=== PATIENT | female | born 1960 | race Caucasian/White ===

== ENCOUNTER 2024-01-29 12:09 | Inpatient (IN) | payer OTHER ==
--- NOTE | 2024-01-29 12:31 | ED ---
SOB HPI - General Stated Complaint: SOB Time Seen by Provider: 01/29/24 12:10 Source: patient, EMS, RN notes reviewed, old records reviewed Mode of arrival: EMS Limitations: no limitations - History of Present Illness Initial Comments: 63-year-old female with a recent hospitalization at [facility] who has a history of diabetes COPD is a half a pack a day smoker has a chronic indwelling Horn catheter at this time who presents from home with complaints of shortness of breath that started last night she has a difficult time ambulating she states she has basically been sitting in her chair since being released from the hospital earlier this week. She had suffered frequent falls the states she has some fractures in her back she denies any overt fevers chills or sweats any dysuria any hematuria she does have decreased oral intake. No cough at this time and again no fevers chills or sweats reported no phlegm production. MD Complaint: shortness of breath - Related Data Home Medications Medication Instructions Recorded Confirmed Acetaminophen Tab [Tylenol] 650 mg PO Q6H PRN 01/29/24 01/29/24 Amoxic-Pot Clav 500-125 mg 1 tab PO Q8H 01/29/24 01/29/24 [Augmentin 500-125 mg] Budesonide/Formoterol Fumarate 2 puff INHALATION RT-BID 01/29/24 01/29/24 [Symbicort 160-4.5 Mcg Inhaler] Escitalopram [Lexapro] 10 mg PO DAILY 01/29/24 01/29/24 Fluconazole 200 mg PO DAILY 01/29/24 01/29/24 Insulin Glargine,Hum.rec.anlog 15 units SQ HS 01/29/24 01/29/24 [Lantus Solostar Pen] Insulin Lispro [Insulin Lispro 5 units SQ TID-W/MEALS 01/29/24 01/29/24 Kwikpen U-100] Lactobacillus Rhamnosus GG 1 cap PO BID 01/29/24 01/29/24 [Culturelle] Melatonin 3 mg PO HS PRN 01/29/24 01/29/24 Montelukast [Singulair] 10 mg PO HS 01/29/24 01/29/24 Nicotine 14Mg/24Hr Patch [Habitrol 1 patch TRANSDERM DAILY 01/29/24 01/29/24 14Mg/24Hr Patch] Pioglitazone HCl 15 mg PO DAILY 01/29/24 01/29/24 amLODIPine [Norvasc] 5 mg PO BID 01/29/24 01/29/24 guaiFENesin [guaiFENesin ER] 600 mg PO BID 01/29/24 01/29/24 oxyCODONE-APAP 7.5-325MG [Percocet 1 tab PO TID PRN 01/29/24 01/29/24 7.5-325 mg] Allergies Allergy/AdvReac Type Severity Reaction Status Date / Time No Known Allergies Allergy Verified 01/29/24 12:57 Review of Systems ROS Statement: Those systems with pertinent positive or pertinent negative responses have been documented in the HPI. ROS Other: All systems not noted in ROS Statement are negative. Past Medical History Past Medical History: COPD, Diabetes Mellitus, Hyperlipidemia, Hypertension History of Any Multi-Drug Resistant Organisms: None Reported Past Surgical History: Adenoidectomy, Hysterectomy, Tubal Ligation Additional Past Surgical History / Comment(s): 2 tumors removals Past Psychological History: Depression Smoking Status: Current every day smoker Past Alcohol Use History: None Reported Past Drug Use History: None Reported General Exam - General Exam Comments Initial Comments: This is a well-developed frail-appearing female who is awake alert oriented x 4 Limitations: no limitations General appearance: alert, anxious Head exam: Present: atraumatic, normocephalic, normal inspection Eye exam: Present: normal appearance, PERRL, EOMI. Absent: scleral icterus, conjunctival injection, periorbital swelling ENT exam: Present: mucous membranes dry Neck exam: Present: normal inspection, full ROM, other (No stridor JVD or bruits). Absent: tenderness, meningismus, lymphadenopathy Respiratory exam: Present: chest wall tenderness (Palpation along the right costal sternal margin with no step-off or crepitation), decreased breath sounds. Absent: respiratory distress, wheezes, rales, rhonchi, stridor Cardiovascular Exam: Present: regular rate, normal rhythm, normal heart sounds. Absent: systolic murmur, diastolic murmur, rubs, gallop, clicks GI/Abdominal exam: Present: soft, normal bowel sounds. Absent: distended, tenderness, guarding, rebound, rigid, bruit, pulsatile mass External exam: Present: other (Indwelling Horn catheter in place urine appears to be hari clear in the bag somewhat cloudy proximal) Extremities exam: Present: full ROM, normal capillary refill. Absent: tenderness, pedal edema (Trace pedal edema), joint swelling, calf tenderness Back exam: Present: other (Kyphosis with some tenderness noted along the paraspi nous musculature in the lower thoracic region no step-off or crepitation no bruising) Neurological exam: Present: alert, oriented X3, CN II-XII intact Psychiatric exam: Present: normal affect, normal mood Skin exam: Present: warm, dry, intact, normal color. Absent: rash Course Vital Signs 01/29/24 01/29/24 01/29/24 12:15 12:30 13:15 Temperature 97.6 F Pulse Rate 99 92 Respiratory 20 24 20 Rate Blood Pressure 142/82 139/94 O2 Sat by Pulse 84 L 99 Oximetry 01/29/24 01/29/24 01/29/24 14:08 15:22 16:05 Temperature 97.9 F Pulse Rate 88 93 95 Respiratory 19 17 20 Rate Blood Pressure 159/87 162/94 144/92 O2 Sat by Pulse 97 96 95 Oximetry 01/29/24 01/29/24 16:13 16:21 Temperature Pulse Rate 98 93 Respiratory Rate Blood Pressure O2 Sat by Pulse Oximetry - Reevaluation(s) Reevaluation #1: 01/29/24 16:38 Patient did feel much improved after nebulizer treatment. Medical Decision Making - Medical Decision Making I did discuss the findings with the patient and with Dr. Lloyd. The patient does demonstrate evidence of COPD exacerbation hypoxemia dehydration and failure to thrive and pleural effusions. Also some evidence of UTI the patient currently is on antibiotics. Patient will be admitted. Was pt. sent in by a medical professional or institution (, PA, HAND RIGGER, urgent care, hospital, or half-way...) When possible be specific @ -Medics upon arrival Did you speak to anyone other than the patient for history (EMS, parent, family, police, friend...)? What history was obtained from this source @ -Paramedics upon arrival Did you review nursing and triage notes (agree or disagree)? Why? @ -I reviewed and agree with nursing and triage notes Were old charts reviewed (outside hosp., previous admission, EMS record, old EKG, old radiological studies, urgent care reports/EKG's, half-way records)? Report findings @ -Old charts were reviewed Differential Diagnosis (chest pain, altered mental status, abdominal pain women, abdominal pain men, vaginal bleeding, weakness, fever, dyspnea, syncope, headache, dizziness, GI bleed, back pain, seizure, CVA, palpatations, mental health, musculoskeletal)? @ -Dyspnea, chest pain EKG interpreted by me (3pts min.). @ -As above EKG interpreted by me sinus rhythm 95 MT interval 143 QRS duration 89 QT/QTc 343/395 low voltage no acute ST-T wave changes X-rays interpreted by me (1pt min.). @ -Right pleural effusion interpreted by me CT interpreted by me (1pt min.). @ -Bilateral pleural effusions interpreted by me U/S interpreted by me (1pt. min.). @ -None done What testing was considered but not performed or refused? (CT, X-rays, U/S, labs)? Why? @ -None What meds were considered but not given or refused? Why? @ -None Did you discuss the management of the patient with other professionals (professionals i.e. , PA, HAND RIGGER, lab, RT, psych nurse, social group worker, ct manager, teacher, parole hearing officer, case management specialist)? Give summary @ -Dr. Lloyd Was smoking cessation discussed for >3mins.? @ -No Was critical care preformed (if so, how long)? @ -No Were there social determinants of health that impacted care today? How? (Homelessness, low income, unemployed, alcoholism, drug addiction, transportation, low edu. Level, literacy, decrease access to med. care, long term, rehab)? @ -Patient lives alone Was there de-escalation of care discussed even if they declined (Discuss DNR or withdrawal of care, Hospice)? DNR status @ -No What co-morbidities impacted this encounter? (DM, HTN, Smoking, COPD, CAD, Cancer, CVA, ARF, Chemo, Hep., AIDS, mental health diagnosis, sleep apnea, morbid obesity)? @ -COPD, chronic indwelling Horn catheter, smoking Was patient admitted / discharged? Hospital course, mention meds given and route, prescriptions, significant lab abnormalities, going to OR and other pertinent info. @ -Hospital course the patient was admitted for inpatient treatment of COPD exacerbation dehydration pleural effusions Undiagnosed new problem with uncertain prognosis? @ -No Drug Therapy requiring intensive monitoring for toxicity (Heparin, Nitro, Insulin, Cardizem)? @ -No Were any procedures done? @ -No Diagnosis/symptom? @ -Acute COPD exacerbation, hypoxemia, failure to thrive, dehydration, pleural effusions, UTI Acute, or Chronic, or Acute on Chronic? @ -Acute on chronic Uncomplicated (without systemic symptoms) or Complicated (systemic symptoms)? @ -Complicated Side effects of treatment? @ -No Exacerbation, Progression, or Severe Exacerbation? @ -Masturbation Poses a threat to life or bodily function? How? (Chest pain, [place], ND, pneumonia, PE, COPD, DKA, ARF, appy, cholecystitis, CVA, Diverticulitis, Homicidal, Suicidal, threat to staff... and all critical care pts) @ -Tensional - Lab Data Result diagrams: 01/29/24 12:40 01/29/24 12:40 Lab Results 01/29/24 01/29/24 01/29/24 Range/Units 12:39 12:40 12:40 WBC 15.0 H (3.8-10.6) k/uL RBC 4.59 (3.80-5.40) m/uL Hgb 14.7 (11.4-16.0) gm/dL Hct 45.0 (34.0-46.0) % MCV 98.2 (80.0-100.0) fL MCH 32.1 (25.0-35.0) pg MCHC 32.7 (31.0-37.0) g/dL RDW 13.4 (11.5-15.5) % Plt Count 582 H (150-450) k/uL MPV 7.8 Neutrophils % 87 % Lymphocytes % 9 % Monocytes % 3 % Eosinophils % 0 % Basophils % 0 % Neutrophils # 13.1 H (1.3-7.7) k/uL Lymphocytes # 1.3 (1.0-4.8) k/uL Monocytes # 0.4 (0-1.0) k/uL Eosinophils # 0.1 (0-0.7) k/uL Basophils # 0.1 (0-0.2) k/uL PT 10.9 (10.0-12.5) sec INR 1.0 (<1.2) APTT 22.0 (22.0-30.0) sec D-Dimer 5.45 H (<0.60) mg/L FEU Sodium (137-145) mmol/L Potassium (3.5-5.1) mmol/L Chloride (98-107) mmol/L Carbon Dioxide (22-30) mmol/L Anion Gap mmol/L BUN (7-17) mg/dL Creatinine (0.52-1.04) mg/dL Est GFR (CKD-EPI)AfAm (>60 ml/min/1.73 sqM) Est GFR (CKD-EPI)NonAf (>60 ml/min/1.73 sqM) Glucose (74-99) mg/dL POC Glucose (mg/dL) 326 H (70-110) mg/dL POC Glu Accelerator Operator ID Carissa George Plasma Lactic Acid Isaac (0.7-2.0) mmol/L Calcium (8.4-10.2) mg/dL Magnesium (1.6-2.3) mg/dL Total Bilirubin (0.2-1.3) mg/dL AST (14-36) U/L ALT (4-34) U/L Alkaline Phosphatase (38-126) U/L Troponin I (0.000-0.034) ng/mL NT-Pro-B Natriuret Pep pg/mL Total Protein (6.3-8.2) g/dL Albumin (3.5-5.0) g/dL Urine Color Urine Appearance (Clear) Urine pH (5.0-8.0) Ur Specific [place] (1.001-1.035) Urine Protein (Negative) Urine Glucose (UA) (Negative) Urine Ketones (Negative) Urine Blood (Negative) Urine Nitrite (Negative) Urine Bilirubin (Negative) Urine Urobilinogen (<2.0) mg/dL Ur Leukocyte Esterase (Negative) Urine RBC (0-5) /hpf Urine WBC (0-5) /hpf Urine Mucus (None) /hpf Urine Yeast (Budding) (None) /hpf Influenza Type A (PCR) (Not Detectd) Influenza Type B (PCR) (Not Detectd) RSV (PCR) (Not Detectd) SARS-CoV-2 (PCR) (Not Detectd) 01/29/24 01/29/24 01/29/24 Range/Units 12:40 12:40 12:40 WBC (3.8-10.6) k/uL RBC (3.80-5.40) m/uL Hgb (11.4-16.0) gm/dL Hct (34.0-46.0) % MCV (80.0-100.0) fL MCH (25.0-35.0) pg MCHC (31.0-37.0) g/dL RDW (11.5-15.5) % Plt Count (150-450) k/uL MPV Neutrophils % % Lymphocytes % % Monocytes % % Eosinophils % % Basophils % % Neutrophils # (1.3-7.7) k/uL Lymphocytes # (1.0-4.8) k/uL Monocytes # (0-1.0) k/uL Eosinophils # (0-0.7) k/uL Basophils # (0-0.2) k/uL PT (10.0-12.5) sec INR (<1.2) APTT (22.0-30.0) sec D-Dimer (<0.60) mg/L FEU Sodium 133 L (137-145) mmol/L Potassium 4.5 (3.5-5.1) mmol/L Chloride 102 (98-107) mmol/L Carbon Dioxide 27 (22-30) mmol/L Anion Gap 4 mmol/L BUN 15 (7-17) mg/dL Creatinine 0.24 L (0.52-1.04) mg/dL Est GFR (CKD-EPI)AfAm >90 (>60 ml/min/1.73 sqM) Est GFR (CKD-EPI)NonAf >90 (>60 ml/min/1.73 sqM) Glucose 320 H (74-99) mg/dL POC Glucose (mg/dL) (70-110) mg/dL POC Glu Accelerator Operator ID Plasma Lactic Acid Isaac 1.6 (0.7-2.0) mmol/L Calcium 8.8 (8.4-10.2) mg/dL Magnesium 1.8 (1.6-2.3) mg/dL Total Bilirubin 0.6 (0.2-1.3) mg/dL AST 32 (14-36) U/L ALT 33 (4-34) U/L Alkaline Phosphatase 421 H (38-126) U/L Troponin I <0.012 (0.000-0.034) ng/mL NT-Pro-B Natriuret Pep 161 pg/mL Total Protein 5.4 L (6.3-8.2) g/dL Albumin 2.7 L (3.5-5.0) g/dL Urine Color Urine Appearance (Clear) Urine pH (5.0-8.0) Ur Specific [place] (1.001-1.035) Urine Protein (Negative) Urine Glucose (UA) (Negative) Urine Ketones (Negative) Urine Blood (Negative) Urine Nitrite (Negative) Urine Bilirubin (Negative) Urine Urobilinogen (<2.0) mg/dL Ur Leukocyte Esterase (Negative) Urine RBC (0-5) /hpf Urine WBC (0-5) /hpf Urine Mucus (None) /hpf Urine Yeast (Budding) (None) /hpf Influenza Type A (PCR) (Not Detectd) Influenza Type B (PCR) (Not Detectd) RSV (PCR) (Not Detectd) SARS-CoV-2 (PCR) (Not Detectd) 01/29/24 01/29/24 Range/Units 12:40 13:25 WBC (3.8-10.6) k/uL RBC (3.80-5.40) m/uL Hgb (11.4-16.0) gm/dL Hct (34.0-46.0) % MCV (80.0-100.0) fL MCH (25.0-35.0) pg MCHC (31.0-37.0) g/dL RDW (11.5-15.5) % Plt Count (150-450) k/uL MPV Neutrophils % % Lymphocytes % % Monocytes % % Eosinophils % % Basophils % % Neutrophils # (1.3-7.7) k/uL Lymphocytes # (1.0-4.8) k/uL Monocytes # (0-1.0) k/uL Eosinophils # (0-0.7) k/uL Basophils # (0-0.2) k/uL PT (10.0-12.5) sec INR (<1.2) APTT (22.0-30.0) sec D-Dimer (<0.60) mg/L FEU Sodium (137-145) mmol/L Potassium (3.5-5.1) mmol/L Chloride (98-107) mmol/L Carbon Dioxide (22-30) mmol/L Anion Gap mmol/L BUN (7-17) mg/dL Creatinine (0.52-1.04) mg/dL Est GFR (CKD-EPI)AfAm (>60 ml/min/1.73 sqM) Est GFR (CKD-EPI)NonAf (>60 ml/min/1.73 sqM) Glucose (74-99) mg/dL POC Glucose (mg/dL) (70-110) mg/dL POC Glu Accelerator Operator ID Plasma Lactic Acid Isaac (0.7-2.0) mmol/L Calcium (8.4-10.2) mg/dL Magnesium (1.6-2.3) mg/dL Total Bilirubin (0.2-1.3) mg/dL AST (14-36) U/L ALT (4-34) U/L Alkaline Phosphatase (38-126) U/L Troponin I (0.000-0.034) ng/mL NT-Pro-B Natriuret Pep pg/mL Total Protein (6.3-8.2) g/dL Albumin (3.5-5.0) g/dL Urine Color Yellow Urine Appearance Turbid H (Clear) Urine pH 6.0 (5.0-8.0) Ur Specific [place] 1.030 (1.001-1.035) Urine Protein 1+ H (Negative) Urine Glucose (UA) 4+ H (Negative) Urine Ketones 1+ H (Negative) Urine Blood Moderate H (Negative) Urine Nitrite Negative (Negative) Urine Bilirubin Negative (Negative) Urine Urobilinogen <2.0 (<2.0) mg/dL Ur Leukocyte Esterase Large H (Negative) Urine RBC >182 H (0-5) /hpf Urine WBC >182 H (0-5) /hpf Urine Mucus Many H (None) /hpf Urine Yeast (Budding) Many H (None) /hpf Influenza Type A (PCR) Not Detected (Not Detectd) Influenza Type B (PCR) Not Detected (Not Detectd) RSV (PCR) Not Detected (Not Detectd) SARS-CoV-2 (PCR) Not Detected (Not Detectd) Disposition Clinical Impression: Acute exacerbation of chronic obstructive pulmonary disease, Hypoxemia, Urinary tract infection, Pleural effusion, Dehydration, Failure to thrive Disposition: ADMITTED IP TO THIS HOSP Condition: Fair Referrals: Cory Lloyd MD [Primary Care Provider] - 1-2 days Time of Disposition: 16:00 Decision Date: 01/29/24 Decision Time: 16:00
[2024-01-29 12:44] LABS: Glucose,Whole Blood 326 mg/dL (70-110)
[2024-01-29 12:46] LABS: Basophils # (A) 0.1 k/uL (0-0.2); Basophils % (A) 0 %; Eosinophils # (A) 0.1 k/uL (0-0.7); Eosinophils % (A) 0 %; HGB 14.7 gm/dL (11.4-16.0); Lymphocytes # (A) 1.3 k/uL (1.0-4.8); Lymphocytes % (A) 9 %; MCH 32.1 pg (25.0-35.0); MCHC 32.7 g/dL (31.0-37.0); MCV 98.2 fL (80.0-100.0); Mean Platelet Volume 7.8; Monocytes # (A) 0.4 k/uL (0-1.0); Monocytes % (A) 3 %; Neutrophils # (A) 13.1 k/uL (1.3-7.7); Neutrophils % (A) 87 %; Platelet Count 582 k/uL (150-450); RBC 4.59 m/uL (3.80-5.40); RDW 13.4 % (11.5-15.5)
[2024-01-29 12:57] LABS: ALT 33 U/L (4-34); AST 32 U/L (14-36); African American GFR (CKD) >90 (>60 ml/min/1.73 sqM); Albumin 2.7 g/dL (3.5-5.0); Alkaline Phosphatase 421 U/L (38-126); Anion Gap 4 mmol/L; Blood Urea Nitrogen 15 mg/dL (7-17); Calcium 8.8 mg/dL (8.4-10.2); Carbon Dioxide 27 mmol/L (22-30); Chloride 102 mmol/L (98-107); Glucose 320 mg/dL (74-99); Magnesium 1.8 mg/dL (1.6-2.3); Non-African American GFR(CKD) >90 (>60 ml/min/1.73 sqM); Potassium 4.5 mmol/L (3.5-5.1); Sodium 133 mmol/L (137-145); Total Bilirubin 0.6 mg/dL (0.2-1.3); Total Protein 5.4 g/dL (6.3-8.2)
[2024-01-29 13:05] LABS: NT-Pro-B-Type Natriuretic Pept 161 pg/mL
[2024-01-29 13:09] LABS: Prothrombin Time 10.9 sec (10.0-12.5)
--- NOTE | 2024-01-29 13:14 | XR ---
EXAMINATION TYPE: XR chest 2V DATE OF EXAM: 01/29/2024 COMPARISON: NONE HISTORY: Difficulty breathing TECHNIQUE: Frontal and lateral views of the chest are obtained. FINDINGS: There is a moderate right pleural effusion. The left lung is clear. There is no pneumothorax. The heart and pulmonary vasculature are normal. The osseous structures are intact. IMPRESSION: Moderate right pleural effusion.
[2024-01-29] MEDS: SODIUM CHLORIDE 0.9% 1,000 ML IV STA (13:27)
--- NOTE | 2024-01-29 14:19 | CT ---
CTA CHEST EXAMINATION TYPE: CT angio chest DATE OF EXAM: 01/29/2024 INDICATION: Elevated d-dimer, SOB CT DLP: 177.2 mGycm, Automated exposure control for dose reduction was used. CONTRAST: Patient injected with 100 mL of Isovue 370. COMPARISON: None TECHNIQUE: CT of the chest is performed on a spiral scan at 2 mm thick sections. Study is performed with intravenous contrast timed for evaluation for pulmonary embolism. This will limit additional po rtions of the evaluation. 3-D MIP images reconstructed by the technologist are reviewed on the compu ter in the coronal and sagittal planes. FINDINGS: No persistent filling defects are evident to suggest an acute pulmonary embolism. No mediastinal or hilar adenopathy enlarged by CT criteria is evident. The ascending aorta diameter at the level of the main pulmonary artery is 3.2 cm. The main pulmonary artery diameter at the bifurcation is 2.8 cm. Some minimal fluid is at the right apex. There is some mild fluid at the right lateral lung base. A l arge consolidations are at the right dependent lung base is smaller left pleural effusion and adjacen t consolidation. Findings are likely related to compressive atelectasis. Pneumonia could be considere d. Underlying mass is not excluded. Follow up exams can be performed Limited CT sections were through the upper abdomen. Upper abdomen appears unremarkable. IMPRESSION: 1. No acute embolism. 2. Small bilateral pleural effusions with adjacent atelectasis. Correlate for pneumonia. Consider fol low-up examination to document clearing.
[2024-01-29 14:27] LABS: Appearance,Urine Turbid (Clear); Bilirubin,Urine Negative (Negative); Blood,Urine Moderate (Negative); Budding Yeast,Urine Many /hpf; Color,Urine Yellow; Glucose,Urine (UA) 4+ (Negative); Ketones,Urine 1+ (Negative); Leukocyte Esterase,Urine Large (Negative); Mucus,Urine Many /hpf; Nitrite,Urine Negative (Negative); Protein,Urine 1+ (Negative); RBC,Urine >182 /hpf (0-5); Urobilinogen,Urine <2.0 mg/dL (<2.0); WBC,Urine >182 /hpf (0-5)
[2024-01-29] MEDS: IPRATROPIUM-ALBUTEROL 3 ML NEB INHALATION STA (16:13)
[2024-01-29] MEDS ORDERED: NALOXONE 0.4 MG/ML 1 ML VIAL IVP PRN (16:44)
[2024-01-29] MEDS: AMOXIC-POT CLAV 500-125 MG 1 EACH TAB PO SCH (17:33)
[2024-01-29] MEDS: INSULIN ASPART (NovoLOG) 100 UNIT/ML VIAL SQ SCH (17:34)
[2024-01-29] MEDS: methylPREDNISolone SOD SUCCI 125 MG/2 ML VIAL IV STA (17:52)
[2024-01-29] MEDS: oxyCODONE-APAP 7.5-325MG 1 EACH TAB PO PRN (18:27)
[2024-01-29] MEDS: IPRATROPIUM-ALBUTEROL 3 ML NEB INHALATION SCH (19:38)
[2024-01-29] MEDS: SYMBICORT 160-4.5 MCG INHALER INHALATION SCH (19:38)
[2024-01-29 20:45] LABS: Glucose,Whole Blood 384 mg/dL (70-110)
[2024-01-29] MEDS: INSULIN DETEMIR (LEVEMIR) 100 UNIT/ML SYR SQ SCH (20:55)
[2024-01-29] MEDS: MELATONIN 3 MG TABLET PO PRN (20:55)
[2024-01-29] MEDS: LACTOBACILLUS ACIDOPHILUS/PECT 1 EACH CAPSULE PO SCH (20:55)
[2024-01-29] MEDS: MONTELUKAST 10 MG TAB PO SCH (20:55)
[2024-01-29] MEDS: guaiFENesin 600 MG TABLET.ER PO SCH (20:55)
[2024-01-29] MEDS: amLODIPine 5 MG TAB PO SCH (20:55)
[2024-01-29] MEDS: PIPERACILLIN-TAZOBACTAM 3.375 GM in SODIUM CHLORIDE 0.9% 100 ML IVPB SCH (20:56)
[2024-01-30] MEDS: methylPREDNISolone SOD SUCCI 125 MG/2 ML VIAL IV SCH (00:07)
--- NOTE | 2024-01-30 02:33 | HP ---
HISTORY AND PHYSICAL HISTORY OF PRESENT ILLNESS: 63-year-old female with recent hospitalization for diabetes, COPD, nicotine addiction, chronic indwelling Horn, shortness of breath, difficulty time ambulating, in a chair since being home, some fractures in her back, decreased oral intake. No fever or chills. HOME MEDICINES: 1. Augmentin q.8 hours. 2. Symbicort. 3. Lexapro. 4. Fluconazole. 5. Lantus insulin. 6. Singulair. 7. Nicotine patch. 8. Pioglitazone. 9. Amlodipine. 10.Oxycodone. 11.Guanfacine. 12.Lactobacillus. 13.Melatonin. PAST MEDICAL HISTORY: COPD, diabetes mellitus, hypertension, dyslipidemia. REVIEW OF SYSTEMS: 14-point review of systems otherwise negative. SOCIAL HISTORY: Current everyday smoker. PHYSICAL EXAMINATION: VITAL SIGNS: Temp 97.6, pulse 90 to 92, respiratory rate 18 to 24, blood pressure 140s to 160s over 80s to 90s, O2 saturation 84 on admission, 99 currently on 2 L. GENERAL: She is thin, cachectic. CARDIOVASCULAR: S1, S2. LUNGS: Scattered rhonchi and wheeze. GI: Soft. HEMATOLOGY: Negative Homans. PSYCH: Fair mood and affect. NEUROLOGIC: Cranial nerves intact. Pupils equal, round, reactive. LABORATORY DATA: CTA is negative for PE leukocytosis. White count 15, hemoglobin 14.7. Sodium 133, potassium 4.5, sugar 300. ProBNP 161. Has large UTI, large white cells. ASSESSMENT: Acute chronic obstructive pulmonary disease exacerbation, hypoxemia, urinary tract infection, pleural effusion, dehydration, failure to thrive. PLAN: Continue current treatment. Started her on IV antibiotics, fluid replacement. Prognosis is guarded. Please see further orders. MMODL / IJN: [id number] /
[2024-01-30 06:28] LABS: Glucose,Whole Blood 239 mg/dL (70-110)
[2024-01-30] MEDS: FLUCONAZOLE 100 MG TAB PO SCH (08:55)
[2024-01-30] MEDS: NICOTINE 14MG/24HR PATCH TRANSDERM SCH (08:56)
[2024-01-30] MEDS: PIOGLITAZONE 15 MG TAB PO SCH (09:03)
[2024-01-30] MEDS: ESCITALOPRAM 10 MG TAB PO SCH (09:03)
[2024-01-30 09:24] LABS: Basophils # (A) 0.02 X 10*3/uL (0.00-0.10); Basophils % (A) 0.2 %; Eosinophils # (A) 0 X 10*3/uL (0.04-0.35); Eosinophils % (A) 0 %; HCT 39.8 % (37.2-46.3); HGB 13.2 g/dL (12.0-15.0); Lymphocytes # (A) 0.49 X 10*3/uL (0.90-5.00); Lymphocytes % (A) 4.2 %; MCH 31.8 pg (27.0-32.0); MCHC 33.2 g/dL (32.0-37.0); MCV 95.9 FL (80.0-97.0); Mean Platelet Volume 9.9 FL (9.5-12.2); Monocytes # (A) 0.05 X 10*3/uL (0.20-1.00); Monocytes % (A) 0.4 %; NRBC Per 100 WBC 0 X 10*3/uL (0.00-0.01); Neutrophils # (A) 10.99 X 10*3/uL (1.80-7.70); Neutrophils % (A) 94.8 %; Platelet Count 542 X 10*3/uL (140-440); RBC 4.15 X 10*6/uL (4.10-5.20); RDW 13.4 % (11.5-14.5)
[2024-01-30 09:41] LABS: ALT 25 U/L (8-44); AST 18 U/L (13-35); Albumin 3.1 g/dL (3.8-4.9); Albumin/Globulin Ratio 1.55 Ratio (1.60-3.17); Alkaline Phosphatase 390 U/L (41-126); BUN/Creat Ratio 35.25 Ratio (12.00-20.00); Blood Urea Nitrogen 14.1 mg/dL (9.0-27.0); Calcium 9.2 mg/dL (8.7-10.3); Carbon Dioxide 26.1 mmol/L (21.6-31.8); Chloride 102 mmol/L (96-109); Glucose 258 mg/dL (70-110); Potassium 4.6 mmol/L (3.5-5.5); Sodium 139 mmol/L (135-145); Total Bilirubin 0.3 mg/dL (0.3-1.2); Total Protein 5.1 g/dL (6.2-8.2)
[2024-01-30 11:09] LABS: Glucose,Whole Blood 270 mg/dL (70-110)
[2024-01-30] MEDS: PANTOPRAZOLE 40 MG TABLET PO SCH (12:06)
--- NOTE | 2024-01-30 13:21 | P.CNPUL ---
History of Present Illness Consult date: 01/30/24 Reason for consult: dyspnea, hypoxemia History of present illness: On 01/30/2024, the patient is being seen for shortness of breath. She is known to have COPD and diabetes mellitus and she is a chronic smoker. She has a chronic indwelling Horn catheter patient with a recent hospitalization at [facility]. She presented to us with worsening shortness of breath. The white cell count was 11 with a hemoglobin 13.2 and a platelet count of 542, normal electrolytes, normal renal function, UA was abnormal with many WBCs and budding yeast and a white cell count of 182. The patient is currently afebrile. The patient is hemodynamically stable and she is hypoxic currently 90s of oxygen by nasal cannula. Chest x-ray was done emergency department that showed moderate-sized right-sided pleural effusion. CT of the chest was also done which showed very limited effusion in the lung bases. The patient had significant atelectatic changes in the lower lobes bilaterally. No airspace disease or consolidation. No evidence of any pulmonary embolism. No evidence of any filling defects. Accordingly, the patient was hospitalized. She was started on Diflucan 20 mg p.o. daily. She was started on IV Zosyn and a pulmonary consultation was requested. Upon further questioning, it seems that the patient's health has been deteriorating over the past 1 year. The patient has lost considerable mount of weight. She has had issues with oropharyngeal thrush and she has not been able to take oral intake adequately and she has been meeting her caloric requirements. Such, the patient has not more than 50 pounds of weight. She had developed compression fractures. She has been feeling weak. Over the past 2 to 3 weeks, she has become essentially nonambulatory. As far as the Horn catheter, she claims that she has had urinary retention and the physicians at [facility] opted to keep the Horn catheter in place. The patient has been Bound/bedbound. She has developed a sacral decubitus ulcer stage II. She is weak, cachectic, malnourished, and remains debilitated at this point. The boyfriend was unable to take care of her at home. The visiting nurse made a recommendation for her to come into the [facility]. She is a chronic smoker. She has COPD. Maintained on Symbicort. No home O2. Review of Systems Constitutional: Denies chills, Denies fever Eyes: denies as per HPI, denies blurred vision, denies bulging eye, denies decreased vision, denies diplopia, denies discharge, denies dry eye, denies irritation, denies itching, denies pain, denies photophobia, denies loss of peripheral vision, denies loss of vision, denies tunnel vision/blind spots Ears: deny: decreased hearing, ear discharge, earache, tinnitus Ears, nose, mouth and throat: Reports as per HPI Breasts: absent: as per HPI, change in shape, gynecomastia, masses, nipple discharge, pain, skin changes, swelling Cardiovascular: Reports decreased exercise tolerance, Reports dyspnea on exertion Respiratory: Reports dyspnea Gastrointestinal: Reports as per HPI Genitourinary: Reports as per HPI Menstruation: Reports as per HPI Musculoskeletal: Reports as per HPI Musculoskeletal: absent: ankle pain, ankle stiffness, ankle swelling Integumentary: Reports as per HPI Neurological: Reports as per HPI Psychiatric: Reports as per HPI Endocrine: Reports as per HPI Hematologic/Lymphatic: Reports as per HPI Allergic/Immunologic: Reports as per HPI Past Medical History Past Medical History: COPD, Diabetes Mellitus, Hyperlipidemia, Hypertension History of Any Multi-Drug Resistant Organisms: None Reported Past Surgical History: Adenoidectomy, Hysterectomy, Tubal Ligation Additional Past Surgical History / Comment(s): 2 tumors removals Smoking Status: Current every day smoker Medications and Allergies Home Medications Medication Instructions Recorded Confirmed Type Acetaminophen Tab [Tylenol] 650 mg PO Q6H PRN 01/29/24 01/29/24 History Amoxic-Pot Clav 500-125 mg 1 tab PO Q8H 01/29/24 01/29/24 History [Augmentin 500-125 mg] Budesonide/Formoterol Fumarate 2 puff INHALATION RT-BID 01/29/24 01/29/24 History [Symbicort 160-4.5 Mcg Inhaler] Escitalopram [Lexapro] 10 mg PO DAILY 01/29/24 01/29/24 History Fluconazole 200 mg PO DAILY 01/29/24 01/29/24 History Insulin Glargine,Hum.rec.anlog 15 units SQ HS 01/29/24 01/29/24 History [Lantus Solostar Pen] Insulin Lispro [Insulin Lispro 5 units SQ TID-W/MEALS 01/29/24 01/29/24 History Kwikpen U-100] Lactobacillus Rhamnosus GG 1 cap PO BID 01/29/24 01/29/24 History [Culturelle] Melatonin 3 mg PO HS PRN 01/29/24 01/29/24 History Montelukast [Singulair] 10 mg PO HS 01/29/24 01/29/24 History Nicotine 14Mg/24Hr Patch [Habitrol 1 patch TRANSDERM DAILY 01/29/24 01/29/24 History 14Mg/24Hr Patch] Pioglitazone HCl 15 mg PO DAILY 01/29/24 01/29/24 History amLODIPine [Norvasc] 5 mg PO BID 01/29/24 01/29/24 History guaiFENesin [guaiFENesin ER] 600 mg PO BID 01/29/24 01/29/24 History oxyCODONE-APAP 7.5-325MG [Percocet 1 tab PO TID PRN 01/29/24 01/29/24 History 7.5-325 mg] Allergies Allergy/AdvReac Type Severity Reaction Status Date / Time No Known Allergies Allergy Verified 01/29/24 12:57 Physical Exam Vitals: Vital Signs Temp Pulse Pulse Resp BP BP Pulse Ox 01/30/24 12:26 90 01/30/24 12:14 88 95 01/30/24 09:15 90 01/30/24 09:06 94 86 L 01/30/24 07:46 97.6 F 84 16 152/78 91 L 01/30/24 01:00 97.5 F L 87 14 148/78 93 L 01/29/24 20:09 98.3 F 91 16 148/77 94 L 01/29/24 19:47 93 01/29/24 19:39 92 01/29/24 19:08 93 16 152/91 95 01/29/24 18:19 98.0 F 90 20 151/91 93 L 01/29/24 17:00 90 18 148/90 94 L 01/29/24 16:21 93 01/29/24 16:13 98 01/29/24 16:05 97.9 F 95 20 144/92 95 01/29/24 15:22 93 17 162/94 96 01/29/24 14:08 88 19 159/87 97 01/29/24 13:15 92 20 139/94 99 01/29/24 12:30 24 Intake and Output 01/29/24 01/30/24 01/30/24 22:59 06:59 14:59 Output Total 550 750 Balance -550 -750 Output: Urine 550 750 Other: Voiding Method Indwelling Catheter Indwelling Catheter Weight 47.627 kg This is a well-developed frail-appearing female who is awake alert oriented x 4, currently on 90 days of oxygen by nasal cannula General appearance: alert, anxious Head exam: Present: atraumatic, normocephalic, normal inspection Eye exam: Present: normal appearance, PERRL, EOMI. Absent: scleral icterus, conjunctival injection, periorbital swelling ENT exam: Present: mucous membranes dry Neck exam: Present: normal inspection, full ROM, other (No stridor JVD or bruits). Absent: tenderness, meningismus, lymphadenopathy Respiratory exam: Present: chest wall tenderness (Palpation along the right costal sternal margin with no step-off or crepitation), decreased breath sounds. Absent: respiratory distress, wheezes, rales, rhonchi, stridor Cardiovascular Exam: Present: regular rate, normal rhythm, normal heart sounds. Absent: systolic murmur, diastolic murmur, rubs, gallop, clicks GI/Abdominal exam: Present: soft, normal bowel sounds. Absent: distended, tenderness, guarding, rebound, rigid, bruit, pulsatile mass External exam: Present: other (Indwelling Horn catheter in place urine appears to be hari clear in the bag somewhat cloudy proximal) Extremities exam: Present: full ROM, normal capillary refill. Absent: tenderness, pedal edema (Trace pedal edema), joint swelling, calf tenderness Back exam: Present: other (Kyphosis with some tenderness noted along the paraspinous musculature in the lower thoracic region no step-off or crepitation no bruising Neurological exam: Present: alert, oriented X3, CN II-XII intact Psychiatric exam: Present: normal affect, normal mood Skin exam: Present: warm, dry, intact, normal color. Absent: rash Results - Laboratory Findings CBC and BMP: 01/30/24 05:14 01/30/24 05:14 PT/INR, D-dimer PT 10.9 sec (10.0-12.5) 01/29/24 12:40 INR 1.0 (<1.2) 01/29/24 12:40 D-Dimer 5.45 mg/L FEU (<0.60) H 01/29/24 12:40 Abnormal lab findings: Abnormal Labs 01/29/24 01/29/24 01/29/24 12:39 12:40 12:40 WBC 15.0 H Plt Count 582 H Immature Gran # Neutrophils # 13.1 H Lymphocytes # Monocytes # Eosinophils # D-Dimer 5.45 H Sodium Creatinine BUN/Creatinine Ratio Glucose POC Glucose (mg/dL) 326 H Alkaline Phosphatase Total Protein Albumin Albumin/Globulin Ratio Urine Appearance Urine Protein Urine Glucose (UA) Urine Ketones Urine Blood Ur Leukocyte Esterase Urine RBC Urine WBC Urine Mucus Urine Yeast (Budding) 01/29/24 01/29/24 01/29/24 12:40 13:25 20:43 WBC Plt Count Immature Gran # Neutrophils # Lymphocytes # Monocytes # Eosinophils # D-Dimer Sodium 133 L Creatinine 0.24 L BUN/Creatinine Ratio Glucose 320 H POC Glucose (mg/dL) 384 H Alkaline Phosphatase 421 H Total Protein 5.4 L Albumin 2.7 L Albumin/Globulin Ratio Urine Appearance Turbid H Urine Protein 1+ H Urine Glucose (UA) 4+ H Urine Ketones 1+ H Urine Blood Moderate H Ur Leukocyte Esterase Large H Urine RBC >182 H Urine WBC >182 H Urine Mucus Many H Urine Yeast (Budding) Many H 01/30/24 01/30/24 01/30/24 05:14 05:14 06:27 WBC 11.60 H Plt Count 542 H Immature Gran # 0.05 H Neutrophils # 10.99 H Lymphocytes # 0.49 L Monocytes # 0.05 L Eosinophils # 0 L D-Dimer Sodium Creatinine 0.4 L BUN/Creatinine Ratio 35.25 H Glucose 258 H POC Glucose (mg/dL) 239 H Alkaline Phosphatase 390 H Total Protein 5.1 L Albumin 3.1 L Albumin/Globulin Ratio 1.55 L Urine Appearance Urine Protein Urine Glucose (UA) Urine Ketones Urine Blood Ur Leukocyte Esterase Urine RBC Urine WBC Urine Mucus Urine Yeast (Budding) 01/30/24 11:08 WBC Plt Count Immature Gran # Neutrophils # Lymphocytes # Monocytes # Eosinophils # D-Dimer Sodium Creatinine BUN/Creatinine Ratio Glucose POC Glucose (mg/dL) 270 H Alkaline Phosphatase Total Protein Albumin Albumin/Globulin Ratio Urine Appearance Urine Protein Urine Glucose (UA) Urine Ketones Urine Blood Ur Leukocyte Esterase Urine RBC Urine WBC Urine Mucus Urine Yeast (Budding) - Diagnostic Findings Chest x-ray: image reviewed CT scan - chest: image reviewed Assessment and Plan Plan: Acute hypoxic respiratory failure currently on 9 L Of oxygen by nasal cannula. CTA of the chest shows no evidence of any pulmonary embolism. Extensive atelectatic changes in lung base bilaterally right more than left with small pleural effusions. Consider aspiration. Currently on IV Zosyn. COPD Diabetes mellitus type 2 Hypertension Hyperlipidemia Chronic urinary retention maintained on a chronic indwelling Horn catheter Weight loss, unexplained Compression fracture of the spine Stage II sacral decub ulcer Significant debility and impaired performance and functional status and the patient is currently unable to ambulate and she has been essentially chair/bedb ound for the past month or so. Frequent falls, hospitalized at [facility]. Plan Titrate oxygen flow to maintain saturation above 90%, currently on 9 L Continue IV Zosyn With the patient on DuoNeb nebulized treatments [id number] Continue Diflucan Replace the Horn catheter and obtain a urine analysis and urine cultures Dietary consultation Wound care and the patient will be given an Optifoam Resume home medications Obtain records from the [facility] as part of the workup that has been done. Obviously there is something systemic causing this patient to be quite debilitated and losing weight. May be reasonable to scan her abdomen and pelvis if this has not been done recently. Will follow
[2024-01-30 14:10] LABS: Appearance,Urine Turbid (Clear); Bilirubin,Urine Negative (Negative); Blood,Urine Small (Negative); Budding Yeast,Urine Many /hpf; Color,Urine Colorless; Glucose,Urine (UA) 4+ (Negative); Ketones,Urine Negative (Negative); Leukocyte Esterase,Urine Large (Negative); Mucus,Urine Rare /hpf; Nitrite,Urine Negative (Negative); PH, Urine 6.5 (5.0-8.0); Protein,Urine Trace (Negative); RBC,Urine >182 /hpf (0-5); Urobilinogen,Urine <2.0 mg/dL (<2.0); WBC,Urine 66 /hpf (0-5)
[2024-01-30 16:25] LABS: Glucose,Whole Blood 358 mg/dL (70-110)
[2024-01-30] MEDS: BUDESONIDE 1 MG/2 ML NEBU INHALATION SCH (20:12)
[2024-01-30 20:53] LABS: Glucose,Whole Blood 494 mg/dL (70-110)
[2024-01-30] MEDS: INSULIN ASPART (NovoLOG) 100 UNIT/ML VIAL SQ SCH (21:21)
--- NOTE | 2024-01-30 23:04 | P.CONS ---
History of Present Illness - Reason for Consult Consult date: 01/30/24 UTI/HAP Requesting physician: Cory Lloyd - Chief Complaint Increasing shortness of breath x few days - History of Present Illness Patient is a 63-year-old female with a past medical history significant for diabetes mellitus hypertension hyperlipidemia COPD current everyday smoker, recent multiple admission to the [facility] treated for UTI subsequently the patient did have a fall at that facility leading to lumbar compression fracture and the patient seem to be bedridden since then has developed a pressure ulcer on the sacral area for the patient has been evaluated by the home care nurse patient was brought into the hospital yesterday afternoon to the ER with the patient complaining of increasing shortness of breath that apparently has been getting worse for a day or 2 patient denies having any chest pain she did have a cough not bring up any sputum some nausea but no vomiting no abdominal pain or diarrhea did have a indwelling Horn catheter that has been changed for about a month but was changing the hospital yesterday patient on presentation to the hospital was afebrile and no fever have recorded subsequently patient was not tachycardic hypotensive but hypoxic currently on 4 L nasal cannula oxygen patient did have vital of 15,000 with a left shift creatinine was normal electrolytes were normal liver enzymes are normal urine has been positive with cultures pending influenza RSV COVID testing was negative patient did have a chest x-ray moderate right effusion patient did have a CT angiogram of the chest no acute embolism small bilateral effusion with adjacent atelectasis correlate for pneumonia patient has been started on Zosyn infectious was consulted for further management of antibiotic therapy Review of Systems Positive point and negatives has been mentioned in the HPI, complete review of systems was performed and all other systems are negative Past Medical History Past Medical History: COPD, Diabetes Mellitus, Hyperlipidemia, Hypertension History of Any Multi-Drug Resistant Organisms: None Reported Past Surgical History: Adenoidectomy, Hysterectomy, Tubal Ligation Additional Past Surgical History / Comment(s): 2 tumors removals Smoking Status: Current every day smoker Medications and Allergies Home Medications Medication Instructions Recorded Confirmed Type Acetaminophen Tab [Tylenol] 650 mg PO Q6H PRN 01/29/24 01/29/24 History Budesonide/Formoterol Fumarate 2 puff INHALATION RT-BID 01/29/24 01/29/24 History [Symbicort 160-4.5 Mcg Inhaler] Escitalopram [Lexapro] 10 mg PO DAILY 01/29/24 01/29/24 History Insulin Glargine,Hum.rec.anlog 15 units SQ HS 01/29/24 01/29/24 History [Lantus Solostar Pen] Insulin Lispro [Insulin Lispro 5 units SQ TID-W/MEALS 01/29/24 01/29/24 History Kwikpen U-100] Lactobacillus Rhamnosus GG 1 cap PO BID 01/29/24 01/29/24 History [Culturelle] Melatonin 3 mg PO HS PRN 01/29/24 01/29/24 History Montelukast [Singulair] 10 mg PO HS 01/29/24 01/29/24 History Nicotine 14Mg/24Hr Patch [Habitrol] 1 patch TRANSDERM DAILY 01/29/24 01/29/24 History Pioglitazone HCl 15 mg PO DAILY 01/29/24 01/29/24 History amLODIPine [Norvasc] 5 mg PO BID 01/29/24 01/29/24 History guaiFENesin [guaiFENesin ER] 600 mg PO BID 01/29/24 01/29/24 History oxyCODONE-APAP 7.5-325MG [Percocet 1 tab PO TID PRN 01/29/24 01/29/24 History 7.5-325 mg] Budesonide [Pulmicort] 1 mg INHALATION RT-BID ml 02/05/24 Rx Formoterol Fumarate [Perforomist] 20 mcg INHALATION RT-BID ml 02/05/24 Rx Ipratropium-Albuterol Nebulize 3 ml INHALATION RT-QID each 02/05/24 Rx [Duoneb 0.5 mg-3 mg/3 ml Soln] Pantoprazole [Protonix] 40 mg PO AC-BID tab 02/05/24 Rx Voriconazole [Vfend] 200 mg PO Q12HR tab 02/05/24 Rx Acetaminophen Tab [Tylenol] 650 mg PO Q4HR PRN tab 02/26/24 Rx Amoxic-Pot Clav 875-125Mg 1 each PO Q12HR 10 Days #20 tab 02/26/24 Rx [Augmentin 875-125] Lactulose [Cephulac] 20 gm PO TID 30 Days #90 ml 02/26/24 Rx methylPREDNISolone Dose Pack 24 mg PO DAILY 5 Days #1 tab 02/26/24 Rx [Medrol Dose Pack] Allergies Allergy/AdvReac Type Severity Reaction Status Date / Time No Known Allergies Allergy Verified 01/29/24 12:57 Physical Exam Vitals: Vital Signs Temp Pulse Pulse Resp BP BP Pulse Ox 01/30/24 14:00 97.7 F 90 17 149/77 93 L 01/30/24 12:26 90 01/30/24 12:14 88 95 01/30/24 09:15 90 01/30/24 09:06 94 86 L 01/30/24 07:46 97.6 F 84 16 152/78 91 L 01/30/24 01:00 97.5 F L 87 14 148/78 93 L 01/29/24 20:09 98.3 F 91 16 148/77 94 L 01/29/24 19:47 93 01/29/24 19:39 92 01/29/24 19:08 93 16 152/91 95 01/29/24 18:19 98.0 F 90 20 151/91 93 L 01/29/24 17:00 90 18 148/90 94 L 01/29/24 16:21 93 01/29/24 16:13 98 01/29/24 16:05 97.9 F 95 20 144/92 95 01/29/24 15:22 93 17 162/94 96 Intake and Output 01/30/24 01/30/24 01/30/24 06:59 14:59 22:59 Output Total 750 Balance -750 Output: Urine 750 Other: Voiding Method Indwelling Catheter Weight 47.627 kg GENERAL DESCRIPTION: Middle-aged female lying in bed, no distress. No tachypnea or accessory muscle of respiration use. HEENT: Shows Pallor , no scleral icterus. Oral mucous membrane is dry. No pharyngeal erythema or thrush NECK: Trachea central, no thyromegaly. LUNGS: Unlabored breathing. Decreased breath sound the base HEART: S1, S2, regular rate and rhythm. No loud murmur ABDOMEN: Soft, no tenderness , guarding or rigidity, no organomegaly EXTREMITIES: No edema of feet. SKIN: He did have a pressure ulcer to the lower back area with slough tissue no surrounding redness or drainage NEUROLOGICAL: The patient is awake, alert, oriented x3, mood and affect normal. Results CBC & Chem 7: 02/24/24 07:46 02/24/24 07:46 Labs: Abnormal Lab Results - Last 24 Hours (Table) 01/29/24 01/30/24 01/30/24 Range/Units 20:43 05:14 05:14 WBC 11.60 H (4.50-10.00) X 10*3/uL Plt Count 542 H (140-440) X 10*3/uL Immature Gran # 0.05 H (0.00-0.04) X 10*3/uL Neutrophils # 10.99 H (1.80-7.70) X 10*3/uL Lymphocytes # 0.49 L (0.90-5.00) X 10*3/uL Monocytes # 0.05 L (0.20-1.00) X 10*3/uL Eosinophils # 0 L (0.04-0.35) X 10*3/uL Creatinine 0.4 L (0.6-1.5) mg/dL BUN/Creatinine Ratio 35.25 H (12.00-20.00) Ratio Glucose 258 H (70-110) mg/dL POC Glucose (mg/dL) 384 H (70-110) mg/dL Alkaline Phosphatase 390 H (41-126) U/L Total Protein 5.1 L (6.2-8.2) g/dL Albumin 3.1 L (3.8-4.9) g/dL Albumin/Globulin Ratio 1.55 L (1.60-3.17) Ratio Urine Appearance (Clear) Urine Protein (Negative) Urine Glucose (UA) (Negative) Urine Blood (Negative) Ur Leukocyte Esterase (Negative) Urine RBC (0-5) /hpf Urine WBC (0-5) /hpf Urine Mucus (None) /hpf Urine Yeast (Budding) (None) /hpf 01/30/24 01/30/24 01/30/24 Range/Units 06:27 11:08 13:35 WBC (4.50-10.00) X 10*3/uL Plt Count (140-440) X 10*3/uL Immature Gran # (0.00-0.04) X 10*3/uL Neutrophils # (1.80-7.70) X 10*3/uL Lymphocytes # (0.90-5.00) X 10*3/uL Monocytes # (0.20-1.00) X 10*3/uL Eosinophils # (0.04-0.35) X 10*3/uL Creatinine (0.6-1.5) mg/dL BUN/Creatinine Ratio (12.00-20.00) Ratio Glucose (70-110) mg/dL POC Glucose (mg/dL) 239 H 270 H (70-110) mg/dL Alkaline Phosphatase (41-126) U/L Total Protein (6.2-8.2) g/dL Albumin (3.8-4.9) g/dL Albumin/Globulin Ratio (1.60-3.17) Ratio Urine Appearance Turbid H (Clear) Urine Protein Trace H (Negative) Urine Glucose (UA) 4+ H (Negative) Urine Blood Small H (Negative) Ur Leukocyte Esterase Large H (Negative) Urine RBC >182 H (0-5) /hpf Urine WBC 66 H (0-5) /hpf Urine Mucus Rare H (None) /hpf Urine Yeast (Budding) Many H (None) /hpf Assessment and Plan (1) Hypoxemia Status: Acute Code(s): R09.02 - HYPOXEMIA SNOMED Code(s): 877273863 (2) Stage III pressure ulcer of sacral region Status: Acute Code(s): L89.153 - PRESSURE ULCER OF SACRAL REGION, STAGE 3 SNOMED Code(s): 60884704617362 (3) Urinary tract infection Status: Acute Code(s): N39.0 - URINARY TRACT INFECTION, SITE NOT SPECIFIED SNOMED Code(s): 76726701 Plan: 1patient presented to hospital with increasing shortness of breath which is likely multifactorial with a possible component of pneumonia likely gram- negative as the patient has been in the hospital 2-patient also has significantly positive despite changing Horn catheter likely component of cath versus UTI likely from enteric gram-negative 3-patient did have a stage III sacral pressure ulcer with slough tissue but no cellulitis local wound care with Medihoney followed by moist dressing and frequent change of position discussed with the nursing staff 4-try to obtain sputum for Gram stain culture check inflammatory markers 5-Zosyn 3.375 g every 8 hours We will follow on clinical condition and cultures to further adjust medication if needed Thank you for this consultation we will follow the patient along with you Dictation was produced using [employer] software. please excuse any grammatical, word or spelling errors. Time with Patient: Greater than 30
[2024-01-31 01:51] LABS: Glucose,Whole Blood 333 mg/dL (70-110)
--- NOTE | 2024-01-31 03:56 | PN ---
PROGRESS NOTE She is admitted from the ER last night. She has chest CTA, which was negative for PE. EKG shows sinus rhythm. She is saturating 91% to 86% on 2 to 9 L, temp 97.6, pulse 80s to 90s, respiratory rate 16 to 18, blood pressure 156/78. We will get Pulmonology to see her as she has bad COPD. Diabetes under better control. Possibly have Cardiology re-evaluate her. They had seen her at the hospital last week. Please see further orders. MMODL / IJN: [id number] /
[2024-01-31 05:57] LABS: Glucose,Whole Blood 209 mg/dL (70-110)
--- NOTE | 2024-01-31 08:35 | P.CRDCN ---
History of Present Illness Consult date: 01/31/24 Chief complaint: Shortness of breath History of present illness: The patient is a pleasant 63-year-old female patient with a past medical history significant for chronic obstructive pulmonary disease as well as diabetes and hypertension and dyslipidemia. She was admitted to the hospital with increasing shortness of breath and she was diagnosed with COPD exacerbation as well as UTI. The patient does have chronic Horn catheter. She stated that she has been short of breath for the last few weeks. No fever and no chills and no cough and no sputum production and no wheezing as well. She is known to have COPD when she is not on oxygen at home. No history of coronary artery disease or congestive heart failure or cardiac arrhythmia and never seen by any technology assistant before. The patient does have also chronic pain and she is very inactive. We consulted to see the patient because of tachycardia. Her resting heart rate has been in the 80s. The patient reports no pain in the chest and no dizziness or lightheadedness and no feeling of heart racing or fluttering and no presyncope or syncope. She underwent further investigation including 1 set of troponin came in to be unremarkable and EKG showing sinus mechanism with Q waves anteriorly concerning for severe underlying coronary artery disease. She has no more sets of troponin at this point. No echocardiogram was done as well. The examination is remarkable for stable vital signs with regular rate and rhythm and systolic murmur at the apical area and bilateral expiratory wheezing and no edema was noted Assessment Shortness of breath COPD exacerbation Abnormal EKG with possible/questionable old anterior HI Chronic pain Multiple comorbid conditions including diabetes and hypertension and dyslipidemia Plan Rule out acute coronary event. Obtain serial cardiac enzymes Obtain an echocardiogram with Doppler to establish LV function Maximize medical treatment at this point Follow-up with the patient Past Medical History Past Medical History: COPD, Diabetes Mellitus, Hyperlipidemia, Hypertension History of Any Multi-Drug Resistant Organisms: None Reported Past Surgical History: Adenoidectomy, Hysterectomy, Tubal Ligation Additional Past Surgical History / Comment(s): 2 tumors removals Smoking Status: Current every day smoker Medications and Allergies Home Medications Medication Instructions Recorded Confirmed Type Acetaminophen Tab [Tylenol] 650 mg PO Q6H PRN 01/29/24 01/29/24 History Amoxic-Pot Clav 500-125 mg 1 tab PO Q8H 01/29/24 01/29/24 History [Augmentin 500-125 mg] Budesonide/Formoterol Fumarate 2 puff INHALATION RT-BID 01/29/24 01/29/24 History [Symbicort 160-4.5 Mcg Inhaler] Escitalopram [Lexapro] 10 mg PO DAILY 01/29/24 01/29/24 History Fluconazole 200 mg PO DAILY 01/29/24 01/29/24 History Insulin Glargine,Hum.rec.anlog 15 units SQ HS 01/29/24 01/29/24 History [Lantus Solostar Pen] Insulin Lispro [Insulin Lispro 5 units SQ TID-W/MEALS 01/29/24 01/29/24 History Kwikpen U-100] Lactobacillus Rhamnosus GG 1 cap PO BID 01/29/24 01/29/24 History [Culturelle] Melatonin 3 mg PO HS PRN 01/29/24 01/29/24 History Montelukast [Singulair] 10 mg PO HS 01/29/24 01/29/24 History Nicotine 14Mg/24Hr Patch [Habitrol 1 patch TRANSDERM DAILY 01/29/24 01/29/24 History 14Mg/24Hr Patch] Pioglitazone HCl 15 mg PO DAILY 01/29/24 01/29/24 History amLODIPine [Norvasc] 5 mg PO BID 01/29/24 01/29/24 History guaiFENesin [guaiFENesin ER] 600 mg PO BID 01/29/24 01/29/24 History oxyCODONE-APAP 7.5-325MG [Percocet 1 tab PO TID PRN 01/29/24 01/29/24 History 7.5-325 mg] Allergies Allergy/AdvReac Type Severity Reaction Status Date / Time No Known Allergies Allergy Verified 01/29/24 12:57 Physical Exam Vitals: Vital Signs Temp Pulse Pulse Resp BP Pulse Ox 01/31/24 08:22 92 01/31/24 08:05 92 01/31/24 07:05 97.8 F 84 17 145/74 90 L 01/31/24 00:14 97.8 F 91 16 117/63 94 L 01/30/24 20:45 95 01/30/24 20:12 92 01/30/24 19:16 98.8 F 99 18 135/77 92 L 01/30/24 16:19 90 01/30/24 16:06 92 01/30/24 14:00 97.7 F 90 17 149/77 93 L 01/30/24 12:26 90 01/30/24 12:14 88 95 01/30/24 09:15 90 01/30/24 09:06 94 86 L Intake and Output 01/30/24 01/31/24 01/31/24 22:59 06:59 14:59 Output Total 600 950 Balance -600 -950 Output: Urine 600 950 Other: Voiding Method Indwelling Catheter Results 01/30/24 05:14 01/30/24 05:14 Cardiac Enzymes 01/30/24 Range/Units 05:14 AST 18 (13-35) U/L CBC 01/30/24 Range/Units 05:14 WBC 11.60 H (4.50-10.00) X 10*3/uL RBC 4.15 (4.10-5.20) X 10*6/uL Hgb 13.2 (12.0-15.0) g/dL Hct 39.8 (37.2-46.3) % Plt Count 542 H (140-440) X 10*3/uL Comprehensive Metabolic Panel 01/30/24 Range/Units 05:14 Sodium 139 (135-145) mmol/L Potassium 4.6 (3.5-5.5) mmol/L Chloride 102 (96-109) mmol/L Carbon Dioxide 26.1 (21.6-31.8) mmol/L BUN 14.1 (9.0-27.0) mg/dL Creatinine 0.4 L (0.6-1.5) mg/dL Glucose 258 H (70-110) mg/dL Calcium 9.2 (8.7-10.3) mg/dL AST 18 (13-35) U/L ALT 25 (8-44) U/L Alkaline Phosphatase 390 H (41-126) U/L Total Protein 5.1 L (6.2-8.2) g/dL Albumin 3.1 L (3.8-4.9) g/dL Current Medications Generic Name Dose Route Start Last Admin Trade Name Freq PRN Reason Stop Dose Admin Acetaminophen 650 mg 01/29/24 16:44 Acetaminophen Tab 325 Mg Tab PO Q4HR PRN Mild Pain or Fever > 100.5 Albuterol/Ipratropium 3 ml 01/29/24 20:00 01/31/24 08:04 Ipratropium-Albuterol 3 Ml Neb INHALATION 3 ml RT-QID KARINA Administration Amlodipine Besylate 5 mg 01/29/24 21:00 01/31/24 08:02 Amlodipine 5 Mg Tab PO 5 mg BID KARINA Administration Budesonide 1 mg 01/30/24 20:00 01/31/24 08:04 Budesonide 1 Mg/2 Ml Nebu INHALATION 1 mg RT-BID KARINA Administration Escitalopram Oxalate 10 mg 01/30/24 09:00 01/31/24 08:03 Escitalopram 10 Mg Tab PO 10 mg DAILY KARINA Administration Fluconazole 200 mg 01/30/24 09:00 01/31/24 08:02 Fluconazole 100 Mg Tab PO 200 mg DAILY KARINA Administration Guaifenesin 600 mg 01/29/24 21:00 01/31/24 08:02 Guaifenesin 600 Mg Tablet.Er PO 600 mg BID KARINA Administration Piperacillin Sod/Tazobactam 100 mls @ 25 mls/hr 01/29/24 20:00 01/31/24 03:52 Sod 3.375 gm/ Sodium Chloride IVPB 25 mls/hr Q8H KARINA Administration Protocol Insulin Aspart 5 unit 01/29/24 17:30 01/31/24 07:18 Insulin Aspart (Novolog) 100 Unit/Ml Vial SQ 5 unit TID-W/MEALS KARINA Administration Insulin Aspart 0 unit 01/30/24 21:00 01/31/24 06:51 Insulin Aspart (Novolog) 100 Unit/Ml Vial SQ 8 unit ACHS KARINA Administration Protocol Insulin Detemir 15 unit 01/29/24 21:00 01/30/24 21:45 Insulin Detemir (Levemir) 100 Unit/Ml Syr SQ 15 unit HS KARINA Administration Lactobacillus Acidophilus 1 each 01/29/24 21:00 01/31/24 08:02 Lactobacillus Acidophilus/Pect 1 Each Capsule PO 1 each BID KARINA Administration Melatonin 3 mg 01/29/24 16:45 01/29/24 20:55 Melatonin 3 Mg Tablet PO 3 mg HS PRN Administration sleep Methylprednisolone Sodium Succinate 60 mg 01/30/24 00:00 01/31/24 06:50 Methylprednisolone Sod Succi 125 Mg/2 Ml Vial IV 60 mg Q6HR KARINA Administration Montelukast Sodium 10 mg 01/29/24 21:00 01/30/24 21:21 Montelukast 10 Mg Tab PO 10 mg HS KARINA Administration Naloxone HCl 0.2 mg 01/29/24 16:44 Naloxone 0.4 Mg/Ml 1 Ml Vial IVP Q2M PRN Opioid Reversal Nicotine 1 patch 01/30/24 09:00 01/31/24 08:02 Nicotine 14mg/24hr Patch TRANSDERM Not Given DAILY KARINA Oxycodone/Acetaminophen 1 each 01/29/24 16:45 01/31/24 06:50 Oxycodone-Apap 7.5-325mg 1 Each Tab PO 1 each TID PRN Administration Pain Pantoprazole Sodium 40 mg 01/30/24 11:45 01/31/24 06:52 Pantoprazole 40 Mg Tablet PO 40 mg AC-BID KARINA Administration Pioglitazone HCl 15 mg 01/30/24 09:00 01/31/24 08:03 Pioglitazone 15 Mg Tab PO 15 mg DAILY KARINA Administration Intake and Output 01/30/24 01/31/24 01/31/24 22:59 06:59 14:59 Output Total 600 950 Balance -600 -950 Output: Urine 600 950 Other: Voiding Method Indwelling Catheter 01/30/24 05:14 01/30/24 05:14
[2024-01-31 11:14] LABS: Glucose,Whole Blood 201 mg/dL (70-110)
--- NOTE | 2024-01-31 14:02 | P.PN ---
Subjective Progress Note Date: 01/31/24 On 01/30/2024, the patient is being seen for shortness of breath. She is known to have COPD and diabetes mellitus and she is a chronic smoker. She has a chronic indwelling Horn catheter patient with a recent hospitalization at [facility]. She presented to us with worsening shortness of breath. The white cell count was 11 with a hemoglobin 13.2 and a platelet count of 542, normal electrolytes, normal renal function, UA was abnormal with many WBCs and budding yeast and a white cell count of 182. The patient is currently afebrile. The patient is hemodynamically stable and she is hypoxic currently 90s of oxygen by nasal cannula. Chest x-ray was done emergency department that showed moderate-sized right-sided pleural effusion. CT of the chest was also done which showed very limited effusion in the lung bases. The patient had significant atelectatic changes in the lower lobes bilaterally. No airspace disease or consolidation. No evidence of any pulmonary embolism. No evidence of any filling defects. Accordingly, the patient was hospitalized. She was started on Diflucan 20 mg p.o. daily. She was started on IV Zosyn and a pulmonary consultation was requested. Upon further questioning, it seems that the patient's health has been deteriorating over the past 1 year. The patient has lost considerable mount of weight. She has had issues with oropharyngeal thrush and she has not been able to take oral intake adequately and she has been meeting her caloric requirements. Such, the patient has not more than 50 pounds of weight. She had developed compression fractures. She has been feeling weak. Over the past 2 to 3 weeks, she has become essentially nonambulatory. As far as the Horn catheter, she claims that she has had urinary retention and the physicians at [facility] opted to keep the Horn catheter in place. The patient has been Bound/bedbound. She has developed a sacral decubitus ulcer stage II. She is weak, cachectic, malnourished, and remains debilitated at this point. The boyfriend was unable to take care of her at home. The visiting nurse made a recommendation for her to come into the hospital. She is a chronic smoker. She has COPD. Maintained on Symbicort. No home O2. The patient is seen today January 31, 2024 in follow-up on the regular medical floor. She is currently resting in bed. Awake and alert in no acute distress. She appears quite weak and debilitated. She states she had been falling at home and has fractures in her spine. She had been at [facility] recently. Currently feeling a bit better today compared to yesterday. She has a loose nonproductive cough. She is maintaining O2 saturations in the 90s on 2 L/min per nasal cannula. She remains on Zosyn. Glucose 201. Troponin negative x 2. She is continued on DuoNeb inhalations, Pulmicort and Perforomist inhalations, IV Solu-Medrol. NicoDerm patch in place. Objective - Vital Signs Vital signs: Vital Signs Temp 98.1 F 01/31/24 13:38 Pulse 93 01/31/24 13:38 Resp 17 01/31/24 13:38 BP 120/66 01/31/24 13:38 Pulse Ox 91 L 01/31/24 13:38 FiO2 Intake & Output 01/30/24 01/31/24 01/31/24 18:59 06:59 18:59 Output Total 600 950 Balance -600 -950 Output: Urine 600 950 Other: Voiding Method Indwelling Catheter Indwelling Catheter Indwelling Catheter - Exam GENERAL EXAM: Alert, pleasant, frail, cachectic 63-year-old female, appears older than stated age, on 2 L nasal cannula, in no apparent distress. HEAD: Normocephalic. EYES: Normal reaction of pupils, equal size. NOSE: Clear with pink turbinates. THROAT: No erythema or exudates. NECK: No masses, no JVD. CHEST: No chest wall deformity. LUNGS: Equal air entry with no crackles, wheeze, rhonchi or dullness. CVS: S1 and S2 normal with no audible murmur, regular rhythm. ABDOMEN: No hepatosplenomegaly, normal bowel sounds, no guarding or rigidity. SPINE: No scoliosis or deformity SKIN: No rashes. Stage II sacral decubitus ulcer CENTRAL NERVOUS SYSTEM: No focal deficits, tone is normal in all 4 extremities. EXTREMITIES: There is no peripheral edema. No clubbing, no cyanosis. Peripheral pulses are intact. - Labs CBC & Chem 7: 01/30/24 05:14 01/30/24 05:14 Labs: Abnormal Lab Results - Last 24 Hours (Table) 01/30/24 01/30/24 01/30/24 Range/Units 13:35 16:24 20:51 POC Glucose (mg/dL) 358 H 494 H (70-110) mg/dL Urine Appearance Turbid H (Clear) Urine Protein Trace H (Negative) Urine Glucose (UA) 4+ H (Negative) Urine Blood Small H (Negative) Ur Leukocyte Esterase Large H (Negative) Urine RBC >182 H (0-5) /hpf Urine WBC 66 H (0-5) /hpf Urine Mucus Rare H (None) /hpf Urine Yeast (Budding) Many H (None) /hpf 01/31/24 01/31/24 01/31/24 Range/Units 01:49 05:56 11:12 POC Glucose (mg/dL) 333 H 209 H 201 H (70-110) mg/dL Urine Appearance (Clear) Urine Protein (Negative) Urine Glucose (UA) (Negative) Urine Blood (Negative) Ur Leukocyte Esterase (Negative) Urine RBC (0-5) /hpf Urine WBC (0-5) /hpf Urine Mucus (None) /hpf Urine Yeast (Budding) (None) /hpf Microbiology - Last 24 Hours (Table) 01/29/24 21:00 Urine Culture - Final Urine,Catheterized Sarah sp,not albicans/galbr Assessment and Plan Assessment: Acute hypoxic respiratory failure currently on 2 L Of oxygen by nasal cannula. CTA of the chest shows no evidence of any pulmonary embolism. Extensive atelectatic changes in lung base bilaterally right more than left with small pleural effusions. Consider aspiration. Currently on IV Zosyn. COPD Diabetes mellitus type 2 Hypertension Hyperlipidemia Chronic urinary retention maintained on a chronic indwelling Horn catheter Weight loss, unexplained Compression fracture of the spine Stage II sacral decub ulcer Significant debility and impaired performance and functional status and the patient is currently unable to ambulate and she has been essentially chair/bedbound for the past month or so Frequent falls, hospitalized at [facility] Plan: The patient was seen and evaluated Labs and medications reviewed Continue bronchodilators, steroids Continue NicoDerm patch Educated regarding smoking cessation Will need subacute rehab at discharge I have personally seen and examined the patient, performed the documentation and the assessment and plan as written. Number of minutes spent on the visit: 10.
[2024-01-31 16:10] LABS: Glucose,Whole Blood 230 mg/dL (70-110)
[2024-01-31 20:52] LABS: Glucose,Whole Blood 252 mg/dL (70-110)
--- NOTE | 2024-01-31 21:18 | P.PN ---
Subjective Progress Note Date: 01/31/24 Principal diagnosis: Reason for follow-up is UTI question of pneumonia and a sacral pressure ulcer Patient is a 63-year-old female with a past medical history significan t for diabetes mellitus hypertension hyperlipidemia COPD current everyday smoker, recent multiple admission to the [facility] [place] for [place] followed with the compression fracture of the spine and hypoglycemia has been brought in to [facility] for evaluation of increasing shortness of breath did have abnormal CT angiogram of the chest concerning for effusion atelectasis positive UA concerning for UTI and the patient also have a sacral pressure ulcer. On today's evaluation that is 01/31/2024, the patient continues to be afebrile, the patient is on 2 L nasal cannula oxygen and breathing comfortably, the Pt denies having any chest pain and cough is decreased in intensity I would recommend a sputum no nausea no pain no abdominal pain or diarrhea. No new labs has been obtained today cultures are currently pending Objective - Vital Signs Vital signs: Vital Signs Temp 98.1 F 01/31/24 13:38 Pulse 92 01/31/24 15:42 Resp 17 01/31/24 13:38 BP 120/66 01/31/24 13:38 Pulse Ox 91 L 01/31/24 13:38 FiO2 Intake & Output 01/30/24 01/31/24 01/31/24 18:59 06:59 18:59 Output Total 600 950 400 Balance -600 -950 -400 Weight 47.627 kg Output: Urine 600 950 400 Other: Voiding Method Indwelling Catheter Indwelling Catheter Indwelling Catheter - Exam GENERAL DESCRIPTION: Middle-aged female lying in bed in no distress RESPIRATORY SYSTEM: Unlabored breathing , decreased breath sounds at bases HEART: S1 S2 regular rate and rhythm , ABDOMEN: Soft , no tenderness EXTREMITIES: No edema feet - Labs CBC & Chem 7: 01/30/24 05:14 01/30/24 05:14 Labs: Abnormal Lab Results - Last 24 Hours (Table) 01/30/24 01/31/24 01/31/24 Range/Units 20:51 01:49 05:56 POC Glucose (mg/dL) 494 H 333 H 209 H (70-110) mg/dL 01/31/24 01/31/24 Range/Units 11:12 16:09 POC Glucose (mg/dL) 201 H 230 H (70-110) mg/dL Microbiology - Last 24 Hours (Table) 01/29/24 21:00 Urine Culture - Final Urine,Catheterized Sarah sp,not albicans/galbr Assessment and Plan (1) Stage III pressure ulcer of sacral region Current Visit: Yes Status: Acute Code(s): L89.153 - PRESSURE ULCER OF SACRAL REGION, STAGE 3 SNOMED Code(s): 91007728973919 (2) Urinary tract infection Current Visit: Yes Status: Acute Code(s): N39.0 - URINARY TRACT INFECTION, SITE NOT SPECIFIED SNOMED Code(s): 83484232 Plan: 1patient presented to hospital with increasing shortness of breath which is likely multifactorial with a possible component of pneumonia likely gram- negative as the patient has been in the hospital 2-patient also has significantly positive despite changing Horn catheter likely component of cath versus UTI likely from enteric gram-negative 3-patient did have a stage III sacral pressure ulcer with slough tissue but no cellulitis local wound care with Medihoney followed by moist dressing and frequent change of position 4-patient to continue with Zosyn 3.375 g every 8 hours while waiting for the culture to finalize Dictation was produced using [employer] dictation software. please excuse any grammatical, word or spelling errors. Time with Patient: Less than 30
[2024-01-31] MEDS: FORMOTEROL FUMARATE 20 MCG/2 ML NEBU INHALATION SCH (22:08)
[2024-02-01 06:02] LABS: Glucose,Whole Blood 50 mg/dL (70-110)
[2024-02-01 06:43] LABS: Glucose,Whole Blood 78 mg/dL (70-110)
--- NOTE | 2024-02-01 07:45 | PN ---
PROGRESS NOTE SUBJECTIVE: Remains on IV Solu-Medrol, Singulair, Levemir for diabetes, Pulmicort, Norvasc for hypertension, DuoNeb, Pulmicort for breathing. She appears to be doing better. She wants a CAT scan of her lumbar spine for severe pain, left leg is more numb than the right leg. OBJECTIVE: VITAL SIGNS: She is saturating on 2 L 90 to 91, temp 98.1, pulse is 90 to 93, respiratory rate is 16 to 18. CARDIOVASCULAR: S1, S2. LUNGS: Transmitted upper sounds. GI: Thin, cachectic. ASSESSMENT: COPD, atypical chest pain. She has insulin-dependent diabetes mellitus. Serial cardiac enzymes. Echo is pending. Medical treatment. Prognosis guarded. Please see further orders. MMODL / IJN: [id number] /
[2024-02-01 08:43] LABS: HCT 39.9 % (37.2-46.3); HGB 13.2 g/dL (12.0-15.0); MCH 32.4 pg (27.0-32.0); MCHC 33.1 g/dL (32.0-37.0); Mean Platelet Volume 10.2 FL (9.5-12.2); NRBC Per 100 WBC 0 X 10*3/uL (0.00-0.01); Platelet Count 645 X 10*3/uL (140-440); RBC 4.07 X 10*6/uL (4.10-5.20); RDW 13.7 % (11.5-14.5); WBC 29.12 X 10*3/uL (4.50-10.00)
[2024-02-01 09:13] LABS: Basophils # (A) 0.04 X 10*3/uL (0.00-0.10); Basophils % (A) 0.1 %; Eosinophils # (A) 0 X 10*3/uL (0.04-0.35); Eosinophils % (A) 0 %; Lymphocytes # (A) 0.32 X 10*3/uL (0.90-5.00); Lymphocytes % (A) 1.1 %; Monocytes % (A) 0.7 %; Neutrophils # (A) 28.24 X 10*3/uL (1.80-7.70); RBC Morphology Normal (Normal)
[2024-02-01 09:28] LABS: BUN/Creat Ratio 74.67 Ratio (12.00-20.00); Blood Urea Nitrogen 22.4 mg/dL (9.0-27.0); Carbon Dioxide 26.9 mmol/L (21.6-31.8); Chloride 106 mmol/L (96-109); Glucose 38 mg/dL (70-110); Sodium 142 mmol/L (135-145)
[2024-02-01 09:29] LABS: ALT 23 U/L (8-44); AST 21 U/L (13-35); Albumin 3.2 g/dL (3.8-4.9); Albumin/Globulin Ratio 1.52 Ratio (1.60-3.17); Alkaline Phosphatase 358 U/L (41-126); Calcium 9.1 mg/dL (8.7-10.3); Globulin 2.1 g/dL (1.6-3.3); Total Bilirubin 0.2 mg/dL (0.3-1.2); Total Protein 5.3 g/dL (6.2-8.2)
--- NOTE | 2024-02-01 10:30 | P.PN ---
Subjective Progress Note Date: 02/01/24 Principal diagnosis: Cardiac follow-up The patient is a pleasant 63-year-old female patient with a past medical history significant for chronic obstructive pulmonary disease as well as diabetes and hypertension and dyslipidemia. She was admitted to the hospital with increasing shortness of breath and she was diagnosed with COPD exacerbation as well as UTI. The patient does have chronic Horn catheter. She stated that she has been short of breath for the last few weeks. No fever and no chills and no cough and no sputum production and no wheezing as well. She is known to have COPD when she is not on oxygen at home. 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 The patient does have also chronic pain and she is very inactive. We consulted to see the patient because of tachycardia. Her resting heart rate has been in the 80s. The patient reports no pain in the chest and no dizziness or lightheadedness and no feeling of heart racing or fluttering and no presyncope or syncope. She underwent further investigation including 1 set of troponin came in to be unremarkable and EKG showing sinus mechanism with Q waves anteriorly concerning for severe underlying coronary artery disease. She has no more sets of troponin at this point. No echocardiogram was done as well. The examination is remarkable for stable vital signs with regular rate and rhythm and systolic murmur at the apical area and bilateral expiratory wheezing and no edema was noted February 01, 2024 The patient was seen and evaluated this morning. Acute coronary event was ruled out by serial cardiac enzymes. The patient clinically seems to be stable and currently reports no pain in the chest. The shortness of breath appears to be the same as before. No dizziness or lightheadedness and no feeling of heart racing or fluttering. The echo still pending. The examination is remarkable for regular rhythm with diminished breathing sounds bilaterally and no edema was noted. Assessment Shortness of breath COPD exacerbation Abnormal EKG with possible/questionable old anterior UT Chronic pain Multiple comorbid conditions including diabetes and hypertension and dyslipidemia Plan Acute coronary event was ruled out Obtain an echocardiogram with Doppler to establish LV function Maximize medical treatment at this point Follow-up with the patient Objective - Vital Signs Vital signs: Vital Signs Temp 97.4 F L 02/01/24 01:31 Pulse 70 02/01/24 08:34 Resp 17 02/01/24 08:34 BP 121/68 02/01/24 07:05 Pulse Ox 88 L 02/01/24 07:05 FiO2 Intake & Output 01/31/24 02/01/24 02/01/24 18:59 06:59 18:59 Output Total 400 300 Balance -400 -300 Weight 47.627 kg Output: Urine 400 300 Other: Voiding Method Indwelling Catheter Indwelling Catheter Indwelling Catheter - Labs CBC & Chem 7: 02/01/24 05:51 02/01/24 05:51 Labs: Abnormal Lab Results - Last 24 Hours (Table) 01/31/24 01/31/24 01/31/24 Range/Units 11:12 16:09 20:50 WBC (4.50-10.00) X 10*3/uL RBC (4.10-5.20) X 10*6/uL MCV (80.0-97.0) FL MCH (27.0-32.0) pg Plt Count (140-440) X 10*3/uL Immature Gran # (0.00-0.04) X 10*3/uL Neutrophils # (1.80-7.70) X 10*3/uL Lymphocytes # (0.90-5.00) X 10*3/uL Eosinophils # (0.04-0.35) X 10*3/uL Creatinine (0.6-1.5) mg/dL BUN/Creatinine Ratio (12.00-20.00) Ratio Glucose (70-110) mg/dL POC Glucose (mg/dL) 201 H 230 H 252 H (70-110) mg/dL Total Bilirubin (0.3-1.2) mg/dL Alkaline Phosphatase (41-126) U/L Total Protein (6.2-8.2) g/dL Albumin (3.8-4.9) g/dL Albumin/Globulin Ratio (1.60-3.17) Ratio 02/01/24 02/01/24 02/01/24 Range/Units 05:51 05:51 05:56 WBC 29.12 H (4.50-10.00) X 10*3/uL RBC 4.07 L (4.10-5.20) X 10*6/uL MCV 98.0 H (80.0-97.0) FL MCH 32.4 H (27.0-32.0) pg Plt Count 645 H (140-440) X 10*3/uL Immature Gran # 0.32 H (0.00-0.04) X 10*3/uL Neutrophils # 28.24 H (1.80-7.70) X 10*3/uL Lymphocytes # 0.32 L (0.90-5.00) X 10*3/uL Eosinophils # 0 L (0.04-0.35) X 10*3/uL Creatinine 0.3 L (0.6-1.5) mg/dL BUN/Creatinine Ratio 74.67 H (12.00-20.00) Ratio Glucose 38 A* (70-110) mg/dL POC Glucose (mg/dL) 50 L (70-110) mg/dL Total Bilirubin 0.2 L (0.3-1.2) mg/dL Alkaline Phosphatase 358 H (41-126) U/L Total Protein 5.3 L (6.2-8.2) g/dL Albumin 3.2 L (3.8-4.9) g/dL Albumin/Globulin Ratio 1.52 L (1.60-3.17) Ratio Microbiology - Last 24 Hours (Table) 01/29/24 21:00 Urine Culture - Final Urine,Catheterized Sarah sp,not albicans/galbr
[2024-02-01] MEDS: HYDROmorphone 1 MG/ML 1 ML SYRINGE IVP PRN (11:27)
[2024-02-01 11:45] LABS: Glucose,Whole Blood 293 mg/dL (70-110)
--- NOTE | 2024-02-01 12:54 | CA ---
Transthoracic Echo Report Name: Sha Lucio Age: 63 Gender: F : 1960 Exam Date: 01/31/2024 15:14 Exam Location: [facility] Ht (in): 68 Wt (lb): 108 Ordering Physician: Dayday Delaney MD ([id number]) Attending/Referring Phys: Night Shift Lashonda Osborn RDCS Procedure CPT: Indications: sob Cardiac Hx: Technical Quality: Good Contrast 1: Total Dose (mL): Contrast 2: Total Dose (mL): MEASUREMENTS (Male / Female) Normal Values 2D ECHO LV Diastolic Diameter PLAX 3.1 cm 4.2 - 5.9 / 3.9 - 5.3 cm LV Systolic Diameter PLAX 2.1 cm IVS Diastolic Thickness 1.3 cm 0.6 - 1.0 / 0.6 - 0.9 cm LVPW Diastolic Thickness 1.1 cm 0.6 - 1.0 / 0.6 - 0.9 cm LV Relative Wall Thickness 0.8 LVOT Diameter 1.8 cm Aortic Root Diameter 2.9 cm LV Diastolic Volume MOD BP 64.4 cm??? 67 - 155 / 56 - 104 cm??? LV Systolic Volume MOD BP 22.2 cm??? 22 - 58 / 19 - 49 cm??? LV Ejection Fraction MOD BP 65.5 % >= 55 % LV Cardiac Index MOD BP 2449.2 cm???/min???m??? LV Diastolic Volume MOD 4C 51.5 cm??? LV Systolic Volume MOD 4C 21.0 cm??? LV Ejection Fraction MOD 4C 59.2 % LV Cardiac Index MOD 4C 1769.6 cm???/min???m??? LV Diastolic Length 4C 7.2 cm LV Systolic Length 4C 5.5 cm LV Diastolic Volume MOD 2C 74.3 cm??? LV Systolic Volume MOD 2C 22.6 cm??? LV Ejection Fraction MOD 2C 69.5 % LV Cardiac Index MOD 2C 3000.0 cm???/min???m??? LV Diastolic Length 2C 7.8 cm LV Systolic Length 2C 5.9 cm DOPPLER AV Peak Velocity 139.6 cm/s AV Peak Gradient 7.8 mmHg AV Mean Velocity 97.4 cm/s AV Mean Gradient 4.1 mmHg AV Velocity Time Integral 27.2 cm LVOT Peak Velocity 108.2 cm/s LVOT Peak Gradient 4.7 mmHg LVOT Velocity Time Integral 21.2 cm LVOT Stroke Volume 55.6 cm??? LVOT Stroke Volume Index 35.4 ml/m??? LVOT Cardiac Index 3227.6 cm???/min???m??? AV Area Cont Eq vti 2.0 cm??? AV Area Cont Eq pk 2.0 cm??? Mitral E Point Velocity 77.2 cm/s Mitral A Point Velocity 97.2 cm/s Mitral E to A Ratio 0.8 MV Deceleration Time 138.6 ms MV E' Velocity 6.9 cm/s Mitral E to MV E' Ratio 11.1 TR Peak Velocity 123.0 cm/s TR Peak Gradient 6.0 mmHg Right Atrial Pressure 5.0 mmHg Pulmonary Artery Systolic Pressu 11.0 mmHg Right Ventricular Systolic Press 11.0 mmHg PV Peak Velocity 100.8 cm/s PV Peak Gradient 4.1 mmHg FINDINGS Left Ventricle Left ventricular ejection fraction is estimated at 60-65 %. Mildly increased septal wall thickness. Mildly increased posterior wall thickness. Left ventricular cavity size normal. No obvious regional wall motion abnormalities. Right Ventricle Normal right ventricular size and function. Right ventricular systolic pressure within normal limits. Right Atrium Normal right atrial size. Left Atrium Normal left atrial size. Mitral Valve Mitral valve thickened. Mild mitral annular calcification. No evidence for mitral valve prolapse. No mitral stenosis. Trace mitral regurgitation. Aortic Valve Trileaflet aortic valve. No aortic valve stenosis or regurgitation. Tricuspid Valve Structurally normal tricuspid valve. No tricuspid stenosis. Mild tricuspid regurgitation. Pulmonic Valve Structurally normal pulmonic valve. No pulmonic stenosis. No pulmonic regurgitation. Pericardium No pericardial effusion. Aorta Aortic annulus normal. Ascending aorta not well visualized. CONCLUSIONS Normal LV systolic function Previewed by: Dr. Dayday Delaney MD (Electronically Signed) Final Date: 01 Feb 2024 12:52
--- NOTE | 2024-02-01 13:09 | CDI ---
Documentation Clarification Form Date: 02/01/2024 12:39:00 PM From: Sheela Paz RN, CCDS Phone: [phone] Admit Date: 01/29/2024 04:44:00 PM Patient Name: Sha Lucio Visit Number: [id number] Discharge Date: ATTENTION: The Clinical Documentation Specialists (CDI) and [facility] Coding Staff appreciate your assistance in clarifying documentation. Please respond to the clarification below the line at the bottom and electronically sign. The CDI & [facility] Coding staff will review the response and follow-up if needed. Please note: Queries are made part of the Legal Health Record. If you have any questions, please contact the author of this message via ITS. Dr. Cory Lloyd UTI is documented in the H/P and subsequent progress notes. She has a chronic indwelling Horn. Additional clarification regarding the etiology of the UTI is requested. History/Risk Factors: COPD, Diabetes Mellitus, Hyperlipidemia, Hypertension, Current every day smoker Clinical Indicators: 63-year-old female has a chronic indwelling Horn catheter with complaints of shortness of breath. She denies any overt fevers chills or sweats any dysuria any hematuria she does have decreased oral intake. 01/28 VS: 142/82 99 20 97.6 8L4% RA, 01/28 Urinalysis: Turbid, Urine blood Moderate, Ur Leukocyte Esterase-Large, Urine WBC .182 01/28 Urine culture: Sarah (yeast) sp, not albicans or glabrata 01/28 Lab results: WBC 15.0, Neutrophils 13.1, Na+ 133 Treatment: Zosyn 3.375 MG IVPB Q 8 HRS 01/28-7 .9NS @75 MLS/HR 01/28-01/28 Please clarify the etiology of the UTI, if known: [ ] Horn catheter [ ] UTI not related Horn catheter [ ] Other condition, please specify [ ] Unable to determine (Template Last Revised: November 2020) MTDD
--- NOTE | 2024-02-01 14:16 | P.PN ---
Subjective Progress Note Date: 02/01/24 On 01/30/2024, the patient is being seen for shortness of breath. She is known to have COPD and diabetes mellitus and she is a chronic smoker. She has a chronic indwelling Horn catheter patient with a recent hospitalization at [facility]. She presented to us with worsening shortness of breath. The white cell count was 11 with a hemoglobin 13.2 and a platelet count of 542, normal electrolytes, normal renal function, UA was abnormal with many WBCs and budding yeast and a white cell count of 182. The patient is currently afebrile. The patient is hemodynamically stable and she is hypoxic currently 90s of oxygen by nasal cannula. Chest x-ray was done emergency department that showed moderate-sized right-sided pleural effusion. CT of the chest was also done which showed very limited effusion in the lung bases. The patient had significant atelectatic changes in the lower lobes bilaterally. No airspace disease or consolidation. No evidence of any pulmonary embolism. No evidence of any filling defects. Accordingly, the patient was hospitalized. She was started on Diflucan 20 mg p.o. daily. She was started on IV Zosyn and a pulmonary consultation was requested. Upon further questioning, it seems that the patient's health has been deteriorating over the past 1 year. The patient has lost considerable mount of weight. She has had issues with oropharyngeal thrush and she has not been able to take oral intake adequately and she has been meeting her caloric requirements. Such, the patient has not more than 50 pounds of weight. She had developed compression fractures. She has been feeling weak. Over the past 2 to 3 weeks, she has become essentially nonambulatory. As far as the Horn catheter, she claims that she has had urinary retention and the physicians at [facility] opted to keep the Horn catheter in place. The patient has been Bound/bedbound. She has developed a sacral decubitus ulcer stage II. She is weak, cachectic, malnourished, and remains debilitated at this point. The boyfriend was unable to take care of her at home. The visiting nurse made a recommendation for her to come into the hospital. She is a chronic smoker. She has COPD. Maintained on Symbicort. No home O2. The patient is seen today January 31, 2024 in follow-up on the regular medical floor. She is currently resting in bed. Awake and alert in no acute distress. She appears quite weak and debilitated. She states she had been falling at home and has fractures in her spine. She had been at [facility] recently. Currently feeling a bit better today compared to yesterday. She has a loose nonproductive cough. She is maintaining O2 saturations in the 90s on 2 L/min per nasal cannula. She remains on Zosyn. Glucose 201. Troponin negative x 2. She is continued on DuoNeb inhalations, Pulmicort and Perforomist inhalations, IV Solu-Medrol. NicoDerm patch in place. The patient is seen today February 01, 2024 and follow-up on the regular medical floor. She is currently sitting about a chair. She is awake and alert. She is quite uncomfortable. She states she hurts everywhere. Mainly from her previous falls. She is being maintained on Percocet alternating with Dilaudid. She is maintaining O2 saturations in the 90s on 2 L nasal cannula. Urine culture reveals Sarah. White count 29.1. Hemoglobin 13.9. Platelets 645. Sodium 142. Potassium 4.0. Bicarb 27. BUN 22. Creatinine 0.3. Glucose 78. She remains on DuoNeb inhalations, Pulmicort and Perforomist inhalations, Solu- Medrol and Singulair. NicoDerm patch is in place. She is on antibiotics in the form of Zosyn. She is on Diflucan. Objective - Vital Signs Vital signs: Vital Signs Temp 97.4 F L 02/01/24 01:31 Pulse 84 02/01/24 11:07 Resp 17 02/01/24 08:34 BP 121/68 02/01/24 07:05 Pulse Ox 88 L 02/01/24 07:05 FiO2 Intake & Output 01/31/24 02/01/24 02/01/24 18:59 06:59 18:59 Output Total 400 300 Balance -400 -300 Weight 47.627 kg Output: Urine 400 300 Other: Voiding Method Indwelling Catheter Indwelling Catheter Indwelling Catheter - Exam GENERAL EXAM: Alert, frail, cachectic 63-year-old female, appears older than stated age, on 2 L nasal cannula, currently uncomfortable. HEAD: Normocephalic. EYES: Normal reaction of pupils, equal size. NOSE: Clear with pink turbinates. THROAT: No erythema or exudates. NECK: No masses, no JVD. CHEST: No chest wall deformity. LUNGS: Equal air entry with no crackles, wheeze, rhonchi or dullness. CVS: S1 and S2 normal with no audible murmur, regular rhythm. ABDOMEN: No hepatosplenomegaly, normal bowel sounds, no guarding or rigidity. SPINE: No scoliosis or deformity SKIN: No rashes. Stage II sacral decubitus ulcer CENTRAL NERVOUS SYSTEM: No focal deficits, tone is normal in all 4 extremities. EXTREMITIES: There is no peripheral edema. No clubbing, no cyanosis. Peripheral pulses are intact. - Labs CBC & Chem 7: 02/01/24 05:51 02/01/24 05:51 Labs: Abnormal Lab Results - Last 24 Hours (Table) 01/31/24 01/31/24 02/01/24 Range/Units 16:09 20:50 05:51 WBC 29.12 H (4.50-10.00) X 10*3/uL RBC 4.07 L (4.10-5.20) X 10*6/uL MCV 98.0 H (80.0-97.0) FL MCH 32.4 H (27.0-32.0) pg Plt Count 645 H (140-440) X 10*3/uL Immature Gran # 0.32 H (0.00-0.04) X 10*3/uL Neutrophils # 28.24 H (1.80-7.70) X 10*3/uL Lymphocytes # 0.32 L (0.90-5.00) X 10*3/uL Eosinophils # 0 L (0.04-0.35) X 10*3/uL Creatinine (0.6-1.5) mg/dL BUN/Creatinine Ratio (12.00-20.00) Ratio Glucose (70-110) mg/dL POC Glucose (mg/dL) 230 H 252 H (70-110) mg/dL Total Bilirubin (0.3-1.2) mg/dL Alkaline Phosphatase (41-126) U/L Total Protein (6.2-8.2) g/dL Albumin (3.8-4.9) g/dL Albumin/Globulin Ratio (1.60-3.17) Ratio 02/01/24 02/01/24 02/01/24 Range/Units 05:51 05:56 11:44 WBC (4.50-10.00) X 10*3/uL RBC (4.10-5.20) X 10*6/uL MCV (80.0-97.0) FL MCH (27.0-32.0) pg Plt Count (140-440) X 10*3/uL Immature Gran # (0.00-0.04) X 10*3/uL Neutrophils # (1.80-7.70) X 10*3/uL Lymphocytes # (0.90-5.00) X 10*3/uL Eosinophils # (0.04-0.35) X 10*3/uL Creatinine 0.3 L (0.6-1.5) mg/dL BUN/Creatinine Ratio 74.67 H (12.00-20.00) Ratio Glucose 38 A* (70-110) mg/dL POC Glucose (mg/dL) 50 L 293 H (70-110) mg/dL Total Bilirubin 0.2 L (0.3-1.2) mg/dL Alkaline Phosphatase 358 H (41-126) U/L Total Protein 5.3 L (6.2-8.2) g/dL Albumin 3.2 L (3.8-4.9) g/dL Albumin/Globulin Ratio 1.52 L (1.60-3.17) Ratio Microbiology - Last 24 Hours (Table) 01/29/24 21:00 Urine Culture - Final Urine,Catheterized Sarah sp,not albicans/galbr Assessment and Plan Assessment: Acute hypoxic respiratory failure currently on 2 L of oxygen by nasal cannula. CTA of the chest shows no evidence of any pulmonary embolism. Extensive atelectatic changes in lung base bilaterally right more than left with small pleural effusions. Consider aspiration. Currently on IV Zosyn Acute exacerbation of COPD Chronic and ongoing tobacco dependence Diabetes mellitus type 2 Hypertension Hyperlipidemia Depression Chronic urinary retention maintained on a chronic indwelling Horn catheter, culture reveals Sarah Weight loss, unexplained Compression fracture of the spine Stage II sacral decub ulcer Significant debility and impaired performance and functional status and the patient is currently unable to ambulate and she has been essentially chair/bedbound for the past month or so Frequent falls, hospitalized at [facility] Plan: The patient was seen and evaluated Labs and medications reviewed Continued on Dilaudid and Percocet for pain control Obtain a bone scan for diffuse skeletal pain Continue bronchodilators, steroids Continue NicoDerm patch Again educated regarding smoking cessation Will need subacute rehab at discharge I have personally seen and examined the patient, performed the documentation and the assessment and plan as written. Number of minutes spent on the visit: 10.
[2024-02-01 16:40] LABS: Glucose,Whole Blood 245 mg/dL (70-110)
[2024-02-01] MEDS: VORICONAZOLE 200 MG TAB PO SCH (20:37)
[2024-02-01 20:52] LABS: Glucose,Whole Blood 250 mg/dL (70-110)
[2024-02-02 05:47] LABS: Glucose,Whole Blood 113 mg/dL (70-110)
[2024-02-02 11:16] LABS: Glucose,Whole Blood 242 mg/dL (70-110)
--- NOTE | 2024-02-02 11:25 | P.PN ---
Subjective HISTORY OF PRESENT ILLNESS: The patient is a pleasant 63-year-old female patient with a past medical history significant for chronic obstructive pulmonary disease as well as diabetes and hypertension and dyslipidemia. She was admitted to the hospital with increasing shortness of breath and she was diagnosed with COPD exacerbation as well as UTI. The patient does have chronic Horn catheter. She stated that she has been short of breath for the last few weeks. No fever and no chills and no cough and no sputum production and no wheezing as well. She is known to have COPD when she is not on oxygen at home. No history of coronary artery disease or congestive heart failure or cardiac arrhythmia and never seen by any lead mobile developer before. The patient does have also chronic pain and she is very inactive. We consulted to see the patient because of tachycardia. Her resting heart rate has been in the 80s. The patient reports no pain in the chest and no dizziness or lightheadedness and no feeling of heart racing or fluttering and no presyncope or syncope. She underwent further investigation including 1 set of troponin came in to be unremarkable and EKG showing sinus mechanism with Q waves anteriorly concerning for severe underlying coronary artery disease. She has no more sets of troponin at this point. No echocardiogram was done as well. The examination is remarkable for stable vital signs with regular rate and rhythm an d systolic murmur at the apical area and bilateral expiratory wheezing and no edema was noted February 01, 2024 The patient was seen and evaluated this morning. Acute coronary event was ruled out by serial cardiac enzymes. The patient clinically seems to be stable and currently reports no pain in the chest. The shortness of breath appears to be the same as before. No dizziness or lightheadedness and no feeling of heart racing or fluttering. The echo still pending. The examination is remarkable for regular rhythm with diminished breathing sounds bilaterally and no edema was noted. 02/02/2024 Patient examined this morning at the bedside. Patient denies chest pain or pressure. She denies shortness of breath. Echocardiogram completed revealing ejection fraction 60 to 65%, trace MR, mild TR PHYSICAL EXAM: VITAL SIGNS: Reviewed. GENERAL: Well-developed in no acute distress. NECK: Supple. No JVD or thyromegaly LUNGS: Respirations even and unlabored. Lungs essentially clear to auscultation bilaterally. HEART: Regular rate and rhythm. S1 and S2 heard. EXTREMITIES: Normal range of motion. No clubbing or cyanosis. Peripheral pulses intact. No lower extremity edema ASSESSMENT: Shortness of breath COPD exacerbation Abnormal EKG with possible/questionable old anterior IN Chronic pain Multiple comorbid conditions including diabetes and hypertension and dyslipidemia PLAN: Continue current cardiac medications No further inpatient recommendations from a cardiac standpoint Patient is stable for discharge from a cardiology perspective We will sign off. Please reconsult if needed. Nurse practitioner note has been reviewed by physician. Signing provider agrees with the documented findings, assessment, and plan of care documented by INTERNATIONAL LOGISTICS MANAGER as a scribe. Objective - Vital Signs Vital signs: Vital Signs Temp 98.5 F 02/02/24 07:11 Pulse 84 02/02/24 09:47 Resp 18 02/02/24 07:11 BP 155/78 02/02/24 07:11 Pulse Ox 89 L 02/02/24 07:11 FiO2 Intake & Output 02/01/24 02/02/24 02/02/24 18:59 06:59 18:59 Output Total 500 300 Balance -500 -300 Output: Urine 500 300 Other: Voiding Method Indwelling Catheter Indwelling Catheter - Labs CBC & Chem 7: 02/01/24 05:51 02/01/24 05:51 Labs: Abnormal Lab Results - Last 24 Hours (Table) 02/01/24 02/01/24 02/01/24 Range/Units 11:44 16:39 20:45 POC Glucose (mg/dL) 293 H 245 H 250 H (70-110) mg/dL 02/02/24 02/02/24 Range/Units 05:45 11:15 POC Glucose (mg/dL) 113 H 242 H (70-110) mg/dL
--- NOTE | 2024-02-02 13:19 | P.PN ---
Subjective Progress Note Date: 02/02/24 On 01/30/2024, the patient is being seen for shortness of breath. She is known to have COPD and diabetes mellitus and she is a chronic smoker. She has a chronic indwelling Horn catheter patient with a recent hospitalization at [facility]. She presented to us with worsening shortness of breath. The white cell count was 11 with a hemoglobin 13.2 and a platelet count of 542, normal electrolytes, normal renal function, UA was abnormal with many WBCs and budding yeast and a white cell count of 182. The patient is currently afebrile. The patient is hemodynamically stable and she is hypoxic currently 90s of oxygen by nasal cannula. Chest x-ray was done emergency department that showed moderate-sized right-sided pleural effusion. CT of the chest was also done which showed very limited effusion in the lung bases. The patient had significant atelectatic changes in the lower lobes bilaterally. No airspace disease or consolidation. No evidence of any pulmonary embolism. No evidence of any filling defects. Accordingly, the patient was hospitalized. She was started on Diflucan 20 mg p.o. daily. She was started on IV Zosyn and a pulmonary consultation was requested. Upon further questioning, it seems that the patient's health has been deteriorating over the past 1 year. The patient has lost considerable mount of weight. She has had issues with oropharyngeal thrush and she has not been able to take oral intake adequately and she has been meeting her caloric requirements. Such, the patient has not more than 50 pounds of weight. She had developed compression fractures. She has been feeling weak. Over the past 2 to 3 weeks, she has become essentially nonambulatory. As far as the Horn catheter, she claims that she has had urinary retention and the physicians at [facility] opted to keep the Horn catheter in place. The patient has been Bound/bedbound. She has developed a sacral decubitus ulcer stage II. She is weak, cachectic, malnourished, and remains debilitated at this point. The boyfriend was unable to take care of her at home. The visiting nurse made a recommendation for her to come into the hospital. She is a chronic smoker. She has COPD. Maintained on Symbicort. No home O2. The patient is seen today January 31, 2024 in follow-up on the regular medical floor. She is currently resting in bed. Awake and alert in no acute distress. She appears quite weak and debilitated. She states she had been falling at home and has fractures in her spine. She had been at [facility] recently. Currently feeling a bit better today compared to yesterday. She has a loose nonproductive cough. She is maintaining O2 saturations in the 90s on 2 L/min per nasal cannula. She remains on Zosyn. Glucose 201. Troponin negative x 2. She is continued on DuoNeb inhalations, Pulmicort and Perforomist inhalations, IV Solu-Medrol. NicoDerm patch in place. The patient is seen today February 01, 2024 and follow-up on the regular medical floor. She is currently sitting about a chair. She is awake and alert. She is quite uncomfortable. She states she hurts everywhere. Mainly from her previous falls. She is being maintained on Percocet alternating with Dilaudid. She is maintaining O2 saturations in the 90s on 2 L nasal cannula. Urine culture reveals Sarah. White count 29.1. Hemoglobin 13.9. Platelets 645. Sodium 142. Potassium 4.0. Bicarb 27. BUN 22. Creatinine 0.3. Glucose 78. She remains on DuoNeb inhalations, Pulmicort and Perforomist inhalations, Solu- Medrol and Singulair. NicoDerm patch is in place. She is on antibiotics in the form of Zosyn. She is on Diflucan. The patient is seen today February 02, 2024 in follow-up on the regular medical floor. She is awake and alert in no acute distress. Currently sitting up in a chair at the bedside. Denies any worsening shortness of breath, cough or congestion. She is maintaining O2 saturations in the 90s on 2 L/min per nasal cannula. She is feeling a bit better today compared to yesterday. Glucose 242. She remains on DuoNeb ventilations, Pulmicort and performing scintillations, Singulair, IV Solu-Medrol. NicoDerm patch in place. Continued on Zosyn. Currently on voriconazole for the Sarah in the urine. Being followed by infectious disease. Objective - Vital Signs Vital signs: Vital Signs Temp 98.5 F 02/02/24 07:11 Pulse 84 02/02/24 13:02 Resp 18 02/02/24 07:11 BP 155/78 02/02/24 07:11 Pulse Ox 89 L 02/02/24 07:11 FiO2 Intake & Output 02/01/24 02/02/24 02/02/24 18:59 06:59 18:59 Output Total 500 300 Balance -500 -300 Output: Urine 500 300 Other: Voiding Method Indwelling Catheter Indwelling Catheter - Exam GENERAL EXAM: Alert, frail, 63-year-old female, up in a chair, on 2 L nasal cannula, in no acute distress. HEAD: Normocephalic. EYES: Normal reaction of pupils, equal size. NOSE: Clear with pink turbinates. THROAT: No erythema or exudates. NECK: No masses, no JVD. CHEST: No chest wall deformity. LUNGS: Equal air entry with bilateral end expiratory wheeze, diminished. CVS: S1 and S2 normal with no audible murmur, regular rhythm. ABDOMEN: No hepatosplenomegaly, normal bowel sounds, no guarding or rigidity. SPINE: No scoliosis or deformity SKIN: No rashes. Stage II sacral decubitus ulcer CENTRAL NERVOUS SYSTEM: No focal deficits, tone is normal in all 4 extremities. EXTREMITIES: There is no peripheral edema. No clubbing, no cyanosis. Peripher al pulses are intact. - Labs CBC & Chem 7: 02/01/24 05:51 02/01/24 05:51 Labs: Abnormal Lab Results - Last 24 Hours (Table) 02/01/24 02/01/24 02/02/24 Range/Units 16:39 20:45 05:45 POC Glucose (mg/dL) 245 H 250 H 113 H (70-110) mg/dL 02/02/24 Range/Units 11:15 POC Glucose (mg/dL) 242 H (70-110) mg/dL Assessment and Plan Assessment: Acute hypoxic respiratory failure suspect secondary to aspiration pneumonia, currently on 2 L of oxygen by nasal cannula. CTA of the chest shows no evidence of any pulmonary embolism. Extensive atelectatic changes in lung base bilaterally right more than left with small pleural effusions. Consider aspiration. Currently on Zosyn Acute exacerbation of COPD Chronic and ongoing tobacco dependence Sarah in the urine currently on voriconazole Diabetes mellitus type 2 Hypertension Hyperlipidemia Depression Chronic urinary retention maintained on a chronic indwelling Horn catheter Weight loss, unexplained Compression fracture of the spine Stage II sacral decub ulcer Significant debility and impaired performance and functional status and the patient is currently unable to ambulate and she has been essentially chair/bedbound for the past month or so Frequent falls, hospitalized at [facility] Plan: The patient was seen and evaluated Labs and medications reviewed Bone scan pending for diffuse skeletal pain Continue the current treatment plan Will need subacute rehab at discharge I have personally seen and examined the patient, performed the documentation and the assessment and plan as written. Number of minutes spent on the visit: 10.
--- NOTE | 2024-02-02 15:07 | NM ---
EXAMINATION TYPE: NM bone scan whole body DATE OF EXAM: 02/02/2024 COMPARISON: NONE CLINICAL INDICATION: Female, 63 years old with history of Diffuse skeletal pain, fractures; Delayed whole-body scanning was performed following the injection of 23.8 mCi Tc 99m MDP. Images acq uired 6 hours post injection. FINDINGS: There are multiple areas of abnormal uptake involving the rib cage bilaterally. Abnormal uptake involving bilateral pubic rami likely posttraumatic. Faint uptake throughout the lower thoracic spine likely degenerative. Linear abnormal uptake involvin g the mid to lower lumbar spine and lower and mid thoracic spine could be related to prior compressio n fracture. Recommend x-ray correlation. Abnormal uptake involving the sacrum is nonspecific possibly related to remote trauma. Other etiologi es not excluded. Focal nonspecific area of uptake involving the sternum. IMPRESSION: 1. Bilateral multiple areas of abnormal uptake could be on the basis of prior trauma. Metastasis\intr aosseous lesions not excluded. 2. Abnormal uptake involving the sacrum and pubic rami possibly posttraumatic. No available x-rays co nsider x-ray correlation to exclude other etiologies. 3. Areas of linear uptake involving the lower thoracic and lumbar spine possibly related to compress ion fractures. Minor for Additional mild intensity uptake vertebral column likely degenerative.
[2024-02-02 16:34] LABS: Glucose,Whole Blood 243 mg/dL (70-110)
--- NOTE | 2024-02-02 17:13 | CDI ---
Documentation Clarification Form Date: 02/02/2024 04:59:03 PM From: Sheela Paz RN, CCDS Phone: [phone] Admit Date: 01/29/2024 04:44:00 PM Patient Name: Sha Lucio Visit Number: [id number] Discharge Date: ATTENTION: The Clinical Documentation Specialists (CDI) and [facility] Coding Staff appreciate your assistance in clarifying documentation. Please respond to the clarification below the line at the bottom and electronically sign. The CDI & [facility] Coding staff will review the response and follow-up if needed. Please note: Queries are made part of the Legal Health Record. If you have any questions, please contact the author of this message via ITS. Dr. Cory Lloyd Conflicting documentation has been found in the medical record. As attending physician, please provide clarification. Nursing wound assessment: Stage III coccyx pressure ulcer ID ongoing progress notes: -patient did have a stage III sacral pressure ulcer with slough tissue but no cellulitis Pulmonary ongoing progress notes: Stage II sacral decub ulcer History/Risk Factors: diabetes mellitus hypertension hyperlipidemia COPD, current everyday smoker, Clinical Indicators: 63-year-old female fall at that facility leading to lumbar compression fracture and the patient has been bedridden since then has developed a pressure ulcer on the sacral area. Treatment: Medihoney followed by moist dressing and frequent change of position Please clarify which diagnosis is most appropriate: [ ] Stage III sacral pressure ulcer with slough tissue but no cellulitis, POA [ ] Stage II sacral decub ulcer, POA [ ] Other (please specify) [ ] Unable to determine (Template Last Revised: November 2020) MTDD
[2024-02-02 20:33] LABS: Glucose,Whole Blood 282 mg/dL (70-110)
--- NOTE | 2024-02-03 00:52 | PN ---
PROGRESS NOTE SUBJECTIVE: A 63-year-old white female, came in with COPD, acute hypoxemic respiratory failure. Cardiology, Pulmonary have been seeing her. She is slowly improving. OBJECTIVE: VITAL SIGNS: Temp 97.7. O2 is 91% on 2 L. Blood pressure 145/75, pulse 80 to 84. GENERAL: She is thin, cachectic. LUNGS: Decreased breath sounds x4. CARDIOVASCULAR: S1, S2. EXTREMITIES: She has left leg weaker than the right leg. She has had this for a long time. ASSESSMENT: She had some kind of bone scan on all her bones. She has bilateral multiple areas of abnormal uptake on the basis of prior trauma. Metastatic bone lesion is not excluded. Abnormal uptake including the sacrum and pubic rami, possible posttraumatic. There were uptake in the lower thoracic and lumbar spine related to compression fractures, which she has had before. Continue current treatment. Prognosis guarded. PT, OT. She got up in the chair yesterday. Her breathing is slowly improving. She will need oxygen at home for sure. Continue current treatments. Prognosis is guarded. MMODL / IJN: [id number] /
--- NOTE | 2024-02-03 01:16 | PN ---
PROGRESS NOTE UTI related to Horn catheter, stage II sacral ulcer POA. MMJENNIFERL / IJN: [id number] /
[2024-02-03 05:49] LABS: Glucose,Whole Blood 157 mg/dL (70-110)
[2024-02-03 08:52] LABS: Basophils # (A) 0.02 X 10*3/uL (0.00-0.10); Basophils % (A) 0.1 %; Eosinophils # (A) 0 X 10*3/uL (0.04-0.35); Eosinophils % (A) 0 %; HCT 36.5 % (37.2-46.3); HGB 12.5 g/dL (12.0-15.0); Lymphocytes # (A) 0.22 X 10*3/uL (0.90-5.00); MCH 32.4 pg (27.0-32.0); MCHC 34.2 g/dL (32.0-37.0); MCV 94.6 FL (80.0-97.0); Mean Platelet Volume 10.2 FL (9.5-12.2); Monocytes # (A) 0.27 X 10*3/uL (0.20-1.00); Monocytes % (A) 1.2 %; NRBC Per 100 WBC 0 X 10*3/uL (0.00-0.01); Neutrophils # (A) 20.92 X 10*3/uL (1.80-7.70); Neutrophils % (A) 96.9 %; Platelet Count 474 X 10*3/uL (140-440); RBC 3.86 X 10*6/uL (4.10-5.20); RDW 13.5 % (11.5-14.5); WBC 21.61 X 10*3/uL (4.50-10.00)
[2024-02-03 09:06] LABS: ALT 20 U/L (8-44); AST 17 U/L (13-35); Albumin 3.3 g/dL (3.8-4.9); Albumin/Globulin Ratio 1.83 Ratio (1.60-3.17); Alkaline Phosphatase 325 U/L (41-126); BUN/Creat Ratio 65.25 Ratio (12.00-20.00); Blood Urea Nitrogen 26.1 mg/dL (9.0-27.0); Calcium 9.1 mg/dL (8.7-10.3); Carbon Dioxide 26.1 mmol/L (21.6-31.8); Chloride 104 mmol/L (96-109); Globulin 1.8 g/dL (1.6-3.3); Glucose 165 mg/dL (70-110); Potassium 3.7 mmol/L (3.5-5.5); Sodium 139 mmol/L (135-145); Total Bilirubin 0.2 mg/dL (0.3-1.2); Total Protein 5.1 g/dL (6.2-8.2)
[2024-02-03 11:55] LABS: Glucose,Whole Blood 311 mg/dL (70-110)
--- NOTE | 2024-02-03 13:55 | P.PN ---
Subjective Progress Note Date: 02/03/24 On 01/30/2024, the patient is being seen for shortness of breath. She is known to have COPD and diabetes mellitus and she is a chronic smoker. She has a chronic indwelling Horn catheter patient with a recent hospitalization at [facility]. She presented to us with worsening shortness of breath. The white cell count was 11 with a hemoglobin 13.2 and a platelet count of 542, normal electrolytes, normal renal function, UA was abnormal with many WBCs and budding yeast and a white cell count of 182. The patient is currently afebrile. The patient is hemodynamically stable and she is hypoxic currently 90s of oxygen by nasal cannula. Chest x-ray was done emergency department that showed moderate-sized right-sided pleural effusion. CT of the chest was also done which showed very limited effusion in the lung bases. The patient had significant atelectatic changes in the lower lobes bilaterally. No airspace disease or consolidation. No evidence of any pulmonary embolism. No evidence of any filling defects. Accordingly, the patient was hospitalized. She was started on Diflucan 20 mg p.o. daily. She was started on IV Zosyn and a pulmonary consultation was requested. Upon further questioning, it seems that the patient's health has been deteriorating over the past 1 year. The patient has lost considerable mount of weight. She has had issues with oropharyngeal thrush and she has not been able to take oral intake adequately and she has been meeting her caloric requirements. Such, the patient has not more than 50 pounds of weight. She had developed compression fractures. She has been feeling weak. Over the past 2 to 3 weeks, she has become essentially nonambulatory. As far as the Horn catheter, she claims that she has had urinary retention and the physicians at [facility] opted to keep the Horn catheter in place. The patient has been Bound/bedbound. She has developed a sacral decubitus ulcer stage II. She is weak, cachectic, malnourished, and remains debilitated at this point. The boyfriend was unable to take care of her at home. The visiting nurse made a recommendation for her to come into the hospital. She is a chronic smoker. She has COPD. Maintained on Symbicort. No home O2. The patient is seen today January 31, 2024 in follow-up on the regular medical floor. She is currently resting in bed. Awake and alert in no acute distress. She appears quite weak and debilitated. She states she had been falling at home and has fractures in her spine. She had been at [facility] recently. Currently feeling a bit better today compared to yesterday. She has a loose nonproductive cough. She is maintaining O2 saturations in the 90s on 2 L/min per nasal cannula. She remains on Zosyn. Glucose 201. Troponin negative x 2. She is continued on DuoNeb inhalations, Pulmicort and Perforomist inhalations, IV Solu-Medrol. NicoDerm patch in place. The patient is seen today February 01, 2024 and follow-up on the regular medical floor. She is currently sitting about a chair. She is awake and alert. She is quite uncomfortable. She states she hurts everywhere. Mainly from her previous falls. She is being maintained on Percocet alternating with Dilaudid. She is maintaining O2 saturations in the 90s on 2 L nasal cannula. Urine culture reveals Sarah. White count 29.1. Hemoglobin 13.9. Platelets 645. Sodium 142. Potassium 4.0. Bicarb 27. BUN 22. Creatinine 0.3. Glucose 78. She remains on DuoNeb inhalations, Pulmicort and Perforomist inhalations, Solu- Medrol and Singulair. NicoDerm patch is in place. She is on antibiotics in the form of Zosyn. She is on Diflucan. The patient is seen today February 02, 2024 in follow-up on the regular medical floor. She is awake and alert in no acute distress. Currently sitting up in a chair at the bedside. Denies any worsening shortness of breath, cough or congestion. She is maintaining O2 saturations in the 90s on 2 L/min per nasal cannula. She is feeling a bit better today compared to yesterday. Glucose 242. She remains on DuoNeb ventilations, Pulmicort and performing scintillations, Singulair, IV Solu-Medrol. NicoDerm patch in place. Continued on Zosyn. Currently on voriconazole for the Sarah in the urine. Being followed by infectious disease. The patient is seen today February 03, 2024 in follow-up on the regular medical floor. She is currently awake and alert in no acute distress. She is maintaining good O2 saturation in the 90s on 3 L/min per nasal cannula. She is afebrile. Hemodynamically stable. Her main complaints today are lower leg pain and buttocks pain from sacral decubitus ulcer and her previous falls. Bone scan rev ealed multiple areas of abnormal uptake could be on the basis of prior trauma. Abnormal uptake involving the sacrum and pubic rami possibly posttraumatic. Areas of linear uptake involving the lower thoracic and lumbar spine possibly related to compression fractures. White count 21.6. Hemoglobin 12.5. Platelets 474. Sodium 139. Potassium 3.7. Bicarb 26. BUN 26. Creatinine 0.4. Glucose 165. She remains on DuoNeb ventilations, Pulmicort and Perforomist inhalations, IV Solu-Medrol and Singulair. NicoDerm patch in place. Antibiotics in the form of Zosyn. Remains on voriconazole. Objective - Vital Signs Vital signs: Vital Signs Temp 98.3 F 02/03/24 07:11 Pulse 92 02/03/24 12:38 Resp 17 02/03/24 07:11 BP 145/73 02/03/24 07:11 Pulse Ox 91 L 02/03/24 07:11 FiO2 Intake & Output 02/02/24 02/03/24 02/03/24 18:59 06:59 18:59 Intake Total 200 Output Total 1850 600 Balance -1850 -600 200 Weight 47.627 kg Intake: Oral 200 Output: Urine 1850 600 Uretheral (Horn) 600 Other: Voiding Method Indwelling Catheter Indwelling Catheter - Exam GENERAL EXAM: Alert, frail, 63-year-old female, on 3 L nasal cannula, in no acute distress. HEAD: Normocephalic. EYES: Normal reaction of pupils, equal size. NOSE: Clear with pink turbinates. THROAT: No erythema or exudates. NECK: No masses, no JVD. CHEST: No chest wall deformity. LUNGS: Equal air entry with bilateral end expiratory wheeze, diminished. CVS: S1 and S2 normal with no audible murmur, regular rhythm. ABDOMEN: No hepatosplenomegaly, normal bowel sounds, no guarding or rigidity. SPINE: No scoliosis or deformity SKIN: No rashes. Stage II sacral decubitus ulcer CENTRAL NERVOUS SYSTEM: No focal deficits, tone is normal in all 4 extremities. EXTREMITIES: There is no peripheral edema. No clubbing, no cyanosis. Peripheral pulses are intact. - Labs CBC & Chem 7: 02/03/24 03:58 02/03/24 03:58 Labs: Abnormal Lab Results - Last 24 Hours (Table) 02/02/24 02/02/24 02/03/24 Range/Units 16:27 20:32 03:58 WBC 21.61 H (4.50-10.00) X 10*3/uL RBC 3.86 L (4.10-5.20) X 10*6/uL Hct 36.5 L (37.2-46.3) % MCH 32.4 H (27.0-32.0) pg Plt Count 474 H (140-440) X 10*3/uL Immature Gran # 0.18 H (0.00-0.04) X 10*3/uL Neutrophils # 20.92 H (1.80-7.70) X 10*3/uL Lymphocytes # 0.22 L (0.90-5.00) X 10*3/uL Eosinophils # 0 L (0.04-0.35) X 10*3/uL Creatinine (0.6-1.5) mg/dL BUN/Creatinine Ratio (12.00-20.00) Ratio Glucose (70-110) mg/dL POC Glucose (mg/dL) 243 H 282 H (70-110) mg/dL Total Bilirubin (0.3-1.2) mg/dL Alkaline Phosphatase (41-126) U/L Total Protein (6.2-8.2) g/dL Albumin (3.8-4.9) g/dL 02/03/24 02/03/24 02/03/24 Range/Units 03:58 05:46 11:54 WBC (4.50-10.00) X 10*3/uL RBC (4.10-5.20) X 10*6/uL Hct (37.2-46.3) % MCH (27.0-32.0) pg Plt Count (140-440) X 10*3/uL Immature Gran # (0.00-0.04) X 10*3/uL Neutrophils # (1.80-7.70) X 10*3/uL Lymphocytes # (0.90-5.00) X 10*3/uL Eosinophils # (0.04-0.35) X 10*3/uL Creatinine 0.4 L (0.6-1.5) mg/dL BUN/Creatinine Ratio 65.25 H (12.00-20.00) Ratio Glucose 165 H (70-110) mg/dL POC Glucose (mg/dL) 157 H 311 H (70-110) mg/dL Total Bilirubin 0.2 L (0.3-1.2) mg/dL Alkaline Phosphatase 325 H (41-126) U/L Total Protein 5.1 L (6.2-8.2) g/dL Albumin 3.3 L (3.8-4.9) g/dL Assessment and Plan Assessment: Acute hypoxic respiratory failure suspect secondary to aspiration pneumonia, currently on 2 L of oxygen by nasal cannula. CTA of the chest shows no evidence of any pulmonary embolism. Extensive atelectatic changes in lung base bi laterally right more than left with small pleural effusions. Consider aspiration. Currently on Zosyn Acute exacerbation of COPD Chronic and ongoing tobacco dependence Sarah in the urine currently on voriconazole Diabetes mellitus type 2 Hypertension Hyperlipidemia Depression Chronic urinary retention maintained on a chronic indwelling Horn catheter Weight loss, unexplained Compression fracture of the spine Stage II sacral decub ulcer Significant debility and impaired performance and functional status and the patient is currently unable to ambulate and she has been essentially c hair/bedbound for the past month or so Frequent falls, hospitalized at [facility] Plan: The patient was seen and evaluated Labs and medications reviewed Continue the current treatment plan Plan is for [facility] at discharge I have personally seen and examined the patient, performed the documentation and the assessment and plan as written. Number of minutes spent on the visit: 10.
--- NOTE | 2024-02-03 14:56 | P.PN ---
Subjective Progress Note Date: 02/01/24 Principal diagnosis: Reason for follow-up is UTI question of pneumonia and a sacral pressure ulcer Patient is a 63-year-old female with a past medical history significan t for diabetes mellitus hypertension hyperlipidemia COPD current everyday smoker, recent multiple admission to the [facility] for UTI followed with the compression fracture of the spine and hypoglycemia has been brought in to [facility] for evaluation of increasing shortness of breath did have abnormal CT angiogram of the chest concerning for effusion atelectasis positive UA concerning for UTI and the patient also have a sacral pressure ulcer. On today's evaluation that is 02/01/2024, Patient is afebrile patient is currently on 2 L nasal cannula oxygen any worsening and denies having any shortness of breath, the patient denies any chest pain or cough, the patient denies any nausea vomiting did not have any abdominal pain and no diarrhea. Patient did have a white count of 29.12, creatinine 0.3 Objective - Vital Signs Vital signs: Vital Signs Temp 97.7 F 02/01/24 13:05 Pulse 88 02/01/24 14:54 Resp 17 02/01/24 13:05 BP 109/73 02/01/24 13:05 Pulse Ox 91 L 02/01/24 13:05 FiO2 Intake & Output 01/31/24 02/01/24 02/01/24 18:59 06:59 18:59 Output Total 400 300 Balance -400 -300 Weight 47.627 kg Output: Urine 400 300 Other: Voiding Method Indwelling Catheter Indwelling Catheter Indwelling Catheter - Exam GENERAL DESCRIPTION: Middle-aged female lying in bed in no distress RESPIRATORY SYSTEM: Unlabored breathing , decreased breath sounds at bases HEART: S1 S2 regular rate and rhythm , ABDOMEN: Soft , no tenderness EXTREMITIES: No edema feet - Labs CBC & Chem 7: 02/03/24 03:58 02/03/24 03:58 Labs: Abnormal Lab Results - Last 24 Hours (Table) 01/31/24 01/31/24 02/01/24 Range/Units 16:09 20:50 05:51 WBC 29.12 H (4.50-10.00) X 10*3/uL RBC 4.07 L (4.10-5.20) X 10*6/uL MCV 98.0 H (80.0-97.0) FL MCH 32.4 H (27.0-32.0) pg Plt Count 645 H (140-440) X 10*3/uL Immature Gran # 0.32 H (0.00-0.04) X 10*3/uL Neutrophils # 28.24 H (1.80-7.70) X 10*3/uL Lymphocytes # 0.32 L (0.90-5.00) X 10*3/uL Eosinophils # 0 L (0.04-0.35) X 10*3/uL Creatinine (0.6-1.5) mg/dL BUN/Creatinine Ratio (12.00-20.00) Ratio Glucose (70-110) mg/dL POC Glucose (mg/dL) 230 H 252 H (70-110) mg/dL Total Bilirubin (0.3-1.2) mg/dL Alkaline Phosphatase (41-126) U/L Total Protein (6.2-8.2) g/dL Albumin (3.8-4.9) g/dL Albumin/Globulin Ratio (1.60-3.17) Ratio 02/01/24 02/01/24 02/01/24 Range/Units 05:51 05:56 11:44 WBC (4.50-10.00) X 10*3/uL RBC (4.10-5.20) X 10*6/uL MCV (80.0-97.0) FL MCH (27.0-32.0) pg Plt Count (140-440) X 10*3/uL Immature Gran # (0.00-0.04) X 10*3/uL Neutrophils # (1.80-7.70) X 10*3/uL Lymphocytes # (0.90-5.00) X 10*3/uL Eosinophils # (0.04-0.35) X 10*3/uL Creatinine 0.3 L (0.6-1.5) mg/dL BUN/Creatinine Ratio 74.67 H (12.00-20.00) Ratio Glucose 38 A* (70-110) mg/dL POC Glucose (mg/dL) 50 L 293 H (70-110) mg/dL Total Bilirubin 0.2 L (0.3-1.2) mg/dL Alkaline Phosphatase 358 H (41-126) U/L Total Protein 5.3 L (6.2-8.2) g/dL Albumin 3.2 L (3.8-4.9) g/dL Albumin/Globulin Ratio 1.52 L (1.60-3.17) Ratio Microbiology - Last 24 Hours (Table) 01/29/24 21:00 Urine Culture - Final Urine,Catheterized Sarah sp,not albicans/galbr Assessment and Plan (1) Stage III pressure ulcer of sacral region Current Visit: Yes Status: Acute Code(s): L89.153 - PRESSURE ULCER OF SACRAL REGION, STAGE 3 SNOMED Code(s): 74256383148960 (2) Urinary tract infection Current Visit: Yes Status: Acute Code(s): N39.0 - URINARY TRACT INFECTION, SITE NOT SPECIFIED SNOMED Code(s): 77985915 Plan: 1patient presented to hospital with increasing shortness of breath which is likely multifactorial with a possible component of pneumonia likely gram- negative as the patient has been in the hospital 2-patient also has significantly positive despite changing Horn catheter likely component of cath versus UTI likely from enteric gram-negative 3-patient did have a stage III sacral pressure ulcer with slough tissue but no cellulitis local wound care with [facility] followed by moist dressing and frequent change of position 4-patient urine cultures growing Sarah not albicans we will add voriconazole and monitor clinical response. 5leukocytosis more likely steroid related and will monitor closely Dictation was produced using [employer] dictation software. please excuse any grammatical, word or spelling errors. Time with Patient: Less than 30
--- NOTE | 2024-02-03 14:57 | P.PN ---
Subjective Progress Note Date: 02/02/24 Principal diagnosis: Reason for follow-up is UTI question of pneumonia and a sacral pressure ulcer Patient is a 63-year-old female with a past medical history significan t for diabetes mellitus hypertension hyperlipidemia COPD current everyday smoker, recent multiple admission to the [facility] for UTI followed with the compression fracture of the spine and hypoglycemia has been brought in to [facility] for evaluation of increasing shortness of breath did have abnormal CT angiogram of the chest concerning for effusion atelectasis positive UA concerning for UTI and the patient also have a sacral pressure ulcer. On today's evaluation that is 02/02/2024, patient has been afebrile, patient is breathing comfortably and is currently on 2 L nasal cannula oxygen, patient denies having any significant cough no chest pain shortness of breath, patient denies nausea vomiting or diarrhea and no abdominal pain, feeling slightly better No lab draw today, urine is growing Sarah not albicans Objective - Vital Signs Vital signs: Vital Signs Temp 97.7 F 02/02/24 14:00 Pulse 96 02/02/24 16:34 Resp 18 02/02/24 14:00 BP 145/75 02/02/24 14:00 Pulse Ox 91 L 02/02/24 14:00 FiO2 Intake & Output 02/01/24 02/02/24 02/02/24 18:59 06:59 18:59 Output Total 834 753 2842 Balance -500 -300 -1000 Output: Urine 991 797 3460 Other: Voiding Method Indwelling Catheter Indwelling Catheter - Exam GENERAL DESCRIPTION: Middle-aged female lying in bed in no distress RESPIRATORY SYSTEM: Unlabored breathing , decreased breath sounds at bases HEART: S1 S2 regular rate and rhythm , ABDOMEN: Soft , no tenderness EXTREMITIES: No edema feet - Labs CBC & Chem 7: 02/03/24 03:58 02/03/24 03:58 Labs: Abnormal Lab Results - Last 24 Hours (Table) 02/01/24 02/02/24 02/02/24 Range/Units 20:45 05:45 11:15 POC Glucose (mg/dL) 250 H 113 H 242 H (70-110) mg/dL 02/02/24 Range/Units 16:27 POC Glucose (mg/dL) 243 H (70-110) mg/dL Assessment and Plan (1) Stage III pressure ulcer of sacral region Current Visit: Yes Status: Acute Code(s): L89.153 - PRESSURE ULCER OF SACRAL REGION, STAGE 3 SNOMED Code(s): 69053327695397 (2) Urinary tract infection Current Visit: Yes Status: Acute Code(s): N39.0 - URINARY TRACT INFECTION, SITE NOT SPECIFIED SNOMED Code(s): 64118921 Plan: 1patient presented to hospital with increasing shortness of breath which is likely multifactorial with a possible component of pneumonia likely gram- negative as the patient has been in the hospital 2-patient also has significantly positive despite changing Horn catheter likely component of cath versus UTI likely from enteric gram-negative 3-patient did have a stage III sacral pressure ulcer with slough tissue but no cellulitis local wound care with [facility] followed by moist dressing and frequent change of position 4-patient urine cultures growing Sarah not albicans patient has been started on voriconazole to continue 5leukocytosis more likely steroid related we will repeat CBC with a.m. lab Dictation was produced using [employer] dictation software. please excuse any grammatical, word or spelling errors. Time with Patient: Less than 30
--- NOTE | 2024-02-03 14:59 | P.PN ---
Subjective Progress Note Date: 02/03/24 Principal diagnosis: Reason for follow-up is UTI question of pneumonia and a sacral pressure ulcer Patient is a 63-year-old female with a past medical history significan t for diabetes mellitus hypertension hyperlipidemia COPD current everyday smoker, recent multiple admission to the [facility] for UTI followed with the compression fracture of the spine and hypoglycemia has been brought in to [facility] for evaluation of increasing shortness of breath did have abnormal CT angiogram of the chest concerning for effusion atelectasis positive UA concerning for UTI and the patient also have a sacral pressure ulcer. On today's evaluation that is 02/03/2024,the patient denies any fever or any chills, patient is breathing comfortably on 3 L nasal oxygen, the patient denies chest pain shortness of breath and no significant cough, patient denies abdominal pain, no nausea vomiting or diarrhea. Feeling better no new symptoms. Patient white count is down to 21.61 creatinine 0.4 Objective - Vital Signs Vital signs: Vital Signs Temp 98.3 F 02/03/24 07:11 Pulse 92 02/03/24 12:38 Resp 17 02/03/24 07:11 BP 145/73 02/03/24 07:11 Pulse Ox 91 L 02/03/24 07:11 FiO2 Intake & Output 02/02/24 02/03/24 02/03/24 18:59 06:59 18:59 Intake Total 200 Output Total 1850 600 Balance -1850 -600 200 Weight 47.627 kg Intake: Oral 200 Output: Urine 1850 600 Uretheral (Horn) 600 Other: Voiding Method Indwelling Catheter Indwelling Catheter - Exam GENERAL DESCRIPTION: Middle-aged female lying in bed in no distress RESPIRATORY SYSTEM: Unlabored breathing , decreased breath sounds at bases HEART: S1 S2 regular rate and rhythm , ABDOMEN: Soft , no tenderness EXTREMITIES: No edema feet - Labs CBC & Chem 7: 02/03/24 03:58 02/03/24 03:58 Labs: Abnormal Lab Results - Last 24 Hours (Table) 02/02/24 02/02/24 02/03/24 Range/Units 16:27 20:32 03:58 WBC 21.61 H (4.50-10.00) X 10*3/uL RBC 3.86 L (4.10-5.20) X 10*6/uL Hct 36.5 L (37.2-46.3) % MCH 32.4 H (27.0-32.0) pg Plt Count 474 H (140-440) X 10*3/uL Immature Gran # 0.18 H (0.00-0.04) X 10*3/uL Neutrophils # 20.92 H (1.80-7.70) X 10*3/uL Lymphocytes # 0.22 L (0.90-5.00) X 10*3/uL Eosinophils # 0 L (0.04-0.35) X 10*3/uL Creatinine (0.6-1.5) mg/dL BUN/Creatinine Ratio (12.00-20.00) Ratio Glucose (70-110) mg/dL POC Glucose (mg/dL) 243 H 282 H (70-110) mg/dL Total Bilirubin (0.3-1.2) mg/dL Alkaline Phosphatase (41-126) U/L Total Protein (6.2-8.2) g/dL Albumin (3.8-4.9) g/dL 02/03/24 02/03/24 02/03/24 Range/Units 03:58 05:46 11:54 WBC (4.50-10.00) X 10*3/uL RBC (4.10-5.20) X 10*6/uL Hct (37.2-46.3) % MCH (27.0-32.0) pg Plt Count (140-440) X 10*3/uL Immature Gran # (0.00-0.04) X 10*3/uL Neutrophils # (1.80-7.70) X 10*3/uL Lymphocytes # (0.90-5.00) X 10*3/uL Eosinophils # (0.04-0.35) X 10*3/uL Creatinine 0.4 L (0.6-1.5) mg/dL BUN/Creatinine Ratio 65.25 H (12.00-20.00) Ratio Glucose 165 H (70-110) mg/dL POC Glucose (mg/dL) 157 H 311 H (70-110) mg/dL Total Bilirubin 0.2 L (0.3-1.2) mg/dL Alkaline Phosphatase 325 H (41-126) U/L Total Protein 5.1 L (6.2-8.2) g/dL Albumin 3.3 L (3.8-4.9) g/dL Assessment and Plan (1) Stage III pressure ulcer of sacral region Current Visit: Yes Status: Acute Code(s): L89.153 - PRESSURE ULCER OF SACRAL REGION, STAGE 3 SNOMED Code(s): 85730899610734 (2) Urinary tract infection Current Visit: Yes Status: Acute Code(s): N39.0 - URINARY TRACT INFECTION, SITE NOT SPECIFIED SNOMED Code(s): 19983716 (3) Aspiration pneumonia Current Visit: Yes Status: Acute Code(s): J69.0 - PNEUMONITIS DUE TO INHALATION OF FOOD AND VOMIT SNOMED Code(s): 566887723 Plan: 1patient presented to hospital with increasing shortness of breath which is likely multifactorial with a possible component of pneumonia likely gram- negative as the patient has been in the hospital versus aspiration etiology 2-patient also has significantly positive despite changing Horn catheter likely component of cath versus UTI likely from enteric gram-negative 3-patient did have a stage III sacral pressure ulcer with slough tissue but no cellulitis [facility] by moist dressing and frequent change of position 4-patient urine cultures growing Sarah not albicans patient to continue with voriconazole 5-with concern for possible aspiration pneumonia patient is covered with Zosyn will transition to oral Augmentin on discharge 6leukocytosis more likely steroid related, the patient white count is trending down Dictation was produced using [employer] dictation software. please excuse any grammatical, word or spelling errors. Time with Patient: Less than 30
[2024-02-03 18:01] LABS: Glucose,Whole Blood 324 mg/dL (70-110)
[2024-02-03 20:03] LABS: Glucose,Whole Blood 274 mg/dL (70-110)
[2024-02-04 05:55] LABS: Glucose,Whole Blood 62 mg/dL (70-110)
[2024-02-04 06:16] LABS: Glucose,Whole Blood 76 mg/dL (70-110)
[2024-02-04 11:29] LABS: Glucose,Whole Blood 252 mg/dL (70-110)
--- NOTE | 2024-02-04 14:02 | P.PN ---
Subjective Progress Note Date: 02/04/24 On 01/30/2024, the patient is being seen for shortness of breath. She is known to have COPD and diabetes mellitus and she is a chronic smoker. She has a chronic indwelling Horn catheter patient with a recent hospitalization at [facility]. She presented to us with worsening shortness of breath. The white cell count was 11 with a hemoglobin 13.2 and a platelet count of 542, normal electrolytes, normal renal function, UA was abnormal with many WBCs and budding yeast and a white cell count of 182. The patient is currently afebrile. The patient is hemodynamically stable and she is hypoxic currently 90s of oxygen by nasal cannula. Chest x-ray was done emergency department that showed moderate-sized right-sided pleural effusion. CT of the chest was also done which showed very limited effusion in the lung bases. The patient had significant atelectatic changes in the lower lobes bilaterally. No airspace disease or consolidation. No evidence of any pulmonary embolism. No evidence of any filling defects. Accordingly, the patient was hospitalized. She was started on Diflucan 20 mg p.o. daily. She was started on IV Zosyn and a pulmonary consultation was requested. Upon further questioning, it seems that the patient's health has been deteriorating over the past 1 year. The patient has lost considerable mount of weight. She has had issues with oropharyngeal thrush and she has not been able to take oral intake adequately and she has been meeting her caloric requirements. Such, the patient has not more than 50 pounds of weight. She had developed compression fractures. She has been feeling weak. Over the past 2 to 3 weeks, she has become essentially nonambulatory. As far as the Horn catheter, she claims that she has had urinary retention and the physicians at [facility] opted to keep the Horn catheter in place. The patient has been Bound/bedbound. She has developed a sacral decubitus ulcer stage II. She is weak, cachectic, malnourished, and remains debilitated at this point. The boyfriend was unable to take care of her at home. The visiting nurse made a recommendation for her to come into the hospital. She is a chronic smoker. She has COPD. Maintained on Symbicort. No home O2. The patient is seen today January 31, 2024 in follow-up on the regular medical floor. She is currently resting in bed. Awake and alert in no acute distress. She appears quite weak and debilitated. She states she had been falling at home and has fractures in her spine. She had been at [facility] recently. Currently feeling a bit better today compared to yesterday. She has a loose nonproductive cough. She is maintaining O2 saturations in the 90s on 2 L/min per nasal cannula. She remains on Zosyn. Glucose 201. Troponin negative x 2. She is continued on DuoNeb inhalations, Pulmicort and Perforomist inhalations, IV Solu-Medrol. NicoDerm patch in place. The patient is seen today February 01, 2024 and follow-up on the regular medical floor. She is currently sitting about a chair. She is awake and alert. She is quite uncomfortable. She states she hurts everywhere. Mainly from her previous falls. She is being maintained on Percocet alternating with Dilaudid. She is maintaining O2 saturations in the 90s on 2 L nasal cannula. Urine culture reveals Sarah. White count 29.1. Hemoglobin 13.9. Platelets 645. Sodium 142. Potassium 4.0. Bicarb 27. BUN 22. Creatinine 0.3. Glucose 78. She remains on DuoNeb inhalations, Pulmicort and Perforomist inhalations, Solu- Medrol and Singulair. NicoDerm patch is in place. She is on antibiotics in the form of Zosyn. She is on Diflucan. The patient is seen today February 02, 2024 in follow-up on the regular medical floor. She is awake and alert in no acute distress. Currently sitting up in a chair at the bedside. Denies any worsening shortness of breath, cough or congestion. She is maintaining O2 saturations in the 90s on 2 L/min per nasal cannula. She is feeling a bit better today compared to yesterday. Glucose 242. She remains on DuoNeb ventilations, Pulmicort and performing scintillations, Singulair, IV Solu-Medrol. NicoDerm patch in place. Continued on Zosyn. Currently on voriconazole for the Sarah in the urine. Being followed by infectious disease. The patient is seen today February 03, 2024 in follow-up on the regular medical floor. She is currently awake and alert in no acute distress. She is maintaining good O2 saturation in the 90s on 3 L/min per nasal cannula. She is afebrile. Hemodynamically stable. Her main complaints today are lower leg pain and buttocks pain from sacral decubitus ulcer and her previous falls. Bone scan rev ealed multiple areas of abnormal uptake could be on the basis of prior trauma. Abnormal uptake involving the sacrum and pubic rami possibly posttraumatic. Areas of linear uptake involving the lower thoracic and lumbar spine possibly related to compression fractures. White count 21.6. Hemoglobin 12.5. Platelets 474. Sodium 139. Potassium 3.7. Bicarb 26. BUN 26. Creatinine 0.4. Glucose 165. She remains on DuoNeb ventilations, Pulmicort and Perforomist inhalations, IV Solu-Medrol and Singulair. NicoDerm patch in place. Antibiotics in the form of Zosyn. Remains on voriconazole. The patient is seen today February 04, 2024 in follow-up on the regular medical floor. She is currently sitting up in bed. Awake and alert in no acute distress. She is feeling quite a bit better today. Less pain and discomfort. She denies any worsening shortness of breath, cough or congestion. She is maintaining O2 saturations in the 90s on 2 L/min per nasal cannula. She has been afebrile. Hemodynamically stable. Glucose 252. She remains on bronchodilators, Singulair and Solu-Medrol. NicoDerm patch in place. Antibiotics in the form of Zosyn. Remains on voriconazole. Objective - Vital Signs Vital signs: Vital Signs Temp 97.6 F 02/04/24 07:06 Pulse 88 02/04/24 12:01 Resp 17 02/04/24 07:06 BP 147/71 02/04/24 07:06 Pulse Ox 91 L 02/04/24 09:01 FiO2 Intake & Output 02/03/24 02/04/24 02/04/24 18:59 06:59 18:59 Intake Total 200 Output Total 600 Balance 200 -600 Weight 47.627 kg Intake: Oral 200 Output: Urine 600 Uretheral (Horn) 400 Other: Voiding Method Indwelling Catheter Indwelling Catheter # Voids 2 - Exam GENERAL EXAM: Alert, frail, 63-year-old female, sitting up in bed, on 2 L nasal cannula, in no acute distress. HEAD: Normocephalic. EYES: Normal reaction of pupils, equal size. NOSE: Clear with pink turbinates. THROAT: No erythema or exudates. NECK: No masses, no JVD. CHEST: No chest wall deformity. LUNGS: Equal air entry with bilateral end expiratory wheeze, diminished. CVS: S1 and S2 normal with no audible murmur, regular rhythm. ABDOMEN: No hepatosplenomegaly, normal bowel sounds, no guarding or rigidity. SPINE: No scoliosis or deformity SKIN: No rashes. Stage II sacral decubitus ulcer CENTRAL NERVOUS SYSTEM: No focal deficits, tone is normal in all 4 extremities. EXTREMITIES: There is no peripheral edema. No clubbing, no cyanosis. Peripheral pulses are intact. - Labs CBC & Chem 7: 02/03/24 03:58 02/03/24 03:58 Labs: Abnormal Lab Results - Last 24 Hours (Table) 02/03/24 02/03/24 02/04/24 Range/Units 18:00 20:02 05:54 POC Glucose (mg/dL) 324 H 274 H 62 L (70-110) mg/dL 02/04/24 Range/Units 11:27 POC Glucose (mg/dL) 252 H (70-110) mg/dL Assessment and Plan Assessment: Acute hypoxic respiratory failure suspect secondary to aspiration pneumonia, currently on 2 L of oxygen by nasal cannula. CTA of the chest shows no evidence of any pulmonary embolism. Extensive atelectatic changes in lung base bilaterally right more than left with small pleural effusions. Consider aspiration. Currently on Zosyn Acute exacerbation of COPD Chronic and ongoing tobacco dependence Sarah in the urine currently on voriconazole Diabetes mellitus type 2 Hypertension Hyperlipidemia Depression Chronic urinary retention maintained on a chronic indwelling Horn catheter Weight loss, unexplained Compression fracture of the spine Stage II sacral decub ulcer Significant debility and impaired performance and functional status and the patient is currently unable to ambulate and she has been essentially chair/bed bound for the past month or so Frequent falls, hospitalized at [facility] Plan: The patient was seen and evaluated Labs and medications reviewed Continue the current treatment plan Titrate down the FiO2 as tolerated Increase her activity as tolerated Plan is for [facility] at discharge I have personally seen and examined the patient, performed the documentation and the assessment and plan as written. Number of minutes spent on the visit: 10.
--- NOTE | 2024-02-04 16:14 | P.PN ---
Subjective Progress Note Date: 02/04/24 Principal diagnosis: Reason for follow-up is UTI question of pneumonia and a sacral pressure ulcer Patient is a 63-year-old female with a past medical history significan t for diabetes mellitus hypertension hyperlipidemia COPD current everyday smoker, recent multiple admission to the [facility] for UTI followed with the compression fracture of the spine and hypoglycemia has been brought in to [facility] for evaluation of increasing shortness of breath did have abnormal CT angiogram of the chest concerning for effusion atelectasis positive UA concerning for UTI and the patient also have a sacral pressure ulcer. On today's evaluation that is 02/04/2024,the patient remains to be afebrile, patient is on 2 L nasal cannula supplemental oxygen and denies any shortness of breath no chest pain or cough.Patient denies having any nausea or vomiting, no abdominal pain and no diarrhea has been reported, feeling better no new symptoms. No new labs has been repeated today Objective - Vital Signs Vital signs: Vital Signs Temp 97.6 F 02/04/24 07:06 Pulse 88 02/04/24 12:01 Resp 17 02/04/24 07:06 BP 147/71 02/04/24 07:06 Pulse Ox 91 L 02/04/24 09:01 FiO2 Intake & Output 02/03/24 02/04/24 02/04/24 18:59 06:59 18:59 Intake Total 200 Output Total 600 Balance 200 -600 Weight 47.627 kg Intake: Oral 200 Output: Urine 600 Uretheral (Horn) 400 Other: Voiding Method Indwelling Catheter Indwelling Catheter # Voids 2 - Exam GENERAL DESCRIPTION: Middle-aged female lying in bed in no distress RESPIRATORY SYSTEM: Unlabored breathing , decreased breath sounds at bases HEART: S1 S2 regular rate and rhythm , ABDOMEN: Soft , no tenderness EXTREMITIES: No edema feet - Labs CBC & Chem 7: 02/03/24 03:58 02/03/24 03:58 Labs: Abnormal Lab Results - Last 24 Hours (Table) 02/03/24 02/03/24 02/04/24 Range/Units 18:00 20:02 05:54 POC Glucose (mg/dL) 324 H 274 H 62 L (70-110) mg/dL 02/04/24 Range/Units 11:27 POC Glucose (mg/dL) 252 H (70-110) mg/dL Assessment and Plan (1) Stage III pressure ulcer of sacral region Current Visit: Yes Status: Acute Code(s): L89.153 - PRESSURE ULCER OF SACRAL REGION, STAGE 3 SNOMED Code(s): 74358468161495 (2) Urinary tract infection Current Visit: Yes Status: Acute Code(s): N39.0 - URINARY TRACT INFECTION, SITE NOT SPECIFIED SNOMED Code(s): 93553111 (3) Aspiration pneumonia Current Visit: Yes Status: Acute Code(s): J69.0 - PNEUMONITIS DUE TO INHALATION OF FOOD AND VOMIT SNOMED Code(s): 309125243 Plan: 1patient presented to hospital with increasing shortness of breath which is likely multifactorial with a possible component of pneumonia likely gram- negative as the patient has been in the hospital versus aspiration etiology 2-patient also has significantly positive despite changing Horn catheter likely component of cath versus UTI likely from enteric gram-negative 3-patient did have a stage III sacral pressure ulcer with slough tissue but no cellulitis local wound care with Medihoney followed by moist dressing and frequent change of position 4-patient urine cultures growing Sarah not albicans patient to continue with voriconazole 5-with concern for possible aspiration pneumonia patient is covered with Zosyn will transition to oral antibiotics on discharge 6leukocytosis more likely steroid related, the patient white count was down to 21,000 as of yesterday will repeat CBC with a.m. lab Dictation was produced using [employer] dictation software. please excuse any grammatical, word or spelling errors. Time with Patient: Less than 30
[2024-02-04 16:30] LABS: Glucose,Whole Blood 291 mg/dL (70-110)
[2024-02-04 20:11] LABS: Glucose,Whole Blood 269 mg/dL (70-110)
--- NOTE | 2024-02-04 22:20 | PN ---
PROGRESS NOTE SUBJECTIVE: She did go to rehab center, seen for [employer]. Need to continue with her oxygen. Continues to improve with her breathing. Sugars are under better control 62 to 300s. OBJECTIVE: HEENT: Head normocephalic. GENERAL: Thin, cachectic. CARDIOVASCULAR: S1, S2. LUNGS: Transmitted upper sounds. HEMATOLOGY: Negative for Homans. PSYCH: Fair mood and affect. ABDOMEN: Soft, nontender. EXTREMITIES: Minimal edema Seen by pulmonology, Cardiology. She is breathing better. She is going to go to a penitentiary maybe tomorrow. Pain control for severe neuropathy and leg weakness. Acute hypoxic respiratory failure, aspiration pneumonia, COPD, nicotine dependence. Sarah in the urine. Diabetes mellitus type 2, hypertension, dyslipidemia, depressions, chronic urinary retention, weight loss for years, compression fracture, stage II sacral ulcer. Labs reviewed. Current medication treatment, FiO2 as tolerated. Increase her activity, seen for [employer]. Prognosis guarded. MMODL / IJN: [id number] /
[2024-02-05 06:23] LABS: Glucose,Whole Blood 87 mg/dL (70-110)
[2024-02-05 11:40] LABS: Glucose,Whole Blood 268 mg/dL (70-110)
--- NOTE | 2024-02-05 12:32 | P.PN ---
Subjective Progress Note Date: 02/05/24 Principal diagnosis: Acute hypoxic respiratory failure secondary to aspiration pneumonia and acute exacerbation of COPD. On 01/30/2024, the patient is being seen for shortness of breath. She is known to have COPD and diabetes mellitus and she is a chronic smoker. She has a chronic indwelling Horn catheter patient with a recent hospitalization at [facility]. She presented to us with worsening shortness of breath. The white cell count was 11 with a hemoglobin 13.2 and a platelet count of 542, normal electrolytes, normal renal function, UA was abnormal with many WBCs and budding yeast and a white cell count of 182. The patient is currently afebrile. The patient is hemodynamically stable and she is hypoxic currently 90s of oxygen by nasal cannula. Chest x-ray was done emergency department that showed moderate-sized right-sided pleural effusion. CT of the chest was also done which showed very limited effusion in the lung bases. The patient had sig nificant atelectatic changes in the lower lobes bilaterally. No airspace disease or consolidation. No evidence of any pulmonary embolism. No evidence of any filling defects. Accordingly, the patient was hospitalized. She was started on Diflucan 20 mg p.o. daily. She was started on IV Zosyn and a pulmonary consultation was requested. Upon further questioning, it seems that the patient's health has been deteriorating over the past 1 year. The patient has lost considerable mount of weight. She has had issues with oropharyngeal thrush and she has not been able to take oral intake adequately and she has been meeting her caloric requirements. Such, the patient has not more than 50 pounds of weight. She had developed compression fractures. She has been feeling weak. Over the past 2 to 3 weeks, she has become essentially nonambulatory. As far as the Horn catheter, she claims that she has had urinary retention and the physicians at [facility] opted to keep the Horn catheter in place. The patient has been Bound/bedbound. She has developed a sacral decubitus ulcer stage II. She is weak, cachectic, malnourished, and remains debilitated at this point. The boyfriend was unable to take care of her at home. The visiting nurse made a recommendation for her to come into the hospital. She is a chronic smoker. She has COPD. Maintained on Symbicort. No home O2. The patient is seen today January 31, 2024 in follow-up on the regular medical floor. She is currently resting in bed. Awake and alert in no acute distress. She appears quite weak and debilitated. She states she had been falling at home and has fractures in her spine. She had been at [facility] recently. Currently feeling a bit better today compared to yesterday. She has a loose nonproductive cough. She is maintaining O2 saturations in the 90s on 2 L/min per nasal cannula. She remains on Zosyn. Glucose 201. Troponin negative x 2. She is continued on DuoNeb inhalations, Pulmicort and Perforomist inhalations, IV Solu-Medrol. NicoDerm patch in place. The patient is seen today February 01, 2024 and follow-up on the regular medical floor. She is currently sitting about a chair. She is awake and alert. She is quite uncomfortable. She states she hurts everywhere. Mainly from her previous falls. She is being maintained on Percocet alternating with Dilaudid. She is ma intaining O2 saturations in the 90s on 2 L nasal cannula. Urine culture reveals Sarah. White count 29.1. Hemoglobin 13.9. Platelets 645. Sodium 142. Potassium 4.0. Bicarb 27. BUN 22. Creatinine 0.3. Glucose 78. She remains on DuoNeb inhalations, Pulmicort and Perforomist inhalations, Solu-Medrol and Singulair. NicoDerm patch is in place. She is on antibiotics in the form of Zosyn. She is on Diflucan. The patient is seen today February 02, 2024 in follow-up on the regular medical floor. She is awake and alert in no acute distress. Currently sitting up in a chair at the bedside. Denies any worsening shortness of breath, cough or congestion. She is maintaining O2 saturations in the 90s on 2 L/min per nasal cannula. She is feeling a bit better today compared to yesterday. Glucose 242. She remains on DuoNeb ventilations, Pulmicort and performing scintillations, Singulair, IV Solu-Medrol. NicoDerm patch in place. Continued on Zosyn. Currently on voriconazole for the Sarah in the urine. Being followed by infectious disease. The patient is seen today February 03, 2024 in follow-up on the regular medical floor. She is currently awake and alert in no acute distress. She is maintaining good O2 saturation in the 90s on 3 L/min per nasal cannula. She is afebrile. Hemody namically stable. Her main complaints today are lower leg pain and buttocks pain from sacral decubitus ulcer and her previous falls. Bone scan revealed multiple areas of abnormal uptake could be on the basis of prior trauma. Abnormal uptake involving the sacrum and pubic rami possibly posttraumatic. Areas of linear uptake involving the lower thoracic and lumbar spine possibly related to compression fractures. White count 21.6. Hemoglobin 12.5. Platelets 474. Sodium 139. Potassium 3.7. Bicarb 26. BUN 26. Creatinine 0.4. Glucose 165. She remains on DuoNeb ventilations, Pulmicort and Perforomist inhalations, IV Solu-Medrol and Singulair. NicoDerm patch in place. Antibiotics in the form of Zosyn. Remains on voriconazole. The patient is seen today February 04, 2024 in follow-up on the regular medical floor. She is currently sitting up in bed. Awake and alert in no acute distres s. She is feeling quite a bit better today. Less pain and discomfort. She denies any worsening shortness of breath, cough or congestion. She is maintaining O2 saturations in the 90s on 2 L/min per nasal cannula. She has been afebrile. Hemodynamically stable. Glucose 252. She remains on [facility] hodilators, Singulair and Solu-Medrol. NicoDerm patch in place. Antibiotics in the form of Zosyn. Remains on voriconazole. Patient was reevaluated today on 02/05/2024, patient is doing great, asymp tomatic, she has no active pulmonary symptoms, patient is being considered for possible discharge to rehab today. And I think that is very appropriate. Objective - Vital Signs Vital signs: Vital Signs Temp 98.3 F 02/05/24 06:59 Pulse 89 02/05/24 11:55 Resp 19 02/05/24 08:14 BP 135/68 02/05/24 06:59 Pulse Ox 91 L 02/05/24 06:59 FiO2 Intake & Output 02/04/24 02/05/24 02/05/24 18:59 06:59 18:59 Output Total 675 Balance -675 Output: Urine 675 Other: Voiding Method Indwelling Catheter Indwelling Catheter Indwelling Catheter - Exam GENERAL EXAM: Alert, frail, 63-year-old female, sitting up in bed, on 2 L nasal cannula, in no acute distress. HEAD: Normocephalic. EYES: Normal reaction of pupils, equal size. NOSE: Clear with pink turbinates. THROAT: No erythema or exudates. NECK: No masses, no JVD. CHEST: No chest wall deformity. LUNGS: Equal air entry with bilateral end expiratory wheeze, diminished. CVS: S1 and S2 normal with no audible murmur, regular rhythm. ABDOMEN: No hepatosplenomegaly, normal bowel sounds, no guarding or rigidity. SKIN: No rashes. Stage II sacral decubitus ulcer CENTRAL NERVOUS SYSTEM: No focal deficits, tone is normal in all 4 extremities. EXTREMITIES: There is no peripheral edema. No clubbing, no cyanosis. Peripheral pulses are intact. - Labs CBC & Chem 7: 02/03/24 03:58 02/03/24 03:58 Labs: Abnormal Lab Results - Last 24 Hours (Table) 02/04/24 02/04/24 02/05/24 Range/Units 16:28 20:10 11:38 POC Glucose (mg/dL) 291 H 269 H 268 H (70-110) mg/dL Assessment and Plan Assessment: Impression Acute hypoxic respiratory failure suspect secondary to aspiration pneumonia, significantly improved Acute exacerbation of COPD, resolved Chronic and ongoing tobacco dependence Sarah in the urine currently on voriconazole Diabetes mellitus type 2 Hypertension Hyperlipidemia Depression Chronic urinary retention maintained on a chronic indwelling Horn catheter Weight loss, unexplained Compression fracture of the spine Stage II sacral decub ulcer Significant debility and impaired performance and functional status and the patient is currently unable to ambulate and she has been essentially chair/bedbound for the past month or so Frequent falls, hospitalized at [facility] Plan: Agree with discharge planning continue present medications for COPD patient to be going to rehab. Follow-up on outpatient basis. Titrate down the FiO2 as tolerated Time with Patient: Less than 30
--- NOTE | 2024-02-05 13:53 | P.PN ---
Subjective Progress Note Date: 02/05/24 Principal diagnosis: Reason for follow-up is UTI question of pneumonia and a sacral pressure ulcer Patient is a 63-year-old female with a past medical history significan t for diabetes mellitus hypertension hyperlipidemia COPD current everyday smoker, recent multiple admission to the [facility] for UTI followed with the compression fracture of the spine and hypoglycemia has been brought in to [facility] for evaluation of increasing shortness of breath did have abnormal CT angiogram of the chest concerning for effusion atelectasis positive UA concerning for UTI and the patient also have a sacral pressure ulcer. On today's evaluation that is 02/05/2024, the patient continues to be afebrile, the patient is on 4 L nasal cannula oxygen and breathing comfortably, the Pt denies having any chest pain or cough, the patient denies having any abdominal pain no vomiting or any diarrhea has been reported by the nursing staff, patient mention feeling better. No labs done today Objective - Vital Signs Vital signs: Vital Signs Temp 98.3 F 02/05/24 06:59 Pulse 88 02/05/24 08:39 Resp 19 02/05/24 08:14 BP 135/68 02/05/24 06:59 Pulse Ox 91 L 02/05/24 06:59 FiO2 Intake & Output 02/04/24 02/05/24 02/05/24 18:59 06:59 18:59 Output Total 675 Balance -675 Output: Urine 675 Other: Voiding Method Indwelling Catheter Indwelling Catheter Indwelling Catheter - Exam GENERAL DESCRIPTION: Middle-aged female lying in bed in no distress RESPIRATORY SYSTEM: Unlabored breathing , decreased breath sounds at bases HEART: S1 S2 regular rate and rhythm , ABDOMEN: Soft , no tenderness EXTREMITIES: No edema feet - Labs CBC & Chem 7: 02/03/24 03:58 02/03/24 03:58 Labs: Abnormal Lab Results - Last 24 Hours (Table) 02/04/24 02/04/24 02/04/24 Range/Units 11:27 16:28 20:10 POC Glucose (mg/dL) 252 H 291 H 269 H (70-110) mg/dL Assessment and Plan (1) Stage III pressure ulcer of sacral region Current Visit: Yes Status: Acute Code(s): L89.153 - PRESSURE ULCER OF SACRAL REGION, STAGE 3 SNOMED Code(s): 41644834607761 (2) Urinary tract infection Current Visit: Yes Status: Acute Code(s): N39.0 - URINARY TRACT INFECTION, SITE NOT SPECIFIED SNOMED Code(s): 42565836 (3) Aspiration pneumonia Current Visit: Yes Status: Acute Code(s): J69.0 - PNEUMONITIS DUE TO INHALATION OF FOOD AND VOMIT SNOMED Code(s): 677658322 Plan: 1patient presented to hospital with increasing shortness of breath which is likely multifactorial with a possible component of pneumonia likely gram- negative as the patient has been in the hospital versus aspiration etiology 2-patient also has significantly positive despite changing Horn catheter likely component of cath versus UTI likely from enteric gram-negative 3-patient did have a stage III sacral pressure ulcer with slough tissue but no cellulitis local wound care with Medihoney followed by moist dressing and frequent change of position 4-patient urine cultures growing Sarah not albicans patient to continue with voriconazole 5-with concern for possible aspiration pneumonia patient is covered with Zosyn will transition to oral antibiotics when stable for discharge from admitting team 6leukocytosis more likely steroid related, the patient white count was down to 21,000, CBC pending from this morning Dictation was produced using [employer] dictation software. please excuse any grammatical, word or spelling errors. Time with Patient: Less than 30
[2024-02-05 16:43] LABS: Glucose,Whole Blood 303 mg/dL (70-110)
[2024-02-05 20:48] LABS: Glucose,Whole Blood 243 mg/dL (70-110)
[2024-02-05] MEDS: PIPERACILLIN-TAZOBACTAM 3.375 GM in SODIUM CHLORIDE 0.9% 100 ML IVPB SCH ×2 (21:04→21:17)
--- NOTE | 2024-02-06 03:17 | DS ---
DISCHARGE SUMMARY HISTORY OF PRESENT ILLNESS: This is a white female, came in with acute on chronic respiratory failure from not having her oxygen at home. She was treated with breathing treatments, updraft treatments. She had aspiration, pneumonia treated with IV antibiotics. COPD exacerbation, nicotine addiction, insulin-dependent diabetes mellitus which is controlled, hypertension, dyslipidemia, depression, chronic urinary retention for which a Horn was given, compression fractures of the back, spine. She is going to rehab for generalized leg weakness. She will need to be set up with home oxygen portable at night, nocturnal oxygen when she goes home or should not leave the custodial before she gets that. She has frequent falls. She needs more PT OT to get her improvement better with her walking until she is more stable. need for oxygen at home, portable and nocturnal until her breathing treatments. She will be on a diabetic diet. Try to limit her pop and sugar intake, drink lots of water. DISCHARGE MEDICATIONS: She will be on, 1. Voriconazole 200 mg b.i.d. for a week. 2. She will be on Augmentin 500 mg t.i.d. for a week. 3. Nicotine patch 14 mg daily. 4. Perforomist nebulizer treatment 20 mcg b.i.d. 5. DuoNeb q.i.d. nebulizer solutions. 6. Symbicort 160/4.5 p.r.n. for shortness of breath. 7. Amlodipine 5 b.i.d. 8. Lexapro 10 mg daily. 9. Percocet 7.5 q.6 hours p.r.n. She has been taking medicine as tolerated. 10.Lactobacillus. 11.Culturelle probiotic twice a day. 12.Pantoprazole 40 b.i.d. 13.50 units of Lantus daily at night, 5 units with meals t.i.d. of Humalog or NovoLog. 14.Actos 15 mg daily. 15.Melatonin 3 mg at night for sleeping also. 16.Mucinex 600 b.i.d. 17.Singulair 10 mg daily. 18.Pulmicort nebulizer b.i.d. with budesonide 1 mg b.i.d. nebulized. CONDITION: Stable. PROGNOSIS: Guarded. ACTIVITY: Ambulate as tolerated. Please see further orders. Do not forget to take your set up with oxygen to go home for the day and at night. MMODL / IJN: [id number] /
[2024-02-06] MEDS: PIPERACILLIN-TAZOBACTAM 3.375 GM in SODIUM CHLORIDE 0.9% 100 ML IVPB SCH (03:33)
[2024-02-06 05:50] LABS: Glucose,Whole Blood 161 mg/dL (70-110)
--- NOTE | 2024-02-06 10:38 | PN ---
PROGRESS NOTE SUBJECTIVE: Severe COPD, oxygen dependent, 24 hours a day, is on IV Solu-Medrol for her breathing. We are going to cut that down, may be switched to oral prednisone as she is going to go to the [place] [facility]. She remains on her breathing treatments, insulin for diabetes. She is in good spirits, but she has weakness in her legs. She is unable to ambulate very far, up to the chair only. If she needs help, should need to get stronger walking before she goes home. She need to go home with oxygen 24 hours a day at this point. Prognosis is guarded. She continues with PT/OT. OBJECTIVE: GENERAL: She is thin, cachectic. VITAL SIGNS: Reviewed. LUNGS: Decreased breath sounds x4. PSYCH: Fair mood and affect. CARDIOVASCULAR: S1, S2. EXTREMITIES: No edema. ASSESSMENT: COPD exacerbation, pulmonary hypertension, coronary artery disease, insulin-dependent diabetes mellitus. Prognosis extremely guarded, uncontrolled. Continue current treatments. Switch steroids to oral. She will go to the [place] [facility] tomorrow for PT/OT. MMLANDON / KALIN: [id number] /
[2024-02-06 11:04] LABS: Basophils # (A) 0.04 X 10*3/uL (0.00-0.10); Basophils % (A) 0.2 %; Eosinophils # (A) 0 X 10*3/uL (0.04-0.35); Eosinophils % (A) 0 %; HCT 39.6 % (37.2-46.3); HGB 13.3 g/dL (12.0-15.0); Lymphocytes # (A) 0.29 X 10*3/uL (0.90-5.00); Lymphocytes % (A) 1.2 %; MCH 32.6 pg (27.0-32.0); MCHC 33.6 g/dL (32.0-37.0); MCV 97.1 FL (80.0-97.0); Mean Platelet Volume 10.3 FL (9.5-12.2); Monocytes # (A) 0.38 X 10*3/uL (0.20-1.00); Monocytes % (A) 1.6 %; NRBC Per 100 WBC 0 X 10*3/uL (0.00-0.01); Neutrophils # (A) 23.56 X 10*3/uL (1.80-7.70); Neutrophils % (A) 96.2 %; Platelet Count 417 X 10*3/uL (140-440); RBC 4.08 X 10*6/uL (4.10-5.20); RDW 13.4 % (11.5-14.5); WBC 24.47 X 10*3/uL (4.50-10.00)
[2024-02-06] MEDS: predniSONE 20 MG TAB PO SCH (11:13)
[2024-02-06 11:28] LABS: ALT 20 U/L (8-44); AST 17 U/L (13-35); Albumin 3.2 g/dL (3.8-4.9); Albumin/Globulin Ratio 1.68 Ratio (1.60-3.17); Alkaline Phosphatase 259 U/L (41-126); Blood Urea Nitrogen 23.4 mg/dL (9.0-27.0); C Reactive Protein <0.30 mg/dL (0.00-0.80); Carbon Dioxide 27.2 mmol/L (21.6-31.8); Chloride 102 mmol/L (96-109); Globulin 1.9 g/dL (1.6-3.3); Glucose 121 mg/dL (70-110); Potassium 4.2 mmol/L (3.5-5.5); Sodium 138 mmol/L (135-145); Total Bilirubin 0.2 mg/dL (0.3-1.2); Total Protein 5.1 g/dL (6.2-8.2)
[2024-02-06 11:44] LABS: Glucose,Whole Blood 219 mg/dL (70-110)
--- NOTE | 2024-02-06 14:19 | P.PN ---
Subjective Progress Note Date: 02/06/24 Principal diagnosis: Acute hypoxic respiratory failure secondary to aspiration pneumonia and acute exacerbation of COPD. On 01/30/2024, the patient is being seen for shortness of breath. She is known to have COPD and diabetes mellitus and she is a chronic smoker. She has a chronic indwelling Horn catheter patient with a recent hospitalization at [facility]. She presented to us with worsening shortness of breath. The white cell count was 11 with a hemoglobin 13.2 and a platelet count of 542, normal electrolytes, normal renal function, UA was abnormal with many WBCs and budding yeast and a white cell count of 182. The patient is currently afebrile. The patient is hemodynamically stable and she is hypoxic currently 90s of oxygen by nasal cannula. Chest x-ray was done emergency department that showed moderate-sized right-sided pleural effusion. CT of the chest was also done which showed very limited effusion in the lung bases. The patient had sig nificant atelectatic changes in the lower lobes bilaterally. No airspace disease or consolidation. No evidence of any pulmonary embolism. No evidence of any filling defects. Accordingly, the patient was hospitalized. She was started on Diflucan 20 mg p.o. daily. She was started on IV Zosyn and a pulmonary consultation was requested. Upon further questioning, it seems that the patient's health has been deteriorating over the past 1 year. The patient has lost considerable mount of weight. She has had issues with oropharyngeal thrush and she has not been able to take oral intake adequately and she has been meeting her caloric requirements. Such, the patient has not more than 50 pounds of weight. She had developed compression fractures. She has been feeling weak. Over the past 2 to 3 weeks, she has become essentially nonambulatory. As far as the Horn catheter, she claims that she has had urinary retention and the physicians at [facility] opted to keep the Horn catheter in place. The patient has been Bound/bedbound. She has developed a sacral decubitus ulcer stage II. She is weak, cachectic, malnourished, and remains debilitated at this point. The boyfriend was unable to take care of her at home. The visiting nurse made a recommendation for her to come into the hospital. She is a chronic smoker. She has COPD. Maintained on Symbicort. No home O2. The patient is seen today January 31, 2024 in follow-up on the regular medical floor. She is currently resting in bed. Awake and alert in no acute distress. She appears quite weak and debilitated. She states she had been falling at home and has fractures in her spine. She had been at [facility] recently. Currently feeling a bit better today compared to yesterday. She has a loose nonproductive cough. She is maintaining O2 saturations in the 90s on 2 L/min per nasal cannula. She remains on Zosyn. Glucose 201. Troponin negative x 2. She is continued on DuoNeb inhalations, Pulmicort and Perforomist inhalations, IV Solu-Medrol. NicoDerm patch in place. The patient is seen today February 01, 2024 and follow-up on the regular medical floor. She is currently sitting about a chair. She is awake and alert. She is quite uncomfortable. She states she hurts everywhere. Mainly from her previous falls. She is being maintained on Percocet alternating with Dilaudid. She is ma intaining O2 saturations in the 90s on 2 L nasal cannula. Urine culture reveals Sarah. White count 29.1. Hemoglobin 13.9. Platelets 645. Sodium 142. Potassium 4.0. Bicarb 27. BUN 22. Creatinine 0.3. Glucose 78. She remains on DuoNeb inhalations, Pulmicort and Perforomist inhalations, Solu-Medrol and Singulair. NicoDerm patch is in place. She is on antibiotics in the form of Zosyn. She is on Diflucan. The patient is seen today February 02, 2024 in follow-up on the regular medical floor. She is awake and alert in no acute distress. Currently sitting up in a chair at the bedside. Denies any worsening shortness of breath, cough or congestion. She is maintaining O2 saturations in the 90s on 2 L/min per nasal cannula. She is feeling a bit better today compared to yesterday. Glucose 242. She remains on DuoNeb ventilations, Pulmicort and performing scintillations, Singulair, IV Solu-Medrol. NicoDerm patch in place. Continued on Zosyn. Currently on voriconazole for the Sarah in the urine. Being followed by infectious disease. The patient is seen today February 03, 2024 in follow-up on the regular medical floor. She is currently awake and alert in no acute distress. She is maintaining good O2 saturation in the 90s on 3 L/min per nasal cannula. She is afebrile. Hemody namically stable. Her main complaints today are lower leg pain and buttocks pain from sacral decubitus ulcer and her previous falls. Bone scan revealed multiple areas of abnormal uptake could be on the basis of prior trauma. Abnormal uptake involving the sacrum and pubic rami possibly posttraumatic. Areas of linear uptake involving the lower thoracic and lumbar spine possibly related to compression fractures. White count 21.6. Hemoglobin 12.5. Platelets 474. Sodium 139. Potassium 3.7. Bicarb 26. BUN 26. Creatinine 0.4. Glucose 165. She remains on DuoNeb ventilations, Pulmicort and Perforomist inhalations, IV Solu-Medrol and Singulair. NicoDerm patch in place. Antibiotics in the form of Zosyn. Remains on voriconazole. The patient is seen today February 04, 2024 in follow-up on the regular medical floor. She is currently sitting up in bed. Awake and alert in no acute distres s. She is feeling quite a bit better today. Less pain and discomfort. She denies any worsening shortness of breath, cough or congestion. She is maintaining O2 saturations in the 90s on 2 L/min per nasal cannula. She has been afebrile. Hemodynamically stable. Glucose 252. She remains on [facility] hodilators, Singulair and Solu-Medrol. NicoDerm patch in place. Antibiotics in the form of Zosyn. Remains on voriconazole. Patient was reevaluated today on 02/05/2024, patient is doing great, asymp tomatic, she has no active pulmonary symptoms, patient is being considered for possible discharge to rehab today. And I think that is very appropriate. Patient was reevaluated today on 02/06/2024, patient is doing great, she was supposed to be discharged to [facility] yesterday, however there was no bed available, and her discharge was delayed. Patient has no active pulmonary symptoms, I will still clear the patient for discharge once a bed is available even if available today for Objective - Vital Signs Vital signs: Vital Signs Temp 98.5 F 02/06/24 06:55 Pulse 95 02/06/24 11:25 Resp 16 02/06/24 08:00 BP 125/66 02/06/24 06:55 Pulse Ox 93 L 02/06/24 06:55 FiO2 Intake & Output 02/05/24 02/06/24 02/06/24 18:59 06:59 18:59 Output Total 1200 325 Balance -1200 -325 Output: Urine 1200 325 Other: Voiding Method Indwelling Catheter Indwelling Catheter Indwelling Catheter - Exam GENERAL EXAM: Alert, frail, 63-year-old female, sitting up in bed, on room air HEAD: Normocephalic. EYES: Normal reaction of pupils, equal size. NOSE: Clear with pink turbinates. THROAT: No erythema or exudates. NECK: No masses, no JVD. CHEST: No chest wall deformity. LUNGS: Equal air entry with bilateral end expiratory wheeze, diminished. CVS: S1 and S2 normal with no audible murmur, regular rhythm. ABDOMEN: No hepatosplenomegaly, normal bowel sounds, no guarding or rigidity. SKIN: No rashes. Stage II sacral decubitus ulcer CENTRAL NERVOUS SYSTEM: No focal deficits, tone is normal in all 4 extremities. EXTREMITIES: There is no peripheral edema. No clubbing, no cyanosis. Peripheral pulses are intact. - Labs CBC & Chem 7: 02/06/24 06:08 02/06/24 06:08 Labs: Abnormal Lab Results - Last 24 Hours (Table) 02/05/24 02/05/24 02/06/24 Range/Units 16:41 20:46 05:49 WBC (4.50-10.00) X 10*3/uL RBC (4.10-5.20) X 10*6/uL MCV (80.0-97.0) FL MCH (27.0-32.0) pg Immature Gran # (0.00-0.04) X 10*3/uL Neutrophils # (1.80-7.70) X 10*3/uL Lymphocytes # (0.90-5.00) X 10*3/uL Eosinophils # (0.04-0.35) X 10*3/uL Creatinine (0.6-1.5) mg/dL BUN/Creatinine Ratio (12.00-20.00) Ratio Glucose (70-110) mg/dL POC Glucose (mg/dL) 303 H 243 H 161 H (70-110) mg/dL Total Bilirubin (0.3-1.2) mg/dL Alkaline Phosphatase (41-126) U/L Total Protein (6.2-8.2) g/dL Albumin (3.8-4.9) g/dL 02/06/24 02/06/24 02/06/24 Range/Units 06:08 06:08 11:43 WBC 24.47 H (4.50-10.00) X 10*3/uL RBC 4.08 L (4.10-5.20) X 10*6/uL MCV 97.1 H (80.0-97.0) FL MCH 32.6 H (27.0-32.0) pg Immature Gran # 0.20 H (0.00-0.04) X 10*3/uL Neutrophils # 23.56 H (1.80-7.70) X 10*3/uL Lymphocytes # 0.29 L (0.90-5.00) X 10*3/uL Eosinophils # 0 L (0.04-0.35) X 10*3/uL Creatinine 0.4 L (0.6-1.5) mg/dL BUN/Creatinine Ratio 58.50 H (12.00-20.00) Ratio Glucose 121 H (70-110) mg/dL POC Glucose (mg/dL) 219 H (70-110) mg/dL Total Bilirubin 0.2 L (0.3-1.2) mg/dL Alkaline Phosphatase 259 H (41-126) U/L Total Protein 5.1 L (6.2-8.2) g/dL Albumin 3.2 L (3.8-4.9) g/dL Assessment and Plan Assessment: Impression Acute hypoxic respiratory failure suspect secondary to aspiration pneumonia, significantly improved Acute exacerbation of COPD, resolved Chronic and ongoing tobacco dependence Sarah in the urine currently on voriconazole Diabetes mellitus type 2 Hypertension Hyperlipidemia Depression Chronic urinary retention maintained on a chronic indwelling Horn catheter Weight loss, unexplained Compression fracture of the spine Stage II sacral decub ulcer Significant debility and impaired performance and functional status and the patient is currently unable to ambulate and she has been essentially chair/bedbound for the past month or so Frequent falls, hospitalized at [facility] Plan: Agree with discharge planning Cleared for discharge again follow-up on outpatient basis Pulmonary will sign off Time with Patient: Less than 30
[2024-02-06 16:50] LABS: Glucose,Whole Blood 202 mg/dL (70-110)
[2024-02-06 20:56] LABS: Glucose,Whole Blood 187 mg/dL (70-110)
[2024-02-07 05:59] LABS: Glucose,Whole Blood 148 mg/dL (70-110)
[2024-02-07 11:41] LABS: Glucose,Whole Blood 188 mg/dL (70-110)
--- NOTE | 2024-02-07 13:45 | P.PN ---
Subjective Progress Note Date: 02/07/24 On 01/30/2024, the patient is being seen for shortness of breath. She is known to have COPD and diabetes mellitus and she is a chronic smoker. She has a chronic indwelling Horn catheter patient with a recent hospitalization at [facility]. She presented to us with worsening shortness of breath. The white cell count was 11 with a hemoglobin 13.2 and a platelet count of 542, normal electrolytes, normal renal function, UA was abnormal with many WBCs and budding yeast and a white cell count of 182. The patient is currently afebrile. The patient is hemodynamically stable and she is hypoxic currently 90s of oxygen by nasal cannula. Chest x-ray was done emergency department that showed moderate-sized right-sided pleural effusion. CT of the chest was also done which showed very limited effusion in the lung bases. The patient had significant atelectatic changes in the lower lobes bilaterally. No airspace disease or consolidation. No evidence of any pulmonary embolism. No evidence of any filling defects. Accordingly, the patient was hospitalized. She was started on Diflucan 20 mg p.o. daily. She was started on IV Zosyn and a pulmonary consultation was requested. Upon further questioning, it seems that the patient's health has been deteriorating over the past 1 year. The patient has lost considerable mount of weight. She has had issues with oropharyngeal thrush and she has not been able to take oral intake adequately and she has been meeting her caloric requirements. Such, the patient has not more than 50 pounds of weight. She had developed compression fractures. She has been feeling weak. Over the past 2 to 3 weeks, she has become essentially nonambulatory. As far as the Horn catheter, she claims that she has had urinary retention and the physicians at [facility] opted to keep the Horn catheter in place. The patient has been Bound/bedbound. She has developed a sacral decubitus ulcer stage II. She is weak, cachectic, malnourished, and remains debilitated at this point. The boyfriend was unable to take care of her at home. The visiting nurse made a recommendation for her to come into the hospital. She is a chronic smoker. She has COPD. Maintained on Symbicort. No home O2. The patient is seen today January 31, 2024 in follow-up on the regular medical floor. She is currently resting in bed. Awake and alert in no acute distress. She appears quite weak and debilitated. She states she had been falling at home and has fractures in her spine. She had been at [facility] recently. Currently feeling a bit better today compared to yesterday. She has a loose nonproductive cough. She is maintaining O2 saturations in the 90s on 2 L/min per nasal cannula. She remains on Zosyn. Glucose 201. Troponin negative x 2. She is continued on DuoNeb inhalations, Pulmicort and Perforomist inhalations, IV Solu-Medrol. NicoDerm patch in place. The patient is seen today February 01, 2024 and follow-up on the regular medical floor. She is currently sitting about a chair. She is awake and alert. She is quite uncomfortable. She states she hurts everywhere. Mainly from her previous falls. She is being maintained on Percocet alternating with Dilaudid. She is maintaining O2 saturations in the 90s on 2 L nasal cannula. Urine culture reveals Sarah. White count 29.1. Hemoglobin 13.9. Platelets 645. Sodium 142. Potassium 4.0. Bicarb 27. BUN 22. Creatinine 0.3. Glucose 78. She remains on DuoNeb inhalations, Pulmicort and Perforomist inhalations, Solu- Medrol and Singulair. NicoDerm patch is in place. She is on antibiotics in the form of Zosyn. She is on Diflucan. The patient is seen today February 02, 2024 in follow-up on the regular medical floor. She is awake and alert in no acute distress. Currently sitting up in a chair at the bedside. Denies any worsening shortness of breath, cough or congestion. She is maintaining O2 saturations in the 90s on 2 L/min per nasal cannula. She is feeling a bit better today compared to yesterday. Glucose 242. She remains on DuoNeb ventilations, Pulmicort and performing scintillations, Singulair, IV Solu-Medrol. NicoDerm patch in place. Continued on Zosyn. Currently on voriconazole for the Sarah in the urine. Being followed by infectious disease. The patient is seen today February 03, 2024 in follow-up on the regular medical floor. She is currently awake and alert in no acute distress. She is maintaining good O2 saturation in the 90s on 3 L/min per nasal cannula. She is afebrile. Hemodynamically stable. Her main complaints today are lower leg pain and buttocks pain from sacral decubitus ulcer and her previous falls. Bone scan rev ealed multiple areas of abnormal uptake could be on the basis of prior trauma. Abnormal uptake involving the sacrum and pubic rami possibly posttraumatic. Areas of linear uptake involving the lower thoracic and lumbar spine possibly related to compression fractures. White count 21.6. Hemoglobin 12.5. Platelets 474. Sodium 139. Potassium 3.7. Bicarb 26. BUN 26. Creatinine 0.4. Glucose 165. She remains on DuoNeb ventilations, Pulmicort and Perforomist inhalations, IV Solu-Medrol and Singulair. NicoDerm patch in place. Antibiotics in the form of Zosyn. Remains on voriconazole. The patient is seen today February 04, 2024 in follow-up on the regular medical floor. She is currently sitting up in bed. Awake and alert in no acute distress. She is feeling quite a bit better today. Less pain and discomfort. She denies any worsening shortness of breath, cough or congestion. She is maintaining O2 saturations in the 90s on 2 L/min per nasal cannula. She has been afebrile. Hemodynamically stable. Glucose 252. She remains on bronchodilators, Singulair and Solu-Medrol. NicoDerm patch in place. Antibiotics in the form of Zosyn. Remains on voriconazole. Patient was reevaluated today on 02/05/2024, patient is doing great, asymptomatic, she has no active pulmonary symptoms, patient is being considered for possible discharge to rehab today. And I think that is very appropriate. Patient was reevaluated today on 02/06/2024, patient is doing great, she was supposed to be [facility] yesterday, however there was no bed available, and her discharge was delayed. Patient has no active pulmonary symptoms, I will still clear the patient for discharge once a bed is available even if available today for The patient was seen today February 07, 2024 in follow-up on the regular medical floor. She is currently sitting up in bed. Awake and alert in no acute distress. Maintaining good O2 saturations in the 90s on 3 L/min per nasal cannula. Normal saline at KVO. Glucose 188. She is continued on DuoNeb ventilations, Pulmicort and Perforomist inhalations, Singulair, prednisone taper. Remains on Zosyn and voriconazole. Objective - Vital Signs Vital signs: Vital Signs Temp 98.2 F 02/07/24 07:10 Pulse 92 02/07/24 11:22 Resp 17 02/07/24 07:10 BP 145/76 02/07/24 07:10 Pulse Ox 95 02/07/24 10:30 FiO2 Intake & Output 02/06/24 02/07/24 02/07/24 18:59 06:59 18:59 Output Total 1150 Balance -1150 Output: Urine 1150 Other: Voiding Method Indwelling Catheter Indwelling Catheter Indwelling Catheter - Exam GENERAL EXAM: Alert, 63-year-old female, sitting up in bed, on 3 L nasal cannula, in no acute distress. HEAD: Normocephalic. EYES: Normal reaction of pupils, equal size. NOSE: Clear with pink turbinates. THROAT: No erythema or exudates. NECK: No masses, no JVD. CHEST: No chest wall deformity. LUNGS: Equal air entry with bilateral end expiratory wheeze, diminished. CVS: S1 and S2 normal with no audible murmur, regular rhythm. ABDOMEN: No hepatosplenomegaly, normal bowel sounds, no guarding or rigidity. SPINE: No scoliosis or deformity SKIN: No rashes. Stage II sacral decubitus ulcer CENTRAL NERVOUS SYSTEM: No focal deficits, tone is normal in all 4 extremities. EXTREMITIES: There is no peripheral edema. No clubbing, no cyanosis. Peripheral pulses are intact. - Labs CBC & Chem 7: 02/06/24 06:08 02/06/24 06:08 Labs: Abnormal Lab Results - Last 24 Hours (Table) 02/06/24 02/06/24 02/07/24 Range/Units 16:49 20:54 05:53 POC Glucose (mg/dL) 202 H 187 H 148 H (70-110) mg/dL 02/07/24 Range/Units 11:39 POC Glucose (mg/dL) 188 H (70-110) mg/dL Assessment and Plan Assessment: Acute hypoxic respiratory failure suspect secondary to aspiration pneumonia, currently on 2 L of oxygen by nasal cannula. CTA of the chest shows no evidence of any pulmonary embolism. Extensive atelectatic changes in lung base bilaterally right more than left with small pleural effusions. Consider aspiration. Currently on Zosyn Acute exacerbation of COPD Chronic and ongoing tobacco dependence Sarah in the urine currently on voriconazole Diabetes mellitus type 2 Hypertension Hyperlipidemia Depression Chronic urinary retention maintained on a chronic indwelling Horn catheter Weight loss, unexplained Compression fracture of the spine Stage II sacral decub ulcer Significant debility and impaired performance and functional status and the p atient is currently unable to ambulate and she has been essentially chair/bedbound for the past month or so Frequent falls, hospitalized at [facility] Plan: The patient was seen and evaluated Medications reviewed Continue the current treatment plan Antibiotics per ID service [facility] I have personally seen and examined the patient, performed the documentation and the assessment and plan as written. Number of minutes spent on the visit: 10.
[2024-02-07 17:00] LABS: Glucose,Whole Blood 201 mg/dL (70-110)
[2024-02-07 20:23] LABS: Glucose,Whole Blood 166 mg/dL (70-110)
--- NOTE | 2024-02-08 04:45 | PN ---
PROGRESS NOTE DATE OF SERVICE: 02/07/2024 SUBJECTIVE: O2 saturation 93 on 3 L. Temperature 98, pulse 80s to 90s, respiratory rate 18, blood pressure 120/70. Waiting for discharge to rehab center. Sugars are mid 100s to 200s. Her white count is up to 24.7. We are going to have to get Dr. Pathak to clear her before she was discharged because of her white count. Prognosis is guarded. Continue current treatment. Lungs, transmitted upper sounds. Vital signs stable, afebrile. Hematology, negative for Homans. Possibly do a stool for Hemoccult. She has diarrhea. PROGNOSIS: Guarded. Continue current treatments for COPD and aspiration pneumonia. Prognosis guarded. Wait for Dr. Pathak for workup for severe leukocytosis in the last 2 days. MMODL / IJN: [id number] /
[2024-02-08 06:06] LABS: Glucose,Whole Blood 75 mg/dL (70-110)
[2024-02-08 10:40] LABS: Basophils # (A) 0.08 X 10*3/uL (0.00-0.10); Basophils % (A) 0.3 %; Eosinophils # (A) 0.05 X 10*3/uL (0.04-0.35); Eosinophils % (A) 0.2 %; HCT 41.7 % (37.2-46.3); HGB 13.8 g/dL (12.0-15.0); Lymphocytes # (A) 1.84 X 10*3/uL (0.90-5.00); Lymphocytes % (A) 7.3 %; MCH 31.9 pg (27.0-32.0); MCHC 33.1 g/dL (32.0-37.0); MCV 96.5 FL (80.0-97.0); Mean Platelet Volume 9.9 FL (9.5-12.2); Monocytes # (A) 0.96 X 10*3/uL (0.20-1.00); Monocytes % (A) 3.8 %; NRBC Per 100 WBC 0 X 10*3/uL (0.00-0.01); Neutrophils # (A) 22.04 X 10*3/uL (1.80-7.70); Neutrophils % (A) 86.8 %; Platelet Count 394 X 10*3/uL (140-440); RBC 4.32 X 10*6/uL (4.10-5.20); RDW 13.8 % (11.5-14.5); WBC 25.37 X 10*3/uL (4.50-10.00)
[2024-02-08 10:50] LABS: ALT 22 U/L (8-44); AST 21 U/L (13-35); Albumin 3.1 g/dL (3.8-4.9); Albumin/Globulin Ratio 1.72 Ratio (1.60-3.17); Alkaline Phosphatase 248 U/L (41-126); Blood Urea Nitrogen 23.4 mg/dL (9.0-27.0); Calcium 8.9 mg/dL (8.7-10.3); Carbon Dioxide 25.7 mmol/L (21.6-31.8); Chloride 105 mmol/L (96-109); Globulin 1.8 g/dL (1.6-3.3); Glucose 52 mg/dL (70-110); Potassium 4.6 mmol/L (3.5-5.5); Sodium 139 mmol/L (135-145); Total Bilirubin 0.2 mg/dL (0.3-1.2); Total Protein 4.9 g/dL (6.2-8.2)
[2024-02-08 11:47] LABS: Glucose,Whole Blood 98 mg/dL (70-110)
--- NOTE | 2024-02-08 13:46 | P.PN ---
Subjective Progress Note Date: 02/08/24 On 01/30/2024, the patient is being seen for shortness of breath. She is known to have COPD and diabetes mellitus and she is a chronic smoker. She has a chronic indwelling Horn catheter patient with a recent hospitalization at [facility]. She presented to us with worsening shortness of breath. The white cell count was 11 with a hemoglobin 13.2 and a platelet count of 542, normal electrolytes, normal renal function, UA was abnormal with many WBCs and budding yeast and a white cell count of 182. The patient is currently afebrile. The patient is hemodynamically stable and she is hypoxic currently 90s of oxygen by nasal cannula. Chest x-ray was done emergency department that showed moderate-sized right-sided pleural effusion. CT of the chest was also done which showed very limited effusion in the lung bases. The patient had significant atelectatic changes in the lower lobes bilaterally. No airspace disease or consolidation. No evidence of any pulmonary embolism. No evidence of any filling defects. Accordingly, the patient was hospitalized. She was started on Diflucan 20 mg p.o. daily. She was started on IV Zosyn and a pulmonary consultation was requested. Upon further questioning, it seems that the patient's health has been deteriorating over the past 1 year. The patient has lost considerable mount of weight. She has had issues with oropharyngeal thrush and she has not been able to take oral intake adequately and she has been meeting her caloric requirements. Such, the patient has not more than 50 pounds of weight. She had developed compression fractures. She has been feeling weak. Over the past 2 to 3 weeks, she has become essentially nonambulatory. As far as the Horn catheter, she claims that she has had urinary retention and the physicians at [facility] opted to keep the Horn catheter in place. The patient has been Bound/bedbound. She has developed a sacral decubitus ulcer stage II. She is weak, cachectic, malnourished, and remains debilitated at this point. The boyfriend was unable to take care of her at home. The visiting nurse made a recommendation for her to come into the hospital. She is a chronic smoker. She has COPD. Maintained on Symbicort. No home O2. The patient is seen today January 31, 2024 in follow-up on the regular medical floor. She is currently resting in bed. Awake and alert in no acute distress. She appears quite weak and debilitated. She states she had been falling at home and has fractures in her spine. She had been at [facility] recently. Currently feeling a bit better today compared to yesterday. She has a loose nonproductive cough. She is maintaining O2 saturations in the 90s on 2 L/min per nasal cannula. She remains on Zosyn. Glucose 201. Troponin negative x 2. She is continued on DuoNeb inhalations, Pulmicort and Perforomist inhalations, IV Solu-Medrol. NicoDerm patch in place. The patient is seen today February 01, 2024 and follow-up on the regular medical floor. She is currently sitting about a chair. She is awake and alert. She is quite uncomfortable. She states she hurts everywhere. Mainly from her previous falls. She is being maintained on Percocet alternating with Dilaudid. She is maintaining O2 saturations in the 90s on 2 L nasal cannula. Urine culture reveals Sarah. White count 29.1. Hemoglobin 13.9. Platelets 645. Sodium 142. Potassium 4.0. Bicarb 27. BUN 22. Creatinine 0.3. Glucose 78. She remains on DuoNeb inhalations, Pulmicort and Perforomist inhalations, Solu- Medrol and Singulair. NicoDerm patch is in place. She is on antibiotics in the form of Zosyn. She is on Diflucan. The patient is seen today February 02, 2024 in follow-up on the regular medical floor. She is awake and alert in no acute distress. Currently sitting up in a chair at the bedside. Denies any worsening shortness of breath, cough or congestion. She is maintaining O2 saturations in the 90s on 2 L/min per nasal cannula. She is feeling a bit better today compared to yesterday. Glucose 242. She remains on DuoNeb ventilations, Pulmicort and performing scintillations, Singulair, IV Solu-Medrol. NicoDerm patch in place. Continued on Zosyn. Currently on voriconazole for the Sarah in the urine. Being followed by infectious disease. The patient is seen today February 03, 2024 in follow-up on the regular medical floor. She is currently awake and alert in no acute distress. She is maintaining good O2 saturation in the 90s on 3 L/min per nasal cannula. She is afebrile. Hemodynamically stable. Her main complaints today are lower leg pain and buttocks pain from sacral decubitus ulcer and her previous falls. Bone scan rev ealed multiple areas of abnormal uptake could be on the basis of prior trauma. Abnormal uptake involving the sacrum and pubic rami possibly posttraumatic. Areas of linear uptake involving the lower thoracic and lumbar spine possibly related to compression fractures. White count 21.6. Hemoglobin 12.5. Platelets 474. Sodium 139. Potassium 3.7. Bicarb 26. BUN 26. Creatinine 0.4. Glucose 165. She remains on DuoNeb ventilations, Pulmicort and Perforomist inhalations, IV Solu-Medrol and Singulair. NicoDerm patch in place. Antibiotics in the form of Zosyn. Remains on voriconazole. The patient is seen today February 04, 2024 in follow-up on the regular medical floor. She is currently sitting up in bed. Awake and alert in no acute distress. She is feeling quite a bit better today. Less pain and discomfort. She denies any worsening shortness of breath, cough or congestion. She is maintaining O2 saturations in the 90s on 2 L/min per nasal cannula. She has been afebrile. Hemodynamically stable. Glucose 252. She remains on bronchodilators, Singulair and Solu-Medrol. NicoDerm patch in place. Antibiotics in the form of Zosyn. Remains on voriconazole. Patient was reevaluated today on 02/05/2024, patient is doing great, asymptomatic, she has no active pulmonary symptoms, patient is being considered for possible discharge to rehab today. And I think that is very appropriate. Patient was reevaluated today on 02/06/2024, patient is doing great, [facility], however there was no bed available, and her discharge was delayed. Patient has no active pulmonary symptoms, I will still clear the patient for discharge once a bed is available even if available today for The patient was seen today February 07, 2024 in follow-up on the regular medical floor. She is currently sitting up in bed. Awake and alert in no acute distress. Maintaining good O2 saturations in the 90s on 3 L/min per nasal cannula. Normal saline at KVO. Glucose 188. She is continued on DuoNeb ventilations, Pulmicort and Perforomist inhalations, Singulair, prednisone taper. Remains on Zosyn and voriconazole. The patient is seen today February 08, 2024 in follow-up on the regular medical floor. She is currently sitting up in bed. Awake and alert in no acute distress. She is maintaining O2 saturations in the 90s on 3 L/min per nasal cannula. She has normal saline at KVO. Denies any chest pain. No worsening shortness of breath, cough or congestion. She is continued on Symbicort, Singulair and DuoNeb inhalations. Remains on Zosyn. NicoDerm patch in place. White count 25.3. Hemoglobin 13.8. Platelets 394. Sodium 139. Potassium 4.6. Bicarb 26. BUN 23. Creatinine 0.4. Glucose 98. Objective - Vital Signs Vital signs: Vital Signs Temp 98.0 F 02/08/24 07:35 Pulse 84 02/08/24 08:12 Resp 18 02/08/24 07:35 BP 139/78 02/08/24 07:35 Pulse Ox 92 L 02/08/24 07:46 FiO2 Intake & Output 02/07/24 02/08/24 02/08/24 18:59 06:59 18:59 Output Total 600 425 Balance -600 -425 Weight 47.627 kg Output: Urine 600 425 Other: Voiding Method Indwelling Catheter Indwelling Catheter Indwelling Catheter # Voids 3 - Exam GENERAL EXAM: Alert, pleasant 63-year-old female, resting in bed, on 3 L nasal cannula, in no acute distress. HEAD: Normocephalic. EYES: Normal reaction of pupils, equal size. NOSE: Clear with pink turbinates. THROAT: No erythema or exudates. NECK: No masses, no JVD. CHEST: No chest wall deformity. LUNGS: Equal air entry with bilateral end expiratory wheeze, diminished. CVS: S1 and S2 normal with no audible murmur, regular rhythm. ABDOMEN: No hepatosplenomegaly, normal bowel sounds, no guarding or rigidity. SPINE: No scoliosis or deformity SKIN: No rashes. Stage II sacral decubitus ulcer CENTRAL NERVOUS SYSTEM: No focal deficits, tone is normal in all 4 extremities. EXTREMITIES: There is no peripheral edema. No clubbing, no cyanosis. Peripheral pulses are intact. - Labs CBC & Chem 7: 02/08/24 06:00 02/08/24 06:00 Labs: Abnormal Lab Results - Last 24 Hours (Table) 02/07/24 02/07/24 02/08/24 Range/Units 16:59 20:22 06:00 WBC 25.37 H (4.50-10.00) X 10*3/uL Immature Gran # 0.40 H (0.00-0.04) X 10*3/uL Neutrophils # 22.04 H (1.80-7.70) X 10*3/uL Creatinine (0.6-1.5) mg/dL BUN/Creatinine Ratio (12.00-20.00) Ratio Glucose (70-110) mg/dL POC Glucose (mg/dL) 201 H 166 H (70-110) mg/dL Total Bilirubin (0.3-1.2) mg/dL Alkaline Phosphatase (41-126) U/L Total Protein (6.2-8.2) g/dL Albumin (3.8-4.9) g/dL 02/08/24 Range/Units 06:00 WBC (4.50-10.00) X 10*3/uL Immature Gran # (0.00-0.04) X 10*3/uL Neutrophils # (1.80-7.70) X 10*3/uL Creatinine 0.4 L (0.6-1.5) mg/dL BUN/Creatinine Ratio 58.50 H (12.00-20.00) Ratio Glucose 52 L (70-110) mg/dL POC Glucose (mg/dL) (70-110) mg/dL Total Bilirubin 0.2 L (0.3-1.2) mg/dL Alkaline Phosphatase 248 H (41-126) U/L Total Protein 4.9 L (6.2-8.2) g/dL Albumin 3.1 L (3.8-4.9) g/dL Assessment and Plan Assessment: Acute hypoxic respiratory failure suspect secondary to aspiration pneumonia, currently on 2 L of oxygen by nasal cannula. CTA of the chest shows no evidence of any pulmonary embolism. Extensive atelectatic changes in lung base bilaterally right more than left with small pleural effusions. Consider aspiration. Currently on Zosyn Acute exacerbation of COPD Chronic and ongoing tobacco dependence Sarah in the urine currently on voriconazole Diabetes mellitus type 2 Hypertension Hyperlipidemia Depression Chronic urinary retention maintained on a chronic indwelling Horn catheter. Culture positive for Sarah. Currently on voriconazole Weight loss, unexplained Compression fracture of the spine Stage II sacral decub ulcer Significant debility and impaired performance and functional status and the patient is currently unable to ambulate and she has been essentially chair/bedbound for the past month or so Frequent falls, hospitalized at [facility] Plan: The patient was seen and evaluated Medications and labs reviewed Antibiotics per ID service Plan is for [facility] at discharge I have personally seen and examined the patient, performed the documentation and the assessment and plan as written. Number of minutes spent on the visit: 10.
--- NOTE | 2024-02-08 14:20 | P.PN ---
Subjective Progress Note Date: 02/06/24 Principal diagnosis: Reason for follow-up is UTI question of pneumonia and a sacral pressure ulcer Patient is a 63-year-old female with a past medical history significan t for diabetes mellitus hypertension hyperlipidemia COPD current everyday smoker, recent multiple admission to the [facility] for UTI followed with the compression fracture of the spine and hypoglycemia has been brought in to [facility] for evaluation of increasing shortness of breath did have abnormal CT angiogram of the chest concerning for effusion atelectasis positive UA concerning for UTI and the patient also have a sacral pressure ulcer. On today's evaluation that is 02/06/2024, Patient is afebrile patient is currently on 3 L nasal cannula oxygen and denies having any shortness of breath, the patient denies any chest pain or any worsening cough, the patient denies any nausea vomiting did not have any abdominal pain and no diarrhea Patient did have a white count of 24.47, creatinine 0.4 Objective - Vital Signs Vital signs: Vital Signs Temp 98.5 F 02/06/24 06:55 Pulse 95 02/06/24 11:25 Resp 16 02/06/24 08:00 BP 125/66 02/06/24 06:55 Pulse Ox 93 L 02/06/24 06:55 FiO2 Intake & Output 02/05/24 02/06/24 02/06/24 18:59 06:59 18:59 Output Total 1200 325 Balance -1200 -325 Output: Urine 1200 325 Other: Voiding Method Indwelling Catheter Indwelling Catheter Indwelling Catheter - Exam GENERAL DESCRIPTION: Middle-aged female lying in bed in no distress RESPIRATORY SYSTEM: Unlabored breathing , decreased breath sounds at bases HEART: S1 S2 regular rate and rhythm , ABDOMEN: Soft , no tenderness EXTREMITIES: No edema feet - Labs CBC & Chem 7: 02/08/24 06:00 02/08/24 06:00 Labs: Abnormal Lab Results - Last 24 Hours (Table) 02/05/24 02/05/24 02/05/24 Range/Units 11:38 16:41 20:46 WBC (4.50-10.00) X 10*3/uL RBC (4.10-5.20) X 10*6/uL MCV (80.0-97.0) FL MCH (27.0-32.0) pg Immature Gran # (0.00-0.04) X 10*3/uL Neutrophils # (1.80-7.70) X 10*3/uL Lymphocytes # (0.90-5.00) X 10*3/uL Eosinophils # (0.04-0.35) X 10*3/uL Creatinine (0.6-1.5) mg/dL BUN/Creatinine Ratio (12.00-20.00) Ratio Glucose (70-110) mg/dL POC Glucose (mg/dL) 268 H 303 H 243 H (70-110) mg/dL Total Bilirubin (0.3-1.2) mg/dL Alkaline Phosphatase (41-126) U/L Total Protein (6.2-8.2) g/dL Albumin (3.8-4.9) g/dL 02/06/24 02/06/24 02/06/24 Range/Units 05:49 06:08 06:08 WBC 24.47 H (4.50-10.00) X 10*3/uL RBC 4.08 L (4.10-5.20) X 10*6/uL MCV 97.1 H (80.0-97.0) FL MCH 32.6 H (27.0-32.0) pg Immature Gran # 0.20 H (0.00-0.04) X 10*3/uL Neutrophils # 23.56 H (1.80-7.70) X 10*3/uL Lymphocytes # 0.29 L (0.90-5.00) X 10*3/uL Eosinophils # 0 L (0.04-0.35) X 10*3/uL Creatinine 0.4 L (0.6-1.5) mg/dL BUN/Creatinine Ratio 58.50 H (12.00-20.00) Ratio Glucose 121 H (70-110) mg/dL POC Glucose (mg/dL) 161 H (70-110) mg/dL Total Bilirubin 0.2 L (0.3-1.2) mg/dL Alkaline Phosphatase 259 H (41-126) U/L Total Protein 5.1 L (6.2-8.2) g/dL Albumin 3.2 L (3.8-4.9) g/dL Assessment and Plan (1) Stage III pressure ulcer of sacral region Current Visit: Yes Status: Acute Code(s): L89.153 - PRESSURE ULCER OF SACRAL REGION, STAGE 3 SNOMED Code(s): 42122191839847 (2) Urinary tract infection Current Visit: Yes Status: Acute Code(s): N39.0 - URINARY TRACT INFECTION, SITE NOT SPECIFIED SNOMED Code(s): 17677884 (3) Aspiration pneumonia Current Visit: Yes Status: Acute Code(s): J69.0 - PNEUMONITIS DUE TO INHALATION OF FOOD AND VOMIT SNOMED Code(s): 002138428 Plan: 1patient presented to hospital with increasing shortness of breath which is likely multifactorial with a possible component of pneumonia likely gram- negative as the patient has been in the hospital versus aspiration etiology 2-patient also has significantly positive despite changing Horn catheter likely component of cath versus UTI likely from enteric gram-negative 3-patient did have a stage III sacral pressure ulcer with slough tissue but no cellulitis local wound care with Medihoney followed by moist dressing and frequent change of position 4-patient urine cultures growing Sarah not albicans patient is currently covered with voriconazole 5-with concern for possible aspiration pneumonia patient is covered with Zosyn will transition to oral antibiotics when stable for discharge from admitting team 6leukocytosis more likely steroid related, the patient white count was slightly up today to 24,000 and will monitor closely Dictation was produced using [email or web address] dictation software. please excuse any grammatical, word or spelling errors. Time with Patient: Less than 30
--- NOTE | 2024-02-08 14:21 | P.PN ---
Subjective Progress Note Date: 02/07/24 Principal diagnosis: Reason for follow-up is UTI question of pneumonia and a sacral pressure ulcer Patient is a 63-year-old female with a past medical history significan t for diabetes mellitus hypertension hyperlipidemia COPD current everyday smoker, recent multiple admission to the [facility] for UTI followed with the compression fracture of the spine and hypoglycemia has been brought in to [facility] for evaluation of increasing shortness of breath did have abnormal CT angiogram of the chest concerning for effusion atelectasis positive UA concerning for UTI and the patient also have a sacral pressure ulcer. On today's evaluation that is 02/07/2024, patient has been afebrile, patient is breathing comfortably and is currently on 3 L nasal cannula oxygen, patient denies having any significant cough no chest pain shortness of breath, patient denies nausea vomiting or diarrhea and no abdominal pain. No lab draw today Objective - Vital Signs Vital signs: Vital Signs Temp 98.2 F 02/07/24 07:10 Pulse 92 02/07/24 11:22 Resp 17 02/07/24 07:10 BP 145/76 02/07/24 07:10 Pulse Ox 92 L 02/07/24 07:45 FiO2 Intake & Output 02/06/24 02/07/24 02/07/24 18:59 06:59 18:59 Output Total 1150 Balance -1150 Output: Urine 1150 Other: Voiding Method Indwelling Catheter Indwelling Catheter Indwelling Catheter - Exam GENERAL DESCRIPTION: Middle-aged female lying in bed in no distress RESPIRATORY SYSTEM: Unlabored breathing , decreased breath sounds at bases HEART: S1 S2 regular rate and rhythm , ABDOMEN: Soft , no tenderness EXTREMITIES: No edema feet - Labs CBC & Chem 7: 02/08/24 06:00 02/08/24 06:00 Labs: Abnormal Lab Results - Last 24 Hours (Table) 02/06/24 02/06/24 02/07/24 Range/Units 16:49 20:54 05:53 POC Glucose (mg/dL) 202 H 187 H 148 H (70-110) mg/dL 02/07/24 Range/Units 11:39 POC Glucose (mg/dL) 188 H (70-110) mg/dL Assessment and Plan (1) Stage III pressure ulcer of sacral region Current Visit: Yes Status: Acute Code(s): L89.153 - PRESSURE ULCER OF SACRAL REGION, STAGE 3 SNOMED Code(s): 55159879823126 (2) Urinary tract infection Current Visit: Yes Status: Acute Code(s): N39.0 - URINARY TRACT INFECTION, SITE NOT SPECIFIED SNOMED Code(s): 93880624 (3) Aspiration pneumonia Current Visit: Yes Status: Acute Code(s): J69.0 - PNEUMONITIS DUE TO INHALATION OF FOOD AND VOMIT SNOMED Code(s): 884098602 Plan: 1patient presented to hospital with increasing shortness of breath which is likely multifactorial with a possible component of pneumonia likely gram- negative as the patient has been in the hospital versus aspiration etiology 2-patient also has significantly positive despite changing Horn catheter likely component of cath versus UTI likely from enteric gram-negative 3-patient did have a stage III sacral pressure ulcer with slough tissue but no cellulitis local wound care with Medihoney followed by moist dressing and frequent change of position 4-patient urine cultures growing Sarah not albicans patient is currently covered with voriconazole 5-with concern for possible aspiration pneumonia patient is covered with Zosyn may not need any antibiotic on discharge as the patient received adequate Zosyn 6leukocytosis more likely steroid related, the patient white count was slightly up today to 24,000 as of yesterday, no CBC was done today discharge has been put on hold we will repeat a CBC with a.m. lab and monitor clinical course closely Dictation was produced using [employer] dictation software. please excuse any grammatical, word or spelling errors. Time with Patient: Less than 30
--- NOTE | 2024-02-08 14:22 | P.PN ---
Subjective Progress Note Date: 02/08/24 Principal diagnosis: Reason for follow-up is UTI question of pneumonia and a sacral pressure ulcer Patient is a 63-year-old female with a past medical history significan t for diabetes mellitus hypertension hyperlipidemia COPD current everyday smoker, recent multiple admission to the [facility] for UTI followed with the compression fracture of the spine and hypoglycemia has been brought in to [facility] for evaluation of increasing shortness of breath did have abnormal CT angiogram of the chest concerning for effusion atelectasis positive UA concerning for UTI and the patient also have a sacral pressure ulcer. On today's evaluation that is 02/08/2024,the patient denies any fever or any chills, patient is breathing comfortably on 3 L nasal cannula oxygen, the patient denies chest pain shortness of breath and no significant cough or spu gabriella production, patient denies abdominal pain, no nausea vomiting and no diarrhea reported by the nursing staff mention overall sacral wound is looking better as per dressing change yesterday Patient white count is up to 25.37 creatinine 0.4 Objective - Vital Signs Vital signs: Vital Signs Temp 98.0 F 02/08/24 07:35 Pulse 84 02/08/24 08:12 Resp 18 02/08/24 07:35 BP 139/78 02/08/24 07:35 Pulse Ox 92 L 02/08/24 07:46 FiO2 Intake & Output 02/07/24 02/08/24 02/08/24 18:59 06:59 18:59 Output Total 600 425 Balance -600 -425 Output: Urine 600 425 Other: Voiding Method Indwelling Catheter Indwelling Catheter Indwelling Catheter # Voids 3 - Exam GENERAL DESCRIPTION: Middle-aged female lying in bed in no distress RESPIRATORY SYSTEM: Unlabored breathing , decreased breath sounds at bases HEART: S1 S2 regular rate and rhythm , ABDOMEN: Soft , no tenderness EXTREMITIES: No edema feet - Labs CBC & Chem 7: 02/08/24 06:00 02/08/24 06:00 Labs: Abnormal Lab Results - Last 24 Hours (Table) 02/07/24 02/07/24 02/08/24 Range/Units 16:59 20:22 06:00 WBC 25.37 H (4.50-10.00) X 10*3/uL Immature Gran # 0.40 H (0.00-0.04) X 10*3/uL Neutrophils # 22.04 H (1.80-7.70) X 10*3/uL Creatinine (0.6-1.5) mg/dL BUN/Creatinine Ratio (12.00-20.00) Ratio Glucose (70-110) mg/dL POC Glucose (mg/dL) 201 H 166 H (70-110) mg/dL Total Bilirubin (0.3-1.2) mg/dL Alkaline Phosphatase (41-126) U/L Total Protein (6.2-8.2) g/dL Albumin (3.8-4.9) g/dL 02/08/24 Range/Units 06:00 WBC (4.50-10.00) X 10*3/uL Immature Gran # (0.00-0.04) X 10*3/uL Neutrophils # (1.80-7.70) X 10*3/uL Creatinine 0.4 L (0.6-1.5) mg/dL BUN/Creatinine Ratio 58.50 H (12.00-20.00) Ratio Glucose 52 L (70-110) mg/dL POC Glucose (mg/dL) (70-110) mg/dL Total Bilirubin 0.2 L (0.3-1.2) mg/dL Alkaline Phosphatase 248 H (41-126) U/L Total Protein 4.9 L (6.2-8.2) g/dL Albumin 3.1 L (3.8-4.9) g/dL Assessment and Plan (1) Stage III pressure ulcer of sacral region Current Visit: Yes Status: Acute Code(s): L89.153 - PRESSURE ULCER OF SACRAL REGION, STAGE 3 SNOMED Code(s): 34383460069753 (2) Urinary tract infection Current Visit: Yes Status: Acute Code(s): N39.0 - URINARY TRACT INFECTION, SITE NOT SPECIFIED SNOMED Code(s): 84455607 (3) Aspiration pneumonia Current Visit: Yes Status: Acute Code(s): J69.0 - PNEUMONITIS DUE TO INHALATION OF FOOD AND VOMIT SNOMED Code(s): 946886773 Plan: 1patient presented to hospital with increasing shortness of breath which is likely multifactorial with a possible component of pneumonia likely gram-negative as the patient has been in the hospital versus aspiration etiology 2-patient also has significantly positive despite changing Horn catheter likely component of cath versus UTI likely from enteric gram-negative 3-patient did have a stage III sacral pressure ulcer with slough tissue but no cellulitis local wound care with Medihoney followed by moist dressing and frequent change of position 4-patient urine cultures growing Sarah not albicans patient is currently covered with voriconazole 5-with concern for possible aspiration pneumonia patient has received adequate Zosyn we will go ahead and discontinue Zosyn 6leukocytosis with initial concern for more likely steroid related however noticed to have slight worsening of the white count patient notices slight rash to the upper chest questionably to Zosyn hopefully will improve with discontinuation of Zosyn we will repeat her chest x-ray to make sure resolution of her pneumonia we will also change her Horn catheter obtain a urine culture from the new Horn and repeat CBC with a.m. lab Dictation was produced using [employer] dictation software. please excuse any grammatical, word or spelling errors. Time with Patient: Less than 30
[2024-02-08 16:26] LABS: Appearance,Urine Clear (Clear); Bilirubin,Urine Negative (Negative); Blood,Urine Moderate (Negative); Budding Yeast,Urine Few /hpf; Color,Urine Light Yellow; Glucose,Urine (UA) Negative (Negative); Ketones,Urine Negative (Negative); Leukocyte Esterase,Urine Moderate (Negative); Mucus,Urine Rare /hpf; Nitrite,Urine Negative (Negative); Protein,Urine Negative (Negative); RBC,Urine >182 /hpf (0-5); Urobilinogen,Urine <2.0 mg/dL (<2.0); WBC,Urine 27 /hpf (0-5)
[2024-02-08 16:49] LABS: Glucose,Whole Blood 214 mg/dL (70-110)
--- NOTE | 2024-02-08 17:26 | XR ---
EXAMINATION TYPE: XR chest 2V DATE OF EXAM: 02/08/2024 4:56 PM CLINICAL INDICATION:Female, 63 years old with history of Pneumonia; COMPARISON: 01/29/2024 TECHNIQUE: XR chest 2V Frontal and lateral views of the chest. FINDINGS: Lungs/Pleura: There is no evidence of pleural effusion, focal consolidation, or pneumothorax. Pulmonary vascularity: Unremarkable. Heart/mediastinum: Cardiomediastinal silhouette is unremarkable. Musculoskeletal: No acute osseous pathology. IMPRESSION: Similar elevated right diaphragm pneumothorax seen on CT not well appreciated.
[2024-02-08] MEDS: SYMBICORT 160-4.5 MCG INHALER INHALATION SCH (20:50)
[2024-02-08 20:56] LABS: Glucose,Whole Blood 273 mg/dL (70-110)
[2024-02-09 06:01] LABS: Glucose,Whole Blood 264 mg/dL (70-110)
[2024-02-09 10:25] LABS: Basophils # (A) 0.09 X 10*3/uL (0.00-0.10); Basophils % (A) 0.4 %; Eosinophils # (A) 0.03 X 10*3/uL (0.04-0.35); Eosinophils % (A) 0.1 %; HCT 40.1 % (37.2-46.3); HGB 13.4 g/dL (12.0-15.0); Lymphocytes # (A) 1.32 X 10*3/uL (0.90-5.00); Lymphocytes % (A) 5.7 %; MCH 32.5 pg (27.0-32.0); MCHC 33.4 g/dL (32.0-37.0); MCV 97.3 FL (80.0-97.0); Mean Platelet Volume 10.1 FL (9.5-12.2); Monocytes # (A) 0.73 X 10*3/uL (0.20-1.00); Monocytes % (A) 3.2 %; NRBC Per 100 WBC 0 X 10*3/uL (0.00-0.01); Neutrophils % (A) 89.1 %; Platelet Count 357 X 10*3/uL (140-440); RBC 4.12 X 10*6/uL (4.10-5.20); RDW 13.7 % (11.5-14.5); WBC 23.11 X 10*3/uL (4.50-10.00)
[2024-02-09 11:14] LABS: ALT 22 U/L (8-44); AST 17 U/L (13-35); Albumin/Globulin Ratio 1.88 Ratio (1.60-3.17); Alkaline Phosphatase 255 U/L (41-126); BUN/Creat Ratio 44.25 Ratio (12.00-20.00); Blood Urea Nitrogen 17.7 mg/dL (9.0-27.0); Calcium 8.4 mg/dL (8.7-10.3); Carbon Dioxide 25.1 mmol/L (21.6-31.8); Chloride 104 mmol/L (96-109); Globulin 1.6 g/dL (1.6-3.3); Glucose 241 mg/dL (70-110); Potassium 4.2 mmol/L (3.5-5.5); Sodium 138 mmol/L (135-145); Total Bilirubin <0.2 mg/dL (0.3-1.2); Total Protein 4.6 g/dL (6.2-8.2)
[2024-02-09 12:17] LABS: Glucose,Whole Blood 51 mg/dL (70-110)
--- NOTE | 2024-02-09 12:31 | P.PN ---
Subjective Progress Note Date: 02/09/24 On 01/30/2024, the patient is being seen for shortness of breath. She is known to have COPD and diabetes mellitus and she is a chronic smoker. She has a chronic indwelling Horn catheter patient with a recent hospitalization at [facility]. She presented to us with worsening shortness of breath. The white cell count was 11 with a hemoglobin 13.2 and a platelet count of 542, normal electrolytes, normal renal function, UA was abnormal with many WBCs and budding yeast and a white cell count of 182. The patient is currently afebrile. The patient is hemodynamically stable and she is hypoxic currently 90s of oxygen by nasal cannula. Chest x-ray was done emergency department that showed moderate-sized right-sided pleural effusion. CT of the chest was also done which showed very limited effusion in the lung bases. The patient had significant atelectatic changes in the lower lobes bilaterally. No airspace disease or consolidation. No evidence of any pulmonary embolism. No evidence of any filling defects. Accordingly, the patient was hospitalized. She was started on Diflucan 20 mg p.o. daily. She was started on IV Zosyn and a pulmonary consultation was requested. Upon further questioning, it seems that the patient's health has been deteriorating over the past 1 year. The patient has lost considerable mount of weight. She has had issues with oropharyngeal thrush and she has not been able to take oral intake adequately and she has been meeting her caloric requirements. Such, the patient has not more than 50 pounds of weight. She had developed compression fractures. She has been feeling weak. Over the past 2 to 3 weeks, she has become essentially nonambulatory. As far as the Horn catheter, she claims that she has had urinary retention and the physicians at [facility] opted to keep the Horn catheter in place. The patient has been Bound/bedbound. She has developed a sacral decubitus ulcer stage II. She is weak, cachectic, malnourished, and remains debilitated at this point. The boyfriend was unable to take care of her at home. The visiting nurse made a recommendation for her to come into the hospital. She is a chronic smoker. She has COPD. Maintained on Symbicort. No home O2. The patient is seen today January 31, 2024 in follow-up on the regular medical floor. She is currently resting in bed. Awake and alert in no acute distress. She appears quite weak and debilitated. She states she had been falling at home and has fractures in her spine. She had been at [facility] recently. Currently feeling a bit better today compared to yesterday. She has a loose nonproductive cough. She is maintaining O2 saturations in the 90s on 2 L/min per nasal cannula. She remains on Zosyn. Glucose 201. Troponin negative x 2. She is continued on DuoNeb inhalations, Pulmicort and Perforomist inhalations, IV Solu-Medrol. NicoDerm patch in place. The patient is seen today February 01, 2024 and follow-up on the regular medical floor. She is currently sitting about a chair. She is awake and alert. She is quite uncomfortable. She states she hurts everywhere. Mainly from her previous falls. She is being maintained on Percocet alternating with Dilaudid. She is maintaining O2 saturations in the 90s on 2 L nasal cannula. Urine culture reveals Sarah. White count 29.1. Hemoglobin 13.9. Platelets 645. Sodium 142. Potassium 4.0. Bicarb 27. BUN 22. Creatinine 0.3. Glucose 78. She remains on DuoNeb inhalations, Pulmicort and Perforomist inhalations, Solu- Medrol and Singulair. NicoDerm patch is in place. She is on antibiotics in the form of Zosyn. She is on Diflucan. The patient is seen today February 02, 2024 in follow-up on the regular medical floor. She is awake and alert in no acute distress. Currently sitting up in a chair at the bedside. Denies any worsening shortness of breath, cough or congestion. She is maintaining O2 saturations in the 90s on 2 L/min per nasal cannula. She is feeling a bit better today compared to yesterday. Glucose 242. She remains on DuoNeb ventilations, Pulmicort and performing scintillations, Singulair, IV Solu-Medrol. NicoDerm patch in place. Continued on Zosyn. Currently on voriconazole for the Sarah in the urine. Being followed by infectious disease. The patient is seen today February 03, 2024 in follow-up on the regular medical floor. She is currently awake and alert in no acute distress. She is maintaining good O2 saturation in the 90s on 3 L/min per nasal cannula. She is afebrile. Hemodynamically stable. Her main complaints today are lower leg pain and buttocks pain from sacral decubitus ulcer and her previous falls. Bone scan rev ealed multiple areas of abnormal uptake could be on the basis of prior trauma. Abnormal uptake involving the sacrum and pubic rami possibly posttraumatic. Areas of linear uptake involving the lower thoracic and lumbar spine possibly related to compression fractures. White count 21.6. Hemoglobin 12.5. Platelets 474. Sodium 139. Potassium 3.7. Bicarb 26. BUN 26. Creatinine 0.4. Glucose 165. She remains on DuoNeb ventilations, Pulmicort and Perforomist inhalations, IV Solu-Medrol and Singulair. NicoDerm patch in place. Antibiotics in the form of Zosyn. Remains on voriconazole. The patient is seen today February 04, 2024 in follow-up on the regular medical floor. She is currently sitting up in bed. Awake and alert in no acute distress. She is feeling quite a bit better today. Less pain and discomfort. She denies any worsening shortness of breath, cough or congestion. She is maintaining O2 saturations in the 90s on 2 L/min per nasal cannula. She has been afebrile. Hemodynamically stable. Glucose 252. She remains on bronchodilators, Singulair and Solu-Medrol. NicoDerm patch in place. Antibiotics in the form of Zosyn. Remains on voriconazole. Patient was reevaluated today on 02/05/2024, patient is doing great, asymptomatic, she has no active pulmonary symptoms, patient is being considered for possible discharge to rehab today. And I think that is very appropriate. Patient was reevaluated today on 02/06/2024, patient is doing great, she [facility], however there was no bed available, and her discharge was delayed. Patient has no active pulmonary symptoms, I will still clear the patient for discharge once a bed is available even if available today for The patient was seen today February 07, 2024 in follow-up on the regular medical floor. She is currently sitting up in bed. Awake and alert in no acute distress. Maintaining good O2 saturations in the 90s on 3 L/min per nasal cannula. Normal saline at KVO. Glucose 188. She is continued on DuoNeb ventilations, Pulmicort and Perforomist inhalations, Singulair, prednisone taper. Remains on Zosyn and voriconazole. The patient is seen today February 08, 2024 in follow-up on the regular medical floor. She is currently sitting up in bed. Awake and alert in no acute distress. She is maintaining O2 saturations in the 90s on 3 L/min per nasal cannula. She has normal saline at KVO. Denies any chest pain. No worsening shortness of breath, cough or congestion. She is continued on Symbicort, Singulair and DuoNeb inhalations. Remains on Zosyn. NicoDerm patch in place. White count 25.3. Hemoglobin 13.8. Platelets 394. Sodium 139. Potassium 4.6. Bicarb 26. BUN 23. Creatinine 0.4. Glucose 98. The patient is seen today February 09, 2024 in follow-up on the regular medical floor. She is awake and alert in no acute distress. Resting comfortably in bed. Maintaining O2 saturations in the 90s on 3 L/min per nasal cannula. No IV fluids. Follow-up chest x-ray reveals similar elevated right diaphragm. No pleural effusion, consolidation or pneumothorax. White count 23.1. Hemoglobin 13.4. Platelets 357. Sodium 138. Potassium 4.2. Bicarb 25. BUN 18. Creatinine 0.4. Glucose 241. Remains on voriconazole. Continued on bronchodilators. Continued on a prednisone taper. NicoDerm patch in place. Objective - Vital Signs Vital signs: Vital Signs Temp 98.3 F 02/09/24 07:49 Pulse 93 02/09/24 09:42 Resp 18 02/09/24 07:49 BP 133/67 02/09/24 07:49 Pulse Ox 97 02/09/24 09:35 FiO2 Intake & Output 02/08/24 02/09/24 02/09/24 18:59 06:59 18:59 Output Total 850 450 325 Balance -850 -450 -325 Weight 47.627 kg Output: Urine 850 450 325 Uretheral (Horn) 225 450 Other: Voiding Method Indwelling Catheter Indwelling Catheter - Exam GENERAL EXAM: Alert, 63-year-old female, resting in bed, on 3 L nasal cannula, in no distress. HEAD: Normocephalic. EYES: Normal reaction of pupils, equal size. NOSE: Clear with pink turbinates. THROAT: No erythema or exudates. NECK: No masses, no JVD. CHEST: No chest wall deformity. LUNGS: Equal air entry with bilateral end expiratory wheeze, diminished. CVS: S1 and S2 normal with no audible murmur, regular rhythm. ABDOMEN: No hepatosplenomegaly, normal bowel sounds, no guarding or rigidity. SPINE: No scoliosis or deformity SKIN: No rashes. Stage II sacral decubitus ulcer CENTRAL NERVOUS SYSTEM: No focal deficits, tone is normal in all 4 extremities. EXTREMITIES: There is no peripheral edema. No clubbing, no cyanosis. Periph eral pulses are intact. - Labs CBC & Chem 7: 02/09/24 06:13 02/09/24 06:13 Labs: Abnormal Lab Results - Last 24 Hours (Table) 02/08/24 02/08/24 02/08/24 Range/Units 16:00 16:48 20:55 WBC (4.50-10.00) X 10*3/uL MCV (80.0-97.0) FL MCH (27.0-32.0) pg Immature Gran # (0.00-0.04) X 10*3/uL Neutrophils # (1.80-7.70) X 10*3/uL Eosinophils # (0.04-0.35) X 10*3/uL Creatinine (0.6-1.5) mg/dL BUN/Creatinine Ratio (12.00-20.00) Ratio Glucose (70-110) mg/dL POC Glucose (mg/dL) 214 H 273 H (70-110) mg/dL Calcium (8.7-10.3) mg/dL Total Bilirubin (0.3-1.2) mg/dL Alkaline Phosphatase (41-126) U/L Total Protein (6.2-8.2) g/dL Albumin (3.8-4.9) g/dL Urine Blood Moderate H (Negative) Ur Leukocyte Esterase Moderate H (Negative) Urine RBC >182 H (0-5) /hpf Urine WBC 27 H (0-5) /hpf Urine Mucus Rare H (None) /hpf Urine Yeast (Budding) Few H (None) /hpf 02/09/24 02/09/24 02/09/24 Range/Units 05:57 06:13 06:13 WBC 23.11 H (4.50-10.00) X 10*3/uL MCV 97.3 H (80.0-97.0) FL MCH 32.5 H (27.0-32.0) pg Immature Gran # 0.34 H (0.00-0.04) X 10*3/uL Neutrophils # 20.60 H (1.80-7.70) X 10*3/uL Eosinophils # 0.03 L (0.04-0.35) X 10*3/uL Creatinine 0.4 L (0.6-1.5) mg/dL BUN/Creatinine Ratio 44.25 H (12.00-20.00) Ratio Glucose 241 H (70-110) mg/dL POC Glucose (mg/dL) 264 H (70-110) mg/dL Calcium 8.4 L (8.7-10.3) mg/dL Total Bilirubin <0.2 L (0.3-1.2) mg/dL Alkaline Phosphatase 255 H (41-126) U/L Total Protein 4.6 L (6.2-8.2) g/dL Albumin 3.0 L (3.8-4.9) g/dL Urine Blood (Negative) Ur Leukocyte Esterase (Negative) Urine RBC (0-5) /hpf Urine WBC (0-5) /hpf Urine Mucus (None) /hpf Urine Yeast (Budding) (None) /hpf 02/09/24 Range/Units 12:15 WBC (4.50-10.00) X 10*3/uL MCV (80.0-97.0) FL MCH (27.0-32.0) pg Immature Gran # (0.00-0.04) X 10*3/uL Neutrophils # (1.80-7.70) X 10*3/uL Eosinophils # (0.04-0.35) X 10*3/uL Creatinine (0.6-1.5) mg/dL BUN/Creatinine Ratio (12.00-20.00) Ratio Glucose (70-110) mg/dL POC Glucose (mg/dL) 51 L (70-110) mg/dL Calcium (8.7-10.3) mg/dL Total Bilirubin (0.3-1.2) mg/dL Alkaline Phosphatase (41-126) U/L Total Protein (6.2-8.2) g/dL Albumin (3.8-4.9) g/dL Urine Blood (Negative) Ur Leukocyte Esterase (Negative) Urine RBC (0-5) /hpf Urine WBC (0-5) /hpf Urine Mucus (None) /hpf Urine Yeast (Budding) (None) /hpf Assessment and Plan Assessment: Acute hypoxic respiratory failure suspect secondary to aspiration pneumonia, currently on 3 L of oxygen by nasal cannula. CTA of the chest shows no evidence of any pulmonary embolism. Extensive atelectatic changes in lung base bilaterally right more than left with small pleural effusions. Consider aspiration. Completed Zosyn Acute exacerbation of COPD Chronic and ongoing tobacco dependence Sarah in the urine currently on voriconazole Diabetes mellitus type 2 Hypertension Hyperlipidemia Depression Chronic urinary retention maintained on a chronic indwelling Horn catheter. Culture positive for Sarah. Currently on voriconazole Weight loss, unexplained Compression fracture of the spine Stage II sacral decub ulcer Significant debility and impaired performance and functional status and the patient is currently unable to ambulate and she has been essentially c hair/bedbound for the past month or so Frequent falls, hospitalized at [facility] Plan: The patient was seen and evaluated Chest x-ray, medications and labs reviewed Stable and on 3 L nasal cannula Continue bronchodilators, prednisone taper [facility] I have personally seen and examined the patient, performed the documentation and the assessment and plan as written. Number of minutes spent on the visit: 10.
[2024-02-09 12:48] LABS: Glucose,Whole Blood 83 mg/dL (70-110)
[2024-02-09 17:09] LABS: Glucose,Whole Blood 164 mg/dL (70-110)
[2024-02-09 20:44] LABS: Glucose,Whole Blood 253 mg/dL (70-110)
--- NOTE | 2024-02-10 04:04 | PN ---
PROGRESS NOTE SUBJECTIVE: She has been kept here due to elevated white count, elevated less than 25 down to 23 with a left shift, 20,000 neutrophils. We are checking for aspiration pneumonia and recurrent UTI. Urine culture is Sarah albicans on January 28. Plan for Pulmonary and Infectious Disease to clear for discharge. OBJECTIVE: GENERAL: She is thin, cachectic. CARDIOVASCULAR: S1, S2. LUNGS: Transmitted upper sounds. Decrease wheeze. PSYCH: Poor mood and affect. NEUROLOGIC: Alert and oriented x3. She is on 3 L oxygen. She is on voriconazole. Pulmonary said she probably could go home. Awaiting for Infectious Disease recommendations, on her white count coming down possibly discharge in next 24 to 48 hours. Temp 99, blood pressure 130s over 80s, O2 92 on 3 L, respiratory rate 18, pulse 84. Prognosis guarded. Continue current treatment for COPD, UTI, aspiration pneumonia, etc,. Prognosis guarded. MMODL / IJN: [id number] /
[2024-02-10 05:06] LABS: Glucose,Whole Blood 39 mg/dL (70-110)
[2024-02-10 05:21] LABS: Glucose,Whole Blood 37 mg/dL (70-110)
[2024-02-10] MEDS: DEXTROSE 50% SYRINGE 50 ML IVP STA (05:23)
[2024-02-10 05:37] LABS: Glucose,Whole Blood 83 mg/dL (70-110)
[2024-02-10 06:25] LABS: Glucose,Whole Blood 123 mg/dL (70-110)
[2024-02-10 08:17] LABS: Glucose,Whole Blood 147 mg/dL (70-110)
--- NOTE | 2024-02-10 11:27 | P.PN ---
Subjective Progress Note Date: 02/10/24 On 01/30/2024, the patient is being seen for shortness of breath. She is known to have COPD and diabetes mellitus and she is a chronic smoker. She has a chronic indwelling Horn catheter patient with a recent hospitalization at [facility]. She presented to us with worsening shortness of breath. The white cell count was 11 with a hemoglobin 13.2 and a platelet count of 542, normal electrolytes, normal renal function, UA was abnormal with many WBCs and budding yeast and a white cell count of 182. The patient is currently afebrile. The patient is hemodynamically stable and she is hypoxic currently 90s of oxygen by nasal cannula. Chest x-ray was done emergency department that showed moderate-sized right-sided pleural effusion. CT of the chest was also done which showed very limited effusion in the lung bases. The patient had significant atelectatic changes in the lower lobes bilaterally. No airspace disease or consolidation. No evidence of any pulmonary embolism. No evidence of any filling defects. Accordingly, the patient was hospitalized. She was started on Diflucan 20 mg p.o. daily. She was started on IV Zosyn and a pulmonary consultation was requested. Upon further questioning, it seems that the patient's health has been deteriorating over the past 1 year. The patient has lost considerable mount of weight. She has had issues with oropharyngeal thrush and she has not been able to take oral intake adequately and she has been meeting her caloric requirements. Such, the patient has not more than 50 pounds of weight. She had developed compression fractures. She has been feeling weak. Over the past 2 to 3 weeks, she has become essentially nonambulatory. As far as the Horn catheter, she claims that she has had urinary retention and the physicians at [facility] opted to keep the Horn catheter in place. The patient has been Bound/bedbound. She has developed a sacral decubitus ulcer stage II. She is weak, cachectic, malnourished, and remains debilitated at this point. The boyfriend was unable to take care of her at home. The visiting nurse made a recommendation for her to come into the hospital. She is a chronic smoker. She has COPD. Maintained on Symbicort. No home O2. The patient is seen today January 31, 2024 in follow-up on the regular medical floor. She is currently resting in bed. Awake and alert in no acute distress. She appears quite weak and debilitated. She states she had been falling at home and has fractures in her spine. She had been at [facility] recently. Currently feeling a bit better today compared to yesterday. She has a loose nonproductive cough. She is maintaining O2 saturations in the 90s on 2 L/min per nasal cannula. She remains on Zosyn. Glucose 201. Troponin negative x 2. She is continued on DuoNeb inhalations, Pulmicort and Perforomist inhalations, IV Solu-Medrol. NicoDerm patch in place. The patient is seen today February 01, 2024 and follow-up on the regular medical floor. She is currently sitting about a chair. She is awake and alert. She is quite uncomfortable. She states she hurts everywhere. Mainly from her previous falls. She is being maintained on Percocet alternating with Dilaudid. She is maintaining O2 saturations in the 90s on 2 L nasal cannula. Urine culture reveals Sarah. White count 29.1. Hemoglobin 13.9. Platelets 645. Sodium 142. Potassium 4.0. Bicarb 27. BUN 22. Creatinine 0.3. Glucose 78. She remains on DuoNeb inhalations, Pulmicort and Perforomist inhalations, Solu- Medrol and Singulair. NicoDerm patch is in place. She is on antibiotics in the form of Zosyn. She is on Diflucan. The patient is seen today February 02, 2024 in follow-up on the regular medical floor. She is awake and alert in no acute distress. Currently sitting up in a chair at the bedside. Denies any worsening shortness of breath, cough or congestion. She is maintaining O2 saturations in the 90s on 2 L/min per nasal cannula. She is feeling a bit better today compared to yesterday. Glucose 242. She remains on DuoNeb ventilations, Pulmicort and performing scintillations, Singulair, IV Solu-Medrol. NicoDerm patch in place. Continued on Zosyn. Currently on voriconazole for the Sarah in the urine. Being followed by infectious disease. The patient is seen today February 03, 2024 in follow-up on the regular medical floor. She is currently awake and alert in no acute distress. She is maintaining good O2 saturation in the 90s on 3 L/min per nasal cannula. She is afebrile. Hemodynamically stable. Her main complaints today are lower leg pain and buttocks pain from sacral decubitus ulcer and her previous falls. Bone scan rev ealed multiple areas of abnormal uptake could be on the basis of prior trauma. Abnormal uptake involving the sacrum and pubic rami possibly posttraumatic. Areas of linear uptake involving the lower thoracic and lumbar spine possibly related to compression fractures. White count 21.6. Hemoglobin 12.5. Platelets 474. Sodium 139. Potassium 3.7. Bicarb 26. BUN 26. Creatinine 0.4. Glucose 165. She remains on DuoNeb ventilations, Pulmicort and Perforomist inhalations, IV Solu-Medrol and Singulair. NicoDerm patch in place. Antibiotics in the form of Zosyn. Remains on voriconazole. The patient is seen today February 04, 2024 in follow-up on the regular medical floor. She is currently sitting up in bed. Awake and alert in no acute distress. She is feeling quite a bit better today. Less pain and discomfort. She denies any worsening shortness of breath, cough or congestion. She is maintaining O2 saturations in the 90s on 2 L/min per nasal cannula. She has been afebrile. Hemodynamically stable. Glucose 252. She remains on bronchodilators, Singulair and Solu-Medrol. NicoDerm patch in place. Antibiotics in the form of Zosyn. Remains on voriconazole. Patient was reevaluated today on 02/05/2024, patient is doing great, asymptomatic, she has no active pulmonary symptoms, patient is being considered for possible discharge to rehab today. And I think that is very appropriate. Patient was reevaluated today on 02/06/2024, patient is doing great, she was supposed to be discharged to long-term yesterday, however there was no bed available, and her discharge was delayed. Patient has no active pulmonary symptoms, I will still clear the patient for discharge once a bed is available even if available today for The patient was seen today February 07, 2024 in follow-up on the regular medical floor. She is currently sitting up in bed. Awake and alert in no acute distress. Maintaining good O2 saturations in the 90s on 3 L/min per nasal cannula. Normal saline at KVO. Glucose 188. She is continued on DuoNeb ventilations, Pulmicort and Perforomist inhalations, Singulair, prednisone taper. Remains on Zosyn and voriconazole. The patient is seen today February 08, 2024 in follow-up on the regular medical floor. She is currently sitting up in bed. Awake and alert in no acute distress. She is maintaining O2 saturations in the 90s on 3 L/min per nasal cannula. She has normal saline at KVO. Denies any chest pain. No worsening shortness of breath, cough or congestion. She is continued on Symbicort, Singulair and DuoNeb inhalations. Remains on Zosyn. NicoDerm patch in place. White count 25.3. Hemoglobin 13.8. Platelets 394. Sodium 139. Potassium 4.6. Bicarb 26. BUN 23. Creatinine 0.4. Glucose 98. The patient is seen today February 09, 2024 in follow-up on the regular medical floor. She is awake and alert in no acute distress. Resting comfortably in bed. Maintaining O2 saturations in the 90s on 3 L/min per nasal cannula. No IV fluids. Follow-up chest x-ray reveals similar elevated right diaphragm. No pleural effusion, consolidation or pneumothorax. White count 23.1. Hemoglobin 13.4. Platelets 357. Sodium 138. Potassium 4.2. Bicarb 25. BUN 18. Creatinine 0.4. Glucose 241. Remains on voriconazole. Continued on bronchodilators. Continued on a prednisone taper. NicoDerm patch in place. The patient is seen today February 10, 2024 in follow-up on the regular medical floor. She is sitting up in bed. Awake and alert in no acute distress. He is maintaining good O2 saturations in the 90s on 3 L/min per nasal cannula. She has been afebrile. Hemodynamically stable. Follow-up urine culture revealed no growth glucose 147. She remains on DuoNeb ventilations, Symbicort, prednisone taper and Singulair. She remains on voriconazole. NicoDerm patch in place. Objective - Vital Signs Vital signs: Vital Signs Temp 96.7 F L 02/10/24 07:10 Pulse 88 02/10/24 09:40 Resp 18 02/10/24 11:08 BP 105/64 02/10/24 07:10 Pulse Ox 94 L 02/10/24 09:28 FiO2 Intake & Output 02/09/24 02/10/24 02/10/24 18:59 06:59 18:59 Output Total 750 550 Balance -750 -550 Output: Urine 750 550 Uretheral (Horn) 550 Other: Voiding Method Indwelling Catheter Indwelling Catheter Indwelling Catheter - Exam GENERAL EXAM: Alert, 63-year-old female, appears older than stated age, resting in bed, on 3 L nasal cannula, in no distress. HEAD: Normocephalic. EYES: Normal reaction of pupils, equal size. NOSE: Clear with pink turbinates. THROAT: No erythema or exudates. NECK: No masses, no JVD. CHEST: No chest wall deformity. LUNGS: Equal air entry with bilateral end expiratory wheeze, diminished. CVS: S1 and S2 normal with no audible murmur, regular rhythm. ABDOMEN: No hepatosplenomegaly, normal bowel sounds, no guarding or rigidity. SPINE: No scoliosis or deformity SKIN: No rashes. Stage II sacral decubitus ulcer CENTRAL NERVOUS SYSTEM: No focal deficits, tone is normal in all 4 extremities. EXTREMITIES: There is no peripheral edema. No clubbing, no cyanosis. Peripheral pulses are intact. - Labs CBC & Chem 7: 02/09/24 06:13 02/09/24 06:13 Labs: Abnormal Lab Results - Last 24 Hours (Table) 02/09/24 02/09/24 02/09/24 Range/Units 12:15 17:04 20:43 POC Glucose (mg/dL) 51 L 164 H 253 H (70-110) mg/dL 02/10/24 02/10/24 02/10/24 Range/Units 05:04 05:19 06:23 POC Glucose (mg/dL) 39 L 37 L 123 H (70-110) mg/dL 02/10/24 Range/Units 08:16 POC Glucose (mg/dL) 147 H (70-110) mg/dL Microbiology - Last 24 Hours (Table) 02/08/24 16:00 Urine Culture - Final Urine,Voided Assessment and Plan Assessment: Acute hypoxic respiratory failure suspect secondary to aspiration pneumonia, currently on 3 L of oxygen by nasal cannula. CTA of the chest shows no evidence of any pulmonary embolism. Extensive atelectatic changes in lung base bilaterally right more than left with small pleural effusions. Consider aspiration. Completed Zosyn Acute exacerbation of COPD Chronic and ongoing tobacco dependence Diabetes mellitus type 2 Hypertension Hyperlipidemia Depression Chronic urinary retention maintained on a chronic indwelling Horn catheter. Culture positive for Sarah. Currently on voriconazole Weight loss, unexplained Compression fracture of the spine Stage II sacral decub ulcer Significant debility and impaired performance and functional status and the patient is currently unable to ambulate and she has been essentially chair/bedbound for the past month or so Frequent falls, hospitalized at [facility] Plan: The patient was seen and evaluated Medications and labs reviewed Continue bronchodilators, prednisone taper Cleared for discharge from the pulmonary standpoint I have personally seen and examined the patient, performed the documentation and the assessment and plan as written. Number of minutes spent on the visit: 10.
[2024-02-10 11:37] LABS: Glucose,Whole Blood 144 mg/dL (70-110)
--- NOTE | 2024-02-10 15:09 | P.PN ---
Subjective Progress Note Date: 02/09/24 Principal diagnosis: Reason for follow-up is UTI question of pneumonia and a sacral pressure ulcer Patient is a 63-year-old female with a past medical history significan t for diabetes mellitus hypertension hyperlipidemia COPD current everyday smoker, recent multiple admission to the [facility] for UTI followed with the compression fracture of the spine and hypoglycemia has been brought in to [facility] for evaluation of increasing shortness of breath did have abnormal CT angiogram of the chest concerning for effusion atelectasis positive UA concerning for UTI and the patient also have a sacral pressure ulcer. On today's evaluation that is 02/09/2024,the patient remains to be afebrile, patient is on 3 L nasal cannula supplemental oxygen and denies any shortness of breath no chest pain or cough.Patient denies having any nausea or vomiting, no abdominal pain and no diarrhea has been reported patient mention not feeling that good today. Patient white count of 12 23,000, creatinine 0 point 4 repeat urine was positive cultures are pending Objective - Vital Signs Vital signs: Vital Signs Temp 98.3 F 02/09/24 07:49 Pulse 93 02/09/24 09:42 Resp 18 02/09/24 07:49 BP 133/67 02/09/24 07:49 Pulse Ox 97 02/09/24 09:35 FiO2 Intake & Output 02/08/24 02/09/24 02/09/24 18:59 06:59 18:59 Output Total 850 450 325 Balance -850 -450 -325 Weight 47.627 kg Output: Urine 850 450 325 Uretheral (Horn) 225 450 Other: Voiding Method Indwelling Catheter Indwelling Catheter - Exam GENERAL DESCRIPTION: Middle-aged female lying in bed in no distress RESPIRATORY SYSTEM: Unlabored breathing , decreased breath sounds at bases HEART: S1 S2 regular rate and rhythm , ABDOMEN: Soft , no tenderness EXTREMITIES: No edema feet - Labs CBC & Chem 7: 02/09/24 06:13 02/09/24 06:13 Labs: Abnormal Lab Results - Last 24 Hours (Table) 02/08/24 02/08/24 02/08/24 Range/Units 16:00 16:48 20:55 WBC (4.50-10.00) X 10*3/uL MCV (80.0-97.0) FL MCH (27.0-32.0) pg Immature Gran # (0.00-0.04) X 10*3/uL Neutrophils # (1.80-7.70) X 10*3/uL Eosinophils # (0.04-0.35) X 10*3/uL POC Glucose (mg/dL) 214 H 273 H (70-110) mg/dL Urine Blood Moderate H (Negative) Ur Leukocyte Esterase Moderate H (Negative) Urine RBC >182 H (0-5) /hpf Urine WBC 27 H (0-5) /hpf Urine Mucus Rare H (None) /hpf Urine Yeast (Budding) Few H (None) /hpf 02/09/24 02/09/24 Range/Units 05:57 06:13 WBC 23.11 H (4.50-10.00) X 10*3/uL MCV 97.3 H (80.0-97.0) FL MCH 32.5 H (27.0-32.0) pg Immature Gran # 0.34 H (0.00-0.04) X 10*3/uL Neutrophils # 20.60 H (1.80-7.70) X 10*3/uL Eosinophils # 0.03 L (0.04-0.35) X 10*3/uL POC Glucose (mg/dL) 264 H (70-110) mg/dL Urine Blood (Negative) Ur Leukocyte Esterase (Negative) Urine RBC (0-5) /hpf Urine WBC (0-5) /hpf Urine Mucus (None) /hpf Urine Yeast (Budding) (None) /hpf Assessment and Plan (1) Stage III pressure ulcer of sacral region Current Visit: Yes Status: Acute Code(s): L89.153 - PRESSURE ULCER OF SACRAL REGION, STAGE 3 SNOMED Code(s): 70346330257132 (2) Urinary tract infection Current Visit: Yes Status: Acute Code(s): N39.0 - URINARY TRACT INFECTION, SITE NOT SPECIFIED SNOMED Code(s): 26320516 (3) Aspiration pneumonia Current Visit: Yes Status: Acute Code(s): J69.0 - PNEUMONITIS DUE TO INHALATION OF FOOD AND VOMIT SNOMED Code(s): 499420852 Plan: 1patient presented to hospital with increasing shortness of breath which is likely multifactorial with a possible component of pneumonia likely gram- negative as the patient has been in the hospital versus aspiration etiology 2-patient also has significantly positive despite changing Horn catheter likely component of cath versus UTI likely from enteric gram-negative 3-patient did have a stage III sacral pressure ulcer with slough tissue but no cellulitis local wound care with Medihoney followed by moist dressing and frequent change of position 4-patient urine cultures growing Sarah not albicans patient is currently covered with voriconazole 5-patient with possible aspiration pneumonia patient has received adequate Zosyn and currently being monitored closely off antibiotic therapy 6leukocytosis with initial concern for more likely steroid related however noticed to have slight worsening of the white count patient Horn catheter has been changed repeat UA is positive patient white count is trending down continue with voriconazole while waiting for repeat culture to finalize Dictation was produced using [employer] dictation software. please excuse any grammatical, word or spelling errors. Time with Patient: Less than 30
--- NOTE | 2024-02-10 15:10 | P.PN ---
Subjective Progress Note Date: 02/10/24 Principal diagnosis: Reason for follow-up is UTI question of pneumonia and a sacral pressure ulcer Patient is a 63-year-old female with a past medical history significan t for diabetes mellitus hypertension hyperlipidemia COPD current everyday smoker, recent multiple admission to the [facility] for UTI followed with the compression fracture of the spine and hypoglycemia has been brought in to [facility] for evaluation of increasing shortness of breath did have abnormal CT angiogram of the chest concerning for effusion atelectasis positive UA concerning for UTI and the patient also have a sacral pressure ulcer. On today's evaluation that is 02/10/2024, the patient continues to be afebrile, the patient is on 1 L nasal cannula oxygen and breathing comfortably, the Pt denies having any chest pain or cough, the patient denies having any abdominal pain no vomiting or any diarrhea has been reported by the nursing staff, patient mention feeling better today. No new labs were drawn today Objective - Vital Signs Vital signs: Vital Signs Temp 97.7 F 02/10/24 13:59 Pulse 93 02/10/24 13:59 Resp 19 02/10/24 13:59 BP 116/73 02/10/24 13:59 Pulse Ox 92 L 02/10/24 13:59 FiO2 Intake & Output 02/09/24 02/10/24 02/10/24 18:59 06:59 18:59 Intake Total 200 Output Total 750 550 Balance -750 -550 200 Weight 47.627 kg Intake: Oral 200 Output: Urine 750 550 Uretheral (Horn) 550 Other: Voiding Method Indwelling Catheter Indwelling Catheter Indwelling Catheter - Exam GENERAL DESCRIPTION: Middle-aged female lying in bed in no distress RESPIRATORY SYSTEM: Unlabored breathing , decreased breath sounds at bases HEART: S1 S2 regular rate and rhythm , ABDOMEN: Soft , no tenderness EXTREMITIES: No edema feet - Labs CBC & Chem 7: 02/09/24 06:13 02/09/24 06:13 Labs: Abnormal Lab Results - Last 24 Hours (Table) 02/09/24 02/09/24 02/10/24 Range/Units 17:04 20:43 05:04 POC Glucose (mg/dL) 164 H 253 H 39 L (70-110) mg/dL 02/10/24 02/10/24 02/10/24 Range/Units 05:19 06:23 08:16 POC Glucose (mg/dL) 37 L 123 H 147 H (70-110) mg/dL 02/10/24 Range/Units 11:36 POC Glucose (mg/dL) 144 H (70-110) mg/dL Microbiology - Last 24 Hours (Table) 02/08/24 16:00 Urine Culture - Final Urine,Voided Assessment and Plan (1) Stage III pressure ulcer of sacral region Current Visit: Yes Status: Acute Code(s): L89.153 - PRESSURE ULCER OF SACRAL REGION, STAGE 3 SNOMED Code(s): 34477086704379 (2) Urinary tract infection Current Visit: Yes Status: Acute Code(s): N39.0 - URINARY TRACT INFECTION, SITE NOT SPECIFIED SNOMED Code(s): 99594740 (3) Aspiration pneumonia Current Visit: Yes Status: Acute Code(s): J69.0 - PNEUMONITIS DUE TO INHALATION OF FOOD AND VOMIT SNOMED Code(s): 140106313 Plan: 1patient presented to hospital with increasing shortness of breath which is likely multifactorial with a possible component of pneumonia likely gram- negative as the patient has been in the hospital versus aspiration etiology 2-patient also has significantly positive despite changing Horn catheter likely component of cath versus UTI likely from enteric gram-negative 3-patient did have a stage III sacral pressure ulcer with slough tissue but no cellulitis local wound care with Medihoney followed by moist dressing and frequent change of position 4-patient urine cultures growing Sarah not albicans patient is currently covered with voriconazole 5-patient with possible aspiration pneumonia patient has received adequate Zosyn and currently being monitored closely off antibiotic therapy 6patient white count did improve after change her Horn catheter repeat urine is positive we will repeat a CBC with a.m. lab continue with voriconazole Dictation was produced using [employer] software. please excuse any grammatical, word or spelling errors.
[2024-02-10 16:35] LABS: Glucose,Whole Blood 245 mg/dL (70-110)
[2024-02-10] MEDS: INSULIN ASPART (NovoLOG) 100 UNIT/ML VIAL SQ SCH (16:59)
[2024-02-10 21:32] LABS: Glucose,Whole Blood 268 mg/dL (70-110)
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
[2024-02-11 02:35] LABS: Glucose,Whole Blood 243 mg/dL (70-110)
[2024-02-11 06:29] LABS: Glucose,Whole Blood 85 mg/dL (70-110)
[2024-02-11] MEDS: INSULIN ASPART (NovoLOG) 100 UNIT/ML VIAL SQ SCH (06:43)
[2024-02-11 10:22] LABS: Basophils # (A) 0.08 X 10*3/uL (0.00-0.10); Basophils % (A) 0.2 %; Eosinophils # (A) 0.01 X 10*3/uL (0.04-0.35); Eosinophils % (A) 0 %; HCT 40.1 % (37.2-46.3); Lymphocytes # (A) 1.07 X 10*3/uL (0.90-5.00); Lymphocytes % (A) 3.3 %; MCH 32.2 pg (27.0-32.0); MCHC 32.4 g/dL (32.0-37.0); MCV 99.3 FL (80.0-97.0); Monocytes # (A) 0.76 X 10*3/uL (0.20-1.00); Monocytes % (A) 2.3 %; NRBC Per 100 WBC 0 X 10*3/uL (0.00-0.01); Neutrophils # (A) 30.32 X 10*3/uL (1.80-7.70); Neutrophils % (A) 93.2 %; Platelet Count 346 X 10*3/uL (140-440); RBC 4.04 X 10*6/uL (4.10-5.20); RDW 13.9 % (11.5-14.5); WBC 32.58 X 10*3/uL (4.50-10.00)
[2024-02-11 11:01] LABS: ALT 20 U/L (8-44); AST 18 U/L (13-35); Albumin 2.9 g/dL (3.8-4.9); Albumin/Globulin Ratio 1.71 Ratio (1.60-3.17); Alkaline Phosphatase 227 U/L (41-126); Blood Urea Nitrogen 18.6 mg/dL (9.0-27.0); Calcium 8.4 mg/dL (8.7-10.3); Carbon Dioxide 28.3 mmol/L (21.6-31.8); Chloride 102 mmol/L (96-109); Globulin 1.7 g/dL (1.6-3.3); Glucose 62 mg/dL (70-110); Potassium 4.1 mmol/L (3.5-5.5); Sodium 139 mmol/L (135-145); Total Bilirubin 0.2 mg/dL (0.3-1.2); Total Protein 4.6 g/dL (6.2-8.2)
[2024-02-11 11:25] LABS: Glucose,Whole Blood 151 mg/dL (70-110)
--- NOTE | 2024-02-11 12:02 | P.PN ---
Subjective Progress Note Date: 02/11/24 On 01/30/2024, the patient is being seen for shortness of breath. She is known to have COPD and diabetes mellitus and she is a chronic smoker. She has a chronic indwelling Horn catheter patient with a recent hospitalization at [facility]. She presented to us with worsening shortness of breath. The white cell count was 11 with a hemoglobin 13.2 and a platelet count of 542, normal electrolytes, normal renal function, UA was abnormal with many WBCs and budding yeast and a white cell count of 182. The patient is currently afebrile. The patient is hemodynamically stable and she is hypoxic currently 90s of oxygen by nasal cannula. Chest x-ray was done emergency department that showed moderate-sized right-sided pleural effusion. CT of the chest was also done which showed very limited effusion in the lung bases. The patient had significant atelectatic changes in the lower lobes bilaterally. No airspace disease or consolidation. No evidence of any pulmonary embolism. No evidence of any filling defects. Accordingly, the patient was hospitalized. She was started on Diflucan 20 mg p.o. daily. She was started on IV Zosyn and a pulmonary consultation was requested. Upon further questioning, it seems that the patient's health has been deteriorating over the past 1 year. The patient has lost considerable mount of weight. She has had issues with oropharyngeal thrush and she has not been able to take oral intake adequately and she has been meeting her caloric requirements. Such, the patient has not more than 50 pounds of weight. She had developed compression fractures. She has been feeling weak. Over the past 2 to 3 weeks, she has become essentially nonambulatory. As far as the Horn catheter, she claims that she has had urinary retention and the physicians at [facility] opted to keep the Horn catheter in place. The patient has been Bound/bedbound. She has developed a sacral decubitus ulcer stage II. She is weak, cachectic, malnourished, and remains debilitated at this point. The boyfriend was unable to take care of her at home. The visiting nurse made a recommendation for her to come into the hospital. She is a chronic smoker. She has COPD. Maintained on Symbicort. No home O2. The patient is seen today January 31, 2024 in follow-up on the regular medical floor. She is currently resting in bed. Awake and alert in no acute distress. She appears quite weak and debilitated. She states she had been falling at home and has fractures in her spine. She had been at [facility] recently. Currently feeling a bit better today compared to yesterday. She has a loose nonproductive cough. She is maintaining O2 saturations in the 90s on 2 L/min per nasal cannula. She remains on Zosyn. Glucose 201. Troponin negative x 2. She is continued on DuoNeb inhalations, Pulmicort and Perforomist inhalations, IV Solu-Medrol. NicoDerm patch in place. The patient is seen today February 01, 2024 and follow-up on the regular medical floor. She is currently sitting about a chair. She is awake and alert. She is quite uncomfortable. She states she hurts everywhere. Mainly from her previous falls. She is being maintained on Percocet alternating with Dilaudid. She is maintaining O2 saturations in the 90s on 2 L nasal cannula. Urine culture reveals Sarah. White count 29.1. Hemoglobin 13.9. Platelets 645. Sodium 142. Potassium 4.0. Bicarb 27. BUN 22. Creatinine 0.3. Glucose 78. She remains on DuoNeb inhalations, Pulmicort and Perforomist inhalations, Solu- Medrol and Singulair. NicoDerm patch is in place. She is on antibiotics in the form of Zosyn. She is on Diflucan. The patient is seen today February 02, 2024 in follow-up on the regular medical floor. She is awake and alert in no acute distress. Currently sitting up in a chair at the bedside. Denies any worsening shortness of breath, cough or congestion. She is maintaining O2 saturations in the 90s on 2 L/min per nasal cannula. She is feeling a bit better today compared to yesterday. Glucose 242. She remains on DuoNeb ventilations, Pulmicort and performing scintillations, Singulair, IV Solu-Medrol. NicoDerm patch in place. Continued on Zosyn. Currently on voriconazole for the Sarah in the urine. Being followed by infectious disease. The patient is seen today February 03, 2024 in follow-up on the regular medical floor. She is currently awake and alert in no acute distress. She is maintaining good O2 saturation in the 90s on 3 L/min per nasal cannula. She is afebrile. Hemodynamically stable. Her main complaints today are lower leg pain and buttocks pain from sacral decubitus ulcer and her previous falls. Bone scan rev ealed multiple areas of abnormal uptake could be on the basis of prior trauma. Abnormal uptake involving the sacrum and pubic rami possibly posttraumatic. Areas of linear uptake involving the lower thoracic and lumbar spine possibly related to compression fractures. White count 21.6. Hemoglobin 12.5. Platelets 474. Sodium 139. Potassium 3.7. Bicarb 26. BUN 26. Creatinine 0.4. Glucose 165. She remains on DuoNeb ventilations, Pulmicort and Perforomist inhalations, IV Solu-Medrol and Singulair. NicoDerm patch in place. Antibiotics in the form of Zosyn. Remains on voriconazole. The patient is seen today February 04, 2024 in follow-up on the regular medical floor. She is currently sitting up in bed. Awake and alert in no acute distress. She is feeling quite a bit better today. Less pain and discomfort. She denies any worsening shortness of breath, cough or congestion. She is maintaining O2 saturations in the 90s on 2 L/min per nasal cannula. She has been afebrile. Hemodynamically stable. Glucose 252. She remains on bronchodilators, Singulair and Solu-Medrol. NicoDerm patch in place. Antibiotics in the form of Zosyn. Remains on voriconazole. Patient was reevaluated today on 02/05/2024, patient is doing great, asymptomatic, she has no active pulmonary symptoms, patient is being considered for possible discharge to rehab today. And I think that is very appropriate. Patient was reevaluated today on 02/06/2024, patient is doing great, she was supposed to be discharged to [facility] yesterday, however there was no bed available, and her discharge was delayed. Patient has no active pulmonary symptoms, I will still clear the patient for discharge once a bed is available even if available today for The patient was seen today February 07, 2024 in follow-up on the regular medical floor. She is currently sitting up in bed. Awake and alert in no acute distress. Maintaining good O2 saturations in the 90s on 3 L/min per nasal cannula. Normal saline at KVO. Glucose 188. She is continued on DuoNeb ventilations, Pulmicort and Perforomist inhalations, Singulair, prednisone taper. Remains on Zosyn and voriconazole. The patient is seen today February 08, 2024 in follow-up on the regular medical floor. She is currently sitting up in bed. Awake and alert in no acute distress. She is maintaining O2 saturations in the 90s on 3 L/min per nasal cannula. She has normal saline at KVO. Denies any chest pain. No worsening shortness of breath, cough or congestion. She is continued on Symbicort, Singulair and DuoNeb inhalations. Remains on Zosyn. NicoDerm patch in place. White count 25.3. Hemoglobin 13.8. Platelets 394. Sodium 139. Potassium 4.6. Bicarb 26. BUN 23. Creatinine 0.4. Glucose 98. The patient is seen today February 09, 2024 in follow-up on the regular medical floor. She is awake and alert in no acute distress. Resting comfortably in bed. Maintaining O2 saturations in the 90s on 3 L/min per nasal cannula. No IV fluids. Follow-up chest x-ray reveals similar elevated right diaphragm. No pleural effusion, consolidation or pneumothorax. White count 23.1. Hemoglobin 13.4. Platelets 357. Sodium 138. Potassium 4.2. Bicarb 25. BUN 18. Creatinine 0.4. Glucose 241. Remains on voriconazole. Continued on bronchodilators. Continued on a prednisone taper. NicoDerm patch in place. The patient is seen today February 10, 2024 in follow-up on the regular medical floor. She is sitting up in bed. Awake and alert in no acute distress. He is maintaining good O2 saturations in the 90s on 3 L/min per nasal cannula. She has been afebrile. Hemodynamically stable. Follow-up urine culture revealed no growth glucose 147. She remains on DuoNeb inhalations, Symbicort, prednisone taper and Singulair. She remains on voriconazole. NicoDerm patch in place. The patient is seen today February 11, 2024 in follow-up on the regular medical floor. She is currently resting comfortably in bed. Awake and alert in no acute distress. She is maintaining good O2 saturations in the 90s on 2 L/min per nasal cannula. No IV fluids. 2.5. Hemoglobin 13.0. Platelets 346. Sodium 139. Potassium 4.1. Bicarb 28. BUN 19. Creatinine 0.3. Glucose 62. Remains on Symbicort, DuoNeb ventilations, prednisone taper, Singulair. NicoDerm patch in place. She remains on voriconazole. Objective - Vital Signs Vital signs: Vital Signs Temp 98.2 F 02/11/24 07:10 Pulse 90 02/11/24 08:25 Resp 18 02/11/24 07:10 BP 121/73 02/11/24 07:10 Pulse Ox 96 02/11/24 07:10 FiO2 Intake & Output 02/10/24 02/11/24 02/11/24 18:59 06:59 18:59 Intake Total 1250 Output Total 900 Balance 1250 -900 Weight 47.627 kg Intake: Oral 1250 Output: Urine 900 Other: Voiding Method Indwelling Catheter - Exam GENERAL EXAM: Alert, pleasant 63-year-old female, resting in bed, on 3 L nasal cannula, in no distress. HEAD: Normocephalic. EYES: Normal reaction of pupils, equal size. NOSE: Clear with pink turbinates. THROAT: No erythema or exudates. NECK: No masses, no JVD. CHEST: No chest wall deformity. LUNGS: Equal air entry with bilateral end expiratory wheeze, diminished. CVS: S1 and S2 normal with no audible murmur, regular rhythm. ABDOMEN: No hepatosplenomegaly, normal bowel sounds, no guarding or rigidity. SPINE: No scoliosis or deformity SKIN: No rashes. Stage II sacral decubitus ulcer CENTRAL NERVOUS SYSTEM: No focal deficits, tone is normal in all 4 extremities. EXTREMITIES: There is no peripheral edema. No clubbing, no cyanosis. Peripheral pulses are intact. - Labs CBC & Chem 7: 02/11/24 06:23 02/11/24 06:23 Labs: Abnormal Lab Results - Last 24 Hours (Table) 02/10/24 02/10/24 02/11/24 Range/Units 16:33 21:30 02:33 WBC (4.50-10.00) X 10*3/uL RBC (4.10-5.20) X 10*6/uL MCV (80.0-97.0) FL MCH (27.0-32.0) pg Immature Gran # (0.00-0.04) X 10*3/uL Neutrophils # (1.80-7.70) X 10*3/uL Eosinophils # (0.04-0.35) X 10*3/uL Creatinine (0.6-1.5) mg/dL BUN/Creatinine Ratio (12.00-20.00) Ratio Glucose (70-110) mg/dL POC Glucose (mg/dL) 245 H 268 H 243 H (70-110) mg/dL Calcium (8.7-10.3) mg/dL Total Bilirubin (0.3-1.2) mg/dL Alkaline Phosphatase (41-126) U/L Total Protein (6.2-8.2) g/dL Albumin (3.8-4.9) g/dL 02/11/24 02/11/24 02/11/24 Range/Units 06:23 06:23 11:24 WBC 32.58 H (4.50-10.00) X 10*3/uL RBC 4.04 L (4.10-5.20) X 10*6/uL MCV 99.3 H (80.0-97.0) FL MCH 32.2 H (27.0-32.0) pg Immature Gran # 0.34 H (0.00-0.04) X 10*3/uL Neutrophils # 30.32 H (1.80-7.70) X 10*3/uL Eosinophils # 0.01 L (0.04-0.35) X 10*3/uL Creatinine 0.3 L (0.6-1.5) mg/dL BUN/Creatinine Ratio 62.00 H (12.00-20.00) Ratio Glucose 62 L (70-110) mg/dL POC Glucose (mg/dL) 151 H (70-110) mg/dL Calcium 8.4 L (8.7-10.3) mg/dL Total Bilirubin 0.2 L (0.3-1.2) mg/dL Alkaline Phosphatase 227 H (41-126) U/L Total Protein 4.6 L (6.2-8.2) g/dL Albumin 2.9 L (3.8-4.9) g/dL Assessment and Plan Assessment: Acute hypoxic respiratory failure suspect secondary to aspiration pneumonia, currently on 3 L of oxygen by nasal cannula. CTA of the chest shows no evidence of any pulmonary embolism. Extensive atelectatic changes in lung base bi laterally right more than left with small pleural effusions. Consider aspiration. Completed Zosyn. Follow-up chest x-ray reveals similar elevated right hemidiaphragm. No pleural effusion, consolidation or pneumothorax. Acute exacerbation of COPD Chronic and ongoing tobacco dependence Diabetes mellitus type 2 Hypertension Hyperlipidemia Depression Chronic urinary retention maintained on a chronic indwelling Horn catheter. Culture positive for Sarah. Currently on voriconazole Weight loss, unexplained Compression fracture of the spine Stage II sacral decub ulcer Significant debility and impaired performance and functional status and the patient is currently unable to ambulate and she has been essentially chair/bedbound for the past month or so Frequent falls, hospitalized at [facility] Plan: The patient was seen and evaluated Medications and labs reviewed Remains on voriconazole per ID service Continue bronchodilators, prednisone taper Cleared for discharge from the pulmonary standpoint I have personally seen and examined the patient, performed the documentation and the assessment and plan as written. Number of minutes spent on the visit: 10.
[2024-02-11] MEDS: IOPAMIDOL CONTRAST (ORAL USE) VIAL PO PRN (14:41)
[2024-02-11] MEDS: VANCOMYCIN 125 MG CAPSULE PO SCH (14:43)
--- NOTE | 2024-02-11 15:59 | P.PN ---
Subjective Progress Note Date: 02/11/24 Principal diagnosis: Reason for follow-up is UTI question of pneumonia and a sacral pressure ulcer Patient is a 63-year-old female with a past medical history significan t for diabetes mellitus hypertension hyperlipidemia COPD current everyday smoker, recent multiple admission to the [facility] for UTI followed with the compression fracture of the spine and hypoglycemia has been brought in to [facility] for evaluation of increasing shortness of breath did have abnormal CT angiogram of the chest concerning for effusion atelectasis positive UA concerning for UTI and the patient also have a sacral pressure ulcer. On today's evaluation that is 02/11/2024, Patient is afebrile patient is currently on 2 L nasal oxygen and denies having any shortness of breath, the patient denies any chest pain or cough, the patient denies any nausea vomiting did not have any abdominal pain and no diarrhea rather patient has no bowel movement for the last 4 days per the nursing staff. Patient white count is appropriate 2.58 creatinine 0.3 Objective - Vital Signs Vital signs: Vital Signs Temp 98.2 F 02/11/24 07:10 Pulse 90 02/11/24 12:08 Resp 18 02/11/24 07:10 BP 121/73 02/11/24 07:10 Pulse Ox 96 02/11/24 07:10 FiO2 Intake & Output 02/10/24 02/11/24 02/11/24 18:59 06:59 18:59 Intake Total 1250 Output Total 900 Balance 1250 -900 Weight 47.627 kg Intake: Oral 1250 Output: Urine 900 Other: Voiding Method Indwelling Catheter Indwelling Catheter - Exam GENERAL DESCRIPTION: Middle-aged female lying in bed in no distress RESPIRATORY SYSTEM: Unlabored breathing , decreased breath sounds at bases HEART: S1 S2 regular rate and rhythm , ABDOMEN: Soft , no tenderness EXTREMITIES: No edema feet - Labs CBC & Chem 7: 02/11/24 06:23 02/11/24 06:23 Labs: Abnormal Lab Results - Last 24 Hours (Table) 02/10/24 02/10/24 02/11/24 Range/Units 16:33 21:30 02:33 WBC (4.50-10.00) X 10*3/uL RBC (4.10-5.20) X 10*6/uL MCV (80.0-97.0) FL MCH (27.0-32.0) pg Immature Gran # (0.00-0.04) X 10*3/uL Neutrophils # (1.80-7.70) X 10*3/uL Eosinophils # (0.04-0.35) X 10*3/uL Creatinine (0.6-1.5) mg/dL BUN/Creatinine Ratio (12.00-20.00) Ratio Glucose (70-110) mg/dL POC Glucose (mg/dL) 245 H 268 H 243 H (70-110) mg/dL Calcium (8.7-10.3) mg/dL Total Bilirubin (0.3-1.2) mg/dL Alkaline Phosphatase (41-126) U/L Total Protein (6.2-8.2) g/dL Albumin (3.8-4.9) g/dL 02/11/24 02/11/24 02/11/24 Range/Units 06:23 06:23 11:24 WBC 32.58 H (4.50-10.00) X 10*3/uL RBC 4.04 L (4.10-5.20) X 10*6/uL MCV 99.3 H (80.0-97.0) FL MCH 32.2 H (27.0-32.0) pg Immature Gran # 0.34 H (0.00-0.04) X 10*3/uL Neutrophils # 30.32 H (1.80-7.70) X 10*3/uL Eosinophils # 0.01 L (0.04-0.35) X 10*3/uL Creatinine 0.3 L (0.6-1.5) mg/dL BUN/Creatinine Ratio 62.00 H (12.00-20.00) Ratio Glucose 62 L (70-110) mg/dL POC Glucose (mg/dL) 151 H (70-110) mg/dL Calcium 8.4 L (8.7-10.3) mg/dL Total Bilirubin 0.2 L (0.3-1.2) mg/dL Alkaline Phosphatase 227 H (41-126) U/L Total Protein 4.6 L (6.2-8.2) g/dL Albumin 2.9 L (3.8-4.9) g/dL Assessment and Plan (1) Stage III pressure ulcer of sacral region Current Visit: Yes Status: Acute Code(s): L89.153 - PRESSURE ULCER OF SACRAL REGION, STAGE 3 SNOMED Code(s): 74763820212931 (2) Urinary tract infection Current Visit: Yes Status: Acute Code(s): N39.0 - URINARY TRACT INFECTION, SITE NOT SPECIFIED SNOMED Code(s): 39641485 (3) Aspiration pneumonia Current Visit: Yes Status: Acute Code(s): J69.0 - PNEUMONITIS DUE TO INHALATION OF FOOD AND VOMIT SNOMED Code(s): 262195460 Plan: 1patient presented to hospital with increasing shortness of breath which is likely multifactorial with a possible component of pneumonia likely gram- negative as the patient has been in the hospital versus aspiration etiology 2-patient also has significantly positive despite changing Horn catheter likely component of cath versus UTI likely from enteric gram-negative 3-patient did have a stage III sacral pressure ulcer with slough tissue but no cellulitis local wound care with Medihoney followed by moist dressing and frequent change of position 4-patient urine cultures growing Sarah not albicans patient has received adequate treatment with voriconazole, which will be discontinued 5-patient with worsening of the white count no bowel movement for the last 4 to 5 days question of abdominal source we will check a CT abdominal pelvis check a blood culture empirically add Zosyn and monitor clinical course closely Dictation was produced using [employer] dictation software. please excuse any grammatical, word or spelling errors.
--- NOTE | 2024-02-11 16:28 | CT ---
EXAMINATION TYPE: CT abdomen pelvis wo con CT DLP: 460.6 mGycm, Automated exposure control for dose reduction was used. DATE OF EXAM: 02/11/2024 4:04 PM COMPARISON: None CLINICAL INDICATION:Female, 63 years old with history of Leukocytosis/colitis; Leukocytosis/colitis TECHNIQUE: Axial CT abdomen pelvis wo con;Sagittal and coronal reformats were created on a separate workstation. Contrast used: mL of , (none if empty) Oral contrast used: with Oral Contrast (none if empty) FINDINGS: LOWER CHEST: Trace bilateral pleural effusions with atelectasis of the right lung base.. ABDOMEN LIVER: Unremarkable GALLBLADDER AND BILE DUCTS: Unremarkable. PANCREAS: Unremarkable. SPLEEN: Unremarkable. ADRENAL GLANDS: Unremarkable. KIDNEYS AND URETERS: No evidence of hydronephrosis or renal calculus. The ureters are unremarkable. PELVIS BLADDER: Horn catheter is in place. REPRODUCTIVE: Unremarkable. ABDOMEN & PELVIS STOMACH AND BOWEL: No evidence of bowel obstruction. Large amount of stool throughout the colon with 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 up to 8.5 cm in transverse dimension. Anasarca limits evaluation of the abdominal contents PERITONEUM/RETROPERITONEUM: No evidence of pneumoperitoneum or free fluid. VASCULATURE: Mild atherosclerotic calcifications are present throughout the abdominal aorta and its b ranches. No evidence of aortic aneurysm. MUSCULOSKELETAL: Indeterminate fractures of the right superior and inferior pubic rami. There is more remote appearing fracture of the left inferior pubic ramus. LYMPH NODES: No gross evidence for lymphadenopathy. SOFT TISSUE/ABDOMINAL WALL: Diffuse anasarca of the soft tissues. IMPRESSION: 1. Large stool burden throughout the colon with 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. Fecal disimpaction rec ommended for the prevention of stercoral colitis. 2. Age-indeterminate fracture of the right superior and inferior pubic rami. Remote appearing fractu re of the left inferior pubic ramus and right 3. Trace right pleural effusion with atelectasis of the lung base. 4. Atelectasis of the right inferior and middle lungs unclear etiology consider bronchoscopy.
[2024-02-11] MEDS: PIPERACILLIN-TAZOBACTAM 3.375 GM in SODIUM CHLORIDE 0.9% 100 ML IVPB SCH (16:31)
[2024-02-11 16:43] LABS: Glucose,Whole Blood 318 mg/dL (70-110)
[2024-02-11 20:08] LABS: Glucose,Whole Blood 328 mg/dL (70-110)
[2024-02-11] MEDS: INSULIN DETEMIR (LEVEMIR) 100 UNIT/ML SYR SQ SCH (21:08)
--- NOTE | 2024-02-12 02:22 | PN ---
PROGRESS NOTE SUBJECTIVE: White count is now up to 32,000, neutrophils 30,000. Repeat abdominal pelvis CT is being ordered. The home is sending her to rehab center at this time as she has severe leukocytosis, unclear etiology. OBJECTIVE: VITAL SIGNS: Blood pressure is 121/73, pulse ox 96, temp 98, pulse 90, respiratory rate 16 to 18. HEART: S1, S2. ABDOMEN: Soft. EXTREMITIES: No edema. She has stage 2 sacral ulcer, UTI, aspiration pneumonia. Unclear why her white count keeps going up. Abdominal source possible. CAT scan of abdomen and pelvis. Check a blood culture, Zosyn. Monitor closely. Prognosis guarded. MMODL / IJN: [id number] /
[2024-02-12 06:29] LABS: Glucose,Whole Blood 140 mg/dL (70-110)
[2024-02-12 06:54] LABS: Glucose,Whole Blood 122 mg/dL (70-110)
[2024-02-12 09:36] LABS: Basophils # (A) 0.06 X 10*3/uL (0.00-0.10); Basophils % (A) 0.2 %; Eosinophils # (A) 0 X 10*3/uL (0.04-0.35); Eosinophils % (A) 0 %; HCT 38.8 % (37.2-46.3); HGB 12.6 g/dL (12.0-15.0); Lymphocytes # (A) 0.61 X 10*3/uL (0.90-5.00); Lymphocytes % (A) 1.9 %; MCH 32.2 pg (27.0-32.0); MCHC 32.5 g/dL (32.0-37.0); MCV 99.2 FL (80.0-97.0); Mean Platelet Volume 10.1 FL (9.5-12.2); Monocytes # (A) 0.67 X 10*3/uL (0.20-1.00); Monocytes % (A) 2.1 %; NRBC Per 100 WBC 0 X 10*3/uL (0.00-0.01); Neutrophils # (A) 29.65 X 10*3/uL (1.80-7.70); Neutrophils % (A) 94.8 %; Platelet Count 341 X 10*3/uL (140-440); RBC 3.91 X 10*6/uL (4.10-5.20); RDW 13.8 % (11.5-14.5); WBC 31.29 X 10*3/uL (4.50-10.00)
[2024-02-12 10:17] LABS: ALT 21 U/L (8-44); AST 16 U/L (13-35); Albumin 3.1 g/dL (3.8-4.9); Albumin/Globulin Ratio 1.72 Ratio (1.60-3.17); Alkaline Phosphatase 236 U/L (41-126); Blood Urea Nitrogen 18.2 mg/dL (9.0-27.0); Calcium 8.5 mg/dL (8.7-10.3); Chloride 102 mmol/L (96-109); Globulin 1.8 g/dL (1.6-3.3); Glucose 126 mg/dL (70-110); Potassium 4.5 mmol/L (3.5-5.5); Sodium 138 mmol/L (135-145); Total Bilirubin 0.3 mg/dL (0.3-1.2); Total Protein 4.9 g/dL (6.2-8.2)
[2024-02-12 11:28] LABS: Glucose,Whole Blood 258 mg/dL (70-110)
[2024-02-12] MEDS: LACTULOSE 20 GM/30 ML CUP PO SCH (12:25)
--- NOTE | 2024-02-12 12:29 | P.PN ---
Subjective Progress Note Date: 02/12/24 On 01/30/2024, the patient is being seen for shortness of breath. She is known to have COPD and diabetes mellitus and she is a chronic smoker. She has a chronic indwelling Horn catheter patient with a recent hospitalization at [facility]. She presented to us with worsening shortness of breath. The white cell count was 11 with a hemoglobin 13.2 and a platelet count of 542, normal electrolytes, normal renal function, UA was abnormal with many WBCs and budding yeast and a white cell count of 182. The patient is currently afebrile. The patient is hemodynamically stable and she is hypoxic currently 90s of oxygen by nasal cannula. Chest x-ray was done emergency department that showed moderate-sized right-sided pleural effusion. CT of the chest was also done which showed very limited effusion in the lung bases. The patient had significant atelectatic changes in the lower lobes bilaterally. No airspace disease or consolidation. No evidence of any pulmonary embolism. No evidence of any filling defects. Accordingly, the patient was hospitalized. She was started on Diflucan 20 mg p.o. daily. She was started on IV Zosyn and a pulmonary consultation was requested. Upon further questioning, it seems that the patient's health has been deteriorating over the past 1 year. The patient has lost considerable mount of weight. She has had issues with oropharyngeal thrush and she has not been able to take oral intake adequately and she has been meeting her caloric requirements. Such, the patient has not more than 50 pounds of weight. She had developed compression fractures. She has been feeling weak. Over the past 2 to 3 weeks, she has become essentially nonambulatory. As far as the Horn catheter, she claims that she has had urinary retention and the physicians at [facility] opted to keep the Horn catheter in place. The patient has been Bound/bedbound. She has developed a sacral decubitus ulcer stage II. She is weak, cachectic, malnourished, and remains debilitated at this point. The boyfriend was unable to take care of her at home. The visiting nurse made a recommendation for her to come into the hospital. She is a chronic smoker. She has COPD. Maintained on Symbicort. No home O2. The patient is seen today January 31, 2024 in follow-up on the regular medical floor. She is currently resting in bed. Awake and alert in no acute distress. She appears quite weak and debilitated. She states she had been falling at home and has fractures in her spine. She had been at [facility] recently. Currently feeling a bit better today compared to yesterday. She has a loose nonproductive cough. She is maintaining O2 saturations in the 90s on 2 L/min per nasal cannula. She remains on Zosyn. Glucose 201. Troponin negative x 2. She is continued on DuoNeb inhalations, Pulmicort and Perforomist inhalations, IV Solu-Medrol. NicoDerm patch in place. The patient is seen today February 01, 2024 and follow-up on the regular medical floor. She is currently sitting about a chair. She is awake and alert. She is quite uncomfortable. She states she hurts everywhere. Mainly from her previous falls. She is being maintained on Percocet alternating with Dilaudid. She is maintaining O2 saturations in the 90s on 2 L nasal cannula. Urine culture reveals Sarah. White count 29.1. Hemoglobin 13.9. Platelets 645. Sodium 142. Potassium 4.0. Bicarb 27. BUN 22. Creatinine 0.3. Glucose 78. She remains on DuoNeb inhalations, Pulmicort and Perforomist inhalations, Solu- Medrol and Singulair. NicoDerm patch is in place. She is on antibiotics in the form of Zosyn. She is on Diflucan. The patient is seen today February 02, 2024 in follow-up on the regular medical floor. She is awake and alert in no acute distress. Currently sitting up in a chair at the bedside. Denies any worsening shortness of breath, cough or congestion. She is maintaining O2 saturations in the 90s on 2 L/min per nasal cannula. She is feeling a bit better today compared to yesterday. Glucose 242. She remains on DuoNeb ventilations, Pulmicort and performing scintillations, Singulair, IV Solu-Medrol. NicoDerm patch in place. Continued on Zosyn. Currently on voriconazole for the Sarah in the urine. Being followed by infectious disease. The patient is seen today February 03, 2024 in follow-up on the regular medical floor. She is currently awake and alert in no acute distress. She is maintaining good O2 saturation in the 90s on 3 L/min per nasal cannula. She is afebrile. Hemodynamically stable. Her main complaints today are lower leg pain and buttocks pain from sacral decubitus ulcer and her previous falls. Bone scan rev ealed multiple areas of abnormal uptake could be on the basis of prior trauma. Abnormal uptake involving the sacrum and pubic rami possibly posttraumatic. Areas of linear uptake involving the lower thoracic and lumbar spine possibly related to compression fractures. White count 21.6. Hemoglobin 12.5. Platelets 474. Sodium 139. Potassium 3.7. Bicarb 26. BUN 26. Creatinine 0.4. Glucose 165. She remains on DuoNeb ventilations, Pulmicort and Perforomist inhalations, IV Solu-Medrol and Singulair. NicoDerm patch in place. Antibiotics in the form of Zosyn. Remains on voriconazole. The patient is seen today February 04, 2024 in follow-up on the regular medical floor. She is currently sitting up in bed. Awake and alert in no acute distress. She is feeling quite a bit better today. Less pain and discomfort. She denies any worsening shortness of breath, cough or congestion. She is maintaining O2 saturations in the 90s on 2 L/min per nasal cannula. She has been afebrile. Hemodynamically stable. Glucose 252. She remains on bronchodilators, Singulair and Solu-Medrol. NicoDerm patch in place. Antibiotics in the form of Zosyn. Remains on voriconazole. Patient was reevaluated today on 02/05/2024, patient is doing great, asymptomatic, she has no active pulmonary symptoms, patient is being considered for possible discharge to rehab today. And I think that is very appropriate. Patient was reevaluated today on 02/06/2024, patient is doing great, she was supposed to be discharged to longterm yesterday, however there was no bed available, and her discharge was delayed. Patient has no active pulmonary symptoms, I will still clear the patient for discharge once a bed is available even if available today for The patient was seen today February 07, 2024 in follow-up on the regular medical floor. She is currently sitting up in bed. Awake and alert in no acute distress. Maintaining good O2 saturations in the 90s on 3 L/min per nasal cannula. Normal saline at KVO. Glucose 188. She is continued on DuoNeb ventilations, Pulmicort and Perforomist inhalations, Singulair, prednisone taper. Remains on Zosyn and voriconazole. The patient is seen today February 08, 2024 in follow-up on the regular medical floor. She is currently sitting up in bed. Awake and alert in no acute distress. She is maintaining O2 saturations in the 90s on 3 L/min per nasal cannula. She has normal saline at KVO. Denies any chest pain. No worsening shortness of breath, cough or congestion. She is continued on Symbicort, Singulair and DuoNeb inhalations. Remains on Zosyn. NicoDerm patch in place. White count 25.3. Hemoglobin 13.8. Platelets 394. Sodium 139. Potassium 4.6. Bicarb 26. BUN 23. Creatinine 0.4. Glucose 98. The patient is seen today February 09, 2024 in follow-up on the regular medical floor. She is awake and alert in no acute distress. Resting comfortably in bed. Maintaining O2 saturations in the 90s on 3 L/min per nasal cannula. No IV fluids. Follow-up chest x-ray reveals similar elevated right diaphragm. No pleural effusion, consolidation or pneumothorax. White count 23.1. Hemoglobin 13.4. Platelets 357. Sodium 138. Potassium 4.2. Bicarb 25. BUN 18. Creatinine 0.4. Glucose 241. Remains on voriconazole. Continued on bronchodilators. Continued on a prednisone taper. NicoDerm patch in place. The patient is seen today February 10, 2024 in follow-up on the regular medical floor. She is sitting up in bed. Awake and alert in no acute distress. He is maintaining good O2 saturations in the 90s on 3 L/min per nasal cannula. She has been afebrile. Hemodynamically stable. Follow-up urine culture revealed no growth glucose 147. She remains on DuoNeb inhalations, Symbicort, prednisone taper and Singulair. She remains on voriconazole. NicoDerm patch in place. The patient is seen today February 11, 2024 in follow-up on the regular medical floor. She is currently resting comfortably in bed. Awake and alert in no acute distress. She is maintaining good O2 saturations in the 90s on 2 L/min per nasal cannula. No IV fluids. 2.5. Hemoglobin 13.0. Platelets 346. Sodium 139. Potassium 4.1. Bicarb 28. BUN 19. Creatinine 0.3. Glucose 62. Remains on Symbicort, DuoNeb ventilations, prednisone taper, Singulair. NicoDerm patch in place. She remains on voriconazole. The patient is seen today February 12, 2024 in follow-up on the regular medical floor. She is awake and alert in no acute distress. She is currently requiring 5 L high flow nasal cannula to maintain O2 saturation in the 90s. CT scan of the abdomen and pelvis revealed large stool burden throughout the colon with 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. Age-indeterminate fracture of the right superior and inferior pubic rami. Trace right pleural effusion with atelectasis of the lung base. Follow-up urine culture revealed no growth. White count 31.2. Hemoglobin 12.6. Platelets 341. Sodium 138. Potassium 4.5. Bicarb 28. BUN 18. Creatinine 0.4. Glucose 126. She is continued on DuoNeb ventilations, Symbicort, Singulair and prednisone taper. Restarted on Zosyn per ID services. Objective - Vital Signs Vital signs: Vital Signs Temp 98.1 F 02/12/24 08:00 Pulse 96 02/12/24 12:00 Resp 19 02/12/24 08:00 BP 135/64 02/12/24 08:00 Pulse Ox 92 L 02/12/24 08:02 FiO2 Intake & Output 02/11/24 02/12/24 02/12/24 18:59 06:59 18:59 Intake Total 250 Balance 250 Intake: Oral 250 Other: Voiding Method Indwelling Catheter Indwelling Catheter Indwelling Catheter - Exam GENERAL EXAM: Alert, 63-year-old female, appears older than stated age, on 3 L nasal cannula, in no distress. HEAD: Normocephalic. EYES: Normal reaction of pupils, equal size. NOSE: Clear with pink turbinates. THROAT: No erythema or exudates. NECK: No masses, no JVD. CHEST: No chest wall deformity. LUNGS: Equal air entry with bilateral end expiratory wheeze, diminished. CVS: S1 and S2 normal with no audible murmur, regular rhythm. ABDOMEN: No hepatosplenomegaly, normal bowel sounds, no guarding or rigidity. SPINE: No scoliosis or deformity SKIN: No rashes. Stage II sacral decubitus ulcer CENTRAL NERVOUS SYSTEM: No focal deficits, tone is normal in all 4 extremities. EXTREMITIES: There is no peripheral edema. No clubbing, no cyanosis. Peripheral pulses are intact. - Labs CBC & Chem 7: 02/12/24 05:32 02/12/24 05:32 Labs: Abnormal Lab Results - Last 24 Hours (Table) 02/11/24 02/11/24 02/11/24 Range/Units 14:16 14:16 16:42 WBC (4.50-10.00) X 10*3/uL RBC (4.10-5.20) X 10*6/uL MCV (80.0-97.0) FL MCH (27.0-32.0) pg Immature Gran # (0.00-0.04) X 10*3/uL Neutrophils # (1.80-7.70) X 10*3/uL Lymphocytes # (0.90-5.00) X 10*3/uL Eosinophils # (0.04-0.35) X 10*3/uL Creatinine (0.6-1.5) mg/dL BUN/Creatinine Ratio (12.00-20.00) Ratio Glucose (70-110) mg/dL POC Glucose (mg/dL) 318 H (70-110) mg/dL Calcium (8.7-10.3) mg/dL Alkaline Phosphatase (41-126) U/L C-Reactive Protein 2.6 H (<1.0) mg/dL Total Protein (6.2-8.2) g/dL Albumin (3.8-4.9) g/dL Procalcitonin 0.10 H (0.02-0.09) ng/mL 02/11/24 02/12/24 02/12/24 Range/Units 20:06 05:32 05:32 WBC 31.29 H (4.50-10.00) X 10*3/uL RBC 3.91 L (4.10-5.20) X 10*6/uL MCV 99.2 H (80.0-97.0) FL MCH 32.2 H (27.0-32.0) pg Immature Gran # 0.30 H (0.00-0.04) X 10*3/uL Neutrophils # 29.65 H (1.80-7.70) X 10*3/uL Lymphocytes # 0.61 L (0.90-5.00) X 10*3/uL Eosinophils # 0 L (0.04-0.35) X 10*3/uL Creatinine 0.4 L (0.6-1.5) mg/dL BUN/Creatinine Ratio 45.50 H (12.00-20.00) Ratio Glucose 126 H (70-110) mg/dL POC Glucose (mg/dL) 328 H (70-110) mg/dL Calcium 8.5 L (8.7-10.3) mg/dL Alkaline Phosphatase 236 H (41-126) U/L C-Reactive Protein (<1.0) mg/dL Total Protein 4.9 L (6.2-8.2) g/dL Albumin 3.1 L (3.8-4.9) g/dL Procalcitonin (0.02-0.09) ng/mL 02/12/24 02/12/24 02/12/24 Range/Units 06:17 06:52 11:27 WBC (4.50-10.00) X 10*3/uL RBC (4.10-5.20) X 10*6/uL MCV (80.0-97.0) FL MCH (27.0-32.0) pg Immature Gran # (0.00-0.04) X 10*3/uL Neutrophils # (1.80-7.70) X 10*3/uL Lymphocytes # (0.90-5.00) X 10*3/uL Eosinophils # (0.04-0.35) X 10*3/uL Creatinine (0.6-1.5) mg/dL BUN/Creatinine Ratio (12.00-20.00) Ratio Glucose (70-110) mg/dL POC Glucose (mg/dL) 140 H 122 H 258 H (70-110) mg/dL Calcium (8.7-10.3) mg/dL Alkaline Phosphatase (41-126) U/L C-Reactive Protein (<1.0) mg/dL Total Protein (6.2-8.2) g/dL Albumin (3.8-4.9) g/dL Procalcitonin (0.02-0.09) ng/mL Assessment and Plan Assessment: Acute hypoxic respiratory failure suspect secondary to aspiration pneumonia, currently on 3 L of oxygen by nasal cannula. CTA of the chest shows no evidence of any pulmonary embolism. Extensive atelectatic changes in lung base bilaterally right more than left with small pleural effusions. Consider aspiration. Completed Zosyn. Follow-up chest x-ray reveals similar elevated right hemidiaphragm. No pleural effusion, consolidation or pneumothorax. Leukocytosis, back on Zosyn per ID service Acute exacerbation of COPD Chronic and ongoing tobacco dependence Diabetes mellitus type 2 Hypertension Hyperlipidemia Depression Chronic urinary retention maintained on a chronic indwelling Horn catheter. Culture positive for Sarah. Currently on voriconazole Weight loss, unexplained Compression fracture of the spine Stage II sacral decub ulcer Significant debility and impaired performance and functional status and the patient is currently unable to ambulate and she has been essentially chair/bedbound for the past month or so Frequent falls, hospitalized at [facility] Plan: The patient was seen and evaluated CT scan of the abdomen, medications and labs reviewed Remains on Zosyn per ID service Continue bronchodilators, prednisone taper I have personally seen and examined the patient, performed the documentation and the assessment and plan as written. Number of minutes spent on the visit: 10.
[2024-02-12 17:01] LABS: Glucose,Whole Blood 308 mg/dL (70-110)
[2024-02-12 19:45] LABS: Glucose,Whole Blood 317 mg/dL (70-110)
[2024-02-13 05:19] LABS: Glucose,Whole Blood 55 mg/dL (70-110)
[2024-02-13 05:46] LABS: Glucose,Whole Blood 57 mg/dL (70-110)
[2024-02-13] MEDS: DEXTROSE 50% SYRINGE 50 ML IVP STA (05:58)
[2024-02-13 06:28] LABS: Glucose,Whole Blood 94 mg/dL (70-110)
[2024-02-13] MEDS ORDERED: DEXTROSE 50% SYRINGE 50 ML IVP PRN (07:16)
--- NOTE | 2024-02-13 07:35 | P.PN ---
Subjective Progress Note Date: 02/13/24 Principal diagnosis: Shortness of breath. On 01/30/2024, the patient is being seen for shortness of breath. She is known to have COPD and diabetes mellitus and she is a chronic smoker. She has a chronic indwelling Horn catheter patient with a recent hospitalization at [facility]. She presented to us with worsening shortness of breath. The white cell count was 11 with a hemoglobin 13.2 and a platelet count of 542, normal electrolytes, normal renal function, UA was abnormal with many WBCs and budding yeast and a white cell count of 182. The patient is currently afebrile. The patient is hemodynamically stable and she is hypoxic currently 90s of oxygen by nasal cannula. Chest x-ray was done emergency department that showed moderate-sized right-sided pleural effusion. CT of the chest was also done which showed very limited effusion in the lung bases. The patient had significant atelectatic changes in the lower lobes bilaterally. No airspace disease or consolidation. No evidence of any pulmonary embolism. No evidence of any filling defects. Accordingly, the patient was hospitalized. She was started on Diflucan 20 mg p.o. daily. She was started on IV Zosyn and a pulmonary consultation was requested. Upon further questioning, it seems that the patient's health has been deteriorating over the past 1 year. The patient has lost considerable mount of weight. She has had issues with oropharyngeal thrush and she has not been able to take oral intake adequately and she has been meeting her caloric requirements. Such, the patient has not more than 50 pounds of weight. She had developed compression fractures. She has been feeling weak. Over the past 2 to 3 weeks, she has become essentially nonambulatory. As far as the Horn catheter, she claims that she has had urinary retention and the physicians at [facility] opted to keep the Horn catheter in place. The patient has been Bound/bedbound. She has developed a sacral decubitus ulcer stage II. She is weak, cachectic, malnourished, and remains debilitated at this point. The boyfriend was unable to take care of her at home. The visiting nurse made a recommendation for her to come into the hospital. She is a chronic smoker. She has COPD. Maintained on Symbicort. No home O2. The patient is seen today January 31, 2024 in follow-up on the regular medical floor. She is currently resting in bed. Awake and alert in no acute distress. She appears quite weak and debilitated. She states she had been falling at home and has fractures in her spine. She had been at [facility] recently. Currently feeling a bit better today compared to yesterday. She has a loose nonproductive cough. She is maintaining O2 saturations in the 90s on 2 L/min per nasal cannula. She remains on Zosyn. Glucose 201. Troponin negative x 2. She is continued on DuoNeb inhalations, Pulmicort and Perforomist inhalations, IV Solu-Medrol. NicoDerm patch in place. The patient is seen today February 01, 2024 and follow-up on the regular medical floor. She is currently sitting about a chair. She is awake and alert. She is quite uncomfortable. She states she hurts everywhere. Mainly from her previous falls. She is being maintained on Percocet alternating with Dilaudid. She is maintaining O2 saturations in the 90s on 2 L nasal cannula. Urine culture reveals Sarah. White count 29.1. Hemoglobin 13.9. Platelets 645. Sodium 142. Potassium 4.0. Bicarb 27. BUN 22. Creatinine 0.3. Glucose 78. She remains on DuoNeb inhalations, Pulmicort and Perforomist inhalations, Solu- Medrol and Singulair. NicoDerm patch is in place. She is on antibiotics in the form of Zosyn. She is on Diflucan. The patient is seen today February 02, 2024 in follow-up on the regular medical floor. She is awake and alert in no acute distress. Currently sitting up in a chair at the bedside. Denies any worsening shortness of breath, cough or congestion. She is maintaining O2 saturations in the 90s on 2 L/min per nasal cannula. She is feeling a bit better today compared to yesterday. Glucose 242. She remains on DuoNeb ventilations, Pulmicort and performing scintillations, Singulair, IV Solu-Medrol. NicoDerm patch in place. Continued on Zosyn. Currently on vori conazole for the Sarah in the urine. Being followed by infectious disease. The patient is seen today February 03, 2024 in follow-up on the regular medical floor. She is currently awake and alert in no acute distress. She is maintaining good O2 saturation in the 90s on 3 L/min per nasal cannula. She is afebrile. Hemodynamically stable. Her main complaints today are lower leg pain and buttocks pain from sacral decubitus ulcer and her previous falls. Bone scan revealed multiple areas of abnormal uptake could be on the basis of prior trauma. Abnormal uptake involving the sacrum and pubic rami possibly posttraumatic. Areas of linear uptake involving the lower thoracic and lumbar spine possibly related to compression fractures. White count 21.6. Hemoglobin 12.5. Platelets 474. Sodium 139. Potassium 3.7. Bicarb 26. BUN 26. Creatinine 0.4. Glucose 165. She remains on DuoNeb ventilations, Pulmicort and Perforomist inhalations, IV Solu-Medrol and Singulair. NicoDerm patch in place. Antibiotics in the form of Zosyn. Remains on voriconazole. The patient is seen today February 04, 2024 in follow-up on the regular medical floor. She is currently sitting up in bed. Awake and alert in no acute distress. She is feeling quite a bit better today. Less pain and discomfort. She denies any worsening shortness of breath, cough or congestion. She is maintaining O2 saturations in the 90s on 2 L/min per nasal cannula. She has been afebrile. Hemodynamically stable. Glucose 252. She remains on bronchodilators, Singulair and Solu-Medrol. NicoDerm patch in place. Antibiotics in the form of Zosyn. Remains on voriconazole. Patient was reevaluated today on 02/05/2024, patient is doing great, asymptomatic, she has no active pulmonary symptoms, patient is being considered for possible discharge to rehab today. And I think that is very appropriate. Patient was reevaluated today on 02/06/2024, patient is doing great, she was supposed to be discharged to [facility] yesterday, however there was no bed available, and her discharge was delayed. Patient has no active pulmonary symptoms, I will still clear the patient for discharge once a bed is available even if available today for The patient was seen today February 07, 2024 in follow-up on the regular medical floor. She is currently sitting up in bed. Awake and alert in no acute distress. Maintaining good O2 saturations in the 90s on 3 L/min per nasal cannula. Normal saline at KVO. Glucose 188. She is continued on DuoNeb ventilations, Pulmicort and Perforomist inhalations, Singulair, prednisone taper. Remains on Zosyn and voriconazole. The patient is seen today February 08, 2024 in follow-up on the regular medical floor. She is currently sitting up in bed. Awake and alert in no acute distress. She is maintaining O2 saturations in the 90s on 3 L/min per nasal cannula. She has normal saline at KVO. Denies any chest pain. No worsening shortness of breath, cough or congestion. She is continued on Symbicort, Singulair and DuoNeb inhalations. Remains on Zosyn. NicoDerm patch in place. White count 25.3. Hemoglobin 13.8. Platelets 394. Sodium 139. Potassium 4.6. Bicarb 26. BUN 23. Creatinine 0.4. Glucose 98. The patient is seen today February 09, 2024 in follow-up on the regular medical floor. She is awake and alert in no acute distress. Resting comfortably in bed. Maintaining O2 saturations in the 90s on 3 L/min per nasal cannula. No IV fluids. Follow-up chest x-ray reveals similar elevated right diaphragm. No pleural effusion, consolidation or pneumothorax. White count 23.1. Hemoglobin 13.4. Platelets 357. Sodium 138. Potassium 4.2. Bicarb 25. BUN 18. Creatinine 0.4. Glucose 241. Remains on voriconazole. Continued on bronchodilators. Continued on a prednisone taper. NicoDerm patch in place. The patient is seen today February 10, 2024 in follow-up on the regular medical floor. She is sitting up in bed. Awake and alert in no acute distress. He is maintaining good O2 saturations in the 90s on 3 L/min per nasal cannula. She has been afebrile. Hemodynamically stable. Follow-up urine culture revealed no growth glucose 147. She remains on DuoNeb inhalations, Symbicort, prednisone taper and Singulair. She remains on voriconazole. NicoDerm patch in place. The patient is seen today February 11, 2024 in follow-up on the regular medical floor. She is currently resting comfortably in bed. Awake and alert in no acute distress. She is maintaining good O2 saturations in the 90s on 2 L/min per nasal cannula. No IV fluids. 2.5. Hemoglobin 13.0. Platelets 346. Sodium 139. Potassium 4.1. Bicarb 28. BUN 19. Creatinine 0.3. Glucose 62. Remains on Symbicort, DuoNeb ventilations, prednisone taper, Singulair. NicoDerm patch in place. She remains on voriconazole. The patient is seen today February 12, 2024 in follow-up on the regular medical floor. She is awake and alert in no acute distress. She is currently requiring 5 L high flow nasal cannula to maintain O2 saturation in the 90s. CT scan of the abdomen and pelvis revealed large stool burden throughout the colon with 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. Age-indeterminate fracture of the right superior and inferior pubic rami. Trace right pleural effusion with atelectasis of the lung base. Follow-up urine culture revealed no growth. White count 31.2. Hemoglobin 12.6. Platelets 341. Sodium 138. Potassium 4.5. Bicarb 28. BUN 18. Creatinine 0.4. Glucose 126. She is continued on DuoNeb ventilations, Symbicort, Singulair and prednisone taper. Restarted on Zosyn per ID services. Progress note dated February 13, 2024. The patient is seen today in room 453. From the pulmonary standpoint, she is doing very well. She is on 5 L of oxygen. She denies any shortness of breath, or difficulty breathing. The patient is on saline at 20 cc an hour. Current laboratory data includes only a glucose this morning of 94. The patient continues on DuoNebs, Symbicort, Singulair, and prednisone. Infectious disease doctor, restarted the patient on Zosyn. Cultures are negative, and procalcitoni n level is fairly low, at 0.10. Objective - Vital Signs Vital signs: Vital Signs Temp 97.6 F 02/13/24 00:16 Pulse 97 02/13/24 00:16 Resp 22 02/13/24 00:16 BP 145/85 02/13/24 00:16 Pulse Ox 95 02/13/24 00:16 FiO2 Intake & Output 02/12/24 02/13/24 02/13/24 18:59 06:59 18:59 Output Total 1200 625 Balance -1200 -625 Output: Urine 1200 625 Other: Voiding Method Indwelling Catheter Indwelling Catheter # Voids 1 - Exam No acute distress, oriented 3. No respiratory distress. Currently on 5 L. HEENT examination is grossly unremarkable. Mucous membranes are moist. No oral lesions. Neck supple. Full range of motion. No adenopathy thyromegaly or neck vein distention. Cardiovascular examination reveals regular rhythm rate. S1-S2 normal. No S3 or S4. No discernible murmur noted. Heart rate 97 bpm. Heart sounds are distant. Lungs reveal mild scattered rhonchi. No wheezes or crackles. Breath sounds equal. Saturations are in the mid to high 90s on 5 L. Abdomen soft bowel sounds are heard. No masses or tenderness. Extremities are intact. No cyanosis clubbing or edema. Skin is without rash or lesion. Neurologic examination is brief but nonfocal. - Labs CBC & Chem 7: 02/12/24 05:32 02/12/24 05:32 Labs: Abnormal Lab Results - Last 24 Hours (Table) 02/12/24 02/12/2418 Range/Units 05:32 05:32 11:27 WBC 31.29 H (4.50-10.00) X 10*3/uL RBC 3.91 L (4.10-5.20) X 10*6/uL MCV 99.2 H (80.0-97.0) FL MCH 32.2 H (27.0-32.0) pg Immature Gran # 0.30 H (0.00-0.04) X 10*3/uL Neutrophils # 29.65 H (1.80-7.70) X 10*3/uL Lymphocytes # 0.61 L (0.90-5.00) X 10*3/uL Eosinophils # 0 L (0.04-0.35) X 10*3/uL Creatinine 0.4 L (0.6-1.5) mg/dL BUN/Creatinine Ratio 45.50 H (12.00-20.00) Ratio Glucose 126 H (70-110) mg/dL POC Glucose (mg/dL) 258 H (70-110) mg/dL Calcium 8.5 L (8.7-10.3) mg/dL Alkaline Phosphatase 236 H (41-126) U/L Total Protein 4.9 L (6.2-8.2) g/dL Albumin 3.1 L (3.8-4.9) g/dL 02/12/24 02/12/24 02/13/24 Range/Units 16:59 19:42 05:15 WBC (4.50-10.00) X 10*3/uL RBC (4.10-5.20) X 10*6/uL MCV (80.0-97.0) FL MCH (27.0-32.0) pg Immature Gran # (0.00-0.04) X 10*3/uL Neutrophils # (1.80-7.70) X 10*3/uL Lymphocytes # (0.90-5.00) X 10*3/uL Eosinophils # (0.04-0.35) X 10*3/uL Creatinine (0.6-1.5) mg/dL BUN/Creatinine Ratio (12.00-20.00) Ratio Glucose (70-110) mg/dL POC Glucose (mg/dL) 308 H 317 H 55 L (70-110) mg/dL Calcium (8.7-10.3) mg/dL Alkaline Phosphatase (41-126) U/L Total Protein (6.2-8.2) g/dL Albumin (3.8-4.9) g/dL 02/13/24 Range/Units 05:45 WBC (4.50-10.00) X 10*3/uL RBC (4.10-5.20) X 10*6/uL MCV (80.0-97.0) FL MCH (27.0-32.0) pg Immature Gran # (0.00-0.04) X 10*3/uL Neutrophils # (1.80-7.70) X 10*3/uL Lymphocytes # (0.90-5.00) X 10*3/uL Eosinophils # (0.04-0.35) X 10*3/uL Creatinine (0.6-1.5) mg/dL BUN/Creatinine Ratio (12.00-20.00) Ratio Glucose (70-110) mg/dL POC Glucose (mg/dL) 57 L (70-110) mg/dL Calcium (8.7-10.3) mg/dL Alkaline Phosphatase (41-126) U/L Total Protein (6.2-8.2) g/dL Albumin (3.8-4.9) g/dL Microbiology - Last 24 Hours (Table) 02/11/24 14:20 Blood Culture - Preliminary Blood Assessment and Plan Assessment: Acute hypoxic respiratory failure suspect secondary to aspiration pneumonia. Leukocytosis, back on Zosyn per ID service. Acute exacerbation of COPD, improved. Chronic and ongoing tobacco dependence. Diabetes mellitus type 2. Hypertension. Hyperlipidemia. Depression. Chronic urinary retention. Weight loss, unexplained. Compression fracture of the spine Stage II sacral decub ulcer. Significant debility and impaired performance and functional status. Frequent falls, hospitalized at [facility]. Plan: Plan dated February 13, 2024. The patient was restarted on Zosyn. The prednisone was cut in half, because maybe the prednisone was contributing to the elevated white blood count. C linically, the patient appears to be relatively stable. Her saturations are in the mid to high 90s on 5 L. That can be titrated down. Labs, x-rays, and medications are reviewed. We will continue to follow the patient, make recommendations. Again, respiratory status appears stable. She is on saline at 20 cc an hour. Time with Patient: Less than 30
[2024-02-13] MEDS: predniSONE 20 MG TAB PO SCH (08:12)
[2024-02-13 11:32] LABS: Glucose,Whole Blood 113 mg/dL (70-110)
--- NOTE | 2024-02-13 11:32 | P.GSCN ---
History of Present Illness Consult date: 02/13/24 Reason for Consult: Fecal impaction History of present illness: 63-year-old female hospitalized for pulmonary issues. Patient with decreased p hysical activity. Has been having increased abdominal bloating and some pain. CAT scan was obtained showing constipation with fecal bolus of stool. Patient states she is unable to move her bowels. Patient with decubitus ulcer in place. Review of Systems The patient denies any acute changes in vision or hearing, no dysphagia or odynophagia, no dysuria or hematuria, no headache, no runny nose, no rectal bleeding or melena Past Medical History Past Medical History: COPD, Diabetes Mellitus, Hyperlipidemia, Hypertension History of Any Multi-Drug Resistant Organisms: None Reported Past Surgical History: Adenoidectomy, Hysterectomy, Tubal Ligation Additional Past Surgical History / Comment(s): 2 tumors removals Smoking Status: Current every day smoker Medications and Allergies Home Medications Medication Instructions Recorded Confirmed Type Acetaminophen Tab [Tylenol] 650 mg PO Q6H PRN 01/29/24 01/29/24 History Amoxic-Pot Clav 500-125 mg 1 tab PO Q8H 01/29/24 01/29/24 History [Augmentin 500-125 mg] Budesonide/Formoterol Fumarate 2 puff INHALATION RT-BID 01/29/24 01/29/24 History [Symbicort 160-4.5 Mcg Inhaler] Escitalopram [Lexapro] 10 mg PO DAILY 01/29/24 01/29/24 History Insulin Glargine,Hum.rec.anlog 15 units SQ HS 01/29/24 01/29/24 History [Lantus Solostar Pen] Insulin Lispro [Insulin Lispro 5 units SQ TID-W/MEALS 01/29/24 01/29/24 History Kwikpen U-100] Lactobacillus Rhamnosus GG 1 cap PO BID 01/29/24 01/29/24 History [Culturelle] Melatonin 3 mg PO HS PRN 01/29/24 01/29/24 History Montelukast [Singulair] 10 mg PO HS 01/29/24 01/29/24 History Nicotine 14Mg/24Hr Patch [Habitrol] 1 patch TRANSDERM DAILY 01/29/24 01/29/24 History Pioglitazone HCl 15 mg PO DAILY 01/29/24 01/29/24 History amLODIPine [Norvasc] 5 mg PO BID 01/29/24 01/29/24 History guaiFENesin [guaiFENesin ER] 600 mg PO BID 01/29/24 01/29/24 History oxyCODONE-APAP 7.5-325MG [Percocet 1 tab PO TID PRN 01/29/24 01/29/24 History 7.5-325 mg] Budesonide [Pulmicort] 1 mg INHALATION RT-BID ml 02/05/24 Rx Formoterol Fumarate [Perforomist] 20 mcg INHALATION RT-BID ml 02/05/24 Rx Ipratropium-Albuterol Nebulize 3 ml INHALATION RT-QID each 02/05/24 Rx [Duoneb 0.5 mg-3 mg/3 ml Soln] Pantoprazole [Protonix] 40 mg PO AC-BID tab 02/05/24 Rx Voriconazole [Vfend] 200 mg PO Q12HR tab 02/05/24 Rx Allergies Allergy/AdvReac Type Severity Reaction Status Date / Time No Known Allergies Allergy Verified 01/29/24 12:57 Surgical - Exam Vital Signs Temp Pulse Resp BP Pulse Ox 97.6 F 99 20 142/82 84 L 01/29/24 12:15 01/29/24 12:15 01/29/24 12:15 01/29/24 12:15 01/29/24 12:15 Physical exam: General: Elderly female. Appears older than stated age, appears malnourished HEENT: Normocephalic, sclerae nonicteric Abdomen: Nontender, mild distention Extremities: Bilateral lower extremity Neuro: Alert and oriented Results - Labs 02/12/24 05:32 02/12/24 05:32 Abnormal Lab Results - Last 24 Hours (Table) 02/12/24 02/12/24 02/13/24 Range/Units 16:59 19:42 05:15 POC Glucose (mg/dL) 308 H 317 H 55 L (70-110) mg/dL 02/13/24 Range/Units 05:45 POC Glucose (mg/dL) 57 L (70-110) mg/dL Microbiology - Last 24 Hours (Table) 02/11/24 14:20 Blood Culture Gram Stain - Preliminary Blood Blood Culture - Preliminary Assessment and Plan (1) Fecal impaction in rectum Narrative/Plan: 63-year-old female with fecal impaction. Will proceed with flexible sigmoidoscopy with disimpaction under anesthesia tomorrow. Option of bedside disimpaction offered. Patient would like to have anesthesia. Make n.p.o. for now. Current Visit: Yes Status: Acute Code(s): K56.41 - FECAL IMPACTION SNOMED Code(s): 5550139831
[2024-02-13] MEDS: FLUCONAZOLE IN NACL,ISO-OSM 400 MG in SALINE 1 200ML.BAG IVPB SCH (12:27)
--- NOTE | 2024-02-13 13:15 | XR ---
EXAM: XR chest 1V portable CLINICAL INDICATION:Female, 63 years old with history of Pneumonia; [facility] COMPARISON: 02/08/2024 and earlier exams TECHNIQUE: Chest single view. FINDINGS: Lines/tubes/devices: None. Cardiomediastinum: Cardiac silhouette appears normal in size. Atherosclerotic calcifications of the aorta. Unremarkable mediastinal silhouette. Vasculature: No increased pulmonary vasculature. Lungs/pleura: Left lung and pleural space are clear. Similar-appearing opacity at the right lung base, shown to rep resent combination of elevated hemidiaphragm, pleural effusion, and basilar atelectasis on CT. No acu te consolidation is seen. Bones/soft tissues: Bony thorax appears grossly intact as seen, with mild degenerative changes. Regional soft tissues melissa ear unremarkable. Other: Large amount of colonic stool seen in the upper abdomen, correlate for constipation or impacti on. IMPRESSION: * Stable cardiopulmonary status. Right basilar opacity unchanged. * Large amount of colonic stool seen in the upper abdomen, correlate for constipation or impaction.
--- NOTE | 2024-02-13 16:07 | P.PN ---
Subjective Progress Note Date: 02/12/24 Principal diagnosis: Reason for follow-up is UTI question of pneumonia and a sacral pressure ulcer Patient is a 63-year-old female with a past medical history significan t for diabetes mellitus hypertension hyperlipidemia COPD current everyday smoker, recent multiple admission to the [facility] for UTI followed with the compression fracture of the spine and hypoglycemia has been brought in to [facility] for evaluation of increasing shortness of breath did have abnormal CT angiogram of the chest concerning for effusion atelectasis positive UA concerning for UTI and the patient also have a sacral pressure ulcer. On today's evaluation that is 02/12/2024, patient has been afebrile, patient is breathing comfortably and is currently on 4 L nasal cannula oxygen, patient denies having any significant cough no chest pain shortness of breath, patient denies nausea vomiting still did not have any bowel movement denies any worsening abdominal pain Patient white count is down to 31.29 creatinine 0.4 Objective - Vital Signs Vital signs: Vital Signs Temp 97.8 F 02/12/24 13:35 Pulse 99 02/12/24 13:35 Resp 19 02/12/24 13:35 BP 120/66 02/12/24 13:35 Pulse Ox 91 L 02/12/24 13:35 FiO2 Intake & Output 02/11/24 02/12/24 02/12/24 18:59 06:59 18:59 Intake Total 250 Output Total 1200 Balance 250 -1200 Intake: Oral 250 Output: Urine 1200 Other: Voiding Method Indwelling Catheter Indwelling Catheter Indwelling Catheter # Voids 1 - Exam GENERAL DESCRIPTION: Middle-aged female lying in bed in no distress RESPIRATORY SYSTEM: Unlabored breathing , decreased breath sounds at bases HEART: S1 S2 regular rate and rhythm , ABDOMEN: Soft , no tenderness EXTREMITIES: No edema feet - Labs CBC & Chem 7: 02/12/24 05:32 02/12/24 05:32 Labs: Abnormal Lab Results - Last 24 Hours (Table) 02/11/24 02/11/24 02/11/24 Range/Units 14:16 16:42 20:06 WBC (4.50-10.00) X 10*3/uL RBC (4.10-5.20) X 10*6/uL MCV (80.0-97.0) FL MCH (27.0-32.0) pg Immature Gran # (0.00-0.04) X 10*3/uL Neutrophils # (1.80-7.70) X 10*3/uL Lymphocytes # (0.90-5.00) X 10*3/uL Eosinophils # (0.04-0.35) X 10*3/uL Creatinine (0.6-1.5) mg/dL BUN/Creatinine Ratio (12.00-20.00) Ratio Glucose (70-110) mg/dL POC Glucose (mg/dL) 318 H 328 H (70-110) mg/dL Calcium (8.7-10.3) mg/dL Alkaline Phosphatase (41-126) U/L Total Protein (6.2-8.2) g/dL Albumin (3.8-4.9) g/dL Procalcitonin 0.10 H (0.02-0.09) ng/mL 02/12/24 02/12/24 02/12/24 Range/Units 05:32 05:32 06:17 WBC 31.29 H (4.50-10.00) X 10*3/uL RBC 3.91 L (4.10-5.20) X 10*6/uL MCV 99.2 H (80.0-97.0) FL MCH 32.2 H (27.0-32.0) pg Immature Gran # 0.30 H (0.00-0.04) X 10*3/uL Neutrophils # 29.65 H (1.80-7.70) X 10*3/uL Lymphocytes # 0.61 L (0.90-5.00) X 10*3/uL Eosinophils # 0 L (0.04-0.35) X 10*3/uL Creatinine 0.4 L (0.6-1.5) mg/dL BUN/Creatinine Ratio 45.50 H (12.00-20.00) Ratio Glucose 126 H (70-110) mg/dL POC Glucose (mg/dL) 140 H (70-110) mg/dL Calcium 8.5 L (8.7-10.3) mg/dL Alkaline Phosphatase 236 H (41-126) U/L Total Protein 4.9 L (6.2-8.2) g/dL Albumin 3.1 L (3.8-4.9) g/dL Procalcitonin (0.02-0.09) ng/mL 02/12/24 02/12/24 Range/Units 06:52 11:27 WBC (4.50-10.00) X 10*3/uL RBC (4.10-5.20) X 10*6/uL MCV (80.0-97.0) FL MCH (27.0-32.0) pg Immature Gran # (0.00-0.04) X 10*3/uL Neutrophils # (1.80-7.70) X 10*3/uL Lymphocytes # (0.90-5.00) X 10*3/uL Eosinophils # (0.04-0.35) X 10*3/uL Creatinine (0.6-1.5) mg/dL BUN/Creatinine Ratio (12.00-20.00) Ratio Glucose (70-110) mg/dL POC Glucose (mg/dL) 122 H 258 H (70-110) mg/dL Calcium (8.7-10.3) mg/dL Alkaline Phosphatase (41-126) U/L Total Protein (6.2-8.2) g/dL Albumin (3.8-4.9) g/dL Procalcitonin (0.02-0.09) ng/mL Assessment and Plan (1) Stage III pressure ulcer of sacral region Current Visit: Yes Status: Acute Code(s): L89.153 - PRESSURE ULCER OF SACRAL REGION, STAGE 3 SNOMED Code(s): 35596332983624 (2) Urinary tract infection Current Visit: Yes Status: Acute Code(s): N39.0 - URINARY TRACT INFECTION, SITE NOT SPECIFIED SNOMED Code(s): 40714746 (3) Aspiration pneumonia Current Visit: Yes Status: Acute Code(s): J69.0 - PNEUMONITIS DUE TO INHALATION OF FOOD AND VOMIT SNOMED Code(s): 452361346 Plan: 1patient presented to hospital with increasing shortness of breath which is likely multifactorial with a possible component of pneumonia likely gram- negative as the patient has been in the hospital versus aspiration etiology 2-patient also has significantly positive despite changing Horn catheter likely component of cath versus UTI likely from enteric gram-negative 3-patient did have a stage III sacral pressure ulcer with slough tissue but no cellulitis local wound care with Medihoney followed by moist dressing and f requent change of position 4-patient urine cultures growing Sarah not albicans patient has received adequate treatment with voriconazole, which has been discontinued 5-patient with worsening of the white count no bowel movement for the last 4 to 5 days, patient did have CT abdominal pelvis CT shows large stool burden throughout the colon with 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 currently getting laxat raquel patient to continue with the Zosyn while waiting for repeat culture to finalize Dictation was produced using [employer] dictation software. please excuse any grammatical, word or spelling errors. Time with Patient: Less than 30
--- NOTE | 2024-02-13 16:09 | P.PN ---
Subjective Progress Note Date: 02/13/24 Principal diagnosis: Reason for follow-up is UTI question of pneumonia and a sacral pressure ulcer Patient is a 63-year-old female with a past medical history significan t for diabetes mellitus hypertension hyperlipidemia COPD current everyday smoker, recent multiple admission to the [facility] for UTI followed with the compression fracture of the spine and hypoglycemia has been brought in to [facility] for evaluation of increasing shortness of breath did have abnormal CT angiogram of the chest concerning for effusion atelectasis positive UA concerning for UTI and the patient also have a sacral pressure ulcer. On today's evaluation that is 02/13/2024,the patient denies any fever or any chills, patient is breathing comfortably on 5 L nasal oxygen the patient denies chest pain shortness of breath and no significant cough, patient complaining of some abdominal discomfort and able to have a bowel movement no vomiting has been reported by the nursing staff No lab draw today blood cultures came back positive with Sarah albicans Objective - Vital Signs Vital signs: Vital Signs Temp 98.2 F 02/13/24 14:13 Pulse 92 02/13/24 14:13 Resp 17 02/13/24 14:13 BP 143/77 02/13/24 14:13 Pulse Ox 96 02/13/24 14:13 FiO2 Intake & Output 02/12/24 02/13/24 02/13/24 18:59 06:59 18:59 Output Total 1200 625 250 Balance -1200 -625 -250 Output: Urine 1200 625 250 Other: Voiding Method Indwelling Catheter Indwelling Catheter Indwelling Catheter # Voids 1 - Exam GENERAL DESCRIPTION: Middle-aged female lying in bed in no distress RESPIRATORY SYSTEM: Unlabored breathing , decreased breath sounds at bases HEART: S1 S2 regular rate and rhythm , ABDOMEN: Soft , no tenderness EXTREMITIES: No edema feet - Labs CBC & Chem 7: 02/12/24 05:32 02/12/24 05:32 Labs: Abnormal Lab Results - Last 24 Hours (Table) 02/12/24 02/12/24 02/13/24 Range/Units 16:59 19:42 05:15 POC Glucose (mg/dL) 308 H 317 H 55 L (70-110) mg/dL 02/13/24 02/13/24 Range/Units 05:45 11:30 POC Glucose (mg/dL) 57 L 113 H (70-110) mg/dL Microbiology - Last 24 Hours (Table) 02/11/24 14:20 Blood Culture Gram Stain - Preliminary Blood Blood Culture - Preliminary Molecular ID Assessment and Plan (1) Stage III pressure ulcer of sacral region Current Visit: Yes Status: Acute Code(s): L89.153 - PRESSURE ULCER OF SACRAL REGION, STAGE 3 SNOMED Code(s): 21996998991902 (2) Urinary tract infection Current Visit: Yes Status: Acute Code(s): N39.0 - URINARY TRACT INFECTION, SITE NOT SPECIFIED SNOMED Code(s): 65314025 (3) Aspiration pneumonia Current Visit: Yes Status: Acute Code(s): J69.0 - PNEUMONITIS DUE TO INHALATION OF FOOD AND VOMIT SNOMED Code(s): 744438276 (4) Candidemia Current Visit: Yes Status: Acute Code(s): B37.7 - CANDIDAL SEPSIS SNOMED Code(s): 426005512 Plan: 1patient with worsening of the white count no bowel movement for the last 4 to 5 days, patient did have CT abdominal pelvis CT shows large stool burden throug hout the colon with 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 General surgery is planning for manually formation in the endoscopy suite tomorrow patient is covered with Zosyn 2-patient clinical course complicated by development of candidemia positive blood culture with Sarah albicans possible GI source currently do not have any long-term indwelling catheter and recent urine culture negative Diflucan has been added blood culture will repeat with a.m. lab to document clearance Dictation was produced using [employer] dictation software. please excuse any grammatical, word or spelling errors. Time with Patient: Greater than 30
[2024-02-13] MEDS: ZINC OXIDE PASTE (Z-GUARD) 1 APPLIC TOPICAL PRN (16:25)
[2024-02-13 16:36] LABS: Glucose,Whole Blood 168 mg/dL (70-110)
[2024-02-13] MEDS: INSULIN DETEMIR (LEVEMIR) 100 UNIT/ML SYR SQ SCH (20:48)
[2024-02-13 20:56] LABS: Glucose,Whole Blood 222 mg/dL (70-110)
[2024-02-14 06:15] LABS: Glucose,Whole Blood 207 mg/dL (70-110)
[2024-02-14 11:31] LABS: Glucose,Whole Blood 226 mg/dL (70-110)
[2024-02-14] MEDS ORDERED: PROPOFOL 10 MG/ML 20 ML VIAL IV ONE (14:34)
[2024-02-14] MEDS: IV FLUID CONTINUATION 1,000 ML IV ONE (14:49)
--- NOTE | 2024-02-14 15:09 | P.PCN ---
Date of Procedure: 02/14/24 Procedure(s) Performed: PREOPERATIVE DIAGNOSIS: Fecal impaction, rectal bleeding POSTOPERATIVE DIAGNOSIS: Fecal impaction, proctitis PROCEDURE: Flexible sigmoidoscopy with disimpaction ANESTHESIA: MAC SURGEON: Raghu Washburn M.D. SPECIMENS: None ENDOSCOPIC PROCEDURE: The patient was placed on the endoscopy table in the left decubitus position. Manually the fecal bolus was removed. I would estimate at least 20 to 30 ounces of stool was evacuated. At that point we only had soft stool in the rectum. The flexible sigmoidoscope was inserted. Obviously it was difficult to visualize all surfaces well in the rectum and sigmoid however what could be visualized revealed proctitis with superficial ulcerations and some mild oozing in the rectum distally. The remainder of the visualized mucosa appeared normal. There was no signs of gangrene or full-thickness necrosis. The patient had a small fissure posteriorly as well. The patient was taken to the recovery room in stable condition per anesthesia guidelines. RECOMMENDATIONS: Resume diet. Begin bowel prep to assist with clearing the remainder of the colon.
--- NOTE | 2024-02-14 16:08 | P.PN ---
Subjective Progress Note Date: 02/14/24 On 02/14/2024, the patient is being seen for a follow-up. This patient was initially hospitalized on 01/30/2024 and the patient has been in the hospital since. The patient is known to have COPD and diabetes mellitus and she is a chronic smoker and she has a chronic indwelling Horn catheter in place that was placed in a previous hospitalization at [facility]. The patient during this current hospital stay was treated for hypoxic respiratory failure and the CAT scan of the chest that was done at time of admission showed no evidence of any pulmonary embolism and there was extensive atelectatic change the lung base bilaterally right more than left with bilateral pleural effusion and the patient was covered with IV Zosyn. In addition to COPD, she is known to have hypertension hyperlipidemia and diabetes mellitus type 2 and chronic urinary retention and the patient has a Horn catheter in place and she has sustained compression fractures of her spine and she has significant debility impaired performance and functional status and she has been essentially bedbound for the past few months. She has had previous episodes of fall and sacral decubitus ulceration. The patient currently is having issues with constipation. The patient was supposed to go and have a decompression colonoscopy by general surgery today. The patient is also having issues with persistent leukocytosis. During this current admission, the patient's white cell count gradually went up and currently is up to 31. There is a positive blood culture with Sarah albicans from 02/11/2024 and urine culture was also positive for Sarah not albicans species. Patient is currently being seen by infectious disease. The patient is currently on IV Zosyn and IV Diflucan. He is on 5 L of oxygen by nasal cannula with a pulse ox of 95%. She is currently afebrile. Infectious disease on the case and the patient is referred to a WBC tagged scan. 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 Most recent chest x- ray from 02/13/2024 shows similar-appearing atelectatic changes in an elevation of the right hemidiaphragm. Objective - Vital Signs Vital signs: Vital Signs Temp 98.3 F 02/14/24 08:00 Pulse 96 02/14/24 09:32 Resp 18 02/14/24 09:24 BP 132/75 02/14/24 08:00 Pulse Ox 95 02/14/24 09:18 FiO2 Intake & Output 02/13/24 02/14/24 02/14/24 18:59 06:59 18:59 Output Total 250 500 Balance -250 -500 Output: Urine 250 500 Other: Voiding Method Indwelling Catheter Indwelling Catheter Indwelling Catheter - Exam No acute distress, oriented 3. No respiratory distress. Currently on 5 L of oxygen by nasal cannula HEENT examination is grossly unremarkable. Mucous membranes are moist. No oral lesions. Neck supple. Full range of motion. No adenopathy thyromegaly or neck vein distention. Cardiovascular examination reveals regular rhythm rate. S1-S2 normal. No S3 or S4. No discernible murmur noted. Heart sounds are distant. Lungs reveal mild scattered rhonchi. No wheezes or crackles. Breath sounds equal. Diminished breath sound lung base bilaterally Abdomen soft bowel sounds are heard. No masses or tenderness. Extremities are intact. No cyanosis clubbing or edema. Skin is without rash or lesion. Neurologic examination is brief but nonfocal. - Labs CBC & Chem 7: 02/12/24 05:32 02/12/24 05:32 Labs: Abnormal Lab Results - Last 24 Hours (Table) 02/13/24 02/13/24 02/14/24 Range/Units 16:34 20:45 06:13 POC Glucose (mg/dL) 168 H 222 H 207 H (70-110) mg/dL 02/14/24 Range/Units 11:28 POC Glucose (mg/dL) 226 H (70-110) mg/dL Microbiology - Last 24 Hours (Table) 02/11/24 14:20 Blood Culture Gram Stain - Final Blood Blood Culture - Final Sarah albicans Molecular ID Assessment and Plan Plan: Acute hypoxic respiratory failure currently on 5 L of oxygen by nasal cannula CTA of the chest shows no evidence of any pulmonary embolism. Extensive atelectatic changes in lung base bilaterally right more than left with small pleural effusions. Consider aspiration. The patient remains on Zosyn. Patient also has recommended pragmatic elevation and atelectatic change in lung base bilaterally. Systemic fungemia with Sarah albicans in the blood, urine and the source c annot be completely ruled out Constipation and fecaloma in the rectum, awaiting colonoscopy for decompression Leukocytosis COPD Diabetes mellitus type 2 Hypertension Hyperlipidemia Chronic urinary retention maintained on a chronic indwelling Horn catheter, urine culture was also positive for Sarah Weight loss, unexplained Compression fracture of the spine Stage II sacral decub ulcer Significant debility and impaired performance and functional status and the patient is currently unable to ambulate and she has been essentially chair/bedbound for the past month or so. Frequent falls, hospitalized at [facility]. Plan Patient is going to undergo a decompression colonoscopy for constipation and rectal fecaloma Monitor the white cell count Repeat blood cultures, Of concern is the systemic candidemia Patient remains on a combination of Zosyn and Diflucan for now Source of the systemic candidemia is most likely a urinary source as the patient had a chronically indwelling Horn catheter in place with frequent hospitalizations. GI source is felt to be less likely. The patient is currently on Diflucan. CAT scan of the abdomen and pelvis was noted Continue lactulose 20 g p.o. 3 times daily Levemir insulin 5 units along with NovoLog 3 units with meals Prednisone 20 mg p.o. daily as part of the burst taper ID is on the case General surgery is on the case Will continue to follow
[2024-02-14 17:11] LABS: Basophils % (A) 0 %; Eosinophils % (A) 0 %; HCT 39.7 % (34.0-46.0); HGB 12.2 gm/dL (11.4-16.0); Lymphocytes # (A) 0.4 k/uL (1.0-4.8); Lymphocytes % (A) 2 %; MCH 31.4 pg (25.0-35.0); MCHC 30.7 g/dL (31.0-37.0); MCV 102.1 fL (80.0-100.0); Macrocytosis Slight; Mean Platelet Volume 7.5; Monocytes # (A) 0.4 k/uL (0-1.0); Monocytes % (A) 2 %; Neutrophils # (A) 22.6 k/uL (1.3-7.7); Neutrophils % (A) 97 %; Platelet Count 318 k/uL (150-450); RBC 3.89 m/uL (3.80-5.40); RDW 13.7 % (11.5-15.5); WBC 23.4 k/uL (3.8-10.6)
[2024-02-14 17:21] LABS: ALT 21 U/L (4-34); AST 23 U/L (14-36); African American GFR (CKD) >90 (>60 ml/min/1.73 sqM); Albumin 2.4 g/dL (3.5-5.0); Alkaline Phosphatase 240 U/L (38-126); Anion Gap 6 mmol/L; Blood Urea Nitrogen 23 mg/dL (7-17); Calcium 8.3 mg/dL (8.4-10.2); Carbon Dioxide 21 mmol/L (22-30); Chloride 108 mmol/L (98-107); Glucose 267 mg/dL (74-99); Non-African American GFR(CKD) >90 (>60 ml/min/1.73 sqM); Potassium 3.8 mmol/L (3.5-5.1); Sodium 135 mmol/L (137-145); Total Bilirubin 0.6 mg/dL (0.2-1.3); Total Protein 4.7 g/dL (6.3-8.2)
[2024-02-14] MEDS: PEG 3350 (236 GM/BTL) + LYTES 4,000 ML BOTTLE PO ONE (18:30)
[2024-02-14] MEDS: traMADol 50 MG TAB PO PRN (20:20)
[2024-02-14 20:30] LABS: Glucose,Whole Blood 397 mg/dL (70-110)
[2024-02-14] MEDS: INSULIN ASPART (NovoLOG) 100 UNIT/ML VIAL SQ SCH (20:57)
--- NOTE | 2024-02-14 21:34 | PN ---
PROGRESS NOTE SUBJECTIVE: This is a 63-year-old white female, hospitalized for pulmonary issues, abdominal bloating, abdominal pain and fecaloma. Unable to move her bowels. Surgery saw her. She apparently had a fecal flexible sigmoidoscope disimpaction under anesthesia, which is possibly done today. She is in ICU postop. Dr. Byrne sees the patient for status post the large fecaloma. OBJECTIVE: VITAL SIGNS: Temperature 98.3, pulse 90s, respiratory rate 16 to 18, blood pressure 132/75, and O2 95 on 5 L actually. GENERAL: Thin, cachectic. CARDIOVASCULAR: S1, S2. LUNGS: Decreased breath sounds. ABDOMEN: Soft. EXTREMITIES: No edema. White count 31.29. ASSESSMENT AND PLAN: Acute hypoxemic respiratory failure. She has COPD pulmonary aspiration, possible aspiration pneumonia, systemic fungemia with Sarah albicans in the blood, constipation, fecaloma OB in the rectum, leukocytosis, COPD, diabetes type 2, hypertension, dyslipidemia, chronic urinary retention, compression fracture, cervical spine, stage II decubitus ulcer, decompressive colonoscopy, constipation, fecaloma. Monitor white count. Systemic candidemia. Continue blood cultures. Repeat Zosyn, Diflucan. Lactulose for constipation, Levemir, with NovoLog for sugar. Prognosis guarded. MMODL / IJN: [id number] /
--- NOTE | 2024-02-14 22:17 | P.PN ---
Subjective Progress Note Date: 02/14/24 Principal diagnosis: Reason for follow-up is UTI question of pneumonia and a sacral pressure ulcer Patient is a 63-year-old female with a past medical history significan t for diabetes mellitus hypertension hyperlipidemia COPD current everyday smoker, recent multiple admission to the [facility] for UTI followed with the compression fracture of the spine and hypoglycemia has been brought in to [facility] for evaluation of increasing shortness of breath did have abnormal CT angiogram of the chest concerning for effusion atelectasis positive UA concerning for UTI and the patient also have a sacral pressure ulcer. On today's evaluation that is 02/14/2024,the patient remains to be afebrile, patient is 5 L nasal cannula supplemental oxygen and complaining of some shortness of breath no chest pain or cough.Patient denies having any nausea or vomiting, did have some abdominal discomfort and no bowel movement. Patient white count is down to 23.4 creatinine 0.33 Objective - Vital Signs Vital signs: Vital Signs Temp 98.3 F 02/14/24 08:00 Pulse 100 02/14/24 12:54 Resp 18 02/14/24 09:24 BP 132/75 02/14/24 08:00 Pulse Ox 95 02/14/24 09:18 FiO2 Intake & Output 02/13/24 02/14/24 02/14/24 18:59 06:59 18:59 Output Total 250 500 Balance -250 -500 Output: Urine 250 500 Other: Voiding Method Indwelling Catheter Indwelling Catheter Indwelling Catheter - Exam GENERAL DESCRIPTION: Middle-aged female lying in bed in no distress RESPIRATORY SYSTEM: Unlabored breathing , decreased breath sounds at bases HEART: S1 S2 regular rate and rhythm , ABDOMEN: Soft , no tenderness EXTREMITIES: No edema feet - Labs CBC & Chem 7: 02/14/24 16:48 02/14/24 16:48 Labs: Abnormal Lab Results - Last 24 Hours (Table) 02/13/24 02/13/24 02/14/24 Range/Units 16:34 20:45 06:13 POC Glucose (mg/dL) 168 H 222 H 207 H (70-110) mg/dL 02/14/24 Range/Units 11:28 POC Glucose (mg/dL) 226 H (70-110) mg/dL Microbiology - Last 24 Hours (Table) 02/11/24 14:20 Blood Culture Gram Stain - Final Blood Blood Culture - Final Sarah albicans Molecular ID Assessment and Plan (1) Stage III pressure ulcer of sacral region Current Visit: Yes Status: Acute Code(s): L89.153 - PRESSURE ULCER OF SACRAL REGION, STAGE 3 SNOMED Code(s): 61803470598662 (2) Urinary tract infection Current Visit: Yes Status: Acute Code(s): N39.0 - URINARY TRACT INFECTION, SITE NOT SPECIFIED SNOMED Code(s): 53131220 (3) Aspiration pneumonia Current Visit: Yes Status: Acute Code(s): J69.0 - PNEUMONITIS DUE TO INHALATION OF FOOD AND VOMIT SNOMED Code(s): 475608274 (4) Candidemia Current Visit: Yes Status: Acute Code(s): B37.7 - CANDIDAL SEPSIS SNOMED Code(s): 332278127 Plan: 1patient with worsening of the white count no bowel movement for the last 4 to 5 days, patient did have CT abdominal pelvis CT shows large stool burden throughout the colon with 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 General surgery is planning for manually formation in the endoscopy suite tomorrow patient is covered with Zosyn 2-patient clinical course complicated by development of candidemia positive blood culture with Sarah albicans possible GI source, patient is currently waiting for manual evaluation of her fecaloma patient is covered with Zosyn and Diflucan blood culture has been repeated white count is trending down questions were answered Dictation was produced using [employer] software. please excuse any grammatical, word or spelling errors. Time with Patient: Less than 30
[2024-02-15 06:23] LABS: Basophils % (A) 0 %; Eosinophils # (A) 0.3 k/uL (0-0.7); Eosinophils % (A) 1 %; HCT 35.2 % (34.0-46.0); HGB 11.2 gm/dL (11.4-16.0); Lymphocytes # (A) 0.9 k/uL (1.0-4.8); Lymphocytes % (A) 4 %; MCH 30.9 pg (25.0-35.0); MCHC 31.8 g/dL (31.0-37.0); Mean Platelet Volume 7.7; Monocytes # (A) 0.7 k/uL (0-1.0); Monocytes % (A) 3 %; Neutrophils # (A) 21.8 k/uL (1.3-7.7); Neutrophils % (A) 92 %; Platelet Count 291 k/uL (150-450); RBC 3.63 m/uL (3.80-5.40); RDW 14.2 % (11.5-15.5); WBC 23.7 k/uL (3.8-10.6)
[2024-02-15 06:38] LABS: Glucose,Whole Blood 238 mg/dL (70-110)
[2024-02-15 06:50] LABS: ALT 18 U/L (4-34); AST 21 U/L (14-36); African American GFR (CKD) >90 (>60 ml/min/1.73 sqM); Albumin 2.2 g/dL (3.5-5.0); Alkaline Phosphatase 206 U/L (38-126); Anion Gap -2 mmol/L; Blood Urea Nitrogen 23 mg/dL (7-17); Calcium 8.3 mg/dL (8.4-10.2); Carbon Dioxide 28 mmol/L (22-30); Chloride 110 mmol/L (98-107); Glucose 138 mg/dL (74-99); Non-African American GFR(CKD) >90 (>60 ml/min/1.73 sqM); Potassium 3.2 mmol/L (3.5-5.1); Sodium 136 mmol/L (137-145); Total Bilirubin 0.5 mg/dL (0.2-1.3); Total Protein 4.5 g/dL (6.3-8.2)
[2024-02-15] MEDS: ACETAMINOPHEN TAB 325 MG TAB PO PRN (08:20)
--- NOTE | 2024-02-15 08:30 | XR ---
EXAMINATION TYPE: XR chest 1V portable DATE OF EXAM: 02/15/2024 6:37 AM CLINICAL INDICATION:Female, 63 years old with history of acute hypoxemic respiratory failure; [facility] COMPARISON: Chest radiographs from 02/13/2024 TECHNIQUE: XR chest 1V portable Frontal view of the chest. FINDINGS: Lungs/Pleura: Similar elevated right diaphragm with associated atelectasis. Diffuse haziness of lungs likely secondary to technique. There is no evidence of pleural effusion, focal consolidation, or pne umothorax. Pulmonary vascularity: Unremarkable. Heart/mediastinum: Cardiomediastinal silhouette is unremarkable. Musculoskeletal: No acute osseous pathology. Other findings: None Lines/Tubes: IMPRESSION: Elevated right diaphragm with associated atelectasis.
[2024-02-15] MEDS ORDERED: Potassium Replacement Protocol 1 EACH MISC MISCELLANE PRN (09:59)
[2024-02-15] MEDS: POTASSIUM CHLORIDE ER 20 MEQ TAB.ER PO SCH ×2 (10:40→16:11)
[2024-02-15 11:34] LABS: Glucose,Whole Blood 207 mg/dL (70-110)
--- NOTE | 2024-02-15 13:00 | P.PN ---
Subjective Progress Note Date: 02/15/24 On 02/14/2024, the patient is being seen for a follow-up. This patient was initially hospitalized on 01/30/2024 and the patient has been in the hospital since. The patient is known to have COPD and diabetes mellitus and she is a chronic smoker and she has a chronic indwelling Horn catheter in place that was placed in a previous hospitalization at [facility]. The patient during this current hospital stay was treated for hypoxic respiratory failure and the CAT scan of the chest that was done at time of admission showed no evidence of any pulmonary embolism and there was extensive atelectatic change the lung base bilaterally right more than left with bilateral pleural effusion and the patient was covered with IV Zosyn. In addition to COPD, she is known to have hypertension hyperlipidemia and diabetes mellitus type 2 and chronic urinary retention and the patient has a Horn catheter in place and she has sustained compression fractures of her spine and she has significant debility impaired performance and functional status and she has been essentially bedbound for the past few months. She has had previous episodes of fall and sacral decubitus ulceration. The patient currently is having issues with constipation. The patient was supposed to go and have a decompression colonoscopy by general surgery today. The patient is also having issues with persistent leukocytosis. During this current admission, the patient's white cell count gradually went up and currently is up to 31. There is a positive blood culture with Sarah albicans from 02/11/2024 and urine culture was also positive for Sarah not albicans species. Patient is currently being seen by infectious disease. The patient is currently on IV Zosyn and IV Diflucan. He is on 5 L of oxygen by nasal cannula with a pulse ox of 95%. She is currently afebrile. Infectious disease on the case and the patient is referred to a WBC tagged scan. 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 Most recent chest x- ray from 02/13/2024 shows similar-appearing atelectatic changes in an elevation of the right hemidiaphragm. On 02/15/2024, the patient is being seen for a follow-up. Clinically stable and hemodynamically stable. She remains on 6 of oxygen by nasal cannula with a pulse ox of 88 to 92%. Hemodynamically stable. No fever or chills. Remains on Diflucan. Results of the follow-up blood cultures still pending for now. Noted the patient had positive systemic candidemia with positive blood cultures with Sarah albicans. Remains on IV Diflucan. No evidence of any active GI bleeding. She is stooling. She is post colonoscopy and decompression of rectal fecaloma. The white cell count 23.7 with a hemoglobin 11.2 and a platelet count of 291. BUN is 23 with a creatinine of 0.2 and a sodium level of 136 and a potassium level is at 3.2. Potassium level is being replaced. She remains on bronchodilators patient remains on prednisone currently at a dose of 20 mg p.o. daily. She is on IV Zosyn. She is on lactulose 20 g 3 times daily. She is on Levemir insulin 5 units along with NovoLog 3 units with meals. She is on Actos in addition to Levemir insulin. No other complaints. No nausea. No emesis. No abdominal pain. No chest pain. Profoundly weak. Objective - Vital Signs Vital signs: Vital Signs Temp 97.5 F L 02/15/24 08:00 Pulse 84 02/15/24 08:00 Resp 20 02/15/24 08:00 BP 113/67 02/15/24 08:00 Pulse Ox 92 L 02/15/24 08:00 FiO2 Intake & Output 02/14/24 02/15/24 02/15/24 18:59 06:59 18:59 Intake Total 600 118 Output Total 1400 Balance 600 -1400 118 Weight 50.8 kg Intake: IV 600 Oral 118 Output: Urine 1400 Other: Voiding Method Indwelling Catheter Indwelling Catheter # Bowel Movements 1 1 - Exam No acute distress, oriented 3. No respiratory distress. Currently on 5 L of oxygen by nasal cannula HEENT examination is grossly unremarkable. Mucous membranes are moist. No oral lesions. Neck supple. Full range of motion. No adenopathy thyromegaly or neck vein distention. Cardiovascular examination reveals regular rhythm rate. S1-S2 normal. No S3 or S4. No discernible murmur noted. Heart sounds are distant. Lungs reveal mild scattered rhonchi. No wheezes or crackles. Breath sounds equal. Diminished breath sound lung base bilaterally Abdomen soft bowel sounds are heard. No masses or tenderness. Extremities are intact. No cyanosis clubbing or edema. Skin is without rash or lesion. Neurologic examination is brief but nonfocal. - Labs CBC & Chem 7: 02/15/24 06:09 02/15/24 06:09 Labs: Abnormal Lab Results - Last 24 Hours (Table) 02/14/24 02/14/24 02/14/24 Range/Units 11:28 16:48 16:48 WBC 23.4 H (3.8-10.6) k/uL RBC (3.80-5.40) m/uL Hgb (11.4-16.0) gm/dL MCV 102.1 H (80.0-100.0) fL MCHC 30.7 L (31.0-37.0) g/dL Neutrophils # 22.6 H (1.3-7.7) k/uL Lymphocytes # 0.4 L (1.0-4.8) k/uL Sodium 135 L (137-145) mmol/L Potassium (3.5-5.1) mmol/L Chloride 108 H (98-107) mmol/L Carbon Dioxide 21 L (22-30) mmol/L BUN 23 H (7-17) mg/dL Creatinine 0.33 L (0.52-1.04) mg/dL Glucose 267 H (74-99) mg/dL POC Glucose (mg/dL) 226 H (70-110) mg/dL Calcium 8.3 L (8.4-10.2) mg/dL Alkaline Phosphatase 240 H (38-126) U/L Total Protein 4.7 L (6.3-8.2) g/dL Albumin 2.4 L (3.5-5.0) g/dL 02/14/24 02/15/24 02/15/24 Range/Units 20:29 06:09 06:09 WBC 23.7 H (3.8-10.6) k/uL RBC 3.63 L (3.80-5.40) m/uL Hgb 11.2 L (11.4-16.0) gm/dL MCV (80.0-100.0) fL MCHC (31.0-37.0) g/dL Neutrophils # 21.8 H (1.3-7.7) k/uL Lymphocytes # 0.9 L (1.0-4.8) k/uL Sodium 136 L (137-145) mmol/L Potassium 3.2 L (3.5-5.1) mmol/L Chloride 110 H (98-107) mmol/L Carbon Dioxide (22-30) mmol/L BUN 23 H (7-17) mg/dL Creatinine 0.28 L (0.52-1.04) mg/dL Glucose 138 H (74-99) mg/dL POC Glucose (mg/dL) 397 H (70-110) mg/dL Calcium 8.3 L (8.4-10.2) mg/dL Alkaline Phosphatase 206 H (38-126) U/L Total Protein 4.5 L (6.3-8.2) g/dL Albumin 2.2 L (3.5-5.0) g/dL 02/15/24 Range/Units 06:37 WBC (3.8-10.6) k/uL RBC (3.80-5.40) m/uL Hgb (11.4-16.0) gm/dL MCV (80.0-100.0) fL MCHC (31.0-37.0) g/dL Neutrophils # (1.3-7.7) k/uL Lymphocytes # (1.0-4.8) k/uL Sodium (137-145) mmol/L Potassium (3.5-5.1) mmol/L Chloride (98-107) mmol/L Carbon Dioxide (22-30) mmol/L BUN (7-17) mg/dL Creatinine (0.52-1.04) mg/dL Glucose (74-99) mg/dL POC Glucose (mg/dL) 238 H (70-110) mg/dL Calcium (8.4-10.2) mg/dL Alkaline Phosphatase (38-126) U/L Total Protein (6.3-8.2) g/dL Albumin (3.5-5.0) g/dL Microbiology - Last 24 Hours (Table) 02/11/24 14:20 Blood Culture Gram Stain - Final Blood Blood Culture - Final Sarah albicans Molecular ID Assessment and Plan Plan: Acute hypoxic respiratory failure currently on 5-6 L of oxygen by nasal cannula CTA of the chest shows no evidence of any pulmonary embolism. Extensive atelectatic changes in lung base bilaterally right more than left with small pleural effusions. Consider aspiration. The patient remains on Zosyn. Patient also has recommended pragmatic elevation and atelectatic change in lung base bilaterally. The patient does have elevation of the right hemidiaphragm. There is atelectatic change in lung bases. No signs of any respite distress at this point in time. Systemic fungemia with Asrah albicans in the blood, urine and the source cannot be completely ruled out, and the patient is currently on IV Diflucan. Constipation and fecaloma in the rectum, awaiting colonoscopy for decompression, patient encountered some rectal bleeding following the colonoscopy and this has subsided Leukocytosis, stable at 23 COPD Diabetes mellitus type 2 Hypertension Hyperlipidemia Chronic urinary retention maintained on a chronic indwelling Horn catheter, urine culture was also positive for Sarah Weight loss, unexplained Compression fracture of the spine Stage II sacral decub ulcer Significant debility and impaired performance and functional status and the patient is currently unable to ambulate and she has been essentially chair/bedbo und for the past month or so. Frequent falls, hospitalized at [facility]. Plan Patient completed decompression colonoscopy for constipation and rectal fecaloma No evidence of any GI bleeding Monitor the white cell count Repeat blood cultures, Of concern is the systemic candidemia, results are still pending for now Patient remains on a combination of Zosyn and Diflucan for now Source of the systemic candidemia is most likely a urinary source as the patient had a chronically indwelling Horn catheter in place with frequent hospitalizations. GI source is felt to be less likely. The patient is currently on Diflucan. CAT scan of the abdomen and pelvis was noted Continue lactulose 20 g p.o. 3 times daily Levemir insulin 5 units along with NovoLog 3 units with meals Continue Actos Prednisone 20 mg p.o. daily as part of the burst taper ID is on the case General surgery is on the case Will continue to follow The patient can be transferred to medical surgical floor. Physical therapy and encourage use of incentive spirometer.
--- NOTE | 2024-02-15 14:19 | PN ---
PROGRESS NOTE SUBJECTIVE: This is a 63-year-old white female, status post PICC line removal from the colon with GI bleeding in ICU overnight. She is on Levemir 5 units at home and NovoLog 3 units t.i.d. She is on Actos in addition to Levemir insulin. She is profoundly weak. OBJECTIVE: VITAL SIGNS: Blood pressure is 113/67, O2 92, pulse 84, respiratory rate 18 to 20, temperature 97.5. CARDIOVASCULAR: S1, S2. LUNGS: Decreased breath sounds. ABDOMEN: Soft. EXTREMITIES: No cyanosis, clubbing, or edema. SKIN: Without rash or excoriations. LABORATORY DATA: White count is 23.7, hemoglobin is 11.2, BUN is 23, creatinine 0.68. ASSESSMENT: Acute hypoxemic respiratory failure, remains on 5 to 6 L oxygen by nasal cannula. CT of the chest shows no evidence of pulmonary embolism, atelectasis, pleural effusion, aspiration, stage II decubitus ulcers and status post GI bleeding, compression fracture of spine, Sarah bacteremia. She completed decompressive colonoscopy for constipation for rectal fecaloma. Repeat blood cultures, systemic candidemia, combination of Zosyn, Diflucan. Source of systemic , as noted, lactulose 20 g t.i.d., insulin 5 units NovoLog with meals. Continue Actos. Prognosis is guarded. Continue to monitor blood cultures. White count still elevated at 23, which was 21 yesterday. Hypokalemia will have to be addressed. Sarah fungemia is being treated. Protein-calorie malnutrition. Prognosis guarded. Condition stable. Respiratory rate increased. She is on high-flow oxygen from 85 to 95. Wait for repeat blood cultures. Prognosis is guarded. Sarah albicans. Continue current treatment. Please see further orders. MMODL / IJN: [id number] /
--- NOTE | 2024-02-15 14:45 | P.PN ---
Subjective Progress Note Date: 02/15/24 Principal diagnosis: Fecal impaction Patient doing somewhat better today. Denies pain at this time. No further bleeding. No significant bowel movements overnight. Objective - Vital Signs Vital signs: Vital Signs Temp 97.8 F 02/15/24 11:37 Pulse 82 02/15/24 12:05 Resp 28 H 02/15/24 12:16 BP 128/74 02/15/24 11:37 Pulse Ox 95 02/15/24 12:16 FiO2 Intake & Output 02/14/24 02/15/24 02/15/24 18:59 06:59 18:59 Intake Total 600 388 Output Total 1400 Balance 600 -1400 388 Weight 50.8 kg 50.8 kg Intake: IV 600 30 Invasive Line 4 30 Oral 358 Output: Urine 1400 Other: Voiding Method Indwelling Catheter Indwelling Catheter Indwelling Catheter # Bowel Movements 1 1 - Exam Abdomen: Soft, nontender, nondistended - Labs CBC & Chem 7: 02/15/24 06:09 02/15/24 12:30 Labs: Abnormal Lab Results - Last 24 Hours (Table) 02/14/24 02/14/24 02/14/24 Range/Units 16:48 16:48 20:29 WBC 23.4 H (3.8-10.6) k/uL RBC (3.80-5.40) m/uL Hgb (11.4-16.0) gm/dL MCV 102.1 H (80.0-100.0) fL MCHC 30.7 L (31.0-37.0) g/dL Neutrophils # 22.6 H (1.3-7.7) k/uL Lymphocytes # 0.4 L (1.0-4.8) k/uL Sodium 135 L (137-145) mmol/L Potassium (3.5-5.1) mmol/L Chloride 108 H (98-107) mmol/L Carbon Dioxide 21 L (22-30) mmol/L BUN 23 H (7-17) mg/dL Creatinine 0.33 L (0.52-1.04) mg/dL Glucose 267 H (74-99) mg/dL POC Glucose (mg/dL) 397 H (70-110) mg/dL Calcium 8.3 L (8.4-10.2) mg/dL Alkaline Phosphatase 240 H (38-126) U/L Total Protein 4.7 L (6.3-8.2) g/dL Albumin 2.4 L (3.5-5.0) g/dL Stool Occult Blood (Negative) 02/15/24 02/15/24 02/15/24 Range/Units 05:30 06:09 06:09 WBC 23.7 H (3.8-10.6) k/uL RBC 3.63 L (3.80-5.40) m/uL Hgb 11.2 L (11.4-16.0) gm/dL MCV (80.0-100.0) fL MCHC (31.0-37.0) g/dL Neutrophils # 21.8 H (1.3-7.7) k/uL Lymphocytes # 0.9 L (1.0-4.8) k/uL Sodium 136 L (137-145) mmol/L Potassium 3.2 L (3.5-5.1) mmol/L Chloride 110 H (98-107) mmol/L Carbon Dioxide (22-30) mmol/L BUN 23 H (7-17) mg/dL Creatinine 0.28 L (0.52-1.04) mg/dL Glucose 138 H (74-99) mg/dL POC Glucose (mg/dL) (70-110) mg/dL Calcium 8.3 L (8.4-10.2) mg/dL Alkaline Phosphatase 206 H (38-126) U/L Total Protein 4.5 L (6.3-8.2) g/dL Albumin 2.2 L (3.5-5.0) g/dL Stool Occult Blood Positive H (Negative) 02/15/24 02/15/24 02/15/24 Range/Units 06:37 11:33 12:30 WBC (3.8-10.6) k/uL RBC (3.80-5.40) m/uL Hgb (11.4-16.0) gm/dL MCV (80.0-100.0) fL MCHC (31.0-37.0) g/dL Neutrophils # (1.3-7.7) k/uL Lymphocytes # (1.0-4.8) k/uL Sodium (137-145) mmol/L Potassium 3.2 L (3.5-5.1) mmol/L Chloride (98-107) mmol/L Carbon Dioxide (22-30) mmol/L BUN (7-17) mg/dL Creatinine (0.52-1.04) mg/dL Glucose (74-99) mg/dL POC Glucose (mg/dL) 238 H 207 H (70-110) mg/dL Calcium (8.4-10.2) mg/dL Alkaline Phosphatase (38-126) U/L Total Protein (6.3-8.2) g/dL Albumin (3.5-5.0) g/dL Stool Occult Blood (Negative) Microbiology - Last 24 Hours (Table) 02/14/24 06:01 Blood Culture - Preliminary Blood 02/11/24 14:20 Blood Culture Gram Stain - Final Blood Blood Culture - Final Sarah albicans Molecular ID Assessment and Plan (1) Fecal impaction in rectum Narrative/Plan: No further rectal bleeding at this time. Recommend initiation of GoLytely today to assist with full bowel cleansing. Monitor for recurrent bleeding. Current Visit: Yes Status: Acute Code(s): K56.41 - FECAL IMPACTION SNOMED Code(s): 1440514754
--- NOTE | 2024-02-15 16:05 | P.PN ---
Subjective Progress Note Date: 02/15/24 Principal diagnosis: Reason for follow-up is UTI question of pneumonia and a sacral pressure ulcer Patient is a 63-year-old female with a past medical history significan t for diabetes mellitus hypertension hyperlipidemia COPD current everyday smoker, recent multiple admission to the [facility] for UTI followed with the compression fracture of the spine and hypoglycemia has been brought in to [facility] for evaluation of increasing shortness of breath did have abnormal CT angiogram of the chest concerning for effusion atelectasis positive UA concerning for UTI and the patient also have a sacral pressure ulcer. On today's evaluation that is 02/15/2024, the patient continues to be afebrile, the patient is on 10 L high flow oxygen however breathing comfortably, the Pt denies having any chest pain or cough, the patient denies having any abdominal pain no vomiting or any further bleeding per rectum. Patient white count is 23.7, creatinine 0.28 blood culture repeat currently pending Objective - Vital Signs Vital signs: Vital Signs Temp 97.8 F 02/15/24 11:37 Pulse 82 02/15/24 12:05 Resp 28 H 02/15/24 12:16 BP 128/74 02/15/24 11:37 Pulse Ox 95 02/15/24 12:16 FiO2 Intake & Output 02/14/24 02/15/24 02/15/24 18:59 06:59 18:59 Intake Total 600 378 Output Total 1400 Balance 600 -1400 378 Weight 50.8 kg Intake: IV 600 20 Invasive Line 4 20 Oral 358 Output: Urine 1400 Other: Voiding Method Indwelling Catheter Indwelling Catheter Indwelling Catheter # Bowel Movements 1 1 - Exam GENERAL DESCRIPTION: Middle-aged female lying in bed in no distress RESPIRATORY SYSTEM: Unlabored breathing , decreased breath sounds at bases HEART: S1 S2 regular rate and rhythm , ABDOMEN: Soft , no tenderness EXTREMITIES: No edema feet - Labs CBC & Chem 7: 02/15/24 06:09 02/15/24 12:30 Labs: Abnormal Lab Results - Last 24 Hours (Table) 02/14/24 02/14/24 02/14/24 Range/Units 16:48 16:48 20:29 WBC 23.4 H (3.8-10.6) k/uL RBC (3.80-5.40) m/uL Hgb (11.4-16.0) gm/dL MCV 102.1 H (80.0-100.0) fL MCHC 30.7 L (31.0-37.0) g/dL Neutrophils # 22.6 H (1.3-7.7) k/uL Lymphocytes # 0.4 L (1.0-4.8) k/uL Sodium 135 L (137-145) mmol/L Potassium (3.5-5.1) mmol/L Chloride 108 H (98-107) mmol/L Carbon Dioxide 21 L (22-30) mmol/L BUN 23 H (7-17) mg/dL Creatinine 0.33 L (0.52-1.04) mg/dL Glucose 267 H (74-99) mg/dL POC Glucose (mg/dL) 397 H (70-110) mg/dL Calcium 8.3 L (8.4-10.2) mg/dL Alkaline Phosphatase 240 H (38-126) U/L Total Protein 4.7 L (6.3-8.2) g/dL Albumin 2.4 L (3.5-5.0) g/dL Stool Occult Blood (Negative) 02/15/24 02/15/24 02/15/24 Range/Units 05:30 06:09 06:09 WBC 23.7 H (3.8-10.6) k/uL RBC 3.63 L (3.80-5.40) m/uL Hgb 11.2 L (11.4-16.0) gm/dL MCV (80.0-100.0) fL MCHC (31.0-37.0) g/dL Neutrophils # 21.8 H (1.3-7.7) k/uL Lymphocytes # 0.9 L (1.0-4.8) k/uL Sodium 136 L (137-145) mmol/L Potassium 3.2 L (3.5-5.1) mmol/L Chloride 110 H (98-107) mmol/L Carbon Dioxide (22-30) mmol/L BUN 23 H (7-17) mg/dL Creatinine 0.28 L (0.52-1.04) mg/dL Glucose 138 H (74-99) mg/dL POC Glucose (mg/dL) (70-110) mg/dL Calcium 8.3 L (8.4-10.2) mg/dL Alkaline Phosphatase 206 H (38-126) U/L Total Protein 4.5 L (6.3-8.2) g/dL Albumin 2.2 L (3.5-5.0) g/dL Stool Occult Blood Positive H (Negative) 02/15/24 02/15/24 Range/Units 06:37 11:33 WBC (3.8-10.6) k/uL RBC (3.80-5.40) m/uL Hgb (11.4-16.0) gm/dL MCV (80.0-100.0) fL MCHC (31.0-37.0) g/dL Neutrophils # (1.3-7.7) k/uL Lymphocytes # (1.0-4.8) k/uL Sodium (137-145) mmol/L Potassium (3.5-5.1) mmol/L Chloride (98-107) mmol/L Carbon Dioxide (22-30) mmol/L BUN (7-17) mg/dL Creatinine (0.52-1.04) mg/dL Glucose (74-99) mg/dL POC Glucose (mg/dL) 238 H 207 H (70-110) mg/dL Calcium (8.4-10.2) mg/dL Alkaline Phosphatase (38-126) U/L Total Protein (6.3-8.2) g/dL Albumin (3.5-5.0) g/dL Stool Occult Blood (Negative) Microbiology - Last 24 Hours (Table) 02/14/24 06:01 Blood Culture - Preliminary Blood 02/11/24 14:20 Blood Culture Gram Stain - Final Blood Blood Culture - Final Sarah albicans Molecular ID Assessment and Plan (1) Stage III pressure ulcer of sacral region Current Visit: Yes Status: Acute Code(s): L89.153 - PRESSURE ULCER OF SACRAL REGION, STAGE 3 SNOMED Code(s): 97826638587169 (2) Urinary tract infection Current Visit: Yes Status: Acute Code(s): N39.0 - URINARY TRACT INFECTION, SITE NOT SPECIFIED SNOMED Code(s): 74884077 (3) Aspiration pneumonia Current Visit: Yes Status: Acute Code(s): J69.0 - PNEUMONITIS DUE TO INHALATION OF FOOD AND VOMIT SNOMED Code(s): 655669254 (4) Candidemia Current Visit: Yes Status: Acute Code(s): B37.7 - CANDIDAL SEPSIS SNOMED Code(s): 977897391 Plan: 1patient with worsening of the white count no bowel movement for the last 4 to 5 days, patient did have CT abdominal pelvis CT shows large stool burden throughout the colon with 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 please excuse any grammatical, word or spelling errors. Time with Patient: Less than 30
[2024-02-15 16:34] LABS: Glucose,Whole Blood 225 mg/dL (70-110)
[2024-02-15 20:32] LABS: Glucose,Whole Blood 295 mg/dL (70-110)
[2024-02-15] MEDS: BUDESONIDE 1 MG/2 ML NEBU INHALATION SCH (21:44)
--- NOTE | 2024-02-15 22:10 | PN ---
PROGRESS NOTE SUBJECTIVE: The patient seen by Dr. Washburn, status post fecaloma removal and severe rectal bleeding after the fecaloma removal. Blood pressure is 128/74, respiratory rate 20 to 28, temp 97.8, pulse 80 to 82. Doing better with fecal impaction, she feels better. White cell count as high as 23.7, hemoglobin is 11.2, potassium 3.2. She is on more oxygen up to 8 to 10 L, will try to wean that down over the next day or 2. Status post fecaloma surgical removal. Dr. Pathak seen had her for leukocytosis for COPD, UTI, possible aspiration pneumonia, stage III pressure ulcer sacral region. Remains on Zosyn. Candidemia positive, which repeat so far is negative on the blood culture. She is on Zosyn, diflucan. Watch for next 24 to 48 hours, wean down her oxygen, then possible rehab center. Watch the white count if it comes down low as it has been high for multiple days. MMODL / IJN: [id number] /
[2024-02-16 06:07] LABS: Glucose,Whole Blood 130 mg/dL (70-110)
--- NOTE | 2024-02-16 08:28 | XR ---
EXAMINATION TYPE: XR chest 1V portable DATE OF EXAM: 02/16/2024 6:37 AM CLINICAL INDICATION:Female, 63 years old with history of acute hypoxemic respiratory failure; [facility] COMPARISON: Chest radiographs from 02/15/2024. TECHNIQUE: XR chest 1V portable Frontal view of the chest. FINDINGS: Lungs/Pleura: Similar elevated right diaphragm with associated atelectasis. Diffuse haziness of lungs likely secondary to technique. There is no evidence of pleural effusion, focal consolidation, or pne umothorax. Pulmonary vascularity: Unremarkable. Heart/mediastinum: Cardiomediastinal silhouette is unremarkable. Musculoskeletal: No acute osseous pathology. IMPRESSION: Elevated right diaphragm with associated atelectasis with possible pleural effusions..
[2024-02-16 10:46] LABS: Basophils % (A) 0 %; Eosinophils # (A) 0.1 k/uL (0-0.7); Eosinophils % (A) 0 %; HCT 33.6 % (34.0-46.0); HGB 10.9 gm/dL (11.4-16.0); Lymphocytes # (A) 0.5 k/uL (1.0-4.8); Lymphocytes % (A) 3 %; MCH 32.3 pg (25.0-35.0); MCHC 32.5 g/dL (31.0-37.0); MCV 99.3 fL (80.0-100.0); Mean Platelet Volume 7.9; Monocytes # (A) 0.4 k/uL (0-1.0); Monocytes % (A) 2 %; Neutrophils # (A) 17.2 k/uL (1.3-7.7); Neutrophils % (A) 94 %; Platelet Count 232 k/uL (150-450); RBC 3.39 m/uL (3.80-5.40); RDW 14.1 % (11.5-15.5); WBC 18.2 k/uL (3.8-10.6)
[2024-02-16 11:17] LABS: ALT 18 U/L (4-34); AST 24 U/L (14-36); African American GFR (CKD) >90 (>60 ml/min/1.73 sqM); Albumin 2.2 g/dL (3.5-5.0); Alkaline Phosphatase 259 U/L (38-126); Anion Gap 0 mmol/L; Blood Urea Nitrogen 20 mg/dL (7-17); Carbon Dioxide 27 mmol/L (22-30); Chloride 107 mmol/L (98-107); Glucose 178 mg/dL (74-99); Non-African American GFR(CKD) >90 (>60 ml/min/1.73 sqM); Potassium 4.1 mmol/L (3.5-5.1); Sodium 134 mmol/L (137-145); Total Bilirubin 0.4 mg/dL (0.2-1.3); Total Protein 4.4 g/dL (6.3-8.2)
[2024-02-16 11:21] LABS: Glucose,Whole Blood 235 mg/dL (70-110)
[2024-02-16] MEDS: FUROSEMIDE 10 MG/ML 4 ML VIAL IV STA (12:56)
[2024-02-16] MEDS: PEG 3350 (236 GM/BTL) + LYTES 4,000 ML BOTTLE PO ONE (13:35)
--- NOTE | 2024-02-16 14:53 | P.PN ---
Subjective Progress Note Date: 02/16/24 CHIEF COMPLAINT: Fecal impaction HISTORY OF PRESENT ILLNESS: Patient is status post disimpaction on 02/14/2024 patient has had no further rectal bleeding. Denies any abdominal pain. She reports she has had bowel movements. She is tolerating diet. Afebrile. Hemoglobin is down from 11.2-10.9 WBC is down from 23-18.2. Stool for C. difficile negative PHYSICAL EXAM: VITAL SIGNS: Reviewed. GENERAL: Well-developed in no acute distress. ABDOMEN: Soft. Nondistended. Nontender. NEUROLOGIC: Alert and oriented. Cranial nerves II through XII grossly intact. ASSESSMENT: 1. Fecal impaction PLAN: -Patient has had no further rectal bleeding. Will initiate GoLytely to assist for full bowel cleansing -Continue to monitor for any recurrent bleeding Physician Hide Trimmer note has been reviewed by physician. Signing provider agrees with the documented findings, assessment, and plan of care. Objective - Vital Signs Vital signs: Vital Signs Temp 98 F 02/16/24 08:00 Pulse 100 02/16/24 12:27 Resp 18 02/16/24 08:40 BP 116/60 02/16/24 08:00 Pulse Ox 93 L 02/16/24 08:00 FiO2 Intake & Output 02/15/24 02/16/24 02/16/24 18:59 06:59 18:59 Intake Total 1764 340 0 Output Total 100 750 Balance 1664 -410 0 Weight 50.8 kg Intake: IV 330 100 Fluconazole in NaCl,Iso- 200 Osm 400 mg In Saline 1 200ml.bag @ 100 mls/hr IVPB DAILY KARINA Rx#: [id number] Invasive Line 4 30 Piperacillin-Tazobactam 3 100 100 .375 gm In Sodium Chloride 0.9% 100 ml @ 25 mls/hr IVPB Q8HR KARINA Rx# :[id number] Oral 1434 240 0 Output: Urine 100 750 Other: Voiding Method Indwelling Catheter Indwelling Catheter Indwelling Catheter # Bowel Movements 1 1 - Labs CBC & Chem 7: 02/16/24 09:39 02/16/24 09:39 Labs: Abnormal Lab Results - Last 24 Hours (Table) 02/15/24 02/15/24 02/16/24 Range/Units 16:33 20:31 06:05 WBC (3.8-10.6) k/uL RBC (3.80-5.40) m/uL Hgb (11.4-16.0) gm/dL Hct (34.0-46.0) % Neutrophils # (1.3-7.7) k/uL Lymphocytes # (1.0-4.8) k/uL Sodium (137-145) mmol/L BUN (7-17) mg/dL Creatinine (0.52-1.04) mg/dL Glucose (74-99) mg/dL POC Glucose (mg/dL) 225 H 295 H 130 H (70-110) mg/dL Calcium (8.4-10.2) mg/dL Alkaline Phosphatase (38-126) U/L Total Protein (6.3-8.2) g/dL Albumin (3.5-5.0) g/dL 02/16/24 02/16/24 02/16/24 Range/Units 09:39 09:39 11:20 WBC 18.2 H (3.8-10.6) k/uL RBC 3.39 L (3.80-5.40) m/uL Hgb 10.9 L (11.4-16.0) gm/dL Hct 33.6 L (34.0-46.0) % Neutrophils # 17.2 H (1.3-7.7) k/uL Lymphocytes # 0.5 L (1.0-4.8) k/uL Sodium 134 L (137-145) mmol/L BUN 20 H (7-17) mg/dL Creatinine 0.27 L (0.52-1.04) mg/dL Glucose 178 H (74-99) mg/dL POC Glucose (mg/dL) 235 H (70-110) mg/dL Calcium 8.0 L (8.4-10.2) mg/dL Alkaline Phosphatase 259 H (38-126) U/L Total Protein 4.4 L (6.3-8.2) g/dL Albumin 2.2 L (3.5-5.0) g/dL Microbiology - Last 24 Hours (Table) 02/14/24 06:01 Blood Culture - Preliminary Blood
--- NOTE | 2024-02-16 15:03 | P.PN ---
Subjective Progress Note Date: 02/16/24 On 02/14/2024, the patient is being seen for a follow-up. This patient was initially hospitalized on 01/30/2024 and the patient has been in the hospital since. The patient is known to have COPD and diabetes mellitus and she is a chronic smoker and she has a chronic indwelling Horn catheter in place that was placed in a previous hospitalization at [facility]. The patient during this current hospital stay was treated for hypoxic respiratory failure and the CAT scan of the chest that was done at time of admission showed no evidence of any pulmonary embolism and there was extensive atelectatic change the lung base bilaterally right more than left with bilateral pleural effusion and the patient was covered with IV Zosyn. In addition to COPD, she is known to have hypertension hyperlipidemia and diabetes mellitus type 2 and chronic urinary retention and the patient has a Horn catheter in place and she has sustained compression fractures of her spine and she has significant debility impaired performance and functional status and she has been essentially bedbound for the past few months. She has had previous episodes of fall and sacral decubitus ulceration. The patient currently is having issues with constipation. The patient was supposed to go and have a decompression colonoscopy by general surgery today. The patient is also having issues with persistent leukocytosis. During this current admission, the patient's white cell count gradually went up and currently is up to 31. There is a positive blood culture with Saarh albicans from 02/11/2024 and urine culture was also positive for Sarah not albicans species. Patient is currently being seen by infectious disease. The patient is currently on IV Zosyn and IV Diflucan. He is on 5 L of oxygen by nasal cannula with a pulse ox of 95%. She is currently afebrile. Infectious disease on the case and the patient is referred to a WBC tagged scan. 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 Most recent chest x- ray from 02/13/2024 shows similar-appearing atelectatic changes in an elevation of the right hemidiaphragm. On 02/15/2024, the patient is being seen for a follow-up. Clinically stable and hemodynamically stable. She remains on 6 of oxygen by nasal cannula with a pulse ox of 88 to 92%. Hemodynamically stable. No fever or chills. Remains on Diflucan. Results of the follow-up blood cultures still pending for now. Noted the patient had positive systemic candidemia with positive blood cultures with Sarah albicans. Remains on IV Diflucan. No evidence of any active GI bleeding. She is stooling. She is post colonoscopy and decompression of rectal fecaloma. The white cell count 23.7 with a hemoglobin 11.2 and a platelet count of 291. BUN is 23 with a creatinine of 0.2 and a sodium level of 136 and a potassium level is at 3.2. Potassium level is being replaced. She remains on bronchodilators patient remains on prednisone currently at a dose of 20 mg p.o. daily. She is on IV Zosyn. She is on lactulose 20 g 3 times daily. She is on Levemir insulin 5 units along with NovoLog 3 units with meals. She is on Actos in addition to Levemir insulin. No other complaints. No nausea. No emesis. No abdominal pain. No chest pain. Profoundly weak. On 02/16/2024, I am seeing the patient for a follow-up. The patient was tr ansferred out of the intensive care unit yesterday. She is calm and comfortable on 60s of oxygen by nasal cannula. I encouraged her to use incentive spirometer. No evidence of any GI bleeding and the patient is stooling for now. Hemoglobin stable at 10.9 with a WBC count of 18.2 which is improved compared to yesterday and a platelet count of 232. While using incentive spirometer, she is pulling approximately 750 cc. BUN is at 20 with a creatinine of 0.27 and sodium levels at 134. Rest of the treatment remains essentially unchanged. She remains on IV Diflucan. She remains on IV Zosyn. The repeat blood cultures from 02/14/2024 has shown no microbial or fungal growth. She is afebrile. She is hemodynamically stable at this point in time. Objective - Vital Signs Vital signs: Vital Signs Temp 98 F 02/16/24 08:00 Pulse 86 02/16/24 08:08 Resp 18 02/16/24 08:00 BP 116/60 02/16/24 08:00 Pulse Ox 93 L 02/16/24 08:00 FiO2 Intake & Output 02/15/24 02/16/24 02/16/24 18:59 06:59 18:59 Intake Total 1764 340 0 Output Total 100 750 Balance 1664 -410 0 Weight 50.8 kg Intake: IV 330 100 Fluconazole in NaCl,Iso- 200 Osm 400 mg In Saline 1 200ml.bag @ 100 mls/hr IVPB DAILY KARINA Rx#: [id number] Invasive Line 4 30 Piperacillin-Tazobactam 3 100 100 .375 gm In Sodium Chloride 0.9% 100 ml @ 25 mls/hr IVPB Q8HR KARINA Rx# :[id number] Oral 1434 240 0 Output: Urine 100 750 Other: Voiding Method Indwelling Catheter Indwelling Catheter # Bowel Movements 1 1 - Exam No acute distress, oriented 3. No respiratory distress. Currently on 5 L of oxygen by nasal cannula HEENT examination is grossly unremarkable. Mucous membranes are moist. No oral lesions. Neck supple. Full range of motion. No adenopathy thyromegaly or neck vein distention. Cardiovascular examination reveals regular rhythm rate. S1-S2 normal. No S3 or S4. No discernible murmur noted. Heart sounds are distant. Lungs reveal mild scattered rhonchi. No wheezes or crackles. Breath sounds equal. Diminished breath sound lung base bilaterally Abdomen soft bowel sounds are heard. No masses or tenderness. Extremities are intact. No cyanosis clubbing or edema. Skin is without rash or lesion. Neurologic examination is brief but nonfocal. - Labs CBC & Chem 7: 02/16/24 09:39 02/16/24 09:39 Labs: Abnormal Lab Results - Last 24 Hours (Table) 02/15/24 02/15/24 02/15/24 Range/Units 05:30 11:33 12:30 Potassium 3.2 L (3.5-5.1) mmol/L POC Glucose (mg/dL) 207 H (70-110) mg/dL Stool Occult Blood Positive H (Negative) 02/15/24 02/15/24 02/16/24 Range/Units 16:33 20:31 06:05 Potassium (3.5-5.1) mmol/L POC Glucose (mg/dL) 225 H 295 H 130 H (70-110) mg/dL Stool Occult Blood (Negative) Microbiology - Last 24 Hours (Table) 02/14/24 06:01 Blood Culture - Preliminary Blood Assessment and Plan Plan: Acute hypoxic respiratory failure currently on 5-6 L of oxygen by nasal cannula CTA of the chest shows no evidence of any pulmonary embolism. Extensive atelectatic changes in lung base bilaterally right more than left with small pl eural effusions. Consider aspiration. The patient remains on Zosyn. Patient also has recommended pragmatic elevation and atelectatic change in lung base bilaterally. The patient does have elevation of the right hemidiaphragm. There is atelectatic change in lung bases. No signs of any respite distress at this point in time. Overall respiratory status is unchanged. Will encourage use of incentive spirometer. Systemic fungemia with Sarah albicans in the blood, urine and the source cannot be completely ruled out, and the patient is currently on IV Diflucan. Repeat blood culture from 02/14/2024 has shown no bacterial or fungal growth. The patient remains on IV Diflucan. Constipation and fecaloma in the rectum, awaiting colonoscopy for decompression, patient encountered some rectal bleeding following the colonoscopy and this has subsided, the patient continues to stool. Leukocytosis, white cell count is improving slowly and is currently down to 18. COPD Diabetes mellitus type 2 Hypertension Hyperlipidemia Chronic urinary retention maintained on a chronic indwelling Horn catheter, urine culture was also positive for Sarah Weight loss, unexplained Compression fracture of the spine Stage II sacral decub ulcer Significant debility and impaired performance and functional status and the patient is currently unable to ambulate and she has been essentially chair/bed bound for the past month or so. Frequent falls, hospitalized at [facility]. Plan Oxygenation is stable at 6 L of oxygen nasal cannula Continue using the incentive spirometer Patient completed decompression colonoscopy for constipation and rectal fecaloma No evidence of any GI bleeding, hemoglobin is stable Monitor the white cell count, improving and the level is down to 18 Repeat blood cultures, Of concern is the systemic candidemia, results are still pending for now, negative based on the culture that was obtained on 02/14/2024 Patient remains on a combination of Zosyn and Diflucan for now Source of the systemic candidemia is most likely a urinary source as the patient had a chronically indwelling Horn catheter in place with frequent hospitalizations. GI source is felt to be less likely. The patient is currently on Diflucan. CAT scan of the abdomen and pelvis was noted Continue lactulose 20 g p.o. 3 times daily Levemir insulin 5 units along with NovoLog 3 units with meals Continue Actos Prednisone 20 mg p.o. daily as part of the burst taper ID is on the case General surgery is on the case Will continue to follow The patient can be transferred to medical surgical floor. Physical therapy and encourage use of incentive spirometer.
[2024-02-16 16:26] LABS: Glucose,Whole Blood 329 mg/dL (70-110)
[2024-02-16 20:56] LABS: Glucose,Whole Blood 226 mg/dL (70-110)
--- NOTE | 2024-02-17 05:06 | PN ---
PROGRESS NOTE Her white count is down to 18.2 status post fecaloma removal. Her hemoglobin is 10.9. Sodium 134, potassium is 4.1. Sugars are mid 200s. Albumin is 2.2. Positive Sarah in the blood culture, repeat is negative so far for 48 hours, so to wait a few more days until that comes back negative. She is being treated for infections. She had a chest x-ray today, atelectasis, pleural effusions. Seen by surgery. No further rectal bleeding. Initiate GoLYTELY for full bowel cleansing. She is much better. White count is improving. She possibly should need PT/OT, possibly go home in the next day or two to rehab center. She is to wean her down on her oxygen. She is still at high- flow nasal cannula 6 L. She is on DuoNeb q.i.d., Pulmicort b.i.d., acute hypoxemic respiratory distress, Sarah bacteremia. The patient is seen by Dr. Pathak and by pulmonology. Possibly go home next couple days to rehab center as her white count is finally improving, status post fecaloma removal. Some kind of bowel management program will have to be set up for the patient for home to prevent fecalomas in the future. Prognosis is extremely guarded. MMODL / IJN: [id number] /
[2024-02-17 05:59] LABS: Glucose,Whole Blood 80 mg/dL (70-110)
--- NOTE | 2024-02-17 09:21 | XR ---
EXAMINATION TYPE: XR chest 1V portable DATE OF EXAM: 02/17/2024 6:55 AM CLINICAL INDICATION:Female, 64 years old with history of acute hypoxemic respiratory failure; COMPARISON: Chest radiographs from 02/16/2024 TECHNIQUE: XR chest 1V portable Frontal view of the chest. FINDINGS: Lungs/Pleura: Decreased right pleural effusion with increased aeration of the right lung. There is no evidence of left pleural effusion, focal consolidation, or pneumothorax. Pulmonary vascularity: Unremarkable. Heart/mediastinum: Cardiomediastinal silhouette is unremarkable. Musculoskeletal: No acute osseous pathology. IMPRESSION: Decrease in right sided pleural effusion. Improved aeration of the lungs.
[2024-02-17 11:05] LABS: Glucose,Whole Blood 189 mg/dL (70-110)
[2024-02-17 11:14] LABS: Basophils % (A) 0 %; Eosinophils # (A) 0.1 k/uL (0-0.7); Eosinophils % (A) 0 %; HCT 34.7 % (34.0-46.0); HGB 11.4 gm/dL (11.4-16.0); Lymphocytes # (A) 0.8 k/uL (1.0-4.8); Lymphocytes % (A) 5 %; MCH 32.3 pg (25.0-35.0); MCHC 32.9 g/dL (31.0-37.0); MCV 98.1 fL (80.0-100.0); Mean Platelet Volume 8.2; Monocytes # (A) 0.4 k/uL (0-1.0); Monocytes % (A) 2 %; Neutrophils # (A) 15.3 k/uL (1.3-7.7); Neutrophils % (A) 92 %; Platelet Count 206 k/uL (150-450); RBC 3.54 m/uL (3.80-5.40); RDW 14.3 % (11.5-15.5); WBC 16.7 k/uL (3.8-10.6)
[2024-02-17 11:19] LABS: ALT 19 U/L (4-34); AST 24 U/L (14-36); African American GFR (CKD) >90 (>60 ml/min/1.73 sqM); Albumin 2.4 g/dL (3.5-5.0); Alkaline Phosphatase 251 U/L (38-126); Anion Gap 0 mmol/L; Blood Urea Nitrogen 16 mg/dL (7-17); Calcium 7.9 mg/dL (8.4-10.2); Carbon Dioxide 28 mmol/L (22-30); Chloride 105 mmol/L (98-107); Glucose 110 mg/dL (74-99); Non-African American GFR(CKD) >90 (>60 ml/min/1.73 sqM); Potassium 3.6 mmol/L (3.5-5.1); Sodium 133 mmol/L (137-145); Total Bilirubin 0.3 mg/dL (0.2-1.3); Total Protein 4.7 g/dL (6.3-8.2)
--- NOTE | 2024-02-17 14:06 | P.PN ---
Subjective Progress Note Date: 02/17/24 On 02/14/2024, the patient is being seen for a follow-up. This patient was initially hospitalized on 01/30/2024 and the patient has been in the hospital since. The patient is known to have COPD and diabetes mellitus and she is a chronic smoker and she has a chronic indwelling Horn catheter in place that was placed in a previous hospitalization at [facility]. The patient during this current hospital stay was treated for hypoxic respiratory failure and the CAT scan of the chest that was done at time of admission showed no evidence of any pulmonary embolism and there was extensive atelectatic change the lung base bilaterally right more than left with bilateral pleural effusion and the patient was covered with IV Zosyn. In addition to COPD, she is known to have hypertension hyperlipidemia and diabetes mellitus type 2 and chronic urinary retention and the patient has a Horn catheter in place and she has sustained compression fractures of her spine and she has significant debility impaired performance and functional status and she has been essentially bedbound for the past few months. She has had previous episodes of fall and sacral decubitus ulceration. The patient currently is having issues with constipation. The patient was supposed to go and have a decompression colonoscopy by general surgery today. The patient is also having issues with persistent leukocytosis. During this current admission, the patient's white cell count gradually went up and currently is up to 31. There is a positive blood culture with Sarah albicans from 02/11/2024 and urine culture was also positive for Sarah not albicans species. Patient is currently being seen by infectious disease. The patient is currently on IV Zosyn and IV Diflucan. He is on 5 L of oxygen by nasal cannula with a pulse ox of 95%. She is currently afebrile. Infectious disease on the case and the patient is referred to a WBC tagged scan. 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 Most recent chest x- ray from 02/13/2024 shows similar-appearing atelectatic changes in an elevation of the right hemidiaphragm. On 02/15/2024, the patient is being seen for a follow-up. Clinically stable and hemodynamically stable. She remains on 6 of oxygen by nasal cannula with a pulse ox of 88 to 92%. Hemodynamically stable. No fever or chills. Remains on Diflucan. Results of the follow-up blood cultures still pending for now. Noted the patient had positive systemic candidemia with positive blood cultures with Sarah albicans. Remains on IV Diflucan. No evidence of any active GI bleeding. She is stooling. She is post colonoscopy and decompression of rectal fecaloma. The white cell count 23.7 with a hemoglobin 11.2 and a platelet count of 291. BUN is 23 with a creatinine of 0.2 and a sodium level of 136 and a potassium level is at 3.2. Potassium level is being replaced. She remains on bronchodilators patient remains on prednisone currently at a dose of 20 mg p.o. daily. She is on IV Zosyn. She is on lactulose 20 g 3 times daily. She is on Levemir insulin 5 units along with NovoLog 3 units with meals. She is on Actos in addition to Levemir insulin. No other complaints. No nausea. No emesis. No abdominal pain. No chest pain. Profoundly weak. On 02/16/2024, I am seeing the patient for a follow-up. The patient was tr ansferred out of the intensive care unit yesterday. She is calm and comfortable on 60s of oxygen by nasal cannula. I encouraged her to use incentive spirometer. No evidence of any GI bleeding and the patient is stooling for now. Hemoglobin stable at 10.9 with a WBC count of 18.2 which is improved compared to yesterday and a platelet count of 232. While using incentive spirometer, she is pulling approximately 750 cc. BUN is at 20 with a creatinine of 0.27 and sodium levels at 134. Rest of the treatment remains essentially unchanged. She remains on IV Diflucan. She remains on IV Zosyn. The repeat blood cultures from 02/14/2024 has shown no microbial or fungal growth. She is afebrile. She is hemodynamically stable at this point in time. On 02/20/2024, the patient is awake and alert and she is using incentive spirometer. Oxygenation is slightly improved compared to yesterday currently she is at 5 L with a pulse ox of 92%. Having regular bowel movements. No constipation. No abdominal distention. Remains on IV Diflucan regarding her systemic fungemia with a white cell count of 16.7 and hemoglobin 11.4. BUN is at 16 with a creatinine of 0.26 and a sodium levels at 133. No other complaints otherwise for now. No fever. Hemodynamically stable. Objective - Vital Signs Vital signs: Vital Signs Temp 97.9 F 02/17/24 08:41 Pulse 95 02/17/24 08:46 Resp 18 02/17/24 08:41 BP 118/70 02/17/24 08:41 Pulse Ox 97 02/17/24 08:41 FiO2 Intake & Output 02/16/24 02/17/24 02/17/24 18:59 06:59 18:59 Intake Total 940 240 Output Total 2200 1000 1000 Balance -1260 -760 -1000 Intake: IV 300 Fluconazole in NaCl,Iso- 200 Osm 400 mg In Saline 1 200ml.bag @ 100 mls/hr IVPB DAILY [facility] Rx#: [id number] Piperacillin-Tazobactam 3 100 .375 gm In Sodium Chloride 0.9% 100 ml @ 25 mls/hr IVPB Q8HR [facility] Rx# :[id number] Oral 640 240 Output: Urine 2200 1000 1000 Other: Voiding Method Indwelling Catheter Indwelling Catheter Indwelling Catheter - Exam No acute distress, oriented 3. No respiratory distress. Currently on 5 L of oxygen by nasal cannula HEENT examination is grossly unremarkable. Mucous membranes are moist. No oral lesions. Neck supple. Full range of motion. No adenopathy thyromegaly or neck vein distention. Cardiovascular examination reveals regular rhythm rate. S1-S2 normal. No S3 or S4. No discernible murmur noted. Heart sounds are distant. Lungs reveal mild scattered rhonchi. No wheezes or crackles. Breath sounds equal. Diminished breath sound lung base bilaterally Abdomen soft bowel sounds are heard. No masses or tenderness. Extremities are intact. No cyanosis clubbing or edema. Skin is without rash or lesion. Neurologic examination is brief but nonfocal. - Labs CBC & Chem 7: 02/17/24 09:20 02/17/24 09:20 Labs: Abnormal Lab Results - Last 24 Hours (Table) 02/16/24 02/16/24 02/16/24 Range/Units 09:39 09:39 11:20 WBC 18.2 H (3.8-10.6) k/uL RBC 3.39 L (3.80-5.40) m/uL Hgb 10.9 L (11.4-16.0) gm/dL Hct 33.6 L (34.0-46.0) % Neutrophils # 17.2 H (1.3-7.7) k/uL Lymphocytes # 0.5 L (1.0-4.8) k/uL Sodium 134 L (137-145) mmol/L BUN 20 H (7-17) mg/dL Creatinine 0.27 L (0.52-1.04) mg/dL Glucose 178 H (74-99) mg/dL POC Glucose (mg/dL) 235 H (70-110) mg/dL Calcium 8.0 L (8.4-10.2) mg/dL Alkaline Phosphatase 259 H (38-126) U/L Total Protein 4.4 L (6.3-8.2) g/dL Albumin 2.2 L (3.5-5.0) g/dL 02/16/24 02/16/24 Range/Units 16:23 20:48 WBC (3.8-10.6) k/uL RBC (3.80-5.40) m/uL Hgb (11.4-16.0) gm/dL Hct (34.0-46.0) % Neutrophils # (1.3-7.7) k/uL Lymphocytes # (1.0-4.8) k/uL Sodium (137-145) mmol/L BUN (7-17) mg/dL Creatinine (0.52-1.04) mg/dL Glucose (74-99) mg/dL POC Glucose (mg/dL) 329 H 226 H (70-110) mg/dL Calcium (8.4-10.2) mg/dL Alkaline Phosphatase (38-126) U/L Total Protein (6.3-8.2) g/dL Albumin (3.5-5.0) g/dL Microbiology - Last 24 Hours (Table) 02/14/24 06:01 Blood Culture - Preliminary Blood Assessment and Plan Plan: Acute hypoxic respiratory failure currently on 5-6 L of oxygen by nasal cannula CTA of the chest shows no evidence of any pulmonary embolism. Extensive atelectatic changes in lung base bilaterally right more than left with small pleural effusions. Consider aspiration. The patient remains on Zosyn. Patient also has recommended pragmatic elevation and atelectatic change in lung base bilaterally. The patient does have elevation of the right hemidiaphragm. There is atelectatic change in lung bases. No signs of any respite distress at this point in time. Overall respiratory status is unchanged. Will encourage use of incentive spirometer. Systemic fungemia with Sarah albicans in the blood, urine and the source cannot be completely ruled out, and the patient is currently on IV Diflucan. Repeat blood culture from 02/14/2024 has shown no bacterial or fungal growth. The patient remains on IV Diflucan. Constipation and fecaloma in the rectum, awaiting colonoscopy for decompression, patient encountered some rectal bleeding following the colonoscopy and this has subsided, the patient continues to stool. Leukocytosis, white cell count is improving slowly and is currently down to 18. COPD Diabetes mellitus type 2 Hypertension Hyperlipidemia Chronic urinary retention maintained on a chronic indwelling Horn catheter, urine culture was also positive for Sarah Weight loss, unexplained Compression fracture of the spine Stage II sacral decub ulcer Significant debility and impaired performance and functional status and the patient is currently unable to ambulate and she has been essentially chair/bedbound for the past month or so. Frequent falls, hospitalized at [facility]. Plan Patient is on the medical floor and essentially no change in her condition since yesterday. Some slight improvement in oxygenation. Oxygenation is stable at 5 L of oxygen nasal cannula Continue using the incentive spirometer Patient completed decompression colonoscopy for constipation and rectal fecaloma No evidence of any GI bleeding, hemoglobin is stable Monitor the white cell count, improving and the level is down to 16 Repeat blood cultures, Of concern is the systemic candidemia, results are still pending for now, negative based on the culture that was obtained on 02/14/2024 Patient remains on a combination of Zosyn and Diflucan for now Source of the systemic candidemia is most likely a urinary source as the patient had a chronically indwelling Horn catheter in place with frequent hospitalizations. GI source is felt to be less likely. The patient is currently on Diflucan. CAT scan of the abdomen and pelvis was noted Continue lactulose 20 g p.o. 3 times daily Levemir insulin 5 units along with NovoLog 3 units with meals Continue Actos Prednisone 20 mg p.o. daily I am going to tapering down to 10 mg p.o. daily ID is on the case General surgery is on the case Will continue to follow The patient can be transferred to medical surgical floor. Physical therapy and encourage use of incentive spirometer.
--- NOTE | 2024-02-17 15:42 | P.PN ---
Subjective Progress Note Date: 02/17/24 Principal diagnosis: Fecal impaction Patient doing well today. Having some looser stools today. No nausea or vomiting. Tolerating diet. White blood cell count improving. Hemoglobin is stable. No rectal bleeding. Objective - Vital Signs Vital signs: Vital Signs Temp 97.9 F 02/17/24 08:41 Pulse 87 02/17/24 15:24 Resp 18 02/17/24 15:24 BP 141/74 02/17/24 15:24 Pulse Ox 94 L 02/17/24 15:24 FiO2 Intake & Output 02/16/24 02/17/24 02/17/24 18:59 06:59 18:59 Intake Total 940 240 118 Output Total 2200 1000 1600 Balance -4333 -413 -4294 Intake: IV 300 Fluconazole in NaCl,Iso- 200 Osm 400 mg In Saline 1 200ml.bag @ 100 mls/hr IVPB DAILY [facility] Rx#: [id number] Piperacillin-Tazobactam 3 100 .375 gm In Sodium Chloride 0.9% 100 ml @ 25 mls/hr IVPB Q8HR [facility] Rx# :[id number] Oral 640 240 118 Output: Urine 2200 1000 1600 Other: Voiding Method Indwelling Catheter Indwelling Catheter Indwelling Catheter # Bowel Movements 1 - Exam Abdomen: Soft, nontender, nondistended - Labs CBC & Chem 7: 02/17/24 09:20 02/17/24 09:20 Labs: Abnormal Lab Results - Last 24 Hours (Table) 02/16/24 02/16/24 02/17/24 Range/Units 16:23 20:48 09:20 WBC 16.7 H (3.8-10.6) k/uL RBC 3.54 L (3.80-5.40) m/uL Neutrophils # 15.3 H (1.3-7.7) k/uL Lymphocytes # 0.8 L (1.0-4.8) k/uL Sodium (137-145) mmol/L Creatinine (0.52-1.04) mg/dL Glucose (74-99) mg/dL POC Glucose (mg/dL) 329 H 226 H (70-110) mg/dL Calcium (8.4-10.2) mg/dL Alkaline Phosphatase (38-126) U/L Total Protein (6.3-8.2) g/dL Albumin (3.5-5.0) g/dL 02/17/24 02/17/24 Range/Units 09:20 11:03 WBC (3.8-10.6) k/uL RBC (3.80-5.40) m/uL Neutrophils # (1.3-7.7) k/uL Lymphocytes # (1.0-4.8) k/uL Sodium 133 L (137-145) mmol/L Creatinine 0.26 L (0.52-1.04) mg/dL Glucose 110 H (74-99) mg/dL POC Glucose (mg/dL) 189 H (70-110) mg/dL Calcium 7.9 L (8.4-10.2) mg/dL Alkaline Phosphatase 251 H (38-126) U/L Total Protein 4.7 L (6.3-8.2) g/dL Albumin 2.4 L (3.5-5.0) g/dL Microbiology - Last 24 Hours (Table) 02/14/24 06:01 Blood Culture - Preliminary Blood Assessment and Plan (1) Fecal impaction in rectum Narrative/Plan: Patient doing well after recent fecal disimpaction. Leukocytosis improving. Continue regular diet. Continue stool softeners. Will sign off. Please reconsult if needed. Current Visit: Yes Status: Acute Code(s): K56.41 - FECAL IMPACTION SNOMED Code(s): 9044698683
[2024-02-17 16:10] LABS: Glucose,Whole Blood 154 mg/dL (70-110)
--- NOTE | 2024-02-17 16:35 | P.PN ---
Subjective Progress Note Date: 02/16/24 Principal diagnosis: Reason for follow-up is UTI question of pneumonia and a sacral pressure ulcer Patient is a 63-year-old female with a past medical history significan t for diabetes mellitus hypertension hyperlipidemia COPD current everyday smoker, recent multiple admission to the [facility] for UTI followed with the compression fracture of the spine and hypoglycemia has been brought in to [facility] for evaluation of increasing shortness of breath did have abnormal CT angiogram of the chest concerning for effusion atelectasis positive UA concerning for UTI and the patient also have a sacral pressure ulcer. On today's evaluation that is 02/16/2024, Patient is afebrile patient is currently on 8 L nasal cannula oxygen however denies having any shortness of breath, the patient denies any chest pain or cough, the patient denies any naus ea vomiting did not have any abdominal pain and did have a bowel movement Patient white count is down to 18.2, creatinine 0.27 Objective - Vital Signs Vital signs: Vital Signs Temp 98 F 02/16/24 12:55 Pulse 92 02/16/24 15:15 Resp 16 02/16/24 12:55 BP 114/67 02/16/24 12:55 Pulse Ox 93 L 02/16/24 12:55 FiO2 Intake & Output 02/15/24 02/16/24 02/16/24 18:59 06:59 18:59 Intake Total 1764 340 700 Output Total 100 750 Balance 1664 -410 700 Weight 50.8 kg Intake: IV 330 100 300 Fluconazole in NaCl,Iso- 200 200 Osm 400 mg In Saline 1 200ml.bag @ 100 mls/hr IVPB DAILY [facility] Rx#: [id number] Invasive Line 4 30 Piperacillin-Tazobactam 3 100 100 100 .375 gm In Sodium Chloride 0.9% 100 ml @ 25 mls/hr IVPB Q8HR [facility] Rx# :[id number] Oral 1434 240 400 Output: Urine 100 750 Other: Voiding Method Indwelling Catheter Indwelling Catheter Indwelling Catheter # Bowel Movements 1 1 - Exam GENERAL DESCRIPTION: Middle-aged female lying in bed in no distress RESPIRATORY SYSTEM: Unlabored breathing , decreased breath sounds at bases HEART: S1 S2 regular rate and rhythm , ABDOMEN: Soft , no tenderness EXTREMITIES: No edema feet - Labs CBC & Chem 7: 02/17/24 09:20 02/17/24 09:20 Labs: Abnormal Lab Results - Last 24 Hours (Table) 02/15/24 02/15/24 02/16/24 Range/Units 16:33 20:31 06:05 WBC (3.8-10.6) k/uL RBC (3.80-5.40) m/uL Hgb (11.4-16.0) gm/dL Hct (34.0-46.0) % Neutrophils # (1.3-7.7) k/uL Lymphocytes # (1.0-4.8) k/uL Sodium (137-145) mmol/L BUN (7-17) mg/dL Creatinine (0.52-1.04) mg/dL Glucose (74-99) mg/dL POC Glucose (mg/dL) 225 H 295 H 130 H (70-110) mg/dL Calcium (8.4-10.2) mg/dL Alkaline Phosphatase (38-126) U/L Total Protein (6.3-8.2) g/dL Albumin (3.5-5.0) g/dL 02/16/24 02/16/24 02/16/24 Range/Units 09:39 09:39 11:20 WBC 18.2 H (3.8-10.6) k/uL RBC 3.39 L (3.80-5.40) m/uL Hgb 10.9 L (11.4-16.0) gm/dL Hct 33.6 L (34.0-46.0) % Neutrophils # 17.2 H (1.3-7.7) k/uL Lymphocytes # 0.5 L (1.0-4.8) k/uL Sodium 134 L (137-145) mmol/L BUN 20 H (7-17) mg/dL Creatinine 0.27 L (0.52-1.04) mg/dL Glucose 178 H (74-99) mg/dL POC Glucose (mg/dL) 235 H (70-110) mg/dL Calcium 8.0 L (8.4-10.2) mg/dL Alkaline Phosphatase 259 H (38-126) U/L Total Protein 4.4 L (6.3-8.2) g/dL Albumin 2.2 L (3.5-5.0) g/dL Microbiology - Last 24 Hours (Table) 02/14/24 06:01 Blood Culture - Preliminary Blood Assessment and Plan (1) Stage III pressure ulcer of sacral region Current Visit: Yes Status: Acute Code(s): L89.153 - PRESSURE ULCER OF SACRAL REGION, STAGE 3 SNOMED Code(s): 84738995971987 (2) Urinary tract infection Current Visit: Yes Status: Acute Code(s): N39.0 - URINARY TRACT INFECTION, SITE NOT SPECIFIED SNOMED Code(s): 86241966 (3) Aspiration pneumonia Current Visit: Yes Status: Acute Code(s): J69.0 - PNEUMONITIS DUE TO INHALATION OF FOOD AND VOMIT SNOMED Code(s): 202203777 (4) Candidemia Current Visit: Yes Status: Acute Code(s): B37.7 - CANDIDAL SEPSIS SNOMED Code(s): 901610408 Plan: 1patient with worsening of the white count no bowel movement for the last 4 to 5 days, patient did have CT abdominal pelvis CT shows large stool burden throughout the colon with 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 General surgery is planning for manually formation in the endoscopy suite tomorrow patient is covered with Zosyn 2-patient clinical course complicated by development of candidemia positive blood culture with Sarah albicans possible GI source, patient is s/p manual evaluation of her fecaloma completed on 02/14/2024 did have some rectal bleeding for the patient has been transferred to the ICU subsequently stabilized and transferred out of the ICU 3patient is covered with Zosyn and Diflucan blood culture has been repeated which are so far negative white count is trending down Dictation was produced using [employer] dictation software. please excuse any gram matical, word or spelling errors. Time with Patient: Less than 30
--- NOTE | 2024-02-17 16:35 | P.PN ---
Subjective Progress Note Date: 02/17/24 Principal diagnosis: Reason for follow-up is UTI question of pneumonia and a sacral pressure ulcer Patient is a 63-year-old female with a past medical history significan t for diabetes mellitus hypertension hyperlipidemia COPD current everyday smoker, recent multiple admission to the [facility] for UTI followed with the compression fracture of the spine and hypoglycemia has been brought in to [facility] for evaluation of increasing shortness of breath did have abnormal CT angiogram of the chest concerning for effusion atelectasis positive UA concerning for UTI and the patient also have a sacral pressure ulcer. On today's evaluation that is 02/17/2024, patient has been afebrile, patient is breathing comfortably and is currently on 5 L nasal oxygen, patient denies having any significant cough no chest pain shortness of breath, patient denies nausea vomiting or abdominal pain, patient mention tolerating her diet and is having a bowel movement. Patient white count is down to 16.7 creatinine 0.26 Objective - Vital Signs Vital signs: Vital Signs Temp 97.9 F 02/17/24 08:41 Pulse 89 02/17/24 12:35 Resp 17 02/17/24 11:10 BP 132/71 02/17/24 11:10 Pulse Ox 92 L 02/17/24 11:10 FiO2 Intake & Output 02/16/24 02/17/24 02/17/24 18:59 06:59 18:59 Intake Total 940 240 118 Output Total 2200 1000 1600 Balance -9761 -584 -7541 Intake: IV 300 Fluconazole in NaCl,Iso- 200 Osm 400 mg In Saline 1 200ml.bag @ 100 mls/hr IVPB DAILY [facility] Rx#: [id number] Piperacillin-Tazobactam 3 100 .375 gm In Sodium Chloride 0.9% 100 ml @ 25 mls/hr IVPB Q8HR [facility] Rx# :[id number] Oral 640 240 118 Output: Urine 2200 1000 1600 Other: Voiding Method Indwelling Catheter Indwelling Catheter Indwelling Catheter # Bowel Movements 1 - Exam GENERAL DESCRIPTION: Middle-aged female lying in bed in no distress RESPIRATORY SYSTEM: Unlabored breathing , decreased breath sounds at bases HEART: S1 S2 regular rate and rhythm , ABDOMEN: Soft , no tenderness EXTREMITIES: No edema feet - Labs CBC & Chem 7: 02/17/24 09:20 02/17/24 09:20 Labs: Abnormal Lab Results - Last 24 Hours (Table) 02/16/24 02/16/24 02/17/24 Range/Units 16:23 20:48 09:20 WBC 16.7 H (3.8-10.6) k/uL RBC 3.54 L (3.80-5.40) m/uL Neutrophils # 15.3 H (1.3-7.7) k/uL Lymphocytes # 0.8 L (1.0-4.8) k/uL Sodium (137-145) mmol/L Creatinine (0.52-1.04) mg/dL Glucose (74-99) mg/dL POC Glucose (mg/dL) 329 H 226 H (70-110) mg/dL Calcium (8.4-10.2) mg/dL Alkaline Phosphatase (38-126) U/L Total Protein (6.3-8.2) g/dL Albumin (3.5-5.0) g/dL 02/17/24 02/17/24 Range/Units 09:20 11:03 WBC (3.8-10.6) k/uL RBC (3.80-5.40) m/uL Neutrophils # (1.3-7.7) k/uL Lymphocytes # (1.0-4.8) k/uL Sodium 133 L (137-145) mmol/L Creatinine 0.26 L (0.52-1.04) mg/dL Glucose 110 H (74-99) mg/dL POC Glucose (mg/dL) 189 H (70-110) mg/dL Calcium 7.9 L (8.4-10.2) mg/dL Alkaline Phosphatase 251 H (38-126) U/L Total Protein 4.7 L (6.3-8.2) g/dL Albumin 2.4 L (3.5-5.0) g/dL Microbiology - Last 24 Hours (Table) 02/14/24 06:01 Blood Culture - Preliminary Blood Assessment and Plan (1) Stage III pressure ulcer of sacral region Current Visit: Yes Status: Acute Code(s): L89.153 - PRESSURE ULCER OF SACRAL REGION, STAGE 3 SNOMED Code(s): 83596895679474 (2) Urinary tract infection Current Visit: Yes Status: Acute Code(s): N39.0 - URINARY TRACT INFECTION, SITE NOT SPECIFIED SNOMED Code(s): 24136404 (3) Aspiration pneumonia Current Visit: Yes Status: Acute Code(s): J69.0 - PNEUMONITIS DUE TO INHALATION OF FOOD AND VOMIT SNOMED Code(s): 811784525 (4) Candidemia Current Visit: Yes Status: Acute Code(s): B37.7 - CANDIDAL SEPSIS SNOMED Code(s): 958179865 Plan: 1patient with worsening of the white count no bowel movement for the last 4 to 5 days, patient did have CT abdominal pelvis CT shows large stool burden throughout the colon with 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 General surgery is planning for manually formation in the endoscopy suite tomorrow patient is covered with Zosyn 2-patient clinical course complicated by development of candidemia positive blood culture with Sarah albicans possible GI source, patient is s/p manual evaluation of her fecaloma completed on 02/14/2024 did have some rectal bleeding for the patient has been transferred to the ICU subsequently stabilized and transferred out of the ICU 3patient is afebrile white count is trending down continue with the Zosyn and Diflucan hopefully will be able to transition to oral antibiotics and antifungal on discharge Dictation was produced using [employer] dictation software. please excuse any grammatical, word or spelling errors. Time with Patient: Less than 30
[2024-02-17 20:27] LABS: Glucose,Whole Blood 210 mg/dL (70-110)
--- NOTE | 2024-02-17 22:40 | PN ---
PROGRESS NOTE SUBJECTIVE: Pulse rate is 80s, pulse oximetry 94 on 5 L. Blood pressure 141/74. Tried to wean her down on oxygen levels prior to going to rehab center. White count is now down to 16.7 with a hemoglobin 11.4. Sugars mid 100s to 200s. Sodium 133, potassium 3.6, albumin is 2.4 with a slow improvement of leukocytosis. Repeat blood culture so far have been negative for Sarah. Aspiration pneumonia is treated, urinary tract infection improving. Wean her down to oxygen another day or 2, she can go back to rehab center. PROGNOSIS: Guarded. MMODL / IJN: [id number] /
[2024-02-18 05:55] LABS: Glucose,Whole Blood 165 mg/dL (70-110)
[2024-02-18 09:30] LABS: ALT 19 U/L (4-34); AST 24 U/L (14-36); African American GFR (CKD) >90 (>60 ml/min/1.73 sqM); Albumin 2.4 g/dL (3.5-5.0); Alkaline Phosphatase 234 U/L (38-126); Anion Gap 0 mmol/L; Blood Urea Nitrogen 14 mg/dL (7-17); Calcium 8.2 mg/dL (8.4-10.2); Carbon Dioxide 27 mmol/L (22-30); Chloride 105 mmol/L (98-107); Glucose 93 mg/dL (74-99); Non-African American GFR(CKD) >90 (>60 ml/min/1.73 sqM); Potassium 3.5 mmol/L (3.5-5.1); Sodium 132 mmol/L (137-145); Total Bilirubin 0.3 mg/dL (0.2-1.3); Total Protein 4.8 g/dL (6.3-8.2)
[2024-02-18] MEDS: predniSONE 10 MG TAB PO SCH (09:40)
[2024-02-18 09:50] LABS: HCT 36.2 % (34.0-46.0); HGB 11.8 gm/dL (11.4-16.0); MCH 32.1 pg (25.0-35.0); MCHC 32.5 g/dL (31.0-37.0); MCV 98.7 fL (80.0-100.0); Mean Platelet Volume 7.9; Platelet Count 208 k/uL (150-450); RBC 3.67 m/uL (3.80-5.40); RDW 14.1 % (11.5-15.5); WBC 15.9 k/uL (3.8-10.6)
[2024-02-18 11:27] LABS: Glucose,Whole Blood 89 mg/dL (70-110)
--- NOTE | 2024-02-18 13:11 | P.PN ---
Subjective Progress Note Date: 02/18/24 On 02/14/2024, the patient is being seen for a follow-up. This patient was initially hospitalized on 01/30/2024 and the patient has been in the hospital since. The patient is known to have COPD and diabetes mellitus and she is a chronic smoker and she has a chronic indwelling Horn catheter in place that was placed in a previous hospitalization at [facility]. The patient during this current hospital stay was treated for hypoxic respiratory failure and the CAT scan of the chest that was done at time of admission showed no evidence of any pulmonary embolism and there was extensive atelectatic change the lung base bilaterally right more than left with bilateral pleural effusion and the patient was covered with IV Zosyn. In addition to COPD, she is known to have hypertension hyperlipidemia and diabetes mellitus type 2 and chronic urinary retention and the patient has a Horn catheter in place and she has sustained compression fractures of her spine and she has significant debility impaired performance and functional status and she has been essentially bedbound for the past few months. She has had previous episodes of fall and sacral decubitus ulceration. The patient currently is having issues with constipation. The patient was supposed to go and have a decompression colonoscopy by general surgery today. The patient is also having issues with persistent leukocytosis. During this current admission, the patient's white cell count gradually went up and currently is up to 31. There is a positive blood culture with Sarah albicans from 02/11/2024 and urine culture was also positive for Sarah not albicans species. Patient is currently being seen by infectious disease. The patient is currently on IV Zosyn and IV Diflucan. He is on 5 L of oxygen by nasal cannula with a pulse ox of 95%. She is currently afebrile. Infectious disease on the case and the patient is referred to a WBC tagged scan. 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 Most recent chest x- ray from 02/13/2024 shows similar-appearing atelectatic changes in an elevation of the right hemidiaphragm. On 02/15/2024, the patient is being seen for a follow-up. Clinically stable and hemodynamically stable. She remains on 6 of oxygen by nasal cannula with a pulse ox of 88 to 92%. Hemodynamically stable. No fever or chills. Remains on Diflucan. Results of the follow-up blood cultures still pending for now. Noted the patient had positive systemic candidemia with positive blood cultures with Sarah albicans. Remains on IV Diflucan. No evidence of any active GI bleeding. She is stooling. She is post colonoscopy and decompression of rectal fecaloma. The white cell count 23.7 with a hemoglobin 11.2 and a platelet count of 291. BUN is 23 with a creatinine of 0.2 and a sodium level of 136 and a potassium level is at 3.2. Potassium level is being replaced. She remains on bronchodilators patient remains on prednisone currently at a dose of 20 mg p.o. daily. She is on IV Zosyn. She is on lactulose 20 g 3 times daily. She is on Levemir insulin 5 units along with NovoLog 3 units with meals. She is on Actos in addition to Levemir insulin. No other complaints. No nausea. No emesis. No abdominal pain. No chest pain. Profoundly weak. On 02/16/2024, I am seeing the patient for a follow-up. The patient was tr ansferred out of the intensive care unit yesterday. She is calm and comfortable on 60s of oxygen by nasal cannula. I encouraged her to use incentive spirometer. No evidence of any GI bleeding and the patient is stooling for now. Hemoglobin stable at 10.9 with a WBC count of 18.2 which is improved compared to yesterday and a platelet count of 232. While using incentive spirometer, she is pulling approximately 750 cc. BUN is at 20 with a creatinine of 0.27 and sodium levels at 134. Rest of the treatment remains essentially unchanged. She remains on IV Diflucan. She remains on IV Zosyn. The repeat blood cultures from 02/14/2024 has shown no microbial or fungal growth. She is afebrile. She is hemodynamically stable at this point in time. On 02/20/2024, the patient is awake and alert and she is using incentive spirometer. Oxygenation is slightly improved compared to yesterday currently she is at 5 L with a pulse ox of 92%. Having regular bowel movements. No constipation. No abdominal distention. Remains on IV Diflucan regarding her systemic fungemia with a white cell count of 16.7 and hemoglobin 11.4. BUN is at 16 with a creatinine of 0.26 and a sodium levels at 133. No other complaints otherwise for now. No fever. Hemodynamically stable. On 02/18/2024, the patient is doing well and using the incentive spirometer. Oxygenation is improved and the patient is currently down to 40 to monitor by nasal cannula. No issues with constipation. No issues with mental status change. Tolerating diet. Remains on IV Diflucan. No other complaints. Blood cultures from 02/11/2024 and 02/14/2024 were negative. The white cell count continues to gradually improve is currently down to 15.9. Hemoglobin 11.8. Electrolytes are normal. BUN is at 14 with a creatinine of 0.2. Objective - Vital Signs Vital signs: Vital Signs Temp 97.7 F 02/18/24 09:32 Pulse 91 02/18/24 09:32 Resp 19 02/18/24 09:32 BP 145/75 02/18/24 09:32 Pulse Ox 95 02/18/24 09:32 FiO2 Intake & Output 02/17/24 02/18/24 02/18/24 18:59 06:59 18:59 Intake Total 236 Output Total 2200 1000 Balance -1963 -999 Weight 96 kg Intake: Oral 236 Output: Urine 2200 1000 Other: Voiding Method Indwelling Catheter Indwelling Catheter # Bowel Movements 1 1 - Exam No acute distress, oriented 3. No respiratory distress. Currently on 5 L of oxygen by nasal cannula HEENT examination is grossly unremarkable. Mucous membranes are moist. No oral lesions. Neck supple. Full range of motion. No adenopathy thyromegaly or neck vein distention. Cardiovascular examination reveals regular rhythm rate. S1-S2 normal. No S3 or S4. No discernible murmur noted. Heart sounds are distant. Lungs reveal mild scattered rhonchi. No wheezes or crackles. Breath sounds equal. Diminished breath sound lung base bilaterally Abdomen soft bowel sounds are heard. No masses or tenderness. Extremities are intact. No cyanosis clubbing or edema. Skin is without rash or lesion. Neurologic examination is brief but nonfocal. - Labs CBC & Chem 7: 02/18/24 08:51 02/18/24 08:51 Labs: Abnormal Lab Results - Last 24 Hours (Table) 02/17/24 02/17/24 02/17/24 Range/Units 09:20 09:20 11:03 WBC 16.7 H (3.8-10.6) k/uL RBC 3.54 L (3.80-5.40) m/uL Neutrophils # 15.3 H (1.3-7.7) k/uL Lymphocytes # 0.8 L (1.0-4.8) k/uL Sodium 133 L (137-145) mmol/L Creatinine 0.26 L (0.52-1.04) mg/dL Glucose 110 H (74-99) mg/dL POC Glucose (mg/dL) 189 H (70-110) mg/dL Calcium 7.9 L (8.4-10.2) mg/dL Alkaline Phosphatase 251 H (38-126) U/L Total Protein 4.7 L (6.3-8.2) g/dL Albumin 2.4 L (3.5-5.0) g/dL 02/17/24 02/17/24 02/18/24 Range/Units 16:09 20:18 05:53 WBC (3.8-10.6) k/uL RBC (3.80-5.40) m/uL Neutrophils # (1.3-7.7) k/uL Lymphocytes # (1.0-4.8) k/uL Sodium (137-145) mmol/L Creatinine (0.52-1.04) mg/dL Glucose (74-99) mg/dL POC Glucose (mg/dL) 154 H 210 H 165 H (70-110) mg/dL Calcium (8.4-10.2) mg/dL Alkaline Phosphatase (38-126) U/L Total Protein (6.3-8.2) g/dL Albumin (3.5-5.0) g/dL 02/18/24 02/18/24 Range/Units 08:51 08:51 WBC 15.9 H (3.8-10.6) k/uL RBC 3.67 L (3.80-5.40) m/uL Neutrophils # (1.3-7.7) k/uL Lymphocytes # (1.0-4.8) k/uL Sodium 132 L (137-145) mmol/L Creatinine 0.20 L (0.52-1.04) mg/dL Glucose (74-99) mg/dL POC Glucose (mg/dL) (70-110) mg/dL Calcium 8.2 L (8.4-10.2) mg/dL Alkaline Phosphatase 234 H (38-126) U/L Total Protein 4.8 L (6.3-8.2) g/dL Albumin 2.4 L (3.5-5.0) g/dL Microbiology - Last 24 Hours (Table) 02/14/24 06:01 Blood Culture - Preliminary Blood Assessment and Plan Plan: Acute hypoxic respiratory failure currently on 4 L of oxygen by nasal cannula CTA of the chest shows no evidence of any pulmonary embolism. Extensive atelectatic changes in lung base bilaterally right more than left with small pleural effusions. Consider aspiration. The patient remains on Zosyn. Patient also has recommended pragmatic elevation and atelectatic change in lung base bilaterally. The patient does have elevation of the right hemidiaphragm. There is atelectatic change in lung bases. No signs of any respite distress at this point in time. Overall respiratory status is unchanged. Will encourage use of incentive spirometer. Systemic fungemia with Sarah albicans in the blood, urine and the source cannot be completely ruled out, and the patient is currently on IV Diflucan. Re peat blood culture from 02/14/2024 has shown no bacterial or fungal growth. The patient remains on IV Diflucan. Constipation and fecaloma in the rectum, awaiting colonoscopy for decompression, patient encountered some rectal bleeding following the colonoscopy and this has subsided, the patient continues to stool. Leukocytosis, white cell count is improving slowly and is currently down to 18. COPD Diabetes mellitus type 2 Hypertension Hyperlipidemia Chronic urinary retention maintained on a chronic indwelling Horn catheter, urine culture was also positive for Sarah Weight loss, unexplained Compression fracture of the spine Stage II sacral decub ulcer Significant debility and impaired performance and functional status and the patient is currently unable to ambulate and she has been essentially chair/bedbound for the past month or so. Frequent falls, hospitalized at [facility]. Plan Patient is on the medical floor and essentially no change in her condition since yesterday. Some slight improvement in oxygenation. Oxygenation is stable at 4 L of O2 nasal cannula Continue using the incentive spirometer Patient completed decompression colonoscopy for constipation and rectal fecaloma No evidence of any GI bleeding, hemoglobin is stable Monitor the white cell count, improving and the level is down to 15 Repeat blood cultures, Of concern is the systemic candidemia, results are still pending for now, negative based on the culture that was obtained on 02/14/2024 and also from 02/11/2024. Patient remains on a combination of Zosyn and Diflucan for now Source of the systemic candidemia is most likely a urinary source as the patient had a chronically indwelling Horn catheter in place with frequent hospitalizations. GI source is felt to be less likely. The patient is currently on Diflucan. CAT scan of the abdomen and pelvis was noted Continue lactulose 20 g p.o. 3 times daily Levemir insulin 5 units along with NovoLog 3 units with meals Continue Actos Prednisone 10 mg p.o. daily ID is on the case General surgery is on the case Will continue to follow Physical therapy and encourage use of incentive spirometer.
[2024-02-18 14:06] LABS: Neutrophils # (M) 15.11 k/uL (1.3-7.7); Neutrophils % (M) 95 %; Nucleated Red Blood Cells 0 /100 WBC (0-0); Total Cells Counted 100
[2024-02-18 14:07] LABS: RBC Morphology Normal
--- NOTE | 2024-02-18 15:23 | P.PN ---
Subjective Progress Note Date: 02/18/24 Principal diagnosis: Reason for follow-up is UTI question of pneumonia and a sacral pressure ulcer Patient is a 63-year-old female with a past medical history significan t for diabetes mellitus hypertension hyperlipidemia COPD current everyday smoker, recent multiple admission to the [facility] for UTI followed with the compression fracture of the spine and hypoglycemia has been brought in to [facility] for evaluation of increasing shortness of breath did have abnormal CT angiogram of the chest concerning for effusion atelectasis positive UA concerning for UTI and the patient also have a sacral pressure ulcer. On today's evaluation that is 02/18/2024,the patient denies any fever or any chills, patient is breathing comfortably on 4 L nasal cannula oxygen the patient denies chest pain shortness of breath and no significant cough, patient denies nausea vomiting no abdominal pain however mention did not have bowel movement since yesterday. Patient white count slightly up to 15.9 creatinine 0.20 blood culture repeat so far negative Objective - Vital Signs Vital signs: Vital Signs Temp 97.8 F 02/18/24 12:50 Pulse 91 02/18/24 12:50 Resp 16 02/18/24 12:50 BP 143/75 02/18/24 12:50 Pulse Ox 94 L 02/18/24 12:50 FiO2 Intake & Output 02/17/24 02/18/24 02/18/24 18:59 06:59 18:59 Intake Total 236 Output Total 2200 1000 Balance -1964 -1000 Weight 96 kg Intake: Oral 236 Output: Urine 2200 1000 Other: Voiding Method Indwelling Catheter Indwelling Catheter Indwelling Catheter # Bowel Movements 1 1 - Exam GENERAL DESCRIPTION: Middle-aged female lying in bed in no distress RESPIRATORY SYSTEM: Unlabored breathing , decreased breath sounds at bases HEART: S1 S2 regular rate and rhythm , ABDOMEN: Soft , no tenderness EXTREMITIES: No edema feet - Labs CBC & Chem 7: 02/18/24 08:51 02/18/24 08:51 Labs: Abnormal Lab Results - Last 24 Hours (Table) 02/17/24 02/17/24 02/18/24 Range/Units 16:09 20:18 05:53 WBC (3.8-10.6) k/uL RBC (3.80-5.40) m/uL Sodium (137-145) mmol/L Creatinine (0.52-1.04) mg/dL POC Glucose (mg/dL) 154 H 210 H 165 H (70-110) mg/dL Calcium (8.4-10.2) mg/dL Alkaline Phosphatase (38-126) U/L Total Protein (6.3-8.2) g/dL Albumin (3.5-5.0) g/dL 02/18/24 02/18/24 Range/Units 08:51 08:51 WBC 15.9 H (3.8-10.6) k/uL RBC 3.67 L (3.80-5.40) m/uL Sodium 132 L (137-145) mmol/L Creatinine 0.20 L (0.52-1.04) mg/dL POC Glucose (mg/dL) (70-110) mg/dL Calcium 8.2 L (8.4-10.2) mg/dL Alkaline Phosphatase 234 H (38-126) U/L Total Protein 4.8 L (6.3-8.2) g/dL Albumin 2.4 L (3.5-5.0) g/dL Microbiology - Last 24 Hours (Table) 02/14/24 06:01 Blood Culture - Preliminary Blood Assessment and Plan (1) Stage III pressure ulcer of sacral region Current Visit: Yes Status: Acute Code(s): L89.153 - PRESSURE ULCER OF SACRAL REGION, STAGE 3 SNOMED Code(s): 85260006796256 (2) Urinary tract infection Current Visit: Yes Status: Acute Code(s): N39.0 - URINARY TRACT INFECTION, SITE NOT SPECIFIED SNOMED Code(s): 76128407 (3) Aspiration pneumonia Current Visit: Yes Status: Acute Code(s): J69.0 - PNEUMONITIS DUE TO INHALATION OF FOOD AND VOMIT SNOMED Code(s): 497120406 (4) Candidemia Current Visit: Yes Status: Acute Code(s): B37.7 - CANDIDAL SEPSIS SNOMED Code(s): 139061959 Plan: 1patient with worsening of the white count no bowel movement for the last 4 to 5 days, patient did have CT abdominal pelvis CT shows large stool burden throughout the colon with 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 General surgery is planning for manually formation in the endoscopy suite tomorrow patient is covered with Zosyn 2-patient clinical course complicated by development of candidemia positive blood culture with Sarah albicans possible GI source, patient is s/p manual evaluation of her fecaloma completed on 02/14/2024 did have some rectal bleeding for the patient has been transferred to the ICU subsequently stabilized and transferred out of the ICU 3patient is afebrile white count is trending down and is down to 15,000 today 4-patient to continue with the Zosyn and Diflucan, complaining of no bowel movement since yesterday should be addressed by surgical team Dictation was produced using [employer] dictation software. please excuse any grammatical, word or spelling errors. Time with Patient: Less than 30
[2024-02-18 16:39] LABS: Glucose,Whole Blood 232 mg/dL (70-110)
[2024-02-18 20:31] LABS: Glucose,Whole Blood 230 mg/dL (70-110)
--- NOTE | 2024-02-19 00:51 | PN ---
PROGRESS NOTE Remains on DuoNeb, Pulmicort, nicotine addiction medication. She has severe COPD and pulmonary hypertension. She is type 1 diabetic. Her white count is greatly improved to 15.9. We cut her insulin back and her sugars are doing fine in the 100s, 200s, 89. Her white count is improved, status post fecaloma surgery and GoLYTELY. Albumin level is 2.4. Temperature 97.6, blood pressure 135/75, O2 saturation 96% on 4 L, and respiratory rate 16 to 18. We will get a rehab consult to see if she can go to the hospital for rehab. Prognosis is guarded, but she is much better than she was. She had aspiration pneumonia, UTI, COPD, pulmonary hypertension, and type 1 diabetes mellitus. Prognosis extremely guarded, but she is much better status post PICC line removal. White count is greatly decreased. She had Sarah in the blood. Repeat blood cultures are negative. Continue current treatment. Prognosis guarded. MMODL / IJN: [id number] /
[2024-02-19 06:31] LABS: Glucose,Whole Blood 205 mg/dL (70-110)
[2024-02-19] MEDS: HYDROcodone/APAP 5-325MG 1 EACH TAB PO PRN (06:53)
--- NOTE | 2024-02-19 10:52 | P.PN ---
Subjective Progress Note Date: 02/19/24 Principal diagnosis: Frequent falls, Generalized weakness and medical debility Compression fracture of LS his spine History is to sacral decubitus ulcer Chronic weight loss of unclear etiology Urinary tract infection chronic Dyslipidemia Hypertension hypertensive cardiovascular disease Type 2 diabetes mellitus COPD Leukocytosis 02/19/2024 Patient awake and alert laying down in the bed in no obvious distress present, patient remains on supplemental oxygen at 4 L nasal cannula, remains on broad-spectrum antibiotics denies any chest pain tolerating antibiotics well, last chest x-ray performed right-sided small pleural effusion is seen Objective - Vital Signs Vital signs: Vital Signs Temp 98.0 F 02/19/24 09:55 Pulse 98 02/19/24 09:55 Resp 16 02/19/24 09:55 BP 128/70 02/19/24 09:55 Pulse Ox 100 02/19/24 09:55 FiO2 Intake & Output 02/18/24 02/19/24 02/19/24 18:59 06:59 18:59 Intake Total 140 240 360 Output Total 650 1525 Balance -510 -1285 360 Intake: Oral 140 240 360 Output: Urine 650 1525 Other: Voiding Method Indwelling Catheter Indwelling Catheter - Labs CBC & Chem 7: 02/18/24 08:51 02/18/24 08:51 Labs: Abnormal Lab Results - Last 24 Hours (Table) 02/18/24 02/18/24 02/18/24 Range/Units 08:51 16:38 20:28 Neutrophils # (Manual) 15.11 H (1.3-7.7) k/uL Lymphocytes # (Manual) 0.80 L (1.0-4.8) k/uL POC Glucose (mg/dL) 232 H 230 H (70-110) mg/dL 02/19/24 Range/Units 06:03 Neutrophils # (Manual) (1.3-7.7) k/uL Lymphocytes # (Manual) (1.0-4.8) k/uL POC Glucose (mg/dL) 205 H (70-110) mg/dL Assessment and Plan Assessment: blood culture positive for anemia with Sarah ID services been following UTI with Sarah and chronic Horn's catheter Frequent falls, Generalized weakness and medical debility Compression fracture of LS his spine History is to sacral decubitus ulcer Chronic weight loss of unclear etiology Urinary tract infection chronic Dyslipidemia Hypertension hypertensive cardiovascular disease Type 2 diabetes mellitus COPD Leukocytosis Plan: continue supplemental oxygen PT OT evaluation and increase activity as tolerated Continue broad-spectrum antibiotics pain control with hydrocodone/[place] Continue bronchodilators with DuoNeb Continue antihypertensive agent with Norvasc Continue IV fluconazole ID service has been following Sliding scale insulin with shortness along acting insulin Continue Zosyn
[2024-02-19 11:42] LABS: Glucose,Whole Blood 201 mg/dL (70-110)
--- NOTE | 2024-02-19 13:32 | P.PN ---
Subjective Progress Note Date: 02/19/24 Principal diagnosis: Reason for follow-up is UTI question of pneumonia and a sacral pressure ulcer Patient is a 63-year-old female with a past medical history significan t for diabetes mellitus hypertension hyperlipidemia COPD current everyday smoker, recent multiple admission to the [facility] for UTI followed with the compression fracture of the spine and hypoglycemia has been brought in to [facility] for evaluation of increasing shortness of breath did have abnormal CT angiogram of the chest concerning for effusion atelectasis positive UA concerning for UTI and the patient also have a sacral pressure ulcer. On today's evaluation that is 02/19/2024,the patient remains to be afebrile, patient is on 4 L nasal cannula supplemental oxygen however denies any shortness of breath no chest pain or cough.Patient denies having any nausea or vomiting, no abdominal pain no bowel movement today. No new labs has been obtained today Objective - Vital Signs Vital signs: Vital Signs Temp 97.7 F 02/19/24 04:00 Pulse 99 02/19/24 04:00 Resp 16 02/19/24 04:00 BP 121/74 02/19/24 04:00 Pulse Ox 97 02/19/24 04:00 FiO2 Intake & Output 02/18/24 02/19/24 02/19/24 18:59 06:59 18:59 Intake Total 140 240 Output Total 650 1525 Balance -510 -1285 Intake: Oral 140 240 Output: Urine 650 1525 Other: Voiding Method Indwelling Catheter Indwelling Catheter - Exam GENERAL DESCRIPTION: Middle-aged female lying in bed in no distress RESPIRATORY SYSTEM: Unlabored breathing , decreased breath sounds at bases HEART: S1 S2 regular rate and rhythm , ABDOMEN: Soft , no tenderness EXTREMITIES: No edema feet - Labs CBC & Chem 7: 02/18/24 08:51 02/18/24 08:51 Labs: Abnormal Lab Results - Last 24 Hours (Table) 02/18/24 02/18/24 02/18/24 Range/Units 08:51 08:51 16:38 WBC 15.9 H (3.8-10.6) k/uL RBC 3.67 L (3.80-5.40) m/uL Neutrophils # (Manual) 15.11 H (1.3-7.7) k/uL Lymphocytes # (Manual) 0.80 L (1.0-4.8) k/uL Sodium 132 L (137-145) mmol/L Creatinine 0.20 L (0.52-1.04) mg/dL POC Glucose (mg/dL) 232 H (70-110) mg/dL Calcium 8.2 L (8.4-10.2) mg/dL Alkaline Phosphatase 234 H (38-126) U/L Total Protein 4.8 L (6.3-8.2) g/dL Albumin 2.4 L (3.5-5.0) g/dL 02/18/24 02/19/24 Range/Units 20:28 06:03 WBC (3.8-10.6) k/uL RBC (3.80-5.40) m/uL Neutrophils # (Manual) (1.3-7.7) k/uL Lymphocytes # (Manual) (1.0-4.8) k/uL Sodium (137-145) mmol/L Creatinine (0.52-1.04) mg/dL POC Glucose (mg/dL) 230 H 205 H (70-110) mg/dL Calcium (8.4-10.2) mg/dL Alkaline Phosphatase (38-126) U/L Total Protein (6.3-8.2) g/dL Albumin (3.5-5.0) g/dL Assessment and Plan (1) Stage III pressure ulcer of sacral region Current Visit: Yes Status: Acute Code(s): L89.153 - PRESSURE ULCER OF SACRAL REGION, STAGE 3 SNOMED Code(s): 42921576638616 (2) Urinary tract infection Current Visit: Yes Status: Acute Code(s): N39.0 - URINARY TRACT INFECTION, SITE NOT SPECIFIED SNOMED Code(s): 70838578 (3) Aspiration pneumonia Current Visit: Yes Status: Acute Code(s): J69.0 - PNEUMONITIS DUE TO INHALATION OF FOOD AND VOMIT SNOMED Code(s): 673592072 (4) Candidemia Current Visit: Yes Status: Acute Code(s): B37.7 - CANDIDAL SEPSIS SNOMED Code(s): 435534983 Plan: 1patient with worsening of the white count no bowel movement for the last 4 to 5 days, patient did have CT abdominal pelvis CT shows large stool burden throughout the colon with 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 General surgery is planning for manually formation in the endoscopy suite tomorrow patient is covered with Zosyn 2-patient clinical course complicated by development of candidemia positive blood culture with Sarah albicans possible GI source, patient is s/p manual evaluation of her fecaloma completed on 02/14/2024 did have some rectal bleeding for the patient has been transferred to the ICU subsequently stabilized and transferred out of the ICU 3patient is afebrile white count is trending down and is down to 15,000 as of yesterday no CBC was done today 4-patient to continue with the Zosyn and Diflucan, we will repeat a CBC with a.m. lab Dictation was produced using [employer] dictation software. please excuse any grammatical, word or spelling errors. Time with Patient: Less than 30
--- NOTE | 2024-02-19 13:43 | P.PN ---
Subjective Progress Note Date: 02/19/24 On 02/14/2024, the patient is being seen for a follow-up. This patient was initially hospitalized on 01/30/2024 and the patient has been in the hospital since. The patient is known to have COPD and diabetes mellitus and she is a chronic smoker and she has a chronic indwelling Horn catheter in place that was placed in a previous hospitalization at [facility]. The patient during this current hospital stay was treated for hypoxic respiratory failure and the CAT scan of the chest that was done at time of admission showed no evidence of any pulmonary embolism and there was extensive atelectatic change the lung base bilaterally right more than left with bilateral pleural effusion and the patient was covered with IV Zosyn. In addition to COPD, she is known to have hypertension hyperlipidemia and diabetes mellitus type 2 and chronic urinary retention and the patient has a Horn catheter in place and she has sustained compression fractures of her spine and she has significant debility impaired performance and functional status and she has been essentially bedbound for the past few months. She has had previous episodes of fall and sacral decubitus ulceration. The patient currently is having issues with constipation. The patient was supposed to go and have a decompression colonoscopy by general surgery today. The patient is also having issues with persistent leukocytosis. During this current admission, the patient's white cell count gradually went up and currently is up to 31. There is a positive blood culture with Sarah albicans from 02/11/2024 and urine culture was also positive for Sarah not albicans species. Patient is currently being seen by infectious disease. The patient is currently on IV Zosyn and IV Diflucan. He is on 5 L of oxygen by nasal cannula with a pulse ox of 95%. She is currently afebrile. Infectious disease on the case and the patient is referred to a WBC tagged scan. 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 Most recent chest x- ray from 02/13/2024 shows similar-appearing atelectatic changes in an elevation of the right hemidiaphragm. On 02/15/2024, the patient is being seen for a follow-up. Clinically stable and hemodynamically stable. She remains on 6 of oxygen by nasal cannula with a pulse ox of 88 to 92%. Hemodynamically stable. No fever or chills. Remains on Diflucan. Results of the follow-up blood cultures still pending for now. Noted the patient had positive systemic candidemia with positive blood cultures with Sarah albicans. Remains on IV Diflucan. No evidence of any active GI bleeding. She is stooling. She is post colonoscopy and decompression of rectal fecaloma. The white cell count 23.7 with a hemoglobin 11.2 and a platelet count of 291. BUN is 23 with a creatinine of 0.2 and a sodium level of 136 and a potassium level is at 3.2. Potassium level is being replaced. She remains on bronchodilators patient remains on prednisone currently at a dose of 20 mg p.o. daily. She is on IV Zosyn. She is on lactulose 20 g 3 times daily. She is on Levemir insulin 5 units along with NovoLog 3 units with meals. She is on Actos in addition to Levemir insulin. No other complaints. No nausea. No emesis. No abdominal pain. No chest pain. Profoundly weak. On 02/16/2024, I am seeing the patient for a follow-up. The patient was tr ansferred out of the intensive care unit yesterday. She is calm and comfortable on 60s of oxygen by nasal cannula. I encouraged her to use incentive spirometer. No evidence of any GI bleeding and the patient is stooling for now. Hemoglobin stable at 10.9 with a WBC count of 18.2 which is improved compared to yesterday and a platelet count of 232. While using incentive spirometer, she is pulling approximately 750 cc. BUN is at 20 with a creatinine of 0.27 and sodium levels at 134. Rest of the treatment remains essentially unchanged. She remains on IV Diflucan. She remains on IV Zosyn. The repeat blood cultures from 02/14/2024 has shown no microbial or fungal growth. She is afebrile. She is hemodynamically stable at this point in time. On 02/20/2024, the patient is awake and alert and she is using incentive spirometer. Oxygenation is slightly improved compared to yesterday currently she is at 5 L with a pulse ox of 92%. Having regular bowel movements. No constipation. No abdominal distention. Remains on IV Diflucan regarding her systemic fungemia with a white cell count of 16.7 and hemoglobin 11.4. BUN is at 16 with a creatinine of 0.26 and a sodium levels at 133. No other complaints otherwise for now. No fever. Hemodynamically stable. On 02/18/2024, the patient is doing well and using the incentive spirometer. Oxygenation is improved and the patient is currently down to 40 to monitor by nasal cannula. No issues with constipation. No issues with mental status change. Tolerating diet. Remains on IV Diflucan. No other complaints. Blood cultures from 02/11/2024 and 02/14/2024 were negative. The white cell count continues to gradually improve is currently down to 15.9. Hemoglobin 11.8. Electrolytes are normal. BUN is at 14 with a creatinine of 0.2. 02/19/2024, the patient is being seen for a follow-up. She is using the incentive spirometer on a regular basis. On 3 L, pulse ox is 99%. No new complaints otherwise for now. No respiratory distress. Resting comfortably in bed. No new labs are available from today. Remains on IV Diflucan and as mentioned, the repeat blood cultures have been negative. Tolerating diet. No nausea. No emesis. No altered mentation. Objective - Vital Signs Vital signs: Vital Signs Temp 98.0 F 02/19/24 09:55 Pulse 98 02/19/24 09:55 Resp 16 02/19/24 09:55 BP 128/70 02/19/24 09:55 Pulse Ox 100 02/19/24 09:55 FiO2 Intake & Output 02/18/24 02/19/24 02/19/24 18:59 06:59 18:59 Intake Total 140 240 Output Total 650 1525 Balance -510 -1285 Intake: Oral 140 240 Output: Urine 650 1525 Other: Voiding Method Indwelling Catheter Indwelling Catheter - Exam No acute distress, oriented 3. No respiratory distress. Currently on 5 L of oxygen by nasal cannula HEENT examination is grossly unremarkable. Mucous membranes are moist. No oral lesions. Neck supple. Full range of motion. No adenopathy thyromegaly or neck vein dist ention. Cardiovascular examination reveals regular rhythm rate. S1-S2 normal. No S3 or S4. No discernible murmur noted. Heart sounds are distant. Lungs reveal mild scattered rhonchi. No wheezes or crackles. Breath sounds equal. Diminished breath sound lung base bilaterally Abdomen soft bowel sounds are heard. No masses or tenderness. Extremities are intact. No cyanosis clubbing or edema. Skin is without rash or lesion. Neurologic examination is brief but nonfocal. - Labs CBC & Chem 7: 02/18/24 08:51 02/18/24 08:51 Labs: Abnormal Lab Results - Last 24 Hours (Table) 02/18/24 02/18/24 02/18/24 Range/Units 08:51 16:38 20:28 Neutrophils # (Manual) 15.11 H (1.3-7.7) k/uL Lymphocytes # (Manual) 0.80 L (1.0-4.8) k/uL POC Glucose (mg/dL) 232 H 230 H (70-110) mg/dL 02/19/24 Range/Units 06:03 Neutrophils # (Manual) (1.3-7.7) k/uL Lymphocytes # (Manual) (1.0-4.8) k/uL POC Glucose (mg/dL) 205 H (70-110) mg/dL Assessment and Plan Plan: Acute hypoxic respiratory failure currently on 3 L of oxygen by nasal cannula CTA of the chest shows no evidence of any pulmonary embolism. Extensive atelectatic changes in lung base bilaterally right more than left with small pleural effusions. Consider aspiration. The patient remains on Zosyn. She does have atelectatic changes and chronic diaphragmatic elevation more so on the right. Oxygenation gradually improved and the patient is utilizing incentive spirometer and she has been weaned down to 3 L of O2 nasal cannula. Systemic fungemia with Sarah albicans in the blood, urine and the source cannot be completely ruled out, and the patient is currently on IV Diflucan. Repeat blood culture from 02/14/2024 has shown no bacterial or fungal growth. The patient remains on IV Diflucan. Constipation and fecaloma in the rectum, awaiting colonoscopy for decompression, patient encountered some rectal bleeding following the colonoscopy and this has subsided, the patient continues to stool. Leukocytosis, white cell count is improving slowly COPD Diabetes mellitus type 2 Hypertension Hyperlipidemia Chronic urinary retention maintained on a chronic indwelling Horn catheter, urine culture was also positive for Sarah Weight loss, unexplained Compression fracture of the spine Stage II sacral decub ulcer Significant debility and impaired performance and functional status and the patient is currently unable to ambulate and she has been essentially chair/bedbound for the past month or so. Frequent falls, hospitalized at [facility]. Plan Patient is demonstrating ongoing improvement in oxygenation. Oxygenation is stable at 3 L of O2 nasal cannula Continue using the incentive spirometer Patient completed decompression colonoscopy for constipation and rectal fecaloma No evidence of any GI bleeding, hemoglobin is stable Monitor the white cell count, improving Repeat blood cultures, Of concern is the systemic candidemia, results are still pending for now, negative based on the culture that was obtained on 02/14/2024 and also from 02/11/2024. Patient remains on a combination of Zosyn and Diflucan for now Source of the systemic candidemia is most likely a urinary source as the patient had a chronically indwelling Horn catheter in place with frequent hospitalizations. GI source is felt to be less likely. The patient is currently on Diflucan. CAT scan of the abdomen and pelvis was noted Continue lactulose 20 g p.o. 3 times daily Levemir insulin 5 units along with NovoLog 3 units with meals Continue Actos Prednisone 10 mg p.o. daily ID is on the case General surgery is on the case Will continue to follow Physical therapy and encourage use of incentive spirometer.
[2024-02-19 17:11] LABS: Glucose,Whole Blood 255 mg/dL (70-110)
[2024-02-19 20:30] LABS: Glucose,Whole Blood 239 mg/dL (70-110)
[2024-02-20 06:15] LABS: Glucose,Whole Blood 181 mg/dL (70-110)
[2024-02-20 07:57] LABS: Basophils % (A) 0 %; Eosinophils # (A) 0.1 k/uL (0-0.7); Eosinophils % (A) 1 %; HCT 35.4 % (34.0-46.0); HGB 11.7 gm/dL (11.4-16.0); Lymphocytes # (A) 0.9 k/uL (1.0-4.8); Lymphocytes % (A) 9 %; MCH 32.9 pg (25.0-35.0); MCHC 33.1 g/dL (31.0-37.0); MCV 99.5 fL (80.0-100.0); Macrocytosis Slight; Mean Platelet Volume 7.8; Monocytes # (A) 0.4 k/uL (0-1.0); Monocytes % (A) 4 %; Neutrophils # (A) 8.8 k/uL (1.3-7.7); Neutrophils % (A) 85 %; Platelet Count 266 k/uL (150-450); RBC 3.55 m/uL (3.80-5.40); RDW 14.5 % (11.5-15.5); WBC 10.3 k/uL (3.8-10.6)
[2024-02-20 08:15] LABS: ALT 16 U/L (4-34); AST 20 U/L (14-36); African American GFR (CKD) >90 (>60 ml/min/1.73 sqM); Albumin 2.3 g/dL (3.5-5.0); Alkaline Phosphatase 244 U/L (38-126); Anion Gap -1 mmol/L; Blood Urea Nitrogen 12 mg/dL (7-17); Calcium 7.9 mg/dL (8.4-10.2); Carbon Dioxide 29 mmol/L (22-30); Chloride 105 mmol/L (98-107); Glucose 172 mg/dL (74-99); Non-African American GFR(CKD) >90 (>60 ml/min/1.73 sqM); Potassium 3.4 mmol/L (3.5-5.1); Sodium 133 mmol/L (137-145); Total Bilirubin 0.3 mg/dL (0.2-1.3); Total Protein 4.6 g/dL (6.3-8.2)
[2024-02-20 08:32] LABS: C Reactive Protein <0.5 mg/dL (<1.0)
--- NOTE | 2024-02-20 09:52 | P.PN ---
Subjective Progress Note Date: 02/20/24 Principal diagnosis: Frequent falls, Generalized weakness and medical debility Compression fracture of LS his spine History is to sacral decubitus ulcer Chronic weight loss of unclear etiology Urinary tract infection chronic Dyslipidemia Hypertension hypertensive cardiovascular disease Type 2 diabetes mellitus COPD Leukocytosis 02/20/2024, patient seen eval examined during rounds ongoing shortness of breath is present on minimal activity and exertion denies any chest pain, FiO2 have been lowered down to 2 L from 4 L now.labs from today reviewed sodium is 1:30 to 30.4 BUN/creatinine 12/0.25, LFTs within normal limit patient is afebrile hemodynamically stable, oxygen saturation 96% on 2 L oxygen. Patient remains on bronchodilator with that given amp also on IV Diflucan and Zosyn 02/19/2024 Patient awake and alert laying down in the bed in no obvious distress present, patient remains on supplemental oxygen at 4 L nasal cannula, remains on broad-spectrum antibiotics denies any chest pain tolerating antibiotics well, last chest x-ray performed reviewed right-sided small pleural effusion is seen Objective - Vital Signs Vital signs: Vital Signs Temp 98.1 F 02/20/24 04:00 Pulse 97 02/20/24 07:54 Resp 16 02/20/24 04:00 BP 123/71 02/20/24 04:00 Pulse Ox 967 H 02/20/24 07:54 FiO2 Intake & Output 02/19/24 02/20/24 02/20/24 18:59 06:59 18:59 Intake Total 600 Output Total 1400 1650 Balance -800 -1650 Intake: Oral 600 Output: Urine 1400 1650 Other: Voiding Method Indwelling Catheter Indwelling Catheter - Constitutional General appearance: Present: average body habitus, cooperative - EENT Eyes: Present: PERRLA Ears: bilateral: normal - Neck Carotids: bilateral: upstroke normal Thyroid: bilateral: normal size - Respiratory Respiratory: bilateral: CTA - Cardiovascular Rhythm: regular Heart sounds: normal: S1, S2 - Gastrointestinal General gastrointestinal: Present: soft - Neurologic Neurologic: Present: CNII-XII intact - Musculoskeletal Musculoskeletal: Present: gait normal, generalized weakness, strength equal bilaterally - Psychiatric Psychiatric: Present: A&O x's 3, appropriate affect, intact judgment & insight - Labs CBC & Chem 7: 02/20/24 07:43 02/20/24 07:43 Labs: Abnormal Lab Results - Last 24 Hours (Table) 02/19/24 02/19/24 02/19/24 Range/Units 11:36 17:10 20:29 RBC (3.80-5.40) m/uL Neutrophils # (1.3-7.7) k/uL Lymphocytes # (1.0-4.8) k/uL Sodium (137-145) mmol/L Potassium (3.5-5.1) mmol/L Creatinine (0.52-1.04) mg/dL Glucose (74-99) mg/dL POC Glucose (mg/dL) 201 H 255 H 239 H (70-110) mg/dL Calcium (8.4-10.2) mg/dL Alkaline Phosphatase (38-126) U/L Total Protein (6.3-8.2) g/dL Albumin (3.5-5.0) g/dL 02/20/24 02/20/24 02/20/24 Range/Units 06:14 07:43 07:43 RBC 3.55 L (3.80-5.40) m/uL Neutrophils # 8.8 H (1.3-7.7) k/uL Lymphocytes # 0.9 L (1.0-4.8) k/uL Sodium 133 L (137-145) mmol/L Potassium 3.4 L (3.5-5.1) mmol/L Creatinine 0.25 L (0.52-1.04) mg/dL Glucose 172 H (74-99) mg/dL POC Glucose (mg/dL) 181 H (70-110) mg/dL Calcium 7.9 L (8.4-10.2) mg/dL Alkaline Phosphatase 244 H (38-126) U/L Total Protein 4.6 L (6.3-8.2) g/dL Albumin 2.3 L (3.5-5.0) g/dL Microbiology - Last 24 Hours (Table) 02/14/24 06:01 Blood Culture - Final Blood Assessment and Plan Assessment: hypokalemia blood culture positive for Sarah ID services been following UTI with Sarah and chronic Horn's catheter Frequent falls, Generalized weakness and medical debility Compression fracture of LS his spine History is to sacral decubitus ulcer Chronic weight loss of unclear etiology Urinary tract infection chronic Dyslipidemia Hypertension hypertensive cardiovascular disease Type 2 diabetes mellitus COPD Leukocytosis Plan: replace potassium continue supplemental oxygen PT OT evaluation and increase activity as tolerated Continue broad-spectrum antibiotics pain control with hydrocodone/[place] Continue bronchodilators with DuoNeb Continue antihypertensive agent with Norvasc Continue IV fluconazole ID service has been following Sliding scale insulin with shortness along acting insulin Continue Zosyn Time with Patient: Greater than 30
[2024-02-20] MEDS: POTASSIUM CHLORIDE ER 20 MEQ TAB.ER PO STA (10:55)
[2024-02-20 11:25] LABS: Glucose,Whole Blood 287 mg/dL (70-110)
--- NOTE | 2024-02-20 13:59 | P.PN ---
Subjective Progress Note Date: 02/20/24 On 02/14/2024, the patient is being seen for a follow-up. This patient was initially hospitalized on 01/30/2024 and the patient has been in the hospital since. The patient is known to have COPD and diabetes mellitus and she is a chronic smoker and she has a chronic indwelling Horn catheter in place that was placed in a previous hospitalization at [facility]. The patient during this current hospital stay was treated for hypoxic respiratory failure and the CAT scan of the chest that was done at time of admission showed no evidence of any pulmonary embolism and there was extensive atelectatic change the lung base bilaterally right more than left with bilateral pleural effusion and the patient was covered with IV Zosyn. In addition to COPD, she is known to have hypertension hyperlipidemia and diabetes mellitus type 2 and chronic urinary retention and the patient has a Horn catheter in place and she has sustained compression fractures of her spine and she has significant debility impaired performance and functional status and she has been essentially bedbound for the past few months. She has had previous episodes of fall and sacral decubitus ulceration. The patient currently is having issues with constipation. The patient was supposed to go and have a decompression colonoscopy by general surgery today. The patient is also having issues with persistent leukocytosis. During this current admission, the patient's white cell count gradually went up and currently is up to 31. There is a positive blood culture with Sarah albicans from 02/11/2024 and urine culture was also positive for Sarah not albicans species. Patient is currently being seen by infectious disease. The patient is currently on IV Zosyn and IV Diflucan. He is on 5 L of oxygen by nasal cannula with a pulse ox of 95%. She is currently afebrile. Infectious disease on the case and the patient is referred to a WBC tagged scan. 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 Most recent chest x- ray from 02/13/2024 shows similar-appearing atelectatic changes in an elevation of the right hemidiaphragm. On 02/15/2024, the patient is being seen for a follow-up. Clinically stable and hemodynamically stable. She remains on 6 of oxygen by nasal cannula with a pulse ox of 88 to 92%. Hemodynamically stable. No fever or chills. Remains on Diflucan. Results of the follow-up blood cultures still pending for now. Noted the patient had positive systemic candidemia with positive blood cultures with Sarah albicans. Remains on IV Diflucan. No evidence of any active GI bleeding. She is stooling. She is post colonoscopy and decompression of rectal fecaloma. The white cell count 23.7 with a hemoglobin 11.2 and a platelet count of 291. BUN is 23 with a creatinine of 0.2 and a sodium level of 136 and a potassium level is at 3.2. Potassium level is being replaced. She remains on bronchodilators patient remains on prednisone currently at a dose of 20 mg p.o. daily. She is on IV Zosyn. She is on lactulose 20 g 3 times daily. She is on Levemir insulin 5 units along with NovoLog 3 units with meals. She is on Actos in addition to Levemir insulin. No other complaints. No nausea. No emesis. No abdominal pain. No chest pain. Profoundly weak. On 02/16/2024, I am seeing the patient for a follow-up. The patient was tr ansferred out of the intensive care unit yesterday. She is calm and comfortable on 60s of oxygen by nasal cannula. I encouraged her to use incentive spirometer. No evidence of any GI bleeding and the patient is stooling for now. Hemoglobin stable at 10.9 with a WBC count of 18.2 which is improved compared to yesterday and a platelet count of 232. While using incentive spirometer, she is pulling approximately 750 cc. BUN is at 20 with a creatinine of 0.27 and sodium levels at 134. Rest of the treatment remains essentially unchanged. She remains on IV Diflucan. She remains on IV Zosyn. The repeat blood cultures from 02/14/2024 has shown no microbial or fungal growth. She is afebrile. She is hemodynamically stable at this point in time. On 02/20/2024, the patient is awake and alert and she is using incentive spirometer. Oxygenation is slightly improved compared to yesterday currently she is at 5 L with a pulse ox of 92%. Having regular bowel movements. No constipation. No abdominal distention. Remains on IV Diflucan regarding her systemic fungemia with a white cell count of 16.7 and hemoglobin 11.4. BUN is at 16 with a creatinine of 0.26 and a sodium levels at 133. No other complaints otherwise for now. No fever. Hemodynamically stable. On 02/18/2024, the patient is doing well and using the incentive spirometer. Oxygenation is improved and the patient is currently down to 40 to monitor by nasal cannula. No issues with constipation. No issues with mental status change. Tolerating diet. Remains on IV Diflucan. No other complaints. Blood cultures from 02/11/2024 and 02/14/2024 were negative. The white cell count continues to gradually improve is currently down to 15.9. Hemoglobin 11.8. Electrolytes are normal. BUN is at 14 with a creatinine of 0.2. 02/19/2024, the patient is being seen for a follow-up. She is using the incentive spirometer on a regular basis. On 3 L, pulse ox is 99%. No new complaints otherwise for now. No respiratory distress. Resting comfortably in bed. No new labs are available from today. Remains on IV Diflucan and as mentioned, the repeat blood cultures have been negative. Tolerating diet. No nausea. No emesis. No altered mentation. On 02/20/2024, clinically stable and the patient returns parameters and following approximately 1000. Oxygenation is improved and the patient is currently on 2 L of oxygen by nasal cannula. No respiratory distress. Continues to be on IV Diflucan and IV Zosyn. No fever. The white cell count is dropped down to 10.3 with a hemoglobin of 11.7 and a platelet count of 266. BUN is 12 with a creatinine of 0.25 and a sodium levels at 133 with a potassium level of 3.4. Objective - Vital Signs Vital signs: Vital Signs Temp 98.1 F 02/20/24 04:00 Pulse 84 02/20/24 11:12 Resp 16 02/20/24 04:00 BP 123/71 02/20/24 04:00 Pulse Ox 96 02/20/24 07:54 FiO2 Intake & Output 02/19/24 02/20/24 02/20/24 18:59 06:59 18:59 Intake Total 600 Output Total 1400 1650 Balance -800 -1650 Intake: Oral 600 Output: Urine 1400 1650 Other: Voiding Method Indwelling Catheter Indwelling Catheter - Exam No acute distress, oriented 3. No respiratory distress. Currently on 5 L of oxygen by nasal cannula HEENT examination is grossly unremarkable. Mucous membranes are moist. No oral lesions. Neck supple. Full range of motion. No adenopathy thyromegaly or neck vein distention. Cardiovascular examination reveals regular rhythm rate. S1-S2 normal. No S3 or S4. No discernible murmur noted. Heart sounds are distant. Lungs reveal mild scattered rhonchi. No wheezes or crackles. Breath sounds equal. Diminished breath sound lung base bilaterally Abdomen soft bowel sounds are heard. No masses or tenderness. Extremities are intact. No cyanosis clubbing or edema. Skin is without rash or lesion. Neurologic examination is brief but nonfocal. - Labs CBC & Chem 7: 02/20/24 07:43 02/20/24 07:43 Labs: Abnormal Lab Results - Last 24 Hours (Table) 02/19/24 02/19/24 02/19/24 Range/Units 11:36 17:10 20:29 RBC (3.80-5.40) m/uL Neutrophils # (1.3-7.7) k/uL Lymphocytes # (1.0-4.8) k/uL Sodium (137-145) mmol/L Potassium (3.5-5.1) mmol/L Creatinine (0.52-1.04) mg/dL Glucose (74-99) mg/dL POC Glucose (mg/dL) 201 H 255 H 239 H (70-110) mg/dL Calcium (8.4-10.2) mg/dL Alkaline Phosphatase (38-126) U/L Total Protein (6.3-8.2) g/dL Albumin (3.5-5.0) g/dL 02/20/24 02/20/24 02/20/24 Range/Units 06:14 07:43 07:43 RBC 3.55 L (3.80-5.40) m/uL Neutrophils # 8.8 H (1.3-7.7) k/uL Lymphocytes # 0.9 L (1.0-4.8) k/uL Sodium 133 L (137-145) mmol/L Potassium 3.4 L (3.5-5.1) mmol/L Creatinine 0.25 L (0.52-1.04) mg/dL Glucose 172 H (74-99) mg/dL POC Glucose (mg/dL) 181 H (70-110) mg/dL Calcium 7.9 L (8.4-10.2) mg/dL Alkaline Phosphatase 244 H (38-126) U/L Total Protein 4.6 L (6.3-8.2) g/dL Albumin 2.3 L (3.5-5.0) g/dL Microbiology - Last 24 Hours (Table) 02/14/24 06:01 Blood Culture - Final Blood Assessment and Plan Plan: Acute hypoxic respiratory failure currently on 2 L of oxygen by nasal cannula CTA of the chest shows no evidence of any pulmonary embolism. Extensive atelectatic changes in lung base bilaterally right more than left with small pleural effusions. Consider aspiration. The patient remains on Zosyn. She does have atelectatic changes and chronic diaphragmatic elevation more so on the right. Oxygenation gradually improved and the patient is utilizing incentive spirometer and she has been weaned down to 2 L of O2 nasal cannula. Systemic fungemia with Sarah albicans in the blood, urine and the source cannot be completely ruled out, and the patient is currently on IV Diflucan. Repeat blood culture from 02/14/2024 has shown no bacterial or fungal growth. The patient remains on IV Diflucan. Constipation and fecaloma in the rectum, awaiting colonoscopy for decompression, patient encountered some rectal bleeding following the colonoscopy and this has subsided, the patient continues to stool. Leukocytosis, white cell count is improving slowly, white cell count 10 COPD Diabetes mellitus type 2 Hypertension Hyperlipidemia Chronic urinary retention maintained on a chronic indwelling Horn catheter, urine culture was also positive for Sarah Weight loss, unexplained Compression fracture of the spine Stage II sacral decub ulcer Significant debility and impaired performance and functional status and the patient is currently unable to ambulate and she has been essentially chair/bedbound for the past month or so. Frequent falls, hospitalized at [facility]. Plan Patient is demonstrating ongoing improvement in oxygenation. Oxygenation is stable at 2 L of O2 nasal cannula Continue using the incentive spirometer Patient completed decompression colonoscopy for constipation and rectal fecaloma No evidence of any GI bleeding, hemoglobin is stable Monitor the white cell count, improving Repeat blood cultures, Of concern is the systemic candidemia, results are still pending for now, negative based on the culture that was obtained on 02/14/2024 and also from 02/11/2024. Patient remains on a combination of Zosyn and Diflucan for now Source of the systemic candidemia is most likely a urinary source as the patient had a chronically indwelling Horn catheter in place with frequent hospitalizations. GI source is felt to be less likely. The patient is currently on Diflucan. Continue lactulose 20 g p.o. 3 times daily Levemir insulin 5 units along with NovoLog 3 units with meals Continue Actos Prednisone 10 mg p.o. daily ID is on the case General surgery is on the case Will continue to follow Physical therapy and encourage use of incentive spirometer.
[2024-02-20 16:10] LABS: Glucose,Whole Blood 229 mg/dL (70-110)
[2024-02-20 20:44] LABS: Glucose,Whole Blood 167 mg/dL (70-110)
[2024-02-21 06:22] LABS: Glucose,Whole Blood 319 mg/dL (70-110)
[2024-02-21 09:28] LABS: Basophils # (A) 0.03 X 10*3/uL (0.00-0.10); Basophils % (A) 0.3 %; Eosinophils # (A) 0.15 X 10*3/uL (0.04-0.35); Eosinophils % (A) 1.6 %; HCT 30.9 % (37.2-46.3); HGB 10.3 g/dL (12.0-15.0); Lymphocytes # (A) 0.82 X 10*3/uL (0.90-5.00); Lymphocytes % (A) 8.7 %; MCH 32.2 pg (27.0-32.0); MCHC 33.3 g/dL (32.0-37.0); MCV 96.6 FL (80.0-97.0); Mean Platelet Volume 9.6 FL (9.5-12.2); Monocytes # (A) 0.37 X 10*3/uL (0.20-1.00); Monocytes % (A) 3.9 %; NRBC Per 100 WBC 0 X 10*3/uL (0.00-0.01); Neutrophils # (A) 8.04 X 10*3/uL (1.80-7.70); Neutrophils % (A) 84.9 %; Platelet Count 258 X 10*3/uL (140-440); RDW 14.8 % (11.5-14.5); WBC 9.47 X 10*3/uL (4.50-10.00)
[2024-02-21 11:39] LABS: Glucose,Whole Blood 118 mg/dL (70-110)
--- NOTE | 2024-02-21 16:06 | P.PN ---
Subjective Progress Note Date: 02/21/24 On 02/14/2024, the patient is being seen for a follow-up. This patient was initially hospitalized on 01/30/2024 and the patient has been in the hospital since. The patient is known to have COPD and diabetes mellitus and she is a chronic smoker and she has a chronic indwelling Horn catheter in place that was placed in a previous hospitalization at [facility]. The patient during this current hospital stay was treated for hypoxic respiratory failure and the CAT scan of the chest that was done at time of admission showed no evidence of any pulmonary embolism and there was extensive atelectatic change the lung base bilaterally right more than left with bilateral pleural effusion and the patient was covered with IV Zosyn. In addition to COPD, she is known to have hypertension hyperlipidemia and diabetes mellitus type 2 and chronic urinary retention and the patient has a Horn catheter in place and she has sustained compression fractures of her spine and she has significant debility impaired performance and functional status and she has been essentially bedbound for the past few months. She has had previous episodes of fall and sacral decubitus ulceration. The patient currently is having issues with constipation. The patient was supposed to go and have a decompression colonoscopy by general surgery today. The patient is also having issues with persistent leukocytosis. During this current admission, the patient's white cell count gradually went up and currently is up to 31. There is a positive blood culture with Sarah albicans from 02/11/2024 and urine culture was also positive for Sarah not albicans species. Patient is currently being seen by infectious disease. The patient is currently on IV Zosyn and IV Diflucan. He is on 5 L of oxygen by nasal cannula with a pulse ox of 95%. She is currently afebrile. Infectious disease on the case and the patient is referred to a WBC tagged scan. 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 Most recent chest x- ray from 02/13/2024 shows similar-appearing atelectatic changes in an elevation of the right hemidiaphragm. On 02/15/2024, the patient is being seen for a follow-up. Clinically stable and hemodynamically stable. She remains on 6 of oxygen by nasal cannula with a pulse ox of 88 to 92%. Hemodynamically stable. No fever or chills. Remains on Diflucan. Results of the follow-up blood cultures still pending for now. Noted the patient had positive systemic candidemia with positive blood cultures with Sarah albicans. Remains on IV Diflucan. No evidence of any active GI bleeding. She is stooling. She is post colonoscopy and decompression of rectal fecaloma. The white cell count 23.7 with a hemoglobin 11.2 and a platelet count of 291. BUN is 23 with a creatinine of 0.2 and a sodium level of 136 and a potassium level is at 3.2. Potassium level is being replaced. She remains on bronchodilators patient remains on prednisone currently at a dose of 20 mg p.o. daily. She is on IV Zosyn. She is on lactulose 20 g 3 times daily. She is on Levemir insulin 5 units along with NovoLog 3 units with meals. She is on Actos in addition to Levemir insulin. No other complaints. No nausea. No emesis. No abdominal pain. No chest pain. Profoundly weak. On 02/16/2024, I am seeing the patient for a follow-up. The patient was tr ansferred out of the intensive care unit yesterday. She is calm and comfortable on 60s of oxygen by nasal cannula. I encouraged her to use incentive spirometer. No evidence of any GI bleeding and the patient is stooling for now. Hemoglobin stable at 10.9 with a WBC count of 18.2 which is improved compared to yesterday and a platelet count of 232. While using incentive spirometer, she is pulling approximately 750 cc. BUN is at 20 with a creatinine of 0.27 and sodium levels at 134. Rest of the treatment remains essentially unchanged. She remains on IV Diflucan. She remains on IV Zosyn. The repeat blood cultures from 02/14/2024 has shown no microbial or fungal growth. She is afebrile. She is hemodynamically stable at this point in time. On 02/20/2024, the patient is awake and alert and she is using incentive spirometer. Oxygenation is slightly improved compared to yesterday currently she is at 5 L with a pulse ox of 92%. Having regular bowel movements. No constipation. No abdominal distention. Remains on IV Diflucan regarding her systemic fungemia with a white cell count of 16.7 and hemoglobin 11.4. BUN is at 16 with a creatinine of 0.26 and a sodium levels at 133. No other complaints otherwise for now. No fever. Hemodynamically stable. On 02/18/2024, the patient is doing well and using the incentive spirometer. Oxygenation is improved and the patient is currently down to 40 to monitor by nasal cannula. No issues with constipation. No issues with mental status change. Tolerating diet. Remains on IV Diflucan. No other complaints. Blood cultures from 02/11/2024 and 02/14/2024 were negative. The white cell count continues to gradually improve is currently down to 15.9. Hemoglobin 11.8. Electrolytes are normal. BUN is at 14 with a creatinine of 0.2. 02/19/2024, the patient is being seen for a follow-up. She is using the incentive spirometer on a regular basis. On 3 L, pulse ox is 99%. No new complaints otherwise for now. No respiratory distress. Resting comfortably in bed. No new labs are available from today. Remains on IV Diflucan and as mentioned, the repeat blood cultures have been negative. Tolerating diet. No nausea. No emesis. No altered mentation. On 02/20/2024, clinically stable and the patient returns parameters and following approximately 1000. Oxygenation is improved and the patient is currently on 2 L of oxygen by nasal cannula. No respiratory distress. Continues to be on IV Diflucan and IV Zosyn. No fever. The white cell count is dropped down to 10.3 with a hemoglobin of 11.7 and a platelet count of 266. BUN is 12 with a creatinine of 0.25 and a sodium levels at 133 with a potassium level of 3.4. On 02/21/2024, the patient is on room air oxygen. No complaints. No respiratory distress. Pulse ox 97%. Remains on Diflucan. Hemodynamically stable. The white cell count is down to 9.4 with a hemoglobin of 10.3 and a platelet count of 258. Rest of the medications remain unchanged. Objective - Vital Signs Vital signs: Vital Signs Temp 98.6 F 02/21/24 07:04 Pulse 96 02/21/24 12:22 Resp 18 02/21/24 07:04 BP 151/82 02/21/24 07:04 Pulse Ox 98 02/21/24 07:04 FiO2 Intake & Output 02/20/24 02/21/24 02/21/24 18:59 06:59 18:59 Intake Total 358 Output Total 1999 1299 1300 Balance -1642 -1300 -1300 Weight 96 kg Intake: Oral 358 Output: Urine 1999 1299 1300 Other: Voiding Method Indwelling Catheter Indwelling Catheter Indwelling Catheter - Exam No acute distress, oriented 3. No respiratory distress. Currently on 5 L of oxygen by nasal cannula HEENT examination is grossly unremarkable. Mucous membranes are moist. No oral lesions. Neck supple. Full range of motion. No adenopathy thyromegaly or neck vein distention. Cardiovascular examination reveals regular rhythm rate. S1-S2 normal. No S3 or S4. No discernible murmur noted. Heart sounds are distant. Lungs reveal mild scattered rhonchi. No wheezes or crackles. Breath sounds equal. Diminished breath sound lung base bilaterally Abdomen soft bowel sounds are heard. No masses or tenderness. Extremities are intact. No cyanosis clubbing or edema. Skin is without rash or lesion. Neurologic examination is brief but nonfocal. - Labs CBC & Chem 7: 02/21/24 04:54 02/20/24 07:43 Labs: Abnormal Lab Results - Last 24 Hours (Table) 02/20/24 02/20/24 02/21/24 Range/Units 16:08 20:42 04:54 RBC 3.20 L (4.10-5.20) X 10*6/uL Hgb 10.3 L (12.0-15.0) g/dL Hct 30.9 L (37.2-46.3) % MCH 32.2 H (27.0-32.0) pg RDW 14.8 H (11.5-14.5) % Immature Gran # 0.06 H (0.00-0.04) X 10*3/uL Neutrophils # 8.04 H (1.80-7.70) X 10*3/uL Lymphocytes # 0.82 L (0.90-5.00) X 10*3/uL POC Glucose (mg/dL) 229 H 167 H (70-110) mg/dL 02/21/24 02/21/24 Range/Units 06:20 11:37 RBC (4.10-5.20) X 10*6/uL Hgb (12.0-15.0) g/dL Hct (37.2-46.3) % MCH (27.0-32.0) pg RDW (11.5-14.5) % Immature Gran # (0.00-0.04) X 10*3/uL Neutrophils # (1.80-7.70) X 10*3/uL Lymphocytes # (0.90-5.00) X 10*3/uL POC Glucose (mg/dL) 319 H 118 H (70-110) mg/dL Assessment and Plan Plan: Acute hypoxic respiratory failure recovered and the patient is currently on room air oxygen Systemic fungemia with Sarah albicans in the blood, urine and the source cannot be completely ruled out, and the patient is currently on IV Diflucan. Repeat blood culture from 02/14/2024 has shown no bacterial or fungal growth. The patient remains on IV Diflucan. Constipation and fecaloma in the rectum, awaiting colonoscopy for decompression, patient encountered some rectal bleeding following the colonoscopy and this has subsided, the patient continues to stool. Leukocytosis, white cell count is improved COPD Diabetes mellitus type 2 Hypertension Hyperlipidemia Chronic urinary retention maintained on a chronic indwelling Horn catheter, urine culture was also positive for Sarah Weight loss, unexplained Compression fracture of the spine Stage II sacral decub ulcer Significant debility and impaired performance and functional status and the patient is currently unable to ambulate and she has been essentially chair/bedbound for the past month or so. Frequent falls, hospitalized at [facility]. Plan Patient is currently on room air oxygen Continue using the incentive spirometer Patient completed decompression colonoscopy for constipation and rectal fecaloma No evidence of any GI bleeding, hemoglobin is stable The white cell count is improved Repeat blood cultures, Of concern is the systemic candidemia, results are still pending for now, negative based on the culture that was obtained on 02/14/2024 and also from 02/11/2024. Patient remains on a combination of Zosyn and Diflucan for now Source of the systemic candidemia is most likely a urinary source as the patient had a chronically indwelling Horn catheter in place with frequent hospitalizations. GI source is felt to be less likely. The patient is currently on Diflucan. Continue lactulose 20 g p.o. 3 times daily Levemir insulin 5 units along with NovoLog 3 units with meals Continue Actos Prednisone 10 mg p.o. daily ID is on the case General surgery is on the case Discharge planning. Pulmonary will sign off
[2024-02-21 16:21] LABS: Glucose,Whole Blood 277 mg/dL (70-110)
--- NOTE | 2024-02-21 17:18 | P.PN ---
Subjective Progress Note Date: 02/21/24 Principal diagnosis: Frequent falls, Generalized weakness and medical debility Compression fracture of LS his spine History is to sacral decubitus ulcer Chronic weight loss of unclear etiology Urinary tract infection chronic Dyslipidemia Hypertension hypertensive cardiovascular disease Type 2 diabetes mellitus COPD Leukocytosis 02/21/2024, patient seen eval reexamined during the rounds labs reviewed medications reviewed, shortness of breath improved, patient remains on room air, and denies any chest pain fever or chills, continue bronchodilator along with IV Zosyn and Diflucan 02/20/2024, patient seen eval examined during rounds ongoing shortness of breath is present on minimal activity and exertion denies any chest pain, FiO2 have been lowered down to 2 L from 4 L now.labs from today reviewed sodium is 1:30 to 30.4 BUN/creatinine 12/0.25, LFTs within normal limit patient is afebrile hemodynamically stable, oxygen saturation 96% on 2 L oxygen. Patient remains on bronchodilator with that given amp also on IV Diflucan and Zosyn 02/19/2024 Patient awake and alert laying down in the bed in no obvious distress present, patient remains on supplemental oxygen at 4 L nasal cannula, remains on broad-spectrum antibiotics denies any chest pain tolerating antibiotics well, last chest x-ray performed reviewed right-sided small pleural effusion is seen Objective - Vital Signs Vital signs: Vital Signs Temp 98.7 F 02/21/24 13:56 Pulse 100 02/21/24 16:39 Resp 17 02/21/24 13:56 BP 120/70 02/21/24 13:56 Pulse Ox 97 02/21/24 13:56 FiO2 Intake & Output 02/20/24 02/21/24 02/21/24 18:59 06:59 18:59 Intake Total 358 Output Total 1999 1299 1999 Balance -1641 Weight 96 kg Intake: Oral 358 Output: Urine 1999 1299 1999 Other: Voiding Method Indwelling Catheter Indwelling Catheter Indwelling Catheter - Exam - Constitutional General appearance: Present: average body habitus, cooperative - EENT Eyes: Present: PERRLA Ears: bilateral: normal - Neck Carotids: bilateral: upstroke normal Thyroid: bilateral: normal size - Respiratory Respiratory: bilateral: CTA - Cardiovascular Rhythm: regular Heart sounds: normal: S1, S2 - Gastrointestinal General gastrointestinal: Present: soft - Neurologic Neurologic: Present: CNII-XII intact - Musculoskeletal Musculoskeletal: Present: gait normal, generalized weakness, strength equal bilaterally - Psychiatric Psychiatric: Present: A&O x's 3, appropriate affect, intact judgment & insigh - Labs CBC & Chem 7: 02/21/24 04:54 02/20/24 07:43 Labs: Abnormal Lab Results - Last 24 Hours (Table) 02/20/24 02/21/24 02/21/24 Range/Units 20:42 04:54 06:20 RBC 3.20 L (4.10-5.20) X 10*6/uL Hgb 10.3 L (12.0-15.0) g/dL Hct 30.9 L (37.2-46.3) % MCH 32.2 H (27.0-32.0) pg RDW 14.8 H (11.5-14.5) % Immature Gran # 0.06 H (0.00-0.04) X 10*3/uL Neutrophils # 8.04 H (1.80-7.70) X 10*3/uL Lymphocytes # 0.82 L (0.90-5.00) X 10*3/uL POC Glucose (mg/dL) 167 H 319 H (70-110) mg/dL 02/21/24 02/21/24 Range/Units 11:37 16:20 RBC (4.10-5.20) X 10*6/uL Hgb (12.0-15.0) g/dL Hct (37.2-46.3) % MCH (27.0-32.0) pg RDW (11.5-14.5) % Immature Gran # (0.00-0.04) X 10*3/uL Neutrophils # (1.80-7.70) X 10*3/uL Lymphocytes # (0.90-5.00) X 10*3/uL POC Glucose (mg/dL) 118 H 277 H (70-110) mg/dL Assessment and Plan Assessment: hypokalemia blood culture positive for Sarah ID services been following UTI with Sarah and chronic Horn's catheter Frequent falls, Generalized weakness and medical debility Compression fracture of LS his spine History is to sacral decubitus ulcer Chronic weight loss of unclear etiology Urinary tract infection chronic Dyslipidemia Hypertension hypertensive cardiovascular disease Type 2 diabetes mellitus COPD Leukocytosis Plan: replace potassium continue supplemental oxygen PT OT evaluation and increase activity as tolerated Continue broad-spectrum antibiotics pain control with hydrocodone/[place] Continue bronchodilators with DuoNeb Continue antihypertensive agent with Norvasc Continue IV fluconazole ID service has been following Sliding scale insulin with shortness along acting insulin Continue Zosyn Time with Patient: Greater than 30
[2024-02-21 21:16] LABS: Glucose,Whole Blood 192 mg/dL (70-110)
[2024-02-22 06:18] LABS: Glucose,Whole Blood 275 mg/dL (70-110)
--- NOTE | 2024-02-22 08:22 | P.PN ---
Subjective Progress Note Date: 02/20/24 Principal diagnosis: Reason for follow-up is UTI question of pneumonia and a sacral pressure ulcer Patient is a 63-year-old female with a past medical history significan t for diabetes mellitus hypertension hyperlipidemia COPD current everyday smoker, recent multiple admission to the [facility] for UTI followed with the compression fracture of the spine and hypoglycemia has been brought in to [facility] for evaluation of increasing shortness of breath did have abnormal CT angiogram of the chest concerning for effusion atelectasis positive UA concerning for UTI and the patient also have a sacral pressure ulcer. On today's evaluation that is 02/20/2024, the patient continues to be afebrile, the patient is on 2 L nasal cannula oxygen and breathing comfortably, the Pt denies having any chest pain or cough, the patient denies having any abdominal pain no vomiting and did have a bowel movement Patient white normalized to 10.3 creatinine 0.25 Objective - Vital Signs Vital signs: Vital Signs Temp 98.1 F 02/20/24 04:00 Pulse 97 02/20/24 07:54 Resp 16 02/20/24 04:00 BP 123/71 02/20/24 04:00 Pulse Ox 967 H 02/20/24 07:54 FiO2 Intake & Output 02/19/24 02/20/24 02/20/24 18:59 06:59 18:59 Intake Total 600 Output Total 1400 1650 Balance -800 -1650 Intake: Oral 600 Output: Urine 1400 1650 Other: Voiding Method Indwelling Catheter Indwelling Catheter - Exam GENERAL DESCRIPTION: Middle-aged female lying in bed in no distress RESPIRATORY SYSTEM: Unlabored breathing , decreased breath sounds at bases HEART: S1 S2 regular rate and rhythm , ABDOMEN: Soft , no tenderness EXTREMITIES: No edema feet - Labs CBC & Chem 7: 02/21/24 04:54 02/20/24 07:43 Labs: Abnormal Lab Results - Last 24 Hours (Table) 02/19/24 02/19/24 02/19/24 Range/Units 11:36 17:10 20:29 RBC (3.80-5.40) m/uL Neutrophils # (1.3-7.7) k/uL Lymphocytes # (1.0-4.8) k/uL Sodium (137-145) mmol/L Potassium (3.5-5.1) mmol/L Creatinine (0.52-1.04) mg/dL Glucose (74-99) mg/dL POC Glucose (mg/dL) 201 H 255 H 239 H (70-110) mg/dL Calcium (8.4-10.2) mg/dL Alkaline Phosphatase (38-126) U/L Total Protein (6.3-8.2) g/dL Albumin (3.5-5.0) g/dL 02/20/24 02/20/24 02/20/24 Range/Units 06:14 07:43 07:43 RBC 3.55 L (3.80-5.40) m/uL Neutrophils # 8.8 H (1.3-7.7) k/uL Lymphocytes # 0.9 L (1.0-4.8) k/uL Sodium 133 L (137-145) mmol/L Potassium 3.4 L (3.5-5.1) mmol/L Creatinine 0.25 L (0.52-1.04) mg/dL Glucose 172 H (74-99) mg/dL POC Glucose (mg/dL) 181 H (70-110) mg/dL Calcium 7.9 L (8.4-10.2) mg/dL Alkaline Phosphatase 244 H (38-126) U/L Total Protein 4.6 L (6.3-8.2) g/dL Albumin 2.3 L (3.5-5.0) g/dL Microbiology - Last 24 Hours (Table) 02/14/24 06:01 Blood Culture - Final Blood Assessment and Plan (1) Stage III pressure ulcer of sacral region Current Visit: Yes Status: Acute Code(s): L89.153 - PRESSURE ULCER OF SACRAL REGION, STAGE 3 SNOMED Code(s): 60294945083072 (2) Urinary tract infection Current Visit: Yes Status: Acute Code(s): N39.0 - URINARY TRACT INFECTION, SITE NOT SPECIFIED SNOMED Code(s): 13536632 (3) Aspiration pneumonia Current Visit: Yes Status: Acute Code(s): J69.0 - PNEUMONITIS DUE TO INHALATION OF FOOD AND VOMIT SNOMED Code(s): 089338238 (4) Candidemia Current Visit: Yes Status: Acute Code(s): B37.7 - CANDIDAL SEPSIS SNOMED Code(s): 635314906 Plan: 1patient with worsening of the white count no bowel movement for the last 4 to 5 days, patient did have CT abdominal pelvis CT shows large stool burden throughout the colon with 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 General surgery is planning for manually formation in the endoscopy suite tomorrow patient is covered with Zosyn 2-patient clinical course complicated by development of candidemia positive blood culture with Sarah albicans possible GI source, patient is s/p manual evaluation of her fecaloma completed on 02/14/2024 did have some rectal bleeding for the patient has been transferred to the ICU subsequently stabilized and transferred out of the ICU 3patient is afebrile white count has normalized 4-patient to continue with the Zosyn and Diflucan, and monitor clinical course closely Dictation was produced using [employer] dictation software. please excuse any grammatical, word or spelling errors. Time with Patient: Less than 30
--- NOTE | 2024-02-22 08:23 | P.PN ---
Subjective Progress Note Date: 02/21/24 Principal diagnosis: Reason for follow-up is UTI question of pneumonia and a sacral pressure ulcer Patient is a 63-year-old female with a past medical history significan t for diabetes mellitus hypertension hyperlipidemia COPD current everyday smoker, recent multiple admission to the [facility] for UTI followed with the compression fracture of the spine and hypoglycemia has been brought in to [facility] for evaluation of increasing shortness of breath did have abnormal CT angiogram of the chest concerning for effusion atelectasis positive UA concerning for UTI and the patient also have a sacral pressure ulcer. On today's evaluation that is 02/21/2024, Patient is afebrile patient is currently on room air and denies having any shortness of breath, the patient denies any chest pain or cough, the patient denies any nausea vomiting did not have any abdominal pain and patient did have a bowel movement. Patient white count is 9.47 no BMP was done today blood culture repeat has been negative Objective - Vital Signs Vital signs: Vital Signs Temp 98.7 F 02/21/24 13:56 Pulse 100 02/21/24 16:39 Resp 17 02/21/24 13:56 BP 120/70 02/21/24 13:56 Pulse Ox 97 02/21/24 13:56 FiO2 Intake & Output 02/20/24 02/21/24 02/21/24 18:59 06:59 18:59 Intake Total 358 Output Total 1999 1299 1999 Balance -4430 -1299 Weight 96 kg Intake: Oral 358 Output: Urine 1999 1299 1999 Other: Voiding Method Indwelling Catheter Indwelling Catheter Indwelling Catheter - Exam GENERAL DESCRIPTION: Middle-aged female lying in bed in no distress RESPIRATORY SYSTEM: Unlabored breathing , decreased breath sounds at bases HEART: S1 S2 regular rate and rhythm , ABDOMEN: Soft , no tenderness EXTREMITIES: No edema feet - Labs CBC & Chem 7: 02/21/24 04:54 02/20/24 07:43 Labs: Abnormal Lab Results - Last 24 Hours (Table) 02/20/24 02/21/24 02/21/24 Range/Units 20:42 04:54 06:20 RBC 3.20 L (4.10-5.20) X 10*6/uL Hgb 10.3 L (12.0-15.0) g/dL Hct 30.9 L (37.2-46.3) % MCH 32.2 H (27.0-32.0) pg RDW 14.8 H (11.5-14.5) % Immature Gran # 0.06 H (0.00-0.04) X 10*3/uL Neutrophils # 8.04 H (1.80-7.70) X 10*3/uL Lymphocytes # 0.82 L (0.90-5.00) X 10*3/uL POC Glucose (mg/dL) 167 H 319 H (70-110) mg/dL 02/21/24 02/21/24 Range/Units 11:37 16:20 RBC (4.10-5.20) X 10*6/uL Hgb (12.0-15.0) g/dL Hct (37.2-46.3) % MCH (27.0-32.0) pg RDW (11.5-14.5) % Immature Gran # (0.00-0.04) X 10*3/uL Neutrophils # (1.80-7.70) X 10*3/uL Lymphocytes # (0.90-5.00) X 10*3/uL POC Glucose (mg/dL) 118 H 277 H (70-110) mg/dL Assessment and Plan (1) Stage III pressure ulcer of sacral region Current Visit: Yes Status: Acute Code(s): L89.153 - PRESSURE ULCER OF SACRAL REGION, STAGE 3 SNOMED Code(s): 01726508308991 (2) Urinary tract infection Current Visit: Yes Status: Acute Code(s): N39.0 - URINARY TRACT INFECTION, SITE NOT SPECIFIED SNOMED Code(s): 77355930 (3) Aspiration pneumonia Current Visit: Yes Status: Acute Code(s): J69.0 - PNEUMONITIS DUE TO INHALATION OF FOOD AND VOMIT SNOMED Code(s): 592839762 (4) Candidemia Current Visit: Yes Status: Acute Code(s): B37.7 - CANDIDAL SEPSIS SNOMED Code(s): 965058306 Plan: 1patient with worsening of the white count no bowel movement for the last 4 to 5 days, patient did have CT abdominal pelvis CT shows large stool burden throughout the colon with 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 General surgery is planning for manually formation in the endoscopy suite tomorrow patient is covered with Zosyn 2-patient clinical course complicated by development of candidemia positive blood culture with Sarah albicans possible GI source, patient is s/p manual evaluation of her fecaloma completed on 02/14/2024 did have some rectal bleeding for the patient has been transferred to the ICU subsequently stabilized and transferred out of the ICU 3patient is afebrile white count has normalized and repeat blood culture has been negative 4-patient to continue with the Zosyn and Diflucan, patient be able to finish therapy with oral Augmentin and oral Diflucan on discharge no need for IV antibiotics on discharge Dictation was produced using [employer] dictation software. please excuse any grammatical, word or spelling errors.
[2024-02-22 12:10] LABS: Glucose,Whole Blood 256 mg/dL (70-110)
--- NOTE | 2024-02-22 13:54 | PN ---
PROGRESS NOTE SUBJECTIVE: This is a 64-year-old white female, seen by Dr. Pathak, Dr. Palumbo. She has COPD, pulmonary hypertension. She had fecaloma which was removed. Leukocytosis 35,000, now is down to normal. She has been afebrile on room air. PT, OT has been involved. OBJECTIVE: VITAL SIGNS: Blood pressure 120/78, O2 97, temperature 98.7, pulse 100, respiratory rate 16 to 18. CARDIOVASCULAR: S1, S2. LUNGS: Transmitted upper sounds. HEMATOLOGY: Negative for Homans. PSYCH: Fair mood and affect. ASSESSMENT AND PLAN: COPD, pulmonary hypertension, generalized weakness, urinary tract infection, chronic weight loss, recent DKA, in other hospital, recent compression fracture, frequent falls, generalized anxiety. Continue current treatment. She is on supplemental 4 L oxygen. PT, OT is involved. Recent blood culture positive for Sarah, type 2 diabetes mellitus, COPD, leukocytosis, replace potassium, oxygen PT OT, broad-spectrum antibiotics, pain control and hypertension control. IV Diflucan, sliding scale for insulin. Continue Zosyn. Wait for recommendation. Possible rehab placement. Please see further orders. MMODL / IJN: [id number] /
--- NOTE | 2024-02-22 15:57 | P.PN ---
Subjective Progress Note Date: 02/22/24 Principal diagnosis: Reason for follow-up is UTI question of pneumonia and a sacral pressure ulcer Patient is a 63-year-old female with a past medical history significan t for diabetes mellitus hypertension hyperlipidemia COPD current everyday smoker, recent multiple admission to the [facility] for UTI followed with the compression fracture of the spine and hypoglycemia has been brought in to [facility] for evaluation of increasing shortness of breath did have abnormal CT angiogram of the chest concerning for effusion atelectasis positive UA concerning for UTI and the patient also have a sacral pressure ulcer. On today's evaluation that is 02/22/2024, patient has been afebrile, patient is breathing comfortably and is currently on room air, patient denies having any significant cough no chest pain shortness of breath, patient denies nausea vomiting patient denies any abdominal pain he did not have any bowel movement today. No new labs were obtained today Objective - Vital Signs Vital signs: Vital Signs Temp 98.4 F 02/22/24 07:28 Pulse 96 02/22/24 12:23 Resp 16 02/22/24 07:28 BP 135/75 02/22/24 07:28 Pulse Ox 95 02/22/24 07:28 FiO2 Intake & Output 02/21/24 02/22/24 02/22/24 18:59 06:59 18:59 Output Total 1999 321 0885 Balance -1999 -133 -3837 Weight 96 kg Output: Urine 1999 575 1665 Other: Voiding Method Indwelling Catheter Indwelling Catheter Indwelling Catheter # Bowel Movements 1 - Exam GENERAL DESCRIPTION: Middle-aged female lying in bed in no distress RESPIRATORY SYSTEM: Unlabored breathing , decreased breath sounds at bases HEART: S1 S2 regular rate and rhythm , ABDOMEN: Soft , no tenderness EXTREMITIES: No edema feet - Labs CBC & Chem 7: 02/21/24 04:54 02/20/24 07:43 Labs: Abnormal Lab Results - Last 24 Hours (Table) 02/21/24 02/21/24 02/22/24 Range/Units 16:20 21:14 06:17 POC Glucose (mg/dL) 277 H 192 H 275 H (70-110) mg/dL 02/22/24 Range/Units 12:08 POC Glucose (mg/dL) 256 H (70-110) mg/dL Assessment and Plan (1) Stage III pressure ulcer of sacral region Current Visit: Yes Status: Acute Code(s): L89.153 - PRESSURE ULCER OF SACRAL REGION, STAGE 3 SNOMED Code(s): 16257403052111 (2) Urinary tract infection Current Visit: Yes Status: Acute Code(s): N39.0 - URINARY TRACT INFECTION, SITE NOT SPECIFIED SNOMED Code(s): 46317371 (3) Aspiration pneumonia Current Visit: Yes Status: Acute Code(s): J69.0 - PNEUMONITIS DUE TO INHALATION OF FOOD AND VOMIT SNOMED Code(s): 771444518 (4) Candidemia Current Visit: Yes Status: Acute Code(s): B37.7 - CANDIDAL SEPSIS SNOMED Code(s): 732445585 Plan: 1patient with worsening of the white count no bowel movement for the last 4 to 5 days, patient did have CT abdominal pelvis CT shows large stool burden throughout the colon with 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 General surgery is planning for manually formation in the endoscopy suite tomorrow patient is covered with Zosyn 2-patient clinical course complicated by development of candidemia positive b lood culture with Sarah albicans possible GI source, patient is s/p manual evaluation of her fecaloma completed on 02/14/2024 did have some rectal bleeding for the patient has been transferred to the ICU subsequently stabilized and transferred out of the ICU 3patient is afebrile white count has normalized and repeat blood culture has been negative 4-patient to continue with the Zosyn and Diflucan while inpatient,, patient will be able to finish therapy with oral Augmentin and oral Diflucan on discharge when stable from other financial services education consultant Dictation was produced using [employer] dictation software. please excuse any grammatical, word or spelling errors. Time with Patient: Less than 30
[2024-02-22 16:51] LABS: Glucose,Whole Blood 212 mg/dL (70-110)
--- NOTE | 2024-02-22 17:12 | P.CONS ---
History of Present Illness - Reason for Consult Consult date: 02/22/24 Rehab Needs - History of Present Illness PMR Consult Ms. Lucio is a 64 yo , right handed female, lives with her significant other in a 2 story home, but stays on the 1st floor; 4+1 RUBEN. Reports was independent with mobility, ADLS, but was falling a lot, thinks because of neuropathy. Was initially hospitalized on 01/30/2024 and the patient has been in the hospital since. The patient is known to have COPD and diabetes mellitus and she is a chronic smoker and she has a chronic indwelling Arceo catheter in place that was placed in a previous hospitalization at [facility]. The patient during this current hospital stay was treated for hypoxic respiratory failure and the CAT scan of the chest that was done at time of admission showed no evidence of any pulmonary embolism and there was extensive atelectatic change the lung base bilaterally right more than left with bilateral pleural effusion and the patient was covered with IV Zosyn. In addition to COPD, she is known to have hypertension hyperlipidemia and diabetes mellitus type 2 and chronic urinary retention and the patient has a Arceo catheter in place and she has sustained compression fractures of her spine and she has significant debility impaired performance and functional status and she has been essentially bedbound for the past few months. She has had previous episodes of fall and sacral decubitus ulceration. The patient currently is having issues with constipation. The patient was supposed to go and have a decompression colonoscopy by general surgery today. The patient is also having issues with persistent leukocytosis. During this current admission, the patient's white cell count gradually went up and currently is up to 31. There is a positive blood culture with Sarah albicans from 02/11/2024 and urine culture was also positive for Sarah not albicans species. Patient is currently being seen by infectious disease. The patient is currently on IV Zosyn and IV Diflucan. He is on 5 L of oxygen by nasal cannula with a pulse ox of 95%. She is currently afebrile. Infectious disease on the case and the patient is referred to a WBC tagged scan. 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 Most recent chest x- ray from 02/13/2024 shows similar-appearing atelectatic changes in an elevation of the right hemidiaphragm. On 02/15/2024, Clinically stable and hemodynamically stable. She remains on 6 of oxygen by nasal cannula with a pulse ox of 88 to 92%. Hemodynamically stable. No fever or chills. Remains on Diflucan. Results of the follow-up blood cultures still pending for now. Noted the patient had positive systemic candidemia with positive blood cultures with Sarah albicans. Remains on IV Diflucan. No evidence of any active GI bleeding. She is stooling. She is post colonoscopy and decompression of rectal fecaloma. The white cell count 23.7 with a hemoglobin 11.2 and a platelet count of 291. BUN is 23 with a creatinine of 0.2 and a sodium level of 136 and a potassium level is at 3.2. Potassium level is being replaced. She remains on bronchodilators patient remains on prednisone currently at a dose of 20 mg p.o. daily. She is on IV Zosyn. She is on lactulose 20 g 3 times daily. She is on Levemir insulin 5 units along with NovoLog 3 units with meals. She is on Actos in addition to Levemir insulin. No other complaints. No nausea. No emesis. No abdominal pain. No chest pain. Profoundly weak. On 02/18/2024, the patient is doing well and using the incentive spirometer. Oxygenation is improved and the patient is currently down to 40 to monitor by nasal cannula. No issues with constipation. No issues with mental status change. Tolerating diet. Remains on IV Diflucan. No other complaints. Blood cultures from 02/11/2024 and 02/14/2024 were negative. The white cell count continues to gradually improve is currently down to 15.9. Hemoglobin 11.8. Electrolytes are normal. BUN is at 14 with a creatinine of 0.2. On 02/20/2024, clinically stable and the patient returns parameters and following approximately 1000. Oxygenation is improved and the patient is currently on 2 L of oxygen by nasal cannula. No respiratory distress. Continues to be on IV Diflucan and IV Zosyn. No fever. The white cell count is dropped down to 10.3 with a hemoglobin of 11.7 and a platelet count of 266. BUN is 12 with a creatinine of 0.25 and a sodium levels at 133 with a potassium level of 3.4. On 02/21/2024, the patient is on room air oxygen. No complaints. No respiratory distress. Pulse ox 97%. Remains on Diflucan. Hemodynamically stable. The white cell count is down to 9.4 with a hemoglobin of 10.3 and a platelet count of 258. Rest of the medications remain unchanged. 02/22/24: PMR consulted for rehab needs: Therapy notes last week Max A bathing, Dependent toileting/bed mobility/transfers. Having LBP from compression fracture, but tolerable with medications. Her feet are numb. Had a BM this am. At rest, denies MCCARTNEY, CP, SOB, abdominal pain. Review of Systems + per above, o/w 14 point ROS negative Past Medical History Past Medical History: COPD, Diabetes Mellitus, Hyperlipidemia, Hypertension History of Any Multi-Drug Resistant Organisms: None Reported Past Surgical History: Adenoidectomy, Hysterectomy, Tubal Ligation Additional Past Surgical History / Comment(s): 2 tumors removals Smoking Status: Current every day smoker Medications and Allergies Home Medications Medication Instructions Recorded Confirmed Type Acetaminophen Tab [Tylenol] 650 mg PO Q6H PRN 01/29/24 01/29/24 History Amoxic-Pot Clav 500-125 mg 1 tab PO Q8H 01/29/24 01/29/24 History [Augmentin 500-125 mg] Budesonide/Formoterol Fumarate 2 puff INHALATION RT-BID 01/29/24 01/29/24 History [Symbicort 160-4.5 Mcg Inhaler] Escitalopram [Lexapro] 10 mg PO DAILY 01/29/24 01/29/24 History Insulin Glargine,Hum.rec.anlog 15 units SQ HS 01/29/24 01/29/24 History [Lantus Solostar Pen] Insulin Lispro [Insulin Lispro 5 units SQ TID-W/MEALS 01/29/24 01/29/24 History Kwikpen U-100] Lactobacillus Rhamnosus GG 1 cap PO BID 01/29/24 01/29/24 History [Culturelle] Melatonin 3 mg PO HS PRN 01/29/24 01/29/24 History Montelukast [Singulair] 10 mg PO HS 01/29/24 01/29/24 History Nicotine 14Mg/24Hr Patch [Habitrol] 1 patch TRANSDERM DAILY 01/29/24 01/29/24 History Pioglitazone HCl 15 mg PO DAILY 01/29/24 01/29/24 History amLODIPine [Norvasc] 5 mg PO BID 01/29/24 01/29/24 History guaiFENesin [guaiFENesin ER] 600 mg PO BID 01/29/24 01/29/24 History oxyCODONE-APAP 7.5-325MG [Percocet 1 tab PO TID PRN 01/29/24 01/29/24 History 7.5-325 mg] Budesonide [Pulmicort] 1 mg INHALATION RT-BID ml 02/05/24 Rx Formoterol Fumarate [Perforomist] 20 mcg INHALATION RT-BID ml 02/05/24 Rx Ipratropium-Albuterol Nebulize 3 ml INHALATION RT-QID each 02/05/24 Rx [Duoneb 0.5 mg-3 mg/3 ml Soln] Pantoprazole [Protonix] 40 mg PO AC-BID tab 02/05/24 Rx Voriconazole [Vfend] 200 mg PO Q12HR tab 02/05/24 Rx Allergies Allergy/AdvReac Type Severity Reaction Status Date / Time No Known Allergies Allergy Verified 01/29/24 12:57 Physical Exam Vitals: Vital Signs Temp Pulse Pulse Resp BP Pulse Ox 02/22/24 14:33 98.2 F 107 H 18 127/71 98 02/22/24 12:23 96 02/22/24 12:12 92 02/22/24 09:05 100 02/22/24 08:49 100 02/22/24 07:28 98.4 F 100 16 135/75 95 02/22/24 00:21 98.7 F 104 H 14 128/68 98 02/21/24 21:11 90 02/21/24 20:20 18 02/21/24 20:00 97.9 F 104 H 18 127/71 97 02/21/24 16:39 100 02/21/24 16:27 100 Intake and Output 02/22/24 02/22/24 02/22/24 06:59 14:59 22:59 Output Total 575 1665 Balance -575 -166 Output: Urine 575 1665 Other: Voiding Method Indwelling Catheter # Bowel Movements 1 Weight 96 kg Gen: NAD, alert, thin appearing HEENT: PEERLA, EOMI, neck supple Lungs: Non-labored respirations Heart: regular rate Abd: Soft NT/ND + arceo Neuro: A&Ox4. CN 2-12 intact Speech fluent, repeats no ifs ands or buts Follows 3 step commands MMT 4/ bilateral UE, 1-2/5 bilateral LE SILT bilateral UE/LE EXCEPT decreased in below knees DTR symmetric UE/LE Ext: + LE edema, no calf TTP, negative Homans Results CBC & Chem 7: 02/21/24 04:54 02/20/24 07:43 Labs: Abnormal Lab Results - Last 24 Hours (Table) 02/21/24 02/21/24 02/22/24 Range/Units 16:20 21:14 06:17 POC Glucose (mg/dL) 277 H 192 H 275 H (70-110) mg/dL 02/22/24 Range/Units 12:08 POC Glucose (mg/dL) 256 H (70-110) mg/dL Assessment and Plan Assessment: # Decline in function - currently unable to ambulate and she has been essentially chair/bedbound for the past month or so. # Acute hypoxic respiratory failure - currently on room air oxygen # Systemic fungemia with Sarah albicans in the blood - IV Diflucan. -Repeat blood culture from 02/14/2024 has shown no bacterial or fungal growth. # Constipation and fecaloma in the rectum, - some rectal bleeding following colonoscopy and this has subsided, the patient continues to stool. # Leukocytosis, white cell count is improved # COPD # Diabetes mellitus type 2 # Hypertension # Hyperlipidemia # Chronic urinary retention maintained on a chronic indwelling Arceo catheter, urine culture was also positive for Sarah # Weight loss, unexplained # Compression fracture of the spine # Stage II sacral decub ulcer # Frequent falls, hospitalized at [facility]. # LBP - pain controlled with hydrocodone Recommendation: - continue therapies as able - unfortunately, too low level to tolerate aggressive IPR program; at this time, more appropriate for FRANCISCO JAVIER. Will reassess as improves medically.
[2024-02-22 20:24] LABS: Glucose,Whole Blood 178 mg/dL (70-110)
[2024-02-22 23:05] LABS: Basophils % (A) 0 %; Eosinophils % (A) 1 %; HCT 27.7 % (34.0-46.0); Lymphocytes # (A) 0.9 k/uL (1.0-4.8); Lymphocytes % (A) 12 %; MCH 32.2 pg (25.0-35.0); MCHC 32.2 g/dL (31.0-37.0); MCV 99.8 fL (80.0-100.0); Macrocytosis Slight; Mean Platelet Volume 8.1; Monocytes # (A) 0.4 k/uL (0-1.0); Monocytes % (A) 5 %; Neutrophils # (A) 5.6 k/uL (1.3-7.7); Neutrophils % (A) 80 %; Platelet Count 342 k/uL (150-450); RBC 2.78 m/uL (3.80-5.40); RDW 15.1 % (11.5-15.5)
[2024-02-22 23:19] LABS: HGB 8.9 gm/dL (11.4-16.0)
[2024-02-23 06:09] LABS: Glucose,Whole Blood 481 mg/dL (70-110)
[2024-02-23 10:51] LABS: Basophils % (A) 1 %; Eosinophils # (A) 0.1 k/uL (0-0.7); Eosinophils % (A) 2 %; HCT 25.4 % (34.0-46.0); HGB 8.7 gm/dL (11.4-16.0); Lymphocytes # (A) 1.3 k/uL (1.0-4.8); Lymphocytes % (A) 21 %; MCH 34.2 pg (25.0-35.0); MCHC 34.3 g/dL (31.0-37.0); MCV 99.7 fL (80.0-100.0); Macrocytosis Slight; Monocytes # (A) 0.3 k/uL (0-1.0); Monocytes % (A) 5 %; Neutrophils # (A) 4.5 k/uL (1.3-7.7); Neutrophils % (A) 69 %; Platelet Count 361 k/uL (150-450); RBC 2.54 m/uL (3.80-5.40); RDW 15.4 % (11.5-15.5); WBC 6.5 k/uL (3.8-10.6)
[2024-02-23 10:59] LABS: ALT 14 U/L (4-34); AST 16 U/L (14-36); African American GFR (CKD) >90 (>60 ml/min/1.73 sqM); Albumin 2.4 g/dL (3.5-5.0); Albumin/Globulin Ratio 1.1; Alkaline Phosphatase 275 U/L (38-126); Anion Gap 0 mmol/L; Blood Urea Nitrogen 15 mg/dL (7-17); Calcium 8.2 mg/dL (8.4-10.2); Carbon Dioxide 25 mmol/L (22-30); Chloride 110 mmol/L (98-107); Globulin 2.1 g/dL; Glucose 158 mg/dL (74-99); Non-African American GFR(CKD) >90 (>60 ml/min/1.73 sqM); Potassium 3.6 mmol/L (3.5-5.1); Sodium 135 mmol/L (137-145); Total Bilirubin 0.2 mg/dL (0.2-1.3); Total Protein 4.5 g/dL (6.3-8.2)
[2024-02-23] MEDS: polyethylene glycoL 3350 17 GM POWD.PACK PO SCH (11:37)
[2024-02-23 11:47] LABS: Glucose,Whole Blood 126 mg/dL (70-110)
--- NOTE | 2024-02-23 16:11 | P.CONS ---
History of Present Illness - Reason for Consult Consult date: 02/23/24 Rectal bleeding Requesting physician: Cory Lloyd - Chief Complaint Shortness of breath - History of Present Illness This is a pleasant 64-year-old with a past medical history of COPD, diabetes mellitus, chronic indwelling Horn catheter and current chronic smoker, irre gular bowel movements and constipation who was admitted 25 days ago for hypoxic respiratory failure. Apparently during the hospitalization patient was having some abdominal bloating and pain as well as rectal bleeding and she was seen by general surgery. She had had a CT of the abdomen and pelvis which showed constipation with fecal bolus of stool. Dr. Washburn had completed a sigmoidoscopy with findings of fecal bolus which was manually removed which he reported as 20 to 30 ounces of stool, then scope was able to be inserted in the rectum and sigmoid and what could be visualized had revealed proctitis with superficial ulcerations and some mild oozing in the rectum distally. Patient apparently had a bowel movement yesterday evening and had reported to blood clots within the bowel movement. She states that she has had irregular bowel movements for years and she does not take anything to help alleviate it. Patient is nonambulatory due to neuropathy according to the patient. States she has a good appetite last colonoscopy about 8 or 9 years ago. Lactulose has been ordered for patient however she has been refusing it. She did have initial hemoglobin on admission of 14.7 it has been dropping over the last few days now down to 8.7. Review of Systems REVIEW OF SYSTEMS: CARDIOPULMONARY: No chest pain. Patient has chronic shortness of breath. Gastrointestinal: Abdominal pain. No nausea or vomiting. No hematemesis, coffee-ground emesis. Rectal bleeding last yesterday reported as dark red with clots. Chronic constipation GENITOURINARY: No dysuria or hematuria. MUSCULOSKELETAL: Patient states she is nonambulatory, feet do not work. SKIN: No rashes. No jaundice. ENDOCRINE: No chills, fevers. No excessive weight gain or loss. No polydipsia or polyuria. PSYCHIATRIC: Unremarkable. NEUROLOGY: No change in mental status. Denies dizziness, headache. ENT: Vision unremarkable. CONSTITUTIONAL: No recent weight loss. No fever, chills, night sweats. Past Medical History Past Medical History: COPD, Diabetes Mellitus, Hyperlipidemia, Hypertension History of Any Multi-Drug Resistant Organisms: None Reported Past Surgical History: Adenoidectomy, Hysterectomy, Tubal Ligation Additional Past Surgical History / Comment(s): 2 tumors removals Smoking Status: Current every day smoker Medications and Allergies Home Medications Medication Instructions Recorded Confirmed Type Acetaminophen Tab [Tylenol] 650 mg PO Q6H PRN 01/29/24 01/29/24 History Amoxic-Pot Clav 500-125 mg 1 tab PO Q8H 01/29/24 01/29/24 History [Augmentin 500-125 mg] Budesonide/Formoterol Fumarate 2 puff INHALATION RT-BID 01/29/24 01/29/24 History [Symbicort 160-4.5 Mcg Inhaler] Escitalopram [Lexapro] 10 mg PO DAILY 01/29/24 01/29/24 History Insulin Glargine,Hum.rec.anlog 15 units SQ HS 01/29/24 01/29/24 History [Lantus Solostar Pen] Insulin Lispro [Insulin Lispro 5 units SQ TID-W/MEALS 01/29/24 01/29/24 History Kwikpen U-100] Lactobacillus Rhamnosus GG 1 cap PO BID 01/29/24 01/29/24 History [Culturelle] Melatonin 3 mg PO HS PRN 01/29/24 01/29/24 History Montelukast [Singulair] 10 mg PO HS 01/29/24 01/29/24 History Nicotine 14Mg/24Hr Patch [Habitrol] 1 patch TRANSDERM DAILY 01/29/24 01/29/24 History Pioglitazone HCl 15 mg PO DAILY 01/29/24 01/29/24 History amLODIPine [Norvasc] 5 mg PO BID 01/29/24 01/29/24 History guaiFENesin [guaiFENesin ER] 600 mg PO BID 01/29/24 01/29/24 History oxyCODONE-APAP 7.5-325MG [Percocet 1 tab PO TID PRN 01/29/24 01/29/24 History 7.5-325 mg] Budesonide [Pulmicort] 1 mg INHALATION RT-BID ml 02/05/24 Rx Formoterol Fumarate [Perforomist] 20 mcg INHALATION RT-BID ml 02/05/24 Rx Ipratropium-Albuterol Nebulize 3 ml INHALATION RT-QID each 02/05/24 Rx [Duoneb 0.5 mg-3 mg/3 ml Soln] Pantoprazole [Protonix] 40 mg PO AC-BID tab 02/05/24 Rx Voriconazole [Vfend] 200 mg PO Q12HR tab 02/05/24 Rx Allergies Allergy/AdvReac Type Severity Reaction Status Date / Time No Known Allergies Allergy Verified 01/29/24 12:57 Physical Exam Vitals: Vital Signs Temp Pulse Pulse Pulse Pulse Resp BP 02/23/24 04:00 98.3 F 103 H 20 114/69 02/23/24 02:33 106 H 20 02/23/24 00:00 98.2 F 106 H 20 124/72 02/22/24 22:30 98.2 F 110 H 123/74 02/22/24 21:25 101 H 18 02/22/24 21:18 104 H 18 02/22/24 18:58 99.3 F 115 H 16 02/22/24 16:49 100 02/22/24 16:39 100 02/22/24 14:33 98.2 F 107 H 18 02/22/24 12:23 96 02/22/24 12:12 92 BP Pulse Ox 02/23/24 04:00 100 02/23/24 02:33 02/23/24 00:00 100 02/22/24 22:30 98 02/22/24 21:25 02/22/24 21:18 02/22/24 18:58 114/71 100 02/22/24 16:49 02/22/24 16:39 02/22/24 14:33 127/71 98 02/22/24 12:23 02/22/24 12:12 Intake and Output 02/22/24 02/23/24 02/23/24 22:59 06:59 14:59 Intake Total 480 356 Output Total 525 1600 1400 Balance -525 -1120 -1044 Intake: Oral 480 356 Output: Urine 525 1600 1400 Other: Voiding Method Indwelling Catheter Indwelling Catheter # Bowel Movements 1 1 General appearance: The patient is alert, oriented, appears in no acute distress. HET: Head is normocephalic and atraumatic. Conjunctiva pink. Sclera anicteric. Neck: Supple without lymphadenopathy. Trachea midline. Heart: Regular. Lungs: Equal expansion, normal respiratory effort. Abdomen: Soft, nontender, nondistended. Skin: No rashes. No jaundice. Extremities: Normal skin color and turgor. Lower extremity edema. Neurological: No focal deficits. Alert and oriented x3. Results CBC & Chem 7: 02/23/24 09:45 02/23/24 09:45 Labs: Abnormal Lab Results - Last 24 Hours (Table) 02/22/24 02/22/24 02/22/24 Range/Units 12:08 16:50 20:22 RBC (3.80-5.40) m/uL Hgb (11.4-16.0) gm/dL Hct (34.0-46.0) % Lymphocytes # (1.0-4.8) k/uL POC Glucose (mg/dL) 256 H 212 H 178 H (70-110) mg/dL 02/22/24 02/23/24 Range/Units 22:51 06:07 RBC 2.78 L (3.80-5.40) m/uL Hgb 8.9 L D (11.4-16.0) gm/dL Hct 27.7 L (34.0-46.0) % Lymphocytes # 0.9 L (1.0-4.8) k/uL POC Glucose (mg/dL) 481 H (70-110) mg/dL Assessment and Plan (1) Proctitis Narrative/Plan: 64-year-old female with history of chronic constipation who is now bedridden and nonambulatory who was admitted for acute hypoxic respiratory failure. During her hospitalization she had abdominal pain and bloating which led to a CAT scan of the abdomen that showed fecal bolus in the rectum. She was seen initially by general surgery and underwent sigmoidoscopy and fecal disimpaction on 02/14/2024 with reported proctitis and oozing. All likely secondary to chronic co nstipation and fecal bolus. Recommend regular bowel regimen and will start patient on MiraLAX. Will also start hydrocortisone rectal suppositories daily. No need at this time to repeat any endoscopic evaluation. Current Visit: Yes Status: Acute Code(s): K62.89 - OTHER SPECIFIED DISEASES OF ANUS AND RECTUM SNOMED Code(s): 2463223 (2) Rectal bleeding Current Visit: Yes Status: Acute Code(s): K62.5 - HEMORRHAGE OF ANUS AND RECTUM SNOMED Code(s): 18242349 (3) Chronic constipation Current Visit: Yes Status: Acute Code(s): K59.09 - OTHER CONSTIPATION SNOM ED Code(s): 707806111 (4) Fecal impaction in rectum Current Visit: Yes Status: Acute Code(s): K56.41 - FECAL IMPACTION SNOMED Code(s): 5003068019 Plan: 1. Continue symptomatic and supportive care 2. Hydrocortisone rectal suppositories ordered 3. MiraLAX daily may titrate to twice a day as needed. Discussed with patient importance of regular bowel regimen to avoid chronic constipation and fecal impaction 4. Recommend discontinuing lactulose 5. Daily CBC, transfuse for hemoglobin less than 7 6. No plans on endoscopic evaluation at this time, patient had recent sigmoidoscopy 7. Rest of medical management per primary medical team Thank you for this consultation, we will continue to follow. Dr. Neo Singh I agree with the dictator's note, documented as a scribe by Lisha Schmidt.
[2024-02-23 16:35] LABS: HCT 28.6 % (34.0-46.0); HGB 8.9 gm/dL (11.4-16.0); MCH 31.7 pg (25.0-35.0); MCHC 31.3 g/dL (31.0-37.0); MCV 101.1 fL (80.0-100.0); Macrocytosis Slight; Mean Platelet Volume 7.7; Platelet Count 422 k/uL (150-450); RBC 2.83 m/uL (3.80-5.40); WBC 6.4 k/uL (3.8-10.6)
[2024-02-23 16:37] LABS: Glucose,Whole Blood 404 mg/dL (70-110)
[2024-02-23] MEDS: HYDROCORTISONE SUPPOSITORY 25 MG SUPP RECTAL STA (17:03)
[2024-02-23 20:13] LABS: Glucose,Whole Blood 253 mg/dL (70-110)
[2024-02-23 21:48] LABS: HCT 26.9 % (34.0-46.0); HGB 8.7 gm/dL (11.4-16.0); MCH 32.4 pg (25.0-35.0); MCHC 32.3 g/dL (31.0-37.0); MCV 100.3 fL (80.0-100.0); Macrocytosis Slight; Mean Platelet Volume 8.1; Platelet Count 421 k/uL (150-450); RBC 2.68 m/uL (3.80-5.40); RDW 15.1 % (11.5-15.5); WBC 6.5 k/uL (3.8-10.6)
[2024-02-23 23:26] LABS: Glucose,Whole Blood 109 mg/dL (70-110)
[2024-02-24 00:14] LABS: Glucose,Whole Blood 55 mg/dL (70-110)
[2024-02-24] MEDS: DEXTROSE 50% SYRINGE 50 ML IVP PRN (00:15)
[2024-02-24 00:36] LABS: Glucose,Whole Blood 168 mg/dL (70-110)
[2024-02-24 06:08] LABS: Glucose,Whole Blood 243 mg/dL (70-110)
--- NOTE | 2024-02-24 06:10 | PN ---
PROGRESS NOTE SUBJECTIVE: This is a 64-year-old white . Continues on her breathing treatments, oxygen. She is getting her strength back again. Possibly go to her son's house in a day or 2. Try to set up home multiple things to help including a walker and a hospital bed. Home oxygen will have to be set up. Temperature 97.9, pulse 109, respiratory rate 20, blood pressure 113/80s, sats 67, saturation is 96 on 2 L. PLAN: Continue current treatment. Send her back for discharge home in next day or 2 as she is greatly improved. Leukocytosis improved. Normal white count at this point. Hemoglobin is low at 8.7. Give her some benefit here at this time. Prognosis guarded. MMODL / IJN: [id number] /
[2024-02-24 08:15] LABS: Basophils # (A) 0.1 k/uL (0-0.2); Basophils % (A) 1 %; Eosinophils # (A) 0.1 k/uL (0-0.7); Eosinophils % (A) 2 %; HCT 28.4 % (34.0-46.0); HGB 9.1 gm/dL (11.4-16.0); Lymphocytes # (A) 1.4 k/uL (1.0-4.8); Lymphocytes % (A) 20 %; MCH 32.3 pg (25.0-35.0); MCV 101.1 fL (80.0-100.0); Macrocytosis Slight; Mean Platelet Volume 7.5; Monocytes # (A) 0.4 k/uL (0-1.0); Monocytes % (A) 5 %; Neutrophils # (A) 4.8 k/uL (1.3-7.7); Neutrophils % (A) 70 %; Platelet Count 469 k/uL (150-450); RBC 2.81 m/uL (3.80-5.40); RDW 15.2 % (11.5-15.5); WBC 6.9 k/uL (3.8-10.6)
[2024-02-24 08:30] LABS: ALT 15 U/L (4-34); AST 17 U/L (14-36); African American GFR (CKD) >90 (>60 ml/min/1.73 sqM); Albumin 2.4 g/dL (3.5-5.0); Alkaline Phosphatase 252 U/L (38-126); Anion Gap 1 mmol/L; Blood Urea Nitrogen 16 mg/dL (7-17); Calcium 8.1 mg/dL (8.4-10.2); Carbon Dioxide 26 mmol/L (22-30); Chloride 107 mmol/L (98-107); Glucose 209 mg/dL (74-99); Non-African American GFR(CKD) >90 (>60 ml/min/1.73 sqM); Potassium 4.1 mmol/L (3.5-5.1); Sodium 134 mmol/L (137-145); Total Bilirubin 0.2 mg/dL (0.2-1.3); Total Protein 4.5 g/dL (6.3-8.2)
[2024-02-24] MEDS: HYDROCORTISONE SUPPOSITORY 25 MG SUPP RECTAL SCH (09:36)
[2024-02-24 11:24] LABS: Glucose,Whole Blood 438 mg/dL (70-110)
--- NOTE | 2024-02-24 13:23 | P.PN ---
Subjective Progress Note Date: 02/23/24 Principal diagnosis: Reason for follow-up is UTI question of pneumonia and a sacral pressure ulcer Patient is a 63-year-old female with a past medical history significan t for diabetes mellitus hypertension hyperlipidemia COPD current everyday smoker, recent multiple admission to the [facility] for UTI followed with the compression fracture of the spine and hypoglycemia has been brought in to [facility] for evaluation of increasing shortness of breath did have abnormal CT angiogram of the chest concerning for effusion atelectasis positive UA concerning for UTI and the patient also have a sacral pressure ulcer. On today's evaluation that is 02/23/2024,the patient denies any fever or any chills, patient is breathing comfortably on 2 L nasal oxygen the patient denies chest pain shortness of breath and no significant cough, patient denies abdominal pain, no nausea vomiting, did have bowel movement Patient white count 6.5 creatinine 0.3 Objective - Vital Signs Vital signs: Vital Signs Temp 97.9 F 02/23/24 09:19 Pulse 104 H 02/23/24 13:40 Resp 18 02/23/24 13:40 BP 111/66 02/23/24 11:36 Pulse Ox 100 02/23/24 11:36 FiO2 Intake & Output 02/22/24 02/23/24 02/23/24 18:59 06:59 18:59 Intake Total 480 606 Output Total 2190 1600 1400 Balance -2190 -1120 -794 Intake: Oral 480 606 Output: Urine 2190 1600 1400 Other: Voiding Method Indwelling Catheter Indwelling Catheter Indwelling Catheter # Bowel Movements 1 1 - Exam GENERAL DESCRIPTION: Middle-aged female lying in bed in no distress RESPIRATORY SYSTEM: Unlabored breathing , decreased breath sounds at bases HEART: S1 S2 regular rate and rhythm , ABDOMEN: Soft , no tenderness EXTREMITIES: No edema feet - Labs CBC & Chem 7: 02/24/24 07:46 02/24/24 07:46 Labs: Abnormal Lab Results - Last 24 Hours (Table) 02/22/24 02/22/24 02/22/24 Range/Units 16:50 20:22 22:51 RBC 2.78 L (3.80-5.40) m/uL Hgb 8.9 L D (11.4-16.0) gm/dL Hct 27.7 L (34.0-46.0) % Lymphocytes # 0.9 L (1.0-4.8) k/uL Sodium (137-145) mmol/L Chloride (98-107) mmol/L Creatinine (0.52-1.04) mg/dL Glucose (74-99) mg/dL POC Glucose (mg/dL) 212 H 178 H (70-110) mg/dL Calcium (8.4-10.2) mg/dL Alkaline Phosphatase (38-126) U/L Total Protein (6.3-8.2) g/dL Albumin (3.5-5.0) g/dL 02/23/24 02/23/24 02/23/24 Range/Units 06:07 09:45 09:45 RBC 2.54 L (3.80-5.40) m/uL Hgb 8.7 L (11.4-16.0) gm/dL Hct 25.4 L (34.0-46.0) % Lymphocytes # (1.0-4.8) k/uL Sodium 135 L (137-145) mmol/L Chloride 110 H (98-107) mmol/L Creatinine 0.31 L (0.52-1.04) mg/dL Glucose 158 H (74-99) mg/dL POC Glucose (mg/dL) 481 H (70-110) mg/dL Calcium 8.2 L (8.4-10.2) mg/dL Alkaline Phosphatase 275 H (38-126) U/L Total Protein 4.5 L (6.3-8.2) g/dL Albumin 2.4 L (3.5-5.0) g/dL 02/23/24 Range/Units 11:45 RBC (3.80-5.40) m/uL Hgb (11.4-16.0) gm/dL Hct (34.0-46.0) % Lymphocytes # (1.0-4.8) k/uL Sodium (137-145) mmol/L Chloride (98-107) mmol/L Creatinine (0.52-1.04) mg/dL Glucose (74-99) mg/dL POC Glucose (mg/dL) 126 H (70-110) mg/dL Calcium (8.4-10.2) mg/dL Alkaline Phosphatase (38-126) U/L Total Protein (6.3-8.2) g/dL Albumin (3.5-5.0) g/dL Assessment and Plan (1) Stage III pressure ulcer of sacral region Current Visit: Yes Status: Acute Code(s): L89.153 - PRESSURE ULCER OF SACRAL REGION, STAGE 3 SNOMED Code(s): 94739338511139 (2) Urinary tract infection Current Visit: Yes Status: Acute Code(s): N39.0 - URINARY TRACT INFECTION, SITE NOT SPECIFIED SNOMED Code(s): 90641730 (3) Aspiration pneumonia Current Visit: Yes Status: Acute Code(s): J69.0 - PNEUMONITIS DUE TO INHALATION OF FOOD AND VOMIT SNOMED Code(s): 978780843 (4) Candidemia Current Visit: Yes Status: Acute Code(s): B37.7 - CANDIDAL SEPSIS SNOMED Code(s): 300101648 Plan: 1patient with worsening of the white count no bowel movement for the last 4 to 5 days, patient did have CT abdominal pelvis CT shows large stool burden throughout the colon with 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 General surgery is planning for manually formation in the endoscopy suite tomorrow patient is covered with Zosyn 2-patient clinical course complicated by development of candidemia positive blood culture with Sarah albicans possible GI source, patient is s/p manual evaluation of her fecaloma completed on 02/14/2024 did have some rectal bleeding for the patient has been transferred to the ICU subsequently stabilized and transferred out of the ICU 3patient is afebrile white count has normalized and repeat blood culture has been negative 4-patient currently being with the Zosyn and Diflucan patient apparently did have some rectal bleeding for which GI has been consulted Dictation was produced using [employer] dictation software. please excuse any grammatical, word or spelling errors. Time with Patient: Less than 30
--- NOTE | 2024-02-24 13:24 | P.PN ---
Subjective Progress Note Date: 02/24/24 Principal diagnosis: Reason for follow-up is UTI question of pneumonia and a sacral pressure ulcer Patient is a 63-year-old female with a past medical history significan t for diabetes mellitus hypertension hyperlipidemia COPD current everyday smoker, recent multiple admission to the [facility] for UTI followed with the compression fracture of the spine and hypoglycemia has been brought in to [facility] for evaluation of increasing shortness of breath did have abnormal CT angiogram of the chest concerning for effusion atelectasis positive UA concerning for UTI and the patient also have a sacral pressure ulcer. On today's evaluation that is 02/24/2024,the patient remains to be afebrile, patient is on 2 L nasal cannula supplemental oxygen and denies any shortness of breath no chest pain or cough.Patient denies having any nausea or vomiting, no abdominal pain and did have a bowel movement per the nursing staff. Patient white count 6.8, creatinine 0.30 Objective - Vital Signs Vital signs: Vital Signs Temp 97.9 F 02/24/24 09:03 Pulse 110 H 02/24/24 11:56 Resp 17 02/24/24 11:41 BP 117/68 02/24/24 11:41 Pulse Ox 99 02/24/24 13:07 FiO2 Intake & Output 02/23/24 02/24/24 02/24/24 18:59 06:59 18:59 Intake Total 724 474 Output Total 2100 800 1000 Balance -1376 -800 -526 Weight 45 kg Intake: Oral 724 474 Output: Urine 2100 800 1000 Other: Voiding Method Indwelling Catheter Indwelling Catheter Indwelling Catheter # Bowel Movements 2 1 1 - Exam GENERAL DESCRIPTION: Middle-aged female lying in bed in no distress RESPIRATORY SYSTEM: Unlabored breathing , decreased breath sounds at bases HEART: S1 S2 regular rate and rhythm , ABDOMEN: Soft , no tenderness EXTREMITIES: No edema feet - Labs CBC & Chem 7: 02/24/24 07:46 02/24/24 07:46 Labs: Abnormal Lab Results - Last 24 Hours (Table) 02/23/24 02/23/24 02/23/24 Range/Units 16:02 16:35 20:06 RBC 2.83 L (3.80-5.40) m/uL Hgb 8.9 L (11.4-16.0) gm/dL Hct 28.6 L (34.0-46.0) % MCV 101.1 H (80.0-100.0) fL Plt Count (150-450) k/uL Sodium (137-145) mmol/L Creatinine (0.52-1.04) mg/dL Glucose (74-99) mg/dL POC Glucose (mg/dL) 404 H 253 H (70-110) mg/dL Calcium (8.4-10.2) mg/dL Alkaline Phosphatase (38-126) U/L Total Protein (6.3-8.2) g/dL Albumin (3.5-5.0) g/dL 02/23/24 02/24/24 02/24/24 Range/Units 21:38 00:12 00:33 RBC 2.68 L (3.80-5.40) m/uL Hgb 8.7 L (11.4-16.0) gm/dL Hct 26.9 L (34.0-46.0) % MCV 100.3 H (80.0-100.0) fL Plt Count (150-450) k/uL Sodium (137-145) mmol/L Creatinine (0.52-1.04) mg/dL Glucose (74-99) mg/dL POC Glucose (mg/dL) 55 L 168 H (70-110) mg/dL Calcium (8.4-10.2) mg/dL Alkaline Phosphatase (38-126) U/L Total Protein (6.3-8.2) g/dL Albumin (3.5-5.0) g/dL 02/24/24 02/24/24 02/24/24 Range/Units 06:01 07:46 07:46 RBC 2.81 L (3.80-5.40) m/uL Hgb 9.1 L (11.4-16.0) gm/dL Hct 28.4 L (34.0-46.0) % MCV 101.1 H (80.0-100.0) fL Plt Count 469 H (150-450) k/uL Sodium 134 L (137-145) mmol/L Creatinine 0.30 L (0.52-1.04) mg/dL Glucose 209 H (74-99) mg/dL POC Glucose (mg/dL) 243 H (70-110) mg/dL Calcium 8.1 L (8.4-10.2) mg/dL Alkaline Phosphatase 252 H (38-126) U/L Total Protein 4.5 L (6.3-8.2) g/dL Albumin 2.4 L (3.5-5.0) g/dL 02/24/24 Range/Units 11:23 RBC (3.80-5.40) m/uL Hgb (11.4-16.0) gm/dL Hct (34.0-46.0) % MCV (80.0-100.0) fL Plt Count (150-450) k/uL Sodium (137-145) mmol/L Creatinine (0.52-1.04) mg/dL Glucose (74-99) mg/dL POC Glucose (mg/dL) 438 H (70-110) mg/dL Calcium (8.4-10.2) mg/dL Alkaline Phosphatase (38-126) U/L Total Protein (6.3-8.2) g/dL Albumin (3.5-5.0) g/dL Assessment and Plan (1) Stage III pressure ulcer of sacral region Current Visit: Yes Status: Acute Code(s): L89.153 - PRESSURE ULCER OF SACRAL REGION, STAGE 3 SNOMED Code(s): 14500395781879 (2) Urinary tract infection Current Visit: Yes Status: Acute Code(s): N39.0 - URINARY TRACT INFECTION, SITE NOT SPECIFIED SNOMED Code(s): 18771355 (3) Aspiration pneumonia Current Visit: Yes Status: Acute Code(s): J69.0 - PNEUMONITIS DUE TO INHALATION OF FOOD AND VOMIT SNOMED Code(s): 974904414 (4) Candidemia Current Visit: Yes Status: Acute Code(s): B37.7 - CANDIDAL SEPSIS SNOMED Code(s): 099831428 Plan: 1patient with worsening of the white count no bowel movement for the last 4 to 5 days, patient did have CT abdominal pelvis CT shows large stool burden throughout the colon with 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 General surgery is planning for manually formation in the endoscopy suite tomorrow patient is co román with Zosyn 2-patient clinical course complicated by development of candidemia positive blood culture with Sarah albicans possible GI source, patient is s/p manual evaluation of her fecaloma completed on 02/14/2024 did have some rectal bleeding for the patient has been transferred to the ICU subsequently stabilized and transferred out of the ICU 3patient is afebrile white count has normalized and repeat blood culture has been negative 4-patient to continue with the Zosyn and Diflucan while inpatient but no plan for any IV antifungal or antibiotics on discharge Dictation was produced using [employer] dictation software. please excuse any grammatical, word or spelling errors. Time with Patient: Less than 30
[2024-02-24] MEDS: SODIUM FERRIC GLUCONAT-SUCROSE 125 MG in SODIUM CHLORIDE 0.9% 100 ML IVPB SCH (14:17)
[2024-02-24 15:43] VITALS: BMI 15.0
[2024-02-24 16:24] LABS: Glucose,Whole Blood 169 mg/dL (70-110)
--- NOTE | 2024-02-24 16:46 | P.PN ---
Subjective Progress Note Date: 02/24/24 Principal diagnosis: Rectal bleeding This is a pleasant 64-year-old with a past medical history of COPD, diabetes mellitus, chronic indwelling Horn catheter and current chronic smoker, irregular bowel movements and constipation who was admitted 25 days ago for hypoxic respiratory failure. Apparently during the hospitalization patient was having some abdominal bloating and pain as well as rectal bleeding and she was seen by general surgery. She had had a CT of the abdomen and pelvis which showed constipation with fecal bolus of stool. Dr. Washburn had completed a sigmoidoscopy with findings of fecal bolus which was manually removed which he reported as 20 to 30 ounces of stool, then scope was able to be inserted in the rectum and sigmoid and what could be visualized had revealed proctitis with superficial ulcerations and some mild oozing in the rectum distally. Patient apparently had a bowel movement yesterday evening and had reported to blood clots within the bowel movement. She states that she has had irregular bowel movements for years and she does not take anything to help alleviate it. Patient is nonambulatory due to neuropathy according to the patient. States she has a good appetite last colonoscopy about 8 or 9 years ago. Lactulose has been ordered for patient however she has been refusing it. She did have initial hemoglobin on admission of 14.7 it has been dropping over the last few days now down to 8.7. 02/24/2024 Patient seen and examined today as a follow-up. She had bowel movement through the night and this morning with just some blood-tinged according to nursing staff. Patient denies any abdominal pain, nausea or vomiting. Hemoglobin is 9.1 today up from 8.7 yesterday. Patient is taking her MiraLAX and steroid rectal suppositories. Objective - Vital Signs Vital signs: Vital Signs Temp 98 F 02/24/24 04:00 Pulse 105 H 02/24/24 08:43 Resp 17 02/24/24 04:00 BP 108/86 02/24/24 04:00 Pulse Ox 100 02/24/24 08:29 FiO2 Intake & Output 02/23/24 02/24/24 02/24/24 18:59 06:59 18:59 Intake Total 724 118 Output Total 2100 800 Balance -1376 -800 118 Intake: Oral 724 118 Output: Urine 2100 800 Other: Voiding Method Indwelling Catheter Indwelling Catheter # Bowel Movements 2 1 - Exam General appearance: The patient is alert, oriented, appears in no acute distress. HET: Head is normocephalic and atraumatic. Conjunctiva pink. Sclera anicteric. Neck: Supple without lymphadenopathy. Abdomen: Soft, nontender, nondistended with bowel sounds. No guarding or rigidity. Extremities: Normal skin color and turgor. No pedal edema Skin: No rashes, no jaundice Neurological: No focal deficits. Alert and oriented. - Labs CBC & Chem 7: 02/24/24 07:46 02/24/24 07:46 Labs: Abnormal Lab Results - Last 24 Hours (Table) 02/23/24 02/23/24 02/23/24 Range/Units 09:45 09:45 11:45 RBC 2.54 L (3.80-5.40) m/uL Hgb 8.7 L (11.4-16.0) gm/dL Hct 25.4 L (34.0-46.0) % MCV (80.0-100.0) fL Plt Count (150-450) k/uL Sodium 135 L (137-145) mmol/L Chloride 110 H (98-107) mmol/L Creatinine 0.31 L (0.52-1.04) mg/dL Glucose 158 H (74-99) mg/dL POC Glucose (mg/dL) 126 H (70-110) mg/dL Calcium 8.2 L (8.4-10.2) mg/dL Alkaline Phosphatase 275 H (38-126) U/L Total Protein 4.5 L (6.3-8.2) g/dL Albumin 2.4 L (3.5-5.0) g/dL 02/23/24 02/23/24 02/23/24 Range/Units 16:02 16:35 20:06 RBC 2.83 L (3.80-5.40) m/uL Hgb 8.9 L (11.4-16.0) gm/dL Hct 28.6 L (34.0-46.0) % MCV 101.1 H (80.0-100.0) fL Plt Count (150-450) k/uL Sodium (137-145) mmol/L Chloride (98-107) mmol/L Creatinine (0.52-1.04) mg/dL Glucose (74-99) mg/dL POC Glucose (mg/dL) 404 H 253 H (70-110) mg/dL Calcium (8.4-10.2) mg/dL Alkaline Phosphatase (38-126) U/L Total Protein (6.3-8.2) g/dL Albumin (3.5-5.0) g/dL 02/23/24 02/24/24 02/24/24 Range/Units 21:38 00:12 00:33 RBC 2.68 L (3.80-5.40) m/uL Hgb 8.7 L (11.4-16.0) gm/dL Hct 26.9 L (34.0-46.0) % MCV 100.3 H (80.0-100.0) fL Plt Count (150-450) k/uL Sodium (137-145) mmol/L Chloride (98-107) mmol/L Creatinine (0.52-1.04) mg/dL Glucose (74-99) mg/dL POC Glucose (mg/dL) 55 L 168 H (70-110) mg/dL Calcium (8.4-10.2) mg/dL Alkaline Phosphatase (38-126) U/L Total Protein (6.3-8.2) g/dL Albumin (3.5-5.0) g/dL 02/24/24 02/24/24 02/24/24 Range/Units 06:01 07:46 07:46 RBC 2.81 L (3.80-5.40) m/uL Hgb 9.1 L (11.4-16.0) gm/dL Hct 28.4 L (34.0-46.0) % MCV 101.1 H (80.0-100.0) fL Plt Count 469 H (150-450) k/uL Sodium 134 L (137-145) mmol/L Chloride (98-107) mmol/L Creatinine 0.30 L (0.52-1.04) mg/dL Glucose 209 H (74-99) mg/dL POC Glucose (mg/dL) 243 H (70-110) mg/dL Calcium 8.1 L (8.4-10.2) mg/dL Alkaline Phosphatase 252 H (38-126) U/L Total Protein 4.5 L (6.3-8.2) g/dL Albumin 2.4 L (3.5-5.0) g/dL Assessment and Plan (1) Proctitis Narrative/Plan: 64-year-old female with history of chronic constipation who is now bedridden and nonambulatory who was admitted for acute hypoxic respiratory failure. During her hospitalization she had abdominal pain and bloating which led to a CAT scan of the abdomen that showed fecal bolus in the rectum. She was seen initially by general surgery and underwent sigmoidoscopy and fecal disimpaction on 02/14/2024 with reported proctitis and oozing. All likely secondary to chronic constipation and fecal bolus. Recommend regular bowel regimen and will start patient on MiraLAX. Will also start hydrocortisone rectal suppositories daily. No need at this time to repeat any endoscopic evaluation. Current Visit: Yes Status: Acute Code(s): K62.89 - OTHER SPECIFIED DISEASES OF ANUS AND RECTUM SNOMED Code(s): 5789266 (2) Rectal bleeding Current Visit: Yes Status: Acute Code(s): K62.5 - HEMORRHAGE OF ANUS AND RECTUM SNOMED Code(s): 01580398 (3) Chronic constipation Narrative/Plan: Continue with MiraLAX Current Visit: Yes Status: Acute Code(s): K59.09 - OTHER CONSTIPATION SNOMED Code(s): 796517648 (4) Fecal impaction in rectum Current Visit: Yes Status: Acute Code(s): K56.41 - FECAL IMPACTION SNOMED Code(s): 1996139385 Plan: 1. Continue symptomatic and supportive care 2. Hydrocortisone rectal suppositories ordered 3. MiraLAX daily may titrate to twice a day as needed. Discussed with patient importance of regular bowel regimen to avoid chronic constipation and fecal impaction 4. Recommend discontinuing lactulose 5. Daily CBC, transfuse for hemoglobin less than 7 6. No plans on endoscopic evaluation at this time, patient had recent sigmoidoscopy 7. Rest of medical management per primary medical team Thank you for this consultation, we will continue to follow. Dr. Neo Singh I agree with the dictator's note, documented as a scribe by Lisha Schmidt.
[2024-02-24 20:07] LABS: Glucose,Whole Blood 182 mg/dL (70-110)
[2024-02-25 06:05] LABS: Glucose,Whole Blood 272 mg/dL (70-110)
[2024-02-25 11:43] LABS: Glucose,Whole Blood 320 mg/dL (70-110)
--- NOTE | 2024-02-25 12:58 | P.PN ---
Subjective Progress Note Date: 02/25/24 Principal diagnosis: Rectal bleeding This is a pleasant 64-year-old with a past medical history of COPD, diabetes mellitus, chronic indwelling Horn catheter and current chronic smoker, irregular bowel movements and constipation who was admitted 25 days ago for hypoxic respiratory failure. Apparently during the hospitalization patient was having some abdominal bloating and pain as well as rectal bleeding and she was seen by general surgery. She had had a CT of the abdomen and pelvis which showed constipation with fecal bolus of stool. Dr. Washburn had completed a sigmoidoscopy with findings of fecal bolus which was manually removed which he reported as 20 to 30 ounces of stool, then scope was able to be inserted in the rectum and sigmoid and what could be visualized had revealed proctitis with superficial ulcerations and some mild oozing in the rectum distally. Patient apparently had a bowel movement yesterday evening and had reported to blood clots within the bowel movement. She states that she has had irregular bowel movements for years and she does not take anything to help alleviate it. Patient is nonambulatory due to neuropathy according to the patient. States she has a good appetite last colonoscopy about 8 or 9 years ago. Lactulose has been ordered for patient however she has been refusing it. She did have initial hemoglobin on admission of 14.7 it has been dropping over the last few days now down to 8.7. 02/24/2024 Patient seen and examined today as a follow-up. She had bowel movement through the night and this morning with just some blood-tinged according to nursing staff. Patient denies any abdominal pain, nausea or vomiting. Hemoglobin is 9.1 today up from 8.7 yesterday. Patient is taking her MiraLAX and steroid rectal suppositories. 02/25/2024 Patient seen and examined today as a follow-up. No further large clots. No bowel movement yet today. She denies any abdominal pain, nausea or vomiting. She is eating well. No repeat labs today. Objective - Vital Signs Vital signs: Vital Signs Temp 98.1 F 02/25/24 00:00 Pulse 109 H 02/25/24 04:00 Resp 17 02/25/24 04:00 BP 110/68 02/25/24 04:00 Pulse Ox 99 02/25/24 04:00 FiO2 Intake & Output 02/24/24 02/25/24 02/25/24 18:59 06:59 18:59 Intake Total 592 Output Total 2300 1100 Balance -1708 -1100 Weight 45 kg Intake: Oral 592 Output: Urine 2300 1100 Other: Voiding Method Indwelling Catheter Indwelling Catheter # Bowel Movements 1 - Exam General appearance: The patient is alert, oriented, appears in no acute distress. HET: Head is normocephalic and atraumatic. Conjunctiva pink. Sclera anicteric. Neck: Supple without lymphadenopathy. Abdomen: Soft, nontender, nondistended with bowel sounds. No guarding or rigidity. Extremities: Normal skin color and turgor. No pedal edema Skin: No rashes, no jaundice Neurological: No focal deficits. Alert and oriented. - Labs CBC & Chem 7: 02/24/24 07:46 02/24/24 07:46 Labs: Abnormal Lab Results - Last 24 Hours (Table) 02/24/24 02/24/24 02/24/24 Range/Units 07:46 07:46 11:23 RBC 2.81 L (3.80-5.40) m/uL Hgb 9.1 L (11.4-16.0) gm/dL Hct 28.4 L (34.0-46.0) % MCV 101.1 H (80.0-100.0) fL Plt Count 469 H (150-450) k/uL Sodium 134 L (137-145) mmol/L Creatinine 0.30 L (0.52-1.04) mg/dL Glucose 209 H (74-99) mg/dL POC Glucose (mg/dL) 438 H (70-110) mg/dL Calcium 8.1 L (8.4-10.2) mg/dL Alkaline Phosphatase 252 H (38-126) U/L Total Protein 4.5 L (6.3-8.2) g/dL Albumin 2.4 L (3.5-5.0) g/dL 02/24/24 02/24/24 02/25/24 Range/Units 16:22 20:05 06:04 RBC (3.80-5.40) m/uL Hgb (11.4-16.0) gm/dL Hct (34.0-46.0) % MCV (80.0-100.0) fL Plt Count (150-450) k/uL Sodium (137-145) mmol/L Creatinine (0.52-1.04) mg/dL Glucose (74-99) mg/dL POC Glucose (mg/dL) 169 H 182 H 272 H (70-110) mg/dL Calcium (8.4-10.2) mg/dL Alkaline Phosphatase (38-126) U/L Total Protein (6.3-8.2) g/dL Albumin (3.5-5.0) g/dL Assessment and Plan (1) Proctitis Narrative/Plan: 64-year-old female with history of chronic constipation who is now bedridden and nonambulatory who was admitted for acute hypoxic respiratory failure. During her hospitalization she had abdominal pain and bloating which led to a CAT scan of the abdomen that showed fecal bolus in the rectum. She was seen initially by general surgery and underwent sigmoidoscopy and fecal disimpaction on 02/14/2024 with reported proctitis and oozing. All likely secondary to chronic constipation and fecal bolus. Recommend regular bowel regimen and will start patient on MiraLAX. Will also start hydrocortisone rectal suppositories daily. No need at this time to repeat any endoscopic evaluation. Current Visit: Yes Status: Acute Code(s): K62.89 - OTHER SPECIFIED DISEASES OF ANUS AND RECTUM SNOMED Code(s): 9799852 (2) Rectal bleeding Current Visit: Yes Status: Acute Code(s): K62.5 - HEMORRHAGE OF ANUS AND RECTUM SNOMED Code(s): 62104038 (3) Chronic constipation Narrative/Plan: Continue with MiraLAX Current Visit: Yes Status: Acute Code(s): K59.09 - OTHER CONSTIPATION SNOMED Code(s): 407671769 (4) Fecal impaction in rectum Current Visit: Yes Status: Acute Code(s): K56.41 - FECAL IMPACTION SNOMED Code(s): 3594974523 Plan: 1. Continue symptomatic and supportive care 2. Continue hydrocortisone rectal suppositories 3. MiraLAX daily may titrate to twice a day as needed. Discussed with patient importance of regular bowel regimen to avoid chronic constipation and fecal impaction 4. No plans on endoscopic evaluation at this time, patient had recent sigmoidoscopy 5. Rest of medical management per primary medical team 6. Patient is cleared from gastroenterology for discharge. Thank you for this consultation, we will sign off at this time. Dr. Neo Singh I agree with the dictator's note, documented as a scribe by Lisha Schmidt.
--- NOTE | 2024-02-25 15:52 | P.PN ---
Subjective Progress Note Date: 02/25/24 Principal diagnosis: Reason for follow-up is UTI question of pneumonia and a sacral pressure ulcer Patient is a 63-year-old female with a past medical history significan t for diabetes mellitus hypertension hyperlipidemia COPD current everyday smoker, recent multiple admission to the [facility] for UTI followed with the compression fracture of the spine and hypoglycemia has been brought in to [facility] for evaluation of increasing shortness of breath did have abnormal CT angiogram of the chest concerning for effusion atelectasis positive UA concerning for UTI and the patient also have a sacral pressure ulcer. On today's evaluation that is 02/25/2024, the patient continues to be afebrile, the patient is on room air and breathing comfortably, the Pt denies having any chest pain or any worsening cough, the patient denies having any abdominal pain no vomiting and did have a bowel movement. No lab draw today her white count was 6.9 as of yesterday blood culture repeat has been negative Objective - Vital Signs Vital signs: Vital Signs Temp 98.7 F 02/25/24 12:00 Pulse 106 H 02/25/24 12:00 Resp 16 02/25/24 12:00 BP 120/61 02/25/24 12:00 Pulse Ox 97 02/25/24 12:00 FiO2 Intake & Output 02/24/24 02/25/24 02/25/24 18:59 06:59 18:59 Intake Total 592 720 Output Total 2300 1100 Balance -1708 -1100 720 Weight 45 kg Intake: Oral 592 720 Output: Urine 2300 1100 Other: Voiding Method Indwelling Catheter Indwelling Catheter Indwelling Catheter # Bowel Movements 1 - Exam GENERAL DESCRIPTION: Middle-aged female lying in bed in no distress RESPIRATORY SYSTEM: Unlabored breathing , decreased breath sounds at bases HEART: S1 S2 regular rate and rhythm , ABDOMEN: Soft , no tenderness EXTREMITIES: No edema feet - Labs CBC & Chem 7: 02/24/24 07:46 02/24/24 07:46 Labs: Abnormal Lab Results - Last 24 Hours (Table) 02/24/24 02/24/24 02/25/24 Range/Units 16:22 20:05 06:04 POC Glucose (mg/dL) 169 H 182 H 272 H (70-110) mg/dL 02/25/24 Range/Units 11:41 POC Glucose (mg/dL) 320 H (70-110) mg/dL Assessment and Plan (1) Stage III pressure ulcer of sacral region Current Visit: Yes Status: Acute Code(s): L89.153 - PRESSURE ULCER OF SACRAL REGION, STAGE 3 SNOMED Code(s): 35777765036744 (2) Urinary tract infection Current Visit: Yes Status: Acute Code(s): N39.0 - URINARY TRACT INFECTION, SITE NOT SPECIFIED SNOMED Code(s): 45808455 (3) Aspiration pneumonia Current Visit: Yes Status: Acute Code(s): J69.0 - PNEUMONITIS DUE TO INHALATION OF FOOD AND VOMIT SNOMED Code(s): 843150197 (4) Candidemia Current Visit: Yes Status: Acute Code(s): B37.7 - CANDIDAL SEPSIS SNOMED Code(s): 687155484 Plan: 1patient with worsening of the white count no bowel movement for the last 4 to 5 days, patient did have CT abdominal pelvis CT shows large stool burden throughout the colon with 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 General surgery is planning for manually formation in the endoscopy suite tomorrow patient is covered with Zosyn 2-patient clinical course complicated by development of candidemia positive blood culture with Sarah albicans possible GI source, patient is s/p manual evaluation of her fecaloma completed on 02/14/2024 did have some rectal bleeding for the patient has been transferred to the ICU subsequently stabilized and transferred out of the ICU 3patient is afebrile white count has normalized and repeat blood culture has been negative 4-patient to continue with the Zosyn and Diflucan while inpatient, patient currently needed only 4 more days of Diflucan 400 mg p.o. daily and Augmentin 875 twice daily patient ended up getting discharged today Dictation was produced using [employer] dictation software. please excuse any grammatical, word or spelling errors. Time with Patient: Less than 30
[2024-02-25 16:55] LABS: Glucose,Whole Blood 301 mg/dL (70-110)
[2024-02-25 20:15] LABS: Glucose,Whole Blood 211 mg/dL (70-110)
--- NOTE | 2024-02-26 05:11 | PN ---
PROGRESS NOTE DATE OF SERVICE: 02/24/2024 SUBJECTIVE: This is a 64-year-old white female with COPD, hypoxemia. She is doing better. She has had no further minimal bleeding. Blood pressure is under better control. She is going to be possibly go home in next day or 2. She is going to go home, a lot of things are being set up including multiple wheelchair, bathroom assist, different things, hospital bed, , possible discharge home on 02/26/2024. Currently, continue current treatment. MMODL / IJN: [id number] /
[2024-02-26 06:17] LABS: Glucose,Whole Blood 268 mg/dL (70-110)
--- NOTE | 2024-02-26 08:44 | PN ---
PROGRESS NOTE Getting ready to go home. She has had COPD. She has had aspiration pneumonia. She has had UTI. She had surgical repair. She is getting ready to go home. No nausea or vomiting. Sodium 134, potassium 4.1, BUN 16, creatinine 0.30, hemoglobin 9.1. IMPRESSION: Aspiration pneumonia, urinary tract infection, stage III pressure ulcer of the sacral lesion, aspiration pneumonia, candidemia, COPD, pulmonary hypertension, status post , possibly go home on Diflucan and Augmentin the next day or 2 depending on the patient's help at home. PROGNOSIS: Guarded. MMODL / IJN: [id number] /
[2024-02-26] MEDS: AMOXIC-POT CLAV 875-125MG 1 EACH TAB PO SCH (08:57)
[2024-02-26] MEDS ORDERED: AMOXIC-POT CLAV 875-125MG 1 EACH TAB PO SCH (09:00)
[2024-02-26 11:29] LABS: Glucose,Whole Blood 155 mg/dL (70-110)
[2024-02-26] MEDS: methylPREDNISolone 4 MG TAB TAPER PO SCH (12:13)
[2024-02-26 12:34] VITALS: RESP 18; TEMP 98
[2024-02-26 14:11] VITALS: BP 118/65
--- NOTE | 2024-02-26 14:43 | P.PN ---
Subjective Progress Note Date: 02/26/24 Principal diagnosis: Reason for follow-up is UTI question of pneumonia and a sacral pressure ulcer Patient is a 63-year-old female with a past medical history significan t for diabetes mellitus hypertension hyperlipidemia COPD current everyday smoker, recent multiple admission to the [facility] for UTI followed with the compression fracture of the spine and hypoglycemia has been brought in to [facility] for evaluation of increasing shortness of breath did have abnormal CT angiogram of the chest concerning for effusion atelectasis positive UA concerning for UTI and the patient also have a sacral pressure ulcer. On today's evaluation that is 02/26/2024, Patient is afebrile patient is currently on room air and denies having any shortness of breath, the patient denies any chest pain or cough, the patient denies any nausea vomiting did not have any abdominal pain and no diarrhea, mention feeling better wants to go home. No new labs has been repeated today Objective - Vital Signs Vital signs: Vital Signs Temp 98.0 F 02/26/24 08:00 Pulse 100 02/26/24 12:18 Resp 18 02/26/24 12:00 BP 118/65 02/26/24 12:00 Pulse Ox 98 02/26/24 12:00 FiO2 Intake & Output 02/25/24 02/26/24 02/26/24 18:59 06:59 18:59 Intake Total 1720 476 Output Total 650 750 Balance 1070 -750 476 Intake: IV 300 Fluconazole in NaCl,Iso- 100 Osm 400 mg In Saline 1 200ml.bag @ 100 mls/hr IVPB DAILY KARINA Rx#: [id number] Piperacillin-Tazobactam 3 200 .375 gm In Sodium Chloride 0.9% 100 ml @ 25 mls/hr IVPB Q8HR KARINA Rx# :[id number] Intake, IV Titration 100 Amount Sodium Ferric Gluconat- 100 Sucrose 125 mg In Sodium Chloride 0.9% 100 ml @ 100 mls/hr IVPB DAILY KARINA Rx#:[id number] Oral 1320 476 Output: Urine 650 750 Other: Voiding Method Indwelling Catheter Indwelling Catheter Indwelling Catheter # Bowel Movements 1 - Exam GENERAL DESCRIPTION: Middle-aged female lying in bed in no distress RESPIRATORY SYSTEM: Unlabored breathing , decreased breath sounds at bases HEART: S1 S2 regular rate and rhythm , ABDOMEN: Soft , no tenderness EXTREMITIES: No edema feet - Labs CBC & Chem 7: 02/24/24 07:46 02/24/24 07:46 Labs: Abnormal Lab Results - Last 24 Hours (Table) 02/25/24 02/25/24 02/26/24 Range/Units 16:52 20:13 06:15 POC Glucose (mg/dL) 301 H 211 H 268 H (70-110) mg/dL 02/26/24 Range/Units 11:28 POC Glucose (mg/dL) 155 H (70-110) mg/dL Assessment and Plan (1) Stage III pressure ulcer of sacral region Current Visit: Yes Status: Acute Code(s): L89.153 - PRESSURE ULCER OF SACRAL REGION, STAGE 3 SNOMED Code(s): 93411136310563 (2) Urinary tract infection Current Visit: Yes Status: Acute Code(s): N39.0 - URINARY TRACT INFECTION, SITE NOT SPECIFIED SNOMED Code(s): 21311807 (3) Aspiration pneumonia Current Visit: Yes Status: Acute Code(s): J69.0 - PNEUMONITIS DUE TO INHALATION OF FOOD AND VOMIT SNOMED Code(s): 891871990 (4) Candidemia Current Visit: Yes Status: Acute Code(s): B37.7 - CANDIDAL SEPSIS SNOMED Code(s): 444061950 Plan: 1patient with worsening of the white count no bowel movement for the last 4 to 5 days, patient did have CT abdominal pelvis CT shows large stool burden throughout the colon with 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 General surgery is planning for manually formation in the endoscopy suite tomorrow patient is covered with Zosyn 2-patient clinical course complicated by development of candidemia positive blood culture with Sarah albicans possible GI source, patient is s/p manual evaluation of her fecaloma completed on 02/14/2024 did have some rectal bleeding for the patient has been transferred to the ICU subsequently stabilized and transferred out of the ICU 3patient is afebrile white count has normalized and repeat blood culture has been negative 4-patient currently being treated Zosyn and Diflucan while inpatient, however the patient needs only 3 more days of Diflucan 400 mg p.o. daily and Augmentin 875 twice daily on discharge if ended up getting discharged today Family the bedside questions were answered Dictation was produced using dragon dictation software. please excuse any grammatical, word or spelling errors. Time with Patient: Less than 30
[2024-02-26 16:36] VITALS: PULSE 106
--- NOTE | 2024-02-28 23:29 | CDI ---
Documentation Clarification Form Date: 02/28/2024 11:10:36 PM From: Jessica Morin Phone: Admit Date: 01/29/2024 04:44:00 PM Patient Name: Sha Lucio Visit Number: [id number] Discharge Date: 02/26/2024 03:43:00 PM ATTENTION: The Clinical Documentation Specialists (CDI) and [facility] Coding Staff appreciate your assistance in clarifying documentation. Please respond to the clarification below the line at the bottom and electronically sign. The CDI & [facility] Coding staff will review the response and follow-up if needed. Please note: Queries are made part of the Legal Health Record. If you have any questions, please contact the author of this message via ITS. Dr. Cory Lloyd Malnutrition is documented PER Progress Note 02/14. Additional clarification regarding the severity of malnutrition is requested. History/Risk Factors: 63yo F, Asp PNA,UTI d/t chronic FC,ACHRF on O2, proctitis w rectal bleed, stage III pressure ulcer sacral, candidemia,AECOPD,PHTN, HLD, HTN w HD, Fecal impaction,smoker Clinical Indicators: Pt health has been deteriorating over the past 1 year. The patient has lost considerable amount of weight. She has had issues with oropharyngeal thrushand she has not been able to take oral intake adequately and she has been meeting her caloric requirements. Patient has not more than 50 pounds of weight. Current BMI: 15.1 She has developed asacral decubitus ulcer stage II. She isweak,cachectic,malnourished, and remains debilitatedat this point. She is eating well. Patient mention tolerating her diet and is having a bowel movement. Treatment: She will be on a diabetic diet. Try to limit her pop and sugar intake, drink lots of water. Please clarify the severity of malnutrition, if known: [ ] Moderate Protein-Calorie Malnutrition [ ] Severe Protein-Calorie Malnutrition [ ] Malnutrition, unknown severity [ ] Other condition, please specify [ ] Unable to Determine (Template Last Revised: March 2023) MTDD
--- NOTE | 2024-02-28 23:35 | CDI ---
Documentation Clarification Form Date: 02/28/2024 11:30:13 PM From: Jessica Morin Phone: Admit Date: 01/29/2024 04:44:00 PM Patient Name: Sha Lucio Visit Number: [id number] Discharge Date: 02/26/2024 03:43:00 PM ATTENTION: The Clinical Documentation Specialists (CDI) and [facility] Coding Staff appreciate your assistance in clarifying documentation. Please respond to the clarification below the line at the bottom and electronically sign. The CDI & [facility] Coding staff will review the response and follow-up if needed. Please note: Queries are made part of the Legal Health Record. If you have any questions, please contact the author of this message via ITS. Dr. Cory Lloyd Unspecified anemia is documented per Progress Note 02/18. Additional specificity regarding the type of anemia is requested. History/Risk Factors: : 63yo F, Asp PNA, UTI d/t chronic FC, ACHRF on O2, stage III pressure ulcer sacral, candidemia, AECOPD, PHTN, HLD, HTN w HD, Fecal impaction, proctitis w rectal bleed, smoker, malnutrition, cachexia Clinical indicators: Hgb 10.3 Hct 30.9 Treatment: Daily CBC,transfusefor hemoglobin less than 7 Please clarify the type of anemia: [ ] Acute blood loss anemia [ ] Acute on chronic blood loss anemia [ ] Nutritional anemia [ ] Unable to determine [ ] Other, please specify (Template Last Revised: October 2020) MTDD
--- NOTE | 2024-02-28 23:48 | CDI ---
Documentation Clarification Form Date: 02/28/2024 11:36:34 PM From: Jessica Morin Phone: Admit Date: 01/29/2024 04:44:00 PM Patient Name: Sha Lucio Visit Number: [id number] Discharge Date: 02/26/2024 03:43:00 PM ATTENTION: The Clinical Documentation Specialists (CDI) and [facility] Coding Staff appreciate your assistance in clarifying documentation. Please respond to the clarification below the line at the bottom and electronically sign. The CDI & [facility] Coding staff will review the response and follow-up if needed. Please note: Queries are made part of the Legal Health Record. If you have any questions, please contact the author of this message via ITS. Dr. Cory Lloyd Your patient has an abnormal lab value: [id number]. Please clarify if there is an additional diagnosis and/or clinical significance related to this value. History/Risk Factors: 64yo F, Asp PNA, UTI d/t chronic FC, ACHRF on O2, stage III pressure ulcer sacral, candidemia, AECOPD, PHTN, HLD, HTN w HD, Fecal impaction, proctitis w rectal bleed, smoker, malnutrition, cachexia, recent Hx DKA Clinical indicators: Glucose: 01/28 326 01/30 494 01/31 50-293 02/09 37-253 Treatment: Home Meds- Insulin Glargine,Hum.rec.anlog 15 units SQ HS[Lantus Solostar Pen]; Insulin Lispro [Insulin Lispro 5 units SQ TID-W/MEALSKwikpen U- 100] Is there an additional diagnosis and/or clinical significance related to the above lab result/information? Please select all/any that apply. [ ] DM 1 with hyperglycemia [ ] DMI with hypoglycemia [ ] No additional diagnosis/Not clinically significant [ ] Other, please specify [ ] Unable to determine (Template Last Revised: October 2020) MTDD
--- NOTE | 2024-03-03 20:46 | PN ---
PROGRESS NOTE Acute on chronic blood loss anemia, diabetes mellitus type 1 with hyperglycemia. MMODL / IJN: [id number] /
--- NOTE | 2024-03-06 14:35 | CDI ---
Documentation Clarification Form Date: 03/06/2024 02:27:21 PM From: Jessica Morin Phone: Admit Date: 01/29/2024 04:44:00 PM Patient Name: Sha Lucio Visit Number: [id number] Discharge Date: 02/26/2024 03:43:00 PM ATTENTION: The Clinical Documentation Specialists (CDI) and [facility] Coding Staff appreciate your assistance in clarifying documentation. Please respond to the clarification below the line at the bottom and electronically sign. The CDI & [facility] Coding staff will review the response and follow-up if needed. Please note: Queries are made part of the Legal Health Record. If you have any questions, please contact the author of this message via ITS. Dr. Cory Lloyd Thank you for acknowledging the previous queries; however, this one lacked an answer. Patient is noted to be cachectic and malnourishedis documented per Consult Note /5 and throughout Progress Notes. Additional clarification regarding the severity ofmalnutritionis requested. History/Risk Factors: 63yo F, AspPNA,UTId/t chronic FC,ACHRF on O2, proctitisw rectal bleed,stage III pressure ulcer sacral, candidemia,AECOPD,PHTN,HLD,HTNw HD,Fecal impaction,smoker Clinical Indicators: Pt health has been deteriorating over the past 1 year. The patient has lost considerable amount of weight. She has had issues with oropharyngealthrushand she has not been able to take oral intake adequately and she has been meeting her caloric requirements. Patient has not more than 50 pounds of weight. CurrentBMI: 15.1 She has developed asacral decubitus ulcer stage II. She isweak,cachectic,malnourished, and remainsdebilitatedat this point. She is eating well. Patient mention tolerating her diet and is having a bowel movement. Treatment: She will be on adiabeticdiet. Try to limit her pop and sugar intake, drink lots of water. Please clarify the severity ofmalnutrition, if known: [ ]Moderate Protein-Calorie Malnutrition [ ]Severe Protein-Calorie Malnutrition [ ]Malnutrition, unknown severity [ ] other condition, please specify [ ] Unable to Determine Please clarify the cause of cachexia: [ ] Cachectic due to malnutrition [ ] Cachectic due to ( Provider please specify) [ ] Unknow cause [ ] Unable to determin (Template LastRevised: March 2023) MTDD
--- NOTE | 2024-03-08 10:54 | PN ---
PROGRESS NOTE ADDENDUM: Severe protein-calorie malnutrition. MMODL / IJN: [id number] /
== END 2024-02-26 15:43 | DRG 140 ==
LOC: EC 12:09 → 4SSUR 16:44 → 2SICU 02-14 16:09 → 3SCARD 02-15 16:03 → 4SSUR 02-20 21:43 → 3SCARD 02-23 00:20
PROVIDERS: ADMIT Family Medicine; ATTEND Family Medicine
PROC: 0DCP8ZZ Extirpation of Matter from Rectum, Via Natural or Artificial Opening Endoscopic (ICD-10-PCS; principal; 2024-02-14 07:50)
DX: J44.1 Chronic obstructive pulmonary disease with (acute) exacerbation (principal); E86.0 Dehydration; J96.21 Acute and chronic respiratory failure with hypoxia; J69.0 Pneumonitis due to inhalation of food and vomit; L89.152 Pressure ulcer of sacral region, stage 2; B37.7 Candidal sepsis; T83.511A Infection and inflammatory reaction due to indwelling urethral catheter, initial encounter; Z79.4 Long term (current) use of insulin; K56.41 Fecal impaction; I27.20 Pulmonary hypertension, unspecified; E10.40 Type 1 diabetes mellitus with diabetic neuropathy, unspecified; K51.211 Ulcerative (chronic) proctitis with rectal bleeding; E10.65 Type 1 diabetes mellitus with hyperglycemia; E43 Unspecified severe protein-calorie malnutrition; E88.A Wasting disease (syndrome) due to underlying condition; D62 Acute posthemorrhagic anemia; Z99.81 Dependence on supplemental oxygen; E87.6 Hypokalemia; J90 Pleural effusion, not elsewhere classified; B37.0 Candidal stomatitis; R62.7 Adult failure to thrive; I11.9 Hypertensive heart disease without heart failure; F32.A Depression, unspecified; R33.9 Retention of urine, unspecified; F17.210 Nicotine dependence, cigarettes, uncomplicated; G89.29 Other chronic pain; K60.2 Anal fissure, unspecified; F41.1 Generalized anxiety disorder; Z68.1 Body mass index [BMI] 19.9 or less, adult; B37.49 Other urogenital candidiasis; E78.5 Hyperlipidemia, unspecified; R29.6 Repeated falls; R33.8 Other retention of urine; Y73.1 Therapeutic (nonsurgical) and rehabilitative gastroenterology and urology devices associated with adverse incidents; Z74.01 Bed confinement status; Z79.51 Long term (current) use of inhaled steroids; Z79.84 Long term (current) use of oral hypoglycemic drugs; Z79.899 Other long term (current) drug therapy; S32.009S Unspecified fracture of unspecified lumbar vertebra, sequela; Z11.52 Encounter for screening for COVID-19; I25.2 Old myocardial infarction; Z91.81 History of falling; S32.591S Other specified fracture of right pubis, sequela
CPT/HCPCS: 36415; 45331; 71045; 71046; 71275; 74176; 78306; 80053; 81001; 82272; 83605; 83735; 83880; 84132; 84145; 84146; 84484; 85025; 85027; 85379; 85610; 85730; 86140; 87040; 87086; 87324; 87636; 93005; 93306; 94640; 94760; 96361; 96374; 99285

== ENCOUNTER 2024-03-13 15:46 | Inpatient (IN) | payer OTHER ==
[2024-03-13] MEDS: LORazepam 2 MG/ML INJ IV STA ×3 (16:29→17:59)
--- NOTE | 2024-03-13 16:29 | ED ---
General Adult HPI - General Chief complaint: Shortness of Breath Stated complaint: ABI Source: patient, RN notes reviewed Mode of arrival: EMS Limitations: no limitations - History of Present Illness Initial comments: Patient is a 64-year-old female present to the emergency department with difficulty breathing. Patient does have recent admission with dyspnea. Onset of symptoms 7-day was this morning. No cough. No fever. Patient feels her breathing is becoming severe again. Patient does have history of COPD and CHF with similar symptoms - Related Data Home Medications Medication Instructions Recorded Confirmed Budesonide/Formoterol Fumarate 2 puff INHALATION RT-BID 01/29/24 03/13/24 [Symbicort 160-4.5 Mcg Inhaler] Escitalopram [Lexapro] 10 mg PO DAILY 01/29/24 03/13/24 Insulin Glargine,Hum.rec.anlog 15 units SQ HS 01/29/24 03/13/24 [Lantus Solostar Pen] Insulin Lispro [Insulin Lispro 5 units SQ TID-W/MEALS 01/29/24 03/13/24 Kwikpen U-100] Lactobacillus Rhamnosus GG 1 cap PO BID 01/29/24 03/13/24 [Culturelle] Melatonin 3 mg PO HS PRN 01/29/24 03/13/24 Montelukast [Singulair] 10 mg PO HS 01/29/24 03/13/24 Nicotine 14Mg/24Hr Patch [Habitrol] 1 patch TRANSDERM DAILY 01/29/24 03/13/24 Pioglitazone HCl 15 mg PO DAILY 01/29/24 03/13/24 amLODIPine [Norvasc] 5 mg PO BID 01/29/24 03/13/24 guaiFENesin [guaiFENesin ER] 600 mg PO BID 01/29/24 03/13/24 Furosemide [Lasix] 40 mg PO BID 03/13/24 03/13/24 Previous Rx's Medication Instructions Recorded Budesonide [Pulmicort] 1 mg INHALATION RT-BID ml 02/05/24 Formoterol Fumarate [Perforomist] 20 mcg INHALATION RT-BID ml 02/05/24 Ipratropium-Albuterol Nebulize 3 ml INHALATION RT-QID each 02/05/24 [Duoneb 0.5 mg-3 mg/3 ml Soln] Pantoprazole [Protonix] 40 mg PO AC-BID tab 02/05/24 Voriconazole [Vfend] 200 mg PO Q12HR tab 02/05/24 Acetaminophen Tab [Tylenol] 650 mg PO Q4HR PRN tab 02/26/24 Lactulose [Cephulac] 20 gm PO TID 30 Days #90 ml 02/26/24 Allergies Allergy/AdvReac Type Severity Reaction Status Date / Time No Known Allergies Allergy Verified 03/13/24 17:23 Review of Systems ROS Statement: Those systems with pertinent positive or pertinent negative responses have been documented in the HPI. ROS Other: All systems not noted in ROS Statement are negative. Constitutional: Denies: fever Eyes: Denies: eye pain ENT: Denies: ear pain Respiratory: Reports: as per HPI, dyspnea Cardiovascular: Denies: chest pain Endocrine: Denies: fatigue Gastrointestinal: Denies: abdominal pain Genitourinary: Denies: dysuria Past Medical History Past Medical History: COPD, Diabetes Mellitus, Hyperlipidemia, Hypertension History of Any Multi-Drug Resistant Organisms: None Reported Past Surgical History: Adenoidectomy, Hysterectomy, Tubal Ligation Additional Past Surgical History / Comment(s): 2 tumors removals Past Psychological History: Depression Smoking Status: Current every day smoker Past Alcohol Use History: None Reported Past Drug Use History: None Reported General Exam Limitations: no limitations General appearance: alert Head exam: Present: normocephalic Eye exam: Present: normal appearance ENT exam: Present: mucous membranes dry Neck exam: Present: normal inspection Respiratory exam: Present: respiratory distress, rales (Right base) Cardiovascular Exam: Present: tachycardia, systolic murmur GI/Abdominal exam: Present: soft. Absent: tenderness Extremities exam: Present: normal inspection. Absent: pedal edema, calf tenderness Neurological exam: Present: alert Psychiatric exam: Present: normal affect, normal mood Skin exam: Present: other (Several stage I/stage II leg ulcer) Course Vital Signs 03/13/24 03/13/24 03/13/24 15:50 15:57 16:17 Temperature 97.1 F L Pulse Rate 121 H 126 H Respiratory 42 H 40 H 26 H Rate Blood Pressure 121/86 120/76 O2 Sat by Pulse 97 100 Oximetry Fraction of Inspired Oxygen (FIO2) 03/13/24 03/13/24 03/13/24 16:30 16:55 17:45 Temperature Pulse Rate 124 H 126 H 129 H Respiratory 40 H 36 H 42 H Rate Blood Pressure 95/69 99/79 108/82 O2 Sat by Pulse 96 97 98 Oximetry Fraction of 50 Inspired Oxygen (FIO2) 03/13/24 03/13/24 03/13/24 18:32 18:35 18:47 Temperature Pulse Rate 125 H 122 H Respiratory 36 H 38 H Rate Blood Pressure 112/90 115/79 O2 Sat by Pulse 97 98 Oximetry Fraction of 100 Inspired Oxygen (FIO2) 03/13/24 03/13/24 03/13/24 19:01 19:03 19:09 Temperature Pulse Rate 123 H 112 H Respiratory 20 20 Rate Blood Pressure 112/99 112/99 O2 Sat by Pulse 100 100 Oximetry Fraction of 100 Inspired Oxygen (FIO2) 03/13/24 20:25 Temperature Pulse Rate Respiratory Rate Blood Pressure O2 Sat by Pulse Oximetry Fraction of 50 Inspired Oxygen (FIO2) EKG Findings - EKG Results: EKG: interpreted by ERMD, sinus rhythm, normal axis, normal QRS, normal ST/T EKG shows: tachycardia Procedures - Intubation Sedative: Versed Paralytic: Succinylcholine Laryngoscope: Thomas Size: 3 ET Tube Size: 7.5 Tube Placement Confirmation: visualized tube passing through cords, equal breath sounds bilaterally, no breath sounds over epigastrium Patient Tolerated Procedure: well Intubation Complications: none - Sepsis Sepsis Focused Exam #1 Time Sepsis Criteria Met: 20:20 Sepsis Focused Exam Date: 03/13/24 Sepsis Focused Exam Time: 21:24 Sepsis Focused Exam Complete: Yes Vital Signs & RN Notes Reviewed: Yes Capillary Refill: < 2 Seconds: Fingers, Toes Peripheral Pulses: Normal: Radial (R), Radial (L) Skin Color: Normal for Patient Respiratory Exam: rales Cardiovascular Exam: tachycardia Medical Decision Making - Medical Decision Making Patient was put on BiPAP and observed until 6:55 PM. Patient without significant improvement, only mild and therefore decision was made to be intubated. Patient was in agreement and so his family. Case was earlier discussed with Dr. Roman who will consult for critical care Was pt. sent in by a medical professional or institution (, PA, BEE KEEPER, urgent care, hospital, or long-term...) When possible be specific @ -No Did you speak to anyone other than the patient for history (EMS, parent, family, police, friend...)? What history was obtained from this source @ -EMS provides history of medications given and route Did you review nursing and triage notes (agree or disagree)? Why? @ -I reviewed and agree with nursing and triage notes Were old charts reviewed (outside hosp., previous admission, EMS record, old EKG, old radiological studies, urgent care reports/EKG's, long-term records)? Report findings @ -Previous admission and x-rays reviewed Differential Diagnosis (chest pain, altered mental status, abdominal pain women, abdominal pain men, vaginal bleeding, weakness, fever, dyspnea, syncope, h eadache, dizziness, GI bleed, back pain, seizure, CVA, palpatations, mental health, musculoskeletal)? @ -MDM differential distal differential Dyspnea: Coronary syndrome, arrhythmia, tamponade, asthma, COPD, pulmonary embolism, pneumonia, pneumothorax, pulmonary effusion, anaphylaxis, diabetic ketoacidosis, flailed chest, pulmonary contusion, diaphragmatic rupture, anemia, neuromuscular, this is not meant to be an all-inclusive list. EKG interpreted by me (3pts min.). @ -As above X-rays interpreted by me (1pt min.). @ -Chest x-ray shows moderate left effusion CT interpreted by me (1pt min.). @ -CT scan as discussed with radiologist has concern for right upper pulmonary embolism, right mid opacity and left-sided effusion U/S interpreted by me (1pt. min.). @ -None done What testing was considered but not performed or refused? (CT, X-rays, U/S, labs)? Why? @ -None What meds were considered but not given or refused? Why? @ -None Did you discuss the management of the patient with other professionals (professionals i.e. DrCici, PA, BEE KEEPER, lab, RT, psych nurse, social services analyst, building maintenance engineer, teacher, airfield services officer, renal case manager)? Give summary @ -Case was discussed with Dr. Roman who will consult for critical care. Case also discussed with Dr. Lloyd who will admit his patient Was smoking cessation discussed for >3mins.? @ -No Was critical care preformed (if so, how long)? @ -31 minutes critical care time provided Were there social determinants of health that impacted care today? How? (Homelessness, low income, unemployed, alcoholism, drug addiction, transportation, low edu. Level, literacy, decrease access to med. care, prison, rehab)? @ -No Was there de-escalation of care discussed even if they declined (Discuss DNR or withdrawal of care, Hospice)? DNR status @ -No What co-morbidities impacted this encounter? (DM, HTN, Smoking, COPD, CAD, Cancer, CVA, ARF, Chemo, Hep., AIDS, mental health diagnosis, sleep apnea, morbid obesity)? @ -Recent admission with pulmonary concern Was patient admitted / discharged? Hospital course, mention meds given and route, prescriptions, significant lab abnormalities, going to OR and other pertinent info. @ -Patient presents in respiratory distress. No significant improvement with BiPAP. Patient intubated. There is concern for sepsis diagnosed in 2019. Blood culture lactic acid and fluid bolus and IV antibiotics all ordered. Patient will be admitted to intensive care unit. Admission orders written. Undiagnosed new problem with uncertain prognosis? @ -No Drug Therapy requiring intensive monitoring for toxicity (Heparin, Nitro, Insulin, Cardizem)? @ -No Were any procedures done? @ -Intubation Diagnosis/symptom? @ -Respiratory failure, pulmonary embolism, pneumonia, sepsis Acute, or Chronic, or Acute on Chronic? @ -Acute, acute, acute, acute Uncomplicated (without systemic symptoms) or Complicated (systemic symptoms)? @ -Complicated Side effects of treatment? @ -No Exacerbation, Progression, or Severe Exacerbation? @ -No Poses a threat to life or bodily function? How? (Chest pain, USA, MD, pneumonia, PE, COPD, DKA, ARF, appy, cholecystitis, CVA, Diverticulitis, Homicidal, Suicidal, threat to staff... and all critical care pts) @ -Threat to pulmonary function and multiorgan dysfunction - Lab Data Result diagrams: 03/13/24 16:23 03/13/24 17:15 Lab Results 03/13/24 03/13/24 03/13/24 Range/Units 16:23 16:23 16:23 WBC 29.1 H (3.8-10.6) k/uL RBC 4.25 (3.80-5.40) m/uL Hgb 14.0 D (11.4-16.0) gm/dL Hct 42.9 (34.0-46.0) % MCV 101.1 H (80.0-100.0) fL MCH 32.8 (25.0-35.0) pg MCHC 32.5 (31.0-37.0) g/dL RDW 15.3 (11.5-15.5) % Plt Count 591 H (150-450) k/uL MPV 8.7 Neutrophils % 92 % Lymphocytes % 3 % Monocytes % 4 % Eosinophils % 0 % Basophils % 0 % Neutrophils # 26.9 H (1.3-7.7) k/uL Lymphocytes # 0.9 L (1.0-4.8) k/uL Monocytes # 1.1 H (0-1.0) k/uL Eosinophils # 0.1 (0-0.7) k/uL Basophils # 0.1 (0-0.2) k/uL Manual Slide Review Performed Hypochromasia Slight Poikilocytosis Slight Macrocytosis Slight PT 9.9 L (10.0-12.5) sec INR 0.9 (<1.2) APTT 22.3 (22.0-30.0) sec Sample Site ABG pH (7.35-7.45) ABG pCO2 (35-45) mmHg ABG pO2 (83-108) mmHg ABG HCO3 (21-25) mmol/L ABG Total CO2 (19-24) mmol/L ABG O2 Saturation (94-97) % ABG Base Excess mmol/L Andrade Test Sodium (137-145) mmol/L Potassium (3.5-5.1) mmol/L Chloride (98-107) mmol/L Carbon Dioxide (22-30) mmol/L Anion Gap mmol/L BUN (7-17) mg/dL Creatinine (0.52-1.04) mg/dL Est GFR (CKD-EPI)AfAm (>60 ml/min/1.73 sqM) Est GFR (CKD-EPI)NonAf (>60 ml/min/1.73 sqM) Glucose (74-99) mg/dL Lactic Ac Sepsis Rflx Plasma Lactic Acid Isaac (0.7-2.0) mmol/L Calcium (8.4-10.2) mg/dL Magnesium (1.6-2.3) mg/dL Total Bilirubin (0.2-1.3) mg/dL AST (14-36) U/L ALT (4-34) U/L Alkaline Phosphatase (38-126) U/L Troponin I 0.021 (0.000-0.034) ng/mL NT-Pro-B Natriuret Pep pg/mL Total Protein (6.3-8.2) g/dL Albumin (3.5-5.0) g/dL Influenza Type A (PCR) (Not Detectd) Influenza Type B (PCR) (Not Detectd) RSV (PCR) (Not Detectd) SARS-CoV-2 (PCR) (Not Detectd) 03/13/24 03/13/24 03/13/24 Range/Units 16:28 17:15 17:52 WBC (3.8-10.6) k/uL RBC (3.80-5.40) m/uL Hgb (11.4-16.0) gm/dL Hct (34.0-46.0) % MCV (80.0-100.0) fL MCH (25.0-35.0) pg MCHC (31.0-37.0) g/dL RDW (11.5-15.5) % Plt Count (150-450) k/uL MPV Neutrophils % % Lymphocytes % % Monocytes % % Eosinophils % % Basophils % % Neutrophils # (1.3-7.7) k/uL Lymphocytes # (1.0-4.8) k/uL Monocytes # (0-1.0) k/uL Eosinophils # (0-0.7) k/uL Basophils # (0-0.2) k/uL Manual Slide Review Hypochromasia Poikilocytosis Macrocytosis PT (10.0-12.5) sec INR (<1.2) APTT (22.0-30.0) sec Sample Site ABG pH (7.35-7.45) ABG pCO2 (35-45) mmHg ABG pO2 (83-108) mmHg ABG HCO3 (21-25) mmol/L ABG Total CO2 (19-24) mmol/L ABG O2 Saturation (94-97) % ABG Base Excess mmol/L Andrade Test Sodium 136 L (137-145) mmol/L Potassium 2.6 L* (3.5-5.1) mmol/L Chloride 97 L (98-107) mmol/L Carbon Dioxide 29 (22-30) mmol/L Anion Gap 10 mmol/L BUN 15 (7-17) mg/dL Creatinine 0.27 L (0.52-1.04) mg/dL Est GFR (CKD-EPI)AfAm >90 (>60 ml/min/1.73 sqM) Est GFR (CKD-EPI)NonAf >90 (>60 ml/min/1.73 sqM) Glucose 292 H (74-99) mg/dL Lactic Ac Sepsis Rflx Plasma Lactic Acid Isaac 4.9 H* (0.7-2.0) mmol/L Calcium 8.9 (8.4-10.2) mg/dL Magnesium 1.7 (1.6-2.3) mg/dL Total Bilirubin 0.6 (0.2-1.3) mg/dL AST 29 (14-36) U/L ALT 31 (4-34) U/L Alkaline Phosphatase 327 H (38-126) U/L Troponin I (0.000-0.034) ng/mL NT-Pro-B Natriuret Pep 846 pg/mL Total Protein 5.7 L (6.3-8.2) g/dL Albumin 3.3 L (3.5-5.0) g/dL Influenza Type A (PCR) Not Detected (Not Detectd) Influenza Type B (PCR) Not Detected (Not Detectd) RSV (PCR) Not Detected (Not Detectd) SARS-CoV-2 (PCR) Not Detected (Not Detectd) 03/13/24 03/13/24 Range/Units 18:19 20:07 WBC (3.8-10.6) k/uL RBC (3.80-5.40) m/uL Hgb (11.4-16.0) gm/dL Hct (34.0-46.0) % MCV (80.0-100.0) fL MCH (25.0-35.0) pg MCHC (31.0-37.0) g/dL RDW (11.5-15.5) % Plt Count (150-450) k/uL MPV Neutrophils % % Lymphocytes % % Monocytes % % Eosinophils % % Basophils % % Neutrophils # (1.3-7.7) k/uL Lymphocytes # (1.0-4.8) k/uL Monocytes # (0-1.0) k/uL Eosinophils # (0-0.7) k/uL Basophils # (0-0.2) k/uL Manual Slide Review Hypochromasia Poikilocytosis Macrocytosis PT (10.0-12.5) sec INR (<1.2) APTT (22.0-30.0) sec Sample Site L Rad ABG pH 7.49 H (7.35-7.45) ABG pCO2 37 (35-45) mmHg ABG pO2 358 H (83-108) mmHg ABG HCO3 28 H (21-25) mmol/L ABG Total CO2 29 H (19-24) mmol/L ABG O2 Saturation 101.2 H (94-97) % ABG Base Excess 4.4 mmol/L Andrade Test Yes Sodium (137-145) mmol/L Potassium (3.5-5.1) mmol/L Chloride (98-107) mmol/L Carbon Dioxide (22-30) mmol/L Anion Gap mmol/L BUN (7-17) mg/dL Creatinine (0.52-1.04) mg/dL Est GFR (CKD-EPI)AfAm (>60 ml/min/1.73 sqM) Est GFR (CKD-EPI)NonAf (>60 ml/min/1.73 sqM) Glucose (74-99) mg/dL Lactic Ac Sepsis Rflx Y Plasma Lactic Acid Isaac (0.7-2.0) mmol/L Calcium (8.4-10.2) mg/dL Magnesium (1.6-2.3) mg/dL Total Bilirubin (0.2-1.3) mg/dL AST (14-36) U/L ALT (4-34) U/L Alkaline Phosphatase (38-126) U/L Troponin I (0.000-0.034) ng/mL NT-Pro-B Natriuret Pep pg/mL Total Protein (6.3-8.2) g/dL Albumin (3.5-5.0) g/dL Influenza Type A (PCR) (Not Detectd) Influenza Type B (PCR) (Not Detectd) RSV (PCR) (Not Detectd) SARS-CoV-2 (PCR) (Not Detectd) Critical Care Time Critical Care Time: Yes Disposition Clinical Impression: Pleural effusion, Acute respiratory failure, Pneumonia, Sepsis, Pulmonary embolism Disposition: ADMITTED IP TO THIS HOSP Condition: Critical Is patient prescribed a controlled substance at d/c from ED?: No Time of Disposition: 21:27
[2024-03-13 16:43] LABS: INR 0.9 (<1.2); Partial Thromboplastin Time 22.3 sec (22.0-30.0); Prothrombin Time 9.9 sec (10.0-12.5)
--- NOTE | 2024-03-13 16:51 | XR ---
EXAMINATION TYPE: XR chest 1V portable DATE OF EXAM: 03/13/2024 4:41 PM CLINICAL INDICATION:Female, 64 years old with history of radha; [facility] COMPARISON: Chest radiographs from 02/17/2024 TECHNIQUE: XR chest 1V portable Frontal view of the chest. FINDINGS: Lungs/Pleura: Blunting of the left costophrenic angle. There is no evidence of right pleural effusion , focal consolidation, or pneumothorax. Pulmonary vascularity: Unremarkable. Heart/mediastinum: Cardiomediastinal silhouette is unremarkable. Musculoskeletal: No acute osseous pathology. IMPRESSION: [id number] left pleural effusion.
[2024-03-13 16:52] LABS: Basophils # (A) 0.1 k/uL (0-0.2); Basophils % (A) 0 %; Eosinophils # (A) 0.1 k/uL (0-0.7); Eosinophils % (A) 0 %; HCT 42.9 % (34.0-46.0); Hypochromasia Slight; Lymphocytes # (A) 0.9 k/uL (1.0-4.8); Lymphocytes % (A) 3 %; MCH 32.8 pg (25.0-35.0); MCHC 32.5 g/dL (31.0-37.0); MCV 101.1 fL (80.0-100.0); Macrocytosis Slight; Mean Platelet Volume 8.7; Monocytes # (A) 1.1 k/uL (0-1.0); Monocytes % (A) 4 %; Neutrophils # (A) 26.9 k/uL (1.3-7.7); Neutrophils % (A) 92 %; Platelet Count 591 k/uL (150-450); Poikilocytosis Slight; RBC 4.25 m/uL (3.80-5.40); RDW 15.3 % (11.5-15.5); WBC 29.1 k/uL (3.8-10.6)
[2024-03-13 17:40] LABS: AST 29 U/L (14-36); African American GFR (CKD) >90 (>60 ml/min/1.73 sqM); Albumin 3.3 g/dL (3.5-5.0); Alkaline Phosphatase 327 U/L (38-126); Anion Gap 10 mmol/L; Blood Urea Nitrogen 15 mg/dL (7-17); Calcium 8.9 mg/dL (8.4-10.2); Carbon Dioxide 29 mmol/L (22-30); Chloride 97 mmol/L (98-107); Glucose 292 mg/dL (74-99); Magnesium 1.7 mg/dL (1.6-2.3); Non-African American GFR(CKD) >90 (>60 ml/min/1.73 sqM); Sodium 136 mmol/L (137-145); Total Bilirubin 0.6 mg/dL (0.2-1.3); Total Protein 5.7 g/dL (6.3-8.2)
[2024-03-13 17:43] LABS: Potassium 2.6 mmol/L (3.5-5.1)
[2024-03-13 17:46] LABS: ALT 31 U/L (4-34)
[2024-03-13 17:47] LABS: NT-Pro-B-Type Natriuretic Pept 846 pg/mL
[2024-03-13] MEDS ORDERED: LORazepam 2 MG/ML INJ IV PRN (18:33)
[2024-03-13] MEDS ORDERED: IPRATROPIUM-ALBUTEROL 3 ML NEB INHALATION PRN (18:33)
[2024-03-13] MEDS ORDERED: SUCCINYLCHOLINE CHLORIDE 200 MG/10 ML VIAL IV STA (18:35)
[2024-03-13] MEDS: SUCCINYLCHOLINE CHLORIDE 200 MG/10 ML VIAL IV STA (18:54)
[2024-03-13] MEDS: MIDAZOLAM 1 MG/ML 5 ML VIAL IV STA (18:54)
[2024-03-13] MEDS: POTASSIUM CHLORIDE 20 MEQ in WATER FOR INJECTION 1 100ML.BAG IVPB STA (19:16)
--- NOTE | 2024-03-13 19:40 | XR ---
EXAMINATION TYPE: XR chest 1V portable DATE OF EXAM: 03/13/2024 7:14 PM CLINICAL INDICATION:Female, 64 years old with history of Tube placement; [facility] COMPARISON: Chest radiographs from 03/13/2024 TECHNIQUE: XR chest 1V portable Frontal view of the chest. FINDINGS: Lungs/Pleura: Blunting of the left costophrenic angle. The lung parenchyma is otherwise unremarkable. There is no evidence of right pleural effusion, focal consolidation, or pneumothorax. Pulmonary vascularity: Unremarkable. Heart/mediastinum: Cardiomediastinal silhouette is unremarkable. Musculoskeletal: No acute osseous pathology. Other findings: None Lines/Tubes: Endotracheal tube with distal tip 3.1 cm above the kendy. IMPRESSION: Endotracheal and nasogastric tubes in appropriate position. Small to moderate left pleural effusion
[2024-03-13] MEDS: SODIUM CHLORIDE 0.9% 1,000 ML IV STA (20:09)
[2024-03-13 20:14] LABS: ABG Base Excess 4.4 mmol/L; ABG HCO3 28 mmol/L (21-25); ABG Oxygen Saturation 101.2 % (94-97); ABG PCO2 37 mmHg (35-45); ABG PH 7.49 (7.35-7.45); ABG PO2 358 mmHg (83-108); ABG TCO2 29 mmol/L (19-24); Allen Test Performed? Yes
[2024-03-13] MEDS ORDERED: PNEUMONIA PROTOCOL UTILIZED 1 EACH MISC PO PRN (20:20)
[2024-03-13] MEDS ORDERED: HEPARIN SODIUM 1,000 UN/ML (10ML VL) IV PRN (20:20)
--- NOTE | 2024-03-13 20:23 | CT ---
EXAMINATION TYPE: CT angio chest CT DLP: 262.9 mGycm, Automated exposure control for dose reduction was used. DATE OF EXAM: 03/13/2024 8:04 PM COMPARISON: 01/29/2024 CLINICAL INDICATION:Female, 64 years old with history of dyspnea; COPD TECHNIQUE/CONTRAST: CTA scan of the thorax is performed with IV Contrast, patient injected with 100 ml mL of Isovue 370, MIP images are created and reviewed these are created on a separate workstation.. FINDINGS: Pulmonary Artery: There is a nonocclusive filling defect within the right upper lung pulmonary arteri al vasculature is lobar/segmental branch series 411 image 54. The pulmonary artery is of normal size. No evidence for right heart strain. Lungs/Pleura: Small left pleural effusion with associated atelectasis with airspace opacities in left lower lobe superimposed on atelectasis. Airway: Large airways are patent. Endotracheal tube terminates above the kendy. Heart: Heart is within normal limits for size. Increased density within the left anterior descending coronary artery possibly representing stent graft versus atherosclerosis. Vasculature: No evidence of aortic aneurysm. Moderate atherosclerosis of the arterial vasculature. Di minutive left vertebral artery. Mediastinum: No gross evidence of adenopathy. Musculoskeletal: No acute osseous abnormalities Soft Tissues/lymph nodes: Unremarkable. Lower neck: No significant findings. Upper Abdomen: Nasogastric tube terminates below the diaphragm in the gastric lumen. IMPRESSION: 1. Nonocclusive right upper lobe pulmonary embolus. No evidence for right heart strain. 2. Small left pleural effusion with atelectasis changes. 3. Airspace opacities in left lower lobe and right upper lobe suspicious for pneumonia. 4. Nasogastric and endotracheal tubes in appropriate position. Findings communicated to Dr. Derrick Mascorro DO on 03/13/2024 8:[address] Nguyễn Quezada.
[2024-03-13] MEDS: HEPARIN SODIUM 1,000 UN/ML (10ML VL) IV ONE (20:49)
[2024-03-13] MEDS: PIPERACILLIN-TAZOBACTAM 3.375 GM in SODIUM CHLORIDE 0.9% 100 ML IVPB STA (20:53)
[2024-03-13] MEDS: SODIUM CHLORIDE 0.9% 500 ML 500 ML IV STA (20:57)
[2024-03-13] MEDS: HEPARIN SOD,PORK IN 0.45% NACL 25,000 UNIT in 0.45% NACL 1 250ML.BAG IV SCH (21:24)
[2024-03-13] MEDS: AZITHROMYCIN 500 MG in SODIUM CHLORIDE 0.9% 250 ML IVPB STA (21:28)
[2024-03-13] MEDS: SODIUM CHLORIDE 0.9% 1,000 ML IV SCH (21:43)
[2024-03-13 22:45] LABS: Glucose,Whole Blood 347 mg/dL (70-110)
[2024-03-13] MEDS: INSULIN ASPART (NovoLOG) 100 UNIT/ML VIAL SQ SCH (23:29)
[2024-03-13] MEDS: CHLORHEXIDINE GLUCONATE 15 ML CUP MUCOUS MEM SCH (23:30)
[2024-03-14] MEDS: methylPREDNISolone SOD SUCCI 40 MG/ML 1 ML VIAL IV SCH (00:54)
[2024-03-14 01:15] LABS: African American GFR (CKD) >90 (>60 ml/min/1.73 sqM); Anion Gap 11 mmol/L; Blood Urea Nitrogen 15 mg/dL (7-17); Calcium 7.9 mg/dL (8.4-10.2); Carbon Dioxide 22 mmol/L (22-30); Chloride 103 mmol/L (98-107); Glucose 317 mg/dL (74-99); Non-African American GFR(CKD) >90 (>60 ml/min/1.73 sqM); Sodium 136 mmol/L (137-145)
[2024-03-14] MEDS: NOREPINEPHRINE 4 MG in SODIUM CHLORIDE 0.9% 250 ML IV SCH (01:20)
--- NOTE | 2024-03-14 01:21 | P.PCN ---
Date of Procedure: 03/14/24 Preoperative Diagnosis: Acute hypoxemic respiratory failure; sepsis Postoperative Diagnosis: Acute hypoxemic respiratory failure; sepsis Procedure(s) Performed: Insertion of the left wrist radial arterial line Indications for Procedure: Continuous blood pressure monitoring and frequent blood draws Description of Procedure: Informed consent was obtained, and a procedural timeout was performed . The pat ient was placed in supine position. The left radial region was prepared in a sterile fashion, and a sterile drape was applied. The left radial artery was palpated, easily cannulated, and a guidewire was placed. A Cook catheter was inserted over the guidewire, and the guidewire was removed. There was good arterial blood flow, good arterial waveform, and no complications. The line was secured with using a 3-0 silk suture.
[2024-03-14 01:54] LABS: Potassium 2.7 mmol/L (3.5-5.1)
[2024-03-14] MEDS: POTASSIUM BICARBONATE/CIT AC 20 MEQ TABLET.EFF NG-TUBE SCH ×4 (02:16→23:28)
[2024-03-14 02:59] LABS: Amorphous Sediment,Urine Rare /hpf; Appearance,Urine Clear (Clear); Bilirubin,Urine Negative (Negative); Blood,Urine Negative (Negative); Budding Yeast,Urine Many /hpf; Color,Urine Colorless; Glucose,Urine (UA) 4+ (Negative); Hyaline Casts,Urine 5 /lpf (0-2); Ketones,Urine 1+ (Negative); Leukocyte Esterase,Urine Small (Negative); Mucus,Urine Rare /hpf; Nitrite,Urine Negative (Negative); PH, Urine 5.5 (5.0-8.0); Protein,Urine Negative (Negative); RBC,Urine 1 /hpf (0-5); Specific Gravity,Urine 1.029 (1.001-1.035); Urobilinogen,Urine <2.0 mg/dL (<2.0); WBC,Urine 15 /hpf (0-5)
[2024-03-14] MEDS: PIPERACILLIN-TAZOBACTAM 3.375 GM in SODIUM CHLORIDE 0.9% 100 ML IVPB SCH (03:18)
[2024-03-14] MEDS: IPRATROPIUM-ALBUTEROL 3 ML NEB INHALATION SCH (04:09)
--- NOTE | 2024-03-14 04:38 | US ---
EXAM: US Chest CLINICAL HISTORY: left pleural effusion TECHNIQUE: Real-time ultrasound of the chest with image documentation. COMPARISON: No relevant prior studies available. FINDINGS: Limited ultrasound survey of the left chest demonstrates a left pleural effusion up to 5.4 cm depth, 2.9 cm from the skin to posterior chest wall. There is adjacent lung tissue present. A marker was placed for possible thoracentesis outside the department. IMPRESSION: Left pleural fluid demonstrated with skin marker placed by the maintenance technician 3rd shift.
[2024-03-14 05:08] LABS: ABG Base Excess 5.4 mmol/L; ABG HCO3 29 mmol/L (21-25); ABG Oxygen Saturation 98.6 % (94-97); ABG PCO2 37 mmHg (35-45); ABG PO2 90 mmHg (83-108); ABG TCO2 30 mmol/L (19-24); Allen Test Performed? Yes
[2024-03-14 05:22] LABS: Glucose,Whole Blood 321 mg/dL (70-110)
[2024-03-14 05:31] LABS: Basophils % (A) 0 %; Eosinophils % (A) 0 %; HCT 35.5 % (34.0-46.0); HGB 11.3 gm/dL (11.4-16.0); Lymphocytes # (A) 0.4 k/uL (1.0-4.8); Lymphocytes % (A) 2 %; MCH 32.2 pg (25.0-35.0); MCHC 31.9 g/dL (31.0-37.0); MCV 101.1 fL (80.0-100.0); Macrocytosis Slight; Mean Platelet Volume 8.1; Monocytes # (A) 0.5 k/uL (0-1.0); Monocytes % (A) 2 %; Neutrophils # (A) 20.1 k/uL (1.3-7.7); Neutrophils % (A) 95 %; Platelet Count 475 k/uL (150-450); Poikilocytosis Slight; RBC 3.51 m/uL (3.80-5.40); RDW 15.1 % (11.5-15.5)
--- NOTE | 2024-03-14 05:44 | P.CNPUL ---
History of Present Illness Consult date: 03/14/24 Requesting physician: Derrick Mascorro Reason for consult: pneumonia, other (Acute hypoxemic respiratory failure, ICU and ventilator management) Chief complaint: Respiratory distress History of present illness: Patient is a 64-year-old white female with past medical history significant for COPD, diabetes mellitus, hyperlipidemia, hypertension, current everyday smoker. Of note, she was recently hospitalized January 29 through February, for suspected aspiration pneumonia and exacerbation of the patient's known COPD. She was reportedly discharged to a local F on courses of Augmentin and Diflucan. She did have systemic candidemia this admission. It is my impression, the patient's functional status has been gradually declining. She has been fairly sedentary. She has a decubitus pressure ulcer as well as multiple lower extremity wounds. She also has a issue with urinary retention and a chronic indwelling urinary catheter. Patient returned to the emergency department yesterday afternoon reportedly with severe difficulty in breathing. She was initially trialed on BiPAP and then intubated in the emergency department. She is unable to provide any information at this time, and no family members are present. Chest CTA performed during her previous hospitalization was negative for any acute pulmonary emboli. There were small bilateral pleural effusions with adjacent atelectasis were demonstrated. A chest CTA was repeated in the emergency department this admission, demonstrating a nonocclusive right upper lobe pulmonary embolus. No evidence of right-sided heart strain. There is small left pleural effusion, with increasing airspace opacity in the left lower lobe and right upper lobe suspicious for pneumonia. No reported witnessed aspiration events. Postintubation chest x-ray shows the endotracheal tube 3.1 cm from the kendy. Nasogastric tube courses within the gastric fundus. Most recent ABGs have a PaO2 of 358, pCO2 of 37, pH of 7.49. This was done on ventilator se ttings including assist-control, respiratory rate 16, tidal volume 300, FiO2 100%, and PEEP of 5. FiO2 was previously dropped to 50%. Peak pressures are 16. She is breathing slightly above set rate. Sedated on propofol which is infusing at 30 mcg/kg/min. Normal saline also infusing at 130 MLS per hour. Blood pressure has remained hypotensive despite 2.5 L normal saline bolus. She has been started on low-dose norepinephrine which is infusing at 0.03 mcg/kg/min. Previously tachycardic, and this is improved. She has also since been started on the high intensity heparin protocol. Most recent APTT was subtherapeutic, and drip was a appropriately adjusted. Baseline CBC has a WBC count of 29.1, hemoglobin 14, hematocrit 42.9, platelets 591. Most recent CMP includes a sodium 136, potassium 2.7, chloride 103, serum bicarb 22, BUN 15, creatinine 0.27, glucose 317. Lactic acid was 4.9 and is down to 3.4. AST 29, ALT 31, ALP 327. Total bili 0.6. Troponin 0.021. NT proBNP 846. EKG done on arrival shows sinus tachycardia with a rate of 121 bpm and T wave inversion in leads II, III and aVF. Negative for influenza, RSV, COVID. Patient empirically covered on a combination of antibiotics including azithromycin and Zosyn. Afebrile. Prognosis is guarded. Review of Systems ROS unobtainable: due to endotracheal tube Past Medical History Past Medical History: COPD, Diabetes Mellitus, Hyperlipidemia, Hypertension History of Any Multi-Drug Resistant Organisms: None Reported Past Surgical History: Adenoidectomy, Hysterectomy, Tubal Ligation Additional Past Surgical History / Comment(s): 2 tumors removals Past Psychological History: Depression Smoking Status: Current every day smoker Past Alcohol Use History: None Reported Past Drug Use History: None Reported Medications and Allergies Home Medications Medication Instructions Recorded Confirmed Type Budesonide/Formoterol Fumarate 2 puff INHALATION RT-BID 01/29/24 03/13/24 History [Symbicort 160-4.5 Mcg Inhaler] Escitalopram [Lexapro] 10 mg PO DAILY 01/29/24 03/13/24 History Insulin Glargine,Hum.rec.anlog 15 units SQ HS 01/29/24 03/13/24 History [Lantus Solostar Pen] Insulin Lispro [Insulin Lispro 5 units SQ TID-W/MEALS 01/29/24 03/13/24 History Kwikpen U-100] Lactobacillus Rhamnosus GG 1 cap PO BID 01/29/24 03/13/24 History [Culturelle] Melatonin 3 mg PO HS PRN 01/29/24 03/13/24 History Montelukast [Singulair] 10 mg PO HS 01/29/24 03/13/24 History Nicotine 14Mg/24Hr Patch [Habitrol] 1 patch TRANSDERM DAILY 01/29/24 03/13/24 History Pioglitazone HCl 15 mg PO DAILY 01/29/24 03/13/24 History amLODIPine [Norvasc] 5 mg PO BID 01/29/24 03/13/24 History guaiFENesin [guaiFENesin ER] 600 mg PO BID 01/29/24 03/13/24 History Budesonide [Pulmicort] 1 mg INHALATION RT-BID ml 02/05/24 03/13/24 Rx Formoterol Fumarate [Perforomist] 20 mcg INHALATION RT-BID ml 02/05/24 03/13/24 Rx Ipratropium-Albuterol Nebulize 3 ml INHALATION RT-QID each 02/05/24 03/13/24 Rx [Duoneb 0.5 mg-3 mg/3 ml Soln] Pantoprazole [Protonix] 40 mg PO AC-BID tab 02/05/24 03/13/24 Rx Voriconazole [Vfend] 200 mg PO Q12HR tab 02/05/24 03/13/24 Rx Acetaminophen Tab [Tylenol] 650 mg PO Q4HR PRN tab 02/26/24 03/13/24 Rx Lactulose [Cephulac] 20 gm PO TID 30 Days #90 ml 02/26/24 03/13/24 Rx Furosemide [Lasix] 40 mg PO BID 03/13/24 03/13/24 History Allergies Allergy/AdvReac Type Severity Reaction Status Date / Time No Known Allergies Allergy Verified 03/13/24 17:23 Physical Exam Vitals: Vital Signs Temp Pulse Resp BP Pulse Ox FiO2 03/14/24 01:20 81 25 H 90/65 96 03/14/24 01:10 82 27 H 78/51 97 03/14/24 01:00 80 25 H 85/55 96 03/14/24 00:50 81 27 H 85/55 94 L 03/14/24 00:40 83 28 H 93/58 96 03/14/24 00:30 81 23 108/67 98 03/14/24 00:20 81 23 108/67 99 03/14/24 00:17 81 25 H 108/67 99 03/14/24 00:10 84 24 108/67 99 03/14/24 00:03 50 03/14/24 00:00 98.3 F 86 27 H 98/59 100 50 03/13/24 23:50 88 28 H 98/59 99 03/13/24 23:40 89 23 85/57 100 03/13/24 23:30 89 23 79/51 99 03/13/24 23:20 90 25 H 79/51 98 03/13/24 23:10 89 22 80/54 98 03/13/24 23:00 89 24 81/56 97 03/13/24 22:50 93 29 H 81/56 98 03/13/24 22:40 27 H 102/64 99 03/13/24 22:30 98.3 F 96 16 102/64 100 50 03/13/24 22:28 16 03/13/24 21:35 98 16 97/62 95 03/13/24 20:25 50 03/13/24 19:09 112 H 20 112/99 100 03/13/24 19:03 123 H 20 112/99 100 03/13/24 19:01 100 03/13/24 18:47 122 H 38 H 115/79 98 03/13/24 18:35 100 03/13/24 18:32 125 H 36 H 112/90 97 03/13/24 17:45 129 H 42 H 108/82 98 03/13/24 16:55 126 H 36 H 99/79 97 03/13/24 16:30 124 H 40 H 95/69 96 50 03/13/24 16:17 126 H 26 H 120/76 100 03/13/24 15:57 40 H 03/13/24 15:50 97.1 F L 121 H 42 H 121/86 97 Intake and Output 03/13/24 03/13/24 03/14/24 14:59 22:59 06:59 Intake Total 130 390 Output Total 300 160 Balance -170 230 Intake: IV 130 390 Sodium Chloride 0.9% 1, 130 390 000 ml @ 130 mls/hr IV . Q7H42M [facility] Rx#:[id number] Output: Urine 300 160 Other: Voiding Method Indwelling Catheter Weight 47.627 kg 47.627 kg ABP, PAP, CO, CI - Last 8 Hours Arterial Blood Pressure 80/46 GENERAL EXAM: Sedated 64-year-old white female, cachectic appearance, generalized edema, intubated to the mechanical ventilator. HEAD: Normocephalic and atraumatic EYES: Normal reaction of pupils, equal size. NOSE: Clear with pink turbinates. THROAT: No erythema or exudates. NECK: No masses, no JVD. CHEST: No chest wall deformity. LUNGS: Equal air entry with scattered rhonchi bilaterally. Intubated to the mechanical ventilator. Breathing slightly above set rate. No significant secretions. Peak pressures 16. CVS: S1 and S2 normal with harsh grade 4 systolic murmur with precordial thrill, regular rhythm. No other extra heart sounds ABDOMEN: No hepatosplenomegaly, active bowel sounds, no guarding or rigidity. SPINE: No scoliosis or deformity SKIN: Decubitus unstageable pressure injury. Bilateral lower extremity wounds. CENTRAL NERVOUS SYSTEM: Sedated, not following any commands, withdraws to pain in all 4 extremities. EXTREMITIES: Gross anasarca and weeping. no clubbing, or cyanosis. Peripheral pulses are intact. Results - Laboratory Findings CBC and BMP: 03/14/24 05:24 03/13/24 23:30 ABG ABG pH 7.49 (7.35-7.45) H 03/13/24 20:07 ABG pCO2 37 mmHg (35-45) 03/13/24 20:07 ABG pO2 358 mmHg (83-108) H 03/13/24 20:07 ABG O2 Saturation 101.2 % (94-97) H 03/13/24 20:07 PT/INR, D-dimer PT 9.9 sec (10.0-12.5) L 03/13/24 16:23 INR 0.9 (<1.2) 03/13/24 16:23 Abnormal lab findings: Abnormal Labs 03/13/24 03/13/24 03/13/24 16:23 16:23 17:15 WBC 29.1 H MCV 101.1 H Plt Count 591 H Neutrophils # 26.9 H Lymphocytes # 0.9 L Monocytes # 1.1 H PT 9.9 L ABG pH ABG pO2 ABG HCO3 ABG Total CO2 ABG O2 Saturation Sodium 136 L Potassium 2.6 L* Chloride 97 L Creatinine 0.27 L Glucose 292 H POC Glucose (mg/dL) Plasma Lactic Acid Isaac Calcium Alkaline Phosphatase 327 H Total Protein 5.7 L Albumin 3.3 L 0603/13/24 03/13/24 17:52 20:07 20:32 WBC MCV Plt Count Neutrophils # Lymphocytes # Monocytes # PT ABG pH 7.49 H ABG pO2 358 H ABG HCO3 28 H ABG Total CO2 29 H ABG O2 Saturation 101.2 H Sodium Potassium Chloride Creatinine Glucose POC Glucose (mg/dL) Plasma Lactic Acid Isaac 4.9 H* 3.4 H* Calcium Alkaline Phosphatase Total Protein Albumin 03/13/24 03/13/24 22:43 23:30 WBC MCV Plt Count Neutrophils # Lymphocytes # Monocytes # PT ABG pH ABG pO2 ABG HCO3 ABG Total CO2 ABG O2 Saturation Sodium 136 L Potassium 2.7 L* Chloride Creatinine 0.27 L Glucose 317 H POC Glucose (mg/dL) 347 H Plasma Lactic Acid Isaac Calcium 7.9 L Alkaline Phosphatase Total Protein Albumin - Diagnostic Findings Chest x-ray: image reviewed CT scan - chest: image reviewed Assessment and Plan Assessment: Acute hypoxemic respiratory failure, currently intubated to the mechanical ventilator, likely secondary to combination of factors, including suspected multifocal pneumonia, possible aspiration pneumonia, and new nonocclusive right upper lobe pulmonary embolus. Chest CTA demonstrates a new right upper lobe nonocclusive pulmonary embolus. No CT evidence of right-sided heart strain. Previous right-sided pleural effusion with adjacent atelectasis or infiltrate has improved. There is a new right upper lobe consolidation, as well as, worsening consolidation of previous demonstrated left lower lobe opacity and adjacent pleural effusion. Acute exacerbation of COPD, secondary to above Refractory hypotension to fluid resuscitation and shock, suspect sepsis and septic shock, currently on low-dose norepinephrine Acute leukocytosis Severe hypokalemia, being replaced Cardiac murmur, previous echocardiogram performed 01/31/2024 estimated preserved left ventricular ejection fraction of 60 to 65%. No significant valvular abnormalities noted, besides trace mitral regurgitation. Lactic acidemia, improved History of systemic candidemia, completed course of Diflucan Chronic urinary retention with indwelling urinary catheter History of constipation and fecaloma status post decompressive sigmoidoscopy on 02/14/2024 History of diabetes mellitus type 2 History of hypertension History of hyperlipidemia History of recent unexplained weight loss Severe protein calorie malnutrition Decubitus pressure ulcer Plan: Patient's medications, labs, imaging were reviewed Patient continues on the mechanical ventilator with previous mention ventilator settings. Ventilator order set has been added. Continue propofol for sedation and titrate for ordered RASS with daily interruptions of sedation. Repeat ABGs and chest x-ray in the morning. Most recent chest x-ray shows the endotracheal tube in satisfactory position. Continue combination of DuoNebs devmvj-yfo-nnbzy, budesonide inhalation, formoterol inhalation, and IV Solu-Medrol Continue norepinephrine infusion for blood pressure support, and titrate for MAP of 65 mmHg or greater Continue high intensity heparin protocol Continue empiric antibiotics in the form of azithromycin and Zosyn Blood cultures are pending. Sputum culture pending. Procalcitonin level pending. Consult wound care Consult dietary for tube feeding recommendations Replace electrolytes per protocol. Protonix for GI prophylaxis. Overall prognosis is guarded. Will continue to follow, and additional recommendations are forthcoming. I have personally seen and examined the patient, performed the documentation and the assessment and plan as written. Number of minutes spent on the visit:20 Time with Patient: Greater than 30
[2024-03-14 06:17] LABS: African American GFR (CKD) >90 (>60 ml/min/1.73 sqM); Anion Gap 7 mmol/L; Blood Urea Nitrogen 16 mg/dL (7-17); Calcium 7.5 mg/dL (8.4-10.2); Carbon Dioxide 25 mmol/L (22-30); Chloride 105 mmol/L (98-107); Glucose 291 mg/dL (74-99); Non-African American GFR(CKD) >90 (>60 ml/min/1.73 sqM); Potassium 3.4 mmol/L (3.5-5.1); Sodium 137 mmol/L (137-145)
[2024-03-14] MEDS: FUROSEMIDE 10 MG/ML 4 ML VIAL IV STA (06:27)
[2024-03-14] MEDS ORDERED: IPRATROPIUM-ALBUTEROL 3 ML NEB INHALATION SCH (08:00)
--- NOTE | 2024-03-14 08:16 | US ---
EXAMINATION TYPE: US venous doppler duplex LE BI DATE OF EXAM: 03/14/2024 12:40 AM COMPARISON: NONE CLINICAL INDICATION: Female, 64 years old with history of rule out DVT; rule out DVT. ICU patient, pa tient on vent. SIDE PERFORMED: Bilateral TECHNIQUE: The lower extremity deep venous system is examined utilizing real time linear array sonog will with graded compression, doppler sonography and color-flow sonography. VESSELS IMAGED: Common Femoral Vein Deep Femoral Vein Greater Saphenous Vein * Femoral Vein Popliteal Vein Small Saphenous Vein * Proximal Calf Veins (* superficial vessels) Right Leg: Negative for DVT Left Leg: Negative for DVT IMPRESSION: Grayscale, color doppler, spectral doppler imaging performed of the deep veins of the lo wer extremities. There is normal flow, compressibility, vascular waveforms.
--- NOTE | 2024-03-14 08:44 | XR ---
EXAMINATION TYPE: XR chest 1V portable DATE OF EXAM: 03/14/2024 5:40 AM CLINICAL INDICATION:Female, 64 years old with history of Tube placement; [facility] COMPARISON: Chest radiograph from one day prior. TECHNIQUE: XR chest 1V portable Frontal view of the chest. FINDINGS: Lungs/Pleura: Hazy opacities in left lung base. There is no evidence of pleural effusion, focal conso lidation, or pneumothorax. Pulmonary vascularity: Unremarkable. Heart/mediastinum: Cardiomediastinal silhouette is unremarkable. Musculoskeletal: No acute osseous pathology. Other findings: None Lines/Tubes: Endotracheal tube with distal tip 5.0 cm above the kendy. Nasogastric tube with its distal tip and side-port projecting under the diaphragm. IMPRESSION: Left lower lung hazy airspace opacities. Endotracheal tube and nasogastric tube in appropriate position.
[2024-03-14] MEDS ORDERED: AZITHROMYCIN 500 MG in SODIUM CHLORIDE 0.9% 250 ML IVPB SCH (09:00)
[2024-03-14] MEDS: BUDESONIDE 1 MG/2 ML NEBU INHALATION SCH (09:09)
[2024-03-14] MEDS: FORMOTEROL FUMARATE 20 MCG/2 ML NEBU INHALATION SCH (09:09)
[2024-03-14] MEDS: PANTOPRAZOLE 40 MG/10 ML VIAL IVP SCH (09:11)
[2024-03-14] MEDS: CISATRACURIUM 2 MG/ML 5 ML VIAL IV ONE (10:15)
--- NOTE | 2024-03-14 11:43 | XR ---
EXAMINATION TYPE: XR chest 1V portable DATE OF EXAM: 03/14/2024 11:35 AM CLINICAL INDICATION:Female, 64 years old with history of r/o pneumothorax; [facility] COMPARISON: Chest radiographs from TECHNIQUE: XR chest 1V portable Frontal view of the chest. FINDINGS: Lungs/Pleura: Hazy opacities in left lung base. There is no evidence of pleural effusion, focal conso lidation, or pneumothorax. Pulmonary vascularity: Unremarkable. Heart/mediastinum: Cardiomediastinal silhouette is unremarkable. Musculoskeletal: No acute osseous pathology. Other findings: None Lines/Tubes: Endotracheal tube with distal tip 3.7 cm above the kendy. Nasogastric tube with its distal tip and side-port projecting under the diaphragm. IMPRESSION: 1. No evidence for pneumothorax. 2. Left lower lung hazy airspace opacities. 3. Endotracheal tube and nasogastric tube in appropriate position.
[2024-03-14 12:42] LABS: Glucose,Whole Blood 314 mg/dL (70-110)
[2024-03-14] MEDS: HYDROmorphone 1 MG/ML 1 ML SYRINGE IVP PRN (12:54)
--- NOTE | 2024-03-14 13:01 | CA ---
Transthoracic Echo Report Name: Sha Lucio Age: 64 Gender: F : 1960 Exam Date: 03/14/2024 08:30 Exam Location: [facility] Ht (in): 68 Wt (lb): 108 Ordering Physician: Domo Ruiz Attending/Referring Phys: [employer] Lashonda Osborn RDCS Procedure CPT: Indications: questionable new heart murmur Cardiac Hx: Technical Quality: Good Contrast 1: Total Dose (mL): Contrast 2: Total Dose (mL): MEASUREMENTS (Male / Female) Normal Values 2D ECHO LV Diastolic Diameter PLAX 2.7 cm 4.2 - 5.9 / 3.9 - 5.3 cm LV Systolic Diameter PLAX 1.4 cm IVS Diastolic Thickness 1.3 cm 0.6 - 1.0 / 0.6 - 0.9 cm LVPW Diastolic Thickness 1.3 cm 0.6 - 1.0 / 0.6 - 0.9 cm LV Relative Wall Thickness 1.0 LVOT Diameter 2.1 cm DOPPLER TR Peak Velocity 258.9 cm/s TR Peak Gradient 26.8 mmHg Right Atrial Pressure 20.0 mmHg Pulmonary Artery Systolic Pressu 46.8 mmHg Right Ventricular Systolic Press 46.8 mmHg FINDINGS Left Ventricle Left ventricular ejection fraction is estimated at 70-75 %. Mildly increased septal wall thickness. Moderately increased posterior wall thickness. Hyperdynamic left ventricular systolic function. No obvious regional wall motion abnormalities. Right Ventricle Normal right ventricular size and function. Mild to moderate right ventricular systolic pressure. Right Atrium Normal right atrial size. Left Atrium Normal left atrial size. Mitral Valve Mitral valve thickened. No evidence for mitral valve prolapse. No mitral stenosis. Rvwb-zj-gyvkmspl mitral regurgitation. Aortic Valve Trileaflet aortic valve. Aortic valve sclerosis. No aortic stenosis. No aortic regurgitation. Tricuspid Valve Structurally normal tricuspid valve. No tricuspid stenosis. [id number]-iz-[id number] tricuspid regurgitation. Pulmonic Valve Pulmonic valve not well visualized. Pericardium Small anterior pericardial effusion. Clot located in pericardial effusion, clips 70-80. Left pleural effusion. Aorta Aortic root and proximal ascending aorta not well visualized. CONCLUSIONS Normal LV systolic function pericardial effusion Large left pleural effusion Mild to moderate mitral regurgitation Mild to moderate tricuspid regurgitation Small pericardial effusion Previewed by: Dr. Dayday Delaney MD (Electronically Signed) Final Date: 14 March 2024 13:00
[2024-03-14 13:21] LABS: Magnesium 1.5 mg/dL (1.6-2.3); Potassium 3.4 mmol/L (3.5-5.1)
--- NOTE | 2024-03-14 13:21 | OP ---
OPERATIVE REPORT DATE OF SERVICE : PROCEDURE PERFORMED: Placement of right femoral triple-lumen catheter. PREOPERATIVE DIAGNOSES: Acute hypoxic respiratory failure and pneumonia. POSTOPERATIVE DIAGNOSIS: Acute hypoxic respiratory failure and pneumonia. ANESTHESIA USED: 2 mL of 1% lidocaine. DESCRIPTION OF PROCEDURE: The patient was placed in a supine position, the area of the right groin was prepared in a sterile fashion. Drapes were applied, the area was locally anesthetized with lidocaine. Then, the right femoral vein was easily cannulated, a guidewire was placed, a triple-lumen catheter was inserted over the guidewire, and the guidewire was removed. Good blood flow noted in the 3 different ports of the triple-lumen catheter, procedure was well tolerated. No complications. MMODL / IJN: [id number] /
--- NOTE | 2024-03-14 13:27 | OP ---
OPERATIVE REPORT DATE OF SERVICE : PROCEDURES PERFORMED: Bronchoscopy and bronchoalveolar lavage of left lower lobe and right upper lobe. PREOPERATIVE DIAGNOSIS: Acute hypoxic respiratory failure and multilobar pneumonia. POSTOPERATIVE DIAGNOSIS: Acute hypoxic respiratory failure and multilobar pneumonia. ANESTHESIA USED: The patient was already intubated and mechanically ventilated. She was receiving propofol drip and prior to the procedure, she was given Nimbex 10 mg IV push. DESCRIPTION OF PROCEDURE: The patient was placed in a supine position, she was already intubated and mechanically ventilated. An adapter was applied to the endotracheal tube and connected to mechanical ventilation. We monitored her O2 saturation continuously, blood pressure was continuously monitored via arterial line, and cardiac rhythm was continuously monitored. After receiving Nimbex, a disposable bronchoscope was used and it was advanced down through the adapter to the distal end of the endotracheal tube. Thorough examination was done of the kendy, right upper lobe, right middle lobe, right lower lobe, left upper lobe, lingula, and left lower lobe. There was evidence of thick purulent secretions noted in the left lower lobe and to some extent in the right upper lobe. Bronchoalveolar lavage was done. It was sort of a random bronchoalveolar lavage, but mostly from the right upper lobe and from the left lower lobe. Fluid obtained was slightly purulent, thick, tenacious, this was sent for different diagnostic studies. The procedure was well tolerated. MMODL / IJN: [id number] /
[2024-03-14] MEDS ORDERED: Potassium Replacement Protocol 1 EACH MISC MISCELLANE PRN (15:31)
[2024-03-14] MEDS ORDERED: Magnesium Replacement Protocol 1 EACH MISC MISCELLANE PRN (15:31)
[2024-03-14] MEDS: MAGNESIUM SULFATE-D5W PMX 1 GM in DEXTROSE/WATER 1 100ML.BAG IVPB SCH (16:10)
[2024-03-14 17:51] LABS: Glucose,Whole Blood 337 mg/dL (70-110)
[2024-03-14] MEDS: POTASSIUM CHLORIDE 20 MEQ in WATER FOR INJECTION 1 100ML.BAG IVPB ONE (17:52)
[2024-03-14] MEDS: SODIUM CHLORIDE 0.9% 1,000 ML IV ONE (19:02)
[2024-03-14 21:28] LABS: Appearance,BF Cloudy (Clear); RBC, Body Fluid 65 /UL (0-2000)
[2024-03-14 22:32] LABS: Potassium 3.8 mmol/L (3.5-5.1)
[2024-03-14 23:22] LABS: Glucose,Whole Blood 251 mg/dL (70-110)
--- NOTE | 2024-03-15 00:58 | HP ---
HISTORY AND PHYSICAL HISTORY OF PRESENT ILLNESS: This 64-year-old white female came in for acute on chronic respiratory distress, cough, congestion, shortness of breath. became more severe, history of COPD, CHF. She is still on a ventilator with respiratory failure, COPD, pneumonia. Prognosis guarded. HOME MEDICATIONS: 1. Insulin QuickPen. 2. Lantus SoloStar. 3. Symbicort 160/4.5 one puff b.i.d. 4. Lexapro 10 mg daily. 5. Melatonin 3 daily. 6. Singulair 10 daily. 7. Nicotine patch 14 mg daily. 8. mg daily. 9. Norvasc 5 mg b.i.d. 10.Lasix 40 mg b.i.d. 11.Guaifenesin 600 b.i.d. REVIEW OF SYSTEMS: A 14-point review of systems otherwise negative. SOCIAL HISTORY: Current everyday smoker. No alcohol. No drugs. PHYSICAL EXAMINATION: VITAL SIGNS: Temp 97.1, pulse 121 to 126, and respiratory rate 20 to 25. CARDIOVASCULAR: S1, S2. LUNGS: Scattered wheeze and rhonchi. HEMATOLOGY: Negative for Homans. PSYCH: Fair mood and affect. NEUROLOGIC: Alert and oriented x3. She has mild tremor. OPHTHALMOLOGIC: Pupils round and reactive. EKG, sinus rhythm. White count 29,000, [address] Pathak for Infectious Disease. Negative troponin. She has severe COPD, hypokalemia, hyponatremia, most likely dehydrated significantly with elevated lactic acidosis 4.9. The patient is intubated, placed on vent negative. Prognosis guarded. Pleural effusion was to be tried tap, possible bronchoscopy, acute respiratory failure, pneumonia, sepsis, pulmonary embolism. Continue current treatment. Prognosis guarded. Please see further orders. MMODL / IJN: [id number] /
[2024-03-15] MEDS: LORazepam 2 MG/ML INJ IV PRN (03:45)
[2024-03-15 04:32] LABS: Basophils % (A) 0 %; Eosinophils % (A) 0 %; HCT 32.3 % (34.0-46.0); HGB 10.1 gm/dL (11.4-16.0); Hypochromasia Slight; Lymphocytes # (A) 0.4 k/uL (1.0-4.8); Lymphocytes % (A) 2 %; MCH 32.1 pg (25.0-35.0); MCHC 31.3 g/dL (31.0-37.0); MCV 102.6 fL (80.0-100.0); Macrocytosis Slight; Monocytes # (A) 0.5 k/uL (0-1.0); Monocytes % (A) 2 %; Neutrophils # (A) 20.8 k/uL (1.3-7.7); Neutrophils % (A) 95 %; Platelet Count 427 k/uL (150-450); Poikilocytosis Slight; RBC 3.15 m/uL (3.80-5.40); WBC 21.8 k/uL (3.8-10.6)
[2024-03-15 05:04] LABS: ALT 10 U/L (4-34); AST 15 U/L (14-36); African American GFR (CKD) >90 (>60 ml/min/1.73 sqM); Albumin 2.2 g/dL (3.5-5.0); Alkaline Phosphatase 208 U/L (38-126); Anion Gap 1 mmol/L; Blood Urea Nitrogen 19 mg/dL (7-17); Calcium 7.7 mg/dL (8.4-10.2); Carbon Dioxide 28 mmol/L (22-30); Chloride 108 mmol/L (98-107); Glucose 213 mg/dL (74-99); Non-African American GFR(CKD) >90 (>60 ml/min/1.73 sqM); Potassium 3.7 mmol/L (3.5-5.1); Sodium 137 mmol/L (137-145); Total Bilirubin 0.3 mg/dL (0.2-1.3); Total Protein 4.2 g/dL (6.3-8.2)
[2024-03-15 05:17] LABS: ABG Base Excess 6.2 mmol/L; ABG HCO3 31 mmol/L (21-25); ABG Oxygen Saturation 100.2 % (94-97); ABG PCO2 42 mmHg (35-45); ABG PH 7.47 (7.35-7.45); ABG PO2 134 mmHg (83-108); ABG TCO2 32 mmol/L (19-24); Allen Test Performed? Yes
[2024-03-15] MEDS: POTASSIUM CHLORIDE 10 MEQ in WATER FOR INJECTION 1 100ML.BAG IVPB SCH (06:03)
[2024-03-15 06:29] LABS: Glucose,Whole Blood 220 mg/dL (70-110)
--- NOTE | 2024-03-15 08:40 | XR ---
EXAMINATION TYPE: XR chest 1V portable DATE OF EXAM: 03/15/2024 5:44 AM CLINICAL INDICATION:Female, 64 years old with history of Tube placement; [facility] COMPARISON: One day prior. TECHNIQUE: XR chest 1V portable Frontal view of the chest. FINDINGS: Lungs/Pleura: Hazy opacities in left lung base. There is no evidence of pleural effusion, focal conso lidation, or pneumothorax. Pulmonary vascularity: Unremarkable. Heart/mediastinum: Cardiomediastinal silhouette is unremarkable. Musculoskeletal: No acute osseous pathology. Other findings: None Lines/Tubes: Endotracheal tube with distal tip 4.0 cm above the kendy. Nasogastric tube with its distal tip and side-port projecting under the diaphragm. IMPRESSION: 1. No evidence for pneumothorax. 2. Similar Left lower lung hazy airspace opacities. 3. Endotracheal tube and nasogastric tube in appropriate position.
[2024-03-15] MEDS: FUROSEMIDE 10 MG/ML 4 ML VIAL IV STA (08:42)
[2024-03-15 09:14] LABS: Nucleated Cells, Body Fluid 1670 /UL
--- NOTE | 2024-03-15 10:25 | P.PN ---
Subjective Progress Note Date: 03/15/24 Principal diagnosis: Acute hypoxic respiratory failure secondary to multifocal pneumonia and sepsis with septic shock Patient is a 64-year-old white female with past medical history significant for COPD, diabetes mellitus, hyperlipidemia, hypertension, current everyday smoker. Of note, she was recently hospitalized January 29 through February, for suspected aspiration pneumonia and exacerbation of the patient's known COPD. She was reportedly discharged to a local ECF on courses of Augmentin and Diflucan. She did have systemic candidemia this admission. It is my impression, the patient's functional status has been gradually declining. She has been fairly sedentary. She has a decubitus pressure ulcer as well as multiple lower extremity wounds. She also has a issue with urinary retention and a chronic indwelling urinary catheter. Patient returned to the emergency department yesterday afternoon reportedly with severe difficulty in breathing. She was initially trialed on BiPAP and then intubated in the emergency department. She is unable to provide any information at this time, and no family members are present. Chest CTA performed during her previous hospitalization was negative for any acute pulmonary emboli. There were small bilateral pleural effusions with adjacent atelectasis were demonstrated. A chest CTA was repeated in the emergency department this admission, demonstrating a nonocclusive right upper lobe pulmonary embolus. No evidence of right-sided heart strain. There is small left pleural effusion, with increasing airspace opacity in the left lower lobe and right upper lobe suspicious for pneumonia. No reported witnessed aspiration events. Postintubation chest x-ray shows the endotracheal tube 3.1 cm from the kendy. Nasogastric tube courses within the gastric fundus. Most recent ABGs have a PaO2 of 358, pCO2 of 37, pH of 7.49. This was done on ventilator settings including assist-control, respiratory rate 16, tidal volume 300, FiO2 100%, and PEEP of 5. FiO2 was previously dropped to 50%. Peak pressures are 16. She is breathing slightly above set rate. Sedated on propofol which is infusing at 30 mcg/kg/min. Normal saline also infusing at 130 MLS per hour. Blood pressure has remained hypotensive despite 2.5 L normal saline bolus. She has been started on low-dose norepinephrine which is infusing at 0.03 mcg/kg/min . Previously tachycardic, and this is improved. She has also since been started on the high intensity heparin protocol. Most recent APTT was subtherapeutic, and drip was a appropriately adjusted. Baseline CBC has a WBC count of 29.1, hemoglobin 14, hematocrit 42.9, platelets 591. Most recent CMP includes a sodium 136, potassium 2.7, chloride 103, serum bicarb 22, BUN 15, creatinine 0.27, glucose 317. Lactic acid was 4.9 and is down to 3.4. AST 29, ALT 31, ALP 327. Total bili 0.6. Troponin 0.021. NT proBNP 846. EKG done on arrival shows sinus tachycardia with a rate of 121 bpm and T wave inversion in leads II, III and aVF. Negative for influenza, RSV, COVID. Patient empirically covered on a combination of antibiotics including azithromycin and Zosyn. Afebrile. Prognosis is guarded. Patient was evaluated on 03/15/2024, patient is in the ICU, intubated and mechanically ventilated. Patient is on assist-control rate of 16 tidal volume 300 FiO2 45% and PEEP of 5 ABG showed a pO2 of 134 pCO2 42 pH of 7.47 hence FiO2 was cut down to 35%. Patient remains hemodynamically unstable requiring norepinephrine at 0.02 mcg/kg/min. IV fluid is at 130 cc/h however this will be cut down to KVO, and the patient will receive Lasix as she has received significant amount of fluids over the last 24 hours. Urine output is marginal 10 to 20 cc an hour. Lasix will be given. Remains on propofol at 30 mcg/kg/min she is also on heparin drip, and receiving vital AF at 10 cc/h. Patient is at least 4.6 L fluid balance positive. And she remains on Zosyn. Cultures from the BAL are pending but it seems to be gram-negative bacilli mostly. Patient is on Zosyn. Blood cultures are pending, negative so far. Patient is receiving trickle enteral feeding mostly because of increased residual. WBC count today is 21.8 hemoglobin 10.1. Platelets are 427 basic metabolic profile is normal re nal profile is normal Objective - Vital Signs Vital signs: Vital Signs Temp 97.8 F 03/15/24 08:00 Pulse 89 03/15/24 09:46 Resp 18 03/15/24 09:46 BP 106/75 03/15/24 07:00 Pulse Ox 100 03/15/24 09:30 FiO2 30 06/19/24 09:46 Intake & Output 03/14/24 03/15/24 03/15/24 18:59 06:59 18:59 Intake Total 2351.223 2971.472 383.789 Output Total 540 175 45 Balance 4435.515 7835.472 338.789 Weight 51.7 kg 61.4 kg Intake: IV 1980 2590 150 Invasive Line 4 20 30 Magnesium Sulfate-D5w Pmx 200 1 gm In Dextrose/Water 1 100ml.bag @ 100 mls/hr IVPB Q1H [facility] Rx#: [id number] Piperacillin-Tazobactam 3 100 .375 gm In Sodium Chloride 0.9% 100 ml @ 25 mls/hr IVPB Q8H KARINA Rx#: [id number] Potassium Chloride 20 meq 100 In Water For Injection 1 100ml.bag @ 50 mls/hr IVPB ONCE STA Rx#: [id number] Sodium Chloride 0.9% 1, 1560 1560 150 000 ml @ 10 mls/hr IV . Q24H KARINA Rx#:[id number] Sodium Chloride 0.9% 1, 1000 000 ml @ 999 mls/hr IV . Q1H1M STA Rx#:[id number] Intake, IV Titration 191.223 161.472 173.789 Amount Heparin Sod,Pork in 0.45% 42.926 161.208 NaCl 25,000 unit In 0.45 % NaCl 1 250ml.bag @ 18 UNITS/KG/HR 8.573 mls/hr IV .Q24H KARINA Rx#: [id number] Norepinephrine 4 mg In 3.509 74.126 12.581 Sodium Chloride 0.9% 250 ml @ 0.03 MCG/KG/MIN 5. 444 mls/hr IV .Q24H [facility] Rx#:[id number] propofoL 1,000 mg In 144.788 Empty Bag 1 bag @ 15 MCG/ KG/MIN 4.286 mls/hr IV . [id number] [facility] Rx#:[id number] propofoL 1,000 mg In 87.346 Empty Bag 1 bag @ 15 MCG/ KG/MIN 4.286 mls/hr IV . [id number] K[facility]INA Rx#:[id number] Tube Feeding 70 160 30 Other 110 60 30 Output: Urine 540 175 45 Other: Voiding Method Indwelling Catheter Indwelling Catheter Indwelling Catheter # Bowel Movements 1 ABP, PAP, CO, CI - Last Documented Arterial Blood Pressure 120/61 - Exam GENERAL EXAM: 64-year-old female intubated, mechanically ventilated, patient is frail, looks chronically ill. Sedated, on propofol. HEAD: Normocephalic and atraumatic endotracheal tube and orogastric tube are intact. EYES: Normal reaction of pupils, equal size. NOSE: Clear with pink turbinates. THROAT: No erythema or exudates. NECK: No masses, no JVD. CHEST: No chest wall deformity. LUNGS: Minimal crackles at the bases no rhonchi no wheezes. CVS: Distant S1-S2, no S3 gallop, no murmur. ABDOMEN: Soft nontender no megaly no rebound no guarding. Bowel sounds. SKIN: Decubitus unstageable pressure injury. Bilateral lower extremity wounds. Multiple superficial ulcerations noted in both lower extremities. Most of them are weeping skin lesions CENTRAL NERVOUS SYSTEM: Sedated, could not assess.. EXTREMITIES: Bipedal edema with multiple superficial skin lesions/ulcerations noted bilaterally - Labs CBC & Chem 7: 03/15/24 04:20 03/15/24 04:20 Labs: Abnormal Lab Results - Last 24 Hours (Table) 03/14/24 03/14/24 03/14/24 Range/Units 11:00 12:35 12:39 WBC (3.8-10.6) k/uL RBC (3.80-5.40) m/uL Hgb (11.4-16.0) gm/dL Hct (34.0-46.0) % MCV (80.0-100.0) fL Neutrophils # (1.3-7.7) k/uL Lymphocytes # (1.0-4.8) k/uL APTT (22.0-30.0) sec ABG pH (7.35-7.45) ABG pO2 (83-108) mmHg ABG HCO3 (21-25) mmol/L ABG Total CO2 (19-24) mmol/L ABG O2 Saturation (94-97) % Potassium 3.4 L (3.5-5.1) mmol/L Chloride (98-107) mmol/L BUN (7-17) mg/dL Creatinine (0.52-1.04) mg/dL Glucose (74-99) mg/dL POC Glucose (mg/dL) 314 H (70-110) mg/dL Calcium (8.4-10.2) mg/dL Magnesium 1.5 L (1.6-2.3) mg/dL Alkaline Phosphatase (38-126) U/L Total Protein (6.3-8.2) g/dL Albumin (3.5-5.0) g/dL Fluid Appearance Cloudy A (Clear) 03/14/24 03/14/24 03/14/24 Range/Units 17:43 17:45 23:20 WBC (3.8-10.6) k/uL RBC (3.80-5.40) m/uL Hgb (11.4-16.0) gm/dL Hct (34.0-46.0) % MCV (80.0-100.0) fL Neutrophils # (1.3-7.7) k/uL Lymphocytes # (1.0-4.8) k/uL APTT 60.9 H (22.0-30.0) sec ABG pH (7.35-7.45) ABG pO2 (83-108) mmHg ABG HCO3 (21-25) mmol/L ABG Total CO2 (19-24) mmol/L ABG O2 Saturation (94-97) % Potassium (3.5-5.1) mmol/L Chloride (98-107) mmol/L BUN (7-17) mg/dL Creatinine (0.52-1.04) mg/dL Glucose (74-99) mg/dL POC Glucose (mg/dL) 337 H 251 H (70-110) mg/dL Calcium (8.4-10.2) mg/dL Magnesium (1.6-2.3) mg/dL Alkaline Phosphatase (38-126) U/L Total Protein (6.3-8.2) g/dL Albumin (3.5-5.0) g/dL Fluid Appearance (Clear) 03/15/24 03/15/24 03/15/24 Range/Units 04:20 04:20 04:20 WBC 21.8 H (3.8-10.6) k/uL RBC 3.15 L (3.80-5.40) m/uL Hgb 10.1 L (11.4-16.0) gm/dL Hct 32.3 L (34.0-46.0) % MCV 102.6 H (80.0-100.0) fL Neutrophils # 20.8 H (1.3-7.7) k/uL Lymphocytes # 0.4 L (1.0-4.8) k/uL APTT 60.6 H (22.0-30.0) sec ABG pH (7.35-7.45) ABG pO2 (83-108) mmHg ABG HCO3 (21-25) mmol/L ABG Total CO2 (19-24) mmol/L ABG O2 Saturation (94-97) % Potassium (3.5-5.1) mmol/L Chloride 108 H (98-107) mmol/L BUN 19 H (7-17) mg/dL Creatinine 0.27 L (0.52-1.04) mg/dL Glucose 213 H (74-99) mg/dL POC Glucose (mg/dL) (70-110) mg/dL Calcium 7.7 L (8.4-10.2) mg/dL Magnesium (1.6-2.3) mg/dL Alkaline Phosphatase 208 H (38-126) U/L Total Protein 4.2 L (6.3-8.2) g/dL Albumin 2.2 L (3.5-5.0) g/dL Fluid Appearance (Clear) 03/15/24 03/15/24 Range/Units 05:14 06:28 WBC (3.8-10.6) k/uL RBC (3.80-5.40) m/uL Hgb (11.4-16.0) gm/dL Hct (34.0-46.0) % MCV (80.0-100.0) fL Neutrophils # (1.3-7.7) k/uL Lymphocytes # (1.0-4.8) k/uL APTT (22.0-30.0) sec ABG pH 7.47 H (7.35-7.45) ABG pO2 134 H (83-108) mmHg ABG HCO3 31 H (21-25) mmol/L ABG Total CO2 32 H (19-24) mmol/L ABG O2 Saturation 100.2 H (94-97) % Potassium (3.5-5.1) mmol/L Chloride (98-107) mmol/L BUN (7-17) mg/dL Creatinine (0.52-1.04) mg/dL Glucose (74-99) mg/dL POC Glucose (mg/dL) 220 H (70-110) mg/dL Calcium (8.4-10.2) mg/dL Magnesium (1.6-2.3) mg/dL Alkaline Phosphatase (38-126) U/L Total Protein (6.3-8.2) g/dL Albumin (3.5-5.0) g/dL Fluid Appearance (Clear) Microbiology - Last 24 Hours (Table) 03/14/24 11:00 Gram Stain - Preliminary Bronchial Washings - Random Bronchial Washings Culture - Preliminary 03/13/24 17:12 Blood Culture - Preliminary Blood 03/13/24 17:00 Blood Culture - Preliminary Blood 03/13/24 20:22 Gram Stain - Preliminary Sputum Assessment and Plan Assessment: Impression: Acute hypoxic respiratory failure requiring intubation mechanical ventilation, multifactorial. Acute multifocal pneumonia, most likely healthcare acquired pneumonia most likely gram-negative pneumonia. Cultures from BAL are pending so far significant gram-negative bacilli noted in the Gram stain. Acute exacerbation of COPD Acute right upper lobe pulmonary embolism as noted on CT angiogram of the chest on admission Sepsis and septic shock secondary to pneumonia, patient received significant amount of fluids still requiring norepinephrine Profound hypotension on admission requiring pressors Acute leukocytosis History of systemic candidemia, completed a course of Diflucan. Chronic urinary retention with indwelling Horn catheter History of constipation status post decompressive sigmoidoscopy in January 26, 2002 4 Type 2 diabetes Benign essential hypertension Dyslipidemia Severe protein calorie malnutrition Chronic decubitus pressure ulcer and multiple skin ulcerations involving both lower extremities. Oliguria but relatively normal functioning will try a Lasix challenge Recommendation: Continue ventilatory support FiO2 down to 35%, keep assist-control rate 16 tidal volume 300 FiO2 45% Continue nutritional support advance as tolerated patient is presently on trickle feeding mostly because of high residual Continue GI DVT prophylaxis, patient is on heparin as per protocol for acute PE Continue antibiotics/Zosyn adjust antibiotics accordingly once the final culture is back from BAL so far the Gram stain is showing gram-negative bacilli. Cut down on IV fluid and give the patient a trial of diuresis Daily interruption of sedation and assessment of mental status starting today. Continue wound care as per wound care recommendations Continue to monitor daily electrolytes and daily labs and address accordingly Continue bronchodilators for underlying COPD and continue IV Solu-Medrol. Titrate norepinephrine to maintain mean arterial pressure of 65 or higher. Continue heparin as per protocol for pulmonary embolism Will continue to follow. Patient is critically ill. Critical care time is over 30-minute Time with Patient: Greater than 30
--- NOTE | 2024-03-15 10:50 | P.CONS ---
History of Present Illness - Reason for Consult Consult date: 03/15/24 wound care - History of Present Illness This is a 64-year-old patient intubated in the ICU being seen for nonhealing ulcerations to bilateral lower extremities and a stage III pressure ulcer to the coccyx. Coccyx ulceration measures approximately 1.5 x 3 x 0.4 cm with significant amount of slough and nonviable tissue present no granulation seen within the wound bed. Bilateral lower extremities have multiple ulcerations t hat are limited to skin breakdown that are weeping related to increased edema.Patient's past medical history significant for COPD diabetes hyperlipidemia and hypertension. She is an every day smoker. Review of systems: Unable to obtain due to intubation Physical exam: General Appearance: Alert, cooperative, no distress, appears stated age. Skin: See HPI all other Skin color, texture, tugor normal, no rashes or lesions. Neurologic: Alert oriented x3 Assessment: 1. Stage III pressure ulcer sacrum 2. Chronic hypertension with ulcerations and inflammation bilateral lower extremities 3. Diabetes with skin ulceration Plan: 1. Sacrum: Apply honey gel and bordered foam change Wednesday. Bilateral lower extremities apply zinc barrier cream rolled gauze secure with tape wrap with Flaco wrap for compression. Change daily. Thank for the consultation any questions please contact the wound care center DNP note has been reviewed and discussed with Dr. Dior and the impression and plan of care has been directed as dictated. Past Medical History Past Medical History: COPD, Diabetes Mellitus, Hyperlipidemia, Hypertension History of Any Multi-Drug Resistant Organisms: None Reported Past Surgical History: Adenoidectomy, Hysterectomy, Tubal Ligation Additional Past Surgical History / Comment(s): 2 tumors removals Past Psychological History: Depression Smoking Status: Current every day smoker Past Alcohol Use History: None Reported Past Drug Use History: None Reported Medications and Allergies Home Medications Medication Instructions Recorded Confirmed Type Budesonide/Formoterol Fumarate 2 puff INHALATION RT-BID 01/29/24 03/13/24 History [Symbicort 160-4.5 Mcg Inhaler] Escitalopram [Lexapro] 10 mg PO DAILY 01/29/24 03/13/24 History Insulin Glargine,Hum.rec.anlog 15 units SQ HS 01/29/24 03/13/24 History [Lantus Solostar Pen] Insulin Lispro [Insulin Lispro 5 units SQ TID-W/MEALS 01/29/24 03/13/24 History Kwikpen U-100] Lactobacillus Rhamnosus GG 1 cap PO BID 01/29/24 03/13/24 History [Culturelle] Melatonin 3 mg PO HS PRN 01/29/24 03/13/24 History Montelukast [Singulair] 10 mg PO HS 01/29/24 03/13/24 History Nicotine 14Mg/24Hr Patch [Habitrol] 1 patch TRANSDERM DAILY 01/29/24 03/13/24 History Pioglitazone HCl 15 mg PO DAILY 01/29/24 03/13/24 History amLODIPine [Norvasc] 5 mg PO BID 01/29/24 03/13/24 History guaiFENesin [guaiFENesin ER] 600 mg PO BID 01/29/24 03/13/24 History Budesonide [Pulmicort] 1 mg INHALATION RT-BID ml 02/05/24 03/13/24 Rx Formoterol Fumarate [Perforomist] 20 mcg INHALATION RT-BID ml 02/05/24 03/13/24 Rx Ipratropium-Albuterol Nebulize 3 ml INHALATION RT-QID each 02/05/24 03/13/24 Rx [Duoneb 0.5 mg-3 mg/3 ml Soln] Pantoprazole [Protonix] 40 mg PO AC-BID tab 02/05/24 03/13/24 Rx Voriconazole [Vfend] 200 mg PO Q12HR tab 02/05/24 03/13/24 Rx Acetaminophen Tab [Tylenol] 650 mg PO Q4HR PRN tab 02/26/24 03/13/24 Rx Lactulose [Cephulac] 20 gm PO TID 30 Days #90 ml 02/26/24 03/13/24 Rx Furosemide [Lasix] 40 mg PO BID 03/13/24 03/13/24 History Allergies Allergy/AdvReac Type Severity Reaction Status Date / Time No Known Allergies Allergy Verified 03/13/24 17:23 Physical Exam Vitals: Vital Signs Temp Pulse Resp BP Pulse Ox FiO2 03/15/24 10:00 87 22 35 03/15/24 09:46 89 18 30 03/15/24 09:30 83 16 100 03/15/24 09:16 35 03/15/24 09:15 89 25 H 100 06/19/24 09:00 87 18 100 35 03/15/24 08:45 86 17 100 03/15/24 08:30 85 16 100 03/15/24 08:15 85 16 100 03/15/24 08:12 35 03/15/24 08:00 97.8 F 90 22 100 45 03/15/24 07:45 88 24 100 03/15/24 07:30 89 19 100 03/15/24 07:15 87 21 100 03/15/24 07:00 85 15 106/75 03/15/24 06:45 84 15 106/75 100 03/15/24 06:30 85 15 106/75 100 03/15/24 06:15 86 17 106/75 100 03/15/24 06:00 86 17 115/73 03/15/24 05:45 93 18 115/73 100 03/15/24 05:30 89 17 115/73 100 03/15/24 05:15 91 18 115/73 100 03/15/24 05:00 93 24 82/55 03/15/24 04:45 90 15 82/55 100 03/15/24 04:30 91 17 82/55 100 03/15/24 04:15 91 15 82/55 100 03/15/24 04:00 97.5 F L 92 17 99/65 100 45 03/15/24 03:45 97 22 99/65 100 03/15/24 03:30 92 18 99/65 100 03/15/24 03:16 92 03/15/24 03:15 92 17 99/65 100 03/15/24 03:10 45 03/15/24 03:01 90 03/15/24 03:00 90 14 99/62 100 03/15/24 02:45 92 17 99/62 100 03/15/24 02:30 97 22 99/62 100 03/15/24 02:15 96 17 99/62 100 03/15/24 02:00 96 18 104/66 03/15/24 01:45 99 19 104/66 100 03/15/24 01:30 98 16 104/66 100 03/15/24 01:15 98 16 104/66 100 03/15/24 01:00 99 18 112/67 100 03/15/24 00:45 101 H 19 112/67 100 24 00:30 97 15 112/67 100 24 00:18 99 26 H 112/67 99 03/15/24 00:15 98 16 112/67 100 03/15/24 00:00 97.5 F L 98 18 117/75 100 45 24 23:52 98 03/14/24 23:45 96 17 117/75 100 03/14/24 23:42 45 03/14/24 23:40 95 03/14/24 23:30 93 14 117/75 100 24 23:15 95 13 117/75 100 03/14/24 23:00 96 16 105/72 100 03/14/24 22:45 96 16 105/72 100 03/14/24 22:30 96 13 105/72 100 03/14/24 22:15 95 13 105/72 100 03/14/24 22:00 95 14 114/70 100 03/14/24 21:45 93 14 114/70 100 03/14/24 21:30 93 13 114/70 100 03/14/24 21:23 93 03/14/24 21:15 92 14 114/70 100 03/14/24 21:02 92 03/14/24 21:01 92 03/14/24 21:00 92 14 111/67 100 03/14/24 20:52 45 03/14/24 20:51 93 03/14/24 20:45 92 12 111/67 100 03/14/24 20:30 91 12 111/67 100 03/14/24 20:15 92 13 111/67 100 03/14/24 20:00 97.5 F L 91 12 98/65 100 45 24 19:45 89 14 98/65 100 03/14/24 19:30 89 12 98/65 100 24 19:15 89 12 98/65 100 03/14/24 19:00 91 21 99 45 03/14/24 18:45 92 22 100 45 24 18:30 90 18 100 45 24 18:15 89 21 100 45 24 18:00 89 16 109/65 100 45 24 17:45 90 16 100 45 1824 17:30 90 16 100 45 06/18/24 17:16 85 06/18/24 17:15 88 16 100 45 03/14/24 17:00 85 16 100 45 03/14/24 16:59 85 03/14/24 16:45 85 16 100 45 03/14/24 16:30 86 21 100 45 03/14/24 16:15 97.4 F L 86 24 100 45 03/14/24 16:00 87 24 100 45 03/14/24 15:45 87 22 100 45 03/14/24 15:30 87 18 100 45 03/14/24 15:15 88 18 93/62 100 45 03/14/24 15:00 88 18 93/62 100 45 03/14/24 14:55 45 03/14/24 14:45 88 18 100 45 03/14/24 14:30 88 0 L 100 45 03/14/24 14:15 87 0 L 100 45 03/14/24 14:00 88 0 L 100 45 03/14/24 13:45 87 0 L 100 45 03/14/24 13:30 86 18 100 45 03/14/24 13:25 84 03/14/24 13:15 85 18 100 45 03/14/24 13:00 90 18 99 45 03/14/24 12:45 92 18 99 45 03/14/24 12:30 92 22 100 45 03/14/24 12:15 93 26 H 99 45 03/14/24 12:00 99.2 F 96 20 87/66 100 45 03/14/24 11:00 105 H 22 136/77 100 45 Intake and Output 03/14/24 03/15/24 03/15/24 22:59 06:59 14:59 Intake Total 2573.395 1351.896 408.789 Output Total 180 130 60 Balance 2393.395 1221.896 348.789 Intake: IV 2360 1060 165 Invasive Line 4 20 20 Magnesium Sulfate-D5w Pmx 200 1 gm In Dextrose/Water 1 100ml.bag @ 100 mls/hr IVPB Q1H [facility] Rx#: [id number] Potassium Chloride 20 meq 100 In Water For Injection 1 100ml.bag @ 50 mls/hr IVPB ONCE STA Rx#: [id number] Sodium Chloride 0.9% 1, 1040 1040 165 000 ml @ 10 mls/hr IV . Q24H [facility] Rx#:[id number] Sodium Chloride 0.9% 1, 1000 000 ml @ 999 mls/hr IV . Q1H1M STA Rx#:[id number] Intake, IV Titration 113.395 101.896 173.789 Amount Heparin Sod,Pork in 0.45% 161.208 NaCl 25,000 unit In 0.45 % NaCl 1 250ml.bag @ 18 UNITS/KG/HR 8.573 mls/hr IV .Q24H [facility] Rx#: [id number] Norepinephrine 4 mg In 59.576 14.550 12.581 Sodium Chloride 0.9% 250 ml @ 0.03 MCG/KG/MIN 5. 444 mls/hr IV .Q24H [facility] Rx#:[id number] propofoL 1,000 mg In 53.819 Empty Bag 1 bag @ 15 MCG/ KG/MIN 4.286 mls/hr IV . [id number] [facility] Rx#:[id number] propofoL 1,000 mg In 87.346 Empty Bag 1 bag @ 15 MCG/ KG/MIN 4.286 mls/hr IV . [id number] [facility] Rx#:[id number] Tube Feeding 70 130 40 Other 30 60 30 Output: Urine 180 130 60 Other: Voiding Method Indwelling Catheter Indwelling Catheter Indwelling Catheter Weight 61.4 kg ABP, PAP, CO, CI - Last 8 Hours Arterial Blood Pressure 142/74 Arterial Blood Pressure 120/61 Arterial Blood Pressure 120/59 Arterial Blood Pressure 114/57 Arterial Blood Pressure 114/56 Arterial Blood Pressure 113/55 Arterial Blood Pressure 124/61 Arterial Blood Pressure 119/58 Arterial Blood Pressure 128/60 Arterial Blood Pressure 118/56 Arterial Blood Pressure 114/53 Arterial Blood Pressure 104/49 Arterial Blood Pressure 99/47 Arterial Blood Pressure 101/48 Arterial Blood Pressure 105/50 Arterial Blood Pressure 126/57 Arterial Blood Pressure 115/52 Arterial Blood Pressure 112/53 Arterial Blood Pressure 121/57 Arterial Blood Pressure 108/50 Arterial Blood Pressure 108/50 Arterial Blood Pressure 108/48 Arterial Blood Pressure 84/42 Arterial Blood Pressure 127/63 Arterial Blood Pressure 126/54 Arterial Blood Pressure 120/53 Arterial Blood Pressure 111/53 Results CBC & Chem 7: 03/15/24 04:20 03/15/24 04:20 Labs: Abnormal Lab Results - Last 24 Hours (Table) 03/14/24 03/14/2424 Range/Units 11:00 12:35 12:39 WBC (3.8-10.6) k/uL RBC (3.80-5.40) m/uL Hgb (11.4-16.0) gm/dL Hct (34.0-46.0) % MCV (80.0-100.0) fL Neutrophils # (1.3-7.7) k/uL Lymphocytes # (1.0-4.8) k/uL APTT (22.0-30.0) sec ABG pH (7.35-7.45) ABG pO2 (83-108) mmHg ABG HCO3 (21-25) mmol/L ABG Total CO2 (19-24) mmol/L ABG O2 Saturation (94-97) % Potassium 3.4 L (3.5-5.1) mmol/L Chloride (98-107) mmol/L BUN (7-17) mg/dL Creatinine (0.52-1.04) mg/dL Glucose (74-99) mg/dL POC Glucose (mg/dL) 314 H (70-110) mg/dL Calcium (8.4-10.2) mg/dL Magnesium 1.5 L (1.6-2.3) mg/dL Alkaline Phosphatase (38-126) U/L Total Protein (6.3-8.2) g/dL Albumin (3.5-5.0) g/dL Fluid Appearance Cloudy A (Clear) 03/14/24 03/14/24 03/14/24 Range/Units 17:43 17:45 23:20 WBC (3.8-10.6) k/uL RBC (3.80-5.40) m/uL Hgb (11.4-16.0) gm/dL Hct (34.0-46.0) % MCV (80.0-100.0) fL Neutrophils # (1.3-7.7) k/uL Lymphocytes # (1.0-4.8) k/uL APTT 60.9 H (22.0-30.0) sec ABG pH (7.35-7.45) ABG pO2 (83-108) mmHg ABG HCO3 (21-25) mmol/L ABG Total CO2 (19-24) mmol/L ABG O2 Saturation (94-97) % Potassium (3.5-5.1) mmol/L Chloride (98-107) mmol/L BUN (7-17) mg/dL Creatinine (0.52-1.04) mg/dL Glucose (74-99) mg/dL POC Glucose (mg/dL) 337 H 251 H (70-110) mg/dL Calcium (8.4-10.2) mg/dL Magnesium (1.6-2.3) mg/dL Alkaline Phosphatase (38-126) U/L Total Protein (6.3-8.2) g/dL Albumin (3.5-5.0) g/dL Fluid Appearance (Clear) 03/15/24 03/15/24 03/15/24 Range/Units 04:20 04:20 04:20 WBC 21.8 H (3.8-10.6) k/uL RBC 3.15 L (3.80-5.40) m/uL Hgb 10.1 L (11.4-16.0) gm/dL Hct 32.3 L (34.0-46.0) % MCV 102.6 H (80.0-100.0) fL Neutrophils # 20.8 H (1.3-7.7) k/uL Lymphocytes # 0.4 L (1.0-4.8) k/uL APTT 60.6 H (22.0-30.0) sec ABG pH (7.35-7.45) ABG pO2 (83-108) mmHg ABG HCO3 (21-25) mmol/L ABG Total CO2 (19-24) mmol/L ABG O2 Saturation (94-97) % Potassium (3.5-5.1) mmol/L Chloride 108 H (98-107) mmol/L BUN 19 H (7-17) mg/dL Creatinine 0.27 L (0.52-1.04) mg/dL Glucose 213 H (74-99) mg/dL POC Glucose (mg/dL) (70-110) mg/dL Calcium 7.7 L (8.4-10.2) mg/dL Magnesium (1.6-2.3) mg/dL Alkaline Phosphatase 208 H (38-126) U/L Total Protein 4.2 L (6.3-8.2) g/dL Albumin 2.2 L (3.5-5.0) g/dL Fluid Appearance (Clear) 03/15/24 03/15/24 Range/Units 05:14 06:28 WBC (3.8-10.6) k/uL RBC (3.80-5.40) m/uL Hgb (11.4-16.0) gm/dL Hct (34.0-46.0) % MCV (80.0-100.0) fL Neutrophils # (1.3-7.7) k/uL Lymphocytes # (1.0-4.8) k/uL APTT (22.0-30.0) sec ABG pH 7.47 H (7.35-7.45) ABG pO2 134 H (83-108) mmHg ABG HCO3 31 H (21-25) mmol/L ABG Total CO2 32 H (19-24) mmol/L ABG O2 Saturation 100.2 H (94-97) % Potassium (3.5-5.1) mmol/L Chloride (98-107) mmol/L BUN (7-17) mg/dL Creatinine (0.52-1.04) mg/dL Glucose (74-99) mg/dL POC Glucose (mg/dL) 220 H (70-110) mg/dL Calcium (8.4-10.2) mg/dL Magnesium (1.6-2.3) mg/dL Alkaline Phosphatase (38-126) U/L Total Protein (6.3-8.2) g/dL Albumin (3.5-5.0) g/dL Fluid Appearance (Clear) Microbiology - Last 24 Hours (Table) 03/14/24 11:00 Gram Stain - Preliminary Bronchial Washings - Random Bronchial Washings Culture - Preliminary 03/13/24 17:12 Blood Culture - Preliminary Blood 03/13/24 17:00 Blood Culture - Preliminary Blood 03/13/24 20:22 Gram Stain - Preliminary Sputum Assessment and Plan (1) Stage III pressure ulcer of sacral region Current Visit: No Status: Acute Code(s): L89.153 - PRESSURE ULCER OF SACRAL REGION, STAGE 3 SNOMED Code(s): 69091042237320 (2) Chronic venous hypertension (idiopathic) with ulcer of bilateral lower extremity Current Visit: Yes Status: Acute Code(s): I87.313 - CHRONIC VENOUS HYPERTENSION W ULCER OF BILATERAL LOW EXTRM; L97.919 - NON-PRS CHRONIC ULC UNSP PRT OF R LOW LEG W UNSP SEVERITY; L97.929 - NON-PRS CHRONIC ULC UNSP PRT OF L LOW LEG W UNSP SEVERITY SNOMED Code(s): 170951166554100 (3) Type 2 diabetes mellitus with other skin ulcer Current Visit: Yes Status: Acute Code(s): E11.622 - TYPE 2 DIABETES MELLITUS WITH OTHER SKIN ULCER; L98.499 - NON-PRESSURE CHRONIC ULCER OF SKIN OF SITES W UNSP SEVERITY SNOMED Code(s): 067736167
[2024-03-15 11:26] LABS: Glucose,Whole Blood 233 mg/dL (70-110)
[2024-03-15] MEDS: ZINC OXIDE PASTE (Z-GUARD) 1 APPLIC TOPICAL SCH (12:04)
[2024-03-15 12:06] LABS: Phosphorus 2.5 mg/dL (2.5-4.5); Potassium 3.9 mmol/L (3.5-5.1)
[2024-03-15] MEDS: POTASSIUM CHLORIDE 20 MEQ in WATER FOR INJECTION 1 100ML.BAG IVPB ONE (13:01)
[2024-03-15 17:32] LABS: Glucose,Whole Blood 210 mg/dL (70-110)
--- NOTE | 2024-03-15 20:54 | P.CONS ---
History of Present Illness - Reason for Consult Consult date: 03/15/24 Pneumonia Requesting physician: Cory Lloyd - Chief Complaint Increasing shortness of breath x 1 day - History of Present Illness Patient is a 64-year-old female with a past medical history significant for diabetes mellitus hypertension hyperlipidemia COPD recently prolonged hospital stay for pneumonia patient was brought into the [facility] ER 2 days ago for evaluation of difficulty breathing symptoms started the morning of presentation to the hospital no history of cough fever patient did have a worsening of respiratory status requiring intubation and admission to the ICU patient did have 1 low-grade fever of 99.2 otherwise no high-grade fever has been reported patient is currently on the ventilator FiO2 is down to 35% no significant purulent secretion reported through the ET patient is currently hemodynamic stable not requiring any pressor support patient did have a white count of 29,000 admission which is down to 21,000 creatinine is normal lactic acid was elevated repeat is normal liver enzymes are normal urine is positive patient did have a chest x-ray small to moderate left effusion also have a CT angiogram of the chest nonocclusive right upper lobe pulmonary embolus no evidence of right heart strain airspace opacity in the left lower lobe lobe and right upper lobe suspicious for pneumonia patient did have a bronchoscopy with lavage completed yesterday afternoon patient has been empirically treated with the Zosyn infectious was consulted regarding pneumonia most information has been obtained from review the chart talking to nursing staff as the patient currently elevated on the vent and cannot provide any history patient noticed to have swelling to the lower extremity some superficial ulceration and also have a pres sure ulcer to the sacral area that she has on admission Review of Systems Positive points has been mentioned in HPI complete review could not be obtained because patient intubated on the vent Past Medical History Past Medical History: COPD, Diabetes Mellitus, Hyperlipidemia, Hypertension History of Any Multi-Drug Resistant Organisms: None Reported Past Surgical History: Adenoidectomy, Hysterectomy, Tubal Ligation Additional Past Surgical History / Comment(s): 2 tumors removals Past Psychological History: Depression Smoking Status: Current every day smoker Past Alcohol Use History: None Reported Past Drug Use History: None Reported Medications and Allergies Home Medications Medication Instructions Recorded Confirmed Type Budesonide/Formoterol Fumarate 2 puff INHALATION RT-BID 01/29/24 03/13/24 Hi story [Symbicort 160-4.5 Mcg Inhaler] Escitalopram [Lexapro] 10 mg PO DAILY 01/29/24 03/13/24 History Insulin Glargine,Hum.rec.anlog 15 units SQ HS 01/29/24 03/13/24 History [Lantus Solostar Pen] Insulin Lispro [Insulin Lispro 5 units SQ TID-W/MEALS 01/29/24 03/13/24 History Kwikpen U-100] Lactobacillus Rhamnosus GG 1 cap PO BID 01/29/24 03/13/24 History [Culturelle] Melatonin 3 mg PO HS PRN 01/29/24 03/13/24 History Montelukast [Singulair] 10 mg PO HS 01/29/24 03/13/24 History Nicotine 14Mg/24Hr Patch [Habitrol] 1 patch TRANSDERM DAILY 01/29/24 03/13/24 History Pioglitazone HCl 15 mg PO DAILY 01/29/24 03/13/24 History amLODIPine [Norvasc] 5 mg PO BID 01/29/24 03/13/24 History guaiFENesin [guaiFENesin ER] 600 mg PO BID 01/29/24 03/13/24 History Budesonide [Pulmicort] 1 mg INHALATION RT-BID ml 02/05/24 03/13/24 Rx Formoterol Fumarate [Perforomist] 20 mcg INHALATION RT-BID ml 02/05/24 03/13/24 Rx Ipratropium-Albuterol Nebulize 3 ml INHALATION RT-QID each 02/05/24 03/13/24 Rx [Duoneb 0.5 mg-3 mg/3 ml Soln] Pantoprazole [Protonix] 40 mg PO AC-BID tab 02/05/24 03/13/24 Rx Voriconazole [Vfend] 200 mg PO Q12HR tab 02/05/24 03/13/24 Rx Acetaminophen Tab [Tylenol] 650 mg PO Q4HR PRN tab 02/26/24 03/13/24 Rx Lactulose [Cephulac] 20 gm PO TID 30 Days #90 ml 02/26/24 03/13/24 Rx Furosemide [Lasix] 40 mg PO BID 03/13/24 03/13/24 History Allergies Allergy/AdvReac Type Severity Reaction Status Date / Time No Known Allergies Allergy Verified 03/13/24 17:23 Physical Exam Vitals: Vital Signs Temp Pulse Resp BP Pulse Ox FiO2 03/15/24 09:30 83 16 100 03/15/24 09:16 35 03/15/24 09:15 89 25 H 100 03/15/24 09:00 87 18 100 35 03/15/24 08:45 86 17 100 03/15/24 08:30 85 16 100 03/15/24 08:15 85 16 100 03/15/24 08:12 35 03/15/24 08:00 97.8 F 90 22 100 45 03/15/24 07:45 88 24 100 03/15/24 07:30 89 19 100 03/15/24 07:15 87 21 100 03/15/24 07:00 85 15 106/75 03/15/24 06:45 84 15 106/75 100 03/15/24 06:30 85 15 106/75 100 03/15/24 06:15 86 17 106/75 100 03/15/24 06:00 86 17 115/73 03/15/24 05:45 93 18 115/73 100 03/15/24 05:30 89 17 115/73 100 03/15/24 05:15 91 18 115/73 100 03/15/24 05:00 93 24 82/55 03/15/24 04:45 90 15 82/55 100 03/15/24 04:30 91 17 82/55 100 03/15/24 04:15 91 15 82/55 100 03/15/24 04:00 97.5 F L 92 17 99/65 100 45 03/15/24 03:45 97 22 99/65 100 03/15/24 03:30 92 18 99/65 100 03/15/24 03:16 92 03/15/24 03:15 92 17 99/65 100 03/15/24 03:10 45 03/15/24 03:01 90 03/15/24 03:00 90 14 99/62 100 03/15/24 02:45 92 17 99/62 100 03/15/24 02:30 97 22 99/62 100 03/15/24 02:15 96 17 99/62 100 03/15/24 02:00 96 18 104/66 03/15/24 01:45 99 19 104/66 100 03/15/24 01:30 98 16 104/66 100 03/15/24 01:15 98 16 104/66 100 03/15/24 01:00 99 18 112/67 100 03/15/24 00:45 101 H 19 112/67 100 03/15/24 00:30 97 15 112/67 100 03/15/24 00:18 99 26 H 112/67 99 03/15/24 00:15 98 16 112/67 100 03/15/24 00:00 97.5 F L 98 18 117/75 100 45 03/14/24 23:52 98 03/14/24 23:45 96 17 117/75 100 03/14/24 23:42 45 03/14/24 23:40 95 03/14/24 23:30 93 14 117/75 100 03/14/24 23:15 95 13 117/75 100 03/14/24 23:00 96 16 105/72 100 03/14/24 22:45 96 16 105/72 100 03/14/24 22:30 96 13 105/72 100 03/14/24 22:15 95 13 105/72 100 03/14/24 22:00 95 14 114/70 100 03/14/24 21:45 93 14 114/70 100 03/14/24 21:30 93 13 114/70 100 03/14/24 21:23 93 03/14/24 21:15 92 14 114/70 100 03/14/24 21:02 92 03/14/24 21:01 92 03/14/24 21:00 92 14 111/67 100 03/14/24 20:52 45 03/14/24 20:51 93 03/14/24 20:45 92 12 111/67 100 03/14/24 20:30 91 12 111/67 100 03/14/24 20:15 92 13 111/67 100 03/14/24 20:00 97.5 F L 91 12 98/65 100 45 03/14/24 19:45 89 14 98/65 100 03/14/24 19:30 89 12 98/65 100 03/14/24 19:15 89 12 98/65 100 03/14/24 19:00 91 21 99 45 03/14/24 18:45 92 22 100 45 03/14/24 18:30 90 18 100 45 03/14/24 18:15 89 21 100 45 03/14/24 18:00 89 16 109/65 100 45 03/14/24 17:45 90 16 100 45 03/14/24 17:30 90 16 100 45 03/14/24 17:16 85 03/14/24 17:15 88 16 100 45 03/14/24 17:00 85 16 100 45 03/14/24 16:59 85 03/14/24 16:45 85 16 100 45 03/14/24 16:30 86 21 100 45 03/14/24 16:15 97.4 F L 86 24 100 45 03/14/24 16:00 87 24 100 45 03/14/24 15:45 87 22 100 45 03/14/24 15:30 87 18 100 45 03/14/24 15:15 88 18 93/62 100 45 03/14/24 15:00 88 18 93/62 100 45 03/14/24 14:55 45 03/14/24 14:45 88 18 100 45 03/14/24 14:30 88 0 L 100 45 03/14/24 14:15 87 0 L 100 45 03/14/24 14:00 88 0 L 100 45 03/14/24 13:45 87 0 L 100 45 03/14/24 13:30 86 18 100 45 03/14/24 13:25 84 03/14/24 13:15 85 18 100 45 03/14/24 13:00 90 18 99 45 03/14/24 12:45 92 18 99 45 03/14/24 12:30 92 22 100 45 03/14/24 12:15 93 26 H 99 45 03/14/24 12:00 99.2 F 96 20 87/66 100 45 03/14/24 11:00 105 H 22 136/77 100 45 03/14/24 10:34 45 03/14/24 10:00 97 20 109/72 100 45 Intake and Output 03/14/24 03/15/24 03/15/24 22:59 06:59 14:59 Intake Total 2573.395 1351.896 383.789 Output Total 180 130 45 Balance 2393.395 1221.896 338.789 Intake: IV 2360 1060 150 Invasive Line 4 20 20 Magnesium Sulfate-D5w Pmx 200 1 gm In Dextrose/Water 1 100ml.bag @ 100 mls/hr IVPB Q1H [facility] Rx#: [id number] Potassium Chloride 20 meq 100 In Water For Injection 1 100ml.bag @ 50 mls/hr IVPB ONCE [facility] Rx#: [id number] Sodium Chloride 0.9% 1, 1040 1040 150 000 ml @ 10 mls/hr IV . Q24H [facility] Rx#:[id number] Sodium Chloride 0.9% 1, 1000 000 ml @ 999 mls/hr IV . Q1H1M [facility] Rx#:[id number] Intake, IV Titration 113.395 101.896 173.789 Amount Heparin Sod,Pork in 0.45% 161.208 NaCl 25,000 unit In 0.45 % NaCl 1 250ml.bag @ 18 UNITS/KG/HR 8.573 mls/hr IV .Q24H [facility] Rx#: [id number] Norepinephrine 4 mg In 59.576 14.550 12.581 Sodium Chloride 0.9% 250 ml @ 0.03 MCG/KG/MIN 5. 444 mls/hr IV .Q24H [facility] Rx#:[id number] propofoL 1,000 mg In 53.819 Empty Bag 1 bag @ 15 MCG/ KG/MIN 4.286 mls/hr IV . [id number] [facility] Rx#:[id number] propofoL 1,000 mg In 87.346 Empty Bag 1 bag @ 15 MCG/ KG/MIN 4.286 mls/hr IV . [id number] [facility] Rx#:[id number] Tube Feeding 70 130 30 Other 30 60 30 Output: Urine 180 130 45 Other: Voiding Method Indwelling Catheter Indwelling Catheter Indwelling Catheter Weight 61.4 kg ABP, PAP, CO, CI - Last 8 Hours Arterial Blood Pressure 120/61 Arterial Blood Pressure 120/59 Arterial Blood Pressure 114/57 Arterial Blood Pressure 114/56 Arterial Blood Pressure 113/55 Arterial Blood Pressure 124/61 Arterial Blood Pressure 119/58 Arterial Blood Pressure 128/60 Arterial Blood Pressure 118/56 Arterial Blood Pressure 114/53 Arterial Blood Pressure 104/49 Arterial Blood Pressure 99/47 Arterial Blood Pressure 101/48 Arterial Blood Pressure 105/50 Arterial Blood Pressure 126/57 Arterial Blood Pressure 115/52 Arterial Blood Pressure 112/53 Arterial Blood Pressure 121/57 Arterial Blood Pressure 108/50 Arterial Blood Pressure 108/50 Arterial Blood Pressure 108/48 Arterial Blood Pressure 84/42 Arterial Blood Pressure 127/63 Arterial Blood Pressure 126/54 Arterial Blood Pressure 120/53 Arterial Blood Pressure 111/53 Arterial Blood Pressure 117/55 Arterial Blood Pressure 119/56 Arterial Blood Pressure 117/53 Arterial Blood Pressure 108/53 GENERAL DESCRIPTION: Middle-age female intubated on the vent HEENT: Shows Pallor , no scleral icterus. Oral mucous membrane is dry. NECK: Trachea central, no thyromegaly. LUNGS: Unlabored breathing. Decreased breath sounds at the base HEART: S1, S2, regular rate and rhythm. No loud murmur ABDOMEN: Soft, no tenderness , guarding or rigidity, no organomegaly EXTREMITIES: Bilateral extremity swelling subsuperficial laceration from the bl ister SKIN: No rash, no masses palpable. Unstageable pressure ulcer to the sacral area with slough and necrotic tissue NEUROLOGICAL: The patient is sedated on the vent Results CBC & Chem 7: 03/15/24 04:20 03/15/24 17:33 Labs: Abnormal Lab Results - Last 24 Hours (Table) 03/14/24 03/14/24 03/14/24 Range/Units 11:00 12:35 12:39 WBC (3.8-10.6) k/uL RBC (3.80-5.40) m/uL Hgb (11.4-16.0) gm/dL Hct (34.0-46.0) % MCV (80.0-100.0) fL Neutrophils # (1.3-7.7) k/uL Lymphocytes # (1.0-4.8) k/uL APTT (22.0-30.0) sec ABG pH (7.35-7.45) ABG pO2 (83-108) mmHg ABG HCO3 (21-25) mmol/L ABG Total CO2 (19-24) mmol/L ABG O2 Saturation (94-97) % Potassium 3.4 L (3.5-5.1) mmol/L Chloride (98-107) mmol/L BUN (7-17) mg/dL Creatinine (0.52-1.04) mg/dL Glucose (74-99) mg/dL POC Glucose (mg/dL) 314 H (70-110) mg/dL Calcium (8.4-10.2) mg/dL Magnesium 1.5 L (1.6-2.3) mg/dL Alkaline Phosphatase (38-126) U/L Total Protein (6.3-8.2) g/dL Albumin (3.5-5.0) g/dL Fluid Appearance Cloudy A (Clear) 03/14/24 03/14/24 03/14/24 Range/Units 17:43 17:45 23:20 WBC (3.8-10.6) k/uL RBC (3.80-5.40) m/uL Hgb (11.4-16.0) gm/dL Hct (34.0-46.0) % MCV (80.0-100.0) fL Neutrophils # (1.3-7.7) k/uL Lymphocytes # (1.0-4.8) k/uL APTT 60.9 H (22.0-30.0) sec ABG pH (7.35-7.45) ABG pO2 (83-108) mmHg ABG HCO3 (21-25) mmol/L ABG Total CO2 (19-24) mmol/L ABG O2 Saturation (94-97) % Potassium (3.5-5.1) mmol/L Chloride (98-107) mmol/L BUN (7-17) mg/dL Creatinine (0.52-1.04) mg/dL Glucose (74-99) mg/dL POC Glucose (mg/dL) 337 H 251 H (70-110) mg/dL Calcium (8.4-10.2) mg/dL Magnesium (1.6-2.3) mg/dL Alkaline Phosphatase (38-126) U/L Total Protein (6.3-8.2) g/dL Albumin (3.5-5.0) g/dL Fluid Appearance (Clear) 03/15/24 03/15/24 03/15/24 Range/Units 04:20 04:20 04:20 WBC 21.8 H (3.8-10.6) k/uL RBC 3.15 L (3.80-5.40) m/uL Hgb 10.1 L (11.4-16.0) gm/dL Hct 32.3 L (34.0-46.0) % MCV 102.6 H (80.0-100.0) fL Neutrophils # 20.8 H (1.3-7.7) k/uL Lymphocytes # 0.4 L (1.0-4.8) k/uL APTT 60.6 H (22.0-30.0) sec ABG pH (7.35-7.45) ABG pO2 (83-108) mmHg ABG HCO3 (21-25) mmol/L ABG Total CO2 (19-24) mmol/L ABG O2 Saturation (94-97) % Potassium (3.5-5.1) mmol/L Chloride 108 H (98-107) mmol/L BUN 19 H (7-17) mg/dL Creatinine 0.27 L (0.52-1.04) mg/dL Glucose 213 H (74-99) mg/dL POC Glucose (mg/dL) (70-110) mg/dL Calcium 7.7 L (8.4-10.2) mg/dL Magnesium (1.6-2.3) mg/dL Alkaline Phosphatase 208 H (38-126) U/L Total Protein 4.2 L (6.3-8.2) g/dL Albumin 2.2 L (3.5-5.0) g/dL Fluid Appearance (Clear) 03/15/24 03/15/24 Range/Units 05:14 06:28 WBC (3.8-10.6) k/uL RBC (3.80-5.40) m/uL Hgb (11.4-16.0) gm/dL Hct (34.0-46.0) % MCV (80.0-100.0) fL Neutrophils # (1.3-7.7) k/uL Lymphocytes # (1.0-4.8) k/uL APTT (22.0-30.0) sec ABG pH 7.47 H (7.35-7.45) ABG pO2 134 H (83-108) mmHg ABG HCO3 31 H (21-25) mmol/L ABG Total CO2 32 H (19-24) mmol/L ABG O2 Saturation 100.2 H (94-97) % Potassium (3.5-5.1) mmol/L Chloride (98-107) mmol/L BUN (7-17) mg/dL Creatinine (0.52-1.04) mg/dL Glucose (74-99) mg/dL POC Glucose (mg/dL) 220 H (70-110) mg/dL Calcium (8.4-10.2) mg/dL Magnesium (1.6-2.3) mg/dL Alkaline Phosphatase (38-126) U/L Total Protein (6.3-8.2) g/dL Albumin (3.5-5.0) g/dL Fluid Appearance (Clear) Microbiology - Last 24 Hours (Table) 03/13/24 17:12 Blood Culture - Preliminary Blood 03/13/24 17:00 Blood Culture - Preliminary Blood 03/13/24 20:22 Gram Stain - Preliminary Sputum Assessment and Plan (1) Pneumonia Current Visit: Yes Status: Acute Code(s): J18.9 - PNEUMONIA, UNSPECIFIED ORGANISM SNOMED Code(s): 131242550 (2) Sepsis Current Visit: Yes Status: Acute Code(s): A41.9 - SEPSIS, UNSPECIFIED ORGANISM SNOMED Code(s): 06454838 (3) Type 2 diabetes mellitus with other skin ulcer Current Visit: Yes Status: Acute Code(s): E11.622 - TYPE 2 DIABETES MELLITUS WITH OTHER SKIN ULCER; L98.499 - NON-PRESSURE CHRONIC ULCER OF SKIN OF SITES W UNSP SEVERITY SNOMED Code(s): 593547923 (4) Stage III pressure ulcer of sacral region Current Visit: No Status: Acute Code(s): L89.153 - PRESSURE ULCER OF SACRAL REGION, STAGE 3 SNOMED Code(s): 82855984132687 Plan: 1patient presented to hospital with sepsis in this patient who did have a low- grade fever tachycardia elevated white count source is multifactorial in this patient who did have a component of pneumonia as well as PE keeping in mind the patient has been out of the hospital we need to cover for the resistant gram- negative 2-patient did have a superficial ulcer involving lower extremity likely from ruptured blister with no evidence of any cellulitis 3-stage III pressure ulcer to the sacral area with necrotic tissue but no evidence of any cellulitis 4-patient to be advised Zosyn 3.37 g every 8 hours while waiting for the culture to finalize 5-Aquacel silver dressing to lower extremity wound followed by Flaco wrap change every 48 hour 6Medihoney to the sacral wound change daily and keep the area of the pressure We will follow on clinical condition and cultures to further adjust medication if needed Thank you for this consultation we will follow the patient along with you Dictation was produced using [employer] software. please excuse any grammatical, word or spelling errors. Time with Patient: Less than 30
[2024-03-15 22:36] LABS: Glucose,Whole Blood 216 mg/dL (70-110)
[2024-03-16 04:55] LABS: Basophils % (A) 0 %; Eosinophils % (A) 0 %; HGB 9.8 gm/dL (11.4-16.0); Hypochromasia Moderate; Lymphocytes # (A) 0.3 k/uL (1.0-4.8); Lymphocytes % (A) 2 %; MCH 32.1 pg (25.0-35.0); MCHC 30.7 g/dL (31.0-37.0); MCV 104.5 fL (80.0-100.0); Macrocytosis Moderate; Mean Platelet Volume 9.4; Monocytes # (A) 0.5 k/uL (0-1.0); Monocytes % (A) 2 %; Neutrophils # (A) 19.3 k/uL (1.3-7.7); Neutrophils % (A) 96 %; Platelet Count 358 k/uL (150-450); Poikilocytosis Slight; RBC 3.06 m/uL (3.80-5.40); RDW 15.2 % (11.5-15.5); WBC 20.2 k/uL (3.8-10.6)
[2024-03-16 06:00] LABS: Allen Test Performed? Yes
[2024-03-16 06:00] LABS: African American GFR (CKD) >90 (>60 ml/min/1.73 sqM); Anion Gap 2 mmol/L; Blood Urea Nitrogen 22 mg/dL (7-17); Calcium 8.1 mg/dL (8.4-10.2); Carbon Dioxide 27 mmol/L (22-30); Chloride 108 mmol/L (98-107); Glucose 193 mg/dL (74-99); Non-African American GFR(CKD) >90 (>60 ml/min/1.73 sqM); Potassium 3.9 mmol/L (3.5-5.1); Sodium 137 mmol/L (137-145)
[2024-03-16 06:01] LABS: ABG HCO3 31 mmol/L (21-25); ABG Oxygen Saturation 99.9 % (94-97); ABG PCO2 45 mmHg (35-45); ABG PH 7.45 (7.35-7.45); ABG PO2 120 mmHg (83-108); ABG TCO2 32 mmol/L (19-24)
[2024-03-16 06:32] LABS: Glucose,Whole Blood 217 mg/dL (70-110)
--- NOTE | 2024-03-16 08:18 | XR ---
EXAMINATION TYPE: XR chest 1V portable DATE OF EXAM: 03/16/2024 3:36 AM CLINICAL INDICATION:Female, 64 years old with history of Tube placement; COMPARISON: Chest radiographs from 1923. TECHNIQUE: XR chest 1V portable Frontal view of the chest. FINDINGS: Lungs/Pleura: Hazy opacities in left lung base. There is no evidence of pleural effusion, focal conso lidation, or pneumothorax. Pulmonary vascularity: Unremarkable. Heart/mediastinum: Cardiomediastinal silhouette is unremarkable. Musculoskeletal: No acute osseous pathology. Other findings: None Lines/Tubes: Endotracheal tube with distal tip 7.1 cm above the kendy. Nasogastric tube with its distal tip and side-port projecting under the diaphragm. IMPRESSION: 1. No evidence for pneumothorax. 2. Similar Left lower lung hazy airspace opacities. 3. Endotracheal tube has been slightly retracted. Nasogastric tube in stable position.
[2024-03-16] MEDS: SODIUM CHLORIDE 0.9% 1,000 ML IV SCH (08:50)
--- NOTE | 2024-03-16 09:31 | PN ---
PROGRESS NOTE DATE OF SERVICE: 03/15/2024 SUBJECTIVE: She is in ICU. A 64-year-old white female with severe respiratory distress, possible aspiration pneumonia, acute on chronic diastolic heart failure, came to the hospital, was intubated due to worsening breathing, possibly has aspiration pneumonia. Again, CT scan has been ordered of the chest. She remains in ICU on the vent. ICU notes were reviewed of [facility] in ICU and consulted Dr. Pathak for Infectious Disease for possible aspiration pneumonia, leukocytosis, etc. She is on Zosyn currently. She is on low-dose norepinephrine for vasopressor support. Nurse says she is holding her own. OBJECTIVE: CARDIOVASCULAR: S1, S2. LUNGS: Transmitted upper sounds. GI: Soft. HEMATOLOGY: Negative Homans. ASSESSMENT: Acute on chronic respiratory failure, possible aspiration pneumonia, chronic obstructive pulmonary disease, severe. She is type 1 diabetic. Continue Accu-Chek protocol, steroids, antibiotics breathing treatments. Prognosis guarded. She will be able to wean off the vent in the next 2 to 3 days. MMODL / KALIN: [id number] /
[2024-03-16 11:30] LABS: Glucose,Whole Blood 255 mg/dL (70-110)
--- NOTE | 2024-03-16 12:22 | P.PN ---
Subjective Progress Note Date: 03/16/24 Principal diagnosis: Acute hypoxic respiratory failure secondary to multifocal pneumonia and sepsis with septic shock Patient is a 64-year-old white female with past medical history significant for COPD, diabetes mellitus, hyperlipidemia, hypertension, current everyday smoker. Of note, she was recently hospitalized January 29 through February, for suspected aspiration pneumonia and exacerbation of the patient's known COPD. She was reportedly discharged to a local ECF on courses of Augmentin and Diflucan. She did have systemic candidemia this admission. It is my impression, the patient's functional status has been gradually declining. She has been fairly sedentary. She has a decubitus pressure ulcer as well as multiple lower extremity wounds. She also has a issue with urinary retention and a chronic indwelling urinary catheter. Patient returned to the emergency department yesterday afternoon reportedly with severe difficulty in breathing. She was initially trialed on BiPAP and then intubated in the emergency department. She is unable to provide any information at this time, and no family members are present. Chest CTA performed during her previous hospitalization was negative for any acute pulmonary emboli. There were small bilateral pleural effusions with adjacent atelectasis were demonstrated. A chest CTA was repeated in the emergency department this admission, demonstrating a nonocclusive right upper lobe pulmonary embolus. No evidence of right-sided heart strain. There is small left pleural effusion, with increasing airspace opacity in the left lower lobe and right upper lobe suspicious for pneumonia. No reported witnessed aspiration events. Postintubation chest x-ray shows the endotracheal tube 3.1 cm from the kendy. Nasogastric tube courses within the gastric fundus. Most recent ABGs have a PaO2 of 358, pCO2 of 37, pH of 7.49. This was done on ventilator settings including assist-control, respiratory rate 16, tidal volume 300, FiO2 100%, and PEEP of 5. FiO2 was previously dropped to 50%. Peak pressures are 16. She is breathing slightly above set rate. Sedated on propofol which is infusing at 30 mcg/kg/min. Normal saline also infusing at 130 MLS per hour. Blood pressure has remained hypotensive despite 2.5 L normal saline bolus. She has been started on low-dose norepinephrine which is infusing at 0.03 mcg/kg/min . Previously tachycardic, and this is improved. She has also since been started on the high intensity heparin protocol. Most recent APTT was subtherapeutic, and drip was a appropriately adjusted. Baseline CBC has a WBC count of 29.1, hemoglobin 14, hematocrit 42.9, platelets 591. Most recent CMP includes a sodium 136, potassium 2.7, chloride 103, serum bicarb 22, BUN 15, creatinine 0.27, glucose 317. Lactic acid was 4.9 and is down to 3.4. AST 29, ALT 31, ALP 327. Total bili 0.6. Troponin 0.021. NT proBNP 846. EKG done on arrival shows sinus tachycardia with a rate of 121 bpm and T wave inversion in leads II, III and aVF. Negative for influenza, RSV, COVID. Patient empirically covered on a combination of antibiotics including azithromycin and Zosyn. Afebrile. Prognosis is guarded. Patient was evaluated on 03/15/2024, patient is in the ICU, intubated and mechanically ventilated. Patient is on assist-control rate of 16 tidal volume 300 FiO2 45% and PEEP of 5 ABG showed a pO2 of 134 pCO2 42 pH of 7.47 hence FiO2 was cut down to 35%. Patient remains hemodynamically unstable requiring norepinephrine at 0.02 mcg/kg/min. IV fluid is at 130 cc/h however this will be cut down to KVO, and the patient will receive Lasix as she has received significant amount of fluids over the last 24 hours. Urine output is marginal 10 to 20 cc an hour. Lasix will be given. Remains on propofol at 30 mcg/kg/min she is also on heparin drip, and receiving vital AF at 10 cc/h. Patient is at least 4.6 L fluid balance positive. And she remains on Zosyn. Cultures from the BAL are pending but it seems to be gram-negative bacilli mostly. Patient is on Zosyn. Blood cultures are pending, negative so far. Patient is receiving trickle enteral feeding mostly because of increased residual. WBC count today is 21.8 hemoglobin 10.1. Platelets are 427 basic metabolic profile is normal re nal profile is normal Seen today on 03/16/2024, remains in the ICU intubated and mechanically ventil ated. Patient is on assist-control rate 16 tidal volume 300 FiO2 35% PEEP of 5 ABG showed a pO2 of 120 pCO2 45 pH of 7.45. Patient remains on IV fluid at 100 cc/h urine output is marginal at 30 to 40 cc/h. She is receiving vital AF at 30 cc/h. Patient had haemophilus influenza cultured from her BAL/sputum and she remains on Zosyn. Clinically she is making a dramatic improvement and her chest x-ray is also improving hence I am not changing her Zosyn for now. Patient has been off sedation since yesterday, she is not following any instructions, she opens her eyes, but seems to be generally weak, and still not quite ready to be extubated. Hence the plan is to keep her mechanically ventilated today, will reassess in the afternoon and hopefully her mental status may improve, then we could potentially check e weaning parameters and weaning trials. Hemoglobin is 10.4. Basic metabolic profile is normal and renal profile is normal WBC count today is 10.4. Objective - Vital Signs Vital signs: Vital Signs Temp 97.4 F L 03/16/24 08:00 Pulse 99 03/16/24 09:00 Resp 16 03/16/24 09:00 BP 150/85 03/16/24 09:00 Pulse Ox 100 03/16/24 08:00 FiO2 35 03/16/24 11:35 Intake & Output 03/15/24 03/16/24 03/16/24 18:59 06:59 18:59 Intake Total 794.636 680 370 Output Total 480 240 175 Balance 314.636 440 195 Weight 61.5 kg Intake: IV 225 220 10 Piperacillin-Tazobactam 3 100 .375 gm In Sodium Chloride 0.9% 100 ml @ 25 mls/hr IVPB Q8H [facility] Rx#: [id number] Sodium Chloride 0.9% 1, 225 120 10 000 ml @ 10 mls/hr IV . Q24H [facility] Rx#:[id number] Intake, IV Titration 299.636 100 300 Amount Heparin Sod,Pork in 0.45% 161.208 NaCl 25,000 unit In 0.45 % NaCl 1 250ml.bag @ 18 UNITS/KG/HR 8.573 mls/hr IV .Q24H [facility] Rx#: [id number] Norepinephrine 4 mg In 15.424 Sodium Chloride 0.9% 250 ml @ 0.03 MCG/KG/MIN 5. 444 mls/hr IV .Q24H [facility] Rx#:[id number] Piperacillin-Tazobactam 3 100 .375 gm In Sodium Chloride 0.9% 100 ml @ 25 mls/hr IVPB Q8H [facility] Rx#: [id number] Potassium Chloride 20 meq 100 In Water For Injection 1 100ml.bag @ 50 mls/hr IVPB ONCE ONE Rx#: [id number] Sodium Chloride 0.9% 1, 300 000 ml @ 100 mls/hr IV . Q10H [facility] Rx#:[id number] propofoL 1,000 mg In 23.004 Empty Bag 1 bag @ 15 MCG/ KG/MIN 4.286 mls/hr IV . [id number] [facility] Rx#:[id number] Tube Feeding 180 330 30 Other 90 30 30 Output: Urine 480 240 175 Other: Voiding Method Indwelling Catheter Indwelling Catheter Indwelling Catheter # Bowel Movements 1 ABP, PAP, CO, CI - Last Documented Arterial Blood Pressure 141/62 - Exam GENERAL EXAM: 64-year-old female intubated, mechanically ventilated, patient is frail, looks chronically ill. Off sedation HEAD: Normocephalic and atraumatic endotracheal tube and orogastric tube are intact. EYES: Normal reaction of pupils, equal size. NOSE: Clear with pink turbinates. THROAT: No erythema or exudates. NECK: No masses, no JVD. CHEST: No chest wall deformity. LUNGS: Minimal crackles at the bases no rhonchi no wheezes. CVS: Distant S1-S2, no S3 gallop, no murmur. ABDOMEN: Soft nontender no megaly no rebound no guarding. Bowel sounds. SKIN: Decubitus unstageable pressure injury. Bilateral lower extremity wounds. Multiple superficial ulcerations noted in both lower extremities. Most of them are weeping skin lesions CENTRAL NERVOUS SYSTEM: Opens eyes, does not follow any instructions, does not seem to comprehend EXTREMITIES: Bipedal edema with multiple superficial skin lesions/ulcerations noted bilaterally - Labs CBC & Chem 7: 03/16/24 04:40 03/16/24 04:40 Labs: Abnormal Lab Results - Last 24 Hours (Table) 03/15/24 03/15/24 03/16/24 Range/Units 17:32 22:34 04:40 WBC 20.2 H (3.8-10.6) k/uL RBC 3.06 L (3.80-5.40) m/uL Hgb 9.8 L (11.4-16.0) gm/dL Hct 32.0 L (34.0-46.0) % MCV 104.5 H (80.0-100.0) fL MCHC 30.7 L (31.0-37.0) g/dL Neutrophils # 19.3 H (1.3-7.7) k/uL Lymphocytes # 0.3 L (1.0-4.8) k/uL APTT (22.0-30.0) sec ABG pO2 (83-108) mmHg ABG HCO3 (21-25) mmol/L ABG Total CO2 (19-24) mmol/L ABG O2 Saturation (94-97) % Chloride (98-107) mmol/L BUN (7-17) mg/dL Creatinine (0.52-1.04) mg/dL Glucose (74-99) mg/dL POC Glucose (mg/dL) 210 H 216 H (70-110) mg/dL Calcium (8.4-10.2) mg/dL 03/16/24 03/16/24 03/16/24 Range/Units 04:40 04:40 05:57 WBC (3.8-10.6) k/uL RBC (3.80-5.40) m/uL Hgb (11.4-16.0) gm/dL Hct (34.0-46.0) % MCV (80.0-100.0) fL MCHC (31.0-37.0) g/dL Neutrophils # (1.3-7.7) k/uL Lymphocytes # (1.0-4.8) k/uL APTT 44.3 H (22.0-30.0) sec ABG pO2 120 H (83-108) mmHg ABG HCO3 31 H (21-25) mmol/L ABG Total CO2 32 H (19-24) mmol/L ABG O2 Saturation 99.9 H (94-97) % Chloride 108 H (98-107) mmol/L BUN 22 H (7-17) mg/dL Creatinine 0.28 L (0.52-1.04) mg/dL Glucose 193 H (74-99) mg/dL POC Glucose (mg/dL) (70-110) mg/dL Calcium 8.1 L (8.4-10.2) mg/dL 03/16/24 03/16/24 Range/Units 06:24 11:29 WBC (3.8-10.6) k/uL RBC (3.80-5.40) m/uL Hgb (11.4-16.0) gm/dL Hct (34.0-46.0) % MCV (80.0-100.0) fL MCHC (31.0-37.0) g/dL Neutrophils # (1.3-7.7) k/uL Lymphocytes # (1.0-4.8) k/uL APTT (22.0-30.0) sec ABG pO2 (83-108) mmHg ABG HCO3 (21-25) mmol/L ABG Total CO2 (19-24) mmol/L ABG O2 Saturation (94-97) % Chloride (98-107) mmol/L BUN (7-17) mg/dL Creatinine (0.52-1.04) mg/dL Glucose (74-99) mg/dL POC Glucose (mg/dL) 217 H 255 H (70-110) mg/dL Calcium (8.4-10.2) mg/dL Microbiology - Last 24 Hours (Table) 03/14/24 11:00 Gram Stain - Final Bronchial Washings - Random Bronchial Washings Culture - Final Haemophilus influenzae 03/13/24 20:22 Gram Stain - Final Sputum Sputum Culture - Final Haemophilus influenzae 03/13/24 17:12 Blood Culture - Preliminary Blood 03/13/24 17:00 Blood Culture - Preliminary Blood 03/14/24 11:00 Acid Fast Bacilli Smear - Preliminary Bronchial Washings - Random Assessment and Plan Assessment: Impression: Acute hypoxic respiratory failure requiring intubation mechanical ventilation, multifactorial. Acute multifocal pneumonia, secondary to Haemophilus influenzae Acute exacerbation of COPD Acute right upper lobe pulmonary embolism as noted on CT angiogram of the chest on admission Sepsis and septic shock secondary to pneumonia, off norepinephrine today Profound hypotension on admission requiring pressors, off pressors today Acute leukocytosis, slightly improved History of systemic candidemia, completed a course of Diflucan. Chronic urinary retention with indwelling Horn catheter History of constipation status post decompressive sigmoidoscopy in January 26, 2002 4 Type 2 diabetes Benign essential hypertension Dyslipidemia Severe protein calorie malnutrition Chronic decubitus pressure ulcer and multiple skin ulcerations involving both lower extremities. Oliguria but relatively normal functioning will try a Lasix challenge Acute metabolic encephalopathy Recommendation: Continue ventilatory support not quite ready for weaning or extubation at this point considering her mental status Continue nutritional support advance as tolerated patient is presently on trickle feeding mostly because of high residual Continue GI DVT prophylaxis, patient is on heparin as per protocol for acute PE Continue antibiotics/Zosyn, sputum positive for Haemophilus influenzae Intermittent gentle diuresis Keep sedation on hold for now until her mental status clears Continue wound care as per wound care recommendations Continue bronchodilators for underlying COPD and continue IV Solu-Medrol. Use pressors as needed Continue heparin as per protocol for pulmonary embolism Will continue to follow. Patient is critically ill. Critical care time is over 30-minute Time with Patient: Greater than 30
--- NOTE | 2024-03-16 13:10 | P.PN ---
Subjective Progress Note Date: 03/16/24 Patient is a 64-year-old white female with past medical history significant for COPD, diabetes mellitus, hyperlipidemia, hypertension, current everyday smoker. Of note, she was recently hospitalized January 29 through February, for suspected aspiration pneumonia and exacerbation of the patient's known COPD. She was reportedly discharged to a local ECF on courses of Augmentin and Diflucan. She has a decubitus pressure ulcer as well as multiple lower extremity wounds. She also has a issue with urinary retention and a chronic indwelling urinary catheter. Patient returned to the emergency department yesterday afternoon reportedly with severe difficulty in breathing. She was initially trialed on B iPAP and then intubated in the emergency department. She is unable to provide any information at this time, and no family members are present. Chest CTA performed during her previous hospitalization was negative for any acute pulmonary emboli. There were small bilateral pleural effusions with adjacent atelectasis were demonstrated. A chest CTA was repeated in the emergency department this admission, demonstrating a nonocclusive right upper lobe pulmonary embolus. No evidence of right-sided heart strain. There is small left pleural effusion, with increasing airspace opacity in the left lower lobe and right upper lobe suspicious for pneumonia. No reported witnessed aspiration events. Postintubation chest x-ray shows the endotracheal tube 3.1 cm from the kendy. Nasogastric tube courses within the gastric fundus. Most recent ABGs have a PaO2 of 358, pCO2 of 37, pH of 7.49. This was done on ventilator settings including assist-control, respiratory rate 16, tidal volume 300, FiO2 100%, and PEEP of 5. FiO2 was previously dropped to 50%. Peak pressures are 16. She is breathing slightly above set rate. Sedated on propofol which is infusing at 30 mcg/kg/min. Normal saline also infusing at 130 MLS per hour. Blood pressure has remained hypotensive despite 2.5 L normal saline bolus. She has been started on low-dose norepinephrine which is infusing at 0.03 mcg/kg/min. Previously tachycardic, and this is improved. She has also since been started on the high intensity heparin protocol. Most recent APTT was subtherapeutic, and drip was a appropriately adjusted. Baseline CBC has a WBC count of 29.1, hemoglobin 14, hematocrit 42.9, platelets 591. Most recent CMP includes a sodium 136, potassium 2.7, chloride 103, serum bicarb 22, BUN 15, creatinine 0.27, glucose 317. Lactic acid was 4.9 and is down to 3.4. AST 29, ALT 31, ALP 327. Total bili 0.6. Troponin 0.021. NT proBNP 846. EKG done on arrival shows sinus tachycardia with a rate of 121 bpm and T wave inversion in leads II, III and aVF. Negative for influenza, RSV, COVID. Patient empirically covered on a combination of antibiotics including azithromycin and Zosyn. Afebrile. Prognosis is guarded. 03/16. Dr. Palumbo took over care from Dr. Lloyd. Currently patient is intubated, off sedation, opening eyes. Patient is off pressors. REVIEW OF SYSTEMS: Cannot be obtained as patient is currently intubated PHYSICAL EXAMINATION: GENERAL: The patient is intubated HEENT: Pupils are round and equally reacting to light. EOMI. No scleral icterus. No conjunctival pallor. Normocephalic, atraumatic. No pharyngeal erythema. No thyromegaly. CARDIOVASCULAR: S1 and S2 present. No murmurs, rubs, or gallops. PULMONARY: Chest is clear to auscultation, no wheezing or crackles. ABDOMEN: Soft, nontender, nondistended, normoactive bowel sounds. No palpable organomegaly. MUSCULOSKELETAL: No joint swelling or deformity. EXTREMITIES: No cyanosis, clubbing, or pedal edema. NEUROLOGICAL: Intubated SKIN: No rashes. Assessment and plan Acute hypoxic respiratory failure requiring intubation mechanical ventilation, multifactorial. Acute multifocal pneumonia, secondary to Haemophilus influenzae Acute exacerbation of COPD Acute right upper lobe pulmonary embolism as noted on CT angiogram of the chest on admission Sepsis and septic shock secondary to pneumonia, Profound hypotension on admission requiring pressors, Acute leukocytosis History of systemic candidemia Chronic urinary retention with indwelling Horn catheter History of constipation status post decompressive sigmoidoscopy in January 26, 2002 4 Type 2 diabetes Benign essential hypertension Dyslipidemia Severe protein calorie malnutrition Chronic decubitus pressure ulcer and multiple skin ulcerations involving both lower extremities. Oliguria but relatively normal functioning will try a Lasix challenge Acute metabolic encephalopathy Monitor vital signs Monitor CBC Monitor CMP Continue telemetry monitoring Continue vent management Continue aggressive bronchopulmonary hygiene Follow-up on blood cultures Continue pharmacy dose heparin Continue IV Zosyn Critical care following ID follow Labs and medication were reviewed.. Continue same treatment. Continue with symptomatic treatment. Resume home medication. Monitor labs and vitals. DVT and GI prophylaxis. Further recommendations as per clinical course of the patient Dictation was produced using [employer] dictation software. please excuse any grammatical, word or spelling errors. Objective - Vital Signs Vital signs: Vital Signs Temp 97.4 F L 03/16/24 08:00 Pulse 100 03/16/24 13:01 Resp 12 03/16/24 12:00 BP 128/92 03/16/24 12:00 Pulse Ox 100 03/16/24 12:00 FiO2 35 03/16/24 12:00 Intake & Output 03/15/24 03/16/24 03/16/24 18:59 06:59 18:59 Intake Total 794.636 680 470 Output Total 480 240 215 Balance 314.636 440 255 Weight 61.5 kg Intake: IV 225 220 10 Piperacillin-Tazobactam 3 100 .375 gm In Sodium Chloride 0.9% 100 ml @ 25 mls/hr IVPB Q8H [facility] Rx#: [id number] Sodium Chloride 0.9% 1, 225 120 10 000 ml @ 10 mls/hr IV . Q24H [facility] Rx#:[id number] Intake, IV Titration 299.636 100 400 Amount Heparin Sod,Pork in 0.45% 161.208 NaCl 25,000 unit In 0.45 % NaCl 1 250ml.bag @ 18 UNITS/KG/HR 8.573 mls/hr IV .Q24H [facility] Rx#: [id number] Norepinephrine 4 mg In 15.424 Sodium Chloride 0.9% 250 ml @ 0.03 MCG/KG/MIN 5. 444 mls/hr IV .Q24H [facility] Rx#:[id number] Piperacillin-Tazobactam 3 100 .375 gm In Sodium Chloride 0.9% 100 ml @ 25 mls/hr IVPB Q8H [facility] Rx#: [id number] Potassium Chloride 20 meq 100 In Water For Injection 1 100ml.bag @ 50 mls/hr IVPB ONCE ONE Rx#: [id number] Sodium Chloride 0.9% 1, 400 000 ml @ 100 mls/hr IV . Q10H [facility] Rx#:[id number] propofoL 1,000 mg In 23.004 Empty Bag 1 bag @ 15 MCG/ KG/MIN 4.286 mls/hr IV . [id number] [facility] Rx#:[id number] Tube Feeding 180 330 30 Other 90 30 30 Output: Urine 480 240 215 Other: Voiding Method Indwelling Catheter Indwelling Catheter Indwelling Catheter # Bowel Movements 1 ABP, PAP, CO, CI - Last Documented Arterial Blood Pressure 168/81 - Labs CBC & Chem 7: 03/16/24 04:40 03/16/24 04:40 Labs: Abnormal Lab Results - Last 24 Hours (Table) 03/15/24 03/15/24 03/16/24 Range/Units 17:32 22:34 04:40 WBC 20.2 H (3.8-10.6) k/uL RBC 3.06 L (3.80-5.40) m/uL Hgb 9.8 L (11.4-16.0) gm/dL Hct 32.0 L (34.0-46.0) % MCV 104.5 H (80.0-100.0) fL MCHC 30.7 L (31.0-37.0) g/dL Neutrophils # 19.3 H (1.3-7.7) k/uL Lymphocytes # 0.3 L (1.0-4.8) k/uL APTT (22.0-30.0) sec ABG pO2 (83-108) mmHg ABG HCO3 (21-25) mmol/L ABG Total CO2 (19-24) mmol/L ABG O2 Saturation (94-97) % Chloride (98-107) mmol/L BUN (7-17) mg/dL Creatinine (0.52-1.04) mg/dL Glucose (74-99) mg/dL POC Glucose (mg/dL) 210 H 216 H (70-110) mg/dL Calcium (8.4-10.2) mg/dL 03/16/24 03/16/24 03/16/24 Range/Units 04:40 04:40 05:57 WBC (3.8-10.6) k/uL RBC (3.80-5.40) m/uL Hgb (11.4-16.0) gm/dL Hct (34.0-46.0) % MCV (80.0-100.0) fL MCHC (31.0-37.0) g/dL Neutrophils # (1.3-7.7) k/uL Lymphocytes # (1.0-4.8) k/uL APTT 44.3 H (22.0-30.0) sec ABG pO2 120 H (83-108) mmHg ABG HCO3 31 H (21-25) mmol/L ABG Total CO2 32 H (19-24) mmol/L ABG O2 Saturation 99.9 H (94-97) % Chloride 108 H (98-107) mmol/L BUN 22 H (7-17) mg/dL Creatinine 0.28 L (0.52-1.04) mg/dL Glucose 193 H (74-99) mg/dL POC Glucose (mg/dL) (70-110) mg/dL Calcium 8.1 L (8.4-10.2) mg/dL 03/16/24 03/16/24 Range/Units 06:24 11:29 WBC (3.8-10.6) k/uL RBC (3.80-5.40) m/uL Hgb (11.4-16.0) gm/dL Hct (34.0-46.0) % MCV (80.0-100.0) fL MCHC (31.0-37.0) g/dL Neutrophils # (1.3-7.7) k/uL Lymphocytes # (1.0-4.8) k/uL APTT (22.0-30.0) sec ABG pO2 (83-108) mmHg ABG HCO3 (21-25) mmol/L ABG Total CO2 (19-24) mmol/L ABG O2 Saturation (94-97) % Chloride (98-107) mmol/L BUN (7-17) mg/dL Creatinine (0.52-1.04) mg/dL Glucose (74-99) mg/dL POC Glucose (mg/dL) 217 H 255 H (70-110) mg/dL Calcium (8.4-10.2) mg/dL Microbiology - Last 24 Hours (Table) 03/14/24 11:00 Gram Stain - Final Bronchial Washings - Random Bronchial Washings Culture - Final Haemophilus influenzae 03/13/24 20:22 Gram Stain - Final Sputum Sputum Culture - Final Haemophilus influenzae 03/13/24 17:12 Blood Culture - Preliminary Blood 03/13/24 17:00 Blood Culture - Preliminary Blood 03/14/24 11:00 Acid Fast Bacilli Smear - Preliminary Bronchial Washings - Random
[2024-03-16 17:31] LABS: Glucose,Whole Blood 260 mg/dL (70-110)
[2024-03-16 23:15] LABS: Glucose,Whole Blood 122 mg/dL (70-110)
[2024-03-17 04:37] LABS: Glucose,Whole Blood 169 mg/dL (70-110)
[2024-03-17 04:54] LABS: Basophils % (A) 0 %; Eosinophils % (A) 0 %; HCT 33.7 % (34.0-46.0); HGB 10.5 gm/dL (11.4-16.0); Hypochromasia Moderate; Lymphocytes # (A) 0.3 k/uL (1.0-4.8); Lymphocytes % (A) 1 %; MCH 32.4 pg (25.0-35.0); MCHC 31.3 g/dL (31.0-37.0); MCV 103.8 fL (80.0-100.0); Macrocytosis Moderate; Monocytes # (A) 0.7 k/uL (0-1.0); Monocytes % (A) 3 %; Neutrophils # (A) 19.4 k/uL (1.3-7.7); Neutrophils % (A) 95 %; Platelet Count 363 k/uL (150-450); RBC 3.25 m/uL (3.80-5.40); RDW 14.9 % (11.5-15.5); WBC 20.4 k/uL (3.8-10.6)
[2024-03-17 05:12] LABS: African American GFR (CKD) >90 (>60 ml/min/1.73 sqM); Anion Gap 0 mmol/L; Blood Urea Nitrogen 24 mg/dL (7-17); Calcium 8.4 mg/dL (8.4-10.2); Carbon Dioxide 28 mmol/L (22-30); Chloride 110 mmol/L (98-107); Glucose 144 mg/dL (74-99); Non-African American GFR(CKD) >90 (>60 ml/min/1.73 sqM); Sodium 138 mmol/L (137-145)
[2024-03-17 06:01] LABS: ABG Base Excess 5.2 mmol/L; ABG HCO3 30 mmol/L (21-25); ABG PCO2 44 mmHg (35-45); ABG PH 7.44 (7.35-7.45); ABG PO2 131 mmHg (83-108); ABG TCO2 31 mmol/L (19-24); Allen Test Performed? Yes
[2024-03-17 10:01] LABS: ABG Base Excess 3.3 mmol/L; ABG HCO3 28 mmol/L (21-25); ABG Oxygen Saturation 99.6 % (94-97); ABG PCO2 44 mmHg (35-45); ABG PH 7.42 (7.35-7.45); ABG PO2 120 mmHg (83-108); ABG TCO2 30 mmol/L (19-24); Allen Test Performed? Yes
[2024-03-17 11:16] LABS: Glucose,Whole Blood 277 mg/dL (70-110)
--- NOTE | 2024-03-17 11:29 | P.PN ---
Subjective Progress Note Date: 03/17/24 Principal diagnosis: Acute hypoxic respiratory failure secondary to multifocal pneumonia and sepsis with septic shock Patient is a 64-year-old white female with past medical history significant for COPD, diabetes mellitus, hyperlipidemia, hypertension, current everyday smoker. Of note, she was recently hospitalized January 29 through February, for suspected aspiration pneumonia and exacerbation of the patient's known COPD. She was reportedly discharged to a local ECF on courses of Augmentin and Diflucan. She did have systemic candidemia this admission. It is my impression, the patient's functional status has been gradually declining. She has been fairly sedentary. She has a decubitus pressure ulcer as well as multiple lower extremity wounds. She also has a issue with urinary retention and a chronic indwelling urinary catheter. Patient returned to the emergency department yesterday afternoon reportedly with severe difficulty in breathing. She was initially trialed on BiPAP and then intubated in the emergency department. She is unable to provide any information at this time, and no family members are present. Chest CTA performed during her previous hospitalization was negative for any acute pulmonary emboli. There were small bilateral pleural effusions with adjacent atelectasis were demonstrated. A chest CTA was repeated in the emergency department this admission, demonstrating a nonocclusive right upper lobe pulmonary embolus. No evidence of right-sided heart strain. There is small left pleural effusion, with increasing airspace opacity in the left lower lobe and right upper lobe suspicious for pneumonia. No reported witnessed aspiration events. Postintubation chest x-ray shows the endotracheal tube 3.1 cm from the kendy. Nasogastric tube courses within the gastric fundus. Most recent ABGs have a PaO2 of 358, pCO2 of 37, pH of 7.49. This was done on ventilator settings including assist-control, respiratory rate 16, tidal volume 300, FiO2 100%, and PEEP of 5. FiO2 was previously dropped to 50%. Peak pressures are 16. She is breathing slightly above set rate. Sedated on propofol which is infusing at 30 mcg/kg/min. Normal saline also infusing at 130 MLS per hour. Blood pressure has remained hypotensive despite 2.5 L normal saline bolus. She has been started on low-dose norepinephrine which is infusing at 0.03 mcg/kg/min . Previously tachycardic, and this is improved. She has also since been started on the high intensity heparin protocol. Most recent APTT was subtherapeutic, and drip was a appropriately adjusted. Baseline CBC has a WBC count of 29.1, hemoglobin 14, hematocrit 42.9, platelets 591. Most recent CMP includes a sodium 136, potassium 2.7, chloride 103, serum bicarb 22, BUN 15, creatinine 0.27, glucose 317. Lactic acid was 4.9 and is down to 3.4. AST 29, ALT 31, ALP 327. Total bili 0.6. Troponin 0.021. NT proBNP 846. EKG done on arrival shows sinus tachycardia with a rate of 121 bpm and T wave inversion in leads II, III and aVF. Negative for influenza, RSV, COVID. Patient empirically covered on a combination of antibiotics including azithromycin and Zosyn. Afebrile. Prognosis is guarded. Patient was evaluated on 03/15/2024, patient is in the ICU, intubated and mechanically ventilated. Patient is on assist-control rate of 16 tidal volume 300 FiO2 45% and PEEP of 5 ABG showed a pO2 of 134 pCO2 42 pH of 7.47 hence FiO2 was cut down to 35%. Patient remains hemodynamically unstable requiring norepinephrine at 0.02 mcg/kg/min. IV fluid is at 130 cc/h however this will be cut down to KVO, and the patient will receive Lasix as she has received significant amount of fluids over the last 24 hours. Urine output is marginal 10 to 20 cc an hour. Lasix will be given. Remains on propofol at 30 mcg/kg/min she is also on heparin drip, and receiving vital AF at 10 cc/h. Patient is at least 4.6 L fluid balance positive. And she remains on Zosyn. Cultures from the BAL are pending but it seems to be gram-negative bacilli mostly. Patient is on Zosyn. Blood cultures are pending, negative so far. Patient is receiving trickle enteral feeding mostly because of increased residual. WBC count today is 21.8 hemoglobin 10.1. Platelets are 427 basic metabolic profile is normal re nal profile is normal Seen today on 03/16/2024, remains in the ICU intubated and mechanically ventil ated. Patient is on assist-control rate 16 tidal volume 300 FiO2 35% PEEP of 5 ABG showed a pO2 of 120 pCO2 45 pH of 7.45. Patient remains on IV fluid at 100 cc/h urine output is marginal at 30 to 40 cc/h. She is receiving vital AF at 30 cc/h. Patient had haemophilus influenza cultured from her BAL/sputum and she remains on Zosyn. Clinically she is making a dramatic improvement and her chest x-ray is also improving hence I am not changing her Zosyn for now. Patient has been off sedation since yesterday, she is not following any instructions, she opens her eyes, but seems to be generally weak, and still not quite ready to be extubated. Hence the plan is to keep her mechanically ventilated today, will reassess in the afternoon and hopefully her mental status may improve, then we could potentially check e weaning parameters and weaning trials. Hemoglobin is 10.4. Basic metabolic profile is normal and renal profile is normal WBC count today is 10.4. Reevaluate today, patient remains in the ICU intubated and mechanically ventilated. Patient remains off sedation for the last 24 hours, earlier today she was on assist-control mode of mechanical ventilation, however during my evaluation the patient was noted to be on CPAP. Patient has very low respiratory rate, about 8 breaths/min. However she is maintaining adequate tidal volume with each breath. Patient remains on antibiotics/Zosyn for her H. influenzae pneumonia, and ABG this morning showed a pO2 of 131 pCO2 44 pH of 7.44. Chest x-ray continues to show improvement in her bilateral multifocal pneumonia. Nutrition mederos patient remains on vital AF at 50 cc/h. Remains on heparin for acute pulmonary embolism involving the right upper lobe. WBC count today is 20.4 hemoglobin is 10.5. PTT is therapeutic at 49.6, basic metabolic profile is normal and renal profile is normal Objective - Vital Signs Vital signs: Vital Signs Temp 97.8 F 03/17/24 08:00 Pulse 96 03/17/24 11:00 Resp 7 L 03/17/24 11:00 BP 121/78 03/17/24 11:00 Pulse Ox 100 03/17/24 11:00 FiO2 35 03/17/24 11:13 Intake & Output 03/16/24 03/17/24 03/17/24 18:59 06:59 18:59 Intake Total 920 1775 705 Output Total 390 335 255 Balance 530 1440 450 Intake: IV 10 200 400 Piperacillin-Tazobactam 3 200 .375 gm In Sodium Chloride 0.9% 100 ml @ 25 mls/hr IVPB Q8H [facility] Rx#: [id number] Sodium Chloride 0.9% 1, 10 400 000 ml @ 10 mls/hr IV . Q24H [facility] Rx#:[id number] Intake, IV Titration 850 1100 100 Amount Heparin Sod,Pork in 0.45% 250 NaCl 25,000 unit In 0.45 % NaCl 1 250ml.bag @ 18 UNITS/KG/HR 8.573 mls/hr IV .Q24H [facility] Rx#: [id number] Sodium Chloride 0.9% 1, 600 1100 100 000 ml @ 100 mls/hr IV . Q10H [facility] Rx#:[id number] Tube Feeding 30 385 175 Other 30 90 30 Output: Urine 390 335 255 Other: Voiding Method Indwelling Catheter Indwelling Catheter Indwelling Catheter # Bowel Movements 1 ABP, PAP, CO, CI - Last Documented Arterial Blood Pressure 151/69 - Exam GENERAL EXAM: 64-year-old female intubated, mechanically ventilated, patient is frail, looks chronically ill. HEAD: Normocephalic and atraumatic endotracheal tube and orogastric tube are intact. EYES: Normal reaction of pupils, equal size. NOSE: Clear with pink turbinates. THROAT: No erythema or exudates. NECK: No masses, no JVD. CHEST: No chest wall deformity. LUNGS: Minimal crackles at the bases no rhonchi no wheezes. CVS: Distant S1-S2, no S3 gallop, no murmur. ABDOMEN: Soft nontender no megaly no rebound no guarding. Bowel sounds. SKIN: Decubitus unstageable pressure injury. Bilateral lower extremity wounds. Multiple superficial ulcerations noted in both lower extremities. Most of them are weeping skin lesions CENTRAL NERVOUS SYSTEM: Patient is arousable, opens eyes, follows instructions like squeezing hands and wiggling toes. She seems to be generally weak but EXTREMITIES: Bipedal edema with multiple superficial skin lesions/ulcerations noted bilaterally - Labs CBC & Chem 7: 03/17/24 04:30 03/17/24 04:30 Labs: Abnormal Lab Results - Last 24 Hours (Table) 03/16/24 03/16/24 03/16/24 Range/Units 11:29 17:29 23:13 WBC (3.8-10.6) k/uL RBC (3.80-5.40) m/uL Hgb (11.4-16.0) gm/dL Hct (34.0-46.0) % MCV (80.0-100.0) fL Neutrophils # (1.3-7.7) k/uL Lymphocytes # (1.0-4.8) k/uL APTT (22.0-30.0) sec ABG pO2 (83-108) mmHg ABG HCO3 (21-25) mmol/L ABG Total CO2 (19-24) mmol/L ABG O2 Saturation (94-97) % Chloride (98-107) mmol/L BUN (7-17) mg/dL Creatinine (0.52-1.04) mg/dL Glucose (74-99) mg/dL POC Glucose (mg/dL) 255 H 260 H 122 H (70-110) mg/dL 03/17/24 03/17/24 03/17/24 Range/Units 04:30 04:30 04:36 WBC 20.4 H (3.8-10.6) k/uL RBC 3.25 L (3.80-5.40) m/uL Hgb 10.5 L (11.4-16.0) gm/dL Hct 33.7 L (34.0-46.0) % MCV 103.8 H (80.0-100.0) fL Neutrophils # 19.4 H (1.3-7.7) k/uL Lymphocytes # 0.3 L (1.0-4.8) k/uL APTT (22.0-30.0) sec ABG pO2 (83-108) mmHg ABG HCO3 (21-25) mmol/L ABG Total CO2 (19-24) mmol/L ABG O2 Saturation (94-97) % Chloride 110 H (98-107) mmol/L BUN 24 H (7-17) mg/dL Creatinine 0.22 L (0.52-1.04) mg/dL Glucose 144 H (74-99) mg/dL POC Glucose (mg/dL) 169 H (70-110) mg/dL 03/17/24 03/17/24 03/17/24 Range/Units 05:56 06:51 09:50 WBC (3.8-10.6) k/uL RBC (3.80-5.40) m/uL Hgb (11.4-16.0) gm/dL Hct (34.0-46.0) % MCV (80.0-100.0) fL Neutrophils # (1.3-7.7) k/uL Lymphocytes # (1.0-4.8) k/uL APTT 49.6 H (22.0-30.0) sec ABG pO2 131 H 120 H (83-108) mmHg ABG HCO3 30 H 28 H (21-25) mmol/L ABG Total CO2 31 H 30 H (19-24) mmol/L ABG O2 Saturation 100.0 H 99.6 H (94-97) % Chloride (98-107) mmol/L BUN (7-17) mg/dL Creatinine (0.52-1.04) mg/dL Glucose (74-99) mg/dL POC Glucose (mg/dL) (70-110) mg/dL 03/17/24 Range/Units 11:15 WBC (3.8-10.6) k/uL RBC (3.80-5.40) m/uL Hgb (11.4-16.0) gm/dL Hct (34.0-46.0) % MCV (80.0-100.0) fL Neutrophils # (1.3-7.7) k/uL Lymphocytes # (1.0-4.8) k/uL APTT (22.0-30.0) sec ABG pO2 (83-108) mmHg ABG HCO3 (21-25) mmol/L ABG Total CO2 (19-24) mmol/L ABG O2 Saturation (94-97) % Chloride (98-107) mmol/L BUN (7-17) mg/dL Creatinine (0.52-1.04) mg/dL Glucose (74-99) mg/dL POC Glucose (mg/dL) 277 H (70-110) mg/dL Microbiology - Last 24 Hours (Table) 03/13/24 17:12 Blood Culture - Preliminary Blood 03/13/24 17:00 Blood Culture - Preliminary Blood 03/14/24 11:00 Gram Stain - Final Bronchial Washings - Random Bronchial Washings Culture - Final Haemophilus influenzae 03/13/24 20:22 Gram Stain - Final Sputum Sputum Culture - Final Haemophilus influenzae Assessment and Plan Assessment: Impression: Acute hypoxic respiratory failure requiring intubation mechanical ventilation, multifactorial. Acute multifocal pneumonia, secondary to Haemophilus influenzae Acute exacerbation of COPD Acute right upper lobe pulmonary embolism as noted on CT angiogram of the chest on admission Sepsis and septic shock secondary to pneumonia, off norepinephrine today Profound hypotension on admission requiring pressors, off pressors today Acute leukocytosis, slightly improved History of systemic candidemia, completed a course of Diflucan. Chronic urinary retention with indwelling Horn catheter History of constipation status post decompressive sigmoidoscopy in January 26, 2002 4 Type 2 diabetes Benign essential hypertension Dyslipidemia Severe protein calorie malnutrition Chronic decubitus pressure ulcer and multiple skin ulcerations involving both lower extremities. Oliguria but relatively normal functioning will try a Lasix challenge Acute metabolic encephalopathy Recommendation: Continue ventilatory support, however will continue the patient on pressure support of 8 and CPAP, repeat ABG in 2 hours, if reasonable may consider extubation today. Continue nutritional support, patient is on enteral feeding Continue GI DVT prophylaxis, patient is on heparin as per protocol for acute PE Continue antibiotics/Zosyn, sputum positive for Haemophilus influenzae Keep sedation on hold for now until her mental status clears Continue wound care as per wound care recommendations Continue bronchodilators for underlying COPD and continue IV Solu-Medrol. Continue heparin as per protocol for pulmonary embolism Remains critically ill, even if extubated, the patient has a relatively high risk of reintubation considering her overall clinical status. Critical care time is over 30-minute Time with Patient: Greater than 30
--- NOTE | 2024-03-17 11:32 | XR ---
EXAMINATION TYPE: XR chest 1V portable DATE OF EXAM: 03/17/2024 4:41 AM CLINICAL INDICATION:Female, 64 years old with history of Tube placement; [facility] COMPARISON: Chest radiographs from 03/16/2024. TECHNIQUE: XR chest 1V portable Frontal view of the chest. FINDINGS: Lungs/Pleura: Blunting of left costophrenic angle. There is no evidence of right pleural effusion, fo leanne consolidation, or pneumothorax. Pulmonary vascularity: Unremarkable. Heart/mediastinum: Cardiomediastinal silhouette is unremarkable. Musculoskeletal: No acute osseous pathology. Other findings: None Lines/Tubes: Endotracheal tube with distal tip 7.8 cm above the kendy. Nasogastric tube with its distal tip and side-port projecting under the diaphragm. IMPRESSION: Advancement of endotracheal tube 5.0 cm recommended for placement. Small left pleural effusion.
--- NOTE | 2024-03-17 13:15 | P.PN ---
Subjective Progress Note Date: 03/17/24 Patient is a 64-year-old white female with past medical history significant for COPD, diabetes mellitus, hyperlipidemia, hypertension, current everyday smoker. Of note, she was recently hospitalized January 29 through February, for suspected aspiration pneumonia and exacerbation of the patient's known COPD. She was reportedly discharged to a local ECF on courses of Augmentin and Diflucan. She has a decubitus pressure ulcer as well as multiple lower extremity wounds. She also has a issue with urinary retention and a chronic indwelling urinary catheter. Patient returned to the emergency department yesterday afternoon reportedly with severe difficulty in breathing. She was initially trialed on B iPAP and then intubated in the emergency department. She is unable to provide any information at this time, and no family members are present. Chest CTA performed during her previous hospitalization was negative for any acute pulmonary emboli. There were small bilateral pleural effusions with adjacent atelectasis were demonstrated. A chest CTA was repeated in the emergency department this admission, demonstrating a nonocclusive right upper lobe pulmonary embolus. No evidence of right-sided heart strain. There is small left pleural effusion, with increasing airspace opacity in the left lower lobe and right upper lobe suspicious for pneumonia. No reported witnessed aspiration events. Postintubation chest x-ray shows the endotracheal tube 3.1 cm from the kendy. Nasogastric tube courses within the gastric fundus. Most recent ABGs have a PaO2 of 358, pCO2 of 37, pH of 7.49. This was done on ventilator settings including assist-control, respiratory rate 16, tidal volume 300, FiO2 100%, and PEEP of 5. FiO2 was previously dropped to 50%. Peak pressures are 16. She is breathing slightly above set rate. Sedated on propofol which is infusing at 30 mcg/kg/min. Normal saline also infusing at 130 MLS per hour. Blood pressure has remained hypotensive despite 2.5 L normal saline bolus. She has been started on low-dose norepinephrine which is infusing at 0.03 mcg/kg/min. Previously tachycardic, and this is improved. She has also since been started on the high intensity heparin protocol. Most recent APTT was subtherapeutic, and drip was a appropriately adjusted. Baseline CBC has a WBC count of 29.1, hemoglobin 14, hematocrit 42.9, platelets 591. Most recent CMP includes a sodium 136, potassium 2.7, chloride 103, serum bicarb 22, BUN 15, creatinine 0.27, glucose 317. Lactic acid was 4.9 and is down to 3.4. AST 29, ALT 31, ALP 327. Total bili 0.6. Troponin 0.021. NT proBNP 846. EKG done on arrival shows sinus tachycardia with a rate of 121 bpm and T wave inversion in leads II, III and aVF. Negative for influenza, RSV, COVID. Patient empirically covered on a combination of antibiotics including azithromycin and Zosyn. Afebrile. Prognosis is guarded. 03/16. Dr. Palumbo took over care from Dr. Lloyd. Currently patient is intubated, off sedation, opening eyes. Patient is off pressors. 03/17. Patient seen and examined. Currently resting, was extubated this morning. Currently on BiPAP, not very alert. Blood work this morning showed WBC 20.4, hemoglobin 10.5, platelet count 363, sodium 138, potassium 4, BUN 24, creatinine 0.22 REVIEW OF SYSTEMS: Cannot be obtained as patient is lethargic PHYSICAL EXAMINATION: GENERAL: The patient is lethargic HEENT: Pupils are round and equally reacting to light. EOMI. No scleral icterus. No conjunctival pallor. Normocephalic, atraumatic. No pharyngeal erythema. No thyromegaly. CARDIOVASCULAR: S1 and S2 present. No murmurs, rubs, or gallops. PULMONARY: Chest is clear to auscultation, no wheezing or crackles. ABDOMEN: Soft, nontender, nondistended, normoactive bowel sounds. No palpable organomegaly. MUSCULOSKELETAL: No joint swelling or deformity. EXTREMITIES: No cyanosis, clubbing, or pedal edema. NEUROLOGICAL: Lethargic, moving all extremities SKIN: No rashes. Assessment and plan Acute hypoxic respiratory failure requiring intubation mechanical ventilation, multifactorial. Acute multifocal pneumonia, secondary to Haemophilus influenzae Acute exacerbation of COPD Acute right upper lobe pulmonary embolism as noted on CT angiogram of the chest on admission Sepsis and septic shock secondary to pneumonia, Profound hypotension on admission requiring pressors, Acute leukocytosis History of systemic candidemia Chronic urinary retention with indwelling Horn catheter History of constipation status post decompressive sigmoidoscopy in January 26, 2002 4 Type 2 diabetes Benign essential hypertension Dyslipidemia Severe protein calorie malnutrition Chronic decubitus pressure ulcer and multiple skin ulcerations involving both lower extremities. Oliguria but relatively normal functioning will try a Lasix challenge Acute metabolic encephalopathy Monitor vital signs Monitor CBC Monitor CMP Continue telemetry monitoring Continue BiPAP Continue aggressive bronchopulmonary hygiene Follow-up on blood cultures Continue pharmacy dose heparin Continue IV Zosyn Critical care following ID following Labs and medication were reviewed.. Continue same treatment. Continue with symptomatic treatment. Resume home medication. Monitor labs and vitals. DVT and GI prophylaxis. Further recommendations as per clinical course of the patient Dictation was produced using [employer] dictation software. please excuse any grammatical, word or spelling errors. Objective - Vital Signs Vital signs: Vital Signs Temp 97.8 F 03/17/24 12:00 Pulse 107 H 03/17/24 12:36 Resp 12 03/17/24 12:00 BP 147/109 03/17/24 12:00 Pulse Ox 100 03/17/24 12:00 FiO2 35 03/17/24 12:00 Intake & Output 03/16/24 03/17/24 03/17/24 18:59 06:59 18:59 Intake Total 920 1775 1005 Output Total 390 335 305 Balance 530 1440 700 Intake: IV 10 200 700 Piperacillin-Tazobactam 3 200 100 .375 gm In Sodium Chloride 0.9% 100 ml @ 25 mls/hr IVPB Q8H [facility] Rx#: [id number] Sodium Chloride 0.9% 1, 10 600 000 ml @ 10 mls/hr IV . Q24H [facility] Rx#:[id number] Intake, IV Titration 850 1100 100 Amount Heparin Sod,Pork in 0.45% 250 NaCl 25,000 unit In 0.45 % NaCl 1 250ml.bag @ 18 UNITS/KG/HR 8.573 mls/hr IV .Q24H [facility] Rx#: [id number] Sodium Chloride 0.9% 1, 600 1100 100 000 ml @ 100 mls/hr IV . Q10H [facility] Rx#:[id number] Tube Feeding 30 385 175 Other 30 90 30 Output: Urine 390 335 305 Other: Voiding Method Indwelling Catheter Indwelling Catheter Indwelling Catheter # Bowel Movements 1 ABP, PAP, CO, CI - Last Documented Arterial Blood Pressure 141/71 - Labs CBC & Chem 7: 03/17/24 04:30 03/17/24 04:30 Labs: Abnormal Lab Results - Last 24 Hours (Table) 03/16/24 03/16/24 03/17/24 Range/Units 17:29 23:13 04:30 WBC 20.4 H (3.8-10.6) k/uL RBC 3.25 L (3.80-5.40) m/uL Hgb 10.5 L (11.4-16.0) gm/dL Hct 33.7 L (34.0-46.0) % MCV 103.8 H (80.0-100.0) fL Neutrophils # 19.4 H (1.3-7.7) k/uL Lymphocytes # 0.3 L (1.0-4.8) k/uL APTT (22.0-30.0) sec ABG pO2 (83-108) mmHg ABG HCO3 (21-25) mmol/L ABG Total CO2 (19-24) mmol/L ABG O2 Saturation (94-97) % Chloride (98-107) mmol/L BUN (7-17) mg/dL Creatinine (0.52-1.04) mg/dL Glucose (74-99) mg/dL POC Glucose (mg/dL) 260 H 122 H (70-110) mg/dL 03/17/24 03/17/24 03/17/24 Range/Units 04:30 04:36 05:56 WBC (3.8-10.6) k/uL RBC (3.80-5.40) m/uL Hgb (11.4-16.0) gm/dL Hct (34.0-46.0) % MCV (80.0-100.0) fL Neutrophils # (1.3-7.7) k/uL Lymphocytes # (1.0-4.8) k/uL APTT (22.0-30.0) sec ABG pO2 131 H (83-108) mmHg ABG HCO3 30 H (21-25) mmol/L ABG Total CO2 31 H (19-24) mmol/L ABG O2 Saturation 100.0 H (94-97) % Chloride 110 H (98-107) mmol/L BUN 24 H (7-17) mg/dL Creatinine 0.22 L (0.52-1.04) mg/dL Glucose 144 H (74-99) mg/dL POC Glucose (mg/dL) 169 H (70-110) mg/dL 03/17/24 03/17/24 03/17/24 Range/Units 06:51 09:50 11:15 WBC (3.8-10.6) k/uL RBC (3.80-5.40) m/uL Hgb (11.4-16.0) gm/dL Hct (34.0-46.0) % MCV (80.0-100.0) fL Neutrophils # (1.3-7.7) k/uL Lymphocytes # (1.0-4.8) k/uL APTT 49.6 H (22.0-30.0) sec ABG pO2 120 H (83-108) mmHg ABG HCO3 28 H (21-25) mmol/L ABG Total CO2 30 H (19-24) mmol/L ABG O2 Saturation 99.6 H (94-97) % Chloride (98-107) mmol/L BUN (7-17) mg/dL Creatinine (0.52-1.04) mg/dL Glucose (74-99) mg/dL POC Glucose (mg/dL) 277 H (70-110) mg/dL Microbiology - Last 24 Hours (Table) 03/13/24 17:12 Blood Culture - Preliminary Blood 03/13/24 17:00 Blood Culture - Preliminary Blood 03/14/24 11:00 Gram Stain - Final Bronchial Washings - Random Bronchial Washings Culture - Final Haemophilus influenzae
--- NOTE | 2024-03-17 16:45 | P.PN ---
Subjective Progress Note Date: 03/16/24 Principal diagnosis: Reason for follow-up is pneumonia Patient is a 64-year-old female with a past medical history significant for diabetes mellitus hypertension hyperlipidemia COPD recently prolonged hospital stay for pneumonia patient was brought into the [facility] ER for evaluation of difficulty breathing, the patient had worsening respiratory status requiring the patient to admission to the ICU. On today's evaluation that is 03/16/2024, Patient is afebrile this morning patient remains to intubated on the vent FiO2 is currently stable at 35. No significant purulent secretions through the ET patient is hemodynamically stable no diarrhea and the change reported by the nursing staff. Patient white count is 20.2, creatinine is 0.28 Objective - Vital Signs Vital signs: Vital Signs Temp 97.4 F L 03/16/24 08:00 Pulse 102 H 03/16/24 12:00 Resp 12 03/16/24 12:00 BP 128/92 03/16/24 12:00 Pulse Ox 100 03/16/24 12:00 FiO2 35 03/16/24 12:00 Intake & Output 03/15/24 03/16/24 03/16/24 18:59 06:59 18:59 Intake Total 794.636 680 470 Output Total 480 240 215 Balance 314.636 440 255 Weight 61.5 kg Intake: IV 225 220 10 Piperacillin-Tazobactam 3 100 .375 gm In Sodium Chloride 0.9% 100 ml @ 25 mls/hr IVPB Q8H [facility] Rx#: [id number] Sodium Chloride 0.9% 1, 225 120 10 000 ml @ 10 mls/hr IV . Q24H [facility] Rx#:[id number] Intake, IV Titration 299.636 100 400 Amount Heparin Sod,Pork in 0.45% 161.208 NaCl 25,000 unit In 0.45 % NaCl 1 250ml.bag @ 18 UNITS/KG/HR 8.573 mls/hr IV .Q24H [facility] Rx#: [id number] Norepinephrine 4 mg In 15.424 Sodium Chloride 0.9% 250 ml @ 0.03 MCG/KG/MIN 5. 444 mls/hr IV .Q24H [facility] Rx#:[id number] Piperacillin-Tazobactam 3 100 .375 gm In Sodium Chloride 0.9% 100 ml @ 25 mls/hr IVPB Q8H [facility] Rx#: [id number] Potassium Chloride 20 meq 100 In Water For Injection 1 100ml.bag @ 50 mls/hr IVPB ONCE ONE Rx#: [id number] Sodium Chloride 0.9% 1, 400 000 ml @ 100 mls/hr IV . Q10H [facility] Rx#:[id number] propofoL 1,000 mg In 23.004 Empty Bag 1 bag @ 15 MCG/ KG/MIN 4.286 mls/hr IV . [id number] [facility] Rx#:[id number] Tube Feeding 180 330 30 Other 90 30 30 Output: Urine 480 240 215 Other: Voiding Method Indwelling Catheter Indwelling Catheter Indwelling Catheter # Bowel Movements 1 ABP, PAP, CO, CI - Last Documented Arterial Blood Pressure 168/81 - Exam GENERAL DESCRIPTION: Middle-aged female intubated on the vent RESPIRATORY SYSTEM: Unlabored breathing , decreased breath sounds at bases HEART: S1 S2 regular rate and rhythm , ABDOMEN: Soft , no tenderness EXTREMITIES: No edema feet - Labs CBC & Chem 7: 03/17/24 04:30 03/17/24 04:30 Labs: Abnormal Lab Results - Last 24 Hours (Table) 03/15/24 03/15/24 03/16/24 Range/Units 17:32 22:34 04:40 WBC 20.2 H (3.8-10.6) k/uL RBC 3.06 L (3.80-5.40) m/uL Hgb 9.8 L (11.4-16.0) gm/dL Hct 32.0 L (34.0-46.0) % MCV 104.5 H (80.0-100.0) fL MCHC 30.7 L (31.0-37.0) g/dL Neutrophils # 19.3 H (1.3-7.7) k/uL Lymphocytes # 0.3 L (1.0-4.8) k/uL APTT (22.0-30.0) sec ABG pO2 (83-108) mmHg ABG HCO3 (21-25) mmol/L ABG Total CO2 (19-24) mmol/L ABG O2 Saturation (94-97) % Chloride (98-107) mmol/L BUN (7-17) mg/dL Creatinine (0.52-1.04) mg/dL Glucose (74-99) mg/dL POC Glucose (mg/dL) 210 H 216 H (70-110) mg/dL Calcium (8.4-10.2) mg/dL 03/16/24 03/16/24 03/16/24 Range/Units 04:40 04:40 05:57 WBC (3.8-10.6) k/uL RBC (3.80-5.40) m/uL Hgb (11.4-16.0) gm/dL Hct (34.0-46.0) % MCV (80.0-100.0) fL MCHC (31.0-37.0) g/dL Neutrophils # (1.3-7.7) k/uL Lymphocytes # (1.0-4.8) k/uL APTT 44.3 H (22.0-30.0) sec ABG pO2 120 H (83-108) mmHg ABG HCO3 31 H (21-25) mmol/L ABG Total CO2 32 H (19-24) mmol/L ABG O2 Saturation 99.9 H (94-97) % Chloride 108 H (98-107) mmol/L BUN 22 H (7-17) mg/dL Creatinine 0.28 L (0.52-1.04) mg/dL Glucose 193 H (74-99) mg/dL POC Glucose (mg/dL) (70-110) mg/dL Calcium 8.1 L (8.4-10.2) mg/dL 03/16/24 03/16/24 Range/Units 06:24 11:29 WBC (3.8-10.6) k/uL RBC (3.80-5.40) m/uL Hgb (11.4-16.0) gm/dL Hct (34.0-46.0) % MCV (80.0-100.0) fL MCHC (31.0-37.0) g/dL Neutrophils # (1.3-7.7) k/uL Lymphocytes # (1.0-4.8) k/uL APTT (22.0-30.0) sec ABG pO2 (83-108) mmHg ABG HCO3 (21-25) mmol/L ABG Total CO2 (19-24) mmol/L ABG O2 Saturation (94-97) % Chloride (98-107) mmol/L BUN (7-17) mg/dL Creatinine (0.52-1.04) mg/dL Glucose (74-99) mg/dL POC Glucose (mg/dL) 217 H 255 H (70-110) mg/dL Calcium (8.4-10.2) mg/dL Microbiology - Last 24 Hours (Table) 03/14/24 11:00 Gram Stain - Final Bronchial Washings - Random Bronchial Washings Culture - Final Haemophilus influenzae 03/13/24 20:22 Gram Stain - Final Sputum Sputum Culture - Final Haemophilus influenzae 03/13/24 17:12 Blood Culture - Preliminary Blood 03/13/24 17:00 Blood Culture - Preliminary Blood 03/14/24 11:00 Acid Fast Bacilli Smear - Preliminary Bronchial Washings - Random Assessment and Plan (1) Pneumonia Current Visit: Yes Status: Acute Code(s): J18.9 - PNEUMONIA, UNSPECIFIED ORGANISM SNOMED Code(s): 950863070 (2) Sepsis Current Visit: Yes Status: Acute Code(s): A41.9 - SEPSIS, UNSPECIFIED ORGANISM SNOMED Code(s): 02428410 (3) Type 2 diabetes mellitus with other skin ulcer Current Visit: Yes Status: Acute Code(s): E11.622 - TYPE 2 DIABETES MELLITUS WITH OTHER SKIN ULCER; L98.499 - NON-PRESSURE CHRONIC ULCER OF SKIN OF SITES W UNSP SEVERITY SNOMED Code(s): 518065863 (4) Stage III pressure ulcer of sacral region Current Visit: No Status: Acute Code(s): L89.153 - PRESSURE ULCER OF SACRAL REGION, STAGE 3 SNOMED Code(s): 03059002921245 Plan: 1patient presented to hospital with sepsis in this patient who did have a low- grade fever tachycardia elevated white count source is multifactorial in this patient who did have a component of pneumonia as well as PE keeping in mind the patient has been out of the hospital we need to cover for the resistant gram- negative 2-patient did have a superficial ulcer involving lower extremities likely from ruptured blister with no evidence of any cellulitis 3-stage III pressure ulcer to the sacral area with slough tissue but no evidence of any cellulitis 4-patient to continue with Zosyn 3.37 g every 8 hours while waiting for the culture to finalize 5 local wound care to continue per the wound care team Dictation was produced using [employer] software. please excuse any grammatical, word or spelling errors. Time with Patient: Less than 30
--- NOTE | 2024-03-17 16:46 | P.PN ---
Subjective Progress Note Date: 03/17/24 Principal diagnosis: Reason for follow-up is pneumonia Patient is a 64-year-old female with a past medical history significant for diabetes mellitus hypertension hyperlipidemia COPD recently prolonged hospital stay for pneumonia patient was brought into the [facility] ER for evaluation of difficulty breathing, the patient had worsening respiratory status requiring the patient to admission to the ICU. On today's evaluation that is 03/17/2024,the patient has been extubated this morning patient is slightly lethargic on BiPAP unable to provide any history pat ient is hemodynamically stable not requiring any pressor support no vomiting diarrhea or any other changes reported by the nursing staff. Patient white count is 20.4, creatinine 0.22, sputum and blood culture with Haemophilus influenzae Objective - Vital Signs Vital signs: Vital Signs Temp 97.8 F 03/17/24 12:00 Pulse 93 03/17/24 15:00 Resp 16 03/17/24 15:00 BP 115/86 03/17/24 15:00 Pulse Ox 100 03/17/24 15:00 FiO2 35 03/17/24 12:00 Intake & Output 03/16/24 03/17/24 03/17/24 18:59 06:59 18:59 Intake Total 920 1775 1205 Output Total 390 335 380 Balance 530 1440 825 Weight 61.5 kg Intake: IV 10 200 900 Piperacillin-Tazobactam 3 200 100 .375 gm In Sodium Chloride 0.9% 100 ml @ 25 mls/hr IVPB Q8H [facility] Rx#: [id number] Sodium Chloride 0.9% 1, 10 800 000 ml @ 10 mls/hr IV . Q24H [facility] Rx#:[id number] Intake, IV Titration 850 1100 100 Amount Heparin Sod,Pork in 0.45% 250 NaCl 25,000 unit In 0.45 % NaCl 1 250ml.bag @ 18 UNITS/KG/HR 8.573 mls/hr IV .Q24H [facility] Rx#: [id number] Sodium Chloride 0.9% 1, 600 1100 100 000 ml @ 100 mls/hr IV . Q10H [facility] Rx#:[id number] Tube Feeding 30 385 175 Other 30 90 30 Output: Urine 390 335 380 Other: Voiding Method Indwelling Catheter Indwelling Catheter Indwelling Catheter # Bowel Movements 1 ABP, PAP, CO, CI - Last Documented Arterial Blood Pressure 146/75 - Exam GENERAL DESCRIPTION: Middle-aged female lying in bed in no distress RESPIRATORY SYSTEM: Unlabored breathing , decreased breath sounds at bases HEART: S1 S2 regular rate and rhythm , ABDOMEN: Soft , no tenderness EXTREMITIES: No edema feet - Labs CBC & Chem 7: 03/17/24 04:30 03/17/24 04:30 Labs: Abnormal Lab Results - Last 24 Hours (Table) 03/16/24 03/16/24 03/17/24 Range/Units 17:29 23:13 04:30 WBC 20.4 H (3.8-10.6) k/uL RBC 3.25 L (3.80-5.40) m/uL Hgb 10.5 L (11.4-16.0) gm/dL Hct 33.7 L (34.0-46.0) % MCV 103.8 H (80.0-100.0) fL Neutrophils # 19.4 H (1.3-7.7) k/uL Lymphocytes # 0.3 L (1.0-4.8) k/uL APTT (22.0-30.0) sec ABG pO2 (83-108) mmHg ABG HCO3 (21-25) mmol/L ABG Total CO2 (19-24) mmol/L ABG O2 Saturation (94-97) % Chloride (98-107) mmol/L BUN (7-17) mg/dL Creatinine (0.52-1.04) mg/dL Glucose (74-99) mg/dL POC Glucose (mg/dL) 260 H 122 H (70-110) mg/dL 03/17/24 03/17/24 03/17/24 Range/Units 04:30 04:36 05:56 WBC (3.8-10.6) k/uL RBC (3.80-5.40) m/uL Hgb (11.4-16.0) gm/dL Hct (34.0-46.0) % MCV (80.0-100.0) fL Neutrophils # (1.3-7.7) k/uL Lymphocytes # (1.0-4.8) k/uL APTT (22.0-30.0) sec ABG pO2 131 H (83-108) mmHg ABG HCO3 30 H (21-25) mmol/L ABG Total CO2 31 H (19-24) mmol/L ABG O2 Saturation 100.0 H (94-97) % Chloride 110 H (98-107) mmol/L BUN 24 H (7-17) mg/dL Creatinine 0.22 L (0.52-1.04) mg/dL Glucose 144 H (74-99) mg/dL POC Glucose (mg/dL) 169 H (70-110) mg/dL 03/17/24 03/17/24 03/17/24 Range/Units 06:51 09:50 11:15 WBC (3.8-10.6) k/uL RBC (3.80-5.40) m/uL Hgb (11.4-16.0) gm/dL Hct (34.0-46.0) % MCV (80.0-100.0) fL Neutrophils # (1.3-7.7) k/uL Lymphocytes # (1.0-4.8) k/uL APTT 49.6 H (22.0-30.0) sec ABG pO2 120 H (83-108) mmHg ABG HCO3 28 H (21-25) mmol/L ABG Total CO2 30 H (19-24) mmol/L ABG O2 Saturation 99.6 H (94-97) % Chloride (98-107) mmol/L BUN (7-17) mg/dL Creatinine (0.52-1.04) mg/dL Glucose (74-99) mg/dL POC Glucose (mg/dL) 277 H (70-110) mg/dL Microbiology - Last 24 Hours (Table) 03/13/24 17:12 Blood Culture - Preliminary Blood 03/13/24 17:00 Blood Culture - Preliminary Blood 03/14/24 11:00 Gram Stain - Final Bronchial Washings - Random Bronchial Washings Culture - Final Haemophilus influenzae Assessment and Plan (1) Pneumonia Current Visit: Yes Status: Acute Code(s): J18.9 - PNEUMONIA, UNSPECIFIED ORGANISM SNOMED Code(s): 242235460 (2) Sepsis Current Visit: Yes Status: Acute Code(s): A41.9 - SEPSIS, UNSPECIFIED ORGANISM SNOMED Code(s): 35201486 (3) Type 2 diabetes mellitus with other skin ulcer Current Visit: Yes Status: Acute Code(s): E11.622 - TYPE 2 DIABETES MELLITUS WITH OTHER SKIN ULCER; L98.499 - NON-PRESSURE CHRONIC ULCER OF SKIN OF SITES W UNSP SEVERITY SNOMED Code(s): 185891557 (4) Stage III pressure ulcer of sacral region Current Visit: No Status: Acute Code(s): L89.153 - PRESSURE ULCER OF SACRAL REGION, STAGE 3 SNOMED Code(s): 12886237107793 Plan: 1patient presented to hospital with sepsis in this patient who did have a low- grade fever tachycardia elevated white count source is multifactorial in this patient who did have a component of pneumonia as well as PE keeping in mind the patient has been out of the hospital we need to cover for the resistant gram- negative 2-patient did have a superficial ulcer involving lower extremities likely from ruptured blister with no evidence of any cellulitis 3-stage III pressure ulcer to the sacral area with slough tissue but no evidence of any cellulitis 4-patient sputum and bronchoscopy culture growing Haemophilus influenzae patient is covered with Zosyn to continue antibiotic we will course closely Dictation was produced using [employer] dictation software. please excuse any grammatical, word or spelling errors. Time with Patient: Less than 30
[2024-03-17 17:11] LABS: Glucose,Whole Blood 247 mg/dL (70-110)
[2024-03-17 23:09] LABS: Glucose,Whole Blood 106 mg/dL (70-110)
[2024-03-18 04:24] LABS: Basophils % (A) 0 %; Eosinophils % (A) 0 %; HCT 35.9 % (34.0-46.0); Hypochromasia Slight; Lymphocytes # (A) 0.5 k/uL (1.0-4.8); Lymphocytes % (A) 3 %; MCH 31.7 pg (25.0-35.0); MCHC 30.7 g/dL (31.0-37.0); MCV 103.2 fL (80.0-100.0); Macrocytosis Slight; Mean Platelet Volume 8.9; Monocytes # (A) 0.4 k/uL (0-1.0); Monocytes % (A) 2 %; Neutrophils # (A) 18.1 k/uL (1.3-7.7); Neutrophils % (A) 95 %; Platelet Count 380 k/uL (150-450); RBC 3.48 m/uL (3.80-5.40); WBC 19.1 k/uL (3.8-10.6)
[2024-03-18 04:43] LABS: African American GFR (CKD) >90 (>60 ml/min/1.73 sqM); Anion Gap 0 mmol/L; Blood Urea Nitrogen 22 mg/dL (7-17); Calcium 8.6 mg/dL (8.4-10.2); Carbon Dioxide 27 mmol/L (22-30); Chloride 112 mmol/L (98-107); Glucose 106 mg/dL (74-99); Non-African American GFR(CKD) >90 (>60 ml/min/1.73 sqM); Potassium 3.8 mmol/L (3.5-5.1); Sodium 139 mmol/L (137-145)
[2024-03-18] MEDS: POTASSIUM CHLORIDE 10 MEQ in WATER FOR INJECTION 1 100ML.BAG IVPB SCH (05:21)
[2024-03-18 05:48] LABS: Glucose,Whole Blood 110 mg/dL (70-110)
[2024-03-18] MEDS: methylPREDNISolone SOD SUCCI 40 MG/ML 1 ML VIAL IV SCH (08:53)
[2024-03-18] MEDS: Apixaban Initiation Dose--VTE 5 MG TAB PO SCH (08:56)
--- NOTE | 2024-03-18 10:43 | P.PN ---
Subjective Progress Note Date: 03/18/24 Principal diagnosis: Acute hypoxic respiratory failure secondary to multifocal pneumonia and sepsis with septic shock Patient is a 64-year-old white female with past medical history significant for COPD, diabetes mellitus, hyperlipidemia, hypertension, current everyday smoker. Of note, she was recently hospitalized January 29 through February, for suspected aspiration pneumonia and exacerbation of the patient's known COPD. She was reportedly discharged to a local ECF on courses of Augmentin and Diflucan. She did have systemic candidemia this admission. It is my impression, the patient's functional status has been gradually declining. She has been fairly sedentary. She has a decubitus pressure ulcer as well as multiple lower extremity wounds. She also has a issue with urinary retention and a chronic indwelling urinary catheter. Patient returned to the emergency department yesterday afternoon reportedly with severe difficulty in breathing. She was initially trialed on BiPAP and then intubated in the emergency department. She is unable to provide any information at this time, and no family members are present. Chest CTA performed during her previous hospitalization was negative for any acute pulmonary emboli. There were small bilateral pleural effusions with adjacent atelectasis were demonstrated. A chest CTA was repeated in the emergency department this admission, demonstrating a nonocclusive right upper lobe pulmonary embolus. No evidence of right-sided heart strain. There is small left pleural effusion, with increasing airspace opacity in the left lower lobe and right upper lobe suspicious for pneumonia. No reported witnessed aspiration events. Postintubation chest x-ray shows the endotracheal tube 3.1 cm from the kendy. Nasogastric tube courses within the gastric fundus. Most recent ABGs have a PaO2 of 358, pCO2 of 37, pH of 7.49. This was done on ventilator settings including assist-control, respiratory rate 16, tidal volume 300, FiO2 100%, and PEEP of 5. FiO2 was previously dropped to 50%. Peak pressures are 16. She is breathing slightly above set rate. Sedated on propofol which is infusing at 30 mcg/kg/min. Normal saline also infusing at 130 MLS per hour. Blood pressure has remained hypotensive despite 2.5 L normal saline bolus. She has been started on low-dose norepinephrine which is infusing at 0.03 mcg/kg/min . Previously tachycardic, and this is improved. She has also since been started on the high intensity heparin protocol. Most recent APTT was subtherapeutic, and drip was a appropriately adjusted. Baseline CBC has a WBC count of 29.1, hemoglobin 14, hematocrit 42.9, platelets 591. Most recent CMP includes a sodium 136, potassium 2.7, chloride 103, serum bicarb 22, BUN 15, creatinine 0.27, glucose 317. Lactic acid was 4.9 and is down to 3.4. AST 29, ALT 31, ALP 327. Total bili 0.6. Troponin 0.021. NT proBNP 846. EKG done on arrival shows sinus tachycardia with a rate of 121 bpm and T wave inversion in leads II, III and aVF. Negative for influenza, RSV, COVID. Patient empirically covered on a combination of antibiotics including azithromycin and Zosyn. Afebrile. Prognosis is guarded. Patient was evaluated on 03/15/2024, patient is in the ICU, intubated and mechanically ventilated. Patient is on assist-control rate of 16 tidal volume 300 FiO2 45% and PEEP of 5 ABG showed a pO2 of 134 pCO2 42 pH of 7.47 hence FiO2 was cut down to 35%. Patient remains hemodynamically unstable requiring norepinephrine at 0.02 mcg/kg/min. IV fluid is at 130 cc/h however this will be cut down to KVO, and the patient will receive Lasix as she has received significant amount of fluids over the last 24 hours. Urine output is marginal 10 to 20 cc an hour. Lasix will be given. Remains on propofol at 30 mcg/kg/min she is also on heparin drip, and receiving vital AF at 10 cc/h. Patient is at least 4.6 L fluid balance positive. And she remains on Zosyn. Cultures from the BAL are pending but it seems to be gram-negative bacilli mostly. Patient is on Zosyn. Blood cultures are pending, negative so far. Patient is receiving trickle enteral feeding mostly because of increased residual. WBC count today is 21.8 hemoglobin 10.1. Platelets are 427 basic metabolic profile is normal re nal profile is normal Seen today on 03/16/2024, remains in the ICU intubated and mechanically ventil ated. Patient is on assist-control rate 16 tidal volume 300 FiO2 35% PEEP of 5 ABG showed a pO2 of 120 pCO2 45 pH of 7.45. Patient remains on IV fluid at 100 cc/h urine output is marginal at 30 to 40 cc/h. She is receiving vital AF at 30 cc/h. Patient had haemophilus influenza cultured from her BAL/sputum and she remains on Zosyn. Clinically she is making a dramatic improvement and her chest x-ray is also improving hence I am not changing her Zosyn for now. Patient has been off sedation since yesterday, she is not following any instructions, she opens her eyes, but seems to be generally weak, and still not quite ready to be extubated. Hence the plan is to keep her mechanically ventilated today, will reassess in the afternoon and hopefully her mental status may improve, then we could potentially check e weaning parameters and weaning trials. Hemoglobin is 10.4. Basic metabolic profile is normal and renal profile is normal WBC count today is 10.4. Reevaluate today, patient remains in the ICU intubated and mechanically ventilated. Patient remains off sedation for the last 24 hours, earlier today she was on assist-control mode of mechanical ventilation, however during my evaluation the patient was noted to be on CPAP. Patient has very low respiratory rate, about 8 breaths/min. However she is maintaining adequate tidal volume with each breath. Patient remains on antibiotics/Zosyn for her H. influenzae pneumonia, and ABG this morning showed a pO2 of 131 pCO2 44 pH of 7.44. Chest x-ray continues to show improvement in her bilateral multifocal pneumonia. Nutrition mederos patient remains on vital AF at 50 cc/h. Remains on heparin for acute pulmonary embolism involving the right upper lobe. WBC count today is 20.4 hemoglobin is 10.5. PTT is therapeutic at 49.6, basic metabolic profile is normal and renal profile is normal Patient was evaluated today on 03/18/2024, remains in the ICU, patient was extubated yesterday, she had successful extubation. Patient is not requiring any pressors, she is hemodynamically stable, patient is quite emotional and tear ful when she realized that she is doing better than expected. Remains on heparin which I will transition to Eliquis today. She remains on Zosyn for her H. influenzae pneumonia my plan is to discontinue her art line, and cut down her Solu-Medrol to every 12 hours. I would rather continue to monitor in the ICU for the next 24 hours. Patient had to go on BiPAP postextubation yesterday temporarily 09/01/35%. WBC count today is 19.1 hemoglobin is 11 PTT is therapeutic platelets are normal basic metabolic profile is normal and renal profile is normal no chest x-ray was done today, however her chest x-ray yesterday showed improvement in her bilateral infiltrates/pneumonia Objective - Vital Signs Vital signs: Vital Signs Temp 98.8 F 03/18/24 08:00 Pulse 93 03/18/24 10:00 Resp 11 L 03/18/24 10:00 BP 140/91 03/18/24 10:00 Pulse Ox 99 03/18/24 09:00 FiO2 35 03/17/24 15:22 Intake & Output 03/17/24 03/18/24 03/18/24 18:59 06:59 18:59 Intake Total 1505 1449.047 336.322 Output Total 465 490 275 Balance 1040 959.047 61.322 Weight 61.5 kg 66.3 kg Intake: IV 1200 1200 300 Piperacillin-Tazobactam 3 100 .375 gm In Sodium Chloride 0.9% 100 ml @ 25 mls/hr IVPB Q8H [facility] Rx#: [id number] Sodium Chloride 0.9% 1, 1100 1200 100 000 ml @ 10 mls/hr IV . Q24H [facility] Rx#:[id number] Sodium Chloride 0.9% 1, 200 000 ml @ 100 mls/hr IV . Q10H [facility] Rx#:[id number] Intake, IV Titration 100 249.047 36.322 Amount Heparin Sod,Pork in 0.45% 249.047 36.322 NaCl 25,000 unit In 0.45 % NaCl 1 250ml.bag @ 18 UNITS/KG/HR 8.573 mls/hr IV .Q24H [facility] Rx#: [id number] Sodium Chloride 0.9% 1, 100 000 ml @ 100 mls/hr IV . Q10H [facility] Rx#:[id number] Tube Feeding 175 Other 30 Output: Urine 465 490 275 Other: Voiding Method Indwelling Catheter Indwelling Catheter Indwelling Catheter # Bowel Movements 1 ABP, PAP, CO, CI - Last Documented Arterial Blood Pressure 172/78 - Exam GENERAL EXAM: 64-year-old female, on 3 L nasal cannula, not in distress. HEAD: Normocephalic and atraumatic EYES: Normal reaction of pupils, equal size. NOSE: Clear with pink turbinates. THROAT: No erythema or exudates. NECK: No masses, no JVD. CHEST: No chest wall deformity. LUNGS: Minimal crackles at the bases no rhonchi no wheezes. CVS: Distant S1-S2, no S3 gallop, no murmur. ABDOMEN: Soft nontender no megaly no rebound no guarding. Bowel sounds. SKIN: Decubitus unstageable pressure injury. Bilateral lower extremity wounds. Multiple superficial ulcerations noted in both lower extremities. Most of them are weeping skin lesions CENTRAL NERVOUS SYSTEM: Alert and oriented x 3, no gross focal neurologic defi cit EXTREMITIES: Bipedal edema with multiple superficial skin lesions/ulcerations noted bilaterally - Labs CBC & Chem 7: 03/18/24 04:07 03/18/24 04:07 Labs: Abnormal Lab Results - Last 24 Hours (Table) 03/17/24 03/17/24 03/18/24 Range/Units 11:15 17:10 04:07 WBC (3.8-10.6) k/uL RBC (3.80-5.40) m/uL Hgb (11.4-16.0) gm/dL MCV (80.0-100.0) fL MCHC (31.0-37.0) g/dL Neutrophils # (1.3-7.7) k/uL Lymphocytes # (1.0-4.8) k/uL APTT 52.8 H (22.0-30.0) sec Chloride (98-107) mmol/L BUN (7-17) mg/dL Creatinine (0.52-1.04) mg/dL Glucose (74-99) mg/dL POC Glucose (mg/dL) 277 H 247 H (70-110) mg/dL 03/18/24 03/18/24 Range/Units 04:07 04:07 WBC 19.1 H (3.8-10.6) k/uL RBC 3.48 L (3.80-5.40) m/uL Hgb 11.0 L (11.4-16.0) gm/dL MCV 103.2 H (80.0-100.0) fL MCHC 30.7 L (31.0-37.0) g/dL Neutrophils # 18.1 H (1.3-7.7) k/uL Lymphocytes # 0.5 L (1.0-4.8) k/uL APTT (22.0-30.0) sec Chloride 112 H (98-107) mmol/L BUN 22 H (7-17) mg/dL Creatinine 0.26 L (0.52-1.04) mg/dL Glucose 106 H (74-99) mg/dL POC Glucose (mg/dL) (70-110) mg/dL Assessment and Plan Assessment: Impression: Acute hypoxic respiratory failure requiring intubation mechanical ventilation, multifactorial., Patient was extubated on 03/17 and tolerated the extubation well. Acute multifocal pneumonia, secondary to Haemophilus influenzae, diagnosed via bronchoscopy and BAL Acute exacerbation of COPD Acute right upper lobe pulmonary embolism as noted on CT angiogram of the chest on admission Sepsis and septic shock secondary to pneumonia, off pressors Profound hypotension on admission requiring pressors Acute leukocytosis, slightly improved History of systemic candidemia, completed a course of Diflucan. Chronic urinary retention with indwelling Horn catheter History of constipation status post decompressive sigmoidoscopy in January 26, 2002 4 Type 2 diabetes Benign essential hypertension Dyslipidemia Severe protein calorie malnutrition Chronic decubitus pressure ulcer and multiple skin ulcerations involving both lower extremities. Oliguria but relatively normal functioning will try a Lasix challenge Acute metabolic encephalopathy Recommendation: Continue to monitor in the ICU today Advance diet as tolerated Continue GI and DVT prophylaxis Change heparin to Eliquis Continue antibiotics/Zosyn for influenza A influenza pneumonia Continue wound care to lower extremities Continue bronchodilators for COPD and cut down on Solu-Medrol. Continue to monitor daily electrolytes and daily labs and address accordingly Will continue to follow Time with Patient: Less than 30
[2024-03-18 12:08] LABS: Glucose,Whole Blood 142 mg/dL (70-110)
[2024-03-18] MEDS: INSULIN ASPART (NovoLOG) 100 UNIT/ML VIAL SQ SCH (12:09)
--- NOTE | 2024-03-18 12:14 | P.PN ---
Subjective Progress Note Date: 03/18/24 Patient is a 64-year-old white female with past medical history significant for COPD, diabetes mellitus, hyperlipidemia, hypertension, current everyday smoker. Of note, she was recently hospitalized January 29 through February, for suspected aspiration pneumonia and exacerbation of the patient's known COPD. She was reportedly discharged to a local ECF on courses of Augmentin and Diflucan. She has a decubitus pressure ulcer as well as multiple lower extremity wounds. She also has a issue with urinary retention and a chronic indwelling urinary catheter. Patient returned to the emergency department yesterday afternoon reportedly with severe difficulty in breathing. She was initially trialed on B iPAP and then intubated in the emergency department. She is unable to provide any information at this time, and no family members are present. Chest CTA performed during her previous hospitalization was negative for any acute pulmonary emboli. There were small bilateral pleural effusions with adjacent atelectasis were demonstrated. A chest CTA was repeated in the emergency department this admission, demonstrating a nonocclusive right upper lobe pulmonary embolus. No evidence of right-sided heart strain. There is small left pleural effusion, with increasing airspace opacity in the left lower lobe and right upper lobe suspicious for pneumonia. No reported witnessed aspiration events. Postintubation chest x-ray shows the endotracheal tube 3.1 cm from the kendy. Nasogastric tube courses within the gastric fundus. Most recent ABGs have a PaO2 of 358, pCO2 of 37, pH of 7.49. This was done on ventilator settings including assist-control, respiratory rate 16, tidal volume 300, FiO2 100%, and PEEP of 5. FiO2 was previously dropped to 50%. Peak pressures are 16. She is breathing slightly above set rate. Sedated on propofol which is infusing at 30 mcg/kg/min. Normal saline also infusing at 130 MLS per hour. Blood pressure has remained hypotensive despite 2.5 L normal saline bolus. She has been started on low-dose norepinephrine which is infusing at 0.03 mcg/kg/min. Previously tachycardic, and this is improved. She has also since been started on the high intensity heparin protocol. Most recent APTT was subtherapeutic, and drip was a appropriately adjusted. Baseline CBC has a WBC count of 29.1, hemoglobin 14, hematocrit 42.9, platelets 591. Most recent CMP includes a sodium 136, potassium 2.7, chloride 103, serum bicarb 22, BUN 15, creatinine 0.27, glucose 317. Lactic acid was 4.9 and is down to 3.4. AST 29, ALT 31, ALP 327. Total bili 0.6. Troponin 0.021. NT proBNP 846. EKG done on arrival shows sinus tachycardia with a rate of 121 bpm and T wave inversion in leads II, III and aVF. Negative for influenza, RSV, COVID. Patient empirically covered on a combination of antibiotics including azithromycin and Zosyn. Afebrile. Prognosis is guarded. 03/16. Dr. Palumbo took over care from Dr. Lloyd. Currently patient is intubated, off sedation, opening eyes. Patient is off pressors. 03/17. Patient seen and examined. Currently resting, was extubated this morning. Currently on BiPAP, not very alert. Blood work this morning showed WBC 20.4, hemoglobin 10.5, platelet count 363, sodium 138, potassium 4, BUN 24, creatinine 0.22 03/18. Patient seen and examined. Currently on room air. Blood work done this morning showed WBC 19.1, hemoglobin 11, platelet count 380, sodium 139, potassium 3.8, BUN 22, creatinine 0.26. Heparin was discontinued and patient started on Eliquis REVIEW OF SYSTEMS: Denies any chest pain. Denies shortness of breath. Denies nausea or vomiting PHYSICAL EXAMINATION: GENERAL: The patient is alert HEENT: Pupils are round and equally reacting to light. EOMI. No scleral icterus. No conjunctival pallor. Normocephalic, atraumatic. No pharyngeal erythema. No thyromegaly. CARDIOVASCULAR: S1 and S2 present. No murmurs, rubs, or gallops. PULMONARY: Chest is clear to auscultation, no wheezing or crackles. ABDOMEN: Soft, nontender, nondistended, normoactive bowel sounds. No palpable organomegaly. MUSCULOSKELETAL: No joint swelling or deformity. EXTREMITIES: No cyanosis, clubbing, or pedal edema. NEUROLOGICAL: Alert, moving all extremities SKIN: No rashes. Assessment and plan Acute hypoxic respiratory failure requiring intubation mechanical ventilation, multifactorial. Acute multifocal pneumonia, secondary to Haemophilus influenzae Acute exacerbation of COPD Acute right upper lobe pulmonary embolism as noted on CT angiogram of the chest on admission Sepsis and septic shock secondary to pneumonia, Profound hypotension on admission requiring pressors, Acute leukocytosis History of systemic candidemia Chronic urinary retention with indwelling Horn catheter History of constipation status post decompressive sigmoidoscopy in January 26, 2002 4 Type 2 diabetes Benign essential hypertension Dyslipidemia Severe protein calorie malnutrition Chronic decubitus pressure ulcer and multiple skin ulcerations involving both lower extremities. Oliguria but relatively normal functioning will try a Lasix challenge Acute metabolic encephalopathy Monitor vital signs Monitor CBC Monitor CMP Continue telemetry monitoring Continue aggressive bronchopulmonary hygiene Follow-up on blood cultures DC heparin, started Eliquis Continue IV Zosyn Critical care following ID following Labs and medication were reviewed.. Continue same treatment. Continue with symptomatic treatment. Resume home medication. Monitor labs and vitals. DVT and GI prophylaxis. Further recommendations as per clinical course of the pat ient Dictation was produced using [employer] dictation software. please excuse any grammatical, word or spelling errors. Objective - Vital Signs Vital signs: Vital Signs Temp 98.8 F 03/18/24 08:00 Pulse 98 03/18/24 11:13 Resp 13 03/18/24 11:00 BP 139/83 03/18/24 11:00 Pulse Ox 99 03/18/24 09:00 FiO2 35 03/17/24 15:22 Intake & Output 03/17/24 03/18/24 03/18/24 18:59 06:59 18:59 Intake Total 1505 1449.047 636.322 Output Total 465 490 455 Balance 1040 959.047 181.322 Weight 61.5 kg 66.3 kg Intake: IV 1200 1200 600 Piperacillin-Tazobactam 3 100 .375 gm In Sodium Chloride 0.9% 100 ml @ 25 mls/hr IVPB Q8H [facility] Rx#: [id number] Sodium Chloride 0.9% 1, 1100 1200 100 000 ml @ 10 mls/hr IV . Q24H [facility] Rx#:[id number] Sodium Chloride 0.9% 1, 500 000 ml @ 100 mls/hr IV . Q10H [facility] Rx#:[id number] Intake, IV Titration 100 249.047 36.322 Amount Heparin Sod,Pork in 0.45% 249.047 36.322 NaCl 25,000 unit In 0.45 % NaCl 1 250ml.bag @ 18 UNITS/KG/HR 8.573 mls/hr IV .Q24H [facility] Rx#: [id number] Sodium Chloride 0.9% 1, 100 000 ml @ 100 mls/hr IV . Q10H [facility] Rx#:[id number] Tube Feeding 175 Other 30 Output: Urine 465 490 455 Other: Voiding Method Indwelling Catheter Indwelling Catheter Indwelling Catheter # Bowel Movements 1 ABP, PAP, CO, CI - Last Documented Arterial Blood Pressure 172/78 - Labs CBC & Chem 7: 03/18/24 04:07 03/18/24 04:07 Labs: Abnormal Lab Results - Last 24 Hours (Table) 03/17/24 03/18/24 03/18/24 Range/Units 17:10 04:07 04:07 WBC 19.1 H (3.8-10.6) k/uL RBC 3.48 L (3.80-5.40) m/uL Hgb 11.0 L (11.4-16.0) gm/dL MCV 103.2 H (80.0-100.0) fL MCHC 30.7 L (31.0-37.0) g/dL Neutrophils # 18.1 H (1.3-7.7) k/uL Lymphocytes # 0.5 L (1.0-4.8) k/uL APTT 52.8 H (22.0-30.0) sec Chloride (98-107) mmol/L BUN (7-17) mg/dL Creatinine (0.52-1.04) mg/dL Glucose (74-99) mg/dL POC Glucose (mg/dL) 247 H (70-110) mg/dL 03/18/24 03/18/24 Range/Units 04:07 12:06 WBC (3.8-10.6) k/uL RBC (3.80-5.40) m/uL Hgb (11.4-16.0) gm/dL MCV (80.0-100.0) fL MCHC (31.0-37.0) g/dL Neutrophils # (1.3-7.7) k/uL Lymphocytes # (1.0-4.8) k/uL APTT (22.0-30.0) sec Chloride 112 H (98-107) mmol/L BUN 22 H (7-17) mg/dL Creatinine 0.26 L (0.52-1.04) mg/dL Glucose 106 H (74-99) mg/dL POC Glucose (mg/dL) 142 H (70-110) mg/dL
--- NOTE | 2024-03-18 16:22 | P.PN ---
Subjective Progress Note Date: 03/18/24 Principal diagnosis: Reason for follow-up is pneumonia Patient is a 64-year-old female with a past medical history significant for diabetes mellitus hypertension hyperlipidemia COPD recently prolonged hospital stay for pneumonia patient was brought into the [facility] ER for evaluation of difficulty breathing, the patient had worsening respiratory status requiring the patient to admission to the ICU. On today's evaluation that is 03/18/2024,the patient remains to be afebrile, patient is on 3 L nasal cannula supplemental oxygen and denies any shortness of breath no chest pain or any worsening cough.Patient denies having any nausea or vomiting, no abdominal pain and no diarrhea has been reported. Patient white count is 19.1, creatinine 0.26 blood culture negative Objective - Vital Signs Vital signs: Vital Signs Temp 97.3 F L 03/18/24 12:00 Pulse 105 H 03/18/24 15:22 Resp 10 L 03/18/24 15:00 BP 119/96 03/18/24 15:00 Pulse Ox 97 03/18/24 15:00 FiO2 35 03/17/24 15:22 Intake & Output 03/17/24 03/18/24 03/18/24 18:59 06:59 18:59 Intake Total 1505 4657.928 4340.322 Output Total 465 490 565 Balance 1040 959.047 693.322 Weight 61.5 kg 66.3 kg Intake: IV 1200 1200 1000 Piperacillin-Tazobactam 3 100 100 .375 gm In Sodium Chloride 0.9% 100 ml @ 25 mls/hr IVPB Q8H [facility] Rx#: [id number] Sodium Chloride 0.9% 1, 1100 1200 100 000 ml @ 10 mls/hr IV . Q24H [facility] Rx#:[id number] Sodium Chloride 0.9% 1, 800 000 ml @ 100 mls/hr IV . Q10H [facility] Rx#:[id number] Intake, IV Titration 100 249.047 36.322 Amount Heparin Sod,Pork in 0.45% 249.047 36.322 NaCl 25,000 unit In 0.45 % NaCl 1 250ml.bag @ 18 UNITS/KG/HR 8.573 mls/hr IV .Q24H [facility] Rx#: [id number] Sodium Chloride 0.9% 1, 100 000 ml @ 100 mls/hr IV . Q10H [facility] Rx#:[id number] Oral 222 Tube Feeding 175 Other 30 Output: Urine 465 490 565 Other: Voiding Method Indwelling Catheter Indwelling Catheter Indwelling Catheter # Bowel Movements 1 ABP, PAP, CO, CI - Last Documented Arterial Blood Pressure 172/78 - Exam GENERAL DESCRIPTION: Middle-aged female lying in bed in no distress RESPIRATORY SYSTEM: Unlabored breathing , decreased breath sounds at bases HEART: S1 S2 regular rate and rhythm , ABDOMEN: Soft , no tenderness EXTREMITIES: No edema feet - Labs CBC & Chem 7: 03/18/24 04:07 03/18/24 04:07 Labs: Abnormal Lab Results - Last 24 Hours (Table) 03/17/24 03/18/24 03/18/24 Range/Units 17:10 04:07 04:07 WBC 19.1 H (3.8-10.6) k/uL RBC 3.48 L (3.80-5.40) m/uL Hgb 11.0 L (11.4-16.0) gm/dL MCV 103.2 H (80.0-100.0) fL MCHC 30.7 L (31.0-37.0) g/dL Neutrophils # 18.1 H (1.3-7.7) k/uL Lymphocytes # 0.5 L (1.0-4.8) k/uL APTT 52.8 H (22.0-30.0) sec Chloride (98-107) mmol/L BUN (7-17) mg/dL Creatinine (0.52-1.04) mg/dL Glucose (74-99) mg/dL POC Glucose (mg/dL) 247 H (70-110) mg/dL 03/18/24 03/18/24 Range/Units 04:07 12:06 WBC (3.8-10.6) k/uL RBC (3.80-5.40) m/uL Hgb (11.4-16.0) gm/dL MCV (80.0-100.0) fL MCHC (31.0-37.0) g/dL Neutrophils # (1.3-7.7) k/uL Lymphocytes # (1.0-4.8) k/uL APTT (22.0-30.0) sec Chloride 112 H (98-107) mmol/L BUN 22 H (7-17) mg/dL Creatinine 0.26 L (0.52-1.04) mg/dL Glucose 106 H (74-99) mg/dL POC Glucose (mg/dL) 142 H (70-110) mg/dL Assessment and Plan (1) Pneumonia Current Visit: Yes Status: Acute Code(s): J18.9 - PNEUMONIA, UNSPECIFIED ORGANISM SNOMED Code(s): 009780832 (2) Sepsis Current Visit: Yes Status: Acute Code(s): A41.9 - SEPSIS, UNSPECIFIED ORGANISM SNOMED Code(s): 31347945 (3) Type 2 diabetes mellitus with other skin ulcer Current Visit: Yes Status: Acute Code(s): E11.622 - TYPE 2 DIABETES MELLITUS WITH OTHER SKIN ULCER; L98.499 - NON-PRESSURE CHRONIC ULCER OF SKIN OF SITES W UNSP SEVERITY SNOMED Code(s): 668783246 (4) Stage III pressure ulcer of sacral region Current Visit: No Status: Acute Code(s): L89.153 - PRESSURE ULCER OF SACRAL REGION, STAGE 3 SNOMED Code(s): 61568892459759 Plan: 1patient presented to hospital with sepsis in this patient who did have a low- grade fever tachycardia elevated white count source is multifactorial in this patient who did have a component of pneumonia as well as PE keeping in mind the patient has been out of the hospital we need to cover for the resistant gram- negative 2-patient did have a superficial ulcer involving lower extremities likely from ruptured blister with no evidence of any cellulitis 3-stage III pressure ulcer to the sacral area with slough tissue but no evidence of any cellulitis 4-patient sputum and bronchoscopy culture growing Haemophilus influenzae 5-patient to continue with Zosyn and will monitor clinical course closely Dictation was produced using [employer] dictation software. please excuse any grammatical, word or spelling errors. Time with Patient: Less than 30
[2024-03-18 16:40] LABS: Glucose,Whole Blood 225 mg/dL (70-110)
[2024-03-18] MEDS: SYMBICORT 80-4.5 MCG INHALER INHALATION SCH (19:41)
[2024-03-18 19:53] LABS: Glucose,Whole Blood 286 mg/dL (70-110)
[2024-03-19 05:18] LABS: Basophils % (A) 0 %; Eosinophils # (A) 0.1 k/uL (0-0.7); Eosinophils % (A) 0 %; HCT 35.1 % (34.0-46.0); HGB 10.8 gm/dL (11.4-16.0); Hypochromasia Slight; Lymphocytes # (A) 0.6 k/uL (1.0-4.8); Lymphocytes % (A) 4 %; MCH 31.6 pg (25.0-35.0); MCHC 30.8 g/dL (31.0-37.0); MCV 102.6 fL (80.0-100.0); Macrocytosis Slight; Monocytes # (A) 0.5 k/uL (0-1.0); Monocytes % (A) 3 %; Neutrophils # (A) 14.8 k/uL (1.3-7.7); Neutrophils % (A) 93 %; Platelet Count 397 k/uL (150-450); RBC 3.43 m/uL (3.80-5.40)
[2024-03-19 05:27] LABS: African American GFR (CKD) >90 (>60 ml/min/1.73 sqM); Anion Gap 0 mmol/L; Blood Urea Nitrogen 18 mg/dL (7-17); Calcium 8.7 mg/dL (8.4-10.2); Carbon Dioxide 26 mmol/L (22-30); Chloride 112 mmol/L (98-107); Glucose 177 mg/dL (74-99); Non-African American GFR(CKD) >90 (>60 ml/min/1.73 sqM); Potassium 3.7 mmol/L (3.5-5.1); Sodium 138 mmol/L (137-145)
[2024-03-19] MEDS: POTASSIUM CHLORIDE 10 MEQ in WATER FOR INJECTION 1 100ML.BAG IVPB SCH (05:53)
[2024-03-19 06:37] LABS: Glucose,Whole Blood 178 mg/dL (70-110)
--- NOTE | 2024-03-19 10:34 | P.PN ---
Subjective Progress Note Date: 03/19/24 Principal diagnosis: Acute hypoxic respiratory failure secondary to multifocal pneumonia and sepsis with septic shock Patient is a 64-year-old white female with past medical history significant for COPD, diabetes mellitus, hyperlipidemia, hypertension, current everyday smoker. Of note, she was recently hospitalized January 29 through February, for suspected aspiration pneumonia and exacerbation of the patient's known COPD. She was reportedly discharged to a local ECF on courses of Augmentin and Diflucan. She did have systemic candidemia this admission. It is my impression, the patient's functional status has been gradually declining. She has been fairly sedentary. She has a decubitus pressure ulcer as well as multiple lower extremity wounds. She also has a issue with urinary retention and a chronic indwelling urinary catheter. Patient returned to the emergency department yesterday afternoon reportedly with severe difficulty in breathing. She was initially trialed on BiPAP and then intubated in the emergency department. She is unable to provide any information at this time, and no family members are present. Chest CTA performed during her previous hospitalization was negative for any acute pulmonary emboli. There were small bilateral pleural effusions with adjacent atelectasis were demonstrated. A chest CTA was repeated in the emergency department this admission, demonstrating a nonocclusive right upper lobe pulmonary embolus. No evidence of right-sided heart strain. There is small left pleural effusion, with increasing airspace opacity in the left lower lobe and right upper lobe suspicious for pneumonia. No reported witnessed aspiration events. Postintubation chest x-ray shows the endotracheal tube 3.1 cm from the kendy. Nasogastric tube courses within the gastric fundus. Most recent ABGs have a PaO2 of 358, pCO2 of 37, pH of 7.49. This was done on ventilator settings including assist-control, respiratory rate 16, tidal volume 300, FiO2 100%, and PEEP of 5. FiO2 was previously dropped to 50%. Peak pressures are 16. She is breathing slightly above set rate. Sedated on propofol which is infusing at 30 mcg/kg/min. Normal saline also infusing at 130 MLS per hour. Blood pressure has remained hypotensive despite 2.5 L normal saline bolus. She has been started on low-dose norepinephrine which is infusing at 0.03 mcg/kg/min . Previously tachycardic, and this is improved. She has also since been started on the high intensity heparin protocol. Most recent APTT was subtherapeutic, and drip was a appropriately adjusted. Baseline CBC has a WBC count of 29.1, hemoglobin 14, hematocrit 42.9, platelets 591. Most recent CMP includes a sodium 136, potassium 2.7, chloride 103, serum bicarb 22, BUN 15, creatinine 0.27, glucose 317. Lactic acid was 4.9 and is down to 3.4. AST 29, ALT 31, ALP 327. Total bili 0.6. Troponin 0.021. NT proBNP 846. EKG done on arrival shows sinus tachycardia with a rate of 121 bpm and T wave inversion in leads II, III and aVF. Negative for influenza, RSV, COVID. Patient empirically covered on a combination of antibiotics including azithromycin and Zosyn. Afebrile. Prognosis is guarded. Patient was evaluated on 03/15/2024, patient is in the ICU, intubated and mechanically ventilated. Patient is on assist-control rate of 16 tidal volume 300 FiO2 45% and PEEP of 5 ABG showed a pO2 of 134 pCO2 42 pH of 7.47 hence FiO2 was cut down to 35%. Patient remains hemodynamically unstable requiring norepinephrine at 0.02 mcg/kg/min. IV fluid is at 130 cc/h however this will be cut down to KVO, and the patient will receive Lasix as she has received significant amount of fluids over the last 24 hours. Urine output is marginal 10 to 20 cc an hour. Lasix will be given. Remains on propofol at 30 mcg/kg/min she is also on heparin drip, and receiving vital AF at 10 cc/h. Patient is at least 4.6 L fluid balance positive. And she remains on Zosyn. Cultures from the BAL are pending but it seems to be gram-negative bacilli mostly. Patient is on Zosyn. Blood cultures are pending, negative so far. Patient is receiving trickle enteral feeding mostly because of increased residual. WBC count today is 21.8 hemoglobin 10.1. Platelets are 427 basic metabolic profile is normal re nal profile is normal Seen today on 03/16/2024, remains in the ICU intubated and mechanically ventil ated. Patient is on assist-control rate 16 tidal volume 300 FiO2 35% PEEP of 5 ABG showed a pO2 of 120 pCO2 45 pH of 7.45. Patient remains on IV fluid at 100 cc/h urine output is marginal at 30 to 40 cc/h. She is receiving vital AF at 30 cc/h. Patient had haemophilus influenza cultured from her BAL/sputum and she remains on Zosyn. Clinically she is making a dramatic improvement and her chest x-ray is also improving hence I am not changing her Zosyn for now. Patient has been off sedation since yesterday, she is not following any instructions, she opens her eyes, but seems to be generally weak, and still not quite ready to be extubated. Hence the plan is to keep her mechanically ventilated today, will reassess in the afternoon and hopefully her mental status may improve, then we could potentially check e weaning parameters and weaning trials. Hemoglobin is 10.4. Basic metabolic profile is normal and renal profile is normal WBC count today is 10.4. Reevaluate today, patient remains in the ICU intubated and mechanically ventilated. Patient remains off sedation for the last 24 hours, earlier today she was on assist-control mode of mechanical ventilation, however during my evaluation the patient was noted to be on CPAP. Patient has very low respiratory rate, about 8 breaths/min. However she is maintaining adequate tidal volume with each breath. Patient remains on antibiotics/Zosyn for her H. influenzae pneumonia, and ABG this morning showed a pO2 of 131 pCO2 44 pH of 7.44. Chest x-ray continues to show improvement in her bilateral multifocal pneumonia. Nutrition mederos patient remains on vital AF at 50 cc/h. Remains on heparin for acute pulmonary embolism involving the right upper lobe. WBC count today is 20.4 hemoglobin is 10.5. PTT is therapeutic at 49.6, basic metabolic profile is normal and renal profile is normal Patient was evaluated today on 03/18/2024, remains in the ICU, patient was extubated yesterday, she had successful extubation. Patient is not requiring any pressors, she is hemodynamically stable, patient is quite emotional and tear ful when she realized that she is doing better than expected. Remains on heparin which I will transition to Eliquis today. She remains on Zosyn for her H. influenzae pneumonia my plan is to discontinue her art line, and cut down her Solu-Medrol to every 12 hours. I would rather continue to monitor in the ICU for the next 24 hours. Patient had to go on BiPAP postextubation yesterday temporarily 09/01/35%. WBC count today is 19.1 hemoglobin is 11 PTT is therapeutic platelets are normal basic metabolic profile is normal and renal profile is normal no chest x-ray was done today, however her chest x-ray yesterday showed improvement in her bilateral infiltrates/pneumonia Patient was reevaluated today on 03/19/2024, remains in the ICU, patient was extubated 2 days ago, tolerated the extubation well, she is comfortable, not in any form of distress. Patient is actually on room air. Patient had intermittent nausea, she remains on Zosyn for her multifocal pneumonia secondary to H. influenzae and she is also on Eliquis for her pulmonary embolism. WBC count is 16 hemoglobin 10.8 basic metabolic profile is normal Objective - Vital Signs Vital signs: Vital Signs Temp 97.4 F L 03/19/24 08:00 Pulse 96 03/19/24 09:00 Resp 11 L 03/19/24 09:00 BP 146/83 03/19/24 09:00 Pulse Ox 95 03/19/24 09:00 FiO2 35 03/17/24 15:22 Intake & Output 03/18/24 03/19/24 03/19/24 18:59 06:59 18:59 Intake Total 5278.932 0713 790 Output Total 660 365 160 Balance 898.322 835 630 Weight 72.4 kg Intake: IV 1300 1200 250 Piperacillin-Tazobactam 3 100 .375 gm In Sodium Chloride 0.9% 100 ml @ 25 mls/hr IVPB Q8H [facility] Rx#: [id number] Sodium Chloride 0.9% 1, 100 000 ml @ 10 mls/hr IV . Q24H [facility] Rx#:[id number] Sodium Chloride 0.9% 1, 1100 1200 250 000 ml @ 50 mls/hr IV . Q20H [facility] Rx#:[id number] Intake, IV Titration 36.322 Amount Heparin Sod,Pork in 0.45% 36.322 NaCl 25,000 unit In 0.45 % NaCl 1 250ml.bag @ 18 UNITS/KG/HR 8.573 mls/hr IV .Q24H [facility] Rx#: [id number] Oral 222 540 Output: Urine 660 365 160 Other: Voiding Method Indwelling Catheter Indwelling Catheter Indwelling Catheter ABP, PAP, CO, CI - Last Documented Arterial Blood Pressure 172/78 - Exam GENERAL EXAM: 64-year-old female, on room air HEAD: Normocephalic and atraumatic EYES: Normal reaction of pupils, equal size. NOSE: Clear with pink turbinates. THROAT: No erythema or exudates. NECK: No masses, no JVD. CHEST: No chest wall deformity. LUNGS: Diminished breath sounds at the bases no crackles rhonchi or wheezes CVS: Distant S1-S2, no S3 gallop, no murmur. ABDOMEN: Soft nontender no megaly no rebound no guarding. Bowel sounds. SKIN: Decubitus unstageable pressure injury. Bilateral lower extremity wounds. Multiple superficial ulcerations noted in both lower extremities. Most of them are weeping skin lesions CENTRAL NERVOUS SYSTEM: Alert and oriented x 3, no gross focal neurologic deficit EXTREMITIES: Bipedal edema with multiple superficial skin lesions/ulcerations noted bilaterally - Labs CBC & Chem 7: 03/19/24 04:59 03/19/24 04:59 Labs: Abnormal Lab Results - Last 24 Hours (Table) 03/18/24 03/18/24 03/18/24 Range/Units 12:06 16:38 19:52 WBC (3.8-10.6) k/uL RBC (3.80-5.40) m/uL Hgb (11.4-16.0) gm/dL MCV (80.0-100.0) fL MCHC (31.0-37.0) g/dL Neutrophils # (1.3-7.7) k/uL Lymphocytes # (1.0-4.8) k/uL Chloride (98-107) mmol/L BUN (7-17) mg/dL Creatinine (0.52-1.04) mg/dL Glucose (74-99) mg/dL POC Glucose (mg/dL) 142 H 225 H 286 H (70-110) mg/dL 03/19/24 03/19/24 03/19/24 Range/Units 04:59 04:59 06:36 WBC 16.0 H (3.8-10.6) k/uL RBC 3.43 L (3.80-5.40) m/uL Hgb 10.8 L (11.4-16.0) gm/dL MCV 102.6 H (80.0-100.0) fL MCHC 30.8 L (31.0-37.0) g/dL Neutrophils # 14.8 H (1.3-7.7) k/uL Lymphocytes # 0.6 L (1.0-4.8) k/uL Chloride 112 H (98-107) mmol/L BUN 18 H (7-17) mg/dL Creatinine 0.22 L (0.52-1.04) mg/dL Glucose 177 H (74-99) mg/dL POC Glucose (mg/dL) 178 H (70-110) mg/dL Microbiology - Last 24 Hours (Table) 03/13/24 17:12 Blood Culture - Final Blood 03/13/24 17:00 Blood Culture - Final Blood Assessment and Plan Assessment: Impression: Acute hypoxic respiratory failure requiring intubation mechanical ventilation, multifactorial., Patient was extubated on 03/17 and tolerated the extubation well. Acute multifocal pneumonia, secondary to Haemophilus influenzae, diagnosed via bronchoscopy and BAL Acute exacerbation of COPD Acute right upper lobe pulmonary embolism as noted on CT angiogram of the chest on admission, presently on Eliquis Sepsis and septic shock secondary to pneumonia, off pressors Resolved Profound hypotension on admission requiring pressors History of systemic candidemia, completed a course of Diflucan. Chronic urinary retention with indwelling Horn catheter History of constipation status post decompressive sigmoidoscopy in January 26, 2002 4 Type 2 diabetes Benign essential hypertension Dyslipidemia Severe protein calorie malnutrition Chronic decubitus pressure ulcer and multiple skin ulcerations involving both lower extremities. Acute metabolic encephalopathy Recommendation: Transfer patient to medical surgical floor Advance diet as tolerated Continue GI and DVT prophylaxis Continue Eliquis for PE Continue antibiotics/Zosyn for influenza A influenza pneumonia Continue wound care to lower extremities Continue bronchodilators for COPD and cut down on Solu-Medrol. Will continue to follow Time with Patient: Less than 30
[2024-03-19 12:00] LABS: Glucose,Whole Blood 211 mg/dL (70-110)
--- NOTE | 2024-03-19 12:41 | P.PN ---
Subjective Progress Note Date: 03/19/24 Patient is a 64-year-old white female with past medical history significant for COPD, diabetes mellitus, hyperlipidemia, hypertension, current everyday smoker. Of note, she was recently hospitalized January 29 through February, for suspected aspiration pneumonia and exacerbation of the patient's known COPD. She was reportedly discharged to a local ECF on courses of Augmentin and Diflucan. She has a decubitus pressure ulcer as well as multiple lower extremity wounds. She also has a issue with urinary retention and a chronic indwelling urinary catheter. Patient returned to the emergency department yesterday afternoon reportedly with severe difficulty in breathing. She was initially trialed on B iPAP and then intubated in the emergency department. She is unable to provide any information at this time, and no family members are present. Chest CTA performed during her previous hospitalization was negative for any acute pulmonary emboli. There were small bilateral pleural effusions with adjacent atelectasis were demonstrated. A chest CTA was repeated in the emergency department this admission, demonstrating a nonocclusive right upper lobe pulmonary embolus. No evidence of right-sided heart strain. There is small left pleural effusion, with increasing airspace opacity in the left lower lobe and right upper lobe suspicious for pneumonia. No reported witnessed aspiration events. Postintubation chest x-ray shows the endotracheal tube 3.1 cm from the kendy. Nasogastric tube courses within the gastric fundus. Most recent ABGs have a PaO2 of 358, pCO2 of 37, pH of 7.49. This was done on ventilator settings including assist-control, respiratory rate 16, tidal volume 300, FiO2 100%, and PEEP of 5. FiO2 was previously dropped to 50%. Peak pressures are 16. She is breathing slightly above set rate. Sedated on propofol which is infusing at 30 mcg/kg/min. Normal saline also infusing at 130 MLS per hour. Blood pressure has remained hypotensive despite 2.5 L normal saline bolus. She has been started on low-dose norepinephrine which is infusing at 0.03 mcg/kg/min. Previously tachycardic, and this is improved. She has also since been started on the high intensity heparin protocol. Most recent APTT was subtherapeutic, and drip was a appropriately adjusted. Baseline CBC has a WBC count of 29.1, hemoglobin 14, hematocrit 42.9, platelets 591. Most recent CMP includes a sodium 136, potassium 2.7, chloride 103, serum bicarb 22, BUN 15, creatinine 0.27, glucose 317. Lactic acid was 4.9 and is down to 3.4. AST 29, ALT 31, ALP 327. Total bili 0.6. Troponin 0.021. NT proBNP 846. EKG done on arrival shows sinus tachycardia with a rate of 121 bpm and T wave inversion in leads II, III and aVF. Negative for influenza, RSV, COVID. Patient empirically covered on a combination of antibiotics including azithromycin and Zosyn. Afebrile. Prognosis is guarded. 03/16. Dr. Palumbo took over care from Dr. Lolyd. Currently patient is intubated, off sedation, opening eyes. Patient is off pressors. 03/17. Patient seen and examined. Currently resting, was extubated this morning. Currently on BiPAP, not very alert. Blood work this morning showed WBC 20.4, hemoglobin 10.5, platelet count 363, sodium 138, potassium 4, BUN 24, creatinine 0.22 03/18. Patient seen and examined. Currently on room air. Blood work done this morning showed WBC 19.1, hemoglobin 11, platelet count 380, sodium 139, potassium 3.8, BUN 22, creatinine 0.26. Heparin was discontinued and patient started on Eliquis 03/19. Patient seen and examined. Patient started on [place] and Xanax as needed for pain and anxiety. Currently not requiring any oxygen. Blood work this morning showed WBC 16, hemoglobin 10.8, platelet count 397, sodium 138, potassium 3.7, BUN 18, creatinine 0.22 REVIEW OF SYSTEMS: Denies any chest pain. Denies shortness of breath. Denies nausea or vomiting PHYSICAL EXAMINATION: GENERAL: The patient is alert HEENT: Pupils are round and equally reacting to light. EOMI. No scleral icterus. No conjunctival pallor. Normocephalic, atraumatic. No pharyngeal erythema. No thyromegaly. CARDIOVASCULAR: S1 and S2 present. No murmurs, rubs, or gallops. PULMONARY: Chest is clear to auscultation, no wheezing or crackles. ABDOMEN: Soft, nontender, nondistended, normoactive bowel sounds. No palpable organomegaly. MUSCULOSKELETAL: No joint swelling or deformity. EXTREMITIES: No cyanosis, clubbing, or pedal edema. NEUROLOGICAL: Alert, moving all extremities SKIN: No rashes. Assessment and plan Acute hypoxic respiratory failure requiring intubation mechanical ventilation, multifactorial. Acute multifocal pneumonia, secondary to Haemophilus influenzae Acute exacerbation of COPD Acute right upper lobe pulmonary embolism as noted on CT angiogram of the chest on admission Sepsis and septic shock secondary to pneumonia, Profound hypotension on admission requiring pressors, Acute leukocytosis History of systemic candidemia Chronic urinary retention with indwelling Horn catheter History of constipation status post decompressive sigmoidoscopy in January 26, 2002 4 Type 2 diabetes Benign essential hypertension Dyslipidemia Severe protein calorie malnutrition Chronic decubitus pressure ulcer and multiple skin ulcerations involving both lower extremities. Oliguria but relatively normal functioning will try a Lasix challenge Acute metabolic encephalopathy Monitor vital signs Monitor CBC Monitor CMP Continue telemetry monitoring Continue aggressive bronchopulmonary hygiene Follow-up on blood cultures Continue Eliquis Continue IV Zosyn Continue pain management Critical care following ID following Labs and medication were reviewed.. Continue same treatment. Continue with symptomatic treatment. Resume home medication. Monitor labs and vitals. DVT and GI prophylaxis. Further recommendations as per clinical course of the patient Dictation was produced using [employer] dictation software. please excuse any grammatical, word or spelling errors. Objective - Vital Signs Vital signs: Vital Signs Temp 97.4 F L 03/19/24 08:00 Pulse 92 03/19/24 12:00 Resp 8 L 03/19/24 12:00 BP 164/96 03/19/24 12:00 Pulse Ox 95 03/19/24 12:00 FiO2 35 03/17/24 15:22 Intake & Output 03/18/24 03/19/24 03/19/24 18:59 06:59 18:59 Intake Total 2454.837 8371 790 Output Total 660 365 160 Balance 898.322 835 630 Weight 72.4 kg Intake: IV 1300 1200 250 Piperacillin-Tazobactam 3 100 .375 gm In Sodium Chloride 0.9% 100 ml @ 25 mls/hr IVPB Q8H [facility] Rx#: [id number] Sodium Chloride 0.9% 1, 100 000 ml @ 10 mls/hr IV . Q24H [facility] Rx#:[id number] Sodium Chloride 0.9% 1, 1100 1200 250 000 ml @ 50 mls/hr IV . Q20H [facility] Rx#:[id number] Intake, IV Titration 36.322 Amount Heparin Sod,Pork in 0.45% 36.322 NaCl 25,000 unit In 0.45 % NaCl 1 250ml.bag @ 18 UNITS/KG/HR 8.573 mls/hr IV .Q24H [facility] Rx#: [id number] Oral 222 540 Output: Urine 660 365 160 Other: Voiding Method Indwelling Catheter Indwelling Catheter Indwelling Catheter ABP, PAP, CO, CI - Last Documented Arterial Blood Pressure 172/78 - Labs CBC & Chem 7: 03/19/24 04:59 03/19/24 04:59 Labs: Abnormal Lab Results - Last 24 Hours (Table) 03/18/24 03/18/24 03/19/24 Range/Units 16:38 19:52 04:59 WBC 16.0 H (3.8-10.6) k/uL RBC 3.43 L (3.80-5.40) m/uL Hgb 10.8 L (11.4-16.0) gm/dL MCV 102.6 H (80.0-100.0) fL MCHC 30.8 L (31.0-37.0) g/dL Neutrophils # 14.8 H (1.3-7.7) k/uL Lymphocytes # 0.6 L (1.0-4.8) k/uL Chloride (98-107) mmol/L BUN (7-17) mg/dL Creatinine (0.52-1.04) mg/dL Glucose (74-99) mg/dL POC Glucose (mg/dL) 225 H 286 H (70-110) mg/dL 03/19/24 03/19/24 03/19/24 Range/Units 04:59 06:36 11:59 WBC (3.8-10.6) k/uL RBC (3.80-5.40) m/uL Hgb (11.4-16.0) gm/dL MCV (80.0-100.0) fL MCHC (31.0-37.0) g/dL Neutrophils # (1.3-7.7) k/uL Lymphocytes # (1.0-4.8) k/uL Chloride 112 H (98-107) mmol/L BUN 18 H (7-17) mg/dL Creatinine 0.22 L (0.52-1.04) mg/dL Glucose 177 H (74-99) mg/dL POC Glucose (mg/dL) 178 H 211 H (70-110) mg/dL Microbiology - Last 24 Hours (Table) 03/13/24 17:12 Blood Culture - Final Blood 03/13/24 17:00 Blood Culture - Final Blood
[2024-03-19] MEDS: HYDROcodone/APAP 5-325MG 1 EACH TAB PO PRN (13:11)
[2024-03-19 16:44] LABS: Glucose,Whole Blood 263 mg/dL (70-110)
[2024-03-19] MEDS: ALPRAZolam 0.25 MG TAB PO PRN (18:20)
[2024-03-19 20:49] LABS: Glucose,Whole Blood 145 mg/dL (70-110)
[2024-03-19] MEDS: DOCUSATE 100 MG CAP PO SCH (21:06)
--- NOTE | 2024-03-19 22:29 | P.PN ---
Subjective Progress Note Date: 03/19/24 Principal diagnosis: Reason for follow-up is pneumonia Patient is a 64-year-old female with a past medical history significant for diabetes mellitus hypertension hyperlipidemia COPD recently prolonged hospital stay for pneumonia patient was brought into the [facility] ER for evaluation of difficulty breathing, the patient had worsening respiratory status requiring the patient to admission to the ICU. On today's evaluation that is 03/19/2024, the patient continues to be afebrile, the patient is on room air and breathing comfortably, the Pt denies having any chest pain and cough has decreased in intensity, the patient denies having any abdominal pain no vomiting or any diarrhea has been reported by the nursing staff. Patient white count 16,000, creatinine 0.22 Objective - Vital Signs Vital signs: Vital Signs Temp 97.4 F L 03/19/24 08:00 Pulse 92 03/19/24 12:00 Resp 8 L 03/19/24 12:00 BP 164/96 03/19/24 12:00 Pulse Ox 95 03/19/24 12:00 FiO2 35 03/17/24 15:22 Intake & Output 03/18/24 03/19/24 03/19/24 18:59 06:59 18:59 Intake Total 6282.932 4459 790 Output Total 660 365 160 Balance 898.322 835 630 Weight 72.4 kg Intake: IV 1300 1200 250 Piperacillin-Tazobactam 3 100 .375 gm In Sodium Chloride 0.9% 100 ml @ 25 mls/hr IVPB Q8H [facility] Rx#: [id number] Sodium Chloride 0.9% 1, 100 000 ml @ 10 mls/hr IV . Q24H [facility] Rx#:[id number] Sodium Chloride 0.9% 1, 1100 1200 250 000 ml @ 50 mls/hr IV . Q20H [facility] Rx#:[id number] Intake, IV Titration 36.322 Amount Heparin Sod,Pork in 0.45% 36.322 NaCl 25,000 unit In 0.45 % NaCl 1 250ml.bag @ 18 UNITS/KG/HR 8.573 mls/hr IV .Q24H [facility] Rx#: [id number] Oral 222 540 Output: Urine 660 365 160 Other: Voiding Method Indwelling Catheter Indwelling Catheter Indwelling Catheter ABP, PAP, CO, CI - Last Documented Arterial Blood Pressure 172/78 - Exam GENERAL DESCRIPTION: Middle-aged female lying in bed in no distress RESPIRATORY SYSTEM: Unlabored breathing , decreased breath sounds at bases HEART: S1 S2 regular rate and rhythm , ABDOMEN: Soft , no tenderness EXTREMITIES: No edema feet - Labs CBC & Chem 7: 03/19/24 04:59 03/19/24 04:59 Labs: Abnormal Lab Results - Last 24 Hours (Table) 03/18/24 03/18/24 03/19/24 Range/Units 16:38 19:52 04:59 WBC 16.0 H (3.8-10.6) k/uL RBC 3.43 L (3.80-5.40) m/uL Hgb 10.8 L (11.4-16.0) gm/dL MCV 102.6 H (80.0-100.0) fL MCHC 30.8 L (31.0-37.0) g/dL Neutrophils # 14.8 H (1.3-7.7) k/uL Lymphocytes # 0.6 L (1.0-4.8) k/uL Chloride (98-107) mmol/L BUN (7-17) mg/dL Creatinine (0.52-1.04) mg/dL Glucose (74-99) mg/dL POC Glucose (mg/dL) 225 H 286 H (70-110) mg/dL 03/19/24 03/19/24 03/19/24 Range/Units 04:59 06:36 11:59 WBC (3.8-10.6) k/uL RBC (3.80-5.40) m/uL Hgb (11.4-16.0) gm/dL MCV (80.0-100.0) fL MCHC (31.0-37.0) g/dL Neutrophils # (1.3-7.7) k/uL Lymphocytes # (1.0-4.8) k/uL Chloride 112 H (98-107) mmol/L BUN 18 H (7-17) mg/dL Creatinine 0.22 L (0.52-1.04) mg/dL Glucose 177 H (74-99) mg/dL POC Glucose (mg/dL) 178 H 211 H (70-110) mg/dL Microbiology - Last 24 Hours (Table) 03/13/24 17:12 Blood Culture - Final Blood 03/13/24 17:00 Blood Culture - Final Blood Assessment and Plan (1) Pneumonia Current Visit: Yes Status: Acute Code(s): J18.9 - PNEUMONIA, UNSPECIFIED ORGANISM SNOMED Code(s): 333266610 (2) Sepsis Current Visit: Yes Status: Acute Code(s): A41.9 - SEPSIS, UNSPECIFIED ORGANISM SNOMED Code(s): 38429541 (3) Type 2 diabetes mellitus with other skin ulcer Current Visit: Yes Status: Acute Code(s): E11.622 - TYPE 2 DIABETES MELLITUS WITH OTHER SKIN ULCER; L98.499 - NON-PRESSURE CHRONIC ULCER OF SKIN OF SITES W UNSP SEVERITY SNOMED Code(s): 773546819 (4) Stage III pressure ulcer of sacral region Current Visit: No Status: Acute Code(s): L89.153 - PRESSURE ULCER OF SACRAL REGION, STAGE 3 SNOMED Code(s): 59845778408424 Plan: 1patient presented to hospital with sepsis in this patient who did have a low- grade fever tachycardia elevated white count source is multifactorial in this patient who did have a component of pneumonia as well as PE keeping in mind the patient has been out of the hospital we need to cover for the resistant gram- negative 2-patient did have a superficial ulcer involving lower extremities likely from ruptured blister with no evidence of any cellulitis 3-stage III pressure ulcer to the sacral area with slough tissue but no evidence of any cellulitis continue with local wound care 4-patient sputum and bronchoscopy culture growing Haemophilus influenzae 5-patient to continue with Zosyn white count is elevated more likely steroid related and will be monitored closely Dictation was produced using [employer] dictation software. please excuse any grammatical, word or spelling errors.
[2024-03-20 08:41] LABS: Glucose,Whole Blood 293 mg/dL (70-110)
[2024-03-20] MEDS: polyethylene glycoL 3350 17 GM POWD.PACK PO SCH (09:00)
[2024-03-20 11:06] LABS: Glucose,Whole Blood 297 mg/dL (70-110)
[2024-03-20] MEDS: AMOXIC-POT CLAV 875-125MG 1 EACH TAB PO SCH (11:48)
--- NOTE | 2024-03-20 12:56 | P.PN ---
Subjective Progress Note Date: 03/20/24 Patient is a 64-year-old white female with past medical history significant for COPD, diabetes mellitus, hyperlipidemia, hypertension, current everyday smoker. Of note, she was recently hospitalized January 29 through February, for suspected aspiration pneumonia and exacerbation of the patient's known COPD. She was reportedly discharged to a local ECF on courses of Augmentin and Diflucan. She did have systemic candidemia this admission. It is my impression, the patient's functional status has been gradually declining. She has been fairly sedentary. She has a decubitus pressure ulcer as well as multiple lower extremity wounds. She also has a issue with urinary retention and a chronic indwelling urinary catheter. Patient returned to the emergency department yesterday afternoon reportedly with severe difficulty in breathing. She was initially trialed on BiPAP and then intubated in the emergency department. She is unable to provide any information at this time, and no family members are present. Chest CTA performed during her previous hospitalization was negative for any acute pulmonary emboli. There were small bilateral pleural effusions with adjacent atelectasis were demonstrated. A chest CTA was repeated in the emergency department this admission, demonstrating a nonocclusive right upper lobe pulmonary embolus. No evidence of right-sided heart strain. There is small left pleural effusion, with increasing airspace opacity in the left lower lobe and right upper lobe suspicious for pneumonia. No reported witnessed aspiration events. Postintubation chest x-ray shows the endotracheal tube 3.1 cm from the kendy. Nasogastric tube courses within the gastric fundus. Most recent ABGs have a PaO2 of 358, pCO2 of 37, pH of 7.49. This was done on ventilator settings including assist-control, respiratory rate 16, tidal volume 300, FiO2 100%, and PEEP of 5. FiO2 was previously dropped to 50%. Peak pressures are 16. She is breathing slightly above set rate. Sedated on propofol which is infusing at 30 mcg/kg/min. Normal saline also infusing at 130 MLS per hour. Blood pressure has remained hypotensive despite 2.5 L normal saline bolus. She has been started on low-dose norepinephrine which is infusing at 0.03 mcg/kg/min. Previously tachycardic, and this is improved. She has also since been started on the high intensity heparin protocol. Most recent APTT was [place] btherapeutic, and drip was a appropriately adjusted. Baseline CBC has a WBC count of 29.1, hemoglobin 14, hematocrit 42.9, platelets 591. Most recent CMP includes a sodium 136, potassium 2.7, chloride 103, serum bicarb 22, BUN 15, creatinine 0.27, glucose 317. Lactic acid was 4.9 and is down to 3.4. AST 29, ALT 31, ALP 327. Total bili 0.6. Troponin 0.021. NT proBNP 846. EKG done on arrival shows sinus tachycardia with a rate of 121 bpm and T wave inversion in leads II, III and aVF. Negative for influenza, RSV, COVID. Patient empirically covered on a combination of antibiotics including azithromycin and Zosyn. Afebrile. Prognosis is guarded. Patient was evaluated on 03/15/2024, patient is in the ICU, intubated and mechanically ventilated. Patient is on assist-control rate of 16 tidal volume 300 FiO2 45% and PEEP of 5 ABG showed a pO2 of 134 pCO2 42 pH of 7.47 hence FiO2 was cut down to 35%. Patient remains hemodynamically unstable requiring norepinephrine at 0.02 mcg/kg/min. IV fluid is at 130 cc/h however this will be cut down to KVO, and the patient will receive Lasix as she has received significant amount of fluids over the last 24 hours. Urine output is marginal 10 to 20 cc an hour. Lasix will be given. Remains on propofol at 30 mcg/kg/min she is also on heparin drip, and receiving vital AF at 10 cc/h. Patient is at least 4.6 L fluid balance positive. And she remains on Zosyn. Cultures from the BAL are pending but it seems to be gram-negative bacilli mostly. Patient is on Zosyn. Blood cultures are pending, negative so far. Patient is receiving trickle enteral feeding mostly because of increased residual. WBC count today is 21.8 hemoglobin 10.1. Platelets are 427 basic metabolic profile is normal renal profile is normal Seen today on 03/16/2024, remains in the ICU intubated and mechanically ventilated. Patient is on assist-control rate 16 tidal volume 300 FiO2 35% PEEP of 5 ABG showed a pO2 of 120 pCO2 45 pH of 7.45. Patient remains on IV fluid at 100 cc/h urine output is marginal at 30 to 40 cc/h. She is receiving vital AF at 30 cc/h. Patient had haemophilus influenza cultured from her BAL/sputum and she remains on Zosyn. Clinically she is making a dramatic improvement and her chest x-ray is also improving hence I am not changing her Zosyn for now. Patient has been off sedation since yesterday, she is not following any instru ctions, she opens her eyes, but seems to be generally weak, and still not quite ready to be extubated. Hence the plan is to keep her mechanically ventilated today, will reassess in the afternoon and hopefully her mental status may improve, then we could potentially check e weaning parameters and weaning trials. Hemoglobin is 10.4. Basic metabolic profile is normal and renal profile is normal WBC count today is 10.4. Reevaluate today, patient remains in the ICU intubated and mechanically ventilated. Patient remains off sedation for the last 24 hours, earlier today she was on assist-control mode of mechanical ventilation, however during my evaluation the patient was noted to be on CPAP. Patient has very low respiratory rate, about 8 breaths/min. However she is maintaining adequate tidal volume with each breath. Patient remains on antibiotics/Zosyn for her H. influenzae pneumonia, and ABG this morning showed a pO2 of 131 pCO2 44 pH of 7.44. Chest x-ray continues to show improvement in her bilateral multifocal pneumonia. Nutrition mederos patient remains on vital AF at 50 cc/h. Remains on heparin for acute pulmonary embolism involving the right upper lobe. WBC count today is 20.4 hemoglobin is 10.5. PTT is therapeutic at 49.6, basic metabolic profile is normal and renal profile is normal Patient was evaluated today on 03/18/2024, remains in the ICU, patient was extu bated yesterday, she had successful extubation. Patient is not requiring any pressors, she is hemodynamically stable, patient is quite emotional and tearful when she realized that she is doing better than expected. Remains on heparin which I will transition to Eliquis today. She remains on Zosyn for her H. influenzae pneumonia my plan is to discontinue her art line, and cut down her Solu-Medrol to every 12 hours. I would rather continue to monitor in the ICU for the next 24 hours. Patient had to go on BiPAP postextubation yesterday temporarily 09/01/35%. WBC count today is 19.1 hemoglobin is 11 PTT is therapeutic platelets are normal basic metabolic profile is normal and renal profile is normal no chest x-ray was done today, however her chest x-ray yesterday showed improvement in her bilateral infiltrates/pneumonia Patient was reevaluated today on 03/19/2024, remains in the ICU, patient was extubated 2 days ago, tolerated the extubation well, she is comfortable, not in any form of distress. Patient is actually on room air. Patient had intermittent nausea, she remains on Zosyn for her multifocal pneumonia secondary to H. influenzae and she is also on Eliquis for her pulmonary embolism. WBC count is 16 hemoglobin 10.8 basic metabolic profile is normal The patient is seen today March 20, 2024 in follow-up in the intensive care unit. She remains a regular medical floor overflow patient. She is currently resting in bed. Awake and alert in no acute distress. Maintaining O2 saturations in the 90s on 2 L/min per nasal cannula. She has normal saline at 50 MLS per hour. Glucose 297. She is continued on DuoNeb inhalations, Symbicort. Antibiotics in the form of Zosyn. Anticoagulated with Eliquis. Objective - Vital Signs Vital signs: Vital Signs Temp 97.5 F L 03/20/24 02:00 Pulse 104 H 03/20/24 11:33 Resp 12 03/20/24 08:34 BP 154/98 03/20/24 08:34 Pulse Ox 100 03/20/24 08:34 FiO2 35 03/17/24 15:22 Intake & Output 03/19/24 03/20/24 03/20/24 18:59 06:59 18:59 Intake Total 790 Output Total 2310 Balance -1520 Weight 67.1 kg 67.1 kg Intake: IV 250 Sodium Chloride 0.9% 1, 250 000 ml @ 50 mls/hr IV . Q20H [facility] Rx#:[id number] Oral 540 Output: Urine 2310 Other: Voiding Method Indwelling Catheter Indwelling Catheter Indwelling Catheter ABP, PAP, CO, CI - Last Documented Arterial Blood Pressure 172/78 - Exam GENERAL EXAM: Reveals a pleasant 64-year-old female, somewhat anxious, on room air HEAD: Normocephalic and atraumatic EYES: Normal reaction of pupils, equal size. NOSE: Clear with pink turbinates. THROAT: No erythema or exudates. NECK: No masses, no JVD. CHEST: No chest wall deformity. LUNGS: Diminished breath sounds at the bases no crackles rhonchi or wheezes CVS: Distant S1-S2, no S3 gallop, no murmur. ABDOMEN: Soft nontender no megaly no rebound no guarding. Bowel sounds. SKIN: Decubitus unstageable pressure injury. Bilateral lower extremity wounds. Multiple superficial ulcerations noted in both lower extremities. Most of them are weeping skin lesions CENTRAL NERVOUS SYSTEM: Alert and oriented x 3, no gross focal neurologic deficit EXTREMITIES: Bipedal edema with multiple superficial skin lesions/ulcerations noted bilaterally - Labs CBC & Chem 7: 03/19/24 04:59 03/19/24 04:59 Labs: Abnormal Lab Results - Last 24 Hours (Table) 03/19/24 03/19/24 03/20/24 Range/Units 16:42 20:47 08:37 POC Glucose (mg/dL) 263 H 145 H 293 H (70-110) mg/dL 03/20/24 Range/Units 11:05 POC Glucose (mg/dL) 297 H (70-110) mg/dL Assessment and Plan Assessment: Acute hypoxic respiratory failure requiring intubation and mechanical ventilation, can [place] to acute multifocal pneumonia and COPD exacerbation and a right pulmonary embolism patient was extubated on 03/17 and tolerated the extubation well. Acute multifocal pneumonia, secondary to Haemophilus influenzae, diagnosed via bronchoscopy and BAL remains on Zosyn Acute exacerbation of COPD Acute right upper lobe pulmonary embolism as noted on CT angiogram of the chest on admission, presently on Eliquis Sepsis and septic shock secondary to pneumonia, off pressors Resolved Profound hypotension on admission requiring pressors History of systemic candidemia, completed a course of Diflucan. Chronic urinary retention with indwelling Horn catheter History of constipation status post decompressive sigmoidoscopy in January 26, 2002 4 Type 2 diabetes Benign essential hypertension Dyslipidemia Severe protein calorie malnutrition Chronic decubitus pressure ulcer and multiple skin ulcerations involving both lower extremities. Acute metabolic encephalopathy, recovered Plan: The patient was seen and evaluated Labs and medications reviewed Discontinue Zosyn Add Augmentin x 5 days Continue bronchodilators Discontinue Solu-Medrol, initiated a prednisone taper Anticoagulated with Eliquis May need subacute rehab at discharge I have personally seen and examined the patient, performed the documentation and the assessment and plan as written. Number of minutes spent on the visit: 10.
[2024-03-20 16:03] LABS: Glucose,Whole Blood 383 mg/dL (70-110)
[2024-03-20 19:55] LABS: Glucose,Whole Blood 194 mg/dL (70-110)
[2024-03-20] MEDS: ALPRAZolam 0.25 MG TAB PO SCH (21:14)
--- NOTE | 2024-03-21 02:19 | PN ---
PROGRESS NOTE She is admitted. Dr. Pathak has been seeing her for infection. She is recently checking off the vent, respiratory failure, admitted on after being on 2 L of oxygen H influenzae. She is on Augmentin . She needs physical therapy. We will consult Dr. Macdonald for physical therapy. OBJECTIVE: CARDIOVASCULAR: S1, S2. LUNGS: Scattered wheeze and rhonchi x4. Pain control 05/06. GENERAL: Poor mood and affect. NEUROLOGIC: Alert and oriented x3. VITAL SIGNS: Blood pressure 154/98, FiO2 35, temp 97.5, pulse 104. HEMATOLOGY: Negative Homans. PSYCH: Fair mood and affect. GI: Soft, nontender. UTI, type 2 diabetes mellitus, chronic pressure ulcers, metabolic encephalopathy, on oral Augmentin, bronchodilator, Solu-Medrol, Eliquis. Prognosis guarded. Continue current treatment in ICU. MMODL / IJN: [id number] /
[2024-03-21 06:20] LABS: Basophils % (A) 0 %; Eosinophils # (A) 0.1 k/uL (0-0.7); Eosinophils % (A) 1 %; HCT 34.8 % (34.0-46.0); HGB 11.1 gm/dL (11.4-16.0); Lymphocytes # (A) 1.1 k/uL (1.0-4.8); Lymphocytes % (A) 7 %; MCH 32.1 pg (25.0-35.0); MCV 100.1 fL (80.0-100.0); Macrocytosis Slight; Monocytes # (A) 0.6 k/uL (0-1.0); Monocytes % (A) 4 %; Neutrophils # (A) 12.4 k/uL (1.3-7.7); Neutrophils % (A) 87 %; Platelet Count 357 k/uL (150-450); RBC 3.47 m/uL (3.80-5.40); RDW 15.2 % (11.5-15.5); WBC 14.2 k/uL (3.8-10.6)
[2024-03-21 06:36] LABS: ALT 16 U/L (4-34); AST 18 U/L (14-36); African American GFR (CKD) >90 (>60 ml/min/1.73 sqM); Albumin 2.2 g/dL (3.5-5.0); Alkaline Phosphatase 188 U/L (38-126); Anion Gap -1 mmol/L; Blood Urea Nitrogen 10 mg/dL (7-17); Calcium 8.5 mg/dL (8.4-10.2); Carbon Dioxide 27 mmol/L (22-30); Chloride 108 mmol/L (98-107); Glucose 89 mg/dL (74-99); Non-African American GFR(CKD) >90 (>60 ml/min/1.73 sqM); Potassium 3.4 mmol/L (3.5-5.1); Sodium 134 mmol/L (137-145); Total Bilirubin 0.4 mg/dL (0.2-1.3); Total Protein 4.3 g/dL (6.3-8.2)
[2024-03-21 06:54] LABS: Glucose,Whole Blood 99 mg/dL (70-110)
--- NOTE | 2024-03-21 07:11 | P.PN ---
Subjective Progress Note Date: 03/20/24 Principal diagnosis: Reason for follow-up is pneumonia Patient is a 64-year-old female with a past medical history significant for diabetes mellitus hypertension hyperlipidemia COPD recently prolonged hospital stay for pneumonia patient was brought into the [facility] ER for evaluation of difficulty breathing, the patient had worsening respiratory status requiring the patient to admission to the ICU. On today's evaluation that is 03/20/2024, Patient is afebrile patient is currently on room air and denies having any shortness of breath, the patient denies any chest pain or any worsening cough, the patient denies any nausea vomiting did not have any abdominal pain and no diarrhea, no new symptoms. Patient did not have any lab draw today Objective - Vital Signs Vital signs: Vital Signs Temp 97.5 F L 03/20/24 02:00 Pulse 104 H 03/20/24 11:33 Resp 12 03/20/24 08:34 BP 154/98 03/20/24 08:34 Pulse Ox 100 03/20/24 08:34 FiO2 35 03/17/24 15:22 Intake & Output 03/19/24 03/20/24 03/20/24 18:59 06:59 18:59 Intake Total 790 Output Total 2310 Balance -1520 Weight 67.1 kg 67.1 kg Intake: IV 250 Sodium Chloride 0.9% 1, 250 000 ml @ 50 mls/hr IV . Q20H [facility] Rx#:[id number] Oral 540 Output: Urine 2310 Other: Voiding Method Indwelling Catheter Indwelling Catheter Indwelling Catheter ABP, PAP, CO, CI - Last Documented Arterial Blood Pressure 172/78 - Exam GENERAL DESCRIPTION: Middle-aged female lying in bed in no distress RESPIRATORY SYSTEM: Unlabored breathing , decreased breath sounds at bases HEART: S1 S2 regular rate and rhythm , ABDOMEN: Soft , no tenderness EXTREMITIES: No edema feet - Labs CBC & Chem 7: 03/21/24 06:04 03/21/24 06:04 Labs: Abnormal Lab Results - Last 24 Hours (Table) 03/19/24 03/19/24 03/20/24 Range/Units 16:42 20:47 08:37 POC Glucose (mg/dL) 263 H 145 H 293 H (70-110) mg/dL 03/20/24 Range/Units 11:05 POC Glucose (mg/dL) 297 H (70-110) mg/dL Assessment and Plan (1) Pneumonia Current Visit: Yes Status: Acute Code(s): J18.9 - PNEUMONIA, UNSPECIFIED ORGANISM SNOMED Code(s): 362898682 (2) Sepsis Current Visit: Yes Status: Acute Code(s): A41.9 - SEPSIS, UNSPECIFIED ORGANISM SNOMED Code(s): 87211358 (3) Type 2 diabetes mellitus with other skin ulcer Current Visit: Yes Status: Acute Code(s): E11.622 - TYPE 2 DIABETES MELLITUS WITH OTHER SKIN ULCER; L98.499 - NON-PRESSURE CHRONIC ULCER OF SKIN OF SITES W UNSP SEVERITY SNOMED Code(s): 089768234 (4) Stage III pressure ulcer of sacral region Current Visit: No Status: Acute Code(s): L89.153 - PRESSURE ULCER OF SACRAL REGION, STAGE 3 SNOMED Code(s): 37832648269553 Plan: 1patient presented to hospital with sepsis in this patient who did have a low- grade fever tachycardia elevated white count source is multifactorial in this patient who did have a component of pneumonia as well as PE keeping in mind the patient has been out of the hospital we need to cover for the resistant gram- negative 2-patient did have a superficial ulcer involving lower extremities likely from ruptured blister with no evidence of any cellulitis 3-stage III pressure ulcer to the sacral area with slough tissue but no evidence of any cellulitis continue with local wound care 4-patient sputum and bronchoscopy culture growing Haemophilus influenzae 5-patient antibiotic has been switched over to Augmentin by pulmonary to continue and monitor clinical course closely Dictation was produced using [employer] dictation software. please excuse any grammatical, word or spelling errors. Time with Patient: Less than 30
[2024-03-21] MEDS: POTASSIUM CHLORIDE 20 MEQ in WATER FOR INJECTION 1 100ML.BAG IVPB SCH (07:59)
[2024-03-21] MEDS: predniSONE 20 MG TAB PO SCH (08:02)
--- NOTE | 2024-03-21 10:41 | P.PN ---
Subjective Progress Note Date: 03/21/24 Patient is a 64-year-old white female with past medical history significant for COPD, diabetes mellitus, hyperlipidemia, hypertension, current everyday smoker. Of note, she was recently hospitalized January 29 through February, for suspected aspiration pneumonia and exacerbation of the patient's known COPD. She was reportedly discharged to a local ECF on courses of Augmentin and Diflucan. She did have systemic candidemia this admission. It is my impression, the patient's functional status has been gradually declining. She has been fairly sedentary. She has a decubitus pressure ulcer as well as multiple lower extremity wounds. She also has a issue with urinary retention and a chronic indwelling urinary catheter. Patient returned to the emergency department yesterday afternoon reportedly with severe difficulty in breathing. She was initially trialed on BiPAP and then intubated in the emergency department. She is unable to provide any information at this time, and no family members are present. Chest CTA performed during her previous hospitalization was negative for any acute pulmonary emboli. There were small bilateral pleural effusions with adjacent atelectasis were demonstrated. A chest CTA was repeated in the emergency department this admission, demonstrating a nonocclusive right upper lobe pulmonary embolus. No evidence of right-sided heart strain. There is small left pleural effusion, with increasing airspace opacity in the left lower lobe and right upper lobe suspicious for pneumonia. No reported witnessed aspiration events. Postintubation chest x-ray shows the endotracheal tube 3.1 cm from the kendy. Nasogastric tube courses within the gastric fundus. Most recent ABGs have a PaO2 of 358, pCO2 of 37, pH of 7.49. This was done on ventilator settings including assist-control, respiratory rate 16, tidal volume 300, FiO2 100%, and PEEP of 5. FiO2 was previously dropped to 50%. Peak pressures are 16. She is breathing slightly above set rate. Sedated on propofol which is infusing at 30 mcg/kg/min. Normal saline also infusing at 130 MLS per hour. Blood pressure has remained hypotensive despite 2.5 L normal saline bolus. She has been started on low-dose norepinephrine which is infusing at 0.03 mcg/kg/min. Previously tachycardic, and this is improved. She has also since been started on the high intensity heparin protocol. Most recent APTT was [place] btherapeutic, and drip was a appropriately adjusted. Baseline CBC has a WBC count of 29.1, hemoglobin 14, hematocrit 42.9, platelets 591. Most recent CMP includes a sodium 136, potassium 2.7, chloride 103, serum bicarb 22, BUN 15, creatinine 0.27, glucose 317. Lactic acid was 4.9 and is down to 3.4. AST 29, ALT 31, ALP 327. Total bili 0.6. Troponin 0.021. NT proBNP 846. EKG done on arrival shows sinus tachycardia with a rate of 121 bpm and T wave inversion in leads II, III and aVF. Negative for influenza, RSV, COVID. Patient empirically covered on a combination of antibiotics including azithromycin and Zosyn. Afebrile. Prognosis is guarded. Patient was evaluated on 03/15/2024, patient is in the ICU, intubated and mechanically ventilated. Patient is on assist-control rate of 16 tidal volume 300 FiO2 45% and PEEP of 5 ABG showed a pO2 of 134 pCO2 42 pH of 7.47 hence FiO2 was cut down to 35%. Patient remains hemodynamically unstable requiring norepinephrine at 0.02 mcg/kg/min. IV fluid is at 130 cc/h however this will be cut down to KVO, and the patient will receive Lasix as she has received significant amount of fluids over the last 24 hours. Urine output is marginal 10 to 20 cc an hour. Lasix will be given. Remains on propofol at 30 mcg/kg/min she is also on heparin drip, and receiving vital AF at 10 cc/h. Patient is at least 4.6 L fluid balance positive. And she remains on Zosyn. Cultures from the BAL are pending but it seems to be gram-negative bacilli mostly. Patient is on Zosyn. Blood cultures are pending, negative so far. Patient is receiving trickle enteral feeding mostly because of increased residual. WBC count today is 21.8 hemoglobin 10.1. Platelets are 427 basic metabolic profile is normal renal profile is normal Seen today on 03/16/2024, remains in the ICU intubated and mechanically ventilated. Patient is on assist-control rate 16 tidal volume 300 FiO2 35% PEEP of 5 ABG showed a pO2 of 120 pCO2 45 pH of 7.45. Patient remains on IV fluid at 100 cc/h urine output is marginal at 30 to 40 cc/h. She is receiving vital AF at 30 cc/h. Patient had haemophilus influenza cultured from her BAL/sputum and she remains on Zosyn. Clinically she is making a dramatic improvement and her chest x-ray is also improving hence I am not changing her Zosyn for now. Patient has been off sedation since yesterday, she is not following any instru ctions, she opens her eyes, but seems to be generally weak, and still not quite ready to be extubated. Hence the plan is to keep her mechanically ventilated today, will reassess in the afternoon and hopefully her mental status may improve, then we could potentially check e weaning parameters and weaning trials. Hemoglobin is 10.4. Basic metabolic profile is normal and renal profile is normal WBC count today is 10.4. Reevaluate today, patient remains in the ICU intubated and mechanically ventilated. Patient remains off sedation for the last 24 hours, earlier today she was on assist-control mode of mechanical ventilation, however during my evaluation the patient was noted to be on CPAP. Patient has very low respiratory rate, about 8 breaths/min. However she is maintaining adequate tidal volume with each breath. Patient remains on antibiotics/Zosyn for her H. influenzae pneumonia, and ABG this morning showed a pO2 of 131 pCO2 44 pH of 7.44. Chest x-ray continues to show improvement in her bilateral multifocal pneumonia. Nutrition mederos patient remains on vital AF at 50 cc/h. Remains on heparin for acute pulmonary embolism involving the right upper lobe. WBC count today is 20.4 hemoglobin is 10.5. PTT is therapeutic at 49.6, basic metabolic profile is normal and renal profile is normal Patient was evaluated today on 03/18/2024, remains in the ICU, patient was extu bated yesterday, she had successful extubation. Patient is not requiring any pressors, she is hemodynamically stable, patient is quite emotional and tearful when she realized that she is doing better than expected. Remains on heparin which I will transition to Eliquis today. She remains on Zosyn for her H. influenzae pneumonia my plan is to discontinue her art line, and cut down her Solu-Medrol to every 12 hours. I would rather continue to monitor in the ICU for the next 24 hours. Patient had to go on BiPAP postextubation yesterday temporarily 09/01/35%. WBC count today is 19.1 hemoglobin is 11 PTT is therapeutic platelets are normal basic metabolic profile is normal and renal profile is normal no chest x-ray was done today, however her chest x-ray yesterday showed improvement in her bilateral infiltrates/pneumonia Patient was reevaluated today on 03/19/2024, remains in the ICU, patient was extubated 2 days ago, tolerated the extubation well, she is comfortable, not in any form of distress. Patient is actually on room air. Patient had intermittent nausea, she remains on Zosyn for her multifocal pneumonia secondary to H. influenzae and she is also on Eliquis for her pulmonary embolism. WBC count is 16 hemoglobin 10.8 basic metabolic profile is normal The patient is seen today March 20, 2024 in follow-up in the intensive care unit. She remains a regular medical floor overflow patient. She is currently resting in bed. Awake and alert in no acute distress. Maintaining O2 saturations in the 90s on 2 L/min per nasal cannula. She has normal saline at 50 MLS per hour. Glucose 297. She is continued on DuoNeb inhalations, Symbicort. Antibiotics in the form of Zosyn. Anticoagulated with Eliquis. The patient is seen today March 21, 2024 in follow-up in the intensive care unit. She is awake and alert in no acute distress. Sitting up in bed. Maintaining O2 saturation in the 90s on room air. Normal saline at 50 MLS per hour. Continued on bronchodilators, prednisone, Augmentin. Anticoagulated with Eliquis. White count 14.2. Hemoglobin 11.1. Platelets 357. Sodium 134. Potassium 3.4. Bicarb 27. BUN 10. Creatinine 0.18. Glucose 89. Objective - Vital Signs Vital signs: Vital Signs Temp 97.9 F 03/21/24 08:00 Pulse 96 03/21/24 08:18 Resp 18 03/21/24 08:00 BP 137/74 03/21/24 08:00 Pulse Ox 97 03/21/24 08:02 FiO2 35 03/17/24 15:22 Intake & Output 03/20/24 03/21/24 03/21/24 18:59 06:59 18:59 Intake Total 237 1000 Output Total 1500 Balance 237 -500 Weight 67.1 kg 69.3 kg Intake: IV 550 Sodium Chloride 0.9% 1, 550 000 ml @ 50 mls/hr IV . Q20H [facility] Rx#:[id number] Oral 237 450 Output: Urine 1500 Other: Voiding Method Indwelling Catheter Indwelling Catheter Indwelling Catheter ABP, PAP, CO, CI - Last Documented Arterial Blood Pressure 172/78 - Exam GENERAL EXAM: Reveals a 64-year-old female, sitting comfortably in bed, on room air HEAD: Normocephalic and atraumatic EYES: Normal reaction of pupils, equal size. NOSE: Clear with pink turbinates. THROAT: No erythema or exudates. NECK: No masses, no JVD. CHEST: No chest wall deformity. LUNGS: Diminished breath sounds at the bases no crackles rhonchi or wheezes CVS: Distant S1-S2, no S3 gallop, no murmur. ABDOMEN: Soft nontender no megaly no rebound no guarding. Bowel sounds. SKIN: Decubitus unstageable pressure injury. Bilateral lower extremity wounds. Multiple superficial ulcerations noted in both lower extremities. CENTRAL NERVOUS SYSTEM: Alert and oriented x 3, no gross focal neurologic de ficit EXTREMITIES: Bipedal edema with multiple superficial skin lesions/ulcerations noted bilaterally - Labs CBC & Chem 7: 03/21/24 06:04 03/21/24 06:04 Labs: Abnormal Lab Results - Last 24 Hours (Table) 03/20/24 03/20/24 03/20/24 Range/Units 11:05 16:02 19:53 WBC (3.8-10.6) k/uL RBC (3.80-5.40) m/uL Hgb (11.4-16.0) gm/dL MCV (80.0-100.0) fL Neutrophils # (1.3-7.7) k/uL Sodium (137-145) mmol/L Potassium (3.5-5.1) mmol/L Chloride (98-107) mmol/L Creatinine (0.52-1.04) mg/dL POC Glucose (mg/dL) 297 H 383 H 194 H (70-110) mg/dL Alkaline Phosphatase (38-126) U/L Total Protein (6.3-8.2) g/dL Albumin (3.5-5.0) g/dL 03/21/24 03/21/24 Range/Units 06:04 06:04 WBC 14.2 H (3.8-10.6) k/uL RBC 3.47 L (3.80-5.40) m/uL Hgb 11.1 L (11.4-16.0) gm/dL MCV 100.1 H (80.0-100.0) fL Neutrophils # 12.4 H (1.3-7.7) k/uL Sodium 134 L (137-145) mmol/L Potassium 3.4 L (3.5-5.1) mmol/L Chloride 108 H (98-107) mmol/L Creatinine 0.18 L (0.52-1.04) mg/dL POC Glucose (mg/dL) (70-110) mg/dL Alkaline Phosphatase 188 H (38-126) U/L Total Protein 4.3 L (6.3-8.2) g/dL Albumin 2.2 L (3.5-5.0) g/dL Assessment and Plan Assessment: Acute hypoxic respiratory failure requiring intubation and mechanical ventilation, secondary to acute multifocal pneumonia and COPD exacerbation and a right pulmonary embolism patient was extubated on 03/17 and tolerated the extubation well. Acute multifocal pneumonia, secondary to Haemophilus influenzae, diagnosed via bronchoscopy and BAL remains on Augmentin Acute exacerbation of COPD Acute right upper lobe pulmonary embolism as noted on CT angiogram of the chest on admission, presently on Eliquis Sepsis and septic shock secondary to pneumonia, off pressors Resolved Profound hypotension on admission requiring pressors History of systemic candidemia, completed a course of Diflucan. Chronic urinary retention with indwelling Horn catheter History of constipation status post decompressive sigmoidoscopy in January 26, 2002 4 Type 2 diabetes Benign essential hypertension Dyslipidemia Severe protein calorie malnutrition Chronic decubitus pressure ulcer and multiple skin ulcerations involving both lower extremities. Acute metabolic encephalopathy, recovered Plan: The patient was seen and evaluated Labs and medications reviewed Continue the current treatment plan Awaiting bed on the regular medical floor Plan is for subacute rehab at discharge I have personally seen and examined the patient, performed the documentation and the assessment and plan as written. Number of minutes spent on the visit: 10.
[2024-03-21 11:50] LABS: Glucose,Whole Blood 236 mg/dL (70-110)
[2024-03-21 17:19] LABS: Glucose,Whole Blood 361 mg/dL (70-110)
--- NOTE | 2024-03-21 17:28 | P.CONS ---
History of Present Illness - Reason for Consult Consult date: 03/21/24 Rehab Needs - History of Present Illness PMR Consult Ms. Lucio is a , right handed, lives with her son in a trailer home with 4-5 RUBEN. Was independent for mobility and [employer]. She has apast medical history significant for COPD, diabetes mellitus, hyperlipidemia, hypertension, current everyday smoker. Of note, she was recently hospitalized January 29 through February, for suspected aspiration pneumonia and exacerbation of the patient's known COPD. She was reportedly discharged to a local F on courses of Augmentin and Diflucan. She did have systemic candidemia this admission. It is my impression, the patient's functional status has been gradually declining. She has been fairly sedentary. She has a decubitus pressure ulcer as well as multiple lower extremity wounds. She also has a issue with urinary retention and a chronic indwelling urinary catheter. Patient returned to the emergency department yesterday afternoon reportedly with severe difficulty in breathing. She was initially trialed on BiPAP and then intubated in the emergency department. She is unable to provide any information at this time, and no family members are present. Chest CTA performed during her previous hospitalization was negative for any acute pulmonary emboli. There were small bilateral pleural effusions with adjacent atelectasis were demonstrated. A chest CTA was repeated in the emergency department this admission, demonstrating a nonocclusive right upper lobe pulmonary embolus. No evidence of right-sided heart strain. There is small left pleural effusion, with increasing airspace opacity in the left lower lobe and right upper lobe suspicious for pneumonia. No reported witnessed aspiration events. Postintubation chest x-ray shows the endotracheal tube 3.1 cm from the kendy. Nasogastric tube courses within the gastric fundus. Most recent ABGs have a PaO2 of 358, pCO2 of 37, pH of 7.49. This was done on ventilator settings including assist-control, respiratory rate 16, tidal volume 300, FiO2 100%, and PEEP of 5. FiO2 was previously dropped to 50%. Peak pressures are 16. She is breathing slightly above set rate. Sedated on propofol which is infusing at 30 mcg/kg/min. Normal saline also infusing at 130 MLS per hour. Blood pressure has remained hypotensive despite 2.5 L normal saline bolus. She has been started on low-dose norepinephrine which is infusing at 0.03 mcg/kg/min. Previously tachycardic, and this is improved. She has also since been started on the high intensity heparin protocol. Most recent APTT was subtherapeutic, and drip was a appropriately adjusted. Baseline CBC has a WBC count of 29.1, hemoglobin 14, hematocrit 42.9, platelets 591. Most recent CMP includes a sodium 136, potassium 2.7, chloride 103, serum bicarb 22, BUN 15, creatinine 0.27, glucose 317. Lactic acid was 4.9 and is down to 3.4. AST 29, ALT 31, ALP 327. Total bili 0.6. Troponin 0.021. NT proBNP 846. EKG done on arrival shows sinus tachycardia with a rate of 121 bpm and T wave inversion in leads II, III and aVF. Negative for influenza, RSV, COVID. Patient empirically covered on a combination of antibiotics including azithromycin and Zosyn. Afebrile. Prognosis is guarded. Seen today on 03/16/2024, remains in the ICU intubated and mechanically ventilated. Patient is on assist-control rate 16 tidal volume 300 FiO2 35% PEEP of 5 ABG showed a pO2 of 120 pCO2 45 pH of 7.45. Patient remains on IV fluid at 100 cc/h urine output is marginal at 30 to 40 cc/h. She is receiving vital AF at 30 cc/h. Patient had haemophilus influenza cultured from her BAL/sputum and she remains on Zosyn. Clinically she is making a dramatic improvement and her chest x-ray is also improving hence I am not changing her Zosyn for now. Patient has been off sedation since yesterday, she is not following any instructions, she opens her eyes, but seems to be generally weak, and still not quite ready to be extubated. Hence the plan is to keep her mechanically ventilated today, will reassess in the afternoon and hopefully her mental status may improve, then we could potentially check e weaning parameters and weaning trials. Hemoglobin is 10.4. Basic metabolic profile is normal and renal profile is normal WBC count today is 10.4. Patient was evaluated today on 03/18/2024, remains in the ICU, patient was extubated yesterday, she had successful extubation. Patient is not requiring any pressors, she is hemodynamically stable, patient is quite emotional and tearful when she realized that she is doing better than expected. Remains on heparin which I will transition to Eliquis today. She remains on Zosyn for her H. influenzae pneumonia my plan is to discontinue her art line, and cut down her Solu-Medrol to every 12 hours. I would rather continue to monitor in the ICU for the next 24 hours. Patient had to go on BiPAP postextubation yesterday temporarily 12/6/35%. WBC count today is 19.1 hemoglobin is 11 PTT is therapeutic platelets are normal basic metabolic profile is normal and renal profile is normal no chest x-ray was done today, however her chest x-ray yesterday showed improvement in her bilateral infiltrates/pneumonia The patient is seen today March 21, 2024 in follow-up in the intensive care unit. She is awake and alert in no acute distress. Sitting up in bed. Maintaining O2 saturation in the 90s on room air. Normal saline at 50 MLS per hour. Continued on bronchodilators, prednisone, Augmentin. Anticoagulated with Eliquis. White count 14.2. Hemoglobin 11.1. Platelets 357. Sodium 134. Potassium 3.4. Bicarb 27. BUN 10. Creatinine 0.18. Glucose 89. 03/21/24: PMR Consulted for rehab needs. She is somewhat tearful, wants to get stronger. She has some low back pain from "previous fractures." Denies any MCCARTNEY, fatigue, SOB, CP, Abdominal pain. With therapies she has been Dependent, cannot tolerate sitting. Review of Systems + per above, o/w all systems reviewed negative. Past Medical History Past Medical History: COPD, Diabetes Mellitus, Hyperlipidemia, Hypertension History of Any Multi-Drug Resistant Organisms: None Reported Past Surgical History: Adenoidectomy, Hysterectomy, Tubal Ligation Additional Past Surgical History / Comment(s): 2 tumors removals Past Psychological History: Depression Smoking Status: Current every day smoker Past Alcohol Use History: None Reported Past Drug Use History: None Reported Medications and Allergies Home Medications Medication Instructions Recorded Confirmed Type Budesonide/Formoterol Fumarate 2 puff INHALATION RT-BID 01/29/24 03/13/24 History [Symbicort 160-4.5 Mcg Inhaler] Escitalopram [Lexapro] 10 mg PO DAILY 01/29/24 03/13/24 History Insulin Glargine,Hum.rec.anlog 15 units SQ HS 01/29/24 03/13/24 History [Lantus Solostar Pen] Insulin Lispro [Insulin Lispro 5 units SQ TID-W/MEALS 01/29/24 03/13/24 History Kwikpen U-100] Lactobacillus Rhamnosus GG 1 cap PO BID 01/29/24 03/13/24 History [Culturelle] Melatonin 3 mg PO HS PRN 01/29/24 03/13/24 History Montelukast [Singulair] 10 mg PO HS 01/29/24 03/13/24 History Nicotine 14Mg/24Hr Patch [Habitrol] 1 patch TRANSDERM DAILY 01/29/24 03/13/24 History Pioglitazone HCl 15 mg PO DAILY 01/29/24 03/13/24 History amLODIPine [Norvasc] 5 mg PO BID 01/29/24 03/13/24 History guaiFENesin [guaiFENesin ER] 600 mg PO BID 01/29/24 03/13/24 History Budesonide [Pulmicort] 1 mg INHALATION RT-BID ml 02/05/24 03/13/24 Rx Formoterol Fumarate [Perforomist] 20 mcg INHALATION RT-BID ml 02/05/24 03/13/24 Rx Ipratropium-Albuterol Nebulize 3 ml INHALATION RT-QID each 02/05/24 03/13/24 Rx [Duoneb 0.5 mg-3 mg/3 ml Soln] Pantoprazole [Protonix] 40 mg PO AC-BID tab 02/05/24 03/13/24 Rx Voriconazole [Vfend] 200 mg PO Q12HR tab 02/05/24 03/13/24 Rx Acetaminophen Tab [Tylenol] 650 mg PO Q4HR PRN tab 02/26/24 03/13/24 Rx Lactulose [Cephulac] 20 gm PO TID 30 Days #90 ml 02/26/24 03/13/24 Rx Furosemide [Lasix] 40 mg PO BID 03/13/24 03/13/24 History Allergies Allergy/AdvReac Type Severity Reaction Status Date / Time No Known Allergies Allergy Verified 03/13/24 17:23 Physical Exam Vitals: Vital Signs Temp Pulse Pulse Resp BP Pulse Ox 03/21/24 15:40 106 H 03/21/24 15:32 100 03/21/24 13:13 97.9 F 85 20 131/79 99 03/21/24 12:20 90 03/21/24 12:08 92 03/21/24 08:18 96 03/21/24 08:02 92 97 03/21/24 08:00 97.9 F 85 18 137/74 100 03/21/24 04:13 85 03/21/24 04:03 82 03/21/24 01:59 97.9 F 85 20 163/88 96 03/21/24 00:25 91 03/21/24 00:14 84 03/20/24 20:16 101 H 03/20/24 20:04 97 03/20/24 20:00 97.4 F L 89 18 152/71 95 Intake and Output 03/21/24 03/21/24 03/21/24 06:59 14:59 22:59 Intake Total 1000 Output Total 1500 1750 Balance -500 -1750 Intake: IV 550 Sodium Chloride 0.9% 1, 550 000 ml @ 50 mls/hr IV . Q20H [facility] Rx#:[id number] Oral 450 Output: Urine 1500 1750 Other: Voiding Method Indwelling Catheter Weight 69.3 kg GENERAL EXAM: NAD, alert, occasionally tearful HEAD: Normocephalic and atraumatic EYES: Normal reaction of pupils, equal size. NOSE: Clear with pink turbinates. LUNGS: Non-labored respirations, on 2L O2 CVS: Regular rate to mildly tachy ABDOMEN: Soft nontender SKIN: Decubitus unstageable pressure injury. Bilateral lower extremity wounds. Multiple superficial ulcerations noted in both lower extremities. NEURO: A&Ox4, speech fluent, CN 2-12 grossly intact MMT 3/5 bilateral UE, 1-2/5 bilateral LE SILT UE/LE EXTREMITIES: + bilateral LE edema Results CBC & Chem 7: 03/21/24 06:04 03/21/24 06:04 Labs: Abnormal Lab Results - Last 24 Hours (Table) 03/20/24 03/21/24 03/21/24 Range/Units 19:53 06:04 06:04 WBC 14.2 H (3.8-10.6) k/uL RBC 3.47 L (3.80-5.40) m/uL Hgb 11.1 L (11.4-16.0) gm/dL MCV 100.1 H (80.0-100.0) fL Neutrophils # 12.4 H (1.3-7.7) k/uL Sodium 134 L (137-145) mmol/L Potassium 3.4 L (3.5-5.1) mmol/L Chloride 108 H (98-107) mmol/L Creatinine 0.18 L (0.52-1.04) mg/dL POC Glucose (mg/dL) 194 H (70-110) mg/dL Alkaline Phosphatase 188 H (38-126) U/L Total Protein 4.3 L (6.3-8.2) g/dL Albumin 2.2 L (3.5-5.0) g/dL 03/21/24 Range/Units 11:48 WBC (3.8-10.6) k/uL RBC (3.80-5.40) m/uL Hgb (11.4-16.0) gm/dL MCV (80.0-100.0) fL Neutrophils # (1.3-7.7) k/uL Sodium (137-145) mmol/L Potassium (3.5-5.1) mmol/L Chloride (98-107) mmol/L Creatinine (0.52-1.04) mg/dL POC Glucose (mg/dL) 236 H (70-110) mg/dL Alkaline Phosphatase (38-126) U/L Total Protein (6.3-8.2) g/dL Albumin (3.5-5.0) g/dL Assessment and Plan Assessment: Decline in function/gait impairment - has been Dependent working with therapies, difficulty sitting up. Acute hypoxic respiratory failure requiring intubation and mechanical ve ntilation, secondary to acute multifocal pneumonia and COPD exacerbation and a right pulmonary embolism patient was extubated on 03/17 and tolerated the extubation well. Acute multifocal pneumonia, secondary to Haemophilus influenzae, diagnosed via bronchoscopy and BAL remains on Augmentin Acute exacerbation of COPD Acute right upper lobe pulmonary embolism as noted on CT angiogram of the chest on admission, presently on Eliquis Sepsis and septic shock secondary to pneumonia, off pressors Resolved Profound hypotension on admission requiring pressors History of systemic candidemia, completed a course of Diflucan. Chronic urinary retention with indwelling Horn catheter History of constipation status post decompressive sigmoidoscopy in January 27, 2024 Type 2 diabetes Benign essential hypertension Dyslipidemia Severe protein calorie malnutrition Chronic decubitus pressure ulcer and multiple skin ulcerations involving both lower extremities. Acute metabolic encephalopathy, recovered Recommendations: - per your medical management - continue therapies, PT/OT Unfortunately, too low level for IPR, most appropriate for FRANCISCO JAVIER when medically stable.
[2024-03-21 20:24] LABS: Glucose,Whole Blood 260 mg/dL (70-110)
--- NOTE | 2024-03-21 21:54 | PN ---
PROGRESS NOTE 64-year-old white female, remains in ICU. Today, I examined her in ICU. PHYSICAL EXAMINATION: VITAL SIGNS: Blood pressure 150s/80s, temp 97.8, pulse 100, respiratory rate 18 to 20, sat 99% on room air. CARDIOVASCULAR: S1 and S2. LUNGS: Transmitted upper sounds. GI: Soft. HEMATOLOGY: Negative Homans. PSYCH: Fair mood and affect. She is paranoid about going to the long-term. She wants to go to the long-term. I said she will go to the long-term. Recheck electrolytes and labs in the morning. She is still a little low sodium, low potassium, high white count. Continue current treatment. Infectious Disease has seen. Pulmonary has seen. Prognosis guarded. Please see further orders. PT, OT will be needed long-term. Continue oxygen. MMODL / IJN: [id number] /
[2024-03-21] MEDS: amLODIPine 5 MG TAB PO SCH (22:39)
[2024-03-21] MEDS: FUROSEMIDE 20 MG TAB PO SCH (22:39)
[2024-03-22 06:15] LABS: Glucose,Whole Blood 202 mg/dL (70-110)
[2024-03-22 08:45] LABS: Basophils # (A) 0.04 X 10*3/uL (0.00-0.10); Basophils % (A) 0.2 %; Eosinophils # (A) 0.01 X 10*3/uL (0.04-0.35); Eosinophils % (A) 0.1 %; HGB 10.2 g/dL (12.0-15.0); Lymphocytes # (A) 0.77 X 10*3/uL (0.90-5.00); Lymphocytes % (A) 4.5 %; MCHC 32.9 g/dL (32.0-37.0); MCV 97.2 FL (80.0-97.0); Mean Platelet Volume 10.2 FL (9.5-12.2); Monocytes # (A) 0.38 X 10*3/uL (0.20-1.00); Monocytes % (A) 2.2 %; NRBC Per 100 WBC 0 X 10*3/uL (0.00-0.01); Neutrophils # (A) 15.92 X 10*3/uL (1.80-7.70); Neutrophils % (A) 92.2 %; Platelet Count 312 X 10*3/uL (140-440); RBC 3.19 X 10*6/uL (4.10-5.20); RDW 15.3 % (11.5-14.5); WBC 17.25 X 10*3/uL (4.50-10.00)
[2024-03-22] MEDS: BUDESONIDE 1 MG/2 ML NEBU INHALATION SCH (08:46)
[2024-03-22] MEDS: FORMOTEROL FUMARATE 20 MCG/2 ML NEBU INHALATION SCH (08:47)
[2024-03-22 08:48] LABS: ALT 17 U/L (8-44); AST 15 U/L (13-35); Albumin 2.5 g/dL (3.8-4.9); Albumin/Globulin Ratio 1.56 Ratio (1.60-3.17); Alkaline Phosphatase 190 U/L (41-126); BUN/Creat Ratio 32.33 Ratio (12.00-20.00); Blood Urea Nitrogen 9.7 mg/dL (9.0-27.0); Calcium 8.1 mg/dL (8.7-10.3); Carbon Dioxide 25.7 mmol/L (21.6-31.8); Chloride 103 mmol/L (96-109); Globulin 1.6 g/dL (1.6-3.3); Glucose 201 mg/dL (70-110); Potassium 3.9 mmol/L (3.5-5.5); Sodium 137 mmol/L (135-145); Total Bilirubin <0.2 mg/dL (0.3-1.2); Total Protein 4.1 g/dL (6.2-8.2)
[2024-03-22] MEDS: ESCITALOPRAM 10 MG TAB PO SCH (08:53)
[2024-03-22] MEDS: IPRATROPIUM-ALBUTEROL 3 ML NEB INHALATION SCH (08:58)
[2024-03-22 11:45] LABS: Glucose,Whole Blood 373 mg/dL (70-110)
--- NOTE | 2024-03-22 13:52 | P.PN ---
Subjective Progress Note Date: 03/22/24 Principal diagnosis: Shortness of breath. Patient is a 64-year-old white female with past medical history significant for COPD, diabetes mellitus, hyperlipidemia, hypertension, current everyday smoker. Of note, she was recently hospitalized January 29 through February, for suspected aspiration pneumonia and exacerbation of the patient's known COPD. She was reportedly discharged to a local ECF on courses of Augmentin and Diflucan. She did have systemic candidemia this admission. It is my impression, the patient's functional status has been gradually declining. She has been fairly sedentary. She has a decubitus pressure ulcer as well as multiple lower extremity wounds. She also has a issue with urinary retention and a chronic indwelling urinary catheter. Patient returned to the emergency department yesterday afternoon reportedly with severe difficulty in breathing. She was initially trialed on BiPAP and then intubated in the emergency department. She is unable to provide any information at this time, and no family members are present. Chest CTA performed during her previous hospitalization was negative for any acute pulmonary emboli. There were small bilateral pleural effusions with adjacent atelectasis were demonstrated. A chest CTA was repeated in the emergency department this admission, demonstrating a nonocclusive right upper lobe pulmonary embolus. No evidence of right-sided heart strain. There is small left pleural effusion, with increasing airspace opacity in the left lower lobe and right upper lobe suspicious for pneumonia. No reported witnessed aspiration events. Postintubation chest x-ray shows the endotracheal tube 3.1 cm from the c lay. Nasogastric tube courses within the gastric fundus. Most recent ABGs have a PaO2 of 358, pCO2 of 37, pH of 7.49. This was done on ventilator settings including assist-control, respiratory rate 16, tidal volume 300, FiO2 100%, and PEEP of 5. FiO2 was previously dropped to 50%. Peak pressures are 16. She is breathing slightly above set rate. Sedated on propofol which is infusing at 30 mcg/kg/min. Normal saline also infusing at 130 MLS per hour. Blood pressure has remained hypotensive despite 2.5 L normal saline bolus. She has been started on low-dose norepinephrine which is infusing at 0.03 mcg/kg/min. Previously tachycardic, and this is improved. She has also since been started on the high intensity heparin protocol. Most recent APTT was subtherapeutic, and drip was a appropriately adjusted. Baseline CBC has a WBC count of 29.1, hemoglobin 14, hematocrit 42.9, platelets 591. Most recent CMP includes a sodium 136, potassium 2.7, chloride 103, serum bicarb 22, BUN 15, creatinine 0.27, glucose 317. Lactic acid was 4.9 and is down to 3.4. AST 29, ALT 31, ALP 327. Total bili 0.6. Troponin 0.021. NT proBNP 846. EKG done on arrival shows sinus tachycardia with a rate of 121 bpm and T wave inversion in leads II, III and aVF. Negative for influenza, RSV, COVID. Patient empirically covered on a combination of antibiotics including azithromycin and Zosyn. Afebr ile. Prognosis is guarded. Patient was evaluated on 03/15/2024, patient is in the ICU, intubated and mechanically ventilated. Patient is on assist-control rate of 16 tidal volume 300 FiO2 45% and PEEP of 5 ABG showed a pO2 of 134 pCO2 42 pH of 7.47 hence FiO2 was cut down to 35%. Patient remains hemodynamically unstable requiring norepinephrine at 0.02 mcg/kg/min. IV fluid is at 130 cc/h however this will be cut down to KVO, and the patient will receive Lasix as she has received significant amount of fluids over the last 24 hours. Urine output is marginal 10 to 20 cc an hour. Lasix will be given. Remains on propofol at 30 mcg/kg/min she is also on heparin drip, and receiving vital AF at 10 cc/h. Patient is at least 4.6 L fluid balance positive. And she remains on Zosyn. Cultures from the BAL are pending but it seems to be gram-negative bacilli mostly. Patient is on Zosyn. Blood cultures are pending, negative so far. Patient is receiving trickle enteral feeding mostly because of increased residual. WBC count today is 21.8 hemoglobin 10.1. Platelets are 427 basic metabolic profile is normal renal profile is normal Seen today on 03/16/2024, remains in the ICU intubated and mechanically ventilated. Patient is on assist-control rate 16 tidal volume 300 FiO2 35% PEEP of 5 ABG showed a pO2 of 120 pCO2 45 pH of 7.45. Patient remains on IV fluid at 100 cc/h urine output is marginal at 30 to 40 cc/h. She is receiving vital AF at 30 cc/h. Patient had haemophilus influenza cultured from her BAL/sputum and she remains on Zosyn. Clinically she is making a dramatic improvement and her chest x-ray is also improving hence I am not changing her Zosyn for now. Patient has been off sedation since yesterday, she is not following any instructions, she opens her eyes, but seems to be generally weak, and still not quite ready to be extubated. Hence the plan is to keep her mechanically ventilated today, will reassess in the afternoon and hopefully her mental status may improve, then we could potentially check e weaning parameters and weaning trials. Hemoglobin is 10.4. Basic metabolic profile is normal and renal profile is normal WBC count today is 10.4. Reevaluate today, patient remains in the ICU intubated and mechanically ventilated. Patient remains off sedation for the last 24 hours, earlier today she was on assist-control mode of mechanical ventilation, however during my evaluation the patient was noted to be on CPAP. Patient has very low resp iratory rate, about 8 breaths/min. However she is maintaining adequate tidal volume with each breath. Patient remains on antibiotics/Zosyn for her H. influenzae pneumonia, and ABG this morning showed a pO2 of 131 pCO2 44 pH of 7.44. Chest x-ray continues to show improvement in her bilateral multifocal pneumonia. Nutrition mederos patient remains on vital AF at 50 cc/h. Remains on heparin for acute pulmonary embolism involving the right upper lobe. WBC count today is 20.4 hemoglobin is 10.5. PTT is therapeutic at 49.6, basic metabolic profile is normal and renal profile is normal Patient was evaluated today on 03/18/2024, remains in the ICU, patient was extubated yesterday, she had successful extubation. Patient is not requiring any pressors, she is hemodynamically stable, patient is quite emotional and tearful when she realized that she is doing better than expected. Remains on heparin which I will transition to Eliquis today. She remains on Zosyn for her H. influenzae pneumonia my plan is to discontinue her art line, and cut down her Solu-Medrol to every 12 hours. I would rather continue to monitor in the ICU for the next 24 hours. Patient had to go on BiPAP postextubation yesterday temporarily 09/01/35%. WBC count today is 19.1 hemoglobin is 11 PTT is therapeutic platelets are normal basic metabolic profile is normal and renal profile is normal no chest x-ray was done today, however her chest x-ray yesterday showed improvement in her bilateral infiltrates/pneumonia Patient was reevaluated today on 03/19/2024, remains in the ICU, patient was extubated 2 days ago, tolerated the extubation well, she is comfortable, not in any form of distress. Patient is actually on room air. Patient had intermittent nausea, she remains on Zosyn for her multifocal pneumonia secondary to H. influenzae and she is also on Eliquis for her pulmonary embolism. WBC count is 16 hemoglobin 10.8 basic metabolic profile is normal The patient is seen today March 20, 2024 in follow-up in the intensive care unit. She remains a regular medical floor overflow patient. She is currently resting in bed. Awake and alert in no acute distress. Maintaining O2 saturations in the 90s on 2 L/min per nasal cannula. She has normal saline at 50 MLS per hour. Glucose 297. She is continued on DuoNeb inhalations, Symbicort. Antibiotics in the form of Zosyn. Anticoagulated with Eliquis. The patient is seen today March 21, 2024 in follow-up in the intensive care unit. She is awake and alert in no acute distress. Sitting up in bed. Maintaining O2 saturation in the 90s on room air. Normal saline at 50 MLS per hour. Continued on bronchodilators, prednisone, Augmentin. Anticoagulated with Eliquis. White count 14.2. Hemoglobin 11.1. Platelets 357. Sodium 134. Potassium 3.4. Bicarb 27. BUN 10. Creatinine 0.18. Glucose 89. Progress note dated March 22, 2024. The patient is seen today in room 451. Previously she was in the intensive care unit. Currently, she is resting comfortably. She is on room air. She is getting saline at 50 cc an hour. Her lower extremities have been wrapped with bandages. She has no specific complaints today. Current labs include a white count of 17.3, hemoglobin 10.2, hematocrit 31, and a normal platelet count. Sodium 137, potassium 3.9, chloride 103, CO2 26, BUN 9.7, and creatinine 0.3. Glucose is 373. Albumin is 2.5. Calcium is 8.1. Sputum Gram stain, and bronchial washings both show evidence of Haemophilus influenzae. Objective - Vital Signs Vital signs: Vital Signs Temp 97.4 F L 03/22/24 07:32 Pulse 90 03/22/24 12:24 Resp 16 03/22/24 07:32 BP 155/80 03/22/24 07:32 Pulse Ox 97 03/22/24 08:52 FiO2 35 03/17/24 15:22 Intake & Output 03/21/24 03/22/24 03/22/24 18:59 06:59 18:59 Output Total 1750 1100 Balance -1750 -1100 Weight 66 kg Output: Urine 1750 1100 Other: Voiding Method Indwelling Catheter Indwelling Catheter # Bowel Movements 1 ABP, PAP, CO, CI - Last Documented Arterial Blood Pressure 172/78 - Exam No acute distress, oriented 3. No respiratory distress. No use of accessory muscles. No conversational dyspnea. HEENT examination is grossly unremarkable. Mucous membranes are moist. No oral lesions. Neck supple. Full range of motion. No adenopathy thyromegaly or neck vein distention. Cardiovascular examination reveals regular rhythm rate. S1-S2 normal. No S3 or S4. No discernible murmur noted. Heart rate 90 bpm. Lungs reveal expiratory rhonchi. No wheezes or crackles. Breath sounds equal. Breath sounds are diminished throughout. Abdomen soft bowel sounds are heard. No masses or tenderness. Extremities are intact. No cyanosis clubbing or edema. The lower extremities are wrapped with NELI bandages. Skin is without rash or lesion. Neurologic examination is brief but nonfocal. - Labs CBC & Chem 7: 03/22/24 03:46 03/22/24 03:46 Labs: Abnormal Lab Results - Last 24 Hours (Table) 03/21/24 03/21/24 03/22/24 Range/Units 17:17 20:22 03:46 WBC 17.25 H (4.50-10.00) X 10*3/uL RBC 3.19 L (4.10-5.20) X 10*6/uL Hgb 10.2 L (12.0-15.0) g/dL Hct 31.0 L (37.2-46.3) % MCV 97.2 H (80.0-97.0) FL RDW 15.3 H (11.5-14.5) % Immature Gran # 0.13 H (0.00-0.04) X 10*3/uL Neutrophils # 15.92 H (1.80-7.70) X 10*3/uL Lymphocytes # 0.77 L (0.90-5.00) X 10*3/uL Eosinophils # 0.01 L (0.04-0.35) X 10*3/uL Creatinine (0.6-1.5) mg/dL BUN/Creatinine Ratio (12.00-20.00) Ratio Glucose (70-110) mg/dL POC Glucose (mg/dL) 361 H 260 H (70-110) mg/dL Calcium (8.7-10.3) mg/dL Total Bilirubin (0.3-1.2) mg/dL Alkaline Phosphatase (41-126) U/L Total Protein (6.2-8.2) g/dL Albumin (3.8-4.9) g/dL Albumin/Globulin Ratio (1.60-3.17) Ratio 03/22/24 03/22/24 03/22/24 Range/Units 03:46 06:13 11:43 WBC (4.50-10.00) X 10*3/uL RBC (4.10-5.20) X 10*6/uL Hgb (12.0-15.0) g/dL Hct (37.2-46.3) % MCV (80.0-97.0) FL RDW (11.5-14.5) % Immature Gran # (0.00-0.04) X 10*3/uL Neutrophils # (1.80-7.70) X 10*3/uL Lymphocytes # (0.90-5.00) X 10*3/uL Eosinophils # (0.04-0.35) X 10*3/uL Creatinine 0.3 L (0.6-1.5) mg/dL BUN/Creatinine Ratio 32.33 H (12.00-20.00) Ratio Glucose 201 H (70-110) mg/dL POC Glucose (mg/dL) 202 H 373 H (70-110) mg/dL Calcium 8.1 L (8.7-10.3) mg/dL Total Bilirubin <0.2 L (0.3-1.2) mg/dL Alkaline Phosphatase 190 H (41-126) U/L Total Protein 4.1 L (6.2-8.2) g/dL Albumin 2.5 L (3.8-4.9) g/dL Albumin/Globulin Ratio 1.56 L (1.60-3.17) Ratio Microbiology - Last 24 Hours (Table) 03/14/24 11:00 Fungal Culture - Preliminary Bronchial Washings - Random Yeast species Assessment and Plan Assessment: Acute hypoxic respiratory failure requiring intubation and mechanical ventilation, secondary to acute multifocal pneumonia and COPD exacerbation and a right pulmonary embolism. S/P extubation on March 17, 2024. Acute multifocal pneumonia, secondary to Haemophilus influenzae. Acute exacerbation of COPD. Acute right upper lobe pulmonary embolism as noted on CT angiogram. Sepsis and septic shock secondary to pneumonia. Profound hypotension on admission requiring pressors History of systemic candidemia. Chronic urinary retention. History of constipation status post decompressive sigmoidoscopy in January 27, 2024. Type 2 diabetes. Benign essential hypertension. Dyslipidemia. Severe protein calorie malnutrition. Chronic decubitus pressure ulcer and multiple skin ulcerations involving both lower extremities. Acute metabolic encephalopathy, recovered. Plan: Plan dated March 22, 2024. The patient is seen today in room 451. She is on room air. The patient is getting saline at 50 cc an hour. Labs, x-rays, and medications are reviewed. The patient is overall prognosis remains very guarded. We will continue to follow and make recommendations were appropriate. A copy of our note will go to the primary service. Prognosis is guarded. Time with Patient: Less than 30
[2024-03-22 16:50] LABS: Glucose,Whole Blood 302 mg/dL (70-110)
[2024-03-22 20:37] LABS: Glucose,Whole Blood 298 mg/dL (70-110)
[2024-03-23 06:39] LABS: Glucose,Whole Blood 185 mg/dL (70-110)
[2024-03-23 11:45] LABS: Glucose,Whole Blood 333 mg/dL (70-110)
--- NOTE | 2024-03-23 13:35 | P.PN ---
Subjective Progress Note Date: 03/23/24 Principal diagnosis: Shortness of breath. Patient is a 64-year-old white female with past medical history significant for COPD, diabetes mellitus, hyperlipidemia, hypertension, current everyday smoker. Of note, she was recently hospitalized January 29 through February, for suspected aspiration pneumonia and exacerbation of the patient's known COPD. She was reportedly discharged to a local ECF on courses of Augmentin and Diflucan. She did have systemic candidemia this admission. It is my impression, the patient's functional status has been gradually declining. She has been fairly sedentary. She has a decubitus pressure ulcer as well as multiple lower extremity wounds. She also has a issue with urinary retention and a chronic indwelling urinary catheter. Patient returned to the emergency department yesterday afternoon reportedly with severe difficulty in breathing. She was initially trialed on BiPAP and then intubated in the emergency department. She is unable to provide any information at this time, and no family members are present. Chest CTA performed during her previous hospitalization was negative for any acute pulmonary emboli. There were small bilateral pleural effusions with adjacent atelectasis were demonstrated. A chest CTA was repeated in the emergency department this admission, demonstrating a nonocclusive right upper lobe pulmonary embolus. No evidence of right-sided heart strain. There is small left pleural effusion, with increasing airspace opacity in the left lower lobe and right upper lobe suspicious for pneumonia. No reported witnessed aspiration events. Postintubation chest x-ray shows the endotracheal tube 3.1 cm from the c lay. Nasogastric tube courses within the gastric fundus. Most recent ABGs have a PaO2 of 358, pCO2 of 37, pH of 7.49. This was done on ventilator settings including assist-control, respiratory rate 16, tidal volume 300, FiO2 100%, and PEEP of 5. FiO2 was previously dropped to 50%. Peak pressures are 16. She is breathing slightly above set rate. Sedated on propofol which is infusing at 30 mcg/kg/min. Normal saline also infusing at 130 MLS per hour. Blood pressure has remained hypotensive despite 2.5 L normal saline bolus. She has been started on low-dose norepinephrine which is infusing at 0.03 mcg/kg/min. Previously tachycardic, and this is improved. She has also since been started on the high intensity heparin protocol. Most recent APTT was subtherapeutic, and drip was a appropriately adjusted. Baseline CBC has a WBC count of 29.1, hemoglobin 14, hematocrit 42.9, platelets 591. Most recent CMP includes a sodium 136, potassium 2.7, chloride 103, serum bicarb 22, BUN 15, creatinine 0.27, glucose 317. Lactic acid was 4.9 and is down to 3.4. AST 29, ALT 31, ALP 327. Total bili 0.6. Troponin 0.021. NT proBNP 846. EKG done on arrival shows sinus tachycardia with a rate of 121 bpm and T wave inversion in leads II, III and aVF. Negative for influenza, RSV, COVID. Patient empirically covered on a combination of antibiotics including azithromycin and Zosyn. Afebr ile. Prognosis is guarded. Patient was evaluated on 03/15/2024, patient is in the ICU, intubated and mechanically ventilated. Patient is on assist-control rate of 16 tidal volume 300 FiO2 45% and PEEP of 5 ABG showed a pO2 of 134 pCO2 42 pH of 7.47 hence FiO2 was cut down to 35%. Patient remains hemodynamically unstable requiring norepinephrine at 0.02 mcg/kg/min. IV fluid is at 130 cc/h however this will be cut down to KVO, and the patient will receive Lasix as she has received significant amount of fluids over the last 24 hours. Urine output is marginal 10 to 20 cc an hour. Lasix will be given. Remains on propofol at 30 mcg/kg/min she is also on heparin drip, and receiving vital AF at 10 cc/h. Patient is at least 4.6 L fluid balance positive. And she remains on Zosyn. Cultures from the BAL are pending but it seems to be gram-negative bacilli mostly. Patient is on Zosyn. Blood cultures are pending, negative so far. Patient is receiving trickle enteral feeding mostly because of increased residual. WBC count today is 21.8 hemoglobin 10.1. Platelets are 427 basic metabolic profile is normal renal profile is normal Seen today on 03/16/2024, remains in the ICU intubated and mechanically ventilated. Patient is on assist-control rate 16 tidal volume 300 FiO2 35% PEEP of 5 ABG showed a pO2 of 120 pCO2 45 pH of 7.45. Patient remains on IV fluid at 100 cc/h urine output is marginal at 30 to 40 cc/h. She is receiving vital AF at 30 cc/h. Patient had haemophilus influenza cultured from her BAL/sputum and she remains on Zosyn. Clinically she is making a dramatic improvement and her chest x-ray is also improving hence I am not changing her Zosyn for now. Patient has been off sedation since yesterday, she is not following any instructions, she opens her eyes, but seems to be generally weak, and still not quite ready to be extubated. Hence the plan is to keep her mechanically ventilated today, will reassess in the afternoon and hopefully her mental status may improve, then we could potentially check e weaning parameters and weaning trials. Hemoglobin is 10.4. Basic metabolic profile is normal and renal profile is normal WBC count today is 10.4. Reevaluate today, patient remains in the ICU intubated and mechanically ventilated. Patient remains off sedation for the last 24 hours, earlier today she was on assist-control mode of mechanical ventilation, however during my evaluation the patient was noted to be on CPAP. Patient has very low resp iratory rate, about 8 breaths/min. However she is maintaining adequate tidal volume with each breath. Patient remains on antibiotics/Zosyn for her H. influenzae pneumonia, and ABG this morning showed a pO2 of 131 pCO2 44 pH of 7.44. Chest x-ray continues to show improvement in her bilateral multifocal pneumonia. Nutrition mederos patient remains on vital AF at 50 cc/h. Remains on heparin for acute pulmonary embolism involving the right upper lobe. WBC count today is 20.4 hemoglobin is 10.5. PTT is therapeutic at 49.6, basic metabolic profile is normal and renal profile is normal Patient was evaluated today on 03/18/2024, remains in the ICU, patient was extubated yesterday, she had successful extubation. Patient is not requiring any pressors, she is hemodynamically stable, patient is quite emotional and tearful when she realized that she is doing better than expected. Remains on heparin which I will transition to Eliquis today. She remains on Zosyn for her H. influenzae pneumonia my plan is to discontinue her art line, and cut down her Solu-Medrol to every 12 hours. I would rather continue to monitor in the ICU for the next 24 hours. Patient had to go on BiPAP postextubation yesterday temporarily 09/01/35%. WBC count today is 19.1 hemoglobin is 11 PTT is therapeutic platelets are normal basic metabolic profile is normal and renal profile is normal no chest x-ray was done today, however her chest x-ray yesterday showed improvement in her bilateral infiltrates/pneumonia Patient was reevaluated today on 03/19/2024, remains in the ICU, patient was extubated 2 days ago, tolerated the extubation well, she is comfortable, not in any form of distress. Patient is actually on room air. Patient had intermittent nausea, she remains on Zosyn for her multifocal pneumonia secondary to H. influenzae and she is also on Eliquis for her pulmonary embolism. WBC count is 16 hemoglobin 10.8 basic metabolic profile is normal The patient is seen today March 20, 2024 in follow-up in the intensive care unit. She remains a regular medical floor overflow patient. She is currently resting in bed. Awake and alert in no acute distress. Maintaining O2 saturations in the 90s on 2 L/min per nasal cannula. She has normal saline at 50 MLS per hour. Glucose 297. She is continued on DuoNeb inhalations, Symbicort. Antibiotics in the form of Zosyn. Anticoagulated with Eliquis. The patient is seen today March 21, 2024 in follow-up in the intensive care unit. She is awake and alert in no acute distress. Sitting up in bed. Maintaining O2 saturation in the 90s on room air. Normal saline at 50 MLS per hour. Continued on bronchodilators, prednisone, Augmentin. Anticoagulated with Eliquis. White count 14.2. Hemoglobin 11.1. Platelets 357. Sodium 134. Potassium 3.4. Bicarb 27. BUN 10. Creatinine 0.18. Glucose 89. Progress note dated March 22, 2024. The patient is seen today in room 451. Previously she was in the intensive care unit. Currently, she is resting comfortably. She is on room air. She is getting saline at 50 cc an hour. Her lower extremities have been wrapped with bandages. She has no specific complaints today. Current labs include a white count of 17.3, hemoglobin 10.2, hematocrit 31, and a normal platelet count. Sodium 137, potassium 3.9, chloride 103, CO2 26, BUN 9.7, and creatinine 0.3. Glucose is 373. Albumin is 2.5. Calcium is 8.1. Sputum Gram stain, and bronchial washings both show evidence of Haemophilus influenzae. Progress note dated March 23, 2024. The patient is seen today in room 451. She is on room air. She is currently on Augmentin. She is getting saline at 50 cc an hour. The patient's formoterol and budesonide will be converted to Symbicort. The patient apparently will be discharged to one of the local nursing homes, I believe [facility]. Current labs include a glucose of 333. Bronchial washings and sputum are previously positive for Haemophilus influenzae. Objective - Vital Signs Vital signs: Vital Signs Temp 97.6 F 03/23/24 12:29 Pulse 84 03/23/24 12:55 Resp 16 03/23/24 12:29 BP 155/80 03/23/24 12:29 Pulse Ox 97 03/23/24 09:34 FiO2 35 03/17/24 15:22 Intake & Output 03/22/24 03/23/24 03/23/24 18:59 06:59 18:59 Output Total 1100 480 Balance -1100 -480 Weight 59.5 kg Output: Urine 1100 480 Other: Voiding Method Indwelling Catheter Indwelling Catheter # Bowel Movements 1 1 ABP, PAP, CO, CI - Last Documented Arterial Blood Pressure 172/78 - Exam No acute distress, oriented 3. No respiratory distress. No use of accessory muscles. No conversational dyspnea. HEENT examination is grossly unremarkable. Mucous membranes are moist. No oral lesions. Neck supple. Full range of motion. No adenopathy thyromegaly or neck vein distention. Cardiovascular examination reveals regular rhythm rate. S1-S2 normal. No S3 or S4. No discernible murmur noted. Heart rate 84 bpm. Lungs reveal expiratory rhonchi. No wheezes or crackles. Breath sounds equal. Breath sounds are diminished throughout. Abdomen soft bowel sounds are heard. No masses or tenderness. Extremities are intact. No cyanosis clubbing or edema. The lower extremities are wrapped with NELI bandages. Skin is without rash or lesion. Neurologic examination is brief but nonfocal. - Labs CBC & Chem 7: 03/22/24 03:46 03/22/24 03:46 Labs: Abnormal Lab Results - Last 24 Hours (Table) 03/22/24 03/22/24 03/23/24 Range/Units 16:48 20:34 06:36 POC Glucose (mg/dL) 302 H 298 H 185 H (70-110) mg/dL 03/23/24 Range/Units 11:43 POC Glucose (mg/dL) 333 H (70-110) mg/dL Microbiology - Last 24 Hours (Table) 03/14/24 11:00 Fungal Culture - Preliminary Bronchial Washings - Random Yeast species Assessment and Plan Assessment: Acute hypoxic respiratory failure requiring intubation and mechanical ventilation, secondary to acute multifocal pneumonia and COPD exacerbation and a right pulmonary embolism. S/P extubation on March 17, 2024. Acute multifocal pneumonia, secondary to Haemophilus influenzae. Acute exacerbation of COPD. Acute right upper lobe pulmonary embolism as noted on CT angiogram. Sepsis and septic shock secondary to pneumonia. Profound hypotension on admission requiring pressors History of systemic candidemia. Chronic urinary retention. History of constipation status post decompressive sigmoidoscopy in January 27, 2024. Type 2 diabetes. Benign essential hypertension. Dyslipidemia. Severe protein calorie malnutrition. Chronic decubitus pressure ulcer and multiple skin ulcerations involving both lower extremities. Acute metabolic encephalopathy, recovered. Plan: Plan dated March 22, 2024. The patient is seen today in room 451. She is on room air. The patient is getting saline at 50 cc an hour. Labs, x-rays, and medications are reviewed. The patient is overall prognosis remains very guarded. We will continue to follow and make recommendations were appropriate. A copy of our note will go to the primary service. Prognosis is guarded. Plan dated March 23, 2024. The patient is apparently being evaluated for transfer, to [facility]. The patient's formoterol, and budesonide, are switched to Symbicort, 160/4.5, 2 puffs twice a day. In addition, the patient saline IV can be discontinued. She continues on Augmentin, and updrafts. She also continues on prednisone. She is currently on room air. Labs, x-rays, and medications are reviewed. Prognosis is guarded. We will continue to follow the patient, and make recommendations along the way. Time with Patient: Less than 30
--- NOTE | 2024-03-23 15:31 | P.PN ---
Subjective Progress Note Date: 03/22/24 Principal diagnosis: Reason for follow-up is pneumonia Patient is a 64-year-old female with a past medical history significant for diabetes mellitus hypertension hyperlipidemia COPD recently prolonged hospital stay for pneumonia patient was brought into the [facility] ER for evaluation of difficulty breathing, the patient had worsening respiratory status requiring the patient to admission to the ICU. On today's evaluation that is 03/22/2024, Patient is afebrile this morning and denies any chills, patient mention breathing comfortably and is currently on room air, patient denies any chest pain, patient cough has decreased in intensity not bring up any sputum patient denies any abdominal pain no diarrhea no nausea no vomiting Patient had a white count of 17.25 creatinine 0.3 Objective - Vital Signs Vital signs: Vital Signs Temp 97.7 F 03/22/24 14:00 Pulse 97 03/22/24 14:00 Resp 16 03/22/24 14:00 BP 145/82 03/22/24 14:00 Pulse Ox 97 03/22/24 14:00 FiO2 35 03/17/24 15:22 Intake & Output 03/21/24 03/22/24 03/22/24 18:59 06:59 18:59 Output Total 1750 1100 Balance -1750 -1100 Weight 66 kg Output: Urine 1750 1100 Other: Voiding Method Indwelling Catheter Indwelling Catheter # Bowel Movements 1 ABP, PAP, CO, CI - Last Documented Arterial Blood Pressure 172/78 - Exam GENERAL DESCRIPTION: Middle-aged female lying in bed in no distress RESPIRATORY SYSTEM: Unlabored breathing , decreased breath sounds at bases HEART: S1 S2 regular rate and rhythm , ABDOMEN: Soft , no tenderness EXTREMITIES: No edema feet - Labs CBC & Chem 7: 03/22/24 03:46 03/22/24 03:46 Labs: Abnormal Lab Results - Last 24 Hours (Table) 03/21/24 03/21/24 03/22/24 Range/Units 17:17 20:22 03:46 WBC 17.25 H (4.50-10.00) X 10*3/uL RBC 3.19 L (4.10-5.20) X 10*6/uL Hgb 10.2 L (12.0-15.0) g/dL Hct 31.0 L (37.2-46.3) % MCV 97.2 H (80.0-97.0) FL RDW 15.3 H (11.5-14.5) % Immature Gran # 0.13 H (0.00-0.04) X 10*3/uL Neutrophils # 15.92 H (1.80-7.70) X 10*3/uL Lymphocytes # 0.77 L (0.90-5.00) X 10*3/uL Eosinophils # 0.01 L (0.04-0.35) X 10*3/uL Creatinine (0.6-1.5) mg/dL BUN/Creatinine Ratio (12.00-20.00) Ratio Glucose (70-110) mg/dL POC Glucose (mg/dL) 361 H 260 H (70-110) mg/dL Calcium (8.7-10.3) mg/dL Total Bilirubin (0.3-1.2) mg/dL Alkaline Phosphatase (41-126) U/L Total Protein (6.2-8.2) g/dL Albumin (3.8-4.9) g/dL Albumin/Globulin Ratio (1.60-3.17) Ratio 03/22/24 03/22/24 03/22/24 Range/Units 03:46 06:13 11:43 WBC (4.50-10.00) X 10*3/uL RBC (4.10-5.20) X 10*6/uL Hgb (12.0-15.0) g/dL Hct (37.2-46.3) % MCV (80.0-97.0) FL RDW (11.5-14.5) % Immature Gran # (0.00-0.04) X 10*3/uL Neutrophils # (1.80-7.70) X 10*3/uL Lymphocytes # (0.90-5.00) X 10*3/uL Eosinophils # (0.04-0.35) X 10*3/uL Creatinine 0.3 L (0.6-1.5) mg/dL BUN/Creatinine Ratio 32.33 H (12.00-20.00) Ratio Glucose 201 H (70-110) mg/dL POC Glucose (mg/dL) 202 H 373 H (70-110) mg/dL Calcium 8.1 L (8.7-10.3) mg/dL Total Bilirubin <0.2 L (0.3-1.2) mg/dL Alkaline Phosphatase 190 H (41-126) U/L Total Protein 4.1 L (6.2-8.2) g/dL Albumin 2.5 L (3.8-4.9) g/dL Albumin/Globulin Ratio 1.56 L (1.60-3.17) Ratio Microbiology - Last 24 Hours (Table) 03/14/24 11:00 Fungal Culture - Preliminary Bronchial Washings - Random Yeast species Assessment and Plan (1) Pneumonia Current Visit: Yes Status: Acute Code(s): J18.9 - PNEUMONIA, UNSPECIFIED ORGANISM SNOMED Code(s): 614356452 (2) Sepsis Current Visit: Yes Status: Acute Code(s): A41.9 - SEPSIS, UNSPECIFIED ORGANISM SNOMED Code(s): 68240686 (3) Type 2 diabetes mellitus with other skin ulcer Current Visit: Yes Status: Acute Code(s): E11.622 - TYPE 2 DIABETES MELLITUS WITH OTHER SKIN ULCER; L98.499 - NON-PRESSURE CHRONIC ULCER OF SKIN OF SITES W UNSP SEVERITY SNOMED Code(s): 861291425 (4) Stage III pressure ulcer of sacral region Current Visit: No Status: Acute Code(s): L89.153 - PRESSURE ULCER OF SACRAL REGION, STAGE 3 SNOMED Code(s): 84311737938635 Plan: 1patient presented to hospital with sepsis in this patient who did have a low- grade fever tachycardia elevated white count source is multifactorial in this patient who did have a component of pneumonia as well as PE keeping in mind the patient has been out of the hospital we need to cover for the resistant gram- negative 2-patient did have a superficial ulcer involving lower extremities likely from ruptured blister with no evidence of any cellulitis 3-stage III pressure ulcer to the sacral area with slough tissue but no evidence of any cellulitis continue with local wound care 4-patient sputum and bronchoscopy culture growing Haemophilus influenzae 5-patient to continue with the Augmentin leukocytosis more likely steroid related and will monitor closely Dictation was produced using [employer] dictation software. please excuse any grammatical, word or spelling errors. Time with Patient: Less than 30
--- NOTE | 2024-03-23 15:33 | P.PN ---
Subjective Progress Note Date: 03/23/24 Principal diagnosis: Reason for follow-up is pneumonia Patient is a 64-year-old female with a past medical history significant for diabetes mellitus hypertension hyperlipidemia COPD recently prolonged hospital stay for pneumonia patient was brought into the [facility] ER for evaluation of difficulty breathing, the patient had worsening respiratory status requiring the patient to admission to the ICU. On today's evaluation that is 03/23/2024,the patient denies any fever or any chills, patient is breathing comfortably on room air, the patient denies chest pain shortness of breath and cough and decreased intensity mostly dry in nature, patient denies abdominal pain, no nausea vomiting or diarrhea. No new lab has been repeated today Objective - Vital Signs Vital signs: Vital Signs Temp 97.6 F 03/23/24 12:29 Pulse 84 03/23/24 12:55 Resp 16 03/23/24 12:29 BP 155/80 03/23/24 12:29 Pulse Ox 97 03/23/24 09:34 FiO2 35 03/17/24 15:22 Intake & Output 03/22/24 03/23/24 03/23/24 18:59 06:59 18:59 Output Total 7977 159 8509 Balance -1100 -480 -1300 Weight 59.5 kg Output: Urine 6117 060 1778 Other: Voiding Method Indwelling Catheter Indwelling Catheter # Bowel Movements 1 1 ABP, PAP, CO, CI - Last Documented Arterial Blood Pressure 172/78 - Exam GENERAL DESCRIPTION: Middle-aged female lying in bed in no distress RESPIRATORY SYSTEM: Unlabored breathing , decreased breath sounds at bases HEART: S1 S2 regular rate and rhythm , ABDOMEN: Soft , no tenderness EXTREMITIES: Bilateral legs are currently wrapped in Flaco wrap - Labs CBC & Chem 7: 03/22/24 03:46 03/22/24 03:46 Labs: Abnormal Lab Results - Last 24 Hours (Table) 03/22/24 03/22/24 03/23/24 Range/Units 16:48 20:34 06:36 POC Glucose (mg/dL) 302 H 298 H 185 H (70-110) mg/dL 03/23/24 Range/Units 11:43 POC Glucose (mg/dL) 333 H (70-110) mg/dL Microbiology - Last 24 Hours (Table) 03/14/24 11:00 Fungal Culture - Preliminary Bronchial Washings - Random Yeast species Assessment and Plan (1) Pneumonia Current Visit: Yes Status: Acute Code(s): J18.9 - PNEUMONIA, UNSPECIFIED ORGANISM SNOMED Code(s): 851425344 (2) Sepsis Current Visit: Yes Status: Acute Code(s): A41.9 - SEPSIS, UNSPECIFIED ORGANISM SNOMED Code(s): 21862236 (3) Type 2 diabetes mellitus with other skin ulcer Current Visit: Yes Status: Acute Code(s): E11.622 - TYPE 2 DIABETES MELLITUS WITH OTHER SKIN ULCER; L98.499 - NON-PRESSURE CHRONIC ULCER OF SKIN OF SITES W UNSP SEVERITY SNOMED Code(s): 872934436 (4) Stage III pressure ulcer of sacral region Current Visit: No Status: Acute Code(s): L89.153 - PRESSURE ULCER OF SACRAL REGION, STAGE 3 SNOMED Code(s): 68844151521302 Plan: 1patient presented to hospital with sepsis in this patient who did have a low- grade fever tachycardia elevated white count source is multifactorial in this patient who did have a component of pneumonia as well as PE keeping in mind the patient has been out of the hospital we need to cover for the resistant gram-neg ative 2-patient did have a superficial ulcer involving lower extremities likely from ruptured blister with no evidence of any cellulitis 3-stage III pressure ulcer to the sacral area with slough tissue but no evidence of any cellulitis continue with local wound care 4-patient sputum and bronchoscopy culture growing Haemophilus influenzae 5-patient to continue with the Augmentin leukocytosis more likely steroid related we will repeat a CBC with a.m. lab and monitor clinical course closely Dictation was produced using [email or web address] dictation software. please excuse any grammatical, word or spelling errors. Time with Patient: Less than 30
[2024-03-23 16:31] LABS: Glucose,Whole Blood 283 mg/dL (70-110)
[2024-03-23] MEDS: SYMBICORT 160-4.5 MCG INHALER INHALATION SCH (20:11)
[2024-03-23 20:33] LABS: Glucose,Whole Blood 238 mg/dL (70-110)
--- NOTE | 2024-03-24 02:01 | PN ---
PROGRESS NOTE SUBJECTIVE: This 64-year-old white female admitted with acute on chronic respiratory failure. She was not started on oxygen at home. We are going to restart that tonight. Continue with PT OT. She is on breathing treatments. She is going to go to rehab center. She is waiting for a clearance from the insurance company. She is on regular medical floor. She is feeling better. She had yeast in the fungal bronchial washings. She had Haemophilus influenzae on a bronchial washing. She has been treated with antibiotics and antifungals. Sugars are 200s to 300s. OBJECTIVE: CARDIOVASCULAR: S1, S2. LUNGS: Transmitted upper sounds. GI: Soft. INTEGUMENT: Skin dry. 2+ edema, thin, cachectic in general. NEUROLOGIC: Alert and oriented x3, giving appropriate answers. PLAN: Generalized debility, insulin-dependent diabetes mellitus, COPD. Repeat labs in the morning. She has pneumonia, sepsis, diabetes mellitus, stage III pressure ulcer of sacrum. Continue current treatment. Antibiotics per Infectious Disease. Wound care to the bottom. PT OT, increase appetite, had a component of pneumonia as well as a PE and resistant gram-negative prior, ruptured blister of the lower extremities, Haemophilus influenzae on just a bronchoscopy, on Augmentin. Prognosis guarded, PT OT. MMODL / IJN: [id number] /
[2024-03-24 05:37] LABS: Glucose,Whole Blood 141 mg/dL (70-110)
[2024-03-24 10:36] LABS: Basophils # (A) 0.04 X 10*3/uL (0.00-0.10); Basophils % (A) 0.2 %; Eosinophils # (A) 0.12 X 10*3/uL (0.04-0.35); Eosinophils % (A) 0.6 %; HCT 32.5 % (37.2-46.3); HGB 10.3 g/dL (12.0-15.0); Lymphocytes # (A) 1.27 X 10*3/uL (0.90-5.00); MCH 31.3 pg (27.0-32.0); MCHC 31.7 g/dL (32.0-37.0); MCV 98.8 FL (80.0-97.0); Monocytes % (A) 2.4 %; NRBC Per 100 WBC 0 X 10*3/uL (0.00-0.01); Neutrophils % (A) 89.9 %; Platelet Count 369 X 10*3/uL (140-440); RBC 3.29 X 10*6/uL (4.10-5.20); RDW 15.6 % (11.5-14.5); WBC 21.22 X 10*3/uL (4.50-10.00)
[2024-03-24 12:18] LABS: Glucose,Whole Blood 266 mg/dL (70-110)
[2024-03-24 12:25] VITALS: BP 157/88; RESP 18; TEMP 98.4
[2024-03-24 13:24] VITALS: BMI 20.7
--- NOTE | 2024-03-24 14:43 | DS ---
DISCHARGE SUMMARY DISCHARGE DIAGNOSES: 1. Acute respiratory failure. 2. Chronic venous hypertension with ulceration. 3. COPD. 4. Pulmonary hypertension. 5. Aspiration pneumonia. 6. Pulmonary embolism. 7. History of nicotine addiction. 8. Insulin-dependent diabetes mellitus. HOME MEDICINES: 1. Norvasc 5 mg daily. 2. NovoLog a.c. h.s. 3. Xanax 0.25 q.i.d. p.r.n. 4. Eliquis 5 mg b.i.d. 5. Lasix 20 mg daily. 6. Lexapro 10 mg daily. 7. Melatonin 3 mg at night for sleep. 8. DuoNeb q.i.d. p.r.n. . 9. Pulmicort nebulizer 1 mg b.i.d. 10.Voriconazole 200 mg q.12 hours long-term. 11.Symbicort inhaler 160/4.5 two puffs b.i.d. 12.Fast-acting insulin lispro 5 units subcu t.i.d. with meals. 13.Singulair 10 mg daily. 14.Lantus SoloStar Pen 15 mg q.h.s. 15.Lactobacillus 1 tablet b.i.d. 16.Perforomist nebulizer 20 mcg b.i.d. 17.Protonix 40 mg a.c. b.i.d. 18.Acetaminophen 650 q.4 hours p.r.n. for pain. 19.Nicotine patch 14 mg daily. CONDITION: Stable. PROGNOSIS: Guarded. ACTIVITY: Ambulate as tolerated with physical therapy. She is to be on Augmentin 875 b.i.d. antibiotics for probably 15 days for aspiration pneumonia and chronic wound infection, chronic wound care per Dr. Pathak's recommendations on the sacrum. Prognosis guarded. She came in with acute hypoxemic respiratory failure. She had aspiration pneumonia. She had H. flu grow from bronchoscopy as well as antifungal. She has been being on Augmentin for another 15 days on discharge. Chronic wound care on the sacral ulcer per Dr. Pathak's recommendations. Her breathing slowly improved in which she was maintained on ICU for a while. She came off the ventilator for few days and she is greatly improved. She has to wear oxygen at night 2 L oxygen at night every night and she has 2 breathing treatments every day. Continue with RMAT for 15 days, do not stop the oxygen at night as well as the breathing treatments. She is to stay on these long-term PT OT at home after discharge. Follow up as an outpatient after discharge. Prognosis guarded. LULU / YUDY: [id number] /
--- NOTE | 2024-03-24 14:45 | P.PN ---
Subjective Progress Note Date: 03/24/24 Patient is a 64-year-old white female with past medical history significant for COPD, diabetes mellitus, hyperlipidemia, hypertension, current everyday smoker. Of note, she was recently hospitalized January 29 through February, for suspected aspiration pneumonia and exacerbation of the patient's known COPD. She was reportedly discharged to a local ECF on courses of Augmentin and Diflucan. She did have systemic candidemia this admission. It is my impression, the patient's functional status has been gradually declining. She has been fairly sedentary. She has a decubitus pressure ulcer as well as multiple lower extremity wounds. She also has a issue with urinary retention and a chronic indwelling urinary catheter. Patient returned to the emergency department yesterday afternoon reportedly with severe difficulty in breathing. She was initially trialed on BiPAP and then intubated in the emergency department. She is unable to provide any information at this time, and no family members are present. Chest CTA performed during her previous hospitalization was negative for any acute pulmonary emboli. There were small bilateral pleural effusions with adjacent atelectasis were demonstrated. A chest CTA was repeated in the emergency department this admission, demonstrating a nonocclusive right upper lobe pulmonary embolus. No evidence of right-sided heart strain. There is small left pleural effusion, with increasing airspace opacity in the left lower lobe and right upper lobe suspicious for pneumonia. No reported witnessed aspiration events. Postintubation chest x-ray shows the endotracheal tube 3.1 cm from the kendy. Nasogastric tube courses within the gastric fundus. Most recent ABGs have a PaO2 of 358, pCO2 of 37, pH of 7.49. This was done on ventilator settings including assist-control, respiratory rate 16, tidal volume 300, FiO2 100%, and PEEP of 5. FiO2 was previously dropped to 50%. Peak pressures are 16. She is breathing slightly above set rate. Sedated on propofol which is infusing at 30 mcg/kg/min. Normal saline also infusing at 130 MLS per hour. Blood pressure has remained hypotensive despite 2.5 L normal saline bolus. She has been started on low-dose norepinephrine which is infusing at 0.03 mcg/kg/min. Previously tachycardic, and this is improved. She has also since been started on the high intensity heparin protocol. Most recent APTT was [place] btherapeutic, and drip was a appropriately adjusted. Baseline CBC has a WBC count of 29.1, hemoglobin 14, hematocrit 42.9, platelets 591. Most recent CMP includes a sodium 136, potassium 2.7, chloride 103, serum bicarb 22, BUN 15, creatinine 0.27, glucose 317. Lactic acid was 4.9 and is down to 3.4. AST 29, ALT 31, ALP 327. Total bili 0.6. Troponin 0.021. NT proBNP 846. EKG done on arrival shows sinus tachycardia with a rate of 121 bpm and T wave inversion in leads II, III and aVF. Negative for influenza, RSV, COVID. Patient empirically covered on a combination of antibiotics including azithromycin and Zosyn. Afebrile. Prognosis is guarded. Patient was evaluated on 03/15/2024, patient is in the ICU, intubated and mechanically ventilated. Patient is on assist-control rate of 16 tidal volume 300 FiO2 45% and PEEP of 5 ABG showed a pO2 of 134 pCO2 42 pH of 7.47 hence FiO2 was cut down to 35%. Patient remains hemodynamically unstable requiring norepinephrine at 0.02 mcg/kg/min. IV fluid is at 130 cc/h however this will be cut down to KVO, and the patient will receive Lasix as she has received significant amount of fluids over the last 24 hours. Urine output is marginal 10 to 20 cc an hour. Lasix will be given. Remains on propofol at 30 mcg/kg/min she is also on heparin drip, and receiving vital AF at 10 cc/h. Patient is at least 4.6 L fluid balance positive. And she remains on Zosyn. Cultures from the BAL are pending but it seems to be gram-negative bacilli mostly. Patient is on Zosyn. Blood cultures are pending, negative so far. Patient is receiving trickle enteral feeding mostly because of increased residual. WBC count today is 21.8 hemoglobin 10.1. Platelets are 427 basic metabolic profile is normal renal profile is normal Seen today on 03/16/2024, remains in the ICU intubated and mechanically ventilated. Patient is on assist-control rate 16 tidal volume 300 FiO2 35% PEEP of 5 ABG showed a pO2 of 120 pCO2 45 pH of 7.45. Patient remains on IV fluid at 100 cc/h urine output is marginal at 30 to 40 cc/h. She is receiving vital AF at 30 cc/h. Patient had haemophilus influenza cultured from her BAL/sputum and she remains on Zosyn. Clinically she is making a dramatic improvement and her chest x-ray is also improving hence I am not changing her Zosyn for now. Patient has been off sedation since yesterday, she is not following any instru ctions, she opens her eyes, but seems to be generally weak, and still not quite ready to be extubated. Hence the plan is to keep her mechanically ventilated today, will reassess in the afternoon and hopefully her mental status may improve, then we could potentially check e weaning parameters and weaning trials. Hemoglobin is 10.4. Basic metabolic profile is normal and renal profile is normal WBC count today is 10.4. Reevaluate today, patient remains in the ICU intubated and mechanically ventilated. Patient remains off sedation for the last 24 hours, earlier today she was on assist-control mode of mechanical ventilation, however during my evaluation the patient was noted to be on CPAP. Patient has very low respiratory rate, about 8 breaths/min. However she is maintaining adequate tidal volume with each breath. Patient remains on antibiotics/Zosyn for her H. influenzae pneumonia, and ABG this morning showed a pO2 of 131 pCO2 44 pH of 7.44. Chest x-ray continues to show improvement in her bilateral multifocal pneumonia. Nutrition mederos patient remains on vital AF at 50 cc/h. Remains on heparin for acute pulmonary embolism involving the right upper lobe. WBC count today is 20.4 hemoglobin is 10.5. PTT is therapeutic at 49.6, basic metabolic profile is normal and renal profile is normal Patient was evaluated today on 03/18/2024, remains in the ICU, patient was extu bated yesterday, she had successful extubation. Patient is not requiring any pressors, she is hemodynamically stable, patient is quite emotional and tearful when she realized that she is doing better than expected. Remains on heparin which I will transition to Eliquis today. She remains on Zosyn for her H. influenzae pneumonia my plan is to discontinue her art line, and cut down her Solu-Medrol to every 12 hours. I would rather continue to monitor in the ICU for the next 24 hours. Patient had to go on BiPAP postextubation yesterday temporarily 09/01/35%. WBC count today is 19.1 hemoglobin is 11 PTT is therapeutic platelets are normal basic metabolic profile is normal and renal profile is normal no chest x-ray was done today, however her chest x-ray yesterday showed improvement in her bilateral infiltrates/pneumonia Patient was reevaluated today on 03/19/2024, remains in the ICU, patient was extubated 2 days ago, tolerated the extubation well, she is comfortable, not in any form of distress. Patient is actually on room air. Patient had intermittent nausea, she remains on Zosyn for her multifocal pneumonia secondary to H. influenzae and she is also on Eliquis for her pulmonary embolism. WBC count is 16 hemoglobin 10.8 basic metabolic profile is normal The patient is seen today March 20, 2024 in follow-up in the intensive care unit. She remains a regular medical floor overflow patient. She is currently resting in bed. Awake and alert in no acute distress. Maintaining O2 saturations in the 90s on 2 L/min per nasal cannula. She has normal saline at 50 MLS per hour. Glucose 297. She is continued on DuoNeb inhalations, Symbicort. Antibiotics in the form of Zosyn. Anticoagulated with Eliquis. The patient is seen today March 21, 2024 in follow-up in the intensive care unit. She is awake and alert in no acute distress. Sitting up in bed. Maintaining O2 saturation in the 90s on room air. Normal saline at 50 MLS per hour. Continued on bronchodilators, prednisone, Augmentin. Anticoagulated with Eliquis. White count 14.2. Hemoglobin 11.1. Platelets 357. Sodium 134. Potassium 3.4. Bicarb 27. BUN 10. Creatinine 0.18. Glucose 89. The patient is seen today March 24, 2024 in follow-up on the regular medical floor. She is currently resting comfortably in bed. Awake and alert in no acute distress. She is maintaining good O2 saturations in the 90s on room air. Receiving normal saline at 50 MLS per hour. Continued on Augmentin for haemophilus influenza. White count 21.2. Hemoglobin 10.3. Platelets 369. Procalcitonin 0.08. Is on DuoNeb inhalations, Symbicort, prednisone taper. Remains on oral diuretics. Anticoagulated with Eliquis. Objective - Vital Signs Vital signs: Vital Signs Temp 98.4 F 06/28/24 12:23 Pulse 103 H 03/24/24 12:23 Resp 18 03/24/24 12:23 BP 157/88 03/24/24 12:23 Pulse Ox 98 03/24/24 12:23 FiO2 35 03/17/24 15:22 Intake & Output 03/23/24 03/24/24 03/24/24 18:59 06:59 18:59 Output Total 1680 540 200 Balance -1680 -540 -200 Weight 62 kg 62 kg Output: Urine 1680 540 200 Other: Voiding Method Indwelling Catheter Indwelling Catheter ABP, PAP, CO, CI - Last Documented Arterial Blood Pressure 172/78 - Exam GENERAL EXAM: Reveals a 64-year-old female, resting comfortably in bed, on room air, no acute distress HEAD: Normocephalic and atraumatic EYES: Normal reaction of pupils, equal size. NOSE: Clear with pink turbinates. THROAT: No erythema or exudates. NECK: No masses, no JVD. CHEST: No chest wall deformity. LUNGS: Diminished breath sounds at the bases no crackles rhonchi or wheezes CVS: Distant S1-S2, no S3 gallop, no murmur. ABDOMEN: Soft nontender no megaly no rebound no guarding. Bowel sounds. SKIN: Decubitus unstageable pressure injury. Bilateral lower extremity wounds. Multiple superficial ulcerations noted in both lower extremities. CENTRAL NERVOUS SYSTEM: Alert and oriented x 3, no gross focal neurologic deficit EXTREMITIES: Bipedal edema with multiple superficial skin lesions/ulcerations noted bilaterally - Labs CBC & Chem 7: 03/24/24 05:52 03/22/24 03:46 Labs: Abnormal Lab Results - Last 24 Hours (Table) 03/23/24 03/23/24 03/24/24 Range/Units 16:30 20:31 05:35 WBC (4.50-10.00) X 10*3/uL RBC (4.10-5.20) X 10*6/uL Hgb (12.0-15.0) g/dL Hct (37.2-46.3) % MCV (80.0-97.0) FL MCHC (32.0-37.0) g/dL RDW (11.5-14.5) % Immature Gran # (0.00-0.04) X 10*3/uL Neutrophils # (1.80-7.70) X 10*3/uL POC Glucose (mg/dL) 283 H 238 H 141 H (70-110) mg/dL 03/24/24 03/24/24 Range/Units 05:52 12:15 WBC 21.22 H (4.50-10.00) X 10*3/uL RBC 3.29 L (4.10-5.20) X 10*6/uL Hgb 10.3 L (12.0-15.0) g/dL Hct 32.5 L (37.2-46.3) % MCV 98.8 H (80.0-97.0) FL MCHC 31.7 L (32.0-37.0) g/dL RDW 15.6 H (11.5-14.5) % Immature Gran # 0.19 H (0.00-0.04) X 10*3/uL Neutrophils # 19.10 H (1.80-7.70) X 10*3/uL POC Glucose (mg/dL) 266 H (70-110) mg/dL Microbiology - Last 24 Hours (Table) 03/14/24 11:00 Fungal Culture - Preliminary Bronchial Washings - Random Sarah glabrata 03/14/24 11:00 Acid Fast Bacilli Smear - Preliminary Bronchial Washings - Random Acid Fast Bacilli Culture - Preliminary Assessment and Plan Assessment: Acute hypoxic respiratory failure requiring intubation and mechanical ventilation, secondary to acute multifocal pneumonia and COPD exacerbation and a right pulmonary embolism patient was extubated on 03/17 and tolerated the extubation well. Acute multifocal pneumonia, secondary to Haemophilus influenzae, diagnosed via bronchoscopy and BAL remains on Augmentin. Procalcitonin today 0.08 Acute exacerbation of COPD Acute right upper lobe pulmonary embolism as noted on CT angiogram of the chest on admission, presently on Eliquis Sepsis and septic shock secondary to pneumonia, off pressors Resolved Profound hypotension on admission requiring pressors History of systemic candidemia, completed a course of Diflucan. Chronic urinary retention with indwelling Horn catheter History of constipation status post decompressive sigmoidoscopy Type 2 diabetes Benign essential hypertension Dyslipidemia Severe protein calorie malnutrition Chronic decubitus pressure ulcer and multiple skin ulcerations involving both lower extremities. Acute metabolic encephalopathy, recovered Plan: The patient was seen and evaluated Remains stable and on room air Labs and medications reviewed Continue the current treatment plan Plan is for Diann at discharge I have personally seen and examined the patient, performed the documentation and the assessment and plan as written. Number of minutes spent on the visit: 10.
[2024-03-24 15:47] VITALS: PULSE 80
--- NOTE | 2024-03-24 16:10 | P.PN ---
Subjective Progress Note Date: 03/24/24 Principal diagnosis: Reason for follow-up is pneumonia Patient is a 64-year-old female with a past medical history significant for diabetes mellitus hypertension hyperlipidemia COPD recently prolonged hospital stay for pneumonia patient was brought into the [facility] ER for evaluation of difficulty breathing, the patient had worsening respiratory status requiring the patient to admission to the ICU. On today's evaluation that is 03/24/2024,the patient remains to be afebrile, patient is on room air not requiring supplemental oxygen and denies any shortnes s of breath no chest pain or cough.Patient denies having any nausea or vomiting, no abdominal pain and no diarrhea has been reported, mention feeling better looking forward to going to rehab Patient white count is 21.22 procalcitonin 0.08 Objective - Vital Signs Vital signs: Vital Signs Temp 98.4 F 03/24/24 12:23 Pulse 103 H 03/24/24 12:23 Resp 18 03/24/24 12:23 BP 157/88 03/24/24 12:23 Pulse Ox 98 03/24/24 12:23 FiO2 35 03/17/24 15:22 Intake & Output 03/23/24 03/24/24 03/24/24 18:59 06:59 18:59 Output Total 1680 540 200 Balance -1680 -540 -200 Weight 62 kg 62 kg Output: Urine 1680 540 200 Other: Voiding Method Indwelling Catheter Indwelling Catheter ABP, PAP, CO, CI - Last Documented Arterial Blood Pressure 172/78 - Exam GENERAL DESCRIPTION: Middle-aged female lying in bed in no distress RESPIRATORY SYSTEM: Unlabored breathing , decreased breath sounds at bases HEART: S1 S2 regular rate and rhythm , ABDOMEN: Soft , no tenderness EXTREMITIES: Bilateral legs are currently wrapped in Flaco wrap - Labs CBC & Chem 7: 03/24/24 05:52 03/22/24 03:46 Labs: Abnormal Lab Results - Last 24 Hours (Table) 03/23/24 03/23/24 03/24/24 Range/Units 16:30 20:31 05:35 WBC (4.50-10.00) X 10*3/uL RBC (4.10-5.20) X 10*6/uL Hgb (12.0-15.0) g/dL Hct (37.2-46.3) % MCV (80.0-97.0) FL MCHC (32.0-37.0) g/dL RDW (11.5-14.5) % Immature Gran # (0.00-0.04) X 10*3/uL Neutrophils # (1.80-7.70) X 10*3/uL POC Glucose (mg/dL) 283 H 238 H 141 H (70-110) mg/dL 03/24/24 03/24/24 Range/Units 05:52 12:15 WBC 21.22 H (4.50-10.00) X 10*3/uL RBC 3.29 L (4.10-5.20) X 10*6/uL Hgb 10.3 L (12.0-15.0) g/dL Hct 32.5 L (37.2-46.3) % MCV 98.8 H (80.0-97.0) FL MCHC 31.7 L (32.0-37.0) g/dL RDW 15.6 H (11.5-14.5) % Immature Gran # 0.19 H (0.00-0.04) X 10*3/uL Neutrophils # 19.10 H (1.80-7.70) X 10*3/uL POC Glucose (mg/dL) 266 H (70-110) mg/dL Microbiology - Last 24 Hours (Table) 03/14/24 11:00 Fungal Culture - Preliminary Bronchial Washings - Random Sarah glabrata 03/14/24 11:00 Acid Fast Bacilli Smear - Preliminary Bronchial Washings - Random Acid Fast Bacilli Culture - Preliminary Assessment and Plan (1) Pneumonia Current Visit: Yes Status: Acute Code(s): J18.9 - PNEUMONIA, UNSPECIFIED ORGANISM SNOMED Code(s): 612267214 (2) Sepsis Current Visit: Yes Status: Acute Code(s): A41.9 - SEPSIS, UNSPECIFIED ORGANISM SNOMED Code(s): 68011349 (3) Type 2 diabetes mellitus with other skin ulcer Current Visit: Yes Status: Acute Code(s): E11.622 - TYPE 2 DIABETES MELLITUS WITH OTHER SKIN ULCER; L98.499 - NON-PRESSURE CHRONIC ULCER OF SKIN OF SITES W UNSP SEVERITY SNOMED Code(s): 803023356 (4) Stage III pressure ulcer of sacral region Current Visit: No Status: Acute Code(s): L89.153 - PRESSURE ULCER OF SACRAL REGION, STAGE 3 SNOMED Code(s): 20772555730552 Plan: 1patient presented to hospital with sepsis in this patient who did have a low- grade fever tachycardia elevated white count source is multifactorial in this patient who did have a component of pneumonia as well as PE keeping in mind the patient has been out of the hospital we need to cover for the resistant gram- negative 2-patient did have a superficial ulcer involving lower extremities likely from ruptured blister with no evidence of any cellulitis 3-stage III pressure ulcer to the sacral area with slough tissue but no evidence of any cellulitis continue with local wound care 4-patient sputum and bronchoscopy culture growing Haemophilus influenzae 5-patient to continue with the Augmentin, patient had worsening of the white count questionably oropharyngeal candidiasis, we will add nystatin swish and swallow see response Dictation was produced using [employer] dictation software. please excuse any grammatical, word or spelling errors. Time with Patient: Less than 30
[2024-03-24 16:56] LABS: Glucose,Whole Blood 391 mg/dL (70-110)
[2024-03-24] MEDS ORDERED: NYSTATIN 100,000 UNIT/ML SUSP 500,000 UNIT/5 ML CUP PO SCH (18:00)
[2024-03-25 00:30] LABS: ALT 17 U/L (8-44); AST 16 U/L (13-35); Albumin 2.6 g/dL (3.8-4.9); Albumin/Globulin Ratio 1.62 Ratio (1.60-3.17); Alkaline Phosphatase 197 U/L (41-126); Blood Urea Nitrogen 15.8 mg/dL (9.0-27.0); Calcium 8.4 mg/dL (8.7-10.3); Carbon Dioxide 24.9 mmol/L (21.6-31.8); Chloride 104 mmol/L (96-109); Globulin 1.6 g/dL (1.6-3.3); Glucose 117 mg/dL (70-110); Sodium 140 mmol/L (135-145); Total Bilirubin <0.2 mg/dL (0.3-1.2); Total Protein 4.2 g/dL (6.2-8.2)
--- NOTE | 2024-03-28 10:54 | CDI ---
Documentation Clarification Form Date: 03/28/24 From: Makayla Lee Admit Date: 03/13/2024 08:23:00 PM Patient Name: Sha Lucio Visit Number: [id number] Discharge Date: 03/24/2024 05:15:00 PM ATTENTION: The Clinical Documentation Specialists (CDI) and [facility] Coding Staff appreciate your assistance in clarifying documentation. Please respond to the clarification below the line at the bottom and electronically sign. The CDI & [facility] Coding staff will review the response and follow-up if needed. Please note: Queries are made part of the Legal Health Record. If you have any questions, please contact the author of this message via ITS. Dr. Cory Lloyd, Sepsis is documented in your H&P, but is not noted in your discharge summary. Clarification is requested. History/Risk Factors: Chronic venous hypertension w ulceration, chronic hypoxic respiratory failure, COPD pulmonary HTN, smoker, T1DM Clinical Indicators: Patient found to have Haemophilus influenza & aspiration pneumonia. Pulmonary embolism, as well. WBC 29.1, Neutrophils 26.9, Lactic acid 4.9, Glucose 292 T 97.1, P 121, R 42, BP 121/86 & 95/69, O2 Sat 97 (RA) Blood gas: ABG: pH 7.49, pO2 358, HCO3 28, Total CO2 29 Treatment: IV: Azithromycin, Zoysn, IV fluids, vasopressor, mechanical ventilation Please clarify if the sepsis and cause is: [ ] Sepsis, please specify the cause such as: Sarah, Haemophilus influenza etc [ ] Sepsis ruled out [ ] Other condition, please specify [ ] Unable to determine MTDD
--- NOTE | 2024-04-06 14:31 | PN ---
PROGRESS NOTE Please add to the discharge note sepsis, . MMODL / IJN: [id number] /
== END 2024-03-24 17:15 | DRG 720 ==
LOC: EC 15:46 → 2SICU 20:23 → 4SSUR 03-21 20:17
PROVIDERS: ADMIT Family Medicine; ATTEND Family Medicine
PROC: 5A1945Z Respiratory Ventilation, 24-96 Consecutive Hours (ICD-10-PCS; principal; 2024-03-13)
PROC: 0BH17EZ Insertion of Endotracheal Airway into Trachea, Via Natural or Artificial Opening (ICD-10-PCS; principal; 2024-03-13)
PROC: 0D9670Z Drainage of Stomach with Drainage Device, Via Natural or Artificial Opening (ICD-10-PCS; principal; 2024-03-13)
PROC: 0B9C8ZX Drainage of Right Upper Lung Lobe, Via Natural or Artificial Opening Endoscopic, Diagnostic (ICD-10-PCS; 2024-03-14)
PROC: 0B9J8ZX Drainage of Left Lower Lung Lobe, Via Natural or Artificial Opening Endoscopic, Diagnostic (ICD-10-PCS; 2024-03-14)
PROC: 3E033XZ Introduction of Vasopressor into Peripheral Vein, Percutaneous Approach (ICD-10-PCS; 2024-03-14)
PROC: 06HY33Z Insertion of Infusion Device into Lower Vein, Percutaneous Approach (ICD-10-PCS; 2024-03-14)
PROC: 4A133B1 Monitoring of Arterial Pressure, Peripheral, Percutaneous Approach (ICD-10-PCS; 2024-03-14)
PROC: 4A133J1 Monitoring of Arterial Pulse, Peripheral, Percutaneous Approach (ICD-10-PCS; 2024-03-14)
PROC: 03HY32Z Insertion of Monitoring Device into Upper Artery, Percutaneous Approach (ICD-10-PCS; 2024-03-14)
PROC: 5A09357 Assistance with Respiratory Ventilation, Less than 24 Consecutive Hours, Continuous Positive Airway Pressure (ICD-10-PCS; 2024-03-14)
PROC: 3E0G76Z Introduction of Nutritional Substance into Upper GI, Via Natural or Artificial Opening (ICD-10-PCS; 2024-03-14)
PROC: 05HF33Z Insertion of Infusion Device into Left Cephalic Vein, Percutaneous Approach (ICD-10-PCS; 2024-03-20)
DX: A41.9 Sepsis, unspecified organism (principal); I26.99 Other pulmonary embolism without acute cor pulmonale; J96.21 Acute and chronic respiratory failure with hypoxia; J69.0 Pneumonitis due to inhalation of food and vomit; R65.21 Severe sepsis with septic shock; G93.41 Metabolic encephalopathy; I50.33 Acute on chronic diastolic (congestive) heart failure; J14 Pneumonia due to Hemophilus influenzae; L89.153 Pressure ulcer of sacral region, stage 3; E43 Unspecified severe protein-calorie malnutrition; J44.0 Chronic obstructive pulmonary disease with (acute) lower respiratory infection; J44.1 Chronic obstructive pulmonary disease with (acute) exacerbation; E87.20 Acidosis, unspecified; I27.20 Pulmonary hypertension, unspecified; E10.622 Type 1 diabetes mellitus with other skin ulcer; I87.313 Chronic venous hypertension (idiopathic) with ulcer of bilateral lower extremity; L97.919 Non-pressure chronic ulcer of unspecified part of right lower leg with unspecified severity; L97.929 Non-pressure chronic ulcer of unspecified part of left lower leg with unspecified severity; E87.1 Hypo-osmolality and hyponatremia; I11.0 Hypertensive heart disease with heart failure; F32.A Depression, unspecified; L98.499 Non-pressure chronic ulcer of skin of other sites with unspecified severity; E86.0 Dehydration; Z68.1 Body mass index [BMI] 19.9 or less, adult; Z79.4 Long term (current) use of insulin; Z28.310 Unvaccinated for COVID-19; Y95 Nosocomial condition; E78.5 Hyperlipidemia, unspecified; E87.6 Hypokalemia; J98.11 Atelectasis; M54.50 Low back pain, unspecified; R33.9 Retention of urine, unspecified; F17.210 Nicotine dependence, cigarettes, uncomplicated; Z79.51 Long term (current) use of inhaled steroids; Z79.84 Long term (current) use of oral hypoglycemic drugs; Z79.899 Other long term (current) drug therapy; Z71.3 Dietary counseling and surveillance
CPT/HCPCS: 31500; 36410; 36415; 36600; 71045; 71275; 76604; 76937; 80048; 80053; 81001; 82805; 83605; 83735; 83880; 84100; 84132; 84145; 84484; 85025; 85610; 85730; 86140; 87040; 87070; 87102; 87116; 87205; 87206; 87449; 87496; 87498; 87502; 87529; 87634; 87635; 87636; 87798; 88108; 88305; 89050; 93005; 93306; 93970; 94002; 94003; 94640; 94660; 94760; 96365; 96366; 96367; 96368; 96375; 96376; 99291

== ENCOUNTER 2024-03-29 06:55 | Inpatient (IN) | payer OTHER ==
[2024-03-29] MEDS: methylPREDNISolone SOD SUCCI 125 MG/2 ML VIAL IV STA (07:15)
[2024-03-29] MEDS: IPRATROPIUM-ALBUTEROL 3 ML NEB INHALATION STA (07:27)
[2024-03-29 07:31] LABS: INR 0.9 (<1.2); Partial Thromboplastin Time 27.1 sec (22.0-30.0); Prothrombin Time 10.4 sec (10.0-12.5)
[2024-03-29 07:33] LABS: Basophils # (A) 0.1 k/uL (0-0.2); Basophils % (A) 0 %; Eosinophils # (A) 0.1 k/uL (0-0.7); Eosinophils % (A) 0 %; HCT 35.5 % (34.0-46.0); HGB 11.5 gm/dL (11.4-16.0); Hypochromasia Slight; Lymphocytes # (A) 0.6 k/uL (1.0-4.8); Lymphocytes % (A) 3 %; MCH 32.6 pg (25.0-35.0); MCHC 32.4 g/dL (31.0-37.0); MCV 100.6 fL (80.0-100.0); Macrocytosis Slight; Mean Platelet Volume 8.2; Monocytes # (A) 0.4 k/uL (0-1.0); Monocytes % (A) 2 %; Neutrophils # (A) 21.1 k/uL (1.3-7.7); Neutrophils % (A) 95 %; Platelet Count 407 k/uL (150-450); RBC 3.52 m/uL (3.80-5.40); WBC 22.3 k/uL (3.8-10.6)
--- NOTE | 2024-03-29 07:33 | ED ---
SOB HPI - General Chief Complaint: Shortness of Breath Stated Complaint: ABI Time Seen by Provider: 03/29/24 06:59 Source: patient, EMS, RN notes reviewed, old records reviewed Mode of arrival: EMS Limitations: physical limitation - History of Present Illness Initial Comments: This is a 64-year-old female presents emergency department via EMS from [facility] with chief complaint of shortness of breath, respiratory distress. Patient has a history of COPD diabetes hyperlipidemia hypertension heavy smoker. Patient had recent hospitalization for respiratory failure was intubated, had bronchoscopy and was discharged on antibiotics. Patient states that she started increasing shortness of breath overnight and this morning. Patient states she feels very "gurgly". She has been having ongoing swelling of her upper and lower extremities. Patient is nonambulatory does have known coccyx wound. Patient states that the breathing treatment did help some. Patient denies any abdominal pain patient has chronic Horn. Patient does admit that she has been on and off oxygen supplementation. Patient reports no fever. Patient denies history of CHF. - Related Data Home Medications Medication Instructions Recorded Confirmed Budesonide/Formoterol Fumarate 2 puff INHALATION RT-BID 01/29/24 03/29/24 [Symbicort 160-4.5 Mcg Inhaler] Escitalopram [Lexapro] 10 mg PO DAILY 01/29/24 03/29/24 Lactobacillus Rhamnosus GG 1 cap PO BID 01/29/24 03/29/24 [Culturelle] Melatonin 3 mg PO HS PRN 01/29/24 03/29/24 Montelukast [Singulair] 10 mg PO HS 01/29/24 03/29/24 Nicotine 14Mg/24Hr Patch [Habitrol] 1 patch TRANSDERM DAILY 01/29/24 03/29/24 Amoxic-Pot Clav 875-125Mg 1 tab PO Q12HR 03/29/24 03/29/24 [Augmentin 875-125] Apixaban Initiation Dose--VTE See Taper PO BID 03/29/24 03/29/24 [Eliquis Initiation Dosing for VTE Treatment] Collagenase [Santyl Ointment] 1 applic TOPICAL DIRECTED PRN 03/29/24 03/29/24 Collagenase [Santyl Ointment] 1 applic TOPICAL DAILY 03/29/24 03/29/24 HYDROcodone/APAP 5-325MG [[place] 1 tab PO Q6HR PRN 03/29/24 03/29/24 5-325] INSULIN LISPRO (HumaLOG) [humaLOG] 5 units SQ AC-TID 03/29/24 03/29/24 INSULIN LISPRO (HumaLOG) [humaLOG] See Protocol SQ ACHS 03/29/24 03/29/24 Insulin Glargine [Lantus Vial] 15 unit SQ HS 03/29/24 03/29/24 Ipratropium-Albuterol Nebulize 3 ml INHALATION RT-Q6H 03/29/24 03/29/24 [Duoneb 0.5 mg-3 mg/3 ml Soln] Magnesium Hydroxide [Milk of 7,200 mg PO DAILY PRN 03/29/24 03/29/24 Magnesia Concentrate] Na Phos,M-B/Na Phos,Di-Ba [Fleet 133 ml RECTAL DAILY PRN 03/29/24 03/29/24 Adult] bisacodyL [Dulcolax] 10 mg RECTAL DAILY PRN 03/29/24 03/29/24 Previous Rx's Medication Instructions Recorded Budesonide [Pulmicort] 1 mg INHALATION RT-BID ml 02/05/24 Formoterol Fumarate [Perforomist] 20 mcg INHALATION RT-BID ml 02/05/24 Pantoprazole [Protonix] 40 mg PO AC-BID tab 02/05/24 Voriconazole [Vfend] 200 mg PO Q12HR tab 02/05/24 Acetaminophen Tab [Tylenol] 650 mg PO Q4HR PRN tab 02/26/24 Lactulose [Cephulac] 20 gm PO TID 30 Days #90 ml 02/26/24 ALPRAZolam [Xanax] 0.25 mg PO QID tab 03/24/24 Furosemide [Lasix] 20 mg PO DAILY tab 03/24/24 amLODIPine [Norvasc] 5 mg PO DAILY tab 03/24/24 polyethylene glycoL 3350 [Miralax] 17 gm PO DAILY packet 03/24/24 predniSONE [Deltasone] 40 mg PO DAILY tab 03/24/24 Allergies Allergy/AdvReac Type Severity Reaction Status Date / Time No Known Allergies Allergy Verified 03/29/24 08:55 Review of Systems ROS Statement: Those systems with pertinent positive or pertinent negative responses have been documented in the HPI. ROS Other: All systems not noted in ROS Statement are negative. Past Medical History Past Medical History: COPD, Diabetes Mellitus, Hyperlipidemia, Hypertension History of Any Multi-Drug Resistant Organisms: None Reported Past Surgical History: Adenoidectomy, Hysterectomy, Tubal Ligation Additional Past Surgical History / Comment(s): 2 tumors removals Past Psychological History: Depression Smoking Status: Current every day smoker Past Alcohol Use History: None Reported Past Drug Use History: None Reported General Exam Limitations: no limitations General appearance: alert, in distress Head exam: Present: atraumatic, normocephalic, normal inspection Eye exam: Present: normal appearance, PERRL, EOMI. Absent: scleral icterus, conjunctival injection, periorbital swelling ENT exam: Present: normal oropharynx, mucous membranes moist Neck exam: Present: normal inspection. Absent: tenderness, meningismus, lymphadenopathy Respiratory exam: Present: respiratory distress, wheezes, rhonchi, accessory muscle use. Absent: normal lung sounds bilaterally, rales, stridor Cardiovascular Exam: Present: normal rhythm, tachycardia, normal heart sounds. Absent: systolic murmur, diastolic murmur, rubs, gallop, clicks Extremities exam: Present: pedal edema (Lower extremities are wrapped), other (Upper extremity edema noted) Neurological exam: Present: alert, oriented X3 Skin exam: Present: warm, dry, intact, normal color. Absent: rash Course Vital Signs 03/29/24 03/29/24 03/29/24 06:57 07:24 07:25 Temperature 97.5 F L Pulse Rate 104 H Respiratory 22 Rate Blood Pressure 117/80 O2 Sat by Pulse 79 L Oximetry Fraction of 100 100 Inspired Oxygen (FIO2) 03/29/24 03/29/24 03/29/24 07:27 07:29 08:01 Temperature 98.0 F Pulse Rate 103 H 104 H 112 H Respiratory 28 H 26 H Rate Blood Pressure 111/69 123/80 O2 Sat by Pulse 91 L 97 Oximetry Fraction of Inspired Oxygen (FIO2) 03/29/24 03/29/24 03/29/24 08:43 08:52 09:11 Temperature Pulse Rate 106 H Respiratory 90 H Rate Blood Pressure 110/74 O2 Sat by Pulse 91 L Oximetry Fraction of 70 50 Inspired Oxygen (FIO2) Medical Decision Making - Medical Decision Making Was pt. sent in by a medical professional or institution (, PA, EMAIL MARKETING EXECUTIVE, urgent care, hospital, or shelter...) When possible be specific @ -[facility] Did you speak to anyone other than the patient for history (EMS, parent, family, police, friend...)? What history was obtained from this source @ -No Did you review nursing and triage notes (agree or disagree)? Why? @ -I reviewed and agree with nursing and triage notes Were old charts reviewed (outside hosp., previous admission, EMS record, old EKG, old radiological studies, urgent care reports/EKG's, shelter records)? Report findings @ -Reviewed inpatient records of last week including pulmonology evaluation, ID evaluation, bronchoscopy, microbiology sputum cultures, blood cultures. Differential Diagnosis (chest pain, altered mental status, abdominal pain women, abdominal pain men, vaginal bleeding, weakness, fever, dyspnea, syncope, headache, dizziness, GI bleed, back pain, seizure, CVA, palpatations, mental health, musculoskeletal)? @ -Differential Dyspnea: Coronary syndrome, arrhythmia, tamponade, asthma, COPD, pulmonary embolism, pneumonia, pneumothorax, pulmonary effusion, anaphylaxis, diabetic ketoacidosis, flailed chest, pulmonary contusion, diaphragmatic rupture, anemia, neuromuscular, this is not meant to be an all-inclusive list. EKG interpreted by me (3pts min.). @ -As above X-rays interpreted by me (1pt min.). @ -Chest x-ray 1 view shows pleural effusion, pneumonia, possible pulmonary edema CT interpreted by me (1pt min.). @ -None done U/S interpreted by me (1pt. min.). @ -None done What testing was considered but not performed or refused? (CT, X-rays, U/S, labs)? Why? @ -None What meds were considered but not given or refused? Why? @ -None Did you discuss the management of the patient with other professionals (professionals i.e. VENITA Garcia, EMAIL MARKETING EXECUTIVE, lab, RT, psych nurse, social economist, checkman, teacher, chief science officer, case technician)? Give summary @ -Dr. Lloyd for admission for acute respiratory failure consulted to pulmonology Was smoking cessation discussed for >3mins.? @ -No Was critical care preformed (if so, how long)? @ -35 minutes Were there social determinants of health that impacted care today? How? (Homelessness, low income, unemployed, alcoholism, drug addiction, transporta tion, low edu. Level, literacy, decrease access to med. care, penitentiary, rehab)? @ -No Was there de-escalation of care discussed even if they declined (Discuss DNR or withdrawal of care, Hospice)? DNR status @ -No What co-morbidities impacted this encounter? (DM, HTN, Smoking, COPD, CAD, Cancer, CVA, ARF, Chemo, Hep., AIDS, mental health diagnosis, sleep apnea, morbid obesity)? @ -COPD Was patient admitted / discharged? Hospital course, mention meds given and route, prescriptions, significant lab abnormalities, going to OR and other pertinent info. @ -Admitted patient presented acute respiratory failure, hypoxic pulse ox 75 on 6 L patient has had recent admission for hypoxic respiratory failure intubation patient has been on oral antibiotics. Patient did have labs, EKG, chest x-ray was placed on BiPAP, multiple breathing treatments. Patient be admitted to stepdown on BiPAP with consult to pulmonary Undiagnosed new problem with uncertain prognosis? @ -No Drug Therapy requiring intensive monitoring for toxicity (Heparin, Nitro, Insulin, Cardizem)? @ -No Were any procedures done? @ -No Diagnosis/symptom? @ -Acute hypoxic respiratory failure, pneumonia, COPD exacerbation Acute, or Chronic, or Acute on Chronic? @ -Acute Uncomplicated (without systemic symptoms) or Complicated (systemic symptoms)? @ -Complicated Side effects of treatment? @ -No Exacerbation, Progression, or Severe Exacerbation? @ -No Poses a threat to life or bodily function? How? (Chest pain, USA, IA, pneumonia, PE, COPD, DKA, ARF, appy, cholecystitis, CVA, Diverticulitis, Homicidal, Suicidal, threat to staff... and all critical care pts) @ -Yes respiratory failure - Lab Data Result diagrams: 03/29/24 07:09 03/29/24 07:09 Lab Results 03/29/24 03/29/24 03/29/24 Range/Units 07:09 07:09 07:09 WBC 22.3 H (3.8-10.6) k/uL RBC 3.52 L (3.80-5.40) m/uL Hgb 11.5 (11.4-16.0) gm/dL Hct 35.5 (34.0-46.0) % MCV 100.6 H (80.0-100.0) fL MCH 32.6 (25.0-35.0) pg MCHC 32.4 (31.0-37.0) g/dL RDW 16.0 H (11.5-15.5) % Plt Count 407 (150-450) k/uL MPV 8.2 Neutrophils % 95 % Lymphocytes % 3 % Monocytes % 2 % Eosinophils % 0 % Basophils % 0 % Neutrophils # 21.1 H (1.3-7.7) k/uL Lymphocytes # 0.6 L (1.0-4.8) k/uL Monocytes # 0.4 (0-1.0) k/uL Eosinophils # 0.1 (0-0.7) k/uL Basophils # 0.1 (0-0.2) k/uL Manual Slide Review Performed Hypochromasia Slight Macrocytosis Slight PT 10.4 (10.0-12.5) sec INR 0.9 (<1.2) APTT 27.1 (22.0-30.0) sec Sodium 134 L (137-145) mmol/L Potassium 4.6 (3.5-5.1) mmol/L Chloride 107 (98-107) mmol/L Carbon Dioxide 30 (22-30) mmol/L Anion Gap -3 mmol/L BUN 22 H (7-17) mg/dL Creatinine 0.25 L (0.52-1.04) mg/dL Est GFR (CKD-EPI)AfAm >90 (>60 ml/min/1.73 sqM) Est GFR (CKD-EPI)NonAf >90 (>60 ml/min/1.73 sqM) Glucose 110 H (74-99) mg/dL Plasma Lactic Acid Isaac (0.7-2.0) mmol/L Calcium 8.4 (8.4-10.2) mg/dL Magnesium 2.0 (1.6-2.3) mg/dL Total Bilirubin 0.3 (0.2-1.3) mg/dL AST 27 (14-36) U/L ALT 20 (4-34) U/L Alkaline Phosphatase 185 H (38-126) U/L Troponin I (0.000-0.034) ng/mL NT-Pro-B Natriuret Pep 404 pg/mL Total Protein 4.5 L (6.3-8.2) g/dL Albumin 2.2 L (3.5-5.0) g/dL 03/29/24 03/29/24 Range/Units 07:09 07:09 WBC (3.8-10.6) k/uL RBC (3.80-5.40) m/uL Hgb (11.4-16.0) gm/dL Hct (34.0-46.0) % MCV (80.0-100.0) fL MCH (25.0-35.0) pg MCHC (31.0-37.0) g/dL RDW (11.5-15.5) % Plt Count (150-450) k/uL MPV Neutrophils % % Lymphocytes % % Monocytes % % Eosinophils % % Basophils % % Neutrophils # (1.3-7.7) k/uL Lymphocytes # (1.0-4.8) k/uL Monocytes # (0-1.0) k/uL Eosinophils # (0-0.7) k/uL Basophils # (0-0.2) k/uL Manual Slide Review Hypochromasia Macrocytosis PT (10.0-12.5) sec INR (<1.2) APTT (22.0-30.0) sec Sodium (137-145) mmol/L Potassium (3.5-5.1) mmol/L Chloride (98-107) mmol/L Carbon Dioxide (22-30) mmol/L Anion Gap mmol/L BUN (7-17) mg/dL Creatinine (0.52-1.04) mg/dL Est GFR (CKD-EPI)AfAm (>60 ml/min/1.73 sqM) Est GFR (CKD-EPI)NonAf (>60 ml/min/1.73 sqM) Glucose (74-99) mg/dL Plasma Lactic Acid Isaac 1.2 (0.7-2.0) mmol/L Calcium (8.4-10.2) mg/dL Magnesium (1.6-2.3) mg/dL Total Bilirubin (0.2-1.3) mg/dL AST (14-36) U/L ALT (4-34) U/L Alkaline Phosphatase (38-126) U/L Troponin I <0.012 (0.000-0.034) ng/mL NT-Pro-B Natriuret Pep pg/mL Total Protein (6.3-8.2) g/dL Albumin (3.5-5.0) g/dL - EKG Data -: EKG Interpreted by Me EKG Comments: EKG performed at 7: 03 sinus tachycardia rate of 105 NV 139 QRS 113 QT/QTc 319/380 Critical Care Time Critical Care Time: Yes Total Critical Care Time: 35 Disposition Clinical Impression: Pleural effusion, Acute exacerbation of chronic obstructive pulmonary disease, Acute hypoxic respiratory failure, Pneumonia Disposition: ADMITTED IP TO THIS [facility] Condition: Critical Referrals: Cory Lloyd MD [Primary Care Provider] - 1-2 days Time of Disposition: 09:24
[2024-03-29 07:36] LABS: ALT 20 U/L (4-34); AST 27 U/L (14-36); African American GFR (CKD) >90 (>60 ml/min/1.73 sqM); Albumin 2.2 g/dL (3.5-5.0); Alkaline Phosphatase 185 U/L (38-126); Anion Gap -3 mmol/L; Blood Urea Nitrogen 22 mg/dL (7-17); Calcium 8.4 mg/dL (8.4-10.2); Carbon Dioxide 30 mmol/L (22-30); Chloride 107 mmol/L (98-107); Glucose 110 mg/dL (74-99); Non-African American GFR(CKD) >90 (>60 ml/min/1.73 sqM); Potassium 4.6 mmol/L (3.5-5.1); Sodium 134 mmol/L (137-145); Total Bilirubin 0.3 mg/dL (0.2-1.3); Total Protein 4.5 g/dL (6.3-8.2)
--- NOTE | 2024-03-29 07:41 | XR ---
EXAMINATION TYPE: XR chest 1V portable DATE OF EXAM: 03/29/2024 COMPARISON: 03/17/2024 HISTORY: Shortness of breath TECHNIQUE: Single frontal view of the chest is obtained. FINDINGS: There is a bilateral small to moderate pleural effusion and bilateral consolidation. Under lying COPD. No pneumothorax. Diffuse osteopenia, arthropathy of the shoulders and degenerative change of the spine. IMPRESSION: A lateral pleural effusion and consolidation correlate for pneumonia otherwise consider CHF.
[2024-03-29 07:44] LABS: NT-Pro-B-Type Natriuretic Pept 404 pg/mL
[2024-03-29] MEDS: PIPERACILLIN-TAZOBACTAM 3.375 GM in SODIUM CHLORIDE 0.9% 100 ML IVPB SCH (08:25)
[2024-03-29] MEDS ORDERED: PNEUMONIA PROTOCOL UTILIZED 1 EACH MISC PO PRN (09:19)
[2024-03-29] MEDS ORDERED: IPRATROPIUM-ALBUTEROL 3 ML NEB INHALATION PRN (09:19)
[2024-03-29] MEDS ORDERED: VANCOMYCIN IV PER PHARMACY 1 EACH MISC MISCELLANE PRN (09:40)
[2024-03-29] MEDS ORDERED: bisacodyL 10 MG SUPP RECTAL PRN (09:53)
[2024-03-29] MEDS ORDERED: COLLAGENASE 250 UNIT/GM OINTMENT 30 GM TUBE TOPICAL PRN (09:53)
[2024-03-29] MEDS ORDERED: RX INFO: IV CONTRAST WAS GIVEN 1 EACH MISC MISCELLANE PRN (09:57)
[2024-03-29] MEDS ORDERED: ANIDULAFUNGIN 200 MG in SODIUM CHLORIDE 0.9% 200 ML IVPB ONE (10:00)
--- NOTE | 2024-03-29 10:03 | P.CNPUL ---
History of Present Illness Consult date: 03/29/24 Reason for consult: dyspnea History of present illness: 64-year-old female patient, known to us, the patient was treated in the hospital when she had a prolonged hospitalization from 01/30/2024 and she was discharged on 03/24/2024 to be readmitted to hospital on 03/29/2024 with worsening shortness of breath and respiratory failure. The patient was seen in emergency department. The patient is a significant respiratory distress and the patient is currently on a BiPAP at a pressure of 12 over 5 cm of water and FiO2 of 50%. Her current respiratory rate is in the low 30s. Blood pressure is stable. The patient is extremely lethargic, weak, has chronic wounds in her lower extremities bilaterally, has an indwelling Horn catheter which [facility] the prison she has not she is nonambulatory status in right foot is extremely cloudy with significant amount of debris's and some purulence. Chest x-ray was emergency department and it shows an extensive area of consolidation involving the left lung along with some small bilateral pleural effusions and background COPD. The patient was given Zithromax and Zosyn. ICU consultation was requested This patient is known to have advanced COPD. During her last hospitalization, the patient was in acute hypoxic respiratory failure requiring intubation mechanical ventilation and he was ultimately extubated on 03/17/2024. During the course of her illness, she was bronchoscope and the sputum sample on 03/13/2024 and 03/14/2024 was positive for haemophilus influenza and she was treated accordingly. She was also diagnosed having a right upper lobe pulmonary embolism treated with anticoagulation with Eliquis. During the course of her illness, the patient had systemic candidemia and the blood cultures was on 02/11/2024 was positive for Sarah albicans and the bronchial washings also showed Sarah glabrata. Urine culture was also positive for Sarah. The patient was given IV Diflucan and she completed the course of antifungal treatment. Her echocardiogram showed no evidence of any vegetation and her left-ventricular ejection fraction was essentially within normal limits. Infection and a hyperdynamic heart with an EF of around 70 to 75%. No significant valvular abnormalities. Her current labs show a white cell count of 22.3 which has been elevated since her discharge from the hospital, hemoglobin 11.7 and platelet count is 407, serum bicarbonate 30 and sodium levels of 134, BUN is 22 with a creatinine of 0.25. LFTs are within normal limits. Most recent procalcitonin level from 03/24/2024 was at 0.08. Blood cultures have been sent. Review of Systems Extremely debilitated, nonambulatory, quite lethargic, significant muscle atro phy in all 4 extremities, short of breath at this point in time on the BiPAP, unable to volunteer any history. She was quite debilitated following her most recent hospitalization the patient was at the prison where her condition decompensated. Past Medical History Past Medical History: COPD, Diabetes Mellitus, Hyperlipidemia, Hypertension, Pulmonary Embolus (PE) Additional Past Medical History / Comment(s): Chronic wound to the lower extremities History of Any Multi-Drug Resistant Organisms: None Reported Past Surgical History: Adenoidectomy, Hysterectomy, Tubal Ligation Additional Past Surgical History / Comment(s): 2 tumors removals Past Psychological History: Depression Smoking Status: Current every day smoker Past Alcohol Use History: None Reported Past Drug Use History: None Reported Medications and Allergies Home Medications Medication Instructions Recorded Confirmed Type Budesonide/Formoterol Fumarate 2 puff INHALATION RT-BID 01/29/24 03/29/24 History [Symbicort 160-4.5 Mcg Inhaler] Escitalopram [Lexapro] 10 mg PO DAILY 01/29/24 03/29/24 History Lactobacillus Rhamnosus GG 1 cap PO BID 01/29/24 03/29/24 History [Culturelle] Melatonin 3 mg PO HS PRN 01/29/24 03/29/24 History Montelukast [Singulair] 10 mg PO HS 01/29/24 03/29/24 History Nicotine 14Mg/24Hr Patch [Habitrol] 1 patch TRANSDERM DAILY 01/29/24 03/29/24 History Budesonide [Pulmicort] 1 mg INHALATION RT-BID ml 02/05/24 03/29/24 Rx Formoterol Fumarate [Perforomist] 20 mcg INHALATION RT-BID ml 02/05/24 03/29/24 Rx Pantoprazole [Protonix] 40 mg PO AC-BID tab 02/05/24 03/29/24 Rx Voriconazole [Vfend] 200 mg PO Q12HR tab 02/05/24 03/29/24 Rx Acetaminophen Tab [Tylenol] 650 mg PO Q4HR PRN tab 02/26/24 03/29/24 Rx Lactulose [Cephulac] 20 gm PO TID 30 Days #90 ml 02/26/24 03/29/24 Rx ALPRAZolam [Xanax] 0.25 mg PO QID tab 03/24/24 03/29/24 Rx Furosemide [Lasix] 20 mg PO DAILY tab 03/24/24 03/29/24 Rx amLODIPine [Norvasc] 5 mg PO DAILY tab 03/24/24 03/29/24 Rx polyethylene glycoL 3350 [Miralax] 17 gm PO DAILY packet 03/24/24 03/29/24 Rx predniSONE [Deltasone] 40 mg PO DAILY tab 03/24/24 03/29/24 Rx Amoxic-Pot Clav 875-125Mg 1 tab PO Q12HR 03/29/24 03/29/24 History [Augmentin 875-125] Apixaban Initiation Dose--VTE See Taper PO BID 03/29/24 03/29/24 History [Eliquis Initiation Dosing for VTE Treatment] Collagenase [Santyl Ointment] 1 applic TOPICAL DIRECTED PRN 03/29/24 03/29/24 History Collagenase [Santyl Ointment] 1 applic TOPICAL DAILY 03/29/24 03/29/24 History HYDROcodone/APAP 5-325MG [[place] 1 tab PO Q6HR PRN 03/29/24 03/29/24 History 5-325] INSULIN LISPRO (HumaLOG) [humaLOG] 5 units SQ AC-TID 03/29/24 03/29/24 History INSULIN LISPRO (HumaLOG) [humaLOG] See Protocol SQ ACHS 03/29/24 03/29/24 History Insulin Glargine [Lantus Vial] 15 unit SQ HS 03/29/24 03/29/24 History Ipratropium-Albuterol Nebulize 3 ml INHALATION RT-Q6H 03/29/24 03/29/24 History [Duoneb 0.5 mg-3 mg/3 ml Soln] Magnesium Hydroxide [Milk of 7,200 mg PO DAILY PRN 03/29/24 03/29/24 History Magnesia Concentrate] Na Phos,M-B/Na Phos,Di-Ba [Fleet 133 ml RECTAL DAILY PRN 07/03/24 07/03/24 History Adult] bisacodyL [Dulcolax] 10 mg RECTAL DAILY PRN 03/29/24 03/29/24 History Allergies Allergy/AdvReac Type Severity Reaction Status Date / Time No Known Allergies Allergy Verified 03/29/24 08:55 Physical Exam Vitals: Vital Signs Temp Pulse Resp BP Pulse Ox FiO2 03/29/24 09:11 106 H 90 H 110/74 91 L 03/29/24 08:52 50 03/29/24 08:43 70 03/29/24 08:01 112 H 26 H 123/80 97 03/29/24 07:29 98.0 F 104 H 28 H 111/69 91 L 03/29/24 07:27 103 H 03/29/24 07:25 100 03/29/24 07:24 100 03/29/24 06:57 97.5 F L 104 H 22 117/80 79 L Intake and Output 03/28/24 03/29/24 03/29/24 22:59 06:59 14:59 Other: Weight 49.895 kg GENERAL EXAM: Reveals a 64-year-old female, communicating, arousable, currently on a BiPAP at a pressure of 12/5 and FiO2 of 50%. Profoundly weak and debilitated. She looks quite cachectic at this point in time. HEAD: Normocephalic and atraumatic EYES: Normal reaction of pupils, equal size. NOSE: Clear with pink turbinates. THROAT: No erythema or exudates. NECK: No masses, no JVD. CHEST: No chest wall deformity. LUNGS: Diminished breath sounds at the bases no crackles rhonchi or wheezes, s cattered rhonchi and crackles specially in left lung base. Able to tolerate the BiPAP without any major difficulties. CVS: Distant S1-S2, no S3 gallop, no murmur. ABDOMEN: Soft nontender no megaly no rebound no guarding. Bowel sounds. SKIN: Decubitus unstageable pressure injury. Bilateral lower extremity wounds. Multiple superficial ulcerations noted in both lower extremities. No active drainage. The wound bases are essentially clean at this point and most of the wounds are present over the chavez bilaterally and various sizes and shapes. Pulses in lower extremities present. There are some edema in her ankles bilaterally and some edema in the upper extremities bilaterally. CENTRAL NERVOUS SYSTEM: Alert and oriented x 3, no gross focal neurologic deficit, lethargic is arousable and she is following commands and moving all 4 extremities other than limitation. Generalized muscle weakness in all 4 extremities. EXTREMITIES: Bipedal edema with multiple superficial skin lesions/ulcerations noted bilaterally Results - Laboratory Findings CBC and BMP: 03/29/24 07:09 03/29/24 07:09 PT/INR, D-dimer PT 10.4 sec (10.0-12.5) 03/29/24 07:09 INR 0.9 (<1.2) 03/29/24 07:09 Abnormal lab findings: Abnormal Labs 03/29/24 03/29/24 07:09 07:09 WBC 22.3 H RBC 3.52 L MCV 100.6 H RDW 16.0 H Neutrophils # 21.1 H Lymphocytes # 0.6 L Sodium 134 L BUN 22 H Creatinine 0.25 L Glucose 110 H Alkaline Phosphatase 185 H Total Protein 4.5 L Albumin 2.2 L Assessment and Plan Plan: Acute hypoxic respiratory failure requiring intubation and mechanical ve ntilation, secondary to acute multifocal pneumonia, the patient developed new infiltration of the lungs more extensive on the left, consider the possibility of healthcare associated pneumonia. The patient is currently on a BiPAP at a pressure of 12 over 5 cm of water, FiO2 of 50%, impending respiratory failure. Previous history of multifocal pneumonia, secondary to Haemophilus influenzae, diagnosed via bronchoscopy and BAL COPD Known history of a right upper lobe pulmonary embolism as noted on CT angiogram of the chest on admission, presently on Eliquis History of systemic candidemia, completed a course of Diflucan. The patient was also being given voriconazole on outpatient basis. Most recent positive blood culture was done 02/11/2024. The patient also had Sarah in her urine on 01/29/2024) and Sarah glabrata in the sputum on 03/14/2024. Chronic urinary retention with indwelling Horn catheter, rule out recurrent infection History of constipation status post decompressive sigmoidoscopy during her previous hospitalization Type 2 diabetes, maintained on insulin Benign essential hypertension Dyslipidemia Severe protein calorie malnutrition Chronic decubitus pressure ulcer and multiple skin ulcerations involving both lower extremities. Plan: Continue BiPAP for respiratory support for now at the same setting Obtain a blood gas Obtain a CAT scan of the chest Repeat blood cultures and sputum cultures High risk for respiratory failure requiring intubation mechanical ventilation. The patient is impending respiratory failure for now. Will try to support with her BiPAP for the time being and monitor her progress very closely Consult infectious disease check procalcitonin level Cover the patient with a combination of Zosyn and vancomycin and add the voriconazole for now Continue anticoagulation with Eliquis Wound care to lower extremities and the patient will be given Santyl Keep the patient n.p.o. for now Resume home medications IV fluids normal saline at rate of 75 cc an hour , Severe critical condition will transfer this patient to the intensive care unit. Time with Patient: Greater than 30
[2024-03-29] MEDS: SODIUM CHLORIDE 0.9% 1,000 ML IV ONE (10:27)
[2024-03-29] MEDS: SODIUM CHLORIDE 0.9% 1,000 ML IV SCH (10:28)
--- NOTE | 2024-03-29 11:01 | CT ---
EXAMINATION TYPE: CT angio chest CT DLP: 255.3 mGycm, Automated exposure control for dose reduction was used. DATE OF EXAM: 03/29/2024 10:40 AM COMPARISON: CTA chest 03/13/2024 CLINICAL INDICATION:Female, 64 years old with history of PULMONARY EMBOLUS; SOB, Hx of PE TECHNIQUE/CONTRAST: CTA scan of the thorax is performed with IV Contrast, patient injected with 65 cc mL of Isovue 370, p ulmonary embolism protocol. MIP images are created and reviewed. FINDINGS: Pulmonary Artery: There is no evidence for a filling defect within the pulmonary vasculature to sugge st acute pulmonary embolism. Resolution of previously seen right upper lobe pulmonary embolism. The p ulmonary artery is of normal size. Lungs/Pleura: Partial atelectasis of bilateral lower lobes. Increased patchy groundglass opacities th roughout both lungs left greater than right. Trace right and small to moderate left pleural effusions are demonstrated. Left pleural effusion is slightly increased in size. No pneumothorax. Airway: Large airways are patent. Heart: Heart is within normal limits for size.. Increased density within the left anterior descending coronary possibly representing stent graft versus atherosclerosis. Vasculature: No evidence of aortic aneurysm. Moderate atherosclerosis of the arterial vasculature. Di minutive left vertebral artery. Mediastinum: No gross evidence of adenopathy. Musculoskeletal: No acute osseous abnormalities. Remote bilateral rib fractures. Redemonstration of c ompression deformities involving the superior endplates of the T11 and L1 vertebral bodies with scler osis identified. Soft Tissues: Diffuse anasarca. Lower neck: No significant findings. Upper Abdomen: No significant findings. IMPRESSION: 1. No evidence of pulmonary embolism. Resolution of previously seen pulmonary embolism. 2. Worsening multifocal pneumonia. 3. Increased small to moderate left pleural effusion with similar trace right pleural effusion. Diffu se anasarca.
[2024-03-29 11:03] LABS: ABG Base Excess 5.2 mmol/L; ABG HCO3 30 mmol/L (21-25); ABG Oxygen Saturation 86.6 % (94-97); ABG PCO2 44 mmHg (35-45); ABG PH 7.45 (7.35-7.45); ABG TCO2 31 mmol/L (19-24); Allen Test Performed? Yes
[2024-03-29 11:06] LABS: ABG PO2 50 mmHg (83-108)
[2024-03-29] MEDS: IPRATROPIUM-ALBUTEROL 3 ML NEB INHALATION SCH ×2 (11:13→15:04)
[2024-03-29] MEDS: VANCOMYCIN 1,000 MG in SODIUM CHLORIDE 0.9% 250 ML IVPB SCH (11:26)
[2024-03-29] MEDS: APIXABAN 5 MG TAB PO SCH (12:00)
[2024-03-29] MEDS: VORICONAZOLE 200 MG TAB PO SCH (12:00)
[2024-03-29 12:58] LABS: RBC,Urine >182 /hpf (0-5); WBC,Urine 139 /hpf (0-5)
[2024-03-29 13:00] LABS: Appearance,Urine Bloody (Clear)
[2024-03-29] MEDS ORDERED: MELATONIN 3 MG TABLET PO PRN (13:41)
[2024-03-29] MEDS ORDERED: MAGNESIUM HYDROXIDE 2,400 MG/30 ML CUP PO PRN (13:41)
[2024-03-29] MEDS: LACTULOSE 20 GM/30 ML CUP PO SCH (16:17)
[2024-03-29] MEDS: methylPREDNISolone SOD SUCCI 40 MG/ML 1 ML VIAL IV SCH (16:34)
[2024-03-29] MEDS: PANTOPRAZOLE 40 MG TABLET PO SCH (17:33)
[2024-03-29] MEDS: ALPRAZolam 0.25 MG TAB PO SCH (17:33)
[2024-03-29] MEDS ORDERED: hydrALAZINE HCL 20 MG/ML 1 ML VIAL IVP PRN (18:52)
[2024-03-29] MEDS: FORMOTEROL FUMARATE 20 MCG/2 ML NEBU INHALATION SCH (19:36)
[2024-03-29] MEDS: BUDESONIDE 1 MG/2 ML NEBU INHALATION SCH (19:36)
[2024-03-29 20:51] LABS: Glucose,Whole Blood 150 mg/dL (70-110)
[2024-03-29] MEDS: INSULIN DETEMIR (LEVEMIR) 100 UNIT/ML SYR SQ SCH (21:12)
[2024-03-29] MEDS: ENOXAPARIN 40 MG/0.4 ML SYRINGE SQ SCH (21:13)
[2024-03-29] MEDS: PANTOPRAZOLE 40 MG/10 ML VIAL IVP SCH (21:15)
[2024-03-29] MEDS: MONTELUKAST 10 MG TAB PO SCH (21:16)
[2024-03-29 22:12] LABS: Glucose,Whole Blood 151 mg/dL (70-110)
[2024-03-29] MEDS ORDERED: NALOXONE 0.4 MG/ML 1 ML VIAL IV PRN (22:48)
--- NOTE | 2024-03-29 22:50 | P.CONS ---
History of Present Illness - Reason for Consult Consult date: 03/29/24 Sepsis Requesting physician: Radha Byrne - Chief Complaint Increasing shortness of breath x few days - History of Present Illness Patient is a 54-year-old female with a past medical history significant for diabetes mellitus hypertension hyperlipidemia PE COPD had recent admission to the hospital treated for pneumonia sputum was positive for Haemophilus influenzae patient received IV Zosyn and subsequently was switched to oral Augmentin with the patient has completed patient was transferred [facility] patient has been brought back to the hospital early this morning from the local [facility] for evaluation of worsening shortness of kem ath apparently the patient symptom has been getting worse over the last day or 2 with the patient seem to have more congested cough but not bring up significant amount of sputum no hemoptysis no pleuritic chest pain noticed to have worsening of breathing for the patient was brought to the hospital but denies having any URI symptoms or headache denies having any choking on the food no nausea vomiti ng or diarrhea on presentation to the hospital the patient was afebrile and no fever have recorded subsequently patient was tachycardic and hypoxic with O2 sats of 79% requiring BiPAP initially patient also borderline blood pressure patient white count 22.3 with a left shift ABG still shows a pO2 of 50% and pCO2 44 creatinine 0.25 liver enzymes has been normal Pro-Cameron 0.57 patient did have a chest x-ray left pleural effusion and consolidation correlate for pneumonia otherwise consider CHF patient also have a CT angiogram of the chest no evidence of PE worsening multifocal pneumonia patient has been started on vancomycin and Zosyn and voriconazole infectious disease was consulted for further management of antibiotic therapy Review of Systems Positive point and negatives has been mentioned in the HPI, complete review of systems was performed and all other systems are negative Past Medical History Past Medical History: COPD, Diabetes Mellitus, Hyperlipidemia, Hypertension, Pulmonary Embolus (PE) Additional Past Medical History / Comment(s): Chronic wound to the lower extremities History of Any Multi-Drug Resistant Organisms: None Reported Past Surgical History: Adenoidectomy, Hysterectomy, Tubal Ligation Additional Past Surgical History / Comment(s): 2 tumors removals Past Psychological History: Depression Smoking Status: Current every day smoker Past Alcohol Use History: None Reported Past Drug Use History: None Reported Medications and Allergies Home Medications Medication Instructions Recorded Confirmed Type Lactobacillus Rhamnosus GG 1 cap PO BID 01/29/24 03/29/24 History [Culturelle] Melatonin 3 mg PO HS PRN 01/29/24 03/29/24 History Montelukast [Singulair] 10 mg PO HS 01/29/24 03/29/24 History Nicotine 14Mg/24Hr Patch [Habitrol] 1 patch TRANSDERM DAILY 01/29/24 03/29/24 History Budesonide [Pulmicort] 1 mg INHALATION RT-BID ml 02/05/24 03/29/24 Rx Pantoprazole [Protonix] 40 mg PO AC-BID tab 02/05/24 03/29/24 Rx Acetaminophen Tab [Tylenol] 650 mg PO Q4HR PRN tab 02/26/24 03/29/24 Rx Lactulose [Cephulac] 20 gm PO TID 30 Days #90 ml 02/26/24 03/29/24 Rx amLODIPine [Norvasc] 5 mg PO DAILY tab 03/24/24 03/29/24 Rx predniSONE [Deltasone] 40 mg PO DAILY tab 03/24/24 03/29/24 Rx Collagenase [Santyl Ointment] 1 applic TOPICAL DIRECTED PRN 03/29/24 03/29/24 History Collagenase [Santyl Ointment] 1 applic TOPICAL DAILY 03/29/24 03/29/24 History HYDROcodone/APAP 5-325MG [[place] 1 tab PO Q6HR PRN 03/29/24 03/29/24 History 5-325] INSULIN LISPRO (HumaLOG) [humaLOG] 5 units SQ AC-TID 03/29/24 03/29/24 History INSULIN LISPRO (HumaLOG) [humaLOG] See Protocol SQ ACHS 03/29/24 03/29/24 History Insulin Glargine [Lantus Vial] 15 unit SQ HS 03/29/24 03/29/24 History ALPRAZolam [Xanax XR] 0.5 mg PO DAILY 3 Days #3 tab 04/13/24 Rx Budesonide-Formot 160-4.5 Mcg 2 puff INHALATION RT-BID each 04/13/24 Rx [Symbicort 160-4.5 Mcg Inhaler] Enoxaparin [Lovenox] 40 mg SQ BID each 04/13/24 Rx Escitalopram [Lexapro] 20 mg PO DAILY tab 04/13/24 Rx Furosemide [Lasix] 40 mg PO DAILY tab 04/13/24 Rx INSULIN ASPART (NovoLOG) [NovoLOG 0 unit SQ ACHS each 04/13/24 Rx (formulary)] Insulin Detemir (Levemir) [Levemir] 10 unit SQ DAILY@0700 each 04/13/24 Rx Ipratropium-Albuterol Nebulize 3 ml INHALATION RT-QID each 04/13/24 Rx [Duoneb 0.5 mg-3 mg/3 ml Soln] Magnesium Hydroxide [Milk of 7,200 mg PO DAILY PRN ml 04/13/24 Rx Magnesia] Zinc Oxide 20% Oint 1 applic TOPICAL TID PRN each 04/13/24 Rx predniSONE [Deltasone] 20 mg PO DAILY tab 04/13/24 Rx Nitrofurantoin Monohyd/M-Cryst 100 mg PO Q12HR #14 cap 04/14/24 Rx [Macrobid] Voriconazole [Vfend] 200 mg PO Q12HR #10 tablet 04/14/24 Rx Allergies Allergy/AdvReac Type Severity Reaction Status Date / Time No Known Allergies Allergy Verified 03/29/24 08:55 Physical Exam Vitals: Vital Signs Temp Pulse Resp BP Pulse Ox FiO2 03/29/24 12:00 100 16 96/61 92 L 03/29/24 11:24 102 H 03/29/24 11:14 104 H 70 03/29/24 11:10 70 03/29/24 11:00 101 H 23 101/57 91 L 03/29/24 10:00 105 H 26 H 104/75 92 L 03/29/24 09:11 106 H 90 H 110/74 91 L 03/29/24 08:52 50 03/29/24 08:43 70 03/29/24 08:01 112 H 26 H 123/80 97 03/29/24 07:29 98.0 F 104 H 28 H 111/69 91 L 03/29/24 07:27 103 H 03/29/24 07:25 100 03/29/24 07:24 100 03/29/24 06:57 97.5 F L 104 H 22 117/80 79 L Intake and Output 03/28/24 03/29/24 03/29/24 22:59 06:59 14:59 Other: Weight 49.895 kg GENERAL DESCRIPTION: Middle-aged female lying in bed, mild distress. tachypnea but no accessory muscle of respiration use. HEENT: Shows Pallor , no scleral icterus. Oral mucous membrane is dry. No pharyngeal erythema or thrush NECK: Trachea central, no thyromegaly. LUNGS: Unlabored breathing. Coarse breath sounds bilaterally HEART: S1, S2, regular rate and rhythm. No loud murmur ABDOMEN: Soft, no tenderness , guarding or rigidity, no organomegaly EXTREMITIES: No edema of feet. SKIN: No rash, no masses palpable. NEUROLOGICAL: The patient is awake, alert, oriented x3, mood and affect normal. Results CBC & Chem 7: 04/12/24 04:06 04/12/24 04:06 Labs: Abnormal Lab Results - Last 24 Hours (Table) 03/29/24 03/29/24 03/29/24 Range/Units 07:09 07:09 10:59 WBC 22.3 H (3.8-10.6) k/uL RBC 3.52 L (3.80-5.40) m/uL MCV 100.6 H (80.0-100.0) fL RDW 16.0 H (11.5-15.5) % Neutrophils # 21.1 H (1.3-7.7) k/uL Lymphocytes # 0.6 L (1.0-4.8) k/uL ABG pO2 50 L* (83-108) mmHg ABG HCO3 30 H (21-25) mmol/L ABG Total CO2 31 H (19-24) mmol/L ABG O2 Saturation 86.6 L (94-97) % Sodium 134 L (137-145) mmol/L BUN 22 H (7-17) mg/dL Creatinine 0.25 L (0.52-1.04) mg/dL Glucose 110 H (74-99) mg/dL Alkaline Phosphatase 185 H (38-126) U/L Total Protein 4.5 L (6.3-8.2) g/dL Albumin 2.2 L (3.5-5.0) g/dL Assessment and Plan (1) Aspiration pneumonia Status: Acute Code(s): J69.0 - PNEUMONITIS DUE TO INHALATION OF FOOD AND VOMIT SNOMED Code(s): 024209627 (2) Leukocytosis Status: Acute Code(s): D72.829 - ELEVATED WHITE BLOOD CELL COUNT, UNSPECIFIED SNOMED Code(s): 918282301 (3) Sepsis Status: Acute Code(s): A41.9 - SEPSIS, UNSPECIFIED ORGANISM SNOMED Code(s): 92257110 Plan: 1patient was in the hospital with sepsis in this patient who did have a leukocytosis tachycardia hypoxemia admitted currently for SIRS/sepsis source likely pneumonia concern for possible gram-negative versus gram-positive recently treated for Haemophilus influenzae pneumonia 2-try to obtain sputum for Gram stain and culture and check urine for Legionella antigen 3-patient to continue with the vancomycin however to decrease risk of nephrotoxicity switch Zosyn to cefepime Multiple question concern answered We will follow on clinical condition and cultures to further adjust medication if needed Thank you for this consultation we will follow the patient along with you Dictation was produced using [employer] dictation software. please excuse any grammatical, word or spelling errors. Time with Patient: Greater than 30
[2024-03-30] MEDS: CEFEPIME 2 GM in SODIUM CHLORIDE 0.9% 100 ML IVPB SCH (00:25)
[2024-03-30] MEDS: IPRATROPIUM-ALBUTEROL 3 ML NEB INHALATION SCH (03:39)
[2024-03-30 03:59] LABS: HCT 33.2 % (34.0-46.0); HGB 10.3 gm/dL (11.4-16.0); Hypochromasia Slight; MCH 31.5 pg (25.0-35.0); MCHC 30.9 g/dL (31.0-37.0); MCV 101.9 fL (80.0-100.0); Macrocytosis Slight; Platelet Count 350 k/uL (150-450); RBC 3.26 m/uL (3.80-5.40); RDW 15.8 % (11.5-15.5)
[2024-03-30 04:11] LABS: ALT 16 U/L (4-34); AST 20 U/L (14-36); African American GFR (CKD) >90 (>60 ml/min/1.73 sqM); Alkaline Phosphatase 136 U/L (38-126); Anion Gap 0 mmol/L; Blood Urea Nitrogen 25 mg/dL (7-17); Calcium 8.1 mg/dL (8.4-10.2); Carbon Dioxide 27 mmol/L (22-30); Chloride 109 mmol/L (98-107); Glucose 50 mg/dL (74-99); Non-African American GFR(CKD) >90 (>60 ml/min/1.73 sqM); Potassium 4.3 mmol/L (3.5-5.1); Sodium 136 mmol/L (137-145); Total Bilirubin 0.2 mg/dL (0.2-1.3); Total Protein 4.1 g/dL (6.3-8.2)
[2024-03-30 04:17] LABS: Glucose,Whole Blood 56 mg/dL (70-110)
[2024-03-30 04:20] LABS: Band Neutrophils % 44 %; Lymphocytes # (M) 0.36 k/uL (1.0-4.8); Neutrophils % (M) 54 %; Nucleated Red Blood Cells 0 /100 WBC (0-0); Total Cells Counted 100; Toxic Granulation Present
[2024-03-30] MEDS: DEXTROSE 50% SYRINGE 50 ML IVP STA ×2 (04:26→06:40)
[2024-03-30 04:54] LABS: Glucose,Whole Blood 77 mg/dL (70-110)
[2024-03-30 05:09] LABS: Glucose,Whole Blood 68 mg/dL (70-110)
[2024-03-30] MEDS: DEXTROSE 10% IN WATER 500 ML in EMPTY BAG 1 BAG IV SCH (05:20)
[2024-03-30 06:02] LABS: Glucose,Whole Blood 54 mg/dL (70-110)
[2024-03-30 06:36] LABS: Glucose,Whole Blood 49 mg/dL (70-110)
[2024-03-30 07:04] LABS: Glucose,Whole Blood 101 mg/dL (70-110)
--- NOTE | 2024-03-30 07:48 | XR ---
EXAMINATION TYPE: XR chest 1V DATE OF EXAM: 03/30/2024 5:21 AM CLINICAL INDICATION:Female, 64 years old with history of pneumonia/CHF; [facility] COMPARISON: Chest radiograph from one day prior. TECHNIQUE: XR chest 1V Frontal view of the chest. FINDINGS: Lungs/Pleura: Small bilateral pleural effusions and similar right lower and left mid and lung airspac e opacities Pulmonary vascularity: Unremarkable. Heart/mediastinum: Cardiomediastinal silhouette is unremarkable. Musculoskeletal: No acute osseous pathology. IMPRESSION: Stable exam with right basilar and left midlung airspace opacities and small bilateral pleural effusi ons.
[2024-03-30] MEDS: amLODIPine 5 MG TAB PO SCH (08:03)
[2024-03-30] MEDS: ESCITALOPRAM 10 MG TAB PO SCH (08:03)
[2024-03-30] MEDS: NICOTINE 14MG/24HR PATCH TRANSDERM SCH (08:16)
[2024-03-30 08:29] LABS: Glucose,Whole Blood 104 mg/dL (70-110)
[2024-03-30] MEDS ORDERED: ANIDULAFUNGIN 100 MG in SODIUM CHLORIDE 0.9% 100 ML IVPB SCH (09:00)
[2024-03-30] MEDS ORDERED: AZITHROMYCIN 500 MG in SODIUM CHLORIDE 0.9% 250 ML IVPB SCH (09:00)
[2024-03-30] MEDS ORDERED: ADENOSINE 3 MG/ML 2 ML VIAL IVP STA (10:10)
[2024-03-30] MEDS ORDERED: AMIODARONE 360 MG in DEXTROSE 5% IN WATER 200 ML IV ONE (10:18)
[2024-03-30] MEDS ORDERED: DEXTROSE 5% IN WATER 100 ML with AMIODARONE 150 MG IV ONE (10:18)
[2024-03-30] MEDS: VANCOMYCIN TROUGH DUE 1 EACH MISC MISCELLANE ONE (10:30)
[2024-03-30] MEDS: FUROSEMIDE 10 MG/ML 4 ML VIAL IV STA (11:35)
[2024-03-30 12:11] LABS: Glucose,Whole Blood 249 mg/dL (70-110)
[2024-03-30] MEDS: INSULIN ASPART (NovoLOG) 100 UNIT/ML VIAL SQ SCH (12:17)
--- NOTE | 2024-03-30 12:38 | P.PN ---
Subjective Progress Note Date: 03/30/24 64-year-old female patient, known to us, the patient was treated in the hospital when she had a prolonged hospitalization from 01/30/2024 and she was discharged on 03/24/2024 to be readmitted to hospital on 03/29/2024 with worsening shortness of breath and respiratory failure. The patient was seen in emergency department. The patient is a significant respiratory distress and the patient is currently on a BiPAP at a pressure of 12 over 5 cm of water and FiO2 of 50%. Her current respiratory rate is in the low 30s. Blood pressure is stable. The patient is extremely lethargic, weak, has chronic wounds in her lower extremities bilaterally, has an indwelling Horn catheter which was present at the custodial she has not she is nonambulatory status in right foot is extremely cloudy with significant amount of debris's and some purulence. Chest x-ray was emergency department and it shows an extensive area of consolidation involving the left lung along with some small bilateral pleural effusions and background COPD. The patient was given Zithromax and Zosyn. ICU consultation was requested This patient is known to have advanced COPD. During her last hospitalization, the patient was in acute hypoxic respiratory failure requiring intubation mechanical ventilation and he was ultimately extubated on 03/17/2024. During the course of her illness, she was bronchoscope and the sputum sample on 03/13/2024 and 03/14/2024 was positive for haemophilus influenza and she was treated accordingly. She was also diagnosed having a right upper lobe pulmonary embolism treated with anticoagulation with Eliquis. During the course of her illness, the patient had systemic candidemia and the blood cultures was on 02/11/2024 was positive for Sarah albicans and the bronchial washings also showed Sarah glabrata. Urine culture was also positive for Sarah. The patient was given IV Diflucan and she completed the course of antifungal treatment. Her echocardiogram showed no evidence of any vegetation and her left-ventricular ejection fraction was essentially within normal limits. Infection and a hyperdynamic heart with an EF of around 70 to 75%. No significant valvular abnormalities. Her current labs show a white cell count of 22.3 which has been elevated since her discharge from the hospital, hemoglobin 11.7 and platelet count is 407, serum bicarbonate 30 and sodium levels of 134, BUN is 22 with a creatinine of 0.25. LFTs are within normal limits. Most recent procalcitonin level from 03/24/2024 was at 0.08. Blood cultures have been sent. On 03/30/2024, the patient was taken off the BiPAP and the patient has been transitioned to oxygen at 3 L/min nasal cannula. No new complaints. Chest x- ray findings are essentially unchanged. The patient has stable right basilar and left midlung consolidation and bilateral pleural effusions. Nevertheless, she seems to be much more comfortable. She continues to have a congested cough and she is on a broad-spectrum antibiotics and the patient is currently on a combination of cefepime, vancomycin and voriconazole. Awaiting follow-up cu ltures on this patient. The white cell count is down to 18 with a hemoglobin 10.3 and a platelet count of 350. Electrolytes are stable with a BUN of 25 and a creatinine of 0.2. Procalcitonin level is at 0.57. She is weak yet awake and alert. Communicating. She has chronic wounds in lower extremities and some ongoing +1 edema lower extremities bilaterally. Moving all 4 extremities other than limitation. No altered mentation at this point in time. Objective - Vital Signs Vital signs: Vital Signs Temp 97.4 F L 03/30/24 08:00 Pulse 74 03/30/24 08:45 Resp 15 03/30/24 08:30 BP 113/68 03/30/24 08:30 Pulse Ox 99 03/30/24 08:30 FiO2 50 03/30/24 08:00 Intake & Output 03/29/24 03/30/24 03/30/24 18:59 06:59 18:59 Intake Total 895 330 Output Total 345 50 Balance 550 280 Weight 67.8 kg Intake: IV 895 330 Cefepime 2 gm In Sodium 100 100 Chloride 0.9% 100 ml @ 25 mls/hr IVPB Q8HR [facility] Rx# :[id number] Dextrose 10% in Water 500 20 80 ml In Empty Bag 1 bag @ 40 mls/hr IV .[id number] [facility] Rx#:[id number] Sodium Chloride 0.9% 1, 525 150 000 ml @ 75 mls/hr IV . [id number] [facility] Rx#:[id number] Vancomycin 1,000 mg In 250 Sodium Chloride 0.9% 250 ml @ 125 mls/hr IVPB Q8H [facility] Rx#:[id number] Output: Urine 345 50 Other: Voiding Method Indwelling Catheter Indwelling Catheter - Exam GENERAL EXAM: Reveals a 64-year-old female, communicating, arousable, currently on 3 L of oxygen by nasal cannula the patient was taken off the BiPAP. HEAD: Normocephalic and atraumatic EYES: Normal reaction of pupils, equal size. NOSE: Clear with pink turbinates. THROAT: No erythema or exudates. NECK: No masses, no JVD. CHEST: No chest wall deformity. LUNGS: Diminished breath sounds at the bases no crackles rhonchi or wheezes, sca ttered rhonchi and crackles specially in left lung base. CVS: Distant S1-S2, no S3 gallop, no murmur. ABDOMEN: Soft nontender no megaly no rebound no guarding. Bowel sounds. SKIN: Decubitus unstageable pressure injury. Bilateral lower extremity wounds. Multiple superficial ulcerations noted in both lower extremities. No active drainage. The wound bases are essentially clean at this point and most of the wounds are present over the chavez bilaterally and various sizes and shapes. Pulses in lower extremities present. There are some edema in her ankles bilaterally and some edema in the upper extremities bilaterally. CENTRAL NERVOUS SYSTEM: Alert and oriented x 3, no gross focal neurologic deficit, lethargic is arousable and she is following commands and moving all 4 extremities other than limitation. Generalized muscle weakness in all 4 extremities. EXTREMITIES: Bipedal edema with multiple superficial skin lesions/ulcerations noted bilaterally - Labs CBC & Chem 7: 03/30/24 03:24 03/30/24 03:24 Labs: Abnormal Lab Results - Last 24 Hours (Table) 03/29/24 03/29/24 03/29/24 Range/Units 07:09 10:59 20:49 WBC (3.8-10.6) k/uL RBC (3.80-5.40) m/uL Hgb (11.4-16.0) gm/dL Hct (34.0-46.0) % MCV (80.0-100.0) fL MCHC (31.0-37.0) g/dL RDW (11.5-15.5) % Neutrophils # (Manual) (1.3-7.7) k/uL Lymphocytes # (Manual) (1.0-4.8) k/uL ABG pO2 50 L* (83-108) mmHg ABG HCO3 30 H (21-25) mmol/L ABG Total CO2 31 H (19-24) mmol/L ABG O2 Saturation 86.6 L (94-97) % Sodium (137-145) mmol/L Chloride (98-107) mmol/L BUN (7-17) mg/dL Creatinine (0.52-1.04) mg/dL Glucose (74-99) mg/dL POC Glucose (mg/dL) 150 H (70-110) mg/dL Calcium (8.4-10.2) mg/dL Alkaline Phosphatase (38-126) U/L Total Protein (6.3-8.2) g/dL Albumin (3.5-5.0) g/dL Procalcitonin 0.57 H (0.02-0.09) ng/mL Urine Appearance (Clear) Urine RBC (0-5) /hpf Urine WBC (0-5) /hpf Urine WBC Clumps (None) /hpf 03/29/24 03/29/24 03/30/24 Range/Units 22:11 Unknown 03:24 WBC 18.0 H (3.8-10.6) k/uL RBC 3.26 L (3.80-5.40) m/uL Hgb 10.3 L (11.4-16.0) gm/dL Hct 33.2 L (34.0-46.0) % MCV 101.9 H (80.0-100.0) fL MCHC 30.9 L (31.0-37.0) g/dL RDW 15.8 H (11.5-15.5) % Neutrophils # (Manual) 17.60 H (1.3-7.7) k/uL Lymphocytes # (Manual) 0.36 L (1.0-4.8) k/uL ABG pO2 (83-108) mmHg ABG HCO3 (21-25) mmol/L ABG Total CO2 (19-24) mmol/L ABG O2 Saturation (94-97) % Sodium (137-145) mmol/L Chloride (98-107) mmol/L BUN (7-17) mg/dL Creatinine (0.52-1.04) mg/dL Glucose (74-99) mg/dL POC Glucose (mg/dL) 151 H (70-110) mg/dL Calcium (8.4-10.2) mg/dL Alkaline Phosphatase (38-126) U/L Total Protein (6.3-8.2) g/dL Albumin (3.5-5.0) g/dL Procalcitonin (0.02-0.09) ng/mL Urine Appearance Bloody H (Clear) Urine RBC >182 H (0-5) /hpf Urine WBC 139 H (0-5) /hpf Urine WBC Clumps Many H (None) /hpf 03/30/24 03/30/24 03/30/24 Range/Units 03:24 04:16 05:07 WBC (3.8-10.6) k/uL RBC (3.80-5.40) m/uL Hgb (11.4-16.0) gm/dL Hct (34.0-46.0) % MCV (80.0-100.0) fL MCHC (31.0-37.0) g/dL RDW (11.5-15.5) % Neutrophils # (Manual) (1.3-7.7) k/uL Lymphocytes # (Manual) (1.0-4.8) k/uL ABG pO2 (83-108) mmHg ABG HCO3 (21-25) mmol/L ABG Total CO2 (19-24) mmol/L ABG O2 Saturation (94-97) % Sodium 136 L (137-145) mmol/L Chloride 109 H (98-107) mmol/L BUN 25 H (7-17) mg/dL Creatinine 0.23 L (0.52-1.04) mg/dL Glucose 50 L (74-99) mg/dL POC Glucose (mg/dL) 56 L 68 L (70-110) mg/dL Calcium 8.1 L (8.4-10.2) mg/dL Alkaline Phosphatase 136 H (38-126) U/L Total Protein 4.1 L (6.3-8.2) g/dL Albumin 2.0 L (3.5-5.0) g/dL Procalcitonin (0.02-0.09) ng/mL Urine Appearance (Clear) Urine RBC (0-5) /hpf Urine WBC (0-5) /hpf Urine WBC Clumps (None) /hpf 03/30/24 03/30/24 Range/Units 06:01 06:35 WBC (3.8-10.6) k/uL RBC (3.80-5.40) m/uL Hgb (11.4-16.0) gm/dL Hct (34.0-46.0) % MCV (80.0-100.0) fL MCHC (31.0-37.0) g/dL RDW (11.5-15.5) % Neutrophils # (Manual) (1.3-7.7) k/uL Lymphocytes # (Manual) (1.0-4.8) k/uL ABG pO2 (83-108) mmHg ABG HCO3 (21-25) mmol/L ABG Total CO2 (19-24) mmol/L ABG O2 Saturation (94-97) % Sodium (137-145) mmol/L Chloride (98-107) mmol/L BUN (7-17) mg/dL Creatinine (0.52-1.04) mg/dL Glucose (74-99) mg/dL POC Glucose (mg/dL) 54 L 49 L* (70-110) mg/dL Calcium (8.4-10.2) mg/dL Alkaline Phosphatase (38-126) U/L Total Protein (6.3-8.2) g/dL Albumin (3.5-5.0) g/dL Procalcitonin (0.02-0.09) ng/mL Urine Appearance (Clear) Urine RBC (0-5) /hpf Urine WBC (0-5) /hpf Urine WBC Clumps (None) /hpf Assessment and Plan Plan: Acute hypoxic respiratory failure requiring intubation and mechanical ventilation, secondary to acute multifocal pneumonia, the patient developed new infiltration of the lungs more extensive on the left, consider the possibility of healthcare associated pneumonia. The patient is improved and more stable compared to yesterday. The patient was taken off the BiPAP and the patient is currently on 3 days of oxygen by nasal cannula. Remains on the same antibiotic coverage. Chest x-ray findings are stable. Procalcitonin level is mildly elevated. Cultures are still pending for now. Previous history of multifocal pneumonia, secondary to Haemophilus influenzae, diagnosed via bronchoscopy and BAL COPD Known history of a right upper lobe pulmonary embolism as noted on CT angiogram of the chest on admission, presently on Eliquis History of systemic candidemia, completed a course of Diflucan. The patient was also being given voriconazole on outpatient basis. Most recent positive blood culture was done 02/11/2024. The patient also had Sarah in her urine on 01/29/2024) and Sarah glabrata in the sputum on 03/14/2024. Chronic urinary retention with indwelling Horn catheter, rule out recurrent infection History of constipation status post decompressive sigmoidoscopy during her previous hospitalization Type 2 diabetes, maintained on insulin Benign essential hypertension Dyslipidemia Severe protein calorie malnutrition Chronic decubitus pressure ulcer and multiple skin ulcerations involving both lo wer extremities. Plan: Continue BiPAP for respiratory support as needed as the patient has been transitioned to treatment of oxygen by nasal cannula. Reviewed the CAT scan of the chest and the patient has bilateral pulmonary consolidation and bilateral pleural effusions. The patient was started on diuretics with Lasix 40 mg IV every 12 hours. Repeat blood cultures and sputum cultures and results are still pending for now. Consult infectious disease is appreciated. check procalcitonin level mildly elevated. Cover the patient with a combination of Zosyn and vancomycin and add the voriconazole for now Continue anticoagulation with Eliquis Wound care to lower extremities and the patient will be given Santyl Provide this patient with soft diet. Resume home medications IV fluids to KVO critical condition will transfer this patient to the intensive care unit. This evaluation was done and more than 30 minutes. Time with Patient: Greater than 30
--- NOTE | 2024-03-30 15:25 | P.PN ---
Subjective Progress Note Date: 03/30/24 Principal diagnosis: Reason for follow-up is pneumonia Patient is a 54-year-old female with a past medical history significant for diabetes mellitus hypertension hyperlipidemia PE COPD had recent admission to the hospital treated for pneumonia sputum was positive for H aemophilus influenzae received IV and oral antibioticssent to the [facility] brought back to the hospital worsening respiratory status and concern for possible pneumonia requiring admission in the ICU. On today's evaluation that is 03/30/2024,the patient remains to be afebrile, patient is 3 L nasal cannula supplemental oxygen patient mention breathing slightly comfortably she could have a cough unable to bring up any sputum no nausea no vomiting no abdominal pain no diarrhea. Patient white count is down to 18,000, creatinine 0.23 Vanco trough is 14.6 Objective - Vital Signs Vital signs: Vital Signs Temp 97.5 F L 03/30/24 12:00 Pulse 93 03/30/24 13:00 Resp 15 03/30/24 13:00 BP 117/69 03/30/24 13:00 Pulse Ox 93 L 03/30/24 13:00 FiO2 50 03/30/24 08:00 Intake & Output 03/29/24 03/30/24 03/30/24 18:59 06:59 18:59 Intake Total 895 490 Output Total 345 230 Balance 550 260 Weight 67.8 kg Intake: IV 895 490 Cefepime 2 gm In Sodium 100 100 Chloride 0.9% 100 ml @ 25 mls/hr IVPB Q8HR [facility] Rx# :[id number] Dextrose 10% in Water 500 20 200 ml In Empty Bag 1 bag @ 40 mls/hr IV .[id number] [facility] Rx#:[id number] Sodium Chloride 0.9% 1, 525 190 000 ml @ 10 mls/hr IV . Q24H [facility] Rx#:[id number] Vancomycin 1,000 mg In 250 Sodium Chloride 0.9% 250 ml @ 125 mls/hr IVPB Q8H [facility] Rx#:[id number] Output: Urine 345 230 Other: Voiding Method Indwelling Catheter Indwelling Catheter - Exam GENERAL DESCRIPTION: Middle-age female lying in bed in no distress RESPIRATORY SYSTEM: Unlabored breathing , decreased breath sounds at bases HEART: S1 S2 regular rate and rhythm , ABDOMEN: Soft , no tenderness EXTREMITIES: No edema feet - Labs CBC & Chem 7: 03/30/24 03:24 03/30/24 03:24 Labs: Abnormal Lab Results - Last 24 Hours (Table) 03/29/24 03/29/24 03/29/24 Range/Units 07:09 20:49 22:11 WBC (3.8-10.6) k/uL RBC (3.80-5.40) m/uL Hgb (11.4-16.0) gm/dL Hct (34.0-46.0) % MCV (80.0-100.0) fL MCHC (31.0-37.0) g/dL RDW (11.5-15.5) % Neutrophils # (Manual) (1.3-7.7) k/uL Lymphocytes # (Manual) (1.0-4.8) k/uL Sodium (137-145) mmol/L Chloride (98-107) mmol/L BUN (7-17) mg/dL Creatinine (0.52-1.04) mg/dL Glucose (74-99) mg/dL POC Glucose (mg/dL) 150 H 151 H (70-110) mg/dL Calcium (8.4-10.2) mg/dL Alkaline Phosphatase (38-126) U/L Total Protein (6.3-8.2) g/dL Albumin (3.5-5.0) g/dL Procalcitonin 0.57 H (0.02-0.09) ng/mL 03/30/24 03/30/24 03/30/24 Range/Units 03:24 03:24 04:16 WBC 18.0 H (3.8-10.6) k/uL RBC 3.26 L (3.80-5.40) m/uL Hgb 10.3 L (11.4-16.0) gm/dL Hct 33.2 L (34.0-46.0) % MCV 101.9 H (80.0-100.0) fL MCHC 30.9 L (31.0-37.0) g/dL RDW 15.8 H (11.5-15.5) % Neutrophils # (Manual) 17.60 H (1.3-7.7) k/uL Lymphocytes # (Manual) 0.36 L (1.0-4.8) k/uL Sodium 136 L (137-145) mmol/L Chloride 109 H (98-107) mmol/L BUN 25 H (7-17) mg/dL Creatinine 0.23 L (0.52-1.04) mg/dL Glucose 50 L (74-99) mg/dL POC Glucose (mg/dL) 56 L (70-110) mg/dL Calcium 8.1 L (8.4-10.2) mg/dL Alkaline Phosphatase 136 H (38-126) U/L Total Protein 4.1 L (6.3-8.2) g/dL Albumin 2.0 L (3.5-5.0) g/dL Procalcitonin (0.02-0.09) ng/mL 03/30/24 03/30/24 03/30/24 Range/Units 05:07 06:01 06:35 WBC (3.8-10.6) k/uL RBC (3.80-5.40) m/uL Hgb (11.4-16.0) gm/dL Hct (34.0-46.0) % MCV (80.0-100.0) fL MCHC (31.0-37.0) g/dL RDW (11.5-15.5) % Neutrophils # (Manual) (1.3-7.7) k/uL Lymphocytes # (Manual) (1.0-4.8) k/uL Sodium (137-145) mmol/L Chloride (98-107) mmol/L BUN (7-17) mg/dL Creatinine (0.52-1.04) mg/dL Glucose (74-99) mg/dL POC Glucose (mg/dL) 68 L 54 L 49 L* (70-110) mg/dL Calcium (8.4-10.2) mg/dL Alkaline Phosphatase (38-126) U/L Total Protein (6.3-8.2) g/dL Albumin (3.5-5.0) g/dL Procalcitonin (0.02-0.09) ng/mL 03/30/24 Range/Units 12:09 WBC (3.8-10.6) k/uL RBC (3.80-5.40) m/uL Hgb (11.4-16.0) gm/dL Hct (34.0-46.0) % MCV (80.0-100.0) fL MCHC (31.0-37.0) g/dL RDW (11.5-15.5) % Neutrophils # (Manual) (1.3-7.7) k/uL Lymphocytes # (Manual) (1.0-4.8) k/uL Sodium (137-145) mmol/L Chloride (98-107) mmol/L BUN (7-17) mg/dL Creatinine (0.52-1.04) mg/dL Glucose (74-99) mg/dL POC Glucose (mg/dL) 249 H (70-110) mg/dL Calcium (8.4-10.2) mg/dL Alkaline Phosphatase (38-126) U/L Total Protein (6.3-8.2) g/dL Albumin (3.5-5.0) g/dL Procalcitonin (0.02-0.09) ng/mL Assessment and Plan (1) Leukocytosis Current Visit: Yes Status: Acute Code(s): D72.829 - ELEVATED WHITE BLOOD CELL COUNT, UNSPECIFIED SNOMED Code(s): 065585522 (2) Pneumonia Current Visit: Yes Status: Acute Code(s): J18.9 - PNEUMONIA, UNSPECIFIED ORGANISM SNOMED Code(s): 140263149 Plan: 1patient was in the hospital with sepsis in this patient who did have a leukocytosis tachycardia hypoxemia admitted currently for SIRS/sepsis source likely pneumonia concern for possible gram-negative versus gram-positive recently treated for Haemophilus influenzae pneumonia 2-try to obtain sputum for Gram stain and culture and urine for Legionella antigen currently pending procalcitonin was mildly elevated 0.57 3-patient to continue with the vancomycin and cefepime and monitor clinical course closely Dictation was produced using [employer] dictation software. please excuse any grammatical, word or spelling errors. Time with Patient: Less than 30
[2024-03-30] MEDS ORDERED: AMIODARONE 450 MG in DEXTROSE 5% IN WATER 250 ML IV SCH (16:30)
[2024-03-30 17:06] LABS: Glucose,Whole Blood 206 mg/dL (70-110)
--- NOTE | 2024-03-30 18:00 | HP ---
HISTORY AND PHYSICAL HISTORY OF PRESENT ILLNESS: I saw the patient in the emergency room on 03/29/2024. A 64-year-old white female, complains of shortness of breath, respiratory distress, dyslipidemia, hypertension, heavy smoker, hospitalization for respiratory failure, was intubated, had bronchoscopy, was discharged on antibiotics, on 2 L to 3 L oxygen. She came back to the hospital. She had ongoing swelling of her upper and lower extremities, nonambulatory, coccyx wound with on and off oxygen supplementation. Reported no fever. Denies CHF. HOME MEDICINES: 1. Singulair 10 daily. 2. Melatonin daily. 3. Lactobacillus daily. 4. Lexapro 10 daily. 5. Symbicort puffs b.i.d. 6. DuoNeb . 7. Santyl to the wound. 8. daily. 9. Lantus 5 units t.i.d. with her meals . ALLERGIES: Negative. PAST MEDICAL HISTORY: 1. COPD. 2. Pulmonary hypertension. 3. Dyslipidemia. 4. CHF. 5. Protein calorie malnutrition. 6. Coccyx wounds. 7. Diabetes mellitus. 8. Dyslipidemia. REVIEW OF SYSTEMS: A 14-point review of systems unobtainable as she is obtunded in the ER. She is on 50% BiPAP, currently, she is not responding. She is sleeping comfortably. PAST SURGICAL HISTORY: 1. Adenoidectomy. 2. Hysterectomy. 3. Tubal ligation. PHYSICAL EXAMINATION: VITAL SIGNS: Temperature 97.4, pulse 104, blood pressure 117/80, O2 sats 79 when she got here. She is on 50% BiPAP at this time. GENERAL: She is thin, cachectic. She has third-spacing of fluids. She is malnourished. LUNGS: Scattered rhonchi and wheeze. CARDIOVASCULAR: S1, S2. HEMATOLOGY: Negative Homans. PSYCH: Poor mood and affect. Sleeping. Acute respiratory distress. She has COPD, CHF, protein calorie malnutrition, coccyx wounds, healthcare acquired pneumonia, most likely possibly aspiration pneumonia, broad- spectrum antibiotics, admitted to ICU, possibly may need a ventilator. She had pleural effusions on the CAT scan. She has COPD, hypoxemic respiratory failure, pneumonia. Prognosis guarded. Vancomycin and Zosyn have been started in the ER. Prognosis guarded. MMODL / IJN: [id number] /
[2024-03-30 19:58] LABS: Glucose,Whole Blood 262 mg/dL (70-110)
[2024-03-30 22:55] LABS: Glucose,Whole Blood 383 mg/dL (70-110)
[2024-03-30] MEDS: INSULIN DETEMIR (LEVEMIR) 100 UNIT/ML SYR SQ SCH (23:17)
[2024-03-30] MEDS: FUROSEMIDE 10 MG/ML 4 ML VIAL IV SCH (23:18)
[2024-03-30] MEDS: HYDROcodone/APAP 5-325MG 1 EACH TAB PO PRN (23:53)
--- NOTE | 2024-03-31 01:22 | PN ---
PROGRESS NOTE SUBJECTIVE: She had a chest x-ray showed stable exam with bibasilar left lung airspace opacities, small bilateral pleural effusions. She had a chest CT on admission, has showed no evidence of pulmonary embolism with some multifocal pneumonia, moderate pleural effusions. She was admitted to the ICU. OBJECTIVE: LUNGS: Scattered rhonchi and wheeze. CARDIOVASCULAR: S1, S2. HEENT: Normocephalic, atraumatic. EXTREMITIES: Third-spacing of fluids on extremities. She has acute hypoxemic respiratory failure requiring intubation, mechanical ventilation in the past, COPD, right upper lobe pulmonary embolism in the past, history of systemic candidemia, chronic urinary retention, history of constipation with fecaloma, hypertension, diabetes, protein-calorie malnutrition. She is on BiPAP. Broad-spectrum antibiotics. Cultures were done. PROGNOSIS: Guarded. Please see further orders. MMODL / IJN: [id number] /
[2024-03-31 07:01] LABS: Glucose,Whole Blood 198 mg/dL (70-110)
[2024-03-31 07:31] LABS: Basophils # (A) 0.1 k/uL (0-0.2); Basophils % (A) 0 %; Eosinophils % (A) 0 %; HCT 34.1 % (34.0-46.0); HGB 10.7 gm/dL (11.4-16.0); Hypochromasia Slight; Lymphocytes # (A) 0.1 k/uL (1.0-4.8); Lymphocytes % (A) 0 %; MCH 31.5 pg (25.0-35.0); MCHC 31.4 g/dL (31.0-37.0); MCV 100.5 fL (80.0-100.0); Macrocytosis Slight; Mean Platelet Volume 7.9; Monocytes # (A) 0.4 k/uL (0-1.0); Monocytes % (A) 2 %; Neutrophils # (A) 19.2 k/uL (1.3-7.7); Neutrophils % (A) 97 %; Platelet Count 383 k/uL (150-450); RBC 3.39 m/uL (3.80-5.40); RDW 15.8 % (11.5-15.5); WBC 19.8 k/uL (3.8-10.6)
--- NOTE | 2024-03-31 07:32 | XR ---
EXAMINATION TYPE: XR chest 1V DATE OF EXAM: 03/31/2024 COMPARISON: 03/30/2024 HISTORY: Cough TECHNIQUE: Single frontal view of the chest is obtained. FINDINGS: Bilateral infiltrate and small left effusion. Underlying osteopenia throughout the shoulde rs. Degenerative changes in the spine. Atherosclerotic change aorta. No pneumothorax. IMPRESSION: Stable bilateral infiltrate.
[2024-03-31 07:45] LABS: ALT 19 U/L (4-34); AST 22 U/L (14-36); African American GFR (CKD) >90 (>60 ml/min/1.73 sqM); Albumin 2.2 g/dL (3.5-5.0); Alkaline Phosphatase 221 U/L (38-126); Anion Gap 2 mmol/L; Blood Urea Nitrogen 23 mg/dL (7-17); Calcium 8.4 mg/dL (8.4-10.2); Carbon Dioxide 26 mmol/L (22-30); Chloride 109 mmol/L (98-107); Glucose 185 mg/dL (74-99); Non-African American GFR(CKD) >90 (>60 ml/min/1.73 sqM); Potassium 3.5 mmol/L (3.5-5.1); Sodium 137 mmol/L (137-145); Total Bilirubin 0.2 mg/dL (0.2-1.3); Total Protein 4.5 g/dL (6.3-8.2)
[2024-03-31 12:14] LABS: Glucose,Whole Blood 250 mg/dL (70-110)
[2024-03-31 12:33] VITALS: BMI 22.7
--- NOTE | 2024-03-31 14:47 | P.PN ---
Subjective Progress Note Date: 03/31/24 64-year-old female patient, known to us, the patient was treated in the hospital when she had a prolonged hospitalization from 01/30/2024 and she was discharged on 03/24/2024 to be readmitted to hospital on 03/29/2024 with worsening shortness of breath and respiratory failure. The patient was seen in emergency department. The patient is a significant respiratory distress and the patient is currently on a BiPAP at a pressure of 12 over 5 cm of water and FiO2 of 50%. Her current respiratory rate is in the low 30s. Blood pressure is stable. The patient is extremely lethargic, weak, has chronic wounds in her lower extremities bilaterally, has an indwelling Horn catheter which was present at the usp she has not she is nonambulatory status in right foot is extremely cloudy with significant amount of debris's and some purulence. Chest x-ray was emergency department and it shows an extensive area of consolidation involving the left lung along with some small bilateral pleural effusions and background COPD. The patient was given Zithromax and Zosyn. ICU consultation was requested This patient is known to have advanced COPD. During her last hospitalization, the patient was in acute hypoxic respiratory failure requiring intubation mechanical ventilation and he was ultimately extubated on 03/17/2024. During the course of her illness, she was bronchoscope and the sputum sample on 03/13/2024 and 03/14/2024 was positive for haemophilus influenza and she was treated accordingly. She was also diagnosed having a right upper lobe pulmonary embolism treated with anticoagulation with Eliquis. During the course of her illness, the patient had systemic candidemia and the blood cultures was on 02/11/2024 was positive for Sarah albicans and the bronchial washings also showed Sarah glabrata. Urine culture was also positive for Sarah. The patient was given IV Diflucan and she completed the course of antifungal treatment. Her echocardiogram showed no evidence of any vegetation and her left-ventricular ejection fraction was essentially within normal limits. Infection and a hyperdynamic heart with an EF of around 70 to 75%. No significant valvular abnormalities. Her current labs show a white cell count of 22.3 which has been elevated since her discharge from the hospital, hemoglobin 11.7 and platelet count is 407, serum bicarbonate 30 and sodium levels of 134, BUN is 22 with a creatinine of 0.25. LFTs are within normal limits. Most recent procalcitonin level from 03/24/2024 was at 0.08. Blood cultures have been sent. On 03/30/2024, the patient was taken off the BiPAP and the patient has been transitioned to oxygen at 3 L/min nasal cannula. No new complaints. Chest x- ray findings are essentially unchanged. The patient has stable right basilar and left midlung consolidation and bilateral pleural effusions. Nevertheless, she seems to be much more comfortable. She continues to have a congested cough and she is on a broad-spectrum antibiotics and the patient is currently on a combination of cefepime, vancomycin and voriconazole. Awaiting follow-up cu ltures on this patient. The white cell count is down to 18 with a hemoglobin 10.3 and a platelet count of 350. Electrolytes are stable with a BUN of 25 and a creatinine of 0.2. Procalcitonin level is at 0.57. She is weak yet awake and alert. Communicating. She has chronic wounds in lower extremities and some ongoing +1 edema lower extremities bilaterally. Moving all 4 extremities other than limitation. No altered mentation at this point in time. On 03/31/2024, the patient is stable. The patient remains on 40 Suboxone by nasal cannula. The patient does receive with IV Lasix and she is in a negative fluid balance of 1.8 L over the past 24 hours. Meanwhile, chest x-ray from today show s stable bilateral pulm infiltrates. The patient remains on the same antibiotic coverage includes cefepime, vancomycin and voriconazole. Blood cultures are still negative. The white cell count of 19 with a hemoglobin 10.7 and platelet count of 383. BUN is 23 with a creatinine 0.3. Sodium level is at 137. The patient continues to have wound care to lower extremities. Awake and alert and communicating. Remains on bronchodilators. Remains on steroids. Remains on Levemir insulin for blood sugar control at 15 units at bedtime and a sliding scale coverage. No other significant events overnight. Objective - Vital Signs Vital signs: Vital Signs Temp 98.6 F 03/31/24 07:35 Pulse 97 03/31/24 07:35 Resp 17 03/31/24 07:35 BP 145/82 03/31/24 07:35 Pulse Ox 94 L 03/31/24 07:35 FiO2 50 03/30/24 08:00 Intake & Output 03/30/24 03/31/24 03/31/24 18:59 06:59 18:59 Intake Total 1270 Output Total 1380 1700 Balance -110 -1700 Intake: IV 910 Cefepime 2 gm In Sodium 200 Chloride 0.9% 100 ml @ 25 mls/hr IVPB Q8HR [facility] Rx# :[id number] Dextrose 10% in Water 500 200 ml In Empty Bag 1 bag @ 40 mls/hr IV .[id number] [facility] Rx#:[id number] Sodium Chloride 0.9% 1, 260 000 ml @ 10 mls/hr IV . Q24H [facility] Rx#:[id number] Vancomycin 1,000 mg In 250 Sodium Chloride 0.9% 250 ml @ 125 mls/hr IVPB Q8H [facility] Rx#:[id number] Oral 360 Output: Urine 1380 1700 Other: Voiding Method Indwelling Catheter Indwelling Catheter - Exam GENERAL EXAM: Reveals a 64-year-old female, communicating, arousable, currently on 3 L of oxygen by nasal cannula the patient was taken off the BiPAP. HEAD: Normocephalic and atraumatic EYES: Normal reaction of pupils, equal size. NOSE: Clear with pink turbinates. THROAT: No erythema or exudates. NECK: No masses, no JVD. CHEST: No chest wall deformity. LUNGS: Diminished breath sounds at the bases no crackles rhonchi or wheezes, scattered rhonchi and crackles specially in left lung base. CVS: Distant S1-S2, no S3 gallop, no murmur. ABDOMEN: Soft nontender no megaly no rebound no guarding. Bowel sounds. SKIN: Decubitus unstageable pressure injury. Bilateral lower extremity wounds. Multiple superficial ulcerations noted in both lower extremities. No active drainage. The wound bases are essentially clean at this point and most of the wounds are present over the chavez bilaterally and various sizes and shapes. Pulses in lower extremities present. There are some edema in her ankles bilaterally and some edema in the upper extremities bilaterally. CENTRAL NERVOUS SYSTEM: Alert and oriented x 3, no gross focal neurologic deficit, lethargic is arousable and she is following commands and moving all 4 extremities other than limitation. Generalized muscle weakness in all 4 extremi ties. EXTREMITIES: Bipedal edema with multiple superficial skin lesions/ulcerations noted bilaterally - Labs CBC & Chem 7: 03/31/24 06:42 03/31/24 06:42 Labs: Abnormal Lab Results - Last 24 Hours (Table) 03/30/24 03/30/24 03/30/24 Range/Units 12:09 17:04 19:56 WBC (3.8-10.6) k/uL RBC (3.80-5.40) m/uL Hgb (11.4-16.0) gm/dL MCV (80.0-100.0) fL RDW (11.5-15.5) % Neutrophils # (1.3-7.7) k/uL Lymphocytes # (1.0-4.8) k/uL Chloride (98-107) mmol/L BUN (7-17) mg/dL Creatinine (0.52-1.04) mg/dL Glucose (74-99) mg/dL POC Glucose (mg/dL) 249 H 206 H 262 H (70-110) mg/dL Alkaline Phosphatase (38-126) U/L Total Protein (6.3-8.2) g/dL Albumin (3.5-5.0) g/dL 03/30/24 03/31/24 03/31/24 Range/Units 22:51 06:42 06:42 WBC 19.8 H (3.8-10.6) k/uL RBC 3.39 L (3.80-5.40) m/uL Hgb 10.7 L (11.4-16.0) gm/dL MCV 100.5 H (80.0-100.0) fL RDW 15.8 H (11.5-15.5) % Neutrophils # 19.2 H (1.3-7.7) k/uL Lymphocytes # 0.1 L (1.0-4.8) k/uL Chloride 109 H (98-107) mmol/L BUN 23 H (7-17) mg/dL Creatinine 0.31 L (0.52-1.04) mg/dL Glucose 185 H (74-99) mg/dL POC Glucose (mg/dL) 383 H (70-110) mg/dL Alkaline Phosphatase 221 H (38-126) U/L Total Protein 4.5 L (6.3-8.2) g/dL Albumin 2.2 L (3.5-5.0) g/dL 03/31/24 Range/Units 06:57 WBC (3.8-10.6) k/uL RBC (3.80-5.40) m/uL Hgb (11.4-16.0) gm/dL MCV (80.0-100.0) fL RDW (11.5-15.5) % Neutrophils # (1.3-7.7) k/uL Lymphocytes # (1.0-4.8) k/uL Chloride (98-107) mmol/L BUN (7-17) mg/dL Creatinine (0.52-1.04) mg/dL Glucose (74-99) mg/dL POC Glucose (mg/dL) 198 H (70-110) mg/dL Alkaline Phosphatase (38-126) U/L Total Protein (6.3-8.2) g/dL Albumin (3.5-5.0) g/dL Microbiology - Last 24 Hours (Table) 03/29/24 08:28 Blood Culture - Preliminary Blood 03/29/24 08:05 Blood Culture - Preliminary Blood 03/29/24 Unknown Urine Culture - Final Urine,Voided Assessment and Plan Plan: Acute hypoxic respiratory failure requiring intubation and mechanical ventilation, secondary to acute multifocal pneumonia, the patient developed new infiltration of the lungs more extensive on the left, consider the possibility of healthcare associated pneumonia. The patient is improved and more stable compared to yesterday. Remains on the same antibiotic coverage. Chest x-ray findings are stable. Procalcitonin level is mildly elevated. Cultures are still pending for now. The patient is currently on 40s of oxygen by nasal cannula. Patient is currently off the BiPAP. Responding well to diuretics. Chest x-ray findings are showing stable bilateral pulmonary consolidation left more than right. Previous history of multifocal pneumonia, secondary to Haemophilus influenzae, diagnosed via bronchoscopy and BAL COPD Known history of a right upper lobe pulmonary embolism as noted on CT angiogram of the chest on admission, presently on Eliquis History of systemic candidemia, completed a course of Diflucan. The patient was also being given voriconazole on outpatient basis. Most recent positive blood c ulture was done 02/11/2024. The patient also had Sarah in her urine on 01/29/2024) and Sarah glabrata in the sputum on 03/14/2024. Chronic urinary retention with indwelling Horn catheter, rule out recurrent infection History of constipation status post decompressive sigmoidoscopy during her prev ious hospitalization Type 2 diabetes, maintained on insulin Benign essential hypertension Dyslipidemia Severe protein calorie malnutrition Chronic decubitus pressure ulcer and multiple skin ulcerations involving both lower extremities. Plan: Patient is currently off the BiPAP and 40 subluxable nasal cannula Reviewed the CAT scan of the chest and the patient has bilateral pulmonary consolidation and bilateral pleural effusions. Continue n diuretics with Lasix 40 mg IV every 12 hours. Repeat blood cultures and sputum cultures and results are still pending for now. White cell count remains somewhat elevated. Consult infectious disease is appreciated. check procalcitonin level mildly elevated. Cover the patient with a combination of Zosyn and vancomycin and add the voriconazole for now Continue anticoagulation with Eliquis Wound care to lower extremities and the patient will be given Santyl Provide this patient with soft diet. Resume home medications IV fluids to KVO
--- NOTE | 2024-03-31 14:54 | PN ---
PROGRESS NOTE SUBJECTIVE: The patient has stable bilateral infiltrates. She is on IV antibiotics. Protein- calorie malnutrition. Addressed by dietitian. OBJECTIVE: VITAL SIGNS: Saturation 94% on 4 L, blood pressure 120s-140s/80s, temperature 96, pulse rate is 97, and respiratory rate is 16. CARDIOVASCULAR: S1 and S2. LUNGS: Decreased breath sounds x4. PSYCH: Fair mood and affect. NEUROLOGIC: Alert and oriented x3. OPHTHALMOLOGIC: Pupils equal, round, and reactive. Continue current treatment. Prognosis guarded. Continue to wean down oxygen as tolerated. Continue on her breathing treatments, antibiotics for aspiration pneumonia. Prognosis guarded. MMODL / IJN: [id number] /
--- NOTE | 2024-03-31 15:00 | P.PN ---
Subjective Progress Note Date: 03/31/24 Principal diagnosis: Reason for follow-up is pneumonia Patient is a 54-year-old female with a past medical history significant for diabetes mellitus hypertension hyperlipidemia PE COPD had recent admission to the hospital treated for pneumonia sputum was positive for H aemophilus influenzae received IV and oral antibioticssent to the care home brought back to the hospital worsening respiratory status and concern for possible pneumonia requiring admission in the ICU. On today's evaluation that is 03/31/2024, the patient continues to be afebrile, the patient is on 4 L current oxygen and breathing comfortably, the Pt denies having any chest pain or worsening cough and no sputum production, the patient denies having any abdominal pain no vomiting or any diarrhea has been reported by the nursing staff. Patient white count is 19.8, creatinine 0.31 blood cultures pending sputum not collected Objective - Vital Signs Vital signs: Vital Signs Temp 98.6 F 03/31/24 07:35 Pulse 100 03/31/24 11:47 Resp 17 03/31/24 07:35 BP 145/82 03/31/24 07:35 Pulse Ox 94 L 03/31/24 07:35 FiO2 50 03/30/24 08:00 Intake & Output 03/30/24 03/31/24 03/31/24 18:59 06:59 18:59 Intake Total 1270 Output Total 1380 1700 Balance -110 -1700 Weight 67.8 kg Intake: IV 910 Cefepime 2 gm In Sodium 200 Chloride 0.9% 100 ml @ 25 mls/hr IVPB Q8HR [facility] Rx# :[id number] Dextrose 10% in Water 500 200 ml In Empty Bag 1 bag @ 40 mls/hr IV .[id number] [facility] Rx#:[id number] Sodium Chloride 0.9% 1, 260 000 ml @ 10 mls/hr IV . Q24H [facility] Rx#:[id number] Vancomycin 1,000 mg In 250 Sodium Chloride 0.9% 250 ml @ 125 mls/hr IVPB Q8H [facility] Rx#:[id number] Oral 360 Output: Urine 1380 1700 Other: Voiding Method Indwelling Catheter Indwelling Catheter - Exam GENERAL DESCRIPTION: Middle-age female lying in bed in no distress RESPIRATORY SYSTEM: Unlabored breathing , decreased breath sounds at bases HEART: S1 S2 regular rate and rhythm , ABDOMEN: Soft , no tenderness EXTREMITIES: No edema feet - Labs CBC & Chem 7: 03/31/24 06:42 03/31/24 06:42 Labs: Abnormal Lab Results - Last 24 Hours (Table) 03/30/24 03/30/24 03/30/24 Range/Units 17:04 19:56 22:51 WBC (3.8-10.6) k/uL RBC (3.80-5.40) m/uL Hgb (11.4-16.0) gm/dL MCV (80.0-100.0) fL RDW (11.5-15.5) % Neutrophils # (1.3-7.7) k/uL Lymphocytes # (1.0-4.8) k/uL Chloride (98-107) mmol/L BUN (7-17) mg/dL Creatinine (0.52-1.04) mg/dL Glucose (74-99) mg/dL POC Glucose (mg/dL) 206 H 262 H 383 H (70-110) mg/dL Alkaline Phosphatase (38-126) U/L Total Protein (6.3-8.2) g/dL Albumin (3.5-5.0) g/dL 03/31/24 03/31/24 03/31/24 Range/Units 06:42 06:42 06:57 WBC 19.8 H (3.8-10.6) k/uL RBC 3.39 L (3.80-5.40) m/uL Hgb 10.7 L (11.4-16.0) gm/dL MCV 100.5 H (80.0-100.0) fL RDW 15.8 H (11.5-15.5) % Neutrophils # 19.2 H (1.3-7.7) k/uL Lymphocytes # 0.1 L (1.0-4.8) k/uL Chloride 109 H (98-107) mmol/L BUN 23 H (7-17) mg/dL Creatinine 0.31 L (0.52-1.04) mg/dL Glucose 185 H (74-99) mg/dL POC Glucose (mg/dL) 198 H (70-110) mg/dL Alkaline Phosphatase 221 H (38-126) U/L Total Protein 4.5 L (6.3-8.2) g/dL Albumin 2.2 L (3.5-5.0) g/dL 03/31/24 Range/Units 12:12 WBC (3.8-10.6) k/uL RBC (3.80-5.40) m/uL Hgb (11.4-16.0) gm/dL MCV (80.0-100.0) fL RDW (11.5-15.5) % Neutrophils # (1.3-7.7) k/uL Lymphocytes # (1.0-4.8) k/uL Chloride (98-107) mmol/L BUN (7-17) mg/dL Creatinine (0.52-1.04) mg/dL Glucose (74-99) mg/dL POC Glucose (mg/dL) 250 H (70-110) mg/dL Alkaline Phosphatase (38-126) U/L Total Protein (6.3-8.2) g/dL Albumin (3.5-5.0) g/dL Microbiology - Last 24 Hours (Table) 03/29/24 08:28 Blood Culture - Preliminary Blood 03/29/24 08:05 Blood Culture - Preliminary Blood 03/29/24 Unknown Urine Culture - Final Urine,Voided Assessment and Plan (1) Leukocytosis Current Visit: Yes Status: Acute Code(s): D72.829 - ELEVATED WHITE BLOOD CELL COUNT, UNSPECIFIED SNOMED Code(s): 385791894 (2) Pneumonia Current Visit: Yes Status: Acute Code(s): J18.9 - PNEUMONIA, UNSPECIFIED ORGANISM SNOMED Code(s): 998661590 Plan: 1patient was in the hospital with sepsis in this patient who did have a leukocytosis tachycardia hypoxemia admitted currently for SIRS/sepsis source likely pneumonia concern for possible gram-negative versus gram-positive recen tly treated for Haemophilus influenzae pneumonia 2-sputum has not been collected blood culture 4 negative, urine for Legionella antigen currently pending procalcitonin was mildly elevated 0.57 3-patient to continue with the vancomycin and cefepime, elevated white, likely steroid related and will be monitored closely Dictation was produced using [employer] dictation software. please excuse any grammatical, word or spelling errors. Time with Patient: Less than 30
[2024-03-31] MEDS: VANCOMYCIN 1,000 MG in SODIUM CHLORIDE 0.9% 250 ML IVPB SCH (15:03)
[2024-03-31 16:29] LABS: Glucose,Whole Blood 280 mg/dL (70-110)
[2024-03-31 20:36] LABS: Glucose,Whole Blood 272 mg/dL (70-110)
[2024-04-01 06:18] LABS: Glucose,Whole Blood 182 mg/dL (70-110)
[2024-04-01 09:29] LABS: BUN/Creat Ratio 65.33 Ratio (12.00-20.00); Blood Urea Nitrogen 19.6 mg/dL (9.0-27.0); Glucose 168 mg/dL (70-110)
[2024-04-01 09:30] LABS: Basophils # (A) 0.08 X 10*3/uL (0.00-0.10); Basophils % (A) 0.3 %; Carbon Dioxide 25.3 mmol/L (21.6-31.8); Chloride 105 mmol/L (96-109); Eosinophils # (A) 0 X 10*3/uL (0.04-0.35); Eosinophils % (A) 0 %; HCT 30.8 % (37.2-46.3); Lymphocytes # (A) 0.09 X 10*3/uL (0.90-5.00); Lymphocytes % (A) 0.4 %; MCH 31.2 pg (27.0-32.0); MCHC 32.5 g/dL (32.0-37.0); Monocytes # (A) 0.26 X 10*3/uL (0.20-1.00); Monocytes % (A) 1.1 %; NRBC Per 100 WBC 0.03 X 10*3/uL (0.00-0.01); Neutrophils # (A) 22.73 X 10*3/uL (1.80-7.70); Neutrophils % (A) 97.8 %; Platelet Count 334 X 10*3/uL (140-440); Potassium 3.1 mmol/L (3.5-5.5); RBC 3.21 X 10*6/uL (4.10-5.20); Sodium 141 mmol/L (135-145); WBC 23.26 X 10*3/uL (4.50-10.00)
--- NOTE | 2024-04-01 10:35 | P.PN ---
Subjective Progress Note Date: 04/01/24 Principal diagnosis: acute on chronic hypoxic respiratory failure COPD healthcare associated pneumonia pulmonary embolism History of systemic candidemia History of chronic constipation Chronic urinary retention insulin-requiring type 2 diabetes mellitus hypertension 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 Chronic decubitus ulcer 04/01/2024, patient seen eval examined during rounds labs reviewed medications reviewed care plan discussed with the patient, sitting upright on the bed on 4 L oxygen, ongoing cough congestion is present, denies any diarrhea and nausea vomiting, patient refused and declined use of CPAP machine of BiPAP machine was to continue oxygen. Vitals today reviewed blood pressure is 144/87 respiratory rate is 18 saturation of 95%. Oxygen, labs from today reviewed white cell count is 23.6 hemoglobin and hematocrit 1030 potassium is 3.1 BUN/creatinine 19/0.3 glucose is 160, WBC count is rising, we will check with infectious disease services, potassium is declining due to diuresis,Will give 40 mEq of KCl today Objective - Vital Signs Vital signs: Vital Signs Temp 98.0 F 04/01/24 07:36 Pulse 92 04/01/24 08:38 Resp 18 04/01/24 07:36 BP 144/87 04/01/24 07:36 Pulse Ox 95 04/01/24 08:21 FiO2 50 03/30/24 08:00 Intake & Output 03/31/24 04/01/24 04/01/24 18:59 06:59 18:59 Output Total 1800 1900 Balance -1800 -1900 Weight 67.8 kg Output: Urine 1800 1900 Other: Voiding Method Indwelling Catheter Indwelling Catheter # Bowel Movements 1 1 1 - Constitutional General appearance: Present: average body habitus, cooperative, disheveled - EENT Eyes: Present: EOMI, PERRLA, poor dentition ENT: Present: normal oropharynx Ears: bilateral: normal - Neck Neck: Present: normal ROM Carotids: bilateral: upstroke normal Thyroid: bilateral: normal size - Respiratory Respiratory: bilateral: CTA - Cardiovascular Rhythm: regular Heart sounds: normal: S1, S2 - Gastrointestinal General gastrointestinal: Present: soft - Integumentary Integumentary: Present: normal turgor - Neurologic Neurologic: Present: CNII-XII intact - Musculoskeletal Musculoskeletal: Present: gait normal, generalized weakness - Psychiatric Psychiatric: Present: A&O x's 3, appropriate affect, intact judgment & insight - Labs CBC & Chem 7: 04/01/24 06:12 04/01/24 06:12 Labs: Abnormal Lab Results - Last 24 Hours (Table) 03/31/24 03/31/24 03/31/24 Range/Units 12:12 16:27 20:35 WBC (4.50-10.00) X 10*3/uL RBC (4.10-5.20) X 10*6/uL Hgb (12.0-15.0) g/dL Hct (37.2-46.3) % RDW (11.5-14.5) % Immature Gran # (0.00-0.04) X 10*3/uL Neutrophils # (1.80-7.70) X 10*3/uL Lymphocytes # (0.90-5.00) X 10*3/uL Eosinophils # (0.04-0.35) X 10*3/uL NRBC/100 WBC Diff (0.00-0.01) X 10*3/uL Potassium (3.5-5.5) mmol/L Creatinine (0.6-1.5) mg/dL BUN/Creatinine Ratio (12.00-20.00) Ratio Glucose (70-110) mg/dL POC Glucose (mg/dL) 250 H 280 H 272 H (70-110) mg/dL Calcium (8.7-10.3) mg/dL 04/01/24 04/01/24 04/01/24 Range/Units 06:12 06:12 06:17 WBC 23.26 H (4.50-10.00) X 10*3/uL RBC 3.21 L (4.10-5.20) X 10*6/uL Hgb 10.0 L (12.0-15.0) g/dL Hct 30.8 L (37.2-46.3) % RDW 16.0 H (11.5-14.5) % Immature Gran # 0.10 H (0.00-0.04) X 10*3/uL Neutrophils # 22.73 H (1.80-7.70) X 10*3/uL Lymphocytes # 0.09 L (0.90-5.00) X 10*3/uL Eosinophils # 0 L (0.04-0.35) X 10*3/uL NRBC/100 WBC Diff 0.03 H (0.00-0.01) X 10*3/uL Potassium 3.1 L (3.5-5.5) mmol/L Creatinine 0.3 L (0.6-1.5) mg/dL BUN/Creatinine Ratio 65.33 H (12.00-20.00) Ratio Glucose 168 H (70-110) mg/dL POC Glucose (mg/dL) 182 H (70-110) mg/dL Calcium 8.0 L (8.7-10.3) mg/dL Microbiology - Last 24 Hours (Table) 03/29/24 08:28 Blood Culture - Preliminary Blood 03/29/24 08:05 Blood Culture - Preliminary Blood Assessment and Plan Assessment: acute on chronic hypoxic respiratory failure COPD healthcare associated pneumonia pulmonary embolism History of systemic candidemia History of chronic constipation Chronic urinary retention insulin-requiring type 2 diabetes mellitus hypertension 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 Chronic decubitus ulcer Plan: continue long and short-acting insulin with sliding scale NovoLog and Levemir continue pain management with [place] 4 times a day as needed Diuresis with Lasix Anticoagulation with Lovenox 40 mg subcu every 12 Bronchodilators with DuoNeb and his steroids Continue blood pressure control with Norvasc continue supplemental oxygen 4 L nasal cannula, patient declined its use the BiPAP machine ID service following and adjusting antibiotics currently on Zosyn and vancomycin along with antifungal agent with very [place] Continue wound care Increase activity as tolerated
[2024-04-01 11:09] LABS: Glucose,Whole Blood 312 mg/dL (70-110)
[2024-04-01] MEDS: LORazepam 2 MG/ML INJ IV PRN (12:05)
--- NOTE | 2024-04-01 12:46 | P.PN ---
Subjective Progress Note Date: 04/01/24 64-year-old female patient, known to us, the patient was treated in the hospital when she had a prolonged hospitalization from 01/30/2024 and she was discharged on 03/24/2024 to be readmitted to hospital on 03/29/2024 with worsening shortness of breath and respiratory failure. The patient was seen in emergency department. The patient is a significant respiratory distress and the patient is currently on a BiPAP at a pressure of 12 over 5 cm of water and FiO2 of 50%. Her current respiratory rate is in the low 30s. Blood pressure is stable. The patient is extremely lethargic, weak, has chronic wounds in her lower extremities bilaterally, has an indwelling Horn catheter which was present at the [facility] she has not she is nonambulatory status in right foot is extremely cloudy with significant amount of debris's and some purulence. Chest x-ray was emergency department and it shows an extensive area of consolidation involving the left lung along with some small bilateral pleural effusions and background COPD. The patient was given Zithromax and Zosyn. ICU consultation was requested This patient is known to have advanced COPD. During her last hospitalization, the patient was in acute hypoxic respiratory failure requiring intubation mechanical ventilation and he was ultimately extubated on 03/17/2024. During the course of her illness, she was bronchoscope and the sputum sample on 03/13/2024 and 03/14/2024 was positive for haemophilus influenza and she was treated accordingly. She was also diagnosed having a right upper lobe pulmonary embolism treated with anticoagulation with Eliquis. During the course of her illness, the patient had systemic candidemia and the blood cultures was on 02/11/2024 was positive for Sarah albicans and the bronchial washings also showed Sarah glabrata. Urine culture was also positive for Sarah. The patient was given IV Diflucan and she completed the course of antifungal treatment. Her echocardiogram showed no evidence of any vegetation and her left-ventricular ejection fraction was essentially within normal limits. Infection and a hyperdynamic heart with an EF of around 70 to 75%. No significant valvular abnormalities. Her current labs show a white cell count of 22.3 which has been elevated since her discharge from the hospital, hemoglobin 11.7 and platelet count is 407, serum bicarbonate 30 and sodium levels of 134, BUN is 22 with a creatinine of 0.25. LFTs are within normal limits. Most recent procalcitonin level from 03/24/2024 was at 0.08. Blood cultures have been sent. On 03/30/2024, the patient was taken off the BiPAP and the patient has been transitioned to oxygen at 3 L/min nasal cannula. No new complaints. Chest x- ray findings are essentially unchanged. The patient has stable right basilar and left midlung consolidation and bilateral pleural effusions. Nevertheless, she seems to be much more comfortable. She continues to have a congested cough and she is on a broad-spectrum antibiotics and the patient is currently on a combination of cefepime, vancomycin and voriconazole. Awaiting follow-up cu ltures on this patient. The white cell count is down to 18 with a hemoglobin 10.3 and a platelet count of 350. Electrolytes are stable with a BUN of 25 and a creatinine of 0.2. Procalcitonin level is at 0.57. She is weak yet awake and alert. Communicating. She has chronic wounds in lower extremities and some ongoing +1 edema lower extremities bilaterally. Moving all 4 extremities other than limitation. No altered mentation at this point in time. On 03/31/2024, the patient is stable. The patient remains on 40 Suboxone by nasal cannula. The patient does receive with IV Lasix and she is in a negative fluid balance of 1.8 L over the past 24 hours. Meanwhile, chest x-ray from today show s stable bilateral pulm infiltrates. The patient remains on the same antibiotic coverage includes cefepime, vancomycin and voriconazole. Blood cultures are still negative. The white cell count of 19 with a hemoglobin 10.7 and platelet count of 383. BUN is 23 with a creatinine 0.3. Sodium level is at 137. The patient continues to have wound care to lower extremities. Awake and alert and communicating. Remains on bronchodilators. Remains on steroids. Remains on Levemir insulin for blood sugar control at 15 units at bedtime and a sliding scale coverage. No other significant events overnight. The patient is being seen for a follow-up. The patient is doing well. No specific complaints. Continues to diurese. Blood cultures are negative the patient remains on the same antibiotic coverage. The white cell count from today is at 23 with a hemoglobin of 10 and a platelet count of 334. Electrolytes are all stable with a BUN of 19 and a creatinine of 0.3. Sodium levels at 141. No other significant events overnight. She is currently on oxygen at 4 L/min nasal cannula. Objective - Vital Signs Vital signs: Vital Signs Temp 98.0 F 04/01/24 07:36 Pulse 92 04/01/24 08:38 Resp 18 04/01/24 07:36 BP 144/87 04/01/24 07:36 Pulse Ox 95 04/01/24 08:21 FiO2 50 03/30/24 08:00 Intake & Output 03/31/24 04/01/24 04/01/24 18:59 06:59 18:59 Output Total 1800 1900 Balance -1800 -1900 Weight 67.8 kg Output: Urine 1800 1900 Other: Voiding Method Indwelling Catheter Indwelling Catheter # Bowel Movements 1 1 1 - Exam GENERAL EXAM: Reveals a 64-year-old female, communicating, arousable, currently on 3 L of oxygen by nasal cannula the patient was taken off the BiPAP. HEAD: Normocephalic and atraumatic EYES: Normal reaction of pupils, equal size. NOSE: Clear with pink turbinates. THROAT: No erythema or exudates. NECK: No masses, no JVD. CHEST: No chest wall deformity. LUNGS: Diminished breath sounds at the bases no crackles rhonchi or wheezes, scattered rhonchi and crackles specially in left lung base. CVS: Distant S1-S2, no S3 gallop, no murmur. ABDOMEN: Soft nontender no megaly no rebound no guarding. Bowel sounds. SKIN: Decubitus unstageable pressure injury. Bilateral lower extremity wounds. Multiple superficial ulcerations noted in both lower extremities. No active drainage. The wound bases are essentially clean at this point and most of the wounds are present over the chavez bilaterally and various sizes and shapes. Pulses in lower extremities present. There are some edema in her ankles ibeth aterally and some edema in the upper extremities bilaterally. CENTRAL NERVOUS SYSTEM: Alert and oriented x 3, no gross focal neurologic deficit, lethargic is arousable and she is following commands and moving all 4 extremities other than limitation. Generalized muscle weakness in all 4 extremities. EXTREMITIES: Bipedal edema with multiple superficial skin lesions/ulcerations noted bilaterally - Labs CBC & Chem 7: 04/01/24 06:12 04/01/24 06:12 Labs: Abnormal Lab Results - Last 24 Hours (Table) 03/31/24 03/31/24 03/31/24 Range/Units 12:12 16:27 20:35 WBC (4.50-10.00) X 10*3/uL RBC (4.10-5.20) X 10*6/uL Hgb (12.0-15.0) g/dL Hct (37.2-46.3) % RDW (11.5-14.5) % Immature Gran # (0.00-0.04) X 10*3/uL Neutrophils # (1.80-7.70) X 10*3/uL Lymphocytes # (0.90-5.00) X 10*3/uL Eosinophils # (0.04-0.35) X 10*3/uL NRBC/100 WBC Diff (0.00-0.01) X 10*3/uL Potassium (3.5-5.5) mmol/L Creatinine (0.6-1.5) mg/dL BUN/Creatinine Ratio (12.00-20.00) Ratio Glucose (70-110) mg/dL POC Glucose (mg/dL) 250 H 280 H 272 H (70-110) mg/dL Calcium (8.7-10.3) mg/dL 04/01/24 04/01/24 04/01/24 Range/Units 06:12 06:12 06:17 WBC 23.26 H (4.50-10.00) X 10*3/uL RBC 3.21 L (4.10-5.20) X 10*6/uL Hgb 10.0 L (12.0-15.0) g/dL Hct 30.8 L (37.2-46.3) % RDW 16.0 H (11.5-14.5) % Immature Gran # 0.10 H (0.00-0.04) X 10*3/uL Neutrophils # 22.73 H (1.80-7.70) X 10*3/uL Lymphocytes # 0.09 L (0.90-5.00) X 10*3/uL Eosinophils # 0 L (0.04-0.35) X 10*3/uL NRBC/100 WBC Diff 0.03 H (0.00-0.01) X 10*3/uL Potassium 3.1 L (3.5-5.5) mmol/L Creatinine 0.3 L (0.6-1.5) mg/dL BUN/Creatinine Ratio 65.33 H (12.00-20.00) Ratio Glucose 168 H (70-110) mg/dL POC Glucose (mg/dL) 182 H (70-110) mg/dL Calcium 8.0 L (8.7-10.3) mg/dL Microbiology - Last 24 Hours (Table) 03/29/24 08:28 Blood Culture - Preliminary Blood 03/29/24 08:05 Blood Culture - Preliminary Blood Assessment and Plan Plan: Acute hypoxic respiratory failure requiring intubation and mechanical ventilation, secondary to acute multifocal pneumonia, the patient developed new infiltration of the lungs more extensive on the left, consider the possibility of healthcare associated pneumonia. The patient is improved and more stable compared to yesterday. Remains on the same antibiotic coverage. Chest x-ray findings are stable. Procalcitonin level is mildly elevated. Cultures are still pending for now. The patient is currently on 4 L of oxygen by nasal cannula. Patient is currently off the BiPAP. Responding well to diuretics. Chest x-ray findings are showing stable bilateral pulmonary consolidation left more than right. Previous history of multifocal pneumonia, secondary to Haemophilus influenzae, diagnosed via bronchoscopy and BAL COPD Known history of a right upper lobe pulmonary embolism as noted on CT angiogram of the chest on admission, presently on Eliquis History of systemic candidemia, completed a course of Diflucan. The patient was also being given voriconazole on outpatient basis. Most recent positive blood culture was done 02/11/2024. The patient also had Sarah in her urine on 01/29/2024) and Sarah glabrata in the sputum on 03/14/2024. Chronic urinary retention with indwelling Horn catheter, rule out recurrent infection History of constipation status post decompressive sigmoidoscopy during her previous hospitalization Type 2 diabetes, maintained on insulin Benign essential hypertension Dyslipidemia Severe protein calorie malnutrition Chronic decubitus pressure ulcer and multiple skin ulcerations involving both lower extremities. Plan: Clinically stable Patient is currently on 4 L of oxygen by nasal cannula Blood cultures are negative Reviewed the CAT scan of the chest and the patient has bilateral pulmonary c onsolidation and bilateral pleural effusions. Continue n diuretics with Lasix 40 mg IV every 12 hours. Repeat blood cultures and sputum cultures and results are still pending for now. White cell count remains somewhat elevated. Consult infectious disease is appreciated. check procalcitonin level mildly elevated. Cover the patient with a combination of Zosyn and vancomycin and add the voriconazole for now Continue anticoagulation with Eliquis Wound care to lower extremities and the patient will be given Santyl Provide this patient with soft diet. Resume home medications IV fluids to KVO Repeat chest x-ray in the morning and will continue to follow
--- NOTE | 2024-04-01 15:21 | P.PN ---
Subjective Progress Note Date: 04/01/24 Principal diagnosis: Reason for follow-up is pneumonia Patient is a 54-year-old female with a past medical history significant for diabetes mellitus hypertension hyperlipidemia PE COPD had recent admission to the hospital treated for pneumonia sputum was positive for H aemophilus influenzae received [facility] and [facility] brought back to the hospital worsening respiratory status and concern for possible pneumonia requiring admission in the ICU. On today's evaluation that is 04/01/2024, Patient is afebrile patient is currently on 4 L current oxygen and denies having any shortness of breath, the patient denies any chest pain and no worsening cough extremities to be dry in nature, the patient denies any nausea vomiting did not have any abdominal pain and no diarrhea. White count 23.26 creatinine 0.3 Objective - Vital Signs Vital signs: Vital Signs Temp 98.0 F 04/01/24 07:36 Pulse 92 04/01/24 08:38 Resp 18 04/01/24 07:36 BP 144/87 04/01/24 07:36 Pulse Ox 95 04/01/24 08:21 FiO2 50 03/30/24 08:00 Intake & Output 03/31/24 04/01/24 04/01/24 18:59 06:59 18:59 Output Total 1800 1900 Balance -1800 -1900 Weight 67.8 kg Output: Urine 1800 1900 Other: Voiding Method Indwelling Catheter Indwelling Catheter # Bowel Movements 1 1 1 - Exam GENERAL DESCRIPTION: Middle-age female lying in bed in no distress RESPIRATORY SYSTEM: Unlabored breathing , decreased breath sounds at bases HEART: S1 S2 regular rate and rhythm , ABDOMEN: Soft , no tenderness EXTREMITIES: No edema feet - Labs CBC & Chem 7: 04/01/24 06:12 04/01/24 06:12 Labs: Abnormal Lab Results - Last 24 Hours (Table) 03/31/24 03/31/24 03/31/24 Range/Units 12:12 16:27 20:35 WBC (4.50-10.00) X 10*3/uL RBC (4.10-5.20) X 10*6/uL Hgb (12.0-15.0) g/dL Hct (37.2-46.3) % RDW (11.5-14.5) % Immature Gran # (0.00-0.04) X 10*3/uL Neutrophils # (1.80-7.70) X 10*3/uL Lymphocytes # (0.90-5.00) X 10*3/uL Eosinophils # (0.04-0.35) X 10*3/uL NRBC/100 WBC Diff (0.00-0.01) X 10*3/uL Potassium (3.5-5.5) mmol/L Creatinine (0.6-1.5) mg/dL BUN/Creatinine Ratio (12.00-20.00) Ratio Glucose (70-110) mg/dL POC Glucose (mg/dL) 250 H 280 H 272 H (70-110) mg/dL Calcium (8.7-10.3) mg/dL 04/01/24 04/01/24 04/01/24 Range/Units 06:12 06:12 06:17 WBC 23.26 H (4.50-10.00) X 10*3/uL RBC 3.21 L (4.10-5.20) X 10*6/uL Hgb 10.0 L (12.0-15.0) g/dL Hct 30.8 L (37.2-46.3) % RDW 16.0 H (11.5-14.5) % Immature Gran # 0.10 H (0.00-0.04) X 10*3/uL Neutrophils # 22.73 H (1.80-7.70) X 10*3/uL Lymphocytes # 0.09 L (0.90-5.00) X 10*3/uL Eosinophils # 0 L (0.04-0.35) X 10*3/uL NRBC/100 WBC Diff 0.03 H (0.00-0.01) X 10*3/uL Potassium 3.1 L (3.5-5.5) mmol/L Creatinine 0.3 L (0.6-1.5) mg/dL BUN/Creatinine Ratio 65.33 H (12.00-20.00) Ratio Glucose 168 H (70-110) mg/dL POC Glucose (mg/dL) 182 H (70-110) mg/dL Calcium 8.0 L (8.7-10.3) mg/dL 04/01/24 Range/Units 11:07 WBC (4.50-10.00) X 10*3/uL RBC (4.10-5.20) X 10*6/uL Hgb (12.0-15.0) g/dL Hct (37.2-46.3) % RDW (11.5-14.5) % Immature Gran # (0.00-0.04) X 10*3/uL Neutrophils # (1.80-7.70) X 10*3/uL Lymphocytes # (0.90-5.00) X 10*3/uL Eosinophils # (0.04-0.35) X 10*3/uL NRBC/100 WBC Diff (0.00-0.01) X 10*3/uL Potassium (3.5-5.5) mmol/L Creatinine (0.6-1.5) mg/dL BUN/Creatinine Ratio (12.00-20.00) Ratio Glucose (70-110) mg/dL POC Glucose (mg/dL) 312 H (70-110) mg/dL Calcium (8.7-10.3) mg/dL Microbiology - Last 24 Hours (Table) 03/29/24 08:28 Blood Culture - Preliminary Blood 03/29/24 08:05 Blood Culture - Preliminary Blood Assessment and Plan (1) Leukocytosis Current Visit: Yes Status: Acute Code(s): D72.829 - ELEVATED WHITE BLOOD CELL COUNT, UNSPECIFIED SNOMED Code(s): 491741169 (2) Pneumonia Current Visit: Yes Status: Acute Code(s): J18.9 - PNEUMONIA, UNSPECIFIED ORGANISM SNOMED Code(s): 931726302 Plan: 1patient was in the hospital with sepsis in this patient who did have a leukocytosis tachycardia hypoxemia admitted currently for SIRS/sepsis source likely pneumonia concern for possible gram-negative versus gram-positive recently treated for Haemophilus influenzae pneumonia 2-sputum has not been collected blood culture remains to be negative, urine for Legionella antigen currently pending procalcitonin was mildly elevated 0.57 3-patient to continue with the vancomycin and cefepime along with voriconazole, leukocytosis more likely steroid related as no evidence of any worsening infection Dictation was produced using [employer] dictation software. please excuse any grammatical, word or spelling errors. Time with Patient: Less than 30
[2024-04-01 15:37] LABS: Glucose,Whole Blood 473 mg/dL (70-110)
[2024-04-01] MEDS: POTASSIUM CHLORIDE 20 MEQ in WATER FOR INJECTION 1 100ML.BAG IVPB SCH (16:15)
[2024-04-01 16:59] LABS: Glucose,Whole Blood 461 mg/dL (70-110)
[2024-04-01 21:02] LABS: Glucose,Whole Blood 401 mg/dL (70-110)
[2024-04-01] MEDS: INSULIN ASPART (NovoLOG) 100 UNIT/ML VIAL SQ SCH (21:34)
[2024-04-02] MEDS: VANCOMYCIN TROUGH DUE 1 EACH MISC MISCELLANE ONE (06:01)
[2024-04-02 06:21] LABS: Glucose,Whole Blood 111 mg/dL (70-110)
[2024-04-02] MEDS ORDERED: INSULIN ASPART (NovoLOG) 100 UNIT/ML VIAL SQ SCH (07:30)
[2024-04-02 11:49] LABS: Glucose,Whole Blood 115 mg/dL (70-110)
--- NOTE | 2024-04-02 12:50 | P.PN ---
Subjective Progress Note Date: 04/02/24 64-year-old female patient, known to us, the patient was treated in the hospital when she had a prolonged hospitalization from 01/30/2024 and she was discharged on 03/24/2024 to be readmitted to hospital on 03/29/2024 with worsening shortness of breath and respiratory failure. The patient was seen in emergency department. The patient is a significant respiratory distress and the patient is currently on a BiPAP at a pressure of 12 over 5 cm of water and FiO2 of 50%. Her current respiratory rate is in the low 30s. Blood pressure is stable. The patient is extremely lethargic, weak, has chronic wounds in her lower extremities bilaterally, has an indwelling Horn catheter which was present at the senior care she has not she is nonambulatory status in right foot is extremely cloudy with significant amount of debris's and some purulence. Chest x-ray was emergency department and it shows an extensive area of consolidation involving the left lung along with some small bilateral pleural effusions and background COPD. The patient was given Zithromax and Zosyn. ICU consultation was requested This patient is known to have advanced COPD. During her last hospitalization, the patient was in acute hypoxic respiratory failure requiring intubation mechanical ventilation and he was ultimately extubated on 03/17/2024. During the course of her illness, she was bronchoscope and the sputum sample on 03/13/2024 and 03/14/2024 was positive for haemophilus influenza and she was treated accordingly. She was also diagnosed having a right upper lobe pulmonary embolism treated with anticoagulation with Eliquis. During the course of her illness, the patient had systemic candidemia and the blood cultures was on 02/11/2024 was positive for Sarah albicans and the bronchial washings also showed Sarah glabrata. Urine culture was also positive for Sarah. The patient was given IV Diflucan and she completed the course of antifungal treatment. Her echocardiogram showed no evidence of any vegetation and her left-ventricular ejection fraction was essentially within normal limits. Infection and a hyperdynamic heart with an EF of around 70 to 75%. No significant valvular abnormalities. Her current labs show a white cell count of 22.3 which has been elevated since her discharge from the hospital, hemoglobin 11.7 and platelet count is 407, serum bicarbonate 30 and sodium levels of 134, BUN is 22 with a creatinine of 0.25. LFTs are within normal limits. Most recent procalcitonin level from 03/24/2024 was at 0.08. Blood cultures have been sent. On 03/30/2024, the patient was taken off the BiPAP and the patient has been transitioned to oxygen at 3 L/min nasal cannula. No new complaints. Chest x- ray findings are essentially unchanged. The patient has stable right basilar and left midlung consolidation and bilateral pleural effusions. Nevertheless, she seems to be much more comfortable. She continues to have a congested cough and she is on a broad-spectrum antibiotics and the patient is currently on a combination of cefepime, vancomycin and voriconazole. Awaiting follow-up cu ltures on this patient. The white cell count is down to 18 with a hemoglobin 10.3 and a platelet count of 350. Electrolytes are stable with a BUN of 25 and a creatinine of 0.2. Procalcitonin level is at 0.57. She is weak yet awake and alert. Communicating. She has chronic wounds in lower extremities and some ongoing +1 edema lower extremities bilaterally. Moving all 4 extremities other than limitation. No altered mentation at this point in time. On 03/31/2024, the patient is stable. The patient remains on 40 Suboxone by nasal cannula. The patient does receive with IV Lasix and she is in a negative fluid balance of 1.8 L over the past 24 hours. Meanwhile, chest x-ray from today show s stable bilateral pulm infiltrates. The patient remains on the same antibiotic coverage includes cefepime, vancomycin and voriconazole. Blood cultures are still negative. The white cell count of 19 with a hemoglobin 10.7 and platelet count of 383. BUN is 23 with a creatinine 0.3. Sodium level is at 137. The patient continues to have wound care to lower extremities. Awake and alert and communicating. Remains on bronchodilators. Remains on steroids. Remains on Levemir insulin for blood sugar control at 15 units at bedtime and a sliding scale coverage. No other significant events overnight. The patient is being seen for a follow-up. The patient is doing well. No specific complaints. Continues to diurese. Blood cultures are negative the patient remains on the same antibiotic coverage. The white cell count from today is at 23 with a hemoglobin of 10 and a platelet count of 334. Electrolytes are all stable with a BUN of 19 and a creatinine of 0.3. Sodium levels at 141. No other significant events overnight. She is currently on oxygen at 4 L/min nasal cannula. 04/02/2024, the patient is doing well. She continues B12 with Lasix and the patient is -2.9 L over the past 24 hours. Edema is improving. Meanwhile, repeat chest x-ray was done and the pulmonary findings are essentially stable. The white cell count from yesterday was 23 and awaiting follow-up labs from t [facility]. Renal function is also stable from yesterday. The patient remains on IV Lasix. The patient remains on cefepime vancomycin and voriconazole. Cultures are negative thus far. No interval worsening shortness of breath. No new findings or new complaints for now. She remains stable on 4 L of oxygen by nasal cannula. Objective - Vital Signs Vital signs: Vital Signs Temp 98.2 F 04/02/24 06:57 Pulse 92 04/02/24 08:38 Resp 16 04/02/24 06:57 BP 133/81 04/02/24 06:57 Pulse Ox 95 04/02/24 06:57 FiO2 50 04/01/24 19:17 Intake & Output 04/01/24 04/02/24 04/02/24 18:59 06:59 18:59 Output Total 450 2500 Balance -450 -2500 Output: Urine 450 2500 Other: Voiding Method Indwelling Catheter Indwelling Catheter # Bowel Movements 1 1 - Exam GENERAL EXAM: Reveals a 64-year-old female, communicating, arousable, currently on 3 L of oxygen by nasal cannula the patient was taken off the BiPAP. HEAD: Normocephalic and atraumatic EYES: Normal reaction of pupils, equal size. NOSE: Clear with pink turbinates. THROAT: No erythema or exudates. NECK: No masses, no JVD. CHEST: No chest wall deformity. LUNGS: Diminished breath sounds at the bases no crackles rhonchi or wheezes, scattered rhonchi and crackles specially in left lung base. CVS: Distant S1-S2, no S3 gallop, no murmur. ABDOMEN: Soft nontender no megaly no rebound no guarding. Bowel sounds. SKIN: Decubitus unstageable pressure injury. Bilateral lower extremity wounds. Multiple superficial ulcerations noted in both lower extremities. No active drainage. The wound bases are essentially clean at this point and most of the wounds are present over the chavez bilaterally and various sizes and shapes. Pulses in lower extremities present. There are some edema in her ankles bilaterally and some edema in the upper extremities bilaterally. CENTRAL NERVOUS SYSTEM: Alert and oriented x 3, no gross focal neurologic deficit, lethargic is arousable and she is following commands and moving all 4 extremities other than limitation. Generalized muscle weakness in all 4 ex tremities. EXTREMITIES: Bipedal edema with multiple superficial skin lesions/ulcerations noted bilaterally - Labs CBC & Chem 7: 04/01/24 06:12 04/01/24 06:12 Labs: Abnormal Lab Results - Last 24 Hours (Table) 04/01/24 04/01/24 04/01/24 Range/Units 06:17 11:07 15:35 POC Glucose (mg/dL) 312 H 473 H (70-110) mg/dL Vancomycin Trough 21.5 H (10.0-20.0) UG/ML 04/01/24 04/01/24 04/02/24 Range/Units 16:55 20:59 06:20 POC Glucose (mg/dL) 461 H 401 H 111 H (70-110) mg/dL Vancomycin Trough (10.0-20.0) UG/ML Microbiology - Last 24 Hours (Table) 03/29/24 08:28 Blood Culture - Preliminary Blood 03/29/24 08:05 Blood Culture - Preliminary Blood 03/30/24 13:00 Nasal Screen MRSA/MSSA - Final Nasopharyngeal Swab Assessment and Plan Plan: Acute hypoxic respiratory failure requiring intubation and mechanical ventilation, secondary to acute multifocal pneumonia, the patient developed new infiltration of the lungs more extensive on the left, consider the possibility of healthcare associated pneumonia. The patient is improved and more stable compared to yesterday. Remains on the same antibiotic coverage. Chest x-ray findings are stable. Procalcitonin level is mildly elevated. Cultures are still pending for now. The patient is currently on 4 L of oxygen by nasal cannula. Patient is currently off the BiPAP. Responding well to diuretics. Chest x-ray findings are showing stable bilateral pulmonary consolidation left more than right. Previous history of multifocal pneumonia, secondary to Haemophilus influenzae, diagnosed via bronchoscopy and BAL COPD Known history of a right upper lobe pulmonary embolism as noted on CT angiogram of the chest on admission, presently on Eliquis History of systemic candidemia, completed a course of Diflucan. The patient was also being given voriconazole on outpatient basis. Most recent positive blood culture was done 02/11/2024. The patient also had Sarah in her urine on 01/29/2024) and Sarah glabrata in the sputum on 03/14/2024. Chronic urinary retention with indwelling Horn catheter, rule out recurrent infection History of constipation status post decompressive sigmoidoscopy during her previous hospitalization Type 2 diabetes, maintained on insulin Benign essential hypertension Dyslipidemia Severe protein calorie malnutrition Chronic decubitus pressure ulcer and multiple skin ulcerations involving both lower extremities. Plan: Clinically stable Chest x-ray findings are stable with stable consolidation bilaterally. Patient is currently on 4 L of oxygen by nasal cannula Blood cultures are negative Reviewed the CAT scan of the chest and the patient has bilateral pulmonary consolidation and bilateral pleural effusions. Continue diuretics and switch this patient to oral Lasix. Awaiting labs from today Repeat cultures are negative. Consult infectious disease is appreciated. check procalcitonin level mildly elevated. Cover the patient with a combination of Zosyn and vancomycin and voriconazole for now Continue anticoagulation with Eliquis Wound care to lower extremities and the patient will be given Santyl Provide this patient with soft diet. Resume home medications IV fluids to KVO
--- NOTE | 2024-04-02 15:20 | P.PN ---
Subjective Progress Note Date: 04/02/24 Principal diagnosis: Reason for follow-up is pneumonia Patient is a 54-year-old female with a past medical history significant for diabetes mellitus hypertension hyperlipidemia PE COPD had recent admission to the hospital treated for pneumonia sputum was positive for H aemophilus influenzae received IV and oral antibioticssent to the longterm brought back to the hospital worsening respiratory status and concern for possible pneumonia requiring admission in the ICU. On today's evaluation that is 04/02/2024, patient has been afebrile, patient is breathing comfortably and is currently on 4 L current oxygen, patient denies having any worsening cough and no sputum production no chest pain shortness of breath, patient denies nausea vomiting no abdominal pain and having regular bowel movements as the patient has been on lactulose. No labs were drawn today except Vanco trough of 15.4 patient nasal screen MRSA has been negative Objective - Vital Signs Vital signs: Vital Signs Temp 98.4 F 04/02/24 14:21 Pulse 100 04/02/24 14:21 Resp 18 04/02/24 14:21 BP 126/69 04/02/24 14:21 Pulse Ox 96 04/02/24 14:21 FiO2 50 04/01/24 19:17 Intake & Output 04/01/24 04/02/24 04/02/24 18:59 06:59 18:59 Output Total 450 2500 Balance -450 -2500 Output: Urine 450 2500 Other: Voiding Method Indwelling Catheter Indwelling Catheter Indwelling Catheter # Bowel Movements 1 1 - Exam GENERAL DESCRIPTION: Middle-age female lying in bed in no distress RESPIRATORY SYSTEM: Unlabored breathing , decreased breath sounds at bases HEART: S1 S2 regular rate and rhythm , ABDOMEN: Soft , no tenderness EXTREMITIES: No edema feet - Labs CBC & Chem 7: 04/01/24 06:12 04/01/24 06:12 Labs: Abnormal Lab Results - Last 24 Hours (Table) 04/01/24 04/01/24 04/01/24 Range/Units 15:35 16:55 20:59 POC Glucose (mg/dL) 473 H 461 H 401 H (70-110) mg/dL 04/02/24 04/02/24 Range/Units 06:20 11:48 POC Glucose (mg/dL) 111 H 115 H (70-110) mg/dL Microbiology - Last 24 Hours (Table) 03/29/24 08:28 Blood Culture - Preliminary Blood 03/29/24 08:05 Blood Culture - Preliminary Blood 03/30/24 13:00 Nasal Screen MRSA/MSSA - Final Nasopharyngeal Swab Assessment and Plan (1) Leukocytosis Current Visit: Yes Status: Acute Code(s): D72.829 - ELEVATED WHITE BLOOD CELL COUNT, UNSPECIFIED SNOMED Code(s): 143500064 (2) Pneumonia Current Visit: Yes Status: Acute Code(s): J18.9 - PNEUMONIA, UNSPECIFIED ORGANISM SNOMED Code(s): 980943191 Plan: 1patient was in the hospital with sepsis in this patient who did have a leukocytosis tachycardia hypoxemia admitted currently for SIRS/sepsis source likely pneumonia concern for possible gram-negative versus gram-positive recently treated for Haemophilus influenzae pneumonia 2-sputum has not been collected blood culture remains to be negative, urine for Legionella antigen currently pending procalcitonin was mildly elevated 0.57 on the patient nasal screen MRSA has been negative 3-patient to continue with the cefepime however will discontinue vancomycin with a negative MRSA nasal screen Dictation was produced using [employer] dictation software. please excuse any grammatical, word or spelling errors. Time with Patient: Less than 30
--- NOTE | 2024-04-02 16:21 | XR ---
EXAMINATION TYPE: XR chest 1V DATE OF EXAM: 04/02/2024 5:19 AM CLINICAL INDICATION:Female, 64 years old with history of FU pneumonia; [facility] COMPARISON: 03/31/2024 and before TECHNIQUE: XR chest 1V Portable AP radiograph of the chest.. FINDINGS: Lines/Tubes/Devices: No indwelling lines are seen. There appears to be a coronary stent on the left. Heart/mediastinum: Heart appears mildly enlarged. Aorta again appears mildly tortuous and partially calcified. Pulmonary vascularity: Mildly increased. Lungs/Pleura: Left perihilar opacity appears worsened with some greater cranial involvement, and greater caudal inv olvement with left basilar opacity partially obscuring the hemidiaphragm. Possible trace pleural effu ulisses. Patchy airspace disease in the right mid and lower lung has developed. No visualized pneumothor ax. Musculoskeletal: No acute osseous abnormality demonstrated in the limits of the exam. Degenerative c hanges of the spine and shoulders. Other findings: None. IMPRESSION: Increased airspace opacities bilaterally, likely worsening multifocal pneumonia.
[2024-04-02 16:59] LABS: Glucose,Whole Blood 300 mg/dL (70-110)
[2024-04-02 20:54] LABS: Glucose,Whole Blood 285 mg/dL (70-110)
--- NOTE | 2024-04-03 02:44 | PN ---
PROGRESS NOTE SUBJECTIVE: This is a 64-year-old white female, history of COPD, pulmonary hypertension. She has acute hypoxemic respiratory failure, COPD, healthcare-associated pneumonia, pulmonary embolism, systemic candidemia, chronic constipation, chronic urinary retention, type 2 diabetes mellitus, cardiovascular disease, severe protein-calorie nutrition, chronic diabetes, ulcer. OBJECTIVE: VITAL SIGNS: Temperature 98, blood pressure 144/87, O2 95 on 50% oxygen, respiratory rate 16 to 18. HEENT: Normocephalic, atraumatic. LUNGS: Scattered wheeze and rhonchi. HEART: S1, S2. GI: Soft, nontender. INTEGUMENT: Normal skin turgor. NEUROLOGIC: Cranial nerves intact. MUSCULOSKELETAL: No weakness. PSYCH: Fair mood and affect. LABORATORY DATA: White count 23.26, hemoglobin is 10, potassium 3.1, sodium 141. IMPRESSION: Acute on chronic hypoxemic respiratory failure, COPD, healthcare associated pneumonia, pulmonary embolism, systemic candidemia, chronic constipation, chronic urinary infection, type 2 diabetes mellitus, hypertensive cardiovascular disease, severe protein-calorie malnutrition, chronic decubitus ulcer. She is on anticoagulation, bronchodilators, blood pressure control. She needs to wear her oxygen and at night till she gets a BiPAP machine. Continue NovoLog, Levemir, and [place]. Prognosis guarded. Follow up in next 24 to 48 hours. Prognosis guarded. MMODL / IJN: [id number] /
[2024-04-03 04:21] LABS: Anisocytosis Slight; Basophils % (A) 0 %; Eosinophils # (A) 0.1 k/uL (0-0.7); Eosinophils % (A) 1 %; HCT 32.3 % (34.0-46.0); HGB 10.5 gm/dL (11.4-16.0); Hypochromasia Slight; Lymphocytes # (A) 0.3 k/uL (1.0-4.8); Lymphocytes % (A) 2 %; MCH 31.5 pg (25.0-35.0); MCHC 32.5 g/dL (31.0-37.0); MCV 96.9 fL (80.0-100.0); Mean Platelet Volume 7.8; Monocytes # (A) 0.3 k/uL (0-1.0); Monocytes % (A) 2 %; Neutrophils % (A) 94 %; Platelet Count 274 k/uL (150-450); Poikilocytosis Slight; RBC 3.34 m/uL (3.80-5.40); RDW 16.3 % (11.5-15.5); WBC 12.7 k/uL (3.8-10.6)
[2024-04-03 04:53] LABS: ALT 20 U/L (4-34); African American GFR (CKD) >90 (>60 ml/min/1.73 sqM); Albumin/Globulin Ratio 0.9; Anion Gap 0 mmol/L; Blood Urea Nitrogen 23 mg/dL (7-17); Calcium 7.9 mg/dL (8.4-10.2); Carbon Dioxide 30 mmol/L (22-30); Chloride 106 mmol/L (98-107); Globulin 2.3 g/dL; Glucose 84 mg/dL (74-99); Non-African American GFR(CKD) >90 (>60 ml/min/1.73 sqM); Sodium 136 mmol/L (137-145); Total Bilirubin 0.3 mg/dL (0.2-1.3); Total Protein 4.3 g/dL (6.3-8.2)
[2024-04-03 05:22] LABS: AST 27 U/L (14-36); Alkaline Phosphatase 186 U/L (38-126); Potassium 2.7 mmol/L (3.5-5.1)
[2024-04-03] MEDS ORDERED: Potassium Replacement Protocol 1 EACH MISC MISCELLANE PRN (05:35)
[2024-04-03] MEDS: POTASSIUM CHLORIDE ER 20 MEQ TAB.ER PO SCH (05:55)
[2024-04-03 06:08] LABS: Glucose,Whole Blood 66 mg/dL (70-110)
[2024-04-03 06:36] LABS: Glucose,Whole Blood 89 mg/dL (70-110)
[2024-04-03] MEDS: FUROSEMIDE 40 MG TAB PO SCH (08:39)
[2024-04-03 12:09] LABS: Glucose,Whole Blood 328 mg/dL (70-110)
--- NOTE | 2024-04-03 12:20 | P.PN ---
Subjective Progress Note Date: 04/03/24 Principal diagnosis: Reason for follow-up is pneumonia Patient is a 54-year-old female with a past medical history significant for diabetes mellitus hypertension hyperlipidemia PE COPD had recent admission to the hospital treated for pneumonia sputum was positive for H aemophilus influenzae received [facility] and [facility] brought back to the hospital worsening respiratory status and concern for possible pneumonia requiring admission in the ICU. On today's evaluation that is 04/03/2024, Patient is afebrile this morning and denies any chills, patient mention breathing comfortably and is currently on 4 L nasal cannula oxygen patient denies any chest pain occasional cough patient denies any abdominal pain no diarrhea no nausea no vomiting. Patient white count is down to 12.7, creatinine 0.19 Objective - Vital Signs Vital signs: Vital Signs Temp 97.6 F 04/03/24 07:09 Pulse 84 04/03/24 09:49 Resp 18 04/03/24 07:09 BP 157/80 04/03/24 07:09 Pulse Ox 97 04/03/24 07:09 FiO2 50 04/03/24 01:06 Intake & Output 04/02/24 04/03/24 04/03/24 18:59 06:59 18:59 Output Total 2000 600 Balance -2000 -600 Output: Urine 2000 600 Other: Voiding Method Indwelling Catheter Indwelling Catheter # Bowel Movements 1 1 1 - Exam GENERAL DESCRIPTION: Middle-age female lying in bed in no distress RESPIRATORY SYSTEM: Unlabored breathing , decreased breath sounds at bases HEART: S1 S2 regular rate and rhythm , ABDOMEN: Soft , no tenderness EXTREMITIES: No edema feet - Labs CBC & Chem 7: 04/03/24 04:08 04/03/24 04:08 Labs: Abnormal Lab Results - Last 24 Hours (Table) 04/02/24 04/02/24 04/03/24 Range/Units 16:56 20:46 04:08 WBC (3.8-10.6) k/uL RBC (3.80-5.40) m/uL Hgb (11.4-16.0) gm/dL Hct (34.0-46.0) % RDW (11.5-15.5) % Neutrophils # (1.3-7.7) k/uL Lymphocytes # (1.0-4.8) k/uL Sodium 136 L (137-145) mmol/L Potassium 2.7 L* (3.5-5.1) mmol/L BUN 23 H (7-17) mg/dL Creatinine 0.19 L (0.52-1.04) mg/dL POC Glucose (mg/dL) 300 H 285 H (70-110) mg/dL Calcium 7.9 L (8.4-10.2) mg/dL Alkaline Phosphatase 186 H (38-126) U/L Total Protein 4.3 L (6.3-8.2) g/dL Albumin 2.0 L (3.5-5.0) g/dL 04/03/24 04/03/24 04/03/24 Range/Units 04:08 06:06 12:08 WBC 12.7 H (3.8-10.6) k/uL RBC 3.34 L (3.80-5.40) m/uL Hgb 10.5 L (11.4-16.0) gm/dL Hct 32.3 L (34.0-46.0) % RDW 16.3 H (11.5-15.5) % Neutrophils # 12.0 H (1.3-7.7) k/uL Lymphocytes # 0.3 L (1.0-4.8) k/uL Sodium (137-145) mmol/L Potassium (3.5-5.1) mmol/L BUN (7-17) mg/dL Creatinine (0.52-1.04) mg/dL POC Glucose (mg/dL) 66 L 328 H (70-110) mg/dL Calcium (8.4-10.2) mg/dL Alkaline Phosphatase (38-126) U/L Total Protein (6.3-8.2) g/dL Albumin (3.5-5.0) g/dL Assessment and Plan (1) Leukocytosis Current Visit: Yes Status: Acute Code(s): D72.829 - ELEVATED WHITE BLOOD CELL COUNT, UNSPECIFIED SNOMED Code(s): 556250953 (2) Pneumonia Current Visit: Yes Status: Acute Code(s): J18.9 - PNEUMONIA, UNSPECIFIED ORGANISM SNOMED Code(s): 935683247 Plan: 1patient was in the hospital with sepsis in this patient who did have a leukocytosis tachycardia hypoxemia admitted currently for SIRS/sepsis source likely pneumonia concern for possible gram-negative versus gram-positive recently treated for Haemophilus influenzae pneumonia 2 blood culture remains to be negative, urine for Legionella antigen currently pending procalcitonin was mildly elevated 0.57 on the patient nasal screen MRSA has been negative 3-patient remains to be afebrile and patient white count is trending down, to continue with the cefepime will transition to oral antibiotics on discharge Dictation was produced using [employer] dictation software. please excuse any gramm atical, word or spelling errors. Time with Patient: Less than 30
--- NOTE | 2024-04-03 14:42 | P.PN ---
Subjective Progress Note Date: 04/03/24 64-year-old female patient, known to us, the patient was treated in the hospital when she had a prolonged hospitalization from 01/30/2024 and she was discharged on 03/24/2024 to be readmitted to hospital on 03/29/2024 with worsening shortness of breath and respiratory failure. The patient was seen in emergency department. The patient is a significant respiratory distress and the patient is currently on a BiPAP at a pressure of 12 over 5 cm of water and FiO2 of 50%. Her current respiratory rate is in the low 30s. Blood pressure is stable. The patient is extremely lethargic, weak, has chronic wounds in her lower extremities bilaterally, has an indwelling Horn catheter which was present at the [facility] she has not she is nonambulatory status in right foot is extremely cloudy with significant amount of debris's and some purulence. Chest x-ray was emergency department and it shows an extensive area of consolidation involving the left lung along with some small bilateral pleural effusions and background COPD. The patient was given Zithromax and Zosyn. ICU consultation was requested This patient is known to have advanced COPD. During her last hospitalization, the patient was in acute hypoxic respiratory failure requiring intubation mechanical ventilation and he was ultimately extubated on 03/17/2024. During the course of her illness, she was bronchoscope and the sputum sample on 03/13/2024 and 03/14/2024 was positive for haemophilus influenza and she was treated accordingly. She was also diagnosed having a right upper lobe pulmonary embolism treated with anticoagulation with Eliquis. During the course of her illness, the patient had systemic candidemia and the blood cultures was on 02/11/2024 was positive for Sarah albicans and the bronchial washings also showed Sarah glabrata. Urine culture was also positive for Sarah. The patient was given IV Diflucan and she completed the course of antifungal treatment. Her echocardiogram showed no evidence of any vegetation and her left-ventricular ejection fraction was essentially within normal limits. Infection and a hyperdynamic heart with an EF of around 70 to 75%. No significant valvular abnormalities. Her current labs show a white cell count of 22.3 which has been elevated since her discharge from the hospital, hemoglobin 11.7 and platelet count is 407, serum bicarbonate 30 and sodium levels of 134, BUN is 22 with a creatinine of 0.25. LFTs are within normal limits. Most recent procalcitonin level from 03/24/2024 was at 0.08. Blood cultures have been sent. On 03/30/2024, the patient was taken off the BiPAP and the patient has been transitioned to oxygen at 3 L/min nasal cannula. No new complaints. Chest x- ray findings are essentially unchanged. The patient has stable right basilar and left midlung consolidation and bilateral pleural effusions. Nevertheless, she seems to be much more comfortable. She continues to have a congested cough and she is on a broad-spectrum antibiotics and the patient is currently on a combination of cefepime, vancomycin and voriconazole. Awaiting follow-up cul tures on this patient. The white cell count is down to 18 with a hemoglobin 10.3 and a platelet count of 350. Electrolytes are stable with a BUN of 25 and a creatinine of 0.2. Procalcitonin level is at 0.57. She is weak yet awake and alert. Communicating. She has chronic wounds in lower extremities and some ongoing +1 edema lower extremities bilaterally. Moving all 4 extremities other than limitation. No altered mentation at this point in time. On 03/31/2024, the patient is stable. The patient remains on 40 Suboxone by nasal cannula. The patient does receive with IV Lasix and she is in a negative fluid balance of 1.8 L over the past 24 hours. Meanwhile, chest x-ray from today shows stable bilateral pulm infiltrates. The patient remains on the same antibiotic coverage includes cefepime, vancomycin and voriconazole. Blood cultures are still negative. The white cell count of 19 with a hemoglobin 10.7 and platelet count of 383. BUN is 23 with a creatinine 0.3. Sodium level is at 137. The patient continues to have wound care to lower extremities. Awake and alert and communicating. Remains on bronchodilators. Remains on steroids. Remains on Levemir insulin for blood sugar control at 15 units at bedtime and a sliding scale coverage. No other significant events overnight. The patient is being seen for a follow-up. The patient is doing well. No specific complaints. Continues to diurese. Blood cultures are negative the patient remains on the same antibiotic coverage. The white cell count from today is at 23 with a hemoglobin of 10 and a platelet count of 334. Electrolytes are all stable with a BUN of 19 and a creatinine of 0.3. Sodium levels at 141. No other significant events overnight. She is currently on oxygen at 4 L/min nasal cannula. 04/02/2024, the patient is doing well. She continues B12 with Lasix and the patient is -2.9 L over the past 24 hours. Edema is improving. Meanwhile, repeat chest x-ray was done and the pulmonary findings are essentially stable. The white cell count from yesterday was 23 and awaiting follow-up labs from to day. Renal function is also stable from yesterday. The patient remains on IV Lasix. The patient remains on cefepime vancomycin and voriconazole. Cultures are negative thus far. No interval worsening shortness of breath. No new findings or new complaints for now. She remains stable on 4 L of oxygen by nasal cannula. The patient is seen today April 03, 2024 in follow-up on the regular medical floor. She is currently sitting up in bed. Awake and alert in no acute distress. She is maintaining O2 saturations in the 90s on 4 L/min per nasal cannula. She has been refusing BiPAP support at night. She has been refusing to get up out of bed. She does have a wound on her coccyx. She is having some issues with diarrhea. Chest x-ray reveals left perihilar and right lower lobe infiltrates. She remains on cefepime and voriconazole. She denies any shortness of breath, cough or congestion. No fever or chills. 7. Bicarb 30. BUN 23. Creatinine 0.19. Glucose 84. She is continued on inhalations, Pulmicort and Perforomist inhalations, Solu-Medrol. Objective - Vital Signs Vital signs: Vital Signs Temp 98.5 F 04/03/24 13:10 Pulse 102 H 04/03/24 13:10 Resp 18 04/03/24 13:10 BP 134/70 04/03/24 13:10 Pulse Ox 97 04/03/24 13:10 FiO2 50 04/03/24 01:06 Intake & Output 04/02/24 04/03/24 04/03/24 18:59 06:59 18:59 Output Total 2000 600 Balance -2000 -600 Output: Urine 2000 600 Other: Voiding Method Indwelling Catheter Indwelling Catheter # Bowel Movements 1 1 1 - Exam GENERAL EXAM: Reveals an awake, alert 64-year-old female, sitting up in bed, currently on 4 L of oxygen by nasal cannula. HEAD: Normocephalic and atraumatic EYES: Normal reaction of pupils, equal size. NOSE: Clear with pink turbinates. THROAT: No erythema or exudates. NECK: No masses, no JVD. CHEST: No chest wall deformity. LUNGS: Diminished breath sounds at the bases no crackles rhonchi or wheezes, scattered rhonchi and crackles specially in left lung base. CVS: Distant S1-S2, no S3 gallop, no murmur. ABDOMEN: Soft nontender no megaly no rebound no guarding. Bowel sounds. SKIN: Decubitus unstageable pressure injury. Bilateral lower extremity wounds. Multiple superficial ulcerations noted in both lower extremities. No active drainage. The wound bases are essentially clean at this point and most of the wounds are present over the chavez bilaterally and various sizes and shapes. Pulses in lower extremities present. There are some edema in her ankles bilaterally and some edema in the upper extremities bilaterally. CENTRAL NERVOUS SYSTEM: Alert and oriented x 3, no gross focal neurologic deficit, moving all 4 extremities other than limitation. Generalized muscle weakness in all 4 extremities. EXTREMITIES: Bipedal edema with multiple superficial skin lesions/ulcerations noted bilaterally - Labs CBC & Chem 7: 04/03/24 04:08 04/03/24 04:08 Labs: Abnormal Lab Results - Last 24 Hours (Table) 04/02/24 04/02/24 04/03/24 Range/Units 16:56 20:46 04:08 WBC (3.8-10.6) k/uL RBC (3.80-5.40) m/uL Hgb (11.4-16.0) gm/dL Hct (34.0-46.0) % RDW (11.5-15.5) % Neutrophils # (1.3-7.7) k/uL Lymphocytes # (1.0-4.8) k/uL Sodium 136 L (137-145) mmol/L Potassium 2.7 L* (3.5-5.1) mmol/L BUN 23 H (7-17) mg/dL Creatinine 0.19 L (0.52-1.04) mg/dL POC Glucose (mg/dL) 300 H 285 H (70-110) mg/dL Calcium 7.9 L (8.4-10.2) mg/dL Alkaline Phosphatase 186 H (38-126) U/L Total Protein 4.3 L (6.3-8.2) g/dL Albumin 2.0 L (3.5-5.0) g/dL 04/03/24 04/03/24 04/03/24 Range/Units 04:08 06:06 12:08 WBC 12.7 H (3.8-10.6) k/uL RBC 3.34 L (3.80-5.40) m/uL Hgb 10.5 L (11.4-16.0) gm/dL Hct 32.3 L (34.0-46.0) % RDW 16.3 H (11.5-15.5) % Neutrophils # 12.0 H (1.3-7.7) k/uL Lymphocytes # 0.3 L (1.0-4.8) k/uL Sodium (137-145) mmol/L Potassium (3.5-5.1) mmol/L BUN (7-17) mg/dL Creatinine (0.52-1.04) mg/dL POC Glucose (mg/dL) 66 L 328 H (70-110) mg/dL Calcium (8.4-10.2) mg/dL Alkaline Phosphatase (38-126) U/L Total Protein (6.3-8.2) g/dL Albumin (3.5-5.0) g/dL Assessment and Plan Assessment: Acute hypoxic respiratory failure requiring BiPAP support, secondary to acute multifocal pneumonia, the patient developed new infiltration of the lungs more extensive on the left, consider the possibility of healthcare associated pneumonia. The patient is improved and stable. Remains on the same antibiotic coverage. Procalcitonin level is mildly elevated. The patient is currently on 4 L of oxygen by nasal cannula. Patient is currently off the BiPAP. Responding well to diuretics. Chest x-ray findings are showing stable bilateral pulmonary consolidation left more than right. Previous history of multifocal pneumonia, secondary to Haemophilus influenzae, diagnosed via bronchoscopy and BAL COPD Known history of a right upper lobe pulmonary embolism as noted on CT angiogram of the chest on admission, presently on Eliquis History of systemic candidemia, completed a course of Diflucan. The patient was also being given voriconazole on outpatient basis. Most recent positive blood culture was done 02/11/2024. The patient also had Sarah in her urine on 01/29/2024) and Sarah glabrata in the sputum on 03/14/2024. Chronic urinary retention with indwelling Horn catheter, rule out recurrent infection History of constipation status post decompressive sigmoidoscopy during her previous hospitalization Type 2 diabetes, maintained on insulin Benign essential hypertension Dyslipidemia Severe protein calorie malnutrition Chronic decubitus pressure ulcer and multiple skin ulcerations involving both lower extremities Plan: The patient was seen and evaluated Labs and medications reviewed Transition from Solu-Medrol to a prednisone taper Transition from Pulmicort and Perforomist to Symbicort Titrate down the FiO2 as tolerated Antibiotics per ID service Plan is to return to [facility] at discharge I have personally seen and examined the patient, performed the documentation and the assessment and plan as written. Number of minutes spent on the visit: 10.
[2024-04-03 16:47] LABS: Glucose,Whole Blood 436 mg/dL (70-110)
[2024-04-03 20:54] LABS: Glucose,Whole Blood 225 mg/dL (70-110)
--- NOTE | 2024-04-03 20:56 | PN ---
PROGRESS NOTE SUBJECTIVE: This is a 64-year-old white female. Surgery came and put a midline in her. Dr. Pathak saw her from Infectious Disease. White count is down to 12.7, hemoglobin is 10.5, sodium 136, potassium 2.7, BUN is 23, creatinine 0.19. This is leukocytosis, pneumonia, sepsis, H flu pneumonia. Blood culture negative. Urine for Legionella pending. Procalcitonin mildly elevated. MRSA is negative. Afebrile. White count is down. Cefepime, put on oral antibiotics at discharge. The patient is slowly improving. Her swelling in her legs are decreased. Sat 97 on 4 L. Blood pressure 134/78, pulse 102, temp 98.5, pulse 80 to 100. Continue PT, OT as pneumonia, she will wear oxygen at this time, coccyx wound. Chest x-ray shows left perihilar right lower lobe infiltrates, cefepime and fluoro chronic urinary retention, indwelling Horn, potion status post fecal overload with type 2 diabetes mellitus, recent pulmonary embolism, prednisone taper, Perforomist to Symbicort. Titrate FiO2. Back to [facility] when patient is improved. PROGNOSIS: Guarded. MMODL / IJN: [id number] /
[2024-04-03] MEDS: SYMBICORT 160-4.5 MCG INHALER INHALATION SCH (21:41)
[2024-04-04] MEDS: DEXTROSE 50% SYRINGE 50 ML IVP STA (05:26)
[2024-04-04 05:29] LABS: Glucose,Whole Blood 26 mg/dL (70-110)
[2024-04-04 05:31] LABS: Glucose,Whole Blood 151 mg/dL (70-110)
[2024-04-04 06:05] LABS: Glucose,Whole Blood 76 mg/dL (70-110)
[2024-04-04 06:33] LABS: Glucose,Whole Blood 73 mg/dL (70-110)
[2024-04-04 07:08] LABS: Glucose,Whole Blood 90 mg/dL (70-110)
[2024-04-04 08:30] LABS: Basophils # (A) 0.04 X 10*3/uL (0.00-0.10); Basophils % (A) 0.3 %; Eosinophils # (A) 0.01 X 10*3/uL (0.04-0.35); Eosinophils % (A) 0.1 %; HCT 30.9 % (37.2-46.3); HGB 10.1 g/dL (12.0-15.0); Lymphocytes # (A) 0.62 X 10*3/uL (0.90-5.00); Lymphocytes % (A) 4.2 %; MCH 31.2 pg (27.0-32.0); MCHC 32.7 g/dL (32.0-37.0); MCV 95.4 FL (80.0-97.0); Mean Platelet Volume 10.1 FL (9.5-12.2); Monocytes # (A) 0.29 X 10*3/uL (0.20-1.00); NRBC Per 100 WBC 0 X 10*3/uL (0.00-0.01); Neutrophils # (A) 13.76 X 10*3/uL (1.80-7.70); Neutrophils % (A) 92.7 %; Platelet Count 293 X 10*3/uL (140-440); RBC 3.24 X 10*6/uL (4.10-5.20); WBC 14.82 X 10*3/uL (4.50-10.00)
[2024-04-04 08:56] LABS: ALT 35 U/L (8-44); AST 26 U/L (13-35); Albumin 2.4 g/dL (3.8-4.9); Albumin/Globulin Ratio 1.33 Ratio (1.60-3.17); Alkaline Phosphatase 209 U/L (41-126); Blood Urea Nitrogen 20.4 mg/dL (9.0-27.0); Calcium 7.9 mg/dL (8.7-10.3); Carbon Dioxide 30.1 mmol/L (21.6-31.8); Chloride 104 mmol/L (96-109); Globulin 1.8 g/dL (1.6-3.3); Glucose 31 mg/dL (70-110); Potassium 3.1 mmol/L (3.5-5.5); Sodium 142 mmol/L (135-145); Total Bilirubin <0.2 mg/dL (0.3-1.2); Total Protein 4.2 g/dL (6.2-8.2)
[2024-04-04] MEDS ORDERED: predniSONE 10 MG TAB PO SCH (09:00)
[2024-04-04] MEDS ORDERED: Potassium Replacement Protocol 1 EACH MISC MISCELLANE PRN (09:29)
[2024-04-04] MEDS: predniSONE 20 MG TAB PO SCH (09:37)
[2024-04-04] MEDS: POTASSIUM CHLORIDE ER 20 MEQ TAB.ER PO SCH (09:59)
--- NOTE | 2024-04-04 10:32 | CDI ---
Documentation Clarification Form Date: 04/04/2024 10:25:36 AM From: Renee Jones RN, CCDS Phone: [phone] Admit Date: 03/29/2024 09:31:00 AM Patient Name: Sha Lucio Visit Number: [id number] Discharge Date: ATTENTION: The Clinical Documentation Specialists (CDI) and [facility] Coding Staff appreciate your assistance in clarifying documentation. Please respond to the clarification below the line at the bottom and electronically sign. The CDI & [facility] Coding staff will review the response and follow-up if needed. Please note: Queries are made part of the Legal Health Record. If you have any questions, please contact the author of this message via ITS. Dr. Cory Lloyd A stage 3 pressure ulcer to the right heel present on admission is documented by Nursing. An unstageable pressure ulcer to the coccyx present on admission is documented by Nursing. Based on this information and the findings below, are there additional diagnoses that are clinically appropriate for this patient? History/Risk Factors: COPD, smoker, DM, HLD, HTN and recent admit for pneumonia and respiratory failure. Presented from the shelter with SOB and lower extremity edema. Clinical Indicators: 03/29 Pulmonary financial services consultant: "Chronic decubitus pressure ulcer and multiple skin ulcerations involving both lower extremities. 03/30 Nursing assessment: "Right heel pressure injury present on admission. Stage III. Maceration, ecchymosis, erythema, yellow drainage and foul odor. Coccyx pressure injury present on admission. Unstageable with adherent slough and excoriation. Foul odor." Location: right heel and coccyx Treatment: Foam with border to right heel. Saline irrigant and saline moist gauze with foam border to coccyx Do you agree with Nursing assessment of location and staging for the above pressure ulcers? [ ] Yes [ ] No [ ] Other condition, please specify [ ] Unable to determine Clinical Definitions: Stage 1 Pressure Ulcer: intact skin, non-blanching redness of local area Stage 2 Pressure Ulcer: Partial thickness, loss of dermis, pink wound bed Stage 3 Pressure Ulcer: Full thickness tissue loss Stage 4 Pressure Ulcer: Full thickness tissue loss with exposed bone, tendon, or muscle. Unstageable pressure ulcer: Full thickness tissue loss in which the base of the ulcer is covered by slough (yellow, saenz, sánchez, green or brown) and/or eschar (saenz, brown or black) in the wound bed. MTDD
--- NOTE | 2024-04-04 11:24 | P.CONS ---
History of Present Illness - Reason for Consult Consult date: 04/04/24 wound care - History of Present Illness This is a 64-year-old patient Being seen on 4 S. for multiple ulcerations to the left arm left knee right ankle right foot right upper thigh right lower extremity right posterior calf left lateral calf and left heel. Patient has a unstageable ulceration to the sacrum. Patient was seen approximately a month ago with the sacral ulceration at that time it is a stage III however is pro gressively worsened since she was last seen. Patient has significant amount of eschar to the sacral ulceration no granulation noted. Ulceration measures approximately 6 x 6 x 1 cm lower extremity ulcerations are in various stages of healing. Most ulcerations are dry and intact. A few are weeping. Upper extremity ulcerations are weeping. At this time utilizing absorptive silver to all ulcerations.Patient's past medical history significant for COPD diabetes hyperlipidemia and hypertension. She is an every day smoker. Review Of Systems: Constitutional: No fever, no chills, no night sweats. No weight change. No weakness, fatigue or lethargy. No daytime sleepiness. Integumentary:reports wounds, no lesions. No rash or pruritus. No unusual bruising. No change in hair or nails. Physical exam: General Appearance: Alert, cooperative, no distress, appears stated age. Skin: See HPI all other Skin color, texture, tugor normal, no rashes or lesions. Neurologic: Alert oriented x3 Assessment: 1. Unstageable pressure ulcer sacrum 2. Chronic hypertension with ulcerations and inflammation bilateral lower extremities 3. Diabetes with skin ulceration 4. Multiple nonhealing ulcerations to bilateral lower extremities with fat layer exposure. Plan: 1. Sacrum: Apply Santyl, saline moist gauze, dry gauze, ABD and secure with tape. Change daily. Apply zinc barrier cream to all open ulcerations to bilateral lower extremities and bilateral upper extremities. Utilize Flaco wrap for compression to bilateral lower extremities. Change daily. 2. Patient may benefit From a surgical debridement to the sacral ulceration for possible wound VAC placement. Thank for the consultation any questions please contact the wound care center DNP note has been reviewed and discussed with Dr. Dior and the impression and plan of care has been directed as dictated. Past Medical History Past Medical History: COPD, Diabetes Mellitus, Hyperlipidemia, Hypertension, Pulmonary Embolus (PE) Additional Past Medical History / Comment(s): Chronic wound to the lower extremities, stress fractures L3-L4, L5 fracture, stent placed History of Any Multi-Drug Resistant Organisms: None Reported Past Surgical History: Adenoidectomy, Hysterectomy, Tubal Ligation Additional Past Surgical History / Comment(s): 2 tumors removals Past Anesthesia/Blood Transfusion Reactions: No Reported Reaction Past Psychological History: Anxiety, Depression Smoking Status: Current every day smoker Past Alcohol Use History: None Reported Past Drug Use History: None Reported Medications and Allergies Home Medications Medication Instructions Recorded Confirmed Type Budesonide/Formoterol Fumarate 2 puff INHALATION RT-BID 01/29/24 03/29/24 History [Symbicort 160-4.5 Mcg Inhaler] Escitalopram [Lexapro] 10 mg PO DAILY 01/29/24 03/29/24 History Lactobacillus Rhamnosus GG 1 cap PO BID 01/29/24 03/29/24 History [Culturelle] Melatonin 3 mg PO HS PRN 01/29/24 03/29/24 History Montelukast [Singulair] 10 mg PO HS 01/29/24 03/29/24 History Nicotine 14Mg/24Hr Patch [Habitrol] 1 patch TRANSDERM DAILY 01/29/24 03/29/24 History Budesonide [Pulmicort] 1 mg INHALATION RT-BID ml 02/05/24 03/29/24 Rx Formoterol Fumarate [Perforomist] 20 mcg INHALATION RT-BID ml 02/05/24 03/29/24 Rx Pantoprazole [Protonix] 40 mg PO AC-BID tab 02/05/24 03/29/24 Rx Voriconazole [Vfend] 200 mg PO Q12HR tab 02/05/24 03/29/24 Rx Acetaminophen Tab [Tylenol] 650 mg PO Q4HR PRN tab 02/26/24 03/29/24 Rx Lactulose [Cephulac] 20 gm PO TID 30 Days #90 ml 02/26/24 03/29/24 Rx ALPRAZolam [Xanax] 0.25 mg PO QID tab 03/24/24 03/29/24 Rx Furosemide [Lasix] 20 mg PO DAILY tab 03/24/24 03/29/24 Rx amLODIPine [Norvasc] 5 mg PO DAILY tab 03/24/24 03/29/24 Rx polyethylene glycoL 3350 [Miralax] 17 gm PO DAILY packet 03/24/24 03/29/24 Rx predniSONE [Deltasone] 40 mg PO DAILY tab 03/24/24 03/29/24 Rx Amoxic-Pot Clav 875-125Mg 1 tab PO Q12HR 03/29/24 03/29/24 History [Augmentin 875-125] Apixaban Initiation Dose--VTE See Taper PO BID 03/29/24 03/29/24 History [Eliquis Initiation Dosing for VTE Treatment] Collagenase [Santyl Ointment] 1 applic TOPICAL DIRECTED PRN 03/29/24 03/29/24 History Collagenase [Santyl Ointment] 1 applic TOPICAL DAILY 03/29/24 03/29/24 History HYDROcodone/APAP 5-325MG [[place] 1 tab PO Q6HR PRN 03/29/24 03/29/24 History 5-325] INSULIN LISPRO (HumaLOG) [humaLOG] 5 units SQ AC-TID 03/29/24 03/29/24 History INSULIN LISPRO (HumaLOG) [humaLOG] See Protocol SQ ACHS 03/29/24 03/29/24 History Insulin Glargine [Lantus Vial] 15 unit SQ HS 03/29/24 03/29/24 History Ipratropium-Albuterol Nebulize 3 ml INHALATION RT-Q6H 03/29/24 03/29/24 History [Duoneb 0.5 mg-3 mg/3 ml Soln] Magnesium Hydroxide [Milk of 7,200 mg PO DAILY PRN 03/29/24 03/29/24 History Magnesia Concentrate] Na Phos,M-B/Na Phos,Di-Ba [Fleet 133 ml RECTAL DAILY PRN 03/29/24 03/29/24 History Adult] bisacodyL [Dulcolax] 10 mg RECTAL DAILY PRN 03/29/24 03/29/24 History Allergies Allergy/AdvReac Type Severity Reaction Status Date / Time No Known Allergies Allergy Verified 03/29/24 08:55 Physical Exam Vitals: Vital Signs Temp Pulse Pulse Resp BP BP Pulse Ox 04/04/24 08:56 86 04/04/24 08:45 84 100 04/04/24 07:10 97.7 F 82 18 159/85 100 04/04/24 03:21 92 04/04/24 01:02 98.4 F 96 16 124/69 98 04/03/24 21:59 100 04/03/24 21:44 100 04/03/24 20:00 16 04/03/24 19:26 98.7 F 101 H 16 131/73 98 04/03/24 16:22 100 04/03/24 16:12 104 H 04/03/24 13:10 98.5 F 102 H 18 134/70 97 04/03/24 12:51 82 04/03/24 12:38 82 Intake and Output 04/03/24 04/04/24 04/04/24 22:59 06:59 14:59 Output Total 4500 400 Balance -4500 -400 Output: Urine 4500 400 Other: Voiding Method Indwelling Catheter Indwelling Catheter # Bowel Movements 2 Results CBC & Chem 7: 04/04/24 04:01 04/04/24 04:01 Labs: Abnormal Lab Results - Last 24 Hours (Table) 04/03/24 04/03/24 04/03/24 Range/Units 12:08 16:45 20:52 WBC (4.50-10.00) X 10*3/uL RBC (4.10-5.20) X 10*6/uL Hgb (12.0-15.0) g/dL Hct (37.2-46.3) % RDW (11.5-14.5) % Immature Gran # (0.00-0.04) X 10*3/uL Neutrophils # (1.80-7.70) X 10*3/uL Lymphocytes # (0.90-5.00) X 10*3/uL Eosinophils # (0.04-0.35) X 10*3/uL Potassium (3.5-5.5) mmol/L Creatinine (0.6-1.5) mg/dL Glucose (70-110) mg/dL POC Glucose (mg/dL) 328 H 436 H 225 H (70-110) mg/dL Calcium (8.7-10.3) mg/dL Total Bilirubin (0.3-1.2) mg/dL Alkaline Phosphatase (41-126) U/L Total Protein (6.2-8.2) g/dL Albumin (3.8-4.9) g/dL Albumin/Globulin Ratio (1.60-3.17) Ratio 04/04/24 04/04/24 04/04/24 Range/Units 04:01 04:01 05:18 WBC 14.82 H (4.50-10.00) X 10*3/uL RBC 3.24 L (4.10-5.20) X 10*6/uL Hgb 10.1 L (12.0-15.0) g/dL Hct 30.9 L (37.2-46.3) % RDW 16.0 H (11.5-14.5) % Immature Gran # 0.10 H (0.00-0.04) X 10*3/uL Neutrophils # 13.76 H (1.80-7.70) X 10*3/uL Lymphocytes # 0.62 L (0.90-5.00) X 10*3/uL Eosinophils # 0.01 L (0.04-0.35) X 10*3/uL Potassium 3.1 L (3.5-5.5) mmol/L Creatinine <0.2 L (0.6-1.5) mg/dL Glucose 31 A* (70-110) mg/dL POC Glucose (mg/dL) 26 L* (70-110) mg/dL Calcium 7.9 L (8.7-10.3) mg/dL Total Bilirubin <0.2 L (0.3-1.2) mg/dL Alkaline Phosphatase 209 H (41-126) U/L Total Protein 4.2 L (6.2-8.2) g/dL Albumin 2.4 L (3.8-4.9) g/dL Albumin/Globulin Ratio 1.33 L (1.60-3.17) Ratio 04/04/24 Range/Units 05:29 WBC (4.50-10.00) X 10*3/uL RBC (4.10-5.20) X 10*6/uL Hgb (12.0-15.0) g/dL Hct (37.2-46.3) % RDW (11.5-14.5) % Immature Gran # (0.00-0.04) X 10*3/uL Neutrophils # (1.80-7.70) X 10*3/uL Lymphocytes # (0.90-5.00) X 10*3/uL Eosinophils # (0.04-0.35) X 10*3/uL Potassium (3.5-5.5) mmol/L Creatinine (0.6-1.5) mg/dL Glucose (70-110) mg/dL POC Glucose (mg/dL) 151 H (70-110) mg/dL Calcium (8.7-10.3) mg/dL Total Bilirubin (0.3-1.2) mg/dL Alkaline Phosphatase (41-126) U/L Total Protein (6.2-8.2) g/dL Albumin (3.8-4.9) g/dL Albumin/Globulin Ratio (1.60-3.17) Ratio Microbiology - Last 24 Hours (Table) 03/29/24 08:28 Blood Culture - Final Blood 03/29/24 08:05 Blood Culture - Final Blood Assessment and Plan (1) Nonhealing ulcer of multiple sites of left lower extremity with fat layer exposed Current Visit: Yes Status: Acute Code(s): L97.922 - NON-PRS CHR ULC UNSP PRT OF L LOW LEG W FAT LAYER EXPOSED SNOMED Code(s): 18460591 (2) Nonhealing ulcer of multiple sites of right lower extremity with fat layer exposed Current Visit: Yes Status: Acute Code(s): L97.912 - NON-PRS CHR ULC UNSP PRT OF R LOW LEG W FAT LAYER EXPOSED SNOMED Code(s): 90540511 (3) Unstageable pressure ulcer of sacral region Current Visit: Yes Status: Acute Code(s): L89.150 - PRESSURE ULCER OF SACRAL REGION, UNSTAGEABLE SNOMED Code(s): 19094886801990091 (4) Chronic venous hypertension (idiopathic) with ulcer of bilateral lower extremity Current Visit: No Status: Acute Code(s): I87.313 - CHRONIC VENOUS HYPERTENSION W ULCER OF BILATERAL LOW EXTRM; L97.919 - NON-PRS CHRONIC ULC UNSP PRT OF R LOW LEG W UNSP SEVERITY; L97.929 - NON-PRS CHRONIC ULC UNSP PRT OF L LO W LEG W UNSP SEVERITY SNOMED Code(s): 126961881186905 (5) Type 2 diabetes mellitus with other skin ulcer Current Visit: No Status: Acute Code(s): E11.622 - TYPE 2 DIABETES MELLITUS WITH OTHER SKIN ULCER; L98.499 - NON-PRESSURE CHRONIC ULCER OF SKIN OF SITES W UNSP SEVERITY SNOMED Code(s): 213169481825673
[2024-04-04 11:27] LABS: Glucose,Whole Blood 229 mg/dL (70-110)
--- NOTE | 2024-04-04 12:45 | P.PN ---
Subjective Progress Note Date: 04/04/24 Principal diagnosis: Reason for follow-up is pneumonia Patient is a 54-year-old female with a past medical history significant for diabetes mellitus hypertension hyperlipidemia PE COPD had recent admission to the hospital treated for pneumonia sputum was positive for H aemophilus influenzae received IV and oral antibioticssent to the long term brought back to the hospital worsening respiratory status and concern for possible pneumonia requiring admission in the ICU. On today's evaluation that is 04/04/2024,the patient denies any fever or any chills, patient is breathing comfortably on 4 L current oxygen the patient denies chest pain shortness of breath and no significant cough, patient denies abdominal pain, no nausea vomiting did have frequent loose stools per the nursing staff. Patient white count slightly up to 14.8 today, creatinine 0.2 Objective - Vital Signs Vital signs: Vital Signs Temp 97.7 F 04/04/24 07:10 Pulse 88 04/04/24 12:35 Resp 18 04/04/24 07:10 BP 159/85 04/04/24 07:10 Pulse Ox 100 04/04/24 08:45 FiO2 50 04/03/24 01:06 Intake & Output 04/03/24 04/04/24 04/04/24 18:59 06:59 18:59 Output Total 4500 400 Balance -4500 -400 Output: Urine 4500 400 Other: Voiding Method Indwelling Catheter Indwelling Catheter Indwelling Catheter # Bowel Movements 1 2 - Exam GENERAL DESCRIPTION: Middle-age female lying in bed in no distress RESPIRATORY SYSTEM: Unlabored breathing , decreased breath sounds at bases HEART: S1 S2 regular rate and rhythm , ABDOMEN: Soft , no tenderness EXTREMITIES: No edema feet - Labs CBC & Chem 7: 04/04/24 04:01 04/04/24 04:01 Labs: Abnormal Lab Results - Last 24 Hours (Table) 04/03/24 04/03/24 04/04/24 Range/Units 16:45 20:52 04:01 WBC 14.82 H (4.50-10.00) X 10*3/uL RBC 3.24 L (4.10-5.20) X 10*6/uL Hgb 10.1 L (12.0-15.0) g/dL Hct 30.9 L (37.2-46.3) % RDW 16.0 H (11.5-14.5) % Immature Gran # 0.10 H (0.00-0.04) X 10*3/uL Neutrophils # 13.76 H (1.80-7.70) X 10*3/uL Lymphocytes # 0.62 L (0.90-5.00) X 10*3/uL Eosinophils # 0.01 L (0.04-0.35) X 10*3/uL Potassium (3.5-5.5) mmol/L Creatinine (0.6-1.5) mg/dL Glucose (70-110) mg/dL POC Glucose (mg/dL) 436 H 225 H (70-110) mg/dL Calcium (8.7-10.3) mg/dL Total Bilirubin (0.3-1.2) mg/dL Alkaline Phosphatase (41-126) U/L Total Protein (6.2-8.2) g/dL Albumin (3.8-4.9) g/dL Albumin/Globulin Ratio (1.60-3.17) Ratio 04/04/24 04/04/24 04/04/24 Range/Units 04:01 05:18 05:29 WBC (4.50-10.00) X 10*3/uL RBC (4.10-5.20) X 10*6/uL Hgb (12.0-15.0) g/dL Hct (37.2-46.3) % RDW (11.5-14.5) % Immature Gran # (0.00-0.04) X 10*3/uL Neutrophils # (1.80-7.70) X 10*3/uL Lymphocytes # (0.90-5.00) X 10*3/uL Eosinophils # (0.04-0.35) X 10*3/uL Potassium 3.1 L (3.5-5.5) mmol/L Creatinine <0.2 L (0.6-1.5) mg/dL Glucose 31 A* (70-110) mg/dL POC Glucose (mg/dL) 26 L* 151 H (70-110) mg/dL Calcium 7.9 L (8.7-10.3) mg/dL Total Bilirubin <0.2 L (0.3-1.2) mg/dL Alkaline Phosphatase 209 H (41-126) U/L Total Protein 4.2 L (6.2-8.2) g/dL Albumin 2.4 L (3.8-4.9) g/dL Albumin/Globulin Ratio 1.33 L (1.60-3.17) Ratio 04/04/24 Range/Units 11:25 WBC (4.50-10.00) X 10*3/uL RBC (4.10-5.20) X 10*6/uL Hgb (12.0-15.0) g/dL Hct (37.2-46.3) % RDW (11.5-14.5) % Immature Gran # (0.00-0.04) X 10*3/uL Neutrophils # (1.80-7.70) X 10*3/uL Lymphocytes # (0.90-5.00) X 10*3/uL Eosinophils # (0.04-0.35) X 10*3/uL Potassium (3.5-5.5) mmol/L Creatinine (0.6-1.5) mg/dL Glucose (70-110) mg/dL POC Glucose (mg/dL) 229 H (70-110) mg/dL Calcium (8.7-10.3) mg/dL Total Bilirubin (0.3-1.2) mg/dL Alkaline Phosphatase (41-126) U/L Total Protein (6.2-8.2) g/dL Albumin (3.8-4.9) g/dL Albumin/Globulin Ratio (1.60-3.17) Ratio Microbiology - Last 24 Hours (Table) 03/29/24 08:28 Blood Culture - Final Blood 03/29/24 08:05 Blood Culture - Final Blood Assessment and Plan (1) Leukocytosis Current Visit: Yes Status: Acute Code(s): D72.829 - ELEVATED WHITE BLOOD CELL COUNT, UNSPECIFIED SNOMED Code(s): 636269682 (2) Pneumonia Current Visit: Yes Status: Acute Code(s): J18.9 - PNEUMONIA, UNSPECIFIED ORGANISM SNOMED Code(s): 400634786 Plan: 1patient was in the hospital with sepsis in this patient who did have a leukocytosis tachycardia hypoxemia admitted currently for SIRS/sepsis source likely pneumonia concern for possible gram-negative versus gram-positive recently treated for Haemophilus influenzae pneumonia 2 blood culture remains to be negative, urine for Legionella antigen currently pending procalcitonin was mildly elevated 0.57 on the patient nasal screen MRSA has been negative 3-patient remains to be afebrile patient white count slightly up today and also developed diarrhea we will check a stool for C. difficile and treat if positive for now add Questran for symptomatic relief. 4discontinue cefepime start the patient on Omnicef to finish her treatment for pneumonia Dictation was produced using [employer] dictation software. please excuse any grammatical, word or spelling errors. Time with Patient: Less than 30
[2024-04-04] MEDS: CHOLESTYRAMINE (WITH SUGAR) 4 GM PACKET PO SCH (14:16)
[2024-04-04] MEDS: COLLAGENASE 250 UNIT/GM OINTMENT 30 GM TUBE TOPICAL SCH (14:19)
[2024-04-04] MEDS: ZINC OXIDE 20% OINT 28.4 GM TUBE TOPICAL PRN (14:28)
--- NOTE | 2024-04-04 14:29 | P.PN ---
Subjective Progress Note Date: 04/04/24 64-year-old female patient, known to us, the patient was treated in the hospital when she had a prolonged hospitalization from 01/30/2024 and she was discharged on 03/24/2024 to be readmitted to hospital on 03/29/2024 with worsening shortness of breath and respiratory failure. The patient was seen in emergency department. The patient is a significant respiratory distress and the patient is currently on a BiPAP at a pressure of 12 over 5 cm of water and FiO2 of 50%. Her current respiratory rate is in the low 30s. Blood pressure is stable. The patient is extremely lethargic, weak, has chronic wounds in her lower extremities bilaterally, has an indwelling Horn catheter which was present at the [facility] she has not she is nonambulatory status in right foot is extremely cloudy with significant amount of debris's and some purulence. Chest x-ray was emergency department and it shows an extensive area of consolidation involving the left lung along with some small bilateral pleural effusions and background COPD. The patient was given Zithromax and Zosyn. ICU consultation was requested This patient is known to have advanced COPD. During her last hospitalization, the patient was in acute hypoxic respiratory failure requiring intubation mechanical ventilation and he was ultimately extubated on 03/17/2024. During the course of her illness, she was bronchoscope and the sputum sample on 03/13/2024 and 03/14/2024 was positive for haemophilus influenza and she was treated accordingly. She was also diagnosed having a right upper lobe pulmonary embolism treated with anticoagulation with Eliquis. During the course of her illness, the patient had systemic candidemia and the blood cultures was on 02/11/2024 was positive for Sarah albicans and the bronchial washings also showed Sarah glabrata. Urine culture was also positive for Sarah. The patient was given IV Diflucan and she completed the course of antifungal treatment. Her echocardiogram showed no evidence of any vegetation and her left-ventricular ejection fraction was essentially within normal limits. Infection and a hyperdynamic heart with an EF of around 70 to 75%. No significant valvular abnormalities. Her current labs show a white cell count of 22.3 which has been elevated since her discharge from the hospital, hemoglobin 11.7 and platelet count is 407, serum bicarbonate 30 and sodium levels of 134, BUN is 22 with a creatinine of 0.25. LFTs are within normal limits. Most recent procalcitonin level from 03/24/2024 was at 0.08. Blood cultures have been sent. On 03/30/2024, the patient was taken off the BiPAP and the patient has been transitioned to oxygen at 3 L/min nasal cannula. No new complaints. Chest x- ray findings are essentially unchanged. The patient has stable right basilar and left midlung consolidation and bilateral pleural effusions. Nevertheless, she seems to be much more comfortable. She continues to have a congested cough and she is on a broad-spectrum antibiotics and the patient is currently on a combination of cefepime, vancomycin and voriconazole. Awaiting follow-up cul tures on this patient. The white cell count is down to 18 with a hemoglobin 10.3 and a platelet count of 350. Electrolytes are stable with a BUN of 25 and a creatinine of 0.2. Procalcitonin level is at 0.57. She is weak yet awake and alert. Communicating. She has chronic wounds in lower extremities and some ongoing +1 edema lower extremities bilaterally. Moving all 4 extremities other than limitation. No altered mentation at this point in time. On 03/31/2024, the patient is stable. The patient remains on 40 Suboxone by nasal cannula. The patient does receive with IV Lasix and she is in a negative fluid balance of 1.8 L over the past 24 hours. Meanwhile, chest x-ray from today shows stable bilateral pulm infiltrates. The patient remains on the same antibiotic coverage includes cefepime, vancomycin and voriconazole. Blood cultures are still negative. The white cell count of 19 with a hemoglobin 10.7 and platelet count of 383. BUN is 23 with a creatinine 0.3. Sodium level is at 137. The patient continues to have wound care to lower extremities. Awake and alert and communicating. Remains on bronchodilators. Remains on steroids. Remains on Levemir insulin for blood sugar control at 15 units at bedtime and a sliding scale coverage. No other significant events overnight. The patient is being seen for a follow-up. The patient is doing well. No specific complaints. Continues to diurese. Blood cultures are negative the patient remains on the same antibiotic coverage. The white cell count from today is at 23 with a hemoglobin of 10 and a platelet count of 334. Electrolytes are all stable with a BUN of 19 and a creatinine of 0.3. Sodium levels at 141. No other significant events overnight. She is currently on oxygen at 4 L/min nasal cannula. 04/02/2024, the patient is doing well. She continues B12 with Lasix and the patient is -2.9 L over the past 24 hours. Edema is improving. Meanwhile, repeat chest x-ray was done and the pulmonary findings are essentially stable. The white cell count from yesterday was 23 and awaiting follow-up labs from to day. Renal function is also stable from yesterday. The patient remains on IV Lasix. The patient remains on cefepime vancomycin and voriconazole. Cultures are negative thus far. No interval worsening shortness of breath. No new findings or new complaints for now. She remains stable on 4 L of oxygen by nasal cannula. The patient is seen today April 03, 2024 in follow-up on the regular medical floor. She is currently sitting up in bed. Awake and alert in no acute distress. She is maintaining O2 saturations in the 90s on 4 L/min per nasal cannula. She has been refusing BiPAP support at night. She has been refusing to get up out of bed. She does have a wound on her coccyx. She is having some issues with diarrhea. Chest x-ray reveals left perihilar and right lower lobe infiltrates. She remains on cefepime and voriconazole. She denies any shortness of breath, cough or congestion. No fever or chills. 7. Bicarb 30. BUN 23. Creatinine 0.19. Glucose 84. She is continued on inhalations, Pulmicort and Perforomist inhalations, Solu-Medrol. The patient is seen today April 04, 2024 in follow-up on the regular medical floor. She is awake and alert in no acute distress. She continues to be reluctant to move about or get up out of bed or even have staff change her when she has had a bowel movement. She does have an unstageable ulcer on her sacrum and multiple nonhealing ulcers of the bilateral lower extremities with fat layer exposure that is being followed by wound center's nurse practitioner. Glucose 90. She is continued on DuoNeb inhalations, Pulmicort and Perforomist inhalations, prednisone. Objective - Vital Signs Vital signs: Vital Signs Temp 97.7 F 04/04/24 07:10 Pulse 88 04/04/24 12:35 Resp 18 04/04/24 07:10 BP 159/85 04/04/24 07:10 Pulse Ox 100 04/04/24 08:45 FiO2 50 04/03/24 01:06 Intake & Output 04/03/24 04/04/24 04/04/24 18:59 06:59 18:59 Output Total 4500 400 Balance -4500 -400 Weight 67.8 kg Output: Urine 4500 400 Other: Voiding Method Indwelling Catheter Indwelling Catheter Indwelling Catheter # Bowel Movements 1 2 - Exam GENERAL EXAM: Reveals an awake, alert 64-year-old female, currently on 4 L of oxygen by nasal cannula. HEAD: Normocephalic and atraumatic EYES: Normal reaction of pupils, equal size. NOSE: Clear with pink turbinates. THROAT: No erythema or exudates. NECK: No masses, no JVD. CHEST: No chest wall deformity. LUNGS: Diminished breath sounds at the bases no crackles rhonchi or wheezes, scattered rhonchi and crackles specially in left lung base. CVS: Distant S1-S2, no S3 gallop, no murmur. ABDOMEN: Soft nontender no megaly no rebound no guarding. Bowel sounds. SKIN: Unstageable pressure injury on the sacrum. Bilateral lower extremity wounds. Multiple superficial ulcerations noted in both lower extremities. No active drainage. The wound bases are essentially clean at this point and most of the wounds are present over the chavez bilaterally and various sizes and shapes. Pulses in lower extremities present. There are some edema in her ankles bilaterally and some edema in the upper extremities bilaterally. CENTRAL NERVOUS SYSTEM: Alert and oriented x 3, no gross focal neurologic deficit, moving all 4 extremities other than limitation. Generalized muscle weakness in all 4 extremities. EXTREMITIES: Bipedal edema with multiple superficial skin lesions/ulcerations noted bilaterally - Labs CBC & Chem 7: 04/04/24 04:01 04/04/24 04:01 Labs: Abnormal Lab Results - Last 24 Hours (Table) 04/03/24 04/03/24 04/04/24 Range/Units 16:45 20:52 04:01 WBC 14.82 H (4.50-10.00) X 10*3/uL RBC 3.24 L (4.10-5.20) X 10*6/uL Hgb 10.1 L (12.0-15.0) g/dL Hct 30.9 L (37.2-46.3) % RDW 16.0 H (11.5-14.5) % Immature Gran # 0.10 H (0.00-0.04) X 10*3/uL Neutrophils # 13.76 H (1.80-7.70) X 10*3/uL Lymphocytes # 0.62 L (0.90-5.00) X 10*3/uL Eosinophils # 0.01 L (0.04-0.35) X 10*3/uL Potassium (3.5-5.5) mmol/L Creatinine (0.6-1.5) mg/dL Glucose (70-110) mg/dL POC Glucose (mg/dL) 436 H 225 H (70-110) mg/dL Calcium (8.7-10.3) mg/dL Total Bilirubin (0.3-1.2) mg/dL Alkaline Phosphatase (41-126) U/L Total Protein (6.2-8.2) g/dL Albumin (3.8-4.9) g/dL Albumin/Globulin Ratio (1.60-3.17) Ratio 04/04/24 04/04/24 04/04/24 Range/Units 04:01 05:18 05:29 WBC (4.50-10.00) X 10*3/uL RBC (4.10-5.20) X 10*6/uL Hgb (12.0-15.0) g/dL Hct (37.2-46.3) % RDW (11.5-14.5) % Immature Gran # (0.00-0.04) X 10*3/uL Neutrophils # (1.80-7.70) X 10*3/uL Lymphocytes # (0.90-5.00) X 10*3/uL Eosinophils # (0.04-0.35) X 10*3/uL Potassium 3.1 L (3.5-5.5) mmol/L Creatinine <0.2 L (0.6-1.5) mg/dL Glucose 31 A* (70-110) mg/dL POC Glucose (mg/dL) 26 L* 151 H (70-110) mg/dL Calcium 7.9 L (8.7-10.3) mg/dL Total Bilirubin <0.2 L (0.3-1.2) mg/dL Alkaline Phosphatase 209 H (41-126) U/L Total Protein 4.2 L (6.2-8.2) g/dL Albumin 2.4 L (3.8-4.9) g/dL Albumin/Globulin Ratio 1.33 L (1.60-3.17) Ratio 04/04/24 Range/Units 11:25 WBC (4.50-10.00) X 10*3/uL RBC (4.10-5.20) X 10*6/uL Hgb (12.0-15.0) g/dL Hct (37.2-46.3) % RDW (11.5-14.5) % Immature Gran # (0.00-0.04) X 10*3/uL Neutrophils # (1.80-7.70) X 10*3/uL Lymphocytes # (0.90-5.00) X 10*3/uL Eosinophils # (0.04-0.35) X 10*3/uL Potassium (3.5-5.5) mmol/L Creatinine (0.6-1.5) mg/dL Glucose (70-110) mg/dL POC Glucose (mg/dL) 229 H (70-110) mg/dL Calcium (8.7-10.3) mg/dL Total Bilirubin (0.3-1.2) mg/dL Alkaline Phosphatase (41-126) U/L Total Protein (6.2-8.2) g/dL Albumin (3.8-4.9) g/dL Albumin/Globulin Ratio (1.60-3.17) Ratio Microbiology - Last 24 Hours (Table) 03/29/24 08:28 Blood Culture - Final Blood 03/29/24 08:05 Blood Culture - Final Blood Assessment and Plan Assessment: Acute hypoxic respiratory failure requiring BiPAP support, secondary to acute multifocal pneumonia, the patient developed new infiltration of the lungs more extensive on the left, consider the possibility of healthcare associated pneumonia. The patient is improved and stable. The patient is currently on 4 L of oxygen by nasal cannula. Chest x-ray findings are showing stable bilateral pulmonary consolidation left more than right. Previous history of multifocal pneumonia, secondary to Haemophilus influenzae, diagnosed via bronchoscopy and BAL COPD Known history of a right upper lobe pulmonary embolism as noted on CT angiogram of the chest on admission, presently on Eliquis History of systemic candidemia, completed a course of Diflucan. The patient was also being given voriconazole on outpatient basis. Most recent positive blood culture was done 02/11/2024. The patient also had Sarah in her urine on 01/29/2024) and Sarah glabrata in the sputum on 03/14/2024. Chronic urinary retention with indwelling Horn catheter, rule out recurrent infection History of constipation status post decompressive sigmoidoscopy during her previous hospitalization Type 2 diabetes, maintained on insulin Benign essential hypertension Dyslipidemia Severe protein calorie malnutrition Chronic decubitus pressure ulcer and multiple skin ulcerations involving both lower extremities Plan: The patient was seen and evaluated Medications reviewed Titrate down the FiO2 as tolerated Antibiotics per ID service, currently on Omnicef Plan is to return to [facility] at discharge I have personally seen and examined the patient, performed the documentation and the assessment and plan as written. Number of minutes spent on the visit: 10.
[2024-04-04 16:49] LABS: Glucose,Whole Blood 264 mg/dL (70-110)
[2024-04-04 20:46] LABS: Glucose,Whole Blood 220 mg/dL (70-110)
[2024-04-04] MEDS: CEFDINIR 300 MG CAP PO SCH (21:44)
[2024-04-05 06:12] LABS: Glucose,Whole Blood 237 mg/dL (70-110)
[2024-04-05] MEDS: INSULIN DETEMIR (LEVEMIR) 100 UNIT/ML SYR SQ SCH (06:52)
[2024-04-05 11:46] LABS: Glucose,Whole Blood 226 mg/dL (70-110)
[2024-04-05] MEDS: ZINC OXIDE PASTE (Z-GUARD) 1 APPLIC TOPICAL SCH (12:33)
[2024-04-05 14:16] LABS: Glucose,Whole Blood 205 mg/dL (70-110)
--- NOTE | 2024-04-05 14:19 | P.PN ---
Subjective Progress Note Date: 04/05/24 64-year-old female patient, known to us, the patient was treated in the hospital when she had a prolonged hospitalization from 01/30/2024 and she was discharged on 03/24/2024 to be readmitted to hospital on 03/29/2024 with worsening shortness of breath and respiratory failure. The patient was seen in emergency department. The patient is a significant respiratory distress and the patient is currently on a BiPAP at a pressure of 12 over 5 cm of water and FiO2 of 50%. Her current respiratory rate is in the low 30s. Blood pressure is stable. The patient is extremely lethargic, weak, has chronic wounds in her lower extremities bilaterally, has an indwelling Horn catheter which was present at the intermediate she has not she is nonambulatory status in right foot is extremely cloudy with significant amount of debris's and some purulence. Chest x-ray was emergency department and it shows an extensive area of consolidation involving the left lung along with some small bilateral pleural effusions and background COPD. The patient was given Zithromax and Zosyn. ICU consultation was requested This patient is known to have advanced COPD. During her last hospitalization, the patient was in acute hypoxic respiratory failure requiring intubation mechanical ventilation and he was ultimately extubated on 03/17/2024. During the course of her illness, she was bronchoscope and the sputum sample on 03/13/2024 and 03/14/2024 was positive for haemophilus influenza and she was treated accordingly. She was also diagnosed having a right upper lobe pulmonary embolism treated with anticoagulation with Eliquis. During the course of her illness, the patient had systemic candidemia and the blood cultures was on 02/11/2024 was positive for Sarah albicans and the bronchial washings also showed Sarah glabrata. Urine culture was also positive for Sarah. The patient was given IV Diflucan and she completed the course of antifungal treatment. Her echocardiogram showed no evidence of any vegetation and her left-ventricular ejection fraction was essentially within normal limits. Infection and a hyperdynamic heart with an EF of around 70 to 75%. No significant valvular abnormalities. Her current labs show a white cell count of 22.3 which has been elevated since her discharge from the hospital, hemoglobin 11.7 and platelet count is 407, serum bicarbonate 30 and sodium levels of 134, BUN is 22 with a creatinine of 0.25. LFTs are within normal limits. Most recent procalcitonin level from 03/24/2024 was at 0.08. Blood cultures have been sent. On 03/30/2024, the patient was taken off the BiPAP and the patient has been transitioned to oxygen at 3 L/min nasal cannula. No new complaints. Chest x- ray findings are essentially unchanged. The patient has stable right basilar and left midlung consolidation and bilateral pleural effusions. Nevertheless, she seems to be much more comfortable. She continues to have a congested cough and she is on a broad-spectrum antibiotics and the patient is currently on a combination of cefepime, vancomycin and voriconazole. Awaiting follow-up cul tures on this patient. The white cell count is down to 18 with a hemoglobin 10.3 and a platelet count of 350. Electrolytes are stable with a BUN of 25 and a creatinine of 0.2. Procalcitonin level is at 0.57. She is weak yet awake and alert. Communicating. She has chronic wounds in lower extremities and some ongoing +1 edema lower extremities bilaterally. Moving all 4 extremities other than limitation. No altered mentation at this point in time. On 03/31/2024, the patient is stable. The patient remains on 40 Suboxone by nasal cannula. The patient does receive with IV Lasix and she is in a negative fluid balance of 1.8 L over the past 24 hours. Meanwhile, chest x-ray from today shows stable bilateral pulm infiltrates. The patient remains on the same antibiotic coverage includes cefepime, vancomycin and voriconazole. Blood cultures are still negative. The white cell count of 19 with a hemoglobin 10.7 and platelet count of 383. BUN is 23 with a creatinine 0.3. Sodium level is at 137. The patient continues to have wound care to lower extremities. Awake and alert and communicating. Remains on bronchodilators. Remains on steroids. Remains on Levemir insulin for blood sugar control at 15 units at bedtime and a sliding scale coverage. No other significant events overnight. The patient is being seen for a follow-up. The patient is doing well. No specific complaints. Continues to diurese. Blood cultures are negative the patient remains on the same antibiotic coverage. The white cell count from today is at 23 with a hemoglobin of 10 and a platelet count of 334. Electrolytes are all stable with a BUN of 19 and a creatinine of 0.3. Sodium levels at 141. No other significant events overnight. She is currently on oxygen at 4 L/min nasal cannula. 04/02/2024, the patient is doing well. She continues B12 with Lasix and the patient is -2.9 L over the past 24 hours. Edema is improving. Meanwhile, repeat chest x-ray was done and the pulmonary findings are essentially stable. The white cell count from yesterday was 23 and awaiting follow-up labs from to day. Renal function is also stable from yesterday. The patient remains on IV Lasix. The patient remains on cefepime vancomycin and voriconazole. Cultures are negative thus far. No interval worsening shortness of breath. No new findings or new complaints for now. She remains stable on 4 L of oxygen by nasal cannula. The patient is seen today April 03, 2024 in follow-up on the regular medical floor. She is currently sitting up in bed. Awake and alert in no acute distress. She is maintaining O2 saturations in the 90s on 4 L/min per nasal cannula. She has been refusing BiPAP support at night. She has been refusing to get up out of bed. She does have a wound on her coccyx. She is having some issues with diarrhea. Chest x-ray reveals left perihilar and right lower lobe infiltrates. She remains on cefepime and voriconazole. She denies any shortness of breath, cough or congestion. No fever or chills. 7. Bicarb 30. BUN 23. Creatinine 0.19. Glucose 84. She is continued on inhalations, Pulmicort and Perforomist inhalations, Solu-Medrol. The patient is seen today April 04, 2024 in follow-up on the regular medical floor. She is awake and alert in no acute distress. She continues to be reluctant to move about or get up out of bed or even have staff change her when she has had a bowel movement. She does have an unstageable ulcer on her sacrum and multiple nonhealing ulcers of the bilateral lower extremities with fat layer exposure that is being followed by wound center's nurse practitioner. Glucose 90. She is continued on DuoNeb inhalations, Pulmicort and Perforomist inhalations, prednisone. The patient is seen today April 05, 2024 in follow-up on the regular medical floor. She is sitting up in bed. Awake and alert in no acute distress. Maintaining O2 saturations in the 90s on 4 L/min per nasal cannula. She is continued on DuoNeb inhalations, Symbicort, prednisone taper. Currently on Omnicef and voriconazole. Remains on diuretics. Glucose 205. C. difficile screen was negative. Objective - Vital Signs Vital signs: Vital Signs Temp 98.5 F 04/05/24 07:15 Pulse 98 04/05/24 12:23 Resp 20 04/05/24 07:15 BP 132/80 04/05/24 07:15 Pulse Ox 99 04/05/24 08:39 FiO2 50 04/03/24 01:06 Intake & Output 04/04/24 04/05/24 04/05/24 18:59 06:59 18:59 Output Total 1800 800 Balance -1800 -800 Weight 67.8 kg Output: Urine 1800 800 Other: Voiding Method Indwelling Catheter Indwelling Catheter # Bowel Movements 2 1 1 - Exam GENERAL EXAM: Reveals an awake, alert 64-year-old female, sitting up in bed, on 4 L of oxygen by nasal cannula. HEAD: Normocephalic and atraumatic EYES: Normal reaction of pupils, equal size. NOSE: Clear with pink turbinates. THROAT: No erythema or exudates. NECK: No masses, no JVD. CHEST: No chest wall deformity. LUNGS: Diminished breath sounds at the bases no crackles rhonchi or wheezes, scattered rhonchi and crackles specially in left lung base. CVS: Distant S1-S2, no S3 gallop, no murmur. ABDOMEN: Soft nontender no megaly no rebound no guarding. Bowel sounds. SKIN: Unstageable pressure injury on the sacrum. Bilateral lower extremity wounds. Multiple superficial ulcerations noted in both lower extremities. No active drainage. The wound bases are essentially clean at this point and most of the wounds are present over the chavez bilaterally and various sizes and shapes. Pulses in lower extremities present. There are some edema in her ankles bilaterally and some edema in the upper extremities bilaterally. CENTRAL NERVOUS SYSTEM: Alert and oriented x 3, no gross focal neurologic deficit, moving all 4 extremities other than limitation. Generalized muscle weakness in all 4 extremities. EXTREMITIES: Bipedal edema with multiple superficial skin lesions/ulcerations noted bilaterally - Labs CBC & Chem 7: 04/04/24 04:01 04/04/24 04:01 Labs: Abnormal Lab Results - Last 24 Hours (Table) 04/04/24 04/04/24 04/05/24 Range/Units 16:48 20:44 06:11 POC Glucose (mg/dL) 264 H 220 H 237 H (70-110) mg/dL 04/05/24 Range/Units 11:45 POC Glucose (mg/dL) 226 H (70-110) mg/dL Assessment and Plan Assessment: Acute hypoxic respiratory failure requiring BiPAP support, secondary to acute multifocal pneumonia, the patient developed new infiltration of the lungs more extensive on the left, consider the possibility of healthcare associated pneumonia. The patient is improved and stable. On 4 L of oxygen by nasal cannula. Chest x-ray findings are showing stable bilateral pulmonary consolidation left more than right. Previous history of multifocal pneumonia, secondary to Haemophilus influenzae, diagnosed via bronchoscopy and BAL COPD Known history of a right upper lobe pulmonary embolism as noted on CT angiogram of the chest on admission, presently on Eliquis History of systemic candidemia, completed a course of Diflucan. The patient was also being given voriconazole on outpatient basis. Most recent positive blood culture was done 02/11/2024. The patient also had Sarah in her urine on 024) and Sarah glabrata in the sputum on 03/14/2024. Chronic urinary retention with indwelling Horn catheter, rule out recurrent infection History of constipation status post decompressive sigmoidoscopy during her previous hospitalization Type 2 diabetes, maintained on insulin Benign essential hypertension Dyslipidemia Severe protein calorie malnutrition Chronic decubitus pressure ulcer and multiple skin ulcerations involving both lower extremities Plan: The patient was seen and evaluated Medications reviewed Titrate down the FiO2 as tolerated Antibiotics per ID service, currently on Omnicef Cleared for discharge from the pulmonary standpoint Plan is to return to [facility] for subacute rehabilitation I have personally seen and examined the patient, performed the documentation and the assessment and plan as written. Number of minutes spent on the visit: 10.
[2024-04-05 16:28] LABS: Glucose,Whole Blood 248 mg/dL (70-110)
[2024-04-05 21:13] LABS: Glucose,Whole Blood 333 mg/dL (70-110)
--- NOTE | 2024-04-06 00:39 | PN ---
PROGRESS NOTE SUBJECTIVE: This is a 64-year-old white female who is improving with her breathing. OBJECTIVE: VITAL SIGNS: Pulse is 102, temp 98.8, respiratory rate is 16 to 18, blood pressure 114/69, O2 . CARDIOVASCULAR: S1, S2. LUNGS: Transmitted upper airway sounds. PSYCH: Fair mood and affect. NEUROLOGIC: Alert and oriented x3. Prognosis guarded. Follow up in the next 24 to 48 hours. Continue current treatment. Possibly go to rehab at [facility] soon. Medications reviewed with the patient. Continue with breathing treatments, oxygen. Further orders pending discharge. MMODL / IJN: [id number] /
--- NOTE | 2024-04-06 00:54 | PN ---
PROGRESS NOTE DATE OF SERVICE: 04/04/2024 SUBJECTIVE: From pulmonary perspective, the patient is doing much better. Breathing is improving. Remains on oxygen and breathing treatments. OBJECTIVE: VITAL SIGNS: Blood pressure 132/80, temp 98.8, respiratory rate 20, and O2 99. CARDIOVASCULAR: S1, S2. LUNGS: Scattered rhonchi and wheeze, transmitted upper sounds. HEMATOLOGY: Negative for Homans. NEUROLOGIC: She is sitting up, alert, oriented. PSYCH: Fair mood and affect. HEENT: Pupils equal, round, and reactive. [employer]: Cranial nerves intact. Prednisone taper, Omnicef, voriconazole, diuretics. Glucose 200. C diff is negative. COPD, multifocal pneumonia, acute hypoxic respiratory failure, chronic urinary retention, systemic candidemia, right upper lobe pulmonary embolism, COPD, diabetes mellitus, hypertension, dyslipidemia, severe protein-calorie malnutrition, chronic pressure ulcer. She is cleared from discharge. Possible subacute rehab at [facility] in possibly next day or 2. MMODL / IJN: [id number] /
[2024-04-06 06:15] LABS: Glucose,Whole Blood 110 mg/dL (70-110)
[2024-04-06 11:02] LABS: Basophils # (A) 0.04 X 10*3/uL (0.00-0.10); Basophils % (A) 0.2 %; Eosinophils # (A) 0.19 X 10*3/uL (0.04-0.35); HGB 10.4 g/dL (12.0-15.0); Lymphocytes % (A) 5.7 %; MCH 30.6 pg (27.0-32.0); MCHC 32.5 g/dL (32.0-37.0); MCV 94.1 FL (80.0-97.0); Mean Platelet Volume 9.9 FL (9.5-12.2); Monocytes # (A) 0.29 X 10*3/uL (0.20-1.00); Monocytes % (A) 1.5 %; NRBC Per 100 WBC 0 X 10*3/uL (0.00-0.01); Neutrophils # (A) 17.63 X 10*3/uL (1.80-7.70); Neutrophils % (A) 90.8 %; Platelet Count 307 X 10*3/uL (140-440); WBC 19.41 X 10*3/uL (4.50-10.00)
[2024-04-06 11:05] LABS: ALT 21 U/L (8-44); AST 14 U/L (13-35); Albumin 2.3 g/dL (3.8-4.9); Albumin/Globulin Ratio 1.35 Ratio (1.60-3.17); Alkaline Phosphatase 195 U/L (41-126); Blood Urea Nitrogen 15.9 mg/dL (9.0-27.0); Calcium 7.6 mg/dL (8.7-10.3); Carbon Dioxide 28.7 mmol/L (21.6-31.8); Chloride 103 mmol/L (96-109); Globulin 1.7 g/dL (1.6-3.3); Glucose 103 mg/dL (70-110); Potassium 3.6 mmol/L (3.5-5.5); Sodium 138 mmol/L (135-145); Total Bilirubin <0.2 mg/dL (0.3-1.2)
[2024-04-06 11:13] LABS: Glucose,Whole Blood 127 mg/dL (70-110)
--- NOTE | 2024-04-06 12:13 | P.PN ---
Subjective Progress Note Date: 04/06/24 64-year-old female patient, known to us, the patient was treated in the hospital when she had a prolonged hospitalization from 01/30/2024 and she was discharged on 03/24/2024 to be readmitted to hospital on 03/29/2024 with worsening shortness of breath and respiratory failure. The patient was seen in emergency department. The patient is a significant respiratory distress and the patient is currently on a BiPAP at a pressure of 12 over 5 cm of water and FiO2 of 50%. Her current respiratory rate is in the low 30s. Blood pressure is stable. The patient is extremely lethargic, weak, has chronic wounds in her lower extremities bilaterally, has an indwelling Horn catheter which was [facility] at the [facility] she has not she is nonambulatory status in right foot is extremely cloudy with significant amount of debris's and some purulence. Chest x-ray was emergency department and it shows an extensive area of consolidation involving the left lung along with some small bilateral pleural effusions and background COPD. The patient was given Zithromax and Zosyn. ICU consultation was requested This patient is known to have advanced COPD. During her last hospitalization, the patient was in acute hypoxic respiratory failure requiring intubation mechanical ventilation and he was ultimately extubated on 03/17/2024. During the course of her illness, she was bronchoscope and the sputum sample on 03/13/2024 and 03/14/2024 was positive for haemophilus influenza and she was treated accordingly. She was also diagnosed having a right upper lobe pulmonary embolism treated with anticoagulation with Eliquis. During the course of her illness, the patient had systemic candidemia and the blood cultures was on 02/11/2024 was positive for Sarah albicans and the bronchial washings also showed Sarah glabrata. Urine culture was also positive for Sarah. The patient was given IV Diflucan and she completed the course of antifungal treatment. Her echocardiogram showed no evidence of any vegetation and her left-ventricular ejection fraction was essentially within normal limits. Infection and a hyperdynamic heart with an EF of around 70 to 75%. No significant valvular abnormalities. Her current labs show a white cell count of 22.3 which has been elevated since her discharge from the hospital, hemoglobin 11.7 and platelet count is 407, serum bicarbonate 30 and sodium levels of 134, BUN is 22 with a creatinine of 0.25. LFTs are within normal limits. Most recent procalcitonin level from 03/24/2024 was at 0.08. Blood cultures have been sent. On 03/30/2024, the patient was taken off the BiPAP and the patient has been transitioned to oxygen at 3 L/min nasal cannula. No new complaints. Chest x- ray findings are essentially unchanged. The patient has stable right basilar and left midlung consolidation and bilateral pleural effusions. Nevertheless, she seems to be much more comfortable. She continues to have a congested cough and she is on a broad-spectrum antibiotics and the patient is currently on a combination of cefepime, vancomycin and voriconazole. Awaiting follow-up cul tures on this patient. The white cell count is down to 18 with a hemoglobin 10.3 and a platelet count of 350. Electrolytes are stable with a BUN of 25 and a creatinine of 0.2. Procalcitonin level is at 0.57. She is weak yet awake and alert. Communicating. She has chronic wounds in lower extremities and some ongoing +1 edema lower extremities bilaterally. Moving all 4 extremities other than limitation. No altered mentation at this point in time. On 03/31/2024, the patient is stable. The patient remains on 40 Suboxone by nasal cannula. The patient does receive with IV Lasix and she is in a negative fluid balance of 1.8 L over the past 24 hours. Meanwhile, chest x-ray from today shows stable bilateral pulm infiltrates. The patient remains on the same antibiotic coverage includes cefepime, vancomycin and voriconazole. Blood cultures are still negative. The white cell count of 19 with a hemoglobin 10.7 and platelet count of 383. BUN is 23 with a creatinine 0.3. Sodium level is at 137. The patient continues to have wound care to lower extremities. Awake and alert and communicating. Remains on bronchodilators. Remains on steroids. Remains on Levemir insulin for blood sugar control at 15 units at bedtime and a sliding scale coverage. No other significant events overnight. The patient is being seen for a follow-up. The patient is doing well. No specific complaints. Continues to diurese. Blood cultures are negative the patient remains on the same antibiotic coverage. The white cell count from today is at 23 with a hemoglobin of 10 and a platelet count of 334. Electrolytes are all stable with a BUN of 19 and a creatinine of 0.3. Sodium levels at 141. No other significant events overnight. She is currently on oxygen at 4 L/min nasal cannula. 04/02/2024, the patient is doing well. She continues B12 with Lasix and the patient is -2.9 L over the past 24 hours. Edema is improving. Meanwhile, repeat chest x-ray was done and the pulmonary findings are essentially stable. The white cell count from yesterday was 23 and awaiting follow-up labs from to day. Renal function is also stable from yesterday. The patient remains on IV Lasix. The patient remains on cefepime vancomycin and voriconazole. Cultures are negative thus far. No interval worsening shortness of breath. No new findings or new complaints for now. She remains stable on 4 L of oxygen by nasal cannula. The patient is seen today April 03, 2024 in follow-up on the regular medical floor. She is currently sitting up in bed. Awake and alert in no acute distress. She is maintaining O2 saturations in the 90s on 4 L/min per nasal cannula. She has been refusing BiPAP support at night. She has been refusing to get up out of bed. She does have a wound on her coccyx. She is having some issues with diarrhea. Chest x-ray reveals left perihilar and right lower lobe infiltrates. She remains on cefepime and voriconazole. She denies any shortness of breath, cough or congestion. No fever or chills. 7. Bicarb 30. BUN 23. Creatinine 0.19. Glucose 84. She is continued on inhalations, Pulmicort and Perforomist inhalations, Solu-Medrol. The patient is seen today April 04, 2024 in follow-up on the regular medical floor. She is awake and alert in no acute distress. She continues to be reluctant to move about or get up out of bed or even have staff change her when she has had a bowel movement. She does have an unstageable ulcer on her sacrum and multiple nonhealing ulcers of the bilateral lower extremities with fat layer exposure that is being followed by wound center's nurse practitioner. Glucose 90. She is continued on DuoNeb inhalations, Pulmicort and Perforomist inhalations, prednisone. The patient is seen today April 05, 2024 in follow-up on the regular medical floor. She is sitting up in bed. Awake and alert in no acute distress. Maintaining O2 saturations in the 90s on 4 L/min per nasal cannula. She is continued on DuoNeb inhalations, Symbicort, prednisone taper. Currently on Omnicef and voriconazole. Remains on diuretics. Glucose 205. C. difficile screen was negative. The patient is seen today April 06, 2024 in follow-up on the regular medical floor. She is awake and alert in no acute distress. Resting comfortably in bed. Denies any worsening shortness of breath, cough or congestion. Maintaining O2 saturations in the 90s up to 100% on 4 L/min per nasal cannula. She is afebrile. Hemodynamically stable. She is being followed by the wound center for an unstageable pressure ulcer on her sacrum and lower extremity ulcerations and inflammation. And voriconazole. She remains on DuoNeb inhalations, Symbicort, prednisone taper. Lovenox for DVT prophylaxis. Remains on oral diuretics. Globin 10.4. Platelets 307. Sodium 138. Potassium 3.6. Bicarb 29. BUN 16. Creatinine 0.2. Glucose 103. Objective - Vital Signs Vital signs: Vital Signs Temp 98.4 F 04/06/24 08:00 Pulse 76 04/06/24 08:34 Resp 16 04/06/24 08:00 BP 161/82 04/06/24 08:00 Pulse Ox 100 04/06/24 08:00 FiO2 50 04/03/24 01:06 Intake & Output 04/05/24 04/06/24 04/06/24 18:59 06:59 18:59 Output Total 1500 500 Balance -1500 -500 Output: Urine 1500 500 Other: Voiding Method Indwelling Catheter Indwelling Catheter # Bowel Movements 1 2 - Exam GENERAL EXAM: Awake, alert 64-year-old female, on 4 L of oxygen by nasal cannula. HEAD: Normocephalic and atraumatic EYES: Normal reaction of pupils, equal size. NOSE: Clear with pink turbinates. THROAT: No erythema or exudates. NECK: No masses, no JVD. CHEST: No chest wall deformity. LUNGS: Diminished breath sounds at the bases with few scattered rhonchi and crackles. CVS: Distant S1-S2, no S3 gallop, no murmur. ABDOMEN: Soft nontender no megaly no rebound no guarding. Bowel sounds. SKIN: Unstageable pressure injury on the sacrum. Bilateral lower extremity wounds. Multiple superficial ulcerations noted in both lower extremities. No active drainage. The wound bases are essentially clean at this point and most of the wounds are present over the chavez bilaterally and various sizes and shapes. Pulses in lower extremities present. There are some edema in her ankles bilaterally and some edema in the upper extremities bilaterally. CENTRAL NERVOUS SYSTEM: Alert and oriented x 3, no gross focal neurologic deficit, moving all 4 extremities other than limitation. Generalized muscle weakness in all 4 extremities. EXTREMITIES: Bipedal edema with multiple superficial skin lesions/ulcerations noted bilaterally - Labs CBC & Chem 7: 04/06/24 06:49 04/06/24 06:49 Labs: Abnormal Lab Results - Last 24 Hours (Table) 04/05/24 04/05/24 04/05/24 Range/Units 14:15 16:26 21:12 WBC (4.50-10.00) X 10*3/uL RBC (4.10-5.20) X 10*6/uL Hgb (12.0-15.0) g/dL Hct (37.2-46.3) % RDW (11.5-14.5) % Immature Gran # (0.00-0.04) X 10*3/uL Neutrophils # (1.80-7.70) X 10*3/uL Creatinine (0.6-1.5) mg/dL POC Glucose (mg/dL) 205 H 248 H 333 H (70-110) mg/dL Calcium (8.7-10.3) mg/dL Total Bilirubin (0.3-1.2) mg/dL Alkaline Phosphatase (41-126) U/L Total Protein (6.2-8.2) g/dL Albumin (3.8-4.9) g/dL Albumin/Globulin Ratio (1.60-3.17) Ratio 04/06/24 04/06/24 04/06/24 Range/Units 06:49 06:49 11:11 WBC 19.41 H (4.50-10.00) X 10*3/uL RBC 3.40 L (4.10-5.20) X 10*6/uL Hgb 10.4 L (12.0-15.0) g/dL Hct 32.0 L (37.2-46.3) % RDW 16.0 H (11.5-14.5) % Immature Gran # 0.16 H (0.00-0.04) X 10*3/uL Neutrophils # 17.63 H (1.80-7.70) X 10*3/uL Creatinine <0.2 L (0.6-1.5) mg/dL POC Glucose (mg/dL) 127 H (70-110) mg/dL Calcium 7.6 L (8.7-10.3) mg/dL Total Bilirubin <0.2 L (0.3-1.2) mg/dL Alkaline Phosphatase 195 H (41-126) U/L Total Protein 4.0 L (6.2-8.2) g/dL Albumin 2.3 L (3.8-4.9) g/dL Albumin/Globulin Ratio 1.35 L (1.60-3.17) Ratio Assessment and Plan Assessment: Acute hypoxic respiratory failure requiring BiPAP support, secondary to acute multifocal pneumonia, the patient developed new infiltration of the lungs more extensive on the left, consider the possibility of healthcare associated pneumonia. The patient is improved and stable. On 4 L of oxygen by nasal cannula. Chest x-ray findings are showing stable bilateral pulmonary consolidation left more than right. Previous history of multifocal pneumonia, secondary to Haemophilus influenzae, diagnosed via bronchoscopy and BAL COPD Known history of a right upper lobe pulmonary embolism, CT angiogram this admission on March 29, 2024 revealed no evidence of pulmonary embolism. Resolution of previously seen pulmonary embolism. History of systemic candidemia, completed a course of Diflucan. The patient was also being given voriconazole on outpatient basis. Most recent positive blood culture was done 02/11/2024. The patient also had Sarah in her urine on 01/29/2024) and Sarah glabrata in the sputum on 03/14/2024. Chronic urinary retention with indwelling Horn catheter, rule out recurrent infection History of constipation status post decompressive sigmoidoscopy during her previous hospitalization Type 2 diabetes, maintained on insulin Benign essential hypertension Dyslipidemia Severe protein calorie malnutrition Chronic unstageable decubitus pressure ulcer and multiple skin ulcerations involving both lower extremities Plan: The patient was seen and evaluated Medications and labs reviewed Continue DuoNeb inhalations, Symbicort, Prednisone Titrate down the FiO2 as tolerated Sacral and lower extremity wounds being addressed by the wound center Antibiotics per ID service, currently on Omnicef The patient needs increased encouragement to participate with therapies Plan is to return to [facility] for subacute rehabilitation This patient was seen independently by the pulmonary nurse practitioner addressing pulmonary issues I have personally seen and examined the patient, performed the documentation and the assessment and plan as written. Number of minutes spent on the visit: 24.
--- NOTE | 2024-04-06 13:43 | PN ---
PROGRESS NOTE Sacral ulcers stage III, right heel pressure ulcer, chronic decubitus ulcer, unstageable. MMODL / IJN: [id number] /
--- NOTE | 2024-04-06 15:43 | P.PN ---
Subjective Progress Note Date: 04/05/24 Principal diagnosis: Reason for follow-up is pneumonia Patient is a 54-year-old female with a past medical history significant for diabetes mellitus hypertension hyperlipidemia PE COPD had recent admission to the hospital treated for pneumonia sputum was positive for H aemophilus influenzae received [facility] and [facility] brought back to the hospital worsening respiratory status and concern for possible pneumonia requiring admission in the ICU. On today's evaluation that is 04/05/2024,the patient remains to be afebrile, patient is on 4 L nasal cannula supplemental oxygen and denies any shortness of breath no chest pain or any worsening cough.Patient denies having any nausea or vomiting, no abdominal pain and diarrhea has slowed down No lab draw today Objective - Vital Signs Vital signs: Vital Signs Temp 98.5 F 04/05/24 07:15 Pulse 102 H 04/05/24 08:55 Resp 20 04/05/24 07:15 BP 132/80 04/05/24 07:15 Pulse Ox 99 04/05/24 08:39 FiO2 50 04/03/24 01:06 Intake & Output 04/04/24 04/05/24 04/05/24 18:59 06:59 18:59 Output Total 1800 800 Balance -1800 -800 Weight 67.8 kg Output: Urine 1800 800 Other: Voiding Method Indwelling Catheter Indwelling Catheter # Bowel Movements 2 1 1 - Exam GENERAL DESCRIPTION: Middle-age female lying in bed in no distress RESPIRATORY SYSTEM: Unlabored breathing , decreased breath sounds at bases HEART: S1 S2 regular rate and rhythm , ABDOMEN: Soft , no tenderness EXTREMITIES: No edema feet - Labs CBC & Chem 7: 04/06/24 06:49 04/06/24 06:49 Labs: Abnormal Lab Results - Last 24 Hours (Table) 04/04/24 04/04/24 04/04/24 Range/Units 11:25 16:48 20:44 POC Glucose (mg/dL) 229 H 264 H 220 H (70-110) mg/dL 04/05/24 Range/Units 06:11 POC Glucose (mg/dL) 237 H (70-110) mg/dL Assessment and Plan (1) Leukocytosis Current Visit: Yes Status: Acute Code(s): D72.829 - ELEVATED WHITE BLOOD CELL COUNT, UNSPECIFIED SNOMED Code(s): 323125740 (2) Pneumonia Current Visit: Yes Status: Acute Code(s): J18.9 - PNEUMONIA, UNSPECIFIED ORGANISM SNOMED Code(s): 007620662 Plan: 1patient was in the hospital with sepsis in this patient who did have a le ukocytosis tachycardia hypoxemia admitted currently for SIRS/sepsis source likely pneumonia concern for possible gram-negative versus gram-positive recently treated for Haemophilus influenzae pneumonia 2 blood culture remains to be negative, urine for Legionella antigen currently pending procalcitonin was mildly elevated 0.57 on the patient nasal screen MRSA has been negative 3-patient remains to be afebrile patient, stool for C. difficile is negative to continue Questran as needed 4patient to continue with Omnicef and monitor clinical course closely Dictation was produced using [employer] dictation software. please excuse any grammatical, word or spelling errors. Time with Patient: Less than 30
--- NOTE | 2024-04-06 15:45 | P.PN ---
Subjective Progress Note Date: 04/06/24 Principal diagnosis: Reason for follow-up is pneumonia Patient is a 54-year-old female with a past medical history significant for diabetes mellitus hypertension hyperlipidemia PE COPD had recent admission to the hospital treated for pneumonia sputum was positive for H aemophilus influenzae received IV and oral antibioticssent to the retirement brought back to the hospital worsening respiratory status and concern for possible pneumonia requiring admission in the ICU. On today's evaluation that is 04/06/2024, the patient continues to be afebrile, the patient is on 4 L current oxygen and breathing comfortably, the Pt denies having any chest pain or any worsening cough, the patient denies having any abdominal pain no vomiting or any diarrhea has been reported by the nursing staff. Patient white count is up to 19.41 with a creatinine of less than 0.2 Objective - Vital Signs Vital signs: Vital Signs Temp 98.5 F 04/06/24 14:00 Pulse 90 04/06/24 15:35 Resp 17 04/06/24 14:00 BP 136/79 04/06/24 14:00 Pulse Ox 99 04/06/24 14:00 FiO2 50 04/03/24 01:06 Intake & Output 04/05/24 04/06/24 04/06/24 18:59 06:59 18:59 Output Total 1500 500 Balance -1500 -500 Output: Urine 1500 500 Other: Voiding Method Indwelling Catheter Indwelling Catheter Indwelling Catheter # Bowel Movements 1 2 - Exam GENERAL DESCRIPTION: Middle-age female lying in bed in no distress RESPIRATORY SYSTEM: Unlabored breathing , decreased breath sounds at bases HEART: S1 S2 regular rate and rhythm , ABDOMEN: Soft , no tenderness EXTREMITIES: No edema feet - Labs CBC & Chem 7: 04/06/24 06:49 04/06/24 06:49 Labs: Abnormal Lab Results - Last 24 Hours (Table) 04/05/24 04/05/24 04/06/24 Range/Units 16:26 21:12 06:49 WBC 19.41 H (4.50-10.00) X 10*3/uL RBC 3.40 L (4.10-5.20) X 10*6/uL Hgb 10.4 L (12.0-15.0) g/dL Hct 32.0 L (37.2-46.3) % RDW 16.0 H (11.5-14.5) % Immature Gran # 0.16 H (0.00-0.04) X 10*3/uL Neutrophils # 17.63 H (1.80-7.70) X 10*3/uL Creatinine (0.6-1.5) mg/dL POC Glucose (mg/dL) 248 H 333 H (70-110) mg/dL Calcium (8.7-10.3) mg/dL Total Bilirubin (0.3-1.2) mg/dL Alkaline Phosphatase (41-126) U/L Total Protein (6.2-8.2) g/dL Albumin (3.8-4.9) g/dL Albumin/Globulin Ratio (1.60-3.17) Ratio 04/06/24 04/06/24 Range/Units 06:49 11:11 WBC (4.50-10.00) X 10*3/uL RBC (4.10-5.20) X 10*6/uL Hgb (12.0-15.0) g/dL Hct (37.2-46.3) % RDW (11.5-14.5) % Immature Gran # (0.00-0.04) X 10*3/uL Neutrophils # (1.80-7.70) X 10*3/uL Creatinine <0.2 L (0.6-1.5) mg/dL POC Glucose (mg/dL) 127 H (70-110) mg/dL Calcium 7.6 L (8.7-10.3) mg/dL Total Bilirubin <0.2 L (0.3-1.2) mg/dL Alkaline Phosphatase 195 H (41-126) U/L Total Protein 4.0 L (6.2-8.2) g/dL Albumin 2.3 L (3.8-4.9) g/dL Albumin/Globulin Ratio 1.35 L (1.60-3.17) Ratio Assessment and Plan (1) Leukocytosis Current Visit: Yes Status: Acute Code(s): D72.829 - ELEVATED WHITE BLOOD CELL COUNT, UNSPECIFIED SNOMED Code(s): 339731372 (2) Pneumonia Current Visit: Yes Status: Acute Code(s): J18.9 - PNEUMONIA, UNSPECIFIED ORGANISM SNOMED Code(s): 174508243 Plan: 1patient was in the hospital with sepsis in this patient who did have a leukocytosis tachycardia hypoxemia admitted currently for SIRS/sepsis source likely pneumonia concern for possible gram-negative versus gram-positive r ecently treated for Haemophilus influenzae pneumonia 2 blood culture remains to be negative, urine for Legionella antigen currently pending procalcitonin was mildly elevated 0.57 on the patient nasal screen MRSA has been negative 3-patient remains to be afebrile patient, stool for C. difficile is negative to continue Questran as needed 4patient did have clinical improvement however noticed to have worsening of the white count patient is covered with the Ceftin and voriconazole, will repeat CBC and inflammatory markers with a.m. lab Dictation was produced using [employer] dictation software. please excuse any grammatical, word or spelling errors. Time with Patient: Less than 30
[2024-04-06 16:31] LABS: Glucose,Whole Blood 339 mg/dL (70-110)
[2024-04-06 19:57] LABS: Glucose,Whole Blood 276 mg/dL (70-110)
[2024-04-07 05:35] LABS: Glucose,Whole Blood 291 mg/dL (70-110)
[2024-04-07 09:07] LABS: ALT 21 U/L (8-44); AST 17 U/L (13-35); Albumin 2.3 g/dL (3.8-4.9); Albumin/Globulin Ratio 1.35 Ratio (1.60-3.17); Alkaline Phosphatase 216 U/L (41-126); Blood Urea Nitrogen 16.8 mg/dL (9.0-27.0); Calcium 7.4 mg/dL (8.7-10.3); Carbon Dioxide 27.2 mmol/L (21.6-31.8); Chloride 102 mmol/L (96-109); Globulin 1.7 g/dL (1.6-3.3); Glucose 304 mg/dL (70-110); Potassium 3.9 mmol/L (3.5-5.5); Sodium 137 mmol/L (135-145); Total Bilirubin <0.2 mg/dL (0.3-1.2)
[2024-04-07 09:41] LABS: Basophils # (A) 0.05 X 10*3/uL (0.00-0.10); Basophils % (A) 0.2 %; Eosinophils # (A) 0.15 X 10*3/uL (0.04-0.35); Eosinophils % (A) 0.7 %; HCT 31.3 % (37.2-46.3); Lymphocytes # (A) 0.93 X 10*3/uL (0.90-5.00); Lymphocytes % (A) 4.2 %; MCH 30.6 pg (27.0-32.0); MCHC 31.9 g/dL (32.0-37.0); MCV 95.7 FL (80.0-97.0); Mean Platelet Volume 10.2 FL (9.5-12.2); Monocytes # (A) 0.39 X 10*3/uL (0.20-1.00); Monocytes % (A) 1.7 %; NRBC Per 100 WBC 0 X 10*3/uL (0.00-0.01); Neutrophils # (A) 20.54 X 10*3/uL (1.80-7.70); Neutrophils % (A) 92.1 %; Platelet Count 337 X 10*3/uL (140-440); RBC 3.27 X 10*6/uL (4.10-5.20); RDW 16.1 % (11.5-14.5); WBC 22.31 X 10*3/uL (4.50-10.00)
--- NOTE | 2024-04-07 11:43 | P.PN ---
Subjective Progress Note Date: 04/07/24 64-year-old female patient, known to us, the patient was treated in the hospital when she had a prolonged hospitalization from 01/30/2024 and she was discharged on 03/24/2024 to be readmitted to hospital on 03/29/2024 with worsening shortness of breath and respiratory failure. The patient was seen in emergency department. The patient is a significant respiratory distress and the patient is currently on a BiPAP at a pressure of 12 over 5 cm of water and FiO2 of 50%. Her current respiratory rate is in the low 30s. Blood pressure is stable. The patient is extremely lethargic, weak, has chronic wounds in her lower extremities bilaterally, has an indwelling Horn catheter which was present at the [facility] she has not she is nonambulatory status in right foot is extremely cloudy with significant amount of debris's and some purulence. Chest x-ray was emergency department and it shows an extensive area of consolidation involving the left lung along with some small bilateral pleural effusions and background COPD. The patient was given Zithromax and Zosyn. ICU consultation was requested This patient is known to have advanced COPD. During her last hospitalization, the patient was in acute hypoxic respiratory failure requiring intubation mechanical ventilation and he was ultimately extubated on 03/17/2024. During the course of her illness, she was bronchoscope and the sputum sample on 03/13/2024 and 03/14/2024 was positive for haemophilus influenza and she was treated accordingly. She was also diagnosed having a right upper lobe pulmonary embolism treated with anticoagulation with Eliquis. During the course of her illness, the patient had systemic candidemia and the blood cultures was on 02/11/2024 was positive for Sarah albicans and the bronchial washings also showed Sarah glabrata. Urine culture was also positive for Sarah. The patient was given IV Diflucan and she completed the course of antifungal treatment. Her echocardiogram showed no evidence of any vegetation and her left-ventricular ejection fraction was essentially within normal limits. Infection and a hyperdynamic heart with an EF of around 70 to 75%. No significant valvular abnormalities. Her current labs show a white cell count of 22.3 which has been elevated since her discharge from the hospital, hemoglobin 11.7 and platelet count is 407, serum bicarbonate 30 and sodium levels of 134, BUN is 22 with a creatinine of 0.25. LFTs are within normal limits. Most recent procalcitonin level from 03/24/2024 was at 0.08. Blood cultures have been sent. On 03/30/2024, the patient was taken off the BiPAP and the patient has been transitioned to oxygen at 3 L/min nasal cannula. No new complaints. Chest x- ray findings are essentially unchanged. The patient has stable right basilar and left midlung consolidation and bilateral pleural effusions. Nevertheless, she seems to be much more comfortable. She continues to have a congested cough and she is on a broad-spectrum antibiotics and the patient is currently on a combination of cefepime, vancomycin and voriconazole. Awaiting follow-up cul tures on this patient. The white cell count is down to 18 with a hemoglobin 10.3 and a platelet count of 350. Electrolytes are stable with a BUN of 25 and a creatinine of 0.2. Procalcitonin level is at 0.57. She is weak yet awake and alert. Communicating. She has chronic wounds in lower extremities and some ongoing +1 edema lower extremities bilaterally. Moving all 4 extremities other than limitation. No altered mentation at this point in time. On 03/31/2024, the patient is stable. The patient remains on 40 Suboxone by nasal cannula. The patient does receive with IV Lasix and she is in a negative fluid balance of 1.8 L over the past 24 hours. Meanwhile, chest x-ray from today shows stable bilateral pulm infiltrates. The patient remains on the same antibiotic coverage includes cefepime, vancomycin and voriconazole. Blood cultures are still negative. The white cell count of 19 with a hemoglobin 10.7 and platelet count of 383. BUN is 23 with a creatinine 0.3. Sodium level is at 137. The patient continues to have wound care to lower extremities. Awake and alert and communicating. Remains on bronchodilators. Remains on steroids. Remains on Levemir insulin for blood sugar control at 15 units at bedtime and a sliding scale coverage. No other significant events overnight. The patient is being seen for a follow-up. The patient is doing well. No specific complaints. Continues to diurese. Blood cultures are negative the patient remains on the same antibiotic coverage. The white cell count from today is at 23 with a hemoglobin of 10 and a platelet count of 334. Electrolytes are all stable with a BUN of 19 and a creatinine of 0.3. Sodium levels at 141. No other significant events overnight. She is currently on oxygen at 4 L/min nasal cannula. 04/02/2024, the patient is doing well. She continues B12 with Lasix and the patient is -2.9 L over the past 24 hours. Edema is improving. Meanwhile, repeat chest x-ray was done and the pulmonary findings are essentially stable. The white cell count from yesterday was 23 and awaiting follow-up labs from to day. Renal function is also stable from yesterday. The patient remains on IV Lasix. The patient remains on cefepime vancomycin and voriconazole. Cultures are negative thus far. No interval worsening shortness of breath. No new findings or new complaints for now. She remains stable on 4 L of oxygen by nasal cannula. The patient is seen today April 03, 2024 in follow-up on the regular medical floor. She is currently sitting up in bed. Awake and alert in no acute distress. She is maintaining O2 saturations in the 90s on 4 L/min per nasal cannula. She has been refusing BiPAP support at night. She has been refusing to get up out of bed. She does have a wound on her coccyx. She is having some issues with diarrhea. Chest x-ray reveals left perihilar and right lower lobe infiltrates. She remains on cefepime and voriconazole. She denies any shortness of breath, cough or congestion. No fever or chills. 7. Bicarb 30. BUN 23. Creatinine 0.19. Glucose 84. She is continued on inhalations, Pulmicort and Perforomist inhalations, Solu-Medrol. The patient is seen today April 04, 2024 in follow-up on the regular medical floor. She is awake and alert in no acute distress. She continues to be reluctant to move about or get up out of bed or even have staff change her when she has had a bowel movement. She does have an unstageable ulcer on her sacrum and multiple nonhealing ulcers of the bilateral lower extremities with fat layer exposure that is being followed by wound center's nurse practitioner. Glucose 90. She is continued on DuoNeb inhalations, Pulmicort and Perforomist inhalations, prednisone. The patient is seen today April 05, 2024 in follow-up on the regular medical floor. She is sitting up in bed. Awake and alert in no acute distress. Maintaining O2 saturations in the 90s on 4 L/min per nasal cannula. She is continued on DuoNeb inhalations, Symbicort, prednisone taper. Currently on Omnicef and voriconazole. Remains on diuretics. Glucose 205. C. difficile screen was negative. The patient is seen today April 06, 2024 in follow-up on the regular medical floor. She is awake and alert in no acute distress. Resting comfortably in bed. Denies any worsening shortness of breath, cough or congestion. Maintaining O2 saturations in the 90s up to 100% on 4 L/min per nasal cannula. She is afebrile. Hemodynamically stable. She is being followed by the wound center for an unstageable pressure ulcer on her sacrum and lower extremity ulcerations and inflammation. And voriconazole. She remains on DuoNeb inhalations, Symbicort, prednisone taper. Lovenox for DVT prophylaxis. Remains on oral diuretics. Globin 10.4. Platelets 307. Sodium 138. Potassium 3.6. Bicarb 29. BUN 16. Creatinine 0.2. Glucose 103. The patient is seen today April 07, 2024 in follow-up on the regular medical floor. She is resting comfortably in bed. Awake and alert in no acute distress. Denies any worsening shortness of breath, cough or congestion. She i s maintaining good O2 saturations in the upper 90s on 3 L/min per nasal cannula. She has been afebrile. Hemodynamically stable. White count 22.3. Hemoglobin 10.0. Platelets 337. Sodium 137. Potassium 3.9. Bicarb 27. BUN 17. Creatinine 0.2. Glucose 304. AST 17. ALT 21. She is continued on DuoNeb inhalations, Symbicort. Lovenox for DVT prophylaxis. Prednisone taper. Antibiotics in the form of Omnicef. Remains on oral diuretics. Currently in a -1.1 L balance. Objective - Vital Signs Vital signs: Vital Signs Temp 97.9 F 04/07/24 08:00 Pulse 92 04/07/24 08:00 Resp 14 04/07/24 08:00 BP 145/82 04/07/24 08:00 Pulse Ox 97 04/07/24 08:28 FiO2 50 04/03/24 01:06 Intake & Output 04/06/24 04/07/2404/07/24 18:59 06:59 18:59 Intake Total 120 Output Total 1100 725 Balance -1100 -605 Intake: Oral 120 Output: Urine 1100 725 Other: Voiding Method Indwelling Catheter Indwelling Catheter # Voids 0 # Bowel Movements 1 - Exam GENERAL EXAM: Awake, alert 64-year-old female, resting comfortably in bed, on 4 L of oxygen by nasal cannula. HEAD: Normocephalic and atraumatic EYES: Normal reaction of pupils, equal size. NOSE: Clear with pink turbinates. THROAT: No erythema or exudates. NECK: No masses, no JVD. CHEST: No chest wall deformity. LUNGS: Diminished breath sounds at the bases with few scattered rhonchi and crackles. CVS: Distant S1-S2, no S3 gallop, no murmur. ABDOMEN: Soft nontender no megaly no rebound no guarding. Bowel sounds. SKIN: Unstageable pressure injury on the sacrum. Bilateral lower extremity wounds. Multiple superficial ulcerations noted in both lower extremities. No active drainage. The wound bases are essentially clean at this point and most of the wounds are present over the chavez bilaterally and various sizes and shapes. Pulses in lower extremities present. There are some edema in her ankles bilaterally and some edema in the upper extremities bilaterally. CENTRAL NERVOUS SYSTEM: Alert and oriented x 3, no gross focal neurologic deficit, moving all 4 extremities other than limitation. Generalized muscle weakness in all 4 extremities. EXTREMITIES: Bipedal edema with multiple superficial skin lesions/ulcerations noted bilaterally - Labs CBC & Chem 7: 04/07/24 06:11 04/07/24 06:11 Labs: Abnormal Lab Results - Last 24 Hours (Table) 04/06/24 04/06/24 04/06/24 Range/Units 06:49 16:29 19:55 WBC (4.50-10.00) X 10*3/uL RBC (4.10-5.20) X 10*6/uL Hgb (12.0-15.0) g/dL Hct (37.2-46.3) % MCHC (32.0-37.0) g/dL RDW (11.5-14.5) % Immature Gran # (0.00-0.04) X 10*3/uL Neutrophils # (1.80-7.70) X 10*3/uL Creatinine (0.6-1.5) mg/dL BUN/Creatinine Ratio (12.00-20.00) Ratio Glucose (70-110) mg/dL POC Glucose (mg/dL) 339 H 276 H (70-110) mg/dL Calcium (8.7-10.3) mg/dL Total Bilirubin (0.3-1.2) mg/dL Alkaline Phosphatase (41-126) U/L C-Reactive Protein (0.00-0.80) mg/dL Total Protein (6.2-8.2) g/dL Albumin (3.8-4.9) g/dL Albumin/Globulin Ratio (1.60-3.17) Ratio Procalcitonin 0.25 H (0.02-0.09) ng/mL 04/07/24 04/07/24 04/07/24 Range/Units 05:33 06:11 06:11 WBC 22.31 H (4.50-10.00) X 10*3/uL RBC 3.27 L (4.10-5.20) X 10*6/uL Hgb 10.0 L (12.0-15.0) g/dL Hct 31.3 L (37.2-46.3) % MCHC 31.9 L (32.0-37.0) g/dL RDW 16.1 H (11.5-14.5) % Immature Gran # 0.25 H (0.00-0.04) X 10*3/uL Neutrophils # 20.54 H (1.80-7.70) X 10*3/uL Creatinine 0.2 L (0.6-1.5) mg/dL BUN/Creatinine Ratio 84.00 H (12.00-20.00) Ratio Glucose 304 H (70-110) mg/dL POC Glucose (mg/dL) 291 H (70-110) mg/dL Calcium 7.4 L (8.7-10.3) mg/dL Total Bilirubin <0.2 L (0.3-1.2) mg/dL Alkaline Phosphatase 216 H (41-126) U/L C-Reactive Protein 1.40 H (0.00-0.80) mg/dL Total Protein 4.0 L (6.2-8.2) g/dL Albumin 2.3 L (3.8-4.9) g/dL Albumin/Globulin Ratio 1.35 L (1.60-3.17) Ratio Procalcitonin (0.02-0.09) ng/mL Assessment and Plan Assessment: Acute hypoxic respiratory failure requiring BiPAP support, secondary to acute multifocal pneumonia, the patient developed new infiltration of the lungs more extensive on the left, consider the possibility of healthcare associated pneumonia. The patient is improved and stable. On 3 L of oxygen by nasal cannula. Chest x-ray findings are showing stable bilateral pulmonary consolidation left more than right. Remains on Omnicef Previous history of multifocal pneumonia, secondary to Haemophilus influenzae, diagnosed via bronchoscopy and BAL COPD Known history of a right upper lobe pulmonary embolism, CT angiogram this admission on March 29, 2024 revealed no evidence of pulmonary embolism. Resolution of previously seen pulmonary embolism. History of systemic candidemia, completed a course of Diflucan. The patient was also being given voriconazole on outpatient basis. Most recent positive blood culture was done 02/11/2024. The patient also had Sarah in her urine on 01/29/2024) and Sarah glabrata in the sputum on 03/14/2024. Chronic urinary retention with indwelling Horn catheter, rule out recurrent infection History of constipation status post decompressive sigmoidoscopy during her previous hospitalization Type 2 diabetes, maintained on insulin Benign essential hypertension Dyslipidemia Severe protein calorie malnutrition Chronic unstageable decubitus pressure ulcer and multiple skin ulcerations involving both lower extremities Plan: The patient was seen and evaluated Medications and labs reviewed Continue the current treatment plan Titrate down the FiO2 as tolerated Needs increased encouragement to participate with therapies Plan is to return to [facility] pending authorization This patient was seen independently by the pulmonary nurse practitioner addressing pulmonary issues I have personally seen and examined the patient, performed the documentation and the assessment and plan as written. Number of minutes spent on the visit: 23.
[2024-04-07 11:51] LABS: Glucose,Whole Blood 108 mg/dL (70-110)
--- NOTE | 2024-04-07 12:04 | P.CNOR ---
History of Present Illness - [facility] Consult date: 04/07/24 Consult reason: other (Lower extremity weakness) History of present illness: Patient is a 64-year-old female with a very complex medical history. Patient has been admitted to [facility] on a few different occasions since January 2024 where she has spent a lengthy time in the hospital with regards t o respiratory failure and exacerbations of her COPD. Patient has multiple chronic wounds involving the bilateral lower extremities and a coccyx wound. Patient has been in this hospital since 03/29/2024. She has been followed by multiple medical specialties. Our orthopedic team was consulted today with regards to lower extremity weakness. Patient was evaluated today at bedside, she is resting comfortably in her hospital bed, she appears to be in no acute distress. Patient is a very poor historian and does not provide a very accurate history of her medical conditions. She states that over the last few months she has noticed worsening weakness in her bilateral lower extremities. I was able to discuss with therapy, she is a two-person max assist at this time. Patient cannot remember any acute trauma at this time. She states that she was told at some point that she had compression fractures of her thoracic and lumbar spine but cannot provide me with any information regarding what scans in the time. This was done. Patient does have some back pain, it seems to be located more in the area where the coccyx pressure ulcer is located. She denies any numbness or tingling to the bilateral lower extremities. Patient has a urinary catheter that is present for chronic urinary retention. Patient denies any upper extremity symptoms, this to include santos weakness, numbness or tingling or shooting pain. Review of Systems Constitutional: Reports as per HPI Past Medical History Past Medical History: COPD, Diabetes Mellitus, Hyperlipidemia, Hypertension, Pulmonary Embolus (PE) Additional Past Medical History / Comment(s): Chronic wound to the lower extremities, stress fractures L3-L4, L5 fracture, stent placed History of Any Multi-Drug Resistant Organisms: None Reported Past Surgical History: Adenoidectomy, Hysterectomy, Tubal Ligation Additional Past Surgical History / Comment(s): 2 tumors removals Past Anesthesia/Blood Transfusion Reactions: No Reported Reaction Past Psychological History: Anxiety, Depression Smoking Status: Current every day smoker Past Alcohol Use History: None Reported Past Drug Use History: None Reported Medications and Allergies Home Medications Medication Instructions Recorded Confirmed Type Budesonide/Formoterol Fumarate 2 puff INHALATION RT-BID 01/29/24 03/29/24 History [Symbicort 160-4.5 Mcg Inhaler] Escitalopram [Lexapro] 10 mg PO DAILY 01/29/24 03/29/24 History Lactobacillus Rhamnosus GG 1 cap PO BID 01/29/24 03/29/24 History [Culturelle] Melatonin 3 mg PO HS PRN 01/29/24 03/29/24 History Montelukast [Singulair] 10 mg PO HS 01/29/24 03/29/24 History Nicotine 14Mg/24Hr Patch [Habitrol] 1 patch TRANSDERM DAILY 01/29/24 03/29/24 History Budesonide [Pulmicort] 1 mg INHALATION RT-BID ml 02/05/24 03/29/24 Rx Formoterol Fumarate [Perforomist] 20 mcg INHALATION RT-BID ml 02/05/24 03/29/24 Rx Pantoprazole [Protonix] 40 mg PO AC-BID tab 02/05/24 03/29/24 Rx Voriconazole [Vfend] 200 mg PO Q12HR tab 02/05/24 03/29/24 Rx Acetaminophen Tab [Tylenol] 650 mg PO Q4HR PRN tab 02/26/24 03/29/24 Rx Lactulose [Cephulac] 20 gm PO TID 30 Days #90 ml 02/26/24 03/29/24 Rx ALPRAZolam [Xanax] 0.25 mg PO QID tab 03/24/24 03/29/24 Rx Furosemide [Lasix] 20 mg PO DAILY tab 03/24/24 03/29/24 Rx amLODIPine [Norvasc] 5 mg PO DAILY tab 03/24/24 03/29/24 Rx polyethylene glycoL 3350 [Miralax] 17 gm PO DAILY packet 03/24/24 03/29/24 Rx predniSONE [Deltasone] 40 mg PO DAILY tab 03/24/24 03/29/24 Rx Amoxic-Pot Clav 875-125Mg 1 tab PO Q12HR 03/29/24 03/29/24 History [Augmentin 875-125] Apixaban Initiation Dose--VTE See Taper PO BID 03/29/24 03/29/24 History [Eliquis Initiation Dosing for VTE Treatment] Collagenase [Santyl Ointment] 1 applic TOPICAL DIRECTED PRN 03/29/24 03/29/24 History Collagenase [Santyl Ointment] 1 applic TOPICAL DAILY 03/29/24 03/29/24 History HYDROcodone/APAP 5-325MG [Laveen 1 tab PO Q6HR PRN 03/29/24 03/29/24 History 5-325] INSULIN LISPRO (HumaLOG) [humaLOG] 5 units SQ AC-TID 03/29/24 03/29/24 History INSULIN LISPRO (HumaLOG) [humaLOG] See Protocol SQ ACHS 03/29/24 03/29/24 Hist ory Insulin Glargine [Lantus Vial] 15 unit SQ HS 03/29/24 03/29/24 History Ipratropium-Albuterol Nebulize 3 ml INHALATION RT-Q6H 03/29/24 03/29/24 History [Duoneb 0.5 mg-3 mg/3 ml Soln] Magnesium Hydroxide [Milk of 7,200 mg PO DAILY PRN 03/29/24 03/29/24 History Magnesia Concentrate] Na Phos,M-B/Na Phos,Di-Ba [Fleet 133 ml RECTAL DAILY PRN 03/29/24 03/29/24 History Adult] bisacodyL [Dulcolax] 10 mg RECTAL DAILY PRN 03/29/24 03/29/24 History Allergies Allergy/AdvReac Type Severity Reaction Status Date / Time No Known Allergies Allergy Verified 03/29/24 08:55 Physical Examination Gen: AOx3, NAD VSS stable at this time Integument: No open lesions or sores visualized throughout the cervical, thoracic or lumbar spine. There is a bandage present in the coccyx region over the pressure ulcer Palpation: No significant tenderness with palpation appreciated to the midline and paraspinal region of the cervical, thoracic or lumbar spine ROM: Full range of motion in all major muscle groups of the bilateral upper extremities, no focal deficits Range of motion is limited in the left lower extremities, I feel some of this is cooperation issues, she is not able to flex her hips, extend or flex the knees. She is able to wiggle the toes. Sensory Exam: Senory exam to light touch is intact C5-T1 Senosry exam to light touch is intact L2-S1 Motor: 4/5 strength appreciated in the bilateral upper extremities with shoulder elevation, shoulder abduction, wrist extension, wrist flexion, elbow extension, elbow flexion, surgical instrument maker Strength is difficult to assess to the bilateral lower extremities Reflexes: 2/4 in all UE and LE Negative clonus bilaterally Special Test: Negative straight leg raise bilaterally Logroll maneuver of the the bilateral lower extremities reproduces no pain Results - Labs Labs: Abnormal Lab Results - Last 24 Hours (Table) 04/06/24 04/06/24 04/06/24 Range/Units 06:49 16:29 19:55 WBC (4.50-10.00) X 10*3/uL RBC (4.10-5.20) X 10*6/uL Hgb (12.0-15.0) g/dL Hct (37.2-46.3) % MCHC (32.0-37.0) g/dL RDW (11.5-14.5) % Immature Gran # (0.00-0.04) X 10*3/uL Neutrophils # (1.80-7.70) X 10*3/uL Creatinine (0.6-1.5) mg/dL BUN/Creatinine Ratio (12.00-20.00) Ratio Glucose (70-110) mg/dL POC Glucose (mg/dL) 339 H 276 H (70-110) mg/dL Calcium (8.7-10.3) mg/dL Total Bilirubin (0.3-1.2) mg/dL Alkaline Phosphatase (41-126) U/L C-Reactive Protein (0.00-0.80) mg/dL Total Protein (6.2-8.2) g/dL Albumin (3.8-4.9) g/dL Albumin/Globulin Ratio (1.60-3.17) Ratio Procalcitonin 0.25 H (0.02-0.09) ng/mL 04/07/24 04/07/24 04/07/24 Range/Units 05:33 06:11 06:11 WBC 22.31 H (4.50-10.00) X 10*3/uL RBC 3.27 L (4.10-5.20) X 10*6/uL Hgb 10.0 L (12.0-15.0) g/dL Hct 31.3 L (37.2-46.3) % MCHC 31.9 L (32.0-37.0) g/dL RDW 16.1 H (11.5-14.5) % Immature Gran # 0.25 H (0.00-0.04) X 10*3/uL Neutrophils # 20.54 H (1.80-7.70) X 10*3/uL Creatinine 0.2 L (0.6-1.5) mg/dL BUN/Creatinine Ratio 84.00 H (12.00-20.00) Ratio Glucose 304 H (70-110) mg/dL POC Glucose (mg/dL) 291 H (70-110) mg/dL Calcium 7.4 L (8.7-10.3) mg/dL Total Bilirubin <0.2 L (0.3-1.2) mg/dL Alkaline Phosphatase 216 H (41-126) U/L C-Reactive Protein 1.40 H (0.00-0.80) mg/dL Total Protein 4.0 L (6.2-8.2) g/dL Albumin 2.3 L (3.8-4.9) g/dL Albumin/Globulin Ratio 1.35 L (1.60-3.17) Ratio Procalcitonin (0.02-0.09) ng/mL H & H 03/29/24 03/30/24 03/31/24 Range/Units 07:09 03:24 06:42 Hgb 11.5 10.3 L 10.7 L (11.4-16.0) gm/dL Hct 35.5 33.2 L 34.1 (34.0-46.0) % 04/01/24 04/03/24 04/04/24 Range/Units 06:12 04:08 04:01 Hgb 10.0 L 10.5 L 10.1 L (11.4-16.0) gm/dL Hct 30.8 L 32.3 L 30.9 L (34.0-46.0) % 04/06/24 04/07/24 Range/Units 06:49 06:11 Hgb 10.4 L 10.0 L (11.4-16.0) gm/dL Hct 32.0 L 31.3 L (34.0-46.0) % Coagulation 03/29/24 Range/Units 07:09 INR 0.9 (<1.2) Result Diagrams: 04/07/24 06:11 04/07/24 06:11 Assessment and Plan Assessment: Bilateral lower extremity weakness Low back/coccyx pain Coccyx pressure ulcer Multiple bilateral lower extremity chronic wounds Deconditioning COPD Other medical comorbidities Plan: I was able to discuss the case, this to include physical exam findings and imaging studies my attending Dr. Coppola. No emergent orthopedic surgical intervention is warranted at this time Internal medicine has ordered a chest, abdomen, pelvis CT scan, we we will review those images for spine pathology. May consider further imaging studies pending those results Patient is severely deconditioned and her current medical state which is likely contributing to a lot of the lower extremity weakness at this time GI and DVT prophylaxis per primary medical service Continue PT/OT Other medical specialty recommendations appreciated Recommendations to follow Time with Patient: Less than 30
[2024-04-07] MEDS: ACETAMINOPHEN TAB 325 MG TAB PO PRN (12:39)
--- NOTE | 2024-04-07 15:43 | CT ---
EXAMINATION TYPE: CT ChestAbdPelvis wo con DATE OF EXAM: 04/07/2024 COMPARISON: None HISTORY: septic CT DLP: 458.3 mGycm. Automated Exposure Control for Dose Reduction was Utilized. TECHNIQUE: CT scan of the thorax, abdomen and pelvis is performed without IV contrast. FINDINGS: CT chest: Small lower lobe infiltrates and small right effusion and moderate left effusion. The great vessels and chest are normal there is no mediastinal, hilar or axillary adenopathy. No focal osseous lesions are seen. CT abdomen and pelvis: Gallbladder is normal without distention, pericholecystic fluid, wall thickening or gallstone. There is no biliary ductal dilatation. There is no organomegaly involving the visceral organs of the upper abdomen. There is no renal calcification or hydronephrosis. There is no retroperitoneal adenopathy or hemorrhage in the caliber of the abdominal aorta is normal. The bowel loops are normal in caliber and there is no dilatation or obstruction. There is of the moderate ascites. There is no pelvic mass or adenopathy. There is a nonhealed fracture of the right pubic bone. There are healed fractures of the bilateral in ferior pubic rami. There is marked anasarca. IMPRESSION: 1. Bibasilar infiltrates and pleural effusions, left greater than right as described above. 2. Mild to moderate ascites. 3. Marked anasarca. 4. Pelvic fractures as described above.
[2024-04-07] MEDS: metroNIDAZOLE 500 MG TAB PO SCH (16:15)
--- NOTE | 2024-04-07 16:20 | P.PN ---
Subjective Progress Note Date: 04/07/24 Principal diagnosis: Reason for follow-up is pneumonia Patient is a 54-year-old female with a past medical history significant for diabetes mellitus hypertension hyperlipidemia PE COPD had recent admission to the hospital treated for pneumonia sputum was positive for H aemophilus influenzae received IV and oral antibioticssent to the assisted brought back to the hospital worsening respiratory status and concern for possible pneumonia requiring admission in the ICU. On today's evaluation that is 04/07/2024, Patient is afebrile patient is currently on 3 L current oxygen and denies having any shortness of breath, the patient denies any chest pain or any worsening cough, the patient denies any nausea vomiting did not have any abdominal pain did have some diarrhea but no worsening per the nursing staff. Patient white count is 22.31, creatinine 0.2 Objective - Vital Signs Vital signs: Vital Signs Temp 97.9 F 04/07/24 08:00 Pulse 92 04/07/24 08:00 Resp 14 04/07/24 08:00 BP 145/82 04/07/24 08:00 Pulse Ox 97 04/07/24 08:28 FiO2 50 04/03/24 01:06 Intake & Output 04/06/24 04/07/24 04/07/24 18:59 06:59 18:59 Intake Total 120 Output Total 1100 725 Balance -1100 -605 Intake: Oral 120 Output: Urine 1100 725 Other: Voiding Method Indwelling Catheter Indwelling Catheter # Voids 0 # Bowel Movements 1 - Exam GENERAL DESCRIPTION: Middle-age female lying in bed in no distress RESPIRATORY SYSTEM: Unlabored breathing , decreased breath sounds at bases HEART: S1 S2 regular rate and rhythm , ABDOMEN: Soft , no tenderness EXTREMITIES: No edema feet - Labs CBC & Chem 7: 04/07/24 06:11 04/07/24 06:11 Labs: Abnormal Lab Results - Last 24 Hours (Table) 04/06/24 04/06/24 04/06/24 Range/Units 06:49 16:29 19:55 WBC (4.50-10.00) X 10*3/uL RBC (4.10-5.20) X 10*6/uL Hgb (12.0-15.0) g/dL Hct (37.2-46.3) % MCHC (32.0-37.0) g/dL RDW (11.5-14.5) % Immature Gran # (0.00-0.04) X 10*3/uL Neutrophils # (1.80-7.70) X 10*3/uL Creatinine (0.6-1.5) mg/dL BUN/Creatinine Ratio (12.00-20.00) Ratio Glucose (70-110) mg/dL POC Glucose (mg/dL) 339 H 276 H (70-110) mg/dL Calcium (8.7-10.3) mg/dL Total Bilirubin (0.3-1.2) mg/dL Alkaline Phosphatase (41-126) U/L C-Reactive Protein (0.00-0.80) mg/dL Total Protein (6.2-8.2) g/dL Albumin (3.8-4.9) g/dL Albumin/Globulin Ratio (1.60-3.17) Ratio Procalcitonin 0.25 H (0.02-0.09) ng/mL 04/07/24 04/07/24 04/07/24 Range/Units 05:33 06:11 06:11 WBC 22.31 H (4.50-10.00) X 10*3/uL RBC 3.27 L (4.10-5.20) X 10*6/uL Hgb 10.0 L (12.0-15.0) g/dL Hct 31.3 L (37.2-46.3) % MCHC 31.9 L (32.0-37.0) g/dL RDW 16.1 H (11.5-14.5) % Immature Gran # 0.25 H (0.00-0.04) X 10*3/uL Neutrophils # 20.54 H (1.80-7.70) X 10*3/uL Creatinine 0.2 L (0.6-1.5) mg/dL BUN/Creatinine Ratio 84.00 H (12.00-20.00) Ratio Glucose 304 H (70-110) mg/dL POC Glucose (mg/dL) 291 H (70-110) mg/dL Calcium 7.4 L (8.7-10.3) mg/dL Total Bilirubin <0.2 L (0.3-1.2) mg/dL Alkaline Phosphatase 216 H (41-126) U/L C-Reactive Protein 1.40 H (0.00-0.80) mg/dL Total Protein 4.0 L (6.2-8.2) g/dL Albumin 2.3 L (3.8-4.9) g/dL Albumin/Globulin Ratio 1.35 L (1.60-3.17) Ratio Procalcitonin (0.02-0.09) ng/mL Assessment and Plan (1) Leukocytosis Current Visit: Yes Status: Acute Code(s): D72.829 - ELEVATED WHITE BLOOD CELL COUNT, UNSPECIFIED SNOMED Code(s): 436458636 (2) Pneumonia Current Visit: Yes Status: Acute Code(s): J18.9 - PNEUMONIA, UNSPECIFIED ORGANISM SNOMED Code(s): 827291948 Plan: 1patient was in the hospital with sepsis in this patient who did have a leukocytosis tachycardia hypoxemia admitted currently for SIRS/sepsis source likely pneumonia concern for possible gram-negative versus gram-positive recently treated for Haemophilus influenzae pneumonia 2 blood culture remains to be negative, urine for Legionella antigen currently pending procalcitonin was mildly elevated 0.57 on the patient nasal screen MRSA has been negative 3-patient remains to be afebrile patient, stool for C. difficile is negative to continue Questran as needed 4patient did have clinical improvement however noticed to have worsening of the white count CT has been ordered by admitting team we will follow on the results continue with the Omnicef and Flagyl repeat CBC with a.m. lab Dictation was produced using [employer] dictation software. please excuse any grammatical, word or spelling errors. Time with Patient: Less than 30
[2024-04-07 16:51] LABS: Glucose,Whole Blood 154 mg/dL (70-110)
[2024-04-07 20:11] LABS: Glucose,Whole Blood 298 mg/dL (70-110)
[2024-04-07] MEDS ORDERED: ESCITALOPRAM 20 MG TAB PO SCH (22:30)
--- NOTE | 2024-04-07 23:37 | PN ---
PROGRESS NOTE Elevated white count going up to 22,000 with a left shift. Dr. Pathak over the weekend, work her on for sepsis again. She had a CAT scan, which shows some mild lower lobe infiltrates, right effusion, left effusion, marked anasarca, healing fractures, nonhealed fracture of the right pubic bone. Healed fracture of the bilateral inferior pubic rami. Moderate ascites. Moderate anasarca. Pelvic fractures as above. We will check her ammonia level and keep her on Lasix low-dose for anasarca. Prognosis guarded. We will check liver enzymes and ammonia level. Continue with antibiotics. MMODL / IJN: [id number] /
[2024-04-08] MEDS: ESCITALOPRAM 10 MG TAB PO ONE (00:38)
[2024-04-08 06:04] LABS: Glucose,Whole Blood 251 mg/dL (70-110)
[2024-04-08] MEDS: ESCITALOPRAM 20 MG TAB PO SCH (09:43)
--- NOTE | 2024-04-08 10:33 | P.PN ---
Subjective Progress Note Date: 04/08/24 64-year-old female patient, known to us, the patient was treated in the hospital when she had a prolonged hospitalization from 01/30/2024 and she was discharged on 03/24/2024 to be readmitted to hospital on 03/29/2024 with worsening shortness of breath and respiratory failure. The patient was seen in emergency department. The patient is a significant respiratory distress and the patient is currently on a BiPAP at a pressure of 12 over 5 cm of water and FiO2 of 50%. Her current respiratory rate is in the low 30s. Blood pressure is stable. The patient is extremely lethargic, weak, has chronic wounds in her lower extremities bilaterally, has an indwelling Horn catheter which was present at the custodial she has not she is nonambulatory status in right foot is extremely cloudy with significant amount of debris's and some purulence. Chest x-ray was emergency department and it shows an extensive area of consolidation involving the left lung along with some small bilateral pleural effusions and background COPD. The patient was given Zithromax and Zosyn. ICU consultation was requested This patient is known to have advanced COPD. During her last hospitalization, the patient was in acute hypoxic respiratory failure requiring intubation mechanical ventilation and he was ultimately extubated on 03/17/2024. During the course of her illness, she was bronchoscope and the sputum sample on 03/13/2024 and 03/14/2024 was positive for haemophilus influenza and she was treated accordingly. She was also diagnosed having a right upper lobe pulmonary embolism treated with anticoagulation with Eliquis. During the course of her illness, the patient had systemic candidemia and the blood cultures was on 02/11/2024 was positive for Sarah albicans and the bronchial washings also showed Sarah glabrata. Urine culture was also positive for Sarah. The patient was given IV Diflucan and she completed the course of antifungal treatment. Her echocardiogram showed no evidence of any vegetation and her left-ventricular ejection fraction was essentially within normal limits. Infection and a hyperdynamic heart with an EF of around 70 to 75%. No significant valvular abnormalities. Her current labs show a white cell count of 22.3 which has been elevated since her discharge from the hospital, hemoglobin 11.7 and platelet count is 407, serum bicarbonate 30 and sodium levels of 134, BUN is 22 with a creatinine of 0.25. LFTs are within normal limits. Most recent procalcitonin level from 03/24/2024 was at 0.08. Blood cultures have been sent. On 03/30/2024, the patient was taken off the BiPAP and the patient has been transitioned to oxygen at 3 L/min nasal cannula. No new complaints. Chest x- ray findings are essentially unchanged. The patient has stable right basilar and left midlung consolidation and bilateral pleural effusions. Nevertheless, she seems to be much more comfortable. She continues to have a congested cough and she is on a broad-spectrum antibiotics and the patient is currently on a combination of cefepime, vancomycin and voriconazole. Awaiting follow-up cul tures on this patient. The white cell count is down to 18 with a hemoglobin 10.3 and a platelet count of 350. Electrolytes are stable with a BUN of 25 and a creatinine of 0.2. Procalcitonin level is at 0.57. She is weak yet awake and alert. Communicating. She has chronic wounds in lower extremities and some ongoing +1 edema lower extremities bilaterally. Moving all 4 extremities other than limitation. No altered mentation at this point in time. On 03/31/2024, the patient is stable. The patient remains on 40 Suboxone by nasal cannula. The patient does receive with IV Lasix and she is in a negative fluid balance of 1.8 L over the past 24 hours. Meanwhile, chest x-ray from today shows stable bilateral pulm infiltrates. The patient remains on the same antibiotic coverage includes cefepime, vancomycin and voriconazole. Blood cultures are still negative. The white cell count of 19 with a hemoglobin 10.7 and platelet count of 383. BUN is 23 with a creatinine 0.3. Sodium level is at 137. The patient continues to have wound care to lower extremities. Awake and alert and communicating. Remains on bronchodilators. Remains on steroids. Remains on Levemir insulin for blood sugar control at 15 units at bedtime and a sliding scale coverage. No other significant events overnight. The patient is being seen for a follow-up. The patient is doing well. No specific complaints. Continues to diurese. Blood cultures are negative the patient remains on the same antibiotic coverage. The white cell count from today is at 23 with a hemoglobin of 10 and a platelet count of 334. Electrolytes are all stable with a BUN of 19 and a creatinine of 0.3. Sodium levels at 141. No other significant events overnight. She is currently on oxygen at 4 L/min nasal cannula. 04/02/2024, the patient is doing well. She continues B12 with Lasix and the patient is -2.9 L over the past 24 hours. Edema is improving. Meanwhile, repeat chest x-ray was done and the pulmonary findings are essentially stable. The white cell count from yesterday was 23 and awaiting follow-up labs from to day. Renal function is also stable from yesterday. The patient remains on IV Lasix. The patient remains on cefepime vancomycin and voriconazole. Cultures are negative thus far. No interval worsening shortness of breath. No new findings or new complaints for now. She remains stable on 4 L of oxygen by nasal cannula. The patient is seen today April 03, 2024 in follow-up on the regular medical floor. She is currently sitting up in bed. Awake and alert in no acute distress. She is maintaining O2 saturations in the 90s on 4 L/min per nasal cannula. She has been refusing BiPAP support at night. She has been refusing to get up out of bed. She does have a wound on her coccyx. She is having some issues with diarrhea. Chest x-ray reveals left perihilar and right lower lobe infiltrates. She remains on cefepime and voriconazole. She denies any shortness of breath, cough or congestion. No fever or chills. 7. Bicarb 30. BUN 23. Creatinine 0.19. Glucose 84. She is continued on inhalations, Pulmicort and Perforomist inhalations, Solu-Medrol. The patient is seen today April 04, 2024 in follow-up on the regular medical floor. She is awake and alert in no acute distress. She continues to be reluctant to move about or get up out of bed or even have staff change her when she has had a bowel movement. She does have an unstageable ulcer on her sacrum and multiple nonhealing ulcers of the bilateral lower extremities with fat layer exposure that is being followed by wound center's nurse practitioner. Glucose 90. She is continued on DuoNeb inhalations, Pulmicort and Perforomist inhalations, prednisone. The patient is seen today April 05, 2024 in follow-up on the regular medical floor. She is sitting up in bed. Awake and alert in no acute distress. Maintaining O2 saturations in the 90s on 4 L/min per nasal cannula. She is continued on DuoNeb inhalations, Symbicort, prednisone taper. Currently on Omnicef and voriconazole. Remains on diuretics. Glucose 205. C. difficile screen was negative. The patient is seen today April 06, 2024 in follow-up on the regular medical floor. She is awake and alert in no acute distress. Resting comfortably in bed. Denies any worsening shortness of breath, cough or congestion. Maintaining O2 saturations in the 90s up to 100% on 4 L/min per nasal cannula. She is afebrile. Hemodynamically stable. She is being followed by the wound center for an unstageable pressure ulcer on her sacrum and lower extremity ulcerations and inflammation. And voriconazole. She remains on DuoNeb inhalations, Symbicort, prednisone taper. Lovenox for DVT prophylaxis. Remains on oral diuretics. Globin 10.4. Platelets 307. Sodium 138. Potassium 3.6. Bicarb 29. BUN 16. Creatinine 0.2. Glucose 103. The patient is seen today April 07, 2024 in follow-up on the regular medical floor. She is resting comfortably in bed. Awake and alert in no acute distress. Denies any worsening shortness of breath, cough or congestion. She i s maintaining good O2 saturations in the upper 90s on 3 L/min per nasal cannula. She has been afebrile. Hemodynamically stable. White count 22.3. Hemoglobin 10.0. Platelets 337. Sodium 137. Potassium 3.9. Bicarb 27. BUN 17. Creatinine 0.2. Glucose 304. AST 17. ALT 21. She is continued on DuoNeb inhalations, Symbicort. Lovenox for DVT prophylaxis. Prednisone taper. Antibiotics in the form of Omnicef. Remains on oral diuretics. Currently in a -1.1 L balance. The patient is seen today April 08, 2024 in follow-up on the regular medical floor. She is awake and alert in no acute distress. She is resting comfortably in bed. She denies any worsening shortness of breath, cough or congestion. A CT scan of the chest abdomen and pelvis was performed yesterday. Lung findings revealed small lower lobe infiltrates with a small right effusion and moderate left effusion. No masses. No lymphadenopathy. There is mild to moderate ascites. Marked anasarca. Nonhealed right pubic bone fracture. Healed fractures of the bilateral inferior pubic rami. Orthopedics had been consulted yesterday. Glucose 251. She is stable on 3 L nasal cannula with O2 saturation of 98%. Afebrile. Hemodynamically stable. She remains on DuoNeb inhalations, Symbicort, prednisone. Lovenox for DVT prophylaxis. Antibiotics in the form of Omnicef. Blood and urine cultures negative. Objective - Vital Signs Vital signs: Vital Signs Temp 97.6 F 04/08/24 07:37 Pulse 88 04/08/24 07:37 Resp 18 04/08/24 07:37 BP 126/74 04/08/24 07:37 Pulse Ox 98 04/08/24 07:37 FiO2 50 04/03/24 01:06 Intake & Output 04/07/24 04/08/24 04/08/24 18:59 06:59 18:59 Intake Total 240 Output Total 1125 450 Balance -885 -450 Intake: Oral 240 Output: Urine 1125 450 Other: Voiding Method Indwelling Catheter Indwelling Catheter # Voids 0 # Bowel Movements 1 - Exam GENERAL EXAM: Awake, alert 64-year-old female, resting in bed, on 3 L of oxygen by nasal cannula. HEAD: Normocephalic and atraumatic EYES: Normal reaction of pupils, equal size. NOSE: Clear with pink turbinates. THROAT: No erythema or exudates. NECK: No masses, no JVD. CHEST: No chest wall deformity. LUNGS: Diminished breath sounds at the bases with few scattered rhonchi and crackles. CVS: Distant S1-S2, no S3 gallop, no murmur. ABDOMEN: Soft nontender no rebound no guarding. Bowel sounds. SKIN: Unstageable pressure injury on the sacrum. Bilateral lower extremity wounds. Multiple superficial ulcerations noted in both lower extremities. No active drainage. The wound bases are essentially clean at this point and most of the wounds are present over the chavez bilaterally and various sizes and shapes. Currently with Flaco wraps. Pulses in lower extremities present. There are some edema in her ankles bilaterally and some edema in the upper extremities bilaterally. CENTRAL NERVOUS SYSTEM: Alert and oriented x 3, no gross focal neurologic deficit, moving all 4 extremities other than limitation. Generalized muscle weakness in all 4 extremities. EXTREMITIES: Bipedal edema with multiple superficial skin lesions/ulcerations noted bilaterally - Labs CBC & Chem 7: 04/07/24 06:11 04/07/24 06:11 Labs: Abnormal Lab Results - Last 24 Hours (Table) 04/07/24 04/07/24 04/08/24 Range/Units 16:48 20:09 06:03 POC Glucose (mg/dL) 154 H 298 H 251 H (70-110) mg/dL Assessment and Plan Assessment: Acute hypoxic respiratory failure requiring BiPAP support, secondary to acute multifocal pneumonia, the patient developed new infiltration of the lungs more extensive on the left, consider the possibility of healthcare associated pneumonia. The patient is improved and stable. On 3 L of oxygen by nasal cannula. Chest x-ray findings are showing stable bilateral pulmonary consolidation left more than right. Remains on Omnicef. CT scan of the chest from 04/07/2024 revealed bibasilar infiltrates and pleural effusions left greater than right. Findings are evident of postinflammatory changes from her previous pneumonia. Previous history of multifocal pneumonia, secondary to Haemophilus influenzae, diagnosed via bronchoscopy and BAL COPD Known history of a right upper lobe pulmonary embolism, CT angiogram this admission on March 29, 2024 revealed no evidence of pulmonary embolism. Resolution of previously seen pulmonary embolism. History of systemic candidemia, completed a course of Diflucan. The patient was also being given voriconazole on outpatient basis. Most recent positive blood culture was done 02/11/2024. The patient also had Sarah in her urine on 01/29/2024) and Sarah glabrata in the sputum on 03/14/2024. Chronic urinary retention with indwelling Horn catheter, rule out recurrent infection History of constipation status post decompressive sigmoidoscopy during her previous hospitalization Type 2 diabetes, maintained on insulin Benign essential hypertension Dyslipidemia Severe protein calorie malnutrition Chronic unstageable decubitus pressure ulcer and multiple skin ulcerations involving both lower extremities Plan: The patient was seen and evaluated CT scan of the chest abdomen and pelvis, medications and labs reviewed CT scan reviewed with Dr. Tena Lung findings felt to be postinflammatory changes No plans for pulmonary intervention Remains on bronchodilators and steroids Remains on Omnicef per ID service Titrate down the FiO2 as tolerated Needs increased encouragement to participate with therapies Plan is to return to [facility] at discharge This patient was seen independently by the pulmonary nurse practitioner addressing pulmonary issues I have personally seen and examined the patient, performed the documentation and the assessment and plan as written. Number of minutes spent on the visit: 24.
[2024-04-08 11:51] LABS: Glucose,Whole Blood 175 mg/dL (70-110)
--- NOTE | 2024-04-08 15:14 | P.PN ---
Subjective Progress Note Date: 04/08/24 Principal diagnosis: Reason for follow-up is pneumonia Patient is a 54-year-old female with a past medical history significant for diabetes mellitus hypertension hyperlipidemia PE COPD had recent admission to the hospital treated for pneumonia sputum was positive for H aemophilus influenzae received IV and oral antibioticssent to the senior living brought back to the hospital worsening respiratory status and concern for possible pneumonia requiring admission in the ICU. On today's evaluation that is 04/08/2024, patient has been afebrile, patient is breathing comfortably and is currently on 3 L current oxygen, patient denies having any significant cough no chest pain shortness of breath, patient denies nausea vomiting or abdominal pain did have 1 or 2 episodes of diarrhea. No new lab has been obtained today Objective - Vital Signs Vital signs: Vital Signs Temp 97.6 F 04/08/24 07:37 Pulse 88 04/08/24 07:37 Resp 18 04/08/24 07:37 BP 126/74 04/08/24 07:37 Pulse Ox 98 04/08/24 07:37 FiO2 50 04/03/24 01:06 Intake & Output 04/07/24 04/08/24 04/08/24 18:59 06:59 18:59 Intake Total 240 Output Total 1125 450 Balance -885 -450 Intake: Oral 240 Output: Urine 1125 450 Other: Voiding Method Indwelling Catheter Indwelling Catheter # Voids 0 # Bowel Movements 1 - Exam GENERAL DESCRIPTION: Middle-age female lying in bed in no distress RESPIRATORY SYSTEM: Unlabored breathing , decreased breath sounds at bases HEART: S1 S2 regular rate and rhythm , ABDOMEN: Soft , no tenderness EXTREMITIES: No edema feet - Labs CBC & Chem 7: 04/07/24 06:11 04/07/24 06:11 Labs: Abnormal Lab Results - Last 24 Hours (Table) 04/07/24 04/07/24 04/08/24 Range/Units 16:48 20:09 06:03 POC Glucose (mg/dL) 154 H 298 H 251 H (70-110) mg/dL Assessment and Plan (1) Leukocytosis Current Visit: Yes Status: Acute Code(s): D72.829 - ELEVATED WHITE BLOOD CELL COUNT, UNSPECIFIED SNOMED Code(s): 986887647 (2) Pneumonia Current Visit: Yes Status: Acute Code(s): J18.9 - PNEUMONIA, UNSPECIFIED ORGANISM SNOMED Code(s): 808502296 Plan: 1patient was in the hospital with sepsis in this patient who did have a leukocytosis tachycardia hypoxemia admitted currently for SIRS/sepsis source likely pneumonia concern for possible gram-negative versus gram-positive recently treated for Haemophilus influenzae pneumonia 2 blood culture remains to be negative, urine for Legionella antigen currently pending procalcitonin was mildly elevated 0.57 on the patient nasal screen MRSA has been negative 3-patient remains to be afebrile patient, stool for C. difficile is negative to continue Questran as needed 4patient did have worsening of her sacral pressure ulcer with significant mount of slough necrotic tissue and will benefit from surgical debridement 5-we will continue patient on Omnicef and Flagyl repeat a CBC with a.m. lab Dictation was produced using [employer] dictation software. please excuse any grammatical, word or spelling errors. Time with Patient: Less than 30
[2024-04-08 16:39] LABS: Glucose,Whole Blood 218 mg/dL (70-110)
[2024-04-08 20:30] LABS: Glucose,Whole Blood 363 mg/dL (70-110)
[2024-04-09 06:27] LABS: Glucose,Whole Blood 301 mg/dL (70-110)
[2024-04-09] MEDS: IPRATROPIUM-ALBUTEROL 3 ML NEB INHALATION SCH (08:35)
[2024-04-09 09:41] LABS: Basophils # (A) 0.03 X 10*3/uL (0.00-0.10); Basophils % (A) 0.2 %; Eosinophils # (A) 0.06 X 10*3/uL (0.04-0.35); Eosinophils % (A) 0.3 %; HCT 30.1 % (37.2-46.3); HGB 9.6 g/dL (12.0-15.0); Lymphocytes # (A) 0.89 X 10*3/uL (0.90-5.00); Lymphocytes % (A) 4.8 %; MCH 30.6 pg (27.0-32.0); MCHC 31.9 g/dL (32.0-37.0); MCV 95.9 FL (80.0-97.0); Mean Platelet Volume 9.9 FL (9.5-12.2); Monocytes # (A) 0.59 X 10*3/uL (0.20-1.00); Monocytes % (A) 3.2 %; NRBC Per 100 WBC 0 X 10*3/uL (0.00-0.01); Neutrophils # (A) 16.72 X 10*3/uL (1.80-7.70); Neutrophils % (A) 90.6 %; Platelet Count 411 X 10*3/uL (140-440); RBC 3.14 X 10*6/uL (4.10-5.20); RDW 16.7 % (11.5-14.5); WBC 18.46 X 10*3/uL (4.50-10.00)
[2024-04-09 09:48] LABS: Blood Urea Nitrogen 18.9 mg/dL (9.0-27.0); Glucose 287 mg/dL (70-110)
[2024-04-09 09:49] LABS: ALT 16 U/L (8-44); AST 13 U/L (13-35); Albumin 2.3 g/dL (3.8-4.9); Albumin/Globulin Ratio 1.44 Ratio (1.60-3.17); Alkaline Phosphatase 189 U/L (41-126); Calcium 7.5 mg/dL (8.7-10.3); Carbon Dioxide 27.8 mmol/L (21.6-31.8); Chloride 103 mmol/L (96-109); Globulin 1.6 g/dL (1.6-3.3); Potassium 3.5 mmol/L (3.5-5.5); Sodium 138 mmol/L (135-145); Total Bilirubin <0.2 mg/dL (0.3-1.2); Total Protein 3.9 g/dL (6.2-8.2)
[2024-04-09 11:24] LABS: Glucose,Whole Blood >600 mg/dL (70-110)
[2024-04-09 11:28] LABS: Glucose,Whole Blood 299 mg/dL (70-110)
--- NOTE | 2024-04-09 12:29 | P.PN ---
Subjective Progress Note Date: 04/09/24 64-year-old female patient, known to us, the patient was treated in the hospital when she had a prolonged hospitalization from 01/30/2024 and she was discharged on 03/24/2024 to be readmitted to hospital on 03/29/2024 with worsening shortness of breath and respiratory failure. The patient was seen in emergency department. The patient is a significant respiratory distress and the patient is currently on a BiPAP at a pressure of 12 over 5 cm of water and FiO2 of 50%. Her current respiratory rate is in the low 30s. Blood pressure is stable. The patient is extremely lethargic, weak, has chronic wounds in her lower extremities bilaterally, has an indwelling Horn catheter which was present at the long term she has not she is nonambulatory status in right foot is extremely cloudy with significant amount of debris's and some purulence. Chest x-ray was emergency department and it shows an extensive area of consolidation involving the left lung along with some small bilateral pleural effusions and background COPD. The patient was given Zithromax and Zosyn. ICU consultation was requested This patient is known to have advanced COPD. During her last hospitalization, the patient was in acute hypoxic respiratory failure requiring intubation mechanical ventilation and he was ultimately extubated on 03/17/2024. During the course of her illness, she was bronchoscope and the sputum sample on 03/13/2024 and 03/14/2024 was positive for haemophilus influenza and she was treated accordingly. She was also diagnosed having a right upper lobe pulmonary embolism treated with anticoagulation with Eliquis. During the course of her illness, the patient had systemic candidemia and the blood cultures was on 02/11/2024 was positive for Sarah albicans and the bronchial washings also showed Sarah glabrata. Urine culture was also positive for Sarah. The patient was given IV Diflucan and she completed the course of antifungal treatment. Her echocardiogram showed no evidence of any vegetation and her left-ventricular ejection fraction was essentially within normal limits. Infection and a hyperdynamic heart with an EF of around 70 to 75%. No significant valvular abnormalities. Her current labs show a white cell count of 22.3 which has been elevated since her discharge from the hospital, hemoglobin 11.7 and platelet count is 407, serum bicarbonate 30 and sodium levels of 134, BUN is 22 with a creatinine of 0.25. LFTs are within normal limits. Most recent procalcitonin level from 03/24/2024 was at 0.08. Blood cultures have been sent. On 03/30/2024, the patient was taken off the BiPAP and the patient has been transitioned to oxygen at 3 L/min nasal cannula. No new complaints. Chest x- ray findings are essentially unchanged. The patient has stable right basilar and left midlung consolidation and bilateral pleural effusions. Nevertheless, she seems to be much more comfortable. She continues to have a congested cough and she is on a broad-spectrum antibiotics and the patient is currently on a combination of cefepime, vancomycin and voriconazole. Awaiting follow-up cul tures on this patient. The white cell count is down to 18 with a hemoglobin 10.3 and a platelet count of 350. Electrolytes are stable with a BUN of 25 and a creatinine of 0.2. Procalcitonin level is at 0.57. She is weak yet awake and alert. Communicating. She has chronic wounds in lower extremities and some ongoing +1 edema lower extremities bilaterally. Moving all 4 extremities other than limitation. No altered mentation at this point in time. On 03/31/2024, the patient is stable. The patient remains on 40 Suboxone by nasal cannula. The patient does receive with IV Lasix and she is in a negative fluid balance of 1.8 L over the past 24 hours. Meanwhile, chest x-ray from today shows stable bilateral pulm infiltrates. The patient remains on the same antibiotic coverage includes cefepime, vancomycin and voriconazole. Blood cultures are still negative. The white cell count of 19 with a hemoglobin 10.7 and platelet count of 383. BUN is 23 with a creatinine 0.3. Sodium level is at 137. The patient continues to have wound care to lower extremities. Awake and alert and communicating. Remains on bronchodilators. Remains on steroids. Remains on Levemir insulin for blood sugar control at 15 units at bedtime and a sliding scale coverage. No other significant events overnight. The patient is being seen for a follow-up. The patient is doing well. No specific complaints. Continues to diurese. Blood cultures are negative the patient remains on the same antibiotic coverage. The white cell count from today is at 23 with a hemoglobin of 10 and a platelet count of 334. Electrolytes are all stable with a BUN of 19 and a creatinine of 0.3. Sodium levels at 141. No other significant events overnight. She is currently on oxygen at 4 L/min nasal cannula. 04/02/2024, the patient is doing well. She continues B12 with Lasix and the patient is -2.9 L over the past 24 hours. Edema is improving. Meanwhile, repeat chest x-ray was done and the pulmonary findings are essentially stable. The white cell count from yesterday was 23 and awaiting follow-up labs from to day. Renal function is also stable from yesterday. The patient remains on IV Lasix. The patient remains on cefepime vancomycin and voriconazole. Cultures are negative thus far. No interval worsening shortness of breath. No new findings or new complaints for now. She remains stable on 4 L of oxygen by nasal cannula. The patient is seen today April 03, 2024 in follow-up on the regular medical floor. She is currently sitting up in bed. Awake and alert in no acute distress. She is maintaining O2 saturations in the 90s on 4 L/min per nasal cannula. She has been refusing BiPAP support at night. She has been refusing to get up out of bed. She does have a wound on her coccyx. She is having some issues with diarrhea. Chest x-ray reveals left perihilar and right lower lobe infiltrates. She remains on cefepime and voriconazole. She denies any shortness of breath, cough or congestion. No fever or chills. 7. Bicarb 30. BUN 23. Creatinine 0.19. Glucose 84. She is continued on inhalations, Pulmicort and Perforomist inhalations, Solu-Medrol. The patient is seen today April 04, 2024 in follow-up on the regular medical floor. She is awake and alert in no acute distress. She continues to be reluctant to move about or get up out of bed or even have staff change her when she has had a bowel movement. She does have an unstageable ulcer on her sacrum and multiple nonhealing ulcers of the bilateral lower extremities with fat layer exposure that is being followed by wound center's nurse practitioner. Glucose 90. She is continued on DuoNeb inhalations, Pulmicort and Perforomist inhalations, prednisone. The patient is seen today April 05, 2024 in follow-up on the regular medical floor. She is sitting up in bed. Awake and alert in no acute distress. Maintaining O2 saturations in the 90s on 4 L/min per nasal cannula. She is continued on DuoNeb inhalations, Symbicort, prednisone taper. Currently on Omnicef and voriconazole. Remains on diuretics. Glucose 205. C. difficile screen was negative. The patient is seen today April 06, 2024 in follow-up on the regular medical floor. She is awake and alert in no acute distress. Resting comfortably in bed. Denies any worsening shortness of breath, cough or congestion. Maintaining O2 saturations in the 90s up to 100% on 4 L/min per nasal cannula. She is afebrile. Hemodynamically stable. She is being followed by the wound center for an unstageable pressure ulcer on her sacrum and lower extremity ulcerations and inflammation. And voriconazole. She remains on DuoNeb inhalations, Symbicort, prednisone taper. Lovenox for DVT prophylaxis. Remains on oral diuretics. Globin 10.4. Platelets 307. Sodium 138. Potassium 3.6. Bicarb 29. BUN 16. Creatinine 0.2. Glucose 103. The patient is seen today April 07, 2024 in follow-up on the regular medical floor. She is resting comfortably in bed. Awake and alert in no acute distress. Denies any worsening shortness of breath, cough or congestion. She i s maintaining good O2 saturations in the upper 90s on 3 L/min per nasal cannula. She has been afebrile. Hemodynamically stable. White count 22.3. Hemoglobin 10.0. Platelets 337. Sodium 137. Potassium 3.9. Bicarb 27. BUN 17. Creatinine 0.2. Glucose 304. AST 17. ALT 21. She is continued on DuoNeb inhalations, Symbicort. Lovenox for DVT prophylaxis. Prednisone taper. Antibiotics in the form of Omnicef. Remains on oral diuretics. Currently in a -1.1 L balance. The patient is seen today April 08, 2024 in follow-up on the regular medical floor. She is awake and alert in no acute distress. She is resting comfortably in bed. She denies any worsening shortness of breath, cough or congestion. A CT scan of the chest abdomen and pelvis was performed yesterday. Lung findings revealed small lower lobe infiltrates with a small right effusion and moderate left effusion. No masses. No lymphadenopathy. There is mild to moderate ascites. Marked anasarca. Nonhealed right pubic bone fracture. Healed fractures of the bilateral inferior pubic rami. Orthopedics had been consulted yesterday. Glucose 251. She is stable on 3 L nasal cannula with O2 saturation of 98%. Afebrile. Hemodynamically stable. She remains on DuoNeb inhalations, Symbicort, prednisone. Lovenox for DVT prophylaxis. Antibiotics in the form of Omnicef. Blood and urine cultures negative. The patient is seen today April 09, 2024 in follow-up on the regular medical floor. She is resting comfortably in bed. Awake and alert in no acute distress. She is maintaining good O2 saturations in the high 90s on 2 L/min per nasal cannula. She is afebrile. Hemodynamically stable. She remains on DuoNeb inhalations, Symbicort, prednisone. Lovenox for DVT prophylaxis. Antibiotics in the form of Omnicef. Blood and urine cultures negative. White count 18.4. Hemoglobin 9.6. Platelets 411. Sodium 138. Potassium 3.5. Bicarb 27. BUN 19. Creatinine 0.3. Glucose 287. Objective - Vital Signs Vital signs: Vital Signs Temp 97.9 F 04/09/24 07:19 Pulse 90 04/09/24 08:51 Resp 18 04/09/24 07:19 BP 111/67 04/09/24 07:19 Pulse Ox 99 04/09/24 07:19 FiO2 50 04/03/24 01:06 Intake & Output 04/08/24 04/09/24 04/09/24 18:59 06:59 18:59 Output Total 800 500 600 Balance -800 -500 -600 Output: Urine 800 500 600 Other: Voiding Method Indwelling Catheter Indwelling Catheter Indwelling Catheter # Bowel Movements 1 1 - Exam GENERAL EXAM: Awake, alert 64-year-old female, on 2 L of oxygen by nasal cannula. HEAD: Normocephalic and atraumatic EYES: Normal reaction of pupils, equal size. NOSE: Clear with pink turbinates. THROAT: No erythema or exudates. NECK: No masses, no JVD. CHEST: No chest wall deformity. LUNGS: Diminished breath sounds at the bases with few scattered rhonchi and crackles. CVS: Distant S1-S2, no S3 gallop, no murmur. ABDOMEN: Soft nontender no rebound no guarding. Bowel sounds. SKIN: Unstageable pressure injury on the sacrum. Bilateral lower extremity wounds. Multiple superficial ulcerations noted in both lower extremities. No active drainage. Currently with Flaco wraps. Pulses in lower extremities present. There are some edema in her ankles bilaterally and some edema in the upper extremities bilaterally. CENTRAL NERVOUS SYSTEM: Alert and oriented x 3, no gross focal neurologic deficit, moving all 4 extremities other than limitation. EXTREMITIES: Wraps to the bilateral lower extremities. Pulses are intact. - Labs CBC & Chem 7: 04/09/24 03:35 04/09/24 03:35 Labs: Abnormal Lab Results - Last 24 Hours (Table) 04/08/24 04/08/24 04/09/24 Range/Units 16:37 20:29 03:35 WBC 18.46 H (4.50-10.00) X 10*3/uL RBC 3.14 L (4.10-5.20) X 10*6/uL Hgb 9.6 L (12.0-15.0) g/dL Hct 30.1 L (37.2-46.3) % MCHC 31.9 L (32.0-37.0) g/dL RDW 16.7 H (11.5-14.5) % Immature Gran # 0.17 H (0.00-0.04) X 10*3/uL Neutrophils # 16.72 H (1.80-7.70) X 10*3/uL Lymphocytes # 0.89 L (0.90-5.00) X 10*3/uL Creatinine (0.6-1.5) mg/dL BUN/Creatinine Ratio (12.00-20.00) Ratio Glucose (70-110) mg/dL POC Glucose (mg/dL) 218 H 363 H (70-110) mg/dL Calcium (8.7-10.3) mg/dL Total Bilirubin (0.3-1.2) mg/dL Alkaline Phosphatase (41-126) U/L C-Reactive Protein (0.00-0.80) mg/dL Total Protein (6.2-8.2) g/dL Albumin (3.8-4.9) g/dL Albumin/Globulin Ratio (1.60-3.17) Ratio 04/09/24 04/09/24 04/09/24 Range/Units 03:35 06:25 11:23 WBC (4.50-10.00) X 10*3/uL RBC (4.10-5.20) X 10*6/uL Hgb (12.0-15.0) g/dL Hct (37.2-46.3) % MCHC (32.0-37.0) g/dL RDW (11.5-14.5) % Immature Gran # (0.00-0.04) X 10*3/uL Neutrophils # (1.80-7.70) X 10*3/uL Lymphocytes # (0.90-5.00) X 10*3/uL Creatinine 0.3 L (0.6-1.5) mg/dL BUN/Creatinine Ratio 63.00 H (12.00-20.00) Ratio Glucose 287 H (70-110) mg/dL POC Glucose (mg/dL) 301 H >600 H* (70-110) mg/dL Calcium 7.5 L (8.7-10.3) mg/dL Total Bilirubin <0.2 L (0.3-1.2) mg/dL Alkaline Phosphatase 189 H (41-126) U/L C-Reactive Protein 3.20 H (0.00-0.80) mg/dL Total Protein 3.9 L (6.2-8.2) g/dL Albumin 2.3 L (3.8-4.9) g/dL Albumin/Globulin Ratio 1.44 L (1.60-3.17) Ratio 04/09/24 Range/Units 11:26 WBC (4.50-10.00) X 10*3/uL RBC (4.10-5.20) X 10*6/uL Hgb (12.0-15.0) g/dL Hct (37.2-46.3) % MCHC (32.0-37.0) g/dL RDW (11.5-14.5) % Immature Gran # (0.00-0.04) X 10*3/uL Neutrophils # (1.80-7.70) X 10*3/uL Lymphocytes # (0.90-5.00) X 10*3/uL Creatinine (0.6-1.5) mg/dL BUN/Creatinine Ratio (12.00-20.00) Ratio Glucose (70-110) mg/dL POC Glucose (mg/dL) 299 H (70-110) mg/dL Calcium (8.7-10.3) mg/dL Total Bilirubin (0.3-1.2) mg/dL Alkaline Phosphatase (41-126) U/L C-Reactive Protein (0.00-0.80) mg/dL Total Protein (6.2-8.2) g/dL Albumin (3.8-4.9) g/dL Albumin/Globulin Ratio (1.60-3.17) Ratio Microbiology - Last 24 Hours (Table) 04/07/24 17:30 Urine Culture - Preliminary Urine,Catheterized 04/07/24 12:11 Blood Culture - Preliminary Blood Assessment and Plan Assessment: Acute hypoxic respiratory failure requiring BiPAP support, secondary to acute multifocal pneumonia, the patient developed new infiltration of the lungs more extensive on the left, consider the possibility of healthcare associated pneumonia. The patient is improved and stable. On 3 L of oxygen by nasal cannula. Chest x-ray findings are showing stable bilateral pulmonary co nsolidation left more than right. Remains on Omnicef. CT scan of the chest from 04/07/2024 revealed bibasilar infiltrates and pleural effusions left greater than right. Findings are evident of postinflammatory changes from her previous pneumonia. Previous history of multifocal pneumonia, secondary to Haemophilus influenzae, diagnosed via bronchoscopy and BAL COPD Known history of a right upper lobe pulmonary embolism, CT angiogram this admission on March 29, 2024 revealed no evidence of pulmonary embolism. Resolution of previously seen pulmonary embolism. History of systemic candidemia, completed a course of Diflucan. The patient was also being given voriconazole on outpatient basis. Most recent positive blood culture was done 02/11/2024. The patient also had Sarah in her urine on 01/29/2024) and Sarah glabrata in the sputum on 03/14/2024. Chronic urinary retention with indwelling Horn catheter, rule out recurrent infection History of constipation status post decompressive sigmoidoscopy during her previous hospitalization Type 2 diabetes, maintained on insulin Benign essential hypertension Dyslipidemia Severe protein calorie malnutrition Chronic unstageable decubitus pressure ulcer and multiple skin ulcerations involving both lower extremities Plan: The patient was seen and evaluated Medications and labs reviewed Lung findings felt to be postinflammatory changes Remains on bronchodilators and steroids Remains on Omnicef per ID service Titrate down the FiO2 as tolerated Needs increased encouragement to participate with therapies Plan is to return to [facility] at discharge I have personally seen and examined the patient, performed the documentation and the assessment and plan as written. Number of minutes spent on the visit: 10.
--- NOTE | 2024-04-09 12:41 | P.GSCN ---
History of Present Illness Consult date: 04/09/24 Reason for Consult: Sacral decubitus ulcer History of present illness: 64-year-old female known to our service. Patient was last seen in January for fecal impaction and underwent manual disimpaction. Consulted now for a sacral decubitus ulcer requires debridement. Patient has been on mobile for the last few months. Feels weak. Poor oral intake. Review of Systems The patient denies any acute changes in vision or hearing, no dysphagia or odynophagia, no chest pain or shortness of breath, no dysuria or hematuria, no headache, no runny nose, no rectal bleeding or melena, no unexplained weight loss Past Medical History Past Medical History: COPD, Diabetes Mellitus, Hyperlipidemia, Hypertension, Pulmonary Embolus (PE) Additional Past Medical History / Comment(s): Chronic wound to the lower extremities, stress fractures L3-L4, L5 fracture, stent placed History of Any Multi-Drug Resistant Organisms: None Reported Past Surgical History: Adenoidectomy, Hysterectomy, Tubal Ligation Additional Past Surgical History / Comment(s): 2 tumors removals Past Anesthesia/Blood Transfusion Reactions: No Reported Reaction Past Psychological History: Anxiety, Depression Smoking Status: Current every day smoker Past Alcohol Use History: None Reported Past Drug Use History: None Reported Medications and Allergies Home Medications Medication Instructions Recorded Confirmed Type Budesonide/Formoterol Fumarate 2 puff INHALATION RT-BID 01/29/24 03/29/24 History [Symbicort 160-4.5 Mcg Inhaler] Escitalopram [Lexapro] 10 mg PO DAILY 01/29/24 03/29/24 History Lactobacillus Rhamnosus GG 1 cap PO BID 01/29/24 03/29/24 History [Culturelle] Melatonin 3 mg PO HS PRN 01/29/24 03/29/24 History Montelukast [Singulair] 10 mg PO HS 01/29/24 03/29/24 History Nicotine 14Mg/24Hr Patch [Habitrol] 1 patch TRANSDERM DAILY 01/29/24 03/29/24 History Budesonide [Pulmicort] 1 mg INHALATION RT-BID ml 02/05/24 03/29/24 Rx Formoterol Fumarate [Perforomist] 20 mcg INHALATION RT-BID ml 02/05/24 03/29/24 Rx Pantoprazole [Protonix] 40 mg PO AC-BID tab 02/05/24 03/29/24 Rx Voriconazole [Vfend] 200 mg PO Q12HR tab 02/05/24 03/29/24 Rx Acetaminophen Tab [Tylenol] 650 mg PO Q4HR PRN tab 02/26/24 03/29/24 Rx Lactulose [Cephulac] 20 gm PO TID 30 Days #90 ml 02/26/24 03/29/24 Rx ALPRAZolam [Xanax] 0.25 mg PO QID tab 03/24/24 03/29/24 Rx Furosemide [Lasix] 20 mg PO DAILY tab 03/24/24 03/29/24 Rx amLODIPine [Norvasc] 5 mg PO DAILY tab 03/24/24 03/29/24 Rx polyethylene glycoL 3350 [Miralax] 17 gm PO DAILY packet 03/24/24 03/29/24 Rx predniSONE [Deltasone] 40 mg PO DAILY tab 03/24/24 03/29/24 Rx Amoxic-Pot Clav 875-125Mg 1 tab PO Q12HR 03/29/24 03/29/24 History [Augmentin 875-125] Apixaban Initiation Dose--VTE See Taper PO BID 03/29/24 03/29/24 History [Eliquis Initiation Dosing for VTE Treatment] Collagenase [Santyl Ointment] 1 applic TOPICAL DIRECTED PRN 03/29/24 03/29/24 History Collagenase [Santyl Ointment] 1 applic TOPICAL DAILY 03/29/24 03/29/24 History HYDROcodone/APAP 5-325MG [[place] 1 tab PO Q6HR PRN 03/29/24 03/29/24 History 5-325] INSULIN LISPRO (HumaLOG) [humaLOG] 5 units SQ AC-TID 03/29/24 03/29/24 History INSULIN LISPRO (HumaLOG) [humaLOG] See Protocol SQ ACHS 03/29/24 03/29/24 History Insulin Glargine [Lantus Vial] 15 unit SQ HS 03/29/24 03/29/24 History Ipratropium-Albuterol Nebulize 3 ml INHALATION RT-Q6H 03/29/24 03/29/24 History [Duoneb 0.5 mg-3 mg/3 ml Soln] Magnesium Hydroxide [Milk of 7,200 mg PO DAILY PRN 03/29/24 03/29/24 History Magnesia Concentrate] Na Phos,M-B/Na Phos,Di-Ba [Fleet 133 ml RECTAL DAILY PRN 03/29/24 03/29/24 History Adult] bisacodyL [Dulcolax] 10 mg RECTAL DAILY PRN 03/29/24 03/29/24 History Allergies Allergy/AdvReac Type Severity Reaction Status Date / Time No Known Allergies Allergy Verified 03/29/24 08:55 Surgical - Exam Vital Signs Temp Pulse Resp BP Pulse Ox 97.5 F L 104 H 22 117/80 79 L 03/29/24 06:57 03/29/24 06:57 03/29/24 06:57 03/29/24 06:57 03/29/24 06:57 Physical exam: General: Well-developed, well-nourished HEENT: Normocephalic, sclerae nonicteric Abdomen: Nontender, nondistended Extremities: No edema, sacral decubitus ulcer present measuring 12 x 10 cm, depth 1.5 to 2 cm, necrotic skin and subcutaneous fat present, mild tenderness Neuro: Alert and oriented Results - Labs 04/09/24 03:35 04/09/24 03:35 Abnormal Lab Results - Last 24 Hours (Table) 04/08/24 04/08/24 04/09/24 Range/Units 16:37 20:29 03:35 WBC 18.46 H (4.50-10.00) X 10*3/uL RBC 3.14 L (4.10-5.20) X 10*6/uL Hgb 9.6 L (12.0-15.0) g/dL Hct 30.1 L (37.2-46.3) % MCHC 31.9 L (32.0-37.0) g/dL RDW 16.7 H (11.5-14.5) % Immature Gran # 0.17 H (0.00-0.04) X 10*3/uL Neutrophils # 16.72 H (1.80-7.70) X 10*3/uL Lymphocytes # 0.89 L (0.90-5.00) X 10*3/uL Creatinine (0.6-1.5) mg/dL BUN/Creatinine Ratio (12.00-20.00) Ratio Glucose (70-110) mg/dL POC Glucose (mg/dL) 218 H 363 H (70-110) mg/dL Calcium (8.7-10.3) mg/dL Total Bilirubin (0.3-1.2) mg/dL Alkaline Phosphatase (41-126) U/L C-Reactive Protein (0.00-0.80) mg/dL Total Protein (6.2-8.2) g/dL Albumin (3.8-4.9) g/dL Albumin/Globulin Ratio (1.60-3.17) Ratio 04/09/24 04/09/24 04/09/24 Range/Units 03:35 06:25 11:23 WBC (4.50-10.00) X 10*3/uL RBC (4.10-5.20) X 10*6/uL Hgb (12.0-15.0) g/dL Hct (37.2-46.3) % MCHC (32.0-37.0) g/dL RDW (11.5-14.5) % Immature Gran # (0.00-0.04) X 10*3/uL Neutrophils # (1.80-7.70) X 10*3/uL Lymphocytes # (0.90-5.00) X 10*3/uL Creatinine 0.3 L (0.6-1.5) mg/dL BUN/Creatinine Ratio 63.00 H (12.00-20.00) Ratio Glucose 287 H (70-110) mg/dL POC Glucose (mg/dL) 301 H >600 H* (70-110) mg/dL Calcium 7.5 L (8.7-10.3) mg/dL Total Bilirubin <0.2 L (0.3-1.2) mg/dL Alkaline Phosphatase 189 H (41-126) U/L C-Reactive Protein 3.20 H (0.00-0.80) mg/dL Total Protein 3.9 L (6.2-8.2) g/dL Albumin 2.3 L (3.8-4.9) g/dL Albumin/Globulin Ratio 1.44 L (1.60-3.17) Ratio 04/09/24 Range/Units 11:26 WBC (4.50-10.00) X 10*3/uL RBC (4.10-5.20) X 10*6/uL Hgb (12.0-15.0) g/dL Hct (37.2-46.3) % MCHC (32.0-37.0) g/dL RDW (11.5-14.5) % Immature Gran # (0.00-0.04) X 10*3/uL Neutrophils # (1.80-7.70) X 10*3/uL Lymphocytes # (0.90-5.00) X 10*3/uL Creatinine (0.6-1.5) mg/dL BUN/Creatinine Ratio (12.00-20.00) Ratio Glucose (70-110) mg/dL POC Glucose (mg/dL) 299 H (70-110) mg/dL Calcium (8.7-10.3) mg/dL Total Bilirubin (0.3-1.2) mg/dL Alkaline Phosphatase (41-126) U/L C-Reactive Protein (0.00-0.80) mg/dL Total Protein (6.2-8.2) g/dL Albumin (3.8-4.9) g/dL Albumin/Globulin Ratio (1.60-3.17) Ratio Microbiology - Last 24 Hours (Table) 04/07/24 17:30 Urine Culture - Preliminary Urine,Catheterized 04/07/24 12:11 Blood Culture - Preliminary Blood Diabetes panel 04/09/24 Range/Units 03:35 Sodium 138 (135-145) mmol/L Potassium 3.5 (3.5-5.5) mmol/L Chloride 103 (96-109) mmol/L Carbon Dioxide 27.8 (21.6-31.8) mmol/L BUN 18.9 (9.0-27.0) mg/dL Creatinine 0.3 L (0.6-1.5) mg/dL Glucose 287 H (70-110) mg/dL Calcium 7.5 L (8.7-10.3) mg/dL AST 13 (13-35) U/L ALT 16 (8-44) U/L Alkaline Phosphatase 189 H (41-126) U/L Total Protein 3.9 L (6.2-8.2) g/dL Albumin 2.3 L (3.8-4.9) g/dL Calcium panel 04/09/24 Range/Units 03:35 Calcium 7.5 L (8.7-10.3) mg/dL Albumin 2.3 L (3.8-4.9) g/dL Pituitary panel 04/09/24 Range/Units 03:35 Sodium 138 (135-145) mmol/L Potassium 3.5 (3.5-5.5) mmol/L Chloride 103 (96-109) mmol/L Carbon Dioxide 27.8 (21.6-31.8) mmol/L BUN 18.9 (9.0-27.0) mg/dL Creatinine 0.3 L (0.6-1.5) mg/dL Glucose 287 H (70-110) mg/dL Calcium 7.5 L (8.7-10.3) mg/dL Adrenal panel 04/09/24 Range/Units 03:35 Sodium 138 (135-145) mmol/L Potassium 3.5 (3.5-5.5) mmol/L Chloride 103 (96-109) mmol/L Carbon Dioxide 27.8 (21.6-31.8) mmol/L BUN 18.9 (9.0-27.0) mg/dL Creatinine 0.3 L (0.6-1.5) mg/dL Glucose 287 H (70-110) mg/dL Calcium 7.5 L (8.7-10.3) mg/dL Total Bilirubin <0.2 L (0.3-1.2) mg/dL AST 13 (13-35) U/L ALT 16 (8-44) U/L Alkaline Phosphatase 189 H (41-126) U/L Total Protein 3.9 L (6.2-8.2) g/dL Albumin 2.3 L (3.8-4.9) g/dL Assessment and Plan (1) Unstageable pressure ulcer of sacral region Narrative/Plan: 64-year-old female with stage IV sacral decubitus ulcer. Will proceed with bedside debridement. Continue antibiotics and local wound care. Continue offloading and nutritional optimization. Current Visit: Yes Status: Acute Code(s): L89.150 - PRESSURE ULCER OF SACRAL REGION, UNSTAGEABLE SNOMED Code(s): 51584111162485100
--- NOTE | 2024-04-09 12:41 | P.PN ---
Subjective Progress Note Date: 04/09/24 Principal diagnosis: Reason for follow-up is pneumonia Patient is a 54-year-old female with a past medical history significant for diabetes mellitus hypertension hyperlipidemia PE COPD had recent admission to the hospital treated for pneumonia sputum was positive for H aemophilus influenzae received IV and oral antibioticssent to the [facility] brought back to the hospital worsening respiratory status and concern for possible pneumonia requiring admission in the ICU. On today's evaluation that is 04/09/2024, Patient is afebrile this morning and denies any chills, patient mention breathing comfortably and is currently on 2 L nasal cannula oxygen, patient denies any chest pain occasional cough patient denies any abdominal pain no diarrhea no nausea no vomiting Patient white count is down to 18.46, creatinine 0.3 Objective - Vital Signs Vital signs: Vital Signs Temp 97.9 F 04/09/24 07:19 Pulse 90 04/09/24 08:51 Resp 18 04/09/24 07:19 BP 111/67 04/09/24 07:19 Pulse Ox 99 04/09/24 07:19 FiO2 50 04/03/24 01:06 Intake & Output 04/08/24 04/09/24 04/09/24 18:59 06:59 18:59 Output Total 800 500 600 Balance -800 -500 -600 Output: Urine 800 500 600 Other: Voiding Method Indwelling Catheter Indwelling Catheter Indwelling Catheter # Bowel Movements 1 1 - Exam GENERAL DESCRIPTION: Middle-age female lying in bed in no distress RESPIRATORY SYSTEM: Unlabored breathing , decreased breath sounds at bases HEART: S1 S2 regular rate and rhythm , ABDOMEN: Soft , no tenderness EXTREMITIES: No edema feet - Labs CBC & Chem 7: 04/09/24 03:35 04/09/24 03:35 Labs: Abnormal Lab Results - Last 24 Hours (Table) 04/08/24 04/08/24 04/09/24 Range/Units 16:37 20:29 03:35 WBC 18.46 H (4.50-10.00) X 10*3/uL RBC 3.14 L (4.10-5.20) X 10*6/uL Hgb 9.6 L (12.0-15.0) g/dL Hct 30.1 L (37.2-46.3) % MCHC 31.9 L (32.0-37.0) g/dL RDW 16.7 H (11.5-14.5) % Immature Gran # 0.17 H (0.00-0.04) X 10*3/uL Neutrophils # 16.72 H (1.80-7.70) X 10*3/uL Lymphocytes # 0.89 L (0.90-5.00) X 10*3/uL Creatinine (0.6-1.5) mg/dL BUN/Creatinine Ratio (12.00-20.00) Ratio Glucose (70-110) mg/dL POC Glucose (mg/dL) 218 H 363 H (70-110) mg/dL Calcium (8.7-10.3) mg/dL Total Bilirubin (0.3-1.2) mg/dL Alkaline Phosphatase (41-126) U/L C-Reactive Protein (0.00-0.80) mg/dL Total Protein (6.2-8.2) g/dL Albumin (3.8-4.9) g/dL Albumin/Globulin Ratio (1.60-3.17) Ratio 04/09/24 04/09/24 04/09/24 Range/Units 03:35 06:25 11:23 WBC (4.50-10.00) X 10*3/uL RBC (4.10-5.20) X 10*6/uL Hgb (12.0-15.0) g/dL Hct (37.2-46.3) % MCHC (32.0-37.0) g/dL RDW (11.5-14.5) % Immature Gran # (0.00-0.04) X 10*3/uL Neutrophils # (1.80-7.70) X 10*3/uL Lymphocytes # (0.90-5.00) X 10*3/uL Creatinine 0.3 L (0.6-1.5) mg/dL BUN/Creatinine Ratio 63.00 H (12.00-20.00) Ratio Glucose 287 H (70-110) mg/dL POC Glucose (mg/dL) 301 H >600 H* (70-110) mg/dL Calcium 7.5 L (8.7-10.3) mg/dL Total Bilirubin <0.2 L (0.3-1.2) mg/dL Alkaline Phosphatase 189 H (41-126) U/L C-Reactive Protein 3.20 H (0.00-0.80) mg/dL Total Protein 3.9 L (6.2-8.2) g/dL Albumin 2.3 L (3.8-4.9) g/dL Albumin/Globulin Ratio 1.44 L (1.60-3.17) Ratio 04/09/24 Range/Units 11:26 WBC (4.50-10.00) X 10*3/uL RBC (4.10-5.20) X 10*6/uL Hgb (12.0-15.0) g/dL Hct (37.2-46.3) % MCHC (32.0-37.0) g/dL RDW (11.5-14.5) % Immature Gran # (0.00-0.04) X 10*3/uL Neutrophils # (1.80-7.70) X 10*3/uL Lymphocytes # (0.90-5.00) X 10*3/uL Creatinine (0.6-1.5) mg/dL BUN/Creatinine Ratio (12.00-20.00) Ratio Glucose (70-110) mg/dL POC Glucose (mg/dL) 299 H (70-110) mg/dL Calcium (8.7-10.3) mg/dL Total Bilirubin (0.3-1.2) mg/dL Alkaline Phosphatase (41-126) U/L C-Reactive Protein (0.00-0.80) mg/dL Total Protein (6.2-8.2) g/dL Albumin (3.8-4.9) g/dL Albumin/Globulin Ratio (1.60-3.17) Ratio Microbiology - Last 24 Hours (Table) 04/07/24 17:30 Urine Culture - Preliminary Urine,Catheterized 04/07/24 12:11 Blood Culture - Preliminary Blood Assessment and Plan (1) Leukocytosis Current Visit: Yes Status: Acute Code(s): D72.829 - ELEVATED WHITE BLOOD CELL COUNT, UNSPECIFIED SNOMED Code(s): 750367547 (2) Pneumonia Current Visit: Yes Status: Acute Code(s): J18.9 - PNEUMONIA, UNSPECIFIED ORGANISM SNOMED Code(s): 258006456 Plan: 1patient was in the hospital with sepsis in this patient who did have a leukocytosis tachycardia hypoxemia admitted currently for SIRS/sepsis source likely pneumonia concern for possible gram-negative versus gram-positive recently treated for Haemophilus influenzae pneumonia 2 blood culture remains to be negative, urine for Legionella antigen currently pending procalcitonin was mildly elevated 0.57 on the patient nasal screen MRSA has been negative 3-patient remains to be afebrile patient, stool for C. difficile is negative to continue Questran as needed 4patient did have worsening of her sacral pressure ulcer with significant mount of slough necrotic tissue for which general surgery has been consulted and apparently did have bedside debridement done this morning per the patient 5-we will continue patient on Omnicef and Flagyl as the white count is trending down Dictation was produced using [email or web address] dictation software. please excuse any grammatical, word or spelling errors. Time with Patient: Less than 30
--- NOTE | 2024-04-09 12:42 | P.OP ---
Date of Procedure: 04/09/24 Procedure(s) Performed: PREOPERATIVE DIAGNOSIS: Sacral decubitus ulcer POSTOPERATIVE DIAGNOSIS: Same PROCEDURE: Excisional debridement sacral decubitus ulcer SURGEON: Wu EBL: Gogo cc ANESTHESIA: None COMPLICATIONS: None OPERATIVE PROCEDURE: Patient kept in the room for the procedure. She was placed in the left cubitus position. The necrotic skin and subcutaneous fat was excised sharply using scalpel. The underlying wound bed had some fibropurulent exudate that was also excised. Most of the wound bed however had some granulation tissue starting. Sterile dressing applied. DISPOSITION: Stable to recovery room
--- NOTE | 2024-04-09 12:42 | P.PN ---
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 Chronic decubitus ulcer 04/08/2024,patient remains on 2 L nasal cannula no obvious distress is present, intermittent ongoing cough is present, ID service and pulmonary has been following, no triggers computed tomography scan of the abdominal and pelvis and chest performed, some pneumonia and small infiltrate and effusion has been noted bilaterally, this appears to be related to mild to moderate ascites, patient is on oral Omnicef, cultures are negative, patient is being continued DVT profile 04/01/2024, patient seen eval examined during rounds labs reviewed medications reviewed care plan discussed with the patient, sitting upright on the bed on 4 L oxygen, ongoing cough congestion is present, denies any diarrhea and nausea vomiting, patient refused and declined use of CPAP machine of BiPAP machine was to continue oxygen. Vitals today reviewed blood pressure is 144/87 respiratory rate is 18 saturation of 95%. Oxygen, labs from today reviewed white cell count is 23.6 hemoglobin and hematocrit 07/26 potassium is 3.1 BUN/creatinine 19/0.3 glucose is 160, WBC count is rising, we will check with infectious disease services, potassium is declining due to diuresis,Will give 40 mEq of KCl today Objective - Vital Signs Vital signs: Vital Signs Temp 97.6 F 04/08/24 07:37 Pulse 88 04/08/24 07:37 Resp 18 04/08/24 07:37 BP 126/74 04/08/24 07:37 Pulse Ox 98 04/08/24 07:37 FiO2 50 04/03/24 01:06 Intake & Output 04/07/24 04/08/24 04/08/24 18:59 06:59 18:59 Intake Total 240 Output Total 1125 450 Balance -885 -450 Intake: Oral 240 Output: Urine 1125 450 Other: Voiding Method Indwelling Catheter Indwelling Catheter # Voids 0 # Bowel Movements 1 - Exam - Constitutional General appearance: Present: average body habitus, cooperative, disheveled - EENT Eyes: Present: EOMI, PERRLA, poor dentition ENT: Present: normal oropharynx Ears: bilateral: normal - Neck Neck: Present: normal ROM Carotids: bilateral: upstroke normal Thyroid: bilateral: normal size - Respiratory Respiratory: bilateral: CTA - Cardiovascular Rhythm: regular Heart sounds: normal: S1, S2 - Gastrointestinal General gastrointestinal: Present: soft - Integumentary Integumentary: Present: normal turgor - Neurologic Neurologic: Present: CNII-XII intact - Musculoskeletal Musculoskeletal: Present: gait normal, generalized weakness - Psychiatric Psychiatric: Present: A&O x's 3, appropriate affect, intact judgment & insight - Labs CBC & Chem 7: 04/09/24 03:35 04/09/24 03:35 Labs: Abnormal Lab Results - Last 24 Hours (Table) 04/07/24 04/07/24 04/08/24 Range/Units 16:48 20:09 06:03 POC Glucose (mg/dL) 154 H 298 H 251 H (70-110) mg/dL Assessment and Plan Assessment: fluid overload and anasarca, continue gentle diuresis acute on chronic hypoxic respiratory failure COPD healthcare associated pneumonia pulmonary embolism History of systemic candidemia History of chronic constipation Chronic urinary retention insulin-requiring type 2 diabetes mellitus hypertension 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 Chronic decubitus ulcer Plan: continue long and short-acting insulin with sliding scale NovoLog and Levemir continue pain management with [place] 4 times a day as needed Diuresis with Lasix Anticoagulation with Lovenox 40 mg subcu every 12 Bronchodilators with DuoNeb and his steroids Continue blood pressure control with Norvasc continue supplemental oxygen 4 L nasal cannula, patient declined its use the BiPAP machine ID service following and adjusting antibiotics currently on Zosyn and vancomycin along with antifungal agent with very canals oh Continue wound care Increase activity as tolerated Time with Patient: Greater than 30
--- NOTE | 2024-04-09 12:44 | P.PN ---
Subjective Progress Note Date: 04/09/24 Principal diagnosis: acute on chronic hypoxic respiratory failure COPD healthcare associated pneumonia pulmonary embolism History of systemic candidemia History of chronic constipation Chronic urinary retention insulin-requiring type 2 diabetes mellitus hypertension 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 Chronic decubitus ulcer 04/09/2024, patient seen eval reexamined during on labs reviewed medications and Plan discussed, white cell count is up 18.46, hemoglobin and hematocrit Stable 9.6/30 chemistry reviewed blood work was treated 7 patient remains afebrile hemodynamic status stable oxygen saturation is 96% on 2 L nasal cannula which slowly being titrated down 04/08/2024,patient remains on 2 L nasal cannula no obvious distress is present, intermittent ongoing cough is present, ID service and pulmonary has been following, no triggers computed tomography scan of the abdominal and pelvis and chest performed, some pneumonia and small infiltrate and effusion has been noted bilaterally, this appears to be related to mild to moderate ascites, patient is on oral Omnicef, cultures are negative, patient is being continued DVT profile 04/01/2024, patient seen eval examined during rounds labs reviewed medications reviewed care plan discussed with the patient, sitting upright on the bed on 4 L oxygen, ongoing cough congestion is present, denies any diarrhea and nausea vomiting, patient refused and declined use of CPAP machine of BiPAP machine was to continue oxygen. Vitals today reviewed blood pressure is 144/87 respiratory rate is 18 saturation of 95%. Oxygen, labs from today reviewed white cell count is 23.6 hemoglobin and hematocrit 10/30 potassium is 3.1 BUN/creatinine 19/0.3 glucose is 160, WBC count is rising, we will check with infectious disease services, potassium is declining due to diuresis,Will give 40 mEq of KCl today Objective - Vital Signs Vital signs: Vital Signs Temp 97.9 F 04/09/24 07:19 Pulse 90 04/09/24 08:51 Resp 18 04/09/24 07:19 BP 111/67 04/09/24 07:19 Pulse Ox 99 04/09/24 07:19 FiO2 50 04/03/24 01:06 Intake & Output 04/08/24 04/09/24 04/09/24 18:59 06:59 18:59 Output Total 800 500 600 Balance -800 -500 -600 Output: Urine 800 500 600 Other: Voiding Method Indwelling Catheter Indwelling Catheter Indwelling Catheter # Bowel Movements 1 1 - Exam - Constitutional General appearance: Present: average body habitus, cooperative, disheveled - EENT Eyes: Present: EOMI, PERRLA, poor dentition ENT: Present: normal oropharynx Ears: bilateral: normal - Neck Neck: Present: normal ROM Carotids: bilateral: upstroke normal Thyroid: bilateral: normal size - Respiratory Respiratory: bilateral: CTA - Cardiovascular Rhythm: regular Heart sounds: normal: S1, S2 - Gastrointestinal General gastrointestinal: Present: soft - Integumentary Integumentary: Present: normal turgor - Neurologic Neurologic: Present: CNII-XII intact - Musculoskeletal Musculoskeletal: Present: gait normal, generalized weakness - Psychiatric Psychiatric: Present: A&O x's 3, appropriate affect, intact judgment & insight - Labs CBC & Chem 7: 04/09/24 03:35 04/09/24 03:35 Labs: Abnormal Lab Results - Last 24 Hours (Table) 04/08/24 04/08/24 04/09/24 Range/Units 16:37 20:29 03:35 WBC 18.46 H (4.50-10.00) X 10*3/uL RBC 3.14 L (4.10-5.20) X 10*6/uL Hgb 9.6 L (12.0-15.0) g/dL Hct 30.1 L (37.2-46.3) % MCHC 31.9 L (32.0-37.0) g/dL RDW 16.7 H (11.5-14.5) % Immature Gran # 0.17 H (0.00-0.04) X 10*3/uL Neutrophils # 16.72 H (1.80-7.70) X 10*3/uL Lymphocytes # 0.89 L (0.90-5.00) X 10*3/uL Creatinine (0.6-1.5) mg/dL BUN/Creatinine Ratio (12.00-20.00) Ratio Glucose (70-110) mg/dL POC Glucose (mg/dL) 218 H 363 H (70-110) mg/dL Calcium (8.7-10.3) mg/dL Total Bilirubin (0.3-1.2) mg/dL Alkaline Phosphatase (41-126) U/L C-Reactive Protein (0.00-0.80) mg/dL Total Protein (6.2-8.2) g/dL Albumin (3.8-4.9) g/dL Albumin/Globulin Ratio (1.60-3.17) Ratio 04/09/24 04/09/24 04/09/24 Range/Units 03:35 06:25 11:23 WBC (4.50-10.00) X 10*3/uL RBC (4.10-5.20) X 10*6/uL Hgb (12.0-15.0) g/dL Hct (37.2-46.3) % MCHC (32.0-37.0) g/dL RDW (11.5-14.5) % Immature Gran # (0.00-0.04) X 10*3/uL Neutrophils # (1.80-7.70) X 10*3/uL Lymphocytes # (0.90-5.00) X 10*3/uL Creatinine 0.3 L (0.6-1.5) mg/dL BUN/Creatinine Ratio 63.00 H (12.00-20.00) Ratio Glucose 287 H (70-110) mg/dL POC Glucose (mg/dL) 301 H >600 H* (70-110) mg/dL Calcium 7.5 L (8.7-10.3) mg/dL Total Bilirubin <0.2 L (0.3-1.2) mg/dL Alkaline Phosphatase 189 H (41-126) U/L C-Reactive Protein 3.20 H (0.00-0.80) mg/dL Total Protein 3.9 L (6.2-8.2) g/dL Albumin 2.3 L (3.8-4.9) g/dL Albumin/Globulin Ratio 1.44 L (1.60-3.17) Ratio 04/09/24 Range/Units 11:26 WBC (4.50-10.00) X 10*3/uL RBC (4.10-5.20) X 10*6/uL Hgb (12.0-15.0) g/dL Hct (37.2-46.3) % MCHC (32.0-37.0) g/dL RDW (11.5-14.5) % Immature Gran # (0.00-0.04) X 10*3/uL Neutrophils # (1.80-7.70) X 10*3/uL Lymphocytes # (0.90-5.00) X 10*3/uL Creatinine (0.6-1.5) mg/dL BUN/Creatinine Ratio (12.00-20.00) Ratio Glucose (70-110) mg/dL POC Glucose (mg/dL) 299 H (70-110) mg/dL Calcium (8.7-10.3) mg/dL Total Bilirubin (0.3-1.2) mg/dL Alkaline Phosphatase (41-126) U/L C-Reactive Protein (0.00-0.80) mg/dL Total Protein (6.2-8.2) g/dL Albumin (3.8-4.9) g/dL Albumin/Globulin Ratio (1.60-3.17) Ratio Microbiology - Last 24 Hours (Table) 04/07/24 17:30 Urine Culture - Preliminary Urine,Catheterized 04/07/24 12:11 Blood Culture - Preliminary Blood Assessment and Plan Assessment: fluid overload and anasarca, continue gentle diuresis acute on chronic hypoxic respiratory failure COPD healthcare associated pneumonia pulmonary embolism History of systemic candidemia History of chronic constipation Chronic urinary retention insulin-requiring type 2 diabetes mellitus hypertension 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 Chronic decubitus ulcer Plan: continue long and short-acting insulin with sliding scale NovoLog and Levemir continue pain management with [place] 4 times a day as needed Diuresis with Lasix Anticoagulation with Lovenox 40 mg subcu every 12 Bronchodilators with DuoNeb and his steroids Continue blood pressure control with Norvasc continue supplemental oxygen 4 L nasal cannula, patient declined its use the BiPAP machine ID service following and adjusting antibiotics currently on Zosyn and vancomycin along with antifungal agent with very [place] Continue wound care Increase activity as tolerated Time with Patient: Greater than 30
[2024-04-09 16:30] LABS: Glucose,Whole Blood 223 mg/dL (70-110)
[2024-04-09 21:42] LABS: Glucose,Whole Blood 359 mg/dL (70-110)
[2024-04-10 05:52] LABS: Glucose,Whole Blood 106 mg/dL (70-110)
--- NOTE | 2024-04-10 09:19 | P.PN ---
Subjective Progress Note Date: 04/10/24 Principal diagnosis: Lower extremity weakness Patient seen and examined his morning. Patient is resting comfortably in bed. She currently denies any back pain. She does continue with lower extremity weakness. Prescription for LSO brace is in patient's chart. RN has been notifi ed. Patient is status post excisional debridement of sacral decubitus ulcer. Objective - Vital Signs Vital signs: Vital Signs Temp 97.6 F 04/10/24 06:54 Pulse 75 04/10/24 06:54 Resp 20 04/10/24 06:54 BP 154/77 04/10/24 06:54 Pulse Ox 98 04/10/24 06:54 FiO2 50 04/03/24 01:06 Intake & Output 04/09/24 04/10/24 04/10/24 18:59 06:59 18:59 Output Total 1700 200 Balance -1700 -200 Output: Urine 1700 200 Other: Voiding Method Indwelling Catheter Indwelling Catheter # Bowel Movements 2 1 - Exam Inspection: Negative for any open fractures or ecchymosis. Patient is statu post excisional debridement of sacral decubitus ulcer. Sensation: Sensation is equal, symmetric, bilaterally intact throughout the upper and lower extremities Palpation: Nontender to palpation throughout bilateral upper and lower extremities and throughout spine exam Range of motion: Patient does have full range of motion bilateral upper and limited range of motion lower extremities on exam due to her ability to follow commands. Motor: 4/5 in all major motor groups in the bilateral upper and 4-/5 in the lower extremities Special tests: Negative Homans bilaterally. Negative Daniella bilaterally. Negative clonus bilaterally. Neurovascular: Radial pulse intact, 2+ bilaterally. Cap refill under 3 seconds in digits upper extremities. - Labs CBC & Chem 7: 04/09/24 03:35 04/09/24 03:35 Labs: Abnormal Lab Results - Last 24 Hours (Table) 04/09/24 04/09/24 04/09/24 Range/Units 03:35 03:35 11:23 WBC 18.46 H (4.50-10.00) X 10*3/uL RBC 3.14 L (4.10-5.20) X 10*6/uL Hgb 9.6 L (12.0-15.0) g/dL Hct 30.1 L (37.2-46.3) % MCHC 31.9 L (32.0-37.0) g/dL RDW 16.7 H (11.5-14.5) % Immature Gran # 0.17 H (0.00-0.04) X 10*3/uL Neutrophils # 16.72 H (1.80-7.70) X 10*3/uL Lymphocytes # 0.89 L (0.90-5.00) X 10*3/uL Creatinine 0.3 L (0.6-1.5) mg/dL BUN/Creatinine Ratio 63.00 H (12.00-20.00) Ratio Glucose 287 H (70-110) mg/dL POC Glucose (mg/dL) >600 H* (70-110) mg/dL Calcium 7.5 L (8.7-10.3) mg/dL Total Bilirubin <0.2 L (0.3-1.2) mg/dL Alkaline Phosphatase 189 H (41-126) U/L C-Reactive Protein 3.20 H (0.00-0.80) mg/dL Total Protein 3.9 L (6.2-8.2) g/dL Albumin 2.3 L (3.8-4.9) g/dL Albumin/Globulin Ratio 1.44 L (1.60-3.17) Ratio 04/09/24 04/09/24 04/09/24 Range/Units 11:26 16:29 21:40 WBC (4.50-10.00) X 10*3/uL RBC (4.10-5.20) X 10*6/uL Hgb (12.0-15.0) g/dL Hct (37.2-46.3) % MCHC (32.0-37.0) g/dL RDW (11.5-14.5) % Immature Gran # (0.00-0.04) X 10*3/uL Neutrophils # (1.80-7.70) X 10*3/uL Lymphocytes # (0.90-5.00) X 10*3/uL Creatinine (0.6-1.5) mg/dL BUN/Creatinine Ratio (12.00-20.00) Ratio Glucose (70-110) mg/dL POC Glucose (mg/dL) 299 H 223 H 359 H (70-110) mg/dL Calcium (8.7-10.3) mg/dL Total Bilirubin (0.3-1.2) mg/dL Alkaline Phosphatase (41-126) U/L C-Reactive Protein (0.00-0.80) mg/dL Total Protein (6.2-8.2) g/dL Albumin (3.8-4.9) g/dL Albumin/Globulin Ratio (1.60-3.17) Ratio Microbiology - Last 24 Hours (Table) 04/07/24 17:30 Urine Culture - Final Urine,Catheterized Enterococcus faecium VRE Sarah glabrata 04/07/24 12:11 Blood Culture - Preliminary Blood Assessment and Plan Assessment: Bilateral lower extremity weakness Low back/coccyx pain Coccyx pressure ulcer Multiple bilateral lower extremity chronic wounds Deconditioning COPD Other medical comorbidities Plan: At this time we do not recommend any emergent/urgent orthopedic surgical intervention. Patient may follow-up with Dr. Coppola's office for further evaluation as needed. Prescription for LSO brace is in patient's chart. Orthopedics is signing off at this time. Please do not hesitate to contact us for any further questions. 2. Appreciate medical management 3. Pain management -[place] 4. GI prophylaxis -Milk of Mag 5. DVT prophylaxis -Lovenox 6. PT/OT - Continue performing bed exercises as tolerated, weight-bearing as tolerated with a walker as needed. LSO brace is to be worn when up and about, not to be worn in bed or shower. 7. Appreciate consult
[2024-04-10 11:44] LABS: Glucose,Whole Blood 103 mg/dL (70-110)
--- NOTE | 2024-04-10 12:22 | P.PN ---
Subjective Progress Note Date: 04/10/24 64-year-old female patient, known to us, the patient was treated in the hospital when she had a prolonged hospitalization from 01/30/2024 and she was discharged on 03/24/2024 to be readmitted to hospital on 03/29/2024 with worsening shortness of breath and respiratory failure. The patient was seen in emergency department. The patient is a significant respiratory distress and the patient is currently on a BiPAP at a pressure of 12 over 5 cm of water and FiO2 of 50%. Her current respiratory rate is in the low 30s. Blood pressure is stable. The patient is extremely lethargic, weak, has chronic wounds in her lower extremities bilaterally, has an indwelling Horn catheter which was present at the group home she has not she is nonambulatory status in right foot is extremely cloudy with significant amount of debris's and some purulence. Chest x-ray was emergency department and it shows an extensive area of consolidation involving the left lung along with some small bilateral pleural effusions and background COPD. The patient was given Zithromax and Zosyn. ICU consultation was requested This patient is known to have advanced COPD. During her last hospitalization, the patient was in acute hypoxic respiratory failure requiring intubation mechanical ventilation and he was ultimately extubated on 03/17/2024. During the course of her illness, she was bronchoscope and the sputum sample on 03/13/2024 and 03/14/2024 was positive for haemophilus influenza and she was treated accordingly. She was also diagnosed having a right upper lobe pulmonary embolism treated with anticoagulation with Eliquis. During the course of her illness, the patient had systemic candidemia and the blood cultures was on 02/11/2024 was positive for Sarah albicans and the bronchial washings also showed Sarah glabrata. Urine culture was also positive for Sarah. The patient was given IV Diflucan and she completed the course of antifungal treatment. Her echocardiogram showed no evidence of any vegetation and her left-ventricular ejection fraction was essentially within normal limits. Infection and a hyperdynamic heart with an EF of around 70 to 75%. No significant valvular abnormalities. Her current labs show a white cell count of 22.3 which has been elevated since her discharge from the hospital, hemoglobin 11.7 and platelet count is 407, serum bicarbonate 30 and sodium levels of 134, BUN is 22 with a creatinine of 0.25. LFTs are within normal limits. Most recent procalcitonin level from 03/24/2024 was at 0.08. Blood cultures have been sent. On 03/30/2024, the patient was taken off the BiPAP and the patient has been transitioned to oxygen at 3 L/min nasal cannula. No new complaints. Chest x- ray findings are essentially unchanged. The patient has stable right basilar and left midlung consolidation and bilateral pleural effusions. Nevertheless, she seems to be much more comfortable. She continues to have a congested cough and she is on a broad-spectrum antibiotics and the patient is currently on a combination of cefepime, vancomycin and voriconazole. Awaiting follow-up cul tures on this patient. The white cell count is down to 18 with a hemoglobin 10.3 and a platelet count of 350. Electrolytes are stable with a BUN of 25 and a creatinine of 0.2. Procalcitonin level is at 0.57. She is weak yet awake and alert. Communicating. She has chronic wounds in lower extremities and some ongoing +1 edema lower extremities bilaterally. Moving all 4 extremities other than limitation. No altered mentation at this point in time. On 03/31/2024, the patient is stable. The patient remains on 40 Suboxone by nasal cannula. The patient does receive with IV Lasix and she is in a negative fluid balance of 1.8 L over the past 24 hours. Meanwhile, chest x-ray from today shows stable bilateral pulm infiltrates. The patient remains on the same antibiotic coverage includes cefepime, vancomycin and voriconazole. Blood cultures are still negative. The white cell count of 19 with a hemoglobin 10.7 and platelet count of 383. BUN is 23 with a creatinine 0.3. Sodium level is at 137. The patient continues to have wound care to lower extremities. Awake and alert and communicating. Remains on bronchodilators. Remains on steroids. Remains on Levemir insulin for blood sugar control at 15 units at bedtime and a sliding scale coverage. No other significant events overnight. The patient is being seen for a follow-up. The patient is doing well. No specific complaints. Continues to diurese. Blood cultures are negative the patient remains on the same antibiotic coverage. The white cell count from today is at 23 with a hemoglobin of 10 and a platelet count of 334. Electrolytes are all stable with a BUN of 19 and a creatinine of 0.3. Sodium levels at 141. No other significant events overnight. She is currently on oxygen at 4 L/min nasal cannula. 04/02/2024, the patient is doing well. She continues B12 with Lasix and the patient is -2.9 L over the past 24 hours. Edema is improving. Meanwhile, repeat chest x-ray was done and the pulmonary findings are essentially stable. The white cell count from yesterday was 23 and awaiting follow-up labs from to day. Renal function is also stable from yesterday. The patient remains on IV Lasix. The patient remains on cefepime vancomycin and voriconazole. Cultures are negative thus far. No interval worsening shortness of breath. No new findings or new complaints for now. She remains stable on 4 L of oxygen by nasal cannula. The patient is seen today April 03, 2024 in follow-up on the regular medical floor. She is currently sitting up in bed. Awake and alert in no acute distress. She is maintaining O2 saturations in the 90s on 4 L/min per nasal cannula. She has been refusing BiPAP support at night. She has been refusing to get up out of bed. She does have a wound on her coccyx. She is having some issues with diarrhea. Chest x-ray reveals left perihilar and right lower lobe infiltrates. She remains on cefepime and voriconazole. She denies any shortness of breath, cough or congestion. No fever or chills. 7. Bicarb 30. BUN 23. Creatinine 0.19. Glucose 84. She is continued on inhalations, Pulmicort and Perforomist inhalations, Solu-Medrol. The patient is seen today April 04, 2024 in follow-up on the regular medical floor. She is awake and alert in no acute distress. She continues to be reluctant to move about or get up out of bed or even have staff change her when she has had a bowel movement. She does have an unstageable ulcer on her sacrum and multiple nonhealing ulcers of the bilateral lower extremities with fat layer exposure that is being followed by wound center's nurse practitioner. Glucose 90. She is continued on DuoNeb inhalations, Pulmicort and Perforomist inhalations, prednisone. The patient is seen today April 05, 2024 in follow-up on the regular medical floor. She is sitting up in bed. Awake and alert in no acute distress. Maintaining O2 saturations in the 90s on 4 L/min per nasal cannula. She is continued on DuoNeb inhalations, Symbicort, prednisone taper. Currently on Omnicef and voriconazole. Remains on diuretics. Glucose 205. C. difficile screen was negative. The patient is seen today April 06, 2024 in follow-up on the regular medical floor. She is awake and alert in no acute distress. Resting comfortably in bed. Denies any worsening shortness of breath, cough or congestion. Maintaining O2 saturations in the 90s up to 100% on 4 L/min per nasal cannula. She is afebrile. Hemodynamically stable. She is being followed by the wound center for an unstageable pressure ulcer on her sacrum and lower extremity ulcerations and inflammation. And voriconazole. She remains on DuoNeb inhalations, Symbicort, prednisone taper. Lovenox for DVT prophylaxis. Remains on oral diuretics. Globin 10.4. Platelets 307. Sodium 138. Potassium 3.6. Bicarb 29. BUN 16. Creatinine 0.2. Glucose 103. The patient is seen today April 07, 2024 in follow-up on the regular medical floor. She is resting comfortably in bed. Awake and alert in no acute distress. Denies any worsening shortness of breath, cough or congestion. She i s maintaining good O2 saturations in the upper 90s on 3 L/min per nasal cannula. She has been afebrile. Hemodynamically stable. White count 22.3. Hemoglobin 10.0. Platelets 337. Sodium 137. Potassium 3.9. Bicarb 27. BUN 17. Creatinine 0.2. Glucose 304. AST 17. ALT 21. She is continued on DuoNeb inhalations, Symbicort. Lovenox for DVT prophylaxis. Prednisone taper. Antibiotics in the form of Omnicef. Remains on oral diuretics. Currently in a -1.1 L balance. The patient is seen today April 08, 2024 in follow-up on the regular medical floor. She is awake and alert in no acute distress. She is resting comfortably in bed. She denies any worsening shortness of breath, cough or congestion. A CT scan of the chest abdomen and pelvis was performed yesterday. Lung findings revealed small lower lobe infiltrates with a small right effusion and moderate left effusion. No masses. No lymphadenopathy. There is mild to moderate ascites. Marked anasarca. Nonhealed right pubic bone fracture. Healed fractures of the bilateral inferior pubic rami. Orthopedics had been consulted yesterday. Glucose 251. She is stable on 3 L nasal cannula with O2 saturation of 98%. Afebrile. Hemodynamically stable. She remains on DuoNeb inhalations, Symbicort, prednisone. Lovenox for DVT prophylaxis. Antibiotics in the form of Omnicef. Blood and urine cultures negative. The patient is seen today April 09, 2024 in follow-up on the regular medical floor. She is resting comfortably in bed. Awake and alert in no acute distress. She is maintaining good O2 saturations in the high 90s on 2 L/min per nasal cannula. She is afebrile. Hemodynamically stable. She remains on DuoNeb inhalations, Symbicort, prednisone. Lovenox for DVT prophylaxis. Antibiotics in the form of Omnicef. Blood and urine cultures negative. White count 18.4. Hemoglobin 9.6. Platelets 411. Sodium 138. Potassium 3.5. Bicarb 27. BUN 19. Creatinine 0.3. Glucose 287. The patient is seen today April 10, 2024 in follow-up on the regular medical floor. She is awake and alert in no acute distress. Resting comfortably in bed. Denies any worsening shortness of breath, cough or congestion. She is maintaining O2 saturation in the 90s on 2 L/min per nasal cannula. Afebrile. Hemodynamically stable. Urine culture was positive for Enterococcus faecium VRE and Sarah glabrata. She remains on Omnicef, Flagyl, voriconazole. Continued on bronchodilators and prednisone taper. Glucose 103. Objective - Vital Signs Vital signs: Vital Signs Temp 97.6 F 04/10/24 06:54 Pulse 84 04/10/24 09:35 Resp 20 04/10/24 06:54 BP 154/77 04/10/24 06:54 Pulse Ox 100 04/10/24 09:25 FiO2 50 04/03/24 01:06 Intake & Output 04/09/24 04/10/24 04/10/24 18:59 06:59 18:59 Intake Total 0 Output Total 1700 200 Balance -1700 -200 0 Weight 67.8 kg Intake: Oral 0 Output: Urine 1700 200 Other: Voiding Method Indwelling Catheter Indwelling Catheter Indwelling Catheter # Bowel Movements 2 1 - Exam GENERAL EXAM: Awake, alert 64-year-old female, resting fairly comfortably in bed, on 2 L of oxygen by nasal cannula. HEAD: Normocephalic and atraumatic EYES: Normal reaction of pupils, equal size. NOSE: Clear with pink turbinates. THROAT: No erythema or exudates. NECK: No masses, no JVD. CHEST: No chest wall deformity. LUNGS: Diminished breath sounds at the bases with few scattered rhonchi and crackles. CVS: Distant S1-S2, no S3 gallop, no murmur. ABDOMEN: Soft nontender no rebound no guarding. Bowel sounds. SKIN: Unstageable pressure injury on the sacrum. Bilateral lower extremity wounds. Multiple superficial ulcerations noted in both lower extremities. No active drainage. Currently with Flaco wraps. Pulses in lower extremities present. There are some edema in her ankles bilaterally and some edema in the upper extremities bilaterally. CENTRAL NERVOUS SYSTEM: Alert and oriented x 3, no gross focal neurologic defici t, moving all 4 extremities other than limitation. EXTREMITIES: Wraps to the bilateral lower extremities. Pulses are intact. - Labs CBC & Chem 7: 04/09/24 03:35 04/09/24 03:35 Labs: Abnormal Lab Results - Last 24 Hours (Table) 04/09/24 04/09/24 Range/Units 16:29 21:40 POC Glucose (mg/dL) 223 H 359 H (70-110) mg/dL Microbiology - Last 24 Hours (Table) 04/07/24 17:30 Urine Culture - Final Urine,Catheterized Enterococcus faecium VRE Sarah glabrata 04/07/24 12:11 Blood Culture - Preliminary Blood Assessment and Plan Assessment: Acute hypoxic respiratory failure requiring BiPAP support, secondary to acute multifocal pneumonia, the patient developed new infiltration of the lungs more extensive on the left, consider the possibility of healthcare associated pneumonia. The patient is improved and stable. On 3 L of oxygen by nasal cannula. Chest x-ray findings are showing stable bilateral pulmonary consolidation left more than right. Remains on Omnicef. CT scan of the chest from 04/07/2024 revealed bibasilar infiltrates and pleural effusions left greater than right. Findings are evident of postinflammatory changes from her previous pneumonia. Previous history of multifocal pneumonia, secondary to Haemophilus influenzae, diagnosed via bronchoscopy and BAL Urinary tract infection secondary to Enterococcus faecium VRE and Sarah glabrata. Remains on Omnicef, Flagyl, voriconazole COPD Known history of a right upper lobe pulmonary embolism, CT angiogram this admission on March 29, 2024 revealed no evidence of pulmonary embolism. Resolution of previously seen pulmonary embolism. History of systemic candidemia, completed a course of Diflucan. The patient was also being given voriconazole on outpatient basis. Most recent positive blood culture was done 02/11/2024. The patient also had Sarah in her urine on 01/29/2024) and Sarah glabrata in the sputum on 03/14/2024. Chronic urinary retention with indwelling Horn catheter, rule out recurrent infection History of constipation status post decompressive sigmoidoscopy during her previous hospitalization Type 2 diabetes, maintained on insulin Benign essential hypertension Dyslipidemia Severe protein calorie malnutrition Chronic unstageable decubitus pressure ulcer and multiple skin ulcerations involving both lower extremities Plan: The patient was seen and evaluated Medications and labs reviewed Urine culture reviewed Antibiotics per ID service Remains on bronchodilators and steroids Titrate down the FiO2 as tolerated Plan is to return to [facility] at discharge I have personally seen and examined the patient, performed the documentation and the assessment and plan as written. Number of minutes spent on the visit: 10.
--- NOTE | 2024-04-10 13:40 | PN ---
PROGRESS NOTE SUBJECTIVE: Sha Lucio was admitted. She has severely decubitus ulcer in her sacral area. Surgery is being consulted for a surgical debridement. Dr. Washburn took her on the for an excisional debridement, sacral decubitus ulcer. Wait for further recommendations depending on the cultures which come back. Sugars have been 100s to 200s to 300s after surgery, now down to 100s. back issue is improving. Hemoglobin is 9.6. Urine culture came back with Enterococcus faecium, VRE, Sarah, . Wait for recommendation from Dr. Pathak for further antibiotics for her. She will need some antibiotics, wait for cultures on her sacral ulcer. Diabetes is better controlled now. She also has aspiration pneumonia, generalized weakness. She is going to physical therapy. White count is now down at 18.36. Continue on Omnicef and Flagyl. White count is trending down. Continue current treatment, possibly wound VAC. PROGNOSIS: Guarded. MMODL / IJN: [id number] /
--- NOTE | 2024-04-10 14:31 | P.PN ---
Subjective Progress Note Date: 04/10/24 CHIEF COMPLAINT: Sacral decubitus ulcer HISTORY OF PRESENT ILLNESS: Patient is postop day #1 status post excisional debridement of sacral decubitus ulcer. Patient lying in bed comfortably. She reports her pain is controlled. Afebrile. WBC from yesterday 18.4 PHYSICAL EXAM: VITAL SIGNS: Reviewed. GENERAL: no acute distress. ABDOMEN: Soft. Nondistended. Nontender. ASSESSMENT: 1. Sacral decubitus ulcer 2. Pneumonia PLAN: -Continue antibiotics -Continue local wound care -Continue offloading -Continue pain management Physician Shield Runner note has been reviewed by physician. Signing provider agrees with the documented findings, assessment, and plan of care. I have personally seen and examined the patient, reviewed the THERMAL INTELLIGENCE ANALYST /PAs history, exam and MDM and agree with the assessment and plan as written. Based on total visit time, I have performed more than 50% of the visit. As above: Patient's wound is improved today. No pain. Will sign off. Please reconsult if further debridement required. Objective - Vital Signs Vital signs: Vital Signs Temp 98.1 F 04/10/24 14:06 Pulse 99 04/10/24 14:06 Resp 20 04/10/24 14:06 BP 149/67 04/10/24 14:06 Pulse Ox 98 04/10/24 14:06 FiO2 50 04/03/24 01:06 Intake & Output 04/09/24 04/10/24 04/10/24 18:59 06:59 18:59 Intake Total 0 Output Total 1700 200 Balance -1700 -200 0 Weight 67.8 kg Intake: Oral 0 Output: Urine 1700 200 Other: Voiding Method Indwelling Catheter Indwelling Catheter Indwelling Catheter # Bowel Movements 2 1 - Labs CBC & Chem 7: 04/09/24 03:35 04/09/24 03:35 Labs: Abnormal Lab Results - Last 24 Hours (Table) 04/09/24 04/09/24 Range/Units 16:29 21:40 POC Glucose (mg/dL) 223 H 359 H (70-110) mg/dL Microbiology - Last 24 Hours (Table) 04/07/24 17:30 Urine Culture - Final Urine,Catheterized Enterococcus faecium VRE Sarah glabrata 04/07/24 12:11 Blood Culture - Preliminary Blood
[2024-04-10 16:27] LABS: Glucose,Whole Blood 260 mg/dL (70-110)
--- NOTE | 2024-04-10 17:54 | P.PN ---
Subjective Progress Note Date: 04/10/24 Principal diagnosis: Reason for follow-up is pneumonia Patient is a 54-year-old female with a past medical history significant for diabetes mellitus hypertension hyperlipidemia PE COPD had recent admission to the hospital treated for pneumonia sputum was positive for H aemophilus influenzae [facility] back to the hospital worsening respiratory status and concern for possible pneumonia requiring admission in the ICU. On today's evaluation that is 04/10/2024,the patient denies any fever or any chills, patient is breathing comfortably on 2 L nasal oxygen, the patient denies chest pain shortness of breath and no significant cough, patient denies abdominal pain, no nausea vomiting or any worsening diarrhea. No new lab has been repeated today patient urine is growing Sarah glabrata and VRE Objective - Vital Signs Vital signs: Vital Signs Temp 97.6 F 04/10/24 06:54 Pulse 88 04/10/24 12:54 Resp 20 04/10/24 06:54 BP 154/77 04/10/24 06:54 Pulse Ox 100 04/10/24 09:25 FiO2 50 04/03/24 01:06 Intake & Output 04/09/24 04/10/24 04/10/24 18:59 06:59 18:59 Intake Total 0 Output Total 1700 200 Balance -1700 -200 0 Weight 67.8 kg Intake: Oral 0 Output: Urine 1700 200 Other: Voiding Method Indwelling Catheter Indwelling Catheter Indwelling Catheter # Bowel Movements 2 1 - Exam GENERAL DESCRIPTION: Middle-age female lying in bed in no distress RESPIRATORY SYSTEM: Unlabored breathing , decreased breath sounds at bases HEART: S1 S2 regular rate and rhythm , ABDOMEN: Soft , no tenderness EXTREMITIES: No edema feet - Labs CBC & Chem 7: 04/09/24 03:35 04/09/24 03:35 Labs: Abnormal Lab Results - Last 24 Hours (Table) 04/09/24 04/09/24 Range/Units 16:29 21:40 POC Glucose (mg/dL) 223 H 359 H (70-110) mg/dL Microbiology - Last 24 Hours (Table) 04/07/24 17:30 Urine Culture - Final Urine,Catheterized Enterococcus faecium VRE Sarah glabrata 04/07/24 12:11 Blood Culture - Preliminary Blood Assessment and Plan (1) Leukocytosis Current Visit: Yes Status: Acute Code(s): D72.829 - ELEVATED WHITE BLOOD CELL COUNT, UNSPECIFIED SNOMED Code(s): 057910832 (2) Pneumonia Current Visit: Yes Status: Acute Code(s): J18.9 - PNEUMONIA, UNSPECIFIED ORGANISM SNOMED Code(s): 102501579 Plan: 1patient was in the hospital with sepsis in this patient who did have a leukocytosis tachycardia hypoxemia admitted currently for SIRS/sepsis source likely pneumonia concern for possible gram-negative versus gram-positive recently treated for Haemophilus influenzae pneumonia 2 blood culture remains to be negative, urine for Legionella antigen currently pending procalcitonin was mildly elevated 0.57 on the patient nasal screen MRSA has been negative 3-patient remains to be afebrile patient, stool for C. difficile is negative to continue Questran as needed 4patient did have worsening of her sacral pressure ulcer with significant mount of slough necrotic tissue for which general surgery has been consulted and apparently did have bedside debridement done this morning per the patient 5-patient did have urine culture done by admitting but no UA was done which is now growing Sarah glabrata and VRE we will check a UA add daptomycin pending repeat UA to be completed Dictation was produced using [employer] dictation software. please excuse any grammatical, word or spelling errors. Time with Patient: Less than 30
[2024-04-10 19:17] LABS: Appearance,Urine Clear (Clear); Bilirubin,Urine Negative (Negative); Blood,Urine Trace (Negative); Budding Yeast,Urine Many /hpf; Color,Urine Yellow; Glucose,Urine (UA) 4+ (Negative); Hyaline Casts,Urine 1 /lpf (0-2); Ketones,Urine Negative (Negative); Leukocyte Esterase,Urine Moderate (Negative); Mucus,Urine Rare /hpf; Nitrite,Urine Negative (Negative); Protein,Urine Negative (Negative); RBC,Urine 18 /hpf (0-5); Specific Gravity,Urine 1.019 (1.001-1.035); Squamous Epithelial Cell,Urine <1 /hpf (0-4); Urobilinogen,Urine <2.0 mg/dL (<2.0); WBC,Urine 4 /hpf (0-5)
[2024-04-10 20:53] LABS: Glucose,Whole Blood 354 mg/dL (70-110)
[2024-04-11 06:10] LABS: Glucose,Whole Blood 191 mg/dL (70-110)
[2024-04-11 08:44] LABS: Basophils # (A) 0.04 X 10*3/uL (0.00-0.10); Basophils % (A) 0.3 %; Eosinophils # (A) 0.12 X 10*3/uL (0.04-0.35); Eosinophils % (A) 0.8 %; HCT 30.5 % (37.2-46.3); HGB 9.7 g/dL (12.0-15.0); Lymphocytes # (A) 0.82 X 10*3/uL (0.90-5.00); Lymphocytes % (A) 5.7 %; MCH 30.9 pg (27.0-32.0); MCHC 31.8 g/dL (32.0-37.0); MCV 97.1 FL (80.0-97.0); Mean Platelet Volume 9.9 FL (9.5-12.2); Monocytes # (A) 0.56 X 10*3/uL (0.20-1.00); Monocytes % (A) 3.9 %; NRBC Per 100 WBC 0 X 10*3/uL (0.00-0.01); Neutrophils # (A) 12.79 X 10*3/uL (1.80-7.70); Neutrophils % (A) 88.4 %; Platelet Count 463 X 10*3/uL (140-440); RBC 3.14 X 10*6/uL (4.10-5.20); WBC 14.46 X 10*3/uL (4.50-10.00)
[2024-04-11 11:20] LABS: Glucose,Whole Blood 176 mg/dL (70-110)
[2024-04-11 12:12] LABS: ALT 21 U/L (8-44); AST 18 U/L (13-35); Albumin 2.4 g/dL (3.8-4.9); Albumin/Globulin Ratio 1.41 Ratio (1.60-3.17); Alkaline Phosphatase 215 U/L (41-126); Blood Urea Nitrogen 16.4 mg/dL (9.0-27.0); Calcium 7.7 mg/dL (8.7-10.3); Carbon Dioxide 26.4 mmol/L (21.6-31.8); Chloride 105 mmol/L (96-109); Globulin 1.7 g/dL (1.6-3.3); Glucose 160 mg/dL (70-110); Potassium 3.7 mmol/L (3.5-5.5); Sodium 143 mmol/L (135-145); Total Bilirubin <0.2 mg/dL (0.3-1.2); Total Protein 4.1 g/dL (6.2-8.2)
--- NOTE | 2024-04-11 13:51 | PN ---
PROGRESS NOTE SUBJECTIVE: This is a 64-year-old white female with sacral debridement ulcer. Waiting for possible wound VAC to be placed by Dr. Washburn. Continue with Infectious Disease. Wait for cultures. She is status post debridement. White count decreased to 18.4. Offloading. Pain management. Local wound care. Antibiotics. Possibly do wound VAC if surgery will do it. Continue to monitor hemoglobin down to 14 today which is improved. Awaiting rehab placement PEs based on cultures that come back from the debridement. Wait for Dr. Pathak's recommendations. PROGNOSIS: Guarded. MMODL / IJN: [id number] /
--- NOTE | 2024-04-11 14:19 | P.PN ---
Subjective Progress Note Date: 04/11/24 64-year-old female patient, known to us, the patient was treated in the hospital when she had a prolonged hospitalization from 01/30/2024 and she was discharged on 03/24/2024 to be readmitted to hospital on 03/29/2024 with worsening shortness of breath and respiratory failure. The patient was seen in emergency department. The patient is a significant respiratory distress and the patient is currently on a BiPAP at a pressure of 12 over 5 cm of water and FiO2 of 50%. Her current respiratory rate is in the low 30s. Blood pressure is stable. The patient is extremely lethargic, weak, has chronic wounds in her lower extremities bilaterally, has an indwelling Horn catheter which was present at the [place] [facility] she has not she is nonambulatory status in right foot is extremely cloudy with significant amount of debris's and some purulence. Chest x-ray was emergency department and it shows an extensive area of consolidation involving the left lung along with some small bilateral pleural effusions and background COPD. The patient was given Zithromax and Zosyn. ICU consultation was requested This patient is known to have advanced COPD. During her last hospitalization, the patient was in acute hypoxic respiratory failure requiring intubation mechanical ventilation and he was ultimately extubated on 03/17/2024. During the course of her illness, she was bronchoscope and the sputum sample on 03/13/2024 and 03/14/2024 was positive for haemophilus influenza and she was treated accordingly. She was also diagnosed having a right upper lobe pulmonary embolism treated with anticoagulation with Eliquis. During the course of her illness, the patient had systemic candidemia and the blood cultures was on 02/11/2024 was positive for Sarah albicans and the bronchial washings also showed Sarah glabrata. Urine culture was also positive for Sarah. The patient was given IV Diflucan and she completed the course of antifungal treatment. Her echocardiogram showed no evidence of any vegetation and her left-ventricular ejection fraction was essentially within normal limits. Infection and a hyperdynamic heart with an EF of around 70 to 75%. No significant valvular abnormalities. Her current labs show a white cell count of 22.3 which has been elevated since her discharge from the hospital, hemoglobin 11.7 and platelet count is 407, serum bicarbonate 30 and sodium levels of 134, BUN is 22 with a creatinine of 0.25. LFTs are within normal limits. Most recent procalcitonin level from 03/24/2024 was at 0.08. Blood cultures have been sent. On 03/30/2024, the patient was taken off the BiPAP and the patient has been transitioned to oxygen at 3 L/min nasal cannula. No new complaints. Chest x- ray findings are essentially unchanged. The patient has stable right basilar and left midlung consolidation and bilateral pleural effusions. Nevertheless, she seems to be much more comfortable. She continues to have a congested cough and she is on a broad-spectrum antibiotics and the patient is currently on a combination of cefepime, vancomycin and voriconazole. Awaiting follow-up cul tures on this patient. The white cell count is down to 18 with a hemoglobin 10.3 and a platelet count of 350. Electrolytes are stable with a BUN of 25 and a creatinine of 0.2. Procalcitonin level is at 0.57. She is weak yet awake and alert. Communicating. She has chronic wounds in lower extremities and some ongoing +1 edema lower extremities bilaterally. Moving all 4 extremities other than limitation. No altered mentation at this point in time. On 03/31/2024, the patient is stable. The patient remains on 40 Suboxone by nasal cannula. The patient does receive with IV Lasix and she is in a negative fluid balance of 1.8 L over the past 24 hours. Meanwhile, chest x-ray from today shows stable bilateral pulm infiltrates. The patient remains on the same antibiotic coverage includes cefepime, vancomycin and voriconazole. Blood cultures are still negative. The white cell count of 19 with a hemoglobin 10.7 and platelet count of 383. BUN is 23 with a creatinine 0.3. Sodium level is at 137. The patient continues to have wound care to lower extremities. Awake and alert and communicating. Remains on bronchodilators. Remains on steroids. Remains on Levemir insulin for blood sugar control at 15 units at bedtime and a sliding scale coverage. No other significant events overnight. The patient is being seen for a follow-up. The patient is doing well. No specific complaints. Continues to diurese. Blood cultures are negative the patient remains on the same antibiotic coverage. The white cell count from today is at 23 with a hemoglobin of 10 and a platelet count of 334. Electrolytes are all stable with a BUN of 19 and a creatinine of 0.3. Sodium levels at 141. No other significant events overnight. She is currently on oxygen at 4 L/min nasal cannula. 04/02/2024, the patient is doing well. She continues B12 with Lasix and the patient is -2.9 L over the past 24 hours. Edema is improving. Meanwhile, repeat chest x-ray was done and the pulmonary findings are essentially stable. The white cell count from yesterday was 23 and awaiting follow-up labs from to day. Renal function is also stable from yesterday. The patient remains on IV Lasix. The patient remains on cefepime vancomycin and voriconazole. Cultures are negative thus far. No interval worsening shortness of breath. No new findings or new complaints for now. She remains stable on 4 L of oxygen by nasal cannula. The patient is seen today April 03, 2024 in follow-up on the regular medical floor. She is currently sitting up in bed. Awake and alert in no acute distress. She is maintaining O2 saturations in the 90s on 4 L/min per nasal cannula. She has been refusing BiPAP support at night. She has been refusing to get up out of bed. She does have a wound on her coccyx. She is having some issues with diarrhea. Chest x-ray reveals left perihilar and right lower lobe infiltrates. She remains on cefepime and voriconazole. She denies any shortness of breath, cough or congestion. No fever or chills. 7. Bicarb 30. BUN 23. Creatinine 0.19. Glucose 84. She is continued on inhalations, Pulmicort and Perforomist inhalations, Solu-Medrol. The patient is seen today April 04, 2024 in follow-up on the regular medical floor. She is awake and alert in no acute distress. She continues to be reluctant to move about or get up out of bed or even have staff change her when she has had a bowel movement. She does have an unstageable ulcer on her sacrum and multiple nonhealing ulcers of the bilateral lower extremities with fat layer exposure that is being followed by wound center's nurse practitioner. Glucose 90. She is continued on DuoNeb inhalations, Pulmicort and Perforomist inhalations, prednisone. The patient is seen today April 05, 2024 in follow-up on the regular medical floor. She is sitting up in bed. Awake and alert in no acute distress. Maintaining O2 saturations in the 90s on 4 L/min per nasal cannula. She is continued on DuoNeb inhalations, Symbicort, prednisone taper. Currently on Omnicef and voriconazole. Remains on diuretics. Glucose 205. C. difficile screen was negative. The patient is seen today April 06, 2024 in follow-up on the regular medical floor. She is awake and alert in no acute distress. Resting comfortably in bed. Denies any worsening shortness of breath, cough or congestion. Maintaining O2 saturations in the 90s up to 100% on 4 L/min per nasal cannula. She is afebrile. Hemodynamically stable. She is being followed by the wound center for an unstageable pressure ulcer on her sacrum and lower extremity ulcerations and inflammation. And voriconazole. She remains on DuoNeb inhalations, Symbicort, prednisone taper. Lovenox for DVT prophylaxis. Remains on oral diuretics. Globin 10.4. Platelets 307. Sodium 138. Potassium 3.6. Bicarb 29. BUN 16. Creatinine 0.2. Glucose 103. The patient is seen today April 07, 2024 in follow-up on the regular medical floor. She is resting comfortably in bed. Awake and alert in no acute distress. Denies any worsening shortness of breath, cough or congestion. She i s maintaining good O2 saturations in the upper 90s on 3 L/min per nasal cannula. She has been afebrile. Hemodynamically stable. White count 22.3. Hemoglobin 10.0. Platelets 337. Sodium 137. Potassium 3.9. Bicarb 27. BUN 17. Creatinine 0.2. Glucose 304. AST 17. ALT 21. She is continued on DuoNeb inhalations, Symbicort. Lovenox for DVT prophylaxis. Prednisone taper. Antibiotics in the form of Omnicef. Remains on oral diuretics. Currently in a -1.1 L balance. The patient is seen today April 08, 2024 in follow-up on the regular medical floor. She is awake and alert in no acute distress. She is resting comfortably in bed. She denies any worsening shortness of breath, cough or congestion. A CT scan of the chest abdomen and pelvis was performed yesterday. Lung findings revealed small lower lobe infiltrates with a small right effusion and moderate left effusion. No masses. No lymphadenopathy. There is mild to moderate ascites. Marked anasarca. Nonhealed right pubic bone fracture. Healed fractures of the bilateral inferior pubic rami. Orthopedics had been consulted yesterday. Glucose 251. She is stable on 3 L nasal cannula with O2 saturation of 98%. Afebrile. Hemodynamically stable. She remains on DuoNeb inhalations, Symbicort, prednisone. Lovenox for DVT prophylaxis. Antibiotics in the form of Omnicef. Blood and urine cultures negative. The patient is seen today April 09, 2024 in follow-up on the regular medical floor. She is resting comfortably in bed. Awake and alert in no acute distress. She is maintaining good O2 saturations in the high 90s on 2 L/min per nasal cannula. She is afebrile. Hemodynamically stable. She remains on DuoNeb inhalations, Symbicort, prednisone. Lovenox for DVT prophylaxis. Antibiotics in the form of Omnicef. Blood and urine cultures negative. White count 18.4. Hemoglobin 9.6. Platelets 411. Sodium 138. Potassium 3.5. Bicarb 27. BUN 19. Creatinine 0.3. Glucose 287. The patient is seen today April 10, 2024 in follow-up on the regular medical floor. She is awake and alert in no acute distress. Resting comfortably in bed. Denies any worsening shortness of breath, cough or congestion. She is maintaining O2 saturation in the 90s on 2 L/min per nasal cannula. Afebrile. Hemodynamically stable. Urine culture was positive for Enterococcus faecium VRE and Sarah glabrata. She remains on Omnicef, Flagyl, voriconazole. Continued on bronchodilators and prednisone taper. Glucose 103. The patient is seen today April 11, 2024 in follow-up on the regular medical floor. She is resting in bed. Awake and alert in no acute distress. She denies any worsening shortness of breath, cough or congestion. She is maintaining good O2 saturations in the 90s on 2 L/min per nasal cannula. She h as normal saline at 70 mL/h. She remains on Flagyl, daptomycin, Omnicef. She is continued on DuoNeb ventilations, Symbicort, prednisone. Remains on oral diuretics. Lovenox. White count 14.4. Hemoglobin 9.7. Platelets 463. Sodium 143. Potassium 3.7. Bicarb 26. BUN 16. Creatinine 0.2. Glucose 160. Objective - Vital Signs Vital signs: Vital Signs Temp 98.4 F 04/11/24 06:58 Pulse 96 04/11/24 12:13 Resp 20 04/11/24 06:58 BP 128/75 04/11/24 06:58 Pulse Ox 94 L 04/11/24 06:58 FiO2 50 04/03/24 01:06 Intake & Output 04/10/24 04/11/24 04/11/24 18:59 06:59 18:59 Intake Total 0 Output Total 725 500 230 Balance -160 -500 -056 Weight 67.8 kg Intake: Oral 0 Output: Urine 725 500 475 Other: Voiding Method Indwelling Catheter Indwelling Catheter Indwelling Catheter # Bowel Movements 0 2 - Exam GENERAL EXAM: Awake, 64-year-old female, resting comfortably in bed, on 2 L of oxygen by nasal cannula. HEAD: Normocephalic and atraumatic EYES: Normal reaction of pupils, equal size. NOSE: Clear with pink turbinates. THROAT: No erythema or exudates. NECK: No masses, no JVD. CHEST: No chest wall deformity. LUNGS: Diminished breath sounds at the bases with few scattered rhonchi and crackles. CVS: Distant S1-S2, no S3 gallop, no murmur. ABDOMEN: Soft nontender no rebound no guarding. Bowel sounds. SKIN: Unstageable pressure injury on the sacrum. Bilateral lower extremity wounds. Multiple superficial ulcerations noted in both lower extremities. No active drainage. Currently with Flaco wraps. Pulses in lower extremities present. There are some edema in her ankles bilaterally and some edema in the upper extremities bilaterally. CENTRAL NERVOUS SYSTEM: Alert and oriented x 3, no gross focal neurologic d eficit, moving all 4 extremities other than limitation. EXTREMITIES: Wraps to the bilateral lower extremities. Pulses are intact. - Labs CBC & Chem 7: 04/11/24 05:10 04/11/24 05:10 Labs: Abnormal Lab Results - Last 24 Hours (Table) 04/10/24 04/10/24 04/10/24 Range/Units 16:22 19:00 20:49 WBC (4.50-10.00) X 10*3/uL RBC (4.10-5.20) X 10*6/uL Hgb (12.0-15.0) g/dL Hct (37.2-46.3) % MCV (80.0-97.0) FL MCHC (32.0-37.0) g/dL RDW (11.5-14.5) % Plt Count (140-440) X 10*3/uL Immature Gran # (0.00-0.04) X 10*3/uL Neutrophils # (1.80-7.70) X 10*3/uL Lymphocytes # (0.90-5.00) X 10*3/uL Creatinine (0.6-1.5) mg/dL BUN/Creatinine Ratio (12.00-20.00) Ratio Glucose (70-110) mg/dL POC Glucose (mg/dL) 260 H 354 H (70-110) mg/dL Calcium (8.7-10.3) mg/dL Total Bilirubin (0.3-1.2) mg/dL Alkaline Phosphatase (41-126) U/L Total Protein (6.2-8.2) g/dL Albumin (3.8-4.9) g/dL Albumin/Globulin Ratio (1.60-3.17) Ratio Urine Glucose (UA) 4+ H (Negative) Urine Blood Trace H (Negative) Ur Leukocyte Esterase Moderate H (Negative) Urine RBC 18 H (0-5) /hpf Urine Mucus Rare H (None) /hpf Urine Yeast (Budding) Many H (None) /hpf 04/11/24 04/11/24 04/11/24 Range/Units 05:10 05:10 06:07 WBC 14.46 H (4.50-10.00) X 10*3/uL RBC 3.14 L (4.10-5.20) X 10*6/uL Hgb 9.7 L (12.0-15.0) g/dL Hct 30.5 L (37.2-46.3) % MCV 97.1 H (80.0-97.0) FL MCHC 31.8 L (32.0-37.0) g/dL RDW 17.0 H (11.5-14.5) % Plt Count 463 H (140-440) X 10*3/uL Immature Gran # 0.13 H (0.00-0.04) X 10*3/uL Neutrophils # 12.79 H (1.80-7.70) X 10*3/uL Lymphocytes # 0.82 L (0.90-5.00) X 10*3/uL Creatinine 0.2 L (0.6-1.5) mg/dL BUN/Creatinine Ratio 82.00 H (12.00-20.00) Ratio Glucose 160 H (70-110) mg/dL POC Glucose (mg/dL) 191 H (70-110) mg/dL Calcium 7.7 L (8.7-10.3) mg/dL Total Bilirubin <0.2 L (0.3-1.2) mg/dL Alkaline Phosphatase 215 H (41-126) U/L Total Protein 4.1 L (6.2-8.2) g/dL Albumin 2.4 L (3.8-4.9) g/dL Albumin/Globulin Ratio 1.41 L (1.60-3.17) Ratio Urine Glucose (UA) (Negative) Urine Blood (Negative) Ur Leukocyte Esterase (Negative) Urine RBC (0-5) /hpf Urine Mucus (None) /hpf Urine Yeast (Budding) (None) /hpf 04/11/24 Range/Units 11:08 WBC (4.50-10.00) X 10*3/uL RBC (4.10-5.20) X 10*6/uL Hgb (12.0-15.0) g/dL Hct (37.2-46.3) % MCV (80.0-97.0) FL MCHC (32.0-37.0) g/dL RDW (11.5-14.5) % Plt Count (140-440) X 10*3/uL Immature Gran # (0.00-0.04) X 10*3/uL Neutrophils # (1.80-7.70) X 10*3/uL Lymphocytes # (0.90-5.00) X 10*3/uL Creatinine (0.6-1.5) mg/dL BUN/Creatinine Ratio (12.00-20.00) Ratio Glucose (70-110) mg/dL POC Glucose (mg/dL) 176 H (70-110) mg/dL Calcium (8.7-10.3) mg/dL Total Bilirubin (0.3-1.2) mg/dL Alkaline Phosphatase (41-126) U/L Total Protein (6.2-8.2) g/dL Albumin (3.8-4.9) g/dL Albumin/Globulin Ratio (1.60-3.17) Ratio Urine Glucose (UA) (Negative) Urine Blood (Negative) Ur Leukocyte Esterase (Negative) Urine RBC (0-5) /hpf Urine Mucus (None) /hpf Urine Yeast (Budding) (None) /hpf Microbiology - Last 24 Hours (Table) 04/07/24 12:11 Blood Culture - Preliminary Blood Assessment and Plan Assessment: Acute hypoxic respiratory failure requiring BiPAP support, secondary to acute multifocal pneumonia, the patient developed new infiltration of the lungs more extensive on the left, consider the possibility of healthcare associated pneumonia. The patient is improved and stable. On 3 L of oxygen by nasal c annula. Chest x-ray findings are showing stable bilateral pulmonary consolidation left more than right. Remains on Omnicef. CT scan of the chest from 04/07/2024 revealed bibasilar infiltrates and pleural effusions left greater than right. Findings are evident of postinflammatory changes from her previous pneumonia. Previous history of multifocal pneumonia, secondary to Haemophilus influenzae, d iagnosed via bronchoscopy and BAL Urinary tract infection secondary to Enterococcus faecium VRE and Sarah glabrata. Remains on daptomycin, Omnicef, Flagyl, voriconazole COPD Known history of a right upper lobe pulmonary embolism, CT angiogram this admission on March 29, 2024 revealed no evidence of pulmonary embolism. Resolution of previously seen pulmonary embolism. History of systemic candidemia, completed a course of Diflucan. The patient was also being given voriconazole on outpatient basis. Most recent positive blood culture was done 02/11/2024. The patient also had Sarah in her urine on 01/29/2024) and Sarah glabrata in the sputum on 03/14/2024. Chronic urinary retention with indwelling Horn catheter, rule out recurrent infection History of constipation status post decompressive sigmoidoscopy during her previous hospitalization Type 2 diabetes, maintained on insulin Benign essential hypertension Dyslipidemia Severe protein calorie malnutrition Chronic unstageable decubitus pressure ulcer and multiple skin ulcerations involving both lower extremities Plan: The patient was seen and evaluated Medications and labs reviewed Continue the current treatment plan Titrate down the FiO2 as tolerated Plan is to return to [facility] at discharge I have personally seen and examined the patient, performed the documentation and the assessment and plan as written. Number of minutes spent on the visit: 10.
--- NOTE | 2024-04-11 15:54 | P.PN ---
Subjective Progress Note Date: 04/11/24 Principal diagnosis: Reason for follow-up is pneumonia Patient is a 54-year-old female with a past medical history significant for diabetes mellitus hypertension hyperlipidemia PE COPD had recent admission to the hospital treated for pneumonia sputum was positive for H aemophilus influenzae received IV and oral antibioticssent to the skilled nursing brought back to the hospital worsening respiratory status and concern for possible pneumonia requiring admission in the ICU. On today's evaluation that is 04/11/2024,the patient remains to be afebrile, patient is on 2 L nasal cannula supplemental oxygen and denies any shortness of breath no chest pain or any worsening cough.Patient denies having any nausea or vomiting, no abdominal pain and no diarrhea has been reported, denies any worsening pain to the sacral wound. Patient white count is down to 14.46 creatinine 0 point 2 repeat UA was mildly positive Objective - Vital Signs Vital signs: Vital Signs Temp 98.4 F 04/11/24 13:38 Pulse 88 04/11/24 15:43 Resp 20 04/11/24 13:38 BP 104/60 04/11/24 13:38 Pulse Ox 98 04/11/24 13:38 FiO2 50 04/03/24 01:06 Intake & Output 04/10/24 04/11/24 04/11/24 18:59 06:59 18:59 Intake Total 0 Output Total 725 500 475 Balance -725 -500 -475 Weight 67.8 kg Intake: Oral 0 Output: Urine 725 500 475 Other: Voiding Method Indwelling Catheter Indwelling Catheter Indwelling Catheter # Bowel Movements 0 2 - Exam GENERAL DESCRIPTION: Middle-age female lying in bed in no distress RESPIRATORY SYSTEM: Unlabored breathing , decreased breath sounds at bases HEART: S1 S2 regular rate and rhythm , ABDOMEN: Soft , no tenderness EXTREMITIES: No edema feet - Labs CBC & Chem 7: 04/11/24 05:10 04/11/24 05:10 Labs: Abnormal Lab Results - Last 24 Hours (Table) 04/10/24 04/10/24 04/10/24 Range/Units 16:22 19:00 20:49 WBC (4.50-10.00) X 10*3/uL RBC (4.10-5.20) X 10*6/uL Hgb (12.0-15.0) g/dL Hct (37.2-46.3) % MCV (80.0-97.0) FL MCHC (32.0-37.0) g/dL RDW (11.5-14.5) % Plt Count (140-440) X 10*3/uL Immature Gran # (0.00-0.04) X 10*3/uL Neutrophils # (1.80-7.70) X 10*3/uL Lymphocytes # (0.90-5.00) X 10*3/uL Creatinine (0.6-1.5) mg/dL BUN/Creatinine Ratio (12.00-20.00) Ratio Glucose (70-110) mg/dL POC Glucose (mg/dL) 260 H 354 H (70-110) mg/dL Calcium (8.7-10.3) mg/dL Total Bilirubin (0.3-1.2) mg/dL Alkaline Phosphatase (41-126) U/L Total Protein (6.2-8.2) g/dL Albumin (3.8-4.9) g/dL Albumin/Globulin Ratio (1.60-3.17) Ratio Urine Glucose (UA) 4+ H (Negative) Urine Blood Trace H (Negative) Ur Leukocyte Esterase Moderate H (Negative) Urine RBC 18 H (0-5) /hpf Urine Mucus Rare H (None) /hpf Urine Yeast (Budding) Many H (None) /hpf 04/11/24 04/11/24 04/11/24 Range/Units 05:10 05:10 06:07 WBC 14.46 H (4.50-10.00) X 10*3/uL RBC 3.14 L (4.10-5.20) X 10*6/uL Hgb 9.7 L (12.0-15.0) g/dL Hct 30.5 L (37.2-46.3) % MCV 97.1 H (80.0-97.0) FL MCHC 31.8 L (32.0-37.0) g/dL RDW 17.0 H (11.5-14.5) % Plt Count 463 H (140-440) X 10*3/uL Immature Gran # 0.13 H (0.00-0.04) X 10*3/uL Neutrophils # 12.79 H (1.80-7.70) X 10*3/uL Lymphocytes # 0.82 L (0.90-5.00) X 10*3/uL Creatinine 0.2 L (0.6-1.5) mg/dL BUN/Creatinine Ratio 82.00 H (12.00-20.00) Ratio Glucose 160 H (70-110) mg/dL POC Glucose (mg/dL) 191 H (70-110) mg/dL Calcium 7.7 L (8.7-10.3) mg/dL Total Bilirubin <0.2 L (0.3-1.2) mg/dL Alkaline Phosphatase 215 H (41-126) U/L Total Protein 4.1 L (6.2-8.2) g/dL Albumin 2.4 L (3.8-4.9) g/dL Albumin/Globulin Ratio 1.41 L (1.60-3.17) Ratio Urine Glucose (UA) (Negative) Urine Blood (Negative) Ur Leukocyte Esterase (Negative) Urine RBC (0-5) /hpf Urine Mucus (None) /hpf Urine Yeast (Budding) (None) /hpf 04/11/24 Range/Units 11:08 WBC (4.50-10.00) X 10*3/uL RBC (4.10-5.20) X 10*6/uL Hgb (12.0-15.0) g/dL Hct (37.2-46.3) % MCV (80.0-97.0) FL MCHC (32.0-37.0) g/dL RDW (11.5-14.5) % Plt Count (140-440) X 10*3/uL Immature Gran # (0.00-0.04) X 10*3/uL Neutrophils # (1.80-7.70) X 10*3/uL Lymphocytes # (0.90-5.00) X 10*3/uL Creatinine (0.6-1.5) mg/dL BUN/Creatinine Ratio (12.00-20.00) Ratio Glucose (70-110) mg/dL POC Glucose (mg/dL) 176 H (70-110) mg/dL Calcium (8.7-10.3) mg/dL Total Bilirubin (0.3-1.2) mg/dL Alkaline Phosphatase (41-126) U/L Total Protein (6.2-8.2) g/dL Albumin (3.8-4.9) g/dL Albumin/Globulin Ratio (1.60-3.17) Ratio Urine Glucose (UA) (Negative) Urine Blood (Negative) Ur Leukocyte Esterase (Negative) Urine RBC (0-5) /hpf Urine Mucus (None) /hpf Urine Yeast (Budding) (None) /hpf Microbiology - Last 24 Hours (Table) 04/07/24 12:11 Blood Culture - Preliminary Blood Assessment and Plan (1) Leukocytosis Current Visit: Yes Status: Acute Code(s): D72.829 - ELEVATED WHITE BLOOD CELL COUNT, UNSPECIFIED SNOMED Code(s): 019638858 (2) Pneumonia Current Visit: Yes Status: Acute Code(s): J18.9 - PNEUMONIA, UNSPECIFIED ORGANISM SNOMED Code(s): 134375418 (3) VRE (vancomycin resistant enterococcus) culture positive Current Visit: Yes Status: Acute Code(s): Z22.39 - CARRIER OF OTHER SPECIFIED BACTERIAL DISEASES SNOMED Code(s): 027796881 (4) Urinary tract infection Current Visit: No Status: Acute Code(s): N39.0 - URINARY TRACT INFECTION, SITE NOT SPECIFIED SNOMED Code(s): 22772854 Plan: 1patient was in the hospital with sepsis in this patient who did have a leukocytosis tachycardia hypoxemia admitted currently for SIRS/sepsis source likely pneumonia concern for possible gram-negative versus gram-positive recently treated for Haemophilus influenzae pneumonia 2 blood culture remains to be negative, urine for Legionella antigen currently pending procalcitonin was mildly elevated 0.57 on the patient nasal screen MRSA has been negative 3-patient remains to be afebrile patient, stool for C. difficile is negative to continue Questran as needed 4patient did have worsening of her sacral pressure ulcer with significant mount of slough necrotic tissue for which general surgery has been consulted and apparently did have bedside debridement done this morning per the patient 5-patient urine culture Sarah glabrata and VRE , patient white count is trending down, continue with the daptomycin Omnicef and voriconazole Dictation was produced using [employer] dictation software. please excuse any grammatical, word or spelling errors. Time with Patient: Less than 30
[2024-04-11 17:06] LABS: Glucose,Whole Blood 293 mg/dL (70-110)
[2024-04-11 20:59] LABS: Glucose,Whole Blood 379 mg/dL (70-110)
[2024-04-12 06:08] LABS: Glucose,Whole Blood 310 mg/dL (70-110)
[2024-04-12 08:44] LABS: Basophils # (A) 0.04 X 10*3/uL (0.00-0.10); Basophils % (A) 0.2 %; Eosinophils # (A) 0.04 X 10*3/uL (0.04-0.35); Eosinophils % (A) 0.2 %; HCT 28.8 % (37.2-46.3); HGB 9.2 g/dL (12.0-15.0); Lymphocytes # (A) 0.71 X 10*3/uL (0.90-5.00); Lymphocytes % (A) 3.8 %; MCH 30.7 pg (27.0-32.0); MCHC 31.9 g/dL (32.0-37.0); Monocytes # (A) 0.56 X 10*3/uL (0.20-1.00); NRBC Per 100 WBC 0.03 X 10*3/uL (0.00-0.01); Neutrophils # (A) 17.35 X 10*3/uL (1.80-7.70); Platelet Count 434 X 10*3/uL (140-440); RDW 17.1 % (11.5-14.5); WBC 18.85 X 10*3/uL (4.50-10.00)
[2024-04-12 11:35] LABS: Glucose,Whole Blood 362 mg/dL (70-110)
[2024-04-12 11:42] LABS: ALT 20 U/L (8-44); AST 17 U/L (13-35); Albumin 2.4 g/dL (3.8-4.9); Alkaline Phosphatase 238 U/L (41-126); BUN/Creat Ratio 63.67 Ratio (12.00-20.00); Blood Urea Nitrogen 19.1 mg/dL (9.0-27.0); Calcium 7.8 mg/dL (8.7-10.3); Carbon Dioxide 23.7 mmol/L (21.6-31.8); Chloride 106 mmol/L (96-109); Globulin 1.6 g/dL (1.6-3.3); Glucose 282 mg/dL (70-110); Potassium 4.3 mmol/L (3.5-5.5); Sodium 143 mmol/L (135-145); Total Bilirubin <0.2 mg/dL (0.3-1.2)
[2024-04-12] MEDS: NITROFURANTOIN MONOHYD/M-CRYST 100 MG CAP PO SCH (15:08)
--- NOTE | 2024-04-12 15:42 | P.PN ---
Subjective Progress Note Date: 04/12/24 64-year-old female patient, known to us, the patient was treated in the hospital when she had a prolonged hospitalization from 01/30/2024 and she was discharged on 03/24/2024 to be readmitted to hospital on 03/29/2024 with worsening shortness of breath and respiratory failure. The patient was seen in emergency department. The patient is a significant respiratory distress and the patient is currently on a BiPAP at a pressure of 12 over 5 cm of water and FiO2 of 50%. Her current respiratory rate is in the low 30s. Blood pressure is stable. The patient is extremely lethargic, weak, has chronic wounds in her lower extremities bilaterally, has an indwelling Horn catheter which was present at the half-way she has not she is nonambulatory status in right foot is extremely cloudy with significant amount of debris's and some purulence. Chest x-ray was emergency department and it shows an extensive area of consolidation involving the left lung along with some small bilateral pleural effusions and background COPD. The patient was given Zithromax and Zosyn. ICU consultation was requested This patient is known to have advanced COPD. During her last hospitalization, the patient was in acute hypoxic respiratory failure requiring intubation mechanical ventilation and he was ultimately extubated on 03/17/2024. During the course of her illness, she was bronchoscope and the sputum sample on 03/13/2024 and 03/14/2024 was positive for haemophilus influenza and she was treated accordingly. She was also diagnosed having a right upper lobe pulmonary embolism treated with anticoagulation with Eliquis. During the course of her illness, the patient had systemic candidemia and the blood cultures was on 02/11/2024 was positive for Sarah albicans and the bronchial washings also showed Sarah glabrata. Urine culture was also positive for Sarah. The patient was given IV Diflucan and she completed the course of antifungal treatment. Her echocardiogram showed no evidence of any vegetation and her left-ventricular ejection fraction was essentially within normal limits. Infection and a hyperdynamic heart with an EF of around 70 to 75%. No significant valvular abnormalities. Her current labs show a white cell count of 22.3 which has been elevated since her discharge from the hospital, hemoglobin 11.7 and platelet count is 407, serum bicarbonate 30 and sodium levels of 134, BUN is 22 with a creatinine of 0.25. LFTs are within normal limits. Most recent procalcitonin level from 03/24/2024 was at 0.08. Blood cultures have been sent. On 03/30/2024, the patient was taken off the BiPAP and the patient has been transitioned to oxygen at 3 L/min nasal cannula. No new complaints. Chest x- ray findings are essentially unchanged. The patient has stable right basilar and left midlung consolidation and bilateral pleural effusions. Nevertheless, she seems to be much more comfortable. She continues to have a congested cough and she is on a broad-spectrum antibiotics and the patient is currently on a combination of cefepime, vancomycin and voriconazole. Awaiting follow-up cul tures on this patient. The white cell count is down to 18 with a hemoglobin 10.3 and a platelet count of 350. Electrolytes are stable with a BUN of 25 and a creatinine of 0.2. Procalcitonin level is at 0.57. She is weak yet awake and alert. Communicating. She has chronic wounds in lower extremities and some ongoing +1 edema lower extremities bilaterally. Moving all 4 extremities other than limitation. No altered mentation at this point in time. On 03/31/2024, the patient is stable. The patient remains on 40 Suboxone by nasal cannula. The patient does receive with IV Lasix and she is in a negative fluid balance of 1.8 L over the past 24 hours. Meanwhile, chest x-ray from today shows stable bilateral pulm infiltrates. The patient remains on the same antibiotic coverage includes cefepime, vancomycin and voriconazole. Blood cultures are still negative. The white cell count of 19 with a hemoglobin 10.7 and platelet count of 383. BUN is 23 with a creatinine 0.3. Sodium level is at 137. The patient continues to have wound care to lower extremities. Awake and alert and communicating. Remains on bronchodilators. Remains on steroids. Remains on Levemir insulin for blood sugar control at 15 units at bedtime and a sliding scale coverage. No other significant events overnight. The patient is being seen for a follow-up. The patient is doing well. No specific complaints. Continues to diurese. Blood cultures are negative the patient remains on the same antibiotic coverage. The white cell count from today is at 23 with a hemoglobin of 10 and a platelet count of 334. Electrolytes are all stable with a BUN of 19 and a creatinine of 0.3. Sodium levels at 141. No other significant events overnight. She is currently on oxygen at 4 L/min nasal cannula. 04/02/2024, the patient is doing well. She continues B12 with Lasix and the patient is -2.9 L over the past 24 hours. Edema is improving. Meanwhile, repeat chest x-ray was done and the pulmonary findings are essentially stable. The white cell count from yesterday was 23 and awaiting follow-up labs from to day. Renal function is also stable from yesterday. The patient remains on IV Lasix. The patient remains on cefepime vancomycin and voriconazole. Cultures are negative thus far. No interval worsening shortness of breath. No new findings or new complaints for now. She remains stable on 4 L of oxygen by nasal cannula. The patient is seen today April 03, 2024 in follow-up on the regular medical floor. She is currently sitting up in bed. Awake and alert in no acute distress. She is maintaining O2 saturations in the 90s on 4 L/min per nasal cannula. She has been refusing BiPAP support at night. She has been refusing to get up out of bed. She does have a wound on her coccyx. She is having some issues with diarrhea. Chest x-ray reveals left perihilar and right lower lobe infiltrates. She remains on cefepime and voriconazole. She denies any shortness of breath, cough or congestion. No fever or chills. 7. Bicarb 30. BUN 23. Creatinine 0.19. Glucose 84. She is continued on inhalations, Pulmicort and Perforomist inhalations, Solu-Medrol. The patient is seen today April 04, 2024 in follow-up on the regular medical floor. She is awake and alert in no acute distress. She continues to be reluctant to move about or get up out of bed or even have staff change her when she has had a bowel movement. She does have an unstageable ulcer on her sacrum and multiple nonhealing ulcers of the bilateral lower extremities with fat layer exposure that is being followed by wound center's nurse practitioner. Glucose 90. She is continued on DuoNeb inhalations, Pulmicort and Perforomist inhalations, prednisone. The patient is seen today April 05, 2024 in follow-up on the regular medical floor. She is sitting up in bed. Awake and alert in no acute distress. Maintaining O2 saturations in the 90s on 4 L/min per nasal cannula. She is continued on DuoNeb inhalations, Symbicort, prednisone taper. Currently on Omnicef and voriconazole. Remains on diuretics. Glucose 205. C. difficile screen was negative. The patient is seen today April 06, 2024 in follow-up on the regular medical floor. She is awake and alert in no acute distress. Resting comfortably in bed. Denies any worsening shortness of breath, cough or congestion. Maintaining O2 saturations in the 90s up to 100% on 4 L/min per nasal cannula. She is afebrile. Hemodynamically stable. She is being followed by the wound center for an unstageable pressure ulcer on her sacrum and lower extremity ulcerations and inflammation. And voriconazole. She remains on DuoNeb inhalations, Symbicort, prednisone taper. Lovenox for DVT prophylaxis. Remains on oral diuretics. Globin 10.4. Platelets 307. Sodium 138. Potassium 3.6. Bicarb 29. BUN 16. Creatinine 0.2. Glucose 103. The patient is seen today April 07, 2024 in follow-up on the regular medical floor. She is resting comfortably in bed. Awake and alert in no acute distress. Denies any worsening shortness of breath, cough or congestion. She i s maintaining good O2 saturations in the upper 90s on 3 L/min per nasal cannula. She has been afebrile. Hemodynamically stable. White count 22.3. Hemoglobin 10.0. Platelets 337. Sodium 137. Potassium 3.9. Bicarb 27. BUN 17. Creatinine 0.2. Glucose 304. AST 17. ALT 21. She is continued on DuoNeb inhalations, Symbicort. Lovenox for DVT prophylaxis. Prednisone taper. Antibiotics in the form of Omnicef. Remains on oral diuretics. Currently in a -1.1 L balance. The patient is seen today April 08, 2024 in follow-up on the regular medical floor. She is awake and alert in no acute distress. She is resting comfortably in bed. She denies any worsening shortness of breath, cough or congestion. A CT scan of the chest abdomen and pelvis was performed yesterday. Lung findings revealed small lower lobe infiltrates with a small right effusion and moderate left effusion. No masses. No lymphadenopathy. There is mild to moderate ascites. Marked anasarca. Nonhealed right pubic bone fracture. Healed fractures of the bilateral inferior pubic rami. Orthopedics had been consulted yesterday. Glucose 251. She is stable on 3 L nasal cannula with O2 saturation of 98%. Afebrile. Hemodynamically stable. She remains on DuoNeb inhalations, Symbicort, prednisone. Lovenox for DVT prophylaxis. Antibiotics in the form of Omnicef. Blood and urine cultures negative. The patient is seen today April 09, 2024 in follow-up on the regular medical floor. She is resting comfortably in bed. Awake and alert in no acute distress. She is maintaining good O2 saturations in the high 90s on 2 L/min per nasal cannula. She is afebrile. Hemodynamically stable. She remains on DuoNeb inhalations, Symbicort, prednisone. Lovenox for DVT prophylaxis. Antibiotics in the form of Omnicef. Blood and urine cultures negative. White count 18.4. Hemoglobin 9.6. Platelets 411. Sodium 138. Potassium 3.5. Bicarb 27. BUN 19. Creatinine 0.3. Glucose 287. The patient is seen today April 10, 2024 in follow-up on the regular medical floor. She is awake and alert in no acute distress. Resting comfortably in bed. Denies any worsening shortness of breath, cough or congestion. She is maintaining O2 saturation in the 90s on 2 L/min per nasal cannula. Afebrile. Hemodynamically stable. Urine culture was positive for Enterococcus faecium VRE and Sarah glabrata. She remains on Omnicef, Flagyl, voriconazole. Continued on bronchodilators and prednisone taper. Glucose 103. The patient is seen today April 11, 2024 in follow-up on the regular medical floor. She is resting in bed. Awake and alert in no acute distress. She denies any worsening shortness of breath, cough or congestion. She is maintaining good O2 saturations in the 90s on 2 L/min per nasal cannula. She h as normal saline at 70 mL/h. She remains on Flagyl, daptomycin, Omnicef. She is continued on DuoNeb ventilations, Symbicort, prednisone. Remains on oral diuretics. Lovenox. White count 14.4. Hemoglobin 9.7. Platelets 463. Sodium 143. Potassium 3.7. Bicarb 26. BUN 16. Creatinine 0.2. Glucose 160. The patient is seen again today April 12, 2024 in follow-up on the regular medical floor. She is resting comfortably in bed. Denies any shortness of breath, cough or congestion. Continues to maintain good O2 saturations in the 90s on 2 L/min per nasal cannula. She is continued on DuoNeb inhalations, Symbicort, prednisone. Remains on oral diuretics. Lovenox for DVT prophylaxis. Urine culture from April 07, 2024 was positive for Enterococcus faecium VRE. She is currently on Omnicef and Flagyl. White count 18.8. Hemoglobin 9.2. Platelets 434. Sodium 143. Potassium 4.3. Bicarb 24. BUN 19. Creatinine 0.3. Glucose 282. Objective - Vital Signs Vital signs: Vital Signs Temp 98.4 F 04/12/24 13:45 Pulse 98 04/12/24 13:45 Resp 17 04/12/24 13:45 BP 126/68 04/12/24 13:45 Pulse Ox 97 04/12/24 13:45 FiO2 50 04/03/24 01:06 Intake & Output 04/11/24 04/12/24 04/12/24 18:59 06:59 18:59 Output Total 475 875 Balance -475 -875 Output: Urine 475 875 Other: Voiding Method Indwelling Catheter Indwelling Catheter Indwelling Catheter # Bowel Movements 2 1 - Exam GENERAL EXAM: Awake, pleasant 64-year-old female, resting in bed, on 2 L of oxygen by nasal cannula. HEAD: Normocephalic and atraumatic EYES: Normal reaction of pupils, equal size. NOSE: Clear with pink turbinates. THROAT: No erythema or exudates. NECK: No masses, no JVD. CHEST: No chest wall deformity. LUNGS: Diminished breath sounds at the bases with few scattered rhonchi and crackles. CVS: Distant S1-S2, no S3 gallop, no murmur. ABDOMEN: Soft nontender no rebound no guarding. Bowel sounds. SKIN: Unstageable pressure injury on the sacrum. Bilateral lower extremity wounds. Multiple superficial ulcerations noted in both lower extremities. No active drainage. Currently with Flaco wraps. Pulses in lower extremities present. There are some edema in her ankles bilaterally and some edema in the upper extremities bilaterally. CENTRAL NERVOUS SYSTEM: Alert and oriented x 3, no gross focal neurologic deficit, moving all 4 extremities other than limitation. EXTREMITIES: Wraps to the bilateral lower extremities. Pulses are intact. - Labs CBC & Chem 7: 04/12/24 04:06 04/12/24 04:06 Labs: Abnormal Lab Results - Last 24 Hours (Table) 04/11/24 04/11/24 04/12/24 Range/Units 17:02 20:57 04:06 WBC 18.85 H (4.50-10.00) X 10*3/uL RBC 3.00 L (4.10-5.20) X 10*6/uL Hgb 9.2 L (12.0-15.0) g/dL Hct 28.8 L (37.2-46.3) % MCHC 31.9 L (32.0-37.0) g/dL RDW 17.1 H (11.5-14.5) % Immature Gran # 0.15 H (0.00-0.04) X 10*3/uL Neutrophils # 17.35 H (1.80-7.70) X 10*3/uL Lymphocytes # 0.71 L (0.90-5.00) X 10*3/uL NRBC/100 WBC Diff 0.03 H (0.00-0.01) X 10*3/uL Anion Gap (4.00-12.00) mmol/L Creatinine (0.6-1.5) mg/dL BUN/Creatinine Ratio (12.00-20.00) Ratio Glucose (70-110) mg/dL POC Glucose (mg/dL) 293 H 379 H (70-110) mg/dL Calcium (8.7-10.3) mg/dL Total Bilirubin (0.3-1.2) mg/dL Alkaline Phosphatase (41-126) U/L Total Protein (6.2-8.2) g/dL Albumin (3.8-4.9) g/dL Albumin/Globulin Ratio (1.60-3.17) Ratio 04/12/24 04/12/24 04/12/24 Range/Units 04:06 06:08 11:34 WBC (4.50-10.00) X 10*3/uL RBC (4.10-5.20) X 10*6/uL Hgb (12.0-15.0) g/dL Hct (37.2-46.3) % MCHC (32.0-37.0) g/dL RDW (11.5-14.5) % Immature Gran # (0.00-0.04) X 10*3/uL Neutrophils # (1.80-7.70) X 10*3/uL Lymphocytes # (0.90-5.00) X 10*3/uL NRBC/100 WBC Diff (0.00-0.01) X 10*3/uL Anion Gap 13.30 H (4.00-12.00) mmol/L Creatinine 0.3 L (0.6-1.5) mg/dL BUN/Creatinine Ratio 63.67 H (12.00-20.00) Ratio Glucose 282 H (70-110) mg/dL POC Glucose (mg/dL) 310 H 362 H (70-110) mg/dL Calcium 7.8 L (8.7-10.3) mg/dL Total Bilirubin <0.2 L (0.3-1.2) mg/dL Alkaline Phosphatase 238 H (41-126) U/L Total Protein 4.0 L (6.2-8.2) g/dL Albumin 2.4 L (3.8-4.9) g/dL Albumin/Globulin Ratio 1.50 L (1.60-3.17) Ratio Assessment and Plan Assessment: Acute hypoxic respiratory failure requiring BiPAP support, secondary to acute multifocal pneumonia, the patient developed new infiltration of the lungs more extensive on the left, consider the possibility of healthcare associated pneumonia. The patient is improved and stable. On 3 L of oxygen by nasal cannula. Chest x-ray findings are showing stable bilateral pulmonary consolidation left more than right. Remains on Omnicef. CT scan of the chest from 04/07/2024 revealed bibasilar infiltrates and pleural effusions left greater than right. Findings are evident of postinflammatory changes from her previous pneumonia Previous history of multifocal pneumonia, secondary to Haemophilus influenzae, diagnosed via bronchoscopy and BAL Urinary tract infection secondary to Enterococcus faecium VRE and Sarah glabrata. Remains on Omnicef, Flagyl COPD Known history of a right upper lobe pulmonary embolism, CT angiogram this admission on March 29, 2024 revealed no evidence of pulmonary embolism. Resolution of previously seen pulmonary embolism. History of systemic candidemia, completed a course of Diflucan. The patient was also being given voriconazole on outpatient basis. Most recent positive blood culture was done 02/11/2024. The patient also had Sarah in her urine on 01/29/2024) and Sarah glabrata in the sputum on 03/14/2024. Chronic urinary retention with indwelling Horn catheter, rule out recurrent i nfection History of constipation status post decompressive sigmoidoscopy during her previous hospitalization Type 2 diabetes, maintained on insulin Benign essential hypertension Dyslipidemia Severe protein calorie malnutrition Chronic unstageable decubitus pressure ulcer and multiple skin ulcerations involving both lower extremities Plan: The patient was seen and evaluated Medications and labs reviewed Continue the current treatment plan Antibiotics per ID service Plan is to return to [facility] at discharge I have personally seen and examined the patient, performed the documentation and the assessment and plan as written. Number of minutes spent on the visit: 10.
[2024-04-12 16:23] LABS: Glucose,Whole Blood 314 mg/dL (70-110)
[2024-04-12 21:18] LABS: Glucose,Whole Blood 203 mg/dL (70-110)
[2024-04-13 05:54] LABS: Glucose,Whole Blood 157 mg/dL (70-110)
--- NOTE | 2024-04-13 07:51 | P.PN ---
Subjective Progress Note Date: 04/12/24 Principal diagnosis: Reason for follow-up is pneumonia Patient is a 54-year-old female with a past medical history significant for diabetes mellitus hypertension hyperlipidemia PE COPD had recent admission to the hospital treated for pneumonia sputum was positive for H aemophilus influenzae received IV and oral antibioticssent to the residential brought back to the hospital worsening respiratory status and concern for possible pneumonia requiring admission in the ICU. On today's evaluation that is 04/12/2024, the patient continues to be afebrile, the patient is on 1 L nasal oxygen and breathing comfortably, the Pt denies having any chest pain or cough, the patient denies having any abdominal pain no vomiting or any worsening diarrhea has been reported by the nursing staff, patient mention feeling better. Patient white count is 18.85 creatinine 0.3 Objective - Vital Signs Vital signs: Vital Signs Temp 98.5 F 04/12/24 06:59 Pulse 92 04/12/24 09:10 Resp 16 04/12/24 06:59 BP 122/72 04/12/24 06:59 Pulse Ox 91 L 04/12/24 09:03 FiO2 50 04/03/24 01:06 Intake & Output 04/11/24 04/12/24 04/12/24 18:59 06:59 18:59 Output Total 475 875 Balance -475 -875 Output: Urine 475 875 Other: Voiding Method Indwelling Catheter Indwelling Catheter # Bowel Movements 2 1 - Exam GENERAL DESCRIPTION: Middle-age female lying in bed in no distress RESPIRATORY SYSTEM: Unlabored breathing , decreased breath sounds at bases HEART: S1 S2 regular rate and rhythm , ABDOMEN: Soft , no tenderness EXTREMITIES: No edema feet - Labs CBC & Chem 7: 04/12/24 04:06 04/12/24 04:06 Labs: Abnormal Lab Results - Last 24 Hours (Table) 04/11/24 04/11/24 04/12/24 Range/Units 17:02 20:57 04:06 WBC 18.85 H (4.50-10.00) X 10*3/uL RBC 3.00 L (4.10-5.20) X 10*6/uL Hgb 9.2 L (12.0-15.0) g/dL Hct 28.8 L (37.2-46.3) % MCHC 31.9 L (32.0-37.0) g/dL RDW 17.1 H (11.5-14.5) % Immature Gran # 0.15 H (0.00-0.04) X 10*3/uL Neutrophils # 17.35 H (1.80-7.70) X 10*3/uL Lymphocytes # 0.71 L (0.90-5.00) X 10*3/uL NRBC/100 WBC Diff 0.03 H (0.00-0.01) X 10*3/uL Anion Gap (4.00-12.00) mmol/L Creatinine (0.6-1.5) mg/dL BUN/Creatinine Ratio (12.00-20.00) Ratio Glucose (70-110) mg/dL POC Glucose (mg/dL) 293 H 379 H (70-110) mg/dL Calcium (8.7-10.3) mg/dL Total Bilirubin (0.3-1.2) mg/dL Alkaline Phosphatase (41-126) U/L Total Protein (6.2-8.2) g/dL Albumin (3.8-4.9) g/dL Albumin/Globulin Ratio (1.60-3.17) Ratio 04/12/24 04/12/24 04/12/24 Range/Units 04:06 06:08 11:34 WBC (4.50-10.00) X 10*3/uL RBC (4.10-5.20) X 10*6/uL Hgb (12.0-15.0) g/dL Hct (37.2-46.3) % MCHC (32.0-37.0) g/dL RDW (11.5-14.5) % Immature Gran # (0.00-0.04) X 10*3/uL Neutrophils # (1.80-7.70) X 10*3/uL Lymphocytes # (0.90-5.00) X 10*3/uL NRBC/100 WBC Diff (0.00-0.01) X 10*3/uL Anion Gap 13.30 H (4.00-12.00) mmol/L Creatinine 0.3 L (0.6-1.5) mg/dL BUN/Creatinine Ratio 63.67 H (12.00-20.00) Ratio Glucose 282 H (70-110) mg/dL POC Glucose (mg/dL) 310 H 362 H (70-110) mg/dL Calcium 7.8 L (8.7-10.3) mg/dL Total Bilirubin <0.2 L (0.3-1.2) mg/dL Alkaline Phosphatase 238 H (41-126) U/L Total Protein 4.0 L (6.2-8.2) g/dL Albumin 2.4 L (3.8-4.9) g/dL Albumin/Globulin Ratio 1.50 L (1.60-3.17) Ratio Assessment and Plan (1) Leukocytosis Current Visit: Yes Status: Acute Code(s): D72.829 - ELEVATED WHITE BLOOD CELL COUNT, UNSPECIFIED SNOMED Code(s): 638068445 (2) Pneumonia Current Visit: Yes Status: Acute Code(s): J18.9 - PNEUMONIA, UNSPECIFIED ORGANISM SNOMED Code(s): 338636068 (3) VRE (vancomycin resistant enterococcus) culture positive Current Visit: Yes Status: Acute Code(s): Z22.39 - CARRIER OF OTHER SPECIFIED BACTERIAL DISEASES SNOMED Code(s): 076910209 (4) Urinary tract infection Current Visit: No Status: Acute Code(s): N39.0 - URINARY TRACT INFECTION, SITE NOT SPECIFIED SNOMED Code(s): 39722068 Plan: 1patient was in the hospital with sepsis in this patient who did have a leukocytosis tachycardia hypoxemia admitted currently for SIRS/sepsis source likely pneumonia concern for possible gram-negative versus gram-positive recently treated for Haemophilus influenzae pneumonia 2 blood culture remains to be negative, urine for Legionella antigen currently pending procalcitonin was mildly elevated 0.57 on the patient nasal screen MRSA has been negative 3-patient remains to be afebrile patient, stool for C. difficile is negative to continue Questran as needed 4patient did have worsening of her sacral pressure ulcer with significant mount of slough necrotic tissue for which general surgery has been consulted and appa rently did have bedside debridement done no cultures 5-patient urine culture Sarah glabrata and VRE , discussed with the micro lab in detail VRE is resistant to daptomycin that has not been reported we will discontinue daptomycin start the patient on Macrobid which has been reported sensitive and see clinical spots continue with the voriconazole while waiting for repeat urine culture to finalize Dictation was produced using [employer] dictation software. please excuse any grammatical, word or spelling errors. Time with Patient: Less than 30
[2024-04-13 11:29] LABS: Glucose,Whole Blood 148 mg/dL (70-110)
--- NOTE | 2024-04-13 13:17 | P.PN ---
Subjective Progress Note Date: 04/13/24 Principal diagnosis: Reason for follow-up is pneumonia Patient is a 54-year-old female with a past medical history significant for diabetes mellitus hypertension hyperlipidemia PE COPD had recent admission to the hospital treated for pneumonia sputum was positive for H aemophilus influenzae received IV and oral antibioticssent to the [facility] brought back to the hospital worsening respiratory status and concern for possible pneumonia requiring admission in the ICU. On today's evaluation that is 04/13/2024, Patient is afebrile patient is currently on room air and denies having any shortness of breath, the patient denies any chest pain or any significant cough, the patient denies any nausea vomiting did not have any abdominal pain and no diarrhea, denies pain to the sacral wound area. No new lab has been repeated today Objective - Vital Signs Vital signs: Vital Signs Temp 97.9 F 04/13/24 06:59 Pulse 101 H 04/13/24 11:52 Resp 17 04/13/24 07:45 BP 138/75 04/13/24 06:59 Pulse Ox 95 04/13/24 08:45 FiO2 50 04/03/24 01:06 Intake & Output 04/12/24 04/13/24 04/13/24 18:59 06:59 18:59 Output Total 1550 200 Balance -1550 -200 Output: Urine 1550 200 Other: Voiding Method Indwelling Catheter Indwelling Catheter # Bowel Movements 1 1 1 - Exam GENERAL DESCRIPTION: Middle-age female lying in bed in no distress RESPIRATORY SYSTEM: Unlabored breathing , decreased breath sounds at bases HEART: S1 S2 regular rate and rhythm , ABDOMEN: Soft , no tenderness EXTREMITIES: No edema feet - Labs CBC & Chem 7: 04/12/24 04:06 04/12/24 04:06 Labs: Abnormal Lab Results - Last 24 Hours (Table) 04/12/24 04/12/24 04/13/24 Range/Units 16:22 21:17 05:52 POC Glucose (mg/dL) 314 H 203 H 157 H (70-110) mg/dL 04/13/24 Range/Units 11:28 POC Glucose (mg/dL) 148 H (70-110) mg/dL Microbiology - Last 24 Hours (Table) 04/07/24 12:11 Blood Culture - Final Blood Assessment and Plan (1) Leukocytosis Current Visit: Yes Status: Acute Code(s): D72.829 - ELEVATED WHITE BLOOD CELL COUNT, UNSPECIFIED SNOMED Code(s): 116044905 (2) Pneumonia Current Visit: Yes Status: Acute Code(s): J18.9 - PNEUMONIA, UNSPECIFIED ORGANISM SNOMED Code(s): 193919224 (3) VRE (vancomycin resistant enterococcus) culture positive Current Visit: Yes Status: Acute Code(s): Z22.39 - CARRIER OF OTHER SPECIFIED BACTERIAL DISEASES SNOMED Code(s): 837736131 (4) Urinary tract infection Current Visit: No Status: Acute Code(s): N39.0 - URINARY TRACT INFECTION, SITE NOT SPECIFIED SNOMED Code(s): 53545765 Plan: 1patient was in the hospital with sepsis in this patient who did have a leukocytosis tachycardia hypoxemia admitted currently for SIRS/sepsis source lik dean pneumonia concern for possible gram-negative versus gram-positive recently treated for Haemophilus influenzae pneumonia 2 blood culture remains to be negative, urine for Legionella antigen currently pending procalcitonin was mildly elevated 0.57 on the patient nasal screen MRSA has been negative 3-patient remains to be afebrile patient, stool for C. difficile is negative to continue Questran as needed 4patient did have worsening of her sacral pressure ulcer with significant mount of slough necrotic tissue for which general surgery has been consulted and apparently did have bedside debridement done no cultures 5-patient urine culture Sarah glabrata and VRE , discussed with the micro lab in detail VRE is resistant to daptomycin patient to continue with the Macrobid and oral voriconazole x 7 days on discharge Dictation was produced using [employer] dictation software. please excuse any g rammatical, word or spelling errors. Time with Patient: Less than 30
--- NOTE | 2024-04-13 13:26 | P.PN ---
Subjective Progress Note Date: 04/13/24 Principal diagnosis: Respiratory failure. The patient is seen today April 06, 2024 in follow-up on the regular medical floor. She is awake and alert in no acute distress. Resting comfortably in bed. Denies any worsening shortness of breath, cough or congestion. Maintaining O2 saturations in the 90s up to 100% on 4 L/min per nasal cannula. She is afebrile. Hemodynamically stable. She is being followed by the wound center for an unstageable pressure ulcer on her sacrum and lower extremity ulcerations and inflammation. And voriconazole. She remains on DuoNeb inhalations, Symbicort, prednisone taper. Lovenox for DVT prophylaxis. Remains on oral diuretics. Globin 10.4. Platelets 307. Sodium 138. Potassium 3.6. Bicarb 29. BUN 16. Creatinine 0.2. Glucose 103. The patient is seen today April 07, 2024 in follow-up on the regular medical floor. She is resting comfortably in bed. Awake and alert in no acute distress. Denies any worsening shortness of breath, cough or congestion. She is maintaining good O2 saturations in the upper 90s on 3 L/min per nasal cannula. She has been afebrile. Hemodynamically stable. White count 22.3. Hemoglobin 10.0. Platelets 337. Sodium 137. Potassium 3.9. Bicarb 27. BUN 17. Creatinine 0.2. Glucose 304. AST 17. ALT 21. She is continued on DuoNeb inhalations, Symbicort. Lovenox for DVT prophylaxis. Prednisone taper. Antibiotics in the form of Omnicef. Remains on oral diuretics. Currently in a -1.1 L balance. The patient is seen today April 08, 2024 in follow-up on the regular medical floor. She is awake and alert in no acute distress. She is resting comfortably in bed. She denies any worsening shortness of breath, cough or congestion. A CT scan of the chest abdomen and pelvis was performed yesterday. Lung findings revealed small lower lobe infiltrates with a small right effusion and moderate left effusion. No masses. No lymphadenopathy. There is mild to moderate ascites. Marked anasarca. Nonhealed right pubic bone fracture. Healed fractures of the bilateral inferior pubic rami. Orthopedics had been consulted yesterday. Glucose 251. She is stable on 3 L nasal cannula with O2 saturation of 98%. Afebrile. Hemodynamically stable. She remains on DuoNeb inhalations, Symbicort, prednisone. Lovenox for DVT prophylaxis. Antibiotics in the form of Omnicef. Blood and urine cultures negative. The patient is seen today April 09, 2024 in follow-up on the regular medical f damián. She is resting comfortably in bed. Awake and alert in no acute distress. She is maintaining good O2 saturations in the high 90s on 2 L/min per nasal cannula. She is afebrile. Hemodynamically stable. She remains on DuoNeb inhalations, Symbicort, prednisone. Lovenox for DVT prophylaxis. Antibiotics in the form of Omnicef. Blood and urine cultures negative. White count 18.4. Hemoglobin 9.6. Platelets 411. Sodium 138. Potassium 3.5. Bicarb 27. BUN 19. Creatinine 0.3. Glucose 287. The patient is seen today April 10, 2024 in follow-up on the regular medical floor. She is awake and alert in no acute distress. Resting comfortably in bed. Denies any worsening shortness of breath, cough or congestion. She is maintaining O2 saturation in the 90s on 2 L/min per nasal cannula. Afebrile. Hemodynamically stable. Urine culture was positive for Enterococcus faecium VRE and Sarah glabrata. She remains on Omnicef, Flagyl, voriconazole. Continued on bronchodilators and prednisone taper. Glucose 103. The patient is seen today April 11, 2024 in follow-up on the regular medical floor. She is resting in bed. Awake and alert in no acute distress. She denies any worsening shortness of breath, cough or congestion. She is maintaining good O2 saturations in the 90s on 2 L/min per nasal cannula. She has normal saline at 70 mL/h. She remains on Flagyl, daptomycin, Omnicef. She is continued on DuoNeb ventilations, Symbicort, prednisone. Remains on oral diuretics. Lovenox. White count 14.4. Hemoglobin 9.7. Platelets 463. Sodium 143. Potassium 3.7. Bicarb 26. BUN 16. Creatinine 0.2. Glucose 160. The patient is seen again today April 12, 2024 in follow-up on the regular medical floor. She is resting comfortably in bed. Denies any shortness of breath, cough or congestion. Continues to maintain good O2 saturations in the 90s on 2 L/min per nasal cannula. She is continued on DuoNeb inhalations, Symbicort, prednisone. Remains on oral diuretics. Lovenox for DVT prophylaxis. Urine culture from April 07, 2024 was positive for Enterococcus faecium VRE. She is currently on Omnicef and Flagyl. White count 18.8. Hemoglobin 9.2. Platelets 434. Sodium 143. Potassium 4.3. Bicarb 24. BUN 19. Creatinine 0.3. Glucose 282. Progress note dated April 13, 2024. The patient is again seen today in room 469. She has not been in the hospital for 15 days. She is on room air. No IV fluids. She is getting Macrobid, Omnicef, and Flagyl. All these medications could be given as an outpatient. Clinically, she is very stable from the pulmonary standpoint. No new labs today other than a glucose of 148. Urine samples from April 07 show evidence of Sarah glabrata and Enterococcus faecium/VRE. Objective - Vital Signs Vital signs: Vital Signs Temp 97.9 F 04/13/24 06:59 Pulse 101 H 04/13/24 11:52 Resp 17 04/13/24 07:45 BP 138/75 04/13/24 06:59 Pulse Ox 95 04/13/24 08:45 FiO2 50 04/03/24 01:06 Intake & Output 04/12/24 04/13/24 04/13/24 18:59 06:59 18:59 Output Total 1550 200 Balance -1550 -200 Output: Urine 1550 200 Other: Voiding Method Indwelling Catheter Indwelling Catheter # Bowel Movements 1 1 1 - Exam No acute distress, oriented 3. Currently on room air. HEENT examination is grossly unremarkable. Mucous membranes are moist. No oral lesions. Neck supple. Full range of motion. No adenopathy thyromegaly or neck vein distention. Cardiovascular examination reveals regular rhythm rate. S1-S2 normal. No S3 or S4. No discernible murmur noted. Heart rate 94 bpm. Lungs reveal clear breath sounds. Breath sounds are equal bilaterally. No adv entitious lung sounds including wheezes rhonchi or crackles. Room air saturation is 95%. Abdomen soft bowel sounds are heard. No masses or tenderness. Extremities are intact. No cyanosis clubbing or edema. Skin is without rash or lesion. Neurologic examination is brief but nonfocal. - Labs CBC & Chem 7: 04/12/24 04:06 04/12/24 04:06 Labs: Abnormal Lab Results - Last 24 Hours (Table) 04/12/24 04/12/24 04/13/24 Range/Units 16:22 21:17 05:52 POC Glucose (mg/dL) 314 H 203 H 157 H (70-110) mg/dL 04/13/24 Range/Units 11:28 POC Glucose (mg/dL) 148 H (70-110) mg/dL Microbiology - Last 24 Hours (Table) 04/07/24 12:11 Blood Culture - Final Blood Assessment and Plan Assessment: Acute hypoxic respiratory failure requiring BiPAP support, secondary to acute multifocal pneumonia, the patient developed new infiltration of the lungs more extensive on the left, consider the possibility of healthcare associated pneumonia. The patient is improved and stable. On 3 L of oxygen by nasal cannula. Chest x-ray findings are showing stable bilateral pulmonary consolidation left more than right. Remains on Omnicef. CT scan of the chest from 04/07/2024 revealed bibasilar infiltrates and pleural effusions left greater than right. Findings are evident of postinflammatory changes from her previous pneumonia. Previous history of multifocal pneumonia, secondary to Haemophilus influenzae, diagnosed via bronchoscopy and BAL. Urinary tract infection secondary to Enterococcus faecium VRE and Sarah glabrata. Remains on Omnicef, Flagyl. COPD. Known history of a right upper lobe pulmonary embolism, CT angiogram this admission on March 29, 2024 revealed no evidence of pulmonary embolism. Res olution of previously seen pulmonary embolism.. History of systemic candidemia, completed a course of Diflucan. The patient was also being given voriconazole on outpatient basis. Most recent positive blood culture was done 02/11/2024. The patient also had Sarah in her urine on 01/29/2024) and Sarah glabrata in the sputum on 03/14/2024. Chronic urinary retention with indwelling Horn catheter, rule out recurrent infection. History of constipation status post decompressive sigmoidoscopy during her previous hospitalization. Type 2 diabetes, maintained on insulin. Benign essential hypertension. Dyslipidemia. Severe protein calorie malnutrition. Chronic unstageable decubitus pressure ulcer and multiple skin ulcerations involving both lower extremities. Plan: Plan dated April 13, 2024. The patient remains very stable as she has the last few days. The patient is currently on all oral medications including Macrobid, Omnicef, and Flagyl. The patient could be discharged from the pulmonary standpoint. She is currently on room air. No fluids. Time with Patient: Less than 30
[2024-04-13 16:21] LABS: Glucose,Whole Blood 237 mg/dL (70-110)
[2024-04-13 21:04] LABS: Glucose,Whole Blood 337 mg/dL (70-110)
--- NOTE | 2024-04-13 22:36 | DS ---
DISCHARGE SUMMARY Diagnosed with pulmonary embolism, systemic candidemia. Voriconazole was given as well as Diflucan. Blood culture was positive, just had Sarah in her urine, Sarah in her sputum, chronic urinary retention, and Horn catheter. Constipation with fecaloma, severe large decubitus sacral ulcer for which coverage has been placed on that daily and she had debridement in the hospital. Elevated white count came back to normal after decompression. She had a drug-resistant MRSA infection resistant to daptomycin. Dr. Pathak has been doing antibiotics for this. Type 2 diabetes mellitus, hypertension, COPD, pulmonary hypertension, severe protein-calorie malnutrition, unstable decubitus pressure ulcer. She is getting wound care and protein supplementation with Ensure supplements. She wears nighttime oxygen. She does breathing treatments during the day. She is to stay on these. She will go home on, 1. Prednisone 20 mg daily. 2. Levemir 10 units subcu daily. 3. Lovenox subcu for DVT and PE prophylaxis 40 mg subcu b.i.d. 4. Milk of magnesia 7200 mg daily p.r.n. for constipation,. 5. NovoLog before meals and at bedtime coverage scale. 6. Symbicort inhaler 160/4.5 two puffs b.i.d. 7. DuoNeb updraft q.i.d. 8. Flagyl 500 t.i.d. for 2 weeks. 9. Lasix 40 mg p.o. daily. 10.Lexapro 20 mg daily for depression. 11.Nitrofurantoin/Macrobid 100 b.i.d. for another 10 days. 12.Omnicef 300 b.i.d. for 10 days. 13.Zinc oxide 20% topically t.i.d. for wound healing. 14.Xanax XR 0.5 mg p.o. daily. 15.Melatonin 3 mg at night for sleep. 16.Nicotine patch 14 mg daily. 17.Pulmicort nebulizer 1 mg b.i.d. 18.Lactulose 20 g p.o. t.i.d. for constipation. 19.Norvasc 5 mg daily. 20.[facility] 5/325 every 6 hours p.r.n. 21.Singulair 10 mg daily. 22.Lactobacillus/Culturelle b.i.d. 23.Protonix 40 mg p.o. b.i.d. 24.Tylenol p.r.n. 25.Santyl ointment to the wounds daily. Stage IV coccyx wound. Condition stable. Prognosis guarded. She will need to be alternated in bed due to coccyx wound stage IV. She is applying Santyl ointment daily to this wound, wet to dry and she will have to have physical therapy to get her up on her feet and get stronger movement. Gave her Lexapro for depression. Dr. Pathak will follow up with the wound care. Continue with breathing treatments, oxygen at night, [facility] for pain, Xanax for anxiety. Prognosis guarded. Please see further orders. Diet as tolerated. Keep her on a consistent carb, low sugar diet, high-protein diet, and protein supplements daily with like Ensure. Prognosis guarded. Please see further orders. MMODL / IJN: [id number] /
[2024-04-14 05:55] LABS: Glucose,Whole Blood 57 mg/dL (70-110)
[2024-04-14 06:25] LABS: Glucose,Whole Blood 119 mg/dL (70-110)
[2024-04-14 11:43] LABS: Glucose,Whole Blood 140 mg/dL (70-110)
[2024-04-14 13:55] VITALS: PULSE 97; RESP 14
--- NOTE | 2024-04-14 14:03 | P.PN ---
Subjective Progress Note Date: 04/14/24 64-year-old female patient, known to us, the patient was treated in the hospital when she had a prolonged hospitalization from 01/30/2024 and she was discharged on 03/24/2024 to be readmitted to hospital on 03/29/2024 with worsening shortness of breath and respiratory failure. The patient was seen in emergency department. The patient is a significant respiratory distress and the patient is currently on a BiPAP at a pressure of 12 over 5 cm of water and FiO2 of 50%. Her current respiratory rate is in the low 30s. Blood pressure is stable. The patient is extremely lethargic, weak, has chronic wounds in her lower extremities bilaterally, has an indwelling Horn catheter which was present at the halfway she has not she is nonambulatory status in right foot is extremely cloudy with significant amount of debris's and some purulence. Chest x-ray was emergency department and it shows an extensive area of consolidation involving the left lung along with some small bilateral pleural effusions and background COPD. The patient was given Zithromax and Zosyn. ICU consultation was requested This patient is known to have advanced COPD. During her last hospitalization, the patient was in acute hypoxic respiratory failure requiring intubation mechanical ventilation and he was ultimately extubated on 03/17/2024. During the course of her illness, she was bronchoscope and the sputum sample on 03/13/2024 and 03/14/2024 was positive for haemophilus influenza and she was treated accordingly. She was also diagnosed having a right upper lobe pulmonary embolism treated with anticoagulation with Eliquis. During the course of her illness, the patient had systemic candidemia and the blood cultures was on 02/11/2024 was positive for Sarah albicans and the bronchial washings also showed Sarah glabrata. Urine culture was also positive for Sarah. The patient was given IV Diflucan and she completed the course of antifungal treatment. Her echocardiogram showed no evidence of any vegetation and her left-ventricular ejection fraction was essentially within normal limits. Infection and a hyperdynamic heart with an EF of around 70 to 75%. No significant valvular abnormalities. Her current labs show a white cell count of 22.3 which has been elevated since her discharge from the hospital, hemoglobin 11.7 and platelet count is 407, serum bicarbonate 30 and sodium levels of 134, BUN is 22 with a creatinine of 0.25. LFTs are within normal limits. Most recent procalcitonin level from 03/24/2024 was at 0.08. Blood cultures have been sent. On 03/30/2024, the patient was taken off the BiPAP and the patient has been transitioned to oxygen at 3 L/min nasal cannula. No new complaints. Chest x- ray findings are essentially unchanged. The patient has stable right basilar and left midlung consolidation and bilateral pleural effusions. Nevertheless, she seems to be much more comfortable. She continues to have a congested cough and she is on a broad-spectrum antibiotics and the patient is currently on a combination of cefepime, vancomycin and voriconazole. Awaiting follow-up cul tures on this patient. The white cell count is down to 18 with a hemoglobin 10.3 and a platelet count of 350. Electrolytes are stable with a BUN of 25 and a creatinine of 0.2. Procalcitonin level is at 0.57. She is weak yet awake and alert. Communicating. She has chronic wounds in lower extremities and some ongoing +1 edema lower extremities bilaterally. Moving all 4 extremities other than limitation. No altered mentation at this point in time. On 03/31/2024, the patient is stable. The patient remains on 40 Suboxone by nasal cannula. The patient does receive with IV Lasix and she is in a negative fluid balance of 1.8 L over the past 24 hours. Meanwhile, chest x-ray from today shows stable bilateral pulm infiltrates. The patient remains on the same antibiotic coverage includes cefepime, vancomycin and voriconazole. Blood cultures are still negative. The white cell count of 19 with a hemoglobin 10.7 and platelet count of 383. BUN is 23 with a creatinine 0.3. Sodium level is at 137. The patient continues to have wound care to lower extremities. Awake and alert and communicating. Remains on bronchodilators. Remains on steroids. Remains on Levemir insulin for blood sugar control at 15 units at bedtime and a sliding scale coverage. No other significant events overnight. The patient is being seen for a follow-up. The patient is doing well. No specific complaints. Continues to diurese. Blood cultures are negative the patient remains on the same antibiotic coverage. The white cell count from today is at 23 with a hemoglobin of 10 and a platelet count of 334. Electrolytes are all stable with a BUN of 19 and a creatinine of 0.3. Sodium levels at 141. No other significant events overnight. She is currently on oxygen at 4 L/min nasal cannula. 04/02/2024, the patient is doing well. She continues B12 with Lasix and the patient is -2.9 L over the past 24 hours. Edema is improving. Meanwhile, repeat chest x-ray was done and the pulmonary findings are essentially stable. The white cell count from yesterday was 23 and awaiting follow-up labs from to day. Renal function is also stable from yesterday. The patient remains on IV Lasix. The patient remains on cefepime vancomycin and voriconazole. Cultures are negative thus far. No interval worsening shortness of breath. No new findings or new complaints for now. She remains stable on 4 L of oxygen by nasal cannula. The patient is seen today April 03, 2024 in follow-up on the regular medical floor. She is currently sitting up in bed. Awake and alert in no acute distress. She is maintaining O2 saturations in the 90s on 4 L/min per nasal cannula. She has been refusing BiPAP support at night. She has been refusing to get up out of bed. She does have a wound on her coccyx. She is having some issues with diarrhea. Chest x-ray reveals left perihilar and right lower lobe infiltrates. She remains on cefepime and voriconazole. She denies any shortness of breath, cough or congestion. No fever or chills. 7. Bicarb 30. BUN 23. Creatinine 0.19. Glucose 84. She is continued on inhalations, Pulmicort and Perforomist inhalations, Solu-Medrol. The patient is seen today April 04, 2024 in follow-up on the regular medical floor. She is awake and alert in no acute distress. She continues to be reluctant to move about or get up out of bed or even have staff change her when she has had a bowel movement. She does have an unstageable ulcer on her sacrum and multiple nonhealing ulcers of the bilateral lower extremities with fat layer exposure that is being followed by wound center's nurse practitioner. Glucose 90. She is continued on DuoNeb inhalations, Pulmicort and Perforomist inhalations, prednisone. The patient is seen today April 05, 2024 in follow-up on the regular medical floor. She is sitting up in bed. Awake and alert in no acute distress. Maintaining O2 saturations in the 90s on 4 L/min per nasal cannula. She is continued on DuoNeb inhalations, Symbicort, prednisone taper. Currently on Omnicef and voriconazole. Remains on diuretics. Glucose 205. C. difficile screen was negative. The patient is seen today April 06, 2024 in follow-up on the regular medical floor. She is awake and alert in no acute distress. Resting comfortably in bed. Denies any worsening shortness of breath, cough or congestion. Maintaining O2 saturations in the 90s up to 100% on 4 L/min per nasal cannula. She is afebrile. Hemodynamically stable. She is being followed by the wound center for an unstageable pressure ulcer on her sacrum and lower extremity ulcerations and inflammation. And voriconazole. She remains on DuoNeb inhalations, Symbicort, prednisone taper. Lovenox for DVT prophylaxis. Remains on oral diuretics. Globin 10.4. Platelets 307. Sodium 138. Potassium 3.6. Bicarb 29. BUN 16. Creatinine 0.2. Glucose 103. The patient is seen today April 07, 2024 in follow-up on the regular medical floor. She is resting comfortably in bed. Awake and alert in no acute distress. Denies any worsening shortness of breath, cough or congestion. She i s maintaining good O2 saturations in the upper 90s on 3 L/min per nasal cannula. She has been afebrile. Hemodynamically stable. White count 22.3. Hemoglobin 10.0. Platelets 337. Sodium 137. Potassium 3.9. Bicarb 27. BUN 17. Creatinine 0.2. Glucose 304. AST 17. ALT 21. She is continued on DuoNeb inhalations, Symbicort. Lovenox for DVT prophylaxis. Prednisone taper. Antibiotics in the form of Omnicef. Remains on oral diuretics. Currently in a -1.1 L balance. The patient is seen today April 08, 2024 in follow-up on the regular medical floor. She is awake and alert in no acute distress. She is resting comfortably in bed. She denies any worsening shortness of breath, cough or congestion. A CT scan of the chest abdomen and pelvis was performed yesterday. Lung findings revealed small lower lobe infiltrates with a small right effusion and moderate left effusion. No masses. No lymphadenopathy. There is mild to moderate ascites. Marked anasarca. Nonhealed right pubic bone fracture. Healed fractures of the bilateral inferior pubic rami. Orthopedics had been consulted yesterday. Glucose 251. She is stable on 3 L nasal cannula with O2 saturation of 98%. Afebrile. Hemodynamically stable. She remains on DuoNeb inhalations, Symbicort, prednisone. Lovenox for DVT prophylaxis. Antibiotics in the form of Omnicef. Blood and urine cultures negative. The patient is seen today April 09, 2024 in follow-up on the regular medical floor. She is resting comfortably in bed. Awake and alert in no acute distress. She is maintaining good O2 saturations in the high 90s on 2 L/min per nasal cannula. She is afebrile. Hemodynamically stable. She remains on DuoNeb inhalations, Symbicort, prednisone. Lovenox for DVT prophylaxis. Antibiotics in the form of Omnicef. Blood and urine cultures negative. White count 18.4. Hemoglobin 9.6. Platelets 411. Sodium 138. Potassium 3.5. Bicarb 27. BUN 19. Creatinine 0.3. Glucose 287. The patient is seen today April 10, 2024 in follow-up on the regular medical floor. She is awake and alert in no acute distress. Resting comfortably in bed. Denies any worsening shortness of breath, cough or congestion. She is maintaining O2 saturation in the 90s on 2 L/min per nasal cannula. Afebrile. Hemodynamically stable. Urine culture was positive for Enterococcus faecium VRE and Sarah glabrata. She remains on Omnicef, Flagyl, voriconazole. Continued on bronchodilators and prednisone taper. Glucose 103. The patient is seen today April 11, 2024 in follow-up on the regular medical floor. She is resting in bed. Awake and alert in no acute distress. She denies any worsening shortness of breath, cough or congestion. She is maintaining good O2 saturations in the 90s on 2 L/min per nasal cannula. She h as normal saline at 70 mL/h. She remains on Flagyl, daptomycin, Omnicef. She is continued on DuoNeb ventilations, Symbicort, prednisone. Remains on oral diuretics. Lovenox. White count 14.4. Hemoglobin 9.7. Platelets 463. Sodium 143. Potassium 3.7. Bicarb 26. BUN 16. Creatinine 0.2. Glucose 160. The patient is seen again today April 12, 2024 in follow-up on the regular medical floor. She is resting comfortably in bed. Denies any shortness of breath, cough or congestion. Continues to maintain good O2 saturations in the 90s on 2 L/min per nasal cannula. She is continued on DuoNeb inhalations, Symbicort, prednisone. Remains on oral diuretics. Lovenox for DVT prophylaxis. Urine culture from April 07, 2024 was positive for Enterococcus faecium VRE. She is currently on Omnicef and Flagyl. White count 18.8. Hemoglobin 9.2. Platelets 434. Sodium 143. Potassium 4.3. Bicarb 24. BUN 19. Creatinine 0.3. Glucose 282. The patient is seen today 04/14/2024 in follow-up on the regular medical floor. She is awake and alert in no acute distress. She is maintaining good O2 saturations in the 90s on room air. She denies any worsening shortness of breath, cough or congestion. glucose 140. She remains on DuoNeb inhalations, Symbicort, prednisone. Lovenox for anticoagulation. Objective - Vital Signs Vital signs: Vital Signs Temp 98.2 F 04/14/24 06:43 Pulse 97 04/14/24 13:26 Resp 14 04/14/24 13:26 BP 151/74 04/14/24 06:43 Pulse Ox 98 04/14/24 06:43 FiO2 50 04/03/24 01:06 Intake & Output 04/13/24 04/14/24 04/14/24 18:59 06:59 18:59 Output Total 800 325 800 Balance -800 -325 -800 Output: Urine 800 325 800 Uretheral (Horn) 800 Other: Voiding Method Indwelling Catheter Indwelling Catheter # Bowel Movements 1 - Exam GENERAL EXAM: Awake, 64-year-old female, resting in bed, on room air. HEAD: Normocephalic and atraumatic EYES: Normal reaction of pupils, equal size. NOSE: Clear with pink turbinates. THROAT: No erythema or exudates. NECK: No masses, no JVD. CHEST: No chest wall deformity. LUNGS: Diminished breath sounds at the bases with few scattered rhonchi and crackles. CVS: Distant S1-S2, no S3 gallop, no murmur. ABDOMEN: Soft nontender no rebound no guarding. Bowel sounds. SKIN: Unstageable pressure injury on the sacrum. Bilateral lower extremity wounds. Multiple superficial ulcerations noted in both lower extremities. No active drainage. Currently with Flaco wraps. Pulses in lower extremities present. There are some edema in her ankles bilaterally and some edema in the upper extremities bilaterally. CENTRAL NERVOUS SYSTEM: Alert and oriented x 3, no gross focal neurologic deficit, moving all 4 extremities other than limitation. EXTREMITIES: Wraps to the bilateral lower extremities. Pulses are intact. - Labs CBC & Chem 7: 04/12/24 04:06 04/12/24 04:06 Labs: Abnormal Lab Results - Last 24 Hours (Table) 04/13/24 04/13/24 04/14/24 Range/Units 16:20 21:03 05:53 POC Glucose (mg/dL) 237 H 337 H 57 L (70-110) mg/dL 04/14/24 04/14/24 Range/Units 06:24 11:41 POC Glucose (mg/dL) 119 H 140 H (70-110) mg/dL Assessment and Plan Assessment: Acute hypoxic respiratory failure requiring BiPAP support, secondary to acute multifocal pneumonia, the patient developed new infiltration of the lungs more extensive on the left, consider the possibility of healthcare associated pneumonia. The patient is improved and stable. On 3 L of oxygen by nasal cannula. Chest x-ray findings are showing stable bilateral pulmonary cons olidation left more than right. Remains on Omnicef. CT scan of the chest from 04/07/2024 revealed bibasilar infiltrates and pleural effusions left greater than right. Findings are evident of postinflammatory changes from her previous pneumonia Previous history of multifocal pneumonia, secondary to Haemophilus influenzae, diagnosed via bronchoscopy and BAL Urinary tract infection secondary to Enterococcus faecium VRE and Sarah glabrata. Remains on Omnicef, Flagyl COPD Known history of a right upper lobe pulmonary embolism, CT angiogram this admission on March 29, 2024 revealed no evidence of pulmonary embolism. Resolution of previously seen pulmonary embolism. History of systemic candidemia, completed a course of Diflucan. The patient was also being given voriconazole on outpatient basis. Most recent positive blood culture was done 02/11/2024. The patient also had Sarah in her urine on 01/29/2024) and Sarah glabrata in the sputum on 03/14/2024. Chronic urinary retention with indwelling Horn catheter, rule out recurrent infection History of constipation status post decompressive sigmoidoscopy during her previous hospitalization Type 2 diabetes, maintained on insulin Benign essential hypertension Dyslipidemia Severe protein calorie malnutrition Chronic unstageable decubitus pressure ulcer and multiple skin ulcerations involving both lower extremities Plan: The patient was seen and evaluated Medications reviewed Continue the current treatment plan Antibiotics per ID service Plan is to return to [facility] at discharge I have personally seen and examined the patient, performed the documentation and the assessment and plan as written. Number of minutes spent on the visit: 10.
[2024-04-14 14:45] VITALS: BP 124/72; TEMP 98.4
--- NOTE | 2024-04-14 16:28 | P.PN ---
Subjective Progress Note Date: 04/14/24 Principal diagnosis: Reason for follow-up is pneumonia Patient is a 54-year-old female with a past medical history significant for diabetes mellitus hypertension hyperlipidemia PE COPD had recent admission to the hospital treated for pneumonia sputum was positive for H aemophilus influenzae received [facility] brought back to the hospital worsening respiratory status and concern for possible pneumonia requiring admission in the ICU. On today's evaluation that is 04/14/2024, patient has been afebrile, patient is breathing comfortably and is currently on room air, patient denies having any significant cough no chest pain shortness of breath, patient denies nausea vomiting or diarrhea and no abdominal pain, mention feeling better wants to go to the rehab. Objective - Vital Signs Vital signs: Vital Signs Temp 98.2 F 04/14/24 06:43 Pulse 88 04/14/24 09:02 Resp 17 04/14/24 08:00 BP 151/74 04/14/24 06:43 Pulse Ox 98 04/14/24 06:43 FiO2 50 04/03/24 01:06 Intake & Output 04/13/24 04/14/24 04/14/24 18:59 06:59 18:59 Output Total 800 325 Balance -800 -325 Output: Urine 800 325 Other: Voiding Method Indwelling Catheter Indwelling Catheter # Bowel Movements 1 - Exam GENERAL DESCRIPTION: Middle-age female lying in bed in no distress RESPIRATORY SYSTEM: Unlabored breathing , decreased breath sounds at bases HEART: S1 S2 regular rate and rhythm , ABDOMEN: Soft , no tenderness EXTREMITIES: No edema feet - Labs CBC & Chem 7: 04/12/24 04:06 04/12/24 04:06 Labs: Abnormal Lab Results - Last 24 Hours (Table) 04/13/24 04/13/24 04/14/24 Range/Units 16:20 21:03 05:53 POC Glucose (mg/dL) 237 H 337 H 57 L (70-110) mg/dL 04/14/24 04/14/24 Range/Units 06:24 11:41 POC Glucose (mg/dL) 119 H 140 H (70-110) mg/dL Assessment and Plan (1) Leukocytosis Status: Acute Code(s): D72.829 - ELEVATED WHITE BLOOD CELL COUNT, UNSPECIFIED SNOMED Code(s): 036153049 (2) Pneumonia Status: Acute Code(s): J18.9 - PNEUMONIA, UNSPECIFIED ORGANISM SNOMED Code(s): 424278968 (3) VRE (vancomycin resistant enterococcus) culture positive Status: Acute Code(s): Z22.39 - CARRIER OF OTHER SPECIFIED BACTERIAL DISEASES SNOMED Code(s): 200002404 (4) Urinary tract infection Status: Acute Code(s): N39.0 - URINARY TRACT INFECTION, SITE NOT SPECIFIED SNOMED Code(s): 05913455 Plan: 1patient was in the hospital with sepsis in this patient who did have a leukocytosis tachycardia hypoxemia admitted currently for SIRS/sepsis source likely pneumonia concern for possible gram-negative versus gram-positive recently treated for Haemophilus influenzae pneumonia 2 blood culture remains to be negative, urine for Legionella antigen currently pending procalcitonin was mildly elevated 0.57 on the patient nasal screen MRSA has been negative 3-patient remains to be afebrile patient, stool for C. difficile is negative to continue Questran as needed 4patient did have worsening of her sacral pressure ulcer with significant mount of slough necrotic tissue for which general surgery has been consulted and apparently did have bedside debridement done no cultures 5-patient urine culture Sarah glabrata and VRE , we will advise Macrobid and oral voriconazole x 7 days on discharge also discussed with the nurse staff to change her Horn catheter before discharge. Family at the bedside questions answered Dictation was produced using [employer] dictation software. please excuse any grammatical, word or spelling errors. Time with Patient: Less than 30
== END 2024-04-14 16:08 | DRG 720 ==
LOC: EC 06:55 → 3SCARD 09:31 → 2SICU 10:17 → 4SSUR 03-30 21:18
PROVIDERS: ADMIT Family Medicine; ATTEND Family Medicine
PROC: 05HB33Z Insertion of Infusion Device into Right Basilic Vein, Percutaneous Approach (ICD-10-PCS; 2024-03-31 16:45)
PROC: 05HC33Z Insertion of Infusion Device into Left Basilic Vein, Percutaneous Approach (ICD-10-PCS; 2024-04-03)
PROC: 0JB70ZZ Excision of Back Subcutaneous Tissue and Fascia, Open Approach (ICD-10-PCS; principal; 2024-04-09)
DX: A41.9 Sepsis, unspecified organism (principal); B95.2 Enterococcus as the cause of diseases classified elsewhere; E11.621 Type 2 diabetes mellitus with foot ulcer; E11.622 Type 2 diabetes mellitus with other skin ulcer; E11.649 Type 2 diabetes mellitus with hypoglycemia without coma; E43 Unspecified severe protein-calorie malnutrition; Z68.22 Body mass index [BMI] 22.0-22.9, adult; F17.200 Nicotine dependence, unspecified, uncomplicated; I11.0 Hypertensive heart disease with heart failure; R18.8 Other ascites; L97.929 Non-pressure chronic ulcer of unspecified part of left lower leg with unspecified severity; J69.0 Pneumonitis due to inhalation of food and vomit; I26.99 Other pulmonary embolism without acute cor pulmonale; L89.154 Pressure ulcer of sacral region, stage 4; J96.21 Acute and chronic respiratory failure with hypoxia; J44.0 Chronic obstructive pulmonary disease with (acute) lower respiratory infection; L97.519 Non-pressure chronic ulcer of other part of right foot with unspecified severity; J44.1 Chronic obstructive pulmonary disease with (acute) exacerbation; N17.9 Acute kidney failure, unspecified; F32.A Depression, unspecified; I87.313 Chronic venous hypertension (idiopathic) with ulcer of bilateral lower extremity; I27.20 Pulmonary hypertension, unspecified; I50.9 Heart failure, unspecified; L89.613 Pressure ulcer of right heel, stage 3; S32.501A Unspecified fracture of right pubis, initial encounter for closed fracture; S32.039A Unspecified fracture of third lumbar vertebra, initial encounter for closed fracture; E78.5 Hyperlipidemia, unspecified; I25.10 Atherosclerotic heart disease of native coronary artery without angina pectoris; K59.09 Other constipation; M81.0 Age-related osteoporosis without current pathological fracture; N39.0 Urinary tract infection, site not specified; Y95 Nosocomial condition; F41.9 Anxiety disorder, unspecified; Z16.21 Resistance to vancomycin; Z75.1 Person awaiting admission to adequate facility elsewhere; Z79.01 Long term (current) use of anticoagulants; Z86.711 Personal history of pulmonary embolism; Z87.01 Personal history of pneumonia (recurrent); Z87.81 Personal history of (healed) traumatic fracture; Z79.4 Long term (current) use of insulin; Z79.51 Long term (current) use of inhaled steroids; Z79.899 Other long term (current) drug therapy; Z86.718 Personal history of other venous thrombosis and embolism
CPT/HCPCS: 36410; 36415; 36600; 71045; 71250; 71275; 74176; 76937; 80048; 80053; 80202; 81001; 82805; 83605; 83735; 83880; 84132; 84145; 84484; 85025; 85610; 85730; 86140; 87040; 87070; 87077; 87086; 87186; 87324; 87449; 93005; 94640; 94660; 94760; 96365; 96366; 96367; 96368; 96372; 96375; 96376; 99291

== ENCOUNTER → 2024-05-10 | Outpatient (CLI) | payer OTHER | END | disposition home or self-care (01) | LOC: LABPRL 06:08 | PROVIDERS: ATTEND Family Medicine | DX: L89.154 Pressure ulcer of sacral region, stage 4 (principal) | CPT/HCPCS: 80053; 85027; 85652; 86140 ==

== ENCOUNTER 2024-05-11 20:45 | Inpatient (IN) | payer OTHER ==
[~2024-05-11 20:45] MED LIST: ACETAMINOPHEN TAB 325 MG TAB ONE; HYDROmorphone 0.5 MG/0.5 ML SYRINGE ONE; IBUPROFEN 600 MG TAB PO ONE; PIPERACILLIN-TAZOBACTAM 3.375 GM VIAL ONE; SODIUM CHLORIDE 0.9% 100 ML BAG ONE
[2024-05-11] MEDS ORDERED: PIPERACILLIN-TAZOBACTAM 3.375 GM VIAL ONE (22:56)
[2024-05-12] MEDS ORDERED: SODIUM CHLORIDE 0.9% 100 ML BAG IV ONE (08:00)
[2024-05-12] MEDS ORDERED: PIPERACILLIN-TAZOBACTAM 3.375 GM VIAL ONE (10:54)
[2024-05-12] MEDS ORDERED: HYDROcodone/APAP 5-325MG 1 EACH TAB ONE (15:28)
[2024-05-12] MEDS ORDERED: HYDROmorphone 0.5 MG/0.5 ML SYRINGE ONE (17:57)
[2024-05-12] MEDS ORDERED: INSULIN ASPART (NovoLOG) 100 UNIT/ML VIAL SQ ONE ×2 (17:59→20:54)
[2024-05-12] MEDS ORDERED: VANCOMYCIN 1,000 MG VIAL ONE (18:01)
[2024-05-12] MEDS ORDERED: SODIUM CHLORIDE 0.9% 1,000 ML BAG ONE (18:01)
[2024-05-12] MEDS ORDERED: SODIUM CHLORIDE 0.9% 250 ML BAG ONE (18:01)
[2024-05-12] MEDS ORDERED: ENOXAPARIN 40 MG/0.4 ML SYRINGE SQ ONE (20:52)
[2024-05-12] MEDS ORDERED: LACTULOSE 20 GM/30 ML CUP ONE (20:52)
[2024-05-12] MEDS ORDERED: PANTOPRAZOLE 40 MG TABLET PO ONE (20:53)
[2024-05-12] MEDS ORDERED: HEPARIN SODIUM,PORCINE 5,000 UNIT/ML 1 ML VIAL ONE (20:53)
[2024-05-12] MEDS ORDERED: MONTELUKAST 10 MG TAB ONE (20:53)
[2024-05-12] MEDS ORDERED: ALPRAZolam 0.25 MG TAB ONE (20:54)
[2024-05-13] MEDS ORDERED: SODIUM CHLORIDE 0.9% 100 ML BAG IV ONE (00:01)
[2024-05-13] MEDS ORDERED: IPRATROPIUM-ALBUTEROL 3 ML NEB ONE (04:27)
[2024-05-13] MEDS ORDERED: PIPERACILLIN-TAZOBACTAM 3.375 GM VIAL ONE ×2 (05:19→14:33)
[2024-05-13] MEDS ORDERED: INSULIN ASPART (NovoLOG) 100 UNIT/ML VIAL SQ ONE ×3 (06:00→22:07)
[2024-05-13] MEDS ORDERED: HYDROmorphone 0.5 MG/0.5 ML SYRINGE ONE ×3 (06:00→22:06)
[2024-05-13] MEDS ORDERED: SYMBICORT 160-4.5 MCG INHALER INHALATION ONE (08:00)
[2024-05-13] MEDS ORDERED: HYDROcodone/APAP 5-325MG 1 EACH TAB ONE (09:33)
[2024-05-13] MEDS ORDERED: LACTULOSE 20 GM/30 ML CUP ONE (15:55)
[2024-05-13] MEDS ORDERED: HEPARIN SODIUM,PORCINE 5,000 UNIT/ML 1 ML VIAL ONE (22:05)
[2024-05-13] MEDS ORDERED: PANTOPRAZOLE 40 MG TABLET PO ONE (22:05)
[2024-05-13] MEDS ORDERED: ALPRAZolam 0.5 MG TAB ONE (22:05)
[2024-05-13] MEDS ORDERED: MONTELUKAST 10 MG TAB ONE (22:07)
[2024-05-14] MEDS ORDERED: HYDROcodone/APAP 5-325MG 1 EACH TAB ONE ×3 (00:34→17:15)
[2024-05-14] MEDS ORDERED: HYDROmorphone 0.5 MG/0.5 ML SYRINGE ONE ×2 (05:54→22:29)
[2024-05-14] MEDS ORDERED: ALPRAZolam 0.5 MG TAB ONE ×2 (07:59→22:21)
[2024-05-14] MEDS ORDERED: amLODIPine 5 MG TAB ONE (08:03)
[2024-05-14] MEDS ORDERED: POTASSIUM CHLORIDE ER 10 MEQ TAB.ER.PRT PO ONE (08:03)
[2024-05-14] MEDS ORDERED: HEPARIN SODIUM,PORCINE 5,000 UNIT/ML 1 ML VIAL ONE ×2 (08:03→22:20)
[2024-05-14] MEDS ORDERED: LACTOBACILLUS ACIDOPHILUS/PECT 1 EACH CAPSULE PO ONE ×2 (08:03→22:19)
[2024-05-14] MEDS ORDERED: NICOTINE 14MG/24HR PATCH TRANSDERM ONE (08:03)
[2024-05-14] MEDS ORDERED: PANTOPRAZOLE 40 MG TABLET PO ONE ×2 (08:04→22:20)
[2024-05-14] MEDS ORDERED: FUROSEMIDE 40 MG TAB ONE (08:04)
[2024-05-14] MEDS ORDERED: LACTULOSE 20 GM/30 ML CUP ONE ×3 (08:04→22:20)
[2024-05-14] MEDS ORDERED: ESCITALOPRAM 20 MG TAB ONE (08:04)
[2024-05-14] MEDS ORDERED: LEVOFLOXACIN 500 MG TAB ONE (08:04)
[2024-05-14] MEDS ORDERED: predniSONE 20 MG TAB ONE (08:05)
[2024-05-14] MEDS ORDERED: ENOXAPARIN 40 MG/0.4 ML SYRINGE SQ ONE (08:05)
[2024-05-14] MEDS ORDERED: INSULIN ASPART (NovoLOG) 100 UNIT/ML VIAL SQ ONE ×4 (12:22→22:23)
[2024-05-14] MEDS ORDERED: MONTELUKAST 10 MG TAB ONE (22:20)
[2024-05-14] MEDS ORDERED: HYDROmorphone 1 MG/ML 1 ML SYRINGE ONE (22:22)
[2024-05-15] MEDS ORDERED: ARIPiprazole 2 MG TAB ONE (00:01)
[2024-05-15] MEDS ORDERED: INSULIN ASPART (NovoLOG) 100 UNIT/ML VIAL SQ ONE ×5 (00:01→21:12)
[2024-05-15] MEDS ORDERED: SYMBICORT 160-4.5 MCG INHALER INHALATION ONE (00:01)
[2024-05-15] MEDS ORDERED: VANCOMYCIN 1,000 MG VIAL ONE (00:01)
[2024-05-15] MEDS ORDERED: SODIUM CHLORIDE 0.9% 250 ML BAG ONE (00:01)
[2024-05-15] MEDS ORDERED: HYDROcodone/APAP 5-325MG 1 EACH TAB ONE ×4 (02:33→23:15)
[2024-05-15] MEDS ORDERED: LACTULOSE 20 GM/30 ML CUP ONE (06:35)
[2024-05-15] MEDS ORDERED: amLODIPine 5 MG TAB ONE (09:54)
[2024-05-15] MEDS ORDERED: POTASSIUM CHLORIDE ER 10 MEQ TAB.ER.PRT PO ONE (09:54)
[2024-05-15] MEDS ORDERED: HEPARIN SODIUM,PORCINE 5,000 UNIT/ML 1 ML VIAL ONE ×2 (09:54→21:11)
[2024-05-15] MEDS ORDERED: NICOTINE 14MG/24HR PATCH TRANSDERM ONE (09:54)
[2024-05-15] MEDS ORDERED: LACTOBACILLUS ACIDOPHILUS/PECT 1 EACH CAPSULE PO ONE (09:54)
[2024-05-15] MEDS ORDERED: ESCITALOPRAM 20 MG TAB ONE (09:55)
[2024-05-15] MEDS ORDERED: PANTOPRAZOLE 40 MG TABLET PO ONE ×2 (09:55→21:11)
[2024-05-15] MEDS ORDERED: predniSONE 20 MG TAB ONE (09:55)
[2024-05-15] MEDS ORDERED: FUROSEMIDE 40 MG TAB ONE (09:55)
[2024-05-15] MEDS ORDERED: IPRATROPIUM-ALBUTEROL 3 ML NEB ONE ×2 (11:22→17:43)
[2024-05-15] MEDS ORDERED: MONTELUKAST 10 MG TAB ONE (21:11)
[2024-05-15] MEDS ORDERED: ALPRAZolam 0.5 MG TAB ONE (21:11)
[2024-05-16] MEDS ORDERED: ARIPiprazole 2 MG TAB ONE (00:01)
[2024-05-16] MEDS ORDERED: SODIUM CHLORIDE 0.9% 250 ML BAG ONE (00:01)
[2024-05-16] MEDS ORDERED: SODIUM CHLORIDE 0.9% 100 ML BAG ONE (00:01)
[2024-05-16] MEDS ORDERED: VANCOMYCIN 1,000 MG VIAL ONE (00:01)
[2024-05-16] MEDS ORDERED: IPRATROPIUM-ALBUTEROL 3 ML NEB ONE (05:43)
[2024-05-16] MEDS ORDERED: amLODIPine 5 MG TAB ONE (09:45)
[2024-05-16] MEDS ORDERED: LACTOBACILLUS ACIDOPHILUS/PECT 1 EACH CAPSULE PO ONE ×2 (09:45→21:57)
[2024-05-16] MEDS ORDERED: HEPARIN SODIUM,PORCINE 5,000 UNIT/ML 1 ML VIAL ONE ×2 (09:46→21:58)
[2024-05-16] MEDS ORDERED: NICOTINE 14MG/24HR PATCH TRANSDERM ONE (09:46)
[2024-05-16] MEDS ORDERED: PANTOPRAZOLE 40 MG TABLET PO ONE ×2 (09:46→21:58)
[2024-05-16] MEDS ORDERED: ESCITALOPRAM 20 MG TAB ONE (09:46)
[2024-05-16] MEDS ORDERED: POTASSIUM CHLORIDE ER 10 MEQ TAB.ER.PRT PO ONE (09:46)
[2024-05-16] MEDS ORDERED: LACTULOSE 20 GM/30 ML CUP ONE ×2 (09:46→21:58)
[2024-05-16] MEDS ORDERED: predniSONE 20 MG TAB ONE (09:47)
[2024-05-16] MEDS ORDERED: FUROSEMIDE 40 MG TAB ONE (09:47)
[2024-05-16] MEDS ORDERED: HYDROcodone/APAP 5-325MG 1 EACH TAB ONE ×2 (10:11→16:34)
[2024-05-16] MEDS ORDERED: HYDROmorphone 0.5 MG/0.5 ML SYRINGE ONE (12:41)
[2024-05-16] MEDS ORDERED: ONDANSETRON 4 MG/2 ML VIAL ONE ×2 (12:41→17:07)
[2024-05-16] MEDS ORDERED: INSULIN ASPART (NovoLOG) 100 UNIT/ML VIAL SQ ONE ×2 (16:35→21:59)
[2024-05-16] MEDS ORDERED: CEFEPIME 2 GM VIAL IVPB ONE ×2 (16:42→21:59)
[2024-05-16] MEDS ORDERED: metroNIDAZOLE 500 MG TAB ONE ×2 (16:43→21:58)
[2024-05-16] MEDS ORDERED: MONTELUKAST 10 MG TAB ONE (21:57)
[2024-05-16] MEDS ORDERED: ALPRAZolam 0.5 MG TAB ONE (21:58)
[2024-05-17] MEDS ORDERED: SODIUM CHLORIDE 0.9% 250 ML BAG ONE (00:01)
[2024-05-17] MEDS ORDERED: SODIUM CHLORIDE 0.9% 100 ML BAG IV ONE (00:01)
[2024-05-17] MEDS ORDERED: ARIPiprazole 2 MG TAB ONE (00:01)
[2024-05-17] MEDS ORDERED: ESCITALOPRAM 20 MG TAB ONE (00:01)
[2024-05-17] MEDS ORDERED: VANCOMYCIN 1,000 MG VIAL ONE (00:01)
[2024-05-17] MEDS ORDERED: HYDROmorphone 0.5 MG/0.5 ML SYRINGE ONE ×4 (01:53→20:17)
[2024-05-17] MEDS ORDERED: LACTULOSE 20 GM/30 ML CUP ONE ×3 (06:17→21:29)
[2024-05-17] MEDS ORDERED: INSULIN ASPART (NovoLOG) 100 UNIT/ML VIAL SQ ONE ×3 (06:17→21:41)
[2024-05-17] MEDS ORDERED: metroNIDAZOLE 500 MG TAB ONE ×2 (06:17→21:29)
[2024-05-17] MEDS ORDERED: CEFEPIME 2 GM VIAL IVPB ONE ×2 (06:18→13:12)
[2024-05-17] MEDS ORDERED: amLODIPine 5 MG TAB ONE (09:22)
[2024-05-17] MEDS ORDERED: POTASSIUM CHLORIDE ER 10 MEQ TAB.ER.PRT PO ONE (09:22)
[2024-05-17] MEDS ORDERED: LACTOBACILLUS ACIDOPHILUS/PECT 1 EACH CAPSULE PO ONE ×2 (09:22→21:28)
[2024-05-17] MEDS ORDERED: NICOTINE 14MG/24HR PATCH TRANSDERM ONE (09:22)
[2024-05-17] MEDS ORDERED: predniSONE 20 MG TAB ONE (09:23)
[2024-05-17] MEDS ORDERED: FUROSEMIDE 40 MG TAB ONE (09:23)
[2024-05-17] MEDS ORDERED: HEPARIN SODIUM,PORCINE 5,000 UNIT/ML 1 ML VIAL ONE ×2 (09:23→21:28)
[2024-05-17] MEDS ORDERED: PANTOPRAZOLE 40 MG TABLET PO ONE ×2 (09:23→21:28)
[2024-05-17] MEDS ORDERED: MONTELUKAST 10 MG TAB ONE (21:28)
[2024-05-17] MEDS ORDERED: ALPRAZolam 0.5 MG TAB ONE (21:29)
[2024-05-18] MEDS ORDERED: SODIUM CHLORIDE 0.9% 100 ML BAG IV ONE (00:01)
[2024-05-18] MEDS ORDERED: ARIPiprazole 2 MG TAB ONE (00:01)
[2024-05-18] MEDS ORDERED: DEXTROSE 50% SYRINGE 50 ML IVP ONE ×2 (00:01→06:04)
[2024-05-18] MEDS ORDERED: CEFEPIME 2 GM VIAL IVPB ONE ×3 (01:21→21:19)
[2024-05-18] MEDS ORDERED: POTASSIUM CHLORIDE ER 10 MEQ TAB.ER.PRT PO ONE (08:49)
[2024-05-18] MEDS ORDERED: amLODIPine 5 MG TAB ONE (08:49)
[2024-05-18] MEDS ORDERED: LACTOBACILLUS ACIDOPHILUS/PECT 1 EACH CAPSULE PO ONE ×2 (08:49→21:16)
[2024-05-18] MEDS ORDERED: NICOTINE 14MG/24HR PATCH TRANSDERM ONE (08:49)
[2024-05-18] MEDS ORDERED: HEPARIN SODIUM,PORCINE 5,000 UNIT/ML 1 ML VIAL ONE ×2 (08:50→21:16)
[2024-05-18] MEDS ORDERED: ESCITALOPRAM 20 MG TAB ONE (08:50)
[2024-05-18] MEDS ORDERED: PANTOPRAZOLE 40 MG TABLET PO ONE ×2 (08:50→21:16)
[2024-05-18] MEDS ORDERED: FUROSEMIDE 40 MG TAB ONE (08:50)
[2024-05-18] MEDS ORDERED: predniSONE 20 MG TAB ONE (08:50)
[2024-05-18] MEDS ORDERED: LACTULOSE 20 GM/30 ML CUP ONE ×2 (13:22→21:16)
[2024-05-18] MEDS ORDERED: metroNIDAZOLE 500 MG TAB ONE ×2 (13:22→21:17)
[2024-05-18] MEDS ORDERED: INSULIN ASPART (NovoLOG) 100 UNIT/ML VIAL SQ ONE ×3 (13:29→21:18)
[2024-05-18] MEDS ORDERED: HYDROcodone/APAP 5-325MG 1 EACH TAB ONE (13:34)
[2024-05-18] MEDS ORDERED: HYDROmorphone 0.5 MG/0.5 ML SYRINGE ONE ×2 (14:39→18:33)
[2024-05-18] MEDS ORDERED: IPRATROPIUM-ALBUTEROL 3 ML NEB ONE (19:40)
[2024-05-18] MEDS ORDERED: MONTELUKAST 10 MG TAB ONE (21:16)
[2024-05-18] MEDS ORDERED: ALPRAZolam 0.5 MG TAB ONE (21:17)
[2024-05-19] MEDS ORDERED: SODIUM CHLORIDE 0.9% 100 ML BAG IV ONE (00:01)
[2024-05-19] MEDS ORDERED: DEXTROSE 50% SYRINGE 50 ML IVP ONE ×3 (00:01→07:24)
[2024-05-19] MEDS ORDERED: ARIPiprazole 2 MG TAB ONE (00:01)
[2024-05-19] MEDS ORDERED: LACTULOSE 20 GM/30 ML CUP ONE ×3 (06:11→21:47)
[2024-05-19] MEDS ORDERED: metroNIDAZOLE 500 MG TAB ONE ×3 (06:11→21:48)
[2024-05-19] MEDS ORDERED: CEFEPIME 2 GM VIAL IVPB ONE ×2 (06:11→21:49)
[2024-05-19] MEDS ORDERED: amLODIPine 5 MG TAB ONE (09:23)
[2024-05-19] MEDS ORDERED: PANTOPRAZOLE 40 MG TABLET PO ONE ×2 (09:25→21:47)
[2024-05-19] MEDS ORDERED: ESCITALOPRAM 20 MG TAB ONE (09:25)
[2024-05-19] MEDS ORDERED: HEPARIN SODIUM,PORCINE 5,000 UNIT/ML 1 ML VIAL ONE ×2 (09:25→21:47)
[2024-05-19] MEDS ORDERED: POTASSIUM CHLORIDE ER 10 MEQ TAB.ER.PRT PO ONE (09:25)
[2024-05-19] MEDS ORDERED: FUROSEMIDE 40 MG TAB ONE (09:26)
[2024-05-19] MEDS ORDERED: predniSONE 20 MG TAB ONE (09:26)
[2024-05-19] MEDS ORDERED: LACTOBACILLUS ACIDOPHILUS/PECT 1 EACH CAPSULE PO ONE ×2 (09:31→21:47)
[2024-05-19] MEDS ORDERED: HYDROmorphone 0.5 MG/0.5 ML SYRINGE ONE ×3 (09:40→21:49)
[2024-05-19] MEDS ORDERED: HYDROcodone/APAP 5-325MG 1 EACH TAB ONE (09:49)
[2024-05-19] MEDS ORDERED: INSULIN ASPART (NovoLOG) 100 UNIT/ML VIAL SQ ONE ×2 (17:41→21:48)
[2024-05-19] MEDS ORDERED: IPRATROPIUM-ALBUTEROL 3 ML NEB ONE (19:37)
[2024-05-19] MEDS ORDERED: MONTELUKAST 10 MG TAB ONE (21:47)
[2024-05-19] MEDS ORDERED: ALPRAZolam 0.5 MG TAB ONE (21:48)
[2024-05-20] MEDS ORDERED: INSULIN DETEMIR (LEVEMIR) 100 UNIT/ML SYR SQ ONE (00:25)
[2024-05-20] MEDS ORDERED: LACTOBACILLUS ACIDOPHILUS/PECT 1 EACH CAPSULE PO ONE ×2 (09:13→20:57)
[2024-05-20] MEDS ORDERED: POTASSIUM CHLORIDE ER 10 MEQ TAB.ER.PRT PO ONE (09:13)
[2024-05-20] MEDS ORDERED: amLODIPine 5 MG TAB ONE (09:13)
[2024-05-20] MEDS ORDERED: FUROSEMIDE 40 MG TAB ONE (09:14)
[2024-05-20] MEDS ORDERED: HEPARIN SODIUM,PORCINE 5,000 UNIT/ML 1 ML VIAL ONE ×2 (09:14→20:57)
[2024-05-20] MEDS ORDERED: PANTOPRAZOLE 40 MG TABLET PO ONE ×2 (09:14→20:57)
[2024-05-20] MEDS ORDERED: predniSONE 20 MG TAB ONE (09:14)
[2024-05-20] MEDS ORDERED: ESCITALOPRAM 20 MG TAB ONE (09:14)
[2024-05-20] MEDS ORDERED: HYDROcodone/APAP 5-325MG 1 EACH TAB ONE (09:15)
[2024-05-20] MEDS ORDERED: HYDROmorphone 0.5 MG/0.5 ML SYRINGE ONE ×2 (12:07→21:21)
[2024-05-20] MEDS ORDERED: LACTULOSE 20 GM/30 ML CUP ONE ×2 (15:02→20:57)
[2024-05-20] MEDS ORDERED: bisacodyL 10 MG SUPP RECTAL ONE (15:02)
[2024-05-20] MEDS ORDERED: CEFEPIME 2 GM VIAL IVPB ONE ×2 (15:03→20:59)
[2024-05-20] MEDS ORDERED: metroNIDAZOLE 500 MG TAB ONE ×2 (15:04→20:58)
[2024-05-20] MEDS ORDERED: MONTELUKAST 10 MG TAB ONE (20:47)
[2024-05-20] MEDS ORDERED: ALPRAZolam 0.5 MG TAB ONE (20:58)
[2024-05-20] MEDS ORDERED: INSULIN ASPART (NovoLOG) 100 UNIT/ML VIAL SQ ONE (20:59)
[2024-05-20] MEDS ORDERED: LIDOCAINE 5% OINTMENT 50 GM JAR TOPICAL PRN (23:08)
[2024-05-20] MEDS ORDERED: ACETAMINOPHEN TAB 325 MG TAB PO PRN (23:32)
[2024-05-20] MEDS ORDERED: MAGNESIUM HYDROXIDE 2,400 MG/30 ML CUP PO PRN (23:33)
[2024-05-20] MEDS ORDERED: MELATONIN 3 MG TABLET PO PRN (23:33)
[2024-05-20] MEDS ORDERED: NALOXONE 0.4 MG/ML 1 ML VIAL IVP PRN (23:34)
[2024-05-21] MEDS: VANCOMYCIN 750 MG in SODIUM CHLORIDE 0.9% 250 ML IVPB SCH (05:09)
[2024-05-21 05:43] LABS: Glucose,Whole Blood 41 mg/dL (70-110)
[2024-05-21 05:48] LABS: Glucose,Whole Blood 37 mg/dL (70-110)
[2024-05-21] MEDS: DEXTROSE 50% SYRINGE 50 ML IVP PRN (05:50)
[2024-05-21 06:41] LABS: Glucose,Whole Blood 187 mg/dL (70-110)
[2024-05-21] MEDS: INSULIN ASPART (NovoLOG) 100 UNIT/ML VIAL SQ SCH (06:44)
[2024-05-21] MEDS: CEFEPIME 2 GM in SODIUM CHLORIDE 0.9% 100 ML IVPB SCH (06:45)
--- NOTE | 2024-05-21 08:26 | P.PN ---
Subjective Progress Note Date: 05/21/24 Patient's decubitus ulcer wound remained stable. She will continue local wound care. Objective - Vital Signs Vital signs: Vital Signs Temp 98.4 F 05/21/24 07:44 Pulse 88 05/21/24 07:44 Resp 18 05/21/24 07:44 BP 138/67 05/21/24 07:44 Pulse Ox 95 05/21/24 07:44 FiO2 Intake & Output 05/20/24 05/21/24 05/21/24 18:59 06:59 18:59 Weight 45.813 kg - Labs Labs: Abnormal Lab Results - Last 24 Hours (Table) 05/21/24 05/21/24 05/21/24 Range/Units 05:41 05:46 06:39 POC Glucose (mg/dL) 41 L* 37 L* 187 H (70-110) mg/dL
[2024-05-21] MEDS: IPRATROPIUM-ALBUTEROL 3 ML NEB INHALATION SCH (08:31)
[2024-05-21] MEDS: SYMBICORT 160-4.5 MCG INHALER INHALATION SCH (08:31)
[2024-05-21] MEDS: PANTOPRAZOLE 40 MG TABLET PO SCH (09:48)
[2024-05-21] MEDS: LACTOBACILLUS ACIDOPHILUS/PECT 1 EACH CAPSULE PO SCH (09:48)
[2024-05-21] MEDS: HYDROcodone/APAP 5-325MG 1 EACH TAB PO PRN (09:48)
[2024-05-21] MEDS: metroNIDAZOLE 500 MG TAB PO SCH (09:48)
[2024-05-21] MEDS: FUROSEMIDE 40 MG TAB PO SCH (09:48)
[2024-05-21] MEDS: POTASSIUM CHLORIDE ER 10 MEQ TAB.ER.PRT PO SCH (09:48)
[2024-05-21] MEDS: LACTULOSE 20 GM/30 ML CUP PO SCH (09:49)
[2024-05-21] MEDS: amLODIPine 5 MG TAB PO SCH (09:49)
[2024-05-21] MEDS: ARIPiprazole 2 MG TAB PO SCH (09:49)
[2024-05-21] MEDS: ESCITALOPRAM 20 MG TAB PO SCH (09:49)
[2024-05-21] MEDS: predniSONE 20 MG TAB PO SCH (09:49)
[2024-05-21] MEDS: NICOTINE 14MG/24HR PATCH TRANSDERM SCH (09:50)
[2024-05-21] MEDS: HEPARIN SODIUM,PORCINE 5,000 UNIT/ML 1 ML VIAL SQ SCH (09:51)
[2024-05-21 11:56] LABS: Glucose,Whole Blood 251 mg/dL (70-110)
--- NOTE | 2024-05-21 12:04 | P.PN ---
Subjective Progress Note Date: 05/21/24 This is a 64-year-old female who has been at [facility] and followed by Dr. Mcpherson while there. Comes in for an infected sacral ulcer with culture showing MSSA, Klebsiella and Pseudomonas. She has gram positive blood cultures. Also with extensive lower extremity wounds. Patient is continued on a combination of IV cefepime IV vancomycin and oral Flagyl with ID and surgery following closely. Patient has undergone vascular debridement of the sacral wound. She does need a PICC line for outpatient antibiotic therapy. Continues on Santyl and local wound care of the sacrum. CT of the abdomen on the did reveal fecal impaction yesterday patient had received dulcolax and soap suds enema and now she has been moving her bowels. Review of Systems Constitutional: Denied any fatigue denied any fever. Cardio vascular: denied any chest pain, palpitations Gastrointestinal: denied any nausea, vomiting, diarrhea Pulmonary: Denied any shortness of breath cough Neurologic denied any new focal deficits All inpatient medications were reviewed and appropriate changes in these medications as dictated in the interval history and assessment and plan. PHYSICAL EXAMINATION: GENERAL: The patient is alert and oriented x3, not in any acute distress. Well developed, well nourished. HEENT: Pupils are round and equally reacting to light. EOMI. No scleral icterus. No conjunctival pallor. Normocephalic, atraumatic. No pharyngeal erythema. No thyromegaly. CARDIOVASCULAR: S1 and S2 present. No murmurs, rubs, or gallops. PULMONARY: Chest is clear to auscultation, no wheezing or crackles. ABDOMEN: Soft, nontender, nondistended, normoactive bowel sounds. No palpable organomegaly. Having bowel movements now. MUSCULOSKELETAL: No joint swelling or deformity. EXTREMITIES: No cyanosis, clubbing, or pedal edema. NEUROLOGICAL: Gross neurological examination did not reveal any focal deficits. SKIN: No rashes. Stage IV sacral wound bilateral extensive lower extremity wounds currently dressed. 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 -Chronic medical debility and non-weight bearing. -Hx of COPD with no acute exacerbation -Diabetes Mellitus type 2 with hyperglycemia and hypoglycemia -Hx of hypertension -Hyperlipidemia -Hx of PE in the past not currently on oral anticoagulation -Moderate protein calorie malnutrition -Chronic nicotine use GI prophylaxis: IV protonix DVT prophylaxis: Subcu heparin Full Code Plan Continue IV antibiotics Continue local wound care Vascular follow up outpatient and will need medical clearance for leg am putations Continue on bowel regimen Continue accuchecks ACHS and sliding scale insulin had lows down to the 40s this am and will need to hold the levemir monitor trends at this time. Continue oral lasix Continue nicotine patch Repeat blood work in the AM Patient will need PICC line placed. The impression and plan of care has been dictated by Kerri Spencer Nurse Practitioner as directed. Dr. Chance MD I have performed a history and physical examination and medical decision making of this patient, discussed the same with the dictator, and agree with the dictators assessment and plan as written, documented as a scribe. Based on total visit time, I have performed more than 50% of this visit. Objective - Vital Signs Vital signs: Vital Signs Temp 98.4 F 05/21/24 07:44 Pulse 86 05/21/24 08:39 Resp 18 05/21/24 07:44 BP 138/67 05/21/24 07:44 Pulse Ox 95 05/21/24 07:44 FiO2 Intake & Output 05/20/24 05/21/24 05/21/24 18:59 06:59 18:59 Weight 45.813 kg - Labs Labs: Abnormal Lab Results - Last 24 Hours (Table) 05/21/24 05/21/24 05/21/24 Range/Units 05:41 05:46 06:39 POC Glucose (mg/dL) 41 L* 37 L* 187 H (70-110) mg/dL Assessment and Plan Time with Patient: Greater than 30
[2024-05-21] MEDS: VANCOMYCIN TROUGH DUE 1 EACH MISC MISCELLANE ONE (14:17)
[2024-05-21] MEDS: HYDROmorphone 0.5 MG/0.5 ML SYRINGE IVP PRN (15:46)
[2024-05-21 16:46] LABS: Glucose,Whole Blood 397 mg/dL (70-110)
[2024-05-21] MEDS: ALPRAZolam 0.5 MG TAB PO SCH (20:28)
[2024-05-21] MEDS: MONTELUKAST 10 MG TAB PO SCH (20:34)
[2024-05-21] MEDS ORDERED: INSULIN DETEMIR (LEVEMIR) 100 UNIT/ML SYR SQ SCH (21:00)
--- NOTE | 2024-05-21 21:26 | P.PN ---
Subjective Progress Note Date: 05/21/24 Principal diagnosis: Reason for follow-up is sacral pressure ulcer bilateral lower extremity wound and bacteremia Patient is a 64-year-old female with multiple comorbidities initial presentation to the hospital with worsening sacral wound also have a positive blood culture and extensive wound to bilateral lower extremity patient is status post bedside debridement of the sacral wound. On today's evaluation that is 05/21/2024,the patient denies any fever or any chills, patient is breathing comfortably on room air, the patient denies chest pain shortness of breath and no significant cough, patient denies abdominal pain, no nausea vomiting or diarrhea, has been complaining of pain to the sacral wound but no worsening. Patient did have Vanco trough of 11 Objective - Vital Signs Vital signs: Vital Signs Temp 98.4 F 05/21/24 07:44 Pulse 85 05/21/24 12:33 Resp 18 05/21/24 07:44 BP 138/67 05/21/24 07:44 Pulse Ox 95 05/21/24 07:44 FiO2 Intake & Output 05/20/24 05/21/24 05/21/24 18:59 06:59 18:59 Weight 45.813 kg Other: Voiding Method Indwelling Catheter - Exam GENERAL DESCRIPTION: Middle-age female lying in bed in no distress RESPIRATORY SYSTEM: Unlabored breathing , decreased breath sounds at bases HEART: S1 S2 regular rate and rhythm , ABDOMEN: Soft , no tenderness EXTREMITIES: Bilateral leg wounds are currently dressed - Labs Labs: Abnormal Lab Results - Last 24 Hours (Table) 05/21/24 05/21/24 05/21/24 Range/Units 05:41 05:46 06:39 POC Glucose (mg/dL) 41 L* 37 L* 187 H (70-110) mg/dL 05/21/24 Range/Units 11:54 POC Glucose (mg/dL) 251 H (70-110) mg/dL Assessment and Plan (1) Stage IV pressure ulcer of sacral region Current Visit: Yes Status: Acute Code(s): L89.154 - PRESSURE ULCER OF SACRAL REGION, STAGE 4 SNOMED Code(s): 26117952569016 (2) Open wound of both lower extremities Current Visit: Yes Status: Acute Code(s): S81.801A - UNSPECIFIED OPEN WOUND, RIGHT LOWER LEG, INITIAL ENCOUNTER; S81.802A - UNSPECIFIED OPEN WOUND, LEFT LOWER LEG, INITIAL ENCOUNTER SNOMED Code(s): 69463004 (3) Bacteremia Current Visit: Yes Status: Acute Code(s): R78.81 - BACTEREMIA SNOMED Code(s): 7259784 Plan: 1patient with infected sacral pressure ulcer stage IV with a local culture positive for MSSA Pseudomonas and Klebsiella patient is covered with cefepime and Flagyl 2-positive blood culture with gram-positive cocci still waiting for final ID covered with the vancomycin dosing to be adjusted up to keep trough around 15 3-bilateral lower extremity pressure ulcer awaiting surgical debridement and workup for vascular surgery Dictation was produced using [employer] dictation software. please excuse any gramm atical, word or spelling errors. Time with Patient: Less than 30
[2024-05-21 21:27] LABS: Glucose,Whole Blood 359 mg/dL (70-110)
[2024-05-22 06:29] LABS: Glucose,Whole Blood 259 mg/dL (70-110)
[2024-05-22 09:13] LABS: Basophils # (A) 0.13 X 10*3/uL (0.00-0.10); Basophils % (A) 0.9 %; Eosinophils # (A) 0.08 X 10*3/uL (0.04-0.35); Eosinophils % (A) 0.5 %; HGB 9.6 g/dL (12.0-15.0); Lymphocytes # (A) 1.45 X 10*3/uL (0.90-5.00); Lymphocytes % (A) 9.8 %; MCV 93.3 FL (80.0-97.0); Mean Platelet Volume 9.7 FL (9.5-12.2); Monocytes # (A) 0.56 X 10*3/uL (0.20-1.00); Monocytes % (A) 3.8 %; NRBC Per 100 WBC 0 X 10*3/uL (0.00-0.01); Neutrophils # (A) 12.25 X 10*3/uL (1.80-7.70); Platelet Count 543 X 10*3/uL (140-440); RBC 3.43 X 10*6/uL (4.10-5.20); RDW 18.2 % (11.5-14.5); WBC 14.77 X 10*3/uL (4.50-10.00)
[2024-05-22 09:19] LABS: BUN/Creat Ratio 41.67 Ratio (12.00-20.00); Blood Urea Nitrogen 12.5 mg/dL (9.0-27.0); Carbon Dioxide 23.4 mmol/L (21.6-31.8); Chloride 103 mmol/L (96-109); Glucose 276 mg/dL (70-110); Magnesium 1.9 mg/dL (1.5-2.4); Potassium 3.7 mmol/L (3.5-5.5); Sodium 136 mmol/L (135-145)
--- NOTE | 2024-05-22 10:50 | P.PN ---
Subjective Progress Note Date: 05/22/24 CHIEF COMPLAINT: Sacral decubitus ulcer HISTORY OF PRESENT ILLNESS: Patient is status post bedside debridement of sacral decubitus ulcer. She is receiving local wound care. Wound care dressing was changed yesterday. Patient does report pain in the sacral area. She is tolerating diet. Afebrile. WBC 14.7 Hgb 9.6 PHYSICAL EXAM: VITAL SIGNS: Reviewed. GENERAL: no acute distress. ABDOMEN: Soft. Nondistended. Nontender. SKIN: Sacral area dressing clean dry and intact NEUROLOGIC: Alert and oriented. Cranial nerves II through XII grossly intact. ASSESSMENT: 1. Sacral decubitus ulcer status post bedside debridement 2. Bacteremia PLAN: -Continue antibiotics per ID service -Continue local wound care -Patient prescription for PICC line placement today -Continue offloading Physician Regional Climate Change Analyst note has been reviewed by physician. Signing provider agrees with the documented findings, assessment, and plan of care. I have personally seen and examined the patient, reviewed the SPECIAL SERVICES SUPERVISOR /PAs history, exam and MDM and agree with the assessment and plan as written. Based on total visit time, I have performed more than 50% of the visit. As above: Patient laying on her right hand side. Per the patient and the family she has been offloading better recently. Her nutritional input has been im proved as well. Family bring protein shakes from home. Infectious disease plans noted. Sacral wound examined with nursing staff. No further necrotic tissue requiring debridement at this time. No purulent drainage or erythema noted. Only minimal tenderness. Continue local wound care. Consider reattempt at wound VAC therapy at some point in the future per infectious disease. Will sign off at this time. Please reconsult if needed. Objective - Vital Signs Vital signs: Vital Signs Temp 97.3 F L 05/22/24 08:00 Pulse 84 05/22/24 08:21 Resp 17 05/22/24 08:00 BP 164/86 05/22/24 08:00 Pulse Ox 98 05/22/24 08:00 FiO2 Intake & Output 05/21/24 05/22/24 05/22/24 18:59 06:59 18:59 Intake Total 350 Output Total 600 400 Balance -250 -400 Intake: Intake, IV Titration 350 Amount Cefepime 2 gm In Sodium 100 Chloride 0.9% 100 ml @ 25 mls/hr IVPB Q8H [facility] Rx#: [id number] Vancomycin 750 mg In 250 Sodium Chloride 0.9% 250 ml @ 125 mls/hr IVPB Q12H [facility] Rx#:[id number] Output: Urine 600 400 Other: Voiding Method Indwelling Catheter Indwelling Catheter # Bowel Movements 1 1 - Labs CBC & Chem 7: 05/22/24 04:54 05/22/24 04:54 Labs: Abnormal Lab Results - Last 24 Hours (Table) 05/21/24 05/21/24 05/21/24 Range/Units 11:54 16:44 21:25 WBC (4.50-10.00) X 10*3/uL RBC (4.10-5.20) X 10*6/uL Hgb (12.0-15.0) g/dL Hct (37.2-46.3) % MCHC (32.0-37.0) g/dL RDW (11.5-14.5) % Plt Count (140-440) X 10*3/uL Immature Gran # (0.00-0.04) X 10*3/uL Neutrophils # (1.80-7.70) X 10*3/uL Basophils # (0.00-0.10) X 10*3/uL Creatinine (0.6-1.5) mg/dL BUN/Creatinine Ratio (12.00-20.00) Ratio Glucose (70-110) mg/dL POC Glucose (mg/dL) 251 H 397 H 359 H (70-110) mg/dL Calcium (8.7-10.3) mg/dL 05/22/24 05/22/24 05/22/24 Range/Units 04:54 04:54 06:28 WBC 14.77 H (4.50-10.00) X 10*3/uL RBC 3.43 L (4.10-5.20) X 10*6/uL Hgb 9.6 L (12.0-15.0) g/dL Hct 32.0 L (37.2-46.3) % MCHC 30.0 L (32.0-37.0) g/dL RDW 18.2 H (11.5-14.5) % Plt Count 543 H (140-440) X 10*3/uL Immature Gran # 0.30 H (0.00-0.04) X 10*3/uL Neutrophils # 12.25 H (1.80-7.70) X 10*3/uL Basophils # 0.13 H (0.00-0.10) X 10*3/uL Creatinine 0.3 L (0.6-1.5) mg/dL BUN/Creatinine Ratio 41.67 H (12.00-20.00) Ratio Glucose 276 H (70-110) mg/dL POC Glucose (mg/dL) 259 H (70-110) mg/dL Calcium 8.0 L (8.7-10.3) mg/dL
[2024-05-22] MEDS: IPRATROPIUM-ALBUTEROL 3 ML NEB ONE ×3 (11:29→12:23)
[2024-05-22 12:00] LABS: Glucose,Whole Blood 414 mg/dL (70-110)
[2024-05-22] MEDS: PANTOPRAZOLE 40 MG TABLET PO ONE ×3 (12:05→12:23)
[2024-05-22] MEDS: HYDROcodone/APAP 5-325MG 1 EACH TAB ONE (12:05)
[2024-05-22] MEDS: POTASSIUM CHLORIDE ER 10 MEQ TAB.ER.PRT PO ONE ×2 (12:05→12:23)
[2024-05-22] MEDS: LACTULOSE 20 GM/30 ML CUP ONE ×3 (12:05→12:07)
[2024-05-22] MEDS: HYDROmorphone 0.5 MG/0.5 ML SYRINGE ONE ×5 (12:06→12:23)
[2024-05-22] MEDS: ALPRAZolam 0.5 MG TAB ONE (12:07)
--- NOTE | 2024-05-22 14:18 | P.PN ---
Subjective Progress Note Date: 05/22/24 This is a 64-year-old female who has been at [facility] and followed by Dr. Mcpherson while there. Comes in for an infected sacral ulcer with culture showing MSSA, Klebsiella and Pseudomonas. She has gram positive blood cultures. Also with extensive lower extremity wounds. Patient is continued on a combination of IV cefepime IV vancomycin and oral Flagyl with ID and surgery following closely. Patient has undergone vascular debridement of the sacral wound. She does need a PICC line for outpatient antibiotic therapy. Continues on Santyl and local wound care of the sacrum. CT of the abdomen on the did reveal fecal impaction yesterday patient had received dulcolax and soap suds enema and now she has been moving her bowels. 05/22/2024 Patient seen and evaluated in follow-up today with infectious disease and general surgery following. Patient maintained on antibiotics per infectious disease and has been awaiting repeat blood culture results to be finalized to determine discharge antibiotics. Patient was evaluated by vascular surgery last week and recommend outpatient follow-up if the bilateral heel and foot wounds are not healing and suggest possibly bilateral AKA in the outpatient setting. Family is concerned about her heel wounds not being addressed and how well they transport her back and forth from vascular surgery clinic. Plan is for patient to return to [facility] and currently awaiting cultures and IV antibiotic recommendations per ID. Patient is afebrile, denies chest pain or shortness of breath and reports the breathing treatments are helping. Patient is on bowel regimen and will continue as patient is passing her bowels. Blood sugars are mildly elevated although dropped drastically overnight and will transition long- acting to daily and continue with sliding scale. Encouraged oral intake and will need PT/OT therapy evaluation as well as case management on the case as patient plans on returning to [facility]. Review of Systems Constitutional: Denied any fatigue denied any fever. Cardio vascular: denied any chest pain, palpitations Gastrointestinal: denied any nausea, vomiting, diarrhea, patient reports is passing bowels Pulmonary: Denied any shortness of breath cough Neurologic denied any new focal deficits, reports continued diffuse weakness All inpatient medications were reviewed and appropriate changes in these medications as dictated in the interval history and assessment and plan. PHYSICAL EXAMINATION: GENERAL: The patient is alert and oriented x3, not in any acute distress. Well developed, thin built, elderly appearing HEENT: Pupils are round and equally reacting to light. EOMI. No scleral icterus. No conjunctival pallor. Normocephalic, atraumatic. No pharyngeal erythema. No thyromegaly. CARDIOVASCULAR: S1 and S2 present. No murmurs, rubs, or gallops. PULMONARY: Diminished breath sounds bilaterally otherwise chest is clear to auscultation, no wheezing or crackles. ABDOMEN: Soft, nontender, nondistended, normoactive bowel sounds. No palpable organomegaly. Having bowel movements now. Thin MUSCULOSKELETAL: No joint swelling or deformity. EXTREMITIES: No cyanosis, clubbing, or pedal edema. Offloading boots noted bilaterally to lower heels NEUROLOGICAL: Gross neurological examination did not reveal any focal deficits. Diffusely weak SKIN: No rashes. Stage IV sacral wound bilateral extensive lower extremity wounds currently dressed. 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 Improved, patient having bowel movements now -Chronic medical debility and non-weight bearing. -Hx of COPD with no acute exacerbation -Diabetes Mellitus type 2 with hyperglycemia and hypoglycemia -Hx of hypertension -Hyperlipidemia -Hx of PE in the past not currently on oral anticoagulation -Moderate protein calorie malnutrition -Chronic nicotine use GI prophylaxis: IV protonix DVT prophylaxis: Subcu heparin Full Code Plan Continue IV antibiotics per ID recommendations and awaiting repeat blood cultures that were taken and ordered on downtime and attempting to contact [place] lab multiple times for cultures results and unsuccessful, will continue to call for updates Continue local wound care Vascular has evaluated the patient and recommends follow up outpatient and will need medical clearance for leg amputations, family is concerned on getting her back and forth to appointments Continue on bowel regimen as patient is now having bowel movements. Continue accuchecks ACHS and sliding scale and will adjust insulins as patient has been having elevated blood sugars during the day and extremely low blood sugars overnight. Continue oral lasix Continue nicotine patch Repeat blood work in the AM, white count remains elevated although slightly improved. Patient remains afebrile and will follow-up on repeat labs in the morning Patient will need PICC line placed once cultures have been finalized and further discussion with infectious disease. Plan is for patient to return to [facility] on discharge The impression and plan of care has been dictated by Maria Teresa German, Nurse Practitioner as directed. Dr. Chance MD I have performed a history and physical examination and medical decision making of this patient, discussed the same with the dictator, and agree with the dictators assessment and plan as written, documented as a scribe. Based on total visit time, I have performed more than 50% of this visit. Objective - Vital Signs Vital signs: Vital Signs Temp 97.3 F L 05/22/24 08:00 Pulse 84 05/22/24 08:21 Resp 17 05/22/24 08:00 BP 164/86 05/22/24 08:00 Pulse Ox 98 05/22/24 08:00 FiO2 Intake & Output 05/21/24 05/22/24 05/22/24 18:59 06:59 18:59 Intake Total 350 Output Total 600 400 Balance -250 -400 Intake: Intake, IV Titration 350 Amount Cefepime 2 gm In Sodium 100 Chloride 0.9% 100 ml @ 25 mls/hr IVPB Q8H [facility] Rx#: [id number] Vancomycin 750 mg In 250 Sodium Chloride 0.9% 250 ml @ 125 mls/hr IVPB Q12H [facility] Rx#:[id number] Output: Urine 600 400 Other: Voiding Method Indwelling Catheter Indwelling Catheter # Bowel Movements 1 1 - Labs CBC & Chem 7: 05/22/24 04:54 05/22/24 04:54 Labs: Abnormal Lab Results - Last 24 Hours (Table) 05/21/24 05/21/24 05/21/24 Range/Units 11:54 16:44 21:25 WBC (4.50-10.00) X 10*3/uL RBC (4.10-5.20) X 10*6/uL Hgb (12.0-15.0) g/dL Hct (37.2-46.3) % MCHC (32.0-37.0) g/dL RDW (11.5-14.5) % Plt Count (140-440) X 10*3/uL Immature Gran # (0.00-0.04) X 10*3/uL Neutrophils # (1.80-7.70) X 10*3/uL Basophils # (0.00-0.10) X 10*3/uL Creatinine (0.6-1.5) mg/dL BUN/Creatinine Ratio (12.00-20.00) Ratio Glucose (70-110) mg/dL POC Glucose (mg/dL) 251 H 397 H 359 H (70-110) mg/dL Calcium (8.7-10.3) mg/dL 05/22/24 05/22/24 05/22/24 Range/Units 04:54 04:54 06:28 WBC 14.77 H (4.50-10.00) X 10*3/uL RBC 3.43 L (4.10-5.20) X 10*6/uL Hgb 9.6 L (12.0-15.0) g/dL Hct 32.0 L (37.2-46.3) % MCHC 30.0 L (32.0-37.0) g/dL RDW 18.2 H (11.5-14.5) % Plt Count 543 H (140-440) X 10*3/uL Immature Gran # 0.30 H (0.00-0.04) X 10*3/uL Neutrophils # 12.25 H (1.80-7.70) X 10*3/uL Basophils # 0.13 H (0.00-0.10) X 10*3/uL Creatinine 0.3 L (0.6-1.5) mg/dL BUN/Creatinine Ratio 41.67 H (12.00-20.00) Ratio Glucose 276 H (70-110) mg/dL POC Glucose (mg/dL) 259 H (70-110) mg/dL Calcium 8.0 L (8.7-10.3) mg/dL
[2024-05-22] MEDS ORDERED: LACTULOSE 20 GM/30 ML CUP PO PRN (16:09)
[2024-05-22 18:22] LABS: Glucose,Whole Blood 481 mg/dL (70-110)
[2024-05-22] MEDS: INSULIN DETEMIR (LEVEMIR) 100 UNIT/ML SYR SQ STA (18:37)
[2024-05-22 21:17] LABS: Glucose,Whole Blood 395 mg/dL (70-110)
[2024-05-23 05:38] LABS: Glucose,Whole Blood 72 mg/dL (70-110)
[2024-05-23] MEDS: INSULIN DETEMIR (LEVEMIR) 100 UNIT/ML SYR SQ SCH (08:51)
[2024-05-23] MEDS: ALPRAZolam 0.25 MG TAB PO PRN (09:07)
[2024-05-23 09:16] LABS: Basophils # (A) 0.11 X 10*3/uL (0.00-0.10); Basophils % (A) 0.7 %; Eosinophils # (A) 0.08 X 10*3/uL (0.04-0.35); Eosinophils % (A) 0.5 %; HCT 29.3 % (37.2-46.3); HGB 9.2 g/dL (12.0-15.0); Lymphocytes # (A) 1.74 X 10*3/uL (0.90-5.00); Lymphocytes % (A) 10.8 %; MCH 28.5 pg (27.0-32.0); MCHC 31.4 g/dL (32.0-37.0); MCV 90.7 FL (80.0-97.0); Mean Platelet Volume 9.9 FL (9.5-12.2); Monocytes # (A) 0.65 X 10*3/uL (0.20-1.00); NRBC Per 100 WBC 0 X 10*3/uL (0.00-0.01); Neutrophils # (A) 13.27 X 10*3/uL (1.80-7.70); Neutrophils % (A) 82.8 %; Platelet Count 524 X 10*3/uL (140-440); RBC 3.23 X 10*6/uL (4.10-5.20); WBC 16.05 X 10*3/uL (4.50-10.00)
[2024-05-23 09:56] LABS: Magnesium 1.9 mg/dL (1.5-2.4)
[2024-05-23 10:17] LABS: ALT 17 U/L (8-44); AST 14 U/L (13-35); Albumin 2.9 g/dL (3.8-4.9); Albumin/Globulin Ratio 1.81 Ratio (1.60-3.17); Alkaline Phosphatase 234 U/L (41-126); Blood Urea Nitrogen 18.7 mg/dL (9.0-27.0); Calcium 8.6 mg/dL (8.7-10.3); Chloride 104 mmol/L (96-109); Globulin 1.6 g/dL (1.6-3.3); Glucose 95 mg/dL (70-110); Potassium 3.7 mmol/L (3.5-5.5); Sodium 139 mmol/L (135-145); Total Bilirubin <0.2 mg/dL (0.3-1.2); Total Protein 4.5 g/dL (6.2-8.2)
[2024-05-23 11:51] LABS: Glucose,Whole Blood 206 mg/dL (70-110)
--- NOTE | 2024-05-23 13:22 | P.PN ---
Subjective Progress Note Date: 05/23/24 Principal diagnosis: Bilateral lower extremity wounds. Patient seen and examined. Bilateral lower extremity wounds are getting worse according to the patient and draining more. She denies any fevers, chills, chest pain or shortness of breath. Objective - Vital Signs Vital signs: Vital Signs Temp 97.4 F L 05/23/24 07:32 Pulse 84 05/23/24 08:40 Resp 17 05/23/24 07:32 BP 143/76 05/23/24 07:32 Pulse Ox 100 05/23/24 07:32 FiO2 Intake & Output 05/22/24 05/23/24 05/23/24 18:59 06:59 18:59 Output Total 2700 550 Balance -2700 -550 Output: Urine 2700 550 Other: Voiding Method Indwelling Catheter Indwelling Catheter - Exam Bilateral lower extremity posterior calf and lateral calf wounds with fibrinous tissue, purulent drainage noted. Tenderness to palpation noted. Ischemic changes noted to the edges with exposed tendon. Nonpalpable DP or PT pulse. Slow capillary refill - Constitutional General appearance: Present: thin - EENT Eyes: Present: PERRLA - Labs CBC & Chem 7: 05/23/24 03:23 05/23/24 03:23 Labs: Abnormal Lab Results - Last 24 Hours (Table) 05/22/24 05/22/24 05/23/24 Range/Units 18:20 21:15 03:23 WBC 16.05 H (4.50-10.00) X 10*3/uL RBC 3.23 L (4.10-5.20) X 10*6/uL Hgb 9.2 L (12.0-15.0) g/dL Hct 29.3 L (37.2-46.3) % MCHC 31.4 L (32.0-37.0) g/dL RDW 18.0 H (11.5-14.5) % Plt Count 524 H (140-440) X 10*3/uL Immature Gran # 0.20 H (0.00-0.04) X 10*3/uL Neutrophils # 13.27 H (1.80-7.70) X 10*3/uL Basophils # 0.11 H (0.00-0.10) X 10*3/uL Creatinine (0.6-1.5) mg/dL BUN/Creatinine Ratio (12.00-20.00) Ratio POC Glucose (mg/dL) 481 H 395 H (70-110) mg/dL Calcium (8.7-10.3) mg/dL Total Bilirubin (0.3-1.2) mg/dL Alkaline Phosphatase (41-126) U/L Total Protein (6.2-8.2) g/dL Albumin (3.8-4.9) g/dL 05/23/24 05/23/24 Range/Units 03:23 11:49 WBC (4.50-10.00) X 10*3/uL RBC (4.10-5.20) X 10*6/uL Hgb (12.0-15.0) g/dL Hct (37.2-46.3) % MCHC (32.0-37.0) g/dL RDW (11.5-14.5) % Plt Count (140-440) X 10*3/uL Immature Gran # (0.00-0.04) X 10*3/uL Neutrophils # (1.80-7.70) X 10*3/uL Basophils # (0.00-0.10) X 10*3/uL Creatinine 0.2 L (0.6-1.5) mg/dL BUN/Creatinine Ratio 93.50 H (12.00-20.00) Ratio POC Glucose (mg/dL) 206 H (70-110) mg/dL Calcium 8.6 L (8.7-10.3) mg/dL Total Bilirubin <0.2 L (0.3-1.2) mg/dL Alkaline Phosphatase 234 H (41-126) U/L Total Protein 4.5 L (6.2-8.2) g/dL Albumin 2.9 L (3.8-4.9) g/dL Assessment and Plan Assessment: Bilateral lower extremity chronic pressure wounds Malnutrition Lower extremity weakness Sacral decubitus ulcer Plan: After discussion with the patient she will need formal debridement in the operating room which will be scheduled tomorrow with deep culture to be obtained.
[2024-05-23] MEDS: VANCOMYCIN 750 MG in SODIUM CHLORIDE 0.9% 250 ML IVPB SCH (13:34)
--- NOTE | 2024-05-23 13:35 | P.PN ---
Subjective Progress Note Date: 05/22/24 Principal diagnosis: Reason for follow-up is sacral pressure ulcer bilateral lower extremity wound and bacteremia Patient is a 64-year-old female with multiple comorbidities initial presentation to the hospital with worsening sacral wound also have a positive blood culture and extensive wound to bilateral lower extremity patient is status post bedside debridement of the sacral wound. On today's evaluation that is 05/22/2024,the patient remains to be afebrile, patient is on room air not requiring supplemental oxygen and denies any shortness of breath no chest pain or cough.Patient denies having any nausea or vomiting, no abdominal pain and no diarrhea has been reported, denies any worsening pain to bilateral lower extremities. Patient white count is 14.77, creatinine 0.3 Objective - Vital Signs Vital signs: Vital Signs Temp 97.3 F L 05/22/24 08:00 Pulse 90 05/22/24 11:31 Resp 17 05/22/24 08:00 BP 164/86 05/22/24 08:00 Pulse Ox 98 05/22/24 08:00 FiO2 Intake & Output 05/21/24 05/22/24 05/22/24 18:59 06:59 18:59 Intake Total 350 Output Total 600 400 Balance -250 -400 Intake: Intake, IV Titration 350 Amount Cefepime 2 gm In Sodium 100 Chloride 0.9% 100 ml @ 25 mls/hr IVPB Q8H KARINA Rx#: [id number] Vancomycin 750 mg In 250 Sodium Chloride 0.9% 250 ml @ 125 mls/hr IVPB Q12H KARINA Rx#:[id number] Output: Urine 600 400 Other: Voiding Method Indwelling Catheter Indwelling Catheter # Bowel Movements 1 1 - Exam GENERAL DESCRIPTION: Middle-age female lying in bed in no distress RESPIRATORY SYSTEM: Unlabored breathing , decreased breath sounds at bases HEART: S1 S2 regular rate and rhythm , ABDOMEN: Soft , no tenderness EXTREMITIES: Bilateral leg wounds are currently dressed - Labs CBC & Chem 7: 05/23/24 03:23 05/23/24 03:23 Labs: Abnormal Lab Results - Last 24 Hours (Table) 05/21/24 05/21/24 05/22/24 Range/Units 16:44 21:25 04:54 WBC 14.77 H (4.50-10.00) X 10*3/uL RBC 3.43 L (4.10-5.20) X 10*6/uL Hgb 9.6 L (12.0-15.0) g/dL Hct 32.0 L (37.2-46.3) % MCHC 30.0 L (32.0-37.0) g/dL RDW 18.2 H (11.5-14.5) % Plt Count 543 H (140-440) X 10*3/uL Immature Gran # 0.30 H (0.00-0.04) X 10*3/uL Neutrophils # 12.25 H (1.80-7.70) X 10*3/uL Basophils # 0.13 H (0.00-0.10) X 10*3/uL Creatinine (0.6-1.5) mg/dL BUN/Creatinine Ratio (12.00-20.00) Ratio Glucose (70-110) mg/dL POC Glucose (mg/dL) 397 H 359 H (70-110) mg/dL Calcium (8.7-10.3) mg/dL 05/22/24 05/22/24 05/22/24 Range/Units 04:54 06:28 11:58 WBC (4.50-10.00) X 10*3/uL RBC (4.10-5.20) X 10*6/uL Hgb (12.0-15.0) g/dL Hct (37.2-46.3) % MCHC (32.0-37.0) g/dL RDW (11.5-14.5) % Plt Count (140-440) X 10*3/uL Immature Gran # (0.00-0.04) X 10*3/uL Neutrophils # (1.80-7.70) X 10*3/uL Basophils # (0.00-0.10) X 10*3/uL Creatinine 0.3 L (0.6-1.5) mg/dL BUN/Creatinine Ratio 41.67 H (12.00-20.00) Ratio Glucose 276 H (70-110) mg/dL POC Glucose (mg/dL) 259 H 414 H (70-110) mg/dL Calcium 8.0 L (8.7-10.3) mg/dL Assessment and Plan (1) Stage IV pressure ulcer of sacral region Current Visit: Yes Status: Acute Code(s): L89.154 - PRESSURE ULCER OF SACRAL REGION, STAGE 4 SNOMED Code(s): 12019565149131 (2) Open wound of both lower extremities Current Visit: Yes Status: Acute Code(s): S81.801A - UNSPECIFIED OPEN WOUND, RIGHT LOWER LEG, INITIAL ENCOUNTER; S81.802A - UNSPECIFIED OPEN WOUND, LEFT LOWER LEG, INITIAL ENCOUNTER SNOMED Code(s): 22240638 (3) Bacteremia Current Visit: Yes Status: Acute Code(s): R78.81 - BACTEREMIA SNOMED Code(s): 3847093 Plan: 1patient with infected sacral pressure ulcer stage IV with a local culture positive for MSSA Pseudomonas and Klebsiella patient is covered with cefepime and Flagyl 2-positive blood culture with gram-positive cocci still waiting for final ID covered with the vancomycin dosing to be adjusted up to keep trough around 15 3-bilateral lower extremity pressure ulcer await reevaluation by vascular surgery as the patient needs to be surgical debridement and deep culture Dictation was produced using [employer] dictation software. please excuse any grammatical, word or spelling errors. Time with Patient: Less than 30
--- NOTE | 2024-05-23 13:35 | P.PN ---
Subjective Progress Note Date: 05/23/24 Principal diagnosis: Reason for follow-up is sacral pressure ulcer bilateral lower extremity wound and bacteremia Patient is a 64-year-old female with multiple comorbidities initial presentation to the hospital with worsening sacral wound also have a positive blood culture and extensive wound to bilateral lower extremity patient is status post bedside debridement of the sacral wound. On today's evaluation that is 05/23/2024, the patient continues to be afebrile, the patient is on room air and breathing comfortably, the Pt denies having any chest pain or cough, the patient denies having any abdominal pain no vomiting or any diarrhea has been reported by the nursing staff, still complaining of pain to the sacral and lower extremity wound but denies any worsening. Patient white count is up to 16.05, creatinine 0.2 Objective - Vital Signs Vital signs: Vital Signs Temp 97.4 F L 05/23/24 07:32 Pulse 84 05/23/24 08:40 Resp 17 05/23/24 07:32 BP 143/76 05/23/24 07:32 Pulse Ox 100 05/23/24 07:32 FiO2 Intake & Output 05/22/24 05/23/24 05/23/24 18:59 06:59 18:59 Output Total 2700 550 Balance -2700 -550 Output: Urine 2700 550 Other: Voiding Method Indwelling Catheter Indwelling Catheter - Exam GENERAL DESCRIPTION: Middle-age female lying in bed in no distress RESPIRATORY SYSTEM: Unlabored breathing , decreased breath sounds at bases HEART: S1 S2 regular rate and rhythm , ABDOMEN: Soft , no tenderness EXTREMITIES: Bilateral leg wounds are currently dressed - Labs CBC & Chem 7: 05/23/24 03:23 05/23/24 03:23 Labs: Abnormal Lab Results - Last 24 Hours (Table) 05/22/24 05/22/24 05/23/24 Range/Units 18:20 21:15 03:23 WBC 16.05 H (4.50-10.00) X 10*3/uL RBC 3.23 L (4.10-5.20) X 10*6/uL Hgb 9.2 L (12.0-15.0) g/dL Hct 29.3 L (37.2-46.3) % MCHC 31.4 L (32.0-37.0) g/dL RDW 18.0 H (11.5-14.5) % Plt Count 524 H (140-440) X 10*3/uL Immature Gran # 0.20 H (0.00-0.04) X 10*3/uL Neutrophils # 13.27 H (1.80-7.70) X 10*3/uL Basophils # 0.11 H (0.00-0.10) X 10*3/uL Creatinine (0.6-1.5) mg/dL BUN/Creatinine Ratio (12.00-20.00) Ratio POC Glucose (mg/dL) 481 H 395 H (70-110) mg/dL Calcium (8.7-10.3) mg/dL Total Bilirubin (0.3-1.2) mg/dL Alkaline Phosphatase (41-126) U/L Total Protein (6.2-8.2) g/dL Albumin (3.8-4.9) g/dL 05/23/24 05/23/24 Range/Units 03:23 11:49 WBC (4.50-10.00) X 10*3/uL RBC (4.10-5.20) X 10*6/uL Hgb (12.0-15.0) g/dL Hct (37.2-46.3) % MCHC (32.0-37.0) g/dL RDW (11.5-14.5) % Plt Count (140-440) X 10*3/uL Immature Gran # (0.00-0.04) X 10*3/uL Neutrophils # (1.80-7.70) X 10*3/uL Basophils # (0.00-0.10) X 10*3/uL Creatinine 0.2 L (0.6-1.5) mg/dL BUN/Creatinine Ratio 93.50 H (12.00-20.00) Ratio POC Glucose (mg/dL) 206 H (70-110) mg/dL Calcium 8.6 L (8.7-10.3) mg/dL Total Bilirubin <0.2 L (0.3-1.2) mg/dL Alkaline Phosphatase 234 H (41-126) U/L Total Protein 4.5 L (6.2-8.2) g/dL Albumin 2.9 L (3.8-4.9) g/dL Assessment and Plan (1) Stage IV pressure ulcer of sacral region Current Visit: Yes Status: Acute Code(s): L89.154 - PRESSURE ULCER OF SACRAL REGION, STAGE 4 SNOMED Code(s): 65865170764493 (2) Open wound of both lower extremities Current Visit: Yes Status: Acute Code(s): S81.801A - UNSPECIFIED OPEN WOUND, RIGHT LOWER LEG, INITIAL ENCOUNTER; S81.802A - UNSPECIFIED OPEN WOUND, LEFT LOWER LEG, INITIAL ENCOUNTER SNOMED Code(s): 50582148 (3) Bacteremia Current Visit: Yes Status: Acute Code(s): R78.81 - BACTEREMIA SNOMED Code(s): 1764025 Plan: 1patient with infected sacral pressure ulcer stage IV with a local culture positive for MSSA Pseudomonas and Klebsiella patient is covered with cefepime and Flagyl 2-positive blood culture with gram-positive cocci still waiting for final ID covered with the vancomycin dosing to be adjusted up to keep trough around 15 3-bilateral lower extremity pressure ulcer patient has been eval by vascular surgery planning for surgical debridement in the OR tomorrow at which time the culture should be obtained question concern answered Dictation was produced using [employer] dictation software. please excuse any grammatical, word or spelling errors. Time with Patient: Less than 30
[2024-05-23 16:44] LABS: Glucose,Whole Blood 434 mg/dL (70-110)
[2024-05-23 20:36] LABS: Glucose,Whole Blood 278 mg/dL (70-110)
[2024-05-24 05:44] LABS: Glucose,Whole Blood 241 mg/dL (70-110)
--- NOTE | 2024-05-24 06:26 | P.PN ---
Subjective Progress Note Date: 05/24/24 This is a 64-year-old female who has been at [facility] and followed by Dr. Mcpherson while there. Comes in for an infected sacral ulcer with culture showing MSSA, Klebsiella and Pseudomonas. She has gram positive blood cultures. Also with extensive lower extremity wounds. Patient is continued on a combination of IV cefepime IV vancomycin and oral Flagyl with ID and surgery following closely. Patient has undergone vascular debridement of the sacral wound. She does need a PICC line for outpatient antibiotic therapy. Continues on Santyl and local wound care of the sacrum. CT of the abdomen on the did reveal fecal impaction yesterday patient had received dulcolax and soap suds enema and now she has been moving her bowels. 05/22/2024 Patient seen and evaluated in follow-up today with infectious disease and general surgery following. Patient maintained on antibiotics per infectious disease and has been awaiting repeat blood culture results to be finalized to determine discharge antibiotics. Patient was evaluated by vascular surgery last week and recommend outpatient follow-up if the bilateral heel and foot wounds are not healing and suggest possibly bilateral AKA in the outpatient setting. Family is concerned about her heel wounds not being addressed and how well they transport her back and forth from vascular surgery clinic. Plan is for patient to return to [facility] and currently awaiting cultures and IV antibiotic recommendations per ID. Patient is afebrile, denies chest pain or shortness of breath and reports the breathing treatments are helping. Patient is on bowel regimen and will continue as patient is passing her bowels. Blood sugars are mildly elevated although dropped drastically overnight and will transition long- acting to daily and continue with sliding scale. Encouraged oral intake and will need PT/OT therapy evaluation as well as case management on the case as patient plans on returning to [facility]. 05/23/2024 Patient is seen in follow-up today with family at the bedside and discussed further with Dr. Horn's group from vascular surgery and plans for possible bilateral lower extremity debridement and hopeful for deep tissue cultures on Wednesday. Patient will be n.p.o. and recommend monitoring sugars closely. Blood sugars have been elevated today and insulins have been adjusted. Patient is afebrile with no reports of chest pain or shortness of breath. Patient does have a PICC line and will be continued on IV antibiotics. Infectious diseases following. Review of Systems Constitutional: Denied any fatigue denied any fever. Cardio vascular: denied any chest pain, palpitations Gastrointestinal: denied any nausea, vomiting, diarrhea, patient reports is passing bowels Pulmonary: Denied any shortness of breath cough Neurologic denied any new focal deficits, reports continued diffuse weakness, reports continued discomfort of the lower extremities All inpatient medications were reviewed and appropriate changes in these medications as dictated in the interval history and assessment and plan. PHYSICAL EXAMINATION: GENERAL: The patient is alert and oriented x3, not in any acute distress. Well developed, thin built, elderly appearing HEENT: Pupils are round and equally reacting to light. EOMI. No scleral icterus. No conjunctival pallor. Normocephalic, atraumatic. No pharyngeal erythema. No thyromegaly. CARDIOVASCULAR: S1 and S2 present. No murmurs, rubs, or gallops. PULMONARY: Diminished breath sounds bilaterally otherwise chest is clear to auscultation, no wheezing or crackles. ABDOMEN: Soft, nontender, nondistended, normoactive bowel sounds. No palpable organomegaly. Having bowel movements now. Thin MUSCULOSKELETAL: No joint swelling or deformity. EXTREMITIES: No cyanosis, clubbing, or pedal edema. Offloading boots noted bilaterally to lower heels NEUROLOGICAL: Gross neurological examination did not reveal any focal deficits. Diffusely weak SKIN: No rashes. Stage IV sacral wound bilateral extensive lower extremity wounds currently dressed. There is some necrotic tissue and sloughing noted Assessment -Infected stage IV sacral pressure injury status post surgical debridement and continues on santyl local wound care -Leukocytosis, possibly secondary to above -Bilateral lower extremity wound on the calfs down to the tendon may require amputation however vascular would like patient to be opitimized medically and plan for amputations outpatient if patient and family decide to go this route. Patient will undergo debridement of bilateral lower extremities with vascular surgery on 05/24/2024 -Gram positive cocci bacteremia, repeat cultures have been negative -Severe peripheral arterial disease; Bilateral SFA occlusion, severe QUILLER HAND, iliac stenosis and severe intrapopliteal stenosis left greater than right -Fecal impaction as noted on CT imaging. Improved, patient having bowel movements now -Chronic medical debility and non-weight bearing. -Hx of COPD with no acute exacerbation -Diabetes Mellitus type 2 with hyperglycemia and hypoglycemia -Hx of hypertension -Hyperlipidemia -Hx of PE in the past not currently on oral anticoagulation -Moderate protein calorie malnutrition -Chronic nicotine use GI prophylaxis: IV protonix DVT prophylaxis: Subcu heparin Full Code Plan Continue IV antibiotics per ID recommendations and repeat blood cultures per micro lab have remained negative for 5 days Continue local wound care Vascular has evaluated the patient and recommends follow up outpatient and will need medical clearance for leg amputations, family is concerned on getting her back and forth to appointments. Discussed further with Dr. Horn and plans for surgical debridement with deep tissue cultures on 05/24/2024. N.p.o. at midnight Continue on bowel regimen as patient is now having bowel movements. Continue accuchecks ACHS and sliding scale and will adjust insulins as patient has been having elevated blood sugars during the day and extremely low blood sugars overnight. Continue oral lasix Continue nicotine patch Repeat blood work in the AM, white count remains elevated Patient remains afebrile and will follow-up on repeat labs in the morning Patient has received a PICC line and will be awaiting deep cultures from lower extremities to determine discharge antibiotics Plan is for patient to return to [facility] on discharge The impression and plan of care has been dictated by Maria Teresa German, Nurse Practitioner as directed. Dr. Chance MD I have performed a history and physical examination and medical decision making of this patient, discussed the same with the dictator, and agree with the dictators assessment and plan as written, documented as a scribe. Based on total visit time, I have performed more than 50% of this visit. Objective - Vital Signs Vital signs: Vital Signs Temp 98.2 F 05/24/24 01:50 Pulse 86 05/24/24 01:50 Resp 20 05/24/24 01:50 BP 134/79 05/24/24 01:50 Pulse Ox 98 05/24/24 01:50 FiO2 Intake & Output 05/23/24 05/23/24 05/24/24 06:59 18:59 06:59 Output Total 550 1100 550 Balance -550 -1100 -550 Output: Urine 550 1100 550 Other: Voiding Method Indwelling Catheter Indwelling Catheter Indwelling Catheter - Labs CBC & Chem 7: 05/23/24 03:23 05/23/24 03:23 Labs: Abnormal Lab Results - Last 24 Hours (Table) 05/23/24 05/23/24 05/23/24 Range/Units 03:23 03:23 11:49 WBC 16.05 H (4.50-10.00) X 10*3/uL RBC 3.23 L (4.10-5.20) X 10*6/uL Hgb 9.2 L (12.0-15.0) g/dL Hct 29.3 L (37.2-46.3) % MCHC 31.4 L (32.0-37.0) g/dL RDW 18.0 H (11.5-14.5) % Plt Count 524 H (140-440) X 10*3/uL Immature Gran # 0.20 H (0.00-0.04) X 10*3/uL Neutrophils # 13.27 H (1.80-7.70) X 10*3/uL Basophils # 0.11 H (0.00-0.10) X 10*3/uL Creatinine 0.2 L (0.6-1.5) mg/dL BUN/Creatinine Ratio 93.50 H (12.00-20.00) Ratio POC Glucose (mg/dL) 206 H (70-110) mg/dL Calcium 8.6 L (8.7-10.3) mg/dL Total Bilirubin <0.2 L (0.3-1.2) mg/dL Alkaline Phosphatase 234 H (41-126) U/L Total Protein 4.5 L (6.2-8.2) g/dL Albumin 2.9 L (3.8-4.9) g/dL 05/23/24 05/23/24 05/24/24 Range/Units 16:43 20:35 05:40 WBC (4.50-10.00) X 10*3/uL RBC (4.10-5.20) X 10*6/uL Hgb (12.0-15.0) g/dL Hct (37.2-46.3) % MCHC (32.0-37.0) g/dL RDW (11.5-14.5) % Plt Count (140-440) X 10*3/uL Immature Gran # (0.00-0.04) X 10*3/uL Neutrophils # (1.80-7.70) X 10*3/uL Basophils # (0.00-0.10) X 10*3/uL Creatinine (0.6-1.5) mg/dL BUN/Creatinine Ratio (12.00-20.00) Ratio POC Glucose (mg/dL) 434 H 278 H 241 H (70-110) mg/dL Calcium (8.7-10.3) mg/dL Total Bilirubin (0.3-1.2) mg/dL Alkaline Phosphatase (41-126) U/L Total Protein (6.2-8.2) g/dL Albumin (3.8-4.9) g/dL
[2024-05-24 12:05] LABS: Glucose,Whole Blood 83 mg/dL (70-110)
--- NOTE | 2024-05-24 12:36 | P.PN ---
Subjective Progress Note Date: 05/24/24 Principal diagnosis: Reason for follow-up is sacral pressure ulcer bilateral lower extremity wound and bacteremia Patient is a 64-year-old female with multiple comorbidities initial presentation to the hospital with worsening sacral wound also have a positive blood culture and extensive wound to bilateral lower extremity patient is status post bedside debridement of the sacral wound. On today's evaluation that is 05/24/2024, Patient is afebrile patient is currently on room air and denies having any shortness of breath, the patient denies any chest pain or cough, the patient denies any nausea vomiting did not have any abdominal pain and no diarrhea, denies any worsening pain to bilateral lower extremity or second 1. No new labs were obtained today Objective - Vital Signs Vital signs: Vital Signs Temp 98.2 F 05/24/24 07:10 Pulse 72 05/24/24 11:42 Resp 16 05/24/24 11:42 BP 161/84 05/24/24 07:10 Pulse Ox 98 05/24/24 07:10 FiO2 Intake & Output 05/23/24 05/24/24 05/24/24 18:59 06:59 18:59 Output Total 1100 550 Balance -1100 -550 Output: Urine 1100 550 Other: Voiding Method Indwelling Catheter Indwelling Catheter - Exam GENERAL DESCRIPTION: Middle-age female lying in bed in no distress RESPIRATORY SYSTEM: Unlabored breathing , decreased breath sounds at bases HEART: S1 S2 regular rate and rhythm , ABDOMEN: Soft , no tenderness EXTREMITIES: Bilateral leg wounds are currently dressed - Labs CBC & Chem 7: 05/23/24 03:23 05/23/24 03:23 Labs: Abnormal Lab Results - Last 24 Hours (Table) 05/23/24 05/23/24 05/24/24 Range/Units 16:43 20:35 05:40 POC Glucose (mg/dL) 434 H 278 H 241 H (70-110) mg/dL Assessment and Plan (1) Stage IV pressure ulcer of sacral region Current Visit: Yes Status: Acute Code(s): L89.154 - PRESSURE ULCER OF SACRAL REGION, STAGE 4 SNOMED Code(s): 02571449446566 (2) Open wound of both lower extremities Current Visit: Yes Status: Acute Code(s): S81.801A - UNSPECIFIED OPEN WOUND, RIGHT LOWER LEG, INITIAL ENCOUNTER; S81.802A - UNSPECIFIED OPEN WOUND, LEFT LOWER LEG, INITIAL ENCOUNTER SNOMED Code(s): 71555455 (3) Bacteremia Current Visit: Yes Status: Acute Code(s): R78.81 - BACTEREMIA SNOMED Code(s): 5752889 Plan: 1patient with infected sacral pressure ulcer stage IV with a local culture positive for MSSA Pseudomonas and Klebsiella patient is covered with cefepime and Flagyl 2-positive blood culture with gram-positive cocci still waiting for final ID covered with the vancomycin dosing to be adjusted up to keep trough around 15 3-bilateral lower extremity pressure ulcer patient currently waiting for surgical debridement in the OR this afternoon culture should be obtained to guide further antibiotic therapy Son at the bedside questions were answered Dictation was produced using [employer] dictation software. please excuse any grammatical, word or spelling errors. Time with Patient: Less than 30
[2024-05-24 14:28] VITALS: BMI 15.3
[2024-05-24] MEDS: IV FLUID CONTINUATION 1,000 ML IV ONE ×2 (15:25→15:32)
[2024-05-24 15:42] LABS: Glucose,Whole Blood 47 mg/dL (70-110)
[2024-05-24] MEDS: DEXTROSE 50% SYRINGE 50 ML IVP PRN (15:45)
[2024-05-24] MEDS: ONDANSETRON 4 MG/2 ML VIAL IVP STA (17:02)
[2024-05-24] MEDS ORDERED: MIDAZOLAM 2 MG/2 ML VIAL ONE (17:05)
[2024-05-24] MEDS ORDERED: fentaNYL (PF) 50 MCG/ML 2 ML AMP ONE (17:05)
[2024-05-24] MEDS ORDERED: LIDOCAINE 1% INJ 10MG/ML (20 ML MDV) ONE (17:05)
[2024-05-24] MEDS ORDERED: PROPOFOL 10 MG/ML 20 ML VIAL IV ONE (17:05)
--- NOTE | 2024-05-24 18:19 | P.OP ---
Date of Procedure: 05/24/24 Description of Procedure: Preoperative diagnosis: Bilateral lower extremity wounds Postoperative diagnosis: Same Procedure: Sharp excisional debridement bilateral lower extremity wound Left leg 14 x 5 x 0.4 cm to bone Right posterior proximal 14.3 x 3 x 0.3 cm to bone Right posterior distal 2.5 x 2 x 0.3 cm to subcutaneous tissue Right anterior chavez 3 x 0.7 x 0.2 cm to subcutaneous tissue Right anterior foot 1.5 x 1.2 x 0.2 cm to subcutaneous tissue Surgeon: Citlalli Horn D.O. EBL: 3 cc IV fluids: See records Urine output: See records Drains: None Complications: None immediately apparent Condition: Stable to recovery Operative indication and findings: Patient is a 64-year-old female with severe back issues who is nonambulatory who has sustained issues with pressure ulcerations at her posterior legs who is requiring surgical debridement. Risks and benefits were discussed. She seemingly understood and is willing to proceed. Procedure in detail: Patient was brought to the operative suite and placed in supine position. She was intubated and then transferred to prone position. The bilateral lower extremities were prepped and draped in usual sterile fashion. A preprocedural timeout was performed, all parties were in agreement. Using a blade, the largest one of the left lower extremity was debrided. It became apparent that the debridement carried down to the level of the fibula. All devitalized tissue was sharply excised until healthy appearing tissue. A culture was taken. Attention was then turned to the right lower extremity and sharp excisional debridement was performed similarly at the posterior proximal leg with the measurements as above debriding to the level of the fibula as well. The right posterior distal wound was debrided to the level of subcutaneous tissue with healthy appearing granulation tissue. The anterior chavez and foot were also debrided sharply with a scalpel with the measurements as above. Dressings were placed. The patient tolerated the procedure well and was transferred to recovery in stable condition.
[2024-05-24] MEDS: ONDANSETRON 4 MG/2 ML VIAL IM STA (20:45)
[2024-05-24 21:19] LABS: Glucose,Whole Blood 144 mg/dL (70-110)
[2024-05-24] MEDS ORDERED: HYDROmorphone 0.5 MG/0.5 ML SYRINGE ONE (23:59)
[2024-05-24] MEDS ORDERED: ALPRAZolam 0.5 MG TAB ONE (23:59)
[2024-05-24] MEDS ORDERED: PANTOPRAZOLE 40 MG TABLET PO ONE (23:59)
[2024-05-24] MEDS ORDERED: metroNIDAZOLE 500 MG TAB ONE (23:59)
[2024-05-24] MEDS ORDERED: MONTELUKAST 10 MG TAB ONE (23:59)
[2024-05-24] MEDS ORDERED: LACTOBACILLUS ACIDOPHILUS/PECT 1 EACH CAPSULE PO ONE (23:59)
[2024-05-24] MEDS ORDERED: HEPARIN SODIUM,PORCINE 5,000 UNIT/ML 1 ML VIAL ONE (23:59)
[2024-05-25] MEDS: VANCOMYCIN TROUGH DUE 1 EACH MISC MISCELLANE ONE (05:03)
[2024-05-25 05:47] LABS: Glucose,Whole Blood 323 mg/dL (70-110)
[2024-05-25 07:57] LABS: African American GFR (CKD) >90 (>60 ml/min/1.73 sqM); Non-African American GFR(CKD) >90 (>60 ml/min/1.73 sqM)
[2024-05-25 08:33] LABS: Anion Gap 1 mmol/L; Blood Urea Nitrogen 13 mg/dL (7-17); Calcium 8.3 mg/dL (8.4-10.2); Carbon Dioxide 27 mmol/L (22-30); Chloride 105 mmol/L (98-107); Glucose 302 mg/dL (74-99); Magnesium 1.8 mg/dL (1.6-2.3); Potassium 3.6 mmol/L (3.5-5.1); Sodium 133 mmol/L (137-145)
--- NOTE | 2024-05-25 10:05 | P.PN ---
Subjective Progress Note Date: 05/24/24 This is a 64-year-old female who has been at [facility] and followed by Dr. Mcpherson while there. Comes in for an infected sacral ulcer with culture showing MSSA, Klebsiella and Pseudomonas. She has gram positive blood cultures. Also with extensive lower extremity wounds. Patient is continued on a combination of IV cefepime IV vancomycin and oral Flagyl with ID and surgery following closely. Patient has undergone vascular debridement of the sacral wound. She does need a PICC line for outpatient antibiotic therapy. Continues on Santyl and local wound care of the sacrum. CT of the abdomen on the did reveal fecal impaction yesterday patient had received dulcolax and soap suds enema and now she has been moving her bowels. 05/22/2024 Patient seen and evaluated in follow-up today with infectious disease and general surgery following. Patient maintained on antibiotics per infectious disease and has been awaiting repeat blood culture results to be finalized to determine discharge antibiotics. Patient was evaluated by vascular surgery last week and recommend outpatient follow-up if the bilateral heel and foot wounds are not healing and suggest possibly bilateral AKA in the outpatient setting. Family is concerned about her heel wounds not being addressed and how well they transport her back and forth from vascular surgery clinic. Plan is for patient to return to [facility] and currently awaiting cultures and IV antibiotic recommendations per ID. Patient is afebrile, denies chest pain or shortness of breath and reports the breathing treatments are helping. Patient is on bowel regimen and will continue as patient is passing her bowels. Blood sugars are mildly elevated although dropped drastically overnight and will transition long- acting to daily and continue with sliding scale. Encouraged oral intake and will need PT/OT therapy evaluation as well as case management on the case as patient plans on returning to [facility]. 05/23/2024 Patient is seen in follow-up today with family at the bedside and discussed further with Dr. Horn's group from vascular surgery and plans for possible bilateral lower extremity debridement and hopeful for deep tissue cultures on Wednesday. Patient will be n.p.o. and recommend monitoring sugars closely. Blood sugars have been elevated today and insulins have been adjusted. Patient is afebrile with no reports of chest pain or shortness of breath. Patient does have a PICC line and will be continued on IV antibiotics. Infectious diseases following. 05/24/2024 Patient is seen in follow-up today made n.p.o. as patient is scheduled to undergo debridement with Dr. Horn of bilateral lower [place]avez area and will await deep cultures. This was discussed with Dr. Horn prior to surgical intervention. Long discussion was had about overall prognosis and probable still need for bilateral AKA down the line although patient unwilling at this time and willing to proceed with cultures. Patient does have a PICC line with infectious disease following and will await deep cultures to determine discharge antibiotics. Plan is for patient to return to [facility] on discharge. Continue monitoring sugars closely as they are extremely uncontrolled. Review of Systems Constitutional: Denied any fatigue denied any fever. Cardio vascular: denied any chest pain, palpitations Gastrointestinal: denied any nausea, vomiting, diarrhea, patient reports is passing bowels Pulmonary: Denied any shortness of breath cough Neurologic denied any new focal deficits, reports continued diffuse weakness, reports continued discomfort of the lower extremities All inpatient medications were reviewed and appropriate changes in these medications as dictated in the interval history and assessment and plan. PHYSICAL EXAMINATION: GENERAL: The patient is alert and oriented x3, not in any acute distress. Well developed, thin built, elderly appearing HEENT: Pupils are round and equally reacting to light. EOMI. No scleral icterus. No conjunctival pallor. Normocephalic, atraumatic. No pharyngeal erythema. No thyromegaly. CARDIOVASCULAR: S1 and S2 present. No murmurs, rubs, or gallops. PULMONARY: Diminished breath sounds bilaterally otherwise chest is clear to auscultation, no wheezing or crackles. ABDOMEN: Soft, nontender, nondistended, normoactive bowel sounds. No palpable organomegaly. Having bowel movements now. Thin MUSCULOSKELETAL: No joint swelling or deformity. EXTREMITIES: No cyanosis, clubbing, or pedal edema. Offloading boots noted bi laterally to lower heels NEUROLOGICAL: Gross neurological examination did not reveal any focal deficits. Diffusely weak SKIN: No rashes. Stage IV sacral wound bilateral extensive lower extremity woun ds currently dressed. There is some necrotic tissue and sloughing noted Assessment -Infected stage IV sacral pressure injury status post surgical debridement and continues on santyl local wound care -Leukocytosis, possibly secondary to above -Bilateral lower extremity wound on the calfs down to the tendon may require amputation however vascular would like patient to be opitimized medically and plan for amputations outpatient if patient and family decide to go this route. Patient will undergo debridement of bilateral lower extremities with vascular surgery today 05/24/2024 -Gram positive cocci bacteremia, repeat cultures have been negative -Severe peripheral arterial disease; Bilateral SFA occlusion, severe [employer], iliac stenosis and severe intrapopliteal stenosis left greater than right -Fecal impaction as noted on CT imaging. Improved, patient having bowel movements now -Chronic medical debility and non-weight bearing. -Hx of COPD with no acute exacerbation -Diabetes Mellitus type 2 with hyperglycemia and hypoglycemia -Hx of hypertension -Hyperlipidemia -Hx of PE in the past not currently on oral anticoagulation -Moderate protein calorie malnutrition -Chronic nicotine use GI prophylaxis: IV protonix DVT prophylaxis: Subcu heparin Full Code Plan Continue IV antibiotics per ID recommendations and repeat blood cultures per micro lab have remained negative for 5 days Continue local wound care Vascular has evaluated the patient and recommends follow up outpatient and will need medical clearance for leg amputations, family is concerned on getting her back and forth to appointments. Discussed further with Dr. Horn and plans for surgical debridement with deep tissue cultures today 05/24/2024. N.p.o. currently and will resume diet once cleared by surgery Continue on bowel regimen as patient is now having bowel movements. Continue accuchecks ACHS and sliding scale and will adjust insulins as patient has been having elevated blood sugars during the day and extremely low blood sugars overnight. Continue oral lasix Continue nicotine patch Repeat blood work in the AM, white count remains elevated Patient remains afebrile and will follow-up on repeat labs in the morning Patient has received a PICC line and will be awaiting deep cultures from lower extremities to determine discharge antibiotics Plan is for patient to return to [facility] on discharge The impression and plan of care has been dictated by Maria Teresa German, Nurse Practitioner as directed. Dr. Chance MD I have performed a history and physical examination and medical decision making of this patient, discussed the same with the dictator, and agree with the dictators assessment and plan as written, documented as a scribe. Based on total visit time, I have performed more than 50% of this visit. Objective - Vital Signs Vital signs: Vital Signs Temp 98.2 F 05/24/24 07:10 Pulse 72 05/24/24 08:37 Resp 16 05/24/24 08:37 BP 161/84 05/24/24 07:10 Pulse Ox 98 05/24/24 07:10 FiO2 Intake & Output 05/23/24 05/24/24 05/24/24 18:59 06:59 18:59 Output Total 1100 550 Balance -1100 -550 Output: Urine 1100 550 Other: Voiding Method Indwelling Catheter Indwelling Catheter - Labs CBC & Chem 7: 05/23/24 03:23 05/25/24 04:45 Labs: Abnormal Lab Results - Last 24 Hours (Table) 05/23/24 05/23/24 05/23/24 Range/Units 11:49 16:43 20:35 POC Glucose (mg/dL) 206 H 434 H 278 H (70-110) mg/dL 05/24/24 Range/Units 05:40 POC Glucose (mg/dL) 241 H (70-110) mg/dL
[2024-05-25 11:01] LABS: Basophils # (A) 0.08 X 10*3/uL (0.00-0.10); Basophils % (A) 0.5 %; Eosinophils # (A) 0.04 X 10*3/uL (0.04-0.35); Eosinophils % (A) 0.3 %; HCT 32.4 % (37.2-46.3); Lymphocytes # (A) 1.25 X 10*3/uL (0.90-5.00); Lymphocytes % (A) 8.2 %; MCH 28.4 pg (27.0-32.0); MCHC 30.9 g/dL (32.0-37.0); Mean Platelet Volume 9.8 FL (9.5-12.2); Monocytes # (A) 0.51 X 10*3/uL (0.20-1.00); Monocytes % (A) 3.3 %; NRBC Per 100 WBC 0 X 10*3/uL (0.00-0.01); Neutrophils # (A) 13.22 X 10*3/uL (1.80-7.70); Neutrophils % (A) 86.5 %; Platelet Count 527 X 10*3/uL (140-440); RBC 3.52 X 10*6/uL (4.10-5.20); RDW 18.4 % (11.5-14.5); WBC 15.29 X 10*3/uL (4.50-10.00)
[2024-05-25 11:44] LABS: Glucose,Whole Blood 144 mg/dL (70-110)
[2024-05-25] MEDS: VANCOMYCIN 500 MG in SODIUM CHLORIDE 0.9% 250 ML IVPB SCH (14:56)
--- NOTE | 2024-05-25 15:28 | P.PN ---
Subjective Progress Note Date: 05/25/24 Postop day #1 status post lower extremity debridement. Objective - Vital Signs Vital signs: Vital Signs Temp 98.1 F 05/25/24 07:08 Pulse 80 05/25/24 12:54 Resp 19 05/25/24 07:08 BP 154/85 05/25/24 07:08 Pulse Ox 99 05/25/24 07:08 FiO2 Intake & Output 05/24/24 05/25/24 05/25/24 18:59 06:59 18:59 Intake Total 150 0 Output Total 3 1325 700 Balance 147 -1325 -700 Weight 45.813 kg Intake: IV 150 0 Output: Urine 1325 700 Estimated Blood Loss 3 Other: Voiding Method Indwelling Catheter Indwelling Catheter - Exam Patient is awake and alert, cooperative no apparent distress. She indicates that her legs feel well and offers no complaints of discomfort. Dressings are left intact. - Labs CBC & Chem 7: 05/25/24 04:45 05/25/24 04:45 Labs: Abnormal Lab Results - Last 24 Hours (Table) 05/24/24 05/24/24 05/25/24 Range/Units 15:40 21:17 04:45 WBC (4.50-10.00) X 10*3/uL RBC (4.10-5.20) X 10*6/uL Hgb (12.0-15.0) g/dL Hct (37.2-46.3) % MCHC (32.0-37.0) g/dL RDW (11.5-14.5) % Plt Count (140-440) X 10*3/uL Immature Gran # (0.00-0.04) X 10*3/uL Neutrophils # (1.80-7.70) X 10*3/uL Sodium 133 L (137-145) mmol/L Creatinine 0.26 L (0.52-1.04) mg/dL Glucose 302 H (74-99) mg/dL POC Glucose (mg/dL) 47 L* 144 H (70-110) mg/dL Calcium 8.3 L (8.4-10.2) mg/dL 05/25/24 05/25/24 05/25/24 Range/Units 04:45 05:45 11:43 WBC 15.29 H (4.50-10.00) X 10*3/uL RBC 3.52 L (4.10-5.20) X 10*6/uL Hgb 10.0 L (12.0-15.0) g/dL Hct 32.4 L (37.2-46.3) % MCHC 30.9 L (32.0-37.0) g/dL RDW 18.4 H (11.5-14.5) % Plt Count 527 H (140-440) X 10*3/uL Immature Gran # 0.19 H (0.00-0.04) X 10*3/uL Neutrophils # 13.22 H (1.80-7.70) X 10*3/uL Sodium (137-145) mmol/L Creatinine (0.52-1.04) mg/dL Glucose (74-99) mg/dL POC Glucose (mg/dL) 323 H 144 H (70-110) mg/dL Calcium (8.4-10.2) mg/dL Microbiology - Last 24 Hours (Table) 05/24/24 17:55 Gram Stain - Preliminary Leg - Right 05/24/24 17:50 Gram Stain - Preliminary Leg - Left Assessment and Plan Assessment: Status post lower extremity debridement. Plan: 1: Continue current medical care. 2: Dressings to be removed in 24 hours. Time with Patient: Less than 30
--- NOTE | 2024-05-25 15:32 | P.PN ---
Subjective Progress Note Date: 05/25/24 Principal diagnosis: Reason for follow-up is sacral pressure ulcer bilateral lower extremity wound and bacteremia Patient is a 64-year-old female with multiple comorbidities initial presentation to the hospital with worsening sacral wound also have a positive blood culture and extensive wound to bilateral lower extremity patient is status post bedside debridement of the sacral wound.Patient is status post sharp excisional debridement of bilateral lower extremity wound and deep cultures completed on 05/24/2024 On today's evaluation that is 05/25/2024, patient has been afebrile, patient is breathing comfortably and is currently on room air, patient denies having any significant cough no chest pain shortness of breath, patient denies nausea vomiting or diarrhea and no abdominal pain and denies any worsening pain to bilateral lower extremity wound. Patient white count is 15.29, creatinine 0.26 local cultures pending Objective - Vital Signs Vital signs: Vital Signs Temp 98.1 F 05/25/24 07:08 Pulse 80 05/25/24 12:54 Resp 19 05/25/24 07:08 BP 154/85 05/25/24 07:08 Pulse Ox 99 05/25/24 07:08 FiO2 Intake & Output 05/24/24 05/25/24 05/25/24 18:59 06:59 18:59 Intake Total 150 0 Output Total 3 1325 700 Balance 147 -1325 -700 Weight 45.813 kg Intake: IV 150 0 Output: Urine 1325 700 Estimated Blood Loss 3 Other: Voiding Method Indwelling Catheter Indwelling Catheter - Exam GENERAL DESCRIPTION: Middle-age female lying in bed in no distress RESPIRATORY SYSTEM: Unlabored breathing , decreased breath sounds at bases HEART: S1 S2 regular rate and rhythm , ABDOMEN: Soft , no tenderness EXTREMITIES: Bilateral leg wounds are currently dressed - Labs CBC & Chem 7: 05/25/24 04:45 05/25/24 04:45 Labs: Abnormal Lab Results - Last 24 Hours (Table) 05/24/24 05/24/24 05/25/24 Range/Units 15:40 21:17 04:45 WBC (4.50-10.00) X 10*3/uL RBC (4.10-5.20) X 10*6/uL Hgb (12.0-15.0) g/dL Hct (37.2-46.3) % MCHC (32.0-37.0) g/dL RDW (11.5-14.5) % Plt Count (140-440) X 10*3/uL Immature Gran # (0.00-0.04) X 10*3/uL Neutrophils # (1.80-7.70) X 10*3/uL Sodium 133 L (137-145) mmol/L Creatinine 0.26 L (0.52-1.04) mg/dL Glucose 302 H (74-99) mg/dL POC Glucose (mg/dL) 47 L* 144 H (70-110) mg/dL Calcium 8.3 L (8.4-10.2) mg/dL 05/25/24 05/25/24 05/25/24 Range/Units 04:45 05:45 11:43 WBC 15.29 H (4.50-10.00) X 10*3/uL RBC 3.52 L (4.10-5.20) X 10*6/uL Hgb 10.0 L (12.0-15.0) g/dL Hct 32.4 L (37.2-46.3) % MCHC 30.9 L (32.0-37.0) g/dL RDW 18.4 H (11.5-14.5) % Plt Count 527 H (140-440) X 10*3/uL Immature Gran # 0.19 H (0.00-0.04) X 10*3/uL Neutrophils # 13.22 H (1.80-7.70) X 10*3/uL Sodium (137-145) mmol/L Creatinine (0.52-1.04) mg/dL Glucose (74-99) mg/dL POC Glucose (mg/dL) 323 H 144 H (70-110) mg/dL Calcium (8.4-10.2) mg/dL Microbiology - Last 24 Hours (Table) 05/24/24 17:55 Gram Stain - Preliminary Leg - Right 05/24/24 17:50 Gram Stain - Preliminary Leg - Left Assessment and Plan (1) Stage IV pressure ulcer of sacral region Current Visit: Yes Status: Acute Code(s): L89.154 - PRESSURE ULCER OF SACRAL REGION, STAGE 4 SNOMED Code(s): 54271287642270 (2) Open wound of both lower extremities Current Visit: Yes Status: Acute Code(s): S81.801A - UNSPECIFIED OPEN WOUND, RIGHT LOWER LEG, INITIAL ENCOUNTER; S81.802A - UNSPECIFIED OPEN WOUND, LEFT LOWER LEG, INITIAL ENCOUNTER SNOMED Code(s): 37824697 (3) Bacteremia Current Visit: Yes Status: Acute Code(s): R78.81 - BACTEREMIA SNOMED Code(s): 4650773 Plan: 1patient with infected sacral pressure ulcer stage IV with a local culture positive for MSSA Pseudomonas and Klebsiella patient is covered with cefepime and Flagyl 2-positive blood culture with gram-positive cocci still waiting for final ID covered with the vancomycin dosing to be adjusted up to keep trough around 15 3-bilateral lower extremity pressure ulcer patient is status post surgical debridement and cultures currently pending, patient is covered with vancomycin cefepime and Flagyl pending finalization of the local culture to determine discharge antibiotics Family at the bedside questions were answered Dictation was produced using [employer] dictation software. please excuse any grammatical, word or spelling errors. Time with Patient: Less than 30
[2024-05-25 16:49] LABS: Glucose,Whole Blood 175 mg/dL (70-110)
[2024-05-25 20:20] LABS: Glucose,Whole Blood 318 mg/dL (70-110)
[2024-05-25] MEDS: INSULIN ASPART (NovoLOG) 100 UNIT/ML VIAL SQ SCH (20:26)
[2024-05-26 04:51] LABS: African American GFR (CKD) >90 (>60 ml/min/1.73 sqM); Non-African American GFR(CKD) >90 (>60 ml/min/1.73 sqM)
[2024-05-26 06:11] LABS: Glucose,Whole Blood 404 mg/dL (70-110)
--- NOTE | 2024-05-26 06:12 | P.PN ---
Subjective Progress Note Date: 05/25/24 This is a 64-year-old female who has been at [facility] and followed by Dr. Mcpherson while there. Comes in for an infected sacral ulcer with culture showing MSSA, Klebsiella and Pseudomonas. She has gram positive blood cultures. Also with extensive lower extremity wounds. Patient is continued on a combination of IV cefepime IV vancomycin and oral Flagyl with ID and surgery following closely. Patient has undergone vascular debridement of the sacral wound. She does need a PICC line for outpatient antibiotic therapy. Continues on Santyl and local wound care of the sacrum. CT of the abdomen on the did reveal fecal impaction yesterday patient had received dulcolax and soap suds enema and now she has been moving her bowels. 05/22/2024 Patient seen and evaluated in follow-up today with infectious disease and general surgery following. Patient maintained on antibiotics per infectious disease and has been awaiting repeat blood culture results to be finalized to determine discharge antibiotics. Patient was evaluated by vascular surgery last week and recommend outpatient follow-up if the bilateral heel and foot wounds are not healing and suggest possibly bilateral AKA in the outpatient setting. Family is concerned about her heel wounds not being addressed and how well they transport her back and forth from vascular surgery clinic. Plan is for patient to return to [facility] and currently awaiting cultures and IV antibiotic recommendations per ID. Patient is afebrile, denies chest pain or shortness of breath and reports the breathing treatments are helping. Patient is on bowel regimen and will continue as patient is passing her bowels. Blood sugars are mildly elevated although dropped drastically overnight and will transition long- acting to daily and continue with sliding scale. Encouraged oral intake and will need PT/OT therapy evaluation as well as case management on the case as patient plans on returning to [facility]. 05/23/2024 Patient is seen in follow-up today with family at the bedside and discussed further with Dr. Horn's group from vascular surgery and plans for possible bilateral lower extremity debridement and hopeful for deep tissue cultures on Wednesday. Patient will be n.p.o. and recommend monitoring sugars closely. Blood sugars have been elevated today and insulins have been adjusted. Patient is afebrile with no reports of chest pain or shortness of breath. Patient does have a PICC line and will be continued on IV antibiotics. Infectious diseases following. 05/24/2024 Patient is seen in follow-up today made n.p.o. as patient is scheduled to undergo debridement with Dr. Horn of bilateral lower chavez area and will await deep cultures. This was discussed with Dr. Horn prior to surgical intervention. Long discussion was had about overall prognosis and probable still need for bilateral AKA down the line although patient unwilling at this time and willing to proceed with cultures. Patient does have a PICC line with infectious disease following and will await deep cultures to determine discharge antibiotics. Plan is for patient to return to [facility] on discharge. Continue monitoring sugars closely as they are extremely uncontrolled. 05/25/2024 Patient is seen this morning status post debridement of bilateral lower extremity shins with Dr. Horn. Awaiting cultures to determine discharge antibiotics and patient is maintained on antibiotics per ID recommendations with a PICC line. Plan will be for her to return to [facility] with antibiotic therapy and wound care. Patient's blood sugars have been up and down and will continue current regimen and adjust as needed. Patient is not compliant with diet and diabetic choices. Patient is afebrile and white count mildly trending down and will continue current regimen. Recommend frequent position changes and offloading of the sacral area as patient continues to report severe pain. Review of Systems Constitutional: Denied any fatigue denied any fever. Cardio vascular: denied any chest pain, palpitations Gastrointestinal: denied any nausea, vomiting, diarrhea, patient reports is passing bowels Pulmonary: Denied any shortness of breath cough Neurologic denied any new focal deficits, reports continued diffuse weakness, reports continued discomfort of the lower extremities All inpatient medications were reviewed and appropriate changes in these medications as dictated in the interval history and assessment and plan. PHYSICAL EXAMINATION: GENERAL: The patient is sleeping but easily arousable, alert and oriented x3, not in any acute distress. Well developed, thin built, elderly appearing, cachectic HEENT: Pupils are round and equally reacting to light. EOMI. No scleral icterus. No conjunctival pallor. Normocephalic, atraumatic. No pharyngeal erythema. No thyromegaly. CARDIOVASCULAR: S1 and S2 present. No murmurs, rubs, or gallops. PULMONARY: Diminished breath sounds bilaterally otherwise chest is clear to auscultation, no wheezing or crackles. ABDOMEN: Soft, nontender, nondistended, normoactive bowel sounds. No palpable organomegaly. Having bowel movements now. Thin MUSCULOSKELETAL: No joint swelling or deformity. EXTREMITIES: No cyanosis, clubbing, or pedal edema. Offloading boots noted bilaterally to lower heels NEUROLOGICAL: Gross neurological examination did not reveal any focal deficits. Diffusely weak SKIN: No rashes. Stage IV sacral wound bilateral extensive lower extremity wounds currently dressed. There is some necrotic tissue and sloughing noted, surgical dressings are dry and intact of bilateral lower chavez Assessment -Infected stage IV sacral pressure injury status post surgical debridement and continues on santyl local wound care -Leukocytosis, possibly secondary to above, trending down -Bilateral lower extremity wound on the calfs down to the tendon may require amputation however vascular would like patient to be opitimized medically and plan for amputations outpatient if patient and family decide to go this route. 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 Improved, patient having bowel movements now -Chronic medical debility and non-weight bearing. -Hx of COPD with no acute exacerbation -Diabetes Mellitus type 2 with hyperglycemia and hypoglycemia -Hx of hypertension -Hyperlipidemia -Hx of PE in the past not currently on oral anticoagulation -Moderate protein calorie malnutrition -Chronic nicotine use GI prophylaxis: IV protonix DVT prophylaxis: Subcu heparin Full Code Plan Continue IV antibiotics per ID recommendations and repeat blood cultures per micro lab have remained negative for 5 days Continue local wound care Vascular has evaluated the patient and recommends follow up outpatient and will need medical clearance for leg amputations, family is concerned on getting her back and forth to appointments. Patient is status post surgical debridement with deep tissue cultures on 05/24/2024. Currently awaiting cultures Continue on bowel regimen as patient is now having bowel movements. Continue accuchecks ACHS and sliding scale and will adjust insulins as patient has been having elevated blood sugars during the day and extremely low blood sugars overnight. Continue oral lasix Continue nicotine patch Repeat blood work in the AM, white count remains elevated Patient remains afebrile and will follow-up on repeat labs in the morning Patient has received a PICC line and will be awaiting deep cultures from lower extremities to determine discharge antibiotics Plan is for patient to return to [facility] on discharge The impression and plan of care has been dictated by Maria Teresa German Nurse Practitioner as directed. Dr. Chance MD I have performed a history and physical examination and medical decision making of this patient, discussed the same with the dictator, and agree with the dictators assessment and plan as written, documented as a scribe. Based on total visit time, I have performed more than 50% of this visit. Objective - Vital Signs Vital signs: Vital Signs Temp 98.1 F 05/25/24 07:08 Pulse 72 05/25/24 09:20 Resp 19 05/25/24 07:08 BP 154/85 05/25/24 07:08 Pulse Ox 99 05/25/24 07:08 FiO2 Intake & Output 05/24/24 05/25/24 05/25/24 18:59 06:59 18:59 Intake Total 150 0 Output Total 3 1325 Balance 147 -1325 Weight 45.813 kg Intake: IV 150 0 Output: Urine 1325 Estimated Blood Loss 3 Other: Voiding Method Indwelling Catheter Indwelling Catheter - Labs CBC & Chem 7: 05/25/24 04:45 05/26/24 04:31 Labs: Abnormal Lab Results - Last 24 Hours (Table) 05/24/24 05/24/24 05/25/24 Range/Units 15:40 21:17 04:45 Sodium 133 L (137-145) mmol/L Creatinine 0.26 L (0.52-1.04) mg/dL Glucose 302 H (74-99) mg/dL POC Glucose (mg/dL) 47 L* 144 H (70-110) mg/dL Calcium 8.3 L (8.4-10.2) mg/dL 05/25/24 Range/Units 05:45 Sodium (137-145) mmol/L Creatinine (0.52-1.04) mg/dL Glucose (74-99) mg/dL POC Glucose (mg/dL) 323 H (70-110) mg/dL Calcium (8.4-10.2) mg/dL Microbiology - Last 24 Hours (Table) 05/24/24 17:55 Gram Stain - Preliminary Leg - Right 05/24/24 17:50 Gram Stain - Preliminary Leg - Left
[2024-05-26 10:43] LABS: Basophils % (A) 0.8 %; Eosinophils # (A) 0.06 X 10*3/uL (0.04-0.35); Eosinophils % (A) 0.5 %; HGB 9.6 g/dL (12.0-15.0); Lymphocytes # (A) 1.61 X 10*3/uL (0.90-5.00); Lymphocytes % (A) 13.6 %; MCH 27.8 pg (27.0-32.0); MCV 89.9 FL (80.0-97.0); Mean Platelet Volume 9.4 FL (9.5-12.2); Monocytes # (A) 0.46 X 10*3/uL (0.20-1.00); Monocytes % (A) 3.9 %; NRBC Per 100 WBC 0 X 10*3/uL (0.00-0.01); Neutrophils # (A) 9.43 X 10*3/uL (1.80-7.70); Platelet Count 462 X 10*3/uL (140-440); RBC 3.45 X 10*6/uL (4.10-5.20); RDW 18.4 % (11.5-14.5)
[2024-05-26 11:30] LABS: ALT 15 U/L (8-44); AST 12 U/L (13-35); Albumin 2.8 g/dL (3.8-4.9); Albumin/Globulin Ratio 1.65 Ratio (1.60-3.17); Alkaline Phosphatase 227 U/L (41-126); BUN/Creat Ratio 49.33 Ratio (12.00-20.00); Blood Urea Nitrogen 14.8 mg/dL (9.0-27.0); Calcium 8.4 mg/dL (8.7-10.3); Carbon Dioxide 25.7 mmol/L (21.6-31.8); Chloride 101 mmol/L (96-109); Globulin 1.7 g/dL (1.6-3.3); Glucose 348 mg/dL (70-110); Potassium 3.4 mmol/L (3.5-5.5); Sodium 137 mmol/L (135-145); Total Bilirubin <0.2 mg/dL (0.3-1.2); Total Protein 4.5 g/dL (6.2-8.2)
[2024-05-26 11:48] LABS: Glucose,Whole Blood 258 mg/dL (70-110)
[2024-05-26] MEDS: COLLAGENASE 250 UNIT/GM OINTMENT 30 GM TUBE TOPICAL PRN (12:27)
--- NOTE | 2024-05-26 13:07 | P.PN ---
Subjective Progress Note Date: 05/26/24 Principal diagnosis: Reason for follow-up is sacral pressure ulcer bilateral lower extremity wound and bacteremia Patient is a 64-year-old female with multiple comorbidities initial presentation to the hospital with worsening sacral wound also have a positive blood culture and extensive wound to bilateral lower extremity patient is status post bedside debridement of the sacral wound.Patient is status post sharp excisional debridement of bilateral lower extremity wound and deep cultures completed on 05/24/2024 On today's evaluation that is 05/26/2024, Patient is afebrile this morning patient denies having any chest pain shortness of breath or cough, the patient i s breathing comfortably and currently on room air, patient denies any abdominal pain no diarrhea no nausea no vomiting denies any worsening pain to bilateral lower extremity wounds. Patient white count is down to 11.8, creatinine 0.3 local culture growing Staph aureus and Corynebacterium Objective - Vital Signs Vital signs: Vital Signs Temp 98.1 F 05/26/24 07:46 Pulse 85 05/26/24 07:46 Resp 18 05/26/24 07:46 BP 152/80 05/26/24 07:46 Pulse Ox 98 05/26/24 07:46 FiO2 Intake & Output 05/25/24 05/26/24 05/26/24 18:59 06:59 18:59 Output Total 700 1400 1520 Balance -700 -1400 -1520 Output: Urine 700 1400 1520 Other: Voiding Method Indwelling Catheter Indwelling Catheter - Exam GENERAL DESCRIPTION: Middle-age female lying in bed in no distress RESPIRATORY SYSTEM: Unlabored breathing , decreased breath sounds at bases HEART: S1 S2 regular rate and rhythm , ABDOMEN: Soft , no tenderness EXTREMITIES: Right leg wound did have some slough tissue left leg wound with minimal slough tissue or surrounding redness decreased - Labs CBC & Chem 7: 05/26/24 07:29 05/26/24 07:29 Labs: Abnormal Lab Results - Last 24 Hours (Table) 05/25/24 05/25/24 05/26/24 Range/Units 16:44 20:19 04:31 WBC (4.50-10.00) X 10*3/uL RBC (4.10-5.20) X 10*6/uL Hgb (12.0-15.0) g/dL Hct (37.2-46.3) % MCHC (32.0-37.0) g/dL RDW (11.5-14.5) % Plt Count (140-440) X 10*3/uL MPV (9.5-12.2) FL Immature Gran # (0.00-0.04) X 10*3/uL Neutrophils # (1.80-7.70) X 10*3/uL Potassium (3.5-5.5) mmol/L Creatinine 0.30 L (0.52-1.04) mg/dL BUN/Creatinine Ratio (12.00-20.00) Ratio Glucose (70-110) mg/dL POC Glucose (mg/dL) 175 H 318 H (70-110) mg/dL Calcium (8.7-10.3) mg/dL Total Bilirubin (0.3-1.2) mg/dL AST (13-35) U/L Alkaline Phosphatase (41-126) U/L Total Protein (6.2-8.2) g/dL Albumin (3.8-4.9) g/dL 05/26/24 05/26/24 05/26/24 Range/Units 06:09 07:29 07:29 WBC 11.80 H (4.50-10.00) X 10*3/uL RBC 3.45 L (4.10-5.20) X 10*6/uL Hgb 9.6 L (12.0-15.0) g/dL Hct 31.0 L (37.2-46.3) % MCHC 31.0 L (32.0-37.0) g/dL RDW 18.4 H (11.5-14.5) % Plt Count 462 H (140-440) X 10*3/uL MPV 9.4 L (9.5-12.2) FL Immature Gran # 0.14 H (0.00-0.04) X 10*3/uL Neutrophils # 9.43 H (1.80-7.70) X 10*3/uL Potassium 3.4 L (3.5-5.5) mmol/L Creatinine 0.3 L (0.52-1.04) mg/dL BUN/Creatinine Ratio 49.33 H (12.00-20.00) Ratio Glucose 348 H (70-110) mg/dL POC Glucose (mg/dL) 404 H (70-110) mg/dL Calcium 8.4 L (8.7-10.3) mg/dL Total Bilirubin <0.2 L (0.3-1.2) mg/dL AST 12 L (13-35) U/L Alkaline Phosphatase 227 H (41-126) U/L Total Protein 4.5 L (6.2-8.2) g/dL Albumin 2.8 L (3.8-4.9) g/dL 05/26/24 Range/Units 11:46 WBC (4.50-10.00) X 10*3/uL RBC (4.10-5.20) X 10*6/uL Hgb (12.0-15.0) g/dL Hct (37.2-46.3) % MCHC (32.0-37.0) g/dL RDW (11.5-14.5) % Plt Count (140-440) X 10*3/uL MPV (9.5-12.2) FL Immature Gran # (0.00-0.04) X 10*3/uL Neutrophils # (1.80-7.70) X 10*3/uL Potassium (3.5-5.5) mmol/L Creatinine (0.52-1.04) mg/dL BUN/Creatinine Ratio (12.00-20.00) Ratio Glucose (70-110) mg/dL POC Glucose (mg/dL) 258 H (70-110) mg/dL Calcium (8.7-10.3) mg/dL Total Bilirubin (0.3-1.2) mg/dL AST (13-35) U/L Alkaline Phosphatase (41-126) U/L Total Protein (6.2-8.2) g/dL Albumin (3.8-4.9) g/dL Microbiology - Last 24 Hours (Table) 05/24/24 17:55 Gram Stain - Preliminary Leg - Right Wound Culture - Preliminary Staphylococcus aureus Corynebacterium striatum group 05/24/24 17:50 Gram Stain - Preliminary Leg - Left Assessment and Plan (1) Stage IV pressure ulcer of sacral region Current Visit: Yes Status: Acute Code(s): L89.154 - PRESSURE ULCER OF SACRAL REGION, STAGE 4 SNOMED Code(s): 14404938646311 (2) Open wound of both lower extremities Current Visit: Yes Status: Acute Code(s): S81.801A - UNSPECIFIED OPEN WOUND, RIGHT LOWER LEG, INITIAL ENCOUNTER; S81.802A - UNSPECIFIED OPEN WOUND, LEFT LOWER LEG, INITIAL ENCOUNTER SNOMED Code(s): 17182221 (3) Bacteremia Current Visit: Yes Status: Acute Code(s): R78.81 - BACTEREMIA SNOMED Code(s): 7636515 Plan: 1patient with infected sacral pressure ulcer stage IV with a local culture positive for MSSA Pseudomonas and Klebsiella patient is covered with cefepime and Flagyl 2-positive blood culture with gram-positive cocci still waiting for final ID covered with the vancomycin dosing while Watching her creatinine closely 3-bilateral lower extremity pressure ulcer patient is status post surgical debridement and cultures currently growing Staph aureus with sensitivities pending 4- patient is covered with vancomycin cefepime and Flagyl pending finalization of the local culture to determine discharge antibiotics Dictation was produced using [employer] dictation software. please excuse any grammatical, word or spelling errors. Time with Patient: Less than 30
--- NOTE | 2024-05-26 14:52 | P.PN ---
Subjective Progress Note Date: 05/26/24 This is a 64-year-old female who has been at [facility] and followed by Dr. Mcpherson while there. Comes in for an infected sacral ulcer with culture showing MSSA, Klebsiella and Pseudomonas. She has gram positive blood cultures. Also with extensive lower extremity wounds. Patient is continued on a combination of IV cefepime IV vancomycin and oral Flagyl with ID and surgery following closely. Patient has undergone vascular debridement of the sacral wound. She does need a PICC line for outpatient antibiotic therapy. Continues on Santyl and local wound care of the sacrum. CT of the abdomen on the did reveal fecal impaction yesterday patient had received dulcolax and soap suds enema and now she has been moving her bowels. 05/22/2024 Patient seen and evaluated in follow-up today with infectious disease and general surgery following. Patient maintained on antibiotics per infectious disease and has been awaiting repeat blood culture results to be finalized to determine discharge antibiotics. Patient was evaluated by vascular surgery last week and recommend outpatient follow-up if the bilateral heel and foot wounds are not healing and suggest possibly bilateral AKA in the outpatient setting. Family is concerned about her heel wounds not being addressed and how well they transport her back and forth from vascular surgery clinic. Plan is for patient to return to [facility] and currently awaiting cultures and IV antibiotic recommendations per ID. Patient is afebrile, denies chest pain or shortness of breath and reports the breathing treatments are helping. Patient is on bowel regimen and will continue as patient is passing her bowels. Blood sugars are mildly elevated although dropped drastically overnight and will transition long- acting to daily and continue with sliding scale. Encouraged oral intake and will need PT/OT therapy evaluation as well as case management on the case as patient plans on returning to [facility]. 05/23/2024 Patient is seen in follow-up today with family at the bedside and discussed further with Dr. Horn's group from vascular surgery and plans for possible bilateral lower extremity debridement and hopeful for deep tissue cultures on Wednesday. Patient will be n.p.o. and recommend monitoring sugars closely. Blood sugars have been elevated today and insulins have been adjusted. Patient is afebrile with no reports of chest pain or shortness of breath. Patient does have a PICC line and will be continued on IV antibiotics. Infectious diseases following. 05/24/2024 Patient is seen in follow-up today made n.p.o. as patient is scheduled to u ndergo debridement with Dr. Horn of bilateral lower chavez area and will await deep cultures. This was discussed with Dr. Horn prior to surgical intervention. Long discussion was had about overall prognosis and probable still need for bilateral AKA down the line although patient unwilling at this time and willing to proceed with cultures. Patient does have a PICC line with infectious disease following and will await deep cultures to determine discharge antibiotics. Plan is for patient to return to [facility] on discharge. Continue monitoring sugars closely as they are extremely uncontrolled. 05/25/2024 Patient is seen this morning status post debridement of bilateral lower extremity shins with Dr. Horn. Awaiting cultures to determine discharge antibiotics and patient is maintained on antibiotics per ID recommendations with a PICC line. Plan will be for her to return to [facility] with antibiotic therapy and wound care. Patient's blood sugars have been up and down and will continue current regimen and adjust as needed. Patient is not compliant with diet and diabetic choices. Patient is afebrile and white count mildly trending down and will continue current regimen. Recommend frequent position changes and offloading of the sacral area as patient continues to report severe pain. 05/26/2024 Patient evaluated today status post debridement day 2 of the bilateral lower extremity shins with dr. Horn. Patient is awaiting wound cultures preliminary showing staph aureus. Potassium today 3.4. White blood cell count 11.80. Blood glucose remains elevated ranging 250-400s. Review of Systems Constitutional: Denied any fatigue denied any fever. Cardio vascular: denied any chest pain, palpitations Gastrointestinal: denied any nausea, vomiting, diarrhea, patient reports is pas sing bowels Pulmonary: Denied any shortness of breath cough Neurologic denied any new focal deficits, reports continued diffuse weakness, reports continued discomfort of the lower extremities All inpatient medications were reviewed and appropriate changes in these medications as dictated in the interval history and assessment and plan. PHYSICAL EXAMINATION: GENERAL: The patient is sleeping but easily arousable, alert and oriented x3, not in any acute distress. Well developed, thin built, elderly appearing, cachectic HEENT: Pupils are round and equally reacting to light. EOMI. No scleral icterus. No conjunctival pallor. Normocephalic, atraumatic. No pharyngeal erythema. No thyromegaly. CARDIOVASCULAR: S1 and S2 present. No murmurs, rubs, or gallops. PULMONARY: Diminished breath sounds bilaterally otherwise chest is clear to auscultation, no wheezing or crackles. ABDOMEN: Soft, nontender, nondistended, normoactive bowel sounds. No palpable organomegaly. Having bowel movements now. Thin MUSCULOSKELETAL: No joint swelling or deformity. EXTREMITIES: No cyanosis, clubbing, or pedal edema. Offloading boots noted bilaterally to lower heels NEUROLOGICAL: Gross neurological examination did not reveal any focal deficits. Diffusely weak SKIN: No rashes. Stage IV sacral wound bilateral extensive lower extremity wounds currently dressed. There is some necrotic tissue and sloughing noted, surgical dressings are dry and intact of bilateral lower chavez Assessment -Infected stage IV sacral pressure injury status post surgical debridement and continues on santyl local wound care -Leukocytosis, possibly secondary to above, trending down -Bilateral lower extremity wound on the calfs down to the tendon may require amputation however vascular would like patient to be opitimized medically and plan for amputations outpatient if patient and family decide to go this route. Patient is status post surgical debridement with vascular surgery on 05/24/2024 and currently awaiting cultures -Gram positive cocci bacteremia, repeat cultures have been negative -Severe peripheral arterial disease; Bilateral SFA occlusion, severe [employer], iliac stenosis and severe intrapopliteal stenosis left greater than right -Fecal impaction as noted on CT imaging. Improved, patient having bowel moveme nts now -Chronic medical debility and non-weight bearing. -Hx of COPD with no acute exacerbation -Diabetes Mellitus type 2 with hyperglycemia and hypoglycemia -Hx of hypertension -Hyperlipidemia -Hx of PE in the past not currently on oral anticoagulation -Moderate protein calorie malnutrition -Chronic nicotine use GI prophylaxis: IV protonix DVT prophylaxis: Subcu heparin Full Code Plan Continue IV antibiotics per ID recommendations and repeat blood cultures per micro lab have remained negative for 5 days Continue local wound care Vascular has evaluated the patient and recommends follow up outpatient and will need medical clearance for leg amputations, family is concerned on getting her back and forth to appointments. Patient is status post surgical debridement with deep tissue cultures on 05/24/2024. Currently awaiting cultures Continue on bowel regimen as patient is now having bowel movements. Continue accuchecks ACHS and sliding scale and will adjust insulins as patient has been having elevated blood sugars during the day and extremely low blood sugars overnight. Continue oral lasix Continue nicotine patch Repeat blood work in the AM, white count remains elevated Patient remains afebrile and will follow-up on repeat labs in the morning Patient has received a PICC line and will be awaiting deep cultures from lower extremities to determine discharge antibiotics Plan is for patient to return to [facility] on discharge The impression and plan of care has been dictated by Kerri Spencer, Nurse Practitioner as directed. Dr. Chance MD I have performed a history and physical examination and medical decision making of this patient, discussed the same with the dictator, and agree with the dictators assessment and plan as written, documented as a scribe. Based on total visit time, I have performed more than 50% of this visit. Objective - Vital Signs Vital signs: Vital Signs Temp 98.1 F 05/26/24 07:46 Pulse 85 05/26/24 07:46 Resp 18 05/26/24 07:46 BP 152/80 05/26/24 07:46 Pulse Ox 98 05/26/24 07:46 FiO2 Intake & Output 05/25/24 05/26/24 05/26/24 18:59 06:59 18:59 Output Total 700 1400 1520 Balance -700 -1400 -1520 Output: Urine 700 1400 1520 Other: Voiding Method Indwelling Catheter Indwelling Catheter - Labs CBC & Chem 7: 05/26/24 07:29 05/26/24 07:29 Labs: Abnormal Lab Results - Last 24 Hours (Table) 05/25/24 05/25/24 05/26/24 Range/Units 16:44 20:19 04:31 WBC (4.50-10.00) X 10*3/uL RBC (4.10-5.20) X 10*6/uL Hgb (12.0-15.0) g/dL Hct (37.2-46.3) % MCHC (32.0-37.0) g/dL RDW (11.5-14.5) % Plt Count (140-440) X 10*3/uL MPV (9.5-12.2) FL Immature Gran # (0.00-0.04) X 10*3/uL Neutrophils # (1.80-7.70) X 10*3/uL Potassium (3.5-5.5) mmol/L Creatinine 0.30 L (0.52-1.04) mg/dL BUN/Creatinine Ratio (12.00-20.00) Ratio Glucose (70-110) mg/dL POC Glucose (mg/dL) 175 H 318 H (70-110) mg/dL Calcium (8.7-10.3) mg/dL Total Bilirubin (0.3-1.2) mg/dL AST (13-35) U/L Alkaline Phosphatase (41-126) U/L Total Protein (6.2-8.2) g/dL Albumin (3.8-4.9) g/dL 05/26/24 05/26/24 05/26/24 Range/Units 06:09 07:29 07:29 WBC 11.80 H (4.50-10.00) X 10*3/uL RBC 3.45 L (4.10-5.20) X 10*6/uL Hgb 9.6 L (12.0-15.0) g/dL Hct 31.0 L (37.2-46.3) % MCHC 31.0 L (32.0-37.0) g/dL RDW 18.4 H (11.5-14.5) % Plt Count 462 H (140-440) X 10*3/uL MPV 9.4 L (9.5-12.2) FL Immature Gran # 0.14 H (0.00-0.04) X 10*3/uL Neutrophils # 9.43 H (1.80-7.70) X 10*3/uL Potassium 3.4 L (3.5-5.5) mmol/L Creatinine 0.3 L (0.52-1.04) mg/dL BUN/Creatinine Ratio 49.33 H (12.00-20.00) Ratio Glucose 348 H (70-110) mg/dL POC Glucose (mg/dL) 404 H (70-110) mg/dL Calcium 8.4 L (8.7-10.3) mg/dL Total Bilirubin <0.2 L (0.3-1.2) mg/dL AST 12 L (13-35) U/L Alkaline Phosphatase 227 H (41-126) U/L Total Protein 4.5 L (6.2-8.2) g/dL Albumin 2.8 L (3.8-4.9) g/dL 05/26/24 Range/Units 11:46 WBC (4.50-10.00) X 10*3/uL RBC (4.10-5.20) X 10*6/uL Hgb (12.0-15.0) g/dL Hct (37.2-46.3) % MCHC (32.0-37.0) g/dL RDW (11.5-14.5) % Plt Count (140-440) X 10*3/uL MPV (9.5-12.2) FL Immature Gran # (0.00-0.04) X 10*3/uL Neutrophils # (1.80-7.70) X 10*3/uL Potassium (3.5-5.5) mmol/L Creatinine (0.52-1.04) mg/dL BUN/Creatinine Ratio (12.00-20.00) Ratio Glucose (70-110) mg/dL POC Glucose (mg/dL) 258 H (70-110) mg/dL Calcium (8.7-10.3) mg/dL Total Bilirubin (0.3-1.2) mg/dL AST (13-35) U/L Alkaline Phosphatase (41-126) U/L Total Protein (6.2-8.2) g/dL Albumin (3.8-4.9) g/dL Microbiology - Last 24 Hours (Table) 05/24/24 17:55 Gram Stain - Preliminary Leg - Right Wound Culture - Preliminary Staphylococcus aureus Corynebacterium striatum group Assessment and Plan Time with Patient: Less than 30
[2024-05-26 16:54] LABS: Glucose,Whole Blood 141 mg/dL (70-110)
[2024-05-26 20:08] LABS: Glucose,Whole Blood 357 mg/dL (70-110)
[2024-05-27] MEDS: VANCOMYCIN TROUGH DUE 1 EACH MISC MISCELLANE ONE (05:53)
[2024-05-27 06:04] LABS: Glucose,Whole Blood 317 mg/dL (70-110)
[2024-05-27 08:23] LABS: African American GFR (CKD) >90 (>60 ml/min/1.73 sqM); Non-African American GFR(CKD) >90 (>60 ml/min/1.73 sqM)
[2024-05-27 11:50] LABS: Glucose,Whole Blood 335 mg/dL (70-110)
[2024-05-27 17:13] LABS: Glucose,Whole Blood 130 mg/dL (70-110)
[2024-05-27 20:33] LABS: Glucose,Whole Blood 177 mg/dL (70-110)
--- NOTE | 2024-05-27 21:08 | P.PN ---
Subjective Progress Note Date: 05/27/24 Principal diagnosis: Reason for follow-up is sacral pressure ulcer bilateral lower extremity wound and bacteremia Patient is a 64-year-old female with multiple comorbidities initial presentation to the hospital with worsening sacral wound also have a positive blood culture and extensive wound to bilateral lower extremity patient is status post bedside debridement of the sacral wound.Patient is status post sharp excisional debridement of bilateral lower extremity wound and deep cultures completed on 05/24/2024 On today's evaluation that is 05/27/2024,the patient denies any fever or any chills, patient is breathing comfortably on room air, the patient denies chest pain shortness of breath and no significant cough, patient denies abdominal pain, no nausea vomiting or diarrhea. Denies any worsening pain to bilateral lower extremity wound area. Patient did have a creatinine 0.44 vancomycin trough is 14.3 local culture finalized with MRSA and corynebacterium Objective - Vital Signs Vital signs: Vital Signs Temp 98.5 F 05/27/24 02:00 Pulse 80 05/27/24 02:00 Resp 18 05/27/24 02:00 BP 138/70 05/27/24 02:00 Pulse Ox 97 05/27/24 02:00 FiO2 Intake & Output 05/26/24 05/27/24 05/27/24 18:59 06:59 18:59 Output Total 1520 1800 Balance -1520 -1800 Output: Urine 1520 1800 Other: Voiding Method Indwelling Catheter - Exam GENERAL DESCRIPTION: Middle-age female lying in bed in no distress RESPIRATORY SYSTEM: Unlabored breathing , decreased breath sounds at bases HEART: S1 S2 regular rate and rhythm , ABDOMEN: Soft , no tenderness EXTREMITIES: Bilateral lower extremity wounds are currently dressed no drainage on the dressing - Labs CBC & Chem 7: 05/26/24 07:29 05/27/24 07:24 Labs: Abnormal Lab Results - Last 24 Hours (Table) 05/26/24 05/26/24 05/26/24 Range/Units 07:29 07:29 11:46 WBC 11.80 H (4.50-10.00) X 10*3/uL RBC 3.45 L (4.10-5.20) X 10*6/uL Hgb 9.6 L (12.0-15.0) g/dL Hct 31.0 L (37.2-46.3) % MCHC 31.0 L (32.0-37.0) g/dL RDW 18.4 H (11.5-14.5) % Plt Count 462 H (140-440) X 10*3/uL MPV 9.4 L (9.5-12.2) FL Immature Gran # 0.14 H (0.00-0.04) X 10*3/uL Neutrophils # 9.43 H (1.80-7.70) X 10*3/uL Potassium 3.4 L (3.5-5.5) mmol/L Creatinine 0.3 L (0.6-1.5) mg/dL BUN/Creatinine Ratio 49.33 H (12.00-20.00) Ratio Glucose 348 H (70-110) mg/dL POC Glucose (mg/dL) 258 H (70-110) mg/dL Calcium 8.4 L (8.7-10.3) mg/dL Total Bilirubin <0.2 L (0.3-1.2) mg/dL AST 12 L (13-35) U/L Alkaline Phosphatase 227 H (41-126) U/L Total Protein 4.5 L (6.2-8.2) g/dL Albumin 2.8 L (3.8-4.9) g/dL 05/26/24 05/26/24 05/27/24 Range/Units 16:53 20:07 06:03 WBC (4.50-10.00) X 10*3/uL RBC (4.10-5.20) X 10*6/uL Hgb (12.0-15.0) g/dL Hct (37.2-46.3) % MCHC (32.0-37.0) g/dL RDW (11.5-14.5) % Plt Count (140-440) X 10*3/uL MPV (9.5-12.2) FL Immature Gran # (0.00-0.04) X 10*3/uL Neutrophils # (1.80-7.70) X 10*3/uL Potassium (3.5-5.5) mmol/L Creatinine (0.6-1.5) mg/dL BUN/Creatinine Ratio (12.00-20.00) Ratio Glucose (70-110) mg/dL POC Glucose (mg/dL) 141 H 357 H 317 H (70-110) mg/dL Calcium (8.7-10.3) mg/dL Total Bilirubin (0.3-1.2) mg/dL AST (13-35) U/L Alkaline Phosphatase (41-126) U/L Total Protein (6.2-8.2) g/dL Albumin (3.8-4.9) g/dL Microbiology - Last 24 Hours (Table) 05/24/24 17:50 Anaerobic Culture - Preliminary Leg - Left 05/24/24 17:55 Anaerobic Culture - Preliminary Leg - Right Corynebacterium striatum group 05/24/24 17:55 Gram Stain - Final Leg - Right Wound Culture - Final Methicillin resist S. aureus Corynebacterium striatum group Assessment and Plan (1) Stage IV pressure ulcer of sacral region Current Visit: Yes Status: Acute Code(s): L89.154 - PRESSURE ULCER OF SACRAL REGION, STAGE 4 SNOMED Code(s): 28485739125097 (2) Open wound of both lower extremities Current Visit: Yes Status: Acute Code(s): S81.801A - UNSPECIFIED OPEN WOUND, RIGHT LOWER LEG, INITIAL ENCOUNTER; S81.802A - UNSPECIFIED OPEN WOUND, LEFT LOWER LEG, INITIAL ENCOUNTER SNOMED Code(s): 74217064 (3) Bacteremia Current Visit: Yes Status: Acute Code(s): R78.81 - BACTEREMIA SNOMED Code(s): 1456608 Plan: 1patient with infected sacral pressure ulcer stage IV with a local culture positive for MSSA Pseudomonas and Klebsiella patient is covered with cefepime and Flagyl 2-positive blood culture with gram-positive cocci still waiting for final ID covered with the vancomycin dosing while Watching her creatinine closely 3-bilateral lower extremity pressure ulcer patient is status post surgical debridement and cultures currently growing MRSA and corynebacterium 4- patient is covered with vancomycin cefepime and Flagyl patient already has a PICC line for outpatient IV antibiotic therapy Dictation was produced using [employer] dictation software. please excuse any grammatical, word or spelling errors. Time with Patient: Less than 30
[2024-05-28 06:24] LABS: Glucose,Whole Blood 377 mg/dL (70-110)
[2024-05-28 08:37] LABS: African American GFR (CKD) >90 (>60 ml/min/1.73 sqM); Non-African American GFR(CKD) >90 (>60 ml/min/1.73 sqM)
[2024-05-28 11:42] LABS: Glucose,Whole Blood 139 mg/dL (70-110)
--- NOTE | 2024-05-28 13:34 | P.PN ---
Subjective Progress Note Date: 05/27/24 This is a 64-year-old female who has been at [facility] and followed by Dr. Mcpherson while there. Comes in for an infected sacral ulcer with culture showing MSSA, Klebsiella and Pseudomonas. She has gram positive blood cultures. Also with extensive lower extremity wounds. Patient is continued on a combination of IV cefepime IV vancomycin and oral Flagyl with ID and surgery following closely. Patient has undergone vascular debridement of the sacral wound. She does need a PICC line for outpatient antibiotic therapy. Continues on Santyl and local wound care of the sacrum. CT of the abdomen on the did reveal fecal impaction yesterday patient had received dulcolax and soap suds enema and now she has been moving her bowels. 05/22/2024 Patient seen and evaluated in follow-up today with infectious disease and general surgery following. Patient maintained on antibiotics per infectious disease and has been awaiting repeat blood culture results to be finalized to determine discharge antibiotics. Patient was evaluated by vascular surgery last week and recommend outpatient follow-up if the bilateral heel and foot wounds are not healing and suggest possibly bilateral AKA in the outpatient setting. Family is concerned about her heel wounds not being addressed and how well they transport her back and forth from vascular surgery clinic. Plan is for patient to return to [facility] and currently awaiting cultures and IV antibiotic recommendations per ID. Patient is afebrile, denies chest pain or shortness of breath and reports the breathing treatments are helping. Patient is on bowel regimen and will continue as patient is passing her bowels. Blood sugars are mildly elevated although dropped drastically overnight and will transition long- acting to daily and continue with sliding scale. Encouraged oral intake and will need PT/OT therapy evaluation as well as case management on the case as patient plans on returning to [facility]. 05/23/2024 Patient is seen in follow-up today with family at the bedside and discussed further with Dr. Horn's group from vascular surgery and plans for possible bilateral lower extremity debridement and hopeful for deep tissue cultures on Wednesday. Patient will be n.p.o. and recommend monitoring sugars closely. Blood sugars have been elevated today and insulins have been adjusted. Patient is afebrile with no reports of chest pain or shortness of breath. Patient does have a PICC line and will be continued on IV antibiotics. Infectious diseases following. 05/24/2024 Patient is seen in follow-up today made n.p.o. as patient is scheduled to undergo debridement with Dr. Horn of bilateral lower chavez area and will await deep cultures. This was discussed with Dr. Horn prior to surgical intervention. Long discussion was had about overall prognosis and probable still need for bilateral AKA down the line although patient unwilling at this time and willing to proceed with cultures. Patient does have a PICC line with infectious disease following and will await deep cultures to determine discharge antibiotics. Plan is for patient to return to [facility] on discharge. Continue monitoring sugars closely as they are extremely uncontrolled. 05/25/2024 Patient is seen this morning status post debridement of bilateral lower extremity shins with Dr. Horn. Awaiting cultures to determine discharge antibiotics and patient is maintained on antibiotics per ID recommendations with a PICC line. Plan will be for her to return to [facility] with antibiotic therapy and wound care. Patient's blood sugars have been up and down and will continue current regimen and adjust as needed. Patient is not compliant with diet and diabetic choices. Patient is afebrile and white count mildly trending down and will continue current regimen. Recommend frequent position changes and offloading of the sacral area as patient continues to report severe pain. 05/26/2024 Patient evaluated today status post debridement day 2 of the bilateral lower extremity shins with dr. Horn. Patient is awaiting wound cultures preliminary showing staph aureus. Potassium today 3.4. White blood cell count 11.80. Blood glucose remains elevated ranging 250-400s. 05/27/2024 Patient is lying in the bed. Awake and alert. Currently on room air. No fever no chills. No cough or sputum production. No nausea vomiting or diarrhea. Denied any worsening pain in the legs. Laboratory data reviewed from yesterday. Vancomycin trough level is 14.3. Cultures from 05/24/2024 Corynebacterium and MRSA. Currently on vancomycin.. Patient is s/p debridement of the bilateral lower extremity chavez region by Dr. Horn. Postoperative day 3 Review of Systems Constitutional: Denied any fatigue denied any fever. Cardio vascular: denied any chest pain, palpitations Gastrointestinal: denied any nausea, vomiting, diarrhea, patient reports is passing bowels Pulmonary: Denied any shortness of breath cough Neurologic denied any new focal deficits, reports continued diffuse weakness, reports continued discomfort of the lower extremities All inpatient medications were reviewed and appropriate changes in these medications as dictated in the interval history and assessment and plan. PHYSICAL EXAMINATION: GENERAL: The patient is sleeping but easily arousable, alert and oriented x3, not in any acute distress. Well developed, thin built, elderly appearing, cachectic HEENT: Pupils are round and equally reacting to light. EOMI. No scleral icterus. No conjunctival pallor. Normocephalic, atraumatic. No pharyngeal erythema. No thyromegaly. CARDIOVASCULAR: S1 and S2 present. No murmurs, rubs, or gallops. PULMONARY: Diminished breath sounds bilaterally otherwise chest is clear to auscultation, no wheezing or crackles. ABDOMEN: Soft, nontender, nondistended, normoactive bowel sounds. No palpable organomegaly. Having bowel movements now. Thin MUSCULOSKELETAL: No joint swelling or deformity. EXTREMITIES: No cyanosis, clubbing, or pedal edema. Offloading boots noted bilaterally to lower heels NEUROLOGICAL: Gross neurological examination did not reveal any focal deficits. Diffusely weak SKIN: No rashes. Stage IV sacral wound bilateral extensive lower extremity wounds currently dressed. There is some necrotic tissue and sloughing noted, surgical dressings are dry and intact of bilateral lower chavez Assessment -Infected stage IV sacral pressure injury status post surgical debridement and continues on [facility] local wound care. Wound cultures from 05/24/2024 showed Corynebacterium and MRSA. -Leukocytosis, possibly secondary to above, trending down -Bilateral lower extremity wound on the calfs down to the tendon may require amputation however vascular would like patient to be opitimized medically and plan for amputations outpatient if patient and family decide to go this route. Patient is status post surgical debridement with vascular surgery on 05/24/2024 and currently awaiting cultures -Gram positive cocci bacteremia, repeat cultures have been negative -Severe peripheral arterial disease; Bilateral SFA occlusion, severe [employer]S [employer], iliac stenosis and severe intrapopliteal stenosis left greater than right -Fecal impaction as noted on CT imaging. Improved, patient having bowel movements now -Chronic medical debility and non-weight bearing. -Hx of COPD with no acute exacerbation -Diabetes Mellitus type 2 with hyperglycemia and hypoglycemia -Hx of hypertension -Hyperlipidemia -Hx of PE in the past not currently on oral anticoagulation -Moderate protein calorie malnutrition -Chronic nicotine use GI prophylaxis: IV protonix DVT prophylaxis: Subcu heparin Full Code Plan Continue IV antibiotics per ID recommendations and repeat blood cultures per micro lab have remained negative for 5 days Continue local wound care Vascular has evaluated the patient and recommends follow up outpatient and will need medical clearance for leg amputations, family is concerned on getting her back and forth to appointments. Patient is status post surgical debridement with deep tissue cultures on 05/24/2024. Follow-up final blood culture report. Continue on bowel regimen as patient is now having bowel movements. Continue accuchecks ACHS and sliding scale and will adjust insulins as patient has been having elevated blood sugars during the day and extremely low blood sugars overnight. Continue oral lasix Continue nicotine patch Repeat blood work in the AM, white count remains elevated Patient remains afebrile and will follow-up on repeat labs in the morning Patient has received a PICC line and will be awaiting deep cultures from lower extremities to determine discharge antibiotics Plan is for patient to return to [facility] on discharge Objective - Vital Signs Vital signs: Vital Signs Temp 98.1 F 05/28/24 00:59 Pulse 87 05/28/24 11:26 Resp 18 05/28/24 07:09 BP 157/64 05/28/24 07:09 Pulse Ox 97 05/28/24 07:09 FiO2 Intake & Output 05/27/24 05/28/24 05/28/24 18:59 06:59 18:59 Intake Total 250 Output Total 1000 1050 Balance -750 -1050 Intake: Intake, IV Titration 250 Amount Vancomycin 500 mg In 250 Sodium Chloride 0.9% 250 ml @ 125 mls/hr IVPB Q8H [facility] Rx#:[id number] Output: Urine 1000 1050 Uretheral (Horn) 1000 Other: Voiding Method Indwelling Catheter Indwelling Catheter - Labs CBC & Chem 7: 05/26/24 07:29 05/28/24 05:43 Labs: Abnormal Lab Results - Last 24 Hours (Table) 05/27/24 05/27/24 05/28/24 Range/Units 17:12 20:32 05:43 Creatinine 0.21 L (0.52-1.04) mg/dL POC Glucose (mg/dL) 130 H 177 H (70-110) mg/dL 05/28/24 05/28/24 Range/Units 06:23 11:41 Creatinine (0.52-1.04) mg/dL POC Glucose (mg/dL) 377 H 139 H (70-110) mg/dL Microbiology - Last 24 Hours (Table) 05/24/24 17:55 Anaerobic Culture - Preliminary Leg - Right Corynebacterium striatum group
--- NOTE | 2024-05-28 15:53 | P.PN ---
Subjective Progress Note Date: 05/28/24 Principal diagnosis: Reason for follow-up is sacral pressure ulcer bilateral lower extremity wound and bacteremia Patient is a 64-year-old female with multiple comorbidities initial presentation to the hospital with worsening sacral wound also have a positive blood culture and extensive wound to bilateral lower extremity patient is status post bedside debridement of the sacral wound.Patient is status post sharp excisional debridement of bilateral lower extremity wound and deep cultures completed on 05/24/2024 On today's evaluation that is 05/28/2024,the patient remains to be afebrile, patient is on room air not requiring supplemental oxygen and denies any shortn ess of breath no chest pain or cough.Patient denies having any nausea or vomiting, no abdominal pain and no diarrhea has been reported denies any worsening pain to the sacral or lower extremity wound. Patient did have a creatinine 0.21 Objective - Vital Signs Vital signs: Vital Signs Temp 98.1 F 05/28/24 00:59 Pulse 87 05/28/24 11:26 Resp 18 05/28/24 07:09 BP 157/64 05/28/24 07:09 Pulse Ox 97 05/28/24 07:09 FiO2 Intake & Output 05/27/24 05/28/24 05/28/24 18:59 06:59 18:59 Intake Total 250 Output Total 1000 1050 Balance -750 -1050 Intake: Intake, IV Titration 250 Amount Vancomycin 500 mg In 250 Sodium Chloride 0.9% 250 ml @ 125 mls/hr IVPB Q8H [facility] Rx#:[id number] Output: Urine 1000 1050 Uretheral (Horn) 1000 Other: Voiding Method Indwelling Catheter Indwelling Catheter - Exam GENERAL DESCRIPTION: Middle-age female lying in bed in no distress RESPIRATORY SYSTEM: Unlabored breathing , decreased breath sounds at bases HEART: S1 S2 regular rate and rhythm , ABDOMEN: Soft , no tenderness EXTREMITIES: Bilateral lower extremity wounds are currently dressed no drainage on the dressing - Labs CBC & Chem 7: 05/26/24 07:29 05/28/24 05:43 Labs: Abnormal Lab Results - Last 24 Hours (Table) 05/27/24 05/27/24 05/28/24 Range/Units 17:12 20:32 05:43 Creatinine 0.21 L (0.52-1.04) mg/dL POC Glucose (mg/dL) 130 H 177 H (70-110) mg/dL 05/28/24 05/28/24 Range/Units 06:23 11:41 Creatinine (0.52-1.04) mg/dL POC Glucose (mg/dL) 377 H 139 H (70-110) mg/dL Microbiology - Last 24 Hours (Table) 05/24/24 17:55 Anaerobic Culture - Preliminary Leg - Right Corynebacterium striatum group Assessment and Plan (1) Stage IV pressure ulcer of sacral region Current Visit: Yes Status: Acute Code(s): L89.154 - PRESSURE ULCER OF SACRAL REGION, STAGE 4 SNOMED Code(s): 09500331461921 (2) Open wound of both lower extremities Current Visit: Yes Status: Acute Code(s): S81.801A - UNSPECIFIED OPEN WOUND, RIGHT LOWER LEG, INITIAL ENCOUNTER; S81.802A - UNSPECIFIED OPEN WOUND, LEFT LOWER LEG, INITIAL ENCOUNTER SNOMED Code(s): 86352894 (3) Bacteremia Current Visit: Yes Status: Acute Code(s): R78.81 - BACTEREMIA SNOMED Code(s): 5732280 Plan: 1patient with infected sacral pressure ulcer stage IV with a local culture positive for MSSA Pseudomonas and Klebsiella patient is covered with cefepime and Flagyl 2-positive blood culture with gram-positive cocci still waiting for final ID covered with the vancomycin dosing while Watching her creatinine closely 3-bilateral lower extremity pressure ulcer patient is status post surgical debridement and cultures currently growing MRSA and corynebacterium 4- patient to continue with vancomycin while watching her kidney function closely creatinine is currently stable along with cefepime and Flagyl and monitor clinical course closely Dictation was produced using [employer] dictation software. please excuse any grammatical, word or spelling errors. Time with Patient: Less than 30
[2024-05-28 16:53] LABS: Glucose,Whole Blood 136 mg/dL (70-110)
[2024-05-28 21:41] LABS: Glucose,Whole Blood 226 mg/dL (70-110)
[2024-05-29 05:26] LABS: African American GFR (CKD) >90 (>60 ml/min/1.73 sqM); Anion Gap 4 mmol/L; Blood Urea Nitrogen 19 mg/dL (7-17); Calcium 8.5 mg/dL (8.4-10.2); Carbon Dioxide 24 mmol/L (22-30); Chloride 101 mmol/L (98-107); Non-African American GFR(CKD) >90 (>60 ml/min/1.73 sqM); Potassium 4.4 mmol/L (3.5-5.1); Sodium 129 mmol/L (137-145)
[2024-05-29 05:27] LABS: Glucose 548 mg/dL (74-99)
[2024-05-29 06:40] LABS: Glucose,Whole Blood 509 mg/dL (70-110)
[2024-05-29 11:22] LABS: Glucose,Whole Blood 241 mg/dL (70-110)
[2024-05-29 12:50] LABS: Basophils # (A) 0.06 X 10*3/uL (0.00-0.10); Basophils % (A) 0.5 %; Eosinophils # (A) 0.01 X 10*3/uL (0.04-0.35); Eosinophils % (A) 0.1 %; HCT 33.1 % (37.2-46.3); HGB 10.2 g/dL (12.0-15.0); Lymphocytes # (A) 0.69 X 10*3/uL (0.90-5.00); Lymphocytes % (A) 5.4 %; MCH 28.6 pg (27.0-32.0); MCHC 30.8 g/dL (32.0-37.0); MCV 92.7 FL (80.0-97.0); Mean Platelet Volume 9.7 FL (9.5-12.2); Monocytes # (A) 0.37 X 10*3/uL (0.20-1.00); Monocytes % (A) 2.9 %; NRBC Per 100 WBC 0 X 10*3/uL (0.00-0.01); Neutrophils # (A) 11.54 X 10*3/uL (1.80-7.70); Neutrophils % (A) 89.8 %; Platelet Count 444 X 10*3/uL (140-440); RBC 3.57 X 10*6/uL (4.10-5.20); RDW 18.6 % (11.5-14.5); WBC 12.84 X 10*3/uL (4.50-10.00)
[2024-05-29 17:06] LABS: Glucose,Whole Blood 126 mg/dL (70-110)
[2024-05-29 21:33] LABS: Glucose,Whole Blood 247 mg/dL (70-110)
--- NOTE | 2024-05-29 22:41 | P.PN ---
Subjective Progress Note Date: 05/29/24 Principal diagnosis: Reason for follow-up is sacral pressure ulcer bilateral lower extremity wound and bacteremia Patient is a 64-year-old female with multiple comorbidities initial presentation to the hospital with worsening sacral wound also have a positive blood culture and extensive wound to bilateral lower extremity patient is status post bedside debridement of the sacral wound.Patient is status post sharp excisional debridement of bilateral lower extremity wound and deep cultures completed on 05/24/2024 On today's evaluation that is 05/29/2024, the patient continues to be afebrile, the patient is on room air and breathing comfortably, the Pt denies having any chest pain or cough, the patient denies having any abdominal pain no vomiting or any diarrhea has been reported by the nursing staff, denies any worsening pain to lower extremity wounds. Patient white count is 12.84, creatinine 0.24 Objective - Vital Signs Vital signs: Vital Signs Temp 98.2 F 05/29/24 07:24 Pulse 90 05/29/24 13:24 Resp 18 05/29/24 07:24 BP 132/78 05/29/24 07:24 Pulse Ox 94 L 05/29/24 07:24 FiO2 Intake & Output 05/28/24 05/29/24 05/29/24 18:59 06:59 18:59 Intake Total 250 Output Total 1999 1300 Balance 250 -2000 -1300 Intake: Intake, IV Titration 250 Amount Vancomycin 500 mg In 250 Sodium Chloride 0.9% 250 ml @ 125 mls/hr IVPB Q8H [facility] Rx#:[id number] Output: Urine 1999 1299 Other: Voiding Method Indwelling Catheter Indwelling Catheter Indwelling Catheter - Exam GENERAL DESCRIPTION: Middle-age female lying in bed in no distress RESPIRATORY SYSTEM: Unlabored breathing , decreased breath sounds at bases HEART: S1 S2 regular rate and rhythm , ABDOMEN: Soft , no tenderness EXTREMITIES: Bilateral lower extremity wounds are currently dressed no drainage on the dressing - Labs CBC & Chem 7: 05/29/24 04:03 05/29/24 04:03 Labs: Abnormal Lab Results - Last 24 Hours (Table) 05/28/24 05/28/24 05/29/24 Range/Units 16:51 21:40 04:03 WBC (4.50-10.00) X 10*3/uL RBC (4.10-5.20) X 10*6/uL Hgb (12.0-15.0) g/dL Hct (37.2-46.3) % MCHC (32.0-37.0) g/dL RDW (11.5-14.5) % Plt Count (140-440) X 10*3/uL Immature Gran # (0.00-0.04) X 10*3/uL Neutrophils # (1.80-7.70) X 10*3/uL Lymphocytes # (0.90-5.00) X 10*3/uL Eosinophils # (0.04-0.35) X 10*3/uL Sodium 129 L (137-145) mmol/L BUN 19 H (7-17) mg/dL Creatinine 0.24 L (0.52-1.04) mg/dL Glucose 548 H* (74-99) mg/dL POC Glucose (mg/dL) 136 H 226 H (70-110) mg/dL 05/29/24 05/29/24 05/29/24 Range/Units 04:03 06:37 11:21 WBC 12.84 H (4.50-10.00) X 10*3/uL RBC 3.57 L (4.10-5.20) X 10*6/uL Hgb 10.2 L (12.0-15.0) g/dL Hct 33.1 L (37.2-46.3) % MCHC 30.8 L (32.0-37.0) g/dL RDW 18.6 H (11.5-14.5) % Plt Count 444 H (140-440) X 10*3/uL Immature Gran # 0.17 H (0.00-0.04) X 10*3/uL Neutrophils # 11.54 H (1.80-7.70) X 10*3/uL Lymphocytes # 0.69 L (0.90-5.00) X 10*3/uL Eosinophils # 0.01 L (0.04-0.35) X 10*3/uL Sodium (137-145) mmol/L BUN (7-17) mg/dL Creatinine (0.52-1.04) mg/dL Glucose (74-99) mg/dL POC Glucose (mg/dL) 509 H* 241 H (70-110) mg/dL Microbiology - Last 24 Hours (Table) 05/24/24 17:50 Anaerobic Culture - Final Leg - Left 05/24/24 17:55 Anaerobic Culture - Final Leg - Right Corynebacterium striatum group Assessment and Plan (1) Stage IV pressure ulcer of sacral region Current Visit: Yes Status: Acute Code(s): L89.154 - PRESSURE ULCER OF SACRAL REGION, STAGE 4 SNOMED Code(s): 04110579961674 (2) Open wound of both lower extremities Current Visit: Yes Status: Acute Code(s): S81.801A - UNSPECIFIED OPEN WOUND, RIGHT LOWER LEG, INITIAL ENCOUNTER; S81.802A - UNSPECIFIED OPEN WOUND, LEFT LOWER LEG, INITIAL ENCOUNTER SNOMED Code(s): 20048275 (3) Bacteremia Current Visit: Yes Status: Acute Code(s): R78.81 - BACTEREMIA SNOMED Code(s): 9933408 Plan: 1patient with infected sacral pressure ulcer stage IV with a local culture po sitive for MSSA Pseudomonas and Klebsiella patient is covered with cefepime and Flagyl 2-positive blood culture with gram-positive cocci still waiting for final ID covered with the vancomycin dosing while Watching her creatinine closely 3-bilateral lower extremity pressure ulcer patient is status post surgical debridement and cultures currently growing MRSA and corynebacterium 4- patient to continue with vancomycin along with cefepime and Flagyl plan will be at least 5 weeks of antibiotics on discharge Dictation was produced using [employer] dictation software. please excuse any grammatical, word or spelling errors. Time with Patient: Less than 30
--- NOTE | 2024-05-30 00:30 | P.PN ---
Subjective Progress Note Date: 05/28/24 This is a 64-year-old female who has been at [facility] and followed by Dr. Mcpherson while there. Comes in for an infected sacral ulcer with culture showing MSSA, Klebsiella and Pseudomonas. She has gram positive blood cultures. Also with extensive lower extremity wounds. Patient is continued on a combination of IV cefepime IV vancomycin and oral Flagyl with ID and surgery following closely. Patient has undergone vascular debridement of the sacral wound. She does need a PICC line for outpatient antibiotic therapy. Continues on Santyl and local wound care of the sacrum. CT of the abdomen on the did reveal fecal impaction yesterday patient had received dulcolax and soap suds enema and now she has been moving her bowels. 05/22/2024 Patient seen and evaluated in follow-up today with infectious disease and general surgery following. Patient maintained on antibiotics per infectious disease and has been awaiting repeat blood culture results to be finalized to determine discharge antibiotics. Patient was evaluated by vascular surgery last week and recommend outpatient follow-up if the bilateral heel and foot wounds are not healing and suggest possibly bilateral AKA in the outpatient setting. Family is concerned about her heel wounds not being addressed and how well they transport her back and forth from vascular surgery clinic. Plan is for patient to return to [facility] and currently awaiting cultures and IV antibiotic recommendations per ID. Patient is afebrile, denies chest pain or shortness of breath and reports the breathing treatments are helping. Patient is on bowel regimen and will continue as patient is passing her bowels. Blood sugars are mildly elevated although dropped drastically overnight and will transition long- acting to daily and continue with sliding scale. Encouraged oral intake and will need PT/OT therapy evaluation as well as case management on the case as patient plans on returning to [facility]. 05/23/2024 Patient is seen in follow-up today with family at the bedside and discussed further with Dr. Horn's group from vascular surgery and plans for possible bilateral lower extremity debridement and hopeful for deep tissue cultures on Wednesday. Patient will be n.p.o. and recommend monitoring sugars closely. Blood sugars have been elevated today and insulins have been adjusted. Patient is afebrile with no reports of chest pain or shortness of breath. Patient does have a PICC line and will be continued on IV antibiotics. Infectious diseases following. 05/24/2024 Patient is seen in follow-up today made n.p.o. as patient is scheduled to undergo debridement with Dr. Horn of bilateral lower chavez area and will await deep cultures. This was discussed with Dr. Horn prior to surgical intervention. Long discussion was had about overall prognosis and probable still need for bilateral AKA down the line although patient unwilling at this time and willing to proceed with cultures. Patient does have a PICC line with infectious disease following and will await deep cultures to determine discharge antibiotics. Plan is for patient to return to [facility] on discharge. Continue monitoring sugars closely as they are extremely uncontrolled. 05/25/2024 Patient is seen this morning status post debridement of bilateral lower extremity shins with Dr. Horn. Awaiting cultures to determine discharge antibiotics and patient is maintained on antibiotics per ID recommendations with a PICC line. Plan will be for her to return to [facility] with antibiotic therapy and wound care. Patient's blood sugars have been up and down and will continue current regimen and adjust as needed. Patient is not compliant with diet and diabetic choices. Patient is afebrile and white count mildly trending down and will continue current regimen. Recommend frequent position changes and offloading of the sacral area as patient continues to report severe pain. 05/26/2024 Patient evaluated today status post debridement day 2 of the bilateral lower extremity shins with dr. Horn. Patient is awaiting wound cultures preliminary showing staph aureus. Potassium today 3.4. White blood cell count 11.80. Blood glucose remains elevated ranging 250-400s. 05/27/2024 Patient is lying in the bed. Awake and alert. Currently on room air. No fever no chills. No cough or sputum production. No nausea vomiting or diarrhea. Denied any worsening pain in the legs. Laboratory data reviewed from yesterday. Vancomycin trough level is 14.3. Cultures from 05/24/2024 Corynebacterium and MRSA. Currently on vancomycin.. Patient is s/p debridement of the bilateral lower extremity chavez region by Dr. Horn. Postoperative day 3 05/28/2024 Patient is resting in bed. Awake alert and oriented x 3. Afebrile. Currently on room air. No complaints of chest pain or shortness of breath. No nausea vomiting abdominal pain. Bilateral lower extremity wounds are wrapped. Remains on IV antibiotics. Laboratory data reviewed. Blood sugar was 377 this morning. Continued on insulin regimen. Review of Systems Constitutional: Denied any fatigue denied any fever. Cardio vascular: denied any chest pain, palpitations Gastrointestinal: denied any nausea, vomiting, diarrhea, patient reports is passing bowels Pulmonary: Denied any shortness of breath cough Neurologic denied any new focal deficits, reports continued diffuse weakness, reports continued discomfort of the lower extremities All inpatient medications were reviewed and appropriate changes in these medic ations as dictated in the interval history and assessment and plan. PHYSICAL EXAMINATION: GENERAL: The patient is sleeping but easily arousable, alert and oriented x3, not in any acute distress. Well developed, thin built, elderly appearing, cachectic HEENT: Pupils are round and equally reacting to light. EOMI. No scleral icterus. No conjunctival pallor. Normocephalic, atraumatic. No pharyngeal erythema. No thyromegaly. CARDIOVASCULAR: S1 and S2 present. No murmurs, rubs, or gallops. PULMONARY: Diminished breath sounds bilaterally otherwise chest is clear to auscultation, no wheezing or crackles. ABDOMEN: Soft, nontender, nondistended, normoactive bowel sounds. No palpable organomegaly. Having bowel movements now. Thin MUSCULOSKELETAL: No joint swelling or deformity. EXTREMITIES: No cyanosis, clubbing, or pedal edema. Offloading boots noted bilaterally to lower heels NEUROLOGICAL: Gross neurological examination did not reveal any focal deficits. Diffusely weak SKIN: No rashes. Stage IV sacral wound bilateral extensive lower extremity wounds currently dressed. There is some necrotic tissue and sloughing noted, surgical dressings are dry and intact of bilateral lower chavez Assessment -Infected stage IV sacral pressure injury status post surgical debridement and continues on [facility] local wound care. Wound cultures from 05/24/2024 showed Corynebacterium and MRSA. -Leukocytosis, possibly secondary to above, trending down -Bilateral lower extremity wound on the calfs down to the tendon may require amputation however vascular would like patient to be opitimized medically and plan for amputations outpatient if patient and family decide to go this route. Patient is status post surgical debridement with vascular surgery on 05/24/2024 and currently awaiting cultures -Gram positive cocci bacteremia, repeat cultures have been negative -Severe peripheral arterial disease; Bilateral SFA occlusion, severe STARCH DUMPER, iliac stenosis and severe intrapopliteal stenosis left greater than right -Fecal impaction as noted on CT imaging. Improved, patient having bowel movements now -Chronic medical debility and non-weight bearing. -Hx of COPD with no acute exacerbation -Diabetes Mellitus type 2 with hyperglycemia and hypoglycemia -Hx of hypertension -Hyperlipidemia -Hx of PE in the past not currently on oral anticoagulation -Moderate protein calorie malnutrition -Chronic nicotine use GI prophylaxis: IV protonix DVT prophylaxis: Subcu heparin Full Code Plan Continue IV antibiotics per ID recommendations and repeat blood cultures per micro lab have remained negative for 5 days. Wound cultures growing MRSA and Corynebacterium. Patient will be continued on vancomycin and cefepime. Continue local wound care Vascular has evaluated the patient and recommends follow up outpatient and will need medical clearance for leg amputations, family is concerned on getting her back and forth to appointments. Patient is status post surgical debridement with deep tissue cultures on 05/24/2024. Follow-up final blood culture report. Continue on bowel regimen as patient is now having bowel movements. Continue accuchecks ACHS and sliding scale and will adjust insulins as patient has been having elevated blood sugars during the day and extremely low blood sugars overnight. Continue oral lasix Continue nicotine patch Repeat blood work in the AM, white count remains elevated Patient remains afebrile and will follow-up on repeat labs in the morning Patient has received a PICC line and will be awaiting deep cultures from lower extremities to determine discharge antibiotics Plan is for patient to return to [facility] on discharge Objective - Vital Signs Vital signs: Vital Signs Temp 98.1 F 05/28/24 00:59 Pulse 87 05/28/24 11:26 Resp 18 05/28/24 07:09 BP 157/64 05/28/24 07:09 Pulse Ox 97 05/28/24 07:09 FiO2 Intake & Output 05/27/24 05/28/24 05/28/24 18:59 06:59 18:59 Intake Total 250 Output Total 1000 1050 Balance -750 -1050 Intake: Intake, IV Titration 250 Amount Vancomycin 500 mg In 250 Sodium Chloride 0.9% 250 ml @ 125 mls/hr IVPB Q8H [facility] Rx#:[id number] Output: Urine 1000 1050 Uretheral (Horn) 1000 Other: Voiding Method Indwelling Catheter Indwelling Catheter - Labs CBC & Chem 7: 05/29/24 04:03 05/29/24 04:03 Labs: Abnormal Lab Results - Last 24 Hours (Table) 05/27/24 05/27/24 05/28/24 Range/Units 17:12 20:32 05:43 Creatinine 0.21 L (0.52-1.04) mg/dL POC Glucose (mg/dL) 130 H 177 H (70-110) mg/dL 05/28/24 05/28/24 Range/Units 06:23 11:41 Creatinine (0.52-1.04) mg/dL POC Glucose (mg/dL) 377 H 139 H (70-110) mg/dL Microbiology - Last 24 Hours (Table) 05/24/24 17:55 Anaerobic Culture - Preliminary Leg - Right Corynebacterium striatum group
--- NOTE | 2024-05-30 00:31 | P.PN ---
Subjective Progress Note Date: 05/29/24 This is a 64-year-old female who has been at [facility] and followed by Dr. Mcpherson while there. Comes in for an infected sacral ulcer with culture showing MSSA, Klebsiella and Pseudomonas. She has gram positive blood cultures. Also with extensive lower extremity wounds. Patient is continued on a combination of IV cefepime IV vancomycin and oral Flagyl with ID and surgery following closely. Patient has undergone vascular debridement of the sacral wound. She does need a PICC line for outpatient antibiotic therapy. Continues on Santyl and local wound care of the sacrum. CT of the abdomen on the did reveal fecal impaction yesterday patient had received dulcolax and soap suds enema and now she has been moving her bowels. 05/22/2024 Patient seen and evaluated in follow-up today with infectious disease and general surgery following. Patient maintained on antibiotics per infectious disease and has been awaiting repeat blood culture results to be finalized to determine discharge antibiotics. Patient was evaluated by vascular surgery last week and recommend outpatient follow-up if the bilateral heel and foot wounds are not healing and suggest possibly bilateral AKA in the outpatient setting. Family is concerned about her heel wounds not being addressed and how well they transport her back and forth from vascular surgery clinic. Plan is for patient to return to [facility] and currently awaiting cultures and IV antibiotic recommendations per ID. Patient is afebrile, denies chest pain or shortness of breath and reports the breathing treatments are helping. Patient is on bowel regimen and will continue as patient is passing her bowels. Blood sugars are mildly elevated although dropped drastically overnight and will transition long- acting to daily and continue with sliding scale. Encouraged oral intake and will need PT/OT therapy evaluation as well as case management on the case as patient plans on returning to [facility]. 05/23/2024 Patient is seen in follow-up today with family at the bedside and discussed further with Dr. Horn's group from vascular surgery and plans for possible bilateral lower extremity debridement and hopeful for deep tissue cultures on Wednesday. Patient will be n.p.o. and recommend monitoring sugars closely. Blood sugars have been elevated today and insulins have been adjusted. Patient is afebrile with no reports of chest pain or shortness of breath. Patient does have a PICC line and will be continued on IV antibiotics. Infectious diseases following. 05/24/2024 Patient is seen in follow-up today made n.p.o. as patient is scheduled to undergo debridement with Dr. Horn of bilateral lower chavez area and will await deep cultures. This was discussed with Dr. Horn prior to surgical intervention. Long discussion was had about overall prognosis and probable still need for bilateral AKA down the line although patient unwilling at this time and willing to proceed with cultures. Patient does have a PICC line with infectious disease following and will await deep cultures to determine discharge antibiotics. Plan is for patient to return to [facility] on discharge. Continue monitoring sugars closely as they are extremely uncontrolled. 05/25/2024 Patient is seen this morning status post debridement of bilateral lower extremity shins with Dr. Horn. Awaiting cultures to determine discharge antibiotics and patient is maintained on antibiotics per ID recommendations with a PICC line. Plan will be for her to return to [facility] with antibiotic therapy and wound care. Patient's blood sugars have been up and down and will continue current regimen and adjust as needed. Patient is not compliant with diet and diabetic choices. Patient is afebrile and white count mildly trending down and will continue current regimen. Recommend frequent position changes and offloading of the sacral area as patient continues to report severe pain. 05/26/2024 Patient evaluated today status post debridement day 2 of the bilateral lower extremity shins with dr. Horn. Patient is awaiting wound cultures preliminary showing staph aureus. Potassium today 3.4. White blood cell count 11.80. Blood glucose remains elevated ranging 250-400s. 05/27/2024 Patient is lying in the bed. Awake and alert. Currently on room air. No fever no chills. No cough or sputum production. No nausea vomiting or diarrhea. Denied any worsening pain in the legs. Laboratory data reviewed from yesterday. Vancomycin trough level is 14.3. Cultures from 05/24/2024 Corynebacterium and MRSA. Currently on vancomycin.. Patient is s/p debridement of the bilateral lower extremity chavez region by Dr. Horn. Postoperative day 3 05/28/2024 Patient is resting in bed. Awake alert and oriented x 3. Afebrile. Currently on room air. No complaints of chest pain or shortness of breath. No nausea vomiting abdominal pain. Bilateral lower extremity wounds are wrapped. Remains on IV antibiotics. Laboratory data reviewed. Blood sugar was 377 this morning. Continued on insulin regimen. 05/29/2024 Patient is resting in the bed. Awake alert oriented x 3. Afebrile. No nausea vomiting abdominal pain or diarrhea. Continued on IV antibiotics of vancomycin and cefepime. ID is on board. Possible discharge to rehab with ID final recommendations. Laboratory data showed blood sugar went up to 548 this morning. Other laboratory showed WBC 12.8 hemoglobin 10.2 and platelets 444 sodium 129 potassium 4.4 chloride 101 bicarb is 24 BUN 19 and creatinine 0.24.. Review of Systems Constitutional: Denied any fatigue denied any fever. Cardio vascular: denied any chest pain, palpitations Gastrointestinal: denied any nausea, vomiting, diarrhea, patient reports is passing bowels Pulmonary: Denied any shortness of breath cough Neurologic denied any new focal deficits, reports continued diffuse weakness, reports continued discomfort of the lower extremities All inpatient medications were reviewed and appropriate changes in these medications as dictated in the interval history and assessment and plan. PHYSICAL EXAMINATION: GENERAL: The patient is sleeping but easily arousable, alert and oriented x3, not in any acute distress. Well developed, thin built, elderly appearing, cachectic HEENT: Pupils are round and equally reacting to light. EOMI. No scleral icterus. No conjunctival pallor. Normocephalic, atraumatic. No pharyngeal erythema. No thyromegaly. CARDIOVASCULAR: S1 and S2 present. No murmurs, rubs, or gallops. PULMONARY: Diminished breath sounds bilaterally otherwise chest is clear to auscultation, no wheezing or crackles. ABDOMEN: Soft, nontender, nondistended, normoactive bowel sounds. No palpable organomegaly. Having bowel movements now. Thin MUSCULOSKELETAL: No joint swelling or deformity. EXTREMITIES: No cyanosis, clubbing, or pedal edema. Offloading boots noted bilaterally to lower heels NEUROLOGICAL: Gross neurological examination did not reveal any focal deficits. Diffusely weak SKIN: No rashes. Stage IV sacral wound bilateral extensive lower extremity wounds currently dressed. There is some necrotic tissue and sloughing noted, surgical dressings are dry and intact of bilateral lower chavez Assessment -Infected stage IV sacral pressure injury status post surgical debridement and continues on santyl local wound care. Wound cultures from 05/24/2024 showed Corynebacterium and MRSA. -Leukocytosis, possibly secondary to above, trending down -Bilateral lower extremity wound on the calfs down to the tendon may require amputation however vascular would like patient to be opitimized medically and plan for amputations outpatient if patient and family decide to go this route. Patient is status post surgical debridement with vascular surgery on 05/24/2024 and currently awaiting cultures -Gram positive cocci bacteremia, repeat cultures have been negative -Severe peripheral arterial disease; Bilateral SFA occlusion, severe COLOR CHECKER, iliac stenosis and severe intrapopliteal stenosis left greater than right -Fecal impaction as noted on CT imaging. Improved, patient having bowel movements now -Chronic medical debility and non-weight bearing. -Hx of COPD with no acute exacerbation -Diabetes Mellitus type 2 with hyperglycemia and hypoglycemia -Hx of hypertension -Hyperlipidemia -Hx of PE in the past not currently on oral anticoagulation -Moderate protein calorie malnutrition -Chronic nicotine use GI prophylaxis: IV protonix DVT prophylaxis: Subcu heparin Full Code Plan Continue IV antibiotics per ID recommendations and repeat blood cultures per micro lab have remained negative for 5 days. Wound cultures growing MRSA and Corynebacterium. Patient will be continued on vancomycin and cefepime. Continue local wound care Vascular has evaluated the patient and recommends follow up outpatient and will need medical clearance for leg amputations, family is concerned on getting her back and forth to appointments. Patient is status post surgical debridement with deep tissue cultures on 05/24/2024. Follow-up final blood culture report. Continue on bowel regimen as patient is now having bowel movements. Continue accuchecks ACHS and sliding scale and will adjust insulins as patient has been having elevated blood sugars during the day and extremely low blood sugars overnight. Continue oral lasix Continue nicotine patch Repeat blood work in the AM, white count remains elevated Patient remains afeb rile and will follow-up on repeat labs in the morning Patient has received a PICC line and will be awaiting deep cultures from lower extremities to determine discharge antibiotics Plan is for patient to return to [facility] on discharge Objective - Vital Signs Vital signs: Vital Signs Temp 97.6 F 05/29/24 20:00 Pulse 90 05/29/24 20:13 Resp 18 05/29/24 13:49 BP 148/84 05/29/24 20:00 Pulse Ox 99 05/29/24 20:00 FiO2 Intake & Output 05/29/24 05/29/24 05/30/24 06:59 18:59 06:59 Output Total 1999 2099 Balance -1999 Output: Urine 1999 2099 Other: Voiding Method Indwelling Catheter Indwelling Catheter # Bowel Movements 2 - Labs CBC & Chem 7: 05/29/24 04:03 05/29/24 04:03 Labs: Abnormal Lab Results - Last 24 Hours (Table) 05/29/24 05/29/24 05/29/24 Range/Units 04:03 04:03 06:37 WBC 12.84 H (4.50-10.00) X 10*3/uL RBC 3.57 L (4.10-5.20) X 10*6/uL Hgb 10.2 L (12.0-15.0) g/dL Hct 33.1 L (37.2-46.3) % MCHC 30.8 L (32.0-37.0) g/dL RDW 18.6 H (11.5-14.5) % Plt Count 444 H (140-440) X 10*3/uL Immature Gran # 0.17 H (0.00-0.04) X 10*3/uL Neutrophils # 11.54 H (1.80-7.70) X 10*3/uL Lymphocytes # 0.69 L (0.90-5.00) X 10*3/uL Eosinophils # 0.01 L (0.04-0.35) X 10*3/uL Sodium 129 L (137-145) mmol/L BUN 19 H (7-17) mg/dL Creatinine 0.24 L (0.52-1.04) mg/dL Glucose 548 H* (74-99) mg/dL POC Glucose (mg/dL) 509 H* (70-110) mg/dL 05/29/24 05/29/24 05/29/24 Range/Units 11:21 17:04 21:32 WBC (4.50-10.00) X 10*3/uL RBC (4.10-5.20) X 10*6/uL Hgb (12.0-15.0) g/dL Hct (37.2-46.3) % MCHC (32.0-37.0) g/dL RDW (11.5-14.5) % Plt Count (140-440) X 10*3/uL Immature Gran # (0.00-0.04) X 10*3/uL Neutrophils # (1.80-7.70) X 10*3/uL Lymphocytes # (0.90-5.00) X 10*3/uL Eosinophils # (0.04-0.35) X 10*3/uL Sodium (137-145) mmol/L BUN (7-17) mg/dL Creatinine (0.52-1.04) mg/dL Glucose (74-99) mg/dL POC Glucose (mg/dL) 241 H 126 H 247 H (70-110) mg/dL
[2024-05-30 05:43] LABS: Glucose,Whole Blood 307 mg/dL (70-110)
[2024-05-30 09:00] LABS: Basophils % (A) 0.9 %; Eosinophils # (A) 0.04 X 10*3/uL (0.04-0.35); Eosinophils % (A) 0.4 %; HCT 33.7 % (37.2-46.3); HGB 10.4 g/dL (12.0-15.0); Lymphocytes # (A) 1.45 X 10*3/uL (0.90-5.00); MCH 28.3 pg (27.0-32.0); MCHC 30.9 g/dL (32.0-37.0); MCV 91.8 FL (80.0-97.0); Mean Platelet Volume 10.2 FL (9.5-12.2); Monocytes % (A) 4.5 %; NRBC Per 100 WBC 0 X 10*3/uL (0.00-0.01); Neutrophils # (A) 8.92 X 10*3/uL (1.80-7.70); Neutrophils % (A) 79.6 %; Platelet Count 389 X 10*3/uL (140-440); RBC 3.67 X 10*6/uL (4.10-5.20); RDW 18.6 % (11.5-14.5); WBC 11.19 X 10*3/uL (4.50-10.00)
--- NOTE | 2024-05-30 10:01 | P.PN ---
Subjective Progress Note Date: 05/30/24 Principal diagnosis: Bilateral lower extremity wounds Patient seen and examined today as a follow-up. No acute changes through the night. Plan is for discharge to subacute rehab today or possibly tomorrow according to the patient. No new complaints. Wound cultures resulted, MRSA and Corynebacterium striatum group Objective - Vital Signs Vital signs: Vital Signs Temp 97.3 F L 05/30/24 07:39 Pulse 80 05/30/24 07:39 Resp 16 05/30/24 07:39 BP 167/88 05/30/24 07:39 Pulse Ox 98 05/30/24 07:39 FiO2 Intake & Output 05/29/24 05/30/24 05/30/24 18:59 06:59 18:59 Output Total 2100 500 Balance -2100 -500 Output: Urine 2100 500 Other: Voiding Method Indwelling Catheter Indwelling Catheter # Bowel Movements 2 - Exam General appearance: The patient is alert, oriented, appears in no acute distress. HET: Head is normocephalic and atraumatic. Pupils are equal and reactive. Neck: Supple. Abdomen: Soft, nondistended. Extremities: Bilateral lower extremities with dressings clean dry and intact. Soft green offloading boots in place. Muscle atrophy of the lower extremities Neurological: Alert and oriented. - Labs CBC & Chem 7: 05/30/24 02:56 05/29/24 04:03 Labs: Abnormal Lab Results - Last 24 Hours (Table) 05/29/24 05/29/24 05/29/24 Range/Units 04:03 11:21 17:04 WBC 12.84 H (4.50-10.00) X 10*3/uL RBC 3.57 L (4.10-5.20) X 10*6/uL Hgb 10.2 L (12.0-15.0) g/dL Hct 33.1 L (37.2-46.3) % MCHC 30.8 L (32.0-37.0) g/dL RDW 18.6 H (11.5-14.5) % Plt Count 444 H (140-440) X 10*3/uL Immature Gran # 0.17 H (0.00-0.04) X 10*3/uL Neutrophils # 11.54 H (1.80-7.70) X 10*3/uL Lymphocytes # 0.69 L (0.90-5.00) X 10*3/uL Eosinophils # 0.01 L (0.04-0.35) X 10*3/uL POC Glucose (mg/dL) 241 H 126 H (70-110) mg/dL 05/29/24 05/30/24 05/30/24 Range/Units 21:32 02:56 05:41 WBC 11.19 H (4.50-10.00) X 10*3/uL RBC 3.67 L (4.10-5.20) X 10*6/uL Hgb 10.4 L (12.0-15.0) g/dL Hct 33.7 L (37.2-46.3) % MCHC 30.9 L (32.0-37.0) g/dL RDW 18.6 H (11.5-14.5) % Plt Count (140-440) X 10*3/uL Immature Gran # 0.18 H (0.00-0.04) X 10*3/uL Neutrophils # 8.92 H (1.80-7.70) X 10*3/uL Lymphocytes # (0.90-5.00) X 10*3/uL Eosinophils # (0.04-0.35) X 10*3/uL POC Glucose (mg/dL) 247 H 307 H (70-110) mg/dL Assessment and Plan Assessment: 1. Bilateral lower extremity chronic wounds status post debridement 2. Malnutrition 3. Lower extremity weakness, nonambulatory 4. Sacral decubitus ulcer Plan: 1. Continue local wound care as ordered 2. Antibiotics per recommendations from ID 3. Patient to follow-up with vascular surgery in outpatient setting Thank you for this consultation patient is cleared from vascular surgery for discharge. The impression and plan of care has been dictated as directed. I performed a history and examination of this patient, discussed the same with the dictator. I agree with the dictator's note ,documented as a scribe. Any additional findings or plans will be noted.
[2024-05-30 10:57] LABS: BUN/Creat Ratio 65.33 Ratio (12.00-20.00); Blood Urea Nitrogen 19.6 mg/dL (9.0-27.0); Calcium 8.5 mg/dL (8.7-10.3); Carbon Dioxide 25.7 mmol/L (21.6-31.8); Chloride 100 mmol/L (96-109); Glucose 370 mg/dL (70-110); Potassium 4.3 mmol/L (3.5-5.5); Sodium 136 mmol/L (135-145)
[2024-05-30 11:50] LABS: Glucose,Whole Blood 192 mg/dL (70-110)
[2024-05-30] MEDS: SODIUM CHLORIDE 0.9% IVPB SCH (12:49)
[2024-05-30] MEDS: DAPTOMYCIN IVPB SCH (12:49)
--- NOTE | 2024-05-30 14:46 | P.PN ---
Subjective Progress Note Date: 05/30/24 Principal diagnosis: Reason for follow-up is sacral pressure ulcer bilateral lower extremity wound and bacteremia Patient is a 64-year-old female with multiple comorbidities initial presentation to the hospital with worsening sacral wound also have a positive blood culture and extensive wound to bilateral lower extremity patient is status post bedside debridement of the sacral wound.Patient is status post sharp excisional debridement of bilateral lower extremity wound and deep cultures completed on 05/24/2024 On today's evaluation that is 05/30/2024, Patient is afebrile patient is currently on room air and denies having any shortness of breath, the patient denies any chest pain or cough, the patient denies any nausea vomiting did not have any abdominal pain and no diarrhea denies any worsening pain to bilateral lower extremity wound. The patient white count is around 11.19, creatinine 0.3 left leg wound culture also growing VRE Objective - Vital Signs Vital signs: Vital Signs Temp 97.3 F L 05/30/24 07:39 Pulse 80 05/30/24 09:49 Resp 16 05/30/24 07:39 BP 167/88 05/30/24 07:39 Pulse Ox 98 05/30/24 07:39 FiO2 Intake & Output 05/29/24 05/30/24 05/30/24 18:59 06:59 18:59 Output Total 2100 500 Balance -2100 -500 Output: Urine 2100 500 Other: Voiding Method Indwelling Catheter Indwelling Catheter # Bowel Movements 2 - Exam GENERAL DESCRIPTION: Middle-age female lying in bed in no distress RESPIRATORY SYSTEM: Unlabored breathing , decreased breath sounds at bases HEART: S1 S2 regular rate and rhythm , ABDOMEN: Soft , no tenderness EXTREMITIES: Bilateral lower extremity wounds are currently dressed no drainage on the dressing - Labs CBC & Chem 7: 05/30/24 02:56 05/30/24 02:56 Labs: Abnormal Lab Results - Last 24 Hours (Table) 05/29/24 05/29/24 05/29/24 Range/Units 04:03 17:04 21:32 WBC 12.84 H (4.50-10.00) X 10*3/uL RBC 3.57 L (4.10-5.20) X 10*6/uL Hgb 10.2 L (12.0-15.0) g/dL Hct 33.1 L (37.2-46.3) % MCHC 30.8 L (32.0-37.0) g/dL RDW 18.6 H (11.5-14.5) % Plt Count 444 H (140-440) X 10*3/uL Immature Gran # 0.17 H (0.00-0.04) X 10*3/uL Neutrophils # 11.54 H (1.80-7.70) X 10*3/uL Lymphocytes # 0.69 L (0.90-5.00) X 10*3/uL Eosinophils # 0.01 L (0.04-0.35) X 10*3/uL Creatinine (0.6-1.5) mg/dL BUN/Creatinine Ratio (12.00-20.00) Ratio Glucose (70-110) mg/dL POC Glucose (mg/dL) 126 H 247 H (70-110) mg/dL Calcium (8.7-10.3) mg/dL 05/30/24 05/30/24 05/30/24 Range/Units 02:56 02:56 05:41 WBC 11.19 H (4.50-10.00) X 10*3/uL RBC 3.67 L (4.10-5.20) X 10*6/uL Hgb 10.4 L (12.0-15.0) g/dL Hct 33.7 L (37.2-46.3) % MCHC 30.9 L (32.0-37.0) g/dL RDW 18.6 H (11.5-14.5) % Plt Count (140-440) X 10*3/uL Immature Gran # 0.18 H (0.00-0.04) X 10*3/uL Neutrophils # 8.92 H (1.80-7.70) X 10*3/uL Lymphocytes # (0.90-5.00) X 10*3/uL Eosinophils # (0.04-0.35) X 10*3/uL Creatinine 0.3 L (0.6-1.5) mg/dL BUN/Creatinine Ratio 65.33 H (12.00-20.00) Ratio Glucose 370 H (70-110) mg/dL POC Glucose (mg/dL) 307 H (70-110) mg/dL Calcium 8.5 L (8.7-10.3) mg/dL 05/30/24 Range/Units 11:41 WBC (4.50-10.00) X 10*3/uL RBC (4.10-5.20) X 10*6/uL Hgb (12.0-15.0) g/dL Hct (37.2-46.3) % MCHC (32.0-37.0) g/dL RDW (11.5-14.5) % Plt Count (140-440) X 10*3/uL Immature Gran # (0.00-0.04) X 10*3/uL Neutrophils # (1.80-7.70) X 10*3/uL Lymphocytes # (0.90-5.00) X 10*3/uL Eosinophils # (0.04-0.35) X 10*3/uL Creatinine (0.6-1.5) mg/dL BUN/Creatinine Ratio (12.00-20.00) Ratio Glucose (70-110) mg/dL POC Glucose (mg/dL) 192 H (70-110) mg/dL Calcium (8.7-10.3) mg/dL Microbiology - Last 24 Hours (Table) 05/24/24 17:50 Gram Stain - Final Leg - Left Wound Culture - Final Staph aureus ssp aureus Enterococcus faecium VRE Assessment and Plan (1) Stage IV pressure ulcer of sacral region Current Visit: Yes Status: Acute Code(s): L89.154 - PRESSURE ULCER OF SACRAL REGION, STAGE 4 SNOMED Code(s): 13803323579971 (2) Open wound of both lower extremities Current Visit: Yes Status: Acute Code(s): S81.801A - UNSPECIFIED OPEN WOUND, RIGHT LOWER LEG, INITIAL ENCOUNTER; S81.802A - UNSPECIFIED OPEN WOUND, LEFT LOWER LEG, INITIAL ENCOUNTER SNOMED Code(s): 97642770 (3) Bacteremia Current Visit: Yes Status: Acute Code(s): R78.81 - BACTEREMIA SNOMED Code(s): 4937779 Plan: 1patient with infected sacral pressure ulcer stage IV with a local culture positive for MSSA Pseudomonas and Klebsiella patient is covered with cefepime and Flagyl 2-positive blood culture with gram-positive cocci still waiting for final ID covered with the vancomycin dosing while Watching her creatinine closely 3-bilateral lower extremity pressure ulcer patient is status post surgical debridement and cultures currently growing MRSA and and also VRE that is resistant to daptomycin 4- patient to continue with cefepime and Flagyl on the basis of previous cultures from her sacral wound now with a light culture also growing VRE which unfortunately is resistant to daptomycin oral option is linezolid patient is on Lexapro has to be discontinued as we do not have any other option to treat this patient and will start the patient on Zyvox and monitor clinical course closely Dictation was produced using [employer] dictation software. please excuse any grammatical, word or spelling errors. Time with Patient: Greater than 30
[2024-05-30 17:39] LABS: Glucose,Whole Blood 145 mg/dL (70-110)
[2024-05-30] MEDS: LINEZOLID 600 MG TAB PO SCH (17:45)
[2024-05-30 21:24] LABS: Glucose,Whole Blood 144 mg/dL (70-110)
[2024-05-31] MEDS ORDERED: VANCOMYCIN TROUGH DUE 1 EACH MISC MISCELLANE ONE (05:00)
[2024-05-31 06:04] LABS: Glucose,Whole Blood 242 mg/dL (70-110)
--- NOTE | 2024-05-31 11:18 | P.PN ---
Subjective Progress Note Date: 05/31/24 Principal diagnosis: Bilateral lower extremity wounds Patient seen and examined today as a follow-up. No acute changes through the night. Plan is for discharge to subacute rehab home once cleared by ID. No new complaints. Wound cultures resulted, MRSA and Corynebacterium striatum group, staff aureus and Enterococcus faecium VRE. Apparently ID is needing to change medications due to antibiotic resistance and patient's previous medication and interaction. Objective - Vital Signs Vital signs: Vital Signs Temp 97.6 F 05/31/24 03:57 Pulse 84 05/31/24 03:57 Resp 17 05/31/24 03:57 BP 158/87 05/31/24 03:57 Pulse Ox 100 05/31/24 03:57 FiO2 Intake & Output 05/30/24 05/31/24 05/31/24 18:59 06:59 18:59 Intake Total 1275 240 Output Total 800 Balance 1275 -560 Intake: Oral 1275 240 Output: Urine 800 Other: Voiding Method Indwelling Catheter Indwelling Catheter - Exam General appearance: The patient is alert, oriented, appears in no acute distress. HET: Head is normocephalic and atraumatic. Pupils are equal and reactive. Neck: Supple. Abdomen: Soft, nondistended. Extremities: Bilateral lower extremities with dressings clean dry and intact. Soft green offloading boots in place. Muscle atrophy of the lower extremities Neurological: Alert and oriented. - Labs CBC & Chem 7: 05/30/24 02:56 05/30/24 02:56 Labs: Abnormal Lab Results - Last 24 Hours (Table) 05/30/24 05/30/24 05/30/24 Range/Units 02:56 11:41 17:38 Creatinine 0.3 L (0.6-1.5) mg/dL BUN/Creatinine Ratio 65.33 H (12.00-20.00) Ratio Glucose 370 H (70-110) mg/dL POC Glucose (mg/dL) 192 H 145 H (70-110) mg/dL Calcium 8.5 L (8.7-10.3) mg/dL 05/30/24 05/31/24 Range/Units 21:23 06:02 Creatinine (0.6-1.5) mg/dL BUN/Creatinine Ratio (12.00-20.00) Ratio Glucose (70-110) mg/dL POC Glucose (mg/dL) 144 H 242 H (70-110) mg/dL Calcium (8.7-10.3) mg/dL Microbiology - Last 24 Hours (Table) 05/24/24 17:50 Gram Stain - Final Leg - Left Wound Culture - Final Staph aureus ssp aureus Enterococcus faecium VRE Assessment and Plan Assessment: 1. Bilateral lower extremity chronic wounds status post debridement 2. Malnutrition 3. Lower extremity weakness, nonambulatory 4. Sacral decubitus ulcer Plan: 1. Continue local wound care as ordered 2. Antibiotics per recommendations from ID 3. Bilateral lower extremity debridement with skin substitute 4. Patient to follow-up with vascular surgery in outpatient setting Thank you for this consultation. The impression and plan of care has been dictated as directed. I performed a history and examination of this patient, discussed the same with the dictator. I agree with the dictator's note ,documented as a scribe. Any additional findings or plans will be noted.
[2024-05-31 12:04] LABS: Glucose,Whole Blood 191 mg/dL (70-110)
--- NOTE | 2024-05-31 13:35 | P.PN ---
Subjective Progress Note Date: 05/30/24 This is a 64-year-old female who has been at [facility] and followed by Dr. Mcpherson while there. Comes in for an infected sacral ulcer with culture showing MSSA, Klebsiella and Pseudomonas. She has gram positive blood cultures. Also with extensive lower extremity wounds. Patient is continued on a combination of IV cefepime IV vancomycin and oral Flagyl with ID and surgery following closely. Patient has undergone vascular debridement of the sacral wound. She does need a PICC line for outpatient antibiotic therapy. Continues on Santyl and local wound care of the sacrum. CT of the abdomen on the did reveal fecal impaction yesterday patient had received dulcolax and soap suds enema and now she has been moving her bowels. 05/22/2024 Patient seen and evaluated in follow-up today with infectious disease and general surgery following. Patient maintained on antibiotics per infectious disease and has been awaiting repeat blood culture results to be finalized to determine discharge antibiotics. Patient was evaluated by vascular surgery last week and recommend outpatient follow-up if the bilateral heel and foot wounds are not healing and suggest possibly bilateral AKA in the outpatient setting. Family is concerned about her heel wounds not being addressed and how well they transport her back and forth from vascular surgery clinic. Plan is for patient to return to [facility] and currently awaiting cultures and IV antibiotic recommendations per ID. Patient is afebrile, denies chest pain or shortness of breath and reports the breathing treatments are helping. Patient is on bowel regimen and will continue as patient is passing her bowels. Blood sugars are mildly elevated although dropped drastically overnight and will transition long- acting to daily and continue with sliding scale. Encouraged oral intake and will need PT/OT therapy evaluation as well as case management on the case as patient plans on returning to [facility]. 05/23/2024 Patient is seen in follow-up today with family at the bedside and discussed further with Dr. Horn's group from vascular surgery and plans for possible bilateral lower extremity debridement and hopeful for deep tissue cultures on Wednesday. Patient will be n.p.o. and recommend monitoring sugars closely. Blood sugars have been elevated today and insulins have been adjusted. Patient is afebrile with no reports of chest pain or shortness of breath. Patient does have a PICC line and will be continued on IV antibiotics. Infectious diseases following. 05/24/2024 Patient is seen in follow-up today made n.p.o. as patient is scheduled to undergo debridement with Dr. Hron of bilateral lower chavez area and will await deep cultures. This was discussed with Dr. Horn prior to surgical intervention. Long discussion was had about overall prognosis and probable still need for bilateral AKA down the line although patient unwilling at this time and willing to proceed with cultures. Patient does have a PICC line with infectious disease following and will await deep cultures to determine discharge antibiotics. Plan is for patient to return to [facility] on discharge. Continue monitoring sugars closely as they are extremely uncontrolled. 05/25/2024 Patient is seen this morning status post debridement of bilateral lower extremity shins with Dr. Horn. Awaiting cultures to determine discharge antibiotics and patient is maintained on antibiotics per ID recommendations with a PICC line. Plan will be for her to return to [facility] with antibiotic therapy and wound care. Patient's blood sugars have been up and down and will continue current regimen and adjust as needed. Patient is not compliant with diet and diabetic choices. Patient is afebrile and white count mildly trending down and will continue current regimen. Recommend frequent position changes and offloading of the sacral area as patient continues to report severe pain. 05/26/2024 Patient evaluated today status post debridement day 2 of the bilateral lower extremity shins with dr. Horn. Patient is awaiting wound cultures preliminary showing staph aureus. Potassium today 3.4. White blood cell count 11.80. Blood glucose remains elevated ranging 250-400s. 05/27/2024 Patient is lying in the bed. Awake and alert. Currently on room air. No fever no chills. No cough or sputum production. No nausea vomiting or diarrhea. Denied any worsening pain in the legs. Laboratory data reviewed from yesterday. Vancomycin trough level is 14.3. Cultures from 05/24/2024 Corynebacterium and MRSA. Currently on vancomycin.. Patient is s/p debridement of the bilateral lower extremity chavez region by Dr. Horn. Postoperative day 3 05/28/2024 Patient is resting in bed. Awake alert and oriented x 3. Afebrile. Currently on room air. No complaints of chest pain or shortness of breath. No nausea vomiting abdominal pain. Bilateral lower extremity wounds are wrapped. Remains on IV antibiotics. Laboratory data reviewed. Blood sugar was 377 this morning. Continued on insulin regimen. 05/29/2024 Patient is resting in the bed. Awake alert oriented x 3. Afebrile. No nausea vomiting abdominal pain or diarrhea. Continued on IV antibiotics of vancomycin and cefepime. ID is on board. Possible discharge to rehab with ID final recommendations. Laboratory data showed blood sugar went up to 548 this morning. Other laboratory showed WBC 12.8 hemoglobin 10.2 and platelets 444 sodium 129 potassium 4.4 chloride 101 bicarb is 24 BUN 19 and creatinine 0.24.. 05/30/2024 Patient is resting in the bed. Awake alert and oriented x 3. No complaints of chest pain or shortness of breath. Bilateral lower extremity wound pain is controlled. No fever. No other acute overnight issues. Patient is being continued on antibiotics. Wound cultures growing Corynebacterium species and MRSA and Enterococcus. Patient is on antibiotics now, cefepime and linezolid. And Flagyl. Laboratory data showed WBC 11.1 hemoglobin 10.4 and platelets 389 sodium 136 potassium 4.3 chloride 100 bicarb is 25.7 BUN 19.6 and creatinine 0.3 and blood sugar 370. ID and vascular surgery is on board. Review of Systems Constitutional: Denied any fatigue denied any fever. Cardio vascular: denied any chest pain, palpitations Gastrointestinal: denied any nausea, vomiting, diarrhea, patient reports is passing bowels Pulmonary: Denied any shortness of breath cough Neurologic denied any new focal deficits, reports continued diffuse weakness, reports continued discomfort of the lower extremities All inpatient medications were reviewed and appropriate changes in these medications as dictated in the interval history and assessment and plan. PHYSICAL EXAMINATION: GENERAL: The patient is sleeping but easily arousable, alert and oriented x3, not in any acute distress. Well developed, thin built, elderly appearing, cachectic HEENT: Pupils are round and equally reacting to light. EOMI. No scleral icterus. No conjunctival pallor. Normocephalic, atraumatic. No pharyngeal erythema. No thyromegaly. CARDIOVASCULAR: S1 and S2 present. No murmurs, rubs, or gallops. PULMONARY: Diminished breath sounds bilaterally otherwise chest is clear to auscultation, no wheezing or crackles. ABDOMEN: Soft, nontender, nondistended, normoactive bowel sounds. No palpable organomegaly. Having bowel movements now. Thin MUSCULOSKELETAL: No joint swelling or deformity. EXTREMITIES: No cyanosis, clubbing, or pedal edema. Offloading boots noted bilaterally to lower heels NEUROLOGICAL: Gross neurological examination did not reveal any focal deficits. Diffusely weak SKIN: No rashes. Stage IV sacral wound bilateral extensive lower extremity wounds currently dressed. There is some necrotic tissue and sloughing noted, surgical dressings are dry and intact of bilateral lower chavez Assessment -Infected stage IV sacral pressure injury status post surgical debridement and continues on santyl local wound care. Wound cultures from 05/24/2024 showed Corynebacterium and MRSA. Also growing Enterococcus/VRE. -Leukocytosis, possibly secondary to above, trending down -Bilateral lower extremity wound on the calfs down to the tendon may require amputation however vascular would like patient to be opitimized medically and plan for amputations outpatient if patient and family decide to go this route. 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 Improved, patient having bowel movements now -Chronic medical debility and non-weight bearing. -Hx of COPD with no acute exacerbation -Diabetes Mellitus type 2 with hyperglycemia and hypoglycemia -Hx of hypertension -Hyperlipidemia -Hx of PE in the past not currently on oral anticoagulation -Moderate protein calorie malnutrition -Chronic nicotine use GI prophylaxis: IV protonix DVT prophylaxis: Subcu heparin Full Code Plan Continue IV antibiotics per ID recommendations and repeat blood cultures per micro lab have remained negative for 5 days. Wound cultures growing MRSA and Corynebacterium. Patient will be continued on cefepime, Flagyl and Zyvox. Lexapro will be discontinued.. Continue local wound care Vascular has evaluated the patient and recommends follow up outpatient and will need medical clearance for leg amputations, family is concerned on getting her back and forth to appointments. Patient is status post surgical debridement with deep tissue cultures on 05/24/2024. Follow-up final blood culture report. Continue on bowel regimen as patient is now having bowel movements. Continue accuchecks ACHS and sliding scale and will adjust insulins as patient has been having elevated blood sugars during the day and extremely low blood sugars overnight. Continue oral lasix Continue nicotine patch Repeat blood work in the AM, white count remains elevated Patient remains afebrile and will follow-up on repeat labs in the morning Patient has received a PICC line and will be awaiting deep cultures from lower extremities to determine discharge antibiotics Plan is for patient to return to [facility] on discharge Objective - Vital Signs Vital signs: Vital Signs Temp 97.9 F 05/30/24 14:10 Pulse 86 05/30/24 16:55 Resp 17 05/30/24 14:10 BP 100/65 05/30/24 14:10 Pulse Ox 98 05/30/24 14:10 FiO2 Intake & Output 05/30/24 05/30/24 05/31/24 06:59 18:59 06:59 Intake Total 1275 Output Total 500 Balance -500 1275 Intake: Oral 1275 Output: Urine 500 Other: Voiding Method Indwelling Catheter Indwelling Catheter - Labs CBC & Chem 7: 05/30/24 02:56 05/30/24 02:56 Labs: Abnormal Lab Results - Last 24 Hours (Table) 05/30/24 05/30/24 05/30/24 Range/Units 02:56 02:56 05:41 WBC 11.19 H (4.50-10.00) X 10*3/uL RBC 3.67 L (4.10-5.20) X 10*6/uL Hgb 10.4 L (12.0-15.0) g/dL Hct 33.7 L (37.2-46.3) % MCHC 30.9 L (32.0-37.0) g/dL RDW 18.6 H (11.5-14.5) % Immature Gran # 0.18 H (0.00-0.04) X 10*3/uL Neutrophils # 8.92 H (1.80-7.70) X 10*3/uL Creatinine 0.3 L (0.6-1.5) mg/dL BUN/Creatinine Ratio 65.33 H (12.00-20.00) Ratio Glucose 370 H (70-110) mg/dL POC Glucose (mg/dL) 307 H (70-110) mg/dL Calcium 8.5 L (8.7-10.3) mg/dL 05/30/24 05/30/24 05/30/24 Range/Units 11:41 17:38 21:23 WBC (4.50-10.00) X 10*3/uL RBC (4.10-5.20) X 10*6/uL Hgb (12.0-15.0) g/dL Hct (37.2-46.3) % MCHC (32.0-37.0) g/dL RDW (11.5-14.5) % Immature Gran # (0.00-0.04) X 10*3/uL Neutrophils # (1.80-7.70) X 10*3/uL Creatinine (0.6-1.5) mg/dL BUN/Creatinine Ratio (12.00-20.00) Ratio Glucose (70-110) mg/dL POC Glucose (mg/dL) 192 H 145 H 144 H (70-110) mg/dL Calcium (8.7-10.3) mg/dL Microbiology - Last 24 Hours (Table) 05/24/24 17:50 Gram Stain - Final Leg - Left Wound Culture - Final Staph aureus ssp aureus Enterococcus faecium VRE
[2024-05-31 17:04] LABS: Glucose,Whole Blood 211 mg/dL (70-110)
[2024-05-31 21:23] LABS: Glucose,Whole Blood 343 mg/dL (70-110)
[2024-06-01 06:00] LABS: Glucose,Whole Blood 397 mg/dL (70-110)
--- NOTE | 2024-06-01 08:12 | P.PN ---
Subjective Progress Note Date: 05/31/24 Principal diagnosis: Reason for follow-up is sacral pressure ulcer bilateral lower extremity wound and bacteremia Patient is a 64-year-old female with multiple comorbidities initial presentation to the hospital with worsening sacral wound also have a positive blood culture and extensive wound to bilateral lower extremity patient is status post bedside debridement of the sacral wound.Patient is status post sharp excisional debridement of bilateral lower extremity wound and deep cultures completed on 05/24/2024 On today's evaluation that is 05/31/2024, patient has been afebrile, patient is breathing comfortably and is currently on room air, patient denies having any significant cough no chest pain shortness of breath, patient denies nausea vomiting or diarrhea and no abdominal pain and denies any worsening pain to bilateral lower extremity. No new lab has been repeated today Objective - Vital Signs Vital signs: Vital Signs Temp 97.5 F L 05/31/24 07:38 Pulse 88 05/31/24 12:30 Resp 17 05/31/24 07:38 BP 150/84 05/31/24 07:38 Pulse Ox 99 05/31/24 07:38 FiO2 Intake & Output 05/30/24 05/31/24 05/31/24 18:59 06:59 18:59 Intake Total 1275 240 Output Total 800 Balance 1275 -560 Intake: Oral 1275 240 Output: Urine 800 Other: Voiding Method Indwelling Catheter Indwelling Catheter Indwelling Catheter - Exam GENERAL DESCRIPTION: Middle-age female lying in bed in no distress RESPIRATORY SYSTEM: Unlabored breathing , decreased breath sounds at bases HEART: S1 S2 regular rate and rhythm , ABDOMEN: Soft , no tenderness EXTREMITIES: Bilateral lower extremity wounds are currently dressed no drainage on the dressing - Labs CBC & Chem 7: 05/30/24 02:56 05/30/24 02:56 Labs: Abnormal Lab Results - Last 24 Hours (Table) 05/30/24 05/30/24 05/31/24 Range/Units 17:38 21:23 06:02 POC Glucose (mg/dL) 145 H 144 H 242 H (70-110) mg/dL 05/31/24 Range/Units 12:03 POC Glucose (mg/dL) 191 H (70-110) mg/dL Microbiology - Last 24 Hours (Table) 05/24/24 17:50 Gram Stain - Final Leg - Left Wound Culture - Final Staph aureus ssp aureus Enterococcus faecium VRE Assessment and Plan (1) Stage IV pressure ulcer of sacral region Current Visit: Yes Status: Acute Code(s): L89.154 - PRESSURE ULCER OF SACRAL REGION, STAGE 4 SNOMED Code(s): 45894806843528 (2) Open wound of both lower extremities Current Visit: Yes Status: Acute Code(s): S81.801A - UNSPECIFIED OPEN WOUND, RIGHT LOWER LEG, INITIAL ENCOUNTER; S81.802A - UNSPECIFIED OPEN WOUND, LEFT LOWER LEG, INITIAL ENCOUNTER SNOMED Code(s): 67841850 (3) Bacteremia Current Visit: Yes Status: Acute Code(s): R78.81 - BACTEREMIA SNOMED Code(s): 0497030 Plan: 1patient with infected sacral pressure ulcer stage IV with a local culture positive for MSSA Pseudomonas and Klebsiella patient is covered with cefepime and Flagyl 2-positive blood culture with gram-positive cocci still waiting for final ID covered with the vancomycin dosing while Watching her creatinine closely 3-bilateral lower extremity pressure ulcer patient is status post surgical debridement and cultures currently growing MRSA and and also VRE that is resistant to daptomycin 4- patient to continue with cefepime and Flagyl on the basis of previous cultures from her sacral wound with a plan for 6-week course of treatment total 5-patient also grew VRE from lower extremity wounds per discussion with the family waiting for meeting with Dr. Horn regarding further treatment option and possible amputation continue with Zyvox for now Dictation was produced using [employer] dictation software. please excuse any gramma tical, word or spelling errors. Time with Patient: Less than 30
[2024-06-01 11:42] LABS: Glucose,Whole Blood 296 mg/dL (70-110)
[2024-06-01] MEDS: ONDANSETRON 4 MG/2 ML VIAL IVP STA (12:39)
[2024-06-01] MEDS: LACTATED RINGERS 1,000 ML BAG IV STA (12:40)
[2024-06-01] MEDS: IV FLUID CONTINUATION 1,000 ML IV ONE (12:44)
[2024-06-01 12:49] LABS: Glucose,Whole Blood 278 mg/dL (70-110)
[2024-06-01] MEDS: HYDROCORTISONE SUCCINATE 100 MG/2 ML VIAL IV STA (13:10)
[2024-06-01] MEDS ORDERED: PROPOFOL 10 MG/ML 20 ML VIAL IV ONE (13:21)
[2024-06-01] MEDS ORDERED: KETAMINE HCL IN 0.9 % NACL 50 MG/5 ML SYRINGE ONE (13:21)
[2024-06-01] MEDS ORDERED: fentaNYL (PF) 50 MCG/ML 2 ML AMP ONE (13:21)
[2024-06-01] MEDS ORDERED: MIDAZOLAM 2 MG/2 ML VIAL ONE (13:21)
[2024-06-01 14:31] LABS: Glucose,Whole Blood 209 mg/dL (70-110)
--- NOTE | 2024-06-01 14:43 | P.OP ---
Date of Procedure: 06/01/24 Description of Procedure: Description of Procedure: Preoperative diagnosis: Bilateral lower extremity wounds Postoperative diagnosis: Same Procedure: Sharp excisional debridement bilateral lower extremity wound Left leg 14 x 4 x 0.4 cm to bone Right posterior proximal 13 x 3 x 0.3 cm to bone Placement of skin substitute to bilateral lower extremities, PuraPly 1000 mg, 6 x 9 cm Surgeon: Citlalli Horn D.O. EBL: 5 cc IV fluids: See records Urine output: See records Drains: None Complications: None immediately apparent Condition: Stable to recovery Operative indication and findings: Patient is a 64-year-old female with severe back issues who is nonambulatory who has sustained issues with pressure ulce rations at her posterior legs who is requiring surgical debridement. Since she had bone exposed and still here in the hospital with plans to take her today for debridement and placement of skin substitute.. Risks and benefits were discussed. She seemingly understood and is willing to proceed. Procedure in detail: Patient was brought to the operative suite and placed in s lateral position. The bilateral lower extremities were prepped and draped in usual sterile fashion. A preprocedural timeout was performed, all parties were in agreement. Using a curette and starting with left lower extremity, all devitalized tissue was sharply excised until healthy appearing tissue. Approximately half of the 1000 mg PuraPly powder was placed in the left lower extremity and covered with half of the 6 x 9 cm sheet. It was sutured in place with Adaptic and chromic for securing. A dressing was placed. The same was then performed on the right lower extremity. Again both were debrided to the level of the bone. PuraPly was placed on the right lower extremity in similar fashion and secured. Dressings were placed. The patient tolerated the procedure well and was transferred to recovery in stable condition.
--- NOTE | 2024-06-01 15:45 | P.PN ---
Subjective Progress Note Date: 06/01/24 Principal diagnosis: Reason for follow-up is sacral pressure ulcer bilateral lower extremity wound and bacteremia Patient is a 64-year-old female with multiple comorbidities initial presentation to the hospital with worsening sacral wound also have a positive blood culture and extensive wound to bilateral lower extremity patient is status post bedside debridement of the sacral wound.Patient is status post sharp excisional debridement of bilateral lower extremity wound and deep cultures completed on 05/24/2024, patient is status post repeat sharp excisional debride ment of bilateral lower extremity wound completed on 06/01/2024. On today's evaluation that is 06/01/2024, Patient is afebrile this morning patient denies having any chest pain shortness of breath or cough, the patient is breathing comfortably and currently on room air, patient denies any abdominal pain no diarrhea no nausea no vomiting denies any worsening pain to bilateral lower extremity wound. No new lab has been obtained today Objective - Vital Signs Vital signs: Vital Signs Temp 98.0 F 06/01/24 14:24 Pulse 72 06/01/24 15:25 Resp 14 06/01/24 14:54 BP 158/87 06/01/24 14:54 Pulse Ox 100 06/01/24 14:54 FiO2 Intake & Output 05/31/24 06/01/24 06/01/24 18:59 06:59 18:59 Intake Total 100 700 Output Total 1000 1005 Balance 100 -1000 -305 Weight 45.813 kg 45.813 kg Intake: IV 600 Intake, IV Titration 100 100 Amount Cefepime 2 gm In Sodium 100 100 Chloride 0.9% 100 ml @ 25 mls/hr IVPB Q8H [facility] Rx#: [id number] Output: Urine 1000 1000 Uretheral (Horn) 1000 Estimated Blood Loss 5 Other: Voiding Method Indwelling Catheter Indwelling Catheter Indwelling Catheter - Exam GENERAL DESCRIPTION: Middle-age female lying in bed in no distress RESPIRATORY SYSTEM: Unlabored breathing , decreased breath sounds at bases HEART: S1 S2 regular rate and rhythm , ABDOMEN: Soft , no tenderness EXTREMITIES: Bilateral lower extremity wounds are currently dressed no drainage on the dressing - Labs CBC & Chem 7: 05/30/24 02:56 05/30/24 02:56 Labs: Abnormal Lab Results - Last 24 Hours (Table) 05/31/24 05/31/24 06/01/24 Range/Units 17:02 21:21 05:59 POC Glucose (mg/dL) 211 H 343 H 397 H (70-110) mg/dL 06/01/24 06/01/24 06/01/24 Range/Units 11:41 12:33 14:28 POC Glucose (mg/dL) 296 H 278 H 209 H (70-110) mg/dL Assessment and Plan (1) Stage IV pressure ulcer of sacral region Current Visit: Yes Status: Acute Code(s): L89.154 - PRESSURE ULCER OF SACRAL REGION, STAGE 4 SNOMED Code(s): 49264731308805 (2) Open wound of both lower extremities Current Visit: Yes Status: Acute Code(s): S81.801A - UNSPECIFIED OPEN WOUND, RIGHT LOWER LEG, INITIAL ENCOUNTER; S81.802A - UNSPECIFIED OPEN WOUND, LEFT LOWER LEG, INITIAL ENCOUNTER SNOMED Code(s): 55282784 (3) Bacteremia Current Visit: Yes Status: Acute Code(s): R78.81 - BACTEREMIA SNOMED Code(s): 5209904 Plan: 1patient with infected sacral pressure ulcer stage IV with a local culture positive for MSSA Pseudomonas and Klebsiella patient is covered with cefepime and Flagyl 2-positive blood culture with gram-positive cocci still waiting for final ID covered with the vancomycin dosing while Watching her creatinine closely 3-bilateral lower extremity pressure ulcer patient is status post surgical lesvia ridement and cultures currently growing MRSA and and also VRE that is resistant to daptomycin 4- patient to continue with cefepime and Flagyl on the basis of previous cultures from her sacral wound with a plan for 6-week course of treatment total 5-patient also grew VRE from lower extremity wounds patient is status post repeat debridement of the leg wounds on 06/01/2024, we will continue the patient on Zyvox Dictation was produced using [employer] dictation software. please excuse any grammatical, word or spelling errors. Time with Patient: Less than 30
[2024-06-01 16:35] LABS: Glucose,Whole Blood 254 mg/dL (70-110)
[2024-06-01 21:41] LABS: Glucose,Whole Blood 537 mg/dL (70-110)
[2024-06-01] MEDS: INSULIN ASPART (NovoLOG) 100 UNIT/ML VIAL SQ ONE (22:12)
[2024-06-02 06:36] LABS: Glucose,Whole Blood 249 mg/dL (70-110)
--- NOTE | 2024-06-02 11:13 | P.PN ---
Subjective Progress Note Date: 06/02/24 Principal diagnosis: Bilateral lower extremity wounds Patient is seen and examined today as a follow-up. Yesterday she went back to the operating room for debridement and skin substitute application. Today she is without any complaints. Dressings are intact. Objective - Vital Signs Vital signs: Vital Signs Temp 97.2 F L 06/02/24 02:00 Pulse 86 06/02/24 02:00 Resp 20 06/02/24 02:00 BP 118/70 06/02/24 02:00 Pulse Ox 97 06/02/24 02:00 FiO2 Intake & Output 06/01/24 06/02/24 06/02/24 18:59 06:59 18:59 Intake Total 800 Output Total 1005 Balance -205 Weight 45.813 kg Intake: IV 600 Intake, IV Titration 200 Amount Cefepime 2 gm In Sodium 200 Chloride 0.9% 100 ml @ 25 mls/hr IVPB Q8H [facility] Rx#: [id number] Output: Urine 1000 Estimated Blood Loss 5 Other: Voiding Method Indwelling Catheter Indwelling Catheter - Exam General appearance: The patient is alert, oriented, appears in no acute distress. HET: Head is normocephalic and atraumatic. Pupils are equal and reactive. Neck: Supple. Abdomen: Soft, nondistended. Extremities: Bilateral lower extremities with dressings clean dry and intact. Neurological: Alert and oriented. - Labs CBC & Chem 7: 05/30/24 02:56 05/30/24 02:56 Labs: Abnormal Lab Results - Last 24 Hours (Table) 06/01/24 06/01/24 06/01/24 Range/Units 11:41 12:33 14:28 POC Glucose (mg/dL) 296 H 278 H 209 H (70-110) mg/dL 06/01/24 06/01/24 06/02/24 Range/Units 16:33 21:37 06:31 POC Glucose (mg/dL) 254 H 537 H* 249 H (70-110) mg/dL Assessment and Plan Assessment: 1. Bilateral lower extremity chronic wounds status post debridement 2. Malnutrition 3. Lower extremity weakness, nonambulatory 4. Sacral decubitus ulcer Plan: 1. May change only outer layer of dressing/Kerlix as needed as patient has skin substitute in place which will be changed by vascular surgery 2. Antibiotics per recommendations from ID 3. Bilateral lower extremity debridement with skin substitute 4. Patient to follow-up with vascular surgery in outpatient setting Thank you for this consultation. The impression and plan of care has been dictated as directed. Dr. Godinez I performed a history and examination of this patient, discussed the same with the dictator. I agree with the dictator's note ,documented as a scribe. Any additional findings or plans will be noted.
[2024-06-02 11:28] LABS: Glucose,Whole Blood 231 mg/dL (70-110)
--- NOTE | 2024-06-02 14:46 | P.PN ---
Subjective Progress Note Date: 06/02/24 Principal diagnosis: Reason for follow-up is sacral pressure ulcer bilateral lower extremity wound and bacteremia Patient is a 64-year-old female with multiple comorbidities initial presentation to the hospital with worsening sacral wound also have a positive blood culture and extensive wound to bilateral lower extremity patient is status post bedside debridement of the sacral wound.Patient is status post sharp excisional debridement of bilateral lower extremity wound and deep cultures completed on 05/24/2024, patient is status post repeat sharp excisional debride ment of bilateral lower extremity wound completed on 06/01/2024. On today's evaluation that is 06/02/2024,the patient denies any fever or any chills, patient is breathing comfortably on room air, the patient denies chest pain shortness of breath and no significant cough, patient denies abdominal pain , no nausea vomiting or diarrhea. No pain mostly to the right leg for surgery. Has been obtained today Objective - Vital Signs Vital signs: Vital Signs Temp 97.8 F 06/02/24 07:06 Pulse 84 06/02/24 12:04 Resp 18 06/02/24 12:04 BP 150/79 06/02/24 07:06 Pulse Ox 99 06/02/24 07:06 FiO2 Intake & Output 06/01/24 06/02/24 06/02/24 18:59 06:59 18:59 Intake Total 800 Output Total 1005 Balance -205 Weight 45.813 kg Intake: IV 600 Intake, IV Titration 200 Amount Cefepime 2 gm In Sodium 200 Chloride 0.9% 100 ml @ 25 mls/hr IVPB Q8H [facility] Rx#: [id number] Output: Urine 1000 Estimated Blood Loss 5 Other: Voiding Method Indwelling Catheter Indwelling Catheter - Exam GENERAL DESCRIPTION: Middle-age female lying in bed in no distress RESPIRATORY SYSTEM: Unlabored breathing , decreased breath sounds at bases HEART: S1 S2 regular rate and rhythm , ABDOMEN: Soft , no tenderness EXTREMITIES: Bilateral lower extremity wounds are currently dressed no drainage on the dressing - Labs CBC & Chem 7: 05/30/24 02:56 05/30/24 02:56 Labs: Abnormal Lab Results - Last 24 Hours (Table) 06/01/24 06/01/24 06/01/24 Range/Units 14:28 16:33 21:37 POC Glucose (mg/dL) 209 H 254 H 537 H* (70-110) mg/dL 06/02/24 06/02/24 Range/Units 06:31 11:26 POC Glucose (mg/dL) 249 H 231 H (70-110) mg/dL Assessment and Plan (1) Stage IV pressure ulcer of sacral region Current Visit: Yes Status: Acute Code(s): L89.154 - PRESSURE ULCER OF SACRAL REGION, STAGE 4 SNOMED Code(s): 22658944495363 (2) Open wound of both lower extremities Current Visit: Yes Status: Acute Code(s): S81.801A - UNSPECIFIED OPEN WOUND, RIGHT LOWER LEG, INITIAL ENCOUNTER; S81.802A - UNSPECIFIED OPEN WOUND, LEFT LOWER LEG, INITIAL ENCOUNTER SNOMED Code(s): 06526732 (3) Bacteremia Current Visit: Yes Status: Acute Code(s): R78.81 - BACTEREMIA SNOMED Code(s): 7451048 Plan: 1patient with infected sacral pressure ulcer stage IV with a local culture positive for MSSA Pseudomonas and Klebsiella patient is covered with cefepime and Flagyl 2-positive blood culture with gram-positive cocci still waiting for final ID covered with the vancomycin dosing while Watching her creatinine closely 3-bilateral lower extremity pressure ulcer patient is status post surgical debridement and cultures currently growing MRSA and and also VRE that is resistant to daptomycin 4- patient to continue with cefepime and Flagyl on the basis of previous cultures from her sacral wound with a plan for 6-week course of treatment total including the use of antibiotics patient has received here 5-patient also grew VRE from lower extremity wounds patient is status post repeat debridement of the leg wounds on 06/01/2024, patient to continue with oral Zyvox 600 mg twice a day to finish a 4 to 6-week course of therapy Dictation was produced using [employer] dictation software. please excuse any grammatical, word or spelling errors. Time with Patient: Less than 30
[2024-06-02 16:51] LABS: Glucose,Whole Blood 154 mg/dL (70-110)
[2024-06-02 20:59] LABS: Glucose,Whole Blood 173 mg/dL (70-110)
[2024-06-03 05:44] LABS: Glucose,Whole Blood 189 mg/dL (70-110)
[2024-06-03 11:43] LABS: Glucose,Whole Blood 296 mg/dL (70-110)
--- NOTE | 2024-06-03 14:15 | P.PN ---
Subjective Progress Note Date: 06/03/24 Principal diagnosis: Reason for follow-up is sacral pressure ulcer bilateral lower extremity wound and bacteremia Patient is a 64-year-old female with multiple comorbidities initial presentation to the hospital with worsening sacral wound also have a positive blood culture and extensive wound to bilateral lower extremity patient is status post bedside debridement of the sacral wound.Patient is status post sharp excisional debridement of bilateral lower extremity wound and deep cultures completed on 05/24/2024, patient is status post repeat sharp excisional debride ment of bilateral lower extremity wound completed on 06/01/2024. On today's evaluation that is 06/03/2024,the patient remains to be afebrile, patient is on room air not requiring supplemental oxygen and denies any shortness of breath no chest pain or cough.Patient denies having any nausea or vomiting, no abdominal pain and no diarrhea denies any worsening pain to lower extremity wound. No new lab has been obtained today Objective - Vital Signs Vital signs: Vital Signs Temp 97.8 F 06/03/24 07:22 Pulse 84 06/03/24 12:10 Resp 18 06/03/24 07:22 BP 115/69 06/03/24 07:22 Pulse Ox 99 06/03/24 07:22 FiO2 Intake & Output 06/02/24 06/03/24 06/03/24 18:59 06:59 18:59 Output Total 1650 475 325 Balance -1650 -475 -325 Output: Urine 1650 475 325 Other: Voiding Method Indwelling Catheter Indwelling Catheter Indwelling Catheter # Bowel Movements 1 1 - Exam GENERAL DESCRIPTION: Middle-age female lying in bed in no distress RESPIRATORY SYSTEM: Unlabored breathing , decreased breath sounds at bases HEART: S1 S2 regular rate and rhythm , ABDOMEN: Soft , no tenderness EXTREMITIES: Bilateral lower extremity wounds are currently dressed no drainage on the dressing - Labs CBC & Chem 7: 05/30/24 02:56 05/30/24 02:56 Labs: Abnormal Lab Results - Last 24 Hours (Table) 06/02/24 06/02/24 06/03/24 Range/Units 16:50 20:58 05:43 POC Glucose (mg/dL) 154 H 173 H 189 H (70-110) mg/dL 06/03/24 Range/Units 11:42 POC Glucose (mg/dL) 296 H (70-110) mg/dL Assessment and Plan (1) Stage IV pressure ulcer of sacral region Current Visit: Yes Status: Acute Code(s): L89.154 - PRESSURE ULCER OF SACRAL REGION, STAGE 4 SNOMED Code(s): 93920974539179 (2) Open wound of both lower extremities Current Visit: Yes Status: Acute Code(s): S81.801A - UNSPECIFIED OPEN WOUND, RIGHT LOWER LEG, INITIAL ENCOUNTER; S81.802A - UNSPECIFIED OPEN WOUND, LEFT LOWER LEG, INITIAL ENCOUNTER SNOMED Code(s): 53862161 (3) Bacteremia Current Visit: Yes Status: Acute Code(s): R78.81 - BACTEREMIA SNOMED Code(s): 7059019 Plan: 1patient with infected sacral pressure ulcer stage IV with a local culture positive for MSSA Pseudomonas and Klebsiella patient is covered with cefepime and Flagyl 2-positive blood culture with gram-positive cocci still waiting for final ID covered with the vancomycin dosing while Watching her creatinine closely 3-bilateral lower extremity pressure ulcer patient is status post surgical debridement and cultures currently growing MRSA and and also VRE that is resistant to daptomycin 4- patient to continue with cefepime and Flagyl on the basis of previous cultures from her sacral wound with a plan for 6-week course of treatment total including the days of antibiotics patient has received here 5-patient also grew VRE from lower extremity wounds patient is status post repeat debridement of the leg wounds on 06/01/2024, 6patient to continue with oral Zyvox 600 mg twice a day to finish a 4 to 6-week course of therapy Dictation was produced using [employer] dictation software. please excuse any grammatical, word or spelling errors. Time with Patient: Less than 30
[2024-06-03 16:40] LABS: Glucose,Whole Blood 117 mg/dL (70-110)
[2024-06-03 20:52] LABS: Glucose,Whole Blood 184 mg/dL (70-110)
--- NOTE | 2024-06-03 21:53 | P.PN ---
Subjective Progress Note Date: 06/01/24 This is a 64-year-old female who has been at [facility] and followed by Dr. Mcpherson while there. Comes in for an infected sacral ulcer with culture showing MSSA, Klebsiella and Pseudomonas. She has gram positive blood cultures. Also with extensive lower extremity wounds. Patient is continued on a combination of IV cefepime IV vancomycin and oral Flagyl with ID and surgery following closely. Patient has undergone vascular debridement of the sacral wound. She does need a PICC line for outpatient antibiotic therapy. Continues on Santyl and local wound care of the sacrum. CT of the abdomen on the did reveal fecal impaction yesterday patient had received dulcolax and soap suds enema and now she has been moving her bowels. 05/22/2024 Patient seen and evaluated in follow-up today with infectious disease and general surgery following. Patient maintained on antibiotics per infectious disease and has been awaiting repeat blood culture results to be finalized to determine discharge antibiotics. Patient was evaluated by vascular surgery last week and recommend outpatient follow-up if the bilateral heel and foot wounds are not healing and suggest possibly bilateral AKA in the outpatient setting. Family is concerned about her heel wounds not being addressed and how well they transport her back and forth from vascular surgery clinic. Plan is for patient to return to [facility] and currently awaiting cultures and IV antibiotic recommendations per ID. Patient is afebrile, denies chest pain or shortness of breath and reports the breathing treatments are helping. Patient is on bowel regimen and will continue as patient is passing her bowels. Blood sugars are mildly elevated although dropped drastically overnight and will transition long- acting to daily and continue with sliding scale. Encouraged oral intake and will need PT/OT therapy evaluation as well as case management on the case as patient plans on returning to [facility]. 05/23/2024 Patient is seen in follow-up today with family at the bedside and discussed further with Dr. Horn's group from vascular surgery and plans for possible bilateral lower extremity debridement and hopeful for deep tissue cultures on Wednesday. Patient will be n.p.o. and recommend monitoring sugars closely. Blood sugars have been elevated today and insulins have been adjusted. Patient is afebrile with no reports of chest pain or shortness of breath. Patient does have a PICC line and will be continued on IV antibiotics. Infectious diseases following. 05/24/2024 Patient is seen in follow-up today made n.p.o. as patient is scheduled to undergo debridement with Dr. Horn of bilateral lower chavez area and will await deep cultures. This was discussed with Dr. Horn prior to surgical intervention. Long discussion was had about overall prognosis and probable still need for bilateral AKA down the line although patient unwilling at this time and willing to proceed with cultures. Patient does have a PICC line with infectious disease following and will await deep cultures to determine discharge antibiotics. Plan is for patient to return to [facility] on discharge. Continue monitoring sugars closely as they are extremely uncontrolled. 05/25/2024 Patient is seen this morning status post debridement of bilateral lower extremity shins with Dr. Horn. Awaiting cultures to determine discharge antibiotics and patient is maintained on antibiotics per ID recommendations with a PICC line. Plan will be for her to return to [facility] with antibiotic therapy and wound care. Patient's blood sugars have been up and down and will continue current regimen and adjust as needed. Patient is not compliant with diet and diabetic choices. Patient is afebrile and white count mildly trending down and will continue current regimen. Recommend frequent position changes and offloading of the sacral area as patient continues to report severe pain. 05/26/2024 Patient evaluated today status post debridement day 2 of the bilateral lower extremity shins with dr. Horn. Patient is awaiting wound cultures preliminary showing staph aureus. Potassium today 3.4. White blood cell count 11.80. Blood glucose remains elevated ranging 250-400s. 05/27/2024 Patient is lying in the bed. Awake and alert. Currently on room air. No fever no chills. No cough or sputum production. No nausea vomiting or diarrhea. Denied any worsening pain in the legs. Laboratory data reviewed from yesterday. Vancomycin trough level is 14.3. Cultures from 05/24/2024 Corynebacterium and MRSA. Currently on vancomycin.. Patient is s/p debridement of the bilateral lower extremity chavez region by Dr. Horn. Postoperative day 3 05/28/2024 Patient is resting in bed. Awake alert and oriented x 3. Afebrile. Currently on room air. No complaints of chest pain or shortness of breath. No nausea vomiting abdominal pain. Bilateral lower extremity wounds are wrapped. Remains on IV antibiotics. Laboratory data reviewed. Blood sugar was 377 this morning. Continued on insulin regimen. 05/29/2024 Patient is resting in the bed. Awake alert oriented x 3. Afebrile. No nausea vomiting abdominal pain or diarrhea. Continued on IV antibiotics of vancomycin and cefepime. ID is on board. Possible discharge to rehab with ID final recommendations. Laboratory data showed blood sugar went up to 548 this morning. Other laboratory showed WBC 12.8 hemoglobin 10.2 and platelets 444 sodium 129 potassium 4.4 chloride 101 bicarb is 24 BUN 19 and creatinine 0.24.. 05/30/2024 Patient is resting in the bed. Awake alert and oriented x 3. No complaints of chest pain or shortness of breath. Bilateral lower extremity wound pain is controlled. No fever. No other acute overnight issues. Patient is being continued on antibiotics. Wound cultures growing Corynebacterium species and MRSA and Enterococcus. Patient is on antibiotics now, cefepime and linezolid. And Flagyl. Laboratory data showed WBC 11.1 hemoglobin 10.4 and platelets 389 sodium 136 potassium 4.3 chloride 100 bicarb is 25.7 BUN 19.6 and creatinine 0.3 and blood sugar 370. ID and vascular surgery is on board. 06/01/2024 Patient underwent sharp excisional debridement bilateral lower extremity wound today postoperative day 0 by vascular surgery. Patient is otherwise breathing comfortably. On room air. No chest pain or shortness of breath. Bilateral lower extremity pain is fairly controlled. No nausea vomiting abdominal pain or diarrhea. Tolerating oral diet. ID and vascular surgery is on board. Review of Systems Constitutional: Denied any fatigue denied any fever. Cardio vascular: denied any chest pain, palpitations Gastrointestinal: denied any nausea, vomiting, diarrhea, patient reports is passing bowels Pulmonary: Denied any shortness of breath cough Neurologic denied any new focal deficits, reports continued diffuse weakness, reports continued discomfort of the lower extremities All inpatient medications were reviewed and appropriate changes in these medications as dictated in the interval history and assessment and plan. PHYSICAL EXAMINATION: GENERAL: The patient is sleeping but easily arousable, alert and oriented x3, not in any acute distress. Well developed, thin built, elderly appearing, cachectic HEENT: Pupils are round and equally reacting to light. EOMI. No scleral icterus. No conjunctival pallor. Normocephalic, atraumatic. No pharyngeal erythema. No th yromegaly. CARDIOVASCULAR: S1 and S2 present. No murmurs, rubs, or gallops. PULMONARY: Diminished breath sounds bilaterally otherwise chest is clear to auscultation, no wheezing or crackles. ABDOMEN: Soft, nontender, nondistended, normoactive bowel sounds. No palpable organomegaly. Having bowel movements now. Thin MUSCULOSKELETAL: No joint swelling or deformity. EXTREMITIES: No cyanosis, clubbing, or pedal edema. Offloading boots noted bilaterally to lower heels NEUROLOGICAL: Gross neurological examination did not reveal any focal deficits. Diffusely weak SKIN: No rashes. Stage IV sacral wound bilateral extensive lower extremity wounds currently dressed. There is some necrotic tissue and sloughing noted, surgical dressings are dry and intact of bilateral lower chavez Assessment -Infected stage IV sacral pressure injury status post surgical debridement and continues on santyl local wound care. Wound cultures from 05/24/2024 showed Corynebacterium and MRSA. Also growing Enterococcus/VRE. Patient is status post sharp excisional debridement of bilateral lower extremity wounds again on 06/01/2024. -Leukocytosis, possibly secondary to above, trending down -Bilateral lower extremity wound on the calfs down to the tendon may require amputation however vascular would like patient to be opitimized medically and plan for amputations outpatient if patient and family decide to go this route. 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 Improved, patient having bowel movements now -Chronic medical debility and non-weight bearing. -Hx of COPD with no acute exacerbation -Diabetes Mellitus type 2 with hyperglycemia and hypoglycemia -Hx of hypertension -Hyperlipidemia -Hx of PE in the past not currently on oral anticoagulation -Moderate protein calorie malnutrition -Chronic nicotine use GI prophylaxis: IV protonix DVT prophylaxis: Subcu heparin Full Code Plan Patient is status post excisional debridement of bilateral lower extremity again on 06/01/2024. Continue IV antibiotics per ID recommendations. Wound cultures growing MRSA and Corynebacterium. Patient will be continued on cefepime, Flagyl and Zyvox. Lexapro will be discontinued.. Continue local wound care Vascular has evaluated the patient and recommends follow up outpatient and will need medical clearance for leg amputations, family is concerned on getting her back and forth to appointments. Patient is status post surgical debridement with deep tissue cultures on 05/24/2024. Follow-up final blood culture report. Continue on bowel regimen as patient is now having bowel movements. Continue accuchecks ACHS and sliding scale and will adjust insulins as patient has been having elevated blood sugars during the day and extremely low blood sugars overnight. Continue oral lasix Continue nicotine patch Repeat blood work in the AM, white count remains elevated Patient remains afebrile and will follow-up on repeat labs in the morning Patient has received a PICC line and will be awaiting deep cultures from lower extremities to determine discharge antibiotics Plan is for patient to return to [facility] on discharge Objective - Vital Signs Vital signs: Vital Signs Temp 98.0 F 06/01/24 14:24 Pulse 68 06/01/24 15:11 Resp 14 06/01/24 14:54 BP 158/87 06/01/24 14:54 Pulse Ox 100 06/01/24 14:54 FiO2 Intake & Output 05/31/24 06/01/24 06/01/24 18:59 06:59 18:59 Intake Total 100 700 Output Total 1000 505 Balance 100 -1000 195 Weight 45.813 kg 45.813 kg Intake: IV 600 Intake, IV Titration 100 100 Amount Cefepime 2 gm In Sodium 100 100 Chloride 0.9% 100 ml @ 25 mls/hr IVPB [facility] Rx#: [id number] Output: Urine 1000 500 Uretheral (Horn) 1000 Estimated Blood Loss 5 Other: Voiding Method Indwelling Catheter Indwelling Catheter Indwelling Catheter - Labs CBC & Chem 7: 05/30/24 02:56 05/30/24 02:56 Labs: Abnormal Lab Results - Last 24 Hours (Table) 05/31/24 05/31/24 06/01/24 Range/Units 17:02 21:21 05:59 POC Glucose (mg/dL) 211 H 343 H 397 H (70-110) mg/dL 06/01/24 06/01/24 06/01/24 Range/Units 11:41 12:33 14:28 POC Glucose (mg/dL) 296 H 278 H 209 H (70-110) mg/dL
--- NOTE | 2024-06-03 21:56 | P.PN ---
Subjective Progress Note Date: 06/02/24 This is a 64-year-old female who has been at [facility] and followed by Dr. Mcpherson while there. Comes in for an infected sacral ulcer with culture showing MSSA, Klebsiella and Pseudomonas. She has gram positive blood cultures. Also with extensive lower extremity wounds. Patient is continued on a combination of IV cefepime IV vancomycin and oral Flagyl with ID and surgery following closely. Patient has undergone vascular debridement of the sacral wound. She does need a PICC line for outpatient antibiotic therapy. Continues on Santyl and local wound care of the sacrum. CT of the abdomen on the did reveal fecal impaction yesterday patient had received dulcolax and soap suds enema and now she has been moving her bowels. 05/22/2024 Patient seen and evaluated in follow-up today with infectious disease and general surgery following. Patient maintained on antibiotics per infectious disease and has been awaiting repeat blood culture results to be finalized to determine discharge antibiotics. Patient was evaluated by vascular surgery last week and recommend outpatient follow-up if the bilateral heel and foot wounds are not healing and suggest possibly bilateral AKA in the outpatient setting. Family is concerned about her heel wounds not being addressed and how well they transport her back and forth from vascular surgery clinic. Plan is for patient to return to [facility] and currently awaiting cultures and IV antibiotic recommendations per ID. Patient is afebrile, denies chest pain or shortness of breath and reports the breathing treatments are helping. Patient is on bowel regimen and will continue as patient is passing her bowels. Blood sugars are mildly elevated although dropped drastically overnight and will transition long- acting to daily and continue with sliding scale. Encouraged oral intake and will need PT/OT therapy evaluation as well as case management on the case as patient plans on returning to [facility]. 05/23/2024 Patient is seen in follow-up today with family at the bedside and discussed further with Dr. Horn's group from vascular surgery and plans for possible bilateral lower extremity debridement and hopeful for deep tissue cultures on Wednesday. Patient will be n.p.o. and recommend monitoring sugars closely. Blood sugars have been elevated today and insulins have been adjusted. Patient is afebrile with no reports of chest pain or shortness of breath. Patient does have a PICC line and will be continued on IV antibiotics. Infectious diseases following. 05/24/2024 Patient is seen in follow-up today made n.p.o. as patient is scheduled to undergo debridement with Dr. Horn of bilateral lower chavez area and will await deep cultures. This was discussed with Dr. Horn prior to surgical intervention. Long discussion was had about overall prognosis and probable still need for bilateral AKA down the line although patient unwilling at this time and willing to proceed with cultures. Patient does have a PICC line with infectious disease following and will await deep cultures to determine discharge antibiotics. Plan is for patient to return to [facility] on discharge. Continue monitoring sugars closely as they are extremely uncontrolled. 05/25/2024 Patient is seen this morning status post debridement of bilateral lower extremity shins with Dr. Horn. Awaiting cultures to determine discharge antibiotics and patient is maintained on antibiotics per ID recommendations with a PICC line. Plan will be for her to return to [facility] with antibiotic therapy and wound care. Patient's blood sugars have been up and down and will continue current regimen and adjust as needed. Patient is not compliant with diet and diabetic choices. Patient is afebrile and white count mildly trending down and will continue current regimen. Recommend frequent position changes and offloading of the sacral area as patient continues to report severe pain. 05/26/2024 Patient evaluated today status post debridement day 2 of the bilateral lower extremity shins with dr. Horn. Patient is awaiting wound cultures preliminary showing staph aureus. Potassium today 3.4. White blood cell count 11.80. Blood glucose remains elevated ranging 250-400s. 05/27/2024 Patient is lying in the bed. Awake and alert. Currently on room air. No fever no chills. No cough or sputum production. No nausea vomiting or diarrhea. Denied any worsening pain in the legs. Laboratory data reviewed from yesterday. Vancomycin trough level is 14.3. Cultures from 05/24/2024 Corynebacterium and MRSA. Currently on vancomycin.. Patient is s/p debridement of the bilateral lower extremity chavez region by Dr. Horn. Postoperative day 3 05/28/2024 Patient is resting in bed. Awake alert and oriented x 3. Afebrile. Currently on room air. No complaints of chest pain or shortness of breath. No nausea vomiting abdominal pain. Bilateral lower extremity wounds are wrapped. Remains on IV antibiotics. Laboratory data reviewed. Blood sugar was 377 this morning. Continued on insulin regimen. 05/29/2024 Patient is resting in the bed. Awake alert oriented x 3. Afebrile. No nausea vomiting abdominal pain or diarrhea. Continued on IV antibiotics of vancomycin and cefepime. ID is on board. Possible discharge to rehab with ID final recommendations. Laboratory data showed blood sugar went up to 548 this morning. Other laboratory showed WBC 12.8 hemoglobin 10.2 and platelets 444 sodium 129 potassium 4.4 chloride 101 bicarb is 24 BUN 19 and creatinine 0.24.. 05/30/2024 Patient is resting in the bed. Awake alert and oriented x 3. No complaints of chest pain or shortness of breath. Bilateral lower extremity wound pain is controlled. No fever. No other acute overnight issues. Patient is being continued on antibiotics. Wound cultures growing Corynebacterium species and MRSA and Enterococcus. Patient is on antibiotics now, cefepime and linezolid. And Flagyl. Laboratory data showed WBC 11.1 hemoglobin 10.4 and platelets 389 sodium 136 potassium 4.3 chloride 100 bicarb is 25.7 BUN 19.6 and creatinine 0.3 and blood sugar 370. ID and vascular surgery is on board. 06/01/2024 Patient underwent sharp excisional debridement bilateral lower extremity wound today postoperative day 0 by vascular surgery. Patient is otherwise breathing comfortably. On room air. No chest pain or shortness of breath. Bilateral lower extremity pain is fairly controlled. No nausea vomiting abdominal pain or diarrhea. Tolerating oral diet. ID and vascular surgery is on board. 06/02/2024 Patient is awake alert and oriented x 3. No complaints of chest pain or shortness of breath. Sacral ulcer pain and bilateral lower extremity pain controlled with medications. Patient has been afebrile. Postoperative #1 status post sharp excisional debridement of bilateral lower extremity wounds. Review of Systems Constitutional: Denied any fatigue denied any fever. Cardio vascular: denied any chest pain, palpitations Gastrointestinal: denied any nausea, vomiting, diarrhea, patient reports is passing bowels Pulmonary: Denied any shortness of breath cough Neurologic denied any new focal deficits, reports continued diffuse weakness, reports continued discomfort of the lower extremities All inpatient medications were reviewed and appropriate changes in these medications as dictated in the interval history and assessment and plan. PHYSICAL EXAMINATION: GENERAL: The patient is sleeping but easily arousable, alert and oriented x3, not in any acute distress. Well developed, thin built, elderly appearing, cachectic HEENT: Pupils are round and equally reacting to light. EOMI. No scleral icterus. No conjunctival pallor. Normocephalic, atraumatic. No pharyngeal erythema. No thyromegaly. CARDIOVASCULAR: S1 and S2 present. No murmurs, rubs, or gallops. PULMONARY: Diminished breath sounds bilaterally otherwise chest is clear to auscultation, no wheezing or crackles. ABDOMEN: Soft, nontender, nondistended, normoactive bowel sounds. No palpable organomegaly. Having bowel movements now. Thin MUSCULOSKELETAL: No joint swelling or deformity. EXTREMITIES: No cyanosis, clubbing, or pedal edema. Offloading boots noted bilaterally to lower heels NEUROLOGICAL: Gross neurological examination did not reveal any focal deficits. Diffusely weak SKIN: No rashes. Stage IV sacral wound bilateral extensive lower extremity wounds currently dressed. Bilateral lower extremity surgical dressings are dry and intact of bilateral lower chavez Assessment -Infected stage IV sacral pressure injury status post surgical debridement and continues on santyl local wound care. Wound cultures from 05/24/2024 showed Corynebacterium and MRSA. Also growing Enterococcus/VRE. Patient is status post sharp excisional debridement of bilateral lower extremity wounds again on 06/01/2024. -Leukocytosis, possibly secondary to above, trending down -Bilateral lower extremity wound on the calfs down to the tendon may require amputation however vascular would like patient to be opitimized medically and plan for amputations outpatient if patient and family decide to go this route. Patient is status post surgical debridement with vascular surgery on 05/24/2024 and currently awaiting cultures -Gram positive cocci bacteremia, repeat cultures have been negative -Severe peripheral arterial disease; Bilateral SFA occlusion, severe [employer], iliac stenosis and severe intrapopliteal stenosis left greater than right -Fecal impaction as noted on CT imaging. Improved, patient having bowel move ments now -Chronic medical debility and non-weight bearing. -Hx of COPD with no acute exacerbation -Diabetes Mellitus type 2 with hyperglycemia and hypoglycemia -Hx of hypertension -Hyperlipidemia -Hx of PE in the past not currently on oral anticoagulation -Moderate protein calorie malnutrition -Chronic nicotine use GI prophylaxis: IV protonix DVT prophylaxis: Subcu heparin Full Code Plan Patient is status post excisional debridement of bilateral lower extremity again on 06/01/2024. Continue IV antibiotics per ID recommendations. Wound cultures growing MRSA and Corynebacterium. Patient will be continued on cefepime, Flagyl and Zyvox. Lexapro will be discontinued.. Continue local wound care Vascular has evaluated the patient and recommends follow up outpatient and will need medical clearance for leg amputations, family is concerned on getting her back and forth to appointments. Patient is status post surgical debridement with deep tissue cultures on 05/24/2024. Follow-up final blood culture report. Continue on bowel regimen as patient is now having bowel movements. Continue accuchecks ACHS and sliding scale and will adjust insulins as patient has been having elevated blood sugars during the day and extremely low blood sugars overnight. Continue oral lasix Continue nicotine patch Repeat blood work in the AM, white count remains elevated Patient remains afebrile and will follow-up on repeat labs in the morning Patient has received a PICC line and will be awaiting deep cultures from lower extremities to determine discharge antibiotics Plan is for patient to return to [facility] on discharge Objective - Vital Signs Vital signs: Vital Signs Temp 98.0 F 06/02/24 19:30 Pulse 92 06/02/24 19:40 Resp 17 06/02/24 19:30 BP 119/81 06/02/24 19:30 Pulse Ox 99 06/02/24 19:30 FiO2 Intake & Output 06/02/24 06/02/24 06/03/24 06:59 18:59 06:59 Output Total 1650 Balance -1650 Output: Urine 1650 Other: Voiding Method Indwelling Catheter Indwelling Catheter Indwelling Catheter # Bowel Movements 1 - Labs CBC & Chem 7: 05/30/24 02:56 05/30/24 02:56 Labs: Abnormal Lab Results - Last 24 Hours (Table) 06/02/24 06/02/24 06/02/24 Range/Units 06:31 11:26 16:50 POC Glucose (mg/dL) 249 H 231 H 154 H (70-110) mg/dL 06/02/24 Range/Units 20:58 POC Glucose (mg/dL) 173 H (70-110) mg/dL
--- NOTE | 2024-06-03 21:56 | P.PN ---
Subjective Progress Note Date: 06/03/24 This is a 64-year-old female who has been at [facility] and followed by Dr. Mcpherson while there. Comes in for an infected sacral ulcer with culture showing MSSA, Klebsiella and Pseudomonas. She has gram positive blood cultures. Also with extensive lower extremity wounds. Patient is continued on a combination of IV cefepime IV vancomycin and oral Flagyl with ID and surgery following closely. Patient has undergone vascular debridement of the sacral wound. She does need a PICC line for outpatient antibiotic therapy. Continues on Santyl and local wound care of the sacrum. CT of the abdomen on the did reveal fecal impaction yesterday patient had received dulcolax and soap suds enema and now she has been moving her bowels. 05/22/2024 Patient seen and evaluated in follow-up today with infectious disease and general surgery following. Patient maintained on antibiotics per infectious disease and has been awaiting repeat blood culture results to be finalized to determine discharge antibiotics. Patient was evaluated by vascular surgery last week and recommend outpatient follow-up if the bilateral heel and foot wounds are not healing and suggest possibly bilateral AKA in the outpatient setting. Family is concerned about her heel wounds not being addressed and how well they transport her back and forth from vascular surgery clinic. Plan is for patient to return to [facility] and currently awaiting cultures and IV antibiotic recommendations per ID. Patient is afebrile, denies chest pain or shortness of breath and reports the breathing treatments are helping. Patient is on bowel regimen and will continue as patient is passing her bowels. Blood sugars are mildly elevated although dropped drastically overnight and will transition long- acting to daily and continue with sliding scale. Encouraged oral intake and will need PT/OT therapy evaluation as well as case management on the case as patient plans on returning to [facility]. 05/23/2024 Patient is seen in follow-up today with family at the bedside and discussed further with Dr. Horn's group from vascular surgery and plans for possible bilateral lower extremity debridement and hopeful for deep tissue cultures on Wednesday. Patient will be n.p.o. and recommend monitoring sugars closely. Blood sugars have been elevated today and insulins have been adjusted. Patient is afebrile with no reports of chest pain or shortness of breath. Patient does have a PICC line and will be continued on IV antibiotics. Infectious diseases following. 05/24/2024 Patient is seen in follow-up today made n.p.o. as patient is scheduled to undergo debridement with Dr. Horn of bilateral lower chavez area and will await deep cultures. This was discussed with Dr. Horn prior to surgical intervention. Long discussion was had about overall prognosis and probable still need for bilateral AKA down the line although patient unwilling at this time and willing to proceed with cultures. Patient does have a PICC line with infectious disease following and will await deep cultures to determine discharge antibiotics. Plan is for patient to return to [facility] on discharge. Continue monitoring sugars closely as they are extremely uncontrolled. 05/25/2024 Patient is seen this morning status post debridement of bilateral lower extremity shins with Dr. Horn. Awaiting cultures to determine discharge antibiotics and patient is maintained on antibiotics per ID recommendations with a PICC line. Plan will be for her to return to [facility] with antibiotic therapy and wound care. Patient's blood sugars have been up and down and will continue current regimen and adjust as needed. Patient is not compliant with diet and diabetic choices. Patient is afebrile and white count mildly trending down and will continue current regimen. Recommend frequent position changes and offloading of the sacral area as patient continues to report severe pain. 05/26/2024 Patient evaluated today status post debridement day 2 of the bilateral lower extremity shins with dr. Horn. Patient is awaiting wound cultures preliminary showing staph aureus. Potassium today 3.4. White blood cell count 11.80. Blood glucose remains elevated ranging 250-400s. 05/27/2024 Patient is lying in the bed. Awake and alert. Currently on room air. No fever no chills. No cough or sputum production. No nausea vomiting or diarrhea. Denied any worsening pain in the legs. Laboratory data reviewed from yesterday. Vancomycin trough level is 14.3. Cultures from 05/24/2024 Corynebacterium and MRSA. Currently on vancomycin.. Patient is s/p debridement of the bilateral lower extremity chavez region by Dr. Horn. Postoperative day 3 05/28/2024 Patient is resting in bed. Awake alert and oriented x 3. Afebrile. Currently on room air. No complaints of chest pain or shortness of breath. No nausea vomiting abdominal pain. Bilateral lower extremity wounds are wrapped. Remains on IV antibiotics. Laboratory data reviewed. Blood sugar was 377 this morning. Continued on insulin regimen. 05/29/2024 Patient is resting in the bed. Awake alert oriented x 3. Afebrile. No nausea vomiting abdominal pain or diarrhea. Continued on IV antibiotics of vancomycin and cefepime. ID is on board. Possible discharge to rehab with ID final recommendations. Laboratory data showed blood sugar went up to 548 this morning. Other laboratory showed WBC 12.8 hemoglobin 10.2 and platelets 444 sodium 129 potassium 4.4 chloride 101 bicarb is 24 BUN 19 and creatinine 0.24.. 05/30/2024 Patient is resting in the bed. Awake alert and oriented x 3. No complaints of chest pain or shortness of breath. Bilateral lower extremity wound pain is controlled. No fever. No other acute overnight issues. Patient is being continued on antibiotics. Wound cultures growing Corynebacterium species and MRSA and Enterococcus. Patient is on antibiotics now, cefepime and linezolid. And Flagyl. Laboratory data showed WBC 11.1 hemoglobin 10.4 and platelets 389 sodium 136 potassium 4.3 chloride 100 bicarb is 25.7 BUN 19.6 and creatinine 0.3 and blood sugar 370. ID and vascular surgery is on board. 06/01/2024 Patient underwent sharp excisional debridement bilateral lower extremity wound today postoperative day 0 by vascular surgery. Patient is otherwise breathing comfortably. On room air. No chest pain or shortness of breath. Bilateral lower extremity pain is fairly controlled. No nausea vomiting abdominal pain or diarrhea. Tolerating oral diet. ID and vascular surgery is on board. 06/02/2024 Patient is awake alert and oriented x 3. No complaints of chest pain or shortness of breath. Sacral ulcer pain and bilateral lower extremity pain controlled with medications. Patient has been afebrile. Postoperative #1 status post sharp excisional debridement of bilateral lower extremity wounds. 06/03/2024 Patient is awake alert and oriented x 3. No complaints of chest pain or shortness of breath. Bilateral lower extremity pain is controlled. Patient has been afebrile. No nausea vomiting abdominal pain or diarrhea. No other acute overnight issues. Patient is being continued on antibiotics cefepime, metronidazole and Zyvox. ID and vascular surgery is on board. Review of Systems Constitutional: Denied any fatigue denied any fever. Cardio vascular: denied any chest pain, palpitations Gastrointestinal: denied any nausea, vomiting, diarrhea, patient reports is pa ssing bowels Pulmonary: Denied any shortness of breath cough Neurologic denied any new focal deficits, reports continued diffuse weakness, reports continued discomfort of the lower extremities All inpatient medications were reviewed and appropriate changes in these medications as dictated in the interval history and assessment and plan. PHYSICAL EXAMINATION: GENERAL: The patient is sleeping but easily arousable, alert and oriented x3, not in any acute distress. Well developed, thin built, elderly appearing, cachectic HEENT: Pupils are round and equally reacting to light. EOMI. No scleral icterus. No conjunctival pallor. Normocephalic, atraumatic. No pharyngeal erythema. No thyromegaly. CARDIOVASCULAR: S1 and S2 present. No murmurs, rubs, or gallops. PULMONARY: Diminished breath sounds bilaterally otherwise chest is clear to auscultation, no wheezing or crackles. ABDOMEN: Soft, nontender, nondistended, normoactive bowel sounds. No palpable organomegaly. Having bowel movements now. Thin MUSCULOSKELETAL: No joint swelling or deformity. EXTREMITIES: No cyanosis, clubbing, or pedal edema. Offloading boots noted bilaterally to lower heels NEUROLOGICAL: Gross neurological examination did not reveal any focal deficits. Diffusely weak SKIN: No rashes. Stage IV sacral wound bilateral extensive lower extremity wounds currently dressed. Bilateral lower extremity surgical dressings are dry and intact of bilateral lower chavez Assessment -Infected stage IV sacral pressure injury status post surgical debridement and continues on santyl local wound care. Wound cultures from 05/24/2024 showed Corynebacterium and MRSA. Also growing Enterococcus/VRE. Patient is status post sharp excisional debridement of bilateral lower extremity wounds again on 06/01/2024. -Leukocytosis, possibly secondary to above, trending down -Bilateral lower extremity wound on the calfs down to the tendon may require amputation however vascular would like patient to be opitimized medically and plan for amputations outpatient if patient and family decide to go this route. Patient is status post surgical debridement with vascular surgery on 05/24/2024 and currently awaiting cultures -Gram positive cocci bacteremia, repeat cultures have been negative -Severe peripheral arterial disease; Bilateral SFA occlusion, severe [employer], iliac stenosis and severe intrapopliteal stenosis left greater than right -Fecal impaction as noted on CT imaging. Improved, patient having bowel movements now -Chronic medical debility and non-weight bearing. -Hx of COPD with no acute exacerbation -Diabetes Mellitus type 2 with hyperglycemia and hypoglycemia -Hx of hypertension -Hyperlipidemia -Hx of PE in the past not currently on oral anticoagulation -Moderate protein calorie malnutrition -Chronic nicotine use GI prophylaxis: IV protonix DVT prophylaxis: Subcu heparin Full Code Plan Patient is status post excisional debridement of bilateral lower extremity again on 06/01/2024. Continue IV antibiotics per ID recommendations. Wound cultures growing MRSA and Corynebacterium. Patient will be continued on cefepime, Flagyl and Zyvox. Lexapro will be discontinued.. Continue local wound care Vascular has evaluated the patient and recommends follow up outpatient and will need medical clearance for leg amputations, family is concerned on getting her back and forth to appointments. Patient is status post surgical debridement with deep tissue cultures on 05/24/2024. Follow-up final blood culture report. Continue on bowel regimen as patient is now having bowel movements. Continue accuchecks ACHS and sliding scale and will adjust insulins as patient has been having elevated blood sugars during the day and extremely low blood sugars overnight. Continue oral lasix Continue nicotine patch Repeat blood work in the AM, white count remains elevated Patient remains afebrile and will follow-up on repeat labs in the morning Patient has received a PICC line and will be awaiting deep cultures from lower extremities to determine discharge antibiotics Plan is for patient to return to [facility] on discharge Objective - Vital Signs Vital signs: Vital Signs Temp 98.0 F 06/03/24 19:38 Pulse 88 06/03/24 20:21 Resp 16 06/03/24 19:38 BP 129/79 06/03/24 19:38 Pulse Ox 98 06/03/24 19:38 FiO2 Intake & Output 06/03/24 06/03/24 06/04/24 06:59 18:59 06:59 Output Total 475 1200 Balance -475 -1200 Output: Urine 475 1200 Other: Voiding Method Indwelling Catheter Indwelling Catheter # Bowel Movements 1 - Labs CBC & Chem 7: 05/30/24 02:56 05/30/24 02:56 Labs: Abnormal Lab Results - Last 24 Hours (Table) 06/03/24 06/03/24 06/03/24 Range/Units 05:43 11:42 16:38 POC Glucose (mg/dL) 189 H 296 H 117 H (70-110) mg/dL 06/03/24 Range/Units 20:51 POC Glucose (mg/dL) 184 H (70-110) mg/dL
[2024-06-04 06:11] LABS: Glucose,Whole Blood 277 mg/dL (70-110)
[2024-06-04 09:57] LABS: Blood Urea Nitrogen 23.4 mg/dL (9.0-27.0); Calcium 8.4 mg/dL (8.7-10.3); Carbon Dioxide 24.6 mmol/L (21.6-31.8); Chloride 105 mmol/L (96-109); Glucose 289 mg/dL (70-110); Potassium 3.8 mmol/L (3.5-5.5); Sodium 138 mmol/L (135-145)
[2024-06-04 10:22] LABS: Basophils # (A) 0.12 X 10*3/uL (0.00-0.10); Basophils % (A) 1.3 %; Eosinophils # (A) 0.09 X 10*3/uL (0.04-0.35); HCT 35.3 % (37.2-46.3); HGB 10.8 g/dL (12.0-15.0); Lymphocytes # (A) 1.15 X 10*3/uL (0.90-5.00); Lymphocytes % (A) 12.6 %; MCH 28.1 pg (27.0-32.0); MCHC 30.6 g/dL (32.0-37.0); MCV 91.7 FL (80.0-97.0); Mean Platelet Volume 10.1 FL (9.5-12.2); Monocytes # (A) 0.32 X 10*3/uL (0.20-1.00); Monocytes % (A) 3.5 %; NRBC Per 100 WBC 0 X 10*3/uL (0.00-0.01); Neutrophils # (A) 7.36 X 10*3/uL (1.80-7.70); Neutrophils % (A) 80.8 %; Platelet Count 334 X 10*3/uL (140-440); RBC 3.85 X 10*6/uL (4.10-5.20); RDW 18.6 % (11.5-14.5); WBC 9.11 X 10*3/uL (4.50-10.00)
[2024-06-04 12:13] LABS: Glucose,Whole Blood 302 mg/dL (70-110)
--- NOTE | 2024-06-04 14:44 | P.PN ---
Subjective Progress Note Date: 06/04/24 Principal diagnosis: Reason for follow-up is sacral pressure ulcer bilateral lower extremity wound and bacteremia Patient is a 64-year-old female with multiple comorbidities initial presentation to the hospital with worsening sacral wound also have a positive blood culture and extensive wound to bilateral lower extremity patient is status post bedside debridement of the sacral wound.Patient is status post sharp excisional debridement of bilateral lower extremity wound and deep cultures completed on 05/24/2024, patient is status post repeat sharp excisional debride ment of bilateral lower extremity wound completed on 06/01/2024. On today's evaluation that is 06/04/2024, the patient continues to be afebrile, the patient is on room air and breathing comfortably, the Pt denies having any chest pain or cough, the patient denies having any abdominal pain no vomiting or any diarrhea has been reported by the nursing staff, pain to the right lower extremity wound is currently controlled. Patient white count normal at 9.11, creatinine 0.3 Objective - Vital Signs Vital signs: Vital Signs Temp 97.8 F 06/04/24 07:13 Pulse 84 06/04/24 09:29 Resp 17 06/04/24 07:13 BP 161/93 06/04/24 07:13 Pulse Ox 99 06/04/24 07:13 FiO2 Intake & Output 06/03/24 06/04/24 06/04/24 18:59 06:59 18:59 Output Total 1200 400 Balance -1200 -400 Output: Urine 1200 400 Other: Voiding Method Indwelling Catheter Indwelling Catheter Indwelling Catheter # Bowel Movements 1 - Exam GENERAL DESCRIPTION: Middle-age female lying in bed in no distress RESPIRATORY SYSTEM: Unlabored breathing , decreased breath sounds at bases HEART: S1 S2 regular rate and rhythm , ABDOMEN: Soft , no tenderness EXTREMITIES: Bilateral lower extremity wounds are currently dressed no drainage on the dressing - Labs CBC & Chem 7: 06/04/24 06:11 06/04/24 06:11 Labs: Abnormal Lab Results - Last 24 Hours (Table) 06/03/24 06/03/24 06/04/24 Range/Units 16:38 20:51 06:10 RBC (4.10-5.20) X 10*6/uL Hgb (12.0-15.0) g/dL Hct (37.2-46.3) % MCHC (32.0-37.0) g/dL RDW (11.5-14.5) % Immature Gran # (0.00-0.04) X 10*3/uL Basophils # (0.00-0.10) X 10*3/uL Creatinine (0.6-1.5) mg/dL BUN/Creatinine Ratio (12.00-20.00) Ratio Glucose (70-110) mg/dL POC Glucose (mg/dL) 117 H 184 H 277 H (70-110) mg/dL Calcium (8.7-10.3) mg/dL 06/04/24 06/04/24 06/04/24 Range/Units 06:11 06:11 12:11 RBC 3.85 L (4.10-5.20) X 10*6/uL Hgb 10.8 L (12.0-15.0) g/dL Hct 35.3 L (37.2-46.3) % MCHC 30.6 L (32.0-37.0) g/dL RDW 18.6 H (11.5-14.5) % Immature Gran # 0.07 H (0.00-0.04) X 10*3/uL Basophils # 0.12 H (0.00-0.10) X 10*3/uL Creatinine 0.3 L (0.6-1.5) mg/dL BUN/Creatinine Ratio 78.00 H (12.00-20.00) Ratio Glucose 289 H (70-110) mg/dL POC Glucose (mg/dL) 302 H (70-110) mg/dL Calcium 8.4 L (8.7-10.3) mg/dL Assessment and Plan (1) Stage IV pressure ulcer of sacral region Current Visit: Yes Status: Acute Code(s): L89.154 - PRESSURE ULCER OF SACRAL REGION, STAGE 4 SNOMED Code(s): 45840172724247 (2) Open wound of both lower extremities Current Visit: Yes Status: Acute Code(s): S81.801A - UNSPECIFIED OPEN WOUND, RIGHT LOWER LEG, INITIAL ENCOUNTER; S81.802A - UNSPECIFIED OPEN WOUND, LEFT LOWER LEG, INITIAL ENCOUNTER SNOMED Code(s): 27500753 (3) Bacteremia Current Visit: Yes Status: Acute Code(s): R78.81 - BACTEREMIA SNOMED Code(s): 6187404 Plan: 1patient with infected sacral pressure ulcer stage IV with a local culture positive for MSSA Pseudomonas and Klebsiella patient is covered with cefepime and Flagyl 2-positive blood culture with gram-positive cocci still waiting for final ID covered with the vancomycin dosing while Watching her creatinine closely 3-bilateral lower extremity pressure ulcer patient is status post surgical debridement and cultures currently growing MRSA and and also VRE that is resistant to daptomycin 4- patient to continue with cefepime and Flagyl on the basis of previous cultures from her sacral wound with a plan for 6-week course of treatment total including the days of antibiotics patient has received here 5-patient also grew VRE from lower extremity wounds patient is status post repeat debridement of the leg wounds on 06/01/2024, 6patient is afebrile and the patient white count has normalized, to continue with oral Zyvox 600 mg twice a day to finish a 4 to 6-week course of therapy Dictation was produced using [employer] dictation software. please excuse any grammatical, word or spelling errors. Time with Patient: Less than 30
[2024-06-04 17:08] LABS: Glucose,Whole Blood 103 mg/dL (70-110)
[2024-06-04 20:46] LABS: Glucose,Whole Blood 173 mg/dL (70-110)
[2024-06-04] MEDS: LINEZOLID 600 MG in DEXTROSE/WATER 1 300ML.BAG IVPB ONE (20:52)
[2024-06-05 06:11] LABS: Glucose,Whole Blood 369 mg/dL (70-110)
--- NOTE | 2024-06-05 09:18 | P.PN ---
Subjective Progress Note Date: 06/05/24 Principal diagnosis: Bilateral lower extremity wounds Patient is seen and examined today as a follow-up. No acute changes through the night. Wound cultures are finalized. Infectious diseases following. She is status post excisional debridement with skin substitute placed. She has been afebrile. Leukocytosis resolved. Objective - Vital Signs Vital signs: Vital Signs Temp 97.3 F L 06/05/24 07:24 Pulse 87 06/05/24 07:24 Resp 18 06/05/24 07:37 BP 149/87 06/05/24 07:24 Pulse Ox 96 06/05/24 07:24 FiO2 Intake & Output 06/04/24 06/05/24 06/05/24 18:59 06:59 18:59 Output Total 825 500 Balance -825 -500 Output: Urine 825 500 Other: Voiding Method Indwelling Catheter Indwelling Catheter Indwelling Catheter # Bowel Movements 1 - Exam General appearance: The patient is alert, oriented, appears in no acute distress. HET: Head is normocephalic and atraumatic. Pupils are equal and reactive. Neck: Supple. Abdomen: Soft, nondistended. Extremities: Bilateral lower extremities with dressings clean dry and intact. Neurological: Alert and oriented. - Labs CBC & Chem 7: 06/04/24 06:11 06/04/24 06:11 Labs: Abnormal Lab Results - Last 24 Hours (Table) 06/04/24 06/04/24 06/04/24 Range/Units 06:11 06:11 12:11 RBC 3.85 L (4.10-5.20) X 10*6/uL Hgb 10.8 L (12.0-15.0) g/dL Hct 35.3 L (37.2-46.3) % MCHC 30.6 L (32.0-37.0) g/dL RDW 18.6 H (11.5-14.5) % Immature Gran # 0.07 H (0.00-0.04) X 10*3/uL Basophils # 0.12 H (0.00-0.10) X 10*3/uL Creatinine 0.3 L (0.6-1.5) mg/dL BUN/Creatinine Ratio 78.00 H (12.00-20.00) Ratio Glucose 289 H (70-110) mg/dL POC Glucose (mg/dL) 302 H (70-110) mg/dL Calcium 8.4 L (8.7-10.3) mg/dL 06/04/24 06/05/24 Range/Units 20:45 06:09 RBC (4.10-5.20) X 10*6/uL Hgb (12.0-15.0) g/dL Hct (37.2-46.3) % MCHC (32.0-37.0) g/dL RDW (11.5-14.5) % Immature Gran # (0.00-0.04) X 10*3/uL Basophils # (0.00-0.10) X 10*3/uL Creatinine (0.6-1.5) mg/dL BUN/Creatinine Ratio (12.00-20.00) Ratio Glucose (70-110) mg/dL POC Glucose (mg/dL) 173 H 369 H (70-110) mg/dL Calcium (8.7-10.3) mg/dL Assessment and Plan Assessment: 1. Bilateral lower extremity chronic wounds status post excisional debridement and skin substitute application 2. Malnutrition 3. Lower extremity weakness, nonambulatory 4. Sacral decubitus ulcer Plan: 1. Daily dressing change to b/l lower extremities as directed 2. Antibiotics per recommendations from ID 3. Patient is cleared from vascular surgery for discharge. Patient to follow- up with vascular surgery in outpatient setting Thank you for this consultation. The impression and plan of care has been dictated as directed. Dr. Horn I performed a history and examination of this patient, discussed the same with the dictator. I agree with the dictator's note ,documented as a scribe. Any additional findings or plans will be noted.
[2024-06-05 11:56] LABS: Glucose,Whole Blood 337 mg/dL (70-110)
[2024-06-05 16:41] LABS: Glucose,Whole Blood 236 mg/dL (70-110)
[2024-06-05 21:19] LABS: Glucose,Whole Blood 134 mg/dL (70-110)
[2024-06-06] MEDS ORDERED: HYDROcodone/APAP 5-325MG 1 EACH TAB PO PRN (01:14)
[2024-06-06] MEDS: HYDROmorphone 0.5 MG/0.5 ML SYRINGE IVP PRN ×2 (01:38→14:19)
[2024-06-06 05:53] LABS: Glucose,Whole Blood 246 mg/dL (70-110)
[2024-06-06 11:39] LABS: Glucose,Whole Blood 212 mg/dL (70-110)
--- NOTE | 2024-06-06 12:21 | CT ---
Blaze Lucio ID: [id number] : 1960 EXAMINATION TYPE: CT angio abdominal aorta W Run Off DATE OF EXAM: 05/17/2024 COMPARISON: NONE HISTORY: 64-year-old female with sore, sacral wound, pain TECHNIQUE: Contiguous axial scanning of the abdomen and pelvis before and after administration of 100 ml Isovue 370 IV contrast. Postcontrast scanning included bilateral larger may run off. Coronal and sagittal reconstructions performed. 3-D reconstructions generated on a dedicated independent worksta tion. CT DLP: 1385.7 mGycm Automated exposure control for dose reduction was used. FINDINGS: ABDOMEN AND PELVIS: Marked diffuse generalized anasarca. Heart normal size. Three-vessel coronary artery calcifications are present. Small left pleural effusion with adjacent atelectasis. No focal liver lesion or biliary ductal dilatation. Portal venous system is patent. Gallbladder, spleen, and pancreas within normal limits. Mild fullness of the bilateral renal collecting systems probably transient. Mild diffuse thickening o f the bilateral adrenal glands without discrete nodularity. No dilated small bowel, free fluid, or free air. There is moderate stool burden. Mild circumferential wall thickening distal sigmoid and rectum. Rectum is distended to 8.3 cm wide with stool. Presacral edema. A Horn catheter is in place decompressing the bladder. Intraluminal bladder air likely relates to in strumentation. Multiple pelvic phleboliths. BONES: Severe endplate fractures of all visualized lower thoracic and lumbar vertebral bodies except for T8 and T10. There is only minimal retropulsion into the ventral spinal canal at L1 and L4 levels. Fractu res are age indeterminate but probably chronic given the lack of paravertebral soft tissue swelling. Profound osteoporosis. Bilateral sacral insufficiency fractures are also present, also age indetermin ate, probably chronic. Subacute to chronic fractures bilateral inferior pubic rami, right pubic body, lateral left superior ramus. Large inferior midline decubitus ulcer overlying the coccyx and extending upward and right laterally. The ulcer is the nearly contacting the underlying bone measuring up to 11.6 cm craniocaudal by 3.3 c m wide, refer to coronal series 202 image 66 and C7. There is mottled material within the ulcer defec t probably packing material. We note extension of air collection with associated thickened soft tissue and some fluid laterally in to the subcutaneous fat layer posterior to the iliac bone measuring up to 5.6 cm long and 1.7 cm thic k, refer to axial series 501 image 139. VASCULATURE: Moderate to severe atherosclerotic changes throughout. Celiac access and SMA are largely patent. Mild atherosclerotic narrowing at the origin of the left an d right renal arteries. Moderate atherosclerotic plaque and calcification within the infrarenal abdominal aorta. 4 moderate t o severe distal abdominal aorta where the patent lumen is narrowed down to 5 mm. Right: Segmental moderate stenoses right common iliac artery. Severe focal stenosis proximal right external iliac artery. 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 PFA is patent with scattered mild to moderate prostatic calcifications. There is occlusion of the SFA approximately 1.5 cm from its origin. Reconstitution of the upper popliteal artery. Mild to moderate atherosclerotic changes in the poplite al artery. Normal take off anterior tibial artery. Moderate atherosclerotic calcifications tibioperoneal trunk. Trifurcation vessels are patent though the posterior tibial artery is diminutive and not well seen be yond the mid leg level. The peroneal artery provides collateral supply to the posterior tibial artery and allows for two-vess el runoff to the hindfoot. Left: Segmental moderate stenoses common iliac artery. Segmental severe stenoses internal iliac artery. Segmental mild to moderate stenosis PSA. PFA is patent with mild to moderate metastatic change. SFA occlusion 1.5 cm beyond its origin. Reconstitution of the upper popliteal artery with scattered mild to moderate prostatic calcifications . Normal take off anterior tibial artery. Moderate to severe atherosclerotic changes tibial peroneal tr unk. Peroneal and posterior tibial artery is diminutive. Posterior tibial artery no longer seen beyond the mid leg. Neither anterior tibial or peroneal arteries are seen beyond the distal third leg. IMPRESSION: SOFT TISSUE/BONES: 1. SEVERE GENERALIZED ANASARCA CHANGE. CORRELATE FOR FLUID OVERLOAD STATE. THERE IS ALSO A SMALL LEFT PLEURAL EFFUSION WITH ADJACENT ATELECTASIS. 2. LARGE MIDLINE AND INFERIOR SACRAL DECUBITUS ULCER OVERLYING THE COCCYX AND EXTENDING RIGHT LATERAL LY , MEASURING 11.6 CM CRANIOCAUDAL BY 3.2 CM WIDE. MOTTLED MATERIAL WITHIN THE ULCER DEFECT PROBABLY PACKING MATERIAL. THE ULCER IS DEEP, FULL-THICKNESS CONTACTING OR NEARLY CONTACTING THE UNDERLYING B ONE. NO BONY DESTRUCTION SEEN TO CLEARLY INDICATE OSTEOMYELITIS. 3. EXTENSION OF SUBCUTANEOUS AIR COLLECTION RIGHT LATERALLY FROM THE ULCER, THIS AREA MEASURES 5.6 X 1.7 CM. CORRELATE TO ENSURE COMPLETE DEBRIDEMENT OF THE ULCER AND EXCLUDE INFECTION OR TISSUE NECROSI S TRACKING AWAY FROM THE ULCER SITE, DEEP TO THE SKIN SURFACE. 4. SUPERIOR ENDPLATE FRACTURES THROUGHOUT THE VISUALIZED LOWER THORACIC AND LUMBAR SPINE PROBABLY SUB ACUTE AND CHRONIC (NO MORE THAN 15% HEIGHT LOSS). ADDITIONAL BILATERAL SACRAL ALAR FRACTURES PROBABLY CHRONIC. OBTURATOR RING PELVIC FRACTURES SUBACUTE OR CHRONIC. RIGHT VASCULATURE: 5. Moderate to severe atherosclerotic changes within the right lower extremity including severe focal stenosis involving the external iliac artery and THERMODYNAMICS PROFESSOR. 6. SFA occlusion 1.5 cm from its origin. Reconstitution of the popliteal artery. 7. Diminutive posterior tibial artery not seen beyond the mid leg level. Peroneal artery provides col lateral supply to the posterior tibial artery and allows for two-vessel runoff to the hindfoot. LEFT VASCULATURE: 8. Moderate to severe atherosclerotic changes throughout the lower extremity including severe stenose s within the internal iliac artery. 9. SFA occlusion 1.5 cm beyond its origin. Reconstitution of the upper popliteal artery. 10. Peroneal and posterior tibial arteries are diminutive. 11. Posterior tibial artery is no longer seen beyond the mid leg. Neither anterior tibial or peroneal arteries are seen beyond the distal third leg. ABDOMEN PELVIS: 12. Moderate stool burden with mild circumferential wall thickening of the distal sigmoid and rectum where large amount of stool distends the rectum up to 8.3 cm wide. Correlate to exclude fecal impacti on and colitis.
--- NOTE | 2024-06-06 12:55 | P.PN ---
Subjective Progress Note Date: 06/06/24 Principal diagnosis: Bilateral lower extremity wounds Patient is seen and examined today as a follow-up. No acute changes through the night. Wound cultures are finalized. Infectious diseases following. She is status post excisional debridement with skin substitute placed. She has been afebrile. Leukocytosis resolved. Plan is for subacute rehab at discharge Objective - Vital Signs Vital signs: Vital Signs Temp 97.3 F L 06/06/24 07:28 Pulse 82 06/06/24 09:09 Resp 18 06/06/24 07:28 BP 137/81 06/06/24 07:28 Pulse Ox 96 06/06/24 07:28 FiO2 Intake & Output 06/05/24 06/06/24 06/06/24 18:59 06:59 18:59 Output Total 1400 550 Balance -1400 -550 Output: Urine 1400 550 Other: Voiding Method Indwelling Catheter - Exam General appearance: The patient is alert, oriented, appears in no acute distress. HET: Head is normocephalic and atraumatic. Pupils are equal and reactive. Neck: Supple. Abdomen: Soft, nondistended. Extremities: Bilateral lower extremities with dressings clean dry and intact. Neurological: Alert and oriented. - Labs CBC & Chem 7: 06/04/24 06:11 06/04/24 06:11 Labs: Abnormal Lab Results - Last 24 Hours (Table) 06/05/24 06/05/24 06/05/24 Range/Units 11:54 16:40 21:17 POC Glucose (mg/dL) 337 H 236 H 134 H (70-110) mg/dL 06/06/24 Range/Units 05:52 POC Glucose (mg/dL) 246 H (70-110) mg/dL Assessment and Plan Assessment: 1. Bilateral lower extremity chronic wounds status post excisional debridement and skin substitute application 2. Malnutrition 3. Lower extremity weakness, nonambulatory 4. Sacral decubitus ulcer Plan: 1. Daily dressing change to b/l lower extremities as directed 2. Antibiotics per recommendations from ID 3. Patient is cleared from vascular surgery for discharge. Patient to follow- up with vascular surgery in outpatient setting Thank you for this consultation. The impression and plan of care has been dictated as directed. Dr. Scherer I performed a history and examination of this patient, discussed the same with the dictator. I agree with the dictator's note ,documented as a scribe. Any additional findings or plans will be noted.
--- NOTE | 2024-06-06 15:57 | P.PN ---
Subjective Progress Note Date: 06/05/24 Principal diagnosis: Reason for follow-up is sacral pressure ulcer bilateral lower extremity wound and bacteremia Patient is a 64-year-old female with multiple comorbidities initial presentation to the hospital with worsening sacral wound also have a positive blood culture and extensive wound to bilateral lower extremity patient is status post bedside debridement of the sacral wound.Patient is status post sharp excisional debridement of bilateral lower extremity wound and deep cultures completed on 05/24/2024, patient is status post repeat sharp excisional debride ment of bilateral lower extremity wound completed on 06/01/2024. On today's evaluation that is 06/05/2024, Patient is afebrile patient is currently on room air and denies having any shortness of breath, the patient denies any chest pain or cough, the patient denies any nausea vomiting did not have any abdominal pain and no diarrhea pain to the lower extremity wound is currently controlled. No new lab has been obtained today Objective - Vital Signs Vital signs: Vital Signs Temp 97.3 F L 06/05/24 07:24 Pulse 80 06/05/24 11:19 Resp 18 06/05/24 07:37 BP 149/87 06/05/24 07:24 Pulse Ox 96 06/05/24 07:24 FiO2 Intake & Output 06/04/24 06/05/24 06/05/24 18:59 06:59 18:59 Output Total 825 500 Balance -825 -500 Output: Urine 825 500 Other: Voiding Method Indwelling Catheter Indwelling Catheter Indwelling Catheter # Bowel Movements 1 - Exam GENERAL DESCRIPTION: Middle-age female lying in bed in no distress RESPIRATORY SYSTEM: Unlabored breathing , decreased breath sounds at bases HEART: S1 S2 regular rate and rhythm , ABDOMEN: Soft , no tenderness EXTREMITIES: Bilateral lower extremity wounds are currently dressed no drainage on the dressing - Labs CBC & Chem 7: 06/04/24 06:11 06/04/24 06:11 Labs: Abnormal Lab Results - Last 24 Hours (Table) 06/04/24 06/05/24 06/05/24 Range/Units 20:45 06:09 11:54 POC Glucose (mg/dL) 173 H 369 H 337 H (70-110) mg/dL Assessment and Plan (1) Stage IV pressure ulcer of sacral region Current Visit: Yes Status: Acute Code(s): L89.154 - PRESSURE ULCER OF SACRAL REGION, STAGE 4 SNOMED Code(s): 59993445926099 (2) Open wound of both lower extremities Current Visit: Yes Status: Acute Code(s): S81.801A - UNSPECIFIED OPEN WOUND, RIGHT LOWER LEG, INITIAL ENCOUNTER; S81.802A - UNSPECIFIED OPEN WOUND, LEFT LOWER LEG, INITIAL ENCOUNTER SNOMED Code(s): 41222821 (3) Bacteremia Current Visit: Yes Status: Acute Code(s): R78.81 - BACTEREMIA SNOMED Code(s): 8881243 Plan: 1patient with infected sacral pressure ulcer stage IV with a local culture positive for MSSA Pseudomonas and Klebsiella patient is covered with cefepime and Flagyl 2-positive blood culture with gram-positive cocci still waiting for final ID covered with the vancomycin dosing while Watching her creatinine closely 3-bilateral lower extremity pressure ulcer patient is status post surgical debridement and cultures currently growing MRSA and and also VRE that is resistant to daptomycin 4- patient to continue with cefepime and Flagyl on the basis of previous cultures from her sacral wound with a plan for 6-week course of treatment total including the days of antibiotics patient has received here 5-patient also grew VRE from lower extremity wounds patient is status post repeat debridement of the leg wounds on 06/01/2024, 6patient is afebrile and the patient white count has normalized, 7- Ptto continue with oral Zyvox 600 mg twice a day to finish a 4 to 6-week course of therapy Dictation was produced using [email or web address] dictation software. please excuse any grammatical, word or spelling errors. Time with Patient: Less than 30
--- NOTE | 2024-06-06 15:58 | P.PN ---
Subjective Progress Note Date: 06/06/24 Principal diagnosis: Reason for follow-up is sacral pressure ulcer bilateral lower extremity wound and bacteremia Patient is a 64-year-old female with multiple comorbidities initial presentation to the hospital with worsening sacral wound also have a positive blood culture and extensive wound to bilateral lower extremity patient is status post bedside debridement of the sacral wound.Patient is status post sharp excisional debridement of bilateral lower extremity wound and deep cultures completed on 05/24/2024, patient is status post repeat sharp excisional debride ment of bilateral lower extremity wound completed on 06/01/2024. On today's evaluation that is 06/06/2024, patient has been afebrile, patient is breathing comfortably and is currently on room air, patient denies having any significant cough no chest pain shortness of breath, patient denies nausea vomi ting or diarrhea and no abdominal pain, mention feeling better no new symptoms No new labs Objective - Vital Signs Vital signs: Vital Signs Temp 97.3 F L 06/06/24 07:28 Pulse 82 06/06/24 09:09 Resp 18 06/06/24 07:45 BP 137/81 06/06/24 07:28 Pulse Ox 96 06/06/24 07:28 FiO2 Intake & Output 06/05/24 06/06/24 06/06/24 18:59 06:59 18:59 Output Total 1400 550 Balance -1400 -550 Output: Urine 1400 550 Other: Voiding Method Indwelling Catheter Indwelling Catheter - Exam GENERAL DESCRIPTION: Middle-age female lying in bed in no distress RESPIRATORY SYSTEM: Unlabored breathing , decreased breath sounds at bases HEART: S1 S2 regular rate and rhythm , ABDOMEN: Soft , no tenderness EXTREMITIES: Bilateral lower extremity wounds are currently dressed no drainage on the dressing - Labs CBC & Chem 7: 06/04/24 06:11 06/04/24 06:11 Labs: Abnormal Lab Results - Last 24 Hours (Table) 06/05/24 06/05/24 06/06/24 Range/Units 16:40 21:17 05:52 POC Glucose (mg/dL) 236 H 134 H 246 H (70-110) mg/dL 06/06/24 Range/Units 11:38 POC Glucose (mg/dL) 212 H (70-110) mg/dL Assessment and Plan (1) Stage IV pressure ulcer of sacral region Current Visit: Yes Status: Acute Code(s): L89.154 - PRESSURE ULCER OF SACRAL REGION, STAGE 4 SNOMED Code(s): 64818996159024 (2) Open wound of both lower extremities Current Visit: Yes Status: Acute Code(s): S81.801A - UNSPECIFIED OPEN WOUND, RIGHT LOWER LEG, INITIAL ENCOUNTER; S81.802A - UNSPECIFIED OPEN WOUND, LEFT LOWER LEG, INITIAL ENCOUNTER SNOMED Code(s): 28749455 (3) Bacteremia Current Visit: Yes Status: Acute Code(s): R78.81 - BACTEREMIA SNOMED Code(s): 9782619 Plan: 1patient with infected sacral pressure ulcer stage IV with a local culture positive for MSSA Pseudomonas and Klebsiella patient is covered with cefepime and Flagyl 2-positive blood culture with gram-positive cocci still waiting for final ID covered with the vancomycin dosing while Watching her creatinine closely 3-bilateral lower extremity pressure ulcer patient is status post surgical debridement and cultures currently growing MRSA and and also VRE that is resistant to daptomycin 4- patient to continue with cefepime and Flagyl on the basis of previous cultures from her sacral wound with a plan for 6-week course of treatment total including the days of antibiotics patient has received here 5-patient also grew VRE from lower extremity wounds patient is status post repeat debridement of the leg wounds on 06/01/2024, 6patient is afebrile and the patient white count has normalized, 7-patient is currently being treated with oral Zyvox 600 mg twice a day to finish a 4 to 6-week course of therapy, depending upon clinical response currently waiting for placement Dictation was produced using [employer] dictation software. please excuse any grammatical, word or spelling errors. Time with Patient: Less than 30
[2024-06-06 16:42] LABS: Glucose,Whole Blood 56 mg/dL (70-110)
[2024-06-06 17:16] LABS: Glucose,Whole Blood 62 mg/dL (70-110)
[2024-06-06 17:36] LABS: Glucose,Whole Blood 77 mg/dL (70-110)
[2024-06-06 18:33] LABS: Glucose,Whole Blood 152 mg/dL (70-110)
[2024-06-06 21:08] LABS: Glucose,Whole Blood 89 mg/dL (70-110)
--- NOTE | 2024-06-07 00:46 | P.PN ---
Subjective Progress Note Date: 06/04/24 This is a 64-year-old female who has been at [facility] and followed by Dr. Mcpherson while there. Comes in for an infected sacral ulcer with culture showing MSSA, Klebsiella and Pseudomonas. She has gram positive blood cultures. Also with extensive lower extremity wounds. Patient is continued on a combination of IV cefepime IV vancomycin and oral Flagyl with ID and surgery following closely. Patient has undergone vascular debridement of the sacral wound. She does need a PICC line for outpatient antibiotic therapy. Continues on Santyl and local wound care of the sacrum. CT of the abdomen on the did reveal fecal impaction yesterday patient had received dulcolax and soap suds enema and now she has been moving her bowels. 05/22/2024 Patient seen and evaluated in follow-up today with infectious disease and general surgery following. Patient maintained on antibiotics per infectious disease and has been awaiting repeat blood culture results to be finalized to determine discharge antibiotics. Patient was evaluated by vascular surgery last week and recommend outpatient follow-up if the bilateral heel and foot wounds are not healing and suggest possibly bilateral AKA in the outpatient setting. Family is concerned about her heel wounds not being addressed and how well they transport her back and forth from vascular surgery clinic. Plan is for patient to return to [facility] and currently awaiting cultures and IV antibiotic recommendations per ID. Patient is afebrile, denies chest pain or shortness of breath and reports the breathing treatments are helping. Patient is on bowel regimen and will continue as patient is passing her bowels. Blood sugars are mildly elevated although dropped drastically overnight and will transition long- acting to daily and continue with sliding scale. Encouraged oral intake and will need PT/OT therapy evaluation as well as case management on the case as patient plans on returning to [facility]. 05/23/2024 Patient is seen in follow-up today with family at the bedside and discussed further with Dr. Horn's group from vascular surgery and plans for possible bilateral lower extremity debridement and hopeful for deep tissue cultures on Wednesday. Patient will be n.p.o. and recommend monitoring sugars closely. Blood sugars have been elevated today and insulins have been adjusted. Patient is afebrile with no reports of chest pain or shortness of breath. Patient does have a PICC line and will be continued on IV antibiotics. Infectious diseases following. 05/24/2024 Patient is seen in follow-up today made n.p.o. as patient is scheduled to undergo debridement with Dr. Horn of bilateral lower chavez area and will await deep cultures. This was discussed with Dr. Horn prior to surgical intervention. Long discussion was had about overall prognosis and probable still need for bilateral AKA down the line although patient unwilling at this time and willing to proceed with cultures. Patient does have a PICC line with infectious disease following and will await deep cultures to determine discharge antibiotics. Plan is for patient to return to [facility] on discharge. Continue monitoring sugars closely as they are extremely uncontrolled. 05/25/2024 Patient is seen this morning status post debridement of bilateral lower extremity shins with Dr. Horn. Awaiting cultures to determine discharge antibiotics and patient is maintained on antibiotics per ID recommendations with a PICC line. Plan will be for her to return to [facility] with antibiotic therapy and wound care. Patient's blood sugars have been up and down and will continue current regimen and adjust as needed. Patient is not compliant with diet and diabetic choices. Patient is afebrile and white count mildly trending down and will continue current regimen. Recommend frequent position changes and offloading of the sacral area as patient continues to report severe pain. 05/26/2024 Patient evaluated today status post debridement day 2 of the bilateral lower extremity shins with dr. Horn. Patient is awaiting wound cultures preliminary showing staph aureus. Potassium today 3.4. White blood cell count 11.80. Blood glucose remains elevated ranging 250-400s. 05/27/2024 Patient is lying in the bed. Awake and alert. Currently on room air. No fever no chills. No cough or sputum production. No nausea vomiting or diarrhea. Denied any worsening pain in the legs. Laboratory data reviewed from yesterday. Vancomycin trough level is 14.3. Cultures from 05/24/2024 Corynebacterium and MRSA. Currently on vancomycin.. Patient is s/p debridement of the bilateral lower extremity chavez region by Dr. Horn. Postoperative day 3 05/28/2024 Patient is resting in bed. Awake alert and oriented x 3. Afebrile. Currently on room air. No complaints of chest pain or shortness of breath. No nausea vomiting abdominal pain. Bilateral lower extremity wounds are wrapped. Remains on IV antibiotics. Laboratory data reviewed. Blood sugar was 377 this morning. Continued on insulin regimen. 05/29/2024 Patient is resting in the bed. Awake alert oriented x 3. Afebrile. No nausea vomiting abdominal pain or diarrhea. Continued on IV antibiotics of vancomycin and cefepime. ID is on board. Possible discharge to rehab with ID final recommendations. Laboratory data showed blood sugar went up to 548 this morning. Other laboratory showed WBC 12.8 hemoglobin 10.2 and platelets 444 sodium 129 potassium 4.4 chloride 101 bicarb is 24 BUN 19 and creatinine 0.24.. 05/30/2024 Patient is resting in the bed. Awake alert and oriented x 3. No complaints of chest pain or shortness of breath. Bilateral lower extremity wound pain is controlled. No fever. No other acute overnight issues. Patient is being continued on antibiotics. Wound cultures growing Corynebacterium species and MRSA and Enterococcus. Patient is on antibiotics now, cefepime and linezolid. And Flagyl. Laboratory data showed WBC 11.1 hemoglobin 10.4 and platelets 389 sodium 136 potassium 4.3 chloride 100 bicarb is 25.7 BUN 19.6 and creatinine 0.3 and blood sugar 370. ID and vascular surgery is on board. 06/01/2024 Patient underwent sharp excisional debridement bilateral lower extremity wound today postoperative day 0 by vascular surgery. Patient is otherwise breathing comfortably. On room air. No chest pain or shortness of breath. Bilateral lower extremity pain is fairly controlled. No nausea vomiting abdominal pain or diarrhea. Tolerating oral diet. ID and vascular surgery is on board. 06/02/2024 Patient is awake alert and oriented x 3. No complaints of chest pain or shortness of breath. Sacral ulcer pain and bilateral lower extremity pain controlled with medications. Patient has been afebrile. Postoperative #1 status post sharp excisional debridement of bilateral lower extremity wounds. 06/03/2024 Patient is awake alert and oriented x 3. No complaints of chest pain or shortness of breath. Bilateral lower extremity pain is controlled. Patient has been afebrile. No nausea vomiting abdominal pain or diarrhea. No other acute overnight issues. Patient is being continued on antibiotics cefepime, metronidazole and Zyvox. ID and vascular surgery is on board. 06/04/2024 Patient is lying in the bed. Awake and oriented x 3. On room air. No complaints of chest pain or shortness of breath. Bilateral lower abdominal pain is controlled. Patient is being continued on Dilaudid. Laboratory data showed WBC 9.1 hemoglobin 10.8 and platelets 334 BUN 23.4 and creatinine 0.3 and blood sugar is 277. Current medications reviewed. Review of Systems Constitutional: Denied any fatigue denied any fever. Cardio vascular: denied any chest pain, palpitations Gastrointestinal: denied any nausea, vomiting, diarrhea, patient reports is passing bowels Pulmonary: Denied any shortness of breath cough Neurologic denied any new focal deficits, reports continued diffuse weakness, reports continued discomfort of the lower extremities All inpatient medications were reviewed and appropriate changes in these medications as dictated in the interval history and assessment and plan. PHYSICAL EXAMINATION: GENERAL: The patient is sleeping but easily arousable, alert and oriented x3, not in any acute distress. Well developed, thin built, elderly appearing, cachectic HEENT: Pupils are round and equally reacting to light. EOMI. No scleral icterus. No conjunctival pallor. Normocephalic, atraumatic. No pharyngeal erythema. No thyromegaly. CARDIOVASCULAR: S1 and S2 present. No murmurs, rubs, or gallops. PULMONARY: Diminished breath sounds bilaterally otherwise chest is clear to auscultation, no wheezing or crackles. ABDOMEN: Soft, nontender, nondistended, normoactive bowel sounds. No palpable organomegaly. Having bowel movements now. Thin MUSCULOSKELETAL: No joint swelling or deformity. EXTREMITIES: No cyanosis, clubbing, or pedal edema. Offloading boots noted bilaterally to lower heels NEUROLOGICAL: Gross neurological examination did not reveal any focal deficits. Diffusely weak SKIN: No rashes. Stage IV sacral wound bilateral extensive lower extremity wo unds currently dressed. Bilateral lower extremity surgical dressings are dry and intact of bilateral lower chavez Assessment -Infected stage IV sacral pressure injury status post surgical debridement and continues on santyl local wound care. Wound cultures from 05/24/2024 showed Corynebacterium and MRSA. Also growing Enterococcus/VRE. Patient is status post sharp excisional debridement of bilateral lower extremity wounds again on 06/01/2024. -Leukocytosis, possibly secondary to above, trending down -Bilateral lower extremity wound on the calfs down to the tendon may require amputation however vascular would like patient to be opitimized medically and plan for amputations outpatient if patient and family decide to go this route. Patient is status post surgical debridement with vascular surgery on 05/24/2024 and currently awaiting cultures -Gram positive cocci bacteremia, repeat cultures have been negative -Severe peripheral arterial disease; Bilateral SFA occlusion, severe [employer], iliac stenosis and severe intrapopliteal stenosis left greater than right -Fecal impaction as noted on CT imaging. Improved, patient having bowel movements now -Chronic medical debility and non-weight bearing. -Hx of COPD with no acute exacerbation -Diabetes Mellitus type 2 with hyperglycemia and hypoglycemia -Hx of hypertension -Hyperlipidemia -Hx of PE in the past not currently on oral anticoagulation -Moderate protein calorie malnutrition -Chronic nicotine use GI prophylaxis: IV protonix DVT prophylaxis: Subcu heparin Full Code Plan Patient is status post excisional debridement of bilateral lower extremity again on 06/01/2024. Continue IV antibiotics per ID recommendations. Wound cultures growing MRSA and Corynebacterium. Patient will be continued on cefepime, Flagyl and Zyvox. Lexapro will be discontinued.. Continue local wound care Vascular has evaluated the patient and recommends follow up outpatient and will need medical clearance for leg amputations, family is concerned on getting her back and forth to appointments. Patient is status post surgical debridement with deep tissue cultures on 05/24/2024. Follow-up final blood culture report. Continue on bowel regimen as patient is now having bowel movements. Continue accuchecks ACHS and sliding scale and will adjust insulins as patient has been having elevated blood sugars during the day and extremely low blood sugars overnight. Continue oral lasix Continue nicotine patch Repeat blood work in the AM, white count remains elevated Patient remains afebrile and will follow-up on repeat labs in the morning Patient has received a PICC line and will be awaiting deep cultures from lower extremities to determine discharge antibiotics Plan is for patient to return to [facility] on discharge Objective - Vital Signs Vital signs: Vital Signs Temp 98.0 F 06/04/24 19:42 Pulse 77 06/04/24 20:14 Resp 20 06/04/24 20:14 BP 123/70 06/04/24 19:42 Pulse Ox 99 06/04/24 19:42 FiO2 Intake & Output 06/04/24 06/04/24 06/05/24 06:59 18:59 06:59 Output Total 400 825 Balance -400 -825 Output: Urine 400 825 Other: Voiding Method Indwelling Catheter Indwelling Catheter Indwelling Catheter - Labs CBC & Chem 7: 06/04/24 06:11 06/04/24 06:11 Labs: Abnormal Lab Results - Last 24 Hours (Table) 06/04/24 06/04/24 06/04/24 Range/Units 06:10 06:11 06:11 RBC 3.85 L (4.10-5.20) X 10*6/uL Hgb 10.8 L (12.0-15.0) g/dL Hct 35.3 L (37.2-46.3) % MCHC 30.6 L (32.0-37.0) g/dL RDW 18.6 H (11.5-14.5) % Immature Gran # 0.07 H (0.00-0.04) X 10*3/uL Basophils # 0.12 H (0.00-0.10) X 10*3/uL Creatinine 0.3 L (0.6-1.5) mg/dL BUN/Creatinine Ratio 78.00 H (12.00-20.00) Ratio Glucose 289 H (70-110) mg/dL POC Glucose (mg/dL) 277 H (70-110) mg/dL Calcium 8.4 L (8.7-10.3) mg/dL 06/04/24 06/04/24 Range/Units 12:11 20:45 RBC (4.10-5.20) X 10*6/uL Hgb (12.0-15.0) g/dL Hct (37.2-46.3) % MCHC (32.0-37.0) g/dL RDW (11.5-14.5) % Immature Gran # (0.00-0.04) X 10*3/uL Basophils # (0.00-0.10) X 10*3/uL Creatinine (0.6-1.5) mg/dL BUN/Creatinine Ratio (12.00-20.00) Ratio Glucose (70-110) mg/dL POC Glucose (mg/dL) 302 H 173 H (70-110) mg/dL Calcium (8.7-10.3) mg/dL
--- NOTE | 2024-06-07 00:49 | P.PN ---
Subjective Progress Note Date: 06/06/24 This is a 64-year-old female who has been at [facility] and followed by Dr. Mcpherson while there. Comes in for an infected sacral ulcer with culture showing MSSA, Klebsiella and Pseudomonas. She has gram positive blood cultures. Also with extensive lower extremity wounds. Patient is continued on a combination of IV cefepime IV vancomycin and oral Flagyl with ID and surgery following closely. Patient has undergone vascular debridement of the sacral wound. She does need a PICC line for outpatient antibiotic therapy. Continues on Santyl and local wound care of the sacrum. CT of the abdomen on the did reveal fecal impaction yesterday patient had received dulcolax and soap suds enema and now she has been moving her bowels. 05/22/2024 Patient seen and evaluated in follow-up today with infectious disease and general surgery following. Patient maintained on antibiotics per infectious disease and has been awaiting repeat blood culture results to be finalized to determine discharge antibiotics. Patient was evaluated by vascular surgery last week and recommend outpatient follow-up if the bilateral heel and foot wounds are not healing and suggest possibly bilateral AKA in the outpatient setting. Family is concerned about her heel wounds not being addressed and how well they transport her back and forth from vascular surgery clinic. Plan is for patient to return to [facility] and currently awaiting cultures and IV antibiotic recommendations per ID. Patient is afebrile, denies chest pain or shortness of breath and reports the breathing treatments are helping. Patient is on bowel regimen and will continue as patient is passing her bowels. Blood sugars are mildly elevated although dropped drastically overnight and will transition long- acting to daily and continue with sliding scale. Encouraged oral intake and will need PT/OT therapy evaluation as well as case management on the case as patient plans on returning to [facility]. 05/23/2024 Patient is seen in follow-up today with family at the bedside and discussed further with Dr. Horn's group from vascular surgery and plans for possible bilateral lower extremity debridement and hopeful for deep tissue cultures on Wednesday. Patient will be n.p.o. and recommend monitoring sugars closely. Blood sugars have been elevated today and insulins have been adjusted. Patient is afebrile with no reports of chest pain or shortness of breath. Patient does have a PICC line and will be continued on IV antibiotics. Infectious diseases following. 05/24/2024 Patient is seen in follow-up today made n.p.o. as patient is scheduled to undergo debridement with Dr. Horn of bilateral lower chavez area and will await deep cultures. This was discussed with Dr. Horn prior to surgical intervention. Long discussion was had about overall prognosis and probable still need for bilateral AKA down the line although patient unwilling at this time and willing to proceed with cultures. Patient does have a PICC line with infectious disease following and will await deep cultures to determine discharge antibiotics. Plan is for patient to return to [facility] on discharge. Continue monitoring sugars closely as they are extremely uncontrolled. 05/25/2024 Patient is seen this morning status post debridement of bilateral lower extremity shins with Dr. Horn. Awaiting cultures to determine discharge antibiotics and patient is maintained on antibiotics per ID recommendations with a PICC line. Plan will be for her to return to [facility] with antibiotic therapy and wound care. Patient's blood sugars have been up and down and will continue current regimen and adjust as needed. Patient is not compliant with diet and diabetic choices. Patient is afebrile and white count mildly trending down and will continue current regimen. Recommend frequent position changes and offloading of the sacral area as patient continues to report severe pain. 05/26/2024 Patient evaluated today status post debridement day 2 of the bilateral lower extremity shins with dr. Horn. Patient is awaiting wound cultures preliminary showing staph aureus. Potassium today 3.4. White blood cell count 11.80. Blood glucose remains elevated ranging 250-400s. 05/27/2024 Patient is lying in the bed. Awake and alert. Currently on room air. No fever no chills. No cough or sputum production. No nausea vomiting or diarrhea. Denied any worsening pain in the legs. Laboratory data reviewed from yesterday. Vancomycin trough level is 14.3. Cultures from 05/24/2024 Corynebacterium and MRSA. Currently on vancomycin.. Patient is s/p debridement of the bilateral lower extremity chavez region by Dr. Horn. Postoperative day 3 05/28/2024 Patient is resting in bed. Awake alert and oriented x 3. Afebrile. Currently on room air. No complaints of chest pain or shortness of breath. No nausea vomiting abdominal pain. Bilateral lower extremity wounds are wrapped. Remains on IV antibiotics. Laboratory data reviewed. Blood sugar was 377 this morning. Continued on insulin regimen. 05/29/2024 Patient is resting in the bed. Awake alert oriented x 3. Afebrile. No nausea vomiting abdominal pain or diarrhea. Continued on IV antibiotics of vancomycin and cefepime. ID is on board. Possible discharge to rehab with ID final recommendations. Laboratory data showed blood sugar went up to 548 this morning. Other laboratory showed WBC 12.8 hemoglobin 10.2 and platelets 444 sodium 129 potassium 4.4 chloride 101 bicarb is 24 BUN 19 and creatinine 0.24.. 05/30/2024 Patient is resting in the bed. Awake alert and oriented x 3. No complaints of chest pain or shortness of breath. Bilateral lower extremity wound pain is controlled. No fever. No other acute overnight issues. Patient is being continued on antibiotics. Wound cultures growing Corynebacterium species and MRSA and Enterococcus. Patient is on antibiotics now, cefepime and linezolid. And Flagyl. Laboratory data showed WBC 11.1 hemoglobin 10.4 and platelets 389 sodium 136 potassium 4.3 chloride 100 bicarb is 25.7 BUN 19.6 and creatinine 0.3 and blood sugar 370. ID and vascular surgery is on board. 06/01/2024 Patient underwent sharp excisional debridement bilateral lower extremity wound today postoperative day 0 by vascular surgery. Patient is otherwise breathing comfortably. On room air. No chest pain or shortness of breath. Bilateral lower extremity pain is fairly controlled. No nausea vomiting abdominal pain or diarrhea. Tolerating oral diet. ID and vascular surgery is on board. 06/02/2024 Patient is awake alert and oriented x 3. No complaints of chest pain or shortness of breath. Sacral ulcer pain and bilateral lower extremity pain controlled with medications. Patient has been afebrile. Postoperative #1 status post sharp excisional debridement of bilateral lower extremity wounds. 06/03/2024 Patient is awake alert and oriented x 3. No complaints of chest pain or shortness of breath. Bilateral lower extremity pain is controlled. Patient has been afebrile. No nausea vomiting abdominal pain or diarrhea. No other acute overnight issues. Patient is being continued on antibiotics cefepime, metronidazole and Zyvox. ID and vascular surgery is on board. 06/04/2024 Patient is lying in the bed. Awake and oriented x 3. On room air. No complaints of chest pain or shortness of breath. Bilateral lower abdominal pain is controlled. Patient is being continued on Dilaudid. Laboratory data showed WBC 9.1 hemoglobin 10.8 and platelets 334 BUN 23.4 and creatinine 0.3 and blood sugar is 277. Current medications reviewed. 06/05/2024 Patient is resting in the bed. Awake alert and oriented x 3. No complaints of chest pain or shortness of breath pain is controlled. Continue on daily dressing changes. Blood sugars fairly controlled. Current medications reviewed. Vascular surgery and ID is on board. 06/06/2024 Patient is resting in the bed. Awake alert and oriented x 3. Currently involved in. Patient has been cannula antibiotics as per ID recommendations. Wound care and patient is cleared from surgical standpoint. Follow-up CBC and BMP tomorrow and anticipate discharge. Review of Systems Constitutional: Denied any fatigue denied any fever. Cardio vascular: denied any chest pain, palpitations Gastrointestinal: denied any nausea, vomiting, diarrhea, patient reports is passing bowels Pulmonary: Denied any shortness of breath cough Neurologic denied any new focal deficits, reports continued diffuse weakness, reports continued discomfort of the lower extremities All inpatient medications were reviewed and appropriate changes in these medications as dictated in the interval history and assessment and plan. PHYSICAL EXAMINATION: GENERAL: The patient is sleeping but easily arousable, alert and oriented x3, not in any acute distress. Well developed, thin built, elderly appearing, cachectic HEENT: Pupils are round and equally reacting to light. EOMI. No scleral icterus. No conjunctival pallor. Normocephalic, atraumatic. No pharyngeal erythema. No thyromegaly. CARDIOVASCULAR: S1 and S2 present. No murmurs, rubs, or gallops. PULMONARY: Diminished breath sounds bilaterally otherwise chest is clear to auscultation, no wheezing or crackles. ABDOMEN: Soft, nontender, nondistended, normoactive bowel sounds. No palpable organomegaly. Having bowel movements now. Thin MUSCULOSKELETAL: No joint swelling or deformity. EXTREMITIES: No cyanosis, clubbing, or pedal edema. Offloading boots noted bilaterally to lower heels NEUROLOGICAL: Gross neurological examination did not reveal any focal deficits. Diffusely weak SKIN: No rashes. Stage IV sacral wound bilateral extensive lower extremity wounds currently dressed. Bilateral lower extremity surgical dressings are dry and intact of bilateral lower chavze Assessment -Infected stage IV sacral pressure injury status post surgical debridement and continues on santyl local wound care. Wound cultures from 05/24/2024 showed Corynebacterium and MRSA. Also growing Enterococcus/VRE. Patient is status post sharp excisional debridement of bilateral lower extremity wounds again on 06/01/2024. -Leukocytosis, possibly secondary to above, trending down -Bilateral lower extremity wound on the calfs down to the tendon may require amputation however vascular would like patient to be opitimized medically and plan for amputations outpatient if patient and family decide to go this route. Patient is status post surgical debridement with vascular surgery on 05/24/2024 and currently awaiting cultures -Gram positive cocci bacteremia, repeat cultures have been negative -Severe peripheral arterial disease; Bilateral SFA occlusion, severe STAVE AND BOLT EQUALIZER, iliac stenosis and severe intrapopliteal stenosis left greater than right -Fecal impaction as noted on CT imaging. Improved, patient having bowel movements now -Chronic medical debility and non-weight bearing. -Hx of COPD with no acute exacerbation -Diabetes Mellitus type 2 with hyperglycemia and hypoglycemia -Hx of hypertension -Hyperlipidemia -Hx of PE in the past not currently on oral anticoagulation -Moderate protein calorie malnutrition -Chronic nicotine use GI prophylaxis: IV protonix DVT prophylaxis: Subcu heparin Full Code Plan Patient is status post excisional debridement of bilateral lower extremity again on 06/01/2024. Continue IV antibiotics per ID recommendations. Wound cultures growing MRSA and Corynebacterium. Patient will be continued on cefepime, Flagyl and Zyvox. Lexapro will be dis continued.. Continue local wound care Vascular has evaluated the patient and recommends follow up outpatient and will need medical clearance for leg amputations, family is concerned on getting her back and forth to appointments. Patient is status post surgical debridement with deep tissue cultures on 05/24/2024. Follow-up final blood culture report. Continue on bowel regimen as patient is now having bowel movements. Continue accuchecks ACHS and sliding scale and will adjust insulins as patient has been having elevated blood sugars during the day and extremely low blood sugars overnight. Continue oral lasix Continue nicotine patch Repeat blood work in the AM, white count remains elevated Patient remains afebrile and will follow-up on repeat labs in the morning Patient has received a PICC line and will be awaiting deep cultures from lower extremities to determine discharge antibiotics Plan is for patient to return to [facility] on discharge. Anticipate discharge with final ID recommendations. Objective - Vital Signs Vital signs: Vital Signs Temp 99.8 F H 06/06/24 19:35 Pulse 100 06/06/24 19:35 Resp 18 06/06/24 19:35 BP 125/72 06/06/24 19:35 Pulse Ox 99 06/06/24 19:35 FiO2 Intake & Output 06/06/24 06/06/24 06/07/24 06:59 18:59 06:59 Output Total 550 500 Balance -550 -500 Output: Urine 550 500 Other: Voiding Method Indwelling Catheter # Bowel Movements 1 - Labs CBC & Chem 7: 06/04/24 06:11 06/04/24 06:11 Labs: Abnormal Lab Results - Last 24 Hours (Table) 06/06/24 06/06/24 06/06/24 Range/Units 05:52 11:38 16:40 POC Glucose (mg/dL) 246 H 212 H 56 L (70-110) mg/dL 06/06/24 06/06/24 Range/Units 17:14 18:32 POC Glucose (mg/dL) 62 L 152 H (70-110) mg/dL
[2024-06-07 02:04] LABS: Glucose,Whole Blood 70 mg/dL (70-110)
[2024-06-07 05:57] LABS: Glucose,Whole Blood 170 mg/dL (70-110)
[2024-06-07 10:38] LABS: Basophils # (A) 0.14 X 10*3/uL (0.00-0.10); Basophils % (A) 1.5 %; Eosinophils # (A) 0.11 X 10*3/uL (0.04-0.35); Eosinophils % (A) 1.1 %; HCT 35.2 % (37.2-46.3); HGB 10.9 g/dL (12.0-15.0); Lymphocytes # (A) 1.85 X 10*3/uL (0.90-5.00); Lymphocytes % (A) 19.2 %; MCV 90.5 FL (80.0-97.0); Mean Platelet Volume 10.2 FL (9.5-12.2); Monocytes # (A) 0.31 X 10*3/uL (0.20-1.00); Monocytes % (A) 3.2 %; NRBC Per 100 WBC 0 X 10*3/uL (0.00-0.01); Neutrophils # (A) 7.19 X 10*3/uL (1.80-7.70); Neutrophils % (A) 74.5 %; Platelet Count 242 X 10*3/uL (140-440); RBC 3.89 X 10*6/uL (4.10-5.20); RDW 18.5 % (11.5-14.5); WBC 9.65 X 10*3/uL (4.50-10.00)
[2024-06-07 10:50] LABS: BUN/Creat Ratio 71.67 Ratio (12.00-20.00); Blood Urea Nitrogen 21.5 mg/dL (9.0-27.0); Glucose 128 mg/dL (70-110)
[2024-06-07 10:51] LABS: Chloride 104 mmol/L (96-109); Potassium 3.1 mmol/L (3.5-5.5); Sodium 137 mmol/L (135-145)
[2024-06-07 10:52] LABS: Calcium 8.4 mg/dL (8.7-10.3); Carbon Dioxide 25.7 mmol/L (21.6-31.8)
[2024-06-07 11:26] LABS: Glucose,Whole Blood 175 mg/dL (70-110)
--- NOTE | 2024-06-07 12:23 | P.PN ---
Subjective Progress Note Date: 06/07/24 Principal diagnosis: Reason for follow-up is sacral pressure ulcer bilateral lower extremity wound and bacteremia Patient is a 64-year-old female with multiple comorbidities initial presentation to the hospital with worsening sacral wound also have a positive blood culture and extensive wound to bilateral lower extremity patient is status post bedside debridement of the sacral wound.Patient is status post sharp excisional debridement of bilateral lower extremity wound and deep cultures completed on 05/24/2024, patient is status post repeat sharp excisional debride ment of bilateral lower extremity wound completed on 06/01/2024. On today's evaluation that is 06/07/2024, Patient is afebrile this morning patient denies having any chest pain shortness of breath or cough, the patient is breathing comfortably and currently on room air, patient denies any abdominal pain no diarrhea no nausea no vomiting, has been complaining of some oral thrush. Patient white count is 9.65, creatinine 0.3 Objective - Vital Signs Vital signs: Vital Signs Temp 97.9 F 06/07/24 07:50 Pulse 84 06/07/24 08:50 Resp 15 06/07/24 08:00 BP 123/69 06/07/24 07:50 Pulse Ox 98 06/07/24 07:50 FiO2 Intake & Output 06/06/24 06/07/24 06/07/24 18:59 06:59 18:59 Intake Total 120 Output Total 500 400 Balance -500 -400 120 Intake: Oral 120 Output: Urine 500 400 Other: Voiding Method Indwelling Catheter Indwelling Catheter # Bowel Movements 1 - Exam GENERAL DESCRIPTION: Middle-age female lying in bed in no distress RESPIRATORY SYSTEM: Unlabored breathing , decreased breath sounds at bases HEART: S1 S2 regular rate and rhythm , ABDOMEN: Soft , no tenderness EXTREMITIES: Bilateral lower extremity wounds are currently dressed no drainage on the dressing - Labs CBC & Chem 7: 06/07/24 07:26 06/07/24 07:26 Labs: Abnormal Lab Results - Last 24 Hours (Table) 06/06/24 06/06/24 06/06/24 Range/Units 16:40 17:14 18:32 RBC (4.10-5.20) X 10*6/uL Hgb (12.0-15.0) g/dL Hct (37.2-46.3) % MCHC (32.0-37.0) g/dL RDW (11.5-14.5) % Immature Gran # (0.00-0.04) X 10*3/uL Basophils # (0.00-0.10) X 10*3/uL Potassium (3.5-5.5) mmol/L Creatinine (0.6-1.5) mg/dL BUN/Creatinine Ratio (12.00-20.00) Ratio Glucose (70-110) mg/dL POC Glucose (mg/dL) 56 L 62 L 152 H (70-110) mg/dL Calcium (8.7-10.3) mg/dL 06/07/24 06/07/24 06/07/24 Range/Units 05:55 07:26 07:26 RBC 3.89 L (4.10-5.20) X 10*6/uL Hgb 10.9 L (12.0-15.0) g/dL Hct 35.2 L (37.2-46.3) % MCHC 31.0 L (32.0-37.0) g/dL RDW 18.5 H (11.5-14.5) % Immature Gran # 0.05 H (0.00-0.04) X 10*3/uL Basophils # 0.14 H (0.00-0.10) X 10*3/uL Potassium 3.1 L (3.5-5.5) mmol/L Creatinine 0.3 L (0.6-1.5) mg/dL BUN/Creatinine Ratio 71.67 H (12.00-20.00) Ratio Glucose 128 H (70-110) mg/dL POC Glucose (mg/dL) 170 H (70-110) mg/dL Calcium 8.4 L (8.7-10.3) mg/dL 06/07/24 Range/Units 11:21 RBC (4.10-5.20) X 10*6/uL Hgb (12.0-15.0) g/dL Hct (37.2-46.3) % MCHC (32.0-37.0) g/dL RDW (11.5-14.5) % Immature Gran # (0.00-0.04) X 10*3/uL Basophils # (0.00-0.10) X 10*3/uL Potassium (3.5-5.5) mmol/L Creatinine (0.6-1.5) mg/dL BUN/Creatinine Ratio (12.00-20.00) Ratio Glucose (70-110) mg/dL POC Glucose (mg/dL) 175 H (70-110) mg/dL Calcium (8.7-10.3) mg/dL Assessment and Plan (1) Stage IV pressure ulcer of sacral region Current Visit: Yes Status: Acute Code(s): L89.154 - PRESSURE ULCER OF SACRAL REGION, STAGE 4 SNOMED Code(s): 76882643493019 (2) Open wound of both lower extremities Current Visit: Yes Status: Acute Code(s): S81.801A - UNSPECIFIED OPEN WOUND, RIGHT LOWER LEG, INITIAL ENCOUNTER; S81.802A - UNSPECIFIED OPEN WOUND, LEFT LOWER LEG, INITIAL ENCOUNTER SNOMED Code(s): 89028851 (3) Bacteremia Current Visit: Yes Status: Acute Code(s): R78.81 - BACTEREMIA SNOMED Code(s): 0633834 Plan: 1patient with infected sacral pressure ulcer stage IV with a local culture positive for MSSA Pseudomonas and Klebsiella patient is covered with cefepime and Flagyl 2-positive blood culture with gram-positive cocci still waiting for final ID covered with the vancomycin dosing while Watching her creatinine closely 3-bilateral lower extremity pressure ulcer patient is status post surgical debridement and cultures currently growing MRSA and and also VRE that is resistant to daptomycin 4- patient to continue with cefepime and Flagyl on the basis of previous cultures from her sacral wound with a plan for 6-week course of treatment total including the days of antibiotics patient has received here 5-patient also grew VRE from lower extremity wounds patient is status post repeat debridement of the leg wounds on 06/01/2024, 6patient is afebrile and the patient white count has normalized, patient to continue with oral Zyvox 600 mg twice a day to finish a 4 week course of therapy, depending upon clinical response 7oral thrush nystatin swish and swallow has been added Dictation was produced using [employer] software. please excuse any grammatical, word or spelling errors. Time with Patient: Less than 30
[2024-06-07] MEDS: NYSTATIN 100,000 UNIT/ML SUSP 500,000 UNIT/5 ML CUP PO SCH (12:27)
--- NOTE | 2024-06-07 14:27 | P.PN ---
Subjective Progress Note Date: 06/07/24 Principal diagnosis: Bilateral lower extremity wounds Patient is seen and examined today as a follow-up. No acute changes through the night. Wound cultures are finalized. Infectious diseases following. She is status post excisional debridement with skin substitute placed. She has been afebrile. Leukocytosis resolved. Denies any pain. Plan is for subacute rehab at discharge Objective - Vital Signs Vital signs: Vital Signs Temp 97.9 F 06/07/24 07:50 Pulse 84 06/07/24 08:50 Resp 15 06/07/24 08:00 BP 123/69 06/07/24 07:50 Pulse Ox 98 06/07/24 07:50 FiO2 Intake & Output 06/06/24 06/07/24 06/07/24 18:59 06:59 18:59 Intake Total 120 Output Total 500 400 Balance -500 -400 120 Intake: Oral 120 Output: Urine 500 400 Other: Voiding Method Indwelling Catheter Indwelling Catheter # Bowel Movements 1 - Exam General appearance: The patient is alert, oriented, appears in no acute distres s. HET: Head is normocephalic and atraumatic. Pupils are equal and reactive. Neck: Supple. Abdomen: Soft, nondistended. Extremities: Bilateral lower extremities with dressings clean dry and intact. Neurological: Alert and oriented. - Labs CBC & Chem 7: 06/07/24 07:26 06/07/24 07:26 Labs: Abnormal Lab Results - Last 24 Hours (Table) 06/06/24 06/06/24 06/06/24 Range/Units 11:38 16:40 17:14 POC Glucose (mg/dL) 212 H 56 L 62 L (70-110) mg/dL 06/06/24 06/07/24 Range/Units 18:32 05:55 POC Glucose (mg/dL) 152 H 170 H (70-110) mg/dL Assessment and Plan Assessment: 1. Bilateral lower extremity chronic wounds status post excisional debridement and skin substitute application 2. Malnutrition 3. Lower extremity weakness, nonambulatory 4. Sacral decubitus ulcer Plan: 1. Daily dressing change to b/l lower extremities as directed 2. Antibiotics per recommendations from ID 3. Patient is cleared from vascular surgery for discharge. Patient to follow- up with vascular surgery in outpatient setting Thank you for this consultation. The impression and plan of care has been dictated as directed. Dr. Horn I performed a history and examination of this patient, discussed the same with the dictator. I agree with the dictator's note ,documented as a scribe. Any additional findings or plans will be noted.
--- NOTE | 2024-06-07 14:47 | P.PN ---
Subjective This is a 64-year-old female who has been at [facility] and followed by Dr. Mcpherson while there. Comes in for an infected sacral ulcer with culture showing MSSA, Klebsiella and Pseudomonas. She has gram positive blood cultures. Also with extensive lower extremity wounds. Patient is continued on a combination of IV cefepime IV vancomycin and oral Flagyl with ID and surgery following closely. Patient has undergone vascular debridement of the sacral wound. She does need a PICC line for outpatient antibiotic therapy. Continues on Santyl and local w ound care of the sacrum. CT of the abdomen on the did reveal fecal impaction yesterday patient had received dulcolax and soap suds enema and now she has been moving her bowels. 05/22/2024 Patient seen and evaluated in follow-up today with infectious disease and general surgery following. Patient maintained on antibiotics per infectious disease and has been awaiting repeat blood culture results to be finalized to determine discharge antibiotics. Patient was evaluated by vascular surgery last week and recommend outpatient follow-up if the bilateral heel and foot wounds are not healing and suggest possibly bilateral AKA in the outpatient setting. Family is concerned about her heel wounds not being addressed and how well they transport her back and forth from vascular surgery clinic. Plan is for patient to return to [facility] and currently awaiting cultures and IV antibiotic recomme ndations per ID. Patient is afebrile, denies chest pain or shortness of breath and reports the breathing treatments are helping. Patient is on bowel regimen and will continue as patient is passing her bowels. Blood sugars are mildly elevated although dropped drastically overnight and will transition long-acting to daily and continue with sliding scale. Encouraged oral intake and will need PT/OT therapy evaluation as well as case management on the case as patient plans on returning to [facility]. 05/23/2024 Patient is seen in follow-up today with family at the bedside and discussed further with Dr. Horn's group from vascular surgery and plans for possible bilateral lower extremity debridement and hopeful for deep tissue cultures on Wednesday. Patient will be n.p.o. and recommend monitoring sugars closely. Blood sugars have been elevated today and insulins have been adjusted. Patient is afebrile with no reports of chest pain or shortness of breath. Patient does have a PICC line and will be continued on IV antibiotics. Infectious diseases following. 05/24/2024 Patient is seen in follow-up today made n.p.o. as patient is scheduled to undergo debridement with Dr. Horn of bilateral lower chavez area and will await deep cultures. This was discussed with Dr. Horn prior to surgical intervention. Long discussion was had about overall prognosis and probable still need for bilateral AKA down the line although patient unwilling at this time and willing to proceed with cultures. Patient does have a PICC line with infectious disease following and will await deep cultures to determine discharge antibiotics. Plan is for patient to return to [facility] on discharge. Continue monitoring sugars closely as they are extremely uncontrolled. 05/25/2024 Patient is seen this morning status post debridement of bilateral lower extremity shins with Dr. Horn. Awaiting cultures to determine discharge antibiotics and patient is maintained on antibiotics per ID recommendations with a PICC line. Plan will be for her to return to [facility] with antibiotic therapy and wound care. Patient's blood sugars have been up and down and will continue current regimen and adjust as needed. Patient is not compliant with diet and diabetic choices. Patient is afebrile and white count mildly trending down and will continue current regimen. Recommend frequent position changes and offloading of the sacral area as patient continues to report severe pain. 05/26/2024 Patient evaluated today status post debridement day 2 of the bilateral lower extremity shins with dr. Horn. Patient is awaiting wound cultures preliminary showing staph aureus. Potassium today 3.4. White blood cell count 11.80. Blood glucose remains elevated ranging 250-400s. 05/27/2024 Patient is lying in the bed. Awake and alert. Currently on room air. No fever no chills. No cough or sputum production. No nausea vomiting or diarrhea. Denied any worsening pain in the legs. Laboratory data reviewed from yesterday. Vancomycin trough level is 14.3. Cultures from 05/24/2024 Corynebacterium and MRSA. Currently on vancomycin.. Patient is s/p debridement of the bilateral lower extremity chavez region by Dr. Horn. Postoperative day 3 05/28/2024 Patient is resting in bed. Awake alert and oriented x 3. Afebrile. Currently on room air. No complaints of chest pain or shortness of breath. No nausea vomiting abdominal pain. Bilateral lower extremity wounds are wrapped. Remains on IV antibiotics. Laboratory data reviewed. Blood sugar was 377 this morning. Continued on insulin regimen. 05/29/2024 Patient is resting in the bed. Awake alert oriented x 3. Afebrile. No nausea vomiting abdominal pain or diarrhea. Continued on IV antibiotics of vancomycin and cefepime. ID is on board. Possible discharge to rehab with ID final recommendations. Laboratory data showed blood sugar went up to 548 this morning. Other laboratory showed WBC 12.8 hemoglobin 10.2 and platelets 444 sodium 129 potassium 4.4 chloride 101 bicarb is 24 BUN 19 and creatinine 0.24.. 05/30/2024 Patient is resting in the bed. Awake alert and oriented x 3. No complaints of chest pain or shortness of breath. Bilateral lower extremity wound pain is controlled. No fever. No other acute overnight issues. Patient is being pb nued on antibiotics. Wound cultures growing Corynebacterium species and MRSA and Enterococcus. Patient is on antibiotics now, cefepime and linezolid. And Flagyl. Laboratory data showed WBC 11.1 hemoglobin 10.4 and platelets 389 sodium 136 potassium 4.3 chloride 100 bicarb is 25.7 BUN 19.6 and creatinine 0.3 and blood sugar 370. ID and vascular surgery is on board. 06/01/2024 Patient underwent sharp excisional debridement bilateral lower extremity wound today postoperative day 0 by vascular surgery. Patient is otherwise breathing comfortably. On room air. No chest pain or shortness of breath. Bilateral lower extremity pain is fairly controlled. No nausea vomiting abdominal pain or diarrhea. Tolerating oral diet. ID and vascular surgery is on board. 06/02/2024 Patient is awake alert and oriented x 3. No complaints of chest pain or shortness of breath. Sacral ulcer pain and bilateral lower extremity pain controlled with medications. Patient has been afebrile. Postoperative #1 status post sharp excisional debridement of bilateral lower extremity wounds. 06/03/2024 Patient is awake alert and oriented x 3. No complaints of chest pain or shortness of breath. Bilateral lower extremity pain is controlled. Patient has been afebrile. No nausea vomiting abdominal pain or diarrhea. No other acute overnight issues. Patient is being continued on antibiotics cefepime, metronidazole and Zyvox. ID and vascular surgery is on board. 06/04/2024 Patient is lying in the bed. Awake and oriented x 3. On room air. No complaints of chest pain or shortness of breath. Bilateral lower abdominal pain is controlled. Patient is being continued on Dilaudid. Laboratory data showed WBC 9.1 hemoglobin 10.8 and platelets 334 BUN 23.4 and creatinine 0.3 and blood sugar is 277. Current medications reviewed. 06/05/2024 Patient is resting in the bed. Awake alert and oriented x 3. No complaints of chest pain or shortness of breath pain is controlled. Continue on daily dressing changes. Blood sugars fairly controlled. Current medications reviewed. Vascular surgery and ID is on board. 06/06/2024 Patient is resting in the bed. Awake alert and oriented x 3. Currently involved in. Patient has been cannula antibiotics as per ID recommendations. Wound care and patient is cleared from surgical standpoint. Follow-up CBC and BMP tomorrow and anticipate discharge. 06/07/24 Patient still complains from lower back pain No chest pain or dyspnea Blood pressure is stable. Labs reviewed, WBC 9.6, hemoglobin 10.6. I discussed with him about his Dilaudid and risk of including but not limited to respiratory depression and and he verbalized understanding and acceptance Continue with topical treatment with lidocaine. Lower Dilaudid dose of 0.5 down to 0.25 mg Objective - Vital Signs Vital signs: Vital Signs Temp 98.2 F 06/07/24 13:56 Pulse 89 06/07/24 13:56 Resp 17 06/07/24 13:56 BP 115/76 06/07/24 13:56 Pulse Ox 100 06/07/24 13:56 FiO2 Intake & Output 06/06/24 06/07/24 06/07/24 18:59 06:59 18:59 Intake Total 120 Output Total 500 400 Balance -500 -400 120 Intake: Oral 120 Output: Urine 500 400 Other: Voiding Method Indwelling Catheter Indwelling Catheter # Bowel Movements 1 - Exam GENERAL: The patient is alert and oriented x3, not in any acute distress. Well developed, well nourished. HEENT: Pupils are round and equally reacting to light. EOMI. No scleral icterus. No conjunctival pallor. Normocephalic, atraumatic. No pharyngeal erythema. No thyromegaly. CARDIOVASCULAR: S1 and S2 present. No murmurs, rubs, or gallops. PULMONARY: Chest is clear to auscultation, no wheezing , no crackles. ABDOMEN: Soft, nontender, nondistended, normoactive bowel sounds. No palpable organomegaly. MUSCULOSKELETAL: No joint swelling or deformity. EXTREMITIES: No cyanosis, clubbing, or pedal edema. NEUROLOGICAL: Gross neurological examination did not reveal any focal deficits. -SKIN: No rashes. Stage IV sacral wound bilateral extensive lower extremity wounds currently dressed. Bilateral lower extremity surgical dressings are dry and intact of bilateral lower chavez - Labs CBC & Chem 7: 06/07/24 07:26 06/07/24 07:26 Labs: Abnormal Lab Results - Last 24 Hours (Table) 06/06/24 06/06/24 06/06/24 Range/Units 16:40 17:14 18:32 RBC (4.10-5.20) X 10*6/uL Hgb (12.0-15.0) g/dL Hct (37.2-46.3) % MCHC (32.0-37.0) g/dL RDW (11.5-14.5) % Immature Gran # (0.00-0.04) X 10*3/uL Basophils # (0.00-0.10) X 10*3/uL Potassium (3.5-5.5) mmol/L Creatinine (0.6-1.5) mg/dL BUN/Creatinine Ratio (12.00-20.00) Ratio Glucose (70-110) mg/dL POC Glucose (mg/dL) 56 L 62 L 152 H (70-110) mg/dL Calcium (8.7-10.3) mg/dL 06/07/24 06/07/24 06/07/24 Range/Units 05:55 07:26 07:26 RBC 3.89 L (4.10-5.20) X 10*6/uL Hgb 10.9 L (12.0-15.0) g/dL Hct 35.2 L (37.2-46.3) % MCHC 31.0 L (32.0-37.0) g/dL RDW 18.5 H (11.5-14.5) % Immature Gran # 0.05 H (0.00-0.04) X 10*3/uL Basophils # 0.14 H (0.00-0.10) X 10*3/uL Potassium 3.1 L (3.5-5.5) mmol/L Creatinine 0.3 L (0.6-1.5) mg/dL BUN/Creatinine Ratio 71.67 H (12.00-20.00) Ratio Glucose 128 H (70-110) mg/dL POC Glucose (mg/dL) 170 H (70-110) mg/dL Calcium 8.4 L (8.7-10.3) mg/dL 06/07/24 Range/Units 11:21 RBC (4.10-5.20) X 10*6/uL Hgb (12.0-15.0) g/dL Hct (37.2-46.3) % MCHC (32.0-37.0) g/dL RDW (11.5-14.5) % Immature Gran # (0.00-0.04) X 10*3/uL Basophils # (0.00-0.10) X 10*3/uL Potassium (3.5-5.5) mmol/L Creatinine (0.6-1.5) mg/dL BUN/Creatinine Ratio (12.00-20.00) Ratio Glucose (70-110) mg/dL POC Glucose (mg/dL) 175 H (70-110) mg/dL Calcium (8.7-10.3) mg/dL Assessment and Plan Assessment: -Infected stage IV sacral pressure injury status post surgical debridement and continues on sant local wound care. Wound cultures from 05/24/2024 showed Corynebacterium and MRSA. Also growing Enterococcus/VRE. Patient is status post sharp excisional debridement of bilateral lower extremity wounds again on 06/01/2024. -Leukocytosis, possibly secondary to above, trending down -Bilateral lower extremity wound on the calfs down to the tendon may require amputation however vascular would like patient to be opitimized medically and plan for amputations outpatient if patient and family decide to go this route. 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 Improved, patient having bowel movements now -Chronic medical debility and non-weight bearing. -Hx of COPD with no acute exacerbation -Diabetes Mellitus type 2 with hyperglycemia and hypoglycemia -Hx of hypertension -Hyperlipidemia -Hx of PE in the past not currently on oral anticoagulation -Moderate protein calorie malnutrition -Chronic nicotine use Plan: Patient is status post excisional debridement of bilateral lower extremity again on 06/01/2024. Continue IV antibiotics per ID recommendations. Wound cultures growing MRSA and Corynebacterium. Patient will be continued on cefepime, Flagyl and Zyvox. Lexapro will be discon tinued.. Continue local wound care Vascular has evaluated the patient and recommends follow up outpatient and will need medical clearance for leg amputations, family is concerned on getting her back and forth to appointments. Patient is status post surgical debridement with deep tissue cultures on 05/24/2024. Follow-up final blood culture report. Continue on bowel regimen as patient is now having bowel movements. Continue accuchecks ACHS and sliding scale and will adjust insulins as patient h as been having elevated blood sugars during the day and extremely low blood sugars overnight. Continue oral lasix Continue nicotine patch Plan is for patient to return to [facility] on discharge. Lower Dilaudid to 0.25 mg GI prophylaxis: Ppi DVT prophylaxis heparin subcutaneously Prognosis guarded
[2024-06-07 16:38] LABS: Glucose,Whole Blood 83 mg/dL (70-110)
[2024-06-07] MEDS: HYDROmorphone 0.5 MG/0.5 ML SYRINGE IVP PRN (19:48)
[2024-06-07 20:58] LABS: Glucose,Whole Blood 197 mg/dL (70-110)
[2024-06-08 06:10] LABS: Glucose,Whole Blood 306 mg/dL (70-110)
[2024-06-08 07:29] VITALS: RESP 18
[2024-06-08 11:34] LABS: Glucose,Whole Blood 258 mg/dL (70-110)
--- NOTE | 2024-06-08 13:50 | P.DS ---
Providers Date of admission: 05/11/24 20:45 Attending physician: Armando Nelson MD Consults: 05/20/24 20:16 Consult Physician Stat Consulting Provider: Coni Pathak Consult Reason/Comments: sacral wound Do you want consulting provider notified?: Already Contacted 05/24/24 16:51 Consult Physician Routine Consulting Provider: Citlalli Horn Consult Reason/Comments: wounds/ already seeing, add to list Do you want consulting provider notified?: Already Contacted Primary care physician: Stated None Hospital Course: Diagnoses: -Infected stage IV sacral pressure injury status post surgical debridement and continues on santyl local wound care. Wound cultures from 05/24/2024 showed Corynebacterium and MRSA. Also growing Enterococcus/VRE. Patient is status post sharp excisional debridement of bilateral lower extremity wounds again on 06/01/2024. -Leukocytosis, possibly secondary to above, trending down -Bilateral lower extremity wound on the calfs down to the tendon may require amputation however vascular would like patient to be opitimized medically and plan for amputations outpatient if patient and family decide to go this route. 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 Improved, patient having bowel movements now -Chronic medical debility and non-weight bearing. -Hx of COPD with no acute exacerbation -Diabetes Mellitus type 2 with hyperglycemia and hypoglycemia -Hx of hypertension -Hyperlipidemia -Hx of PE in the past not currently on oral anticoagulation -Moderate protein calorie malnutrition -Chronic nicotine use Hospital course: This is a 64-year-old female who has been at [facility] and followed by Dr. Mcpherson while there. Comes in for an infected sacral ulcer with culture showing MSSA, Klebsiella and Pseudomonas. She has gram positive blood cultures. Also with extensive lower extremity wounds. Patient is continued on a combination of IV cefepime IV vancomycin and oral Flagyl with ID and surgery following closely. Patient has undergone vascular debridement of the sacral wound. -Patient also evaluated by vascular surgery team, who performed sharp excisional debridement of the bilateral lower extremity wounds on 05/24/2024 and 06/01/2024. No further workup or surgical intervention by vascular surgery team, they cleared the patient for discharge with recommendation for outpatient follow-up -Wound culture of both lower back and lower extremity showing multiple bacteria including MSSA, Pseudomonas, Klebsiella. Also there was MRSA and VRE. -Patient evaluated by infectious disease team and treated with IV cefepime, Zyvox and Flagyl. She has PICC line in the right upper extremity and to continue with therapy with a total of 6 weeks. Patient other than that she is pleasant lying in bed looks comfortable with no distress, pain controlled. No chest pain or dyspnea. No other new GI/ symptoms. No headache dizziness or weakness. The patient was cleared for discharge by infectious disease team and vascular surgery team Problems and management plan were discussed with the patient and he verbalized understanding and acceptance Patient was found stable and can be discharged home in guarded prognosis however he needs follow-up as an outpatient. Patient was instructed to follow up with PCP within one week and patient agrees Physical exam Gen: patient is a AAOx3, no distress CVS: S1-S2, RRR, no murmur Lungs: B/L CTA, no wheezing Abdomen: soft, no distention, no tenderness, positive bowel sounds -Extremity: no leg edema or induration. Right arm PICC line in place -SKIN: No rashes. Stage IV sacral wound bilateral extensive lower extremity wounds currently dressed. Bilateral lower extremity surgical dressings are dry and intact of bilateral lower chavez Time spent more than 35 minutes Plan - Discharge Summary New Discharge Prescriptions: New ARIPiprazole [Abilify] 1 mg PO DAILY tab Continue Melatonin 3 mg PO HS PRN PRN Reason: sleep Nicotine 14Mg/24Hr Patch [Habitrol] 1 patch TRANSDERM DAILY Budesonide [Pulmicort] 1 mg INHALATION RT-BID ml Lactulose [Cephulac] 20 gm PO TID 30 Days #90 ml amLODIPine [Norvasc] 5 mg PO DAILY tab HYDROcodone/APAP 5-325MG [Codorus 5-325] 1 tab PO Q6HR PRN PRN Reason: Pain INSULIN LISPRO (HumaLOG) [humaLOG] See Protocol SQ ACHS Insulin Detemir (Levemir) [Levemir] 10 unit SQ DAILY@0700 each Enoxaparin [Lovenox] 40 mg SQ BID each Magnesium Hydroxide [Milk of Magnesia] 7,200 mg PO DAILY PRN ml PRN Reason: Constipation INSULIN ASPART (NovoLOG) [NovoLOG (formulary)] 0 unit SQ ACHS each Budesonide-Formot 160-4.5 Mcg [Symbicort 160-4.5 Mcg Inhaler] 2 puff INHALATION RT-BID each Montelukast [Singulair] 10 mg PO HS Lactobacillus Rhamnosus GG [Culturelle] 1 cap PO BID Pantoprazole [Protonix] 40 mg PO AC-BID tab Acetaminophen Tab [Tylenol] 650 mg PO Q4HR PRN tab PRN Reason: Mild Pain Or Fever > 100.5 Collagenase [Santyl Ointment] 1 applic TOPICAL DAILY Collagenase [Santyl Ointment] 1 applic TOPICAL DIRECTED PRN PRN Reason: stage 4 coccyx wound Insulin Glargine [Lantus Vial] 15 unit SQ HS INSULIN LISPRO (HumaLOG) [humaLOG] 5 units SQ AC-TID Ipratropium-Albuterol Nebulize [Duoneb 0.5 mg-3 mg/3 ml Soln] 3 ml INHALATION RT-QID each Furosemide [Lasix] 40 mg PO DAILY tab Zinc Oxide 20% Oint 1 applic TOPICAL TID PRN each PRN Reason: Wound Healing ALPRAZolam [Xanax XR] 0.5 mg PO DAILY 3 Days #3 tab Changed predniSONE [Deltasone] 10 mg PO DAILY 3 Days #3 tab Discontinued predniSONE [Deltasone] 40 mg PO DAILY tab Nitrofurantoin Monohyd/M-Cryst [Macrobid] 100 mg PO Q12HR #14 cap Escitalopram [Lexapro] 20 mg PO DAILY tab Voriconazole [Vfend] 200 mg PO Q12HR #10 tablet Discharge Medication List Lactobacillus Rhamnosus GG [Culturelle] 1 cap PO BID 01/29/24 [History] Melatonin 3 mg PO HS PRN 01/29/24 [History] Montelukast [Singulair] 10 mg PO HS 01/29/24 [History] Nicotine 14Mg/24Hr Patch [Habitrol] 1 patch TRANSDERM DAILY 01/29/24 [History] Budesonide [Pulmicort] 1 mg INHALATION RT-BID ml 02/05/24 [Rx] Pantoprazole [Protonix] 40 mg PO AC-BID tab 02/05/24 [Rx] Acetaminophen Tab [Tylenol] 650 mg PO Q4HR PRN tab 06/01/24 [Rx] Lactulose [Cephulac] 20 gm PO TID 30 Days #90 ml 02/26/24 [Rx] amLODIPine [Norvasc] 5 mg PO DAILY tab 03/24/24 [Rx] Collagenase [Santyl Ointment] 1 applic TOPICAL DIRECTED PRN 03/29/24 [History] Collagenase [Santyl Ointment] 1 applic TOPICAL DAILY 03/29/24 [History] HYDROcodone/APAP 5-325MG [Codorus 5-325] 1 tab PO Q6HR PRN 03/29/24 [History] INSULIN LISPRO (HumaLOG) [humaLOG] 5 units SQ AC-TID 03/29/24 [History] INSULIN LISPRO (HumaLOG) [humaLOG] See Protocol SQ ACHS 03/29/24 [History] Insulin Glargine [Lantus Vial] 15 unit SQ HS 03/29/24 [History] ALPRAZolam [Xanax XR] 0.5 mg PO DAILY 3 Days #3 tab 04/13/24 [Rx] Budesonide-Formot 160-4.5 Mcg [Symbicort 160-4.5 Mcg Inhaler] 2 puff INHALATION RT-BID each 04/13/24 [Rx] Enoxaparin [Lovenox] 40 mg SQ BID each 04/13/24 [Rx] Furosemide [Lasix] 40 mg PO DAILY tab 04/13/24 [Rx] INSULIN ASPART (NovoLOG) [NovoLOG (formulary)] 0 unit SQ ACHS each 04/13/24 [Rx] Insulin Detemir (Levemir) [Levemir] 10 unit SQ DAILY@0700 each 04/13/24 [Rx] Ipratropium-Albuterol Nebulize [Duoneb 0.5 mg-3 mg/3 ml Soln] 3 ml INHALATION RT-QID each 04/13/24 [Rx] Magnesium Hydroxide [Milk of Magnesia] 7,200 mg PO DAILY PRN ml 04/13/24 [Rx] Zinc Oxide 20% Oint 1 applic TOPICAL TID PRN each 04/13/24 [Rx] ARIPiprazole [Abilify] 1 mg PO DAILY tab 05/31/24 [Rx] predniSONE [Deltasone] 10 mg PO DAILY 3 Days #3 tab 05/31/24 [Rx] Follow up Appointment(s)/Referral(s): Citlalli Horn DO [STAFF PHYSICIAN] - 06/14/24 10:30 am Diann Segovia [NON-STAFF] - As Needed Activity/Diet/Wound Care/Special Instructions: BLE dressing change: change down to the vaseline gauze, leave vaseline gauze, apply 4x4 and kerlix daily Discharge Disposition: TRANSFER TO SNF/ECF
--- NOTE | 2024-06-08 14:11 | P.PN ---
Subjective Progress Note Date: 06/08/24 Principal diagnosis: Reason for follow-up is sacral pressure ulcer bilateral lower extremity wound and bacteremia Patient is a 64-year-old female with multiple comorbidities initial presentation to the hospital with worsening sacral wound also have a positive blood culture and extensive wound to bilateral lower extremity patient is status post bedside debridement of the sacral wound.Patient is status post sharp excisional debridement of bilateral lower extremity wound and deep cultures completed on 05/24/2024, patient is status post repeat sharp excisional debride ment of bilateral lower extremity wound completed on 06/01/2024. On today's evaluation that is 06/08/2024,the patient denies any fever or any chills, patient is breathing comfortably on room air, the patient denies chest pain shortness of breath and no significant cough, patient denies abdominal pain , no nausea vomiting or diarrhea. Denies any worsening pain feeling better no new symptoms. No new lab has been obtained and the patient white count normal as of yesterday Objective - Vital Signs Vital signs: Vital Signs Temp 97.5 F L 06/08/24 07:29 Pulse 102 H 06/08/24 07:29 Resp 18 06/08/24 07:29 BP 147/81 06/08/24 07:29 Pulse Ox 99 06/08/24 07:29 FiO2 Intake & Output 06/07/24 06/08/24 06/08/24 18:59 06:59 18:59 Intake Total 860 Output Total 400 450 Balance 460 -450 Weight 45.813 kg Intake: Oral 860 Output: Urine 400 450 Other: Voiding Method Indwelling Catheter Indwelling Catheter - Exam GENERAL DESCRIPTION: Middle-age female lying in bed in no distress RESPIRATORY SYSTEM: Unlabored breathing , decreased breath sounds at bases HEART: S1 S2 regular rate and rhythm , ABDOMEN: Soft , no tenderness EXTREMITIES: Bilateral lower extremity wounds are currently dressed no drainage on the dressing - Labs CBC & Chem 7: 06/07/24 07:26 06/07/24 07:26 Labs: Abnormal Lab Results - Last 24 Hours (Table) 06/07/24 06/07/24 06/07/24 Range/Units 07:26 07:26 11:21 RBC 3.89 L (4.10-5.20) X 10*6/uL Hgb 10.9 L (12.0-15.0) g/dL Hct 35.2 L (37.2-46.3) % MCHC 31.0 L (32.0-37.0) g/dL RDW 18.5 H (11.5-14.5) % Immature Gran # 0.05 H (0.00-0.04) X 10*3/uL Basophils # 0.14 H (0.00-0.10) X 10*3/uL Potassium 3.1 L (3.5-5.5) mmol/L Creatinine 0.3 L (0.6-1.5) mg/dL BUN/Creatinine Ratio 71.67 H (12.00-20.00) Ratio Glucose 128 H (70-110) mg/dL POC Glucose (mg/dL) 175 H (70-110) mg/dL Calcium 8.4 L (8.7-10.3) mg/dL 06/07/24 06/08/24 Range/Units 20:57 06:08 RBC (4.10-5.20) X 10*6/uL Hgb (12.0-15.0) g/dL Hct (37.2-46.3) % MCHC (32.0-37.0) g/dL RDW (11.5-14.5) % Immature Gran # (0.00-0.04) X 10*3/uL Basophils # (0.00-0.10) X 10*3/uL Potassium (3.5-5.5) mmol/L Creatinine (0.6-1.5) mg/dL BUN/Creatinine Ratio (12.00-20.00) Ratio Glucose (70-110) mg/dL POC Glucose (mg/dL) 197 H 306 H (70-110) mg/dL Calcium (8.7-10.3) mg/dL Assessment and Plan (1) Stage IV pressure ulcer of sacral region Current Visit: Yes Status: Acute Code(s): L89.154 - PRESSURE ULCER OF SACRAL REGION, STAGE 4 SNOMED Code(s): 79515522479520 (2) Open wound of both lower extremities Current Visit: Yes Status: Acute Code(s): S81.801A - UNSPECIFIED OPEN WOUND, RIGHT LOWER LEG, INITIAL ENCOUNTER; S81.802A - UNSPECIFIED OPEN WOUND, LEFT LOWER LEG, INITIAL ENCOUNTER SNOMED Code(s): 37818464 (3) Bacteremia Current Visit: Yes Status: Acute Code(s): R78.81 - BACTEREMIA SNOMED Code(s): 9835822 Plan: 1patient with infected sacral pressure ulcer stage IV with a local culture po sitive for MSSA Pseudomonas and Klebsiella patient is covered with cefepime and Flagyl 2-positive blood culture with gram-positive cocci still waiting for final ID covered with the vancomycin dosing while Watching her creatinine closely 3-bilateral lower extremity pressure ulcer patient is status post surgical debridement and cultures currently growing MRSA and and also VRE that is resistant to daptomycin 4- patient to continue with cefepime and Flagyl on the basis of previous cultures from her sacral wound, patient to continue with cefepime and Flagyl x 3 more weeks on discharge 5-patient also grew VRE from lower extremity wounds patient is status post repeat debridement of the leg wounds on 06/01/2024, 6patient is afebrile and the patient white count has normalized, patient to continue with oral Zyvox 600 mg twice a day to finish a 4 week course of therapy, the patient discharge instruction has been updated 7oral thrush patient to continue with nystatin swish and swallow x 7 days on discharge Dictation was produced using [employer] dictation software. please excuse any grammatical, word or spelling errors. Time with Patient: Less than 30
[2024-06-08 14:14] VITALS: BP 153/85; TEMP 97.8
--- NOTE | 2024-06-08 15:58 | P.PN ---
Subjective Progress Note Date: 06/08/24 Principal diagnosis: Bilateral lower extremity wounds Patient is seen and examined today as a follow-up. No acute changes through the night. Wound cultures are finalized. Infectious diseases following. She is status post excisional debridement with skin substitute placed. She has been afebrile. Leukocytosis resolved. Denies any pain. Plan is for subacute rehab at discharge Objective - Vital Signs Vital signs: Vital Signs Temp 97.5 F L 06/08/24 07:29 Pulse 80 06/08/24 09:47 Resp 18 06/08/24 07:29 BP 147/81 06/08/24 07:29 Pulse Ox 99 06/08/24 07:29 FiO2 Intake & Output 06/07/24 06/08/24 06/08/24 18:59 06:59 18:59 Intake Total 860 Output Total 400 450 Balance 460 -450 Weight 45.813 kg Intake: Oral 860 Output: Urine 400 450 Other: Voiding Method Indwelling Catheter Indwelling Catheter - Exam General appearance: The patient is alert, oriented, appears in no acute distress. HET: Head is normocephalic and atraumatic. Pupils are equal and reactive. Neck: Supple. Abdomen: Soft, nondistended. Extremities: Bilateral lower extremities with dressings clean dry and intact. Neurological: Alert and oriented. - Labs CBC & Chem 7: 06/07/24 07:26 06/07/24 07:26 Labs: Abnormal Lab Results - Last 24 Hours (Table) 06/07/24 06/07/24 06/07/24 Range/Units 07:26 07:26 11:21 RBC 3.89 L (4.10-5.20) X 10*6/uL Hgb 10.9 L (12.0-15.0) g/dL Hct 35.2 L (37.2-46.3) % MCHC 31.0 L (32.0-37.0) g/dL RDW 18.5 H (11.5-14.5) % Immature Gran # 0.05 H (0.00-0.04) X 10*3/uL Basophils # 0.14 H (0.00-0.10) X 10*3/uL Potassium 3.1 L (3.5-5.5) mmol/L Creatinine 0.3 L (0.6-1.5) mg/dL BUN/Creatinine Ratio 71.67 H (12.00-20.00) Ratio Glucose 128 H (70-110) mg/dL POC Glucose (mg/dL) 175 H (70-110) mg/dL Calcium 8.4 L (8.7-10.3) mg/dL 06/07/24 06/08/24 Range/Units 20:57 06:08 RBC (4.10-5.20) X 10*6/uL Hgb (12.0-15.0) g/dL Hct (37.2-46.3) % MCHC (32.0-37.0) g/dL RDW (11.5-14.5) % Immature Gran # (0.00-0.04) X 10*3/uL Basophils # (0.00-0.10) X 10*3/uL Potassium (3.5-5.5) mmol/L Creatinine (0.6-1.5) mg/dL BUN/Creatinine Ratio (12.00-20.00) Ratio Glucose (70-110) mg/dL POC Glucose (mg/dL) 197 H 306 H (70-110) mg/dL Calcium (8.7-10.3) mg/dL Assessment and Plan Assessment: 1. Bilateral lower extremity chronic wounds status post excisional debridement and skin substitute application 2. Malnutrition 3. Lower extremity weakness, nonambulatory 4. Sacral decubitus ulcer Plan: 1. Daily dressing change to b/l lower extremities as directed 2. Antibiotics per recommendations from ID 3. Patient is cleared from vascular surgery for discharge. Patient to follow- up with Dr. Horn next week Wednesday Thank you for this consultation. The impression and plan of care has been dictated as directed. Dr. Horn I performed a history and examination of this patient, discussed the same with the dictator. I agree with the dictator's note ,documented as a scribe. Any additional findings or plans will be noted.
[2024-06-08 16:15] LABS: Potassium 3.9 mmol/L (3.5-5.1)
[2024-06-08 16:42] LABS: Glucose,Whole Blood 94 mg/dL (70-110)
[2024-06-08 16:59] VITALS: PULSE 76
--- NOTE | 2024-06-22 14:42 | PN ---
PROGRESS NOTE REASON FOR FOLLOWUP: 1. Infected sacral pressure ulcer. 2. Positive blood culture. INTERVAL HISTORY: The patient is afebrile. The patient is breathing comfortably on room air. Denies any chest pain, shortness of breath. Occasional cough. No abdominal pain or any worsening pain to the sacral wound area. PHYSICAL EXAMINATION: VITAL SIGNS: Blood pressure 108/58, pulse of 89, temperature 97. GENERAL DESCRIPTION: This is a middle-aged female, lying in bed, in no distress. RESPIRATORY SYSTEM: Unlabored breathing, decreased intensity of breath sounds. No wheeze. HEART: S1, S2. Regular rate and rhythm. ABDOMEN: Soft. No tenderness. EXTREMITIES: No edema of the feet. LABORATORY DATA: White count 15.6, creatinine 0.29. Blood culture positive with gram-positive cocci. DIAGNOSTIC IMPRESSION AND PLAN: The patient with infected sacral pressure ulcer, now with evidence of gram-positive bacteremia, source likely MRSA. Outpatient culture positive for MRSA. Blood culture will be repeated to document clearance of bacteremia. The patient to continue with vancomycin. Discontinue Zosyn. Will benefit from surgical debridement of the wound. Continue supportive care. MMODL / IJN: [id number] /
--- NOTE | 2024-06-22 14:42 | CONS ---
CONSULTATION LOCATION: ER 19. REASON FOR CONSULTATION: Infected sacral pressure ulcer. HISTORY OF PRESENT ILLNESS: The patient is a 64-year-old female with multiple comorbidities including COPD, history of pneumonia, respiratory failure requiring intubation and did have a sacral pressure ulcer, currently being taken care at the local longterm. Apparently, the patient was noticed to have a fever and also worsening wound to the sacral area, so the patient has been sent to [facility] for further evaluation. The patient mentioned no further fever, nausea. Denies any headache or URI symptoms. No chest pain, shortness of breath or cough. Currently, on room air. No nausea, vomiting. No abdominal pain. No diarrhea. No urinary symptoms. She did have a nonhealing wound for the sacral area that has been there for a couple of months now. The patient did have some dull aching pain in [id number] intense without radiation. Current local wound care was a wound VAC and did have some foul smelling drainage. The patient was started on vancomycin and Zosyn. Infectious Disease was consulted for further management of antibiotic therapy. REVIEW OF SYSTEMS: Positive points have been mentioned in HPI. Rest of the systems are negative. PAST MEDICAL HISTORY: Reviewed. PAST SURGICAL HISTORY: Reviewed. SOCIAL HISTORY: Reviewed. FAMILY HISTORY: Reviewed. ALLERGIES: No known drug allergies, CURRENT MEDICATIONS: Currently, the patient is on: 1. Dilaudid. 2. Cannon. 3. Heparin. 4. NovoLog. 5. Lactulose. 6. Zosyn. 7. Vancomycin, pharmacy to dose. 8. Tylenol. 9. Melatonin. 10.Milk of Magnesia. PHYSICAL EXAMINATION: VITAL SIGNS: Blood pressure 114/70 with a pulse of 74, temperature 98. She is 95% on room air. GENERAL: The patient is a middle-aged female, lying in bed, in no distress. No tachypnea or accessory muscle of respiration use. HEENT: Shows pallor. No scleral icterus. Oral mucosal membrane is dry. NECK: Trachea is central. No thyromegaly. LUNGS: Unlabored breathing. Clear to auscultation anteriorly. No wheeze or crackle. HEART: S1, S2. Regular rate and rhythm. ABDOMEN: Soft. No tenderness. EXTREMITIES: No edema in the feet. The leg wounds are currently dressed. No drainage on the dressing. The patient did have a stage IV sacral wound ulcer with a bone palpable, foul-smelling drainage, surrounding redness. Deep wound culture obtained. NEUROLOGIC: The patient is awake, alert, oriented x3. Mood and affect normal. LABORATORY DATA: Hemoglobin is 9.7, white count 15.95. BUN of 29, creatinine 0.29. Electrolytes are normal. Liver enzymes are normal. DIAGNOSTIC IMPRESSION AND PLAN: 1. The patient with stage IV sacral pressure ulcer infected with significant amount of slough tissue, surrounding redness and foul-smelling drainage concerning for infected wound and likely sacral ulcer. Apparently the outpatient culture are positive for MRSA. We will need to get those culture report for . We have obtained local cultures both aerobic and anaerobic to guide further antibiotic therapy. 2. We will continue the patient on vancomycin and Zosyn. However, we will monitor her kidney function closely while on the same antibiotic combination. 3. Local wound care with Medihoney followed by moist dressing and reapplication of the wound VAC. When amount of slough tissue decreases, will benefit from surgical debridement and deep culture. 4. We will follow on clinical condition to further adjust medication if needed. Thank you for this consultation. We will follow this patient along with you. MMODL / IJN: [id number] /
--- NOTE | 2024-06-22 14:43 | PN ---
PROGRESS NOTE DATE OF SERVICE: 05/14/2024 LOCATION: [facility]. REASON FOR FOLLOWUP: Infected sacral pressure ulcer and bacteremia. INTERVAL HISTORY: The patient is afebrile. The patient is breathing comfortably on room air. Denies any chest pain, shortness of breath, or cough. No nausea, vomiting, abdominal pain, or any worsening pain to the sacral wound area. PHYSICAL EXAMINATION: VITAL SIGNS: Blood pressure 134/78, pulse 84, temperature 97.6, sating 95% on room air. GENERAL DESCRIPTION: He is a middle-aged female, lying in bed in no distress. RESPIRATORY SYSTEM: Unlabored breathing. Clear to auscultation anteriorly. HEART: S1, S2. Regular rate and rhythm. ABDOMEN: Soft, no tenderness. LABS: White count 15.9. Creatinine 0.29. DIAGNOSTIC IMPRESSION AND PLAN: The patient with infected sacral pressure ulcer. Outpatient culture positive for MRSA. He also has positive blood culture with gram-positive. Currently waiting for ID and sensitivity. The patient is covered with vancomycin, to continue while waiting for the culture to finalize. Will benefit from surgical debridement. Continue supportive care. MMODL / IJN: [id number] /
--- NOTE | 2024-06-22 14:44 | PN ---
PROGRESS NOTE LOCATION: 484. REASON FOR FOLLOWUP: 1. Stage IV sacral pressure ulcer. 2. Bilateral lower extremity unstageable pressure ulcer. INTERVAL HISTORY: The patient is afebrile. She is breathing comfortably on room air. She denies any chest pain, shortness of breath, or cough. No abdominal pain or worsening pain to the sacral or bilateral lower extremity wound. She was slightly concerned about worsening of the wound and some necrotic changes. PHYSICAL EXAMINATION: VITAL SIGNS: Blood pressure 153/82, pulse of 78, temperature 97.5. GENERAL: A middle-aged female, lying in bed, in no distress. RESPIRATORY SYSTEM: Unlabored breathing. Clear to auscultation anteriorly. HEART: S1 and S2. Regular rhythm. ABDOMEN: Sacral wound did have slough tissue, surrounding redness has decreased. EXTREMITIES: The patient also has bilateral lower extremity stage III ulcer with significant amount of slough tissue. LABORATORY DATA: White count 16.48, creatinine is 1.28. Cultures currently pending. IMPRESSION/PLAN: 1. The patient with infected sacral pressure ulcer and also has bacteremia. 2. The patient also with bilateral lower extremity pressure ulcer unstageable. 3. The patient will benefit from General Surgery as well as Vascular Surgery evaluation for debridement of the sacral and bilateral lower extremity wound and deep culture. For now, continue with vancomycin. We will follow up on the culture. Family at the bedside. Questions were answered. MMODL / IJN: [id number] /
--- NOTE | 2024-06-22 14:55 | PN ---
PROGRESS NOTE LOCATION: 484. REASON FOR FOLLOWUP: Infected sacral pressure ulcer and bilateral lower extremity wound. INTERVAL HISTORY: Patient is afebrile. The patient is breathing comfortably. No chest pain, shortness of breath, or cough. No abdominal pain or worsening pain to the lower extremity wounds. PHYSICAL EXAMINATION: VITAL SIGNS: Blood pressure is 138/74 with a pulse of 80, temperature 98.2. She is 97% on room air. GENERAL: The patient is an elderly female, lying in bed, in no distress. RESPIRATORY: Unlabored breathing. Clear to auscultation anteriorly. HEART: S1, S2. Regular rate and rhythm. Wounds are currently dressed. No drainage on the dressing. LABORATORY DATA: Creatinine 0.23. White count 12.75. DIAGNOSTIC IMPRESSION AND PLAN: Patient with infected sacral pressure ulcer. She did have a positive blood culture. Currently waiting for the local cultures finalized. She is covered with vancomycin and cefepime and Flagyl for gram-negative anaerobes. Await debridement and deep cultures. Family at the bedside. Questions are answered. MMODL / IJN: [id number] /
--- NOTE | 2024-06-22 14:55 | PN ---
PROGRESS NOTE DATE OF SERVICE: 05/20/2024 REASON FOR FOLLOWUP: Infected sacral pressure ulcer, bilateral lower extremity infected ulcer and bacteremia. INTERVAL HISTORY: The patient is afebrile. The patient is breathing comfortably. No chest pain, shortness of breath, or cough. No nausea, vomiting, or worsening pain to the sacral and lower extremity wounds. PHYSICAL EXAMINATION: VITAL SIGNS: Blood pressure 126/83, pulse of 82, temperature 98.2. GENERAL: The patient is a middle-aged female, lying in bed, in no distress. RESPIRATORY SYSTEM: Unlabored breathing, clear to auscultation anteriorly. HEART: S1 and S2, regular rate and rhythm. ABDOMEN: Soft. No tenderness. SKIN: Wounds are currently dressed. LABORATORY DATA: Creatinine 0.1. White count 17.10. DIAGNOSTIC IMPRESSION AND PLAN: The patient had infected sacral pressure ulcer, status post debridement. Also, has bilateral lower extremity wounds, need to be debrided. Vascular Surgery is on the case. The patient is covered with cefepime, vancomycin, Flagyl. Continue to monitor closely. Questions and concerns were answered. MMODL / IJN: [id number] /
--- NOTE | 2024-06-22 14:55 | PN ---
PROGRESS NOTE DATE OF SERVICE: 05/19/2024 SUBJECTIVE: The patient remains stable. Her decubitus ulcer is stable. The patient continues to see local wound care. No surgical intervention is planned at this point. MMODL / IJN: [id number] /
--- NOTE | 2024-06-22 14:55 | PN ---
PROGRESS NOTE DATE OF SERVICE: 05/17/2024 LOCATION: 4. REASON FOR FOLLOWUP: 1. Stage IV sacral pressure ulcer. 2. Bilateral lower extremity pressure ulcer. INTERVAL HISTORY: The patient is afebrile. She is breathing comfortably on room air. No chest pain, shortness of breath, or cough. No nausea or vomiting. No abdominal pain or any worsening pain in the lower extremity wound. PHYSICAL EXAMINATION: VITAL SIGNS: Blood pressure 153/82, pulse of 59, temperature of 98.8, she is 99% on room air. GENERAL DESCRIPTION: This is a middle-aged female, lying in bed, in no distress. RESPIRATORY SYSTEM: Unlabored breathing. Clear to auscultation anteriorly. HEART: S1, S2. Regular rate and rhythm. ABDOMEN: Soft, no tenderness. EXTREMITIES: Wounds are currently dressed. LABORATORY DATA: Cultures are currently pending. DIAGNOSTIC IMPRESSION AND PLAN: The patient with infected sacral pressure ulcer. Unfortunately, the patient did have debridement of the wound by the surgeon at the bedside yesterday. No cultures were done. Also, has bilateral lower extremity pressure ulcer, will need surgical debridement. The patient is covered with vancomycin, cefepime, and Flagyl, to continue, while waiting for the culture to finalize and monitor clinical course closely. MMODL / IJN: [id number] /
--- NOTE | 2024-06-22 14:55 | PN ---
PROGRESS NOTE DATE OF SERVICE: 02/17/2024 REASON FOR FOLLOWUP: Infected sacral pressure ulcer, bacteremia, and bilateral lower extremity infected wounds. INTERVAL HISTORY: The patient is afebrile. She is breathing comfortably on room air. No chest pain, shortness of breath, or cough. No abdominal pain or any worsening pain to the lower extremities or the sacral wound area. PHYSICAL EXAMINATION: VITAL SIGNS: Blood pressure 137/81 with a pulse of 80, temperature 97.9. She is 98% on room air. GENERAL DESCRIPTION: A middle-aged female, lying in bed in no distress. RESPIRATORY SYSTEM: Unlabored breathing. Clear to auscultation anteriorly. HEART: S1, S2. Regular rate and rhythm. ABDOMEN: Soft. No tenderness. Leg wounds are currently dressed. No drainage on the dressing. DIAGNOSTIC IMPRESSION AND PLAN: 1. Patient with infected sacral pressure ulcer. Local culture has been positive for MSSA, Klebsiella, and Pseudomonas. The patient also has a positive blood culture with gram-positive. They have not identified it yet with repeat cultures currently pending. The patient is covered with cefepime, vancomycin, Flagyl. Will need a PICC line for outpatient antibiotic. 2. Patient with bilateral lower extremity wounds. Currently waiting for the vascular workup and need for debridement. MMODL / IJN: [id number] /
--- NOTE | 2024-06-22 14:55 | PN ---
PROGRESS NOTE DATE OF SERVICE: 05/18/2024 LOCATION: [facility]. REASON FOR FOLLOWUP: Infected sacral pressure ulcer and bilateral leg wounds. INTERVAL HISTORY: The patient is afebrile, has been breathing comfortably on room air. No chest pain, shortness of breath, or cough. No abdominal pain or any worsening pain to the sacral or lower extremity wounds. PHYSICAL EXAMINATION: VITAL SIGNS: Blood pressure 146/80 with a pulse of 75, temperature 98.9. GENERAL DESCRIPTION: This is a middle-aged female, lying in bed, in no distress. RESPIRATORY SYSTEM: Unlabored breathing. Clear to auscultation anteriorly. HEART: S1, S2. Regular rate. ABDOMEN: Soft, no tenderness. EXTREMITIES: Wounds are currently dressed. LABORATORY DATA: Creatinine 0.24, white count 13.98. Cultures are currently pending. DIAGNOSTIC IMPRESSION AND PLAN: Patient with stage IV sacral pressure ulcer. The initial report of positive blood culture is still waiting on the confirmation and also has bilateral lower extremity wound, currently being managed by Vascular Surgery. The patient is covered with the cefepime, vancomycin, Flagyl, to continue. Try to obtain culture. Family at the bedside. Questions were answered. MMODL / IJN: [id number] /
--- NOTE | 2024-06-22 14:55 | OP ---
OPERATIVE REPORT DATE OF SERVICE : PREOP DIAGNOSIS: Sacral decubitus ulcer. POSTOPERATIVE DIAGNOSIS: Sacral decubitus ulcer. PROCEDURE: Debridement of sacral decubitus ulcer. ANESTHESIA: None. COMPLICATIONS: None. PROCEDURE IN DETAIL: Patient was kept at the bedside for the procedure. The patient was placed in the left decubitus position. The patient had a large decubitus ulcer over the sacrum that was previously debrided. The patient had a small amount of residual necrotic muscle and skin. This was debrided. This was debrided sharply in an excisional manner using both scissors and scalpel. Total amount of debridement down to the level of the muscle layer was 20 sq cm. Minimal bleeding was seen. Wound was packed with sterile gauze and sterile dressing applied as well. MMODL / IJN: [id number] /
--- NOTE | 2024-06-26 18:59 | CDI ---
Documentation Clarification Form Date: 06/26/2024 06:24:58 PM From: Jessica Morin Phone: Admit Date: 05/11/2024 08:45:00 PM Patient Name: Sha Lucio Visit Number: [id number] Discharge Date: 06/08/2024 07:31:00 PM ATTENTION: The Clinical Documentation Specialists (CDI) and [facility] Coding Staff appreciate your assistance in clarifying documentation. Please respond to the clarification below the line at the bottom and electronically sign. The CDI & [facility] Coding staff will review the response and follow-up if needed. Please note: Queries are made part of the Legal Health Record. If you have any questions, please contact the author of this message via ITS. Doctor/Provider: Armando E Sheet Sepsis is documented Per ED and multiple Progress Notes early in the stay (Progress Note 05/14 & pgs 5&04/21 paper chart Consult pg /3 paper chart) which may lack sufficient clinical evidence/support in the medical record. Additional clarification is requested. 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 Continues on Santyl and local woundcare of the sacrum. Is there an additional diagnosis that is clinically appropriate for this patient? [ ] Sepsis, present on admission [ ] Sepsis, ruled out [ ] SIRS, without underlying infectious process [ ] Other, please specify [ x ] Unable to determine SIRS Criteria: 2 or more of the following may indicate SIRS Temperature < 96.8F (36C) or > 101.0F (38.3C) Heart Rate > 90 bpm Respiratory Rate > 20 breaths/min or PaCO2 < 32 mmHg White Blood Cell Count > 12,000 or < 4,000 cells/mm3 or > 10% bands (Template Last Reviewed: September 2022) [facility]
--- NOTE | 2024-06-26 19:20 | CDI ---
Documentation Clarification Form Date: 06/26/2024 06:59:51 PM From: Jessica Morin Phone: Admit Date: 05/11/2024 08:45:00 PM Patient Name: Sha Lucio Visit Number: [id number] Discharge Date: 06/08/2024 07:31:00 PM ATTENTION: The Clinical Documentation Specialists (CDI) and [facility] Coding Staff appreciate your assistance in clarifying documentation. Please respond to the clarification below the line at the bottom and electronically sign. The CDI & [facility] Coding staff will review the response and follow-up if needed. Please note: Queries are made part of the Legal Health Record. If you have any questions, please contact the author of this message via ITS. Doctor/Provider: Citlalli Horn Conflicting documentation has been found in the medical record. As attending physician, please provide clarification. Bilateral lower extremitypressure ulcer unstageable Consult (pg. 3/3 paper chart) and multiple Progress Notes Severeperipheral arterial disease; Consult (pg. 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 -Fecal impaction Clinical Indicators: Bilateral SFA occlusion,severeCFA, iliac stenosis andsevereintrapopliteal stenosis left greater than right Treatment: 05/24 Sharpexcisional debridementbilateral lower extremitywound Left leg 14 x 5 x 0.4 cm to bone Right posterior proximal 14.3 x 3 x 0.3 cm to bone Right posterior distal 2.5 x 2 x 0.3 cm to subcutaneous tissue Right anterior chavez 3 x 0.7 x 0.2 cm to subcutaneous tissue Right anterior foot 1.5 x 1.2 x 0.2 cm to subcutaneous tissue 06/01 Sharp excisional debridement bilateral lower extremity wound Left leg 14 x 4 x 0.4 cm to bone Right posterior proximal 13 x 3 x 0.3 cm to bone Placement of skin substitute to bilateral lower extremities, PuraPly 1000 mg, 6 x 9 cm Please clarify which diagnosis is most appropriate: [ X ] Bilateral lower extremitypressure ulcers, legs and heels [ ] DMII with bilateral lower extremityperipheral arterial disease non- pressure ulcers, legs and heels [ x] Other (please specify) ___DMII with bilateral lower extremityperipheral arterial disease [ ] Unable to determine (Template Last Revised: November 2020) MTDD
--- NOTE | 2024-06-29 19:32 | CDI ---
Documentation Clarification Form Date: 06/29/2024 07:14:22 PM From: Jessica Morin Phone: Admit Date: 05/11/2024 08:45:00 PM Patient Name: Sha Lucio Visit Number: [id number] Discharge Date: 06/08/2024 07:31:00 PM ATTENTION: The Clinical Documentation Specialists (CDI) and [facility] Coding Staff appreciate your assistance in clarifying documentation. Please respond to the clarification below the line at the bottom and electronically sign. The CDI & [facility] Coding staff will review the response and follow-up if needed. Please note: Queries are made part of the Legal Health Record. If you have any questions, please contact the author of this message via ITS. Doctor/Provider: Citlalli Horn There is documentation of BLEpressure ulcers legs and heels per previous query. Additional specificity regarding the severity of each pressure ulcer is requested. 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, iliacstenosisand severe intrapoplitealstenosisL>R, fecal impaction Clinical Indicators: Bilateral SFAocclusion,severeCFA, iliacstenosis andsevereintrapoplitealstenosisL >R Treatment: 05/24 Sharpexcisional debridementbilateral lower extremitywound Left leg 14 x 5 x 0.4 cm to bone Right posterior proximal 14.3 x 3 x 0.3 cm to bone Right posterior distal 2.5 x 2 x 0.3 cm to subcutaneous tissue Right anterior chavez 3 x 0.7 x 0.2 cm to subcutaneous tissue Right anterior foot 1.5 x 1.2 x 0.2 cm to subcutaneous tissue 06/01 Excisional debridementbilateral lower extremitywound Left leg 14 x 4 x 0.4 cm to bone Right posterior proximal 13 x 3 x 0.3 cm to bone Placementof skin substitute to bilateral lower extremities, PuraPly 1000 mg, 6x 9 cm Please clarify the severity of the pressure ulcers: Left Leg: [ ] Limited to breakdown of skin [ ] With fat layer exposed [ x ] With necrosis of muscle [ ] With necrosis of bone [ ] Other, Please specify [ ] Unable to determine Right Leg: [ ] Limited to breakdown of skin [ ] With fat layer exposed [ x] With necrosis of muscle [ ] With necrosis of bone [ ] Other, Please specify [ ] Unable to determine Left Heel: [ ] Limited to breakdown of skin [ ] With fat layer exposed [ ] Other, Please specify x Right Heel: [ ] Limited to breakdown of skin [ ] With fat layer exposed [ ] Other, Please specify [ x] Unable to determine (Template Last Revised: November 2020) MTDD
--- NOTE | 2024-06-29 19:39 | CDI ---
Documentation Clarification Form Date: 06/29/2024 07:14:22 PM From: Jessica Morin Phone: Admit Date: 05/11/2024 08:45:00 PM Patient Name: Sha Lucio Visit Number: [id number] Discharge Date: 06/08/2024 07:31:00 PM ATTENTION: The Clinical Documentation Specialists (CDI) and [facility] Coding Staff appreciate your assistance in clarifying documentation. Please respond to the clarification below the line at the bottom and electronically sign. The CDI & [facility] Coding staff will review the response and follow-up if needed. Please note: Queries are made part of the Legal Health Record. If you have any questions, please contact the author of this message via ITS. Doctor/Provider: Citlalli Horn There is documentation of BLEperipheral arterial diseasenon-pressure ulcers legs and heels per previous query. Additional specificity regarding the severity of each peripheral arterial diseasenon-pressure ulcer is requested. 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, iliacstenosisand severe intrapoplitealstenosisL>R, fecal impaction Clinical Indicators: Bilateral SFAocclusion,severeCFA, iliacstenosis andsevereintrapoplitealstenosisL >R Treatment: 05/24 Sharpexcisional debridementBLEwound Left leg 14 x 5 x 0.4 cm to bone Right posterior proximal 14.3 x 3 x 0.3 cm to bone Right posterior distal 2.5 x 2 x 0.3 cm to subcutaneous tissue Right anterior chavez 3 x 0.7 x 0.2 cm to subcutaneous tissue Right anterior foot 1.5 x 1.2 x 0.2 cm to subcutaneous tissue 06/01 Excisional debridementbilateral lower extremitywound Left leg 14 x 4 x 0.4 cm to bone Right posterior proximal 13 x 3 x 0.3 cm to bone Placementof skin substitute to bilateral lower extremities, PuraPly 1000 mg, 6x 9 cm Please clarify the severity of the peripheral arterial diseasenon-pressure ulcers: Left Leg: [ ] Limited to breakdown of skin [ ] With fat layer exposed [ ] With necrosis of muscle [ ] With necrosis of bone [ ] Other, Please specify [ ] Unable to determine Right Leg: [ ] Limited to breakdown of skin [ ] With fat layer exposed [ ] With necrosis of muscle [ ] With necrosis of bone [ ] Other, Please specify [ ] Unable to determine Left Heel: [ ] Limited to breakdown of skin [ ] With fat layer exposed [ ] Other, Please specify Right Heel: [ ] Limited to breakdown of skin [ ] With fat layer exposed [ ] Other, Please specify [ ] Unable to determine (Template Last Revised: November 2020) All ulcerations related to pressure MTDD
--- NOTE | 2024-07-02 17:14 | CDI ---
Documentation Clarification Form Date: 07/02/2024 05:09:42 PM From: Jessica Morin Phone: Admit Date: 05/11/2024 08:45:00 PM Patient Name: Sha Lucio Visit Number: [id number] Discharge Date: 06/08/2024 07:31:00 PM ATTENTION: The Clinical Documentation Specialists (CDI) and [facility] Coding Staff appreciate your assistance in clarifying documentation. Please respond to the clarification below the line at the bottom and electronically sign. The CDI & [facility] Coding staff will review the response and follow-up if needed. Please note: Queries are made part of the Legal Health Record. If you have any questions, please contact the author of this message via ITS. Doctor/Provider: Coni Pathak Sepsisis documented Per ED and multiple Progress Notes early in the stay (Progress Note 05/14 19 pgs 5 04/21 paper chart Consult pg / paper chart) which may lack sufficient clinical evidence/support in the medical record. Additional clarification is requested. 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 Continues on Santyl and local woundcare of the sacrum. Is there an additional diagnosis that is clinically appropriate for this apatient? [ ]Sepsis, present on admission [ ]Sepsis,ruled out [ ]SIRS, without underlying infectious process [ x] Other, please specify __no sepsis [ ] Unable to determine SIRSCriteria: 2 or more of the following may indicateSIRS Temperature < 96.8F (36C) or > 101.0F (38.3C) Heart Rate > 90 bpm Respiratory Rate > 20 breaths/min or PaCO2 < 32 mmHg White Blood Cell Count > 12,000 or < 4,000 cells/mm3 or > 10% bands (Template Last Reviewed: September 2022) MTDD
--- NOTE | 2024-07-10 15:33 | US ---
Patient: Sha Lucio Ordering Physician: Unknown, Unknown ID: [id number] Phone, Pager: Phone: N/A Pager: N/A : 1960 Age/Gender: 64Y, F Primary Location: N/A Procedure: US arterial LE mult i level Study Date: 05/16/2024 12:37:00 PM EXAMINATION TYPE: US arterial UE multi level DATE OF EXAM: 05/18/2024 COMPARISON: NONE CLINICAL INDICATION: Unknown, old with history of ; TECHNIQUE: Bilateral cellulitis FINDINGS: Rt CORINNE 0.72 Lt CORINNE 0.73 IMPRESSION: Moderate arterial disease bilaterally. Refer to vascular specialist.
== END 2024-06-08 19:31 | DRG 364 ==
LOC: DISRECOVER 20:45 → 4SSUR 05-20 18:55
PROVIDERS: ADMIT Internal Medicine; ATTEND Internal Medicine
PROC: 0KBN0ZZ Excision of Right Hip Muscle, Open Approach (ICD-10-PCS; 2024-05-16)
PROC: 0JBN0ZZ Excision of Right Lower Leg Subcutaneous Tissue and Fascia, Open Approach (ICD-10-PCS; 2024-05-24)
PROC: 02HV33Z Insertion of Infusion Device into Superior Vena Cava, Percutaneous Approach (ICD-10-PCS; 2024-05-24)
PROC: 0QBK0ZZ Excision of Left Fibula, Open Approach (ICD-10-PCS; principal; 2024-05-24 09:30)
PROC: 0QBK0ZZ Excision of Left Fibula, Open Approach (ICD-10-PCS; 2024-06-01)
PROC: 0QBJ0ZZ Excision of Right Fibula, Open Approach (ICD-10-PCS; 2024-06-01)
PROC: 2W2MX4Z Dressing of Left Lower Extremity using Bandage (ICD-10-PCS; 2024-06-01)
PROC: 2W2LX4Z Dressing of Right Lower Extremity using Bandage (ICD-10-PCS; 2024-06-01)
DX: L89.154 Pressure ulcer of sacral region, stage 4 (principal); E44.0 Moderate protein-calorie malnutrition; I70.263 Atherosclerosis of native arteries of extremities with gangrene, bilateral legs; E11.52 Type 2 diabetes mellitus with diabetic peripheral angiopathy with gangrene; E11.649 Type 2 diabetes mellitus with hypoglycemia without coma; L97.826 Non-pressure chronic ulcer of other part of left lower leg with bone involvement without evidence of necrosis; L97.816 Non-pressure chronic ulcer of other part of right lower leg with bone involvement without evidence of necrosis; E11.51 Type 2 diabetes mellitus with diabetic peripheral angiopathy without gangrene; K56.41 Fecal impaction; E11.65 Type 2 diabetes mellitus with hyperglycemia; J44.9 Chronic obstructive pulmonary disease, unspecified; I10 Essential (primary) hypertension; B95.2 Enterococcus as the cause of diseases classified elsewhere; E78.5 Hyperlipidemia, unspecified; Z16.21 Resistance to vancomycin; L89.894 Pressure ulcer of other site, stage 4; Z79.4 Long term (current) use of insulin; L89.629 Pressure ulcer of left heel, unspecified stage; L89.619 Pressure ulcer of right heel, unspecified stage; R52 Pain, unspecified; B95.62 Methicillin resistant Staphylococcus aureus infection as the cause of diseases classified elsewhere; B96.89 Other specified bacterial agents as the cause of diseases classified elsewhere; B96.1 Klebsiella pneumoniae [K. pneumoniae] as the cause of diseases classified elsewhere; B96.5 Pseudomonas (aeruginosa) (mallei) (pseudomallei) as the cause of diseases classified elsewhere; B95.61 Methicillin susceptible Staphylococcus aureus infection as the cause of diseases classified elsewhere; Z68.1 Body mass index [BMI] 19.9 or less, adult; Z86.711 Personal history of pulmonary embolism; Z79.891 Long term (current) use of opiate analgesic
CPT/HCPCS: 36573; 75635; 80048; 80053; 80202; 82565; 83735; 84132; 85025; 85652; 87040; 87070; 87075; 87077; 87186; 87205; 93923; 94640; 94760; 96374; 96375; 99285